=== PATIENT | female | born 1945 | race Caucasian/White ===

== ENCOUNTER 2020-06-09 15:15 | Outpatient (REF) | payer MEDICARE, OTHER, SELFPAY ==
--- NOTE | 2020-06-09 | MM_ITS ---
EXAMINATION: MM SCREENING DIGITAL BREAST TOMOSYNTHESIS, BILATERAL CLINICAL INFORMATION: Prior history left lumpectomy for breast cancer 2005 and right lumpectomy for breast cancer 1999. Due for yearly. COMPARISON: Mammography: 06/04/2019, 06/02/2018, 05/30/2017, 05/28/2016, 05/26/2015 TECHNIQUE: Digital breast tomosynthesis is performed in both the craniocaudal and mediolateral oblique views along with computer-aided detection (CAD). Synthesized 2D images are generated from the tomosynthesis. FINDINGS: There are scattered areas of fibroglandular density (ACR BI-RADS breast composition Category b). There are chronic post surgical changes in both breasts with bilateral scarring mid 12:30 o'clock left breast and posterior upper outer right breast. There is no significant mass or interval architectural abnormality or interval abnormal calcifications. There are no significant changes. IMPRESSION: No significant changes from prior studies. Bilateral surgical scarring. ASSESSMENT: BI-RADS 2: Benign RECOMMENDATION: Routine annual mammography screening. This patient's information was entered into a reminder system with a target due date for their next mammogram.
== END 2020-06-09 15:16 | disposition home or self-care (01) ==
LOC: HO.MAMMO 15:15
PROVIDERS: Visit Provider Internal Medicine Medical Oncology
DX: Z12.31 Encounter for screening mammogram for malignant neoplasm of breast (principal)
CPT/HCPCS: 77063; 77067; 78014

== ENCOUNTER 2020-06-14 12:43 | Outpatient (REF) | payer MEDICARE, OTHER, SELFPAY ==
--- NOTE | 2020-06-14 | MM_ITS ---
EXAMINATION: BONE DENSITOMETRY CLINICAL INDICATION: Osteopenia. COMPARISON: Previous BD dated 06/04/2019 and baseline BD dated 12/26/2007. TECHNIQUE: Using a [employer] DXA System (software version: 13.1) manufactured by [employer], dual-energy x-ray absorptiometry was performed of the lumbar spine and left hip. The images are of good technical quality. Summary results are attached. FINDINGS: AP SPINE L1-L4 (excluding L2): The data of L1-L4 has been changed to exclude the L2 vertebral body, because lumbar curvature and degenerative changes at this level may cause overestimation of lumbar spine density. Current: BMD 1.374 g/cm2, Z-score 2.6, T-score 1.7, normal, 4.3% decrease from previous, 9.1% increase from baseline (<5% change is not significant). Prior: BMD 1.436 g/cm2. Baseline: BMD 1.259 g/cm2. LEFT FEMUR, NECK: Current: BMD 0.782 g/cm2, Z-score -0.5, T-score -1.8, osteopenia. Prior: BMD 0.823 g/cm2. Baseline: BMD 0.986 g/cm2. LEFT FEMUR, TOTAL: Current: BMD 0.886 g/cm2, Z-score 0.1, T-score -1.0, normal, 4.6% decrease from previous, 18.9% decrease from baseline (<5% change is not significant). Prior: BMD 0.929 g/cm2. Baseline: BMD 1.092 g/cm2. IDENTIFIED RISK FACTORS: Early menopause, bilateral oophorectomy, osteoporosis, secondary osteoporosis, height loss, hysterectomy. HISTORY OF FRACTURE: None listed. MEDICATIONS: Calcium, vitamin D. IMPRESSION: 1. DIAGNOSIS: Osteopenia based on the lowest T-score value of -1.8 in the femoral neck applying World Health Organization criteria. 2. 10-YEAR FRACTURE RISK PREDICTION, FRAX: Major osteoporotic fracture (clinical spine, forearm, hip or shoulder) 11.3%. Hip fracture 2.4%. 3. Treatment Recommendations: NOF guidelines recommend consideration for treatment in postmenopausal women and men age 50 and older presenting with the following: -A hip or vertebral (clinical or morphometric) fracture. -T-score less than or equal to -2.5 at the femoral neck or spine after appropriate evaluation to exclude secondary causes. -Low bone mass at the hip or spine and a 10-year fracture probability by FRAX of greater than or equal to 3% for hip fracture or greater than or equal to 20% for major osteoporotic fracture based on the [place] adapted WHO algorithm. 4. Other Recommendations: All treatment decisions require clinical judgment and consideration of individual patient factors, including patient preferences, comorbidities, previous drug use, risk factors not captured in the FRAX model (e.g. frailty, falls, vitamin D deficiency, increased bone turnover, interval significant decline in bone density) and possible under or overestimation of fracture risk by FRAX. Additional medical evaluation for secondary cause of low bone mineral density may be appropriate. FUTURE SCAN RECOMMENDATION: People with diagnosed cases of osteoporosis or at high risk for fracture should have regular bone mineral density tests. For patients eligible for Medicare, routine testing is allowed once every 2 years. The testing frequency can be increased to one year for patients who have rapidly progressing disease, those who are receiving or discontinuing medical therapy to restore bone mass, or have additional risk factors.
== END 2020-06-14 12:44 | disposition home or self-care (01) ==
LOC: HO.MAMMO 12:43
PROVIDERS: PCP Family Medicine; Visit Provider Internal Medicine Medical Oncology
DX: Z13.820 Encounter for screening for osteoporosis (principal); M85.80 Other specified disorders of bone density and structure, unspecified site; Z78.0 Asymptomatic menopausal state; Z98.890 Other specified postprocedural states; Z79.899 Other long term (current) drug therapy
CPT/HCPCS: 77080

== ENCOUNTER 2020-06-30 11:07 | Outpatient (REF) | payer MEDICARE, OTHER, SELFPAY | END 2020-06-30 11:08 | disposition home or self-care (01) | LOC: HO.LNP 11:07 | PROVIDERS: Visit Provider Urology | DX: N39.0 Urinary tract infection, site not specified (principal) | CPT/HCPCS: 87086; 87088; 87186 ==

== ENCOUNTER 2020-07-12 15:43 | Outpatient (REF) | payer MEDICARE, OTHER, SELFPAY ==
--- NOTE | 2020-07-12 15:53 | CT_ITS ---
EXAMINATION: CT HEAD WITHOUT CONTRAST CLINICAL INFORMATION: Ataxia. Evaluate for subdural hematoma. COMPARISON: None TECHNIQUE: Contiguous axial imaging was performed from the skull base to vertex without intravenous administration of contrast. This CT examination was performed using dose optimization techniques as appropriate, variously including the following: *Automated exposure control *Adjustment of mA and/or kV according to patient size (this includes techniques or standardized protocols for targeted exams where dose is matched to indication/reason for exam; i.e. extremities or head) *Use of iterative reconstruction technique DLP: 870 mGy-cm FINDINGS: There is no evidence of an extra-axial collection. There is no evidence of intra-axial or extra-axial hemorrhage. The ventricles and extra-axial CSF spaces are appropriate. There is nonspecific periventricular white matter disease. No mass, mass effect or infarct is seen. Review of bone windows is normal. Visualized paranasal sinuses, mastoid air cells and middle ears are clear. There is a scalp hematoma over the left frontal bone. CT/CT head/brain wo con IMPRESSION: No acute intracranial findings. Scalp hematoma over the left frontal bone.
== END 2020-07-12 15:44 | disposition home or self-care (01) ==
LOC: HO.CT 15:43
PROVIDERS: Visit Provider Family Medicine
DX: R51.9 Headache, unspecified (principal); R27.0 Ataxia, unspecified
CPT/HCPCS: 70450

== ENCOUNTER → 2020-07-21 13:08 | Outpatient (BNVA) | payer MEDICARE, OTHER, SELFPAY | PROVIDERS: PCP Family Medicine; Referring Provider Family Medicine; Visit Provider Urology | DX: Z76.89 Persons encountering health services in other specified circumstances (principal) | CPT/HCPCS: Q3014 ==

== ENCOUNTER → 2020-07-26 15:22 | Outpatient (BNVA) | payer MEDICARE, OTHER, SELFPAY | PROVIDERS: PCP Family Medicine; Visit Provider Surgery | DX: Z86.000 Personal history of in-situ neoplasm of breast (principal) | CPT/HCPCS: 99212 ==

== ENCOUNTER 2020-07-30 10:40 | Outpatient (REF) | payer MEDICARE, OTHER, SELFPAY | END 2020-07-30 10:41 | disposition home or self-care (01) | LOC: HO.LNP 10:40 | PROVIDERS: Visit Provider Urology | DX: N39.0 Urinary tract infection, site not specified (principal) | CPT/HCPCS: 87086; 87088; 87186 ==

== ENCOUNTER 2020-08-23 10:19 | Outpatient (REF) | payer MEDICARE, OTHER, SELFPAY | END 2020-08-23 10:20 | disposition home or self-care (01) | LOC: HO.LNP 10:19 | PROVIDERS: Visit Provider Urology | DX: N39.0 Urinary tract infection, site not specified (principal) | CPT/HCPCS: 87086 ==

== ENCOUNTER 2020-09-06 09:42 | Outpatient (REF) | payer MEDICARE, OTHER, SELFPAY | END 2020-09-06 09:43 | disposition home or self-care (01) | LOC: HO.LNP 09:42 | PROVIDERS: Visit Provider Urology | DX: N39.0 Urinary tract infection, site not specified (principal) | CPT/HCPCS: 87086 ==

== ENCOUNTER → 2020-09-07 15:50 | Outpatient (BNV) | payer MEDICARE, OTHER, SELFPAY | PROVIDERS: PCP Family Medicine; Visit Provider Internal Medicine Medical Oncology | DX: C91.10 Chronic lymphocytic leukemia of B-cell type not having achieved remission (principal); C50.919 Malignant neoplasm of unspecified site of unspecified female breast | CPT/HCPCS: 99212; 99213; 99214 ==

== ENCOUNTER 2020-09-29 09:00 | Outpatient (REF) | payer MEDICARE, OTHER, SELFPAY | END 2020-09-29 09:01 | disposition home or self-care (01) | LOC: HO.MDS 09:00 | PROVIDERS: PCP Family Medicine; Visit Provider Internal Medicine Medical Oncology | DX: D80.1 Nonfamilial hypogammaglobulinemia (principal) | CPT/HCPCS: 96360; 96361; 96365; 96366; 96375; J1572; Q0163 ==

== ENCOUNTER 2020-10-12 08:25 | Outpatient (REF) | payer MEDICARE, OTHER, SELFPAY ==
[2020-10-12 09:48] LABS: Estimated Average Glucose 148 mg/dL; Hemoglobin A1c % 6.8 %
[2020-10-12 09:55] LABS: Alanine Aminotransferase 15 U/L (0-31); Anion Gap 15 (12-20); Blood Urea Nitrogen 18 mg/dL (9-16); Carbon Dioxide 27 mmol/L (22-29); Chloride 101 mmol/L (96-108); Cholesterol 163 mg/dL; Estimated Glomerular Filt Rate 53; Glucose Fasting 178 mg/dL (60-99); HDL Cholesterol 40 mg/dL; LDL Cholesterol Calculated 86 mg/dl; Potassium 4.6 mmol/L (3.3-5.1); Sodium 138 mmol/L (135-145); Triglycerides 188 mg/dL
[2020-10-12 13:37] LABS: Creatinine Urine 102.58 mg/dL; Microalbum/Creatinine Ratio Ur 22.4 ug/mg cr
== END 2020-10-12 08:26 | disposition home or self-care (01) ==
LOC: HO.LAB 08:25
PROVIDERS: PCP Family Medicine; Visit Provider Family Medicine
DX: I10 Essential (primary) hypertension (principal); E11.9 Type 2 diabetes mellitus without complications; E78.00 Pure hypercholesterolemia, unspecified; Z79.899 Other long term (current) drug therapy
CPT/HCPCS: 36415; 80051; 80061; 82043; 82550; 82565; 82947; 83036; 84460; 84520

== ENCOUNTER 2020-10-20 10:52 | Outpatient (REF) | payer MEDICARE, OTHER, SELFPAY ==
--- NOTE | ~2020-10-20 | XR_ITS ---
EXAMINATION: XR CHEST CLINICAL INFORMATION: SOB. COMPARISON: None TECHNIQUE: 2 views of the chest were obtained. FINDINGS: No significant abnormality is noted involving the heart, lungs, mediastinum, bony thorax or soft tissues. XR/XR chest 2V IMPRESSION: Unremarkable chest examination.
== END 2020-10-20 10:53 | disposition home or self-care (01) ==
LOC: HO.XRAY 10:52
PROVIDERS: PCP Family Medicine; Visit Provider Family Medicine
DX: R06.02 Shortness of breath (principal)
CPT/HCPCS: 71046

== ENCOUNTER → 2020-10-21 13:49 | Outpatient (BNVA) | payer MEDICARE, OTHER, SELFPAY | PROVIDERS: PCP Family Medicine; Visit Provider Urology | DX: Z13.89 Encounter for screening for other disorder (principal) | CPT/HCPCS: Q3014 ==

== ENCOUNTER 2020-10-28 09:14 | Outpatient (REF) | payer MEDICARE, OTHER, SELFPAY | END 2020-10-28 09:15 | disposition home or self-care (01) | LOC: HO.MDS 09:14 | PROVIDERS: PCP Family Medicine; Visit Provider Internal Medicine Medical Oncology | DX: D80.1 Nonfamilial hypogammaglobulinemia (principal) | CPT/HCPCS: 96361; 96365; 96366; 96375; J1572; Q0163 ==

== ENCOUNTER 2020-12-02 09:25 | Outpatient (REF) | payer MEDICARE, OTHER, SELFPAY | END 2020-12-02 09:26 | disposition home or self-care (01) | LOC: HO.MDS 09:25 | PROVIDERS: PCP Family Medicine; Visit Provider Internal Medicine Medical Oncology | DX: D80.1 Nonfamilial hypogammaglobulinemia (principal) | CPT/HCPCS: 96360; 96361; 96365; 96366; 96375; J1572; Q0163 ==

== ENCOUNTER 2020-12-19 18:09 | Outpatient (REF) | payer MEDICARE, OTHER, SELFPAY | END 2020-12-19 18:10 | disposition home or self-care (01) | LOC: HO.LNP 18:09 | PROVIDERS: Visit Provider Urology | DX: N39.0 Urinary tract infection, site not specified (principal) | CPT/HCPCS: 87086; 87088; 87186 ==

== ENCOUNTER 2020-12-30 09:24 | Outpatient (REF) | payer MEDICARE, OTHER, SELFPAY | END 2020-12-30 09:25 | disposition home or self-care (01) | LOC: HO.MDS 09:24 | PROVIDERS: PCP Family Medicine; Visit Provider Internal Medicine Medical Oncology | DX: D80.1 Nonfamilial hypogammaglobulinemia (principal) | CPT/HCPCS: 87086; 87088; 87186; 96360; 96361; 96365; 96366; 96375; J1572; Q0163 ==

== ENCOUNTER 2021-02-02 08:58 | Outpatient (REF) | payer MEDICARE, OTHER, SELFPAY | END 2021-02-02 08:59 | disposition home or self-care (01) | LOC: HO.MDS 08:58 | PROVIDERS: PCP Family Medicine; Visit Provider Internal Medicine Medical Oncology | DX: D80.1 Nonfamilial hypogammaglobulinemia (principal) | CPT/HCPCS: 96360; 96361; 96365; 96366; 96375; J1572; Q0163 ==

== ENCOUNTER 2021-02-13 08:48 | Outpatient (REF) | payer MEDICARE, OTHER, SELFPAY | END 2021-02-13 08:49 | disposition home or self-care (01) | LOC: HO.LNP 08:48 | PROVIDERS: Visit Provider Urology | DX: Z13.89 Encounter for screening for other disorder (principal) | CPT/HCPCS: 87086 ==

== ENCOUNTER 2021-02-14 10:28 | Outpatient (REF) | payer MEDICARE, OTHER, SELFPAY | END 2021-02-14 10:29 | disposition home or self-care (01) | LOC: HO.LNP 10:28 | PROVIDERS: Visit Provider Urology | DX: N39.0 Urinary tract infection, site not specified (principal) | CPT/HCPCS: 87086; 87088; 87186 ==

== ENCOUNTER 2021-03-02 08:58 | Outpatient (REF) | payer MEDICARE, OTHER, SELFPAY | END 2021-03-02 08:59 | disposition home or self-care (01) | LOC: HO.MDS 08:58 | PROVIDERS: PCP Family Medicine; Visit Provider Internal Medicine Medical Oncology | DX: D80.1 Nonfamilial hypogammaglobulinemia (principal) | CPT/HCPCS: 96360; 96365; 96366; 96374; J1572; Q0163 ==

== ENCOUNTER 2021-03-07 10:58 | Outpatient (REF) | payer MEDICARE, OTHER, SELFPAY | END 2021-03-07 10:59 | disposition home or self-care (01) | LOC: HO.LNP 10:58 | PROVIDERS: Visit Provider Urology | DX: N39.0 Urinary tract infection, site not specified (principal) | CPT/HCPCS: 87086; 87088; 87186 ==

== ENCOUNTER 2021-03-23 14:51 | Outpatient (REF) | payer MEDICARE, OTHER, SELFPAY ==
[2021-03-23 17:17] LABS: Hematocrit 35.6 % (37-47); Mean Corpuscular HGB Conc 30.9 g/dl (31.0-35.0); Mean Corpuscular Hemoglobin 26.2 pg (27.0-33.0); Mean Corpuscular Volume 84.8 fL (80-98); Mean Platelet Volume 11.6 fL (9.4-12.3); Platelet Count 170 X10*3/uL (160-400); Red Cell Distribution Width 15.8 % (11.0-16.0); White Blood Count 8.7 X10*3/uL (4.8-10.8)
== END 2021-03-23 14:52 | disposition home or self-care (01) ==
LOC: HO.LAB 14:51
PROVIDERS: PCP Family Medicine; Visit Provider Nurse Practitioner Family
DX: K21.9 Gastro-esophageal reflux disease without esophagitis (principal); D64.9 Anemia, unspecified; Z12.11 Encounter for screening for malignant neoplasm of colon
CPT/HCPCS: 36415; 85027; 99202

== ENCOUNTER 2021-03-24 09:14 | Outpatient (REF) | payer MEDICARE, OTHER, SELFPAY | END 2021-03-24 09:15 | disposition home or self-care (01) | LOC: HO.LNP 09:14 | PROVIDERS: Visit Provider Nurse Practitioner Family | DX: K21.9 Gastro-esophageal reflux disease without esophagitis (principal) | CPT/HCPCS: 87338 ==

== ENCOUNTER → 2021-04-05 09:32 | Outpatient (BNVA) | payer MEDICARE, OTHER, SELFPAY | PROVIDERS: Visit Provider Nurse Practitioner Family | DX: Z13.89 Encounter for screening for other disorder (principal) | CPT/HCPCS: Q3014 ==

== ENCOUNTER 2021-04-11 09:14 | Outpatient (REF) | payer MEDICARE, OTHER, SELFPAY | END 2021-04-11 09:15 | disposition home or self-care (01) | LOC: HO.LNP 09:14 | PROVIDERS: Visit Provider Urology | DX: N39.0 Urinary tract infection, site not specified (principal) | CPT/HCPCS: 87086 ==

== ENCOUNTER → 2021-04-19 14:05 | Outpatient (BNVA) | payer MEDICARE, OTHER, SELFPAY | PROVIDERS: Visit Provider Internal Medicine | DX: Z01.810 Encounter for preprocedural cardiovascular examination (principal); R07.2 Precordial pain; R06.02 Shortness of breath; I10 Essential (primary) hypertension; E11.8 Type 2 diabetes mellitus with unspecified complications; E78.5 Hyperlipidemia, unspecified | CPT/HCPCS: 93005; 99202 ==

== ENCOUNTER → 2021-04-20 13:32 | Outpatient (BNVA) | payer MEDICARE, OTHER, SELFPAY | PROVIDERS: Visit Provider Urology | CPT/HCPCS: Q3014 ==

== ENCOUNTER → 2021-05-01 09:14 | Outpatient (REF) | payer MEDICARE, OTHER, SELFPAY ==
--- NOTE | ~2021-05-01 | NM_ITS ---
Myocardial perfusion study Indication: Shortness of breath evaluate for myocardial ischemia Technique: The patient was brought in for a Lexiscan perfusion study on 05/01/2021. Patient performed low-level exercise and was injected 0.4 mg of Lexiscan intravenously. Within a minute of injection, 30 mCi of sestamibi was given intravenously. Images were obtained using the SPECT gamma camera interlaced with the gating device. Images were obtained in supine position. Resting perfusion study was performed on 05/02/2021. Patient was administered 30 mCi of sestamibi intravenously at rest. Images were then obtained in supine position. Images obtained with and without CT attenuation. Total DLP 117 mGy-cm. Images were processed with the software and compared side to side in short axis, horizontal long axis and vertical long axis views. Findings: The stress perfusion study showed nonattenuated images show mildly reduced uptake in the inferior wall more prominent in the inferoapical wall of the LV myocardium. Remainder of the LV myocardium is normally perfused. Attenuation corrected images show moderately reduced uptake in the apex of the LV myocardium.. The gated study shows normal LV systolic function with calculated LVEF of 61%. LV cavity is normal in size. The gated study shows normal systolic wall thickening and contraction of segments. Resting study shows nontender images show partial improvement in uptake in the inferoapical wall of the LV myocardium. Attenuation corrected images show mildly reduced uptake in the apex of the LV myocardium. Gating at rest reveals systolic wall motion with ejection fraction at 56%. The findings are consistent with equivocal for possible apical ischemia.. NM/NM cardiolite stress test Impression: 1. Myocardial perfusion imaging study shows equivocal apical ischemia 2. Gated LVEF is 61% 3. Transient ischemic dilatation not present EKG is nondiagnostic for ischemia
--- NOTE | 2021-05-01 09:36 | CA_ITS ---
Acquisition Time: 2021-05-01 09:33:36 Total Exercise Time: 00:02:00 Test Indications: CP, SOB Medications: SEE CHART Protocol: LEXISCAN Max HR: 095 BPM 65% of Pred: 146 BPM Max BP: 178/070 mmHG Max Work Load: 1.0 METS Pharmacological stress test with Lexiscan injection, while sitting and kicking her legs, without anginal symptoms, without arrythmia, with normotensive response to injection, with nondiagnostic EKG for ischemia. In recovery there were two brief pauses: 1.68 and 1.8 sec. She was given Aminophylline 75mg IVP to reverse Lexiscan. Nuclear images pending. Test reviewed with Dr Cameron. Referred By: Gerardo Agustin Overread By: ROSEMARIE LUEVANO
== END ==
LOC: HO.CARD 09:14
PROVIDERS: PCP Family Medicine; Visit Provider Internal Medicine
DX: Z01.810 Encounter for preprocedural cardiovascular examination (principal); I20.9 Angina pectoris, unspecified; R06.02 Shortness of breath
CPT/HCPCS: 78452; 93017; A9500; J0280; J2785

== ENCOUNTER 2021-05-08 11:15 | Outpatient (REF) | payer MEDICARE, OTHER, SELFPAY | END 2021-05-08 11:16 | disposition home or self-care (01) | LOC: HO.LNP 11:15 | PROVIDERS: Visit Provider Urology | DX: N39.0 Urinary tract infection, site not specified (principal) | CPT/HCPCS: 87086; 87088; 87186 ==

== ENCOUNTER 2021-05-16 16:37 | Outpatient (REF) | payer MEDICARE, OTHER, SELFPAY | END 2021-05-16 16:38 | disposition home or self-care (01) | LOC: HO.LAB 16:37 | PROVIDERS: PCP Family Medicine; Visit Provider Urology | DX: N39.0 Urinary tract infection, site not specified (principal) | CPT/HCPCS: 87086; 87088; 87186 ==

== ENCOUNTER → 2021-05-24 13:37 | Outpatient (REF) | payer MEDICARE, OTHER, SELFPAY ==
--- NOTE | 2021-05-24 13:40 | CA_ITS ---
Transthoracic Echocardiogram Patient (Last, First, Middle): Kaitlin Ortiz, Gender: Female Date of : 1945 Age: 75 Procedure Date: 05/24/2021 Procedure Type: Transthoracic Echocardiogram Location: OP Height: 165.1 cm Weight: 92.53 kg BSA: 1.99 m2 Heart Rate: bpm BP: 175 / 82 mmHg Manager Managed Backup Services: YANELY/veena Referring MD: Gerardo Agustin MD Window Shade Installer: Kirill Morales MD Symptoms: Z01.810 - Encounter for preprocedural cardiovascular exam... Study Quality: Fair ECG Rhythm: Sinus Conclusions: - 1. Normal LV systolic function mild LVH and moderate asymmetric septal hypertrophy with impaired relaxation 2. Mild aortic regurgitation 3. Normal RV systolic pressure 4. No gross pericardial effusion Findings Left Ventricle Normal left ventricular size and systolic function. There is mildly increased left ventricular wall thickness. The visually estimated ejection fraction is between 55-60%. Spectral Doppler is indicative of an impaired relaxation filling pattern. E/E prime ratio is between 8 and 15 consistent with indeterminate filling pressures. There is moderate septal asymmetric hypertrophy. Right Ventricle Normal right ventricular cavity size and systolic function. Atria The left atrium is mildly dilated. Interatrial shunt cannot be excluded. The right atrium is likely dilated. Aortic Valve There is mild calcification of the aortic valve. There is mild thickening of the aortic valve. There is no aortic valve stenosis. There is mild aortic valve regurgitation. Mitral Valve There is mild anterior and posterior mitral leaflet thickening. There is mild mitral annular calcification. There is trace mitral valve regurgitation. There is no mitral valve stenosis. Pulmonic Valve The pulmonic valve was not well visualized. Tricuspid Valve Likely normal tricuspid valve structure and function. There is trace tricuspid valve regurgitation. The right ventricular systolic pressure is normal. The right ventricular systolic pressure is 8 mmHg. Normal right atrial pressure. There is no evidence of pulmonary hypertension. Great Vessels All visible segments of the aorta are normal in size. The pulmonary artery was not well visualized. Venous The inferior vena cava is normal in size and collapses greater than 50% with inspiration. Pericardium/Pleural There is no evidence of pericardial effusion. Prior Study Comparison No significant change compared to prior study dated: 08/20/2016. Measurements 2D Linear Measurements IVSd: 1.59 0.6-0.9/0.6-1.0 cm LVIDd: 4.35 3.9-5.3/4.2-5.9 cm LVIDd Index: 2.19 2.4-3.2/2.2-3.1 cm/m2 LVPWd: 1.19 0.7-1.1 cm Ao Root: 3.00 2.1-3.5 cm LV Mass: 291.36 67-162/88-224 g LV Mass Index: 146.41 43-95/49-115 g/m2 LVOT Diam: 2.10 3.0+(-)1.3 cm 2D Systolic Function EF 4C: 59.60 >55% EF 2C: 59.10 >55% EF BiP: 58.80 >55% Mitral Valve MV Pk E: 0.85 MV PK A: 1.39 MV Decel Time: 332.00 E/A: 0.60 E'Lateral: 6.64 E'Medial: 6.96 E/E' Med: 12.20 E/E' Lat: 12.80 PHT: 97.00 MVA PHT: 2.27 Decel Stanley: 2.56 Aortic Valve AoV Pk Rolly: 2.11 AoV Mn Rolly: 1.50 AoV VTI: 0.44 AoV Pk Grad: 18.00 Aov Mn Grad: 10.00 INGRID Cont.VTI: 1.73 LVOT LVOT Pk Rolly: 1.03 LVOT Mn Rolly: 0.72 LVOT VTI: 0.22 LVOT Pk Grad: 4.00 LVOT Mn Grad: 2.00 LVOT Diam: 2.10 LVOT Area: 3.46 Diastolic Function MV Pk E: 0.85 MV Pk A: 1.39 E/A: 0.60 E'Medial: 6.96 E/E' Med: 12.20 E' Laterial: 6.64 E/E' Lat: 12.80 Tricuspid Valve TR Pk Rolly: 1.14 TR Pk Grad: 5.00 RA Press: 3.00 RVSP: 8.00 Great Vessels Aorta Ao Root-2D: 3.00 2.0-3.7 cm Ao Asc: 3.30 2.1-3.4 cm Updated in Other Vendor System with Status of Final Kirill Morales MD electronically signed on 05/25/2021 8:49:32 AM with status of Final
== END ==
LOC: HO.CARD 13:37
PROVIDERS: Visit Provider Internal Medicine
DX: Z01.810 Encounter for preprocedural cardiovascular examination (principal)
CPT/HCPCS: 93306

== ENCOUNTER → 2021-05-31 12:48 | Outpatient (BNVA) | payer MEDICARE, OTHER, SELFPAY | PROVIDERS: PCP Family Medicine; Visit Provider Internal Medicine | DX: Z01.810 Encounter for preprocedural cardiovascular examination (principal); I42.2 Other hypertrophic cardiomyopathy; I10 Essential (primary) hypertension; E11.8 Type 2 diabetes mellitus with unspecified complications; E78.5 Hyperlipidemia, unspecified; R94.39 Abnormal result of other cardiovascular function study | CPT/HCPCS: 99212 ==

== ENCOUNTER → 2021-06-16 10:35 | Outpatient (BNVA) | payer MEDICARE, OTHER, SELFPAY | PROVIDERS: PCP Family Medicine; Visit Provider Urology | DX: R33.9 Retention of urine, unspecified (principal) | CPT/HCPCS: Q3014 ==

== ENCOUNTER 2021-06-27 13:46 | Outpatient (REF) | payer MEDICARE, OTHER, SELFPAY ==
--- NOTE | ~2021-06-27 | MM_ITS ---
EXAMINATION: MM SCREENING DIGITAL BREAST TOMOSYNTHESIS, BILATERAL CLINICAL INFORMATION: Left lumpectomy for breast cancer, 2006. Right lumpectomy for breast cancer, 1999. Due for yearly. COMPARISON: Mammography: 06/09/2020, 06/04/2019, 06/02/2018, 05/30/2017 TECHNIQUE: Digital breast tomosynthesis is performed in both the craniocaudal and mediolateral oblique views along with computer-aided detection (CAD). Synthesized 2D images are generated from the tomosynthesis. FINDINGS: There are scattered areas of fibroglandular density (ACR BI-RADS breast composition Category b). There are post therapy changes in both breasts with stable scarring. Neither breast shows interval mass or interval architectural abnormality or developing density. Again, there has benign coarse calcifications in the scar left breast 12:00 position. Scattered benign coarse and vascular calcifications are present in each breast. No significant changes. MM/MM tomosynthesis screening BI IMPRESSION: No significant changes from prior exams. Bilateral post therapy changes. ASSESSMENT: BI-RADS 2: Benign RECOMMENDATION: Routine annual mammography screening. This patient's information was entered into a reminder system with a target due date for their next mammogram.
== END 2021-06-27 13:47 | disposition home or self-care (01) ==
LOC: HO.MAMMO 13:46
PROVIDERS: Visit Provider Internal Medicine Medical Oncology
DX: Z12.31 Encounter for screening mammogram for malignant neoplasm of breast (principal)
CPT/HCPCS: 77063; 77067

== ENCOUNTER → 2021-07-07 11:28 | Outpatient (BNVA) | payer MEDICARE, OTHER, SELFPAY | PROVIDERS: PCP Family Medicine; Visit Provider Nurse Practitioner Family | DX: Z12.11 Encounter for screening for malignant neoplasm of colon (principal); D64.9 Anemia, unspecified; K21.9 Gastro-esophageal reflux disease without esophagitis | CPT/HCPCS: 99212 ==

== ENCOUNTER 2021-07-10 13:02 | Outpatient (REF) | payer MEDICARE, OTHER, SELFPAY ==
[2021-07-10 14:08] LABS: MANUAL DIFF FLAG NO
[2021-07-10 14:18] LABS: Basophils Absolute Auto 0.1 X10*3/uL (0.0-0.2); Basophils Percent Auto 0.5 % (0-2); Eosinophils Absolute Auto 0.1 X10*3/uL (0.0-0.4); Eosinophils Percent Auto 1.3 % (0-4); Hematocrit 33.2 % (37.0-47.0); Hemoglobin 10.4 g/dl (12.0-16.0); Imm Gran Abs Auto 0.25 X10*3/uL (0.00-0.03); Imm Gran Pct Auto 2.6 % (0.0-0.4); Lymphocytes Absolute Auto 2.7 X10*3/uL (1.2-4.9); Lymphocytes Percent Auto 28.1 % (20-40); Mean Corpuscular HGB Conc 31.3 g/dl (31.0-35.0); Mean Corpuscular Hemoglobin 26.3 pg (27.0-33.0); Mean Corpuscular Volume 84.1 fL (80.0-98.0); Mean Platelet Volume 11.4 fL (9.4-12.3); Monocytes Absolute Auto 0.9 X10*3/uL (0.1-1.2); Monocytes Percent Auto 9.7 % (2-11); Neutrophils Absolute Auto 5.48 x10*3/uL (2.0-8.3); Neutrophils Percent Auto 57.8 % (45-73); Platelet Count 158 X10*3/uL (160-400); Red Blood Count 3.95 X10*6/uL (4.20-5.50); Red Cell Distribution Width 13.8 % (11.0-16.0); White Blood Count 9.5 X10*3/uL (4.8-10.8)
[2021-07-10 14:24] LABS: Prothrombin Time 11.5 SEC (9.9-13.0)
[2021-07-10 14:48] LABS: Anion Gap 12 (12-20); Blood Urea Nitrogen 20 mg/dL (9-16); Calcium 9.7 mg/dL (8.4-10.2); Carbon Dioxide 29 mmol/L (22-29); Chloride 103 mmol/L (96-108); Estimated Glomerular Filt Rate 43; Glucose Random 155 mg/dL (60-115); Sodium 139 mmol/L (135-145)
== END 2021-07-10 13:03 | disposition home or self-care (01) ==
LOC: HO.LAB 13:02
PROVIDERS: PCP Family Medicine; Visit Provider Internal Medicine
DX: Z01.810 Encounter for preprocedural cardiovascular examination (principal); E11.8 Type 2 diabetes mellitus with unspecified complications; I10 Essential (primary) hypertension; E78.5 Hyperlipidemia, unspecified; I42.2 Other hypertrophic cardiomyopathy; I25.10 Atherosclerotic heart disease of native coronary artery without angina pectoris; R94.39 Abnormal result of other cardiovascular function study
CPT/HCPCS: 36415; 80048; 85025; 85610; 99212

== ENCOUNTER 2021-07-24 09:54 | Outpatient (REF) | payer MEDICARE, OTHER, SELFPAY | END 2021-07-24 09:55 | disposition home or self-care (01) | LOC: HO.LNP 09:54 | PROVIDERS: Visit Provider Urology | DX: N39.0 Urinary tract infection, site not specified (principal) | CPT/HCPCS: 87086; 87088; 87186 ==

== ENCOUNTER → 2021-07-27 11:23 | Outpatient (BNVA) | payer MEDICARE, OTHER, SELFPAY | PROVIDERS: PCP Family Medicine; Visit Provider Urology | CPT/HCPCS: Q3014 ==

== ENCOUNTER → 2021-08-01 13:24 | Outpatient (BNVA) | payer MEDICARE, OTHER, SELFPAY | PROVIDERS: PCP Family Medicine; Visit Provider Internal Medicine | DX: Z01.810 Encounter for preprocedural cardiovascular examination (principal); I25.10 Atherosclerotic heart disease of native coronary artery without angina pectoris; I10 Essential (primary) hypertension; I42.2 Other hypertrophic cardiomyopathy; E11.8 Type 2 diabetes mellitus with unspecified complications; E78.5 Hyperlipidemia, unspecified | CPT/HCPCS: 99212 ==

== ENCOUNTER 2021-08-31 12:53 | Outpatient (REF) | payer MEDICARE, OTHER, SELFPAY | END 2021-08-31 12:54 | disposition home or self-care (01) | LOC: HO.LNP 12:53 | PROVIDERS: Visit Provider Urology | DX: N39.0 Urinary tract infection, site not specified (principal) | CPT/HCPCS: 87086; 87088; 87186 ==

== ENCOUNTER 2021-09-04 09:26 | Day surgery (SDC) | payer MEDICARE, OTHER, SELFPAY ==
[2021-08-29 16:00] VITALS: BMI 35.6
--- NOTE | 2021-08-31 10:50 | P.CONAN_ITS ---
Documented by User: Tabby Garcia NP 08/31/21 10:54 HPI - Anesthesia Eval Consult details Narrative: 76yo F for Upper Endoscopy and Colonoscopy Cardiac cleared at [facility]. Cath 07/2021 Cardiac catheterization reviewed 70% mid-LAD stenosis; 70% OM 1 and 60% proximal RCA stenosis.? At this time, for medical management. *Multiple Med Allergies* PMFSH Active Problems Active Problems: All Active Problems (Updated 08/18/21 @ 13:42 by Armen Worthy MD) Neurogenic urinary bladder disorder (Acute) Atherosclerotic cardiovascular disease (Acute) Complicated urinary tract infection (Acute) Urinary retention with incomplete bladder emptying (Acute) Breast cancer (Acute) CLL (chronic lymphocytic leukemia) (Acute) Anemia (Acute) Anemia (Acute) Preoperative cardiovascular examination (Acute) Precordial chest pain (Acute) Shortness of breath (Acute) Type 2 diabetes mellitus with unspecified complications (Acute) Essential hypertension (Acute) Hyperlipidemia, unspecified (Acute) Diabetes with neurologic complications (Acute) Abnormal nuclear cardiac imaging test (Acute) Asymmetric septal hypertrophy (Acute) Abnormal myocardial perfusion study (Acute) Past Medical History Medical History Arthritis CLL (chronic lymphocytic leukemia) Diabetes mellitus Fibromyalgia History of bilateral breast cancer History of blood transfusion History of CVA (cerebrovascular accident) History of numbness Hypercholesterolemia Hypertension PONV (postoperative nausea and vomiting) Seasonal allergies Self-catheterizes urinary bladder Sleep apnea Family History Family History Other Breast cancer Heart disease Lung cancer Pancreatic cancer Surgical History Surgical History History of back surgery History of biopsy of bladder History of bladder repair surgery History of total hysterectomy Hx of colonoscopy S/P breast biopsy, right Social History Social History Alcohol intake: never Patient Tobacco Use Status: Never used Tobacco Use of substances other than those prescribed or required for medical reasons: No Are you DNR?: No Advance Directives: No Advance Directives Information Provided: Yes Meds Allergies Allergy/AdvReac Type Severity Reaction Status Date / Time amoxicillin [AMOXICILLIN] Allergy Severe stroke, Verified 08/01/21 13:27 blood clots ciprofloxacin [From CIPRO] Allergy Severe ANAPHYLAXIS Verified 08/01/21 13:27 Iodinated Contrast Media Allergy Severe HIVES Verified 08/01/21 13:27 [IV DYE, IODINE CONTAINING CONTRAST ] levofloxacin Allergy Severe Anaphylaxis Verified 08/01/21 13:27 liraglutide Allergy Severe Headache Verified 08/01/21 13:27 Penicillins Allergy Severe stroke, Verified 08/01/21 13:27 blood clots phenazopyridine [Pyridium] Allergy Severe Anaphylaxis Verified 08/01/21 13:27 celecoxib [From CELEBREX] Allergy Intermediate HIVES Verified 08/01/21 13:27 fluticasone [Advair Diskus] Allergy Intermediate Anxiety Verified 08/01/21 13:27 latex Allergy Intermediate Hives Verified 08/01/21 13:27 salmeterol [Advair Diskus] Allergy Intermediate Anxiety Verified 08/01/21 13:27 Tetanus Vaccines and Toxoid Allergy Intermediate Swelling Verified 08/01/21 13:27 cephalexin [Keflex] Allergy Mild Nausea Verified 08/01/21 13:27 Home Medications Medication Instructions Recorded Confirmed Last Taken Type citalopram 20 mg tablet 20 mg PO DAILY 07/21/20 08/18/21 Unknown History cyclobenzaprine 5 mg tablet 5 mg PO BEDTIME 07/21/20 08/18/21 Unknown History duloxetine 60 mg capsule,delayed 60 mg PO DAILY 07/21/20 08/18/21 Unknown History release spironolactone 25 mg tablet 25 mg PO DAILY 07/21/20 08/18/21 Unknown History ibrutinib 420 mg tablet (Imbruvica) 420 mg PO DAILY 09/07/20 08/18/21 Unknown History amlodipine 10 mg tablet 10 mg PO DAILY 03/23/21 08/18/21 Unknown History metformin 1,000 mg tablet 1,000 mg PO BID 04/19/21 08/18/21 Unknown History carvedilol 25 mg tablet 25 mg PO BID 05/31/21 08/18/21 Unknown History Magic Mouthwash 10 ml PO BID-TID PRN 06/21/21 08/18/21 Unknown History Diphen/Lido/Antacid 1:1:1 240 mL suspension ondansetron HCl 4 mg tablet 4 mg PO Q8H PRN 06/21/21 08/18/21 Unknown History (Zofran) fluocinonide 0.05 % topical cream 1 appl TOPICAL BID PRN 07/27/21 08/18/21 Unknown History pregabalin 150 mg capsule 150 mg PO BID 07/27/21 08/18/21 Unknown History sulindac 150 mg tablet 150 mg PO BID 07/27/21 08/18/21 Unknown History nitrofurantoin 100 mg PO BID PRN 08/18/21 08/18/21 Unknown History monohydrate/macrocrystals 100 mg capsule Exam Exam Date and Time: August 31, 2021 1051 Height,Weight and Vital Signs: Height 5 ft 4 in Weight 94.347 kg Pertinent Lab Results Pertinent Lab Results: Laboratory Tests 08/18/21 08/18/21 13:14 13:14 WBC 8.1 Hgb 10.0 L Hct 32.0 L Plt Count 131 L Sodium 138 Potassium 4.5 Chloride 101 Carbon Dioxide 29 BUN 19 H Creatinine 1.28 Narrative Narrative: EKG 04/2021 sinus rhythm at 72/Min; leftward axis; nonspecific ST-T changes NM cardiolite stress test 04/2021 Impression: ? 1.? Myocardial perfusion imaging study shows equivocal apical ischemia 2.? Gated LVEF is 61% 3. Transient ischemic dilatation not present ? EKG is nondiagnostic for ischemia ? ECHO 05/2021 Conclusions: - 1. Normal LV systolic function mild LVH and moderate asymmetric septal hypertrophy with impaired relaxation? 2. Mild aortic regurgitation ? 3. Normal RV systolic pressure ? 4. No gross pericardial effusion ? Assessment and Plan Assessment Anesthesia Assessment: Chart Reviewed Documented by User: Nick Mario 09/04/21 09:53 [facility] Past Medical History Medical History Arthritis CLL (chronic lymphocytic leukemia) Diabetes mellitus Fibromyalgia History of bilateral breast cancer History of blood transfusion History of CVA (cerebrovascular accident) History of numbness Hypercholesterolemia Hypertension PONV (postoperative nausea and vomiting) Seasonal allergies Self-catheterizes urinary bladder Sleep apnea Family History Family History Other Breast cancer Heart disease Lung cancer Pancreatic cancer Family history of problems with anesthesia: No Surgical History Surgical History History of back surgery History of biopsy of bladder History of bladder repair surgery History of total hysterectomy Hx of colonoscopy S/P breast biopsy, right History of Problems with Anesthesia: Yes (Ponv ) Social History Social History Alcohol intake: never Patient Tobacco Use Status: Never used Tobacco Use of substances other than those prescribed or required for medical reasons: No Are you DNR?: No Advance Directives: No Advance Directives Information Provided: Yes Meds Allergies Allergy/AdvReac Type Severity Reaction Status Date / Time amoxicillin [AMOXICILLIN] Allergy Severe stroke, Verified 08/01/21 13:27 blood clots ciprofloxacin [From CIPRO] Allergy Severe ANAPHYLAXIS Verified 08/01/21 13:27 Iodinated Contrast Media Allergy Severe HIVES Verified 08/01/21 13:27 [IV DYE, IODINE CONTAINING CONTRAST ] levofloxacin Allergy Severe Anaphylaxis Verified 08/01/21 13:27 liraglutide Allergy Severe Headache Verified 08/01/21 13:27 Penicillins Allergy Severe stroke, Verified 08/01/21 13:27 blood clots phenazopyridine [Pyridium] Allergy Severe Anaphylaxis Verified 08/01/21 13:27 celecoxib [From CELEBREX] Allergy Intermediate HIVES Verified 08/01/21 13:27 fluticasone [Advair Diskus] Allergy Intermediate Anxiety Verified 08/01/21 13:27 latex Allergy Intermediate Hives Verified 08/01/21 13:27 salmeterol [Advair Diskus] Allergy Intermediate Anxiety Verified 08/01/21 13:27 Tetanus Vaccines and Toxoid Allergy Intermediate Swelling Verified 08/01/21 13:27 cephalexin [Keflex] Allergy Mild Nausea Verified 08/01/21 13:27 Home Medications Medication Instructions Recorded Confirmed Last Taken Type citalopram 20 mg tablet 20 mg PO DAILY 07/21/20 08/18/21 Unknown History cyclobenzaprine 5 mg tablet 5 mg PO BEDTIME 07/21/20 08/18/21 Unknown History duloxetine 60 mg capsule,delayed 60 mg PO DAILY 07/21/20 08/18/21 Unknown History release spironolactone 25 mg tablet 25 mg PO DAILY 07/21/20 08/18/21 Unknown History ibrutinib 420 mg tablet (Imbruvica) 420 mg PO DAILY 09/07/20 08/18/21 Unknown History amlodipine 10 mg tablet 10 mg PO DAILY 03/23/21 08/18/21 Unknown History metformin 1,000 mg tablet 1,000 mg PO BID 04/19/21 08/18/21 Unknown History carvedilol 25 mg tablet 25 mg PO BID 05/31/21 08/18/21 Unknown History Magic Mouthwash 10 ml PO BID-TID PRN 06/21/21 08/18/21 Unknown History Diphen/Lido/Antacid 1:1:1 240 mL suspension ondansetron HCl 4 mg tablet 4 mg PO Q8H PRN 06/21/21 08/18/21 Unknown History (Zoan) fluocinonide 0.05 % topical cream 1 appl TOPICAL BID PRN 07/27/21 08/18/21 Unknown History pregabalin 150 mg capsule 150 mg PO BID 07/27/21 08/18/21 Unknown History sulindac 150 mg tablet 150 mg PO BID 07/27/21 08/18/21 Unknown History nitrofurantoin 100 mg PO BID PRN 08/18/21 08/18/21 Unknown History monohydrate/macrocrystals 100 mg capsule Exam Airway Mallampati Class: II TM Dist: >3cm Neck ROM: Limited Denture: Upper and Lower Loose/Missing/Broken Teeth: Yes Heart: rrr Lungs: bl breath sounds Assessment and Plan Final Anesthetic Review Family History of Problems with Anesthesia: No History of Problems with Anesthesia: Yes (Ponv ) NPO: Yes ASA Class: III Final Preanesthetic Review: Vishnu Risks/Benef Reviewed Patient Risk: High Procedure Risk: Intermediate Anesthetic Plan Anesthetic Plan: MAC: Disposition: Standard PACU
--- NOTE | 2021-09-04 09:30 | MHC.SHP ---
Pre-Procedural Eval Section A Date of Service: 09/04/21 Section B Chief Complaint: Anemia ,Unspecified Details of Present Illness: mother with CRC Relevant Family History (Specify if Yes): Yes Relevant Social History: None Present Medications: see Short Stay Collaborative assessment Medical History: Significant History (Arthritis CLL (chronic lymphocytic leukemia) Diabetes mellitus Fibromyalgia History of bilateral breast cancer History of blood transfusion History of CVA (cerebrovascular accident) History of numbness Hypercholesterolemia Hypertension PONV (postoperative nausea and vomiting) Seasonal allergies Self) History of Previous Operations: Relevant previous surgery/procedure and date(s) (History of back surgery History of biopsy of bladder History of bladder repair surgery History of total hysterectomy Hx of colonoscopy S/P breast biopsy, right) Allergies: Allergies Allergy/AdvReac Type Severity Reaction Status Date / Time amoxicillin [AMOXICILLIN] Allergy Severe stroke, Verified 08/01/21 13:27 blood clots ciprofloxacin [From CIPRO] Allergy Severe ANAPHYLAXIS Verified 08/01/21 13:27 Iodinated Contrast Media Allergy Severe HIVES Verified 08/01/21 13:27 [IV DYE, IODINE CONTAINING CONTRAST ] levofloxacin Allergy Severe Anaphylaxis Verified 08/01/21 13:27 liraglutide Allergy Severe Headache Verified 08/01/21 13:27 Penicillins Allergy Severe stroke, Verified 08/01/21 13:27 blood clots phenazopyridine [Pyridium] Allergy Severe Anaphylaxis Verified 08/01/21 13:27 celecoxib [From CELEBREX] Allergy Intermediate HIVES Verified 08/01/21 13:27 fluticasone [Advair Diskus] Allergy Intermediate Anxiety Verified 08/01/21 13:27 latex Allergy Intermediate Hives Verified 08/01/21 13:27 salmeterol [Advair Diskus] Allergy Intermediate Anxiety Verified 08/01/21 13:27 Tetanus Vaccines and Toxoid Allergy Intermediate Swelling Verified 08/01/21 13:27 cephalexin [Keflex] Allergy Mild Nausea Verified 08/01/21 13:27 Plan I have reviewed the history and physical and performed a pertinent physical examination on my patient. No changes have occurred unless specified.
[2021-09-04] MEDS: Lactated Ringers 1,000 ML 100 ML IVCONT (10:06)
[2021-09-04 10:08] VITALS: BP 171/75; PULSE 66; RESP 18; TEMP 36.1; O2SAT 95
[2021-09-04 10:14] LABS: Glucose, Whole Blood 225 mg/dL (60-115)
--- NOTE | 2021-09-04 11:08 | P.BOP_ITS ---
Brief Operative Note Date of Service: 09/04/21 Pre-op diagnosis: anemia Post-op diagnosis: same Procedure: see op note Surgeon: Lamont Ceron MD Anesthesia: MAC Was an Diagnostic Radiologist used for this Procedure?: No Estimated blood loss (mL): 0 Condition: stable Disposition: PACU
--- NOTE | 2021-09-04 11:09 | W.PM.OPN ---
Operative Note Operative Note Date of Service: 09/04/21 Narrative: Operative Information Procedure Description: EGD, Colonoscopy FLEXIBLE TRANSORAL UPPER GASTROINTESTINAL ENDOSCOPY AND COLONOSCOPY PROCEDURE NOTE UPPER ENDOSCOPY Consent: Indications for the procedure and potential complications of bleeding, perforation, reaction to medications and missed diagnosis were discussed with the patient and informed consent was obtained. Instrument: Olympus GIF H 190 J mid size upper endoscope Monitoring: Vital signs and clinical assessment, continuous EKG monitoring, Pulse oximetry, Carbon Dioxide monitoring and blood pressure monitoring were done throughout the procedure. Procedure: The patient was placed in the left lateral decubitis position and pre-procedure medications were administered and a bite block was placed. The endoscope was inserted into the mouth and advanced under direct vision to the third part of duodenum. A careful inspection was made as the upper endoscope was withdrawn including a retroflexed examination of the proximal stomach; Findings and interventions are described below. Findings: Larynx:normal Esophagus: GE junction at 40 cm, diaphragm hiatus at 40 cm, mild LA grade A esophagitis noted at GRJ, bx taken as well as random esophagus bx Stomach: Many fundic gland polyps, one polyp had more gyrus type markings (Kudo pit pattern type IV) and this was removed with cold snare and retrieved with vickers net. Some areas of patchy erythema, biopsies were obtained. Grade 2 flap valve on retroflexed examination of the cardia with slightly lax LES. Duodenum: flattening of vili in the bulb with erythema, bx taken from duodenum, also large duodenal diverticulum noted Intervention: Biopsies as noted above COLONOSCOPY Instrument: Olympus variable stiffness pediatric scope 190L Colonoscopy Monitoring: Vital signs and clinical assessment, continuous EKG monitoring, Pulse oximetry, Carbon Dioxide monitoring and blood pressure monitoring were done throughout the procedure. Colon withdrawal time was 10 minutes. Procedure: The patient was placed in the left lateral decubitis position and pre-procedure medications were administered. After a digital rectal examination of the ano-rectum, the video colonoscope was inserted into the rectum and advanced through the colon to the cecum/TI. The colonoscope was slowly withdrawn in a retrograde panoramic fashion and the colon mucosa was carefully examined including a retroflexed view of the rectum. Findings and interventions are described below. Procedure Difficulty: difficult, lots of looping and redundancy Findings: severe diverticulosis ll over colon ro[place]e on the left side Terminal Ileum-not entered Cecum:normal Ascending Colon: normal Transverse Colon - x 2 sessile polyps 5-7 mm removed with forceps Descending Colon: 7-9 mm sessile polyp removed with cold snare Sigmoid Colon: one area with prominent fold, bx taken Rectum: Retroflexion with mdoerate sized internal hemorrhoids, grade I Anorectum - normal Colon preparation: [place] Bowel Preparation Scale Right colon; 2 Transverse colon: 2 Left colon; 1 (0 = Unprepared colon segment with mucosa not seen due to solid stool that cannot be cleared. 1 = Portion of mucosa of the colon segment seen, but other areas of the colon segment not well seen due to staining, residual stool and/or opaque liquid. 2 = Minor amount of residual staining, small fragments of stool and/or opaque liquid, but mucosa of colon segment seen well. 3 = Entire mucosa of colon segment seen well with no residual staining, small fragments of stool or opaque liquid) Impression and Post Procedure Diagnosis: Endoscopy Findings: duodenitis gastritis gastric polyps esophagitis Colonoscopy Findings: polyps internal hemorrhoids diverticular disease Plan: Await Pathology results Repeat Colonoscopy in 2-3 years due to left sided prep or earlier if clinically indicated High fiber diet leaflet avoid straining at stool, epsom salts and sitz bath, anusol supps or cream depending on path results may need celiac panel and h pylori testing Above findings were reviewed with the patient and relevant handouts were provided if indicated.
[2021-09-04 11:16] VITALS: BP 133/59; PULSE 65; RESP 15; TEMP 36.1; O2SAT 100
[2021-09-04 11:31] VITALS: BP 151/61; PULSE 62; RESP 16; TEMP 36.1; O2SAT 98
== END 2021-09-04 12:04 | disposition home or self-care (01) ==
PROVIDERS: PCP Family Medicine; Visit Provider Internal Medicine Gastroenterology
PROC: (CPT 45380; principal; 2021-09-04 10:10)
DX: Z12.11 Encounter for screening for malignant neoplasm of colon (principal); D64.9 Anemia, unspecified; K51.40 Inflammatory polyps of colon without complications; K57.30 Diverticulosis of large intestine without perforation or abscess without bleeding; K64.8 Other hemorrhoids; K21.9 Gastro-esophageal reflux disease without esophagitis; K20.80 Other esophagitis without bleeding; K29.50 Unspecified chronic gastritis without bleeding; K29.80 Duodenitis without bleeding; K31.7 Polyp of stomach and duodenum; K57.10 Diverticulosis of small intestine without perforation or abscess without bleeding; C91.10 Chronic lymphocytic leukemia of B-cell type not having achieved remission; I10 Essential (primary) hypertension; G47.33 Obstructive sleep apnea (adult) (pediatric); E11.9 Type 2 diabetes mellitus without complications; Z79.84 Long term (current) use of oral hypoglycemic drugs; Z79.82 Long term (current) use of aspirin; Z79.899 Other long term (current) drug therapy; Z85.3 Personal history of malignant neoplasm of breast; Z86.73 Personal history of transient ischemic attack (TIA), and cerebral infarction without residual deficits; Z88.0 Allergy status to penicillin; Z88.1 Allergy status to other antibiotic agents; Z88.8 Allergy status to other drugs, medicaments and biological substances; Z91.040 Latex allergy status; Z91.041 Radiographic dye allergy status
CPT/HCPCS: 45380; 82947; 88305; 88342; J2405

== ENCOUNTER → 2021-09-19 13:07 | Outpatient (BNVA) | payer MEDICARE, OTHER, SELFPAY | PROVIDERS: PCP Family Medicine; Visit Provider Nurse Practitioner Family | DX: K57.90 Diverticulosis of intestine, part unspecified, without perforation or abscess without bleeding (principal); K21.9 Gastro-esophageal reflux disease without esophagitis; D50.8 Other iron deficiency anemias | CPT/HCPCS: 99212 ==

== ENCOUNTER 2021-10-04 09:49 | Outpatient (REF) | payer MEDICARE, OTHER, SELFPAY | END 2021-10-04 09:50 | disposition home or self-care (01) | LOC: HO.LNP 09:49 | PROVIDERS: Visit Provider Urology | DX: N39.0 Urinary tract infection, site not specified (principal); B96.20 Unspecified Escherichia coli [E. coli] as the cause of diseases classified elsewhere; B95.8 Unspecified staphylococcus as the cause of diseases classified elsewhere | CPT/HCPCS: 87086; 87088; 87186 ==

== ENCOUNTER → 2021-10-06 08:22 | Outpatient (BNVA) | payer MEDICARE, OTHER, SELFPAY | PROVIDERS: PCP Family Medicine; Visit Provider Internal Medicine Gastroenterology ==

== ENCOUNTER 2021-10-23 05:57 | Day surgery (SDC) | payer MEDICARE, OTHER, SELFPAY ==
[2021-10-17 14:46] VITALS: BMI 35.6
--- NOTE | 2021-10-20 09:33 | HO.ANESPROP2 ---
Documented by User: Tabby Garcia NP 10/20/21 09:35 HPI - Anesthesia Eval Consult details Narrative: 76yo F for Insertion Suprapubic Tube Cardiac cleared at [facility]. Cath 07/2021 Cardiac catheterization reviewed 70% mid-LAD stenosis; 70% OM 1 and 60% proximal RCA stenosis.? At this time, for medical management. *Multiple Med Allergies* s/p EGD and [place] 08/2021 with MAC PMFSH Active Problems Active Problems: All Active Problems (Updated 10/17/21 @ 14:49 by Ivonne Hayes, [email or web address]) Complicated urinary tract infection (Acute) Urinary retention with incomplete bladder emptying (Acute) Breast cancer (Acute) CLL (chronic lymphocytic leukemia) (Acute) Anemia (Acute) Anemia (Acute) Preoperative cardiovascular examination (Acute) Precordial chest pain (Acute) Shortness of breath (Acute) Type 2 diabetes mellitus with unspecified complications (Acute) Essential hypertension (Acute) Hyperlipidemia, unspecified (Acute) Diabetes with neurologic complications (Acute) Abnormal nuclear cardiac imaging test (Acute) Asymmetric septal hypertrophy (Acute) Abnormal myocardial perfusion study (Acute) Atherosclerotic cardiovascular disease (Acute) Neurogenic urinary bladder disorder (Acute) Past Medical History Medical History Arthritis CLL (chronic lymphocytic leukemia) Diabetes mellitus Fibromyalgia History of bilateral breast cancer History of blood transfusion History of CVA (cerebrovascular accident) History of numbness Hypercholesterolemia Hypertension PONV (postoperative nausea and vomiting) Seasonal allergies Self-catheterizes urinary bladder Sleep apnea Wears dentures Family History Family History Other Breast cancer Heart disease Lung cancer Pancreatic cancer Family history of problems with anesthesia: No Surgical History Surgical History History of back surgery History of biopsy of bladder History of bladder repair surgery History of esophagogastroduodenoscopy (EGD) History of total hysterectomy Hx of colonoscopy S/P breast biopsy, right S/P left breast biopsy History of Problems with Anesthesia: Yes (Ponv ) Social History Social History Are you a primary disabilities caregiver to a significant other at home: No Do you presently have visiting nurse or other home services: No Alcohol intake: never Patient Tobacco Use Status: Never used Tobacco Use of substances other than those prescribed or required for medical reasons: No Have you been hit, kicked, punched, or otherwise hurt by someone within the past year? If so, by whom?: No Are you DNR?: No Advance Directives: No Advance Directives Information Provided: Yes Advance Directives on File: No Recently lost weight without trying: No Patient : No Meds Allergies Allergy/AdvReac Type Severity Reaction Status Date / Time amoxicillin [AMOXICILLIN] Allergy Severe stroke, Verified 10/23/21 06:10 blood clots ciprofloxacin [From CIPRO] Allergy Severe ANAPHYLAXIS Verified 10/23/21 06:10 Iodinated Contrast Media Allergy Severe HIVES Verified 10/23/21 06:10 [IV DYE, IODINE CONTAINING CONTRAST ] levofloxacin Allergy Severe Anaphylaxis Verified 10/23/21 06:10 liraglutide Allergy Severe Headache Verified 10/23/21 06:10 Penicillins Allergy Severe stroke, Verified 10/23/21 06:10 blood clots phenazopyridine [Pyridium] Allergy Severe Anaphylaxis Verified 10/23/21 06:10 FREYA Inhibitors Allergy Intermediate Cough Verified 10/23/21 06:10 ARB-Angiotensin Receptor Allergy Intermediate Cough Verified 10/23/21 06:10 Antagonist atorvastatin Allergy Intermediate Shortness Verified 10/23/21 06:10 of Breath cefpodoxime Allergy Intermediate Dizziness, Verified 10/23/21 06:10 nausea celecoxib [From CELEBREX] Allergy Intermediate HIVES Verified 10/23/21 06:10 doxazosin Allergy Intermediate Shortness Verified 10/23/21 06:10 of Breath fluticasone [Advair Diskus] Allergy Intermediate Anxiety Verified 10/23/21 06:10 gabapentin [From Neurontin] Allergy Intermediate Headache Verified 10/23/21 06:10 hydralazine Allergy Intermediate Shortness Verified 10/23/21 06:10 of Breath latex Allergy Intermediate Hives Verified 10/23/21 06:10 linezolid Allergy Intermediate Nausea and Verified 10/23/21 06:10 Vomiting meloxicam Allergy Intermediate Unknown Verified 10/23/21 06:10 salmeterol [Advair Diskus] Allergy Intermediate Anxiety Verified 10/23/21 06:10 Tetanus Vaccines and Toxoid Allergy Intermediate Swelling Verified 10/23/21 06:10 torsemide Allergy Intermediate Shortness Verified 10/23/21 06:10 of Breath cephalexin [Keflex] Allergy Mild Nausea Verified 10/23/21 06:10 Home Medications Medication Instructions Recorded Confirmed Last Taken Type citalopram 20 mg tablet 20 mg PO DAILY 07/21/20 10/17/21 10/23/21 05:30 History cyclobenzaprine 5 mg tablet 5 mg PO BEDTIME 07/21/20 10/17/21 Unknown History duloxetine 60 mg capsule,delayed 60 mg PO DAILY 07/21/20 10/17/21 10/23/21 05:30 History release spironolactone 25 mg tablet 25 mg PO DAILY 07/21/20 10/17/21 Unknown History ibrutinib 420 mg tablet (Imbruvica) 420 mg PO DAILY 09/07/20 10/17/21 Unknown History amlodipine 10 mg tablet 10 mg PO DAILY 03/23/21 10/17/21 10/23/21 05:30 History metformin 1,000 mg tablet 1,000 mg PO BID 04/19/21 10/17/21 Unknown History carvedilol 25 mg tablet 25 mg PO BID 05/31/21 10/17/21 10/23/21 05:30 History Magic Mouthwash 10 ml PO BID-TID PRN 06/21/21 10/17/21 Unknown History Diphen/Lido/Antacid 1:1:1 240 mL suspension ondansetron HCl 4 mg tablet 4 mg PO Q8H PRN 06/21/21 10/17/21 Unknown History (Zofran) fluocinonide 0.05 % topical cream 1 appl TOPICAL BID PRN 07/27/21 10/17/21 Unknown History pregabalin 150 mg capsule 150 mg PO BID 07/27/21 10/17/21 10/23/21 05:30 History sulindac 150 mg tablet 150 mg PO BID 07/27/21 10/17/21 Unknown History furosemide 20 mg tablet 2 tab PO QAM 10/17/21 10/17/21 Unknown History Exam Exam Date and Time: October 20, 2021 0933 Height,Weight and Vital Signs: Height 5 ft 4.5 in Weight 95.708 kg Pertinent Lab Results Pertinent Lab Results: Laboratory Tests ? 08/18/21 08/18/21 ? 13:14 13:14 WBC ?8.1 ? Hgb ?10.0 L ? Hct ?32.0 L ? Plt Count ?131 L ? Sodium ? ?138 Potassium ? ?4.5 Chloride ? ?101 Carbon Dioxide ? ?29 BUN ? ?19 H Creatinine ? ?1.28 Narrative Narrative: EKG 04/2021 sinus rhythm at 72/Min; leftward axis; nonspecific ST-T changes NM cardiolite stress test 04/2021 Impression: ? 1.? Myocardial perfusion imaging study shows equivocal apical ischemia 2.? Gated LVEF is 61% 3. Transient ischemic dilatation not present ? EKG is nondiagnostic for ischemia ? ECHO 05/2021 Conclusions: - 1. Normal LV systolic function mild LVH and moderate asymmetric septal hypertrophy with impaired relaxation? 2. Mild aortic regurgitation ? 3. Normal RV systolic pressure ? 4. No gross pericardial effusion ? Assessment and Plan Assessment Anesthesia Assessment: Chart Reviewed Final Anesthetic Review Family History of Problems with Anesthesia: No History of Problems with Anesthesia: Yes (Ponv ) Documented by User: Nick Mario 10/23/21 07:54 PMFSH Past Medical History Medical History Arthritis CLL (chronic lymphocytic leukemia) Diabetes mellitus Fibromyalgia History of bilateral breast cancer History of blood transfusion History of CVA (cerebrovascular accident) History of numbness Hypercholesterolemia Hypertension PONV (postoperative nausea and vomiting) Seasonal allergies Self-catheterizes urinary bladder Sleep apnea Wears dentures Family History Family History Other Breast cancer Heart disease Lung cancer Pancreatic cancer Surgical History Surgical History History of back surgery History of biopsy of bladder History of bladder repair surgery History of esophagogastroduodenoscopy (EGD) History of total hysterectomy Hx of colonoscopy S/P breast biopsy, right S/P left breast biopsy Social History Social History Are you a primary disabilities caregiver to a significant other at home: No Do you presently have visiting nurse or other home services: No Alcohol intake: never Patient Tobacco Use Status: Never used Tobacco Use of substances other than those prescribed or required for medical reasons: No Have you been hit, kicked, punched, or otherwise hurt by someone within the past year? If so, by whom?: No Are you DNR?: No Advance Directives: No Advance Directives Information Provided: Yes Advance Directives on File: No Recently lost weight without trying: No Patient : No Meds Allergies Allergy/AdvReac Type Severity Reaction Status Date / Time amoxicillin [AMOXICILLIN] Allergy Severe stroke, Verified 10/23/21 06:10 blood clots ciprofloxacin [From CIPRO] Allergy Severe ANAPHYLAXIS Verified 10/23/21 06:10 Iodinated Contrast Media Allergy Severe HIVES Verified 10/23/21 06:10 [IV DYE, IODINE CONTAINING CONTRAST ] levofloxacin Allergy Severe Anaphylaxis Verified 10/23/21 06:10 liraglutide Allergy Severe Headache Verified 10/23/21 06:10 Penicillins Allergy Severe stroke, Verified 10/23/21 06:10 blood clots phenazopyridine [Pyridium] Allergy Severe Anaphylaxis Verified 10/23/21 06:10 FREYA Inhibitors Allergy Intermediate Cough Verified 10/23/21 06:10 ARB-Angiotensin Receptor Allergy Intermediate Cough Verified 10/23/21 06:10 Antagonist atorvastatin Allergy Intermediate Shortness Verified 10/23/21 06:10 of Breath cefpodoxime Allergy Intermediate Dizziness, Verified 10/23/21 06:10 nausea celecoxib [From CELEBREX] Allergy Intermediate HIVES Verified 10/23/21 06:10 doxazosin Allergy Intermediate Shortness Verified 10/23/21 06:10 of Breath fluticasone [Advair Diskus] Allergy Intermediate Anxiety Verified 10/23/21 06:10 gabapentin [From Neurontin] Allergy Intermediate Headache Verified 10/23/21 06:10 hydralazine Allergy Intermediate Shortness Verified 10/23/21 06:10 of Breath latex Allergy Intermediate Hives Verified 10/23/21 06:10 linezolid Allergy Intermediate Nausea and Verified 10/23/21 06:10 Vomiting meloxicam Allergy Intermediate Unknown Verified 10/23/21 06:10 salmeterol [Advair Diskus] Allergy Intermediate Anxiety Verified 10/23/21 06:10 Tetanus Vaccines and Toxoid Allergy Intermediate Swelling Verified 10/23/21 06:10 torsemide Allergy Intermediate Shortness Verified 10/23/21 06:10 of Breath cephalexin [Keflex] Allergy Mild Nausea Verified 10/23/21 06:10 Home Medications Medication Instructions Recorded Confirmed Last Taken Type citalopram 20 mg tablet 20 mg PO DAILY 07/21/20 10/17/21 10/23/21 05:30 History cyclobenzaprine 5 mg tablet 5 mg PO BEDTIME 07/21/20 10/17/21 Unknown History duloxetine 60 mg capsule,delayed 60 mg PO DAILY 07/21/20 10/17/21 10/23/21 05:30 History release spironolactone 25 mg tablet 25 mg PO DAILY 07/21/20 10/17/21 Unknown History ibrutinib 420 mg tablet (Imbruvica) 420 mg PO DAILY 09/07/20 10/17/21 Unknown History amlodipine 10 mg tablet 10 mg PO DAILY 03/23/21 10/17/21 10/23/21 05:30 History metformin 1,000 mg tablet 1,000 mg PO BID 04/19/21 10/17/21 Unknown History carvedilol 25 mg tablet 25 mg PO BID 05/31/21 10/17/21 10/23/21 05:30 History Magic Mouthwash 10 ml PO BID-TID PRN 06/21/21 10/17/21 Unknown History Diphen/Lido/Antacid 1:1:1 240 mL suspension ondansetron HCl 4 mg tablet 4 mg PO Q8H PRN 06/21/21 10/17/21 Unknown History (Zofran) fluocinonide 0.05 % topical cream 1 appl TOPICAL BID PRN 07/27/21 10/17/21 Unknown History pregabalin 150 mg capsule 150 mg PO BID 07/27/21 10/17/21 10/23/21 05:30 History sulindac 150 mg tablet 150 mg PO BID 07/27/21 10/17/21 Unknown History furosemide 20 mg tablet 2 tab PO QAM 10/17/21 10/17/21 Unknown History Exam Airway Mallampati Class: III TM Dist: >3cm Neck ROM: Limited Denture: Upper and Lower Loose/Missing/Broken Teeth: Yes Heart: rrr Other: bl breath sounds Assessment and Plan Assessment Anesthesia Assessment: Anesthesia Plan Discussed Final Anesthetic Review NPO: Yes ASA Class: III Final Preanesthetic Review: Meds/Allgs Chart Reviewed and Anes Risks/Benef Reviewed Patient Risk: High Procedure Risk: Intermediate Anesthetic Plan Anesthetic Plan: MAC: Disposition: Standard PACU
[2021-10-23] VITALS (21 sets, daily range): BP systolic 134–159; BP diastolic 55–74; PULSE 59–67; RESP 16–17; TEMP 36.4–36.5; O2SAT 95–98
[2021-10-23 06:19] LABS: Glucose, Whole Blood 155 mg/dL (60-115)
[2021-10-23] MEDS: Lactated Ringers 1,000 ML 100 ML IVCONT (06:34)
--- NOTE | 2021-10-23 08:15 | W.PM.OPN ---
Operative Note Operative Note Date of Service: 10/23/21 Narrative: PreOperative Diagnosis:?neurogenic bladder Post Operative Diagnosis:?neurogenic bladder Procedure:? 1. Cystoscopy 2. Suprapubic tube placement Surgeon: Dr Ceferino Hayes Anesthesia:?Sedation plus local Indications for procedure: recurrent UTI with neurogenic bladder using CIC x3 a day Procedure: After informed consent was verified the patient was brought to the operating room and placed in a supine position.? Anesthesia was administered per protocol. The patient was placed in a modified dorsal lithotomy position and prepped and draped in a sterile fashion. A safety pause was performed confirming patient identity, procedure and antibiotics. A 22 Vincentian cystoscope was inserted per urethra. Bladder was examined in its entirety. No abnormalities seen. Air bubble was located at the dome of the bladder. A finder needle was inserted 2 fingerbreaths above the symphysis pubis on the abdomen into the bladder.? The needle was visualized in the bladder via cystoscopy. Local anesthetic was infiltrated subcutaneously around the needle introduction site. A small, 1cm horizontal incision was made.? A trocar introducer was advanced through the abdominal wall into the bladder under visualization. The obturator was removed and a 18 Fr scherer catheter placed. 7cc was used to inflate the balloon. The external portion of the trocar was removed. Dressing was placed, the bladder was emptied, and a drainage bag was attached. The patient tolerated the procedure and was transferred in stable condition to the recovery area. Suprapubic tube will be changed in 1 month with a follow-up office visit.
[2021-10-23] MEDS: oxyCODONE HCl Immed Release 5 MG TABLET PO (09:27)
--- NOTE | 2021-10-23 09:30 | MHC.SHP ---
Pre-Procedural Eval Section A Date of Service: 10/23/21 The patient is an INPATIENT: No Changes since office visit: No Cold of Flu in the past 2 weeks, No New Medical Problems, No Changes in Medication and No Patient answered all questions The History & Physical has been completed within 30 days and I have reviewed it.: No Section B Chief Complaint: urine retention Details of Present Illness: has urinary retention with recurrent UTI Relevant Social History: None Present Medications: see Short Stay Collaborative assessment Medical History: Significant History History of Previous Operations: No relevant previous surgery Allergies: Allergies Allergy/AdvReac Type Severity Reaction Status Date / Time amoxicillin [AMOXICILLIN] Allergy Severe stroke, Verified 10/23/21 06:10 blood clots ciprofloxacin [From CIPRO] Allergy Severe ANAPHYLAXIS Verified 10/23/21 06:10 Iodinated Contrast Media Allergy Severe HIVES Verified 10/23/21 06:10 [IV DYE, IODINE CONTAINING CONTRAST ] levofloxacin Allergy Severe Anaphylaxis Verified 10/23/21 06:10 liraglutide Allergy Severe Headache Verified 10/23/21 06:10 Penicillins Allergy Severe stroke, Verified 10/23/21 06:10 blood clots phenazopyridine [Pyridium] Allergy Severe Anaphylaxis Verified 10/23/21 06:10 FREYA Inhibitors Allergy Intermediate Cough Verified 10/23/21 06:10 ARB-Angiotensin Receptor Allergy Intermediate Cough Verified 10/23/21 06:10 Antagonist atorvastatin Allergy Intermediate Shortness Verified 10/23/21 06:10 of Breath cefpodoxime Allergy Intermediate Dizziness, Verified 10/23/21 06:10 nausea celecoxib [From CELEBREX] Allergy Intermediate HIVES Verified 10/23/21 06:10 doxazosin Allergy Intermediate Shortness Verified 10/23/21 06:10 of Breath fluticasone [Advair Diskus] Allergy Intermediate Anxiety Verified 10/23/21 06:10 gabapentin [From Neurontin] Allergy Intermediate Headache Verified 10/23/21 06:10 hydralazine Allergy Intermediate Shortness Verified 10/23/21 06:10 of Breath latex Allergy Intermediate Hives Verified 10/23/21 06:10 linezolid Allergy Intermediate Nausea and Verified 10/23/21 06:10 Vomiting meloxicam Allergy Intermediate Unknown Verified 10/23/21 06:10 salmeterol [Advair Diskus] Allergy Intermediate Anxiety Verified 10/23/21 06:10 Tetanus Vaccines and Toxoid Allergy Intermediate Swelling Verified 10/23/21 06:10 torsemide Allergy Intermediate Shortness Verified 10/23/21 06:10 of Breath cephalexin [Keflex] Allergy Mild Nausea Verified 10/23/21 06:10 Review of Systems Sugical H&P ROS: Negative: Constitution, Cardiovascular, Respiratory, Neurological, Psychiatric, Hem-Onc, Allergic/Immunologic, Gastrointestinal, Genitourinary, Musculoskeletal, Integumentary, Endocrine and Eyes/Ears/Nose/Throat Exam Surgical H&P Exam: Normal: HEENT, Normal: Heart, Normal: Lungs, Normal: Extremities, Normal: Abdomen, Normal: Skin and Normal: Neurological Plan Diagnosis/Plan: Unchanged ( cystoscopy with suprapubic tube placement) I have reviewed the history and physical and performed a pertinent physical examination on my patient. No changes have occurred unless specified.
[2021-10-23] MEDS: Tranexamic Acid 1,000 MG in 0.9 % Sodium Chloride 50 ML 360 MG IV (10:00)
== END 2021-10-23 15:52 | disposition home or self-care (01) ==
PROVIDERS: PCP Family Medicine; Visit Provider Urology
PROC: (CPT 51102; principal; 2021-10-23 07:30)
DX: N31.9 Neuromuscular dysfunction of bladder, unspecified (principal); R33.9 Retention of urine, unspecified; C91.10 Chronic lymphocytic leukemia of B-cell type not having achieved remission; I10 Essential (primary) hypertension; E78.00 Pure hypercholesterolemia, unspecified; E11.9 Type 2 diabetes mellitus without complications; G47.33 Obstructive sleep apnea (adult) (pediatric); M79.7 Fibromyalgia; Z85.3 Personal history of malignant neoplasm of breast; Z79.899 Other long term (current) drug therapy; Z99.89 Dependence on other enabling machines and devices; Z88.0 Allergy status to penicillin; Z88.1 Allergy status to other antibiotic agents; Z88.8 Allergy status to other drugs, medicaments and biological substances; Z91.040 Latex allergy status; Z91.041 Radiographic dye allergy status
CPT/HCPCS: 51102; 82947; J0696; J3010

== ENCOUNTER → 2021-10-24 10:05 | Outpatient (BNVA) | payer MEDICARE, OTHER, SELFPAY | PROVIDERS: PCP Family Medicine; Visit Provider Internal Medicine | DX: I25.10 Atherosclerotic heart disease of native coronary artery without angina pectoris (principal); I10 Essential (primary) hypertension; I42.2 Other hypertrophic cardiomyopathy; E78.5 Hyperlipidemia, unspecified; E11.8 Type 2 diabetes mellitus with unspecified complications | CPT/HCPCS: 99212 ==

== ENCOUNTER 2021-10-31 09:21 | Outpatient (REF) | payer MEDICARE, OTHER, SELFPAY ==
[2021-10-31 11:23] LABS: Hematocrit 31.2 % (37.0-47.0); Hemoglobin 9.5 g/dl (12.0-16.0); Mean Corpuscular HGB Conc 30.4 g/dl (31.0-35.0); Mean Corpuscular Hemoglobin 27.1 pg (27.0-33.0); Mean Corpuscular Volume 89.1 fL (80.0-98.0); Mean Platelet Volume 12.4 fL (9.4-12.3); Platelet Count 161 X10*3/uL (160-400); Red Cell Distribution Width 17.1 % (11.0-16.0); White Blood Count 9.5 X10*3/uL (4.8-10.8)
[2021-10-31 12:51] LABS: Cholesterol 148 mg/dL; HDL Cholesterol 44 mg/dL; LDL Cholesterol Calculated 57 mg/dl; Triglycerides 236 mg/dL
[2021-11-01 12:52] LABS: Transglutaminase Ab IgG <1.0 U/mL; Transglutaminase IgA <1.0 U/mL
[2021-11-04 14:25] LABS: Vitamin D 25-OH, D2 <4 ng/mL; Vitamin D 25-OH, D3 48 ng/mL; Vitamin D 25-OH, Total 48 ng/mL (30-100)
== END 2021-10-31 09:22 | disposition home or self-care (01) ==
LOC: HO.LAB 09:21
PROVIDERS: Absent Provider Internal Medicine; PCP Family Medicine; Visit Provider Nurse Practitioner Family
DX: R10.11 Right upper quadrant pain (principal); R14.0 Abdominal distension (gaseous); D50.8 Other iron deficiency anemias; E55.9 Vitamin D deficiency, unspecified; E78.5 Hyperlipidemia, unspecified; I25.10 Atherosclerotic heart disease of native coronary artery without angina pectoris
CPT/HCPCS: 36415; 80061; 82306; 85027; 86364; 99212

== ENCOUNTER 2021-11-04 09:01 | Outpatient (REF) | payer MEDICARE, OTHER, SELFPAY ==
[2021-11-04 10:10] LABS: Glucose Fasting 199 mg/dL (60-99)
[2021-11-04 10:16] LABS: Estimated Average Glucose 160 mg/dL; Hemoglobin A1c % 7.2 %
[2021-11-04 10:16] LABS: Creatinine Urine 94.81 mg/dL; Microalbum/Creatinine Ratio Ur 60.1 ug/mg cr
== END 2021-11-04 09:02 | disposition home or self-care (01) ==
LOC: HO.LAB 09:01
PROVIDERS: PCP Family Medicine; Visit Provider Family Medicine
DX: E11.9 Type 2 diabetes mellitus without complications (principal)
CPT/HCPCS: 36415; 82043; 82947; 83036; 87086; 87088; 87186

== ENCOUNTER 2021-11-07 08:53 | Outpatient (REF) | payer MEDICARE, OTHER, SELFPAY ==
[2021-11-08 16:47] LABS: H Pylori Breath Test Negative (Negative)
== END 2021-11-07 08:54 | disposition home or self-care (01) ==
LOC: HO.LAB 08:53
PROVIDERS: Nurse Practitioner Family; PCP Family Medicine; Visit Provider Internal Medicine Gastroenterology
DX: C91.10 Chronic lymphocytic leukemia of B-cell type not having achieved remission (principal); E11.49 Type 2 diabetes mellitus with other diabetic neurological complication; C50.919 Malignant neoplasm of unspecified site of unspecified female breast
CPT/HCPCS: 36415; 83013; 99211

== ENCOUNTER 2021-11-21 08:34 | Outpatient (REF) | payer MEDICARE, OTHER, SELFPAY | END 2021-11-21 08:35 | disposition home or self-care (01) | LOC: HO.LNP 08:34 | PROVIDERS: Visit Provider Urology | DX: N39.0 Urinary tract infection, site not specified (principal) | CPT/HCPCS: 87086; 87088; 87186 ==

== ENCOUNTER → 2021-11-22 12:52 | Outpatient (BNVA) | payer MEDICARE, OTHER, SELFPAY | PROVIDERS: PCP Family Medicine; Visit Provider Urology | DX: Z43.5 Encounter for attention to cystostomy (principal); N31.9 Neuromuscular dysfunction of bladder, unspecified; N20.0 Calculus of kidney; R33.9 Retention of urine, unspecified; Z87.440 Personal history of urinary (tract) infections | CPT/HCPCS: 51705; 99212 ==

== ENCOUNTER 2021-12-19 16:14 | Outpatient (REF) | payer MEDICARE, OTHER, SELFPAY ==
--- NOTE | ~2021-12-19 | US_ITS ---
EXAMINATION: US RETROPERITONEAL LIMITED (RENAL ONLY) CLINICAL INFORMATION: Stones. COMPARISON: CT abdomen and pelvis 04/17/2020. X-ray abdomen 07/10/2018. Ultrasound renal 06/25/2016. TECHNIQUE: Real-time imaging of the kidneys. FINDINGS: RIGHT KIDNEY: 15.2 x 5.4 x 6.0 cm (SAG x AP x TRV). The kidney is normal in size, contour, and echogenicity. Renal cortical thickness is normal. No renal hydronephrosis. There are anechoic cysts in upper pole measuring 0.9 x 0.8 x 0.8 cm and 0.8 x 0.6 x 0.6 cm. There are nonobstructive echogenic stones measuring 0.4 cm in midpole, 0.3 cm, 0.4 and 0.3 cm in upper pole. There is mild fullness of the right kidney pelvis. LEFT KIDNEY: 13.1 x 4.8 x 5.8 cm (SAG x AP x TRV). The kidney is normal in size, contour, and echogenicity. Renal cortical thickness is normal. No renal hydronephrosis. There is an anechoic cyst in the midpole measuring 1.4 x 1.0 x 0.9 cm. There is an echogenic stone in the lower pole measuring 1.1 x 1.0 cm. There is mild fullness. Previously seen left adrenal adenoma not visualized on the present exam. US/US renal BI IMPRESSION: Bilateral nonobstructive echogenic renal calculi. Bilateral simple renal cysts. There is mild bilateral renal fullness.
== END 2021-12-19 16:15 | disposition home or self-care (01) ==
LOC: HO.US 16:14
PROVIDERS: PCP Family Medicine; Visit Provider Urology
DX: N20.0 Calculus of kidney (principal); N39.0 Urinary tract infection, site not specified; N31.9 Neuromuscular dysfunction of bladder, unspecified
CPT/HCPCS: 76775; 87086; 87088; 87186

== ENCOUNTER → 2021-12-22 12:56 | Outpatient (BNVA) | payer MEDICARE, OTHER, SELFPAY | PROVIDERS: PCP Family Medicine; Visit Provider Urology | DX: Z43.5 Encounter for attention to cystostomy (principal); N31.9 Neuromuscular dysfunction of bladder, unspecified; N39.0 Urinary tract infection, site not specified; R33.9 Retention of urine, unspecified; N20.0 Calculus of kidney | CPT/HCPCS: 51705; 99212 ==

== ENCOUNTER 2022-01-16 11:58 | Outpatient (REF) | payer MEDICARE, OTHER, SELFPAY | END 2022-01-16 11:59 | disposition home or self-care (01) | LOC: HO.LNP 11:58 | PROVIDERS: Visit Provider Urology | DX: N39.0 Urinary tract infection, site not specified (principal) | CPT/HCPCS: 87086; 87088; 87186 ==

== ENCOUNTER → 2022-01-19 12:55 | Outpatient (BNVA) | payer MEDICARE, OTHER, SELFPAY | PROVIDERS: PCP Family Medicine; Visit Provider Urology | DX: N31.9 Neuromuscular dysfunction of bladder, unspecified (principal) | CPT/HCPCS: 51702; 51705 ==

== ENCOUNTER → 2022-02-02 13:22 | Outpatient (BNVA) | payer MEDICARE, OTHER, SELFPAY | PROVIDERS: PCP Family Medicine; Referring Provider Family Medicine; Visit Provider Nurse Practitioner Family | DX: D64.9 Anemia, unspecified (principal); R14.0 Abdominal distension (gaseous) | CPT/HCPCS: 99212 ==

== ENCOUNTER 2022-02-06 10:29 | Outpatient (REF) | payer MEDICARE, OTHER, SELFPAY | END 2022-02-06 10:30 | disposition home or self-care (01) | LOC: HO.LNP 10:29 | PROVIDERS: Visit Provider Urology | DX: N39.0 Urinary tract infection, site not specified (principal) | CPT/HCPCS: 87086; 87088; 87186 ==

== ENCOUNTER 2022-02-09 08:34 | Outpatient (REF) | payer MEDICARE, OTHER, SELFPAY ==
[2022-02-09 10:05] LABS: Estimated Average Glucose 163 mg/dL; Hemoglobin A1c % 7.3 %
[2022-02-09 10:27] LABS: Anion Gap 15 (12-20); Blood Urea Nitrogen 17 mg/dL (9-16); Carbon Dioxide 28 mmol/L (22-29); Chloride 100 mmol/L (96-108); Cholesterol 130 mg/dL; Estimated Glomerular Filt Rate 39; Glucose Fasting 161 mg/dL (60-99); HDL Cholesterol 36 mg/dL; LDL Cholesterol Calculated 66 mg/dl; Potassium 4.6 mmol/L (3.3-5.1); Sodium 138 mmol/L (135-145); Triglycerides 144 mg/dL
[2022-02-09 10:43] LABS: Amylase 105 U/L (28-100); Lipase 157 U/L (8-78)
[2022-02-15 22:22] LABS: Pancreatic Elastase-1 337 mcg/g
== END 2022-02-09 08:35 | disposition home or self-care (01) ==
LOC: HO.LAB 08:34
PROVIDERS: Absent Provider Family Medicine; PCP Family Medicine; Visit Provider Nurse Practitioner Family
DX: R10.9 Unspecified abdominal pain (principal); K21.9 Gastro-esophageal reflux disease without esophagitis; E11.9 Type 2 diabetes mellitus without complications; I10 Essential (primary) hypertension; E78.00 Pure hypercholesterolemia, unspecified
CPT/HCPCS: 36415; 80051; 80061; 82150; 82565; 82656; 82947; 83036; 83690; 84520

== ENCOUNTER 2022-02-12 11:20 | Emergency (ER) | payer MEDICARE, OTHER, SELFPAY ==
--- NOTE | ~2022-02-12 | XR_ITS ---
EXAMINATION: XR CHEST CLINICAL INFORMATION: Shortness of breath COMPARISON: 10/20/2020 TECHNIQUE: Frontal view of the chest was obtained. FINDINGS: No significant abnormality is noted involving the heart, lungs, mediastinum, bony thorax or soft tissues. Again seen is some mild eventration of the right hemidiaphragm anteriorly. Degenerative changes are present in the shoulders. XR/XR chest 1V IMPRESSION: No acute intrathoracic disease
[2022-02-12 11:29] VITALS: BP 158/56; PULSE 62; RESP 18; TEMP 37.1; O2SAT 97; BMI 36.8
[2022-02-12 11:45] LABS: COVID-19 Test Positive (Negative)
--- NOTE | 2022-02-12 11:58 | ECG_ITS ---
Test Reason : cp Blood Pressure : / mmHG Vent. Rate : 056 BPM Atrial Rate : 056 BPM P-R Int : 172 ms QRS Dur : 110 ms QT Int : 454 ms P-R-T Axes : 057 -23 014 degrees QTc Int : 438 ms Sinus bradycardia Minimal voltage criteria for LVH, may be normal variant ( [place] product ) Borderline ECG When compared with ECG of 17-APR-2020 03:09, QT has shortened Referred By: Melissa Montana Electronically Signed By:ITA DAILEY
--- NOTE | 2022-02-12 12:01 | ED.SOB ---
HPI - SOB/Dyspnea General Chief Complaint: Dyspnea Stated Complaint: COVID+, Time Seen by Provider: 02/12/22 11:44 Source: patient Mode of arrival: ambulatory Limitations: no limitations History of Present Illness HPI Narrative: Patient comes emergency room complaining of shortness of breath, generalized weakness. Patient states that she was diagnosed with COVID-19 2 weeks ago. Patient states that she went to see her primary care physician, she believes she was prescribed Molnupiravir, pt finished the entire course of medications. Patient states that initially she started feeling better. However, for the last 2-3 days, patient is feeling very weak, tired, fatigued, short of breath especially with exertion. Patient states that she does not have history of either COPD or CHF. However, patient also states that for the last couple of weeks, she has noticed that her lower extremities have been getting more swollen than usual. Also, patient has history of anemia for which she has previously required blood transfusions. Also, I spoke with Dr. Breen, patient also has history of recurrent UTIs, patient is currently on ceftriaxone Related Data Home Medications Medication Instructions Recorded Confirmed citalopram 20 mg tablet 20 mg PO DAILY 07/21/20 11/16/21 cyclobenzaprine 5 mg tablet 5 mg PO BEDTIME 07/21/20 11/16/21 duloxetine 60 mg capsule,delayed 60 mg PO DAILY 07/21/20 11/16/21 release spironolactone 25 mg tablet 25 mg PO DAILY 07/21/20 11/16/21 ibrutinib 420 mg tablet (Imbruvica) 420 mg PO DAILY 09/07/20 11/16/21 amlodipine 10 mg tablet 10 mg PO DAILY 03/23/21 11/16/21 metformin 1,000 mg tablet 1,000 mg PO BID 04/19/21 11/16/21 carvedilol 25 mg tablet 25 mg PO BID 05/31/21 11/16/21 Magic Mouthwash 10 ml PO BID-TID PRN 06/21/21 11/16/21 Diphen/Lido/Antacid 1:1:1 240 mL suspension ondansetron HCl 4 mg tablet 4 mg PO Q8H PRN 06/21/21 11/16/21 (Zofran) fluocinonide 0.05 % topical cream 1 appl TOPICAL BID PRN 07/27/21 11/16/21 pregabalin 150 mg capsule 150 mg PO BID 07/27/21 11/16/21 sulindac 150 mg tablet 150 mg PO BID 07/27/21 11/16/21 furosemide 20 mg tablet 2 tab PO QAM 10/17/21 11/16/21 Previous Rx's Medication Instructions Recorded aspirin 81 mg tablet,delayed 81 mg PO DAILY #90 tab 07/10/21 release (Enteric Coated Aspirin) atorvastatin 80 mg tablet 80 mg PO QPM #90 tab 08/01/21 ascorbic acid (vitamin C) 500 mg 500 mg PO BID #120 tab 08/18/21 tablet (Vitamin C) ferrous sulfate 325 mg (65 mg 325 mg PO DAILY #120 tab 08/18/21 iron) tablet (iron) bisacodyl 5 mg tablet,delayed 10 mg PO ONCE 1 Days #2 tab 09/19/21 release (Dulcolax (bisacodyl)) polyethylene glycol 3350 17 17 g PO DAILY #238 g 09/19/21 gram/dose oral powder (Miralax) methenamine hippurate 1 gram tablet 1 g PO DAILY 90 Days #90 tab 11/22/21 famotidine 40 mg tablet 40 mg PO BEDTIME #30 tab 12/12/21 potassium citrate 10 mEq (1,080 20 meq PO BID 30 Days #120 tab 12/27/21 mg) tablet,extended release pantoprazole 40 mg tablet,delayed 40 mg PO BID #180 tab 02/02/22 release sennosides 8.6 mg tablet (Natural 17.2 mg PO BEDTIME #180 tab 02/02/22 Senna Laxative) simethicone 125 mg capsule (Gas 125 mg PO TID-QID PRN #240 cap 02/02/22 Relief (simethicone)) ceftriaxone 1 gram solution for 1 g IM DAILY 19 Days #19 ea 02/07/22 injection syringe with needle 3 mL 22 x 1 #20 ea 02/07/222 (BD Luer-Humphrey Syringe) lidocaine (PF) 10 mg/mL (1 %) See Rx Instructions .ROUTE DAILY 02/09/22 injection syringe 20 Days #20 ml Allergies Allergy/AdvReac Type Severity Reaction Status Date / Time amoxicillin [AMOXICILLIN] Allergy Severe stroke, Verified 02/02/22 13:56 blood clots ciprofloxacin [From CIPRO] Allergy Severe ANAPHYLAXIS Verified 02/02/22 13:56 Iodinated Contrast Media Allergy Severe HIVES Verified 02/02/22 13:56 [IV DYE, IODINE CONTAINING CONTRAST ] levofloxacin Allergy Severe Anaphylaxis Verified 02/02/22 13:56 liraglutide Allergy Severe Headache Verified 02/02/22 13:56 Penicillins Allergy Severe stroke, Verified 02/02/22 13:56 blood clots phenazopyridine [Pyridium] Allergy Severe Anaphylaxis Verified 02/02/22 13:56 FREYA Inhibitors Allergy Intermediate Cough Verified 02/02/22 13:56 ARB-Angiotensin Receptor Allergy Intermediate Cough Verified 02/02/22 13:56 Antagonist atorvastatin Allergy Intermediate Shortness Verified 02/02/22 13:56 of Breath cefpodoxime Allergy Intermediate Dizziness, Verified 02/02/22 13:56 nausea celecoxib [From CELEBREX] Allergy Intermediate HIVES Verified 02/02/22 13:56 doxazosin Allergy Intermediate Shortness Verified 02/02/22 13:56 of Breath fluticasone [Advair Diskus] Allergy Intermediate Anxiety Verified 02/02/22 13:56 gabapentin [From Neurontin] Allergy Intermediate Headache Verified 02/02/22 13:56 hydralazine Allergy Intermediate Shortness Verified 02/02/22 13:56 of Breath latex Allergy Intermediate Hives Verified 02/02/22 13:56 linezolid Allergy Intermediate Nausea and Verified 02/02/22 13:56 Vomiting meloxicam Allergy Intermediate Unknown Verified 02/02/22 13:56 salmeterol [Advair Diskus] Allergy Intermediate Anxiety Verified 02/02/22 13:56 Tetanus Vaccines and Toxoid Allergy Intermediate Swelling Verified 02/02/22 13:56 torsemide Allergy Intermediate Shortness Verified 02/02/22 13:56 of Breath cephalexin [Keflex] Allergy Mild Nausea Verified 02/02/22 13:56 Review of Systems Review of Systems: Constitutional : No Weight loss, No Fever, No Chills, complaining of fatigue, generalized malaise ENT/Mouth : No Hearing loss, No Ear Pain, No Nasal Congestion, No Sinus Pain, No Hoarseness, No sore throat, No Rhinorrhea, No Swallowing Difficulty Eyes: No Eye Pain, No Swelling, No Redness, No Foreign Body, No Discharge, No Vision Changes Cardiovascular : No Chest Pain, complaining of shortness of breath, worse with exertion, complaining of Orthopnea, complaining of bilateral lower extremity edema, No Palpitations Respiratory : No Cough, No Sputum, No Wheezing, No Smoke Exposure, No Dyspnea Gastrointestinal : No Nausea, No Vomiting, No Diarrhea, No Constipation, No abdominal Pain, No Hematochezia, No Melena Genitourinary : no irregular bleeding, No Dysuria, No Urinary Frequency, No Hematuria, No Urinary Incontinence, No Urgency, No Flank Pain, No Urinary Flow Changes, No Hesitancy Musculoskeletal : No joint pain, No Myalgias, No Joint Swelling Skin : No Skin Lesions, No rash Neuro : No Weakness, No Numbness, No Paresthesias, No Loss of Consciousness, No Dizziness, No Headache Psych : No Anxiety/Panic, No Depression, No SI/HI/AH/VH, No Social Issues, Heme/Lymph: No Bruising, No Bleeding,No Lymphadenopathy Endocrine : No Polyuria, No Polydipsia, No Temperature Intolerance PMF Past Medical History Medical History Arthritis CLL (chronic lymphocytic leukemia) Diabetes mellitus Fibromyalgia History of bilateral breast cancer History of blood transfusion History of CVA (cerebrovascular accident) History of numbness Hypercholesterolemia Hypertension PONV (postoperative nausea and vomiting) Seasonal allergies Self-catheterizes urinary bladder Sleep apnea Wears dentures Surgical History History of back surgery History of biopsy of bladder History of bladder repair surgery History of esophagogastroduodenoscopy (EGD) History of suprapubic catheter History of total hysterectomy Hx of colonoscopy S/P breast biopsy, right S/P left breast biopsy Family History Family History Mother Breast cancer Father Heart disease Father Lung cancer Mother Colon cancer Brother Pancreatic cancer Social History Social History Household Members: Spouse Housing: House Are you a primary customer care manager to a significant other at home: No Do you presently have visiting nurse or other home services: No Alcohol intake: never Patient Tobacco Use Status: Never used Tobacco Advance Directives: Yes Advance Directives Information Provided: No Advance Directives on File: No service: No Current occupational status: retired Physical Exam Vital Signs: Vital Signs: Last Vital Signs Temp 98.1 F 02/12/22 13:10 Pulse 56 02/12/22 14:24 Resp 16 02/12/22 14:24 BP 152/82 H 02/12/22 14:24 Pulse Ox 96 02/12/22 14:34 BMI result Body Mass Index 36.8 Const: Other: Appearance: Alert. Oriented X3. No acute distress. Eyes: Pupils equal, round and reactive to light. ENT: Pharynx normal. Neck: Normal inspection. Neck supple. No lymph nodes noted. No crepitus CVS: Normal heart rate and rhythm. Pulses normal. Normal S1 and S2 Respiratory: No respiratory distress. Breath sounds normal. No Wheezing. No rales , oxygen saturation 96% on room air. However, after patient was walked from the waiting room to her room in the emergency room, patient was significantly tachypneic Abdomen: Soft and nontender. No rigidity. No distention. Back: Muscle spasm in the paraspinal muscles Skin: Skin warm and dry. Normal skin color. Normal skin turgor. Extremities: +2 pitting edema bilaterally. No Lacerations. No Rash Neuro: Oriented X 3. No motor deficit. No sensory deficit. Moving all extremities. No slurred speech. CN 2 through 12 grossly intact Psych: calm, cooperative, normal affect Course Course Course Narrative: Patient's vitals are stable. As mentioned above, patient does become significantly dyspneic and tachypneic with exertion. All of patient's labs are pending. We will add a D-dimer, patient has history of breast cancer and CLL. Patient recuperated well at rest D-dimer is negative, chest x-ray does not show any acute pathology, troponin BMP within normal limits Patient's oxygen saturation remained at 96% while walking around the emergency room. I discussed the labs and chest x-ray with Dr. Breen, patient will follow-up with him. I also discussed with pharmacy if there will be any benefit a 2nd round of antiviral medication for COVID-19. At this time, there is no indication for further treatment. MDM - SOB/Dyspnea Lab Data Result diagrams: 02/12/22 12:24 02/12/22 12:24 Labs: Lab Results 02/12/22 02/12/22 02/12/22 Range/Units 11:31 12:24 12:24 WBC 7.8 (4.8-10.8) X10*3/uL RBC 3.98 L (4.20-5.50) X10*6/uL Hgb 11.5 L (12.0-16.0) g/dl Hct 35.8 L (37.0-47.0) % MCV 89.9 (80.0-98.0) fL MCH 28.9 (27.0-33.0) pg MCHC 32.1 (31.0-35.0) g/dl RDW 14.0 (11.0-16.0) % Plt Count 125 L (160-400) X10*3/uL MPV 11.6 (9.4-12.3) fL Immature Gran % (Auto) 2.1 H (0.0-0.4) % Neut % (Auto) 62.9 (45-73) % Lymph % (Auto) 25.9 (20-40) % Stoddard % (Auto) 7.6 (2-11) % Eos % (Auto) 1.0 (0-4) % Baso % (Auto) 0.5 (0-2) % Lymph # (Auto) 2.0 (1.2-4.9) X10*3/uL Stoddard # (Auto) 0.6 (0.1-1.2) X10*3/uL Eos # (Auto) 0.1 (0.0-0.4) X10*3/uL Baso # (Auto) 0.0 (0.0-0.2) X10*3/uL Abs Immat Gran (auto) 0.16 H (0.00-0.03) X10*3/uL Absolute Neuts (auto) 4.9 (2.0-8.3) x10*3/uL Absolute Nucleated RBC 0.000 (0.0-0.012) X10*3/uL Nucleated RBC % (auto) 0.0 (0.0-0.2) /100WBC PT (9.9-13.0) SEC INR (0.9-1.1) APTT (24.1-38.0) SEC D-Dimer High Sensitivty NG/ML Sodium 136 (135-145) mmol/L Potassium 4.9 (3.3-5.1) mmol/L Chloride 101 (96-108) mmol/L Carbon Dioxide 25 (22-29) mmol/L Anion Gap 15 (12-20) BUN 17 H (9-16) mg/dL Creatinine 1.09 (0.5-1.4) mg/dL Estim Creat Clear Calc 50.5 Estimated GFR 49 Random Glucose 172 H (60-115) mg/dL Lactic Acid (0.5-2.0) mmol/L Calcium 9.3 (8.4-10.2) mg/dL Total Bilirubin 0.9 (0.0-1.0) mg/dL Direct Bilirubin 0.4 (0.0-0.5) mg/dL AST 16 (5-31) U/L ALT 17 (0-31) U/L Alkaline Phosphatase 59 (39-117) U/L Troponin I High Sens (<3.5-17.0) ng/L B-Natriuretic Peptide (<100) pg/mL Total Protein 6.1 L (6.5-8.0) g/dL Albumin 4.2 (3.5-5.0) g/dL COVID-19 (DONAVAN) Positive A (Negative) COVID-19 Clin Com See Note 02/12/22 02/12/22 02/12/22 Range/Units 12:24 12:24 12:24 WBC (4.8-10.8) X10*3/uL RBC (4.20-5.50) X10*6/uL Hgb (12.0-16.0) g/dl Hct (37.0-47.0) % MCV (80.0-98.0) fL MCH (27.0-33.0) pg MCHC (31.0-35.0) g/dl RDW (11.0-16.0) % Plt Count (160-400) X10*3/uL MPV (9.4-12.3) fL Immature Gran % (Auto) (0.0-0.4) % Neut % (Auto) (45-73) % Lymph % (Auto) (20-40) % Stoddard % (Auto) (2-11) % Eos % (Auto) (0-4) % Baso % (Auto) (0-2) % Lymph # (Auto) (1.2-4.9) X10*3/uL Stoddard # (Auto) (0.1-1.2) X10*3/uL Eos # (Auto) (0.0-0.4) X10*3/uL Baso # (Auto) (0.0-0.2) X10*3/uL Abs Immat Gran (auto) (0.00-0.03) X10*3/uL Absolute Neuts (auto) (2.0-8.3) x10*3/uL Absolute Nucleated RBC (0.0-0.012) X10*3/uL Nucleated RBC % (auto) (0.0-0.2) /100WBC PT 10.8 (9.9-13.0) SEC INR 1.0 (0.9-1.1) APTT 33.7 (24.1-38.0) SEC D-Dimer High Sensitivty NG/ML Sodium (135-145) mmol/L Potassium (3.3-5.1) mmol/L Chloride (96-108) mmol/L Carbon Dioxide (22-29) mmol/L Anion Gap (12-20) BUN (9-16) mg/dL Creatinine (0.5-1.4) mg/dL Estim Creat Clear Calc Estimated GFR Random Glucose (60-115) mg/dL Lactic Acid 1.6 (0.5-2.0) mmol/L Calcium (8.4-10.2) mg/dL Total Bilirubin (0.0-1.0) mg/dL Direct Bilirubin (0.0-0.5) mg/dL AST (5-31) U/L ALT (0-31) U/L Alkaline Phosphatase (39-117) U/L Troponin I High Sens < 3.5 (<3.5-17.0) ng/L B-Natriuretic Peptide (<100) pg/mL Total Protein (6.5-8.0) g/dL Albumin (3.5-5.0) g/dL COVID-19 (DONAVAN) (Negative) COVID-19 Clin Com 02/12/22 02/12/22 Range/Units 12:24 12:24 WBC (4.8-10.8) X10*3/uL RBC (4.20-5.50) X10*6/uL Hgb (12.0-16.0) g/dl Hct (37.0-47.0) % MCV (80.0-98.0) fL MCH (27.0-33.0) pg MCHC (31.0-35.0) g/dl RDW (11.0-16.0) % Plt Count (160-400) X10*3/uL MPV (9.4-12.3) fL Immature Gran % (Auto) (0.0-0.4) % Neut % (Auto) (45-73) % Lymph % (Auto) (20-40) % Stoddard % (Auto) (2-11) % Eos % (Auto) (0-4) % Baso % (Auto) (0-2) % Lymph # (Auto) (1.2-4.9) X10*3/uL Stoddard # (Auto) (0.1-1.2) X10*3/uL Eos # (Auto) (0.0-0.4) X10*3/uL Baso # (Auto) (0.0-0.2) X10*3/uL Abs Immat Gran (auto) (0.00-0.03) X10*3/uL Absolute Neuts (auto) (2.0-8.3) x10*3/uL Absolute Nucleated RBC (0.0-0.012) X10*3/uL Nucleated RBC % (auto) (0.0-0.2) /100WBC PT (9.9-13.0) SEC INR (0.9-1.1) APTT (24.1-38.0) SEC D-Dimer High Sensitivty < 150 NG/ML Sodium (135-145) mmol/L Potassium (3.3-5.1) mmol/L Chloride (96-108) mmol/L Carbon Dioxide (22-29) mmol/L Anion Gap (12-20) BUN (9-16) mg/dL Creatinine (0.5-1.4) mg/dL Estim Creat Clear Calc Estimated GFR Random Glucose (60-115) mg/dL Lactic Acid (0.5-2.0) mmol/L Calcium (8.4-10.2) mg/dL Total Bilirubin (0.0-1.0) mg/dL Direct Bilirubin (0.0-0.5) mg/dL AST (5-31) U/L ALT (0-31) U/L Alkaline Phosphatase (39-117) U/L Troponin I High Sens (<3.5-17.0) ng/L B-Natriuretic Peptide < 10 (<100) pg/mL Total Protein (6.5-8.0) g/dL Albumin (3.5-5.0) g/dL COVID-19 (DONAVAN) (Negative) COVID-19 Clin Com Imaging Data Chest x-ray: Radiologist's impression: FINDINGS: No significant abnormality is noted involving the heart, lungs, mediastinum, bony thorax or soft tissues. Again seen is some mild eventration of the right hemidiaphragm anteriorly. Degenerative changes are present in the shoulders. XR/XR chest 1V IMPRESSION: No acute intrathoracic disease Discharge Plan Discharge Clinical Impression: COVID-19, Dyspnea Patient Disposition: Home, Self-Care Instructions: COVID-19 (Coronavirus Disease 2019) (ED) Additional Instructions: Please follow-up with your primary care physician tomorrow. If you have any worsening or new symptoms, please return to the emergency room or call 911 Prescriptions: No Action famotidine 40 mg tablet 40 mg PO BEDTIME Qty: 30 3RF potassium citrate 10 mEq (1,080 mg) tablet extended release 20 meq PO BID 30 Days Qty: 120 1RF ceftriaxone 1 gram recon soln 1 g IM DAILY 19 Days Qty: 19 0RF (DME) syringe with needle [BD Luer-Humphrey Syringe] 3 mL 22 x 1 1/2 syringe See Rx Instructions .ROUTE .MEDSUPPLY Qty: 20 0RF Rx Instructions: As directed lidocaine (PF) 10 mg/mL (1 %) syringe See Rx Instructions .ROUTE DAILY 20 Days Qty: 20 0RF Rx Instructions: 1 ml daily; Imbruvica 420 mg Tablet 420 mg PO DAILY 0RF ferrous sulfate [iron] 325 mg (65 mg iron) Tablet 325 mg PO DAILY Qty: 120 6RF ascorbic acid (vitamin C) [Vitamin C] 500 mg Tablet 500 mg PO BID Qty: 120 6RF ondansetron HCl [Zofran] 4 mg tablet 4 mg PO Q8H PRN (Reason: Nausea) 0RF Magic Mouthwash Diphen/Lido/Antacid 1:1:1 240 mL suspension 10 ml PO BID-TID PRN (Reason: Dry Mouth) 0RF Rx Instructions: Lidocaine Viscous 2 % 80mL; diphenhydramine 12.5 mg/5 mL 80mL; aluminum-mag hydrox-simeth [id number]-[id number]/5mL 80mL furosemide 20 mg tablet 2 tab PO QAM 0RF spironolactone 25 mg tablet 25 mg PO DAILY 0RF duloxetine 60 mg capsule,delayed release(DR/EC) 60 mg PO DAILY 0RF cyclobenzaprine 5 mg tablet 5 mg PO BEDTIME 0RF citalopram 20 mg tablet 20 mg PO DAILY 0RF metformin 1,000 mg tablet 1,000 mg PO BID 0RF carvedilol 25 mg tablet 25 mg PO BID 0RF amlodipine 10 mg tablet 10 mg PO DAILY 0RF aspirin [Enteric Coated Aspirin] 81 mg tablet,delayed release (DR/EC) 81 mg PO DAILY Qty: 90 4RF atorvastatin 80 mg tablet 80 mg PO QPM Qty: 90 4RF polyethylene glycol 3350 [Miralax] 17 gram/dose powder 17 g PO DAILY Qty: 238 3RF bisacodyl [Dulcolax (bisacodyl)] 5 mg tablet,delayed release (DR/EC) 10 mg PO ONCE 1 Days Qty: 2 0RF Rx Instructions: take 2 tabs at noon the day before your colonoscopy methenamine hippurate 1 gram tablet 1 g PO DAILY 90 Days Qty: 90 1RF pregabalin 150 mg capsule 150 mg PO BID 0RF fluocinonide 0.05 % cream 1 appl topical BID PRN (Reason: Rash) 0RF sulindac 150 mg tablet 150 mg PO BID 0RF pantoprazole 40 mg tablet,delayed release (DR/EC) 40 mg PO BID Qty: 180 4RF simethicone [Gas Relief (simethicone)] 125 mg capsule 125 mg PO TID-QID PRN (Reason: abdominal distention) Qty: 240 2RF sennosides [Natural Senna Laxative] 8.6 mg tablet 17.2 mg PO BEDTIME Qty: 180 3RF Referrals: Ricardo Breen MD [Primary Care Provider] - 2 days
[2022-02-12 12:30] LABS: MANUAL DIFF FLAG NO
[2022-02-12 12:33] LABS: Basophils Percent Auto 0.5 % (0-2); Eosinophils Absolute Auto 0.1 X10*3/uL (0.0-0.4); Hematocrit 35.8 % (37.0-47.0); Hemoglobin 11.5 g/dl (12.0-16.0); Imm Gran Abs Auto 0.16 X10*3/uL (0.00-0.03); Imm Gran Pct Auto 2.1 % (0.0-0.4); Lymphocytes Percent Auto 25.9 % (20-40); Mean Corpuscular HGB Conc 32.1 g/dl (31.0-35.0); Mean Corpuscular Hemoglobin 28.9 pg (27.0-33.0); Mean Corpuscular Volume 89.9 fL (80.0-98.0); Mean Platelet Volume 11.6 fL (9.4-12.3); Monocytes Absolute Auto 0.6 X10*3/uL (0.1-1.2); Monocytes Percent Auto 7.6 % (2-11); Neutrophils Absolute Auto 4.9 x10*3/uL (2.0-8.3); Neutrophils Percent Auto 62.9 % (45-73); Platelet Count 125 X10*3/uL (160-400); Red Blood Count 3.98 X10*6/uL (4.20-5.50); White Blood Count 7.8 X10*3/uL (4.8-10.8)
[2022-02-12 12:43] LABS: Prothrombin Time 10.8 SEC (9.9-13.0)
[2022-02-12 12:44] LABS: Lactic Acid 1.6 mmol/L (0.5-2.0)
[2022-02-12 12:46] LABS: Partial Thromboplastin Time 33.7 SEC (24.1-38.0)
[2022-02-12 12:48] LABS: Alanine Aminotransferase 17 U/L (0-31); Albumin Level 4.2 g/dL (3.5-5.0); Alkaline Phosphatase 59 U/L (39-117); Anion Gap 15 (12-20); Aspartate Amino Transferase 16 U/L (5-31); Bilirubin Direct 0.4 mg/dL (0.0-0.5); Bilirubin Total 0.9 mg/dL (0.0-1.0); Blood Urea Nitrogen 17 mg/dL (9-16); Calcium 9.3 mg/dL (8.4-10.2); Carbon Dioxide 25 mmol/L (22-29); Chloride 101 mmol/L (96-108); Creatinine Clr Calc Pharmacy 50.5; D Dimer High Sensitivity < 150 NG/ML; Estimated Glomerular Filt Rate 49; Glucose Random 172 mg/dL (60-115); Potassium 4.9 mmol/L (3.3-5.1); Sodium 136 mmol/L (135-145); Total Protein 6.1 g/dL (6.5-8.0)
[2022-02-12 12:55] LABS: B Type Natriuretic Peptide < 10 pg/mL (<100); Troponin-I High Sensitivity < 3.5 ng/L (<3.5-17.0)
[2022-02-12 13:10] VITALS: BP 139/66; PULSE 55; RESP 18; TEMP 36.7; O2SAT 96
[2022-02-12 14:24] VITALS: BP 152/82; PULSE 56; RESP 16; O2SAT 96
[2022-02-12 14:34] VITALS: O2SAT 96
--- NOTE | 2022-02-12 14:35 | PC.NURSE ---
96% on RA during ambulation (about 100ft)
[2022-02-12 17:39] VITALS: BP 174/64; PULSE 62; RESP 16; TEMP 36.7; O2SAT 96
== END 2022-02-12 17:57 | disposition home or self-care (01) ==
PROVIDERS: Emergency Provider Emergency Medicine; PCP Family Medicine
DX: U07.1 COVID-19 (principal); R06.02 Shortness of breath; R60.0 Localized edema; Z85.3 Personal history of malignant neoplasm of breast
CPT/HCPCS: 36415; 71045; 80048; 80076; 83605; 83880; 84484; 85025; 85379; 85610; 85730; 87040; 87635; 93005; 99283; 99284

== ENCOUNTER → 2022-02-16 10:51 | Outpatient (BNVA) | payer MEDICARE, OTHER, SELFPAY | PROVIDERS: PCP Family Medicine; Visit Provider Urology | DX: N31.9 Neuromuscular dysfunction of bladder, unspecified (principal) | CPT/HCPCS: 51705 ==

== ENCOUNTER → 2022-02-20 10:27 | Outpatient (BNVA) | payer MEDICARE, OTHER, SELFPAY | PROVIDERS: PCP Family Medicine; Referring Provider Family Medicine; Visit Provider Internal Medicine | DX: I25.10 Atherosclerotic heart disease of native coronary artery without angina pectoris (principal); I42.2 Other hypertrophic cardiomyopathy; I10 Essential (primary) hypertension; E78.5 Hyperlipidemia, unspecified; E11.9 Type 2 diabetes mellitus without complications; Z79.82 Long term (current) use of aspirin; Z79.84 Long term (current) use of oral hypoglycemic drugs; Z79.899 Other long term (current) drug therapy | CPT/HCPCS: 99212 ==

== ENCOUNTER 2022-03-05 10:08 | Outpatient (REF) | payer MEDICARE, OTHER, SELFPAY | END 2022-03-05 10:09 | disposition home or self-care (01) | LOC: HO.LNP 10:08 | PROVIDERS: Visit Provider Urology | DX: Z13.89 Encounter for screening for other disorder (principal) | CPT/HCPCS: 87086 ==

== ENCOUNTER → 2022-03-16 10:53 | Outpatient (BNVA) | payer MEDICARE, OTHER, SELFPAY | PROVIDERS: PCP Family Medicine; Visit Provider Urology | DX: R33.9 Retention of urine, unspecified (principal) | CPT/HCPCS: 51705 ==

== ENCOUNTER → 2022-03-20 13:36 | Outpatient (BNVA) | payer MEDICARE, OTHER, SELFPAY | PROVIDERS: PCP Family Medicine; Visit Provider Urology | DX: N31.9 Neuromuscular dysfunction of bladder, unspecified (principal); R39.15 Urgency of urination; R33.9 Retention of urine, unspecified; E11.49 Type 2 diabetes mellitus with other diabetic neurological complication; N20.0 Calculus of kidney | CPT/HCPCS: Q3014 ==

== ENCOUNTER 2022-03-24 12:50 | Outpatient (REF) | payer MEDICARE, OTHER, SELFPAY | END 2022-03-24 12:51 | disposition home or self-care (01) | LOC: HO.LNP 12:50 | PROVIDERS: Visit Provider Urology | DX: N39.0 Urinary tract infection, site not specified (principal) | CPT/HCPCS: 87086; 87088; 87186 ==

== ENCOUNTER → 2022-04-13 11:10 | Outpatient (BNVA) | payer MEDICARE, OTHER, SELFPAY | PROVIDERS: PCP Family Medicine; Visit Provider Urology | DX: N31.9 Neuromuscular dysfunction of bladder, unspecified (principal) | CPT/HCPCS: 51705 ==

== ENCOUNTER 2022-04-16 10:05 | Day surgery (SDC) | payer MEDICARE, OTHER, SELFPAY ==
[2022-02-06 11:22] VITALS: BMI 36.2
--- NOTE | 2022-02-09 09:20 | HO.ANESPROP2 ---
HPI - Anesthesia Eval Consult details Narrative: 02/12/22 Pt cx'd self d/t COVID+ 76yo F for Cystoscopy Botox Injection Cardiac cleared Plans for urology procedure noted- bladder botox. Intermediate cardiac risk. 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 s/p suprapubic tube insertion 10/2021 with MAC *Mult med allergies* PMFSH Active Problems Active Problems: All Active Problems (Updated 12/22/21 @ 13:17 by Ceferino Hayes MD) Urinary urgency (Acute) Nephrolithiasis (Acute) Complicated urinary tract infection (Acute) Urinary retention with incomplete bladder emptying (Acute) Breast cancer (Acute) CLL (chronic lymphocytic leukemia) (Acute) Anemia (Acute) Anemia (Acute) Preoperative cardiovascular examination (Acute) Precordial chest pain (Acute) Shortness of breath (Acute) Type 2 diabetes mellitus with unspecified complications (Acute) Essential hypertension (Acute) Hyperlipidemia, unspecified (Acute) Diabetes with neurologic complications (Acute) Abnormal nuclear cardiac imaging test (Acute) Asymmetric septal hypertrophy (Acute) Abnormal myocardial perfusion study (Acute) Atherosclerotic cardiovascular disease (Acute) Neurogenic urinary bladder disorder (Acute) Past Medical History Medical History Arthritis CLL (chronic lymphocytic leukemia) Diabetes mellitus Fibromyalgia History of bilateral breast cancer History of blood transfusion History of CVA (cerebrovascular accident) History of numbness Hypercholesterolemia Hypertension PONV (postoperative nausea and vomiting) Seasonal allergies Self-catheterizes urinary bladder Sleep apnea Wears dentures Family History Family History Mother Breast cancer Father Heart disease Father Lung cancer Mother Colon cancer Brother Pancreatic cancer Family history of problems with anesthesia: No Surgical History Surgical History History of back surgery History of biopsy of bladder History of bladder repair surgery History of esophagogastroduodenoscopy (EGD) History of suprapubic catheter History of total hysterectomy Hx of colonoscopy S/P breast biopsy, right S/P left breast biopsy History of Problems with Anesthesia: Yes (Ponv ) Social History Social History Household Members: Spouse Housing: House Are you a primary lawn care professional to a significant other at home: No Do you presently have visiting nurse or other home services: No Alcohol intake: never Patient Tobacco Use Status: Never used Tobacco Advance Directives: Yes Advance Directives Information Provided: No Advance Directives on File: No service: No Current occupational status: retired Meds Allergies Allergy/AdvReac Type Severity Reaction Status Date / Time amoxicillin [AMOXICILLIN] Allergy Severe stroke, Verified 02/02/22 13:56 blood clots ciprofloxacin [From CIPRO] Allergy Severe ANAPHYLAXIS Verified 02/02/22 13:56 Iodinated Contrast Media Allergy Severe HIVES Verified 02/02/22 13:56 [IV DYE, IODINE CONTAINING CONTRAST ] levofloxacin Allergy Severe Anaphylaxis Verified 02/02/22 13:56 liraglutide Allergy Severe Headache Verified 02/02/22 13:56 Penicillins Allergy Severe stroke, Verified 02/02/22 13:56 blood clots phenazopyridine [Pyridium] Allergy Severe Anaphylaxis Verified 02/02/22 13:56 FREYA Inhibitors Allergy Intermediate Cough Verified 02/02/22 13:56 ARB-Angiotensin Receptor Allergy Intermediate Cough Verified 02/02/22 13:56 Antagonist atorvastatin Allergy Intermediate Shortness Verified 02/02/22 13:56 of Breath cefpodoxime Allergy Intermediate Dizziness, Verified 02/02/22 13:56 nausea celecoxib [From CELEBREX] Allergy Intermediate HIVES Verified 02/02/22 13:56 doxazosin Allergy Intermediate Shortness Verified 02/02/22 13:56 of Breath fluticasone [Advair Diskus] Allergy Intermediate Anxiety Verified 02/02/22 13:56 gabapentin [From Neurontin] Allergy Intermediate Headache Verified 02/02/22 13:56 hydralazine Allergy Intermediate Shortness Verified 02/02/22 13:56 of Breath latex Allergy Intermediate Hives Verified 02/02/22 13:56 linezolid Allergy Intermediate Nausea and Verified 02/02/22 13:56 Vomiting meloxicam Allergy Intermediate Unknown Verified 02/02/22 13:56 salmeterol [Advair Diskus] Allergy Intermediate Anxiety Verified 02/02/22 13:56 Tetanus Vaccines and Toxoid Allergy Intermediate Swelling Verified 02/02/22 13:56 torsemide Allergy Intermediate Shortness Verified 02/02/22 13:56 of Breath cephalexin [Keflex] Allergy Mild Nausea Verified 02/02/22 13:56 Home Medications Medication Instructions Recorded Confirmed Last Taken Type citalopram 20 mg tablet 20 mg PO DAILY 07/21/20 11/16/21 10/23/21 05:30 History cyclobenzaprine 5 mg tablet 5 mg PO BEDTIME 07/21/20 11/16/21 Unknown History duloxetine 60 mg capsule,delayed 60 mg PO DAILY 07/21/20 11/16/21 10/23/21 05:30 History release spironolactone 25 mg tablet 25 mg PO DAILY 07/21/20 11/16/21 Unknown History ibrutinib 420 mg tablet (Imbruvica) 420 mg PO DAILY 09/07/20 11/16/21 Unknown History amlodipine 10 mg tablet 10 mg PO DAILY 03/23/21 11/16/21 10/23/21 05:30 History metformin 1,000 mg tablet 1,000 mg PO BID 04/19/21 11/16/21 Unknown History carvedilol 25 mg tablet 25 mg PO BID 05/31/21 11/16/21 10/23/21 05:30 History Magic Mouthwash 10 ml PO BID-TID PRN Dry Mouth 06/21/21 11/16/21 Unknown History Diphen/Lido/Antacid 1:1:1 240 mL suspension ondansetron HCl 4 mg tablet 4 mg PO Q8H PRN Nausea 06/21/21 11/16/21 Unknown History (Zofran) fluocinonide 0.05 % topical cream 1 appl topical BID PRN Rash 07/27/21 11/16/21 Unknown History pregabalin 150 mg capsule 150 mg PO BID 07/27/21 11/16/21 10/23/21 05:30 History sulindac 150 mg tablet 150 mg PO BID 07/27/21 11/16/21 Unknown History furosemide 20 mg tablet 2 tab PO QAM 10/17/21 11/16/21 Unknown History Exam Exam Date and Time: February 09, 2022 0920 Height,Weight and Vital Signs: Height 5 ft 4 in Weight 95.708 kg Pertinent Lab Results Pertinent Lab Results: Laboratory Tests 11/16/21 11/16/21 13:04 13:04 WBC 8.4 Hgb 11.1 L Hct 36.2 L Plt Count 154 L Sodium 139 Potassium 4.7 Chloride 102 Carbon Dioxide 26 BUN 22 H Creatinine 1.18 Narrative Narrative: Cath 07/2021 Cardiac catheterization reviewed 70% mid-LAD stenosis; 70% OM 1 and 60% proximal RCA stenosis.? At this time, for medical management. EKG 04/2021 sinus rhythm at 72/Min; leftward axis; nonspecific ST-T changes NM cardiolite stress test 04/2021 Impression: ? 1.? Myocardial perfusion imaging study shows equivocal apical ischemia 2.? Gated LVEF is 61% 3. Transient ischemic dilatation not present ? EKG is nondiagnostic for ischemia ? ECHO 05/2021 Conclusions: - 1. Normal LV systolic function mild LVH and moderate asymmetric septal hypertrophy with impaired relaxation? 2. Mild aortic regurgitation ? 3. Normal RV systolic pressure ? 4. No gross pericardial effusion ? Assessment and Plan Assessment Anesthesia Assessment: Chart Reviewed Final Anesthetic Review Family History of Problems with Anesthesia: No History of Problems with Anesthesia: Yes (Ponv )
[2022-04-11 09:31] VITALS: BMI 36.3
--- NOTE | 2022-04-13 11:58 | HO.ANESPROP2 ---
Documented by User: Tabby Garcia NP 04/13/22 12:06 HPI - Anesthesia Eval Consult details Narrative: 76yo F for Cystoscopy Botox Injection Cardiac cleared 12/2021 for this procedure. Seen at routine cardiac visit 02/2022. Stable, no symptoms. s/p Suprapubic tube insertion 10/2021 with MAC. *Multiple Med Allergies* PMFSH Active Problems Active Problems: All Active Problems (Updated 02/16/22 @ 13:43 by Armen Worthy MD) COVID-19 (Acute) Urinary urgency (Acute) Nephrolithiasis (Acute) Complicated urinary tract infection (Acute) Urinary retention with incomplete bladder emptying (Acute) Breast cancer (Acute) CLL (chronic lymphocytic leukemia) (Acute) Anemia (Acute) Anemia (Acute) Preoperative cardiovascular examination (Acute) Precordial chest pain (Acute) Shortness of breath (Acute) Type 2 diabetes mellitus with unspecified complications (Acute) Essential hypertension (Acute) Hyperlipidemia, unspecified (Acute) Diabetes with neurologic complications (Acute) Abnormal nuclear cardiac imaging test (Acute) Asymmetric septal hypertrophy (Acute) Abnormal myocardial perfusion study (Acute) Atherosclerotic cardiovascular disease (Acute) Neurogenic urinary bladder disorder (Acute) Past Medical History Medical History Arthritis CLL (chronic lymphocytic leukemia) Diabetes mellitus Fibromyalgia History of bilateral breast cancer History of blood transfusion History of CVA (cerebrovascular accident) History of numbness Hypercholesterolemia Hypertension PONV (postoperative nausea and vomiting) Seasonal allergies Self-catheterizes urinary bladder Sleep apnea Wears dentures Family History Family History Mother Breast cancer Father Heart disease Father Lung cancer Mother Colon cancer Brother Pancreatic cancer Family history of problems with anesthesia: No Surgical History Surgical History History of back surgery History of biopsy of bladder History of bladder repair surgery History of esophagogastroduodenoscopy (EGD) History of suprapubic catheter History of total hysterectomy Hx of colonoscopy S/P breast biopsy, right S/P left breast biopsy History of Problems with Anesthesia: Yes Social History Social History Household Members: Spouse Housing: House Are you a primary critical care registered nurse to a significant other at home: No Do you presently have visiting nurse or other home services: No Alcohol intake: never Patient Tobacco Use Status: Never used Tobacco Advance Directives Date on File: 04/11/22 service: No Current occupational status: retired Meds Allergies Allergy/AdvReac Type Severity Reaction Status Date / Time amoxicillin [AMOXICILLIN] Allergy Severe stroke, Verified 02/20/22 10:45 blood clots ciprofloxacin [From CIPRO] Allergy Severe ANAPHYLAXIS Verified 02/20/22 10:45 Iodinated Contrast Media Allergy Severe HIVES Verified 02/20/22 10:45 [IV DYE, IODINE CONTAINING CONTRAST ] levofloxacin Allergy Severe Anaphylaxis Verified 02/20/22 10:45 liraglutide Allergy Severe Headache Verified 02/20/22 10:45 Penicillins Allergy Severe stroke, Verified 02/20/22 10:45 blood clots phenazopyridine [Pyridium] Allergy Severe Anaphylaxis Verified 02/20/22 10:45 FREYA Inhibitors Allergy Intermediate Cough Verified 02/20/22 10:45 ARB-Angiotensin Receptor Allergy Intermediate Cough Verified 02/20/22 10:45 Antagonist atorvastatin Allergy Intermediate Shortness Verified 02/20/22 10:45 of Breath cefpodoxime Allergy Intermediate Dizziness, Verified 02/20/22 10:45 nausea celecoxib [From CELEBREX] Allergy Intermediate HIVES Verified 02/20/22 10:45 doxazosin Allergy Intermediate Shortness Verified 02/20/22 10:45 of Breath fluticasone [Advair Diskus] Allergy Intermediate Anxiety Verified 02/20/22 10:45 gabapentin [From Neurontin] Allergy Intermediate Headache Verified 02/20/22 10:45 hydralazine Allergy Intermediate Shortness Verified 02/20/22 10:45 of Breath latex Allergy Intermediate Hives Verified 02/20/22 10:45 linezolid Allergy Intermediate Nausea and Verified 02/20/22 10:45 Vomiting meloxicam Allergy Intermediate Unknown Verified 02/20/22 10:45 salmeterol [Advair Diskus] Allergy Intermediate Anxiety Verified 02/20/22 10:45 Tetanus Vaccines and Toxoid Allergy Intermediate Swelling Verified 02/20/22 10:45 torsemide Allergy Intermediate Shortness Verified 02/20/22 10:45 of Breath cephalexin [Keflex] Allergy Mild Nausea Verified 02/20/22 10:45 Home Medications Medication Instructions Recorded Confirmed Last Taken Type citalopram 20 mg tablet 20 mg PO DAILY 07/21/20 04/11/2204/16/22 History cyclobenzaprine 5 mg tablet 5 mg PO BEDTIME 07/21/20 04/11/22 Unknown History duloxetine 60 mg capsule,delayed 60 mg PO DAILY 07/21/20 04/11/22 04/16/22 History release spironolactone 25 mg tablet 25 mg PO DAILY 07/21/20 04/11/22 Unknown History ibrutinib 420 mg tablet (Imbruvica) 420 mg PO DAILY 09/07/20 04/11/22 Unknown History amlodipine 10 mg tablet 10 mg PO DAILY 03/23/21 04/11/22 04/16/22 History metformin 1,000 mg tablet 1,000 mg PO BID 04/19/21 04/11/22 Unknown History carvedilol 25 mg tablet 25 mg PO BID 05/31/21 04/11/22 04/16/22 History Magic Mouthwash 10 ml PO BID-TID PRN Dry Mouth 06/21/21 04/11/22 Unknown History Diphen/Lido/Antacid 1:1:1 240 mL suspension ondansetron HCl 4 mg tablet 4 mg PO Q8H PRN Nausea 06/21/21 04/11/22 Unknown History (Zofran) fluocinonide 0.05 % topical cream 1 appl topical BID PRN Rash 07/27/21 04/11/22 Unknown History pregabalin 150 mg capsule 150 mg PO BID 07/27/21 04/11/22 04/16/22 History sulindac 150 mg tablet 150 mg PO BID 07/27/21 04/11/22 04/15/22 History furosemide 20 mg tablet 2 tab PO QAM 10/17/21 04/11/22 Unknown History cefuroxime axetil 500 mg tablet 1 tab PO BID 04/16/22 04/16/22 04/16/22 History Exam Exam Date and Time: April 13, 2022 1158 Height,Weight and Vital Signs: Height 5 ft 4 in Weight 96.162 kg Pertinent Lab Results Pertinent Lab Results: Laboratory Tests 02/16/22 02/16/22 13:28 13:28 WBC 7.9 Hgb 11.6 L Hct 35.9 L Plt Count 141 L Sodium 137 Potassium 5.1 Chloride 99 Carbon Dioxide 30 H BUN 24 H Creatinine 1.29 Narrative Narrative: Cath 07/2021 Cardiac catheterization reviewed 70% mid-LAD stenosis; 70% OM 1 and 60% proximal RCA stenosis.? At this time, for medical management. EKG 02/2022 Vent. Rate : 056 BPM ? ? Atrial Rate : 056 BPM ?? P-R Int : 172 ms? QRS Dur : 110 ms ? ? QT Int : 454 ms ? ? ? P-R-T Axes : 057 -23 014 degrees ?? QTc Int : 438 ms ? Sinus bradycardia Minimal voltage criteria for LVH, may be normal variant ( [place] product ) Borderline ECG When compared with ECG of 17-APR-2020 03:09, QT has shortened NM cardiolite stress test 04/2021 Impression: ? 1.? Myocardial perfusion imaging study shows equivocal apical ischemia 2.? Gated LVEF is 61% 3. Transient ischemic dilatation not present ? EKG is nondiagnostic for ischemia ? ECHO 05/2021 Conclusions: - 1. Normal LV systolic function mild LVH and moderate asymmetric septal hypertrophy with impaired relaxation? 2. Mild aortic regurgitation ? 3. Normal RV systolic pressure ? 4. No gross pericardial effusion ? Assessment and Plan Assessment Anesthesia Assessment: Chart Reviewed Final Anesthetic Review Family History of Problems with Anesthesia: No History of Problems with Anesthesia: Yes Documented by User: Nick Mario MD 04/16/22 17:18 HPI - Anesthesia Eval Consult details Narrative: 76yo F for Cystoscopy Botox Injection Cardiac cleared 12/2021 for this procedure. Seen at routine cardiac visit 02/2022. Stable, no symptoms. back pain s/p Suprapubic tube insertion 10/2021 with MAC. *Multiple Med Allergies* PMFSH Past Medical History Medical History Arthritis CLL (chronic lymphocytic leukemia) Diabetes mellitus Fibromyalgia History of bilateral breast cancer History of blood transfusion History of CVA (cerebrovascular accident) History of numbness Hypercholesterolemia Hypertension PONV (postoperative nausea and vomiting) Seasonal allergies Self-catheterizes urinary bladder Sleep apnea Wears dentures Functional capacity: independent ambulation Family History Family History Mother Breast cancer Father Heart disease Father Lung cancer Mother Colon cancer Brother Pancreatic cancer Surgical History Surgical History History of back surgery History of biopsy of bladder History of bladder repair surgery History of esophagogastroduodenoscopy (EGD) History of suprapubic catheter History of total hysterectomy Hx of colonoscopy S/P breast biopsy, right S/P left breast biopsy History of Problems with Anesthesia: Yes (Ponv ) Social History Social History Household Members: Spouse Housing: House Are you a primary critical care registered nurse to a significant other at home: No Do you presently have visiting nurse or other home services: No Alcohol intake: never Patient Tobacco Use Status: Never used Tobacco Advance Directives Date on File: 04/11/22 service: No Current occupational status: retired Meds Allergies Allergy/AdvReac Type Severity Reaction Status Date / Time amoxicillin [AMOXICILLIN] Allergy Severe stroke, Verified 02/20/22 10:45 blood clots ciprofloxacin [From CIPRO] Allergy Severe ANAPHYLAXIS Verified 02/20/22 10:45 Iodinated Contrast Media Allergy Severe HIVES Verified 02/20/22 10:45 [IV DYE, IODINE CONTAINING CONTRAST ] levofloxacin Allergy Severe Anaphylaxis Verified 02/20/22 10:45 liraglutide Allergy Severe Headache Verified 02/20/22 10:45 Penicillins Allergy Severe stroke, Verified 02/20/22 10:45 blood clots phenazopyridine [Pyridium] Allergy Severe Anaphylaxis Verified 02/20/22 10:45 FREYA Inhibitors Allergy Intermediate Cough Verified 02/20/22 10:45 ARB-Angiotensin Receptor Allergy Intermediate Cough Verified 02/20/22 10:45 Antagonist atorvastatin Allergy Intermediate Shortness Verified 02/20/22 10:45 of Breath cefpodoxime Allergy Intermediate Dizziness, Verified 02/20/22 10:45 nausea celecoxib [From CELEBREX] Allergy Intermediate HIVES Verified 02/20/22 10:45 doxazosin Allergy Intermediate Shortness Verified 02/20/22 10:45 of Breath fluticasone [Advair Diskus] Allergy Intermediate Anxiety Verified 02/20/22 10:45 gabapentin [From Neurontin] Allergy Intermediate Headache Verified 02/20/22 10:45 hydralazine Allergy Intermediate Shortness Verified 02/20/22 10:45 of Breath latex Allergy Intermediate Hives Verified 02/20/22 10:45 linezolid Allergy Intermediate Nausea and Verified 02/20/22 10:45 Vomiting meloxicam Allergy Intermediate Unknown Verified 02/20/22 10:45 salmeterol [Advair Diskus] Allergy Intermediate Anxiety Verified 02/20/22 10:45 Tetanus Vaccines and Toxoid Allergy Intermediate Swelling Verified 02/20/22 10:45 torsemide Allergy Intermediate Shortness Verified 02/20/22 10:45 of Breath cephalexin [Keflex] Allergy Mild Nausea Verified 02/20/22 10:45 Home Medications Medication Instructions Recorded Confirmed Last Taken Type citalopram 20 mg tablet 20 mg PO DAILY 07/21/20 04/11/22 04/16/22 History cyclobenzaprine 5 mg tablet 5 mg PO BEDTIME 07/21/20 04/11/22 Unknown History duloxetine 60 mg capsule,delayed 60 mg PO DAILY 07/21/20 04/11/22 04/16/22 History release spironolactone 25 mg tablet 25 mg PO DAILY 07/21/20 04/11/22 Unknown History ibrutinib 420 mg tablet (Imbruvica) 420 mg PO DAILY 09/07/20 04/11/22 Unknown History amlodipine 10 mg tablet 10 mg PO DAILY 03/23/21 04/11/22 04/16/22 History metformin 1,000 mg tablet 1,000 mg PO BID 04/19/21 04/11/22 Unknown History carvedilol 25 mg tablet 25 mg PO BID 05/31/21 04/11/22 04/16/22 History Magic Mouthwash 10 ml PO BID-TID PRN Dry Mouth 06/21/21 04/11/22 Unknown History Diphen/Lido/Antacid 1:1:1 240 mL suspension ondansetron HCl 4 mg tablet 4 mg PO Q8H PRN Nausea 06/21/21 04/11/22 Unknown History (Zofran) fluocinonide 0.05 % topical cream 1 appl topical BID PRN Rash 07/27/21 04/11/22 Unknown History pregabalin 150 mg capsule 150 mg PO BID 07/27/21 04/11/22 04/16/22 History sulindac 150 mg tablet 150 mg PO BID 07/27/21 04/11/22 04/15/22 History furosemide 20 mg tablet 2 tab PO QAM 10/17/21 04/11/22 Unknown History cefuroxime axetil 500 mg tablet 1 tab PO BID 04/16/22 04/16/22 04/16/22 History Exam Airway Mallampati Class: IV Neck ROM: Full Denture: Upper and Lower Loose/Missing/Broken Teeth: Yes Heart: S1,S2 Lungs: b/l breath sounds Assessment and Plan Assessment Anesthesia Assessment: Anesthesia Plan Discussed Final Anesthetic Review History of Problems with Anesthesia: Yes (Ponv ) NPO: Yes ASA Class: III Final Preanesthetic Review: Meds/Allgs Chart Reviewed, Consent Obtained/Reviewed and Anes Risks/Benef Reviewed Patient Risk: Intermediate Procedure Risk: Intermediate Anesthetic Plan Anesthetic Plan: GA Disposition: Standard PACU
[2022-04-16 10:34] VITALS: PULSE 63; RESP 18; TEMP 36.2; O2SAT 95
[2022-04-16] MEDS: Acetaminophen 325 MG TABLET 650 MG PO (10:52)
[2022-04-16] MEDS: Lactated Ringers 1,000 ML 100 ML IVCONT (10:52)
[2022-04-16 10:53] LABS: Glucose, Whole Blood 202 mg/dL (60-115)
--- NOTE | 2022-04-16 12:35 | PC.NURSE ---
assisted patient oob with one assist and became dizzy when ambulating. lasted approx 15 secs. denies cp. dizziness went away.
--- NOTE | 2022-04-16 12:37 | PC.NURSE ---
patient states she gets dizzy when she gets up too fast.
[2022-04-16 12:38] VITALS: BP 164/60; PULSE 57
--- NOTE | 2022-04-16 12:38 | MHC.SHP ---
Pre-Procedural Eval Section A Date of Service: 04/16/22 The patient is an INPATIENT: No Changes since office visit: No Cold of Flu in the past 2 weeks, No New Medical Problems, No Changes in Medication and No Patient answered all questions The History & Physical has been completed within 30 days and I have reviewed it.: Yes Section B Chief Complaint: urgency of urination Details of Present Illness: botox for bladder spasms Allergies: Allergies Allergy/AdvReac Type Severity Reaction Status Date / Time amoxicillin [AMOXICILLIN] Allergy Severe stroke, Verified 02/20/22 10:45 blood clots ciprofloxacin [From CIPRO] Allergy Severe ANAPHYLAXIS Verified 02/20/22 10:45 Iodinated Contrast Media Allergy Severe HIVES Verified 02/20/22 10:45 [IV DYE, IODINE CONTAINING CONTRAST ] levofloxacin Allergy Severe Anaphylaxis Verified 02/20/22 10:45 liraglutide Allergy Severe Headache Verified 02/20/22 10:45 Penicillins Allergy Severe stroke, Verified 02/20/22 10:45 blood clots phenazopyridine [Pyridium] Allergy Severe Anaphylaxis Verified 02/20/22 10:45 FREYA Inhibitors Allergy Intermediate Cough Verified 02/20/22 10:45 ARB-Angiotensin Receptor Allergy Intermediate Cough Verified 02/20/22 10:45 Antagonist atorvastatin Allergy Intermediate Shortness Verified 02/20/22 10:45 of Breath cefpodoxime Allergy Intermediate Dizziness, Verified 02/20/22 10:45 nausea celecoxib [From CELEBREX] Allergy Intermediate HIVES Verified 02/20/22 10:45 doxazosin Allergy Intermediate Shortness Verified 02/20/22 10:45 of Breath fluticasone [Advair Diskus] Allergy Intermediate Anxiety Verified 02/20/22 10:45 gabapentin [From Neurontin] Allergy Intermediate Headache Verified 02/20/22 10:45 hydralazine Allergy Intermediate Shortness Verified 02/20/22 10:45 of Breath latex Allergy Intermediate Hives Verified 02/20/22 10:45 linezolid Allergy Intermediate Nausea and Verified 02/20/22 10:45 Vomiting meloxicam Allergy Intermediate Unknown Verified 02/20/22 10:45 salmeterol [Advair Diskus] Allergy Intermediate Anxiety Verified 02/20/22 10:45 Tetanus Vaccines and Toxoid Allergy Intermediate Swelling Verified 02/20/22 10:45 torsemide Allergy Intermediate Shortness Verified 02/20/22 10:45 of Breath cephalexin [Keflex] Allergy Mild Nausea Verified 02/20/22 10:45 Review of Systems Sugical H&P ROS: Negative: Constitution, Cardiovascular, Respiratory, Neurological, Psychiatric, Hem-Onc, Allergic/Immunologic, Gastrointestinal, Genitourinary, Musculoskeletal, Integumentary, Endocrine and Eyes/Ears/Nose/Throat Exam Surgical H&P Exam: Normal: HEENT, Normal: Heart, Normal: Lungs, Normal: Extremities, Normal: Abdomen, Normal: Skin and Normal: Neurological Plan Diagnosis/Plan: Unchanged I have reviewed the history and physical and performed a pertinent physical examination on my patient. No changes have occurred unless specified.
--- NOTE | 2022-04-16 13:15 | W.PM.OPN ---
Operative Note Operative Note Date of Service: 04/16/22 Narrative: PreOperative Diagnosis: Neurogenic bladder with spasm Post Operative Diagnosis: neurogenic bladder with spasm Procedure: Cystoscopy with injection 100 units Botox intra detrusor muscle Surgeon: Dr Ceferino Hayes Anesthesia: Sedation Indications for procedure: Is a very pleasant 76-year-old female. Has neurogenic bladder with incomplete emptying secondary to long-term diabetes. Also associated diabetic cystopathy with spasm. Indwelling suprapubic tube. Has Botox to prevent bladder spasm. Procedure: After informed consent was verified the patient was brought to the operating room and placed in a supine position. Anesthesia was administered per protocol. Cystoscopy performed with 22 Bengali cystoscope. Bladder was emptied of urine. Bladder was refilled. Using 100 units of Botox mixed in 10 cc of normal saline injections were placed at the back wall of the bladder. 0.5cc placed at each injection site. Injections were placed in a grid 5 across and for high. Injections were placed from the inferior to superior position. Trabeculations on the bladder wall with targeted for each injection site. Procedure was tolerated well. Patient was extubated and transferred in stable condition to the recovery area. Pathology: None Drains: None
[2022-04-16 13:23] VITALS: BP 150/68; PULSE 55; RESP 20; TEMP 36.2; O2SAT 98
[2022-04-16 13:28] VITALS: BP 145/63; PULSE 56; RESP 18; O2SAT 99
[2022-04-16 13:33] VITALS: BP 153/67; PULSE 58; RESP 18; O2SAT 99
[2022-04-16 13:38] VITALS: BP 151/64; PULSE 58; RESP 18; TEMP 36.3; O2SAT 100
== END 2022-04-16 14:27 | disposition home or self-care (01) ==
PROVIDERS: PCP Family Medicine; Visit Provider Urology
PROC: 3E0K8GC Introduction of Other Therapeutic Substance into Genitourinary Tract, Via Natural or Artificial Opening Endoscopic (ICD-10-PCS; CPT 52287; principal; 2022-04-16 12:40)
DX: N31.9 Neuromuscular dysfunction of bladder, unspecified (principal); R39.15 Urgency of urination; R33.9 Retention of urine, unspecified; N32.89 Other specified disorders of bladder; I10 Essential (primary) hypertension; E11.49 Type 2 diabetes mellitus with other diabetic neurological complication; M79.7 Fibromyalgia; C91.10 Chronic lymphocytic leukemia of B-cell type not having achieved remission; G47.33 Obstructive sleep apnea (adult) (pediatric); J30.2 Other seasonal allergic rhinitis; Z79.51 Long term (current) use of inhaled steroids; Z79.899 Other long term (current) drug therapy; Z88.0 Allergy status to penicillin; Z88.1 Allergy status to other antibiotic agents; Z88.8 Allergy status to other drugs, medicaments and biological substances; Z91.041 Radiographic dye allergy status; Z86.73 Personal history of transient ischemic attack (TIA), and cerebral infarction without residual deficits; Z85.3 Personal history of malignant neoplasm of breast; Z97.2 Presence of dental prosthetic device (complete) (partial); Z98.890 Other specified postprocedural states; Z79.84 Long term (current) use of oral hypoglycemic drugs
CPT/HCPCS: 52287; 82947; J0585; J0696; J2405

== ENCOUNTER 2022-04-23 09:55 | Outpatient (REF) | payer MEDICARE, OTHER, SELFPAY | END 2022-04-23 09:56 | disposition home or self-care (01) | LOC: HO.LNP 09:55 | PROVIDERS: Visit Provider Urology | DX: R39.9 Unspecified symptoms and signs involving the genitourinary system (principal) | CPT/HCPCS: 87086 ==

== ENCOUNTER → 2022-05-01 13:24 | Outpatient (BNVA) | payer MEDICARE, OTHER, SELFPAY | PROVIDERS: PCP Family Medicine; Visit Provider Urology | DX: N31.9 Neuromuscular dysfunction of bladder, unspecified (principal); R33.9 Retention of urine, unspecified; N39.3 Stress incontinence (female) (male); N20.0 Calculus of kidney; R39.15 Urgency of urination; E11.9 Type 2 diabetes mellitus without complications; Z87.440 Personal history of urinary (tract) infections | CPT/HCPCS: 57160; 99212 ==

== ENCOUNTER 2022-05-07 10:31 | Outpatient (REF) | payer MEDICARE, OTHER, SELFPAY | END 2022-05-07 10:32 | disposition home or self-care (01) | LOC: HO.LNP 10:31 | PROVIDERS: Visit Provider Internal Medicine | DX: N39.0 Urinary tract infection, site not specified (principal) | CPT/HCPCS: 87086; 87088; 87186 ==

== ENCOUNTER → 2022-05-11 13:06 | Outpatient (BNVA) | payer MEDICARE, OTHER, SELFPAY | PROVIDERS: Visit Provider Urology | DX: N31.9 Neuromuscular dysfunction of bladder, unspecified (principal) | CPT/HCPCS: 51705 ==

== ENCOUNTER 2022-05-22 10:47 | Outpatient (REF) | payer MEDICARE, OTHER, SELFPAY | END 2022-05-22 10:48 | disposition home or self-care (01) | LOC: HO.LNP 10:47 | PROVIDERS: Visit Provider Urology | DX: R82.90 Unspecified abnormal findings in urine (principal) | CPT/HCPCS: 87086; 87088; 87186 ==

== ENCOUNTER → 2022-05-28 08:32 | Day surgery (SDC) | payer MEDICARE, OTHER, SELFPAY | PROVIDERS: Radiology Diagnostic Radiology; PCP Family Medicine; Visit Provider Urology | DX: Z16.35 Resistance to multiple antimicrobial drugs (principal); G47.33 Obstructive sleep apnea (adult) (pediatric) ==

== ENCOUNTER 2022-05-28 08:35 | Outpatient (REF) | payer MEDICARE, OTHER, SELFPAY ==
--- NOTE | 2022-05-28 11:27 | HO.PICC ---
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 Following completion of [place] Protocol the skin and soft tissues were anesthetized with 1% Lidocaine plain. Using ultrasound guidance, right basilic vein access was attempted twice by Bethel Dietrich RN, unsuccessfully. Right basilic vein access was obtained on first attempt by Kirby Lagunas RN. Over an 0.018 wire through peel-away sheath, a 4FR Single Lumen PICC line was positioned. Catheter length is 42 CM internal length, 0 CM external length, for a total trimmed length of 42 CM. The procedure was performed in S272. Tip verification was performed by Aashish Durán with Sherlock 3CG. Tip located in SVC. Ultrasound was used to document vein patency and for needle entry. A formal ultrasound picture and cardiac rhythm strip was recorded. Vascular Coding Educator has released the line for use and it is currently dressed with a StatLock, Tegaderm, and CHG disc. Verification has been performed for blood return and line patency. Arm Circumference: 29 CM Equipment: [employer] Accounting Power PICC SOLO Catheter Type: 4 FR Single Lumen PASV PICC Lot #: [id number]
[2022-05-28 12:09] LABS: Estimated Glomerular Filt Rate 51
== END 2022-05-28 08:36 | disposition home or self-care (01) ==
LOC: HO.MDS 08:35
PROVIDERS: Visit Provider Urology
DX: Z45.2 Encounter for adjustment and management of vascular access device (principal); N39.0 Urinary tract infection, site not specified
CPT/HCPCS: 36415; 36573; 82565; 96365; C1751; J1580

== ENCOUNTER 2022-05-29 11:19 | Outpatient (REF) | payer MEDICARE, OTHER, SELFPAY ==
[2022-05-30 07:09] LABS: Gentamicin Trough 5.4 mcg/mL (0.3-1.9)
== END 2022-05-29 11:20 | disposition home or self-care (01) ==
LOC: HO.MDS 11:19
PROVIDERS: Visit Provider Urology
DX: Z45.2 Encounter for adjustment and management of vascular access device (principal); N39.0 Urinary tract infection, site not specified
CPT/HCPCS: 36415; 80170; 96365; J1580

== ENCOUNTER 2022-05-30 11:20 | Outpatient (REF) | payer MEDICARE, OTHER, SELFPAY | END 2022-05-30 11:21 | disposition home or self-care (01) | LOC: HO.MDS 11:20 | PROVIDERS: PCP Family Medicine; Visit Provider Urology | DX: Z45.2 Encounter for adjustment and management of vascular access device (principal); N39.0 Urinary tract infection, site not specified | CPT/HCPCS: 96365; J1580 ==

== ENCOUNTER 2022-05-31 11:20 | Outpatient (REF) | payer MEDICARE, OTHER, SELFPAY | END 2022-05-31 11:21 | disposition home or self-care (01) | LOC: HO.MDS 11:20 | PROVIDERS: Visit Provider Urology | DX: Z45.2 Encounter for adjustment and management of vascular access device (principal); N39.0 Urinary tract infection, site not specified | CPT/HCPCS: 96365; J1580 ==

== ENCOUNTER 2022-06-01 11:15 | Outpatient (REF) | payer MEDICARE, OTHER, SELFPAY | END 2022-06-01 11:16 | disposition home or self-care (01) | LOC: HO.MDS 11:15 | PROVIDERS: Visit Provider Urology | DX: Z45.2 Encounter for adjustment and management of vascular access device (principal); N39.0 Urinary tract infection, site not specified | CPT/HCPCS: 96365; J1580 ==

== ENCOUNTER 2022-06-04 11:30 | Outpatient (REF) | payer MEDICARE, OTHER, SELFPAY | END 2022-06-04 11:31 | disposition home or self-care (01) | LOC: HO.MDS 11:30 | PROVIDERS: Visit Provider Urology | DX: Z45.2 Encounter for adjustment and management of vascular access device (principal); N39.0 Urinary tract infection, site not specified; K59.04 Chronic idiopathic constipation; K21.9 Gastro-esophageal reflux disease without esophagitis; R14.0 Abdominal distension (gaseous) | CPT/HCPCS: 96365; 99212; J1580 ==

== ENCOUNTER 2022-06-05 11:08 | Outpatient (REF) | payer MEDICARE, OTHER, SELFPAY | END 2022-06-05 11:09 | disposition home or self-care (01) | LOC: HO.MDS 11:08 | PROVIDERS: Visit Provider Urology | DX: Z45.2 Encounter for adjustment and management of vascular access device (principal); N39.0 Urinary tract infection, site not specified | CPT/HCPCS: 96365; J1580 ==

== ENCOUNTER 2022-06-06 11:15 | Outpatient (REF) | payer MEDICARE, OTHER, SELFPAY | END 2022-06-06 11:16 | disposition home or self-care (01) | LOC: HO.MDS 11:15 | PROVIDERS: Visit Provider Urology | DX: N39.0 Urinary tract infection, site not specified (principal) | CPT/HCPCS: 96365; J1580 ==

== ENCOUNTER 2022-06-07 11:10 | Outpatient (REF) | payer MEDICARE, OTHER, SELFPAY ==
[2022-06-07 16:19] LABS: Appearance Urine Clear; Color Urine Yellow; Glucose Urine UA Negative (Negative); Leukocyte Esterase Urine Moderate (2+) (Negative); Nitrite Urine Negative (Negative); Specific Gravity - Urine 1.015 (1.005-1.025); UMIC TRIGGER UA YES; Urine Blood Moderate (2+) (Negative); Urine Ketones Negative (Negative); Urine Protein 30 (1+) mg/dL (Neg-Trace)
[2022-06-07 16:24] LABS: Bacteria Urine None Seen (None Seen); Hyaline Casts Urine 0-2 /LPF (0-2); RBC Urine >20 /HPF (0-2); Squamous Epithelial Cell Urine 0-2 /HPF (0-2); WBC Urine 21-50 /HPF (0-5)
== END 2022-06-07 11:11 | disposition home or self-care (01) ==
LOC: HO.MDS 11:10
PROVIDERS: Visit Provider Urology
DX: Z45.2 Encounter for adjustment and management of vascular access device (principal); N39.0 Urinary tract infection, site not specified; B95.7 Other staphylococcus as the cause of diseases classified elsewhere; B96.89 Other specified bacterial agents as the cause of diseases classified elsewhere; Z16.11 Resistance to penicillins
CPT/HCPCS: 81001; 87086; 87088; 87186; 96365; J1580

== ENCOUNTER 2022-06-08 10:48 | Outpatient (REF) | payer MEDICARE, OTHER, SELFPAY | END 2022-06-08 10:49 | disposition home or self-care (01) | LOC: HO.MDS 10:48 | PROVIDERS: Visit Provider Urology | DX: Z45.2 Encounter for adjustment and management of vascular access device (principal); N39.0 Urinary tract infection, site not specified | CPT/HCPCS: 51705; 96365; J1580 ==

== ENCOUNTER → 2022-06-13 11:04 | Outpatient (BNVA) | payer MEDICARE, OTHER, SELFPAY | PROVIDERS: PCP Family Medicine; Visit Provider Surgery Vascular Surgery | DX: I83.12 Varicose veins of left lower extremity with inflammation (principal) | CPT/HCPCS: 99212 ==

== ENCOUNTER 2022-06-14 08:25 | Outpatient (REF) | payer MEDICARE, OTHER, SELFPAY ==
--- NOTE | 2022-06-14 09:09 | HO.PICC ---
PICC Line Insertion NPICC Removal 06/14/22 Diagnosis: Urinary tract infection Indication: [antibiotic no longer needed on PO antibiotics] Pertinent Labs: [reviewed] Technique: Following informed consent including risks, benefits and alternatives and using sterile technique . PICC line removal per order. IV antibiotic no longer needed. PICC line removed. The patient tolerated the procedure well. DSD applied. No bleeding noted. No hematoma noted. Patient taken by wheel chair with to entrance. Patient discharged home. Insertion length 42 cm Removal length 42 cm intact
== END 2022-06-14 08:26 | disposition home or self-care (01) ==
LOC: HO.RADIR 08:25
PROVIDERS: Visit Provider Urology
DX: Z13.89 Encounter for screening for other disorder (principal)

== ENCOUNTER 2022-06-28 16:20 | Outpatient (REF) | payer MEDICARE, OTHER, SELFPAY ==
--- NOTE | ~2022-06-28 | MM_ITS ---
EXAMINATION: MM SCREENING DIGITAL BREAST TOMOSYNTHESIS, BILATERAL CLINICAL INFORMATION: Remote bilateral breast cancer status post left lumpectomy 2005, and right lumpectomy 1999. Due for yearly. COMPARISON: Mammography: 06/27/2021, 06/09/2020, 06/04/2019 TECHNIQUE: Digital breast tomosynthesis is performed in both the craniocaudal and mediolateral oblique views along with computer-aided detection (CAD). Synthesized 2D images are generated from the tomosynthesis. Additional exaggerated right CC, left MLO, and bilateral MLO views are provided. FINDINGS: There are scattered areas of fibroglandular density (ACR BI-RADS breast composition Category b). There are bilateral post therapy changes with stable scarring similar to prior studies. Neither breast shows interval mass or architectural abnormality or abnormal calcifications. Incidental benign dystrophic calcification within left scarring mid 12:00 position. The bilateral axilla are unremarkable. There are no significant changes. MM/MM tomosynthesis screening BI IMPRESSION: -No mammographic evidence of malignancy. -Bilateral post therapy changes. ASSESSMENT: BI-RADS 2: Benign RECOMMENDATION: Routine annual mammography screening. This patient's information was entered into a reminder system with a target due date for their next mammogram.
== END 2022-06-28 16:21 | disposition home or self-care (01) ==
LOC: HO.MAMMO 16:20
PROVIDERS: Visit Provider Internal Medicine Medical Oncology
DX: Z12.31 Encounter for screening mammogram for malignant neoplasm of breast (principal)
CPT/HCPCS: 77063; 77067

== ENCOUNTER → 2022-07-06 13:24 | Outpatient (BNVA) | payer MEDICARE, OTHER, SELFPAY | PROVIDERS: PCP Family Medicine; Visit Provider Urology | DX: N31.9 Neuromuscular dysfunction of bladder, unspecified (principal) | CPT/HCPCS: 51705 ==

== ENCOUNTER 2022-07-10 12:55 | Outpatient (REF) | payer MEDICARE, OTHER, SELFPAY | END 2022-07-10 12:56 | disposition home or self-care (01) | LOC: HO.LNP 12:55 | PROVIDERS: Visit Provider Urology | DX: R82.71 Bacteriuria (principal); B96.20 Unspecified Escherichia coli [E. coli] as the cause of diseases classified elsewhere | CPT/HCPCS: 87086; 87088; 87186 ==

== ENCOUNTER 2022-07-23 12:03 | Outpatient (REF) | payer MEDICARE, OTHER, SELFPAY ==
[2022-07-23 13:40] LABS: Hematocrit 36.8 % (37.0-47.0); Hemoglobin 12.1 g/dl (12.0-16.0); Mean Corpuscular HGB Conc 32.9 g/dl (31.0-35.0); Mean Corpuscular Volume 91.3 fL (80.0-98.0); Mean Platelet Volume 12.4 fL (9.4-12.3); Platelet Count 184 X10*3/uL (160-400); Red Blood Count 4.03 X10*6/uL (4.20-5.50); Red Cell Distribution Width 13.2 % (11.0-16.0); White Blood Count 9.7 X10*3/uL (4.8-10.8)
[2022-07-23 14:03] LABS: Atypical Lymph Absolute Manual 0.1 x10*3/uL; Atypical Lymphs Percent Manual 1 % (0-6); Band Neutrophils Percent 1 % (3-5); Basophils Abs Manual 0.1 X10*3/uL (0.0-0.2); Basophils Percent Manual 1 % (0-2); Eosinophils Absolute Manual 0.1 X10*3/uL (0.0-0.4); Eosinophils Percent Manual 1 % (0-4); Lymphocytes Absolute Manual 2.8 X10*3/uL (1.2-4.9); Lymphocytes Percent Manual 29 % (20-40); Metamyelocytes Absolute 0.2 X10*3/uL; Metamyelocytes Percent 2 %; Monocytes Absolute Manual 0.9 X10*3/uL (0.1-1.2); Monocytes Percent Manual 9 % (2-11); Neutrophils Absolute Manual 5.5 X10*3/uL (2.0-8.3); Neutrophils Percent Manual 56 % (45-73)
[2022-07-23 14:04] LABS: Large Platelet PRESENT; Platelet Estimate NORMAL (NORMAL); Platelet Morphology Comment NOTED
[2022-07-23 14:05] LABS: Burr Cells 1+ (0-2) /OIF; RBC Morphology NOTED
[2022-07-23 14:28] LABS: Erythrocyte Sedimentation Rate 8 MM/HR (0-20)
[2022-07-23 14:49] LABS: Alanine Aminotransferase 15 U/L (0-31); Albumin Level 3.9 g/dL (3.5-5.0); Alkaline Phosphatase 77 U/L (39-117); Anion Gap 19 (12-20); Aspartate Amino Transferase 20 U/L (5-31); Bilirubin Total 0.8 mg/dL (0.0-1.0); Blood Urea Nitrogen 17 mg/dL (9-16); Calcium 9.6 mg/dL (8.4-10.2); Carbon Dioxide 23 mmol/L (22-29); Chloride 102 mmol/L (96-108); Estimated Glomerular Filt Rate 41; Glucose Random 176 mg/dL (60-115); Sodium 140 mmol/L (135-145); Total Protein 5.6 g/dL (6.5-8.0)
== END 2022-07-23 12:04 | disposition home or self-care (01) ==
LOC: HO.LAB 12:03
PROVIDERS: PCP Family Medicine; Visit Provider Family Medicine
DX: R53.83 Other fatigue (principal); C91.10 Chronic lymphocytic leukemia of B-cell type not having achieved remission
CPT/HCPCS: 36415; 80053; 85007; 85025; 85027; 85652

== ENCOUNTER 2022-07-31 13:49 | Outpatient (REF) | payer MEDICARE, OTHER, SELFPAY | END 2022-07-31 13:50 | disposition home or self-care (01) | LOC: HO.LNP 13:49 | PROVIDERS: Visit Provider Urology | DX: Z13.89 Encounter for screening for other disorder (principal) | CPT/HCPCS: 87086 ==

== ENCOUNTER → 2022-08-06 13:20 | Outpatient (BNVA) | payer MEDICARE, OTHER, SELFPAY | PROVIDERS: PCP Family Medicine; Visit Provider Urology | DX: N31.9 Neuromuscular dysfunction of bladder, unspecified (principal) | CPT/HCPCS: 51705 ==

== ENCOUNTER 2022-08-14 09:51 | Outpatient (REF) | payer MEDICARE, OTHER, SELFPAY ==
--- NOTE | ~2022-08-14 | US_ITS ---
EXAMINATION: US LOWER EXTREMITY VENOUS (REFLUX EXAM), BILATERAL CLINICAL INDICATION: Chronic venous insufficiency with lower extremity varicose veins, status post remote history of ureterocele ablation of the left great saphenous vein COMPARISON: Ultrasound from 08/29/2018 and 07/30/2018 TECHNIQUE: Color flow triplex imaging and compression Doppler was performed to evaluate both the deep and the superficial systems bilaterally. To evaluate the superficial system, the examination was performed in the upright position. Color-flow Doppler ultrasound and compression ultrasound were utilized. In addition, maneuvers were utilized to demonstrate reflux. FINDINGS: 1. DEEP VENOUS ULTRASOUND OF THE RIGHT LOWER EXTREMITY: Common Femoral Vein: Compressible, normal respiratory variation and augmented flow. Femoral Vein: Compressible, normal color flow and augmentation. Popliteal Vein: Compressible, normal augmentation. Deep Reflux: There is no evidence of reflux in the deep system in either the common femoral vein or the popliteal vein. There is no evidence of a Delaney's cyst. 2. SUPERFICIAL ULTRASOUND WITH DOPPLER OF RIGHT LOWER EXTREMITY: GREAT SAPHENOUS VEIN: Saphenofemoral Junction: 0.8 cm; Reflux: 0 ms Proximal Thigh: 0.5 cm; Reflux: Greater than 2928 ms Mid Thigh: 0.4 cm; Reflux: 0 ms Above Knee: 0.3 cm; Reflux: 0 ms At Knee: 0.3 cm; Reflux: 0 ms Below Knee: 0.2 cm; Reflux: Greater than 3160 ms Mid Calf: 0.2 cm; Reflux: Greater than 2832 ms Ankle: 0.3 cm; Reflux: Greater than 2740 ms DUPLICATED MEDIAL GREAT SAPHENOUS VEIN: Diameter: 0.3 cm Reflux: None DUPLICATED LATERAL GREAT SAPHENOUS VEIN: Diameter: None Imaged Reflux: NA SMALL SAPHENOUS VEIN: Proximal: 0.3 cm; Reflux: Greater than 2544 ms Distal: 0.3 cm; Reflux: 2512 ms VEIN OF GIACOMINI: None Imaged. PERFORATORS: Location: Proximal calf Size: 0.2 cm Reflux: 3160 ms VARICOSITIES: Location: None Imaged Size: NA Reflux: NA 3. DEEP VENOUS ULTRASOUND OF THE LEFT LOWER EXTREMITY: Common Femoral Vein: Compressible, normal respiratory variation and augmented flow. Femoral Vein: Compressible, normal color flow and augmentation. Popliteal Vein: Compressible, normal augmentation. Deep Reflux: There is no evidence of reflux in the deep system in either the common femoral vein or the popliteal vein. There is no evidence of a Delaney's cyst. 4. SUPERFICIAL ULTRASOUND WITH DOPPLER OF LEFT LOWER EXTREMITY: GREAT SAPHENOUS VEIN: Saphenofemoral Junction: 0.9 cm; Reflux: Greater than 3084 ms Proximal Thigh: 0.5 cm; Reflux: Greater than 2896 ms Mid Thigh: 0.6 cm; Reflux: Greater than 2460 ms Above Knee: 0.2 cm; Reflux: 0 ms At Knee: 0.2 cm; Reflux: 840 ms Below Knee: 0.2 cm; Reflux: 2516 ms Mid Calf: 0.2 cm; Reflux: 0 ms Ankle: 0.4 cm; Reflux: Greater than 2912 ms DUPLICATED MEDIAL GREAT SAPHENOUS VEIN: Diameter: None Imaged Reflux: NA DUPLICATED LATERAL GREAT SAPHENOUS VEIN: Diameter: 0.3 cm Reflux: None SMALL SAPHENOUS VEIN: Proximal: 0.4 cm; Reflux: 0 ms Distal: 0.2 cm; Reflux: 0 ms VEIN OF GIACOMINI: None Imaged. PERFORATORS: Location: None significant Size: NA Reflux: NA VARICOSITIES: Location: Mid to thigh and proximal calf Size: 0.3 to 0.4 cm Reflux: Ranging from 1352 ms to greater than 2880 ms US/US venous duplex LE BI IMPRESSION: Right: Severe reflux in the right great saphenous vein and small saphenous vein Left: Recanalization of the left great saphenous vein with severe reflux as described above. Reflux in the varicosities in the thigh and calf as described above
== END 2022-08-14 09:52 | disposition home or self-care (01) ==
LOC: HO.US 09:51
PROVIDERS: Visit Provider Surgery Vascular Surgery
DX: I83.12 Varicose veins of left lower extremity with inflammation (principal)
CPT/HCPCS: 93970; 99212

== ENCOUNTER 2022-08-16 10:23 | Outpatient (REF) | payer MEDICARE, OTHER, SELFPAY | END 2022-08-16 10:24 | disposition home or self-care (01) | LOC: HO.LNP 10:23 | PROVIDERS: Visit Provider Urology | DX: N39.0 Urinary tract infection, site not specified (principal) | CPT/HCPCS: 87086; 87088; 87186 ==

== ENCOUNTER 2022-08-21 12:59 | Outpatient (REF) | payer MEDICARE, OTHER, SELFPAY ==
--- NOTE | ~2022-08-21 | MM_ITS ---
EXAMINATION: BONE DENSITOMETRY CLINICAL INDICATION: Asymptomatic menopausal state. COMPARISON: Previous BD dated 06/14/2020 and baseline BD dated 12/26/2007. TECHNIQUE: Using a PowerMag DXA System (software version: 13.1) manufactured by [employer], dual-energy x-ray absorptiometry was performed of the lumbar spine and left hip. The images are of good technical quality. Summary results are attached. FINDINGS: AP SPINE L1-L4 (excluding L2): The data of L1-L4 has been changed to exclude the L2 vertebral body, because degenerative changes at this level may cause overestimation of lumbar spine density. Current: BMD 1.462 g/cm2, Z-score 3.1, T-score 2.4, normal, 6.4% increase from previous, 16.1% increase from baseline (<5% change is not significant). Prior: BMD 1.374 g/cm2. Baseline: BMD 1.259 g/cm2. LEFT FEMUR, NECK: Current: BMD 0.853 g/cm2, Z-score -0.1, T-score -1.3, osteopenia. Prior: BMD 0.782 g/cm2. Baseline: BMD 0.986 g/cm2. LEFT FEMUR, TOTAL: Current: BMD 0.831 g/cm2, Z-score -0.4, T-score -1.4, osteopenia, 6.2% decrease from previous, 23.9% decrease from baseline (<5% change is not significant). Prior: BMD 0.886 g/cm2. Baseline: BMD 1.092 g/cm2. IDENTIFIED RISK FACTORS: Osteoporosis, height loss. Early menopause, secondary osteoporosis, hysterectomy, bilateral oophorectomy. HISTORY OF FRACTURE: None listed. MEDICATIONS: Calcium supplements or multivitamin, vitamin D. MM/XR DEXA axial skeleton IMPRESSION: 1. DIAGNOSIS: Osteopenia based on the lowest T-score value of -1.4 in the total femur applying World Health Organization criteria. 2. 10-YEAR FRACTURE RISK PREDICTION, FRAX: Major osteoporotic fracture (clinical spine, forearm, hip or shoulder) 10.1%. Hip fracture 1.8%. 3. Treatment Recommendations: NOF guidelines recommend consideration for treatment in postmenopausal women and men age 50 and older presenting with the following: -A hip or vertebral (clinical or morphometric) fracture. -T-score less than or equal to -2.5 at the femoral neck or spine after appropriate evaluation to exclude secondary causes. -Low bone mass at the hip or spine and a 10-year fracture probability by FRAX of greater than or equal to 3% for hip fracture or greater than or equal to 20% for major osteoporotic fracture based on the [place] adapted WHO algorithm. 4. Other Recommendations: All treatment decisions require clinical judgment and consideration of individual patient factors, including patient preferences, comorbidities, previous drug use, risk factors not captured in the FRAX model (e.g. frailty, falls, vitamin D deficiency, increased bone turnover, interval significant decline in bone density) and possible under or overestimation of fracture risk by FRAX. Additional medical evaluation for secondary cause of low bone mineral density may be appropriate. FUTURE SCAN RECOMMENDATION: People with diagnosed cases of osteoporosis or at high risk for fracture should have regular bone mineral density tests. For patients eligible for Medicare, routine testing is allowed once every 2 years. The testing frequency can be increased to one year for patients who have rapidly progressing disease, those who are receiving or discontinuing medical therapy to restore bone mass, or have additional risk factors.
== END 2022-08-21 13:00 | disposition home or self-care (01) ==
LOC: HO.MAMMO 12:59
PROVIDERS: PCP Family Medicine; Visit Provider Obstetrics & Gynecology
DX: Z13.820 Encounter for screening for osteoporosis (principal); Z78.0 Asymptomatic menopausal state; I83.12 Varicose veins of left lower extremity with inflammation
CPT/HCPCS: 77080; 99212

== ENCOUNTER 2022-08-27 | Outpatient (REF) | payer MEDICARE, OTHER, SELFPAY ==
--- NOTE | ~2022-08-27 | XR_ITS ---
EXAMINATION: XR PELVIS CLINICAL INFORMATION: Hip pain. COMPARISON: CT abdomen and pelvis of 04/17/2020 TECHNIQUE: AP view of the pelvis. FINDINGS: There is no evidence of acute fracture or diastasis of the pelvis. There is degenerative change of the lower lumbar spine at the L4-L5 and L5-S1 levels. Sacroiliac joints appear unremarkable. There are changes of enthesopathy seen including the iliac crests and right greater trochanter. There is narrowing of the superior joint space of the left hip with some marginal sclerosis. Osteitis pubis present. Prominent vascular calcifications are seen. Device seen overlying the left iliac crest likely external to the patient. XR/XR pelvis 1-2V IMPRESSION: No evidence of acute fracture or diastasis of the pelvis. Degenerative change of the superior aspect of the left hip joint. Degenerative spurring about the right greater trochanter.
== END 2022-08-27 00:01 | disposition home or self-care (01) ==
LOC: HO.HOSX
PROVIDERS: Visit Provider Orthopaedic Surgery
DX: Z01.810 Encounter for preprocedural cardiovascular examination (principal); I25.10 Atherosclerotic heart disease of native coronary artery without angina pectoris; E11.8 Type 2 diabetes mellitus with unspecified complications; I10 Essential (primary) hypertension; E78.5 Hyperlipidemia, unspecified; I42.2 Other hypertrophic cardiomyopathy; M16.11 Unilateral primary osteoarthritis, right hip; M16.12 Unilateral primary osteoarthritis, left hip; C91.10 Chronic lymphocytic leukemia of B-cell type not having achieved remission
CPT/HCPCS: 72170; 93005; 99202; 99212

== ENCOUNTER → 2022-09-04 10:51 | Outpatient (BNVA) | payer MEDICARE, OTHER, SELFPAY | PROVIDERS: PCP Family Medicine; Visit Provider Urology | DX: Z13.89 Encounter for screening for other disorder (principal) | CPT/HCPCS: 52000 ==

== ENCOUNTER 2022-09-05 21:31 | Inpatient (IN) | payer MEDICARE, OTHER, SELFPAY ==
--- NOTE | ~2022-09-05 | CT_ITS ---
EXAMINATION: CT ABDOMEN AND PELVIS WITHOUT CONTRAST CLINICAL INFORMATION: UTIs. Rule out obstruction COMPARISON: Renal ultrasound of December 19, [address] abdomen of April 17, 2020 TECHNIQUE: Multidetector volumetric imaging was performed from the superior aspect of the liver through the pubic symphysis. Sagittal and coronal reformatted images were obtained on the technologist's workstation. This CT examination was performed using dose optimization techniques as appropriate, variously including the following: *Automated exposure control *Adjustment of mA and/or kV according to patient size (this includes techniques or standardized protocols for targeted exams where dose is matched to indication/reason for exam; i.e. extremities or head) *Use of iterative reconstruction technique DLP: 727 mGy-cm FINDINGS: LUNG BASES: The visualized lung bases are unremarkable. No pleural or pericardial effusion identified. Heart normal size. Coronary artery calcifications are seen. LIVER, GALLBLADDER, AND BILIARY TREE: The liver is enlarged measuring approximately 21 cm in vertical span. No focal hepatic lesion or biliary ductal dilatation is present. There is a peripheral calcification adjacent to the inferior capsule of segment 6. There is a nondependent hyperechoic region measuring 1.2 x 0.8 cm in size. This may be related to polyp or adherent calculus. Follow-up is recommended to ensure this does not represent mass of other etiology. PANCREAS: Unremarkable. No abnormal mass or peripancreatic inflammatory changes seen. There is tortuosity of a calcified splenic artery. SPLEEN: Unremarkable. ADRENAL GLANDS: There is again noted to be a 2.4 x 2.0 cm left adrenal gland nodule which is stable in size. Hounsfield unit measurements are 16 Hounsfield units. KIDNEYS AND URETERS: Right kidney: There is perinephric stranding present. Extrarenal pelvis is seen. There is prominence of the calyces similar to previous study of April 17, 2020.. No cortical thinning is seen. There is a subcentimeter cyst upper pole. Ureter appears unremarkable. No collecting system calculi are seen. There is vascular calcification present. Left kidney: Extrarenal pelvis is seen. No hydronephrosis or hydroureter. There is a stable 1.7 x 1.3 cm exophytic lower pole lesion with increase in some peripheral calcification and what appears to be region of fat within it likely related to angiomyolipoma. No cortical thinning. There is some perinephric stranding with question of a lateral interpolar exophytic hyperdense cyst versus scarring in region where there was previous inflammatory change on study of April 17, 2020. No collecting system calculi. Vascular calcification present. BLADDER: Decompressed with Henao catheter in place. No definite bladder calculus is seen. GASTROINTESTINAL TRACT: No dilated loops of large or small bowel are evident. No free air. There is trace amount of free fluid within the pelvis. There is diverticulosis throughout the colon most significant within the sigmoid colon. No definite pericolonic inflammatory change or abnormal fluid collection is seen. With the fluid about the distal sigmoid colon there is a possible with the of acute diverticulitis but this seems unlikely. The appendix appears unremarkable. ABDOMINAL WALL: No significant hernia is appreciated. There is fatty atrophy of the paraspinal muscles. Some iatrogenic air is seen within the anterior abdominal wall related to injections. LYMPH NODES: No lymphadenopathy appreciated. VASCULAR: There is prominent aortoiliac calcified plaque present without evidence of abdominal aortic aneurysm. There is some ostial calcified plaque origin of the visceral vessels. PELVIC VISCERA: Small amount of free fluid. No suspicious mass. OSSEOUS STRUCTURES: There appears be osteopenia visualized bones. No suspicious destructive bony lesion is appreciated. There is significant multilevel degenerative disc disease present with marginal sclerosis and spurring. There is a mild grade 1 spondylolisthesis L4-L5. No acute fractures appreciated. There is mild scoliosis of the thoracic spine convex right and of the lumbar sacral spine convex left. CT/CT abdomen pelvis wo IV con IMPRESSION: No evidence of ileus or obstruction. Diverticular disease without definite evidence of acute diverticulitis. Small amount of free fluid about the pelvis. No evidence of obstructive uropathy. 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 Stable left adrenal gland nodule. Adherent hyperechoic region wall of the gallbladder for which follow-up with ultrasound would be of help in determining stability. Prominent atherosclerotic disease. Fleischner guidelines were followed.
[2022-09-05 21:44] VITALS: BP 176/73; PULSE 93; PULSE 94; RESP 16; TEMP 36; O2SAT 94; O2SAT 95; BMI 36.6
[2022-09-05 21:51] VITALS: BP 180/64; PULSE 92; RESP 18; O2SAT 94
[2022-09-05 22:27] VITALS: BP 162/61; PULSE 91; RESP 22; O2SAT 92
[2022-09-05 23:00] LABS: Appearance Urine Clear; Color Urine Dark Yellow; Glucose Urine UA Negative (Negative); Leukocyte Esterase Urine Small (1+) (Negative); Nitrite Urine Negative (Negative); PH 7.5 (5.0-9.0); Specific Gravity - Urine 1.015 (1.005-1.025); UMIC TRIGGER UACC YES; Urine Blood Small (1+) (Negative); Urine Ketones Negative (Negative); Urine Protein Trace mg/dL (Neg-Trace)
[2022-09-05 23:02] LABS: Bacteria Urine 3+ (None Seen); Hyaline Casts Urine 0-2 /LPF (0-2); RBC Urine >20 /HPF (0-2); Squamous Epithelial Cell Urine 0-2 /HPF (0-2); UACC Culture Trigger YES
--- NOTE | 2022-09-05 23:23 | ED_ITS ---
HPI - General Adult General Chief complaint: General Medical Stated complaint: lethargy Time Seen by Provider: 09/05/22 21:54 Source: patient and EMS Mode of arrival: EMS Limitations: other (Depressed, not talking much) History of Present Illness HPI narrative: Patient comes to the emergency room via ambulance from home. Patient's is at bedside providing history. The reports that the patient has been sleeping the whole day and has been very fatigued. Yesterday, patient had a cystoscopy, prescribed nitrofurantoin. Patient has an extensive history of allergies. He states the urinary tract infection, patient has not been getting up from bed, which is likely secondary to depression. Unfortunately, patient's son 48 hours ago. The states that when the patient gets very stressed, this is what she does, stays in bed, does not eat, does not talk. The reports that when he had a stroke, the patient did the same thing. Related Data Home Medications Medication Instructions Recorded Confirmed citalopram 20 mg tablet 20 mg PO DAILY 07/21/20 08/27/22 cyclobenzaprine 5 mg tablet 5 mg PO BEDTIME 07/21/20 08/27/22 duloxetine 60 mg capsule,delayed 60 mg PO DAILY 07/21/20 08/27/22 release spironolactone 25 mg tablet 25 mg PO DAILY 07/21/20 08/27/22 ibrutinib 420 mg tablet (Imbruvica) 420 mg PO DAILY 09/07/20 08/27/22 amlodipine 10 mg tablet 10 mg PO DAILY 03/23/21 08/27/22 metformin 1,000 mg tablet 1,000 mg PO BID 04/19/21 08/27/22 carvedilol 25 mg tablet 25 mg PO BID 05/31/21 08/27/22 Magic Mouthwash 10 ml PO BID-TID PRN Dry Mouth 06/21/21 08/27/22 Diphen/Lido/Antacid 1:1:1 240 mL suspension fluocinonide 0.05 % topical cream 1 appl topical BID PRN Rash 07/27/21 08/27/22 pregabalin 150 mg capsule 150 mg PO BID 07/27/21 08/27/22 sulindac 150 mg tablet 150 mg PO BID 07/27/21 08/27/22 sitagliptin phosphate 100 mg 100 mg PO QAM 08/21/22 08/27/22 tablet (Januvia) furosemide 20 mg tablet 40 mg PO QAM 08/27/22 08/27/22 blood sugar diagnostic (Accu-Chek #10 ea 09/04/22 Guide test strips) hydralazine 25 mg tablet 25 mg PO TID 09/04/22 Previous Rx's Medication Instructions Recorded aspirin 81 mg tablet,delayed 81 mg PO DAILY #90 tabs 07/10/21 release (Enteric Coated Aspirin) atorvastatin 80 mg tablet 80 mg PO QPM #90 tabs 08/01/21 ferrous sulfate 325 mg (65 mg 325 mg PO DAILY #120 tabs 08/18/21 iron) tablet (iron) polyethylene glycol 3350 17 17 g PO DAILY #238 grams 09/19/21 gram/dose oral powder (Miralax) methenamine hippurate 1 gram tablet 1 g PO DAILY 90 days #90 tabs 11/22/21 potassium citrate 10 mEq (1,080 20 meq PO BID 30 days #120 tabs 12/27/21 mg) tablet,extended release simethicone 125 mg capsule (Gas 125 mg PO TID-QID PRN abdominal 02/02/22 Relief (simethicone)) distention #240 caps syringe with needle 3 mL 22 x 1 #20 ea 04/24/2209/10 (BD Luer-Humphrey Syringe) lidocaine (PF) 10 mg/mL (1 %) See Rx Instructions .Route DAILY 05/08/22 injection syringe complicated UTI 7 days #14 mL famotidine 40 mg tablet 40 mg PO BEDTIME #90 tabs 05/29/22 sulfamethoxazole 800 1 tab PO BID 10 days #20 tabs 06/11/22 mg-trimethoprim 160 mg tablet (Bactrim DS) fosfomycin tromethamine 3 gram 1 packet PO .COMPLEX UTI 07/13/22 oral packet suppression 12 weeks #12 ea pantoprazole 40 mg tablet,delayed 40 mg PO DAILY #90 tabs 08/14/22 release sennosides 8.6 mg tablet (Natural 17.2 mg PO BEDTIME constipation 08/14/22 Senna Laxative) #180 tabs ascorbic acid (vitamin C) 500 mg 500 mg PO BID #120 tabs 08/17/22 tablet (Vitamin C) nitrofurantoin 100 mg PO BID UTI 10 days #20 caps 08/20/22 monohydrate/macrocrystals 100 mg capsule (Macrobid) ondansetron HCl 4 mg tablet 4 mg PO Q8H PRN Nausea 08/29/22 (Zofran) Allergies Allergy/AdvReac Type Severity Reaction Status Date / Time amoxicillin [AMOXICILLIN] Allergy Severe stroke, Verified 09/05/22 21:44 blood clots ciprofloxacin [From CIPRO] Allergy Severe ANAPHYLAXIS Verified 09/05/22 21:44 Iodinated Contrast Media Allergy Severe HIVES Verified 09/05/22 21:44 [IV DYE, IODINE CONTAINING CONTRAST ] levofloxacin Allergy Severe Anaphylaxis Verified 09/05/22 21:44 liraglutide Allergy Severe Headache Verified 09/05/22 21:44 Penicillins Allergy Severe stroke, Verified 09/05/22 21:44 blood clots phenazopyridine [Pyridium] Allergy Severe Anaphylaxis Verified 09/05/22 21:44 FREYA Inhibitors Allergy Intermediate Cough Verified 09/05/22 21:44 ARB-Angiotensin Receptor Allergy Intermediate Cough Verified 09/05/22 21:44 Antagonist atorvastatin Allergy Intermediate Shortness Verified 09/05/22 21:44 of Breath cefpodoxime Allergy Intermediate Dizziness, Verified 09/05/22 21:44 nausea celecoxib [From CELEBREX] Allergy Intermediate HIVES Verified 09/05/22 21:44 doxazosin Allergy Intermediate Shortness Verified 09/05/22 21:44 of Breath fluticasone [Advair Diskus] Allergy Intermediate Anxiety Verified 09/05/22 21:44 gabapentin [From Neurontin] Allergy Intermediate Headache Verified 09/05/22 21:44 hydralazine Allergy Intermediate Shortness Verified 09/05/22 21:44 of Breath latex Allergy Intermediate Hives Verified 09/05/22 21:44 linezolid Allergy Intermediate Nausea and Verified 09/05/22 21:44 Vomiting meloxicam Allergy Intermediate Unknown Verified 09/05/22 21:44 salmeterol [Advair Diskus] Allergy Intermediate Anxiety Verified 09/05/22 21:44 Tetanus Vaccines and Toxoid Allergy Intermediate Swelling Verified 09/05/22 21:44 torsemide Allergy Intermediate Shortness Verified 09/05/22 21:44 of Breath cephalexin [Keflex] Allergy Mild Nausea Verified 09/05/22 21:44 Review of Systems Review of Systems: Yes Unobtainable due to mental condition PMFSH Past Medical History Medical History Anemia Arthritis CLL (chronic lymphocytic leukemia) Diabetes mellitus Fibromyalgia History of bilateral breast cancer History of blood transfusion History of CVA (cerebrovascular accident) History of numbness Hypercholesterolemia Hypertension PONV (postoperative nausea and vomiting) Seasonal allergies Self-catheterizes urinary bladder Sleep apnea Wears dentures Surgical History History of back surgery History of biopsy of bladder History of bladder repair surgery History of esophagogastroduodenoscopy (EGD) History of suprapubic catheter History of total hysterectomy Hx of colonoscopy S/P Botox injection S/P breast biopsy, right S/P left breast biopsy Family History Family History Mother Breast cancer Father Heart disease Father Lung cancer Mother Colon cancer Brother Pancreatic cancer Social History Social History Household Members: Spouse Housing: House Are you a primary managed care specialist to a significant other at home: No Do you presently have visiting nurse or other home services: No Alcohol intake: never Patient Tobacco Use Status: Never used Tobacco Smoked in Last 30 Days: No Use of substances other than those prescribed or required for medical reasons: No Advance Directives: Yes Advance Directives on File: Yes Advance Directives Date on File: 04/11/22 service: No Current occupational status: retired Physical Exam ED Vital Signs: Vital Signs - 24 hr 09/05/22 21:44 09/05/22 21:51 09/05/22 22:27 Temperature 96.8 F Pulse Rate 93 92 91 Respiratory Rate 16 18 22 H Blood Pressure 176/73 H 180/64 H 162/61 H Pulse Oximetry 94 94 92 Oxygen Delivery Method Room Air Room Air Room Air BMI result Body Mass Index 36.6 Const Other: Appearance: Alert. Not talking much, only answering yes no questions Eyes: Pupils equal, round and reactive to light. ENT: Pharynx normal. Neck: Normal inspection. Neck supple. No lymph nodes noted. No crepitus CVS: Normal heart rate and rhythm. Pulses normal. Normal S1 and S2 Respiratory: No respiratory distress. Breath sounds normal. No Wheezing. No rales Abdomen: Soft and nontender. No rigidity. No distention. Skin: Skin warm and dry. Normal skin color. Normal skin turgor. Extremities: No lower extremity edema. No Lacerations. No Rash Neuro: Oriented X 3. No motor deficit. No sensory deficit. Moving all extremities. No slurred speech. CN 2 through 12 grossly intact Psych: calm, seems depressed Course Course Course Narrative: Patient had an uroscopy yesterday. Patient was prescribed nitrofurantoin. Patient denies any fever chills. Today, patient is very weak, could be a UTI or depression, patient's son 2 days ago. Patient does have a UTI, likely from the procedure from yesterday. Unfor tunately, patient has an extensive list of allergies. Her last microbiology culture grew Enterococcus faecalis, sensitive to vanco. Patient was giving IV vancomycin, so far there is no indication that she is allergic to vancomycin. Also, it is likely that patient is weak secondary to depression. Unfortunately, her son 2 days ago. I discussed the patient with Dr. Minaya, patient will be admitted, patient still needs to be seen by [facility] Medical Decision Making Differential Diagnosis Differential Diagnoses: The differential diagnosis associated with the presentation includes (UTI, depression, viral syndrome) Admission/Observation Consideration of admission/observation: Escalation of care including admission/observation considered (Patient had a cystoscopy yesterday, patient will need IV antibiotics, patient's last susceptibility, sensitive to vancomycin, already nitrofurantoin, failed treatment, allergic to ampicillin) Consult Healthcare Provider Management of the patient was discussed with: Hospitalist (Patient will be admitted) Lab Data MDM Lab Attestation statement: I reviewed the patient's lab results. Result Diagrams: 09/05/22 23:21 09/05/22 23:21 Labs: Lab Results 09/05/22 09/05/22 09/05/22 Range/Units 22:53 23:21 23:21 WBC 16.4 H (4.8-10.8) X10*3/uL RBC 3.93 L (4.20-5.50) X10*6/uL Hgb 11.7 L (12.0-16.0) g/dl Hct 35.5 L (37.0-47.0) % MCV 90.3 (80.0-98.0) fL MCH 29.8 (27.0-33.0) pg MCHC 33.0 (31.0-35.0) g/dl RDW 13.2 (11.0-16.0) % Plt Count 126 L (160-400) X10*3/uL MPV 12.3 (9.4-12.3) fL Immature Gran % (Auto) 1.0 H (0.0-0.4) % Neut % (Auto) 78.0 H (45-73) % Lymph % (Auto) 8.8 L (20-40) % [place] % (Auto) 11.9 H (2-11) % Eos % (Auto) 0.1 (0-4) % Baso % (Auto) 0.2 (0-2) % Lymph # (Auto) 1.5 (1.2-4.9) X10*3/uL [place] # (Auto) 2.0 H (0.1-1.2) X10*3/uL Eos # (Auto) 0.0 (0.0-0.4) X10*3/uL Baso # (Auto) 0.0 (0.0-0.2) X10*3/uL Abs Immat Gran (auto) 0.17 H (0.00-0.03) X10*3/uL Absolute Neuts (auto) 12.8 H (2.0-8.3) x10*3/uL Absolute Nucleated RBC 0.000 (0.0-0.012) X10*3/uL Nucleated RBC % (auto) 0.0 (0.0-0.2) /100WBC Smear Tech's Comments VERIFIED Sodium 131 L (135-145) mmol/L Potassium 4.2 (3.3-5.1) mmol/L Chloride 99 (96-108) mmol/L Carbon Dioxide 22 (22-29) mmol/L Anion Gap 14 (12-20) BUN 19 H (9-16) mg/dL Creatinine 1.20 (0.5-1.4) mg/dL Estim Creat Clear Calc 45.0 Estimated GFR 44 Random Glucose 262 H (60-115) mg/dL Lactic Acid (0.5-2.0) mmol/L Calcium 8.7 D (8.4-10.2) mg/dL Urine Color Dark Yellow Urine Appearance Clear Urine pH 7.5 (5.0-9.0) Ur Specific [place] 1.015 (1.005-1.025) Urine Protein Trace (Neg-Trace) mg/dL Urine Glucose (UA) Negative (Negative) mg/dL Urine Ketones Negative (Negative) mg/dL Urine Blood Small (1+) H (Negative) Urine Nitrite Negative (Negative) Ur Leukocyte Esterase Small (1+) H (Negative) Urine RBC >20 H (0-2) /HPF Urine WBC 6-10 H (0-5) /HPF Ur Squamous Epith Cells 0-2 (0-2) /HPF Urine Bacteria 3+ (None Seen) Hyaline Casts 0-2 (0-2) /LPF 09/05/ Range/Units 23:21 WBC (4.8-10.8) X10*3/uL RBC (4.20-5.50) X10*6/uL Hgb (12.0-16.0) g/dl Hct (37.0-47.0) % MCV (80.0-98.0) fL MCH (27.0-33.0) pg MCHC (31.0-35.0) g/dl RDW (11.0-16.0) % Plt Count (160-400) X10*3/uL MPV (9.4-12.3) fL Immature Gran % (Auto) (0.0-0.4) % Neut % (Auto) (45-73) % Lymph % (Auto) (20-40) % [place] % (Auto) (2-11) % Eos % (Auto) (0-4) % Baso % (Auto) (0-2) % Lymph # (Auto) (1.2-4.9) X10*3/uL [place] # (Auto) (0.1-1.2) X10*3/uL Eos # (Auto) (0.0-0.4) X10*3/uL Baso # (Auto) (0.0-0.2) X10*3/uL Abs Immat Gran (auto) (0.00-0.03) X10*3/uL Absolute Neuts (auto) (2.0-8.3) x10*3/uL Absolute Nucleated RBC (0.0-0.012) X10*3/uL Nucleated RBC % (auto) (0.0-0.2) /100WBC Smear Tech's Comments Sodium (135-145) mmol/L Potassium (3.3-5.1) mmol/L Chloride (96-108) mmol/L Carbon Dioxide (22-29) mmol/L Anion Gap (12-20) BUN (9-16) mg/dL Creatinine (0.5-1.4) mg/dL Estim Creat Clear Calc Estimated GFR Random Glucose (60-115) mg/dL Lactic Acid 1.7 (0.5-2.0) mmol/L Calcium (8.4-10.2) mg/dL Urine Color Urine Appearance Urine pH (5.0-9.0) Ur Specific [place] (1.005-1.025) Urine Protein (Neg-Trace) mg/dL Urine Glucose (UA) (Negative) mg/dL Urine Ketones (Negative) mg/dL Urine Blood (Negative) Urine Nitrite (Negative) Ur Leukocyte Esterase (Negative) Urine RBC (0-2) /HPF Urine WBC (0-5) /HPF Ur Squamous Epith Cells (0-2) /HPF Urine Bacteria (None Seen) Hyaline Casts (0-2) /LPF Critical Care Time Critical Care Time Critical Care Time: Yes Total Critical Care Time: 45 Attestation: I have personally provided critical care time. Time includes review of lab data, radiology results, discussion with consultants, and monitoring for potential decompensation. Intervention performed as documented. Discharge Plan Discharge Clinical Impression: Acute UTI, Depression Patient Disposition: Admitted As Inpatient Prescriptions: No Action potassium citrate 10 mEq (1,080 mg) tablet extended release 20 meq PO BID 30 Days Qty: 120 1RF (DME) syringe with needle [BD Luer-Humphrey Syringe] 3 mL 22 x 1 1/2 syringe See Rx Instructions .ROUTE .MEDSUPPLY Qty: 20 0RF Rx Instructions: As directed lidocaine (PF) 10 mg/mL (1 %) syringe See Rx Instructions .ROUTE DAILY 7 Days Qty: 14 0RF Rx Instructions: 2 ml daily; famotidine 40 mg tablet 40 mg PO BEDTIME Qty: 90 1RF sulfamethoxazole-trimethoprim [Bactrim DS] 800-160 mg tablet 1 tab PO BID 10 Days Qty: 20 0RF fosfomycin tromethamine 3 gram packet 1 packet PO .COMPLEX 84 Days Qty: 12 0RF Rx Instructions: 1 packet orally per week for 12 weeks; nitrofurantoin monohyd/m-cryst [Macrobid] 100 mg capsule 100 mg PO BID 10 Days Qty: 20 0RF Rx Instructions: must administer with a meal/food ondansetron HCl [Zofran] 4 mg tablet 4 mg PO Q8H PRN (Reason: Nausea) 4RF Imbruvica 420 mg Tablet 420 mg PO DAILY ferrous sulfate [iron] 325 mg (65 mg iron) Tablet 325 mg PO DAILY Qty: 120 6RF ascorbic acid (vitamin C) [Vitamin C] 500 mg Tablet 500 mg PO BID Qty: 120 4RF Magic Mouthwash Diphen/Lido/Antacid 1:1:1 240 mL suspension 10 ml PO BID-TID PRN (Reason: Dry Mouth) Rx Instructions: Lidocaine Viscous 2 % 80mL; diphenhydramine 12.5 mg/5 mL 80mL; aluminum-mag hydrox-simeth [id number]/5mL 80mL furosemide 20 mg tablet 40 mg PO QAM spironolactone 25 mg tablet 25 mg PO DAILY duloxetine 60 mg capsule,delayed release(DR/EC) 60 mg PO DAILY cyclobenzaprine 5 mg tablet 5 mg PO BEDTIME citalopram 20 mg tablet 20 mg PO DAILY metformin 1,000 mg tablet 1,000 mg PO BID carvedilol 25 mg tablet 25 mg PO BID amlodipine 10 mg tablet 10 mg PO DAILY aspirin [Enteric Coated Aspirin] 81 mg tablet,delayed release (DR/EC) 81 mg PO DAILY Qty: 90 4RF atorvastatin 80 mg tablet 80 mg PO QPM Qty: 90 4RF polyethylene glycol 3350 [Miralax] 17 gram/dose powder 17 g PO DAILY Qty: 238 3RF methenamine hippurate 1 gram tablet 1 g PO DAILY 90 Days Qty: 90 1RF pantoprazole 40 mg tablet,delayed release (DR/EC) 40 mg PO DAILY Qty: 90 4RF sennosides [Natural Senna Laxative] 8.6 mg tablet 17.2 mg PO BEDTIME Qty: 180 3RF Januvia 100 mg tablet 100 mg PO QAM pregabalin 150 mg capsule 150 mg PO BID fluocinonide 0.05 % cream 1 appl topical BID PRN (Reason: Rash) sulindac 150 mg tablet 150 mg PO BID simethicone [Gas Relief (simethicone)] 125 mg capsule 125 mg PO TID-QID PRN (Reason: abdominal distention) Qty: 240 2RF hydralazine 25 mg tablet 25 mg PO TID (DME) Accu-Chek Guide test strips Strip See Rx Instructions .ROUTE DAILY Qty: 10 Rx Instructions: As directed
[2022-09-05 23:28] LABS: Imm Gran Abs Auto 0.17 X10*3/uL (0.00-0.03); PLT CLUMP 1; Red Cell Distribution Width 13.2 % (11.0-16.0); SCAN SMEAR FLAG 1
[2022-09-05 23:30] LABS: Basophils Percent Auto 0.2 % (0-2); Eosinophils Percent Auto 0.1 % (0-4); Hematocrit 35.5 % (37.0-47.0); Hemoglobin 11.7 g/dl (12.0-16.0); Lymphocytes Absolute Auto 1.5 X10*3/uL (1.2-4.9); Lymphocytes Percent Auto 8.8 % (20-40); Mean Corpuscular Hemoglobin 29.8 pg (27.0-33.0); Mean Corpuscular Volume 90.3 fL (80.0-98.0); Mean Platelet Volume 12.3 fL (9.4-12.3); Monocytes Percent Auto 11.9 % (2-11); Neutrophils Absolute Auto 12.8 x10*3/uL (2.0-8.3); Red Blood Count 3.93 X10*6/uL (4.20-5.50)
[2022-09-05 23:32] LABS: MANUAL DIFF FLAG SCAN
[2022-09-05 23:33] LABS: Platelet Count 126 X10*3/uL (160-400); White Blood Count 16.4 X10*3/uL (4.8-10.8)
[2022-09-05 23:43] LABS: Lactic Acid 1.7 mmol/L (0.5-2.0)
[2022-09-05 23:48] LABS: Anion Gap 14 (12-20); Blood Urea Nitrogen 19 mg/dL (9-16); Calcium 8.7 mg/dL (8.4-10.2); Carbon Dioxide 22 mmol/L (22-29); Chloride 99 mmol/L (96-108); Estimated Glomerular Filt Rate 44; Glucose Random 262 mg/dL (60-115); Potassium 4.2 mmol/L (3.3-5.1); SLIDE REVIEW VERIFIED; Sodium 131 mmol/L (135-145)
--- NOTE | 2022-09-06 01:37 | P.HPHOSP_ITS ---
History of Present Illness Date of Service: 09/06/22 Chief Complaint: UTI 77-year-old female with past medical history of recurrent UTI, depression, history of breast cancer, hyperlipidemia, diabetes, CLL, history of CVA, presents to the hospital with complaints of increased lethargy and fatigue. patient's son 2 days ago, and family are concerned about her. Patient was started on p.o. antibiotics as well by Dr. Hayes urologist after urine showed positive results. given patient's increased lethargy and her history of allergies to many antibiotics patient will be admitted for IV antibiotics for treatment of UTI patient is slightly confused, denies any chest pain, no abdominal pain nausea or vomiting, no diarrhea constipation, reports urinary frequency, no lower extremity edema. No fever or chills. On arrival to the ED patient hemodynamically stable with slightly elevated blood pressure Labs are significant for WBC count of 16.4, hemoglobin of 11.7, hematocrit 35.5, BUN of 19, creatinine of 1.2 which is her baseline, UA positive for leukocyte Estrace and WBC Review of Systems Review of Systems: Yes all other systems are reviewed and are negative [facility] Medical History Anemia Arthritis CLL (chronic lymphocytic leukemia) Diabetes mellitus Fibromyalgia History of bilateral breast cancer History of blood transfusion History of CVA (cerebrovascular accident) History of numbness Hypercholesterolemia Hypertension PONV (postoperative nausea and vomiting) Seasonal allergies Self-catheterizes urinary bladder Sleep apnea Wears dentures Family History Mother Breast cancer Father Heart disease Father Lung cancer Mother Colon cancer Brother Pancreatic cancer Surgical History History of back surgery History of biopsy of bladder History of bladder repair surgery History of esophagogastroduodenoscopy (EGD) History of suprapubic catheter History of total hysterectomy Hx of colonoscopy S/P Botox injection S/P breast biopsy, right S/P left breast biopsy Social History Household Members: Spouse Housing: House Are you a primary reservoir caretaker to a significant other at home: No Do you presently have visiting nurse or other home services: No Alcohol intake: never Patient Tobacco Use Status: Never used Tobacco Smoked in Last 30 Days: No Use of substances other than those prescribed or required for medical reasons: No Advance Directives: Yes Advance Directives on File: Yes Advance Directives Date on File: 04/11/22 service: No Current occupational status: retired Meds Allergies Allergy/AdvReac Type Severity Reaction Status Date / Time amoxicillin [AMOXICILLIN] Allergy Severe stroke, Verified 09/05/22 21:44 blood clots ciprofloxacin [From CIPRO] Allergy Severe ANAPHYLAXIS Verified 09/05/22 21:44 Iodinated Contrast Media Allergy Severe HIVES Verified 09/05/22 21:44 [IV DYE, IODINE CONTAINING CONTRAST ] levofloxacin Allergy Severe Anaphylaxis Verified 09/05/22 21:44 liraglutide Allergy Severe Headache Verified 09/05/22 21:44 Penicillins Allergy Severe stroke, Verified 09/05/22 21:44 blood clots phenazopyridine [Pyridium] Allergy Severe Anaphylaxis Verified 09/05/22 21:44 FREYA Inhibitors Allergy Intermediate Cough Verified 09/05/22 21:44 ARB-Angiotensin Receptor Allergy Intermediate Cough Verified 09/05/22 21:44 Antagonist atorvastatin Allergy Intermediate Shortness Verified 09/05/22 21:44 of Breath cefpodoxime Allergy Intermediate Dizziness, Verified 09/05/22 21:44 nausea celecoxib [From CELEBREX] Allergy Intermediate HIVES Verified 09/05/22 21:44 doxazosin Allergy Intermediate Shortness Verified 09/05/22 21:44 of Breath fluticasone [Advair Diskus] Allergy Intermediate Anxiety Verified 09/05/22 21:44 gabapentin [From Neurontin] Allergy Intermediate Headache Verified 09/05/22 21:44 hydralazine Allergy Intermediate Shortness Verified 09/05/22 21:44 of Breath latex Allergy Intermediate Hives Verified 09/05/22 21:44 linezolid Allergy Intermediate Nausea and Verified 09/05/22 21:44 Vomiting meloxicam Allergy Intermediate Unknown Verified 09/05/22 21:44 salmeterol [Advair Diskus] Allergy Intermediate Anxiety Verified 09/05/22 21:44 Tetanus Vaccines and Toxoid Allergy Intermediate Swelling Verified 09/05/22 21:44 torsemide Allergy Intermediate Shortness Verified 09/05/22 21:44 of Breath cephalexin [Keflex] Allergy Mild Nausea Verified 09/05/22 21:44 Active Medications: Current Medications Vancomycin HCl (Vancomycin/Ns) 2,000 mg in 520 mls @ 260 mls/hr IV ONCE ONE Stop: 09/06/22 02:17 Last Admin: 09/06/22 01:27 Dose: 260 mls/hr Pharmacy Consult (Consult Rx Vancomycin Dosing) 1 each MISCELLANE DAILY PRN PRN Reason: Consult order Home Medications Medication Instructions Recorded Confirmed Last Taken Type citalopram 20 mg tablet 20 mg PO DAILY 07/21/20 09/06/22 04/16/22 History cyclobenzaprine 5 mg tablet 5 mg PO BEDTIME 07/21/20 09/06/22 Unknown History duloxetine 60 mg capsule,delayed 60 mg PO DAILY 07/21/20 09/06/22 04/16/22 History release spironolactone 25 mg tablet 25 mg PO DAILY 07/21/20 09/06/22 Unknown History amlodipine 10 mg tablet 10 mg PO DAILY 03/23/21 09/06/22 04/16/22 History metformin 1,000 mg tablet 1,000 mg PO BID 04/19/21 09/06/22 Unknown History carvedilol 25 mg tablet 25 mg PO BID 05/31/21 09/06/22 04/16/22 History pregabalin 150 mg capsule 150 mg PO BID 07/27/21 09/06/22 04/16/22 History sulindac 150 mg tablet 150 mg PO BID 07/27/21 09/06/22 04/15/22 History sitagliptin phosphate 100 mg 100 mg PO QAM 08/21/22 09/06/22 Unknown History tablet (Januvia) furosemide 20 mg tablet 40 mg PO QAM 08/27/22 09/06/22 Unknown History blood sugar diagnostic (Accu-Chek #10 ea 09/04/22 Unknown History Guide test strips) hydralazine 25 mg tablet 25 mg PO TID 09/04/22 09/06/22 Unknown History fosfomycin tromethamine 3 gram 1 packet PO QWEEK UTI suppression 09/06/22 09/06/22 Unknown History oral packet Physical Exam Vital Signs and Narrative: Vital Signs: Last Vital Signs Temp 96.8 F 09/05/22 21:44 Pulse 91 09/05/22 22:27 Resp 22 H 09/05/22 22:27 BP 162/61 H 09/05/22 22:27 Pulse Ox 92 09/05/22 22:27 O2 Del Method 09/05/22 22:27 BMI result Body Mass Index 36.6 Const: Other: confused General: cooperative and no acute distress Eyes: General: appearance normal, both eyes and all related structures Resp: Effort & Inspection: normal respiratory effort Auscultation: clear to auscultation bilaterally Cardio: Rate: regular rate Rhythm: regular rhythm GI: Palpation (GI): Soft to palpation Auscultation: normal bowel sounds Skin: General skin exam: no rashes or lesions noted Neuro: Cognition (Neuro): normal cognition Extrem: General: Yes normal to inspection and Yes no pedal edema Results Labs CBC and Chem 7: 09/06/22 06:31 09/06/22 06:31 Labs: Laboratory Results - last 24 hr 09/05/22 09/05/22 09/05/22 22:53 23:21 23:21 MCV 90.3 MCH 29.8 MCHC 33.0 RDW 13.2 Plt Count 126 L MPV 12.3 Immature Gran % (Auto) 1.0 H Neut % (Auto) 78.0 H Lymph % (Auto) 8.8 L [place] % (Auto) 11.9 H Eos % (Auto) 0.1 Baso % (Auto) 0.2 Lymph # (Auto) 1.5 [place] # (Auto) 2.0 H Eos # (Auto) 0.0 Baso # (Auto) 0.0 Abs Immat Gran (auto) 0.17 H Absolute Neuts (auto) 12.8 H Absolute Nucleated RBC 0.000 Nucleated RBC % (auto) 0.0 Smear Tech's Comments VERIFIED Anion Gap 14 Estim Creat Clear Calc 45.0 Estimated GFR 44 Random Glucose 262 H Lactic Acid Calcium 8.7 D Urine Color Dark Yellow Urine Appearance Clear Urine pH 7.5 Ur Specific [place] 1.015 Urine Protein Trace Urine Glucose (UA) Negative Urine Ketones Negative Urine Blood Small (1+) H Urine Nitrite Negative Ur Leukocyte Esterase Small (1+) H Urine RBC >20 H Urine WBC 6-10 H Ur Squamous Epith Cells 0-2 Urine Bacteria 3+ Hyaline Casts 0-2 09/05/22 23:21 MCV MCH MCHC RDW Plt Count MPV Immature Gran % (Auto) Neut % (Auto) Lymph % (Auto) [place] % (Auto) Eos % (Auto) Baso % (Auto) Lymph # (Auto) [place] # (Auto) Eos # (Auto) Baso # (Auto) Abs Immat Gran (auto) Absolute Neuts (auto) Absolute Nucleated RBC Nucleated RBC % (auto) Smear Tech's Comments Anion Gap Estim Creat Clear Calc Estimated GFR Random Glucose Lactic Acid 1.7 Calcium Urine Color Urine Appearance Urine pH Ur Specific [place] Urine Protein Urine Glucose (UA) Urine Ketones Urine Blood Urine Nitrite Ur Leukocyte Esterase Urine RBC Urine WBC Ur Squamous Epith Cells Urine Bacteria Hyaline Casts Assessment and Plan (1) Acute UTI: Status: Acute (2) Allergy to multiple antibiotics: Status: Acute Plan 77-year-old female with multiple past medical history as well as multiple allergies to many antibiotics presents to the hospital with confusion, increased lethargy found to have acute UTI failed outpatient therapy # acute UTI - started on Macrobid on 09/04, has more confusion, lethargy, UA remains positive - has grown E coli as well as Enterococcus faecalis in the past with multiple resistance, - failed Macrobid - will treat with IV vancomycin for Enterococcus faecalis, as well as Aztreonem for E coli - pending cultures # diabetes - low-dose sliding scale insulin - diabetic diet - hold oral anti hypoglycemics # hypertension - stable - continue home antihypertensives DVT prophylaxis: Lovenox given failed outpatient therapy, as well as multiple allergies to many antibiotics patient required minimum 2 night inpatient hospital stay for further management and monitoring Time Spent With Patient Time: Total time managing care of this patient today ____ minutes. Quality Stroke Does the patient have a stroke diagnosis?: No VTE Prior VTE?: No VTE Risk Level:: Medical - low VTE Device Contraindication: N/A - Device Ordered VTE Drug Contraindication: Treatment Not Indicated
[2022-09-06 02:07] VITALS: BP 136/48; PULSE 84; RESP 19; TEMP 36.4; O2SAT 93
--- NOTE | 2022-09-06 02:08 | MHC.EDTECH ---
pt is resting comfortable labs were drawn vitals were taken lights back out for pt
--- NOTE | 2022-09-06 03:01 | PC.NURSE ---
@ 1:25 this rn placed iv in R AC. pt then medicated according to nov. pt changing into hospital gown. pt resting comfortably on stretcher at this time
--- NOTE | 2022-09-06 04:16 | PC.NURSE ---
0130 aztreonam delayed due to vancomycin running, iv positional. when med ready to be hung this rn attempted to pull aztreonam from [employer]. pyxis also shows none available when global search completed. this rn contacted nursing platform material handling supervisor regarding this. nursing platform material handling supervisor states that because the medication is not available throughout the hospital she cannot grab med. hospitalist contacted regarding this. no new orders at this time
[2022-09-06 05:32] LABS: COVID-19 Test Negative (Negative)
--- NOTE | 2022-09-06 05:52 | PC.NURSE ---
hospitalist dr peacock contacted this rn, stated they aztreonam can be given in the morning. this rn contacted pharmacy at this time. pharmacy states they will - aztreonam for 0700 so in house pharmacy can provide the med. this rn confirmed this with dr peacock. agreeable to this plan
--- NOTE | 2022-09-06 06:02 | PC.NURSE ---
This rn completed N referral form at this time
[2022-09-06 06:55] LABS: MANUAL DIFF FLAG NO
[2022-09-06 07:00] LABS: Basophils Percent Auto 0.2 % (0-2); Hematocrit 32.7 % (37.0-47.0); Hemoglobin 10.9 g/dl (12.0-16.0); Imm Gran Abs Auto 0.15 X10*3/uL (0.00-0.03); Imm Gran Pct Auto 1.2 % (0.0-0.4); Lymphocytes Absolute Auto 1.5 X10*3/uL (1.2-4.9); Lymphocytes Percent Auto 11.7 % (20-40); Mean Corpuscular HGB Conc 33.3 g/dl (31.0-35.0); Mean Corpuscular Hemoglobin 29.9 pg (27.0-33.0); Mean Corpuscular Volume 89.8 fL (80.0-98.0); Mean Platelet Volume 12.5 fL (9.4-12.3); Monocytes Absolute Auto 1.4 X10*3/uL (0.1-1.2); Neutrophils Absolute Auto 9.7 x10*3/uL (2.0-8.3); Neutrophils Percent Auto 75.9 % (45-73); Platelet Count 113 X10*3/uL (160-400); Red Blood Count 3.64 X10*6/uL (4.20-5.50); Red Cell Distribution Width 13.2 % (11.0-16.0); White Blood Count 12.7 X10*3/uL (4.8-10.8)
[2022-09-06 07:30] LABS: Anion Gap 11 (12-20); Blood Urea Nitrogen 16 mg/dL (9-16); Calcium 8.8 mg/dL (8.4-10.2); Carbon Dioxide 25 mmol/L (22-29); Chloride 101 mmol/L (96-108); Estimated Glomerular Filt Rate 49; Glucose Random 237 mg/dL (60-115); Sodium 133 mmol/L (135-145)
[2022-09-06 07:36] LABS: Glucose, Whole Blood 239 mg/dL (60-115)
--- NOTE | 2022-09-06 07:42 | PHA.MEDREC ---
Addendum entered by Bushra Ruiz RPh 09/06/22 08:06: Patient has documented allergy to atorvastatin and hydralazine. Patient reports she is taking these medications at home Original Note: Pharmacy Consult ? Medication Reconciliation Pharmacy has reviewed the medication reconciliation completed by Becki. Bushra Ruiz, PharmD
[2022-09-06 07:47] VITALS: BP 133/48; PULSE 83; RESP 17; TEMP 36.7; O2SAT 97
--- NOTE | 2022-09-06 07:51 | PHA.PROG ---
Admission Date/Time: September 06, 2022 01:35 Indication: Other Weight in k.8 kg Adjusted body weight in Kg: [place] body weight in Kg: Obesity Dosing Indication % IBW: Serum Creatinine - Last 168 Hours 09/05/22 09/06/22 23:21 06:31 Creatinine 1.20 1.08 Estimated CrCl and GFR - Last 168 Hours 09/05/22 09/06/22 23:21 06:31 Estim Creat Clear Calc 45.0 50.0 Estimated GFR 44 49 Vancomycin Loading Dose: 2000mg X 1 Current Vancomycin Dosing Regimen: 500mg Q12H Vancomycin Monitoring using AUC goal of 400 - 600 range with trough as surrogate marker: 499mg/L Date and Time for next Vancomycin Level to be drawn: 09/07/22 @1100 Pharmacist Comments on Vancomycin Plan: Vancomycin dosing will take advantage of [employer] as a clinical decision support tool that uses Bayesian modeling to calculate individual patient's pharmacokinetic parameters and forecast the patient's drug concentration time course with the target goal AUC 24 range of 400 - 600 mg/L/hr.
[2022-09-06] MEDS: Insulin Lispro 100 UNIT/ML 3 ML VIAL SUBCUT ×4 (07:56→21:11)
[2022-09-06] MEDS: 0.9 % Sodium Chloride Flush 3 ML SYRINGE IVFLUSH (07:57)
--- NOTE | 2022-09-06 08:06 | PC.NURSE ---
patient a/ox4 . pearrla . patient tearful . heart rate regular at 83 beats per minute . breathing even and unlabored , lungs clear throughout . skin pink warm and dry . abdomen soft . not tender . positive bowel sounds throughout . patient ate 4 bites of oatmeal and 8 ounces of orange juice this Am .BHN consult in from previous shift . Patient is aware of plan of care .
[2022-09-06] MEDS: Aztreonam 1 GM in 0.9 % Sodium Chloride 50 ML IV ×2 (08:36→21:11)
[2022-09-06] MEDS: Ferrous Sulfate 324 MG TABLET.DR PO (08:46)
[2022-09-06] MEDS: Spironolactone 25 MG TABLET PO (08:46)
[2022-09-06] MEDS: DULoxetine HCl 60 MG CAPSULE.DR PO (08:47)
[2022-09-06] MEDS: Escitalopram Oxalate 10 MG TABLET PO (08:47)
[2022-09-06] MEDS: Aspirin Enteric Coated 81 MG TABLET.DR PO (08:47)
[2022-09-06] MEDS: Atorvastatin Calcium 80 MG TABLET PO ×2 (08:47→17:24)
[2022-09-06] MEDS: hydrALAZINE HCl 25 MG TABLET PO ×3 (08:47→21:12)
[2022-09-06] MEDS: Pregabalin 150 MG CAPSULE PO ×2 (08:47→21:12)
[2022-09-06] MEDS: Ascorbic Acid 500 MG TABLET PO ×2 (08:49→21:12)
[2022-09-06] MEDS: amLODIPine Besylate 10 MG TABLET PO (08:49)
[2022-09-06] MEDS: carvediloL 25 MG TABLET PO ×2 (08:49→21:12)
[2022-09-06 08:52] VITALS: BP 140/59; PULSE 81; RESP 16; TEMP 36.6; O2SAT 96
--- NOTE | 2022-09-06 09:35 | PC.NURSE ---
Jeanette from Crisis at bedside . patient aware of plan of care .
--- NOTE | 2022-09-06 10:42 | MHC.CM.PN ---
PT REPORTS SHE LIVES WITH HER AND IS INDEPENDENT WITH CARE SHE REPORTS SHE USES A [facility] ONLY AND NO OTHER DME PT HAS NO HOME SERVICES PT HAS A HCP ON FILE PCP: ELLEN VELÁZQUEZ SHE REPORTS SHE IS COVID [facility] IMM DELIVERED, COPY SENT TO [facility] CURRENT DC PLAN IS HOME WITH NO SERVICES TO TRANSPORT
[2022-09-06 11:23] VITALS: BP 128/45; PULSE 80; RESP 19; O2SAT 96
--- NOTE | 2022-09-06 11:39 | P.EN_ITS ---
Event Note Date of Service: 09/06/22 Event Note: Chief Complaint: UTI 77-year-old female with past medical history of recurrent UTI, depression, history of breast cancer, hyperlipidemia, diabetes, CLL, history of CVA, presents to the hospital with complaints of? increased lethargy and fatigue.? patient's son 2 days ago, and family are concerned about her.? Patient was started on p.o. antibiotics as well by Dr. Hayes urologist? after urine showed positive results. ? given patient's increased lethargy and her history of allergies to many antibiotics patient will be admitted for IV antibiotics for treatment of UTI on admission?patient slightly confused, denies any chest pain, no abdominal pain nausea or vomiting, no diarrhea constipation, reports urinary? frequency, no lower extremity edema. No fever or chills.? ?On arrival to the ED patient hemodynamically stable with slightly elevated blo od pressure Labs are significant for? WBC count of 16.4, hemoglobin of 11.7, hematocrit 35.5, BUN of 19, creatinine of 1.2 which is her baseline, UA positive for leukocyte Estrace and WBC Home at present patient awake alert complaining of lack of energy, generalized tiredness, denies urinary symptoms, denies fevers On examination awake alert answering questions appropriately Abdomen soft nontender Back mild rt cva tenderness Extremities no edema 77-year-old female with multiple past medical history as well as multiple allergies to many antibiotics presents to the hospital with confusion, increased lethargy found to have acute UTI failed outpatient therapy #?acute toxic metabolic encephalopathy likely due to acute UTI -? was on Macrobid since 09/04, confusion resolved , WBC trending down -? has grown E coli as well as Enterococcus faecalis in the past with multiple resistance, -? failed Macrobid -? continue IV vancomycin for Enterococcus faecalis, as well as Aztreonem for E coli - follow final urine and blood culture report #? diabetes -? low-dose sliding scale insulin -? diabetic diet -? hold oral anti hypoglycemics #? hypertension -? stable -? continue amlodipine 10 mg, hydralazine 25 mg t.i.d., Aldactone 25 mg daily, Coreg 25 mg b.i.d., follow blood pressure closely # mood disorder continue Lexapro # mild hyponatremia sodium 131 improved 133 likely due to dehydration ?DVT prophylaxis:? Lovenox Time Spent With Patient Time: Total time managing care of this patient today ____ minutes.
[2022-09-06] MEDS: Enoxaparin Sodium 40 MG/0.4 ML SYRINGE SUBCUT (12:02)
[2022-09-06] MEDS: vancomycin HCL 500 MG in 0.9 % Sodium Chloride 100 ML 110 MG IV (12:03)
[2022-09-06] MEDS: Acetaminophen 325 MG TABLET 650 MG PO (12:06)
[2022-09-06 16:39] LABS: Glucose, Whole Blood 250 mg/dL (60-115)
[2022-09-06 17:37] LABS: Glucose, Whole Blood 197 mg/dL (60-115)
[2022-09-06 18:07] VITALS: BP 185/77; PULSE 85; RESP 16; O2SAT 92
--- NOTE | 2022-09-06 19:55 | PC.NURSE ---
Pt resting comfortably, no need expressed.
--- NOTE | 2022-09-06 20:05 | PC.NURSE ---
Called pharmacy for ABX
[2022-09-06 20:52] LABS: Glucose, Whole Blood 249 mg/dL (60-115)
[2022-09-06] MEDS: Sennosides 8.6 MG TABLET 17.2 MG PO (21:12)
[2022-09-06] MEDS: Famotidine 20 MG TABLET 40 MG PO (21:12)
--- NOTE | 2022-09-06 21:49 | PC.NURSE ---
Pt resting no needs expressed at this time.
--- NOTE | 2022-09-06 22:35 | MHC.EDTECH ---
pt came from ER, she is resting , pt is a diabetic, no issues
--- NOTE | 2022-09-06 23:31 | PC.NURSE ---
Pt sleeping respirations regular.
[2022-09-07] VITALS (7 sets, daily range): BP systolic 138–200; BP diastolic 65–70; PULSE 72–91; RESP 14–19; TEMP 36.7–39.4; O2SAT 90–95
[2022-09-07] MEDS: vancomycin HCL 500 MG in 0.9 % Sodium Chloride 100 ML 110 MG IV (01:50)
--- NOTE | 2022-09-07 02:22 | PC.NURSE ---
Pt sleeping respirations regular.
--- NOTE | 2022-09-07 04:14 | PC.NURSE ---
Pt sleeping at this time, respirations regular.
--- NOTE | 2022-09-07 05:49 | MHC.EDTECH ---
pt is sleeping comfortable, i emptied her super pubic cath 800 was in the scherer bag
--- NOTE | 2022-09-07 05:54 | PC.NURSE ---
Pt resting in bed, no needs expressed at this time.
[2022-09-07] MEDS: Omeprazole 20 MG CAPSULE.DR PO (06:07)
[2022-09-07 07:11] LABS: Glucose, Whole Blood 206 mg/dL (60-115)
[2022-09-07 07:27] LABS: Hematocrit 34.6 % (37.0-47.0); Hemoglobin 11.4 g/dl (12.0-16.0); Mean Corpuscular HGB Conc 32.9 g/dl (31.0-35.0); Mean Corpuscular Hemoglobin 29.8 pg (27.0-33.0); Mean Corpuscular Volume 90.6 fL (80.0-98.0); Mean Platelet Volume 12.7 fL (9.4-12.3); Platelet Count 103 X10*3/uL (160-400); Red Blood Count 3.82 X10*6/uL (4.20-5.50); Red Cell Distribution Width 13.3 % (11.0-16.0); White Blood Count 7.8 X10*3/uL (4.8-10.8)
[2022-09-07 07:49] LABS: Anion Gap 12 (12-20); Blood Urea Nitrogen 11 mg/dL (9-16); Calcium 8.7 mg/dL (8.4-10.2); Carbon Dioxide 26 mmol/L (22-29); Chloride 99 mmol/L (96-108); Creatinine Clr Calc Pharmacy 46.2; Estimated Glomerular Filt Rate 45; Glucose Random 211 mg/dL (60-115); Sodium 133 mmol/L (135-145)
[2022-09-07] MEDS: Insulin Lispro 100 UNIT/ML 3 ML VIAL SUBCUT ×5 (08:04→21:38)
[2022-09-07] MEDS: amLODIPine Besylate 10 MG TABLET PO (08:05)
[2022-09-07] MEDS: Aspirin Enteric Coated 81 MG TABLET.DR PO (08:05)
[2022-09-07] MEDS: carvediloL 25 MG TABLET PO ×2 (08:05→21:39)
[2022-09-07] MEDS: Pregabalin 150 MG CAPSULE PO ×2 (08:05→21:39)
[2022-09-07] MEDS: Ferrous Sulfate 324 MG TABLET.DR PO (08:05)
[2022-09-07] MEDS: Spironolactone 25 MG TABLET PO (08:05)
[2022-09-07] MEDS: hydrALAZINE HCl 25 MG TABLET PO (08:05)
[2022-09-07] MEDS: Ascorbic Acid 500 MG TABLET PO ×2 (08:05→21:39)
[2022-09-07] MEDS: DULoxetine HCl 60 MG CAPSULE.DR PO (08:05)
[2022-09-07] MEDS: Escitalopram Oxalate 10 MG TABLET PO (08:05)
[2022-09-07] MEDS: 0.9 % Sodium Chloride Flush 3 ML SYRINGE IVFLUSH ×2 (08:06→15:33)
[2022-09-07] MEDS: Aztreonam 1 GM in 0.9 % Sodium Chloride 50 ML IV (09:51)
[2022-09-07] MEDS: Acetaminophen 325 MG TABLET 650 MG PO ×2 (09:51→17:20)
[2022-09-07] MEDS: ondansetron HCL 4 MG/2 ML VIAL IVPUSH ×2 (10:29→18:33)
--- NOTE | 2022-09-07 11:04 | HE.PHANOTE ---
Patient own med [employer] received, entered order, verified product and sent it down to JESUSITA VAZQUEZ.
--- NOTE | 2022-09-07 11:35 | PC.NURSE ---
patient spiked a temp of 101 given prn tylenol. Provider aware. Home cancer medication sent to the pharmacy for verification. patient is alert, oriented x3. able to make needs known. call [employer] within reach
[2022-09-07 11:59] LABS: Vancomycin Trough 6.5 mcg/mL (10.0-20.0)
--- NOTE | 2022-09-07 12:07 | HE.PHANOTE ---
RE: vanco trough on 09/07/22 came back at 6.5; increased dose to 1000mg Q12H with predicted AUC 493mg/L. Next level to be drawn 09/08/22 @1100
[2022-09-07] MEDS: Enoxaparin Sodium 40 MG/0.4 ML SYRINGE SUBCUT (12:20)
[2022-09-07 12:49] LABS: Glucose, Whole Blood 232 mg/dL (60-115)
--- NOTE | 2022-09-07 13:05 | HO.PM.IMPN ---
Subjective Subjective Date of Service: 09/07/22 Interval History: the patient was seen and evaluated this morning Laying in bed, feels tired with no energy Denies any fever, chills or shortness of breath No reported other overnight events. Systemic review: No fever, chills but weakness No chest pain, palpitation No shortness of breath or coughing No abdominal pain, reporting some nausea No urinary symptoms No reported rash Physical Exam Vital Signs: Vital Signs: Last Vital Signs Temp 99.6 F 09/07/22 11:41 Pulse 72 09/07/22 11:41 Resp 14 09/07/22 11:41 BP 159/70 H 09/07/22 11:41 Pulse Ox 93 09/07/22 11:41 O2 Del Method 09/07/22 11:41 BMI result Body Mass Index 36.6 Const: Other: Constitutional : Awake, interactive, not in distress Neck : Normal inspection, Supple Cardiovascular : RRR, no JVP, no lower extremity edema Respiratory : good bilateral air entry, no crackles, wheezes or rhonchi Gastrointestinal: soft, lax, Normal bowel sounds, Non tender Skin : Warm, Dry Neurological : Alert & oriented x3, No focal deficit , CN 2-12 within normal Objective Data Active Medications Acetaminophen (Acetaminophen 325 Mg Tablet) 650 mg PO Q6H PRN PRN Reason: Pain, Mild (Pain Scale 1-3) Last Admin: 09/07/22 09:51 Dose: 650 mg Documented By: ESME Amlodipine Besylate (Amlodipine Besylate 10 Mg Tablet) 10 mg PO DAILY [facility]; Protocol Last Admin: 09/07/22 08:05 Dose: 10 mg Documented By: ESME Ascorbic Acid (Ascorbic Acid 500 Mg Tablet) 500 mg PO BID [facility] Last Admin: 09/07/22 08:05 Dose: 500 mg Documented By: ESME Aspirin (Aspirin Enteric Coated 81 Mg Tablet.Dr) 81 mg PO DAILY [facility] Last Admin: 09/07/22 08:05 Dose: 81 mg Documented By: ESME Atorvastatin Calcium (Atorvastatin Calcium 80 Mg Tablet) 80 mg PO DAILY@1800 [facility] Last Admin: 09/06/22 17:24 Dose: 80 mg Documented By: [place] Carvedilol (Carvedilol 25 Mg Tablet) 25 mg PO BID [facility]; Protocol Last Admin: 09/07/22 08:05 Dose: 25 mg Documented By: ESME Cyclobenzaprine HCl (Cyclobenzaprine Hcl 5 Mg Tablet) 5 mg PO BEDTIME PRN PRN Reason: Insomnia/Muscle spasms Dextrose (Dextrose 50 % 25 Gm/50 Ml Syringe) 25 gm IVPUSH Q15M PRN; Protocol PRN Reason: per Hypoglycemia Standing Ord. Docusate Sodium (Docusate Sodium 100 Mg Capsule) 100 mg PO DAILY PRN PRN Reason: Constipation Duloxetine HCl (Duloxetine Hcl 60 Mg Capsule.) 60 mg PO DAILY [facility] Last Admin: 09/07/22 08:05 Dose: 60 mg Documented By: ESME Enoxaparin Sodium (Enoxaparin Sodium 40 Mg/0.4 Ml Syringe) 40 mg SUBCUT Q24H [facility] Last Admin: 09/07/22 12:20 Dose: 40 mg Documented By: ESME Escitalopram Oxalate (Escitalopram Oxalate 10 Mg Tablet) 10 mg PO DAILY [facility] Last Admin: 09/07/22 08:05 Dose: 10 mg Documented By: ESME Famotidine (Famotidine 20 Mg Tablet) 40 mg PO BEDTIME [facility] Last Admin: 09/06/22 21:12 Dose: 40 mg Documented By: KELSEY Ferrous Sulfate (Ferrous Sulfate 324 Mg Tablet.) 324 mg PO DAILY [facility] Last Admin: 09/07/22 08:05 Dose: 324 mg Documented By: ESME Glucose (Glucose Gel 15 Gm Gel..Gram.) 15 gm PO Q15M PRN; Protocol PRN Reason: per Hypoglycemia Standing Ord. Hydralazine HCl (Hydralazine Hcl 50 Mg Tablet) 50 mg PO TID [facility]; Protocol Aztreonam 1 gm/ Sodium (Chloride) 50 mls @ 100 mls/hr IV Q12H [facility] Last Infusion: 09/07/22 10:25 Dose: 0 mls/hr Documented By: ESME Vancomycin HCl 1,000 mg/ (Sodium Chloride) 270 mls @ 270 mls/hr IV Q12H [facility] Insulin Human Lispro (Insulin Lispro 100 Unit/Ml 3 Ml Vial) 0.1 - 10 unit SUBCUT QIDACHS [facility]; Protocol Last Admin: 09/07/22 08:04 Dose: 4 unit Documented By: ESME Non-Formulary Medication (Potassium Citrate) 20 meq PO BID [facility] Non-Formulary Medication (Fosfomycin Tromethamine) 1 packet PO QWEEK [facility] Non-Formulary Medication (Sulindac) 150 mg PO BID [facility] Pt Own (Ibrutinib [ Imbruvica] 420 Mg Tablet) 420 mg PO DAILY [facility] Last Admin: 09/07/22 12:20 Dose: 420 mg Documented By: ESME Omeprazole (Omeprazole 20 Mg Capsule.Dr) 20 mg PO DAILY@0630 [facility] Last Admin: 09/07/22 06:07 Dose: 20 mg Documented By: KELSEY Ondansetron HCl (Ondansetron Hcl 4 Mg/2 Ml Vial) 4 mg IVPUSH Q8H PRN PRN Reason: Nausea and Vomiting Last Admin: 09/07/22 10:29 Dose: 4 mg Documented By: ESME Pharmacy Consult (Consult Rx Vancomycin Dosing) 1 each MISCELLANE DAILY PRN PRN Reason: Consult order Pregabalin (Pregabalin 150 Mg Capsule) 150 mg PO BID [facility] Last Admin: 09/07/22 08:05 Dose: 150 mg Documented By: ESME Senna (Sennosides 8.6 Mg Tablet) 17.2 mg PO BEDTIME [facility] Last Admin: 09/06/22 21:12 Dose: 17.2 mg Documented By: KELSEY Sodium Chloride (0.9 % Sodium Chloride Flush 3 Ml Syringe) 3 ml IVFLUSH QSHIFT [facility] Last Admin: 09/07/22 08:06 Dose: 3 ml Documented By: ESME Spironolactone (Spironolactone 25 Mg Tablet) 25 mg PO DAILY [facility]; Protocol Last Admin: 09/07/22 08:05 Dose: 25 mg Documented By: ESME Labs CBC & Chem 7: 09/07/22 06:58 09/07/22 06:58 Labs: Laboratory Results - last 24 hr 09/06/22 09/06/22 09/06/22 13:19 16:59 20:44 MCV MCH MCHC RDW Plt Count MPV Absolute Nucleated RBC Nucleated RBC % (auto) Anion Gap Estim Creat Clear Calc Estimated GFR POC Glucose 250 H 197 H 249 H Random Glucose Calcium Vancomycin Trough 12/30/22 12/30/22 12/30/22 06:58 06:58 07:07 MCV 90.6 MCH 29.8 MCHC 32.9 RDW 13.3 Plt Count 103 L MPV 12.7 H Absolute Nucleated RBC 0.000 Nucleated RBC % (auto) 0.0 Anion Gap 12 Estim Creat Clear Calc 46.2 Estimated GFR 45 POC Glucose 206 H Random Glucose 211 H Calcium 8.7 Vancomycin Trough 09/07/22 09/07/22 10:59 12:39 MCV MCH MCHC RDW Plt Count MPV Absolute Nucleated RBC Nucleated RBC % (auto) Anion Gap Estim Creat Clear Calc Estimated GFR POC Glucose 232 H Random Glucose Calcium Vancomycin Trough 6.5 L Microbiology Microbiology Results: Microbiology 09/05/22 23:08 Urine Culture - Preliminary Urine clean catch - Urine huitron top Enterococcus/Streptococcus sp 09/05/22 23:44 Blood Culture - Preliminary Blood - Venous No growth after 24 hours. 09/05/22 23:44 Blood Culture - Preliminary Blood - Venous No growth after 24 hours. Assessment and Plan (1) Acute UTI: Status: Acute Plan 77-year-old female with multiple past medical history as well as multiple allergies to many antibiotics presents to the hospital with confusion, increased lethargy found to have acute UTI failed outpatient therapy # acute UTI Urine culture growing Enterococcus, Streptococcus Continue IV vancomycin for Enterococcus faecalis, DC Aztreonem Pending final sensitivity # diabetes Continue low-dose sliding scale insulin diabetic diet hold oral anti hypoglycemics # hypertension stable continue home antihypertensives DVT prophylaxis: Lovenox given failed outpatient therapy, as well as multiple allergies to many antibiotics patient required overnight inpatient hospital stay for further management and monitoring Time Spent With Patient Time: Total time managing care of this patient today ____ minutes. Quality Stroke Does the patient have a stroke diagnosis?: No VTE Prior VTE?: No VTE Risk Level:: Medical - low VTE Device Contraindication: N/A - Device Ordered VTE Drug Contraindication: Treatment Not Indicated
--- NOTE | 2022-09-07 13:52 | P.CDIC_ITS ---
CDI Concurrent Query Documentation Clarification: PHYSICIAN'S DOCUMENTATION REQUEST Date of Query: 09/07/22 3075 Patient Name: Kaitlin Ortiz Admit Date: 09/06/22 Dear Doctor, A review of the medical record indicates additional documentation may be needed. Please review below and update the documentation accordingly. Clinical Indicators: Is there a diagnosis that correlates with the findings below: Risk Factors/Clinical Indicators/Treatments BMI: 36.6 Height: 5ft 4in Weight: 96.8kg If possible, please provide an associated diagnosis related to the abnormal BMI, such as: BMI: * Severe or Morbid Obesity * Obesity * Due to excess calories * Drug induced * Due to other cause * With alveolar hypoventilation * Without alveolar hypoventilation Or: * BMI is not significant * Other (please specify) * Unable to determine Use of terms such as suspected, likely, concern for, or probable (associated with a specific diagnosis that is being evaluated, monitored, or treated as if it exists) are acceptable and can be coded in the inpatient setting, when documented at the time of discharge. Thank you, Sandie Sheth MS, RN, CCRN Extension: [phone] Please use your independent medical judgment in providing your response. THIS QUERY IS PART OF THE PERMANENT MEDICAL RECORD Provider Response: Obesity
--- NOTE | 2022-09-07 13:52 | MHC.CDI.CONC ---
CDI Concurrent Query Documentation Clarification: PHYSICIAN'S DOCUMENTATION REQUEST Date of Query: 09/07/22 4766 Patient Name: Kaitlin Ortiz Admit Date: 09/06/22 Dear Doctor, A review of the medical record indicates additional documentation may be needed. Please review below and update the documentation accordingly. Clinical Indicators: Is there a diagnosis that correlates with the findings below: Risk Factors/Clinical Indicators/Treatments BMI: 36.6 Height: 5ft 4in Weight: 96.8kg If possible, please provide an associated diagnosis related to the abnormal BMI, such as: BMI: Severe or Morbid Obesity Obesity Due to excess calories Drug induced Due to other cause With alveolar hypoventilation Without alveolar hypoventilation Or: BMI is not significant Other (please specify) Unable to determine Use of terms such as suspected, likely, concern for, or probable (associated with a specific diagnosis that is being evaluated, monitored, or treated as if it exists) are acceptable and can be coded in the inpatient setting, when documented at the time of discharge. Thank you, Sandie Sheth MS, RN, CCRN Extension: [phone] Please use your independent medical judgment in providing your response. THIS QUERY IS PART OF THE PERMANENT MEDICAL RECORD Provider Response: Obesity
--- NOTE | 2022-09-07 14:03 | P.CDIC_ITS ---
CDI Concurrent Query Documentation Clarification: PHYSICIAN'S DOCUMENTATION REQUEST Date of Query: 09/07/22 1426 Patient Name: Kaitlin Ortiz Admit Date: 09/06/22 Dear Doctor, A review of the medical record indicates additional documentation may be needed. Please review below and update the documentation accordingly. Clinical Indicators: Is there a diagnosis that correlates with the findings below: Risk Factors/Clinical Indicators/Treatments Labs: POCs 09/06 Home medications: Sitagliptin phosphate 100 mg Metformin 1000 mg Please clarify the following regarding Diabetes Mellitus (DM): * Hyperglycemia * No complications of DM * Other complication ? please specify * Unable to determine Use of terms such as suspected, likely, concern for, or probable (associated with a specific diagnosis that is being evaluated, monitored, or treated as if it exists) are acceptable and can be coded in the inpatient setting, when documented at the time of discharge. Thank you, Sandie Sheth MS, RN, CCRN Extension: [phone] Please use your independent medical judgment in providing your response. THIS QUERY IS PART OF THE PERMANENT MEDICAL RECORD Provider Response: Other Other Diagnosis: Type 2 diabetes with Hyperglycemia
[2022-09-07] MEDS: vancomycin HCL 1,000 MG in 0.9 % Sodium Chloride 250 ML 270 MG IV (14:15)
--- NOTE | 2022-09-07 14:30 | P.CDIC_ITS ---
CDI Concurrent Query Documentation Clarification: PHYSICIAN'S DOCUMENTATION REQUEST Date of Query: 09/07/22 1430 Patient Name: Kaitlin Ortiz Admit Date: 09/06/22 Dear Doctor, A review of the medical record indicates additional documentation may be needed. Please review below and update the documentation accordingly. Clinical Indicators: Is there a diagnosis that correlates with the findings below: Risk Factors/Clinical Indicators/Treatments POA/RESOLVED/TREAT/RULE OUT Per provider progress note on 09/07: acute UTI Urine culture growing Enterococcus, Streptococcus Other indicators: - (+) leukocytosis - TEMP on 09/07: 101.8 - Patient with tachypnea (RR: 22) - Patient receiving IV vancomycin Recognized standard criteria for this condition and other infectious definitions includes: Sepsis Systemic manifestations of infection, with 2 or more SIRS criteria which include: * Fever > 100.4?F or hypothermia < 96.8?F * Leukocytosis ? WBC > 12,000 or leukopenia, WBC < 4,000, or > 10% bands * Tachycardia- > 90 beats/minute * Tachypnea- RR > 20 breaths/minute or PaCO2 < 32mmHg Source: [employer] Manual 2013 Documentation should include the known or suspected organism, and the underlying infection, such as UTI or pneumonia Severe Sepsis Sepsis with associated acute organ dysfunction, such as renal or respiratory failure Documentation should indicate the association between the sepsis and the organ dysfunction Septic Shock Severe sepsis with associated with circulatory failure, evidenced by hypotension and hypoperfusion Based on the above information and the recognized standard for sepsis, could you please clarify in the Progress Notes if this diagnoses is still accurate and reflective of the patient's condition to ensure quality of the medical record. * Sepsis is/was present and is a clinical diagnosis based on (please include this additional support in the medical record) * After study (the condition) has been ruled out * Other (please specify) * Unable to determine Use of terms such as suspected, likely, concern for, or probable (associated with a specific diagnosis that is being evaluated, monitored, or treated as if it exists) are acceptable and can be coded in the inpatient setting, when documented at the time of discharge. Thank you, Sandie Sheth, , RN, CCRN Extension: [phone] Please use your independent medical judgment in providing your response. THIS QUERY IS PART OF THE PERMANENT MEDICAL RECORD Provider Response: Other Other Diagnosis: No Leukocytosis, no Sepsis
[2022-09-07] MEDS: hydrALAZINE HCl 50 MG TABLET PO ×2 (15:31→21:39)
[2022-09-07 16:44] LABS: Glucose, Whole Blood 291 mg/dL (60-115)
[2022-09-07] MEDS: Atorvastatin Calcium 80 MG TABLET PO (17:16)
[2022-09-07 18:16] LABS: Lactic Acid 0.8 mmol/L (0.5-2.0)
--- NOTE | 2022-09-07 18:54 | PM.UROCN ---
History of Present Illness Consult details Consult date: 09/07/22 Narrative: 77-year-old female with multiple medical problems listed below and chronic suprapubic tube admitted for UTI sepsis failed outpatient treatment, 08/16/2022 urine culture (Enterococcus), recent culture preliminary results only. Patient was seen in the urology office on 09/04/2022 and had SP tube changed and cystoscopy done by Dr. Hayes. The patient states she was told that the bladder was fine. On examination SP is in good position no signs of skin infection, urine draining in to gravity bag niki in color. Review of Systems Review of Systems: 10 point ROS negative other than stated in the HPI PMFSH Past Medical History Medical History Anemia Arthritis CLL (chronic lymphocytic leukemia) Diabetes mellitus Fibromyalgia History of bilateral breast cancer History of blood transfusion History of CVA (cerebrovascular accident) History of numbness Hypercholesterolemia Hypertension PONV (postoperative nausea and vomiting) Seasonal allergies Self-catheterizes urinary bladder Sleep apnea Wears dentures Family History Family History Mother Breast cancer Father Heart disease Father Lung cancer Mother Colon cancer Brother Pancreatic cancer Surgical History Surgical History History of back surgery History of biopsy of bladder History of bladder repair surgery History of esophagogastroduodenoscopy (EGD) History of suprapubic catheter History of total hysterectomy Hx of colonoscopy S/P Botox injection S/P breast biopsy, right S/P left breast biopsy Social History Social History Household Members: Significant Other Housing: House Are you a primary care aide to a significant other at home: No Do you presently have visiting nurse or other home services: No Alcohol intake: never Patient Tobacco Use Status: Never used Tobacco Advance Directives Date on File: 04/11/22 service: No Current occupational status: retired Meds Allergies Allergy/AdvReac Type Severity Reaction Status Date / Time amoxicillin [AMOXICILLIN] Allergy Severe stroke, Verified 09/05/22 21:44 blood clots ciprofloxacin [From CIPRO] Allergy Severe ANAPHYLAXIS Verified 09/05/22 21:44 Iodinated Contrast Media Allergy Severe HIVES Verified 09/05/22 21:44 [IV DYE, IODINE CONTAINING CONTRAST ] levofloxacin Allergy Severe Anaphylaxis Verified 09/05/22 21:44 liraglutide Allergy Severe Headache Verified 09/05/22 21:44 Penicillins Allergy Severe stroke, Verified 09/05/22 21:44 blood clots phenazopyridine [Pyridium] Allergy Severe Anaphylaxis Verified 09/05/22 21:44 FREYA Inhibitors Allergy Intermediate Cough Verified 09/05/22 21:44 ARB-Angiotensin Receptor Allergy Intermediate Cough Verified 09/05/22 21:44 Antagonist atorvastatin Allergy Intermediate Shortness Verified 09/05/22 21:44 of Breath cefpodoxime Allergy Intermediate Dizziness, Verified 09/05/22 21:44 nausea celecoxib [From CELEBREX] Allergy Intermediate HIVES Verified 09/05/22 21:44 doxazosin Allergy Intermediate Shortness Verified 09/05/22 21:44 of Breath fluticasone [Advair Diskus] Allergy Intermediate Anxiety Verified 09/05/22 21:44 gabapentin [From Neurontin] Allergy Intermediate Headache Verified 09/05/22 21:44 hydralazine Allergy Intermediate Shortness Verified 09/05/22 21:44 of Breath latex Allergy Intermediate Hives Verified 09/05/22 21:44 linezolid Allergy Intermediate Nausea and Verified 09/05/22 21:44 Vomiting meloxicam Allergy Intermediate Unknown Verified 09/05/22 21:44 salmeterol [Advair Diskus] Allergy Intermediate Anxiety Verified 09/05/22 21:44 Tetanus Vaccines and Toxoid Allergy Intermediate Swelling Verified 09/05/22 21:44 torsemide Allergy Intermediate Shortness Verified 09/05/22 21:44 of Breath cephalexin [Keflex] Allergy Mild Nausea Verified 09/05/22 21:44 Active Medications: Current Medications Acetaminophen (Acetaminophen 325 Mg Tablet) 650 mg PO Q6H PRN PRN Reason: Pain, Mild (Pain Scale 1-3) Last Admin: 09/07/22 17:20 Dose: 650 mg Amlodipine Besylate (Amlodipine Besylate 10 Mg Tablet) 10 mg PO DAILY [facility]; Protocol Last Admin: 09/07/22 08:05 Dose: 10 mg Ascorbic Acid (Ascorbic Acid 500 Mg Tablet) 500 mg PO BID [facility] Last Admin: 09/07/22 08:05 Dose: 500 mg Aspirin (Aspirin Enteric Coated 81 Mg Tablet.Dr) 81 mg PO DAILY [facility] Last Admin: 09/07/22 08:05 Dose: 81 mg Atorvastatin Calcium (Atorvastatin Calcium 80 Mg Tablet) 80 mg PO DAILY@1800 [facility] Last Admin: 09/07/22 17:16 Dose: 80 mg Carvedilol (Carvedilol 25 Mg Tablet) 25 mg PO BID [facility]; Protocol Last Admin: 09/07/22 08:05 Dose: 25 mg Cyclobenzaprine HCl (Cyclobenzaprine Hcl 5 Mg Tablet) 5 mg PO BEDTIME PRN PRN Reason: Insomnia/Muscle spasms Dextrose (Dextrose 50 % 25 Gm/50 Ml Syringe) 25 gm IVPUSH Q15M PRN; Protocol PRN Reason: per Hypoglycemia Standing Ord. Docusate Sodium (Docusate Sodium 100 Mg Capsule) 100 mg PO DAILY PRN PRN Reason: Constipation Duloxetine HCl (Duloxetine Hcl 60 Mg Capsule.) 60 mg PO DAILY [facility] Last Admin: 09/07/22 08:05 Dose: 60 mg Enoxaparin Sodium (Enoxaparin Sodium 40 Mg/0.4 Ml Syringe) 40 mg SUBCUT Q24H [facility] Last Admin: 09/07/22 12:20 Dose: 40 mg Escitalopram Oxalate (Escitalopram Oxalate 10 Mg Tablet) 10 mg PO DAILY [facility] Last Admin: 09/07/22 08:05 Dose: 10 mg Famotidine (Famotidine 20 Mg Tablet) 40 mg PO BEDTIME [facility] Last Admin: 09/06/22 21:12 Dose: 40 mg Ferrous Sulfate (Ferrous Sulfate 324 Mg Tablet.) 324 mg PO DAILY [facility] Last Admin: 09/07/22 08:05 Dose: 324 mg Glucose (Glucose Gel 15 Gm Gel..Gram.) 15 gm PO Q15M PRN; Protocol PRN Reason: per Hypoglycemia Standing Ord. Hydralazine HCl (Hydralazine Hcl 50 Mg Tablet) 50 mg PO TID [facility]; Protocol Last Admin: 09/07/22 15:31 Dose: 50 mg Vancomycin HCl 1,000 mg/ (Sodium Chloride) 270 mls @ 270 mls/hr IV Q12H [facility] Last Infusion: 09/07/22 15:33 Dose: Infused Insulin Human Lispro (Insulin Lispro 100 Unit/Ml 3 Ml Vial) 0.1 - 10 unit SUBCUT QIDACHS [facility]; Protocol Last Admin: 09/07/22 17:23 Dose: 6 unit Non-Formulary Medication (Potassium Citrate) 20 meq PO BID [facility] Non-Formulary Medication (Fosfomycin Tromethamine) 1 packet PO QWEEK [facility] Non-Formulary Medication (Sulindac) 150 mg PO BID [facility] Pt Own (Ibrutinib [ Imbruvica] 420 Mg Tablet) 420 mg PO DAILY [facility] Last Admin: 09/07/22 12:20 Dose: 420 mg Omeprazole (Omeprazole 20 Mg Capsule.Dr) 20 mg PO DAILY@0630 [facility] Last Admin: 09/07/22 06:07 Dose: 20 mg Ondansetron HCl (Ondansetron Hcl 4 Mg/2 Ml Vial) 4 mg IVPUSH Q8H PRN PRN Reason: Nausea and Vomiting Last Admin: 09/07/22 18:33 Dose: 4 mg Pharmacy Consult (Consult Rx Vancomycin Dosing) 1 each MISCELLANE DAILY PRN PRN Reason: Consult order Pregabalin (Pregabalin 150 Mg Capsule) 150 mg PO BID [facility] Last Admin: 09/07/22 08:05 Dose: 150 mg Senna (Sennosides 8.6 Mg Tablet) 17.2 mg PO BEDTIME [facility] Last Admin: 09/06/22 21:12 Dose: 17.2 mg Sodium Chloride (0.9 % Sodium Chloride Flush 3 Ml Syringe) 3 ml IVFLUSH QSHIFT [facility] Last Admin: 09/07/22 15:33 Dose: 3 ml Spironolactone (Spironolactone 25 Mg Tablet) 25 mg PO DAILY [facility]; Protocol Last Admin: 09/07/22 08:05 Dose: 25 mg Home Medications Medication Instructions Recorded Confirmed Last Taken Type citalopram 20 mg tablet 20 mg PO DAILY 07/21/20 09/06/22 04/16/22 History cyclobenzaprine 5 mg tablet 5 mg PO BEDTIME PRN 07/21/20 09/06/22 Unknown History Insomnia/Muscle spasms duloxetine 60 mg capsule,delayed 60 mg PO DAILY 07/21/20 09/06/22 04/16/22 History release spironolactone 25 mg tablet 25 mg PO DAILY 07/21/20 09/06/22 Unknown History amlodipine 10 mg tablet 10 mg PO DAILY 03/23/21 09/06/22 04/16/22 History metformin 1,000 mg tablet 1,000 mg PO BID 04/19/21 09/06/22 Unknown History carvedilol 25 mg tablet 25 mg PO BID 05/31/21 09/06/22 04/16/22 History pregabalin 150 mg capsule 150 mg PO BID 07/27/21 09/06/22 04/16/22 History sulindac 150 mg tablet 150 mg PO BID 07/27/21 09/06/22 04/15/22 History sitagliptin phosphate 100 mg 100 mg PO QAM 08/21/22 09/06/22 Unknown History tablet (Januvia) furosemide 20 mg tablet 40 mg PO QAM 08/27/22 09/06/22 Unknown History blood sugar diagnostic (Accu-Chek #10 ea 09/04/22 Unknown History Guide test strips) hydralazine 25 mg tablet 25 mg PO TID 09/04/22 09/06/22 Unknown History fosfomycin tromethamine 3 gram 1 packet PO QWEEK UTI suppression 09/06/22 09/06/22 Unknown History oral packet ibrutinib 420 mg tablet (Imbruvica) 420 mg PO DAILY 09/07/22 09/07/22 Unknown History Physical Exam Vital Signs: Vital Signs: Last Vital Signs Temp 103.0 F H 09/07/22 17:37 Pulse 91 09/07/22 17:37 Resp 18 09/07/22 17:37 BP 161/68 H 09/07/22 17:37 Pulse Ox 92 09/07/22 17:37 O2 Del Method 09/07/22 17:37 BMI result Body Mass Index 36.6 Const: General: cooperative and no acute distress Orientation/consciousness: patient oriented x3 HEENT: Head: Yes normal to inspection, Yes normocephalic and Yes atraumatic Eyes: Conjunctivae: conjunctivae normal Neck: Neck: Yes normal visual inspection and Yes trachea midline Chest: Chest palpation & inspection: normal inspection of the chest Resp: Effort & Inspection: normal respiratory effort Cardio: Rate: regular rate GI: Inspection: Yes normal to inspection Palpation (GI): Soft to palpation : Other: SP tube in good position draining to gravity bag. Skin: General skin exam: no rashes or lesions noted Neuro: General: patient oriented x3 Extrem: General: No edema Psych: Appearance: grossly normal Results Labs Result diagrams: 09/07/22 06:58 09/07/22 06:58 Labs: Abnormal lab results 09/06/22 09/07/22 09/07/22 Range/Units 20:44 06:58 06:58 RBC 3.82 L (4.20-5.50) X10*6/uL Hgb 11.4 L (12.0-16.0) g/dl Hct 34.6 L (37.0-47.0) % Plt Count 103 L (160-400) X10*3/uL MPV 12.7 H (9.4-12.3) fL Sodium 133 L (135-145) mmol/L POC Glucose 249 H (60-115) mg/dL Random Glucose 211 H (60-115) mg/dL Vancomycin Trough (10.0-20.0) mcg/mL 09/07/22 09/07/22 09/07/22 Range/Units 07:07 10:59 12:39 RBC (4.20-5.50) X10*6/uL Hgb (12.0-16.0) g/dl Hct (37.0-47.0) % Plt Count (160-400) X10*3/uL MPV (9.4-12.3) fL Sodium (135-145) mmol/L POC Glucose 206 H 232 H (60-115) mg/dL Random Glucose (60-115) mg/dL Vancomycin Trough 6.5 L (10.0-20.0) mcg/mL 09/07/22 Range/Units 16:28 RBC (4.20-5.50) X10*6/uL Hgb (12.0-16.0) g/dl Hct (37.0-47.0) % Plt Count (160-400) X10*3/uL MPV (9.4-12.3) fL Sodium (135-145) mmol/L POC Glucose 291 H (60-115) mg/dL Random Glucose (60-115) mg/dL Vancomycin Trough (10.0-20.0) mcg/mL Short CBC 09/07/22 Range/Units 06:58 WBC 7.8 (4.8-10.8) X10*3/uL Hgb 11.4 L (12.0-16.0) g/dl Hct 34.6 L (37.0-47.0) % Plt Count 103 L (160-400) X10*3/uL BMP 12/30/22 06:58 Sodium 133 L Potassium 4.0 Chloride 99 Carbon Dioxide 26 BUN 11 Creatinine 1.17 Calcium 8.7 Urine 09/05/22 Range/Units 22:53 Urine Color Dark Yellow Urine Appearance Clear Urine pH 7.5 (5.0-9.0) Ur Specific [place] 1.015 (1.005-1.025) Urine Protein Trace (Neg-Trace) mg/dL Urine Glucose (UA) Negative (Negative) mg/dL All other labs normal. Assessment and Plan (1) Acute UTI: Status: Acute (2) Allergy to multiple antibiotics: Status: Acute Plan 77-year-old female with chronic SP tube, s/p suprapubic tube change and office cysto by Dr. Hayes on 09/04/22 -- UTI ---failed outpatient therapy # Co Morbidiy diabetes # acute UTI - started on Macrobid on 09/04, has more confusion, lethargy, UA remains positive - has grown E coli as well as Enterococcus faecalis in the past with multiple resistance, - failed Macrobid, started on IV vancomycin for Enterococcus faecalis, as well as Aztreonem for E coli - pending cultures No other recommendations at this time Time Spent With Patient Time: Total time managing care of this patient today ____ minutes. Procedures Date of Service Date of Service: 09/07/22
[2022-09-07 21:21] LABS: Glucose, Whole Blood 214 mg/dL (60-115)
--- NOTE | 2022-09-07 21:36 | P.CNID_ITS ---
History of Present Illness Data of Consult Service Date: 09/07/22 Requesting physician: Leonardo Merritt Primary Care Provider: Ricardo Breen MD HPI Reason for consult: fever and back pain She presents with two days fever and fatigue. Her son two days ago She reports fever and bilateral flank pain ,7/10. She has niki urine in [place] and reported some redness as well. Review of Systems Review of Systems: Yes all other systems are reviewed and are negative PMFSH Past Medical History Medical History Anemia Arthritis CLL (chronic lymphocytic leukemia) Diabetes mellitus Fibromyalgia History of bilateral breast cancer History of blood transfusion History of CVA (cerebrovascular accident) History of numbness Hypercholesterolemia Hypertension PONV (postoperative nausea and vomiting) Seasonal allergies Self-catheterizes urinary bladder Sleep apnea Wears dentures Family History Family History Mother Breast cancer Father Heart disease Father Lung cancer Mother Colon cancer Brother Pancreatic cancer Family history: reviewed and not pertinent Surgical History Surgical History History of back surgery History of biopsy of bladder History of bladder repair surgery History of esophagogastroduodenoscopy (EGD) History of suprapubic catheter History of total hysterectomy Hx of colonoscopy S/P Botox injection S/P breast biopsy, right S/P left breast biopsy Social History Social History Household Members: Significant Other Housing: House Are you a primary vision care associate to a significant other at home: No Do you presently have visiting nurse or other home services: No Alcohol intake: never Patient Tobacco Use Status: Never used Tobacco Advance Directives Date on File: 04/11/22 service: No Current occupational status: retired Meds Allergies Allergy/AdvReac Type Severity Reaction Status Date / Time amoxicillin [AMOXICILLIN] Allergy Severe stroke, Verified 09/05/22 21:44 blood clots ciprofloxacin [From CIPRO] Allergy Severe ANAPHYLAXIS Verified 09/05/22 21:44 Iodinated Contrast Media Allergy Severe HIVES Verified 09/05/22 21:44 [IV DYE, IODINE CONTAINING CONTRAST ] levofloxacin Allergy Severe Anaphylaxis Verified 09/05/22 21:44 liraglutide Allergy Severe Headache Verified 09/05/22 21:44 Penicillins Allergy Severe stroke, Verified 09/05/22 21:44 blood clots phenazopyridine [Pyridium] Allergy Severe Anaphylaxis Verified 09/05/22 21:44 FREYA Inhibitors Allergy Intermediate Cough Verified 09/05/22 21:44 ARB-Angiotensin Receptor Allergy Intermediate Cough Verified 09/05/22 21:44 Antagonist atorvastatin Allergy Intermediate Shortness Verified 09/05/22 21:44 of Breath cefpodoxime Allergy Intermediate Dizziness, Verified 09/05/22 21:44 nausea celecoxib [From CELEBREX] Allergy Intermediate HIVES Verified 09/05/22 21:44 doxazosin Allergy Intermediate Shortness Verified 09/05/22 21:44 of Breath fluticasone [Advair Diskus] Allergy Intermediate Anxiety Verified 09/05/22 21:44 gabapentin [From Neurontin] Allergy Intermediate Headache Verified 09/05/22 21:44 hydralazine Allergy Intermediate Shortness Verified 09/05/22 21:44 of Breath latex Allergy Intermediate Hives Verified 09/05/22 21:44 linezolid Allergy Intermediate Nausea and Verified 09/05/22 21:44 Vomiting meloxicam Allergy Intermediate Unknown Verified 09/05/22 21:44 salmeterol [Advair Diskus] Allergy Intermediate Anxiety Verified 09/05/22 21:44 Tetanus Vaccines and Toxoid Allergy Intermediate Swelling Verified 09/05/22 21:44 torsemide Allergy Intermediate Shortness Verified 09/05/22 21:44 of Breath cephalexin [Keflex] Allergy Mild Nausea Verified 09/05/22 21:44 Active Medications: Current Medications Acetaminophen (Acetaminophen 325 Mg Tablet) 650 mg PO Q6H PRN PRN Reason: Pain, Mild (Pain Scale 1-3) Last Admin: 09/07/22 17:20 Dose: 650 mg Amlodipine Besylate (Amlodipine Besylate 10 Mg Tablet) 10 mg PO DAILY [facility]; Protocol Last Admin: 09/07/22 08:05 Dose: 10 mg Ascorbic Acid (Ascorbic Acid 500 Mg Tablet) 500 mg PO BID [facility] Last Admin: 09/07/22 08:05 Dose: 500 mg Aspirin (Aspirin Enteric Coated 81 Mg Tablet.) 81 mg PO DAILY [facility] Last Admin: 09/07/22 08:05 Dose: 81 mg Atorvastatin Calcium (Atorvastatin Calcium 80 Mg Tablet) 80 mg PO DAILY@1800 [facility] Last Admin: 09/07/22 17:16 Dose: 80 mg Carvedilol (Carvedilol 25 Mg Tablet) 25 mg PO BID [facility]; Protocol Last Admin: 09/07/22 08:05 Dose: 25 mg Cyclobenzaprine HCl (Cyclobenzaprine Hcl 5 Mg Tablet) 5 mg PO BEDTIME PRN PRN Reason: Insomnia/Muscle spasms Dextrose (Dextrose 50 % 25 Gm/50 Ml Syringe) 25 gm IVPUSH Q15M PRN; Protocol PRN Reason: per Hypoglycemia Standing Ord. Docusate Sodium (Docusate Sodium 100 Mg Capsule) 100 mg PO DAILY PRN PRN Reason: Constipation Duloxetine HCl (Duloxetine Hcl 60 Mg Capsule.Dr) 60 mg PO DAILY [facility] Last Admin: 09/07/22 08:05 Dose: 60 mg Enoxaparin Sodium (Enoxaparin Sodium 40 Mg/0.4 Ml Syringe) 40 mg SUBCUT Q24H [facility] Last Admin: 09/07/22 12:20 Dose: 40 mg Escitalopram Oxalate (Escitalopram Oxalate 10 Mg Tablet) 10 mg PO DAILY [facility] Last Admin: 09/07/22 08:05 Dose: 10 mg Famotidine (Famotidine 20 Mg Tablet) 40 mg PO BEDTIME [facility] Last Admin: 09/06/22 21:12 Dose: 40 mg Ferrous Sulfate (Ferrous Sulfate 324 Mg Tablet.) 324 mg PO DAILY [facility] Last Admin: 09/07/22 08:05 Dose: 324 mg Glucose (Glucose Gel 15 Gm Gel..Gram.) 15 gm PO Q15M PRN; Protocol PRN Reason: per Hypoglycemia Standing Ord. Hydralazine HCl (Hydralazine Hcl 50 Mg Tablet) 50 mg PO TID [facility]; Protocol Last Admin: 09/07/22 15:31 Dose: 50 mg Vancomycin HCl 1,000 mg/ (Sodium Chloride) 270 mls @ 270 mls/hr IV Q12H [facility] Last Infusion: 09/07/22 15:33 Dose: Infused Insulin Human Lispro (Insulin Lispro 100 Unit/Ml 3 Ml Vial) 0.1 - 10 unit SUBCUT QIDACHS [facility]; Protocol Last Admin: 09/07/22 17:23 Dose: 6 unit Non-Formulary Medication (Potassium Citrate) 20 meq PO BID [facility] Non-Formulary Medication (Fosfomycin Tromethamine) 1 packet PO QWEEK [facility] Non-Formulary Medication (Sulindac) 150 mg PO BID [facility] Pt Own (Ibrutinib [ Imbruvica] 420 Mg Tablet) 420 mg PO DAILY [facility] Last Admin: 09/07/22 12:20 Dose: 420 mg Omeprazole (Omeprazole 20 Mg Capsule.Dr) 20 mg PO DAILY@0630 [facility] Last Admin: 09/07/22 06:07 Dose: 20 mg Ondansetron HCl (Ondansetron Hcl 4 Mg/2 Ml Vial) 4 mg IVPUSH Q8H PRN PRN Reason: Nausea and Vomiting Last Admin: 09/07/22 18:33 Dose: 4 mg Pharmacy Consult (Consult Rx Vancomycin Dosing) 1 each MISCELLANE DAILY PRN PRN Reason: Consult order Pregabalin (Pregabalin 150 Mg Capsule) 150 mg PO BID [facility] Last Admin: 09/07/22 08:05 Dose: 150 mg Senna (Sennosides 8.6 Mg Tablet) 17.2 mg PO BEDTIME [facility] Last Admin: 09/06/22 21:12 Dose: 17.2 mg Sodium Chloride (0.9 % Sodium Chloride Flush 3 Ml Syringe) 3 ml IVFLUSH QSHIFT [facility] Last Admin: 09/07/22 15:33 Dose: 3 ml Spironolactone (Spironolactone 25 Mg Tablet) 25 mg PO DAILY [facility]; Protocol Last Admin: 09/07/22 08:05 Dose: 25 mg Home Medications Medication Instructions Recorded Confirmed Last Taken Type citalopram 20 mg tablet 20 mg PO DAILY 07/21/20 09/06/22 04/16/22 History cyclobenzaprine 5 mg tablet 5 mg PO BEDTIME PRN 07/21/20 09/06/22 Unknown History Insomnia/Muscle spasms duloxetine 60 mg capsule,delayed 60 mg PO DAILY 07/21/20 09/06/22 04/16/22 History release spironolactone 25 mg tablet 25 mg PO DAILY 07/21/20 09/06/22 Unknown History amlodipine 10 mg tablet 10 mg PO DAILY 03/23/21 09/06/22 04/16/22 History metformin 1,000 mg tablet 1,000 mg PO BID 04/19/21 09/06/22 Unknown History carvedilol 25 mg tablet 25 mg PO BID 05/31/21 09/06/22 04/16/22 History pregabalin 150 mg capsule 150 mg PO BID 07/27/21 09/06/22 04/16/22 History sulindac 150 mg tablet 150 mg PO BID 07/27/21 09/06/22 04/15/22 History sitagliptin phosphate 100 mg 100 mg PO QAM 08/21/22 09/06/22 Unknown History tablet (Januvia) furosemide 20 mg tablet 40 mg PO QAM 08/27/22 09/06/22 Unknown History blood sugar diagnostic (Accu-Chek #10 ea 09/04/22 Unknown History Guide test strips) hydralazine 25 mg tablet 25 mg PO TID 09/04/22 09/06/22 Unknown History fosfomycin tromethamine 3 gram 1 packet PO QWEEK UTI suppression 09/06/22 09/06/22 Unknown History oral packet ibrutinib 420 mg tablet (Imbruvica) 420 mg PO DAILY 09/07/22 09/07/22 Unknown History Physical Exam Vital Signs: Vital Signs: Last Vital Signs Temp 98.4 F 09/07/22 20:00 Pulse 85 09/07/22 20:00 Resp 18 09/07/22 20:00 BP 153/68 H 09/07/22 20:00 Pulse Ox 90 L 09/07/22 20:00 O2 Del Method 09/07/22 20:00 BMI result Body Mass Index 36.6 Const: General: cooperative HEENT: Head: Yes normal to inspection Face and sinus: Yes normal facial exam Mouth: Normal oral and palatal mucosa present Teeth and gingiva: dentition normal Eyes: General: appearance normal, both eyes and all related structures Pupils: Equal, round and reactive pupils present Resp: Effort & Inspection: normal respiratory effort Cardio: Rate: regular rate Rhythm: regular rhythm GI: Palpation (GI): Soft to palpation and nontender : General: Yes no CVA tenderness Back/Spine/Pelvis: Back: no CVA tenderness Skin: General skin exam: no rashes or lesions noted Neuro: General: moves all extremities Cranial nerves: Yes Equal, round and reactive pupils present Extrem: General: Yes normal to inspection Psych: Appearance: grossly normal Results Labs CBC & Chem 7: 09/07/22 06:58 09/07/22 06:58 Labs: Short CBC 09/07/22 Range/Units 06:58 WBC 7.8 (4.8-10.8) X10*3/uL Hgb 11.4 L (12.0-16.0) g/dl Hct 34.6 L (37.0-47.0) % Plt Count 103 L (160-400) X10*3/uL BMP 09/07/22 06:58 Sodium 133 L Potassium 4.0 Chloride 99 Carbon Dioxide 26 BUN 11 Creatinine 1.17 Calcium 8.7 Microbiology Microbiology Results: Microbiology 09/05/22 23:08 Urine clean catch - Urine huitron top Urine Culture - Preliminary Enterococcus/Streptococcus sp 09/05/22 23:44 Blood - Venous Blood Culture - Preliminary No growth after 24 hours. 09/05/22 23:44 Blood - Venous Blood Culture - Preliminary No growth after 24 hours. Assessment and Plan (1) Allergy to multiple antibiotics: Status: Acute (2) Acute UTI: Status: Acute She has UTI with back pain and fever. She has enterococcus faecalis responsible. She isnt taking po well due to some nausea. (3) CLL (chronic lymphocytic leukemia): Status: Acute (4) Type 2 diabetes mellitus with unspecified complications: Status: Acute Plan Continue Vancomycin until taking po well. She can finish 14 days treatment with Amoxicillin 500 mg po tid. Time Spent With Patient Time: Total time managing care of this patient today ____ minutes.
[2022-09-07] MEDS: Sennosides 8.6 MG TABLET 17.2 MG PO (21:39)
[2022-09-07] MEDS: Famotidine 20 MG TABLET 40 MG PO (21:39)
[2022-09-08] MEDS: vancomycin HCL 1,000 MG in 0.9 % Sodium Chloride 250 ML 270 MG IV ×2 (00:51→13:19)
[2022-09-08] MEDS: 0.9 % Sodium Chloride Flush 3 ML SYRINGE IVFLUSH ×4 (00:51→21:01)
[2022-09-08 03:19] VITALS: BP 142/63; PULSE 79; RESP 16; TEMP 37.3; O2SAT 92
[2022-09-08] MEDS: Omeprazole 20 MG CAPSULE.DR PO (05:16)
[2022-09-08 05:48] LABS: Hematocrit 35.5 % (37.0-47.0); Hemoglobin 11.8 g/dl (12.0-16.0); Mean Corpuscular HGB Conc 33.2 g/dl (31.0-35.0); Mean Corpuscular Volume 90.3 fL (80.0-98.0); Mean Platelet Volume 12.3 fL (9.4-12.3); Platelet Count 104 X10*3/uL (160-400); Red Blood Count 3.93 X10*6/uL (4.20-5.50); Red Cell Distribution Width 13.3 % (11.0-16.0); White Blood Count 6.3 X10*3/uL (4.8-10.8)
[2022-09-08 06:18] LABS: Anion Gap 14 (12-20); Blood Urea Nitrogen 12 mg/dL (9-16); Calcium 8.7 mg/dL (8.4-10.2); Carbon Dioxide 23 mmol/L (22-29); Chloride 102 mmol/L (96-108); Creatinine Clr Calc Pharmacy 52.4; Estimated Glomerular Filt Rate 52; Glucose Random 221 mg/dL (60-115); Potassium 3.5 mmol/L (3.3-5.1); Sodium 135 mmol/L (135-145)
[2022-09-08 06:19] LABS: Creatinine Clr Calc Pharmacy 52.4; Estimated Glomerular Filt Rate 52
[2022-09-08 07:11] VITALS: BP 137/63; PULSE 79; RESP 18; TEMP 37.6; O2SAT 95
[2022-09-08] MEDS: Insulin Lispro 100 UNIT/ML 3 ML VIAL SUBCUT ×4 (07:53→21:01)
[2022-09-08] MEDS: amLODIPine Besylate 10 MG TABLET PO (07:54)
[2022-09-08] MEDS: Pregabalin 150 MG CAPSULE PO ×2 (07:54→21:00)
[2022-09-08] MEDS: Spironolactone 25 MG TABLET PO (07:54)
[2022-09-08] MEDS: Ascorbic Acid 500 MG TABLET PO ×2 (07:54→21:00)
[2022-09-08] MEDS: DULoxetine HCl 60 MG CAPSULE.DR PO (07:54)
[2022-09-08] MEDS: carvediloL 25 MG TABLET PO ×2 (07:54→21:01)
[2022-09-08] MEDS: Escitalopram Oxalate 10 MG TABLET PO (07:55)
[2022-09-08] MEDS: hydrALAZINE HCl 50 MG TABLET PO ×3 (07:55→21:01)
[2022-09-08] MEDS: Ferrous Sulfate 324 MG TABLET.DR PO (07:55)
[2022-09-08] MEDS: Aspirin Enteric Coated 81 MG TABLET.DR PO (07:55)
[2022-09-08 07:57] LABS: Glucose, Whole Blood 197 mg/dL (60-115)
[2022-09-08] MEDS: ondansetron HCL 4 MG/2 ML VIAL IVPUSH ×2 (10:08→18:03)
--- NOTE | 2022-09-08 11:17 | HO.PM.IMPN ---
Subjective Subjective Date of Service: 09/08/22 Interval History: the patient was seen and evaluated this morning Laying in bed, feels better this morning but still having chills on occasions Had fever last night, no recurrence overnight No reported other overnight events. Systemic review: Reporting chills and weakness No chest pain, palpitation No shortness of breath or coughing No abdominal pain, reporting some nausea Increased frequency No reported rash Physical Exam Vital Signs: Vital Signs: Last Vital Signs Temp 99.6 F 09/08/22 07:11 Pulse 79 09/08/22 07:11 Resp 18 09/08/22 07:11 BP 137/63 09/08/22 07:11 Pulse Ox 95 09/08/22 07:11 O2 Del Method 09/08/22 07:11 BMI result Body Mass Index 36.6 Const: Other: Constitutional : Awake, interactive, not in distress Neck : Normal inspection, Supple Cardiovascular : RRR, no JVP, no lower extremity edema Respiratory : good bilateral air entry, no crackles, wheezes or rhonchi Gastrointestinal: soft, lax, Normal bowel sounds, Non tender Skin : Warm, Dry Neurological : Alert & oriented x3, No focal deficit , CN 2-12 within normal Objective Data Active Medications Acetaminophen (Acetaminophen 325 Mg Tablet) 650 mg PO Q6H PRN PRN Reason: Pain, Mild (Pain Scale 1-3) Last Admin: 09/07/22 17:20 Dose: 650 mg Documented By: PIERRE Amlodipine Besylate (Amlodipine Besylate 10 Mg Tablet) 10 mg PO DAILY [facility]; Protocol Last Admin: 09/08/22 07:54 Dose: 10 mg Documented By: JESSICA Ascorbic Acid (Ascorbic Acid 500 Mg Tablet) 500 mg PO BID [facility] Last Admin: 09/08/22 07:54 Dose: 500 mg Documented By: JESSICA Aspirin (Aspirin Enteric Coated 81 Mg Tablet.Dr) 81 mg PO DAILY [facility] Last Admin: 09/08/22 07:55 Dose: 81 mg Documented By: JESSICA Atorvastatin Calcium (Atorvastatin Calcium 80 Mg Tablet) 80 mg PO DAILY@1800 [facility] Last Admin: 09/07/22 17:16 Dose: 80 mg Documented By: PIERRE Carvedilol (Carvedilol 25 Mg Tablet) 25 mg PO BID [facility]; Protocol Last Admin: 09/08/22 07:54 Dose: 25 mg Documented By: JESSICA Cyclobenzaprine HCl (Cyclobenzaprine Hcl 5 Mg Tablet) 5 mg PO BEDTIME PRN PRN Reason: Insomnia/Muscle spasms Dextrose (Dextrose 50 % 25 Gm/50 Ml Syringe) 25 gm IVPUSH Q15M PRN; Protocol PRN Reason: per Hypoglycemia Standing Ord. Docusate Sodium (Docusate Sodium 100 Mg Capsule) 100 mg PO DAILY PRN PRN Reason: Constipation Duloxetine HCl (Duloxetine Hcl 60 Mg Capsule.) 60 mg PO DAILY [facility] Last Admin: 09/08/22 07:54 Dose: 60 mg Documented By: JESSICA Enoxaparin Sodium (Enoxaparin Sodium 40 Mg/0.4 Ml Syringe) 40 mg SUBCUT Q24H [facility] Last Admin: 09/07/22 12:20 Dose: 40 mg Documented By: ESME Escitalopram Oxalate (Escitalopram Oxalate 10 Mg Tablet) 10 mg PO DAILY [facility] Last Admin: 09/08/22 07:55 Dose: 10 mg Documented By: JESSICA Famotidine (Famotidine 20 Mg Tablet) 40 mg PO BEDTIME [facility] Last Admin: 09/07/22 21:39 Dose: 40 mg Documented By: NATHANIEL Ferrous Sulfate (Ferrous Sulfate 324 Mg Tablet.) 324 mg PO DAILY [facility] Last Admin: 09/08/22 07:55 Dose: 324 mg Documented By: JESSICA Glucose (Glucose Gel 15 Gm Gel..Gram.) 15 gm PO Q15M PRN; Protocol PRN Reason: per Hypoglycemia Standing Ord. Hydralazine HCl (Hydralazine Hcl 50 Mg Tablet) 50 mg PO TID [facility]; Protocol Last Admin: 09/08/22 07:55 Dose: 50 mg Documented By: JESSICA Vancomycin HCl 1,000 mg/ (Sodium Chloride) 270 mls @ 270 mls/hr IV Q12H [facility] Last Infusion: 09/08/22 01:57 Dose: 0 mls/hr Documented By: NATHANIEL Insulin Human Lispro (Insulin Lispro 100 Unit/Ml 3 Ml Vial) 0.1 - 10 unit SUBCUT QIDACHS [facility]; Protocol Last Admin: 09/08/22 07:53 Dose: 2 unit Documented By: JESSICA Non-Formulary Medication (Potassium Citrate) 20 meq PO BID [facility] Non-Formulary Medication (Fosfomycin Tromethamine) 1 packet PO QWEEK [facility] Non-Formulary Medication (Sulindac) 150 mg PO BID [facility] Pt Own (Ibrutinib [ Imbruvica] 420 Mg Tablet) 420 mg PO DAILY [facility] Last Admin: 09/08/22 07:55 Dose: 420 mg Documented By: JESSICA Omeprazole (Omeprazole 20 Mg Capsule.Dr) 20 mg PO DAILY@0630 [facility] Last Admin: 09/08/22 05:16 Dose: 20 mg Documented By: NATHANIEL Ondansetron HCl (Ondansetron Hcl 4 Mg/2 Ml Vial) 4 mg IVPUSH Q8H PRN PRN Reason: Nausea and Vomiting Last Admin: 09/08/22 10:08 Dose: 4 mg Documented By: JESSICA Pharmacy Consult (Consult Rx Vancomycin Dosing) 1 each MISCELLANE DAILY PRN PRN Reason: Consult order Pregabalin (Pregabalin 150 Mg Capsule) 150 mg PO BID [facility] Last Admin: 09/08/22 07:54 Dose: 150 mg Documented By: JESSICA Senna (Sennosides 8.6 Mg Tablet) 17.2 mg PO BEDTIME [facility] Last Admin: 09/07/22 21:39 Dose: 17.2 mg Documented By: NATHANIEL Sodium Chloride (0.9 % Sodium Chloride Flush 3 Ml Syringe) 3 ml IVFLUSH QSHIFT [facility] Last Admin: 09/08/22 07:54 Dose: 3 ml Documented By: JESSICA Spironolactone (Spironolactone 25 Mg Tablet) 25 mg PO DAILY [facility]; Protocol Last Admin: 09/08/22 07:54 Dose: 25 mg Documented By: JESSICA Labs CBC & Chem 7: 09/08/22 05:24 09/08/22 05:24 Labs: Laboratory Results - last 24 hr 09/07/22 09/07/22 09/07/22 10:59 12:39 16:28 MCV MCH MCHC RDW Plt Count MPV Absolute Nucleated RBC Nucleated RBC % (auto) Anion Gap Estim Creat Clear Calc Estimated GFR POC Glucose 232 H 291 H Random Glucose Lactic Acid Calcium Vancomycin Trough 6.5 L 09/07/22 09/07/22 09/08/22 17:55 21:08 05:24 MCV MCH MCHC RDW Plt Count MPV Absolute Nucleated RBC Nucleated RBC % (auto) Anion Gap Estim Creat Clear Calc 52.4 Estimated GFR 52 POC Glucose 214 H Random Glucose Lactic Acid 0.8 Calcium Vancomycin Trough 09/08/22 09/08/22 09/08/22 05:24 05:24 07:14 MCV 90.3 MCH 30.0 MCHC 33.2 RDW 13.3 Plt Count 104 L MPV 12.3 Absolute Nucleated RBC 0.000 Nucleated RBC % (auto) 0.0 Anion Gap 14 Estim Creat Clear Calc 52.4 Estimated GFR 52 POC Glucose 197 H Random Glucose 221 H Lactic Acid Calcium 8.7 Vancomycin Trough Microbiology Microbiology Results: Microbiology 09/05/22 23:08 Urine Culture - Preliminary Urine clean catch - Urine huitron top Enterococcus faecalis 09/05/22 23:44 Blood Culture - Preliminary Blood - Venous No growth after 48 hours. 09/05/22 23:44 Blood Culture - Preliminary Blood - Venous No growth after 48 hours. Assessment and Plan (1) Acute UTI: Status: Acute (2) Allergy to multiple antibiotics: Status: Acute Plan 77-year-old female with multiple past medical history as well as multiple allergies to many antibiotics presents to the hospital with confusion, increased lethargy found to have acute UTI failed outpatient therapy # acute UTI s/p suprapubic tube change and office cysto by Dr. Hayes on 09/04/22 Urine culture growing Enterococcus faecalis CT scan negative for any obstruction, pyelonephritis Continue IV vancomycin for Enterococcus faecalis, DC Aztreonem Urology input appreciated, no other recommendations at this time Plan to discharge home # diabetes Continue low-dose sliding scale insulin diabetic diet hold oral anti hypoglycemics # hypertension stable continue home antihypertensives DVT prophylaxis: Lovenox given failed outpatient therapy, as well as multiple allergies to many antibiotics patient required overnight inpatient hospital stay for further management and monitoring Time Spent With Patient Time: Total time managing care of this patient today ____ minutes. Quality Stroke Does the patient have a stroke diagnosis?: No VTE Prior VTE?: No VTE Risk Level:: Medical - low VTE Device Contraindication: N/A - Device Ordered VTE Drug Contraindication: Treatment Not Indicated
[2022-09-08 11:30] LABS: Glucose, Whole Blood 219 mg/dL (60-115)
[2022-09-08 11:32] LABS: Vancomycin Trough 10.4 mcg/mL (10.0-20.0)
[2022-09-08] MEDS: Enoxaparin Sodium 40 MG/0.4 ML SYRINGE SUBCUT (11:37)
--- NOTE | 2022-09-08 12:05 | HE.PHANOTE ---
felice perez continue current dose, next level due 09/09 @1100. Per insight this dose is too high, and it is predicting dose dump. Will continue x 2 more doses Triston
[2022-09-08 12:10] VITALS: TEMP 37.3
[2022-09-08 15:30] VITALS: BP 126/59; PULSE 78; RESP 18; TEMP 36.9; O2SAT 94
[2022-09-08] MEDS: cefTRIAXone sodium 1 GM in 0.9 % Sodium Chloride 50 ML IV (15:38)
[2022-09-08 15:59] LABS: Glucose, Whole Blood 287 mg/dL (60-115)
[2022-09-08] MEDS: Atorvastatin Calcium 80 MG TABLET PO (17:18)
[2022-09-08 19:56] VITALS: BP 142/74; PULSE 75; RESP 18; TEMP 36.9; O2SAT 97
[2022-09-08 20:52] LABS: Glucose, Whole Blood 293 mg/dL (60-115)
[2022-09-08] MEDS: Sennosides 8.6 MG TABLET 17.2 MG PO (21:00)
[2022-09-08] MEDS: Famotidine 20 MG TABLET 40 MG PO (21:00)
[2022-09-09] MEDS: vancomycin HCL 1,000 MG in 0.9 % Sodium Chloride 250 ML 270 MG IV ×2 (00:30→11:44)
[2022-09-09 04:00] VITALS: BP 145/67; PULSE 66; RESP 18; TEMP 36.8; O2SAT 93
[2022-09-09] MEDS: Omeprazole 20 MG CAPSULE.DR PO (05:37)
[2022-09-09 06:57] LABS: Creatinine Clr Calc Pharmacy 52.4; Estimated Glomerular Filt Rate 52
[2022-09-09 07:11] VITALS: BP 172/72; PULSE 69; RESP 18; TEMP 36.1; O2SAT 93
[2022-09-09 08:09] LABS: Glucose, Whole Blood 193 mg/dL (60-115)
[2022-09-09 08:33] LABS: Estimated Average Glucose 146 mg/dL; Hemoglobin A1c % 6.7 %
[2022-09-09] MEDS: Aspirin Enteric Coated 81 MG TABLET.DR PO (08:46)
[2022-09-09] MEDS: Insulin Lispro 100 UNIT/ML 3 ML VIAL SUBCUT ×2 (08:46→11:43)
[2022-09-09] MEDS: Ferrous Sulfate 324 MG TABLET.DR PO (08:47)
[2022-09-09] MEDS: Ascorbic Acid 500 MG TABLET PO (08:47)
[2022-09-09] MEDS: Escitalopram Oxalate 10 MG TABLET PO (08:47)
[2022-09-09] MEDS: Spironolactone 25 MG TABLET PO (08:47)
[2022-09-09] MEDS: amLODIPine Besylate 10 MG TABLET PO (08:47)
[2022-09-09] MEDS: carvediloL 25 MG TABLET PO (08:47)
[2022-09-09] MEDS: DULoxetine HCl 60 MG CAPSULE.DR PO (08:47)
[2022-09-09] MEDS: hydrALAZINE HCl 50 MG TABLET PO (08:47)
[2022-09-09] MEDS: Pregabalin 150 MG CAPSULE PO (08:47)
[2022-09-09] MEDS: Simethicone 80 MG TAB.CHEW PO (11:09)
[2022-09-09 11:16] LABS: Glucose, Whole Blood 260 mg/dL (60-115)
[2022-09-09 11:23] LABS: Vancomycin Random 12.9 mcg/mL (15-20)
[2022-09-09] MEDS: ondansetron HCL 4 MG/2 ML VIAL IVPUSH (11:23)
[2022-09-09] MEDS: Enoxaparin Sodium 40 MG/0.4 ML SYRINGE SUBCUT (11:43)
--- NOTE | 2022-09-09 11:51 | HE.PHANOTE ---
VANCO DOSING BASED ON SCR AND TROUGH OF 12.9 DOSE CONTINUED AT 1000 Q 12. NEXT TROUGH 09/10 @ 1100
--- NOTE | 2022-09-09 12:05 | PM.DS ---
DS: Providers Provider Date of Service: 09/09/22 Date of admission: 09/06/22 01:35 Primary care physician: Ricardo Breen MD Consults: 09/05/22 22:52 BHN [Consult to Crisis] Stat Reason for consultation: mdd 09/06/22 01:34 Consult to Infectious Diseases Routine Consulting Provider: Paola Martinez Reason for consultation: allergic to many abx Has provider been notified: No 09/07/22 17:23 Consult to Urology Routine Consulting Provider: Ceferino Hayes Reason for consultation: recurrent UTIs w sepsis DS: Diagnosis Discharge Diagnosis (1) Acute UTI: Status: Acute (2) Allergy to multiple antibiotics: Status: Acute DS: Summary Hospital Course Hospital Course: Admission note HPI ?77-year-old female with past medical history of recurrent UTI, depression, history of breast cancer, hyperlipidemia, diabetes, CLL, history of CVA, presents to the hospital with complaints of? increased lethargy and fatigue.? patient's son 2 days ago, and family are concerned about her.? Patient was started on p.o. antibiotics as well by Dr. Hayes urologist? after urine showed positive results. ? given patient's increased lethargy and her history of allergies to many antibiotics patient will be admitted for IV antibiotics for treatment of UTI ?patient is slightly confused, denies any chest pain, no abdominal pain nausea or vomiting, no diarrhea constipation, reports urinary? frequency, no lower extremity edema. No fever or chills.? ?On arrival to the ED patient hemodynamically stable with slightly elevated blood pressure Labs are significant for? WBC count of 16.4, hemoglobin of 11.7, hematocrit 35.5, BUN of 19, creatinine of 1.2 which is her baseline, UA positive for leukocyte Estrace and WBC Hospital course The patient was admitted to the hospital for evaluation Of lethargy. Found to have acute urinary tract infection post suprapubic tube change and office cystoscopy on 09/04/2022. Urine culture growing Enterococcus faecalis and another GNR which still pending while blood cultures were negative. A CT scan of the abdomen and pelvis was negative for any acute findings. Evaluated by Infectious Disease specialist who suggested amoxicillin for total of 14 days of antibiotics. Patient has significant allergy to amoxicillin and does not feel comfortable taking it so with agreed on going back home on nitrofurantoin with a plan to follow-up with Urology as outpatient. To consider different prophylactic antibiotic upon discussing with urology. Start Macrobid 100 mg 4 times a day for 10 more days Discuss Macrobid 100 mg daily for UTI prophylaxis with your PCP as you are already on fosfomycin for prophylaxis Time Spent with Patient Time attestation: Total time managing care of this patient today ____ minutes. Discharge coordination time: Greater than 30 minutes Quality: Safe Use of Opioids Does Pt have an Active Cancer Diagnosis on the Problem List?: No Quality: Stroke Does the patient have a stroke diagnosis?: No Physical Exam Vital Signs: Vital Signs: Last Vital Signs Temp 97 F 09/09/22 07:11 Pulse 69 09/09/22 07:11 Resp 18 09/09/22 07:11 BP 172/72 H 09/09/22 07:11 Pulse Ox 93 09/09/22 07:11 O2 Del Method 09/09/22 07:11 BMI result Body Mass Index 36.6 Const: Other: Constitutional : Awake, interactive, not in distress Neck : Normal inspection, Supple Cardiovascular : RRR, no JVP, no lower extremity edema Respiratory : good bilateral air entry, no crackles, wheezes or rhonchi Gastrointestinal: soft, lax, Normal bowel sounds, Non tender Skin : Warm, Dry Neurological : Alert & oriented x3, No focal deficit , CN 2-12 within normal DS: Data Data Completed and Pending Labs on day of discharge: Laboratory Results - last 24 hr 09/08/22 09/08/22 09/08/22 05:24 15:34 20:00 Creatinine Estim Creat Clear Calc Estimated GFR POC Glucose 287 H 293 H Estimat Average Glucose 146 Hemoglobin A1c % 6.7 Random Vancomycin 09/09/22 09/09/22 09/09/22 05:40 07:09 10:50 Creatinine 1.03 Estim Creat Clear Calc 52.4 Estimated GFR 52 POC Glucose 193 H Estimat Average Glucose Hemoglobin A1c % Random Vancomycin 12.9 L 09/09/22 10:57 Creatinine Estim Creat Clear Calc Estimated GFR POC Glucose 260 H Estimat Average Glucose Hemoglobin A1c % Random Vancomycin Preliminary micro results at discharge 09/05/22 23:08 Urine Culture - Preliminary Urine clean catch - Urine huitron top Enterococcus faecalis Gram negative elvira 09/07/22 17:55 Blood Culture - Preliminary Blood - Venous No growth after 24 hours. 09/07/22 17:56 Blood Culture - Preliminary Blood - Venous No growth after 24 hours. 09/05/22 23:44 Blood Culture - Preliminary Blood - Venous No growth after 48 hours. 09/05/22 23:44 Blood Culture - Preliminary Blood - Venous No growth after [address] scan - abdomen: Radiologist's impression: ITS Impressions Abdomen/Pelvis CT 09/08/22 08:27 IMPRESSION: No evidence of ileus or obstruction. Diverticular disease without definite evidence of acute diverticulitis. Small amount of free fluid about the pelvis. No evidence of obstructive uropathy. 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 Stable left adrenal gland nodule. Adherent hyperechoic region wall of the gallbladder for which follow-up with ultrasound would be of help in determining stability. Prominent atherosclerotic disease. Fleischner guidelines were followed. Discharge Plan Discharge Anticipated Discharge Date/Time: 09/09/22 12:02 Patient Disposition: Home, Self-Care Discharge Diagnosis: Urinary tract infection Referrals: Ricardo Breen MD [Primary Care Provider] - 1 Week Discharge Medications: New nitrofurantoin macrocrystal 100 mg capsule 100 mg PO QID 10 Days Qty: 40 0RF Rx Instructions: must administer with a meal/food Continued potassium citrate 10 mEq (1,080 mg) tablet extended release 20 meq PO BID 30 Days Qty: 120 1RF (DME) syringe with needle [BD Luer-Humphrey Syringe] 3 mL 22 x 1 1/2 syringe See Rx Instructions .ROUTE .MEDSUPPLY Qty: 20 0RF Rx Instructions: As directed famotidine 40 mg tablet 40 mg PO BEDTIME Qty: 90 1RF ondansetron HCl [Zofran] 4 mg tablet 4 mg PO Q8H PRN (Reason: Nausea) 4RF ferrous sulfate [iron] 325 mg (65 mg iron) Tablet 325 mg PO DAILY Qty: 120 6RF ascorbic acid (vitamin C) [Vitamin C] 500 mg Tablet 500 mg PO BID Qty: 120 4RF furosemide 20 mg tablet 40 mg PO QAM fosfomycin tromethamine 3 gram packet 1 packet PO QWEEK Rx Instructions: 1 packet orally per week for 12 weeks; Imbruvica 420 mg Tablet 420 mg PO DAILY spironolactone 25 mg tablet 25 mg PO DAILY duloxetine 60 mg capsule,delayed release(DR/EC) 60 mg PO DAILY cyclobenzaprine 5 mg tablet 5 mg PO BEDTIME PRN (Reason: Insomnia/Muscle spasms) citalopram 20 mg tablet 20 mg PO DAILY metformin 1,000 mg tablet 1,000 mg PO BID carvedilol 25 mg tablet 25 mg PO BID amlodipine 10 mg tablet 10 mg PO DAILY aspirin [Enteric Coated Aspirin] 81 mg tablet,delayed release (DR/EC) 81 mg PO DAILY Qty: 90 4RF atorvastatin 80 mg tablet 80 mg PO QPM Qty: 90 4RF pantoprazole 40 mg tablet,delayed release (DR/EC) 40 mg PO DAILY Qty: 90 4RF sennosides [Natural Senna Laxative] 8.6 mg tablet 17.2 mg PO BEDTIME Qty: 180 3RF Januvia 100 mg tablet 100 mg PO QAM pregabalin 150 mg capsule 150 mg PO BID sulindac 150 mg tablet 150 mg PO BID hydralazine 25 mg tablet 25 mg PO TID (DME) Accu-Chek Guide test strips Strip See Rx Instructions .ROUTE DAILY Qty: 10 Rx Instructions: As directed Discharge Orders: Discharge Order (Routine); Ordered 09/09/22 Ordered By: Leonardo Merritt Diet: Advance to usual diet Activity on Discharge: As tolerated Stand Alone Forms: Patient Portal Discharge page Care Plan Goals: Read below Health Concerns: Read below Plan of Treatment: Read below Assessment: You were admitted to the hospital for evaluation of lethargy and confusion found to have acute urine infection with urine culture growing 2 different bacteria is treated with IV antibiotics of vancomycin and ceftriaxone as you were evaluated by urology team who did not feel the need for any intervention. Start Macrobid 100 mg 4 times a day for 10 more days Discuss Macrobid 100 mg daily for UTI prophylaxis with your PCP as you are already on fosfomycin for prophylaxis
--- NOTE | 2022-09-09 12:45 | MHC.CM.PN ---
PT TO DC HOME TODAY WITH NO SERVICES FAMILY TO TRANSPORT
== END 2022-09-09 13:48 | disposition home or self-care (01) | DRG 862 ==
LOC: HO.ED 09-06 00:31 → HO.EDOVER 09-06 01:47 → HO.S3 09-07 11:23
PROVIDERS: Hospitalist; Admitting Provider Internal Medicine; Emergency Provider Emergency Medicine; PCP Family Medicine; Visit Provider Student in an Organized Health Care Education/Training Program
DX: T81.40XA Infection following a procedure, unspecified, initial encounter (principal); G92.8 Other toxic encephalopathy; N39.0 Urinary tract infection, site not specified; C91.10 Chronic lymphocytic leukemia of B-cell type not having achieved remission; E87.1 Hypo-osmolality and hyponatremia; Y84.9 Medical procedure, unspecified as the cause of abnormal reaction of the patient, or of later complication, without mention of misadventure at the time of the procedure; E78.00 Pure hypercholesterolemia, unspecified; I10 Essential (primary) hypertension; E11.65 Type 2 diabetes mellitus with hyperglycemia; E86.0 Dehydration; F32.A Depression, unspecified; E66.9 Obesity, unspecified; B95.2 Enterococcus as the cause of diseases classified elsewhere; Z68.36 Body mass index [BMI] 36.0-36.9, adult; Z20.822 Contact with and (suspected) exposure to COVID-19; Z85.3 Personal history of malignant neoplasm of breast; Z86.73 Personal history of transient ischemic attack (TIA), and cerebral infarction without residual deficits; Z96.0 Presence of urogenital implants; Z88.0 Allergy status to penicillin; Z88.1 Allergy status to other antibiotic agents; Z88.8 Allergy status to other drugs, medicaments and biological substances; Z91.040 Latex allergy status; Z79.82 Long term (current) use of aspirin; Z79.84 Long term (current) use of oral hypoglycemic drugs; Z79.899 Other long term (current) drug therapy
CPT/HCPCS: 36415; 52000; 74176; 80048; 80202; 81001; 81003; 82565; 82947; 83036; 83605; 85025; 85027; 87040; 87086; 87088; 87186; 87635; 99212; 99285; J0696; J1650; J2405; J3370

== ENCOUNTER → 2022-09-14 07:26 | Outpatient (BNVA) | payer MEDICARE, OTHER, SELFPAY | PROVIDERS: PCP Family Medicine; Visit Provider Surgery Vascular Surgery | DX: I83.12 Varicose veins of left lower extremity with inflammation (principal) | CPT/HCPCS: 36482 ==

== ENCOUNTER 2022-09-14 13:18 | Outpatient (REF) | payer MEDICARE, OTHER, SELFPAY | END 2022-09-14 13:19 | disposition home or self-care (01) | LOC: HO.LNP 13:18 | PROVIDERS: Visit Provider Urology | DX: R33.9 Retention of urine, unspecified (principal) | CPT/HCPCS: 87086 ==

== ENCOUNTER 2022-09-17 16:22 | Outpatient (REF) | payer MEDICARE, OTHER, SELFPAY ==
--- NOTE | ~2022-09-17 | US_ITS ---
EXAMINATION: TRIPLEX SCANNING OF LEFT LOWER EXTREMITY; SUPERFICIAL ULTRASOUND WITH DOPPLER OF LEFT LOWER EXTREMITY CLINICAL INFORMATION: Status post Venaseal of the left great saphenous vein Ambulatory phlebectomy performed: No COMPARISON: preprocedure studies. TECHNIQUE: Color flow triplex imaging and compression Doppler were performed as well as superficial ultrasound with Doppler. FINDINGS: LEFT LOWER EXTREMITY DEEP VENOUS SYSTEM: Respiratory variation, normal compression and augmented flow are noted throughout the lower extremity. The visualized common femoral vein, femoral vein, profunda femoral vein, popliteal vein and the calf veins show no evidence of deep venous thrombosis. There is no evidence of Delaney's cyst. SUPERFICIAL VENOUS SYSTEM: The great saphenous vein is occluded from the access site to just before the saphenofemoral junction. There is no extension of thrombus into the deep system. US/US venous duplex LE LT IMPRESSION: No evidence of DVT.
== END 2022-09-17 16:23 | disposition home or self-care (01) ==
LOC: HO.US 16:22
PROVIDERS: PCP Family Medicine; Visit Provider Surgery Vascular Surgery
DX: M79.605 Pain in left leg (principal)
CPT/HCPCS: 93971

== ENCOUNTER → 2022-09-19 11:56 | Outpatient (BNVA) | payer MEDICARE, OTHER, SELFPAY | PROVIDERS: PCP Family Medicine; Visit Provider Obstetrics & Gynecology | DX: M85.80 Other specified disorders of bone density and structure, unspecified site (principal) | CPT/HCPCS: 99212 ==

== ENCOUNTER → 2022-10-04 11:09 | Outpatient (BNVA) | payer MEDICARE, OTHER, SELFPAY | PROVIDERS: PCP Family Medicine; Visit Provider Surgery Vascular Surgery | DX: I83.12 Varicose veins of left lower extremity with inflammation (principal) | CPT/HCPCS: 99212 ==

== ENCOUNTER 2022-10-11 09:00 | Outpatient (REF) | payer MEDICARE, OTHER, SELFPAY ==
[2022-10-11 10:23] LABS: Glucose Fasting 217 mg/dL (60-99)
[2022-10-11 10:40] LABS: Estimated Average Glucose 171 mg/dL; Hemoglobin A1c % 7.6 %
== END 2022-10-11 09:01 | disposition home or self-care (01) ==
LOC: HO.LAB 09:00
PROVIDERS: PCP Family Medicine; Visit Provider Family Medicine
DX: E11.9 Type 2 diabetes mellitus without complications (principal)
CPT/HCPCS: 36415; 82947; 83036

== ENCOUNTER 2022-10-19 12:52 | Outpatient (REF) | payer MEDICARE, OTHER, SELFPAY | END 2022-10-19 12:53 | disposition home or self-care (01) | LOC: HO.LNP 12:52 | PROVIDERS: Visit Provider Urology | DX: R39.9 Unspecified symptoms and signs involving the genitourinary system (principal) | CPT/HCPCS: 87086 ==

== ENCOUNTER 2022-10-29 16:55 | Inpatient (IN) | payer MEDICARE, OTHER, SELFPAY ==
--- NOTE | ~2022-10-29 | XR_ITS ---
EXAMINATION: XR CHEST CLINICAL INFORMATION: Hypoxia with altered mental status COMPARISON: 02/12/2022 TECHNIQUE: Frontal view of the chest was obtained. FINDINGS: An seen is an elevated right hemidiaphragm. Heart size within normal limits. No effusions, infiltrates or lung masses are seen. Degenerative changes are seen in both shoulders and the left AC joint. There has been surgical resection of the distal right clavicle. XR/XR chest 1V IMPRESSION: No acute intrathoracic disease. Elevated right hemidiaphragm.
--- NOTE | ~2022-10-29 | CT_ITS ---
EXAMINATION: CT ABDOMEN AND PELVIS WITHOUT CONTRAST CLINICAL INFORMATION: Hematuria COMPARISON: Multiple prior exams. Most recent CT abdomen pelvis 09/08/2022 TECHNIQUE: Multidetector volumetric imaging was performed from the superior aspect of the liver through the pubic symphysis. Sagittal and coronal reformatted images were obtained on the technologist's workstation. This CT examination was performed using dose optimization techniques as appropriate, variously including the following: *Automated exposure control *Adjustment of mA and/or kV according to patient size (this includes techniques or standardized protocols for targeted exams where dose is matched to indication/reason for exam; i.e. extremities or head) *Use of iterative reconstruction technique DLP: 726 mGy-cm FINDINGS: LUNG BASES: Heavy coronary artery calcification. Heart size normal. No pericardial effusion. Normal aeration of lung bases. LIVER, GALLBLADDER, AND BILIARY TREE: The liver is normal in size, shape, and attenuation. No focal hepatic lesion or biliary ductal dilatation is present. The gallbladder is unremarkable with no evidence of radiopaque gallstones, gallbladder wall thickening, or obvious pericholecystic inflammatory changes. PANCREAS: Unremarkable. SPLEEN: Unremarkable. ADRENAL GLANDS: Stable left adrenal gland nodule measuring 2.4 cm. This is not changed since CAT scan 05/18/2014 is consistent with benign nodule. No further follow-up imaging recommended. Right adrenal gland is normal. KIDNEYS AND URETERS: There is fullness of the extrarenal pelvis of both kidneys but no calyceal dilatation or hydroureter. There is no renal or ureteral calculus. There is a partially calcified exophytic lesion at the lower pole left kidney measuring 1.2 cm. This is unchanged since CAT scan 09/08/2022. 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 On the CAT scan of 05/18/2014 there was a large left kidney perinephric hematoma. BLADDER: Suprapubic Henao catheter in place. Bladder is empty. GASTROINTESTINAL TRACT: There are numerous diverticula throughout the colon. There is no diverticulitis. There is no bowel wall thickening /edema. There is no bowel obstruction. There is a moderate volume of stool in the colon. The appendix is nonvisualized . The small bowel loops are unremarkable. The stomach is normal. There is no hiatal hernia. ABDOMINAL WALL: No significant hernia is appreciated. LYMPH NODES: Normal. VASCULAR: Vascular calcifications throughout the abdomen and the pelvis. No aneurysm is present. PELVIC VISCERA: Uterus is absent. No adnexal abnormality. OSSEOUS STRUCTURES: Advanced multilevel degenerative spondylosis spine. S-shaped scoliosis of spine. 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 No acute abnormality CT scan abdomen pelvis. 2. Suprapubic Henao catheter in place. 3. Diverticulosis of colon. No acute abnormality of the bowel. 4. There is a partially calcified exophytic lesion at the lower pole left kidney measuring 1.2 cm. This is stable since prior studies. 5. Stable left adrenal nodule. No further follow-up imaging recommended. Fleischner guidelines were followed.
[2022-10-29 17:09] VITALS: BP 170/90; PULSE 70; O2SAT 96
--- NOTE | 2022-10-29 17:15 | MHC.EDTECH ---
pt arrived via [facility] ,pt was change into hospital attire ,vitals sign taken , lab drawn ,including blood culture ,lactic acid and covid swab ,all sent to lab ,pt at bedside .
[2022-10-29 17:19] VITALS: BP 178/80; PULSE 77; RESP 20; TEMP 37; O2SAT 94; BMI 34.1
[2022-10-29 17:56] VITALS: BP 158/63; PULSE 73; RESP 16; TEMP 37.9; O2SAT 95
[2022-10-29 18:05] LABS: MANUAL DIFF FLAG NO
[2022-10-29 18:06] LABS: Basophils Absolute Auto 0.1 X10*3/uL (0.0-0.2); Basophils Percent Auto 0.4 % (0-2); Hematocrit 39.3 % (37.0-47.0); Imm Gran Abs Auto 0.25 X10*3/uL (0.00-0.03); Lymphocytes Absolute Auto 0.7 X10*3/uL (1.2-4.9); Lymphocytes Percent Auto 5.9 % (20-40); Mean Corpuscular HGB Conc 33.1 g/dl (31.0-35.0); Mean Corpuscular Hemoglobin 29.3 pg (27.0-33.0); Mean Corpuscular Volume 88.7 fL (80.0-98.0); Mean Platelet Volume 12.2 fL (9.4-12.3); Monocytes Absolute Auto 1.2 X10*3/uL (0.1-1.2); Monocytes Percent Auto 9.8 % (2-11); Neutrophils Absolute Auto 10.2 x10*3/uL (2.0-8.3); Neutrophils Percent Auto 81.9 % (45-73); Platelet Count 121 X10*3/uL (160-400); Red Blood Count 4.43 X10*6/uL (4.20-5.50); Red Cell Distribution Width 13.2 % (11.0-16.0); White Blood Count 12.5 X10*3/uL (4.8-10.8)
--- NOTE | 2022-10-29 18:09 | ED.FEMALEGU ---
HPI - Female Genitourinary General Chief complaint: Urogenital-Female Stated complaint: uti Time Seen by Provider: 10/29/22 17:13 Source: patient Mode of arrival: ambulatory Limitations: other (Poor historian) History of Present Illness HPI Narrative: 77-year-old female with history of nephrolithiasis, hypertension, chronic UTIs, breast cancer, hyperlipidemia, CAD, presents via EMS for UTI symptoms of abdominal pain, blood in the urine, fatigue, malaise, weakness. Patient has a suprapubic catheter in place of 1 year. Patient states that she is currently at a 5/10 pain. Patient also states that she is constipated and has not passed a stool in 3 days due to not eating because she is in pain. Patient states she is having blood in urine for 5 days. According to has been patient is extremely weak, fatigued, not acting like herself. Patient is not on any blood thinners and takes daily nitrofurantoin. Patient denies fever, chest pain, shortness of breath, back pain, flank pain, chills, night sweats. Related Data Home Medications Medication Instructions Recorded Confirmed citalopram 20 mg tablet 20 mg PO DAILY 07/21/20 09/06/22 cyclobenzaprine 5 mg tablet 5 mg PO BEDTIME PRN 07/21/20 09/06/22 Insomnia/Muscle spasms duloxetine 60 mg capsule,delayed 60 mg PO DAILY 07/21/20 09/06/22 release spironolactone 25 mg tablet 25 mg PO DAILY 07/21/20 09/06/22 amlodipine 10 mg tablet 10 mg PO DAILY 03/23/21 09/06/22 metformin 1,000 mg tablet 1,000 mg PO BID 04/19/21 09/06/22 carvedilol 25 mg tablet 25 mg PO BID 05/31/21 09/06/22 pregabalin 150 mg capsule 150 mg PO BID 07/27/21 09/06/22 sulindac 150 mg tablet 150 mg PO BID 07/27/21 09/06/22 sitagliptin phosphate 100 mg 100 mg PO QAM 08/21/22 09/06/22 tablet (Januvia) furosemide 20 mg tablet 40 mg PO QAM 08/27/22 09/06/22 blood sugar diagnostic (Accu-Chek #10 ea 09/04/22 Guide test strips) hydralazine 25 mg tablet 25 mg PO TID 09/04/22 09/06/22 fosfomycin tromethamine 3 gram 1 packet PO QWEEK UTI suppression 09/06/22 09/06/22 oral packet ibrutinib 420 mg tablet (Imbruvica) 420 mg PO DAILY 09/07/22 09/07/22 Previous Rx's Medication Instructions Recorded aspirin 81 mg tablet,delayed 81 mg PO DAILY #90 tabs 07/10/21 release (Enteric Coated Aspirin) ferrous sulfate 325 mg (65 mg 325 mg PO DAILY #120 tabs 08/18/21 iron) tablet (iron) potassium citrate 10 mEq (1,080 20 meq PO BID 30 days #120 tabs 12/27/21 mg) tablet,extended release syringe with needle 3 mL 22 x 1 #20 ea 04/24/2209/10 (BD Luer-Humphrey Syringe) famotidine 40 mg tablet 40 mg PO BEDTIME #90 tabs 05/29/22 pantoprazole 40 mg tablet,delayed 40 mg PO DAILY #90 tabs 08/14/22 release sennosides 8.6 mg tablet (Natural 17.2 mg PO BEDTIME constipation 08/14/22 Senna Laxative) #180 tabs ascorbic acid (vitamin C) 500 mg 500 mg PO BID #120 tabs 08/17/22 tablet (Vitamin C) ondansetron HCl 4 mg tablet 4 mg PO Q8H PRN Nausea 08/29/22 (Zofran) nitrofurantoin macrocrystal 100 mg 100 mg PO QID 10 days #40 caps 09/09/22 capsule ibrutinib 420 mg tablet (Imbruvica) 420 mg PO DAILY #90 tabs 09/13/22 atorvastatin 80 mg tablet 80 mg PO QPM #90 tabs 09/28/22 nitrofurantoin 100 mg PO BID UTI 10 days #20 caps 10/22/22 monohydrate/macrocrystals 100 mg capsule (Macrobid) solifenacin 5 mg tablet (Vesicare) 5 mg PO DAILY 5 days #5 tabs 10/25/22 Allergies Allergy/AdvReac Type Severity Reaction Status Date / Time amoxicillin [AMOXICILLIN] Allergy Severe stroke, Verified 09/19/22 12:02 blood clots ciprofloxacin [From CIPRO] Allergy Severe ANAPHYLAXIS Verified 09/19/22 12:02 Iodinated Contrast Media Allergy Severe HIVES Verified 09/19/22 12:02 [IV DYE, IODINE CONTAINING CONTRAST ] levofloxacin Allergy Severe Anaphylaxis Verified 09/19/22 12:02 liraglutide Allergy Severe Headache Verified 09/19/22 12:02 Penicillins Allergy Severe stroke, Verified 09/19/22 12:02 blood clots phenazopyridine [Pyridium] Allergy Severe Anaphylaxis Verified 09/19/22 12:02 FREYA Inhibitors Allergy Intermediate Cough Verified 09/19/22 12:02 ARB-Angiotensin Receptor Allergy Intermediate Cough Verified 09/19/22 12:02 Antagonist atorvastatin Allergy Intermediate Shortness Verified 09/19/22 12:02 of Breath cefpodoxime Allergy Intermediate Dizziness, Verified 09/19/22 12:02 nausea celecoxib [From CELEBREX] Allergy Intermediate HIVES Verified 09/19/22 12:02 doxazosin Allergy Intermediate Shortness Verified 09/19/22 12:02 of Breath fluticasone [Advair Diskus] Allergy Intermediate Anxiety Verified 09/19/22 12:02 gabapentin [From Neurontin] Allergy Intermediate Headache Verified 09/19/22 12:02 hydralazine Allergy Intermediate Shortness Verified 09/19/22 12:02 of Breath latex Allergy Intermediate Hives Verified 09/19/22 12:02 linezolid Allergy Intermediate Nausea and Verified 09/19/22 12:02 Vomiting meloxicam Allergy Intermediate Unknown Verified 09/19/22 12:02 salmeterol [Advair Diskus] Allergy Intermediate Anxiety Verified 09/19/22 12:02 Tetanus Vaccines and Toxoid Allergy Intermediate Swelling Verified 09/19/22 12:02 torsemide Allergy Intermediate Shortness Verified 09/19/22 12:02 of Breath cephalexin [Keflex] Allergy Mild Nausea Verified 09/19/22 12:02 Review of Systems Review of Systems: Constitutional : No Weight loss, No Fever, No Chills, + Fatigue, + Malaise ENT/Mouth : No sore throat, No Rhinorrhea Eyes: No Eye Pain, No Swelling, No Redness Cardiovascular : No Chest Pain, No SOB, No Dyspnea on Exertion, No Orthopnea, No Edema, No Palpitations Respiratory : No Cough, No Sputum, No Wheezing Gastrointestinal : + Nausea, No Vomiting, No Diarrhea, + Constipation, + abdominal Pain, No Hematochezia, No Melena Genitourinary : No Dysuria, No Urinary Frequency, + Hematuria, Musculoskeletal : No joint pain, No Myalgias, No Joint Swelling Skin : No Skin Lesions, No rash Neuro : No Weakness, No Numbness, No Dizziness, No Headache Psych : No Anxiety/Panic, No Depression All other systems reviewed and are negative Yes all other systems are reviewed and are negative [facility] Past Medical History Attestation statement: The following information was validated with the patient. Source: old records reviewed and nursing notes reviewed Medical History Allergy to multiple antibiotics Anemia Arthritis CLL (chronic lymphocytic leukemia) CLL (chronic lymphocytic leukemia) Depression Diabetes mellitus Fibromyalgia History of bilateral breast cancer History of blood transfusion History of CVA (cerebrovascular accident) History of numbness Hypercholesterolemia Hypertension PONV (postoperative nausea and vomiting) Seasonal allergies Self-catheterizes urinary bladder Sleep apnea Type 2 diabetes mellitus with unspecified complications Wears dentures Surgical History History of back surgery History of biopsy of bladder History of bladder repair surgery History of esophagogastroduodenoscopy (EGD) History of suprapubic catheter History of total hysterectomy Hx of colonoscopy S/P Botox injection S/P breast biopsy, right S/P left breast biopsy Family History Family History Mother Breast cancer Father Heart disease Father Lung cancer Mother Colon cancer Brother Pancreatic cancer Social History Social History Household Members: Significant Other Housing: House Are you a primary resident care technician to a significant other at home: No Do you presently have visiting nurse or other home services: No Alcohol intake: never Patient Tobacco Use Status: Never used Tobacco Smoked in Last 30 Days: No Use of substances other than those prescribed or required for medical reasons: No Advance Directives: Yes Advance Directives on File: Yes Advance Directives Date on File: 04/11/22 service: No Current occupational status: retired Physical Exam Vital Signs: Vital Signs: Last Vital Signs Temp 99.8 F 10/29/22 19:51 Pulse 77 10/29/22 19:51 Resp 16 10/29/22 19:51 BP 162/62 H 10/29/22 19:51 Pulse Ox 95 10/29/22 19:51 O2 Del Method 10/29/22 19:51 BMI result Body Mass Index 34.1 vss low-grade fever however Appearance: Alert.? Oriented X3.? No acute distress.? Head: Normocephalic, atraumatic, no step-offs or deformities Eyes: Pupils equal, round and reactive to light.? ENT: Pharynx normal.? Neck: Normal inspection.? Neck supple.? Negative Kernig and Brudzinski CVS: Normal heart rate and rhythm.? Pulses normal.? Respiratory: No respiratory distress.? Breath sounds normal.? Abdomen: Soft and diffuse abdominal tenderness with normoactive bowel sounds throughout..? Skin: Skin warm and dry.? Normal skin color.? Normal skin turgor.? Extremities: No lower extremity edema.? No calf ttp. Global weakness Back: No CVA tenderness bilaterally Neuro: Oriented X 3.? No motor deficit.? No sensory deficit. CN 2-12 intact Course Reevaluation(s) Reevaluation #1: Patient noted to have slight leukocytosis 12.5. Chemistry with no acute electrolyte abnormalities requiring intervention. Lactic acid normal. Patient's urine does have leukocytes and red blood cells, no bacteria noted however patient has grown abnormal urines in the past despite normal UA is. Concerns for UTI patient has suprapubic tenderness, dysuria. COVID negative. Chest x-ray unremarkable. CT of the abdomen and pelvis with no acute abnormality and CT scan of the abdomen or pelvis. There is a suprapubic Henao catheter in place. Diverticulosis however no signs of acute diverticulitis. Exophytic lesion at the lower pole of left kidney. Stable from previous study. I did discuss this case with hospitalist to admit for weakness, suspected urinary tract infection. Time: 20:52 Medications Administered Discontinued Medications Generic Name Dose Route Start Last Admin Trade Name Freq PRN Reason Stop Dose Admin Sodium Chloride 1,000 mls @ 999 mls/hr 10/29/22 18:15 10/29/22 20:27 Ns IV 10/29/22 19:15 Infused .Q1H1M JORGE Infusion Piperacillin Sod/Tazobactam 50 mls @ 100 mls/hr 10/29/22 18:21 10/29/22 20:27 Sod 3.375 gm/ Sodium Chloride IV 10/29/22 18:50 Infused ONCE ONE Infusion Ibuprofen 600 mg 10/29/22 18:37 10/29/22 18:55 Ibuprofen 600 Mg Tablet PO 10/29/22 18:38 600 mg ONCE ONE Administration Ondansetron HCl 4 mg 10/29/22 18:36 10/29/22 18:55 Ondansetron Hcl 4 Mg/2 Ml Vial IVPUSH 10/29/22 18:37 4 mg ONCE ONE Administration Medical Decision Making Medical Decision Making MDM Narrative: 77-year-old female with abdominal pain and suspected UTI also reporting weakness fatigue malaise times a few days worsening. History of complicated UTIs and has a suprapubic catheter in place. Physical exam significant for diffuse abdominal tenderness, no CVA tenderness Most likely UTI. Less likely nephrolithiasis, pyelonephritis. Differential Diagnosis Differential Diagnoses: The differential diagnosis associated with the presentation includes Most likely UTI. Less likely nephrolithiasis, pyelonephritis. Consult Healthcare Provider Management of the patient was discussed with: Hospitalist (Spoke to hospitalist for admission) Lab Data [facility] Lab Attestation statement: I reviewed the patient's lab results. 10/29/22 17:44 10/29/22 17:44 Labs: Lab Results 10/29/22 10/29/22 10/29/22 Range/Units 17:44 17:44 17:44 WBC 12.5 H (4.8-10.8) X10*3/uL RBC 4.43 (4.20-5.50) X10*6/uL Hgb 13.0 (12.0-16.0) g/dl Hct 39.3 (37.0-47.0) % MCV 88.7 (80.0-98.0) fL MCH 29.3 (27.0-33.0) pg MCHC 33.1 (31.0-35.0) g/dl RDW 13.2 (11.0-16.0) % Plt Count 121 L (160-400) X10*3/uL MPV 12.2 (9.4-12.3) fL Immature Gran % (Auto) 2.0 H (0.0-0.4) % Neut % (Auto) 81.9 H (45-73) % Lymph % (Auto) 5.9 L (20-40) % [place] % (Auto) 9.8 (2-11) % Eos % (Auto) 0.0 (0-4) % Baso % (Auto) 0.4 (0-2) % Lymph # (Auto) 0.7 L (1.2-4.9) X10*3/uL [place] # (Auto) 1.2 (0.1-1.2) X10*3/uL Eos # (Auto) 0.0 (0.0-0.4) X10*3/uL Baso # (Auto) 0.1 (0.0-0.2) X10*3/uL Abs Immat Gran (auto) 0.25 H (0.00-0.03) X10*3/uL Absolute Neuts (auto) 10.2 H (2.0-8.3) x10*3/uL Absolute Nucleated RBC 0.000 (0.0-0.012) X10*3/uL Nucleated RBC % (auto) 0.0 (0.0-0.2) /100WBC Sodium 133 L (135-145) mmol/L Potassium 4.1 (3.3-5.1) mmol/L Chloride 95 L (96-108) mmol/L Carbon Dioxide 25 (22-29) mmol/L Anion Gap 17 (12-20) BUN 19 H (9-16) mg/dL Creatinine 1.23 (0.5-1.4) mg/dL Estim Creat Clear Calc 43.9 Estimated GFR 42 Random Glucose 293 H (60-115) mg/dL Lactic Acid 1.4 (0.5-2.0) mmol/L Calcium 9.4 D (8.4-10.2) mg/dL Magnesium 1.9 (1.6-2.6) mg/dL Total Bilirubin 1.4 H (0.0-1.0) mg/dL AST 18 (5-31) U/L ALT 16 (0-31) U/L Alkaline Phosphatase 66 (39-117) U/L Total Protein 6.1 L (6.5-8.0) g/dL Albumin 4.1 (3.5-5.0) g/dL Urine Color Urine Appearance Urine pH (5.0-9.0) Ur Specific [place] (1.005-1.025) Urine Protein (Neg-Trace) mg/dL Urine Glucose (UA) (Negative) mg/dL Urine Ketones (Negative) mg/dL Urine Blood (Negative) Urine Nitrite (Negative) Ur Leukocyte Esterase (Negative) Urine RBC (0-2) /HPF Urine WBC (0-5) /HPF Ur Squamous Epith Cells (0-2) /HPF Urine Bacteria (None Seen) Hyaline Casts (0-2) /LPF COVID-19 (DONAVAN) (Negative) COVID-19 Clin Com 10/29/22 10/29/22 Range/Units 17:54 18:09 WBC (4.8-10.8) X10*3/uL RBC (4.20-5.50) X10*6/uL Hgb (12.0-16.0) g/dl Hct (37.0-47.0) % MCV (80.0-98.0) fL MCH (27.0-33.0) pg MCHC (31.0-35.0) g/dl RDW (11.0-16.0) % Plt Count (160-400) X10*3/uL MPV (9.4-12.3) fL Immature Gran % (Auto) (0.0-0.4) % Neut % (Auto) (45-73) % Lymph % (Auto) (20-40) % [place] % (Auto) (2-11) % Eos % (Auto) (0-4) % Baso % (Auto) (0-2) % Lymph # (Auto) (1.2-4.9) X10*3/uL [place] # (Auto) (0.1-1.2) X10*3/uL Eos # (Auto) (0.0-0.4) X10*3/uL Baso # (Auto) (0.0-0.2) X10*3/uL Abs Immat Gran (auto) (0.00-0.03) X10*3/uL Absolute Neuts (auto) (2.0-8.3) x10*3/uL Absolute Nucleated RBC (0.0-0.012) X10*3/uL Nucleated RBC % (auto) (0.0-0.2) /100WBC Sodium (135-145) mmol/L Potassium (3.3-5.1) mmol/L Chloride (96-108) mmol/L Carbon Dioxide (22-29) mmol/L Anion Gap (12-20) BUN (9-16) mg/dL Creatinine (0.5-1.4) mg/dL Estim Creat Clear Calc Estimated GFR Random Glucose (60-115) mg/dL Lactic Acid (0.5-2.0) mmol/L Calcium (8.4-10.2) mg/dL Magnesium (1.6-2.6) mg/dL Total Bilirubin (0.0-1.0) mg/dL AST (5-31) U/L ALT (0-31) U/L Alkaline Phosphatase (39-117) U/L Total Protein (6.5-8.0) g/dL Albumin (3.5-5.0) g/dL Urine Color Mono A Urine Appearance Turbid Urine pH 7.0 (5.0-9.0) Ur Specific [place] 1.015 (1.005-1.025) Urine Protein 100 (2+) H (Neg-Trace) mg/dL Urine Glucose (UA) 500 H (Negative) mg/dL Urine Ketones Trace (Negative) mg/dL Urine Blood Large (3+) H (Negative) Urine Nitrite Negative (Negative) Ur Leukocyte Esterase Large (3+) H (Negative) Urine RBC >20 H (0-2) /HPF Urine WBC >50 H (0-5) /HPF Ur Squamous Epith Cells 0-2 (0-2) /HPF Urine Bacteria None Seen (None Seen) Hyaline Casts 0-2 (0-2) /LPF COVID-19 (DONAVAN) Negative (Negative) COVID-19 Clin Com See Note Independent Interpretation I performed an independent interpretation of an: Plain X-Ray (Unremarkable) and CT Scan (No acute finding) Radiology Impression Discussion of test interpretation with radiology: I have reviewed the radiologist's reading. External Record Review External record reviewed: Inpatient record, Office record, Outpatient record, Prior outpatient labs, Prior outpatient radiology, Primary care record and Outside ED record Core Measures AMI core measures followed: Yes Measure exclusions: not indicated Critical Care Time Critical Care Time Critical Care Time: No Discharge Plan Discharge Clinical Impression: UTI symptoms, Suprapubic tenderness Patient Disposition: Admitted As Inpatient Prescriptions: No Action potassium citrate 10 mEq (1,080 mg) tablet extended release 20 meq PO BID 30 Days Qty: 120 1RF (DME) syringe with needle [BD Luer-Humphrey Syringe] 3 mL 22 x 1 1/2 syringe See Rx Instructions .ROUTE .MEDSUPPLY Qty: 20 0RF Rx Instructions: As directed famotidine 40 mg tablet 40 mg PO BEDTIME Qty: 90 1RF ondansetron HCl [Zofran] 4 mg tablet 4 mg PO Q8H PRN (Reason: Nausea) 4RF atorvastatin 80 mg tablet 80 mg PO QPM Qty: 90 3RF nitrofurantoin monohyd/m-cryst [Macrobid] 100 mg capsule 100 mg PO BID 10 Days Qty: 20 0RF Rx Instructions: must administer with a meal/food solifenacin [Vesicare] 5 mg tablet 5 mg PO DAILY 5 Days Qty: 5 0RF ferrous sulfate [iron] 325 mg (65 mg iron) Tablet 325 mg PO DAILY Qty: 120 6RF ascorbic acid (vitamin C) [Vitamin C] 500 mg Tablet 500 mg PO BID Qty: 120 4RF Imbruvica 420 mg Tablet 420 mg PO DAILY Qty: 90 4RF furosemide 20 mg tablet 40 mg PO QAM fosfomycin tromethamine 3 gram packet 1 packet PO QWEEK Rx Instructions: 1 packet orally per week for 12 weeks; Imbruvica 420 mg Tablet 420 mg PO DAILY nitrofurantoin macrocrystal 100 mg capsule 100 mg PO QID 10 Days Qty: 40 0RF Rx Instructions: must administer with a meal/food spironolactone 25 mg tablet 25 mg PO DAILY duloxetine 60 mg capsule,delayed release(DR/EC) 60 mg PO DAILY cyclobenzaprine 5 mg tablet 5 mg PO BEDTIME PRN (Reason: Insomnia/Muscle spasms) citalopram 20 mg tablet 20 mg PO DAILY metformin 1,000 mg tablet 1,000 mg PO BID carvedilol 25 mg tablet 25 mg PO BID amlodipine 10 mg tablet 10 mg PO DAILY aspirin [Enteric Coated Aspirin] 81 mg tablet,delayed release (DR/EC) 81 mg PO DAILY Qty: 90 4RF pantoprazole 40 mg tablet,delayed release (DR/EC) 40 mg PO DAILY Qty: 90 4RF sennosides [Natural Senna Laxative] 8.6 mg tablet 17.2 mg PO BEDTIME Qty: 180 3RF Januvia 100 mg tablet 100 mg PO QAM pregabalin 150 mg capsule 150 mg PO BID sulindac 150 mg tablet 150 mg PO BID hydralazine 25 mg tablet 25 mg PO TID (DME) Accu-Chek Guide test strips Strip See Rx Instructions .ROUTE DAILY Qty: 10 Rx Instructions: As directed
[2022-10-29 18:23] LABS: Lactic Acid 1.4 mmol/L (0.5-2.0)
[2022-10-29 18:25] LABS: Appearance Urine Turbid; Color Urine Orange; Glucose Urine UA 500 mg/dL (Negative); Leukocyte Esterase Urine Large (3+) (Negative); Nitrite Urine Negative (Negative); Specific Gravity - Urine 1.015 (1.005-1.025); UMIC TRIGGER UACC YES; Urine Blood Large (3+) (Negative); Urine Ketones Trace mg/dL (Negative); Urine Protein 100 (2+) mg/dL (Neg-Trace)
[2022-10-29 18:25] LABS: COVID-19 Test Negative (Negative); IDNOW Serial# 16C4AD1C
[2022-10-29 18:28] LABS: Alanine Aminotransferase 16 U/L (0-31); Albumin Level 4.1 g/dL (3.5-5.0); Alkaline Phosphatase 66 U/L (39-117); Anion Gap 17 (12-20); Aspartate Amino Transferase 18 U/L (5-31); Bilirubin Total 1.4 mg/dL (0.0-1.0); Blood Urea Nitrogen 19 mg/dL (9-16); Calcium 9.4 mg/dL (8.4-10.2); Carbon Dioxide 25 mmol/L (22-29); Chloride 95 mmol/L (96-108); Creatinine Clr Calc Pharmacy 43.9; Estimated Glomerular Filt Rate 42; Glucose Random 293 mg/dL (60-115); Magnesium 1.9 mg/dL (1.6-2.6); Potassium 4.1 mmol/L (3.3-5.1); Sodium 133 mmol/L (135-145); Total Protein 6.1 g/dL (6.5-8.0)
[2022-10-29 18:39] LABS: Bacteria Urine None Seen (None Seen); Hyaline Casts Urine 0-2 /LPF (0-2); RBC Urine >20 /HPF (0-2); Squamous Epithelial Cell Urine 0-2 /HPF (0-2); UACC Culture Trigger YES; WBC Urine >50 /HPF (0-5)
[2022-10-29] MEDS: 0.9 % Sodium Chloride 1,000 ML 999 ML IV (18:55)
[2022-10-29] MEDS: ondansetron HCL 4 MG/2 ML VIAL IVPUSH ×2 (18:55→22:18)
[2022-10-29] MEDS: Ibuprofen 600 MG TABLET PO (18:55)
[2022-10-29] MEDS: Piperacillin Sodium/Tazobactam 3.375 GM in 0.9 % Sodium Chloride 50 ML IV (18:55)
--- NOTE | 2022-10-29 19:02 | PC.NURSE ---
Pt is alert/oriented x 2. Appears weak, intermittent nausea. Suprapubic cath in place, drainage bag applied and urine obtained/sent. Stoma site cleaned, crusty and serosang exudate noted. Skin hot, pink and dry. admin dir as charted. at bedside.
[2022-10-29 19:51] VITALS: BP 162/62; PULSE 77; RESP 16; TEMP 37.7; O2SAT 95
[2022-10-29 21:04] LABS: B Type Natriuretic Peptide 15 pg/mL (<100)
[2022-10-29 21:15] VITALS: BP 147/62; PULSE 72; RESP 16; TEMP 36.9; O2SAT 95
--- NOTE | 2022-10-29 21:40 | P.HPHOSP_ITS ---
History of Present Illness Date of Service: 10/29/22 Chief Complaint: lethargy, weakness 77-year-old female with past medical history of recurrent UTI, history of breast cancer, chronic suprapubic catheter, HLD, diabetes, CLL, CVA, depression, sleep apnea on CPAP, HTN, presents to the hospital with complaints of lethargy, and urinary symptoms. Patient is alert oriented x3, reports that she has been very weak, having symptoms of UTI with urinary frequency, as well as burning on urination. Patient reports pain in the suprapubic region, reports that she has been having the symptoms for the past 1 week. feels feverish but no chills. Denies any chest pain, no shortness of breath, lower extremity edema. No numbness, no tingling. On arrival to the ED patient hemodynamically stable with no significant abnormal vitals Labs are significant for WBC count of 12.9, hemoglobin of 11.9, hematocrit 36.1, urine positive for leukocyte Estrace, WBC, patient has been admitted in the past for similar symptoms, with positive UA. Patient was recommended to be discharged on amoxicillin in the past, but patient reports history of stroke and blood clots to march cillin, therefore she was discharged on Bactrim. Abdomen pelvic CT shows no acute abnormality in the CT scan of the abdomen and pelvis, suprapubic Henao catheter in place Review of Systems Review of Systems: Yes all other systems are reviewed and are negative [facility] Medical History Allergy to multiple antibiotics Anemia Arthritis CLL (chronic lymphocytic leukemia) CLL (chronic lymphocytic leukemia) Depression Diabetes mellitus Fibromyalgia History of bilateral breast cancer History of blood transfusion History of CVA (cerebrovascular accident) History of numbness Hypercholesterolemia Hypertension PONV (postoperative nausea and vomiting) Seasonal allergies Self-catheterizes urinary bladder Sleep apnea Type 2 diabetes mellitus with unspecified complications Wears dentures Family History Mother Breast cancer Father Heart disease Father Lung cancer Mother Colon cancer Brother Pancreatic cancer Surgical History History of back surgery History of biopsy of bladder History of bladder repair surgery History of esophagogastroduodenoscopy (EGD) History of suprapubic catheter History of total hysterectomy Hx of colonoscopy S/P Botox injection S/P breast biopsy, right S/P left breast biopsy Social History Household Members: Significant Other Housing: House Are you a primary clinical manager home care to a significant other at home: No Do you presently have visiting nurse or other home services: No Alcohol intake: never Patient Tobacco Use Status: Never used Tobacco Smoked in Last 30 Days: No Use of substances other than those prescribed or required for medical reasons: No Advance Directives: Yes Advance Directives on File: Yes Advance Directives Date on File: 04/11/22 service: No Current occupational status: retired Meds Allergies Allergy/AdvReac Type Severity Reaction Status Date / Time amoxicillin [AMOXICILLIN] Allergy Severe stroke, Verified 09/19/22 12:02 blood clots ciprofloxacin [From CIPRO] Allergy Severe ANAPHYLAXIS Verified 09/19/22 12:02 Iodinated Contrast Media Allergy Severe HIVES Verified 09/19/22 12:02 [IV DYE, IODINE CONTAINING CONTRAST ] levofloxacin Allergy Severe Anaphylaxis Verified 09/19/22 12:02 liraglutide Allergy Severe Headache Verified 09/19/22 12:02 Penicillins Allergy Severe stroke, Verified 09/19/22 12:02 blood clots phenazopyridine [Pyridium] Allergy Severe Anaphylaxis Verified 09/19/22 12:02 FREYA Inhibitors Allergy Intermediate Cough Verified 09/19/22 12:02 ARB-Angiotensin Receptor Allergy Intermediate Cough Verified 09/19/22 12:02 Antagonist atorvastatin Allergy Intermediate Shortness Verified 09/19/22 12:02 of Breath cefpodoxime Allergy Intermediate Dizziness, Verified 09/19/22 12:02 nausea celecoxib [From CELEBREX] Allergy Intermediate HIVES Verified 09/19/22 12:02 doxazosin Allergy Intermediate Shortness Verified 09/19/22 12:02 of Breath fluticasone [Advair Diskus] Allergy Intermediate Anxiety Verified 09/19/22 12:02 gabapentin [From Neurontin] Allergy Intermediate Headache Verified 09/19/22 12:02 hydralazine Allergy Intermediate Shortness Verified 09/19/22 12:02 of Breath latex Allergy Intermediate Hives Verified 09/19/22 12:02 linezolid Allergy Intermediate Nausea and Verified 09/19/22 12:02 Vomiting meloxicam Allergy Intermediate Unknown Verified 09/19/22 12:02 salmeterol [Advair Diskus] Allergy Intermediate Anxiety Verified 09/19/22 12:02 Tetanus Vaccines and Toxoid Allergy Intermediate Swelling Verified 09/19/22 12:02 torsemide Allergy Intermediate Shortness Verified 09/19/22 12:02 of Breath cephalexin [Keflex] Allergy Mild Nausea Verified 09/19/22 12:02 Active Medications: Current Medications Acetaminophen (Acetaminophen 325 Mg Tablet) 650 mg PO Q6H PRN PRN Reason: Pain, Mild (Pain Scale 1-3) Docusate Sodium (Docusate Sodium 100 Mg Capsule) 100 mg PO DAILY PRN PRN Reason: Constipation Enoxaparin Sodium (Enoxaparin Sodium 40 Mg/0.4 Ml Syringe) 40 mg SUBCUT Q24H [facility] Vancomycin HCl (Vancomycin/Ns) 2,000 mg in 520 mls @ 260 mls/hr IV ONCE ONE Stop: 10/29/22 23:59 Ondansetron HCl (Ondansetron Hcl 4 Mg/2 Ml Vial) 4 mg IVPUSH Q8H PRN PRN Reason: Nausea and Vomiting Pharmacy Consult (Consult Rx Vancomycin Dosing) 1 each MISCELLANE DAILY PRN PRN Reason: Consult order Sodium Chloride (0.9 % Sodium Chloride Flush 3 Ml Syringe) 3 ml IVFLUSH [facility] Home Medications Medication Instructions Recorded Confirmed Last Taken Type citalopram 20 mg tablet 20 mg PO DAILY 07/21/20 10/29/22 04/16/22 History cyclobenzaprine 5 mg tablet 5 mg PO BEDTIME PRN 07/21/20 10/29/22 Unknown History Insomnia/Muscle spasms duloxetine 60 mg capsule,delayed 60 mg PO DAILY 07/21/20 10/29/22 04/16/22 History release spironolactone 25 mg tablet 25 mg PO DAILY 07/21/20 10/29/22 Unknown History amlodipine 10 mg tablet 10 mg PO DAILY 03/23/21 10/29/22 04/16/22 History metformin 1,000 mg tablet 1,000 mg PO BID 04/19/21 10/29/22 Unknown History carvedilol 25 mg tablet 25 mg PO BID 05/31/21 10/29/22 04/16/22 History pregabalin 150 mg capsule 150 mg PO BID 07/27/21 10/29/22 04/16/22 History sulindac 150 mg tablet 150 mg PO BID 07/27/21 10/29/22 04/15/22 History sitagliptin phosphate 100 mg 100 mg PO QAM 08/21/22 10/29/22 Unknown History tablet (Januvia) furosemide 20 mg tablet 40 mg PO QAM 08/27/22 10/29/22 Unknown History blood sugar diagnostic (Accu-Chek #10 ea 09/04/22 Unknown History Guide test strips) hydralazine 25 mg tablet 25 mg PO TID 09/04/22 10/29/22 Unknown History fosfomycin tromethamine 3 gram 1 packet PO QWEEK UTI suppression 09/06/22 09/06/22 Unknown History oral packet ibrutinib 420 mg tablet (Imbruvica) 420 mg PO DAILY 09/07/22 09/07/22 Unknown History lorazepam 0.5 mg tablet 1 tab PO Q8H PRN anxiety 10/30/22 10/30/22 Unknown History oxycodone 5 mg tablet 1 tab PO BID PRN pain 10/30/22 10/30/22 Unknown History Physical Exam Vital Signs and Narrative: Vital Signs: Last Vital Signs Temp 99.8 F 10/29/22 19:51 Pulse 77 10/29/22 19:51 Resp 16 10/29/22 19:51 BP 162/62 H 10/29/22 19:51 Pulse Ox 95 10/29/22 19:51 O2 Del Method 10/29/22 19:51 BMI result Body Mass Index 34.1 Const: General: cooperative and no acute distress Orientation/consciousness: patient oriented x3 Eyes: General: appearance normal, both eyes and all related structures Resp: Effort & Inspection: normal respiratory effort Auscultation: clear to auscultation bilaterally Cardio: Rate: regular rate Rhythm: regular rhythm GI: Palpation (GI): Soft to palpation Auscultation: normal bowel sounds : Other: suprapubic tenderness Skin: General skin exam: no rashes or lesions noted Neuro: General: patient oriented x3 Cognition (Neuro): normal cognition Extrem: General: Yes normal to inspection and Yes no pedal edema Results Labs 10/29/22 17:44 10/29/22 17:44 Labs: Laboratory Results - last 24 hr 10/29/22 10/29/22 10/29/22 17:44 17:44 17:44 MCV 88.7 MCH 29.3 MCHC 33.1 RDW 13.2 Plt Count 121 L MPV 12.2 Immature Gran % (Auto) 2.0 H Neut % (Auto) 81.9 H Lymph % (Auto) 5.9 L Price % (Auto) 9.8 Eos % (Auto) 0.0 Baso % (Auto) 0.4 Lymph # (Auto) 0.7 L Price # (Auto) 1.2 Eos # (Auto) 0.0 Baso # (Auto) 0.1 Abs Immat Gran (auto) 0.25 H Absolute Neuts (auto) 10.2 H Absolute Nucleated RBC 0.000 Nucleated RBC % (auto) 0.0 Anion Gap 17 Estim Creat Clear Calc 43.9 Estimated GFR 42 Random Glucose 293 H Lactic Acid 1.4 Calcium 9.4 D Magnesium 1.9 Total Bilirubin 1.4 H AST 18 ALT 16 Alkaline Phosphatase 66 B-Natriuretic Peptide Total Protein 6.1 L Albumin 4.1 Urine Color Urine Appearance Urine pH Ur Specific Sparks Urine Protein Urine Glucose (UA) Urine Ketones Urine Blood Urine Nitrite Ur Leukocyte Esterase Urine RBC Urine WBC Ur Squamous Epith Cells Urine Bacteria Hyaline Casts COVID-19 ([facility]) COVID-19 Clin Com 10/29/22 10/29/22 10/29/22 17:54 18:09 20:38 MCV MCH MCHC RDW Plt Count MPV Immature Gran % (Auto) Neut % (Auto) Lymph % (Auto) Price % (Auto) Eos % (Auto) Baso % (Auto) Lymph # (Auto) Price # (Auto) Eos # (Auto) Baso # (Auto) Abs Immat Gran (auto) Absolute Neuts (auto) Absolute Nucleated RBC Nucleated RBC % (auto) Anion Gap Estim Creat Clear Calc Estimated GFR Random Glucose Lactic Acid Calcium Magnesium Total Bilirubin AST ALT Alkaline Phosphatase B-Natriuretic Peptide 15 Total Protein Albumin Urine Color Pima A Urine Appearance Turbid Urine pH 7.0 Ur Specific Sparks 1.015 Urine Protein 100 (2+) H Urine Glucose (UA) 500 H Urine Ketones Trace Urine Blood Large (3+) H Urine Nitrite Negative Ur Leukocyte Esterase Large (3+) H Urine RBC >20 H Urine WBC >50 H Ur Squamous Epith Cells 0-2 Urine Bacteria None Seen Hyaline Casts 0-2 COVID-19 ([facility]) Negative COVID-19 Clin Com See Note Imaging Radiologist's Impressions: Impressions Abdomen/Pelvis CT 10/29/22 18:28 IMPRESSION: 1. No acute abnormality CT scan abdomen pelvis. 2. Suprapubic Henao catheter in place. 3. Diverticulosis of colon. No acute abnormality of the bowel. 4. There is a partially calcified exophytic lesion at the lower pole left kidney measuring 1.2 cm. This is stable since prior studies. 5. Stable left adrenal nodule. No further follow-up imaging recommended. Fleischner guidelines were followed. Chest X-Ray 10/29/22 19:12 IMPRESSION: No acute intrathoracic disease. Elevated right hemidiaphragm. Assessment and Plan (1) Suprapubic tenderness: Status: Acute (2) Complicated UTI (urinary tract infection): Status: Acute (3) Leukocytosis: Status: Acute Plan ?77-year-old female with multiple past medical history as well as multiple allergies to many antibiotics presents to the hospital with increased lethargy and urinary symptoms found to have acute UTI #? acute UTI - hx of Enterococcus faecalis -? UA positive, lethargy, leukocytosis -? has grown E coli as well as Enterococcus faecalis in the past with multiple resistance, - given complicated past medical history of UTIs as well as multiple medi cation allergies at this time will treat with vancomycin similar to previous admission - pending cultures # leukocytosis - likely secondary to above - follow CBC #? diabetes -? low-dose sliding scale insulin -? diabetic diet -? hold oral anti hypoglycemics #? hypertension -? stable -? continue home? antihypertensives ?DVT prophylaxis:? Lovenox ?given failed outpatient therapy, as well as multiple allergies to many antibiotics patient required minimum 2 night inpatient hospital stay for further management and monitoring Time Spent With Patient Time: Total time managing care of this patient today ____ minutes. Quality Stroke Does the patient have a stroke diagnosis?: No VTE Prior VTE?: No VTE Risk Level:: Medical - moderate - high VTE Device Contraindication: Treatment Not Indicated VTE Drug Contraindication: N/A - Med Ordered
--- NOTE | 2022-10-29 21:47 | PHA.PROG ---
Admission Date/Time: October 29, 2022 21:14 Indication: sepsis Weight in k.1 kg Adjusted body weight in Kg: [place] body weight in Kg: Obesity Dosing Indication % IBW: Serum Creatinine - Last 168 Hours 10/29/22 17:44 Creatinine 1.23 Estimated CrCl and GFR - Last 168 Hours 10/29/22 17:44 Estim Creat Clear Calc 43.9 Estimated GFR 42 Vancomycin Loading Dose: 2000mg x 1 Current Vancomycin Dosing Regimen: 750mg Q24H Vancomycin Monitoring using AUC goal of 400 - 600 range with trough as surrogate marker: 433 mg/L Date and Time for next Vancomycin Level to be drawn: 10/31/22 @1999 Pharmacist Comments on Vancomycin Plan: Obesity model being used; predicted trough of 13 mg/L Vancomycin dosing will take advantage of [employer] as a clinical decision support tool that uses Bayesian modeling to calculate individual patient's pharmacokinetic parameters and forecast the patient's drug concentration time course with the target goal AUC 24 range of 400 - 600 mg/L/hr.
[2022-10-29] MEDS: Enoxaparin Sodium 40 MG/0.4 ML SYRINGE SUBCUT (22:18)
[2022-10-29] MEDS: Acetaminophen 325 MG TABLET 650 MG PO (22:18)
--- NOTE | 2022-10-29 22:25 | PC.NURSE ---
patient medicated pet mar, given Tylenol po for headache. repositioned in bed and new sheets provided. supra pubic catheter drained 500ml urine, emptied. patient reporting hip pain in bed d/t patient needing L hip replacement. call [facility] within reach. will CTM.
[2022-10-29] MEDS: Morphine Sulfate 4 MG/ML CARTRIDGE IVPUSH (23:45)
[2022-10-29 23:47] VITALS: BP 135/61; PULSE 69; RESP 16; TEMP 37.1; O2SAT 98
--- NOTE | 2022-10-29 23:48 | MHC.EDTECH ---
0000 rounding done vitals sign taken ,pt was boosted up in bed ,warm blanket given .
[2022-10-30 00:50] VITALS: PULSE 86; RESP 16; O2SAT 94
--- NOTE | 2022-10-30 02:00 | MHC.EDTECH ---
0200 rounding done .pt awake ,but is resting quietly .
[2022-10-30 04:34] LABS: MANUAL DIFF FLAG NO
[2022-10-30 04:37] LABS: Basophils Absolute Auto 0.1 X10*3/uL (0.0-0.2); Basophils Percent Auto 0.5 % (0-2); Eosinophils Absolute Auto 0.2 X10*3/uL (0.0-0.4); Eosinophils Percent Auto 1.2 % (0-4); Hematocrit 36.1 % (37.0-47.0); Hemoglobin 11.9 g/dl (12.0-16.0); Imm Gran Abs Auto 0.23 X10*3/uL (0.00-0.03); Imm Gran Pct Auto 1.8 % (0.0-0.4); Lymphocytes Absolute Auto 0.9 X10*3/uL (1.2-4.9); Lymphocytes Percent Auto 7.1 % (20-40); Mean Corpuscular Hemoglobin 30.1 pg (27.0-33.0); Mean Corpuscular Volume 91.2 fL (80.0-98.0); Mean Platelet Volume 12.1 fL (9.4-12.3); Monocytes Absolute Auto 1.5 X10*3/uL (0.1-1.2); Monocytes Percent Auto 11.2 % (2-11); Neutrophils Absolute Auto 10.1 x10*3/uL (2.0-8.3); Neutrophils Percent Auto 78.2 % (45-73); Platelet Count 107 X10*3/uL (160-400); Red Blood Count 3.96 X10*6/uL (4.20-5.50); Red Cell Distribution Width 13.2 % (11.0-16.0); White Blood Count 12.9 X10*3/uL (4.8-10.8)
[2022-10-30 04:51] LABS: Anion Gap 14 (12-20); Blood Urea Nitrogen 17 mg/dL (9-16); Calcium 8.9 mg/dL (8.4-10.2); Carbon Dioxide 26 mmol/L (22-29); Chloride 100 mmol/L (96-108); Creatinine Clr Calc Pharmacy 50.9; Estimated Glomerular Filt Rate 50; Glucose Random 267 mg/dL (60-115); Potassium 4.2 mmol/L (3.3-5.1); Sodium 136 mmol/L (135-145)
[2022-10-30 05:12] VITALS: BP 180/72; PULSE 84; RESP 17; TEMP 37.6; O2SAT 93
[2022-10-30 07:34] LABS: Glucose, Whole Blood 229 mg/dL (60-115)
[2022-10-30] MEDS: 0.9 % Sodium Chloride Flush 3 ML SYRINGE IVFLUSH (07:38)
[2022-10-30] MEDS: Insulin Lispro 100 UNIT/ML 3 ML VIAL SUBCUT ×4 (07:42→20:49)
--- NOTE | 2022-10-30 08:51 | PHA.MEDREC ---
Pharmacy Consult ? Medication Reconciliation Pharmacy has completed the medication reconciliation. Pharmacy has reviewed med rec done by
[2022-10-30] MEDS: oxyCODONE HCl Immed Release 5 MG TABLET PO ×3 (10:05→20:59)
[2022-10-30] MEDS: Omeprazole 20 MG CAPSULE.DR PO (10:06)
[2022-10-30] MEDS: Aspirin Enteric Coated 81 MG TABLET.DR PO (10:06)
[2022-10-30] MEDS: hydrALAZINE HCl 25 MG TABLET PO ×3 (10:06→20:48)
[2022-10-30] MEDS: Escitalopram Oxalate 10 MG TABLET PO (10:06)
[2022-10-30] MEDS: amLODIPine Besylate 10 MG TABLET PO (10:06)
[2022-10-30] MEDS: LORazepam 0.5 MG TABLET PO (10:06)
[2022-10-30] MEDS: DULoxetine HCl 60 MG CAPSULE.DR PO (10:06)
[2022-10-30] MEDS: Pregabalin 150 MG CAPSULE PO ×2 (10:06→20:49)
[2022-10-30] MEDS: Acetaminophen 325 MG TABLET 650 MG PO ×2 (10:06→20:59)
[2022-10-30] MEDS: carvediloL 25 MG TABLET PO ×2 (10:06→20:48)
[2022-10-30] MEDS: Ascorbic Acid 500 MG TABLET PO ×2 (10:06→20:48)
[2022-10-30] MEDS: Spironolactone 25 MG TABLET PO (10:07)
[2022-10-30 10:36] VITALS: BP 165/65; PULSE 80; RESP 18; TEMP 36.4; O2SAT 95
--- NOTE | 2022-10-30 10:46 | MHC.CM.PN ---
PT REPORTS SHE LIVES WITH HER AND IS INDEPENDENT WITH CARE SHE USES A CANE AND HAS NO SERVICES PT IS COVID VAX COPY OF HCP REQUESTED PCP: ELLEN VELÁZQUEZ OBS NOTICE DELIVERED DC PLAN, HOME NO SERVICES TO TRANSPORT
--- NOTE | 2022-10-30 10:58 | HE.PHANOTE ---
RE: vanco Creatinine improved, changed dose to 1000mg Q24H with predicted AUC 513mg/L, trough 14.7. 750mg Q24H was predicting a subtherapeutic level. level still to be drawn 10/31
[2022-10-30] MEDS: Tolterodine Tartrate LA 4 MG CAP.ER.24H PO (11:11)
[2022-10-30 12:17] LABS: Glucose, Whole Blood 276 mg/dL (60-115)
[2022-10-30 15:21] VITALS: BP 147/65; PULSE 67; RESP 18; TEMP 36.5; O2SAT 93
--- NOTE | 2022-10-30 16:18 | P.PNIM_ITS ---
Subjective Subjective Date of Service: 10/30/22 Interval History: uti ,hip OA pain Review of Systems still has hip pain Denies any abdominal pain or nausea vomiting or fever. Physical Exam 2 Vital Signs: Vital Signs: Last Vital Signs Temp 97.7 F 10/30/22 15:21 Pulse 67 10/30/22 15:21 Resp 18 10/30/22 15:21 BP 147/65 H 10/30/22 15:21 Pulse Ox 93 10/30/22 15:21 O2 Del Method 10/30/22 15:21 BMI result Body Mass Index 34.1 Appearance: Alert.? Oriented X3.? not in distress.?. cvs: [id number], [id number] , no murmur res: clear to auscultation ,no rhonchii or wheezing abd: no rebound or guarding ,has suprapubid mild disconfort, bs present. ext pulses present , no cyanosis . neuro: axo3 , nonfocal. Objective Data Active Medications Acetaminophen (Acetaminophen 325 Mg Tablet) 650 mg PO Q6H PRN PRN Reason: Pain, Mild (Pain Scale 1-3) Last Admin: 10/30/22 10:06 Dose: 650 mg Documented By: EMMANUEL-DANIELLE Amlodipine Besylate (Amlodipine Besylate 10 Mg Tablet) 10 mg PO DAILY [facility] TO [facility]; Protocol Last Admin: 10/30/22 10:06 Dose: 10 mg Documented By: EMMANUEL-DANIELLE Ascorbic Acid (Ascorbic Acid 500 Mg Tablet) 500 mg PO BID [facility]ENDING S[facility] TO [facility] Last Admin: 10/30/22 10:06 Dose: 500 mg Documented By: EMMANUEL-DANIELLE Aspirin (Aspirin Enteric Coated 81 Mg Tablet.) 81 mg PO DAILY [facility] TO [facility] Last Admin: 10/30/22 10:06 Dose: 81 mg Documented By: EMMANUEL-DANIELLE Atorvastatin Calcium (Atorvastatin Calcium 80 Mg Tablet) 80 mg PO BEDTIME [facility]ENDING [facility] TO [facility] Carvedilol (Carvedilol 25 Mg Tablet) 25 mg PO BID [facility] TO [facility]; Protocol Last Admin: 10/30/22 10:06 Dose: 25 mg Documented By: EMMANUEL-DANIELLE Cyclobenzaprine HCl (Cyclobenzaprine Hcl 5 Mg Tablet) 5 mg PO BEDTIME PRN PRN Reason: Insomnia/Muscle spasms Dextrose (Dextrose 50 % 25 Gm/50 Ml Syringe) 25 gm IVPUSH Q15M PRN; Protocol PRN Reason: per Hypoglycemia Standing Ord. Docusate Sodium (Docusate Sodium 100 Mg Capsule) 100 mg PO DAILY PRN PRN Reason: Constipation Duloxetine HCl (Duloxetine Hcl 60 Mg Capsule.) 60 mg PO DAILY [facility] Last Admin: 10/30/22 10:06 Dose: 60 mg Documented By: EMMANUEL-DANIELLE Enoxaparin Sodium (Enoxaparin Sodium 40 Mg/0.4 Ml Syringe) 40 mg SUBCUT Q24H [facility] TO [facility] Last Admin: 10/29/22 22:18 Dose: 40 mg Documented By: CHAUNCEY Escitalopram Oxalate (Escitalopram Oxalate 10 Mg Tablet) 10 mg PO DAILY [facility] Last Admin: 10/30/22 10:06 Dose: 10 mg Documented By: EMMANUEL-DANIELLE Famotidine (Famotidine 20 Mg Tablet) 40 mg PO BEDTIME PENDING S[facility] TO [facility] Ferrous Sulfate (Ferrous Sulfate 324 Mg Tablet.) 324 mg PO DAILY [facility] TO [facility] Glucose (Glucose Gel 15 Gm Gel..Gram.) 15 gm PO Q15M PRN; Protocol PRN Reason: per Hypoglycemia Standing Ord. Hydralazine HCl (Hydralazine Hcl 25 Mg Tablet) 25 mg PO TID [facility]; Protocol Last Admin: 10/30/22 14:44 Dose: 25 mg Documented By: EMMANUEL-DANIELLE Vancomycin HCl 1,000 mg/ (Sodium Chloride) 270 mls @ 270 mls/hr IV Q24H [facility] Insulin Human Lispro (Insulin Lispro 100 Unit/Ml 3 Ml Vial) 0 unit SUBCUT QIDACHS PENDING SALE TO [facility]; Protocol Last Admin: 10/30/22 12:57 Dose: 6 unit Documented By: EMMANUEL-DANIELLE Lorazepam (Lorazepam 0.5 Mg Tablet) 0.5 mg PO Q8H PRN PRN Reason: anxiety Last Admin: 10/30/22 10:06 Dose: 0.5 mg Documented By: EMMANUEL-DANIELLE Non-Formulary Medication (Sulindac) 150 mg PO BID PENDING SALE TO [facility] Pt Own (Ibrutinib [ Imbruvica] 420 Mg Tablet) 420 mg PO DAILY PENDING [facility] TO [facility] Omeprazole (Omeprazole 20 Mg Capsule.) 20 mg PO DAILY [facility] Last Admin: 10/30/22 10:06 Dose: 20 mg Documented By: EMMANUEL-DANIELLE Ondansetron HCl (Ondansetron Hcl 4 Mg/2 Ml Vial) 4 mg IVPUSH Q8H PRN PRN Reason: Nausea and Vomiting Last Admin: 10/29/22 22:18 Dose: 4 mg Documented By: CHAUNCEY Oxycodone HCl (Oxycodone Hcl Immed Release 5 Mg Tablet) 5 mg PO BID PRN PRN Reason: Pain, Severe (Pain Scale 7-10) Last Admin: 10/30/22 10:05 Dose: 5 mg Documented By: PRISCILLA Pharmacy Consult (Consult Rx Vancomycin Dosing) 1 each MISCELLANE DAILY PRN PRN Reason: Consult order Pregabalin (Pregabalin 150 Mg Capsule) 150 mg PO BID PEND[facility] TO [facility] Last Admin: 10/30/22 10:06 Dose: 150 mg Documented By: PRISCILLA Senna (Sennosides 8.6 Mg Tablet) 17.2 mg PO BEDTIME PRN PRN Reason: CONSTIPATION Sitagliptin Phosphate (Sitagliptin Phosphate 100 Mg Tablet) 100 mg PO DAILY PEND[facility] TO [facility] Last Admin: 10/30/22 10:07 Dose: Not Given Documented By: PRISCILLA Non-Admin Reason: Patient Refused Sodium Chloride (0.9 % Sodium Chloride Flush 3 Ml Syringe) 3 ml IVFLUSH QSHIFT PENDING SALE TO [facility] Last Admin: 10/30/22 14:55 Dose: Not Given Documented By: PRISCILLA Non-Admin Reason: See Note Spironolactone (Spironolactone 25 Mg Tablet) 25 mg PO DAILY PENDING [facility] TO [facility]; Protocol Last Admin: 10/30/22 10:07 Dose: 25 mg Documented By: PRISCILLA Tolterodine Tartrate (Tolterodine Tartrate La 4 Mg Cap.Er.24h) 4 mg PO DAILY PEND[facility] Last Admin: 10/30/22 11:11 Dose: 4 mg Documented By: PRISCILLA Labs 10/30/22 04:17 10/30/22 04:17 Labs: Laboratory Results - last 24 hr 10/29/22 10/29/22 10/29/22 17:44 17:44 17:44 MCV 88.7 MCH 29.3 MCHC 33.1 RDW 13.2 Plt Count 121 L MPV 12.2 Immature Gran % (Auto) 2.0 H Neut % (Auto) 81.9 H Lymph % (Auto) 5.9 L Crawford % (Auto) 9.8 Eos % (Auto) 0.0 Baso % (Auto) 0.4 Lymph # (Auto) 0.7 L Crawford # (Auto) 1.2 Eos # (Auto) 0.0 Baso # (Auto) 0.1 Abs Immat Gran (auto) 0.25 H Absolute Neuts (auto) 10.2 H Absolute Nucleated RBC 0.000 Nucleated RBC % (auto) 0.0 Anion Gap 17 Estim Creat Clear Calc 43.9 Estimated GFR 42 POC Glucose Random Glucose 293 H Lactic Acid 1.4 Calcium 9.4 D Magnesium 1.9 Total Bilirubin 1.4 H AST 18 ALT 16 Alkaline Phosphatase 66 B-Natriuretic Peptide Total Protein 6.1 L Albumin 4.1 Urine Color Urine Appearance Urine pH Ur Specific [place] Urine Protein Urine Glucose (UA) Urine Ketones Urine Blood Urine Nitrite Ur Leukocyte Esterase Urine RBC Urine WBC Ur Squamous Epith Cells Urine Bacteria Hyaline Casts COVID-19 ([facility]) COVID-19 Clin Com 10/29/22 10/29/22 10/29/22 17:54 18:09 20:38 MCV MCH MCHC RDW Plt Count MPV Immature Gran % (Auto) Neut % (Auto) Lymph % (Auto) Crawford % (Auto) Eos % (Auto) Baso % (Auto) Lymph # (Auto) Crawford # (Auto) Eos # (Auto) Baso # (Auto) Abs Immat Gran (auto) Absolute Neuts (auto) Absolute Nucleated RBC Nucleated RBC % (auto) Anion Gap Estim Creat Clear Calc Estimated GFR POC Glucose Random Glucose Lactic Acid Calcium Magnesium Total Bilirubin AST ALT Alkaline Phosphatase B-Natriuretic Peptide 15 Total Protein Albumin Urine Color [place] A Urine Appearance Turbid Urine pH 7.0 Ur Specific [place] 1.015 Urine Protein 100 (2+) H Urine Glucose (UA) 500 H Urine Ketones Trace Urine Blood Large (3+) H Urine Nitrite Negative Ur Leukocyte Esterase Large (3+) H Urine RBC >20 H Urine WBC >50 H Ur Squamous Epith Cells 0-2 Urine Bacteria None Seen Hyaline Casts 0-2 COVID-19 ([facility]) Negative COVID-19 Clin Com See Note 10/30/22 10/30/22 10/30/22 04:17 04:17 07:27 MCV 91.2 MCH 30.1 MCHC 33.0 RDW 13.2 Plt Count 107 L MPV 12.1 Immature Gran % (Auto) 1.8 H Neut % (Auto) 78.2 H Lymph % (Auto) 7.1 L Crawford % (Auto) 11.2 H Eos % (Auto) 1.2 Baso % (Auto) 0.5 Lymph # (Auto) 0.9 L Crawford # (Auto) 1.5 H Eos # (Auto) 0.2 Baso # (Auto) 0.1 Abs Immat Gran (auto) 0.23 H Absolute Neuts (auto) 10.1 H Absolute Nucleated RBC 0.000 Nucleated RBC % (auto) 0.0 Anion Gap 14 Estim Creat Clear Calc 50.9 Estimated GFR 50 POC Glucose 229 H Random Glucose 267 H Lactic Acid Calcium 8.9 Magnesium Total Bilirubin AST ALT Alkaline Phosphatase B-Natriuretic Peptide Total Protein Albumin Urine Color Urine Appearance Urine pH Ur Specific [place] Urine Protein Urine Glucose (UA) Urine Ketones Urine Blood Urine Nitrite Ur Leukocyte Esterase Urine RBC Urine WBC Ur Squamous Epith Cells Urine Bacteria Hyaline Casts COVID-19 ([facility]) [employer] 10/30/22 12:13 MCV MCH MCHC RDW Plt Count MPV Immature Gran % (Auto) Neut % (Auto) Lymph % (Auto) [place] % (Auto) Eos % (Auto) Baso % (Auto) Lymph # (Auto) Crawford # (Auto) Eos # (Auto) Baso # (Auto) Abs Immat Gran (auto) Absolute Neuts (auto) Absolute Nucleated RBC Nucleated RBC % (auto) Anion Gap Estim Creat Clear Calc Estimated GFR POC Glucose 276 H Random Glucose Lactic Acid Calcium Magnesium Total Bilirubin AST ALT Alkaline Phosphatase B-Natriuretic Peptide Total Protein Albumin Urine Color Urine Appearance Urine pH Ur Specific [place] Urine Protein Urine Glucose (UA) Urine Ketones Urine Blood Urine Nitrite Ur Leukocyte Esterase Urine RBC Urine WBC Ur Squamous Epith Cells Urine Bacteria Hyaline Casts COVID-19 ([facility]) COVID-19 [employer] Com Microbiology Microbiology Results: Microbiology 10/29/22 17:54 Blood Culture - Preliminary Blood - Venous Prelim: GPC Gram Stain only 10/29/22 17:44 Blood Culture - Preliminary Blood - Venous Prelim: GPC Gram Stain only 10/29/22 18:40 Urine Culture - Preliminary Urine Catheterized - Henao Catheter No growth to date. Assessment and Plan (1) Acute UTI: Status: Resolved (2) Allergy to multiple antibiotics: Status: Inactive (3) Leukocytosis: Status: Acute (4) Complicated UTI (urinary tract infection): Status: Acute (5) Suprapubic tenderness: Status: Acute (6) Morbid obesity: Status: Acute Plan 77-year-old female with multiple past medical history as well as multiple allergies to many antibiotics presents to the hospital with confusion, increased lethargy found to have acute UTI failed outpatient therapy acute UTI s/p suprapubic tube change and office cysto by Dr. Hayes on 09/04/22 Urine culture growing Enterococcus faecalis CT scan negative for any obstruction, pyelonephritis Continue IV vancomycin for Enterococcus faecalis, DC Aztreonem Urology input appreciated, no other recommendations at this time Plan to discharge home diabetes Continue low-dose sliding scale insulin diabetic diet hold oral anti hypoglycemics hypertension stable continue home antihypertensives morbid obesity: Encouraged to lose weight. DVT prophylaxis: Lovenox inpatient need: failed outpatient uti therapy, as well as multiple allergies to many antibiotics patient required overnight inpatient hospital stay for further management and monitoring Time Spent With Patient Time: Total time managing care of this patient today ____ minutes. Quality Stroke Does the patient have a stroke diagnosis?: No VTE Prior VTE?: No VTE Risk Level:: Medical - moderate - high VTE Device Contraindication: Treatment Not Indicated VTE Drug Contraindication: N/A - Med Ordered
[2022-10-30 16:28] LABS: Glucose, Whole Blood 216 mg/dL (60-115)
[2022-10-30 19:53] VITALS: BP 136/72; PULSE 72; RESP 18; TEMP 36.9; O2SAT 97
[2022-10-30 19:58] LABS: Glucose, Whole Blood 342 mg/dL (60-115)
[2022-10-30] MEDS: Famotidine 20 MG TABLET 40 MG PO (20:48)
[2022-10-30] MEDS: Enoxaparin Sodium 40 MG/0.4 ML SYRINGE SUBCUT (20:48)
[2022-10-30] MEDS: vancomycin HCL 1,000 MG in 0.9 % Sodium Chloride 250 ML 270 MG IV (20:49)
[2022-10-30] MEDS: Atorvastatin Calcium 80 MG TABLET PO (20:49)
[2022-10-31] VITALS (7 sets, daily range): BP systolic 128–166; BP diastolic 60–74; PULSE 56–68; RESP 16–18; TEMP 36.2–37.2; O2SAT 92–94
[2022-10-31] MEDS: 0.9 % Sodium Chloride Flush 3 ML SYRINGE IVFLUSH ×3 (02:40→17:00)
--- NOTE | 2022-10-31 07:00 | CA_ITS ---
Transthoracic Echocardiogram Patient (Last, First, Middle): Kaitlin Ortiz, Gender: Female Date of : 1945 Age: 77 Procedure Date: 10/31/2022 Procedure Type: Transthoracic Echocardiogram Location: [facility] [place] Height: 165.1 cm Weight: 92.99 kg BSA: 2.00 m2 Heart Rate: 62 bpm BP: 151 / 67 mmHg Tube Coverer: Referring MD: Reese Bautista MD Symptoms: gram positive bacteremia Study Quality: Adequate ECG Rhythm: Sinus Conclusions: - The left ventricular systolic function is normal. The visually estimated ejection fraction is between 55-60%. - There is moderately increased left ventricular wall thickness. - There is mild mitral annular calcification. - No obvious valvular pathology seen on this study. Findings Left Ventricle Normal left ventricular cavity size. There is moderately increased left ventricular wall thickness. The left ventricular systolic function is normal. The visually estimated ejection fraction is between 55-60%. There is no evidence of regional wall motion abnormalities. E/E prime ratio is between 8 and 15 consistent with indeterminate filling pressures. Evidence suggests grade I (mild) diastolic dysfunction. Right Ventricle Normal right ventricular cavity size and systolic function. Atria The left atrium is mildly dilated. The right atrium is normal in size. Aortic Valve There is a normal trileaflet aortic valve. There is no aortic valve stenosis. There is no aortic valve regurgitation. Mitral Valve The mitral valve appears normal. There is mild anterior mitral leaflet thickening. There is mild mitral annular calcification. There is no mitral valve regurgitation. There is no mitral valve stenosis. Pulmonic Valve The pulmonic valve is likely normal. Tricuspid Valve Normal tricuspid valve structure. There is trace tricuspid valve regurgitation. There is no evidence of pulmonary hypertension. Great Vessels The asc aorta is normal in size. Small plaque is seen in the sino tubular ridge. Venous The inferior vena cava is normal in size and collapses greater than 50% with inspiration. Pericardium/Pleural There is no evidence of pericardial effusion. Prior Study Comparison No significant change compared to prior study dated: 05/24/2021. Recommendations, Care & Conclusions No obvious valvular pathology seen on this study. Measurements 2D Linear Measurements IVSd: 1.47 0.6-0.9/0.6-1.0 cm LVIDd: 4.86 3.9-5.3/4.2-5.9 cm LVIDd Index: 2.43 2.4-3.2/2.2-3.1 cm/m2 LVIDs: 2.93 2.0-3.6 cm LVPWd: 1.31 0.7-1.1 cm LA Diam: 4.20 2.7-3.8/3.0-4.0 cm LAIDs Index: 2.10 1.5-2.3 cm/m2 LV Mass: 344.40 67-162/88-224 g LV Mass Index: 172.20 43-95/49-115 g/m2 LVOT Diam: 2.40 3.0+(-)1.3 cm 2D Systolic Function EF 4C: 53.90 >55% EF 2C: 51.60 >55% Mitral Valve MV Pk E: 0.83 MV PK A: 1.16 MV Decel Time: 260.00 E/A: 0.70 E'Lateral: 6.64 E'Medial: 5.44 E/E' Med: 15.30 E/E' Lat: 12.50 PHT: 76.00 MVA PHT: 2.89 Decel [place]: 3.21 Aortic Valve AoV Pk Rolly: 1.91 AoV Mn Rolly: 1.47 AoV VTI: 0.45 AoV Pk Grad: 15.00 Aov Mn Grad: 10.00 INGRID Cont.VTI: 2.44 LVOT LVOT Pk Rolly: 0.92 LVOT Mn Rolly: 0.61 LVOT VTI: 0.24 LVOT Pk Grad: 3.00 LVOT Mn Grad: 2.00 LVOT Diam: 2.40 LVOT Area: 4.52 Diastolic Function MV Pk E: 0.83 MV Pk A: 1.16 E/A: 0.70 E'Medial: 5.44 E/E' Med: 15.30 E' Laterial: 6.64 E/E' Lat: 12.50 Right Ventricle TAPSE (mm): 24.30 TVS' Rolly: 11.70 Tricuspid Valve TR Pk Rolly: 2.27 TR Pk Grad: 21.00 RA Press: 3.00 RVSP: 24.00 Great Vessels Aorta Sinus of Valsalva: 2.90 2.0-3.5 cm Ao Asc: 3.20 2.1-3.4 cm Pulmonary Valve PV Pk Rolly: 1.09 Peak PV Grad: 5.00 Updated in Other Vendor System with Status of Final Gerardo Agustin MD electronically signed on 10/31/2022 4:23:22 PM with status of Final
[2022-10-31 07:15] LABS: Creatinine Clr Calc Pharmacy 51.3; Estimated Glomerular Filt Rate 51
[2022-10-31] MEDS: Tolterodine Tartrate LA 4 MG CAP.ER.24H PO (07:47)
[2022-10-31] MEDS: Omeprazole 20 MG CAPSULE.DR PO (07:47)
[2022-10-31] MEDS: hydrALAZINE HCl 25 MG TABLET PO ×3 (07:47→20:42)
[2022-10-31] MEDS: Aspirin Enteric Coated 81 MG TABLET.DR PO (07:47)
[2022-10-31] MEDS: amLODIPine Besylate 10 MG TABLET PO (07:47)
[2022-10-31] MEDS: oxyCODONE HCl Immed Release 5 MG TABLET PO ×2 (07:48→20:50)
[2022-10-31] MEDS: Pregabalin 150 MG CAPSULE PO ×2 (07:48→20:42)
[2022-10-31] MEDS: SITagliptin Phosphate 100 MG TABLET PO (07:48)
[2022-10-31] MEDS: DULoxetine HCl 60 MG CAPSULE.DR PO (07:48)
[2022-10-31] MEDS: Spironolactone 25 MG TABLET PO (07:48)
[2022-10-31] MEDS: Ferrous Sulfate 324 MG TABLET.DR PO (07:49)
[2022-10-31] MEDS: carvediloL 25 MG TABLET PO ×2 (07:49→20:42)
[2022-10-31] MEDS: Escitalopram Oxalate 10 MG TABLET PO (07:49)
[2022-10-31] MEDS: Ascorbic Acid 500 MG TABLET PO ×2 (07:49→20:42)
[2022-10-31 08:30] LABS: Glucose, Whole Blood 217 mg/dL (60-115)
--- NOTE | 2022-10-31 08:44 | MHC.CM.PN ---
PT is now recommending home with home PT; referrals have been made to [facility]NAs and CM will continue to follow.
[2022-10-31] MEDS: Furosemide 40 MG TABLET PO (08:50)
[2022-10-31] MEDS: Insulin Lispro 100 UNIT/ML 3 ML VIAL SUBCUT ×4 (08:50→20:42)
[2022-10-31 11:29] LABS: Glucose, Whole Blood 249 mg/dL (60-115)
--- NOTE | 2022-10-31 12:19 | P.CDIC_ITS ---
CDI Concurrent Query Documentation Clarification: PHYSICIAN'S DOCUMENTATION REQUEST Date of Query: 10/31/22 1220 Patient Name: Kaitlin Ortiz Admit Date: 10/30/22 Dear Doctor, A review of the medical record indicates additional documentation may be needed. Please review below and update the documentation accordingly. Clinical Indicators: Is there a diagnosis that correlates with these lab findings below: Risk Factors/Clinical Indicators/Treatments Labs: POC Glucose 10/30: 342 10/31: 249 Based on the above, could you clarify in the Progress Notes the appropriate diagnosis, if significant, that supports the above abnormalities and additional evaluation, monitoring, and/or treatment rendered: * Hyperglycemia * Other (please specify) * Unable to determine Use of terms such as suspected, likely, concern for, or probable (associated with a specific diagnosis that is being evaluated, monitored, or treated as if it exists) are acceptable and can be coded in the inpatient setting, when documented at the time of discharge. Thank you, Sandie Yanez MS, RN, CCRN Extension: [phone] Please use your independent medical judgment in providing your response. THIS QUERY IS PART OF THE PERMANENT MEDICAL RECORD Provider Response: Other Other Diagnosis: dm with hyperglycemia
--- NOTE | 2022-10-31 14:49 | P.PNIM_ITS ---
Subjective Subjective Date of Service: 10/31/22 Interval History: uti ,hip OA pain Review of Systems still has hip pain Denies any abdominal pain or nausea vomiting or fever. Physical Exam 2 Vital Signs: Vital Signs: Last Vital Signs Temp 97.1 F 10/31/22 07:30 Pulse 68 10/31/22 08:27 Resp 16 10/31/22 07:30 BP 128/60 10/31/22 08:27 Pulse Ox 93 10/31/22 08:27 O2 Del Method 10/31/22 07:30 BMI result Body Mass Index 34.1 Appearance: Alert.? Oriented X3.? not in distress.?. cvs: [id number], [id number] , no murmur res: clear to auscultation ,no rhonchii or wheezing abd: no rebound or guarding ,has suprapubid mild disconfort, bs present. ext pulses present , no cyanosis . neuro: axo3 , nonfocal. Objective Data Active Medications Acetaminophen (Acetaminophen 325 Mg Tablet) 650 mg PO Q6H PRN PRN Reason: Pain, Mild (Pain Scale 1-3) Last Admin: 10/30/22 20:59 Dose: 650 mg Documented By: BRITTNEE Amlodipine Besylate (Amlodipine Besylate 10 Mg Tablet) 10 mg PO DAILY [facility]; Protocol Last Admin: 10/31/22 07:47 Dose: 10 mg Documented By: NATACHA Ascorbic Acid (Ascorbic Acid 500 Mg Tablet) 500 mg PO BID [facility] Last Admin: 10/31/22 07:49 Dose: 500 mg Documented By: NATACHA Aspirin (Aspirin Enteric Coated 81 Mg Tablet.) 81 mg PO DAILY [facility] Last Admin: 10/31/22 07:47 Dose: 81 mg Documented By: NATACHA Atorvastatin Calcium (Atorvastatin Calcium 80 Mg Tablet) 80 mg PO BEDTIME [facility] Last Admin: 10/30/22 20:49 Dose: 80 mg Documented By: BRITTNEE Carvedilol (Carvedilol 25 Mg Tablet) 25 mg PO BID [facility]; Protocol Last Admin: 10/31/22 07:49 Dose: 25 mg Documented By: NATACHA Cyclobenzaprine HCl (Cyclobenzaprine Hcl 5 Mg Tablet) 5 mg PO BEDTIME PRN PRN Reason: Insomnia/Muscle spasms Dextrose (Dextrose 50 % 25 Gm/50 Ml Syringe) 25 gm IVPUSH Q15M PRN; Protocol PRN Reason: per Hypoglycemia Standing Ord. Docusate Sodium (Docusate Sodium 100 Mg Capsule) 100 mg PO DAILY PRN PRN Reason: Constipation Duloxetine HCl (Duloxetine Hcl 60 Mg Capsule.) 60 mg PO DAILY [facility] Last Admin: 10/31/22 07:48 Dose: 60 mg Documented By: NATACHA Enoxaparin Sodium (Enoxaparin Sodium 40 Mg/0.4 Ml Syringe) 40 mg SUBCUT Q24H [facility] Last Admin: 10/30/22 20:48 Dose: 40 mg Documented By: BRITTNEE Escitalopram Oxalate (Escitalopram Oxalate 10 Mg Tablet) 10 mg PO DAILY [facility] Last Admin: 10/31/22 07:49 Dose: 10 mg Documented By: NATACHA Famotidine (Famotidine 20 Mg Tablet) 40 mg PO BEDTIME [facility] Last Admin: 10/30/22 20:48 Dose: 40 mg Documented By: BRITTNEE Ferrous Sulfate (Ferrous Sulfate 324 Mg Tablet.) 324 mg PO DAILY [facility] Last Admin: 10/31/22 07:49 Dose: 324 mg Documented By: NATACHA Furosemide (Furosemide 40 Mg Tablet) 40 mg PO DAILY [facility]; Protocol Last Admin: 10/31/22 09:48 Dose: Not Given Documented By: NATACHA Non-Admin Reason: already given Glucose (Glucose Gel 15 Gm Gel..Gram.) 15 gm PO Q15M PRN; Protocol PRN Reason: per Hypoglycemia Standing Ord. Hydralazine HCl (Hydralazine Hcl 25 Mg Tablet) 25 mg PO TID [facility]; Protocol Last Admin: 10/31/22 07:47 Dose: 25 mg Documented By: NATACHA Vancomycin HCl 1,000 mg/ (Sodium Chloride) 270 mls @ 270 mls/hr IV Q24H [facility] Last Infusion: 10/30/22 22:17 Dose: 0 mls/hr Documented By: BRITTNEE Insulin Human Lispro (Insulin Lispro 100 Unit/Ml 3 Ml Vial) 0 unit SUBCUT QIDACHS [facility]; Protocol Last Admin: 10/31/22 12:11 Dose: 4 unit Documented By: GILES Lorazepam (Lorazepam 0.5 Mg Tablet) 0.5 mg PO Q8H PRN PRN Reason: anxiety Last Admin: 10/30/22 10:06 Dose: 0.5 mg Documented By: PRISCILLA Non-Formulary Medication (Sulindac) 150 mg PO BID [facility] Pt Own (Ibrutinib [ Imbruvica] 420 Mg Tablet) 420 mg PO DAILY [facility] Last Admin: 10/31/22 07:50 Dose: 420 mg Documented By: NATACHA Omeprazole (Omeprazole 20 Mg Capsule.Dr) 20 mg PO DAILY [facility] Last Admin: 10/31/22 07:47 Dose: 20 mg Documented By: NATACHA Ondansetron HCl (Ondansetron Hcl 4 Mg/2 Ml Vial) 4 mg IVPUSH Q8H PRN PRN Reason: Nausea and Vomiting Last Admin: 10/29/22 22:18 Dose: 4 mg Documented By: ANGEMILLICENT Oxycodone HCl (Oxycodone Hcl Immed Release 5 Mg Tablet) 5 mg PO BID PRN PRN Reason: Pain, Severe (Pain Scale 7-10) Last Admin: 10/31/22 07:48 Dose: 5 mg Documented By: NATACHA Pharmacy Consult (Consult Rx Vancomycin Dosing) 1 each MISCELLANE DAILY PRN PRN Reason: Consult order Pregabalin (Pregabalin 150 Mg Capsule) 150 mg PO BID [facility] Last Admin: 10/31/22 07:48 Dose: 150 mg Documented By: NATACHA Senna (Sennosides 8.6 Mg Tablet) 17.2 mg PO BEDTIME PRN PRN Reason: CONSTIPATION Sitagliptin Phosphate (Sitagliptin Phosphate 100 Mg Tablet) 100 mg PO DAILY [facility] Last Admin: 10/31/22 07:48 Dose: 100 mg Documented By: NATACHA Sodium Chloride (0.9 % Sodium Chloride Flush 3 Ml Syringe) 3 ml IVFLUSH QSHIFT [facility] Last Admin: 10/31/22 07:49 Dose: 3 ml Documented By: NATACHA Spironolactone (Spironolactone 25 Mg Tablet) 25 mg PO DAILY [facility]; Protocol Last Admin: 10/31/22 07:48 Dose: 25 mg Documented By: NATACHA Tolterodine Tartrate (Tolterodine Tartrate La 4 Mg Cap.Er.24h) 4 mg PO DAILY [facility] Last Admin: 10/31/22 07:47 Dose: 4 mg Documented By: NATACHA Labs 10/30/22 04:17 10/31/22 06:17 Labs: Laboratory Results - last 24 hr 10/30/22 10/30/22 10/31/22 16:19 19:41 06:17 Estim Creat Clear Calc 51.3 Estimated GFR 51 POC Glucose 216 H 342 H 10/31/22 10/31/22 08:26 11:09 Estim Creat Clear Calc Estimated GFR POC Glucose 217 H 249 H Microbiology Microbiology Results: Microbiology 10/29/22 17:54 Blood Culture - Preliminary Blood - Venous Enterococcus/Streptococcus sp 10/29/22 17:44 Blood Culture - Preliminary Blood - Venous Enterococcus/Streptococcus sp 10/29/22 18:40 Urine Culture - Preliminary Urine Catheterized - Henao Catheter No growth to date. Assessment and Plan (1) Hyperglycemia: Status: Acute (2) Gram-positive bacteremia: Status: Acute Plan 77-year-old female with multiple past medical history as well as multiple allergies to many antibiotics presents to the hospital with confusion, increased lethargy found to have acute UTI failed outpatient therapy acute UTI/ gram positive bacteremia s/p suprapubic tube change and office cysto by Dr. Hayes on 09/04/22 Urine culture growing Enterococcus faecalis CT scan negative for any obstruction, pyelonephritis ?Continue IV vancomycin for Enterococcus faecalis Urology eval added. ? diabetes with hyperglycemia Continue adjusted sliding scale insulin diabetic diet hold oral anti hypoglycemics ? hypertension stable continue home? antihypertensives morbid obesity:? Encouraged to lose weight. ?DVT prophylaxis:? Lovenox ?inpatient need: ?failed outpatient uti therapy, as well as multiple allergies to many antibiotics patient required overnight inpatient hospital stay for further management and monitoring Time Spent With Patient Time: Total time managing care of this patient today ____ minutes. Quality Stroke Does the patient have a stroke diagnosis?: No VTE Prior VTE?: No VTE Risk Level:: Medical - moderate - high VTE Device Contraindication: Treatment Not Indicated VTE Drug Contraindication: N/A - Med Ordered
[2022-10-31] MEDS: Acetaminophen 325 MG TABLET 650 MG PO (15:23)
[2022-10-31 17:00] LABS: Glucose, Whole Blood 210 mg/dL (60-115)
[2022-10-31 20:00] LABS: Glucose, Whole Blood 218 mg/dL (60-115)
[2022-10-31 20:31] LABS: Vancomycin Trough 5.4 mcg/mL (10.0-20.0)
[2022-10-31] MEDS: Atorvastatin Calcium 80 MG TABLET PO (20:42)
[2022-10-31] MEDS: Famotidine 20 MG TABLET 40 MG PO (20:42)
[2022-10-31] MEDS: Enoxaparin Sodium 40 MG/0.4 ML SYRINGE SUBCUT (21:01)
[2022-10-31] MEDS: vancomycin HCL 750 MG in 0.9 % Sodium Chloride 250 ML 265 MG IV (21:02)
[2022-10-31] MEDS: LORazepam 0.5 MG TABLET PO (22:56)
[2022-11-01] MEDS: 0.9 % Sodium Chloride Flush 3 ML SYRINGE IVFLUSH ×4 (00:05→21:25)
[2022-11-01 04:00] VITALS: BP 131/75; PULSE 70; RESP 17; TEMP 36.7; O2SAT 95
[2022-11-01 07:24] VITALS: BP 161/72; PULSE 70; RESP 18; TEMP 36.4; O2SAT 93
[2022-11-01 07:35] LABS: Estimated Glomerular Filt Rate 54
[2022-11-01 08:01] LABS: Glucose, Whole Blood 226 mg/dL (60-115)
[2022-11-01] MEDS: Insulin Lispro 100 UNIT/ML 3 ML VIAL SUBCUT ×4 (08:42→21:28)
[2022-11-01] MEDS: Tolterodine Tartrate LA 4 MG CAP.ER.24H PO (08:44)
[2022-11-01] MEDS: Omeprazole 20 MG CAPSULE.DR PO (08:44)
[2022-11-01] MEDS: Ascorbic Acid 500 MG TABLET PO ×2 (08:44→21:27)
[2022-11-01] MEDS: Pregabalin 150 MG CAPSULE PO ×2 (08:45→21:27)
[2022-11-01] MEDS: Aspirin Enteric Coated 81 MG TABLET.DR PO (08:45)
[2022-11-01] MEDS: Ferrous Sulfate 324 MG TABLET.DR PO (08:45)
[2022-11-01] MEDS: DULoxetine HCl 60 MG CAPSULE.DR PO (08:45)
[2022-11-01] MEDS: Escitalopram Oxalate 10 MG TABLET PO (08:46)
[2022-11-01] MEDS: SITagliptin Phosphate 100 MG TABLET PO (08:46)
[2022-11-01] MEDS: carvediloL 25 MG TABLET PO ×2 (08:46→21:27)
[2022-11-01 08:47] VITALS: BP 161/72; PULSE 70; O2SAT 93
[2022-11-01] MEDS: Furosemide 40 MG TABLET PO (08:47)
[2022-11-01] MEDS: Spironolactone 25 MG TABLET PO (08:47)
[2022-11-01] MEDS: amLODIPine Besylate 10 MG TABLET PO (08:47)
[2022-11-01] MEDS: hydrALAZINE HCl 25 MG TABLET PO ×3 (08:47→21:27)
[2022-11-01] MEDS: oxyCODONE HCl Immed Release 5 MG TABLET PO (08:50)
[2022-11-01] MEDS: vancomycin HCL 750 MG in 0.9 % Sodium Chloride 250 ML 265 MG IV (10:06)
[2022-11-01 11:22] LABS: Glucose, Whole Blood 235 mg/dL (60-115)
--- NOTE | 2022-11-01 12:44 | PM.UROCN ---
History of Present Illness Consult details Consult date: 10/31/22 Narrative: Consulting complaint : Suprapubic tube change Kaitlin is a pleasant female. Well known to Urology. Prolonged history of complicated UTI, neurogenic bladder with incomplete emptying, multi resistant disease. Has been managed with suprapubic tube for bladder emptying Significant past medical history with diabetes, CLL, immunosuppression months Jostin diagnoses Admitted through emergency department with elevated white count, urine positive, prior presentation with similar bacteria Enterococcus. Due to allergy profile treatment has been guided through Infectious Disease. Suprapubic tube changed at bedside Clean technique used 7 cc in balloon Clear drainage Review of Systems Constitutional: Constitutional: Reports as per HPI and Reports no additional constitutional complaints Cardiovascular: Cardiovascular: Reports as per HPI and Reports no additional cardiovascular complaints Respiratory: Respiratory: Reports as per HPI and Reports no additional respiratory complaints Gastrointestinal: Gastrointestinal: Reports as per HPI and Reports no additional gastrointestinal complaints Genitourinary: Genitourinary: Reports as per HPI Musculoskeletal: Musculoskeletal: Reports no additional musculoskeletal complaints and Reports as per HPI Neurologic: Reports system reviewed and no additional complaints, except as documented and Reports as per HPI PMFSH Past Medical History Medical History Allergy to multiple antibiotics Anemia Arthritis CLL (chronic lymphocytic leukemia) CLL (chronic lymphocytic leukemia) Depression Diabetes mellitus Fibromyalgia History of bilateral breast cancer History of blood transfusion History of CVA (cerebrovascular accident) History of numbness Hypercholesterolemia Hypertension PONV (postoperative nausea and vomiting) Seasonal allergies Self-catheterizes urinary bladder Sleep apnea Type 2 diabetes mellitus with unspecified complications Wears dentures Family History Family History Mother Breast cancer Father Heart disease Father Lung cancer Mother Colon cancer Brother Pancreatic cancer Surgical History Surgical History History of back surgery History of biopsy of bladder History of bladder repair surgery History of esophagogastroduodenoscopy (EGD) History of suprapubic catheter History of total hysterectomy Hx of colonoscopy S/P Botox injection S/P breast biopsy, right S/P left breast biopsy Social History Social History Household Members: Significant Other Housing: House Are you a primary animal caregiver to a significant other at home: No Do you presently have visiting nurse or other home services: No Alcohol intake: never Patient Tobacco Use Status: Never used Tobacco Smoked in Last 30 Days: No Use of substances other than those prescribed or required for medical reasons: No Currently Displaying Signs/Symptoms of Drug Intoxication Withdrawal: No Have you been hit, kicked, punched, or otherwise hurt by someone within the past year? If so, by whom?: No Do you feel safe in your current relationship?: Yes Is there a partner from a previous relationship who is making you feel unsafe now?: No Are you made to feel afraid or neglected: No Advance Directives: Yes Advance Directives on File: Yes Advance Directives Date on File: 04/11/22 Do you have thoughts of harming others: None Do you have a plan to hurt others: No Plan Patient : No service: No Current occupational status: retired Meds Allergies Allergy/AdvReac Type Severity Reaction Status Date / Time amoxicillin [AMOXICILLIN] Allergy Severe stroke, Verified 09/19/22 12:02 blood clots ciprofloxacin [From CIPRO] Allergy Severe ANAPHYLAXIS Verified 09/19/22 12:02 Iodinated Contrast Media Allergy Severe HIVES Verified 09/19/22 12:02 [IV DYE, IODINE CONTAINING CONTRAST ] levofloxacin Allergy Severe Anaphylaxis Verified 09/19/22 12:02 liraglutide Allergy Severe Headache Verified 09/19/22 12:02 Penicillins Allergy Severe stroke, Verified 09/19/22 12:02 blood clots phenazopyridine [Pyridium] Allergy Severe Anaphylaxis Verified 09/19/22 12:02 FREYA Inhibitors Allergy Intermediate Cough Verified 09/19/22 12:02 ARB-Angiotensin Receptor Allergy Intermediate Cough Verified 09/19/22 12:02 Antagonist atorvastatin Allergy Intermediate Shortness Verified 09/19/22 12:02 of Breath cefpodoxime Allergy Intermediate Dizziness, Verified 09/19/22 12:02 nausea celecoxib [From CELEBREX] Allergy Intermediate HIVES Verified 09/19/22 12:02 doxazosin Allergy Intermediate Shortness Verified 09/19/22 12:02 of Breath fluticasone [Advair Diskus] Allergy Intermediate Anxiety Verified 09/19/22 12:02 gabapentin [From Neurontin] Allergy Intermediate Headache Verified 09/19/22 12:02 hydralazine Allergy Intermediate Shortness Verified 09/19/22 12:02 of Breath latex Allergy Intermediate Hives Verified 09/19/22 12:02 linezolid Allergy Intermediate Nausea and Verified 09/19/22 12:02 Vomiting meloxicam Allergy Intermediate Unknown Verified 09/19/22 12:02 salmeterol [Advair Diskus] Allergy Intermediate Anxiety Verified 09/19/22 12:02 Tetanus Vaccines and Toxoid Allergy Intermediate Swelling Verified 09/19/22 12:02 torsemide Allergy Intermediate Shortness Verified 09/19/22 12:02 of Breath cephalexin [Keflex] Allergy Mild Nausea Verified 09/19/22 12:02 Active Medications: Current Medications Acetaminophen (Acetaminophen 325 Mg Tablet) 650 mg PO Q6H PRN PRN Reason: Pain, Mild (Pain Scale 1-3) Last Admin: 10/31/22 15:23 Dose: 650 mg Amlodipine Besylate (Amlodipine Besylate 10 Mg Tablet) 10 mg PO DAILY [facility]; Protocol Last Admin: 11/01/22 08:47 Dose: 10 mg Ascorbic Acid (Ascorbic Acid 500 Mg Tablet) 500 mg PO BID [facility] Last Admin: 11/01/22 08:44 Dose: 500 mg Aspirin (Aspirin Enteric Coated 81 Mg Tablet.) 81 mg PO DAILY [facility] Last Admin: 11/01/22 08:45 Dose: 81 mg Atorvastatin Calcium (Atorvastatin Calcium 80 Mg Tablet) 80 mg PO BEDTIME [facility] Last Admin: 10/31/22 20:42 Dose: 80 mg Carvedilol (Carvedilol 25 Mg Tablet) 25 mg PO BID [facility]; Protocol Last Admin: 11/01/22 08:46 Dose: 25 mg Cyclobenzaprine HCl (Cyclobenzaprine Hcl 5 Mg Tablet) 5 mg PO BEDTIME PRN PRN Reason: Insomnia/Muscle spasms Dextrose (Dextrose 50 % 25 Gm/50 Ml Syringe) 25 gm IVPUSH Q15M PRN; Protocol PRN Reason: per Hypoglycemia Standing Ord. Docusate Sodium (Docusate Sodium 100 Mg Capsule) 100 mg PO DAILY PRN PRN Reason: Constipation Duloxetine HCl (Duloxetine Hcl 60 Mg Capsule.) 60 mg PO DAILY [facility] Last Admin: 11/01/22 08:45 Dose: 60 mg Enoxaparin Sodium (Enoxaparin Sodium 40 Mg/0.4 Ml Syringe) 40 mg SUBCUT Q24H [facility] Last Admin: 10/31/22 21:01 Dose: 40 mg Escitalopram Oxalate (Escitalopram Oxalate 10 Mg Tablet) 10 mg PO DAILY [facility] Last Admin: 11/01/22 08:46 Dose: 10 mg Famotidine (Famotidine 20 Mg Tablet) 40 mg PO BEDTIME [facility] Last Admin: 10/31/22 20:42 Dose: 40 mg Ferrous Sulfate (Ferrous Sulfate 324 Mg Tablet.) 324 mg PO DAILY [facility] Last Admin: 11/01/22 08:45 Dose: 324 mg Furosemide (Furosemide 40 Mg Tablet) 40 mg PO DAILY [facility]; Protocol Last Admin: 11/01/22 08:47 Dose: 40 mg Glucose (Glucose Gel 15 Gm Gel..Gram.) 15 gm PO Q15M PRN; Protocol PRN Reason: per Hypoglycemia Standing Ord. Hydralazine HCl (Hydralazine Hcl 25 Mg Tablet) 25 mg PO TID [facility]; Protocol Last Admin: 11/01/22 08:47 Dose: 25 mg Daptomycin 575 mg/ Sodium (Chloride) 61.5 mls @ 123 mls/hr IV Q24H [facility] Insulin Human Lispro (Insulin Lispro 100 Unit/Ml 3 Ml Vial) 0 unit SUBCUT QIDACHS [facility]; Protocol Last Admin: 11/01/22 11:40 Dose: 4 unit Lorazepam (Lorazepam 0.5 Mg Tablet) 0.5 mg PO Q8H PRN PRN Reason: anxiety Last Admin: 10/31/22 22:56 Dose: 0.5 mg Non-Formulary Medication (Sulindac) 150 mg PO BID [facility] Pt Own (Ibrutinib [ Imbruvica] 420 Mg Tablet) 420 mg PO DAILY [facility] Last Admin: 11/01/22 10:28 Dose: 420 mg Omeprazole (Omeprazole 20 Mg Capsule.) 20 mg PO DAILY [facility] Last Admin: 11/01/22 08:44 Dose: 20 mg Ondansetron HCl (Ondansetron Hcl 4 Mg/2 Ml Vial) 4 mg IVPUSH Q8H PRN PRN Reason: Nausea and Vomiting Last Admin: 10/29/22 22:18 Dose: 4 mg Oxycodone HCl (Oxycodone Hcl Immed Release 5 Mg Tablet) 5 mg PO BID PRN PRN Reason: Pain, Severe (Pain Scale 7-10) Last Admin: 11/01/22 08:50 Dose: 5 mg Pregabalin (Pregabalin 150 Mg Capsule) 150 mg PO BID [facility] Last Admin: 11/01/22 08:45 Dose: 150 mg Senna (Sennosides 8.6 Mg Tablet) 17.2 mg PO BEDTIME PRN PRN Reason: CONSTIPATION Sitagliptin Phosphate (Sitagliptin Phosphate 100 Mg Tablet) 100 mg PO DAILY [facility] Last Admin: 11/01/22 08:46 Dose: 100 mg Sodium Chloride (0.9 % Sodium Chloride Flush 3 Ml Syringe) 3 ml IVFLUSH QSHIFT [facility] Last Admin: 11/01/22 08:51 Dose: 3 ml Spironolactone (Spironolactone 25 Mg Tablet) 25 mg PO DAILY [facility]; Protocol Last Admin: 11/01/22 08:47 Dose: 25 mg Tolterodine Tartrate (Tolterodine Tartrate La 4 Mg Cap.Er.24h) 4 mg PO DAILY [facility] Last Admin: 11/01/22 08:44 Dose: 4 mg Home Medications Medication Instructions Recorded Confirmed Last Taken Type citalopram 20 mg tablet 20 mg PO DAILY 07/21/20 10/29/22 04/16/22 History cyclobenzaprine 5 mg tablet 5 mg PO BEDTIME PRN 07/21/20 10/29/22 Unknown History Insomnia/Muscle spasms duloxetine 60 mg capsule,delayed 60 mg PO DAILY 07/21/20 10/29/22 04/16/22 History release spironolactone 25 mg tablet 25 mg PO DAILY 07/21/20 10/29/22 Unknown History amlodipine 10 mg tablet 10 mg PO DAILY 03/23/21 10/29/22 04/16/22 History metformin 1,000 mg tablet 1,000 mg PO BID 04/19/21 10/29/22 Unknown History carvedilol 25 mg tablet 25 mg PO BID 05/31/21 10/29/22 04/16/22 History pregabalin 150 mg capsule 150 mg PO BID 07/27/21 10/29/22 04/16/22 History sulindac 150 mg tablet 150 mg PO BID 07/27/21 10/29/22 04/15/22 History sitagliptin phosphate 100 mg 100 mg PO QAM 08/21/22 10/29/22 Unknown History tablet (Januvia) furosemide 20 mg tablet 40 mg PO QAM 08/27/22 10/29/22 Unknown History blood sugar diagnostic (Accu-Chek #10 ea 09/04/22 Unknown History Guide test strips) hydralazine 25 mg tablet 25 mg PO TID 09/04/22 10/29/22 Unknown History ibrutinib 420 mg tablet (Imbruvica) 420 mg PO DAILY 10/30/22 10/30/22 Unknown History lorazepam 0.5 mg tablet 1 tab PO Q8H PRN anxiety 10/30/22 10/30/22 Unknown History nitrofurantoin macrocrystal 100 mg 100 mg PO BID 10/30/22 10/30/22 Unknown History capsule sennosides 8.6 mg tablet (senna) 17.2 mg PO BEDTIME PRN Constipation 10/30/22 10/30/22 Unknown History Physical Exam Vital Signs: Vital Signs: Last Vital Signs Temp 97.5 F 11/01/22 07:24 Pulse 70 11/01/22 08:47 Resp 18 11/01/22 07:24 BP 161/72 H 11/01/22 08:47 Pulse Ox 93 11/01/22 08:47 O2 Del Method 11/01/22 07:24 BMI result Body Mass Index 34.1 Const: General: cooperative, healthy appearing, comfortable and no acute distress Orientation/consciousness: patient oriented x3 HEENT: Face and sinus: Yes normal facial exam Mouth: moist mucous membranes Neck: Neck: Yes normal visual inspection, Yes full ROM and Yes trachea midline Chest: Chest palpation & inspection: normal inspection of the chest Resp: Effort & Inspection: normal respiratory effort, able to speak in complete sentences and no respiratory distress GI: Inspection: Yes normal to inspection Back/Spine/Pelvis: Cervical Spine: normal cervical lordosis Thoracic/Lumbar Spine: thoracic and lumbar spine normal to inspection Skin: General skin exam: no rashes or lesions noted Neuro: General: patient oriented x3, tone normal and moves all extremities Extrem: General: Yes normal to inspection and Yes capillary refill normal Results Labs 10/30/22 04:17 11/01/22 05:58 Labs: Abnormal lab results 10/31/22 10/31/22 10/31/22 Range/Units 16:54 19:51 19:54 POC Glucose 210 H 218 H (60-115) mg/dL Vancomycin Trough 5.4 L (10.0-20.0) mcg/mL 11/01/22 11/01/22 Range/Units 07:22 11:09 POC Glucose 226 H 235 H (60-115) mg/dL Vancomycin Trough (10.0-20.0) mcg/mL BMP 11/01/22 05:58 Creatinine 1.00 Urine 10/29/22 Range/Units 18:09 Urine Color [place] A Urine Appearance Turbid Urine pH 7.0 (5.0-9.0) Ur Specific [place] 1.015 (1.005-1.025) Urine Protein 100 (2+) H (Neg-Trace) mg/dL Urine Glucose (UA) 500 H (Negative) mg/dL All other labs normal. Assessment and Plan (1) Complicated UTI (urinary tract infection): Status: Acute (2) Urinary retention with incomplete bladder emptying: Status: Acute Plan Continue suprapubic tube exchange every 3-4 weeks Antibiotics per ID Time Spent With Patient Time: Total time managing care of this patient today ____ minutes. Procedures Date of Service Date of Service: 10/31/22 Catheter Insertion (Urinary) Replacement of catheter present on admission: Yes Reason for placing: Acute urinary retention Catheter type/location: Urethral Catheter balloon amount: 7 Results: consulted Complications: exchanged SPT 18F
[2022-11-01] MEDS: DAPTOmycin 575 MG in 0.9 % Sodium Chloride 50 ML 123 MG IV (13:02)
[2022-11-01 15:49] VITALS: BP 116/58; PULSE 70; RESP 20; TEMP 36.8; O2SAT 94
[2022-11-01 16:44] LABS: Glucose, Whole Blood 204 mg/dL (60-115)
--- NOTE | 2022-11-01 17:24 | P.PNIM_ITS ---
Subjective Subjective Date of Service: 11/01/22 Interval History: uti ,hip OA pain, persistent Gram-positive bacteremia. Review of Systems still has hip pain Denies any abdominal pain or nausea vomiting or fever. Physical Exam Vital Signs: Vital Signs: Last Vital Signs Temp 98.2 F 11/01/22 15:49 Pulse 70 11/01/22 15:49 Resp 20 11/01/22 15:49 BP 116/58 L 11/01/22 15:49 Pulse Ox 94 11/01/22 15:49 O2 Del Method 11/01/22 15:49 BMI result Body Mass Index 34.1 Appearance: Alert.? Oriented X3.? not in distress.?. cvs: rrr, [id number] , no murmur res: clear to auscultation ,no rhonchii or wheezing abd: no rebound or guarding ,has suprapubid mild disconfort, bs present. ext pulses present , no cyanosis . neuro: axo3 , nonfocal. Objective Data Active Medications Acetaminophen (Acetaminophen 325 Mg Tablet) 650 mg PO Q6H PRN PRN Reason: Pain, Mild (Pain Scale 1-3) Last Admin: 10/31/22 15:23 Dose: 650 mg Documented By: NATACHA Amlodipine Besylate (Amlodipine Besylate 10 Mg Tablet) 10 mg PO DAILY [facility]; Protocol Last Admin: 11/01/22 08:47 Dose: 10 mg Documented By: JUSTIN Ascorbic Acid (Ascorbic Acid 500 Mg Tablet) 500 mg PO BID [facility] Last Admin: 11/01/22 08:44 Dose: 500 mg Documented By: JUSTIN Aspirin (Aspirin Enteric Coated 81 Mg Tablet.) 81 mg PO DAILY [facility] Last Admin: 11/01/22 08:45 Dose: 81 mg Documented By: JUSTIN Atorvastatin Calcium (Atorvastatin Calcium 80 Mg Tablet) 80 mg PO BEDTIME [facility] Last Admin: 10/31/22 20:42 Dose: 80 mg Documented By: JAKE Carvedilol (Carvedilol 25 Mg Tablet) 25 mg PO BID [facility]; Protocol Last Admin: 11/01/22 08:46 Dose: 25 mg Documented By: JUSTIN Cyclobenzaprine HCl (Cyclobenzaprine Hcl 5 Mg Tablet) 5 mg PO BEDTIME PRN PRN Reason: Insomnia/Muscle spasms Dextrose (Dextrose 50 % 25 Gm/50 Ml Syringe) 25 gm IVPUSH Q15M PRN; Protocol PRN Reason: per Hypoglycemia Standing Ord. Docusate Sodium (Docusate Sodium 100 Mg Capsule) 100 mg PO DAILY PRN PRN Reason: Constipation Duloxetine HCl (Duloxetine Hcl 60 Mg Capsule.) 60 mg PO DAILY [facility] Last Admin: 11/01/22 08:45 Dose: 60 mg Documented By: JUSTIN Enoxaparin Sodium (Enoxaparin Sodium 40 Mg/0.4 Ml Syringe) 40 mg SUBCUT Q24H [facility] Last Admin: 10/31/22 21:01 Dose: 40 mg Documented By: JAKE Escitalopram Oxalate (Escitalopram Oxalate 10 Mg Tablet) 10 mg PO DAILY [facility] Last Admin: 11/01/22 08:46 Dose: 10 mg Documented By: JUSTIN Famotidine (Famotidine 20 Mg Tablet) 40 mg PO BEDTIME [facility] Last Admin: 10/31/22 20:42 Dose: 40 mg Documented By: JAKE Ferrous Sulfate (Ferrous Sulfate 324 Mg Tablet.) 324 mg PO DAILY [facility] Last Admin: 11/01/22 08:45 Dose: 324 mg Documented By: JUSTIN Furosemide (Furosemide 40 Mg Tablet) 40 mg PO DAILY [facility]; Protocol Last Admin: 11/01/22 08:47 Dose: 40 mg Documented By: JUSTIN Glucose (Glucose Gel 15 Gm Gel..Gram.) 15 gm PO Q15M PRN; Protocol PRN Reason: per Hypoglycemia Standing Ord. Hydralazine HCl (Hydralazine Hcl 25 Mg Tablet) 25 mg PO TID [facility]; Protocol Last Admin: 11/01/22 16:09 Dose: 25 mg Documented By: JUSTIN Daptomycin 575 mg/ Sodium (Chloride) 61.5 mls @ 123 mls/hr IV Q24H [facility] Last Infusion: 11/01/22 13:35 Dose: 0 mls/hr Documented By: JUSTIN Insulin Human Lispro (Insulin Lispro 100 Unit/Ml 3 Ml Vial) 0 unit SUBCUT QIDACHS [facility]; Protocol Last Admin: 11/01/22 16:46 Dose: 4 unit Documented By: JUSTIN Lorazepam (Lorazepam 0.5 Mg Tablet) 0.5 mg PO Q8H PRN PRN Reason: anxiety Last Admin: 10/31/22 22:56 Dose: 0.5 mg Documented By: JAKE Non-Formulary Medication (Sulindac) 150 mg PO BID [facility] Pt Own (Ibrutinib [ Imbruvica] 420 Mg Tablet) 420 mg PO DAILY [facility] Last Admin: 11/01/22 10:28 Dose: 420 mg Documented By: JUSTIN Omeprazole (Omeprazole 20 Mg Capsule.Dr) 20 mg PO DAILY [facility] Last Admin: 11/01/22 08:44 Dose: 20 mg Documented By: JUSTIN Ondansetron HCl (Ondansetron Hcl 4 Mg/2 Ml Vial) 4 mg IVPUSH Q8H PRN PRN Reason: Nausea and Vomiting Last Admin: 10/29/22 22:18 Dose: 4 mg Documented By: CHAUNCEY Oxycodone HCl (Oxycodone Hcl Immed Release 5 Mg Tablet) 5 mg PO BID PRN PRN Reason: Pain, Severe (Pain Scale 7-10) Last Admin: 11/01/22 08:50 Dose: 5 mg Documented By: JUSTIN Pregabalin (Pregabalin 150 Mg Capsule) 150 mg PO BID [facility] Last Admin: 11/01/22 08:45 Dose: 150 mg Documented By: JUSTIN Senna (Sennosides 8.6 Mg Tablet) 17.2 mg PO BEDTIME PRN PRN Reason: CONSTIPATION Sitagliptin Phosphate (Sitagliptin Phosphate 100 Mg Tablet) 100 mg PO DAILY [facility] Last Admin: 11/01/22 08:46 Dose: 100 mg Documented By: JUSTIN Sodium Chloride (0.9 % Sodium Chloride Flush 3 Ml Syringe) 3 ml IVFLUSH QSHIFT [facility] Last Admin: 11/01/22 16:09 Dose: 3 ml Documented By: JUSTIN Spironolactone (Spironolactone 25 Mg Tablet) 25 mg PO DAILY [facility]; Protocol Last Admin: 11/01/22 08:47 Dose: 25 mg Documented By: JUSTIN Tolterodine Tartrate (Tolterodine Tartrate La 4 Mg Cap.Er.24h) 4 mg PO DAILY [facility] Last Admin: 11/01/22 08:44 Dose: 4 mg Documented By: JUSTIN Labs 10/30/22 04:17 11/01/22 05:58 Labs: Laboratory Results - last 24 hr 10/31/22 10/31/22 11/01/22 19:51 19:54 05:58 Estim Creat Clear Calc 54.0 Estimated GFR 54 POC Glucose 218 H Vancomycin Trough 5.4 L 11/01/22 11/01/22 11/01/22 07:22 11:09 16:37 Estim Creat Clear Calc Estimated GFR POC Glucose 226 H 235 H 204 H Vancomycin Trough Microbiology Microbiology Results: Microbiology 10/29/22 18:40 Urine Culture - Preliminary Urine Catheterized - Henao Catheter Yeast Gram negative elvira 10/31/22 08:31 Blood Culture - Preliminary Blood - Venous Prelim: GPC Gram Stain only 10/29/22 17:54 Blood Culture - Final Blood - Venous Enterococcus faecalis 10/29/22 17:44 Blood Culture - Final Blood - Venous Enterococcus faecalis 10/31/22 08:27 Blood Culture - Preliminary Blood - Venous Prelim: GPC Gram Stain only Assessment and Plan (1) Hyperglycemia: Status: Acute (2) Gram-positive bacteremia: Status: Acute Plan 77-year-old female with multiple past medical history as well as multiple allergies to many antibiotics presents to the hospital with confusion, increased lethargy found to have acute UTI failed outpatient therapy acute UTI/ gram positive bacteremia s/p suprapubic tube change and office cysto by Dr. Hayes on 09/04/22 Urine culture growing Enterococcus faecalis CT scan negative for any obstruction, pyelonephritis ?Continue IV vancomycin for Enterococcus faecalis Urology eval added. ? diabetes with hyperglycemia Continue adjusted sliding scale insulin diabetic diet hold oral anti hypoglycemics ? hypertension stable continue home? antihypertensives morbid obesity:? Encouraged to lose weight. ?DVT prophylaxis:? Lovenox ?inpatient need: ?failed outpatient uti therapy, as well as multiple allergies to many antibiotics patient required overnight inpatient hospital stay for further management and monitoring Time Spent With Patient Time: Total time managing care of this patient today ____ minutes. Quality Stroke Does the patient have a stroke diagnosis?: No VTE Prior VTE?: No VTE Risk Level:: Medical - moderate - high VTE Device Contraindication: Treatment Not Indicated VTE Drug Contraindication: N/A - Med Ordered
[2022-11-01] MEDS: Acetaminophen 325 MG TABLET 650 MG PO (18:29)
[2022-11-01 19:40] VITALS: BP 142/63; PULSE 78; RESP 18; TEMP 36.3; O2SAT 93
[2022-11-01 20:31] LABS: Glucose, Whole Blood 207 mg/dL (60-115)
[2022-11-01] MEDS: Enoxaparin Sodium 40 MG/0.4 ML SYRINGE SUBCUT (21:26)
[2022-11-01] MEDS: Famotidine 20 MG TABLET 40 MG PO (21:27)
[2022-11-01] MEDS: Atorvastatin Calcium 80 MG TABLET PO (21:27)
[2022-11-01 23:15] VITALS: RESP 18
[2022-11-02 03:30] VITALS: BP 140/68; PULSE 85; RESP 17; TEMP 36.7; O2SAT 96
[2022-11-02 07:13] LABS: Creatinine Clr Calc Pharmacy 55.6; Estimated Glomerular Filt Rate 56
[2022-11-02 07:22] VITALS: BP 142/77; PULSE 72; RESP 19; TEMP 36.6; O2SAT 96
[2022-11-02 07:41] LABS: Glucose, Whole Blood 189 mg/dL (60-115)
[2022-11-02] MEDS: carvediloL 25 MG TABLET PO ×2 (08:08→19:50)
[2022-11-02] MEDS: Tolterodine Tartrate LA 4 MG CAP.ER.24H PO (08:08)
[2022-11-02] MEDS: amLODIPine Besylate 10 MG TABLET PO (08:09)
[2022-11-02] MEDS: hydrALAZINE HCl 25 MG TABLET PO ×3 (08:09→19:50)
[2022-11-02] MEDS: Ferrous Sulfate 324 MG TABLET.DR PO (08:09)
[2022-11-02] MEDS: Aspirin Enteric Coated 81 MG TABLET.DR PO (08:09)
[2022-11-02] MEDS: DULoxetine HCl 60 MG CAPSULE.DR PO (08:09)
[2022-11-02] MEDS: Pregabalin 150 MG CAPSULE PO ×2 (08:09→19:50)
[2022-11-02] MEDS: SITagliptin Phosphate 100 MG TABLET PO (08:09)
[2022-11-02] MEDS: Furosemide 40 MG TABLET PO (08:09)
[2022-11-02] MEDS: Escitalopram Oxalate 10 MG TABLET PO (08:09)
[2022-11-02] MEDS: Omeprazole 20 MG CAPSULE.DR PO (08:09)
[2022-11-02] MEDS: Spironolactone 25 MG TABLET PO (08:09)
[2022-11-02] MEDS: Ascorbic Acid 500 MG TABLET PO ×2 (08:10→19:50)
[2022-11-02] MEDS: Insulin Lispro 100 UNIT/ML 3 ML VIAL SUBCUT ×4 (08:11→20:51)
[2022-11-02] MEDS: 0.9 % Sodium Chloride Flush 3 ML SYRINGE IVFLUSH ×2 (08:12→15:40)
--- NOTE | 2022-11-02 11:09 | P.CDIC_ITS ---
CDI Concurrent Query Documentation Clarification: PHYSICIAN'S DOCUMENTATION REQUEST Date of Query: 11/02/22 1109 Patient Name: Kaitlin Ortiz Admit Date: 10/30/22 Dear Doctor, A review of the medical record indicates additional documentation may be needed. Please review below and update the documentation accordingly. Clinical Indicators: Is there a diagnosis that correlates with the findings below: Risk Factors/Clinical Indicators/Treatments POA/TREAT/RESOLVED/RULE OUT Per ED note on 10/29: According to has been patient is extremely weak, fatigued, not acting like herself. Per provider progress notes: 77-year-old female presents to the hospital with confusion, increased lethargy. Other indicators/risk factors: Patient being treated for acute UTI Patient with persistent gram-positive bacteremia Based on the above, could you clarify in the Progress Notes which, if any of the following, is the most likely etiology of the confusion/altered mental status? * Encephalopathy - indicate type such as metabolic, toxic, etc. * Other etiology (please specify) * Unable to determine Use of terms such as suspected, likely, concern for, or probable (associated with a specific diagnosis that is being evaluated, monitored, or treated as if it exists) are acceptable and can be coded in the inpatient setting, when documented at the time of discharge. Thank you, Sandie Yanez MS, RN, CCRN Extension: [phone] Please use your independent medical judgment in providing your response. THIS QUERY IS PART OF THE PERMANENT MEDICAL RECORD Provider Response: Other Other Diagnosis: no encephalopathy
--- NOTE | 2022-11-02 11:15 | P.CDIC_ITS ---
CDI Concurrent Query Documentation Clarification: PHYSICIAN'S DOCUMENTATION REQUEST Date of Query: 11/02/22 1116 Patient Name: Kaitlin Ortiz Admit Date: 10/30/22 Dear Doctor, A review of the medical record indicates additional documentation may be needed. Please review below and update the documentation accordingly. Clinical Indicators: Is there a diagnosis that correlates with the findings below: Risk Factors/Clinical Indicators/Treatments POA/TREAT/RESOLVED/RULE OUT Labs: WBCs on 10/30 - 12.9 Blood cultures on 10/31 & 11/01 - (+) for gram- positive cocci / sets Other indicators/risk factors: Patient with acute UTI Patient with persistent bacteremia Patient receiving Daptomycin Based on the above information and the recognized standard for sepsis, could you please clarify in the Progress Notes if this diagnoses is still accurate and reflective of the patient's condition to ensure quality of the medical record. * Sepsis is/was present and is a clinical diagnosis based on (please include this additional support in the medical record) * After study (the condition) has been ruled out * Other (please specify) * Unable to determine Use of terms such as suspected, likely, concern for, or probable (associated with a specific diagnosis that is being evaluated, monitored, or treated as if it exists) are acceptable and can be coded in the inpatient setting, when documented at the time of discharge. Thank you, Sandie Yanez MS, RN, CCRN Extension: [phone] Please use your independent medical judgment in providing your response. THIS QUERY IS PART OF THE PERMANENT MEDICAL RECORD Provider Response: Other Other Diagnosis: sepsis
[2022-11-02 11:27] LABS: Glucose, Whole Blood 337 mg/dL (60-115)
[2022-11-02] MEDS: oxyCODONE HCl Immed Release 5 MG TABLET PO (11:28)
[2022-11-02 11:46] VITALS: BP 142/77; PULSE 72; O2SAT 96
[2022-11-02] MEDS: DAPTOmycin 575 MG in 0.9 % Sodium Chloride 50 ML 123 MG IV (11:49)
--- NOTE | 2022-11-02 13:12 | HO.PM.IMPN ---
Subjective Subjective Date of Service: 11/02/22 Interval History: enterococcus bacteremia Review of Systems Denies any chest pain or shortness of breath or abdominal pain or fever chills or cough or phlegm. Physical Exam Vital Signs: Vital Signs: Last Vital Signs Temp 97.9 F 11/02/22 07:22 Pulse 72 11/02/22 11:46 Resp 19 11/02/22 07:22 BP 142/77 H 11/02/22 11:46 Pulse Ox 96 11/02/22 11:46 O2 Del Method 11/02/22 07:22 BMI result Body Mass Index 34.1 Appearance: Alert.? Oriented X3.? not in distress.?. cvs: rrr, [id number] , no murmur res: clear to auscultation ,no rhonchii or wheezing abd: no rebound or guarding ,has suprapubid mild disconfort, bs present. ext pulses present , no cyanosis . neuro: axo3 , nonfocal. Objective Data Active Medications Acetaminophen (Acetaminophen 325 Mg Tablet) 650 mg PO Q6H PRN PRN Reason: Pain, Mild (Pain Scale 1-3) Last Admin: 11/01/22 18:29 Dose: 650 mg Documented By: JUSTIN Amlodipine Besylate (Amlodipine Besylate 10 Mg Tablet) 10 mg PO DAILY [facility]; Protocol Last Admin: 11/02/22 08:09 Dose: 10 mg Documented By: NATACHA Ascorbic Acid (Ascorbic Acid 500 Mg Tablet) 500 mg PO BID [facility] Last Admin: 11/02/22 08:10 Dose: 500 mg Documented By: NATACHA Aspirin (Aspirin Enteric Coated 81 Mg Tablet.) 81 mg PO DAILY [facility] Last Admin: 11/02/22 08:09 Dose: 81 mg Documented By: NATACHA Atorvastatin Calcium (Atorvastatin Calcium 80 Mg Tablet) 80 mg PO BEDTIME [facility] Last Admin: 11/01/22 21:27 Dose: 80 mg Documented By: PRAMOD Carvedilol (Carvedilol 25 Mg Tablet) 25 mg PO BID [facility]; Protocol Last Admin: 11/02/22 08:08 Dose: 25 mg Documented By: NATACHA Cyclobenzaprine HCl (Cyclobenzaprine Hcl 5 Mg Tablet) 5 mg PO BEDTIME PRN PRN Reason: Insomnia/Muscle spasms Dextrose (Dextrose 50 % 25 Gm/50 Ml Syringe) 25 gm IVPUSH Q15M PRN; Protocol PRN Reason: per Hypoglycemia Standing Ord. Docusate Sodium (Docusate Sodium 100 Mg Capsule) 100 mg PO DAILY PRN PRN Reason: Constipation Duloxetine HCl (Duloxetine Hcl 60 Mg Capsule.) 60 mg PO DAILY [facility] Last Admin: 11/02/22 08:09 Dose: 60 mg Documented By: NATACHA Escitalopram Oxalate (Escitalopram Oxalate 10 Mg Tablet) 10 mg PO DAILY [facility] Last Admin: 11/02/22 08:09 Dose: 10 mg Documented By: NATACHA Famotidine (Famotidine 20 Mg Tablet) 40 mg PO BEDTIME [facility] Last Admin: 11/01/22 21:27 Dose: 40 mg Documented By: PRAMOD Ferrous Sulfate (Ferrous Sulfate 324 Mg Tablet.) 324 mg PO DAILY [facility] Last Admin: 11/02/22 08:09 Dose: 324 mg Documented By: NATACHA Furosemide (Furosemide 40 Mg Tablet) 40 mg PO DAILY [facility]; Protocol Last Admin: 11/02/22 08:09 Dose: 40 mg Documented By: NATACHA Glucose (Glucose Gel 15 Gm Gel..Gram.) 15 gm PO Q15M PRN; Protocol PRN Reason: per Hypoglycemia Standing Ord. Hydralazine HCl (Hydralazine Hcl 25 Mg Tablet) 25 mg PO TID [facility]; Protocol Last Admin: 11/02/22 08:09 Dose: 25 mg Documented By: NATACHA Daptomycin 575 mg/ Sodium (Chloride) 61.5 mls @ 123 mls/hr IV Q24H [facility] Last Infusion: 11/02/22 12:45 Dose: 0 mls/hr Documented By: NATACHA Insulin Human Lispro (Insulin Lispro 100 Unit/Ml 3 Ml Vial) 0 unit SUBCUT QIDACHS [facility]; Protocol Last Admin: 11/02/22 11:49 Dose: 10 unit Documented By: NATACHA Lorazepam (Lorazepam 0.5 Mg Tablet) 0.5 mg PO Q8H PRN PRN Reason: anxiety Last Admin: 10/31/22 22:56 Dose: 0.5 mg Documented By: EMMANUEL-ALMAS Non-Formulary Medication (Sulindac) 150 mg PO BID [facility] Pt Own (Ibrutinib [ Imbruvica] 420 Mg Tablet) 420 mg PO DAILY [facility] Last Admin: 11/02/22 08:10 Dose: 420 mg Documented By: NATACHA Omeprazole (Omeprazole 20 Mg Capsule.) 20 mg PO DAILY [facility] Last Admin: 11/02/22 08:09 Dose: 20 mg Documented By: NATACHA Ondansetron HCl (Ondansetron Hcl 4 Mg/2 Ml Vial) 4 mg IVPUSH Q8H PRN PRN Reason: Nausea and Vomiting Last Admin: 10/29/22 22:18 Dose: 4 mg Documented By: EMMANUEL-MILLICENT Oxycodone HCl (Oxycodone Hcl Immed Release 5 Mg Tablet) 5 mg PO BID PRN PRN Reason: Pain, Severe (Pain Scale 7-10) Last Admin: 11/02/22 11:28 Dose: 5 mg Documented By: NATACHA Pregabalin (Pregabalin 150 Mg Capsule) 150 mg PO BID [facility] Last Admin: 11/02/22 08:09 Dose: 150 mg Documented By: NATACHA Senna (Sennosides 8.6 Mg Tablet) 17.2 mg PO BEDTIME PRN PRN Reason: CONSTIPATION Sitagliptin Phosphate (Sitagliptin Phosphate 100 Mg Tablet) 100 mg PO DAILY [facility] Last Admin: 11/02/22 08:09 Dose: 100 mg Documented By: NATACHA Sodium Chloride (0.9 % Sodium Chloride Flush 3 Ml Syringe) 3 ml IVFLUSH QSHIFT [facility] Last Admin: 11/02/22 08:12 Dose: 3 ml Documented By: NATACHA Spironolactone (Spironolactone 25 Mg Tablet) 25 mg PO DAILY [facility]; Protocol Last Admin: 11/02/22 08:09 Dose: 25 mg Documented By: NATACHA Tolterodine Tartrate (Tolterodine Tartrate La 4 Mg Cap.Er.24h) 4 mg PO DAILY [facility] Last Admin: 11/02/22 08:08 Dose: 4 mg Documented By: NATACHA Labs 10/30/22 04:17 11/02/22 06:00 Labs: Laboratory Results - last 24 hr 11/01/22 11/01/22 11/02/22 16:37 20:14 06:00 Estim Creat Clear Calc 55.6 Estimated GFR 56 POC Glucose 204 H 207 H 11/02/22 11/02/22 07:20 11:17 Estim Creat Clear Calc Estimated GFR POC Glucose 189 H 337 H Microbiology Microbiology Results: Microbiology 11/01/22 00:39 Blood Culture - Preliminary Blood - Venous Enterococcus/Streptococcus sp 10/31/22 08:31 Blood Culture - Preliminary Blood - Venous Enterococcus/Streptococcus sp 10/31/22 08:27 Blood Culture - Preliminary Blood - Venous Enterococcus/Streptococcus sp 10/29/22 18:40 Urine Culture - Preliminary Urine Catheterized - Henao Catheter Soniya parapsilosis Gram negative elvira 11/01/22 00:39 Blood Culture - Preliminary Blood - Venous Prelim: GPC Gram Stain only 10/29/22 17:54 Blood Culture - Final Blood - Venous Enterococcus faecalis 10/29/22 17:44 Blood Culture - Final Blood - Venous Enterococcus faecalis Assessment and Plan (1) Hyperglycemia: Status: Acute (2) Gram-positive bacteremia: Status: Acute Plan 77-year-old female with multiple past medical history as well as multiple allergies to many antibiotics presents to the hospital with confusion, increased lethargy found to have acute UTI failed outpatient therapy possible sepsis -due to acute UTI/ gram positive enterococcus /streptococcus blood cultures-enterococcus /streptococcus urine cultures: soniya parapsilosis/gram neg elvira s/p suprapubic tube change and office cysto by Dr. Hayes on 09/04/22 Urine culture growing Enterococcus faecalis CT scan negative for any obstruction, pyelonephritis ?iv vanco chnaged to daptomycin for Enterococcus faecalis Urology eval added. ? diabetes with hyperglycemia Continue adjusted sliding scale insulin diabetic diet hold oral anti hypoglycemics ? hypertension stable continue home? antihypertensives morbid obesity:? Encouraged to lose weight. Thrombocytopenia: Seems chronic. not due to sepsis. ?DVT prophylaxis:? scd due to Thrombocytopenia. Pt evalwill need home pt on discharge. ?inpatient need: sepsis/ uti /bacteremia-needs iv antibiotics therapy, blood culture persistently positive Enterococcus,need to have clear blood cultures before further dispo plananin Time Spent With Patient Time: Total time managing care of this patient today ____ minutes. Quality Stroke Does the patient have a stroke diagnosis?: No VTE Prior VTE?: No VTE Risk Level:: Medical - moderate - high VTE Device Contraindication: Treatment Not Indicated VTE Drug Contraindication: N/A - Med Ordered
--- NOTE | 2022-11-02 14:48 | MHC.CM.PN ---
PLAN IS HERE OVER THE WEEKEND. CURRENTLY AWAITING SECOND SET OF CULTURES AND PLAN FOR TREATMENT EVENTUAL PLAN: HOME WITH LISBETH GAITAN
[2022-11-02 15:51] VITALS: BP 157/76; PULSE 70; RESP 18; TEMP 36.6; O2SAT 94
[2022-11-02 15:59] LABS: Glucose, Whole Blood 250 mg/dL (60-115)
[2022-11-02 19:16] VITALS: BP 150/74; PULSE 89; RESP 18; TEMP 37.1; O2SAT 98
[2022-11-02] MEDS: Famotidine 20 MG TABLET 40 MG PO (19:50)
[2022-11-02] MEDS: Atorvastatin Calcium 80 MG TABLET PO (19:50)
[2022-11-02] MEDS: Docusate Sodium 100 MG CAPSULE PO (19:53)
[2022-11-02 20:32] LABS: Glucose, Whole Blood 271 mg/dL (60-115)
[2022-11-02 21:03] VITALS: PULSE 76; RESP 20; O2SAT 94
--- NOTE | 2022-11-02 22:37 | P.CNID_ITS ---
History of Present Illness Data of Consult Service Date: 11/02/22 Requesting physician: Reese Bautista Primary Care Provider: Ricardo Breen MD HPI Reason for consult: persistent bacteremia She presents with one week abdominal discomfort and malaise. She has suprapubic catheter in place for a year. She has had enterococcus faecalis in past urine and now has enterococcal bacteremia. She has not changed catheter since six weeks. Review of Systems Review of Systems: Yes all other systems are reviewed and are negative PMFSH Past Medical History Medical History Allergy to multiple antibiotics Anemia Arthritis CLL (chronic lymphocytic leukemia) CLL (chronic lymphocytic leukemia) Depression Diabetes mellitus Fibromyalgia History of bilateral breast cancer History of blood transfusion History of CVA (cerebrovascular accident) History of numbness Hypercholesterolemia Hypertension PONV (postoperative nausea and vomiting) Seasonal allergies Self-catheterizes urinary bladder Sleep apnea Type 2 diabetes mellitus with unspecified complications Wears dentures Family History Family History Mother Breast cancer Father Heart disease Father Lung cancer Mother Colon cancer Brother Pancreatic cancer Family history: reviewed and not pertinent Surgical History Surgical History History of back surgery History of biopsy of bladder History of bladder repair surgery History of esophagogastroduodenoscopy (EGD) History of suprapubic catheter History of total hysterectomy Hx of colonoscopy S/P Botox injection S/P breast biopsy, right S/P left breast biopsy Social History Social History Household Members: Significant Other Housing: House Are you a primary memory care program director to a significant other at home: No Do you presently have visiting nurse or other home services: No Alcohol intake: never Patient Tobacco Use Status: Never used Tobacco Smoked in Last 30 Days: No Use of substances other than those prescribed or required for medical reasons: No Currently Displaying Signs/Symptoms of Drug Intoxication Withdrawal: No Have you been hit, kicked, punched, or otherwise hurt by someone within the past year? If so, by whom?: No Do you feel safe in your current relationship?: Yes Is there a partner from a previous relationship who is making you feel unsafe now?: No Are you made to feel afraid or neglected: No Advance Directives: Yes Advance Directives on File: Yes Advance Directives Date on File: 04/11/22 Do you have thoughts of harming others: None Do you have a plan to hurt others: No Plan Patient : No service: No Current occupational status: retired Meds Allergies Allergy/AdvReac Type Severity Reaction Status Date / Time amoxicillin [AMOXICILLIN] Allergy Severe stroke, Verified 09/19/22 12:02 blood clots ciprofloxacin [From CIPRO] Allergy Severe ANAPHYLAXIS Verified 09/19/22 12:02 Iodinated Contrast Media Allergy Severe HIVES Verified 09/19/22 12:02 [IV DYE, IODINE CONTAINING CONTRAST ] levofloxacin Allergy Severe Anaphylaxis Verified 09/19/22 12:02 liraglutide Allergy Severe Headache Verified 09/19/22 12:02 Penicillins Allergy Severe stroke, Verified 09/19/22 12:02 blood clots phenazopyridine [Pyridium] Allergy Severe Anaphylaxis Verified 09/19/22 12:02 FREYA Inhibitors Allergy Intermediate Cough Verified 09/19/22 12:02 ARB-Angiotensin Receptor Allergy Intermediate Cough Verified 09/19/22 12:02 Antagonist atorvastatin Allergy Intermediate Shortness Verified 09/19/22 12:02 of Breath cefpodoxime Allergy Intermediate Dizziness, Verified 09/19/22 12:02 nausea celecoxib [From CELEBREX] Allergy Intermediate HIVES Verified 09/19/22 12:02 doxazosin Allergy Intermediate Shortness Verified 09/19/22 12:02 of Breath fluticasone [Advair Diskus] Allergy Intermediate Anxiety Verified 09/19/22 12:02 gabapentin [From Neurontin] Allergy Intermediate Headache Verified 09/19/22 12:02 hydralazine Allergy Intermediate Shortness Verified 09/19/22 12:02 of Breath latex Allergy Intermediate Hives Verified 09/19/22 12:02 linezolid Allergy Intermediate Nausea and Verified 09/19/22 12:02 Vomiting meloxicam Allergy Intermediate Unknown Verified 09/19/22 12:02 salmeterol [Advair Diskus] Allergy Intermediate Anxiety Verified 09/19/22 12:02 Tetanus Vaccines and Toxoid Allergy Intermediate Swelling Verified 09/19/22 12:02 torsemide Allergy Intermediate Shortness Verified 09/19/22 12:02 of Breath cephalexin [Keflex] Allergy Mild Nausea Verified 09/19/22 12:02 Active Medications: Current Medications Acetaminophen (Acetaminophen 325 Mg Tablet) 650 mg PO Q6H PRN PRN Reason: Pain, Mild (Pain Scale 1-3) Last Admin: 11/01/22 18:29 Dose: 650 mg Amlodipine Besylate (Amlodipine Besylate 10 Mg Tablet) 10 mg PO DAILY [facility]; Protocol Last Admin: 11/02/22 08:09 Dose: 10 mg Ascorbic Acid (Ascorbic Acid 500 Mg Tablet) 500 mg PO BID [facility] Last Admin: 11/02/22 19:50 Dose: 500 mg Aspirin (Aspirin Enteric Coated 81 Mg Tablet.) 81 mg PO DAILY [facility] Last Admin: 11/02/22 08:09 Dose: 81 mg Atorvastatin Calcium (Atorvastatin Calcium 80 Mg Tablet) 80 mg PO BEDTIME [facility] Last Admin: 11/02/22 19:50 Dose: 80 mg Carvedilol (Carvedilol 25 Mg Tablet) 25 mg PO BID [facility]; Protocol Last Admin: 11/02/22 19:50 Dose: 25 mg Cyclobenzaprine HCl (Cyclobenzaprine Hcl 5 Mg Tablet) 5 mg PO BEDTIME PRN PRN Reason: Insomnia/Muscle spasms Dextrose (Dextrose 50 % 25 Gm/50 Ml Syringe) 25 gm IVPUSH Q15M PRN; Protocol PRN Reason: per Hypoglycemia Standing Ord. Docusate Sodium (Docusate Sodium 100 Mg Capsule) 100 mg PO DAILY PRN PRN Reason: Constipation Last Admin: 11/02/22 19:53 Dose: 100 mg Duloxetine HCl (Duloxetine Hcl 60 Mg Capsule.) 60 mg PO DAILY [facility] Last Admin: 11/02/22 08:09 Dose: 60 mg Escitalopram Oxalate (Escitalopram Oxalate 10 Mg Tablet) 10 mg PO DAILY [facility] Last Admin: 11/02/22 08:09 Dose: 10 mg Famotidine (Famotidine 20 Mg Tablet) 40 mg PO BEDTIME [facility] Last Admin: 11/02/22 19:50 Dose: 40 mg Ferrous Sulfate (Ferrous Sulfate 324 Mg Tablet.) 324 mg PO DAILY [facility] Last Admin: 11/02/22 08:09 Dose: 324 mg Furosemide (Furosemide 40 Mg Tablet) 40 mg PO DAILY [facility]; Protocol Last Admin: 11/02/22 08:09 Dose: 40 mg Glucose (Glucose Gel 15 Gm Gel..Gram.) 15 gm PO Q15M PRN; Protocol PRN Reason: per Hypoglycemia Standing Ord. Hydralazine HCl (Hydralazine Hcl 25 Mg Tablet) 25 mg PO TID [facility]; Protocol Last Admin: 11/02/22 19:50 Dose: 25 mg Daptomycin 575 mg/ Sodium (Chloride) 61.5 mls @ 123 mls/hr IV Q24H [facility] Last Infusion: 11/02/22 12:45 Dose: Infused Insulin Human Lispro (Insulin Lispro 100 Unit/Ml 3 Ml Vial) 0 unit SUBCUT QIDACHS [facility]; Protocol Last Admin: 11/02/22 20:51 Dose: 6 unit Lorazepam (Lorazepam 0.5 Mg Tablet) 0.5 mg PO Q8H PRN PRN Reason: anxiety Last Admin: 10/31/22 22:56 Dose: 0.5 mg Non-Formulary Medication (Sulindac) 150 mg PO BID [facility] Pt Own (Ibrutinib [ Imbruvica] 420 Mg Tablet) 420 mg PO DAILY [facility] Last Admin: 11/02/22 08:10 Dose: 420 mg Omeprazole (Omeprazole 20 Mg Capsule.Dr) 20 mg PO DAILY [facility] Last Admin: 11/02/22 08:09 Dose: 20 mg Ondansetron HCl (Ondansetron Hcl 4 Mg/2 Ml Vial) 4 mg IVPUSH Q8H PRN PRN Reason: Nausea and Vomiting Last Admin: 10/29/22 22:18 Dose: 4 mg Oxycodone HCl (Oxycodone Hcl Immed Release 5 Mg Tablet) 5 mg PO BID PRN PRN Reason: Pain, Severe (Pain Scale 7-10) Last Admin: 11/02/22 11:28 Dose: 5 mg Pregabalin (Pregabalin 150 Mg Capsule) 150 mg PO BID [facility] Last Admin: 11/02/22 19:50 Dose: 150 mg Senna (Sennosides 8.6 Mg Tablet) 17.2 mg PO BEDTIME PRN PRN Reason: CONSTIPATION Sitagliptin Phosphate (Sitagliptin Phosphate 100 Mg Tablet) 100 mg PO DAILY [facility] Last Admin: 11/02/22 08:09 Dose: 100 mg Sodium Chloride (0.9 % Sodium Chloride Flush 3 Ml Syringe) 3 ml IVFLUSH QSHIFT [facility] Last Admin: 11/02/22 15:40 Dose: 3 ml Spironolactone (Spironolactone 25 Mg Tablet) 25 mg PO DAILY [facility]; Protocol Last Admin: 11/02/22 08:09 Dose: 25 mg Tolterodine Tartrate (Tolterodine Tartrate La 4 Mg Cap.Er.24h) 4 mg PO DAILY [facility] Last Admin: 11/02/22 08:08 Dose: 4 mg Home Medications Medication Instructions Recorded Confirmed Last Taken Type citalopram 20 mg tablet 20 mg PO DAILY 07/21/20 10/29/22 04/16/22 History cyclobenzaprine 5 mg tablet 5 mg PO BEDTIME PRN 07/21/20 10/29/22 Unknown History Insomnia/Muscle spasms duloxetine 60 mg capsule,delayed 60 mg PO DAILY 07/21/20 10/29/22 04/16/22 History release spironolactone 25 mg tablet 25 mg PO DAILY 07/21/20 10/29/22 Unknown History amlodipine 10 mg tablet 10 mg PO DAILY 03/23/21 10/29/22 04/16/22 History metformin 1,000 mg tablet 1,000 mg PO BID 04/19/21 10/29/22 Unknown History carvedilol 25 mg tablet 25 mg PO BID 05/31/21 10/29/22 04/16/22 History pregabalin 150 mg capsule 150 mg PO BID 07/27/21 10/29/22 04/16/22 History sulindac 150 mg tablet 150 mg PO BID 07/27/21 10/29/22 04/15/22 History sitagliptin phosphate 100 mg 100 mg PO QAM 08/21/22 10/29/22 Unknown History tablet (Januvia) furosemide 20 mg tablet 40 mg PO QAM 08/27/22 10/29/22 Unknown History blood sugar diagnostic (Accu-Chek #10 ea 09/04/22 Unknown History Guide test strips) hydralazine 25 mg tablet 25 mg PO TID 09/04/22 10/29/22 Unknown History ibrutinib 420 mg tablet (Imbruvica) 420 mg PO DAILY 10/30/22 10/30/22 Unknown History lorazepam 0.5 mg tablet 1 tab PO Q8H PRN anxiety 10/30/22 10/30/22 Unknown History nitrofurantoin macrocrystal 100 mg 100 mg PO BID 10/30/22 10/30/22 Unknown History capsule sennosides 8.6 mg tablet (senna) 17.2 mg PO BEDTIME PRN Constipation 10/30/22 10/30/22 Unknown History Physical Exam Vital Signs: Vital Signs: Last Vital Signs Temp 98.7 F 11/02/22 19:16 Pulse 89 11/02/22 19:16 Resp 20 11/02/22 21:03 BP 150/74 H 11/02/22 19:16 Pulse Ox 98 11/02/22 19:16 O2 Del Method 11/02/22 19:16 BMI result Body Mass Index 34.1 Const: General: cooperative HEENT: Head: Yes normal to inspection Face and sinus: Yes normal facial exam Mouth: Normal oral and palatal mucosa present Teeth and gingiva: dentition normal Eyes: General: appearance normal, both eyes and all related structures Pupils: Equal, round and reactive pupils present Resp: Effort & Inspection: normal respiratory effort Cardio: Rate: regular rate Rhythm: regular rhythm GI: Palpation (GI): Soft to palpation and nontender : General: Yes no CVA tenderness Back/Spine/Pelvis: Back: no CVA tenderness Skin: Other: suprapubic catheter General skin exam: no rashes or lesions noted Neuro: General: moves all extremities Cranial nerves: Yes Equal, round and reactive pupils present Extrem: General: Yes normal to inspection Psych: Appearance: grossly normal Results Labs 10/30/22 04:17 11/02/22 06:00 Labs: BMP 11/02/22 06:00 Creatinine 0.97 Cardiac Enzymes 11/02/22 Range/Units 17:18 Total Creatine Kinase 30 (26-140) U/L Microbiology Microbiology Results: Microbiology 11/01/22 00:39 Blood - Venous Blood Culture - Preliminary Enterococcus/Streptococcus sp 10/31/22 08:31 Blood - Venous Blood Culture - Preliminary Enterococcus/Streptococcus sp 10/31/22 08:27 Blood - Venous Blood Culture - Preliminary Enterococcus/Streptococcus sp 10/29/22 18:40 Urine Catheterized - Henao Catheter Urine Culture - Preliminary Yessica parapsilosis Gram negative elvira 11/01/22 00:39 Blood - Venous Blood Culture - Preliminary Prelim: GPC Gram Stain only 10/29/22 17:54 Blood - Venous Blood Culture - Final Enterococcus faecalis 10/29/22 17:44 Blood - Venous Blood Culture - Final Enterococcus faecalis Assessment and Plan (1) Gram-positive bacteremia: Status: Acute She has enterococcus bacteremia that is persistent. This is likely due to urinary infection from suprapubic catheter. Catheter changed yesterday, All- Amoxicillin,Cipro,PCN,cephalosporins,linezolid (2) Leukocytosis: Status: Acute (3) Complicated UTI (urinary tract infection): Status: Acute Plan Continue Daptomycin. Recheck CPK. Check blood cultures Saturday,11/05. [place] if persistent bacteremia. Time Spent With Patient Time: Total time managing care of this patient today ____ minutes.
[2022-11-03 04:00] VITALS: BP 142/59; PULSE 73; RESP 18; TEMP 36.8; O2SAT 98
[2022-11-03 06:38] LABS: Creatinine Clr Calc Pharmacy 54.5; Estimated Glomerular Filt Rate 55
[2022-11-03 07:20] VITALS: BP 158/72; PULSE 70; RESP 19; TEMP 36.4; O2SAT 96
[2022-11-03 07:25] LABS: Glucose, Whole Blood 228 mg/dL (60-115)
[2022-11-03] MEDS: Tolterodine Tartrate LA 4 MG CAP.ER.24H PO (08:08)
[2022-11-03] MEDS: DULoxetine HCl 60 MG CAPSULE.DR PO (08:09)
[2022-11-03] MEDS: Escitalopram Oxalate 10 MG TABLET PO (08:09)
[2022-11-03] MEDS: Omeprazole 20 MG CAPSULE.DR PO (08:09)
[2022-11-03] MEDS: Aspirin Enteric Coated 81 MG TABLET.DR PO (08:09)
[2022-11-03] MEDS: Pregabalin 150 MG CAPSULE PO (08:09)
[2022-11-03] MEDS: Furosemide 40 MG TABLET PO (08:09)
[2022-11-03] MEDS: Spironolactone 25 MG TABLET PO (08:09)
[2022-11-03] MEDS: Ferrous Sulfate 324 MG TABLET.DR PO (08:09)
[2022-11-03] MEDS: hydrALAZINE HCl 25 MG TABLET PO ×3 (08:09→21:02)
[2022-11-03] MEDS: amLODIPine Besylate 10 MG TABLET PO (08:10)
[2022-11-03] MEDS: Ascorbic Acid 500 MG TABLET PO ×2 (08:10→21:02)
[2022-11-03] MEDS: Insulin Lispro 100 UNIT/ML 3 ML VIAL SUBCUT ×4 (08:10→21:03)
[2022-11-03] MEDS: carvediloL 25 MG TABLET PO ×2 (08:10→21:02)
[2022-11-03] MEDS: SITagliptin Phosphate 100 MG TABLET PO (08:10)
[2022-11-03] MEDS: 0.9 % Sodium Chloride Flush 3 ML SYRINGE IVFLUSH ×2 (08:11→17:24)
[2022-11-03] MEDS: oxyCODONE HCl Immed Release 5 MG TABLET PO ×2 (08:26→21:02)
--- NOTE | 2022-11-03 10:58 | P.PNIM_ITS ---
Subjective Subjective Date of Service: 11/03/22 Interval History: enterococcus bacteremia Review of Systems Denies any chest pain or shortness of breath or abdominal pain or fever chills or cough or phlegm. Physical Exam Vital Signs: Vital Signs: Last Vital Signs Temp 97.6 F 11/03/22 07:20 Pulse 70 11/03/22 07:20 Resp 19 11/03/22 07:20 BP 158/72 H 11/03/22 07:20 Pulse Ox 96 11/03/22 07:20 O2 Del Method 11/03/22 07:20 BMI result Body Mass Index 34.1 Appearance: Alert.? Oriented X3.? not in distress.?. cvs: rrr, [id number] , no murmur res: clear to auscultation ,no rhonchii or wheezing abd: no rebound or guarding ,has suprapubid mild disconfort, bs present. ext pulses present , no cyanosis . neuro: axo3 , nonfocal. Objective Data Active Medications Acetaminophen (Acetaminophen 325 Mg Tablet) 650 mg PO Q6H PRN PRN Reason: Pain, Mild (Pain Scale 1-3) Last Admin: 11/01/22 18:29 Dose: 650 mg Documented By: JUSTIN Amlodipine Besylate (Amlodipine Besylate 10 Mg Tablet) 10 mg PO DAILY [facility]; Protocol Last Admin: 11/03/22 08:10 Dose: 10 mg Documented By: TOAN Ascorbic Acid (Ascorbic Acid 500 Mg Tablet) 500 mg PO BID [facility] Last Admin: 11/03/22 08:10 Dose: 500 mg Documented By: TOAN Aspirin (Aspirin Enteric Coated 81 Mg Tablet.) 81 mg PO DAILY [facility] Last Admin: 11/03/22 08:09 Dose: 81 mg Documented By: TOAN Atorvastatin Calcium (Atorvastatin Calcium 80 Mg Tablet) 80 mg PO BEDTIME [facility] Last Admin: 11/02/22 19:50 Dose: 80 mg Documented By: AC Carvedilol (Carvedilol 25 Mg Tablet) 25 mg PO BID [facility]; Protocol Last Admin: 11/03/22 08:10 Dose: 25 mg Documented By: TOAN Cyclobenzaprine HCl (Cyclobenzaprine Hcl 5 Mg Tablet) 5 mg PO BEDTIME PRN PRN Reason: Insomnia/Muscle spasms Dextrose (Dextrose 50 % 25 Gm/50 Ml Syringe) 25 gm IVPUSH Q15M PRN; Protocol PRN Reason: per Hypoglycemia Standing Ord. Docusate Sodium (Docusate Sodium 100 Mg Capsule) 100 mg PO DAILY PRN PRN Reason: Constipation Last Admin: 11/02/22 19:53 Dose: 100 mg Documented By: AC Duloxetine HCl (Duloxetine Hcl 60 Mg Capsule.) 60 mg PO DAILY [facility] Last Admin: 11/03/22 08:09 Dose: 60 mg Documented By: TOAN Escitalopram Oxalate (Escitalopram Oxalate 10 Mg Tablet) 10 mg PO DAILY [facility] Last Admin: 11/03/22 08:09 Dose: 10 mg Documented By: TOAN Famotidine (Famotidine 20 Mg Tablet) 40 mg PO BEDTIME [facility] Last Admin: 11/02/22 19:50 Dose: 40 mg Documented By: AC Ferrous Sulfate (Ferrous Sulfate 324 Mg Tablet.) 324 mg PO DAILY [facility] Last Admin: 11/03/22 08:09 Dose: 324 mg Documented By: TOAN Furosemide (Furosemide 40 Mg Tablet) 40 mg PO DAILY [facility]; Protocol Last Admin: 11/03/22 08:09 Dose: 40 mg Documented By: TOAN Glucose (Glucose Gel 15 Gm Gel..Gram.) 15 gm PO Q15M PRN; Protocol PRN Reason: per Hypoglycemia Standing Ord. Hydralazine HCl (Hydralazine Hcl 25 Mg Tablet) 25 mg PO TID [facility]; Protocol Last Admin: 11/03/22 08:09 Dose: 25 mg Documented By: TOAN Daptomycin 575 mg/ Sodium (Chloride) 61.5 mls @ 123 mls/hr IV Q24H [facility] Last Infusion: 11/02/22 12:45 Dose: 0 mls/hr Documented By: NATACHA Insulin Human Lispro (Insulin Lispro 100 Unit/Ml 3 Ml Vial) 0 unit SUBCUT QIDACHS [facility]; Protocol Last Admin: 11/03/22 08:10 Dose: 4 unit Documented By: TOAN Lorazepam (Lorazepam 0.5 Mg Tablet) 0.5 mg PO Q8H PRN PRN Reason: anxiety Last Admin: 10/31/22 22:56 Dose: 0.5 mg Documented By: JAKE Non-Formulary Medication (Sulindac) 150 mg PO BID [facility] Pt Own (Ibrutinib [ Imbruvica] 420 Mg Tablet) 420 mg PO DAILY [facility] Last Admin: 11/03/22 08:12 Dose: 420 mg Documented By: TOAN Omeprazole (Omeprazole 20 Mg Capsule.Dr) 20 mg PO DAILY [facility] Last Admin: 11/03/22 08:09 Dose: 20 mg Documented By: TOAN Ondansetron HCl (Ondansetron Hcl 4 Mg/2 Ml Vial) 4 mg IVPUSH Q8H PRN PRN Reason: Nausea and Vomiting Last Admin: 10/29/22 22:18 Dose: 4 mg Documented By: CHAUNCEY Oxycodone HCl (Oxycodone Hcl Immed Release 5 Mg Tablet) 5 mg PO BID PRN PRN Reason: Pain, Severe (Pain Scale 7-10) Last Admin: 11/03/22 08:26 Dose: 5 mg Documented By: TOAN Pregabalin (Pregabalin 150 Mg Capsule) 150 mg PO BID [facility] Last Admin: 11/03/22 08:09 Dose: 150 mg Documented By: TOAN Senna (Sennosides 8.6 Mg Tablet) 17.2 mg PO BEDTIME PRN PRN Reason: CONSTIPATION Sitagliptin Phosphate (Sitagliptin Phosphate 100 Mg Tablet) 100 mg PO DAILY [facility] Last Admin: 11/03/22 08:10 Dose: 100 mg Documented By: TOAN Sodium Chloride (0.9 % Sodium Chloride Flush 3 Ml Syringe) [facility] Last Admin: 11/03/22 08:11 Dose: 3 ml Documented By: TOAN Spironolactone (Spironolactone 25 Mg Tablet) 25 mg PO DAILY [facility]; Protocol Last Admin: 11/03/22 08:09 Dose: 25 mg Documented By: TOAN Tolterodine Tartrate (Tolterodine Tartrate La 4 Mg Cap.Er.24h) 4 mg PO DAILY [facility] Last Admin: 11/03/22 08:08 Dose: 4 mg Documented By: HO.N-NYANM Labs 10/30/22 04:17 11/03/22 05:25 Labs: Laboratory Results - last 24 hr 11/02/22 11/02/22 11/02/22 11:17 15:53 17:18 Estim Creat Clear Calc Estimated GFR POC Glucose 337 H 250 H Total Creatine Kinase 30 11/02/22 11/03/22 11/03/22 20:22 05:25 07:20 Estim Creat Clear Calc 54.5 Estimated GFR 55 POC Glucose 271 H 228 H Total Creatine Kinase Microbiology Microbiology Results: Microbiology 11/01/22 00:39 Blood Culture - Final Blood - Venous Enterococcus faecalis 11/01/22 00:39 Blood Culture - Final Blood - Venous Coag negative Staphylococcus 10/31/22 08:31 Blood Culture - Final Blood - Venous Enterococcus faecalis 10/31/22 08:27 Blood Culture - Final Blood - Venous Enterococcus faecalis 11/02/22 02:47 Blood Culture - Preliminary Blood - Venous No growth after 24 hours. 11/02/22 02:47 Blood Culture - Preliminary Blood - Venous No growth after 24 hours. 10/29/22 18:40 Urine Culture - Preliminary Urine Catheterized - Henao Catheter Soniya parapsilosis Gram negative elvira Assessment and Plan (1) Hyperglycemia: Status: Acute (2) Gram-positive bacteremia: Status: Acute Plan 77-year-old female with multiple past medical history as well as multiple allergies to many antibiotics presents to the hospital with confusion, increased lethargy found to have acute UTI failed outpatient therapy possible sepsis -due to acute UTI/ gram positive enterococcus /streptococcus blood cultures-enterococcus /streptococcus- repeat blood culture neg@ 24 hrs urine cultures: soniya parapsilosis/gram neg elvira s/p suprapubic tube change and office cysto by Dr. Hayes on 09/04/22 Urine culture growing Enterococcus faecalis CT scan negative for any obstruction, pyelonephritis ?iv vanco chnaged to daptomycin for Enterococcus faecalis-continue daptomycin she was feelin generalsed weak this mornin -in afternoon seems to be improving Id eval ? diabetes with hyperglycemia Continue adjusted sliding scale insulin diabetic diet hold oral anti hypoglycemics ? hypertension stable continue home? antihypertensives morbid obesity:? Encouraged to lose weight. Thrombocytopenia: Seems chronic. not due to sepsis. ?DVT prophylaxis:? scd due to Thrombocytopenia. Pt evalwill need home pt on discharge. ?inpatient need: sepsis/ uti /bacteremia-needs iv antibiotics therapy, blood culture persistently positive Enterococcus,need to have clear blood cultures before further dispo plananin Time Spent With Patient Time: Total time managing care of this patient today ____ minutes. Quality Stroke Does the patient have a stroke diagnosis?: No VTE Prior VTE?: No VTE Risk Level:: Medical - moderate - high VTE Device Contraindication: Treatment Not Indicated VTE Drug Contraindication: N/A - Med Ordered
[2022-11-03 11:19] LABS: Glucose, Whole Blood 229 mg/dL (60-115)
--- NOTE | 2022-11-03 11:59 | HE.PHANOTE ---
Patient own medication Sulindac brought in by was recieved by pharmacy. Med was verified with only 3 tablet left, sent back to floor. If patient stays longer than 2 days, another bottle will need to be brought in. Bushra Ruiz, PharmD
[2022-11-03] MEDS: DAPTOmycin 575 MG in 0.9 % Sodium Chloride 50 ML 123 MG IV (12:02)
[2022-11-03] MEDS: Acetaminophen 325 MG TABLET 650 MG PO (14:44)
[2022-11-03 16:00] VITALS: BP 159/71; PULSE 68; RESP 18; TEMP 36.1; O2SAT 94
[2022-11-03 17:28] LABS: Glucose, Whole Blood 315 mg/dL (60-115)
[2022-11-03 20:00] VITALS: BP 145/59; PULSE 78; RESP 20; TEMP 37.1; O2SAT 95
[2022-11-03] MEDS: Famotidine 20 MG TABLET 40 MG PO (21:01)
[2022-11-03] MEDS: Atorvastatin Calcium 80 MG TABLET PO (21:03)
[2022-11-03 22:06] LABS: Glucose, Whole Blood 337 mg/dL (60-115)
[2022-11-03 22:45] VITALS: PULSE 72; O2SAT 94
[2022-11-04] MEDS: Pregabalin 150 MG CAPSULE PO ×3 (00:06→20:10)
[2022-11-04 04:00] VITALS: BP 140/65; PULSE 61; RESP 18; TEMP 36.2; O2SAT 95
[2022-11-04 04:30] VITALS: PULSE 82; O2SAT 96
[2022-11-04] MEDS: 0.9 % Sodium Chloride Flush 3 ML SYRINGE IVFLUSH ×4 (06:06→23:58)
[2022-11-04 07:25] VITALS: BP 150/72; PULSE 72; RESP 16; TEMP 36.6; O2SAT 94
[2022-11-04 07:32] LABS: Glucose, Whole Blood 284 mg/dL (60-115)
[2022-11-04 07:38] LABS: Creatinine Clr Calc Pharmacy 48.6; Estimated Glomerular Filt Rate 48
[2022-11-04] MEDS: Insulin Lispro 100 UNIT/ML 3 ML VIAL SUBCUT ×4 (08:02→20:50)
[2022-11-04] MEDS: carvediloL 25 MG TABLET PO ×2 (08:04→20:11)
[2022-11-04] MEDS: DULoxetine HCl 60 MG CAPSULE.DR PO (08:04)
[2022-11-04] MEDS: Ascorbic Acid 500 MG TABLET PO ×2 (08:04→20:10)
[2022-11-04] MEDS: Omeprazole 20 MG CAPSULE.DR PO (08:04)
[2022-11-04] MEDS: Aspirin Enteric Coated 81 MG TABLET.DR PO (08:04)
[2022-11-04] MEDS: hydrALAZINE HCl 25 MG TABLET PO ×3 (08:05→20:10)
[2022-11-04] MEDS: amLODIPine Besylate 10 MG TABLET PO (08:05)
[2022-11-04] MEDS: Tolterodine Tartrate LA 4 MG CAP.ER.24H PO (08:05)
[2022-11-04] MEDS: Ferrous Sulfate 324 MG TABLET.DR PO (08:05)
[2022-11-04] MEDS: Escitalopram Oxalate 10 MG TABLET PO (08:06)
[2022-11-04 11:05] LABS: Glucose, Whole Blood 246 mg/dL (60-115)
[2022-11-04] MEDS: oxyCODONE HCl Immed Release 5 MG TABLET PO (13:08)
[2022-11-04] MEDS: DAPTOmycin 575 MG in 0.9 % Sodium Chloride 50 ML 123 MG IV (13:09)
--- NOTE | 2022-11-04 13:42 | HO.PM.IMPN ---
Subjective Subjective Date of Service: 11/04/22 Interval History: enterococcus bacteremia Review of Systems Denies any chest pain or shortness of breath or abdominal pain or fever chills or cough or phlegm. Physical Exam Vital Signs: Vital Signs: Last Vital Signs Temp 98 F 11/04/22 07:25 Pulse 72 11/04/22 07:25 Resp 16 11/04/22 07:25 BP 150/72 H 11/04/22 07:25 Pulse Ox 94 11/04/22 07:25 O2 Del Method 11/04/22 07:25 BMI result Body Mass Index 34.1 Appearance: Alert.? Oriented X3.? not in distress.?. cvs: rrr, [id number] , no murmur res: clear to auscultation ,no rhonchii or wheezing abd: no rebound or guarding ,has suprapubid mild disconfort, bs present. ext pulses present , no cyanosis . neuro: axo3 , nonfocal. Objective Data Active Medications Acetaminophen (Acetaminophen 325 Mg Tablet) 650 mg PO Q6H PRN PRN Reason: Pain, Mild (Pain Scale 1-3) Last Admin: 11/03/22 14:44 Dose: 650 mg Documented By: TOAN Amlodipine Besylate (Amlodipine Besylate 10 Mg Tablet) 10 mg PO DAILY [facility]; Protocol Last Admin: 11/04/22 08:05 Dose: 10 mg Documented By: DARLINE Ascorbic Acid (Ascorbic Acid 500 Mg Tablet) 500 mg PO BID [facility] Last Admin: 11/04/22 08:04 Dose: 500 mg Documented By: DARLINE Aspirin (Aspirin Enteric Coated 81 Mg Tablet.) 81 mg PO DAILY [facility] Last Admin: 11/04/22 08:04 Dose: 81 mg Documented By: DARLINE Atorvastatin Calcium (Atorvastatin Calcium 80 Mg Tablet) 80 mg PO BEDTIME [facility] Last Admin: 11/03/22 21:03 Dose: 80 mg Documented By: TOAN Carvedilol (Carvedilol 25 Mg Tablet) 25 mg PO BID [facility]; Protocol Last Admin: 11/04/22 08:04 Dose: 25 mg Documented By: DARLINE Cyclobenzaprine HCl (Cyclobenzaprine Hcl 5 Mg Tablet) 5 mg PO BEDTIME PRN PRN Reason: Insomnia/Muscle spasms Dextrose (Dextrose 50 % 25 Gm/50 Ml Syringe) 25 gm IVPUSH Q15M PRN; Protocol PRN Reason: per Hypoglycemia Standing Ord. Docusate Sodium (Docusate Sodium 100 Mg Capsule) 100 mg PO DAILY PRN PRN Reason: Constipation Last Admin: 11/02/22 19:53 Dose: 100 mg Documented By: AC Duloxetine HCl (Duloxetine Hcl 60 Mg Capsule.) 60 mg PO DAILY [facility] Last Admin: 11/04/22 08:04 Dose: 60 mg Documented By: DARLINE Escitalopram Oxalate (Escitalopram Oxalate 10 Mg Tablet) 10 mg PO DAILY [facility] Last Admin: 11/04/22 08:06 Dose: 10 mg Documented By: DARLINE Famotidine (Famotidine 20 Mg Tablet) 40 mg PO BEDTIME [facility] Last Admin: 11/03/22 21:01 Dose: 40 mg Documented By: TOAN Ferrous Sulfate (Ferrous Sulfate 324 Mg Tablet.) 324 mg PO DAILY [facility] Last Admin: 11/04/22 08:05 Dose: 324 mg Documented By: DARLINE Furosemide (Furosemide 40 Mg Tablet) 40 mg PO DAILY [facility]; Protocol Last Admin: 11/03/22 08:09 Dose: 40 mg Documented By: TOAN Glucose (Glucose Gel 15 Gm Gel..Gram.) 15 gm PO Q15M PRN; Protocol PRN Reason: per Hypoglycemia Standing Ord. Hydralazine HCl (Hydralazine Hcl 25 Mg Tablet) 25 mg PO TID [facility]; Protocol Last Admin: 11/04/22 08:05 Dose: 25 mg Documented By: DARLINE Daptomycin 575 mg/ Sodium (Chloride) 61.5 mls @ 123 mls/hr IV Q24H [facility] Last Admin: 11/04/22 13:09 Dose: 123 mls/hr Documented By: DARLINE Insulin Human Lispro (Insulin Lispro 100 Unit/Ml 3 Ml Vial) 0 unit SUBCUT QIDACHS [facility]; Protocol Last Admin: 11/04/22 11:49 Dose: 4 unit Documented By: DARLINE Lorazepam (Lorazepam 0.5 Mg Tablet) 0.5 mg PO Q8H PRN PRN Reason: anxiety Last Admin: 10/31/22 22:56 Dose: 0.5 mg Documented By: JAKE Pt Own (Sulindac 150 (Mg Tablet)) 150 mg PO BID [facility] Last Admin: 11/03/22 22:22 Dose: Not Given Documented By: OTAN Non-Admin Reason: Med Not Available Pt Own (Ibrutinib [ Imbruvica] 420 Mg Tablet) 420 mg PO DAILY [facility] Last Admin: 11/04/22 08:06 Dose: 420 mg Documented By: DARLINE Omeprazole (Omeprazole 20 Mg Capsule.) 20 mg PO DAILY [facility] Last Admin: 11/04/22 08:04 Dose: 20 mg Documented By: DARLINE Ondansetron HCl (Ondansetron Hcl 4 Mg/2 Ml Vial) 4 mg IVPUSH Q8H PRN PRN Reason: Nausea and Vomiting Last Admin: 10/29/22 22:18 Dose: 4 mg Documented By: CHAUNCEY Oxycodone HCl (Oxycodone Hcl Immed Release 5 Mg Tablet) 5 mg PO BID PRN PRN Reason: Pain, Severe (Pain Scale 7-10) Last Admin: 11/04/22 13:08 Dose: 5 mg Documented By: DARLINE Pregabalin (Pregabalin 150 Mg Capsule) 150 mg PO BID [facility] Last Admin: 11/04/22 08:05 Dose: 150 mg Documented By: DARLINE Senna (Sennosides 8.6 Mg Tablet) 17.2 mg PO BEDTIME PRN PRN Reason: CONSTIPATION Sitagliptin Phosphate (Sitagliptin Phosphate 100 Mg Tablet) 100 mg PO DAILY [facility] Last Admin: 11/04/22 08:08 Dose: Not Given Documented By: DARLINE Non-Admin Reason: Patient Refused Sodium Chloride (0.9 % Sodium Chloride Flush 3 Ml Syringe) 3 ml IVFLUSH QSHIFT [facility] Last Admin: 11/04/22 08:04 Dose: 3 ml Documented By: DARLINE Spironolactone (Spironolactone 25 Mg Tablet) 25 mg PO DAILY [facility]; Protocol Last Admin: 11/03/22 08:09 Dose: 25 mg Documented By: TOAN Tolterodine Tartrate (Tolterodine Tartrate La 4 Mg Cap.Er.24h) 4 mg PO DAILY [facility] Last Admin: 11/04/22 08:05 Dose: 4 mg Documented By: HO.YOUB Labs 10/30/22 04:17 11/04/22 05:58 Labs: Laboratory Results - last 24 hr 11/03/22 11/03/22 11/04/22 17:15 22:03 05:58 Estim Creat Clear Calc 48.6 Estimated GFR 48 POC Glucose 315 H 337 H 11/04/22 11/04/22 07:27 10:56 Estim Creat Clear Calc Estimated GFR POC Glucose 284 H 246 H Microbiology Microbiology Results: Microbiology 11/02/22 02:47 Blood Culture - Preliminary Blood - Venous Enterococcus/Streptococcus sp 11/02/22 02:47 Blood Culture - Preliminary Blood - Venous No growth after 48 hours. 10/29/22 18:40 Urine Culture - Final Urine Catheterized - Henao Catheter Soniya parapsilosis Achromobacter xylosoxidans Assessment and Plan (1) Hyperglycemia: Status: Acute (2) Morbid obesity: Status: Acute (3) Enterococcal bacteremia: Status: Acute Plan 77-year-old female with multiple past medical history as well as multiple allergies to many antibiotics presents to the hospital with confusion, increased lethargy found to have acute UTI failed outpatient therapy possible sepsis -due to? acute UTI/ gram positive enterococcus /streptococcus blood cultures-enterococcus /streptococcus- repeat blood culture -1/2 blood culture from11/02/22 -grew enterococcus again will add another blood cultures urine cultures: soniya parapsilosis/gram neg elvira. TTE: Conclusions: - The left ventricular systolic function is normal.? The visually estimated ejection fraction is between 55-60%. ? - There is moderately increased left ventricular wall thickness. - There is mild mitral annular calcification.? - No obvious valvular pathology seen on this study.? s/p suprapubic tube change and office cysto by Dr. Hayes on 09/04/22 Urine culture growing Enterococcus faecalis CT scan negative for any obstruction, pyelonephritis Id eval noted -initailly was on vancomycin-which is chnaged to Daptomycin . will recheck cpk,resend blood culture in am,if blood culture positive again -may need cardio eval ? diabetes with hyperglycemia Continue adjusted sliding scale insulin diabetic diet hold oral anti hypoglycemics ? hypertension stable continue home? antihypertensives morbid obesity:? Encouraged to lose weight. Thrombocytopenia: Seems chronic. not due to sepsis. ?DVT prophylaxis:? scd due to Thrombocytopenia. Pt evalwill need home pt on discharge. ?inpatient need: sepsis/ uti /bacteremia-needs iv antibiotics therapy, blood culture persistently positive Enterococcus,need to have clear blood cultures before further dispo planning Time Spent With Patient Time: Total time managing care of this patient today ____ minutes. Quality Stroke Does the patient have a stroke diagnosis?: No VTE Prior VTE?: No VTE Risk Level:: Medical - moderate - high VTE Device Contraindication: Treatment Not Indicated VTE Drug Contraindication: N/A - Med Ordered
[2022-11-04 16:00] VITALS: BP 142/63; PULSE 69; RESP 17; TEMP 36.2; O2SAT 93
[2022-11-04 17:00] LABS: Glucose, Whole Blood 273 mg/dL (60-115)
[2022-11-04 20:00] VITALS: BP 150/72; PULSE 67; TEMP 36.1; O2SAT 95
[2022-11-04] MEDS: Atorvastatin Calcium 80 MG TABLET PO (20:09)
[2022-11-04] MEDS: Famotidine 20 MG TABLET 40 MG PO (20:10)
[2022-11-04 20:45] LABS: Glucose, Whole Blood 314 mg/dL (60-115)
[2022-11-04 23:11] VITALS: PULSE 85; O2SAT 95
[2022-11-05] VITALS (7 sets, daily range): BP systolic 131–165; BP diastolic 64–70; PULSE 63–80; RESP 16–18; TEMP 36.2–36.6; O2SAT 93–95
[2022-11-05 06:58] LABS: Creatinine Clr Calc Pharmacy 54.5; Estimated Glomerular Filt Rate 55
[2022-11-05 07:35] LABS: Glucose, Whole Blood 278 mg/dL (60-115)
[2022-11-05] MEDS: Insulin Lispro 100 UNIT/ML 3 ML VIAL SUBCUT ×4 (09:13→21:23)
[2022-11-05] MEDS: Tolterodine Tartrate LA 4 MG CAP.ER.24H PO (09:16)
[2022-11-05] MEDS: Pregabalin 150 MG CAPSULE PO ×2 (09:16→21:23)
[2022-11-05] MEDS: Docusate Sodium 100 MG CAPSULE PO (09:16)
[2022-11-05] MEDS: DULoxetine HCl 60 MG CAPSULE.DR PO (09:16)
[2022-11-05] MEDS: Ascorbic Acid 500 MG TABLET PO ×2 (09:16→21:23)
[2022-11-05] MEDS: Ferrous Sulfate 324 MG TABLET.DR PO (09:17)
[2022-11-05] MEDS: Aspirin Enteric Coated 81 MG TABLET.DR PO (09:17)
[2022-11-05] MEDS: Omeprazole 20 MG CAPSULE.DR PO (09:17)
[2022-11-05] MEDS: hydrALAZINE HCl 25 MG TABLET PO ×3 (09:17→21:23)
[2022-11-05] MEDS: Escitalopram Oxalate 10 MG TABLET PO (09:18)
[2022-11-05] MEDS: carvediloL 25 MG TABLET PO ×2 (09:21→21:23)
[2022-11-05] MEDS: 0.9 % Sodium Chloride Flush 3 ML SYRINGE IVFLUSH ×3 (09:22→21:25)
[2022-11-05] MEDS: amLODIPine Besylate 10 MG TABLET PO (09:22)
--- NOTE | 2022-11-05 11:09 | P.PNIM_ITS ---
Subjective Subjective Date of Service: 11/05/22 Interval History: enterococcus bacteremia Review of Systems Denies any chest pain or shortness of breath or abdominal pain or fever chills or cough or phlegm. Physical Exam Vital Signs: Vital Signs: Last Vital Signs Temp 97.4 F 11/05/22 07:47 Pulse 65 11/05/22 07:47 Resp 18 11/05/22 07:47 BP 131/64 11/05/22 07:47 Pulse Ox 95 11/05/22 07:47 O2 Del Method 11/05/22 07:47 BMI result Body Mass Index 34.1 ?Appearance: Alert.? Oriented X3.? not in distress.?. cvs: rrr, [id number] . res: clear to auscultation ,no rhonchii or wheezing abd: no rebound or guarding ,has suprapubid mild disconfort, bs present. ext pulses present , no cyanosis . neuro: axo3 , nonfocal. Objective Data Active Medications Acetaminophen (Acetaminophen 325 Mg Tablet) 650 mg PO Q6H PRN PRN Reason: Pain, Mild (Pain Scale 1-3) Last Admin: 11/03/22 14:44 Dose: 650 mg Documented By: TOAN Amlodipine Besylate (Amlodipine Besylate 10 Mg Tablet) 10 mg PO DAILY [facility]; Protocol Last Admin: 11/05/22 09:22 Dose: 10 mg Documented By: ERLIN Ascorbic Acid (Ascorbic Acid 500 Mg Tablet) 500 mg PO BID [facility] Last Admin: 11/05/22 09:16 Dose: 500 mg Documented By: ERLIN Aspirin (Aspirin Enteric Coated 81 Mg Tablet.) 81 mg PO DAILY [facility] Last Admin: 11/05/22 09:17 Dose: 81 mg Documented By: ERLIN Atorvastatin Calcium (Atorvastatin Calcium 80 Mg Tablet) 80 mg PO BEDTIME [facility] Last Admin: 11/04/22 20:09 Dose: 80 mg Documented By: YONNY Carvedilol (Carvedilol 25 Mg Tablet) 25 mg PO BID [facility]; Protocol Last Admin: 11/05/22 09:21 Dose: 25 mg Documented By: ERLIN Cyclobenzaprine HCl (Cyclobenzaprine Hcl 5 Mg Tablet) 5 mg PO BEDTIME PRN PRN Reason: Insomnia/Muscle spasms Dextrose (Dextrose 50 % 25 Gm/50 Ml Syringe) 25 gm IVPUSH Q15M PRN; Protocol PRN Reason: per Hypoglycemia Standing Ord. Docusate Sodium (Docusate Sodium 100 Mg Capsule) 100 mg PO DAILY PRN PRN Reason: Constipation Last Admin: 11/05/22 09:16 Dose: 100 mg Documented By: ERLIN Duloxetine HCl (Duloxetine Hcl 60 Mg Capsule.) 60 mg PO DAILY [facility] Last Admin: 11/05/22 09:16 Dose: 60 mg Documented By: ERLIN Escitalopram Oxalate (Escitalopram Oxalate 10 Mg Tablet) 10 mg PO DAILY [facility] Last Admin: 11/05/22 09:18 Dose: 10 mg Documented By: ERLIN Famotidine (Famotidine 20 Mg Tablet) 40 mg PO BEDTIME [facility] Last Admin: 11/04/22 20:10 Dose: 40 mg Documented By: YONNY Ferrous Sulfate (Ferrous Sulfate 324 Mg Tablet.) 324 mg PO DAILY [facility] Last Admin: 11/05/22 09:17 Dose: 324 mg Documented By: ERLIN Furosemide (Furosemide 40 Mg Tablet) 40 mg PO DAILY [facility]; Protocol Last Admin: 11/03/22 08:09 Dose: 40 mg Documented By: TOAN Glucose (Glucose Gel 15 Gm Gel..Gram.) 15 gm PO Q15M PRN; Protocol PRN Reason: per Hypoglycemia Standing Ord. Hydralazine HCl (Hydralazine Hcl 25 Mg Tablet) 25 mg PO TID [facility]; Protocol Last Admin: 11/05/22 09:17 Dose: 25 mg Documented By: ERLIN Daptomycin 575 mg/ Sodium (Chloride) 61.5 mls @ 123 mls/hr IV Q24H [facility] Last Infusion: 11/04/22 13:49 Dose: 123 mls/hr Documented By: DARLINE Insulin Human Lispro (Insulin Lispro 100 Unit/Ml 3 Ml Vial) 0 unit SUBCUT QIDACHS [facility]; Protocol Last Admin: 11/05/22 09:13 Dose: 6 unit Documented By: ERLIN Lorazepam (Lorazepam 0.5 Mg Tablet) 0.5 mg PO Q8H PRN PRN Reason: anxiety Last Admin: 10/31/22 22:56 Dose: 0.5 mg Documented By: JAKE Pt Own (Sulindac 150 (Mg Tablet)) 150 mg PO BID [facility] Last Admin: 11/03/22 22:22 Dose: Not Given Documented By: TOAN Non-Admin Reason: Med Not Available Pt Own (Ibrutinib [ Imbruvica] 420 Mg Tablet) 420 mg PO DAILY [facility] Last Admin: 11/05/22 09:18 Dose: 420 mg Documented By: ERLIN Omeprazole (Omeprazole 20 Mg Capsule.Dr) 20 mg PO DAILY [facility] Last Admin: 11/05/22 09:17 Dose: 20 mg Documented By: ERLIN Ondansetron HCl (Ondansetron Hcl 4 Mg/2 Ml Vial) 4 mg IVPUSH Q8H PRN PRN Reason: Nausea and Vomiting Last Admin: 10/29/22 22:18 Dose: 4 mg Documented By: CHAUNCEY Oxycodone HCl (Oxycodone Hcl Immed Release 5 Mg Tablet) 5 mg PO BID PRN PRN Reason: Pain, Severe (Pain Scale 7-10) Last Admin: 11/04/22 13:08 Dose: 5 mg Documented By: DARLINE Pregabalin (Pregabalin 150 Mg Capsule) 150 mg PO BID [facility] Last Admin: 11/05/22 09:16 Dose: 150 mg Documented By: ERLIN Senna (Sennosides 8.6 Mg Tablet) 17.2 mg PO BEDTIME PRN PRN Reason: CONSTIPATION Sitagliptin Phosphate (Sitagliptin Phosphate 100 Mg Tablet) 100 mg PO DAILY [facility] Last Admin: 11/05/22 09:17 Dose: Not Given Documented By: ERLIN Non-Admin Reason: Patient Refused Sodium Chloride (0.9 % Sodium Chloride Flush 3 Ml Syringe) 3 ml IVFLUSH QSHIFT [facility] Last Admin: 11/05/22 09:22 Dose: 3 ml Documented By: ERLIN Spironolactone (Spironolactone 25 Mg Tablet) 25 mg PO DAILY [facility]; Protocol Last Admin: 11/03/22 08:09 Dose: 25 mg Documented By: TOAN Tolterodine Tartrate (Tolterodine Tartrate La 4 Mg Cap.Er.24h) 4 mg PO DAILY [facility] Last Admin: 11/05/22 09:16 Dose: 4 mg Documented By: ERLIN Labs 10/30/22 04:17 11/05/22 06:10 Labs: Laboratory Results - last 24 hr 11/04/22 11/04/22 11/04/22 14:32 16:56 20:28 Estim Creat Clear Calc Estimated GFR POC Glucose 273 H 314 H Total Creatine Kinase 34 11/05/22 11/05/22 06:10 07:22 Estim Creat Clear Calc 54.5 Estimated GFR 55 POC Glucose 278 H Total Creatine Kinase Microbiology Microbiology Results: Microbiology 11/02/22 02:47 Blood Culture - Final Blood - Venous Enterococcus faecalis Assessment and Plan (1) Hyperglycemia: Status: Acute (2) Morbid obesity: Status: Acute (3) Enterococcal bacteremia: Status: Acute Plan 77-year-old female with multiple past medical history as well as multiple allergies to many antibiotics presents to the hospital with confusion, increased lethargy found to have acute UTI failed outpatient therapy possible sepsis -due to? acute UTI/ gram positive enterococcus /streptococcus blood cultures-enterococcus /streptococcus- repeat blood culture -1/2 blood culture from11/02/22 -grew enterococcus again will add another blood cultures Urine culture growing Enterococcus faecalis(09/05/22),urine cultures during this admission: soniya parapsilosis,Achromobacter xylosoxidans-10,000 to 50,000 cfu/mL TTE: Conclusions: - The left ventricular systolic function is normal.? The visually estimated ejection fraction is between 55-60%. ? - There is moderately increased left ventricular wall thickness. - There is mild mitral annular calcification.? - No obvious valvular pathology seen on this study.? s/p suprapubic tube change and office cysto by Dr. Hayes on 09/04/22 CT scan negative for any obstruction, pyelonephritis Id eval noted -initailly was on vancomycin-which is chnaged to Daptomycin . will recheck cpk,resend blood culture in am,if blood culture positive again -may need cardio eval ? diabetes with hyperglycemia Continue adjusted sliding scale insulin diabetic diet hold oral anti hypoglycemics ? hypertension stable continue home? antihypertensives morbid obesity:? Encouraged to lose weight. Thrombocytopenia: Seems chronic. not due to sepsis. ?DVT prophylaxis:? scd due to Thrombocytopenia. Pt evalwill need home pt on discharge. ?inpatient need: sepsis/ uti /bacteremia-needs iv antibiotics therapy, blood culture persistently positive Enterococcus,need to have clear blood cultures before further dispo planning Time Spent With Patient Time: Total time managing care of this patient today ____ minutes. Quality Stroke Does the patient have a stroke diagnosis?: No VTE Prior VTE?: No VTE Risk Level:: Medical - moderate - high VTE Device Contraindication: Treatment Not Indicated VTE Drug Contraindication: N/A - Med Ordered
[2022-11-05 11:23] LABS: Glucose, Whole Blood 307 mg/dL (60-115)
[2022-11-05] MEDS: DAPTOmycin 575 MG in 0.9 % Sodium Chloride 50 ML 123 MG IV (11:23)
--- NOTE | 2022-11-05 12:05 | MHC.CM.PN ---
CULTURES STILL (+) EVENTUAL PLAN IS HOME WITH [facility]
[2022-11-05] MEDS: oxyCODONE HCl Immed Release 5 MG TABLET PO (14:06)
[2022-11-05 16:30] LABS: Glucose, Whole Blood 276 mg/dL (60-115)
[2022-11-05 21:12] LABS: Glucose, Whole Blood 269 mg/dL (60-115)
[2022-11-05] MEDS: Atorvastatin Calcium 80 MG TABLET PO (21:23)
[2022-11-05] MEDS: Famotidine 20 MG TABLET 40 MG PO (21:23)
[2022-11-05] MEDS: LORazepam 0.5 MG TABLET PO (22:39)
[2022-11-05] MEDS: Acetaminophen 325 MG TABLET 650 MG PO (22:44)
[2022-11-06] VITALS (7 sets, daily range): BP systolic 129–168; BP diastolic 70–84; PULSE 59–82; RESP 17–18; TEMP 35.9–36.4; O2SAT 94–96
[2022-11-06 06:43] LABS: Estimated Glomerular Filt Rate 48
[2022-11-06 07:42] LABS: Glucose, Whole Blood 254 mg/dL (60-115)
[2022-11-06] MEDS: Insulin Lispro 100 UNIT/ML 3 ML VIAL SUBCUT ×4 (08:06→21:18)
[2022-11-06] MEDS: Aspirin Enteric Coated 81 MG TABLET.DR PO (08:07)
[2022-11-06] MEDS: Pregabalin 150 MG CAPSULE PO ×2 (08:07→21:18)
[2022-11-06] MEDS: 0.9 % Sodium Chloride Flush 3 ML SYRINGE IVFLUSH ×2 (08:07→16:49)
[2022-11-06] MEDS: amLODIPine Besylate 10 MG TABLET PO (08:07)
[2022-11-06] MEDS: carvediloL 25 MG TABLET PO ×2 (08:07→21:18)
[2022-11-06] MEDS: Omeprazole 20 MG CAPSULE.DR PO (08:07)
[2022-11-06] MEDS: Ferrous Sulfate 324 MG TABLET.DR PO (08:07)
[2022-11-06] MEDS: Escitalopram Oxalate 10 MG TABLET PO (08:08)
[2022-11-06] MEDS: DULoxetine HCl 60 MG CAPSULE.DR PO (08:08)
[2022-11-06] MEDS: Ascorbic Acid 500 MG TABLET PO ×2 (08:08→21:18)
[2022-11-06] MEDS: hydrALAZINE HCl 25 MG TABLET PO ×3 (08:08→21:18)
[2022-11-06] MEDS: Tolterodine Tartrate LA 4 MG CAP.ER.24H PO (08:08)
--- NOTE | 2022-11-06 10:33 | PM.CNCAR ---
History of Present Illness History of Present Illness Date of Service: 11/06/22 Requesting physician: Reese Bautista Chief complaint: UTI Narrative: I was consulted to see Kaitlin in cardiology consultation today for Enterococcus bacteremia. She is diagnosed with urinary tract infection with Enterococcus and had blood cultures positive Enterococcus. Initially it seem like there was persistent bacteremia for Enterococcus. Patient has been getting IV antibiotics. She had an echocardiogram that was limited to evaluate for vegetation. However repeat blood culture from 11/02 shows no growth. Cardiology consult was sought for performing WESTON. Patient has no ongoing fever or chills. No repeat white cell count perform since 10/30. Infectious disease service has seen the patient. Review of Systems Constitutional: Constitutional: Reports no additional constitutional complaints Cardiovascular: Cardiovascular: Reports no additional cardiovascular complaints Respiratory: Respiratory: Reports no additional respiratory complaints Gastrointestinal: Gastrointestinal: Reports no additional gastrointestinal complaints Genitourinary: Genitourinary: Reports no additional female genitourinary complaints Musculoskeletal: Musculoskeletal: Reports no additional musculoskeletal complaints Integumentary/Breasts: Skin/Breast: Reports system reviewed and no additional complaints, except as docu Neurologic: Reports system reviewed and no additional complaints, except as documented Psychiatric: Psychiatric: Reports no additional psychiatric complaints Endocrine: Endocrine: Reports no additional endocrine complaints PMFSH Past Medical History Medical History Allergy to multiple antibiotics Anemia Arthritis CLL (chronic lymphocytic leukemia) CLL (chronic lymphocytic leukemia) Depression Diabetes mellitus Fibromyalgia History of bilateral breast cancer History of blood transfusion History of CVA (cerebrovascular accident) History of numbness Hypercholesterolemia Hypertension PONV (postoperative nausea and vomiting) Seasonal allergies Self-catheterizes urinary bladder Sleep apnea Type 2 diabetes mellitus with unspecified complications Wears dentures Family History Family History Mother Breast cancer Father Heart disease Father Lung cancer Mother Colon cancer Brother Pancreatic cancer Family history: reviewed and not pertinent Surgical History Surgical History History of back surgery History of biopsy of bladder History of bladder repair surgery History of esophagogastroduodenoscopy (EGD) History of suprapubic catheter History of total hysterectomy Hx of colonoscopy S/P Botox injection S/P breast biopsy, right S/P left breast biopsy Social History Social History Household Members: Significant Other Housing: House Are you a primary managed care liaison to a significant other at home: No Do you presently have visiting nurse or other home services: No Alcohol intake: never Patient Tobacco Use Status: Never used Tobacco Smoked in Last 30 Days: No Use of substances other than those prescribed or required for medical reasons: No Currently Displaying Signs/Symptoms of Drug Intoxication Withdrawal: No Have you been hit, kicked, punched, or otherwise hurt by someone within the past year? If so, by whom?: No Do you feel safe in your current relationship?: Yes Is there a partner from a previous relationship who is making you feel unsafe now?: No Are you made to feel afraid or neglected: No Advance Directives: Yes Advance Directives on File: Yes Advance Directives Date on File: 04/11/22 Do you have thoughts of harming others: None Do you have a plan to hurt others: No Plan Patient : No service: No Current occupational status: retired Meds Allergies Allergy/AdvReac Type Severity Reaction Status Date / Time amoxicillin [AMOXICILLIN] Allergy Severe stroke, Verified 09/19/22 12:02 blood clots ciprofloxacin [From CIPRO] Allergy Severe ANAPHYLAXIS Verified 09/19/22 12:02 Iodinated Contrast Media Allergy Severe HIVES Verified 09/19/22 12:02 [IV DYE, IODINE CONTAINING CONTRAST ] levofloxacin Allergy Severe Anaphylaxis Verified 09/19/22 12:02 liraglutide Allergy Severe Headache Verified 09/19/22 12:02 Penicillins Allergy Severe stroke, Verified 09/19/22 12:02 blood clots phenazopyridine [Pyridium] Allergy Severe Anaphylaxis Verified 09/19/22 12:02 FREYA Inhibitors Allergy Intermediate Cough Verified 09/19/22 12:02 ARB-Angiotensin Receptor Allergy Intermediate Cough Verified 09/19/22 12:02 Antagonist atorvastatin Allergy Intermediate Shortness Verified 09/19/22 12:02 of Breath cefpodoxime Allergy Intermediate Dizziness, Verified 09/19/22 12:02 nausea celecoxib [From CELEBREX] Allergy Intermediate HIVES Verified 09/19/22 12:02 doxazosin Allergy Intermediate Shortness Verified 09/19/22 12:02 of Breath fluticasone [Advair Diskus] Allergy Intermediate Anxiety Verified 09/19/22 12:02 gabapentin [From Neurontin] Allergy Intermediate Headache Verified 09/19/22 12:02 hydralazine Allergy Intermediate Shortness Verified 09/19/22 12:02 of Breath latex Allergy Intermediate Hives Verified 09/19/22 12:02 linezolid Allergy Intermediate Nausea and Verified 09/19/22 12:02 Vomiting meloxicam Allergy Intermediate Unknown Verified 09/19/22 12:02 salmeterol [Advair Diskus] Allergy Intermediate Anxiety Verified 09/19/22 12:02 Tetanus Vaccines and Toxoid Allergy Intermediate Swelling Verified 09/19/22 12:02 torsemide Allergy Intermediate Shortness Verified 09/19/22 12:02 of Breath cephalexin [Keflex] Allergy Mild Nausea Verified 09/19/22 12:02 Active Medications: Current Medications Acetaminophen (Acetaminophen 325 Mg Tablet) 650 mg PO Q6H PRN PRN Reason: Pain, Mild (Pain Scale 1-3) Last Admin: 11/05/22 22:44 Dose: 650 mg Amlodipine Besylate (Amlodipine Besylate 10 Mg Tablet) 10 mg PO DAILY [facility]; Protocol Last Admin: 11/06/22 08:07 Dose: 10 mg Ascorbic Acid (Ascorbic Acid 500 Mg Tablet) 500 mg PO BID [facility] Last Admin: 11/06/22 08:08 Dose: 500 mg Aspirin (Aspirin Enteric Coated 81 Mg Tablet.) 81 mg PO DAILY [facility] Last Admin: 11/06/22 08:07 Dose: 81 mg Atorvastatin Calcium (Atorvastatin Calcium 80 Mg Tablet) 80 mg PO BEDTIME [facility] Last Admin: 11/05/22 21:23 Dose: 80 mg Carvedilol (Carvedilol 25 Mg Tablet) 25 mg PO BID [facility]; Protocol Last Admin: 11/06/22 08:07 Dose: 25 mg Cyclobenzaprine HCl (Cyclobenzaprine Hcl 5 Mg Tablet) 5 mg PO BEDTIME PRN PRN Reason: Insomnia/Muscle spasms Dextrose (Dextrose 50 % 25 Gm/50 Ml Syringe) 25 gm IVPUSH Q15M PRN; Protocol PRN Reason: per Hypoglycemia Standing Ord. Docusate Sodium (Docusate Sodium 100 Mg Capsule) 100 mg PO DAILY PRN PRN Reason: Constipation Last Admin: 11/05/22 09:16 Dose: 100 mg Duloxetine HCl (Duloxetine Hcl 60 Mg Capsule.) 60 mg PO DAILY [facility] Last Admin: 11/06/22 08:08 Dose: 60 mg Escitalopram Oxalate (Escitalopram Oxalate 10 Mg Tablet) 10 mg PO DAILY [facility] Last Admin: 11/06/22 08:08 Dose: 10 mg Famotidine (Famotidine 20 Mg Tablet) 40 mg PO BEDTIME [facility] Last Admin: 11/05/22 21:23 Dose: 40 mg Ferrous Sulfate (Ferrous Sulfate 324 Mg Tablet.) 324 mg PO DAILY [facility] Last Admin: 11/06/22 08:07 Dose: 324 mg Furosemide (Furosemide 40 Mg Tablet) 40 mg PO DAILY [facility]; Protocol Last Admin: 11/03/22 08:09 Dose: 40 mg Glucose (Glucose Gel 15 Gm Gel..Gram.) 15 gm PO Q15M PRN; Protocol PRN Reason: per Hypoglycemia Standing Ord. Hydralazine HCl (Hydralazine Hcl 25 Mg Tablet) 25 mg PO TID [facility]; Protocol Last Admin: 11/06/22 08:08 Dose: 25 mg Daptomycin 575 mg/ Sodium (Chloride) 61.5 mls @ 123 mls/hr IV Q24H [facility] Last Infusion: 11/05/22 12:36 Dose: Infused Insulin Human Lispro (Insulin Lispro 100 Unit/Ml 3 Ml Vial) 0 unit SUBCUT QIDACHS [facility]; Protocol Last Admin: 11/06/22 08:06 Dose: 6 unit Lorazepam (Lorazepam 0.5 Mg Tablet) 0.5 mg PO Q8H PRN PRN Reason: anxiety Last Admin: 11/05/22 22:39 Dose: 0.5 mg Pt Own (Sulindac 150 (Mg Tablet)) 150 mg PO BID [facility] Last Admin: 11/03/22 22:22 Dose: Not Given Pt Own (Ibrutinib [ Imbruvica] 420 Mg Tablet) 420 mg PO DAILY [facility] Last Admin: 11/06/22 08:09 Dose: 420 mg Omeprazole (Omeprazole 20 Mg Capsule.) 20 mg PO DAILY [facility] Last Admin: 11/06/22 08:07 Dose: 20 mg Ondansetron HCl (Ondansetron Hcl 4 Mg/2 Ml Vial) 4 mg IVPUSH Q8H PRN PRN Reason: Nausea and Vomiting Last Admin: 10/29/22 22:18 Dose: 4 mg Oxycodone HCl (Oxycodone Hcl Immed Release 5 Mg Tablet) 5 mg PO BID PRN PRN Reason: Pain, Severe (Pain Scale 7-10) Last Admin: 11/05/22 14:06 Dose: 5 mg Pregabalin (Pregabalin 150 Mg Capsule) 150 mg PO BID [facility] Last Admin: 11/06/22 08:07 Dose: 150 mg Senna (Sennosides 8.6 Mg Tablet) 17.2 mg PO BEDTIME PRN PRN Reason: CONSTIPATION Sitagliptin Phosphate (Sitagliptin Phosphate 100 Mg Tablet) 100 mg PO DAILY [facility] Last Admin: 11/06/22 08:09 Dose: Not Given Sodium Chloride (0.9 % Sodium Chloride Flush 3 Ml Syringe) 3 ml IVFLUSH QSHIFT [facility] Last Admin: 11/06/22 08:07 Dose: 3 ml Spironolactone (Spironolactone 25 Mg Tablet) 25 mg PO DAILY [facility]; Protocol Last Admin: 11/03/22 08:09 Dose: 25 mg Tolterodine Tartrate (Tolterodine Tartrate La 4 Mg Cap.Er.24h) 4 mg PO DAILY [facility] Last Admin: 11/06/22 08:08 Dose: 4 mg Home Medications Medication Instructions Recorded Confirmed Last Taken Type citalopram 20 mg tablet 20 mg PO DAILY 07/21/20 10/29/22 04/16/22 History cyclobenzaprine 5 mg tablet 5 mg PO BEDTIME PRN 07/21/20 10/29/22 Unknown History Insomnia/Muscle spasms duloxetine 60 mg capsule,delayed 60 mg PO DAILY 07/21/20 10/29/22 04/16/22 History release spironolactone 25 mg tablet 25 mg PO DAILY 07/21/20 10/29/22 Unknown History amlodipine 10 mg tablet 10 mg PO DAILY 03/23/21 10/29/22 04/16/22 History metformin 1,000 mg tablet 1,000 mg PO BID 04/19/21 10/29/22 Unknown History carvedilol 25 mg tablet 25 mg PO BID 05/31/21 10/29/22 04/16/22 History pregabalin 150 mg capsule 150 mg PO BID 07/27/21 10/29/22 04/16/22 History sulindac 150 mg tablet 150 mg PO BID 07/27/21 10/29/22 04/15/22 History sitagliptin phosphate 100 mg 100 mg PO QAM 08/21/22 10/29/22 Unknown History tablet (Januvia) furosemide 20 mg tablet 40 mg PO QAM 08/27/22 10/29/22 Unknown History blood sugar diagnostic (Accu-Chek #10 ea 09/04/22 Unknown History Guide test strips) hydralazine 25 mg tablet 25 mg PO TID 09/04/22 10/29/22 Unknown History ibrutinib 420 mg tablet (Imbruvica) 420 mg PO DAILY 10/30/22 10/30/22 Unknown History lorazepam 0.5 mg tablet 1 tab PO Q8H PRN anxiety 10/30/22 10/30/22 Unknown History nitrofurantoin macrocrystal 100 mg 100 mg PO BID 10/30/22 10/30/22 Unknown History capsule sennosides 8.6 mg tablet (senna) 17.2 mg PO BEDTIME PRN Constipation 10/30/22 10/30/22 Unknown History Physical Exam Vital Signs: Vital Signs: Last Vital Signs Temp 97.4 F 11/06/22 07:57 Pulse 67 11/06/22 09:43 Resp 18 11/06/22 08:24 BP 129/75 11/06/22 09:43 Pulse Ox 96 11/06/22 09:43 O2 Del Method 11/06/22 07:57 BMI result Body Mass Index 34.1 Const: General: cooperative, comfortable, no acute distress, alert and awake Nutritional Appearance: obese Orientation/consciousness: patient oriented x3 Limitations: no limitations HEENT: Head: Yes normocephalic and Yes atraumatic Neck: Neck: Yes trachea midline, Yes supple and Yes no JVD Resp: Effort & Inspection: normal respiratory effort Auscultation: clear to auscultation bilaterally Cardio: Jugular venous distension: no JVD Palpation: normal PMI Rate: regular rate Rhythm: regular rhythm Heart sounds: S1 normal heart sound present, S2 normal heart sound present, no click, no gallops and Murmur heart sound present systolic early and at the right sternal border GI: Auscultation: normal bowel sounds Skin: General skin exam: no rashes or lesions noted Neuro: General: patient oriented x3 and no focal motor deficits Extrem: General: Yes no clubbing, cyanosis or edema Objective Labs and Meds 10/30/22 04:17 11/06/22 05:25 Lab results: Laboratory Results - last 24 hr 11/05/22 11/05/22 11/05/22 11:15 16:26 21:08 Creatinine Estim Creat Clear Calc Estimated GFR POC Glucose 307 H 276 H 269 H 11/06/22 11/06/22 05:25 07:31 Creatinine 1.10 Estim Creat Clear Calc 49.0 Estimated GFR 48 POC Glucose 254 H Assessment and Plan (1) Enterococcal bacteremia: Status: Acute Bacteremia due to Enterococcus related to urinary tract infection. Transthoracic echo was unrevealing but sensitivity with transthoracic echo was 50%. However most recent blood cultures from 11/02/2022 are showing no growth. Repeat cultures are pending. I do not thing at this point time given patient has no signs or symptoms of sepsis ongoing infection or continued febrile episodes that there is indication for transesophageal echocardiogram. Would confer with Infectious Disease Service if WESTON still indicated. If there is need for WESTON, please keep the patient NPO. Did discuss with patient the risks, benefits, alternatives to WESTON and the need for the procedure. She understood and agreed. Will sign of the case Time Spent With Patient Time: Total time managing care of this patient today ____ minutes. Procedures Date of Service Date of Service: 11/06/22
--- NOTE | 2022-11-06 10:38 | P.PNIM_ITS ---
Subjective Subjective Date of Service: 11/06/22 Interval History: f/u on MDR enteroccocus has no new complaint Physical Exam Vital Signs: Vital Signs: Last Vital Signs Temp 97.4 F 11/06/22 07:57 Pulse 67 11/06/22 09:43 Resp 18 11/06/22 08:24 BP 129/75 11/06/22 09:43 Pulse Ox 96 11/06/22 09:43 O2 Del Method 11/06/22 07:57 BMI result Body Mass Index 34.1 Const: Other: General: AO X 3, no acute distress Resp: CTA bilateral CVS: S1,S2,RRR GI: +BS, NT, no distention Skin: No rash Neuro: motor grossly intact Psych: appropriate affect Objective Data Active Medications Acetaminophen (Acetaminophen 325 Mg Tablet) 650 mg PO Q6H PRN PRN Reason: Pain, Mild (Pain Scale 1-3) Last Admin: 11/05/22 22:44 Dose: 650 mg Documented By: JUSTIN Amlodipine Besylate (Amlodipine Besylate 10 Mg Tablet) 10 mg PO DAILY [facility]; Protocol Last Admin: 11/06/22 08:07 Dose: 10 mg Documented By: ERLIN Ascorbic Acid (Ascorbic Acid 500 Mg Tablet) 500 mg PO BID [facility] Last Admin: 11/06/22 08:08 Dose: 500 mg Documented By: ERLNI Aspirin (Aspirin Enteric Coated 81 Mg Tablet.) 81 mg PO DAILY [facility] Last Admin: 11/06/22 08:07 Dose: 81 mg Documented By: ERLIN Atorvastatin Calcium (Atorvastatin Calcium 80 Mg Tablet) 80 mg PO BEDTIME [facility] Last Admin: 11/05/22 21:23 Dose: 80 mg Documented By: JUSTIN Carvedilol (Carvedilol 25 Mg Tablet) 25 mg PO BID [facility]; Protocol Last Admin: 11/06/22 08:07 Dose: 25 mg Documented By: ERLIN Cyclobenzaprine HCl (Cyclobenzaprine Hcl 5 Mg Tablet) 5 mg PO BEDTIME PRN PRN Reason: Insomnia/Muscle spasms Dextrose (Dextrose 50 % 25 Gm/50 Ml Syringe) 25 gm IVPUSH Q15M PRN; Protocol PRN Reason: per Hypoglycemia Standing Ord. Docusate Sodium (Docusate Sodium 100 Mg Capsule) 100 mg PO DAILY PRN PRN Reason: Constipation Last Admin: 11/05/22 09:16 Dose: 100 mg Documented By: ERLIN Duloxetine HCl (Duloxetine Hcl 60 Mg Capsule.) 60 mg PO DAILY [facility] Last Admin: 11/06/22 08:08 Dose: 60 mg Documented By: ERLIN Escitalopram Oxalate (Escitalopram Oxalate 10 Mg Tablet) 10 mg PO DAILY [facility] Last Admin: 11/06/22 08:08 Dose: 10 mg Documented By: ERLIN Famotidine (Famotidine 20 Mg Tablet) 40 mg PO BEDTIME [facility] Last Admin: 11/05/22 21:23 Dose: 40 mg Documented By: JUSTIN Ferrous Sulfate (Ferrous Sulfate 324 Mg Tablet.) 324 mg PO DAILY [facility] Last Admin: 11/06/22 08:07 Dose: 324 mg Documented By: ERLIN Furosemide (Furosemide 40 Mg Tablet) 40 mg PO DAILY [facility]; Protocol Last Admin: 11/03/22 08:09 Dose: 40 mg Documented By: TOAN Glucose (Glucose Gel 15 Gm Gel..Gram.) 15 gm PO Q15M PRN; Protocol PRN Reason: per Hypoglycemia Standing Ord. Hydralazine HCl (Hydralazine Hcl 25 Mg Tablet) 25 mg PO TID [facility]; Protocol Last Admin: 11/06/22 08:08 Dose: 25 mg Documented By: ERLIN Daptomycin 575 mg/ Sodium (Chloride) 61.5 mls @ 123 mls/hr IV Q24H [facility] Last Infusion: 11/05/22 12:36 Dose: 0 mls/hr Documented By: ERLIN Insulin Human Lispro (Insulin Lispro 100 Unit/Ml 3 Ml Vial) 0 unit SUBCUT QIDACHS [facility]; Protocol Last Admin: 11/06/22 08:06 Dose: 6 unit Documented By: ERLIN Lorazepam (Lorazepam 0.5 Mg Tablet) 0.5 mg PO Q8H PRN PRN Reason: anxiety Last Admin: 11/05/22 22:39 Dose: 0.5 mg Documented By: JUSTIN Pt Own (Sulindac 150 (Mg Tablet)) 150 mg PO BID [facility] Last Admin: 11/03/22 22:22 Dose: Not Given Documented By: TOAN Non-Admin Reason: Med Not Available Pt Own (Ibrutinib [ Imbruvica] 420 Mg Tablet) 420 mg PO DAILY [facility] Last Admin: 11/06/22 08:09 Dose: 420 mg Documented By: ERLIN Omeprazole (Omeprazole 20 Mg Capsule.Dr) 20 mg PO DAILY [facility] Last Admin: 11/06/22 08:07 Dose: 20 mg Documented By: ERLIN Ondansetron HCl (Ondansetron Hcl 4 Mg/2 Ml Vial) 4 mg IVPUSH Q8H PRN PRN Reason: Nausea and Vomiting Last Admin: 10/29/22 22:18 Dose: 4 mg Documented By: CHAUNCEY Oxycodone HCl (Oxycodone Hcl Immed Release 5 Mg Tablet) 5 mg PO BID PRN PRN Reason: Pain, Severe (Pain Scale 7-10) Last Admin: 11/05/22 14:06 Dose: 5 mg Documented By: ERLIN Pregabalin (Pregabalin 150 Mg Capsule) 150 mg PO BID [facility] Last Admin: 11/06/22 08:07 Dose: 150 mg Documented By: ERLIN Senna (Sennosides 8.6 Mg Tablet) 17.2 mg PO BEDTIME PRN PRN Reason: CONSTIPATION Sitagliptin Phosphate (Sitagliptin Phosphate 100 Mg Tablet) 100 mg PO DAILY [facility] Last Admin: 11/06/22 08:09 Dose: Not Given Documented By: ERLIN Non-Admin Reason: Patient Refused Sodium Chloride (0.9 % Sodium Chloride Flush 3 Ml Syringe) [facility] Last Admin: 11/06/22 08:07 Dose: 3 ml Documented By: ERLIN Spironolactone (Spironolactone 25 Mg Tablet) 25 mg PO DAILY [facility]; Protocol Last Admin: 11/03/22 08:09 Dose: 25 mg Documented By: TOAN Tolterodine Tartrate (Tolterodine Tartrate La 4 Mg Cap.Er.24h) 4 mg PO DAILY [facility] Last Admin: 11/06/22 08:08 Dose: 4 mg Documented By: ERLIN Labs 10/30/22 04:17 11/06/22 05:25 Labs: Laboratory Results - last 24 hr 11/05/22 11/05/22 11/05/22 11:15 16:26 21:08 Estim Creat Clear Calc Estimated GFR POC Glucose 307 H 276 H 269 H 11/06/22 11/06/22 05:25 07:31 Estim Creat Clear Calc 49.0 Estimated GFR 48 POC Glucose 254 H Microbiology Microbiology Results: Microbiology 11/02/22 02:47 Blood Culture - Final Blood - Venous Enterococcus faecalis Assessment and Plan (1) Enterococcal bacteremia: Status: Acute (2) Hyperglycemia: Status: Acute (3) Morbid obesity: Status: Acute Plan 77-year-old female with multiple past medical history as well as multiple allergies to many antibiotics presents to the hospital with confusion, increased lethargy found to have acute UTI failed outpatient therapy Sepsis UTI/ gram positive enterococcus /streptococcus blood cultures-enterococcus /streptococcus- repeat blood culture -09/10 blood culture from11/02/22 -grew enterococcus again, BCX 11/05 pending soniya parapsilosis,Achromobacter xylosoxidans-10,000 to 50,000 cfu/mL TTE: Conclusions: - The left ventricular systolic function is normal.? The visually estimated ejection fraction is between 55-60%. ? - There is moderately increased left ventricular wall thickness. - There is mild mitral annular calcification.? - No obvious valvular pathology seen on this study.? ? -No WESTON if blood cultures negative. ?? s/p suprapubic tube change in office by Dr. Hayes on 09/04/22 CT scan negative for any obstruction, pyelonephritis Id eval noted -initailly was on vancomycin-which was chnaged to Daptomycin . ? diabetes with hyperglycemia Continue adjusted sliding scale insulin diabetic diet hold oral anti hypoglycemics ? hypertension stable continue home? antihypertensives morbid obesity:? Encouraged to lose weight. Thrombocytopenia: Seems chronic. not due to sepsis. ?DVT prophylaxis:? scd due to Thrombocytopenia. Pt evalwill need home pt on discharge. ?inpatient need: sepsis/ uti /bacteremia-needs iv antibiotics therapy, blood culture persistently positive Enterococcus,need to have clear blood cultures before further dispo planning Time Spent With Patient Time: Total time managing care of this patient today ____ minutes. Quality Stroke Does the patient have a stroke diagnosis?: No VTE Prior VTE?: No VTE Risk Level:: Medical - moderate - high VTE Device Contraindication: Treatment Not Indicated VTE Drug Contraindication: N/A - Med Ordered
[2022-11-06 11:12] LABS: Glucose, Whole Blood 420 mg/dL (60-115)
[2022-11-06] MEDS: DAPTOmycin 575 MG in 0.9 % Sodium Chloride 50 ML 123 MG IV (11:33)
--- NOTE | 2022-11-06 12:57 | MHC.CM.PN ---
STILL WITH (+) BLOOD CULTURES NO PLAN FOR DC
[2022-11-06 16:31] LABS: Glucose, Whole Blood 293 mg/dL (60-115)
[2022-11-06] MEDS: Docusate Sodium 100 MG CAPSULE PO (17:52)
[2022-11-06 20:10] LABS: Glucose, Whole Blood 309 mg/dL (60-115)
[2022-11-06] MEDS: Atorvastatin Calcium 80 MG TABLET PO (21:18)
[2022-11-06] MEDS: Sennosides 8.6 MG TABLET 17.2 MG PO (21:18)
[2022-11-06] MEDS: Famotidine 20 MG TABLET 40 MG PO (21:18)
[2022-11-07 03:03] VITALS: BP 146/63; PULSE 64; RESP 16; TEMP 35.9; O2SAT 96
[2022-11-07 07:10] LABS: Creatinine Clr Calc Pharmacy 53.4; Estimated Glomerular Filt Rate 53
[2022-11-07 07:21] LABS: Glucose, Whole Blood 256 mg/dL (60-115)
[2022-11-07 07:47] VITALS: BP 151/71; PULSE 71; RESP 18; TEMP 37.1; O2SAT 94
[2022-11-07 07:49] VITALS: PULSE 78; RESP 17; O2SAT 96
[2022-11-07] MEDS: Insulin Lispro 100 UNIT/ML 3 ML VIAL SUBCUT ×5 (08:45→20:33)
[2022-11-07] MEDS: DULoxetine HCl 60 MG CAPSULE.DR PO (08:49)
[2022-11-07] MEDS: Tolterodine Tartrate LA 4 MG CAP.ER.24H PO (08:49)
[2022-11-07] MEDS: 0.9 % Sodium Chloride Flush 3 ML SYRINGE IVFLUSH ×3 (08:49→20:33)
[2022-11-07] MEDS: Aspirin Enteric Coated 81 MG TABLET.DR PO (08:49)
[2022-11-07] MEDS: Ascorbic Acid 500 MG TABLET PO ×2 (08:50→20:34)
[2022-11-07] MEDS: Pregabalin 150 MG CAPSULE PO ×2 (08:50→20:33)
[2022-11-07] MEDS: Ferrous Sulfate 324 MG TABLET.DR PO (08:51)
[2022-11-07] MEDS: carvediloL 25 MG TABLET PO ×2 (08:51→20:32)
[2022-11-07] MEDS: hydrALAZINE HCl 25 MG TABLET PO ×3 (08:51→20:32)
[2022-11-07] MEDS: amLODIPine Besylate 10 MG TABLET PO (08:51)
[2022-11-07] MEDS: Omeprazole 20 MG CAPSULE.DR PO (08:52)
[2022-11-07] MEDS: Escitalopram Oxalate 10 MG TABLET PO (08:52)
[2022-11-07] MEDS: SITagliptin Phosphate 100 MG TABLET PO (08:52)
--- NOTE | 2022-11-07 10:30 | P.PNIM_ITS ---
Subjective Subjective Date of Service: 11/07/22 Interval History: f/u on MDR enteroccocus baceremia has no new complaint, last culture negative at 24 hrs Review of Systems Denies any chest pain or shortness of breath or abdominal pain or fever chills or cough or phlegm. Physical Exam Vital Signs: Vital Signs: Last Vital Signs Temp 98.7 F 11/07/22 07:47 Pulse 71 11/07/22 07:47 Resp 17 11/07/22 07:49 BP 151/71 H 11/07/22 07:47 Pulse Ox 94 11/07/22 07:47 O2 Del Method 11/07/22 07:47 BMI result Body Mass Index 34.1 Const: Other: General: AO X 3, no acute distress Resp: CTA bilateral CVS: S1,S2,RRR GI: +BS, NT, no distention Skin: No rash Neuro: motor grossly intact Psych: appropriate affect Objective Data Active Medications Acetaminophen (Acetaminophen 325 Mg Tablet) 650 mg PO Q6H PRN PRN Reason: Pain, Mild (Pain Scale 1-3) Last Admin: 11/05/22 22:44 Dose: 650 mg Documented By: JUSTIN Amlodipine Besylate (Amlodipine Besylate 10 Mg Tablet) 10 mg PO DAILY [facility]; Protocol Last Admin: 11/07/22 08:51 Dose: 10 mg Documented By: RAMÍREZ Ascorbic Acid (Ascorbic Acid 500 Mg Tablet) 500 mg PO BID [facility] Last Admin: 11/07/22 08:50 Dose: 500 mg Documented By: RAMÍREZ Aspirin (Aspirin Enteric Coated 81 Mg Tablet.) 81 mg PO DAILY [facility] Last Admin: 11/07/22 08:49 Dose: 81 mg Documented By: RAMÍREZ Atorvastatin Calcium (Atorvastatin Calcium 80 Mg Tablet) 80 mg PO BEDTIME [facility] Last Admin: 11/06/22 21:18 Dose: 80 mg Documented By: LOW Carvedilol (Carvedilol 25 Mg Tablet) 25 mg PO BID [facility]; Protocol Last Admin: 11/07/22 08:51 Dose: 25 mg Documented By: RAMÍREZ Cyclobenzaprine HCl (Cyclobenzaprine Hcl 5 Mg Tablet) 5 mg PO BEDTIME PRN PRN Reason: Insomnia/Muscle spasms Dextrose (Dextrose 50 % 25 Gm/50 Ml Syringe) 25 gm IVPUSH Q15M PRN; Protocol PRN Reason: per Hypoglycemia Standing Ord. Docusate Sodium (Docusate Sodium 100 Mg Capsule) 100 mg PO DAILY PRN PRN Reason: Constipation Last Admin: 11/06/22 17:52 Dose: 100 mg Documented By: ERLIN Duloxetine HCl (Duloxetine Hcl 60 Mg Capsule.) 60 mg PO DAILY [facility] Last Admin: 11/07/22 08:49 Dose: 60 mg Documented By: RAMÍREZ Escitalopram Oxalate (Escitalopram Oxalate 10 Mg Tablet) 10 mg PO DAILY [facility] Last Admin: 11/07/22 08:52 Dose: 10 mg Documented By: RAMÍREZ Famotidine (Famotidine 20 Mg Tablet) 40 mg PO BEDTIME [facility] Last Admin: 11/06/22 21:18 Dose: 40 mg Documented By: LOW Ferrous Sulfate (Ferrous Sulfate 324 Mg Tablet.) 324 mg PO DAILY [facility] Last Admin: 11/07/22 08:51 Dose: 324 mg Documented By: RAMÍREZ Furosemide (Furosemide 40 Mg Tablet) 40 mg PO DAILY [facility]; Protocol Last Admin: 11/03/22 08:09 Dose: 40 mg Documented By: TOAN Glucose (Glucose Gel 15 Gm Gel..Gram.) 15 gm PO Q15M PRN; Protocol PRN Reason: per Hypoglycemia Standing Ord. Hydralazine HCl (Hydralazine Hcl 25 Mg Tablet) 25 mg PO TID [facility]; Protocol Last Admin: 11/07/22 08:51 Dose: 25 mg Documented By: RAMÍREZ Daptomycin 575 mg/ Sodium (Chloride) 61.5 mls @ 123 mls/hr IV Q24H [facility] Last Infusion: 11/06/22 12:02 Dose: 0 mls/hr Documented By: ERLIN Insulin Human Lispro (Insulin Lispro 100 Unit/Ml 3 Ml Vial) 0 unit SUBCUT QIDACHS [facility]; Protocol Last Admin: 11/07/22 08:45 Dose: 6 unit Documented By: RAMÍREZ Lorazepam (Lorazepam 0.5 Mg Tablet) 0.5 mg PO Q8H PRN PRN Reason: anxiety Last Admin: 11/05/22 22:39 Dose: 0.5 mg Documented By: JUSTIN Pt Own (Sulindac 150 (Mg Tablet)) 150 mg PO BID [facility] Last Admin: 11/03/22 22:22 Dose: Not Given Documented By: TOAN Non-Admin Reason: Med Not Available Pt Own (Ibrutinib [ Imbruvica] 420 Mg Tablet) 420 mg PO DAILY [facility] Last Admin: 11/07/22 08:52 Dose: 420 mg Documented By: RAMÍREZ Omeprazole (Omeprazole 20 Mg Capsule.Dr) 20 mg PO DAILY [facility] Last Admin: 11/07/22 08:52 Dose: 20 mg Documented By: RAMÍREZ Ondansetron HCl (Ondansetron Hcl 4 Mg/2 Ml Vial) 4 mg IVPUSH Q8H PRN PRN Reason: Nausea and Vomiting Last Admin: 10/29/22 22:18 Dose: 4 mg Documented By: CHAUNCEY Oxycodone HCl (Oxycodone Hcl Immed Release 5 Mg Tablet) 5 mg PO BID PRN PRN Reason: Pain, Severe (Pain Scale 7-10) Last Admin: 11/05/22 14:06 Dose: 5 mg Documented By: ERLIN Pregabalin (Pregabalin 150 Mg Capsule) 150 mg PO BID [facility] Last Admin: 11/07/22 08:50 Dose: 150 mg Documented By: RAMÍREZ Senna (Sennosides 8.6 Mg Tablet) 17.2 mg PO BEDTIME PRN PRN Reason: CONSTIPATION Last Admin: 11/06/22 21:18 Dose: 17.2 mg Documented By: OLW Sitagliptin Phosphate (Sitagliptin Phosphate 100 Mg Tablet) 100 mg PO DAILY [facility] Last Admin: 11/07/22 08:52 Dose: 100 mg Documented By: RAMÍREZ Sodium Chloride (0.9 % Sodium Chloride Flush 3 Ml Syringe) 3 ml IVFLUSH QSHIFT [facility] Last Admin: 11/07/22 08:49 Dose: 3 ml Documented By: RAMÍREZ Spironolactone (Spironolactone 25 Mg Tablet) 25 mg PO DAILY [facility]; Protocol Last Admin: 11/03/22 08:09 Dose: 25 mg Documented By: TOAN Tolterodine Tartrate (Tolterodine Tartrate La 4 Mg Cap.Er.24h) 4 mg PO DAILY [facility] Last Admin: 11/07/22 08:49 Dose: 4 mg Documented By: RAMÍREZ Labs 10/30/22 04:17 11/07/22 05:30 Labs: Laboratory Results - last 24 hr 11/06/22 11/06/22 11/06/22 11:08 16:26 19:46 Estim Creat Clear Calc Estimated GFR POC Glucose 420 H* 293 H 309 H 11/07/22 11/07/22 05:30 07:17 Estim Creat Clear Calc 53.4 Estimated GFR 53 POC Glucose 256 H Microbiology Microbiology Results: Microbiology 11/02/22 02:47 Blood Culture - Final Blood - Venous No growth after 5 days. 11/05/22 09:36 Blood Culture - Preliminary Blood - Venous No growth after 24 hours. 11/05/22 09:36 Blood Culture - Preliminary Blood - Venous No growth after 24 hours. Assessment and Plan (1) Enterococcal bacteremia: Status: Acute (2) Hyperglycemia: Status: Acute (3) Morbid obesity: Status: Acute Plan 77-year-old female with multiple past medical history as well as multiple allergies to many antibiotics presents to the hospital with confusion, increased lethargy found to have acute UTI failed outpatient therapy Sepsis UTI/ gram positive enterococcus likely related to UTI from chronic suprapubic catheter, last changed in August blood cultures-enterococcus - repeat blood culture -09/10 blood culture f rom11/02/22 -grew enterococcus again, BCX 11/05 negative at 24 soniya parapsilosis,Achromobacter xylosoxidans-10,000 to 50,000 cfu/mL--probably contamination TTE:no vegetations, hold WESTON unless recent cultures still positive Continue Dapto, ID to make final Abx recommendations ?diabetes with hyperglycemia continue insulin, restart Metformin ?hypertension continue home? antihypertensives morbid obesity:? Encouraged to lose weight. Thrombocytopenia: Seems chronic. not due to sepsis. ?DVT prophylaxis:? scd due to Thrombocytopenia. Pt evalwill need home pt on discharge. ?inpatient need: sepsis/ uti /bacteremia-needs iv antibiotics therapy, blood culture persistently positive Enterococcus,need to have clear blood cultures before further dispo planning Time Spent With Patient Time: Total time managing care of this patient today ____ minutes. Quality Stroke Does the patient have a stroke diagnosis?: No VTE Prior VTE?: No VTE Risk Level:: Medical - moderate - high VTE Device Contraindication: Treatment Not Indicated VTE Drug Contraindication: N/A - Med Ordered
[2022-11-07 11:11] LABS: Glucose, Whole Blood 423 mg/dL (60-115)
[2022-11-07] MEDS: DAPTOmycin 575 MG in 0.9 % Sodium Chloride 50 ML 123 MG IV (11:29)
[2022-11-07] MEDS: Acetaminophen 325 MG TABLET 650 MG PO (15:12)
[2022-11-07 15:17] VITALS: BP 131/60; PULSE 68; RESP 18; TEMP 36.8; O2SAT 95
[2022-11-07 16:47] LABS: Glucose, Whole Blood 283 mg/dL (60-115)
--- NOTE | 2022-11-07 16:49 | PM.IDPN ---
Subjective Subjective Date of Service: 11/07/22 Critical Care Time (minutes): 15 Comment: she feels better she has Henao Objective Data Labs 10/30/22 04:17 11/07/22 05:30 Labs: Laboratory Results - last 24 hr 11/06/22 11/07/22 11/07/22 19:46 05:30 07:17 Creatinine 1.01 Estim Creat Clear Calc 53.4 Estimated GFR 53 POC Glucose 309 H 256 H 11/07/22 11/07/22 11:07 16:38 Creatinine Estim Creat Clear Calc Estimated GFR POC Glucose 423 H* 283 H Microbiology Microbiology Results: Microbiology 11/05/22 09:36 Blood - Venous Blood Culture - Preliminary No growth after 48 hours. 11/05/22 09:36 Blood - Venous Blood Culture - Preliminary No growth after 48 hours. 11/02/22 02:47 Blood - Venous Blood Culture - Final No growth after 5 days. 11/02/22 02:47 Blood - Venous Blood Culture - Final Enterococcus faecalis 10/29/22 18:40 Urine Catheterized - Henao Catheter Urine Culture - Final Yessica parapsilosis Achromobacter xylosoxidans 11/01/22 00:39 Blood - Venous Blood Culture - Final Enterococcus faecalis 11/01/22 00:39 Blood - Venous Blood Culture - Final Coag negative Staphylococcus 10/31/22 08:31 Blood - Venous Blood Culture - Final Enterococcus faecalis 10/31/22 08:27 Blood - Venous Blood Culture - Final Enterococcus faecalis 10/29/22 17:54 Blood - Venous Blood Culture - Final Enterococcus faecalis 10/29/22 17:44 Blood - Venous Blood Culture - Final Enterococcus faecalis Physical Exam Vital Signs: Vital Signs: Last Vital Signs Temp 98.3 F 11/07/22 15:17 Pulse 68 11/07/22 15:17 Resp 18 11/07/22 15:17 BP 131/60 11/07/22 15:17 Pulse Ox 95 11/07/22 15:17 O2 Del Method 11/07/22 15:17 BMI result Body Mass Index 34.1 Const: General: cooperative HEENT: Head: Yes normal to inspection Eyes: General: appearance normal, both eyes and all related structures Resp: Effort & Inspection: normal respiratory effort Cardio: Rate: regular rate Rhythm: regular rhythm GI: Palpation (GI): nontender Extrem: General: Yes normal to inspection Assessment and Plan Assessment and plan (1) Enterococcal bacteremia: Problem details: this is clearing Status: Acute Assessment and Plan: would give IV Daptomycin three weeks from first negative culture blood. Time Spent With Patient Time: Total time managing care of this patient today ____ minutes.
[2022-11-07 19:27] VITALS: BP 141/63; PULSE 64; RESP 18; TEMP 37; O2SAT 94
[2022-11-07 20:01] LABS: Glucose, Whole Blood 242 mg/dL (60-115)
[2022-11-07] MEDS: Famotidine 20 MG TABLET 40 MG PO (20:32)
[2022-11-07] MEDS: metFORMIN HCl 1,000 MG TABLET 1000 MG PO (20:33)
[2022-11-07] MEDS: Atorvastatin Calcium 80 MG TABLET PO (20:33)
[2022-11-08 03:05] VITALS: BP 118/58; PULSE 68; RESP 16; TEMP 36; O2SAT 94
[2022-11-08 06:31] LABS: Creatinine Clr Calc Pharmacy 51.9; Estimated Glomerular Filt Rate 52
[2022-11-08 06:49] VITALS: BP 160/70; PULSE 73; RESP 20; TEMP 36.6; O2SAT 94
[2022-11-08 07:05] LABS: Glucose, Whole Blood 186 mg/dL (60-115)
[2022-11-08] MEDS: 0.9 % Sodium Chloride Flush 3 ML SYRINGE IVFLUSH ×3 (08:07→23:39)
[2022-11-08] MEDS: Insulin Lispro 100 UNIT/ML 3 ML VIAL SUBCUT ×3 (08:07→20:35)
[2022-11-08 08:57] VITALS: BP 160/70; PULSE 73; O2SAT 94
--- NOTE | 2022-11-08 09:52 | P.PNIM_ITS ---
Subjective Subjective Date of Service: 11/08/22 Interval History: f/u on MDR enteroccocus baceremia has no new complaint, last cultures negative at 48 hrs Physical Exam Vital Signs: Vital Signs: Last Vital Signs Temp 97.8 F 11/08/22 06:49 Pulse 73 11/08/22 08:57 Resp 20 11/08/22 06:49 BP 160/70 H 11/08/22 08:57 Pulse Ox 94 11/08/22 08:57 O2 Del Method 11/08/22 06:49 BMI result Body Mass Index 34.1 Const: Other: General: AO X 3, no acute distress Resp: CTA bilateral CVS: S1,S2,RRR GI: +BS, NT, no distention Skin: No rash Neuro: motor grossly intact Psych: appropriate affect Objective Data Active Medications Acetaminophen (Acetaminophen 325 Mg Tablet) 650 mg PO Q6H PRN PRN Reason: Pain, Mild (Pain Scale 1-3) Last Admin: 11/07/22 15:12 Dose: 650 mg Documented By: RAMÍREZ Amlodipine Besylate (Amlodipine Besylate 10 Mg Tablet) 10 mg PO DAILY [facility]; Protocol Last Admin: 11/07/22 08:51 Dose: 10 mg Documented By: RAMÍREZ Ascorbic Acid (Ascorbic Acid 500 Mg Tablet) 500 mg PO BID [facility] Last Admin: 11/07/22 20:34 Dose: 500 mg Documented By: BRITTNEE Aspirin (Aspirin Enteric Coated 81 Mg Tablet.) 81 mg PO DAILY [facility] Last Admin: 11/07/22 08:49 Dose: 81 mg Documented By: RAMÍREZ Atorvastatin Calcium (Atorvastatin Calcium 80 Mg Tablet) 80 mg PO BEDTIME [facility] Last Admin: 11/07/22 20:33 Dose: 80 mg Documented By: BRITTNEE Carvedilol (Carvedilol 25 Mg Tablet) 25 mg PO BID [facility]; Protocol Last Admin: 11/07/22 20:32 Dose: 25 mg Documented By: BRITTNEE Cyclobenzaprine HCl (Cyclobenzaprine Hcl 5 Mg Tablet) 5 mg PO BEDTIME PRN PRN Reason: Insomnia/Muscle spasms Dextrose (Dextrose 50 % 25 Gm/50 Ml Syringe) 25 gm IVPUSH Q15M PRN; Protocol PRN Reason: per Hypoglycemia Standing Ord. Docusate Sodium (Docusate Sodium 100 Mg Capsule) 100 mg PO DAILY PRN PRN Reason: Constipation Last Admin: 11/06/22 17:52 Dose: 100 mg Documented By: ERLIN Duloxetine HCl (Duloxetine Hcl 60 Mg Capsule.) 60 mg PO DAILY [facility] Last Admin: 11/07/22 08:49 Dose: 60 mg Documented By: RAMÍREZ Escitalopram Oxalate (Escitalopram Oxalate 10 Mg Tablet) 10 mg PO DAILY [facility] Last Admin: 11/07/22 08:52 Dose: 10 mg Documented By: RAMÍREZ Famotidine (Famotidine 20 Mg Tablet) 40 mg PO BEDTIME [facility] Last Admin: 11/07/22 20:32 Dose: 40 mg Documented By: BRITTNEE Ferrous Sulfate (Ferrous Sulfate 324 Mg Tablet.) 324 mg PO DAILY [facility] Last Admin: 11/07/22 08:51 Dose: 324 mg Documented By: RAMÍREZ Furosemide (Furosemide 40 Mg Tablet) 40 mg PO DAILY [facility]; Protocol Last Admin: 11/03/22 08:09 Dose: 40 mg Documented By: EMMANUEL-JARRET Glucose (Glucose Gel 15 Gm Gel..Gram.) 15 gm PO Q15M PRN; Protocol PRN Reason: per Hypoglycemia Standing Ord. Hydralazine HCl (Hydralazine Hcl 25 Mg Tablet) 25 mg PO TID [facility]; Protocol Last Admin: 11/07/22 20:32 Dose: 25 mg Documented By: BRITTNEE Daptomycin 575 mg/ Sodium (Chloride) 61.5 mls @ 123 mls/hr IV Q24H [facility] Last Infusion: 11/07/22 12:09 Dose: 0 mls/hr Documented By: RAMÍREZ Insulin Human Lispro (Insulin Lispro 100 Unit/Ml 3 Ml Vial) 0 unit SUBCUT QIDACHS [facility]; Protocol Last Admin: 11/08/22 08:07 Dose: 2 unit Documented By: LIANNA Lactulose (Lactulose 20 Gm/30 Ml Solution) 20 gm PO ONCE ONE Stop: 11/08/22 09:52 Lorazepam (Lorazepam 0.5 Mg Tablet) 0.5 mg PO Q8H PRN PRN Reason: anxiety Last Admin: 11/05/22 22:39 Dose: 0.5 mg Documented By: JUSTIN Metformin HCl (Metformin Hcl 1,000 Mg Tablet) 1,000 mg PO BID [facility] Last Admin: 11/07/22 20:33 Dose: 1,000 mg Documented By: BRITTNEE Pt Own (Sulindac 150 (Mg Tablet)) 150 mg PO BID [facility] Last Admin: 11/03/22 22:22 Dose: Not Given Documented By: TOAN Non-Admin Reason: Med Not Available Pt Own (Ibrutinib [ Imbruvica] 420 Mg Tablet) 420 mg PO DAILY [facility] Last Admin: 11/07/22 08:52 Dose: 420 mg Documented By: RAMÍREZ Omeprazole (Omeprazole 20 Mg Capsule.Dr) 20 mg PO DAILY [facility] Last Admin: 11/07/22 08:52 Dose: 20 mg Documented By: RAMÍREZ Ondansetron HCl (Ondansetron Hcl 4 Mg/2 Ml Vial) 4 mg IVPUSH Q8H PRN PRN Reason: Nausea and Vomiting Last Admin: 10/29/22 22:18 Dose: 4 mg Documented By: CHAUNCEY Oxycodone HCl (Oxycodone Hcl Immed Release 5 Mg Tablet) 5 mg PO BID PRN PRN Reason: Pain, Severe (Pain Scale 7-10) Last Admin: 11/05/22 14:06 Dose: 5 mg Documented By: ERLIN Pregabalin (Pregabalin 150 Mg Capsule) 150 mg PO BID [facility] Last Admin: 11/07/22 20:33 Dose: 150 mg Documented By: BRITTNEE Senna (Sennosides 8.6 Mg Tablet) 17.2 mg PO BEDTIME PRN PRN Reason: CONSTIPATION Last Admin: 11/06/22 21:18 Dose: 17.2 mg Documented By: LOW Sitagliptin Phosphate (Sitagliptin Phosphate 100 Mg Tablet) 100 mg PO DAILY [facility] Last Admin: 11/07/22 08:52 Dose: 100 mg Documented By: RAMÍREZ Sodium Chloride (0.9 % Sodium Chloride Flush 3 Ml Syringe) 3 ml IVFLUSH [facility] Last Admin: 11/08/22 08:07 Dose: 3 ml Documented By: LIANNA Spironolactone (Spironolactone 25 Mg Tablet) 25 mg PO DAILY [facility]; Protocol Last Admin: 11/03/22 08:09 Dose: 25 mg Documented By: TOAN Tolterodine Tartrate (Tolterodine Tartrate La 4 Mg Cap.Er.24h) 4 mg PO DAILY [facility] Last Admin: 11/07/22 08:49 Dose: 4 mg Documented By: RAMÍREZ Labs 10/30/22 04:17 11/08/22 05:26 Labs: Laboratory Results - last 24 hr 11/07/22 11/07/22 11/07/22 11:07 16:38 19:29 Estim Creat Clear Calc Estimated GFR POC Glucose 423 H* 283 H 242 H 11/08/22 11/08/22 05:26 06:49 Estim Creat Clear Calc 51.9 Estimated GFR 52 POC Glucose 186 H Microbiology Microbiology Results: Microbiology 11/05/22 09:36 Blood Culture - Preliminary Blood - Venous No growth after 48 hours. 11/05/22 09:36 Blood Culture - Preliminary Blood - Venous No growth after 48 hours. 11/02/22 02:47 Blood Culture - Final Blood - Venous No growth after 5 days. Assessment and Plan (1) Enterococcal bacteremia: Status: Acute (2) Hyperglycemia: Status: Acute (3) Morbid obesity: Status: Acute Plan 77-year-old female with multiple past medical history as well as multiple allergies to many antibiotics presents to the hospital with confusion, increased lethargy found to have acute UTI failed outpatient therapy Sepsis UTI/ gram positive enterococcus likely related to UTI from chronic suprapubic catheter, last changed in August blood cultures-enterococcus - repeat blood culture -1/2 blood culture from11/02/22 -grew enterococcus again, BCX 11/05 negative at 48 soniya parapsilosis,Achromobacter xylosoxidans-10,000 to 50,000 cfu/mL--probably contamination TTE:no vegetations, hold [place] unless recent cultures still positive Continue Dapto, ID recommends 3 weeks Daptom starting november 07 and ending november 27, requesting a midline today ?diabetes with hyperglycemia, better continue insulin, restarted Metformin 11/07 ?hypertension continue home? antihypertensives morbid obesity:? Encouraged to lose weight. Thrombocytopenia: Seems chronic. not due to sepsis. ?DVT prophylaxis:? scd due to Thrombocytopenia. Pt evalwill need home pt on discharge. ?inpatient need: sepsis/ uti /bacteremia-needs iv antibiotics therapy, blood culture persistently positive Enterococcus,need to have clear blood cultures before further dispo planning Time Spent With Patient Time: Total time managing care of this patient today ____ minutes. Quality Stroke Does the patient have a stroke diagnosis?: No VTE Prior VTE?: No VTE Risk Level:: Medical - moderate - high VTE Device Contraindication: Treatment Not Indicated VTE Drug Contraindication: N/A - Med Ordered
[2022-11-08] MEDS: Omeprazole 20 MG CAPSULE.DR PO (09:57)
[2022-11-08] MEDS: hydrALAZINE HCl 25 MG TABLET PO ×3 (09:58→20:35)
[2022-11-08] MEDS: Pregabalin 150 MG CAPSULE PO ×2 (10:05→20:35)
[2022-11-08] MEDS: metFORMIN HCl 1,000 MG TABLET 1000 MG PO ×2 (10:05→20:35)
[2022-11-08] MEDS: Ferrous Sulfate 324 MG TABLET.DR PO (10:06)
[2022-11-08] MEDS: Tolterodine Tartrate LA 4 MG CAP.ER.24H PO (10:07)
[2022-11-08] MEDS: DULoxetine HCl 60 MG CAPSULE.DR PO (10:08)
[2022-11-08] MEDS: Escitalopram Oxalate 10 MG TABLET PO (10:09)
[2022-11-08] MEDS: carvediloL 25 MG TABLET PO ×2 (10:10→20:35)
[2022-11-08] MEDS: amLODIPine Besylate 10 MG TABLET PO (10:10)
[2022-11-08] MEDS: Aspirin Enteric Coated 81 MG TABLET.DR PO (10:11)
[2022-11-08] MEDS: SITagliptin Phosphate 100 MG TABLET PO (10:13)
[2022-11-08] MEDS: Ascorbic Acid 500 MG TABLET PO ×2 (10:13→20:35)
[2022-11-08] MEDS: Lactulose 20 GM/30 ML SOLUTION PO (10:15)
--- NOTE | 2022-11-08 10:45 | MHC.CM.PN ---
REFERRAL TO [facility] HOME [facility] (DAPTO QD UNTIL NOVEMBER 27) LISBETH GAITAN MADE AWARE CM AWAITING COST AND ACCEPTANCE TO INFORM PATIENT OF HER OPTIONS
[2022-11-08 10:57] LABS: Glucose, Whole Blood 260 mg/dL (60-115)
[2022-11-08] MEDS: Docusate Sodium 100 MG CAPSULE PO (11:49)
[2022-11-08] MEDS: DAPTOmycin 575 MG in 0.9 % Sodium Chloride 50 ML 123 MG IV (12:18)
--- NOTE | 2022-11-08 13:36 | MHC.CM.PN ---
Addendum entered by Ella Jones RN 11/08/22 14:10: CORRECTION - COST IS $1185/WEEK. Original Note: DAPTO COST IS $1850+ WEEKLY. PATIENT CANNOT AFFORD THIS. REFERRALS TO THREE [facility] ([facility]) TO INQUIRE IF THEY COULD ACCEPT ON DAPTO FOR 3 WEEKS. (END DATE NOVEMBER 27) PATIENT DOES NOT PREFER TO GO TO REHAB. SHE IS AWARE OF THE LACK OF CHOICES AT THIS TIME. ONE OPTION MAY BE A LESSER COST ABX. TO BE DISCUSSED WITH AND VASILIY RAMIREZ MADE AWARE OF HOLD UP
--- NOTE | 2022-11-08 15:57 | MHC.CM.PN ---
[facility] IS OFFERING A BED SATURDAY (DOSE OF DAPTO NEEDS TO RUN THROUGH MIDLINE) PLAN IS STILL TO TRY TO SECURE A CHEAPER ABX FOR PATIENT TO DC HOME, BUT NO ANSWER OF THIS NOTE
[2022-11-08 16:00] VITALS: BP 150/65; PULSE 61; RESP 16; TEMP 36.3; O2SAT 95
--- NOTE | 2022-11-08 16:11 | P.PICC_ITS ---
PICC Line Insertion MIDLINE INSERTION Diagnosis: [] Indication: [] Pertinent Labs: [] Technique: Following informed consent including risks, benefits and alternatives and using sterile technique including cap and mask, sterile gown, glove and drape, the [] arm was prepped and draped in the usual sterile fashion of full barrier technique with G. Following completion of [place] Protocol the skin and soft tissues were anesthetized with 1% Lidocaine plain. Using ultrasound guidance, [] vein access was obtained. Over an 0.018 wire through peel-away sheath, a [] PICC line was positioned. Catheter length is [] internal length, [] external length, for a total trimmed length of []. The procedure was performed in []. Tip verification was performed by Aashish Durán with Claire 3CG. Tip located in SVC. Ultrasound was used to document vein patency and for needle entry. A formal ultrasound picture and cardiac rhythm strip was recorded. Vascular Electric Meter Installer Helper has released the line for use and it is currently dressed with a StatLock, Tegaderm, and CHG disc. Verification has been performed for blood return and line patency. Arm Circumference: [] Equipment: [] Catheter Type: [] Lot #: []
--- NOTE | 2022-11-08 16:15 | HO.MIDLINE ---
Midline Insertion MIDLINE INSERTION Diagnosis: [UTI] Indication: [3 WEEKS OF ANTIBX] Pertinent Labs: REVIEWED] Technique: Using sterile technique including cap and mask, glove and drape, the [RIGHT] arm was prepped and draped in the usual sterile fashion of full barrier technique with CHG. Using ultrasound guidance, RIGHT BASILIC vein access was obtained ON FIRST ATTEMPT-[id number] NON-PASV MIDLINE was positioned. The procedure was performed in RM. 272. Ultrasound was used to document vein patency and for needle entry. A formal ultrasound picture was recorded. Vascular Glue Machine Operator has released the line for use and it is currently dressed with a StatLock, Tegaderm, and CHG disc. Verification has been performed for blood return and line patency. Arm Circumference: [27CM] Equipment: [BARD POWER GLIDE MIDLINE] Catheter Type: [[id number] NON-PASV MIDLINE] Lot #: [[id number]]
[2022-11-08] MEDS: Sodium Phosphate,Mono-Dibasic 133 ML ENEMA PR (16:54)
[2022-11-08 17:04] LABS: Glucose, Whole Blood 219 mg/dL (60-115)
[2022-11-08 20:00] VITALS: BP 143/65; PULSE 73; RESP 18; TEMP 36.6; O2SAT 95
[2022-11-08 20:28] LABS: Glucose, Whole Blood 218 mg/dL (60-115)
[2022-11-08] MEDS: Famotidine 20 MG TABLET 40 MG PO (20:35)
[2022-11-08] MEDS: Atorvastatin Calcium 80 MG TABLET PO (20:35)
[2022-11-09 03:39] VITALS: BP 135/63; PULSE 72; RESP 18; TEMP 36.7; O2SAT 93
[2022-11-09] MEDS: Acetaminophen 325 MG TABLET 650 MG PO ×2 (04:10→23:48)
[2022-11-09 07:47] VITALS: BP 134/58; PULSE 64; RESP 17; TEMP 36.6; O2SAT 96
[2022-11-09 07:53] LABS: Glucose, Whole Blood 192 mg/dL (60-115)
[2022-11-09 08:03] LABS: Creatinine Clr Calc Pharmacy 56.2; Estimated Glomerular Filt Rate 57
[2022-11-09] MEDS: Insulin Lispro 100 UNIT/ML 3 ML VIAL SUBCUT ×4 (08:12→21:37)
[2022-11-09] MEDS: amLODIPine Besylate 10 MG TABLET PO (08:13)
[2022-11-09] MEDS: DULoxetine HCl 60 MG CAPSULE.DR PO (08:13)
[2022-11-09] MEDS: 0.9 % Sodium Chloride Flush 3 ML SYRINGE IVFLUSH ×3 (08:13→20:04)
[2022-11-09] MEDS: Omeprazole 20 MG CAPSULE.DR PO (08:14)
[2022-11-09] MEDS: hydrALAZINE HCl 25 MG TABLET PO ×3 (08:14→20:04)
[2022-11-09] MEDS: Tolterodine Tartrate LA 4 MG CAP.ER.24H PO (08:14)
[2022-11-09] MEDS: Ferrous Sulfate 324 MG TABLET.DR PO (08:14)
[2022-11-09] MEDS: metFORMIN HCl 1,000 MG TABLET 1000 MG PO ×2 (08:14→21:38)
[2022-11-09] MEDS: Pregabalin 150 MG CAPSULE PO ×2 (08:14→20:04)
[2022-11-09] MEDS: Aspirin Enteric Coated 81 MG TABLET.DR PO (08:14)
[2022-11-09] MEDS: Escitalopram Oxalate 10 MG TABLET PO (08:14)
[2022-11-09] MEDS: carvediloL 25 MG TABLET PO ×2 (08:14→20:04)
[2022-11-09] MEDS: Ascorbic Acid 500 MG TABLET PO ×2 (08:14→20:04)
--- NOTE | 2022-11-09 09:49 | HO.PM.IMPN ---
Subjective Subjective Date of Service: 11/09/22 Interval History: f/u on MDR enteroccocus baceremia has no new complaint, awaiting dispo arrangements Physical Exam Vital Signs: Vital Signs: Last Vital Signs Temp 97.8 F 11/09/22 07:47 Pulse 64 11/09/22 07:47 Resp 17 11/09/22 07:47 BP 134/58 L 11/09/22 07:47 Pulse Ox 96 11/09/22 07:47 O2 Del Method 11/09/22 07:47 BMI result Body Mass Index 34.1 Const: Other: General: AO X 3, no acute distress Resp: CTA bilateral CVS: S1,S2,RRR GI: +BS, NT, no distention Skin: No rash Neuro: motor grossly intact Psych: appropriate affect Objective Data Active Medications Acetaminophen (Acetaminophen 325 Mg Tablet) 650 mg PO Q6H PRN PRN Reason: Pain, Mild (Pain Scale 1-3) Last Admin: 11/09/22 04:10 Dose: 650 mg Documented By: THOR Amlodipine Besylate (Amlodipine Besylate 10 Mg Tablet) 10 mg PO DAILY [facility]; Protocol Last Admin: 11/09/22 08:13 Dose: 10 mg Documented By: ERLIN Ascorbic Acid (Ascorbic Acid 500 Mg Tablet) 500 mg PO BID [facility] Last Admin: 11/09/22 08:14 Dose: 500 mg Documented By: ERLIN Aspirin (Aspirin Enteric Coated 81 Mg Tablet.) 81 mg PO DAILY [facility] Last Admin: 11/09/22 08:14 Dose: 81 mg Documented By: ERLIN Atorvastatin Calcium (Atorvastatin Calcium 80 Mg Tablet) 80 mg PO BEDTIME [facility] Last Admin: 11/08/22 20:35 Dose: 80 mg Documented By: MARIS Carvedilol (Carvedilol 25 Mg Tablet) 25 mg PO BID [facility]; Protocol Last Admin: 11/09/22 08:14 Dose: 25 mg Documented By: ERLIN Cyclobenzaprine HCl (Cyclobenzaprine Hcl 5 Mg Tablet) 5 mg PO BEDTIME PRN PRN Reason: Insomnia/Muscle spasms Dextrose (Dextrose 50 % 25 Gm/50 Ml Syringe) 25 gm IVPUSH Q15M PRN; Protocol PRN Reason: per Hypoglycemia Standing Ord. Docusate Sodium (Docusate Sodium 100 Mg Capsule) 100 mg PO DAILY PRN PRN Reason: Constipation Last Admin: 11/08/22 11:49 Dose: 100 mg Documented By: LIANNA Duloxetine HCl (Duloxetine Hcl 60 Mg Capsule.) 60 mg PO DAILY [facility] Last Admin: 11/09/22 08:13 Dose: 60 mg Documented By: ERLIN Escitalopram Oxalate (Escitalopram Oxalate 10 Mg Tablet) 10 mg PO DAILY [facility] Last Admin: 11/09/22 08:14 Dose: 10 mg Documented By: ERLIN Famotidine (Famotidine 20 Mg Tablet) 40 mg PO BEDTIME [facility] Last Admin: 11/08/22 20:35 Dose: 40 mg Documented By: MARIS Ferrous Sulfate (Ferrous Sulfate 324 Mg Tablet.) 324 mg PO DAILY [facility] Last Admin: 11/09/22 08:14 Dose: 324 mg Documented By: ERLIN Furosemide (Furosemide 40 Mg Tablet) 40 mg PO DAILY [facility]; Protocol Last Admin: 11/03/22 08:09 Dose: 40 mg Documented By: TOAN Glucose (Glucose Gel 15 Gm Gel..Gram.) 15 gm PO Q15M PRN; Protocol PRN Reason: per Hypoglycemia Standing Ord. Hydralazine HCl (Hydralazine Hcl 25 Mg Tablet) 25 mg PO TID [facility]; Protocol Last Admin: 11/09/22 08:14 Dose: 25 mg Documented By: ERLIN Daptomycin 575 mg/ Sodium (Chloride) 61.5 mls @ 123 mls/hr IV Q24H [facility] Last Infusion: 11/08/22 13:00 Dose: 0 mls/hr Documented By: LIANNA Insulin Human Lispro (Insulin Lispro 100 Unit/Ml 3 Ml Vial) 0 unit SUBCUT QIDACHS [facility]; Protocol Last Admin: 11/09/22 08:12 Dose: 2 unit Documented By: ERLIN Metformin HCl (Metformin Hcl 1,000 Mg Tablet) 1,000 mg PO BID [facility] Last Admin: 11/09/22 08:14 Dose: 1,000 mg Documented By: ERLIN Pt Own (Sulindac 150 (Mg Tablet)) 150 mg PO BID [facility] Last Admin: 11/03/22 22:22 Dose: Not Given Documented By: OTAN Non-Admin Reason: Med Not Available Pt Own (Ibrutinib [ Imbruvica] 420 Mg Tablet) 420 mg PO DAILY [facility] Last Admin: 11/09/22 08:15 Dose: 420 mg Documented By: ERLIN Omeprazole (Omeprazole 20 Mg Capsule.Dr) 20 mg PO DAILY [facility] Last Admin: 11/09/22 08:14 Dose: 20 mg Documented By: ERLIN Ondansetron HCl (Ondansetron Hcl 4 Mg/2 Ml Vial) 4 mg IVPUSH Q8H PRN PRN Reason: Nausea and Vomiting Last Admin: 10/29/22 22:18 Dose: 4 mg Documented By: CHAUNCEY Pregabalin (Pregabalin 150 Mg Capsule) 150 mg PO BID [facility] Last Admin: 11/09/22 08:14 Dose: 150 mg Documented By: ERLIN Senna (Sennosides 8.6 Mg Tablet) 17.2 mg PO BEDTIME PRN PRN Reason: CONSTIPATION Last Admin: 11/06/22 21:18 Dose: 17.2 mg Documented By: LOW Sitagliptin Phosphate (Sitagliptin Phosphate 100 Mg Tablet) 100 mg PO DAILY [facility] Last Admin: 11/09/22 08:14 Dose: Not Given Documented By: ERLIN Non-Admin Reason: Patient Refused Sodium Biphosphate/Sodium Phosphate (Sodium Phosphate,Allegheny-Dibasic 133 Ml Enema) 133 ml CA ONCE PRN PRN Reason: Constipation Last Admin: 11/08/22 16:54 Dose: 133 ml Documented By: LISA Sodium Chloride (0.9 % Sodium Chloride Flush 3 Ml Syringe) 3 [facility] Last Admin: 11/09/22 08:13 Dose: 3 ml Documented By: ERLIN Spironolactone (Spironolactone 25 Mg Tablet) 25 mg PO DAILY [facility]; Protocol Last Admin: 11/03/22 08:09 Dose: 25 mg Documented By: TOAN Tolterodine Tartrate (Tolterodine Tartrate La 4 Mg Cap.Er.24h) 4 mg PO DAILY [facility] Last Admin: 11/09/22 08:14 Dose: 4 mg Documented By: ERLIN Labs 10/30/22 04:17 11/09/22 05:51 Labs: Laboratory Results - last 24 hr 03/02/23 03/02/23 03/02/23 10:53 16:42 20:11 Estim Creat Clear Calc Estimated GFR POC Glucose 260 H 219 H 218 H 11/09/22 11/09/22 05:51 07:49 Estim Creat Clear Calc 56.2 Estimated GFR 57 POC Glucose 192 H Assessment and Plan (1) Enterococcal bacteremia: Status: Acute (2) Hyperglycemia: Status: Acute (3) Morbid obesity: Status: Acute Plan 77-year-old female with multiple past medical history as well as multiple allergies to many antibiotics presents to the hospital with confusion, increased lethargy found to have acute UTI failed outpatient therapy Sepsis UTI/ gram positive enterococcus likely related to UTI from chronic suprapubic catheter, last changed in August blood cultures-enterococcus - repeat blood culture -09/10 blood culture from11/02/22 -grew enterococcus again, BCX 11/05 negative at 48 soniya parapsilosis,Achromobacter xylosoxidans-10,000 to 50,000 cfu/mL--probably contamination TTE:no vegetations, hold [place] unless recent cultures still positive Continue Dapto, ID recommends 3 weeks Daptom starting november 07 and ending november 27, requesting a midline today Dapto is very costly $1185 and may not be able to afford it, discussing alternative with ID ?diabetes with hyperglycemia, better continue insulin, restarted Metformin 11/07 ?hypertension continue home? antihypertensives morbid obesity:? Encouraged to lose weight. Thrombocytopenia: Seems chronic. not due to sepsis. ?DVT prophylaxis:? scd due to Thrombocytopenia. Pt evalwill need home pt on discharge. ?inpatient need: sepsis/ uti /bacteremia-needs iv antibiotics therapy, blood culture persistently positive Enterococcus,need to have clear blood cultures before further dispo planning Time Spent With Patient Time: Total time managing care of this patient today ____ minutes. Quality Stroke Does the patient have a stroke diagnosis?: No VTE Prior VTE?: No VTE Risk Level:: Medical - moderate - high VTE Device Contraindication: Treatment Not Indicated VTE Drug Contraindication: N/A - Med Ordered
[2022-11-09 11:32] LABS: Glucose, Whole Blood 236 mg/dL (60-115)
[2022-11-09] MEDS: DAPTOmycin 575 MG in 0.9 % Sodium Chloride 50 ML 123 MG IV (11:39)
[2022-11-09 12:47] LABS: IDNOW Serial# 55D5AD1C
[2022-11-09 12:48] LABS: COVID-19 Test Negative (Negative)
--- NOTE | 2022-11-09 14:41 | MHC.CM.PN ---
Addendum entered by Ella Jones RN 11/09/22 15:24: IMM 11/09 IN CHART Original Note: PATIENT TO REMAIN AN EXTRA DAY AND START DAILY VISITS TO [facility] HERE AT [facility] MADE AWARE. SPOUSE AND PATIENT AWARE.
[2022-11-09 15:25] VITALS: BP 138/63; PULSE 68; RESP 16; TEMP 36.4; O2SAT 94
[2022-11-09 16:14] LABS: Glucose, Whole Blood 176 mg/dL (60-115)
[2022-11-09 19:43] VITALS: BP 158/67; PULSE 68; RESP 18; TEMP 36.2; O2SAT 94
[2022-11-09] MEDS: Famotidine 20 MG TABLET 40 MG PO (20:04)
[2022-11-09] MEDS: Atorvastatin Calcium 80 MG TABLET PO (20:04)
[2022-11-09 21:29] LABS: Glucose, Whole Blood 218 mg/dL (60-115)
--- NOTE | 2022-11-09 23:13 | PC.RT ---
Pt refusing CPAP at this time
[2022-11-10] MEDS: oxyCODONE HCl Immed Release 5 MG TABLET PO (00:27)
[2022-11-10 04:00] VITALS: BP 145/71; PULSE 62; RESP 17; TEMP 36.5; O2SAT 95
[2022-11-10 05:51] LABS: Creatinine Clr Calc Pharmacy 60.6; Estimated Glomerular Filt Rate > 60
[2022-11-10 07:45] VITALS: BP 129/58; PULSE 68; RESP 18; TEMP 36.2; O2SAT 95
[2022-11-10 07:58] LABS: Glucose, Whole Blood 188 mg/dL (60-115)
[2022-11-10] MEDS: Pregabalin 150 MG CAPSULE PO (08:05)
[2022-11-10] MEDS: Insulin Lispro 100 UNIT/ML 3 ML VIAL SUBCUT ×2 (08:05→12:02)
[2022-11-10] MEDS: DULoxetine HCl 60 MG CAPSULE.DR PO (08:05)
[2022-11-10] MEDS: Omeprazole 20 MG CAPSULE.DR PO (08:05)
[2022-11-10] MEDS: Aspirin Enteric Coated 81 MG TABLET.DR PO (08:05)
[2022-11-10] MEDS: carvediloL 25 MG TABLET PO (08:06)
[2022-11-10] MEDS: Ferrous Sulfate 324 MG TABLET.DR PO (08:06)
[2022-11-10] MEDS: Ascorbic Acid 500 MG TABLET PO (08:06)
[2022-11-10] MEDS: Tolterodine Tartrate LA 4 MG CAP.ER.24H PO (08:06)
[2022-11-10] MEDS: hydrALAZINE HCl 25 MG TABLET PO (08:06)
[2022-11-10] MEDS: metFORMIN HCl 1,000 MG TABLET 1000 MG PO (08:06)
[2022-11-10] MEDS: amLODIPine Besylate 10 MG TABLET PO (08:06)
[2022-11-10] MEDS: SITagliptin Phosphate 100 MG TABLET PO (08:06)
[2022-11-10] MEDS: Escitalopram Oxalate 10 MG TABLET PO (08:06)
[2022-11-10] MEDS: 0.9 % Sodium Chloride Flush 3 ML SYRINGE IVFLUSH (08:07)
--- NOTE | 2022-11-10 10:19 | PM.DS ---
DS: Providers Provider Date of Service: 11/10/22 Date of admission: 10/30/22 13:21 Primary care physician: Ricardo Breen MD Consults: 10/30/22 12:31 Consult to Urology Routine Consulting Provider: Ceferino Hayes Reason for consultation: uti/subrapubic catheter 11/01/22 09:32 Consult to Infectious Diseases Routine Consulting Provider: Paola Martinez Reason for consultation: bacteremia persitent Has provider been notified: No 11/05/22 12:37 Consult to Cardiology Routine Consulting Provider: [facility] Reason for consultation: persistent bacteremia(enterococous) Has provider been notified: No DS: Diagnosis Discharge Diagnosis (1) Enterococcal bacteremia: Status: Acute (2) Hyperglycemia: Status: Acute (3) Morbid obesity: Status: Acute DS: Summary Hospital Course Hospital Course: 77-year-old female with past medical history of recurrent UTI, history of breast cancer, chronic suprapubic catheter, HLD, diabetes, CLL, CVA, depression, sleep apnea on CPAP, HTN, presents to the hospital with complaints of lethargy, and urinary symptoms.? Patient is alert oriented x3, reports that she has been very weak, having symptoms of UTI with urinary frequency, as well as burning on urination.? Patient reports pain in the suprapubic region, reports that she has been having the symptoms for the past 1 week.? feels feverish but no chills. ? Denies any chest pain, no shortness of breath,? lower extremity edema.? No numbness, no tingling. ? On arrival to the ED patient hemodynamically stable with no significant abnormal vitals Labs are? significant for WBC count of 12.9, hemoglobin of 11.9, hematocrit 36.1, urine positive for leukocyte Estrace, WBC, ?patient has been admitted in the past for similar symptoms, with positive UA.? Patient was recommended to be discharged on amoxicillin in the past, but patient reports history of stroke and blood clots to march cillin, therefore she was discharged on Bactrim. Abdomen pelvic CT shows no acute abnormality in the CT scan of the abdomen and pelvis, suprapubic Henao catheter in place Hospital course: Sepsis from UTI and Enterococcus faecalis bacteremia, urine source. Initially was on IV vancomycin but repeat cultures continued to be positive and SO infectious disease recommended changging to Daptomycin and following that repeat cultures finally became negaive. Last culture from 11/05 has been negative over 72 hours now, she is afebrile. ID is recommending treating for additional 21 days which will end on 11/27/22. A midline has been inserted on 11/08/22. She had an echo that showed no vegetation and WESTON was not done since cultures have been negative now. Urine CultureCandida parapsilosis, Achromobacter xylosoxidans--deemed to be probably colonization and warrant no specific treatment ?diabetes, continue Metformin and SSI ?hypertension--resume home medications morbid obesity:? Encouraged to lose weight. Thrombocytopenia: Seems chronic. not due to sepsis. ? Time Spent with Patient Time attestation: Total time managing care of this patient today ____ minutes. Discharge coordination time: Greater than 30 minutes Quality: Safe Use of Opioids Does Pt have an Active Cancer Diagnosis on the Problem List?: No Quality: Stroke Does the patient have a stroke diagnosis?: No Physical Exam Vital Signs: Vital Signs: Selected Entries 11/10/22 07:45 Temperature 97.1 F Pulse Rate 68 Respiratory Rate 18 Blood Pressure 129/58 L Pulse Oximetry 95 Oxygen Delivery Me thod Room Air Const: Other: General: AO X 3, no acute distress Resp: CTA bilateral CVS: S1,S2,RRR GI: +BS, NT, no distention Skin: No rash Neuro: motor grossly intact Psych: appropriate affect DS: Data Data Completed and Pending Labs on day of discharge: Laboratory Results - last 24 hr 11/08/22 11/08/22 11/09/22 16:42 20:11 05:51 Creatinine 0.96 Estim Creat Clear Calc 56.2 Estimated GFR 57 POC Glucose 219 H 218 H 11/09/22 07:49 Creatinine Estim Creat Clear Calc Estimated GFR POC Glucose 192 H Preliminary micro results at discharge 11/05/22 09:36 Blood Culture - Preliminary Blood - Venous No growth after 48 hours. 11/05/22 09:36 Blood Culture - Preliminary Blood - Venous No growth after 48 hours. Discharge Plan Discharge Anticipated Discharge Date/Time: 11/10/22 10:17 Patient Disposition: Home, Self-Care Discharge Diagnosis: Sepsis, UTI, bacteremia Referrals: Ricardo Breen MD [Primary Care Provider] - 1 Week Discharge Medications: New daptomycin [Cubicin RF] 500 mg recon soln 575 mg IV Q24H Qty: 21 0RF Rx Instructions: administer over 30 mins, Last dose November 27 Continued (DME) syringe with needle [BD Luer-Humphrey Syringe] 3 mL 22 x 1 1/2 syringe See Rx Instructions .ROUTE .MEDSUPPLY Qty: 20 0RF Rx Instructions: As directed famotidine 40 mg tablet 40 mg PO BEDTIME Qty: 90 1RF ondansetron HCl [Zofran] 4 mg tablet 4 mg PO Q8H PRN (Reason: Nausea) 4RF atorvastatin 80 mg tablet 80 mg PO QPM Qty: 90 3RF solifenacin [Vesicare] 5 mg tablet 5 mg PO DAILY 5 Days Qty: 5 0RF Rx Instructions: take for 5 day treatment ferrous sulfate [iron] 325 mg (65 mg iron) Tablet 325 mg PO DAILY Qty: 120 6RF ascorbic acid (vitamin C) [Vitamin C] 500 mg Tablet 500 mg PO BID Qty: 120 4RF furosemide 20 mg tablet 40 mg PO QAM lorazepam 0.5 mg tablet 1 tab PO Q8H PRN (Reason: anxiety) sennosides [senna] 8.6 mg tablet 17.2 mg PO BEDTIME PRN (Reason: Constipation) nitrofurantoin macrocrystal 100 mg capsule 100 mg PO BID Rx Instructions: must administer with a meal/food. take until directed to stop by Imbruvica 420 mg Tablet 420 mg PO DAILY spironolactone 25 mg tablet 25 mg PO DAILY duloxetine 60 mg capsule,delayed release(DR/EC) 60 mg PO DAILY cyclobenzaprine 5 mg tablet 5 mg PO BEDTIME PRN (Reason: Insomnia/Muscle spasms) citalopram 20 mg tablet 20 mg PO DAILY metformin 1,000 mg tablet 1,000 mg PO BID carvedilol 25 mg tablet 25 mg PO BID amlodipine 10 mg tablet 10 mg PO DAILY aspirin [Enteric Coated Aspirin] 81 mg tablet,delayed release (DR/EC) 81 mg PO DAILY Qty: 90 4RF pantoprazole 40 mg tablet,delayed release (DR/EC) 40 mg PO DAILY Qty: 90 4RF Januvia 100 mg tablet 100 mg PO QAM pregabalin 150 mg capsule 150 mg PO BID sulindac 150 mg tablet 150 mg PO BID hydralazine 25 mg tablet 25 mg PO TID (DME) Accu-Chek Guide test strips Strip See Rx Instructions .ROUTE DAILY Qty: 10 Rx Instructions: As directed Discharge Orders: Discharge Order (Routine); Ordered 11/09/22 Ordered By: Sha Reno Diet: Advance to usual diet Activity on Discharge: As tolerated Stand Alone Forms: Patient Portal Discharge page Care Plan Goals: Recovery from sepsis, UTI, and bacteremia Health Concerns: recurrent UTI, bacteremia and sepsis Plan of Treatment: To complete treatment course with Daptomycin 575 mg daily until november 27- to come to short stay surgery daily resume prior home medications and follow up with PCP and Dr. Martinez Assessment: as above
[2022-11-10] MEDS: DAPTOmycin 575 MG in 0.9 % Sodium Chloride 50 ML 123 MG IV (11:01)
[2022-11-10 11:30] LABS: Glucose, Whole Blood 186 mg/dL (60-115)
--- NOTE | 2022-11-10 12:08 | MHC.CM.PN ---
PT WILL DC HOME TODAY AND PRESENT TO [facility] [place] M[place] AT 1000 HOURS FOR ADMINISTRATION OF HER ABX. SHE IS SCHEDULED WITH [facility] THROUGH SATURDAY AT WHICH TIME THE NURSE THERE WILL SCHEDULE HER ONGOING VISITS PTS WILL TRANSPORT
== END 2022-11-10 13:24 | disposition home or self-care (01) | DRG 698 ==
LOC: HO.ED 20:54 → HO.EDOVER 21:26 → HO.S3 10-30 06:15
PROVIDERS: Internal Medicine; Physician Assistant; Admitting Provider Internal Medicine; Emergency Provider Emergency Medicine; PCP Family Medicine; Visit Provider Internal Medicine
PROC: 05HB33Z Insertion of Infusion Device into Right Basilic Vein, Percutaneous Approach (ICD-10-PCS; principal; 2022-11-08 14:40)
DX: T83.518A Infection and inflammatory reaction due to other urinary catheter, initial encounter (principal); A41.81 Sepsis due to Enterococcus; Z16.24 Resistance to multiple antibiotics; M79.7 Fibromyalgia; I25.10 Atherosclerotic heart disease of native coronary artery without angina pectoris; R33.9 Retention of urine, unspecified; E78.00 Pure hypercholesterolemia, unspecified; D72.829 Elevated white blood cell count, unspecified; B95.2 Enterococcus as the cause of diseases classified elsewhere; E11.65 Type 2 diabetes mellitus with hyperglycemia; E66.01 Morbid (severe) obesity due to excess calories; N31.9 Neuromuscular dysfunction of bladder, unspecified; I10 Essential (primary) hypertension; D69.6 Thrombocytopenia, unspecified; Z68.34 Body mass index [BMI] 34.0-34.9, adult; Z20.822 Contact with and (suspected) exposure to COVID-19; Z87.440 Personal history of urinary (tract) infections; Z85.6 Personal history of leukemia; Z86.73 Personal history of transient ischemic attack (TIA), and cerebral infarction without residual deficits; Z85.3 Personal history of malignant neoplasm of breast; Z91.041 Radiographic dye allergy status; Z88.0 Allergy status to penicillin; Z88.1 Allergy status to other antibiotic agents; Z88.5 Allergy status to narcotic agent; Z88.6 Allergy status to analgesic agent; Z88.7 Allergy status to serum and vaccine; Z88.8 Allergy status to other drugs, medicaments and biological substances; Z79.82 Long term (current) use of aspirin; Z79.84 Long term (current) use of oral hypoglycemic drugs; Z79.899 Other long term (current) drug therapy
CPT/HCPCS: 36410; 36415; 71045; 74176; 80048; 80053; 80202; 81001; 82550; 82565; 82947; 83605; 83735; 83880; 85025; 87040; 87077; 87086; 87088; 87147; 87186; 87205; 87635; 93306; 94660; 97110; 97116; 97162; 99221; 99285; J0878; J1650; J2270; J2405; J2543; J3370

== ENCOUNTER 2022-11-11 09:30 | Outpatient (REF) | payer MEDICARE, OTHER, SELFPAY | END 2022-11-11 09:31 | disposition home or self-care (01) | LOC: HO.MDS 09:30 | PROVIDERS: PCP Family Medicine; Visit Provider Internal Medicine | DX: Z45.2 Encounter for adjustment and management of vascular access device (principal); K52.9 Noninfective gastroenteritis and colitis, unspecified; R78.81 Bacteremia | CPT/HCPCS: 96365; J0878 ==

== ENCOUNTER 2022-11-12 09:51 | Outpatient (REF) | payer MEDICARE, OTHER, SELFPAY | END 2022-11-12 09:52 | disposition home or self-care (01) | LOC: HO.MDS 09:51 | PROVIDERS: PCP Family Medicine; Visit Provider Internal Medicine | DX: Z45.2 Encounter for adjustment and management of vascular access device (principal); K52.9 Noninfective gastroenteritis and colitis, unspecified; R78.81 Bacteremia | CPT/HCPCS: 96365; J0878 ==

== ENCOUNTER 2022-11-13 10:36 | Outpatient (REF) | payer MEDICARE, OTHER, SELFPAY | END 2022-11-13 10:37 | disposition home or self-care (01) | LOC: HO.MDS 10:36 | PROVIDERS: Visit Provider Internal Medicine | DX: Z45.2 Encounter for adjustment and management of vascular access device (principal); K52.9 Noninfective gastroenteritis and colitis, unspecified; R78.81 Bacteremia | CPT/HCPCS: 96365; J0878 ==

== ENCOUNTER 2022-11-14 10:22 | Outpatient (REF) | payer MEDICARE, OTHER, SELFPAY | END 2022-11-14 10:23 | disposition home or self-care (01) | LOC: HO.MDS 10:22 | PROVIDERS: Visit Provider Internal Medicine | DX: Z45.2 Encounter for adjustment and management of vascular access device (principal); K52.9 Noninfective gastroenteritis and colitis, unspecified; R78.81 Bacteremia | CPT/HCPCS: 96365; J0878 ==

== ENCOUNTER 2022-11-15 13:36 | Outpatient (REF) | payer MEDICARE, OTHER, SELFPAY | END 2022-11-15 13:37 | disposition home or self-care (01) | LOC: HO.MDS 13:36 | PROVIDERS: Visit Provider Internal Medicine | DX: Z45.2 Encounter for adjustment and management of vascular access device (principal); K52.9 Noninfective gastroenteritis and colitis, unspecified; R78.81 Bacteremia | CPT/HCPCS: 96365; J0878 ==

== ENCOUNTER 2022-11-16 11:21 | Outpatient (REF) | payer MEDICARE, OTHER, SELFPAY | END 2022-11-16 11:22 | disposition home or self-care (01) | LOC: HO.MDS 11:21 | PROVIDERS: Visit Provider Internal Medicine | DX: Z45.2 Encounter for adjustment and management of vascular access device (principal); K52.9 Noninfective gastroenteritis and colitis, unspecified; R78.81 Bacteremia | CPT/HCPCS: 96365; J0878 ==

== ENCOUNTER 2022-11-17 09:53 | Outpatient (REF) | payer MEDICARE, OTHER, SELFPAY | END 2022-11-17 09:54 | disposition home or self-care (01) | LOC: HO.MDS 09:53 | PROVIDERS: Visit Provider Internal Medicine | DX: R78.81 Bacteremia (principal); B95.2 Enterococcus as the cause of diseases classified elsewhere | CPT/HCPCS: 96365; J0878 ==

== ENCOUNTER 2022-11-18 09:29 | Outpatient (REF) | payer MEDICARE, OTHER, SELFPAY | END 2022-11-18 09:30 | disposition home or self-care (01) | LOC: HO.MDS 09:29 | PROVIDERS: Visit Provider Internal Medicine | DX: Z45.2 Encounter for adjustment and management of vascular access device (principal); N39.0 Urinary tract infection, site not specified; B95.2 Enterococcus as the cause of diseases classified elsewhere; R78.81 Bacteremia | CPT/HCPCS: 96374; J0878 ==

== ENCOUNTER 2022-11-19 13:29 | Outpatient (REF) | payer MEDICARE, OTHER, SELFPAY | END 2022-11-19 13:30 | disposition home or self-care (01) | LOC: HO.MDS 13:29 | PROVIDERS: Visit Provider Internal Medicine | DX: R78.81 Bacteremia (principal); B95.2 Enterococcus as the cause of diseases classified elsewhere | CPT/HCPCS: 96365; J0878 ==

== ENCOUNTER 2022-11-20 13:04 | Outpatient (REF) | payer MEDICARE, OTHER, SELFPAY | END 2022-11-20 13:05 | disposition home or self-care (01) | LOC: HO.MDS 13:04 | PROVIDERS: Visit Provider Internal Medicine | DX: R78.81 Bacteremia (principal); B95.2 Enterococcus as the cause of diseases classified elsewhere | CPT/HCPCS: 96365; J0878 ==

== ENCOUNTER 2022-11-21 11:41 | Outpatient (REF) | payer MEDICARE, OTHER, SELFPAY | END 2022-11-21 11:42 | disposition home or self-care (01) | LOC: HO.MDS 11:41 | PROVIDERS: Visit Provider Internal Medicine | DX: R78.81 Bacteremia (principal); B95.2 Enterococcus as the cause of diseases classified elsewhere | CPT/HCPCS: 96365; J0878 ==

== ENCOUNTER 2022-11-22 13:17 | Outpatient (REF) | payer MEDICARE, OTHER, SELFPAY ==
[2022-11-22 14:06] LABS: Alanine Aminotransferase 12 U/L (0-31); Albumin Level 3.2 g/dL (3.5-5.0); Alkaline Phosphatase 70 U/L (39-117); Aspartate Amino Transferase 14 U/L (5-31); Bilirubin Direct 0.4 mg/dL (0.0-0.5); Bilirubin Total 1.2 mg/dL (0.0-1.0)
== END 2022-11-22 13:18 | disposition home or self-care (01) ==
LOC: HO.MDS 13:17
PROVIDERS: Visit Provider Internal Medicine
DX: R78.81 Bacteremia (principal); B95.2 Enterococcus as the cause of diseases classified elsewhere
CPT/HCPCS: 36415; 80076; 82550; 96365; J0690; J0878

== ENCOUNTER 2022-11-23 12:32 | Outpatient (REF) | payer MEDICARE, OTHER, SELFPAY ==
[2022-11-23 13:27] LABS: MANUAL DIFF FLAG NO
[2022-11-23 14:01] LABS: Basophils Absolute Auto 0.1 X10*3/uL (0.0-0.2); Basophils Percent Auto 0.7 % (0-2); Eosinophils Absolute Auto 0.4 X10*3/uL (0.0-0.4); Eosinophils Percent Auto 3.5 % (0-4); Hematocrit 32.9 % (37.0-47.0); Hemoglobin 10.3 g/dl (12.0-16.0); Imm Gran Abs Auto 0.27 X10*3/uL (0.00-0.03); Imm Gran Pct Auto 2.1 % (0.0-0.4); Lymphocytes Absolute Auto 3.1 X10*3/uL (1.2-4.9); Lymphocytes Percent Auto 24.7 % (20-40); Mean Corpuscular HGB Conc 31.3 g/dl (31.0-35.0); Mean Corpuscular Hemoglobin 28.1 pg (27.0-33.0); Mean Corpuscular Volume 89.9 fL (80.0-98.0); Mean Platelet Volume 11.4 fL (9.4-12.3); Monocytes Percent Auto 7.6 % (2-11); Neutrophils Absolute Auto 7.7 x10*3/uL (2.0-8.3); Neutrophils Percent Auto 61.4 % (45-73); Platelet Count 176 X10*3/uL (160-400); Red Blood Count 3.66 X10*6/uL (4.20-5.50); Red Cell Distribution Width 14.1 % (11.0-16.0); White Blood Count 12.6 X10*3/uL (4.8-10.8)
[2022-11-23 14:15] LABS: Alanine Aminotransferase 13 U/L (0-31); Albumin Level 3.3 g/dL (3.5-5.0); Alkaline Phosphatase 75 U/L (39-117); Anion Gap 13 (12-20); Aspartate Amino Transferase 14 U/L (5-31); Bilirubin Total 1.3 mg/dL (0.0-1.0); Blood Urea Nitrogen 16 mg/dL (9-16); C Reactive Protein 3.57 mg/dL (< or = 0.50); Calcium 9.1 mg/dL (8.4-10.2); Carbon Dioxide 29 mmol/L (22-29); Chloride 97 mmol/L (96-108); Estimated Glomerular Filt Rate 49; Glucose Random 197 mg/dL (60-115); Phosphorus 3.9 mg/dL (2.7-4.5); Potassium 4.7 mmol/L (3.3-5.1); Sodium 134 mmol/L (135-145); Total Protein 5.2 g/dL (6.5-8.0)
[2022-11-23 14:42] LABS: Erythrocyte Sedimentation Rate 66 MM/HR (0-20)
== END 2022-11-23 12:33 | disposition home or self-care (01) ==
LOC: HO.10HDL 12:32
PROVIDERS: Family Medicine; Visit Provider Internal Medicine
DX: Z13.89 Encounter for screening for other disorder (principal)
CPT/HCPCS: 36415; 80053; 84100; 85025; 85652; 86140

== ENCOUNTER 2022-11-23 14:11 | Outpatient (REF) | payer MEDICARE, OTHER, SELFPAY | END 2022-11-23 14:12 | disposition home or self-care (01) | LOC: HO.MDS 14:11 | PROVIDERS: Visit Provider Internal Medicine | DX: R78.81 Bacteremia (principal); B95.2 Enterococcus as the cause of diseases classified elsewhere; G89.29 Other chronic pain; M25.552 Pain in left hip; M16.12 Unilateral primary osteoarthritis, left hip; M48.061 Spinal stenosis, lumbar region without neurogenic claudication; M51.36 Other intervertebral disc degeneration, lumbar region; M41.9 Scoliosis, unspecified; M79.7 Fibromyalgia; M96.1 Postlaminectomy syndrome, not elsewhere classified; E11.9 Type 2 diabetes mellitus without complications; Z85.6 Personal history of leukemia; Z79.891 Long term (current) use of opiate analgesic; Z99.3 Dependence on wheelchair | CPT/HCPCS: 36415; 80053; 84100; 85025; 85652; 86140; 96365; 99202; J0878 ==

== ENCOUNTER 2022-11-24 08:38 | Outpatient (REF) | payer MEDICARE, OTHER, SELFPAY | END 2022-11-24 08:39 | disposition home or self-care (01) | LOC: HO.MDS 08:38 | PROVIDERS: PCP Physician Assistant; Visit Provider Internal Medicine | DX: R78.81 Bacteremia (principal); B95.2 Enterococcus as the cause of diseases classified elsewhere | CPT/HCPCS: 87086; 87088; 87186; 96365; J0878 ==

== ENCOUNTER 2022-11-24 08:51 | Outpatient (REF) | payer MEDICARE, OTHER, SELFPAY | END 2022-11-24 08:52 | disposition home or self-care (01) | LOC: HO.LNP 08:51 | PROVIDERS: Visit Provider Urology | DX: Z13.89 Encounter for screening for other disorder (principal) | CPT/HCPCS: 87086 ==

== ENCOUNTER 2022-11-25 08:39 | Outpatient (REF) | payer MEDICARE, OTHER, SELFPAY | END 2022-11-25 08:40 | disposition home or self-care (01) | LOC: HO.MDS 08:39 | PROVIDERS: PCP Family Medicine; Visit Provider Internal Medicine | DX: R78.81 Bacteremia (principal); B95.2 Enterococcus as the cause of diseases classified elsewhere | CPT/HCPCS: 96360; 96365; J0878 ==

== ENCOUNTER 2022-11-26 10:41 | Outpatient (REF) | payer MEDICARE, OTHER, SELFPAY | END 2022-11-26 10:42 | disposition home or self-care (01) | LOC: HO.MDS 10:41 | PROVIDERS: Visit Provider Internal Medicine | DX: R78.81 Bacteremia (principal); B95.2 Enterococcus as the cause of diseases classified elsewhere | CPT/HCPCS: 96365; J0878 ==

== ENCOUNTER 2022-11-27 10:41 | Outpatient (REF) | payer MEDICARE, OTHER, SELFPAY | END 2022-11-27 10:42 | disposition home or self-care (01) | LOC: HO.MDS 10:41 | PROVIDERS: Visit Provider Internal Medicine | DX: R78.81 Bacteremia (principal); B95.2 Enterococcus as the cause of diseases classified elsewhere | CPT/HCPCS: 96365; J0878 ==

== ENCOUNTER 2022-11-28 11:02 | Outpatient (REF) | payer MEDICARE, OTHER, SELFPAY | END 2022-11-28 11:03 | disposition home or self-care (01) | LOC: HO.MDS 11:02 | PROVIDERS: Visit Provider Internal Medicine | DX: Z53.9 Procedure and treatment not carried out, unspecified reason (principal) ==

== ENCOUNTER 2022-11-30 13:10 | Outpatient (REF) | payer MEDICARE, OTHER, SELFPAY | END 2022-11-30 13:11 | disposition home or self-care (01) | LOC: HO.LAB 13:10 | PROVIDERS: PCP Family Medicine; Visit Provider Internal Medicine | DX: R78.81 Bacteremia (principal); B95.2 Enterococcus as the cause of diseases classified elsewhere; N39.0 Urinary tract infection, site not specified | CPT/HCPCS: 87040; 99212 ==

== ENCOUNTER 2022-12-06 08:45 | Outpatient (AMB) | payer MEDICARE, OTHER, SELFPAY ==
--- NOTE | 2022-12-06 08:47 | MHC.OFFVIS ---
Intake Intake Visit Reasons: follow up s/p multiple [facility] admissions Intake Note: Patient is present for Follow up SPT Urology Med: None Antibiotic Allergy: Cephalexin, Penicillins, Levofloxacin, Cipro, Amoxicillin Blood Thinner: Aspirin Allergies amoxicillin [AMOXICILLIN] Allergy (Severe, Verified 05/08/23 14:22) stroke, blood clots ciprofloxacin [From CIPRO] Allergy (Severe, Verified 05/08/23 14:22) ANAPHYLAXIS Iodinated Contrast Media [IV DYE, IODINE CONTAINING CONTRAST ] Allergy (Severe, Verified 05/08/23 14:22) HIVES levofloxacin Allergy (Severe, Verified 05/08/23 14:22) Anaphylaxis liraglutide Allergy (Severe, Verified 05/08/23 14:22) Headache Penicillins Allergy (Severe, Verified 05/08/23 14:22) stroke, blood clots phenazopyridine [Pyridium] Allergy (Severe, Verified 05/08/23 14:22) Anaphylaxis FREYA Inhibitors Allergy (Intermediate, Verified 05/08/23 14:22) Cough ARB-Angiotensin Receptor Antagonist Allergy (Intermediate, Verified 05/08/23 14:22) Cough atorvastatin Allergy (Intermediate, Verified 05/08/23 14:22) Shortness of Breath cefpodoxime Allergy (Intermediate, Verified 05/08/23 14:22) Dizziness, nausea celecoxib [From CELEBREX] Allergy (Intermediate, Verified 05/08/23 14:22) HIVES doxazosin Allergy (Intermediate, Verified 05/08/23 14:22) Shortness of Breath fluticasone [Advair Diskus] Allergy (Intermediate, Verified 05/08/23 14:22) Anxiety gabapentin [From Neurontin] Allergy (Intermediate, Verified 05/08/23 14:22) Headache hydralazine Allergy (Intermediate, Verified 05/08/23 14:22) Shortness of Breath latex Allergy (Intermediate, Verified 05/08/23 14:22) Hives linezolid Allergy (Intermediate, Verified 05/08/23 14:22) Nausea and Vomiting meloxicam Allergy (Intermediate, Verified 05/08/23 14:22) Unknown salmeterol [Advair Diskus] Allergy (Intermediate, Verified 05/08/23 14:22) Anxiety Tetanus Vaccines and Toxoid Allergy (Intermediate, Verified 05/08/23 14:22) Swelling torsemide Allergy (Intermediate, Verified 05/08/23 14:22) Shortness of Breath cephalexin [Keflex] Allergy (Mild, Verified 05/08/23 14:22) Nausea HPI HPI Comments History of Present Illness Details Kaitlin is a very pleasant female. She is a patient of Dr. Tijerina. She is here for the following urologic conditions - neurogenic bladder - recurrent UTI - nephrolithiasis - stress incontinence Reason outpatient treatment for UTI Has had discussion with orthopedic surgery regarding hip replacement Will need to attempt to suppress infection for his least 3-6 months Trial of methenamine with vitamin-C Urinary retention with incomplete bladder emptying Incomplete emptying Suprapubic tube placed October 2021 Background of diabetes Has CLL and is on chronic immunosuppression which increases risk of infection substantially Nephrolithiasis 11/28 - ultrasound bilateral stones 8 mm left, 5 mm right Urinary Tract Infection: Last UTI - ceftriaxone 1gm daily 5 days They present for recurrent UTI's. Associated constipation - allergies to cipro - did have penicillin desensitization. The frequency of recurrences has been persistent recurrence. Therapy has included - Gentamicin instillation - macrobid - not well tolerated 06/27 Augmentin and 3rd generation all capsules poor in 07/28 Macrobid and 3rd generation careful support. Prior cultures have shown 05/25 - klebsiella sp.- Gentamicin resistant 06/25 - MicroDNA - enteroccus/E.coli 10^4 Bactrim/macrobid/levaquin 12/25 Microgen - 3 species - levaquin/ cefpodoxime 12/26 E.Coli levaquin/macrobid 05/28 E.Coli levaquin/gentamycin 06/27 E.Coli and Enterococcus 09/28 Strep Agalact - tx with 5 days kelfex. Recent testing included 09/28 Bladder biopsy with chronic inflammation - rectocele with incomplete emptying. Relevant medical history diabetes Yes constipation Yes incomplete bladder emptying Yes renal stones No genitourinary surgery Yes association of infections with intercourse No history of vesicoureteral reflux No Therapeutic plan will include suprapubic tube placement [facility] Medical History Allergy to multiple antibiotics Anemia Arthritis Arthritis of left hip CLL (chronic lymphocytic leukemia) CLL (chronic lymphocytic leukemia) Depression Diabetes mellitus Diabetes with neurologic complications Fibromyalgia History of bilateral breast cancer History of blood transfusion History of CVA (cerebrovascular accident) History of numbness Hypercholesterolemia Hypertension Morbid obesity Neurogenic urinary bladder disorder Osteoarthritis PONV (postoperative nausea and vomiting) Seasonal allergies Self-catheterizes urinary bladder Sleep apnea Type 2 diabetes mellitus with unspecified complications Urinary retention with incomplete bladder emptying Wears dentures Surgical History (Updated 05/08/23 @ 14:27 by Alise Weaver) History of back surgery History of biopsy of bladder History of bladder repair surgery History of esophagogastroduodenoscopy (EGD) History of suprapubic catheter History of total hysterectomy History of total left hip replacement Hx of colonoscopy S/P Botox injection S/P breast biopsy, right S/P left breast biopsy Family History Mother Breast cancer Father Heart disease Father Lung cancer Mother Colon cancer Brother Pancreatic cancer Social History Household Members: Spouse Housing: House Are you a primary dialysis patient care technician to a significant other at home: No Do you presently have visiting nurse or other home services: Yes Alcohol intake: never Patient Tobacco Use Status: Never used Tobacco Advance Directives Date on File: 04/11/22 service: No Current occupational status: retired Female Reproductive History Menstrual Age of Menarche: 15 Review of Systems Const Denies chills and Denies fever(s) Card Reports no additional complaints and Denies syncope Resp Denies cough GI Denies abdominal pain and Denies heartburn Reports as per HPI and Denies change in libido Neuro Denies syncope Psych Denies change in libido Endo Denies change in libido Physical Exam Const General: cooperative, healthy appearing, comfortable and no acute distress Orientation/consciousness: patient oriented x3 HEENT Face and sinus: Yes normal facial exam Mouth: moist mucous membranes Neck Neck: Yes normal visual inspection, Yes full ROM and Yes trachea midline Chest Chest palpation & inspection: normal inspection of the chest Resp Effort & Inspection: normal respiratory effort, able to speak in complete sentences and no respiratory distress GI Inspection: Yes normal to inspection Back/Spine/Pelvis Cervical Spine: normal cervical lordosis Thoracic/Lumbar Spine: thoracic and lumbar spine normal to inspection Skin General skin exam: no rashes or lesions noted Neuro General: patient oriented x3, gait normal, tone normal and moves all extremities Extrem General: Yes normal to inspection and Yes capillary refill normal Assessment & Plan Assessment & Plan (1) Neurogenic urinary bladder disorder: Code(s): N31.9 - Neuromuscular dysfunction of bladder, unspecified Plan Trial suppression Medications: New ascorbic acid (vitamin C) 1,000 mg PO DAILY 90 tabs 1RF 90 days methenamine hippurate 1 g PO BID 180 tabs 1RF 90 days Patient Instructions: Imaging studies, laboratory and physical exam results were discussed and reviewed in detail. No major barriers to patient understanding were identified. An opportunity to ask questions regarding the treatment plan was provided. All questions were answered. The patient expressed understanding and agreement with the above treatment plan. The patient is aware they should contact our office by phone for worsening of their current condition or the appearance of new urologic symptoms. Compliance is encouraged with any medications and followup testing that is ordered. It is a privilege to participate in the urologic care of your patient. If you have any questions or concerns regarding treatment for the above conditions, or other urologic issues, please do not hesitate to contact me. The office telephone contact is [phone]. This note is constructed using voice recognition software. While every effort has been made to ensure accuracy shirt maker errors may have been included. Yours sincerely, Dr Ceferino Hayes MD, [facility] - Urology Providers of Expert, Compassionate Care for the Genitourinary System Coding Level of Care Code Est Pt Level 4 (04384) Diagnoses Neurogenic urinary bladder disorder N31.9
== END 2022-12-06 09:27 | disposition home or self-care (01) ==
LOC: HO.HUSH 08:45
PROVIDERS: PCP Family Medicine; Visit Provider Urology
DX: N31.9 Neuromuscular dysfunction of bladder, unspecified (principal); N39.0 Urinary tract infection, site not specified; N39.498 Other specified urinary incontinence
CPT/HCPCS: 99214

== ENCOUNTER → 2022-12-06 08:45 | Outpatient (BNVA) | payer MEDICARE, OTHER, SELFPAY | PROVIDERS: PCP Family Medicine; Visit Provider Urology | DX: N31.9 Neuromuscular dysfunction of bladder, unspecified (principal); N39.0 Urinary tract infection, site not specified; N20.0 Calculus of kidney; N39.3 Stress incontinence (female) (male) | CPT/HCPCS: 99212 ==

== ENCOUNTER 2022-12-17 10:04 | Emergency (ER) | payer MEDICARE, OTHER, SELFPAY ==
--- NOTE | ~2022-12-17 | CT_ITS ---
EXAMINATION: CT ABDOMEN AND PELVIS WITH CONTRAST CLINICAL INFORMATION: Flank hematoma after fall. Rule out retroperitoneal hemorrhage. COMPARISON: Previous CT of the abdomen and pelvis most recent October 2022 TECHNIQUE: Multidetector volumetric images were obtained from the superior aspect of the liver through the pubic symphysis following administration 85 mL of Omnipaque 350 intravenous contrast. Sagittal and coronal reformatted images were obtained on the technologist's workstation. Oral contrast: Yes This CT examination was performed using dose optimization techniques as appropriate, variously including the following: *Automated exposure control *Adjustment of mA and/or kV according to patient size (this includes techniques or standardized protocols for targeted exams where dose is matched to indication/reason for exam; i.e. extremities or head) *Use of iterative reconstruction technique DLP: 766 mGy-cm FINDINGS: LUNG BASES: The visualized lung bases are unremarkable. LIVER, GALLBLADDER, AND BILIARY TREE: The liver is normal in size, shape, and attenuation. No focal hepatic lesion or biliary ductal dilatation is present. The gallbladder is unremarkable with no evidence of radiopaque gallstones, gallbladder wall thickening, or obvious pericholecystic inflammatory changes. PANCREAS: Unremarkable. SPLEEN: There are several low-attenuation lesions in the spleen, largest measuring 1.5 cm axial image 29 series 3. These are not seen on prior CT scans without IV contrast. ADRENAL GLANDS: 2 cm stable left adrenal lesion from multiple old exams and therefore probably benign. Normal right adrenal gland. KIDNEYS AND URETERS: No retroperitoneal or perinephric hematoma is seen. There is dilatation of both renal pelvises suggestive of bilateral extrarenal pelvises. No hydronephrosis to suggest a UPJ obstruction is seen. There are bilateral renal cysts largest measuring 1 cm in the left kidney. No imaging follow-up recommended. There is a stable 1 cm partially calcified lesion exophytic to the lower pole of the left kidney. BLADDER: Suprapubic tube in the bladder. The bladder is empty. GASTROINTESTINAL TRACT: Diverticulosis. No evidence of diverticulitis. Normal small bowel. Appendix not seen. Question wall thickening of the stomach versus a distention. No ascites. No free air. ABDOMINAL WALL: No significant hernia is appreciated. LYMPH NODES: Normal. VASCULAR: Severe atherosclerotic disease. PELVIC VISCERA: Uterus is not seen and has presumably been removed. No pelvic mass. OSSEOUS STRUCTURES: Scoliosis and severe degenerative changes of the spine. Severe degenerative changes at the hip joints, left greater than right. No fracture. CT/CT abdomen pelvis w IV con IMPRESSION: No retroperitoneal or perinephric hematoma. Probable bilateral extrarenal pelvises. Bilateral renal cysts and partially calcified lesion exophytic to the lower pole of the left kidney. No imaging follow-up. Suprapubic tube in the bladder. Stable left adrenal lesion from multiple exams. No imaging follow-up recommended.. Probable low-attenuation splenic lesions. These are not seen on previous noncontrast enhanced CT scans. Statistically these may represent multiple hemangiomas. Severe diverticulosis. Severe atherosclerotic disease. Question wall thickening of the proximal stomach versus changes due to underdistention. Fleischner guidelines were followed.
[2022-12-17 10:08] VITALS: BP 130/36; BP 192/98; PULSE 63; PULSE 73; RESP 18; TEMP 36.9; O2SAT 97; O2SAT 98; BMI 47.0
--- NOTE | 2022-12-17 10:13 | ED_ITS ---
HPI - Fall General Chief Complaint: Fall Stated Complaint: r hip pain Time Seen by Provider: 12/17/22 10:10 Source: patient Mode of arrival: ambulatory Limitations: no limitations History of Present Illness HPI Narrative: Patient fell on Saturday because she walks with a walker and the wheel got caught. Fell on her right side. Patient feels that she has a UTI and a headache. She is leaking a lot of urine. Patient is not on blood thinners. MD complaint: fall Onset (ago): day(s) Prolonged down time: no Context: tripped/slipped Severity: moderate Related Data Home Medications Medication Instructions Recorded Confirmed citalopram 20 mg tablet 20 mg PO DAILY 07/21/20 12/04/22 duloxetine 60 mg capsule,delayed 60 mg PO DAILY 07/21/20 12/04/22 release spironolactone 25 mg tablet 25 mg PO DAILY 07/21/20 12/04/22 amlodipine 10 mg tablet 10 mg PO DAILY 03/23/21 12/04/22 metformin 1,000 mg tablet 1,000 mg PO BID 04/19/21 12/04/22 carvedilol 25 mg tablet 25 mg PO BID 05/31/21 12/04/22 pregabalin 150 mg capsule 150 mg PO BID 07/27/21 12/04/22 sulindac 150 mg tablet 150 mg PO BID 07/27/21 12/04/22 furosemide 20 mg tablet 40 mg PO QAM PRN Edema 08/27/22 12/04/22 blood sugar diagnostic (Accu-Chek #10 ea 09/04/22 12/04/22 Guide test strips) ibrutinib 420 mg tablet (Imbruvica) 420 mg PO DAILY 10/30/22 12/04/22 lorazepam 0.5 mg tablet 1 tab PO Q8H PRN anxiety 10/30/22 12/04/22 nitrofurantoin macrocrystal 100 mg 100 mg PO BID 10/30/22 12/04/22 capsule sennosides 8.6 mg tablet (senna) 17.2 mg PO BEDTIME PRN Constipation 10/30/22 12/04/22 oxycodone 10 mg tablet 10 mg PO TID PRN Severe Pain 12/04/22 12/04/22 (Scale Score 7-10) Previous Rx's Medication Instructions Recorded aspirin 81 mg tablet,delayed 81 mg PO DAILY #90 tabs 07/10/21 release (Enteric Coated Aspirin) syringe with needle 3 mL 22 x 1 #20 ea 04/24/2209/10 (BD Luer-Humphrey Syringe) famotidine 40 mg tablet 40 mg PO BEDTIME #90 tabs 05/29/22 pantoprazole 40 mg tablet,delayed 40 mg PO DAILY #90 tabs 08/14/22 release ascorbic acid (vitamin C) 500 mg 500 mg PO BID #120 tabs 08/17/22 tablet (Vitamin C) ondansetron HCl 4 mg tablet 4 mg PO Q8H PRN Nausea 08/29/22 (Zofran) atorvastatin 80 mg tablet 80 mg PO QPM #90 tabs 09/28/22 ferrous sulfate 325 mg (65 mg 325 mg PO DAILY #120 tabs 11/13/22 iron) tablet (iron) tramadol 50 mg tablet 50 mg PO BID PRN pain 5 days #10 11/23/22 tabs ascorbic acid (vitamin C) 1,000 mg 1,000 mg PO DAILY 90 days #90 tabs 12/06/22 tablet methenamine hippurate 1 gram tablet 1 g PO BID 30 days #60 tabs 12/11/22 nitrofurantoin 100 mg PO Q12H 7 days #14 caps 12/17/22 monohydrate/macrocrystals 100 mg capsule (Macrobid) Allergies Allergy/AdvReac Type Severity Reaction Status Date / Time amoxicillin [AMOXICILLIN] Allergy Severe stroke, Verified 12/17/22 10:12 blood clots ciprofloxacin [From CIPRO] Allergy Severe ANAPHYLAXIS Verified 12/17/22 10:12 Iodinated Contrast Media Allergy Severe HIVES Verified 12/17/22 10:12 [IV DYE, IODINE CONTAINING CONTRAST ] levofloxacin Allergy Severe Anaphylaxis Verified 12/17/22 10:12 liraglutide Allergy Severe Headache Verified 12/17/22 10:12 Penicillins Allergy Severe stroke, Verified 12/17/22 10:12 blood clots phenazopyridine [Pyridium] Allergy Severe Anaphylaxis Verified 12/17/22 10:12 FREYA Inhibitors Allergy Intermediate Cough Verified 12/17/22 10:12 ARB-Angiotensin Receptor Allergy Intermediate Cough Verified 12/17/22 10:12 Antagonist atorvastatin Allergy Intermediate Shortness Verified 12/17/22 10:12 of Breath cefpodoxime Allergy Intermediate Dizziness, Verified 12/17/22 10:12 nausea celecoxib [From CELEBREX] Allergy Intermediate HIVES Verified 12/17/22 10:12 doxazosin Allergy Intermediate Shortness Verified 12/17/22 10:12 of Breath fluticasone [Advair Diskus] Allergy Intermediate Anxiety Verified 12/17/22 10:12 gabapentin [From Neurontin] Allergy Intermediate Headache Verified 12/17/22 10:12 hydralazine Allergy Intermediate Shortness Verified 12/17/22 10:12 of Breath latex Allergy Intermediate Hives Verified 12/17/22 10:12 linezolid Allergy Intermediate Nausea and Verified 12/17/22 10:12 Vomiting meloxicam Allergy Intermediate Unknown Verified 12/17/22 10:12 salmeterol [Advair Diskus] Allergy Intermediate Anxiety Verified 12/17/22 10:12 Tetanus Vaccines and Toxoid Allergy Intermediate Swelling Verified 12/17/22 10:12 torsemide Allergy Intermediate Shortness Verified 12/17/22 10:12 of Breath cephalexin [Keflex] Allergy Mild Nausea Verified 12/17/22 10:12 Review of Systems Review of Systems: Yes all other systems are reviewed and are negative Genitourinary: Comments: dysuria and urinary incontinence Musculoskeletal: Comments: right flank hematoma Neurologic: Denies Sensory deficit (Neuro) [facility] Past Medical History Medical History Allergy to multiple antibiotics Anemia Arthritis CLL (chronic lymphocytic leukemia) CLL (chronic lymphocytic leukemia) Depression Diabetes mellitus Fibromyalgia History of bilateral breast cancer History of blood transfusion History of CVA (cerebrovascular accident) History of numbness Hypercholesterolemia Hypertension Morbid obesity PONV (postoperative nausea and vomiting) Seasonal allergies Self-catheterizes urinary bladder Sleep apnea Type 2 diabetes mellitus with unspecified complications Urinary retention with incomplete bladder emptying Wears dentures Surgical History History of back surgery History of biopsy of bladder History of bladder repair surgery History of esophagogastroduodenoscopy (EGD) History of suprapubic catheter History of total hysterectomy Hx of colonoscopy S/P Botox injection S/P breast biopsy, right S/P left breast biopsy Family History Family History Mother Breast cancer Father Heart disease Father Lung cancer Mother Colon cancer Brother Pancreatic cancer Social History Social History Household Members: Significant Other Housing: House Are you a primary adult care provider to a significant other at home: No Do you presently have visiting nurse or other home services: No Alcohol intake: never Patient Tobacco Use Status: Never used Tobacco Smoked in Last 30 Days: No Use of substances other than those prescribed or required for medical reasons: No Advance Directives: Yes Advance Directives on File: Yes Advance Directives Date on File: 04/11/22 service: No Current occupational status: retired Physical Exam Vital Signs: Vital Signs: Last Vital Signs Temp 98.4 F 12/17/22 12:15 Pulse 63 12/17/22 12:15 Resp 15 12/17/22 12:15 BP 134/48 L 12/17/22 12:15 Pulse Ox 94 12/17/22 12:15 O2 Del Method Room Air 12/17/22 12:15 BMI result Body Mass Index 47.0 Const: Other: elderly obese Orientation/consciousness: oriented to person and patient oriented x3 Limitations: no limitations HEENT: Head: Yes normal to inspection Ears: external ears normal General nose exam: Normal external nose present Mouth: Normal oral and palatal mucosa present and oropharynx normal Throat: Yes posterior oropharynx normal Eyes: General: appearance normal, both eyes and all related structures Neck: Other: supple Neck: Yes normal visual inspection Chest: Chest palpation & inspection: normal inspection of the chest Resp: Auscultation: clear to auscultation bilaterally Cardio: Jugular venous distension: no JVD Rate: regular rate Rhythm: regular rhythm Heart sounds: S1 normal heart sound present and S2 normal heart sound present GI: Inspection: Yes normal to inspection Palpation (GI): Soft to palpation, nontender and No hepatosplenomegaly present Auscultation: normal bowel sounds Back/Spine/Pelvis: Other: right flank hematoma Skin: Other: right flank hematoma Neuro: General: oriented to person and patient oriented x3 Cranial nerves: Yes CN's II-XII intact bilaterally Motor exam (neuro): 5/5 motor strength present throughout Sensory Exam: No Sensory deficit (Neuro) Extrem: General: Yes normal to inspection Psych: Appearance: grossly normal Course Reevaluation(s) Reevaluation #1: Patient the last time had UTI Klebsiella and Ecoli both sensitive to Macrobid Time: 13:03 Reevaluation #2: no retroperitoneal hematoma on CT will dc home on Macrobid Time: 13:50 Medications Administered Discontinued Medications Generic Name Dose Route Start Last Admin Trade Name Christian PRN Reason Stop Dose Admin Diphenhydramine HCl 25 mg 12/17/22 11:20 12/17/22 11:34 Diphenhydramine Hcl 50 Mg/Ml Vial IVPUSH 12/17/22 11:21 25 mg ONCE ONE Administration Iohexol 85 ml 12/17/22 12:02 12/17/22 12:05 Iohexol 350 Mg/Ml 100 Ml Infus..Btl IV 12/17/22 12:03 85 ml ONCE ONE Administration Methylprednisolone Sodium Succinate 125 mg 12/17/22 11:20 12/17/22 11:33 Methylprednisolone Sod Succ 125 Mg/2 Ml Vial IVPUSH 12/17/22 11:21 125 mg ONCE ONE Administration Nitrofurantoin Macrocrystals 100 mg 12/17/22 12:58 12/17/22 13:44 Nitrofurantoin Monohyd/M-Cryst 100 Mg Capsule PO 12/17/22 12:59 100 mg ONCE ONE Administration Medical Decision Making Differential Diagnosis Differential Diagnoses: The differential diagnosis associated with the presentation includes (retroperitoneal bleed, flank hematoma, UTI) Admission/Observation Consideration of admission/observation: Escalation of care including admission/observation considered (In a patient with large flank hematoma and weakness secondary to possible UTI, admission was considered) Lab Data MDM Lab Attestation statement: I reviewed the patient's lab results. 12/17/22 10:35 12/17/22 10:35 Labs: Lab Results 12/17/22 12/17/22 12/17/22 Range/Units 10:35 10:35 10:43 WBC 10.4 (4.8-10.8) X10*3/uL RBC 3.51 L (4.20-5.50) X10*6/uL Hgb 9.8 L (12.0-16.0) g/dl Hct 30.7 L (37.0-47.0) % MCV 87.5 (80.0-98.0) fL MCH 27.9 (27.0-33.0) pg MCHC 31.9 (31.0-35.0) g/dl RDW 14.7 (11.0-16.0) % Plt Count 197 (160-400) X10*3/uL MPV 11.2 (9.4-12.3) fL Immature Gran % (Auto) 1.5 H (0.0-0.4) % Neut % (Auto) 69.1 (45-73) % Lymph % (Auto) 20.8 (20-40) % [place] % (Auto) 7.7 (2-11) % Eos % (Auto) 0.5 (0-4) % Baso % (Auto) 0.4 (0-2) % Lymph # (Auto) 2.2 (1.2-4.9) X10*3/uL [place] # (Auto) 0.8 (0.1-1.2) X10*3/uL Eos # (Auto) 0.1 (0.0-0.4) X10*3/uL Baso # (Auto) 0.0 (0.0-0.2) X10*3/uL Abs Immat Gran (auto) 0.16 H (0.00-0.03) X10*3/uL Absolute Neuts (auto) 7.2 (2.0-8.3) x10*3/uL Absolute Nucleated RBC 0.000 (0.0-0.012) X10*3/uL Nucleated RBC % (auto) 0.0 (0.0-0.2) /100WBC Sodium 136 (135-145) mmol/L Potassium 4.3 (3.3-5.1) mmol/L Chloride 98 (96-108) mmol/L Carbon Dioxide 27 (22-29) mmol/L Anion Gap 15 (12-20) BUN 18 H (9-16) mg/dL Creatinine 1.09 (0.5-1.4) mg/dL Estim Creat Clear Calc 37.7 Estimated GFR 49 Random Glucose 248 H (60-115) mg/dL Calcium 9.0 (8.4-10.2) mg/dL Urine Color Yellow Urine Appearance Cloudy Urine pH 7.5 (5.0-9.0) Ur Specific [place] 1.010 (1.005-1.025) Urine Protein Trace (Neg-Trace) mg/dL Urine Glucose (UA) 100 H (Negative) mg/dL Urine Ketones Negative (Negative) mg/dL Urine Blood Trace H (Negative) Urine Nitrite Negative (Negative) Ur Leukocyte Esterase Large (3+) H (Negative) Urine RBC 0-2 (0-2) /HPF Urine WBC >50 H (0-5) /HPF Ur Squamous Epith Cells 0-2 (0-2) /HPF Urine Bacteria 4+ (None Seen) Hyaline Casts 0-2 (0-2) /LPF Independent Interpretation I performed an independent interpretation of an: CT Scan (no blood seen in retroperitoneum) Radiology Impression Discussion of test interpretation with radiology: I have reviewed the radiologist's reading. (making sure I did not miss any bleeding) Independent Historian Clinical information obtained from an independent historian. History obtained from or confirmed by: Spouse External Record Review External record reviewed: Outpatient record (urine cultures) Discharge Plan Discharge Clinical Impression: Complicated urinary tract infection, Hematoma of right flank Patient Disposition: Home, Self-Care Instructions: Urinary Tract Infection in Women (ED), Contusion in Adults (ED) Prescriptions: New nitrofurantoin monohyd/m-cryst [Macrobid] 100 mg capsule 100 mg PO Q12H 7 Days Qty: 14 0RF Rx Instructions: must administer with a meal/food No Action (DME) syringe with needle [BD Luer-Humphrey Syringe] 3 mL 22 x 1 1/2 syringe See Rx Instructions .ROUTE .MEDSUPPLY Qty: 20 0RF Rx Instructions: As directed famotidine 40 mg tablet 40 mg PO BEDTIME Qty: 90 1RF ondansetron HCl [Zofran] 4 mg tablet 4 mg PO Q8H PRN (Reason: Nausea) 4RF atorvastatin 80 mg tablet 80 mg PO QPM Qty: 90 3RF methenamine hippurate 1 gram tablet 1 g PO BID 30 Days Qty: 60 1RF ascorbic acid (vitamin C) [Vitamin C] 500 mg Tablet 500 mg PO BID Qty: 120 4RF ferrous sulfate [iron] 325 mg (65 mg iron) Tablet 325 mg PO DAILY Qty: 120 9RF oxycodone 10 mg Tablet 10 mg PO TID PRN (Reason: Severe Pain (Scale Score 7-10)) furosemide 20 mg tablet 40 mg PO QAM PRN (Reason: Edema) lorazepam 0.5 mg tablet 1 tab PO Q8H PRN (Reason: anxiety) sennosides [senna] 8.6 mg tablet 17.2 mg PO BEDTIME PRN (Reason: Constipation) nitrofurantoin macrocrystal 100 mg capsule 100 mg PO BID Rx Instructions: must administer with a meal/food. take until directed to stop by Imfletcheruvica 420 mg Tablet 420 mg PO DAILY spironolactone 25 mg tablet 25 mg PO DAILY duloxetine 60 mg capsule,delayed release(DR/EC) 60 mg PO DAILY citalopram 20 mg tablet 20 mg PO DAILY metformin 1,000 mg tablet 1,000 mg PO BID carvedilol 25 mg tablet 25 mg PO BID amlodipine 10 mg tablet 10 mg PO DAILY aspirin [Enteric Coated Aspirin] 81 mg tablet,delayed release (DR/EC) 81 mg PO DAILY Qty: 90 4RF pantoprazole 40 mg tablet,delayed release (DR/EC) 40 mg PO DAILY Qty: 90 4RF tramadol 50 mg tablet 50 mg PO BID PRN (Reason: pain) 5 Days Qty: 10 0RF pregabalin 150 mg capsule 150 mg PO BID sulindac 150 mg tablet 150 mg PO BID (DME) Accu-Chek Guide test strips Strip See Rx Instructions .ROUTE DAILY Qty: 10 Rx Instructions: As directed ascorbic acid (vitamin C) 1,000 mg tablet 1,000 mg PO DAILY 90 Days Qty: 90 1RF
[2022-12-17 10:40] LABS: MANUAL DIFF FLAG NO
[2022-12-17 10:42] LABS: Basophils Percent Auto 0.4 % (0-2); Eosinophils Absolute Auto 0.1 X10*3/uL (0.0-0.4); Eosinophils Percent Auto 0.5 % (0-4); Hematocrit 30.7 % (37.0-47.0); Hemoglobin 9.8 g/dl (12.0-16.0); Imm Gran Abs Auto 0.16 X10*3/uL (0.00-0.03); Imm Gran Pct Auto 1.5 % (0.0-0.4); Lymphocytes Absolute Auto 2.2 X10*3/uL (1.2-4.9); Lymphocytes Percent Auto 20.8 % (20-40); Mean Corpuscular HGB Conc 31.9 g/dl (31.0-35.0); Mean Corpuscular Hemoglobin 27.9 pg (27.0-33.0); Mean Corpuscular Volume 87.5 fL (80.0-98.0); Mean Platelet Volume 11.2 fL (9.4-12.3); Monocytes Absolute Auto 0.8 X10*3/uL (0.1-1.2); Monocytes Percent Auto 7.7 % (2-11); Neutrophils Absolute Auto 7.2 x10*3/uL (2.0-8.3); Neutrophils Percent Auto 69.1 % (45-73); Platelet Count 197 X10*3/uL (160-400); Red Blood Count 3.51 X10*6/uL (4.20-5.50); Red Cell Distribution Width 14.7 % (11.0-16.0); White Blood Count 10.4 X10*3/uL (4.8-10.8)
[2022-12-17 10:51] LABS: Appearance Urine Cloudy; Color Urine Yellow; Glucose Urine UA 100 mg/dL (Negative); Leukocyte Esterase Urine Large (3+) (Negative); Nitrite Urine Negative (Negative); PH 7.5 (5.0-9.0); UMIC TRIGGER UACC YES; Urine Blood Trace (Negative); Urine Ketones Negative (Negative); Urine Protein Trace mg/dL (Neg-Trace)
[2022-12-17 10:56] LABS: Bacteria Urine 4+ (None Seen); Hyaline Casts Urine 0-2 /LPF (0-2); RBC Urine 0-2 /HPF (0-2); Squamous Epithelial Cell Urine 0-2 /HPF (0-2); UACC Culture Trigger YES; WBC Urine >50 /HPF (0-5)
[2022-12-17 10:58] LABS: Anion Gap 15 (12-20); Blood Urea Nitrogen 18 mg/dL (9-16); Carbon Dioxide 27 mmol/L (22-29); Chloride 98 mmol/L (96-108); Creatinine Clr Calc Pharmacy 37.7; Estimated Glomerular Filt Rate 49; Glucose Random 248 mg/dL (60-115); Potassium 4.3 mmol/L (3.3-5.1); Sodium 136 mmol/L (135-145)
[2022-12-17] MEDS: methylPREDNISolone Sod Succ 125 MG/2 ML VIAL IVPUSH (11:33)
[2022-12-17] MEDS: diphenhydrAMINE HCL 50 MG/ML VIAL 25 MG IVPUSH (11:34)
[2022-12-17] MEDS: iohexoL 350 MG/ML 100 ML INFUS..BTL 85 ML IV (12:05)
[2022-12-17 12:15] VITALS: BP 134/48; PULSE 63; RESP 15; TEMP 36.9; O2SAT 94
[2022-12-17] MEDS: Nitrofurantoin Monohyd/M-Cryst 100 MG CAPSULE PO (13:44)
== END 2022-12-17 14:03 | disposition home or self-care (01) ==
PROVIDERS: Emergency Provider Emergency Medicine; PCP Family Medicine
DX: M25.551 Pain in right hip (principal); R35.0 Frequency of micturition; R10.2 Pelvic and perineal pain; R51.9 Headache, unspecified; Z79.899 Other long term (current) drug therapy
CPT/HCPCS: 36415; 74177; 80048; 81001; 85025; 87086; 87088; 87186; 99284; J1200; J2930; Q9967

== ENCOUNTER 2022-12-20 02:42 | Emergency (ER) | payer MEDICARE, OTHER, SELFPAY ==
[2022-12-20 02:52] VITALS: BP 159/70; PULSE 70; O2SAT 96; BMI 38.0
[2022-12-20 02:57] VITALS: BP 157/61; PULSE 66; RESP 12; TEMP 37; O2SAT 95
--- NOTE | 2022-12-20 03:00 | ED_ITS ---
HPI - Female Genitourinary General Chief complaint: Urogenital-Female Stated complaint: uti Time Seen by Provider: 12/20/22 02:59 Source: patient Mode of arrival: ambulatory Limitations: no limitations History of Present Illness HPI Narrative: Patient history of neurogenic bladder with recurrent UTI almost every month gram-negative rods care if year any coli sensitive to Macrobid which patient been taking for last 10 days without much response patient feel that she has to go to bathroom very often no fever no chills feels weak and tired also complaining of low back pain for last 2 weeks does have a history of chronic back pain. No fever but patient does have chills. Does have a urinary retention with incomplete bladder emptying has a history of suprapubic Henao catheter placed in 10/31 with history of diabetes and CLL on chronic immunosuppressive treatment patient also taking vitamin-C and methenamine heme hippurate 1 g twice daily and been followed by urologist Related Data Home Medications Medication Instructions Recorded Confirmed citalopram 20 mg tablet 20 mg PO DAILY 07/21/20 12/04/22 duloxetine 60 mg capsule,delayed 60 mg PO DAILY 07/21/20 12/04/22 release spironolactone 25 mg tablet 25 mg PO DAILY 07/21/20 12/04/22 amlodipine 10 mg tablet 10 mg PO DAILY 03/23/21 12/04/22 metformin 1,000 mg tablet 1,000 mg PO BID 04/19/21 12/04/22 carvedilol 25 mg tablet 25 mg PO BID 05/31/21 12/04/22 pregabalin 150 mg capsule 150 mg PO BID 07/27/21 12/04/22 sulindac 150 mg tablet 150 mg PO BID 07/27/21 12/04/22 furosemide 20 mg tablet 40 mg PO QAM PRN Edema 08/27/22 12/04/22 blood sugar diagnostic (Accu-Chek #10 ea 09/04/22 12/04/22 Guide test strips) ibrutinib 420 mg tablet (Imbruvica) 420 mg PO DAILY 10/30/22 12/04/22 lorazepam 0.5 mg tablet 1 tab PO Q8H PRN anxiety 10/30/22 12/04/22 nitrofurantoin macrocrystal 100 mg 100 mg PO BID 10/30/22 12/04/22 capsule sennosides 8.6 mg tablet (senna) 17.2 mg PO BEDTIME PRN Constipation 10/30/22 12/04/22 oxycodone 10 mg tablet 10 mg PO TID PRN Severe Pain 12/04/22 12/04/22 (Scale Score 7-10) Previous Rx's Medication Instructions Recorded aspirin 81 mg tablet,delayed 81 mg PO DAILY #90 tabs 07/10/21 release (Enteric Coated Aspirin) syringe with needle 3 mL 22 x 1 #20 ea 04/24/22 12 (BD Luer-Humphrey Syringe) famotidine 40 mg tablet 40 mg PO BEDTIME #90 tabs 05/29/22 pantoprazole 40 mg tablet,delayed 40 mg PO DAILY #90 tabs 08/14/22 release ascorbic acid (vitamin C) 500 mg 500 mg PO BID #120 tabs 08/17/22 tablet (Vitamin C) ondansetron HCl 4 mg tablet 4 mg PO Q8H PRN Nausea 08/29/22 (Zofran) atorvastatin 80 mg tablet 80 mg PO QPM #90 tabs 09/28/22 ferrous sulfate 325 mg (65 mg 325 mg PO DAILY #120 tabs 11/13/22 iron) tablet (iron) tramadol 50 mg tablet 50 mg PO BID PRN pain 5 days #10 11/23/22 tabs ascorbic acid (vitamin C) 1,000 mg 1,000 mg PO DAILY 90 days #90 tabs 12/06/22 tablet methenamine hippurate 1 gram tablet 1 g PO BID 30 days #60 tabs 12/11/22 nitrofurantoin 100 mg PO Q12H 7 days #14 caps 12/17/22 monohydrate/macrocrystals 100 mg capsule (Macrobid) estradiol 10 mcg vaginal tablet 10 mcg vaginal 2XW 90 days #26 tabs 12/18/22 (Vagifem) cefdinir 300 mg capsule 300 mg PO BID #14 caps 12/20/22 Allergies Allergy/AdvReac Type Severity Reaction Status Date / Time amoxicillin [AMOXICILLIN] Allergy Severe stroke, Verified 12/17/22 10:12 blood clots ciprofloxacin [From CIPRO] Allergy Severe ANAPHYLAXIS Verified 12/17/22 10:12 Iodinated Contrast Media Allergy Severe HIVES Verified 12/17/22 10:12 [IV DYE, IODINE CONTAINING CONTRAST ] levofloxacin Allergy Severe Anaphylaxis Verified 12/17/22 10:12 liraglutide Allergy Severe Headache Verified 12/17/22 10:12 Penicillins Allergy Severe stroke, Verified 12/17/22 10:12 blood clots phenazopyridine [Pyridium] Allergy Severe Anaphylaxis Verified 12/17/22 10:12 FREYA Inhibitors Allergy Intermediate Cough Verified 12/17/22 10:12 ARB-Angiotensin Receptor Allergy Intermediate Cough Verified 12/17/22 10:12 Antagonist atorvastatin Allergy Intermediate Shortness Verified 12/17/22 10:12 of Breath cefpodoxime Allergy Intermediate Dizziness, Verified 12/17/22 10:12 nausea celecoxib [From CELEBREX] Allergy Intermediate HIVES Verified 12/17/22 10:12 doxazosin Allergy Intermediate Shortness Verified 12/17/22 10:12 of Breath fluticasone [Advair Diskus] Allergy Intermediate Anxiety Verified 12/17/22 10:12 gabapentin [From Neurontin] Allergy Intermediate Headache Verified 12/17/22 10:12 hydralazine Allergy Intermediate Shortness Verified 12/17/22 10:12 of Breath latex Allergy Intermediate Hives Verified 12/17/22 10:12 linezolid Allergy Intermediate Nausea and Verified 12/17/22 10:12 Vomiting meloxicam Allergy Intermediate Unknown Verified 12/17/22 10:12 salmeterol [Advair Diskus] Allergy Intermediate Anxiety Verified 12/17/22 10:12 Tetanus Vaccines and Toxoid Allergy Intermediate Swelling Verified 12/17/22 10:12 torsemide Allergy Intermediate Shortness Verified 12/17/22 10:12 of Breath cephalexin [Keflex] Allergy Mild Nausea Verified 12/17/22 10:12 Review of Systems Review of Systems: Yes all other systems are reviewed and are negative PMFSH Past Medical History Medical History Allergy to multiple antibiotics Anemia Arthritis CLL (chronic lymphocytic leukemia) CLL (chronic lymphocytic leukemia) Depression Diabetes mellitus Fibromyalgia History of bilateral breast cancer History of blood transfusion History of CVA (cerebrovascular accident) History of numbness Hypercholesterolemia Hypertension Morbid obesity PONV (postoperative nausea and vomiting) Seasonal allergies Self-catheterizes urinary bladder Sleep apnea Type 2 diabetes mellitus with unspecified complications Urinary retention with incomplete bladder emptying Wears dentures Surgical History History of back surgery History of biopsy of bladder History of bladder repair surgery History of esophagogastroduodenoscopy (EGD) History of suprapubic catheter History of total hysterectomy Hx of colonoscopy S/P Botox injection S/P breast biopsy, right S/P left breast biopsy Family History Family History Mother Breast cancer Father Heart disease Father Lung cancer Mother Colon cancer Brother Pancreatic cancer Social History Social History Household Members: Significant Other Housing: House Are you a primary school childcare attendant to a significant other at home: No Do you presently have visiting nurse or other home services: No Alcohol intake: never Patient Tobacco Use Status: Never used Tobacco Smoked in Last 30 Days: No Use of substances other than those prescribed or required for medical reasons: No Advance Directives: Yes Advance Directives on File: Yes Advance Directives Date on File: 04/11/22 Patient : No service: No Current occupational status: retired Physical Exam Vital Signs: Vital Signs: Last Vital Signs Temp 98.6 F 12/20/22 02:57 Pulse 66 12/20/22 02:57 Resp 12 12/20/22 02:57 BP 157/61 H 12/20/22 02:57 Pulse Ox 95 12/20/22 02:57 O2 Del Method Room Air 12/20/22 02:57 BMI result Body Mass Index 38.0 Appearance: Alert. Oriented X3. No acute distress. Eyes: PERRLA, No Nystagmus ENT: Pharynx normal. Oral Mucosa moist Neck: Normal inspection. Neck supple. CVS: Normal heart rate and rhythm. Pulses normal. Respiratory: No respiratory distress. Equal air entry bilateral, no wheezing/rales/rhonchi Abdomen: Soft and nontender. Bowel sounds are present, no mass palpable, no CVA tenderness Skin: Skin warm and dry. Normal skin color. Normal skin turgor. Extremities: No lower extremity edema. No calf tenderness back: Diffuse low back tenderness no flank tenderness Neuro: Oriented X 3. No motor deficit. No sensory deficit. Medications Administered Discontinued Medications Generic Name Dose Route Start Last Admin Trade Name Freq PRN Reason Stop Dose Admin Ceftriaxone Sodium 1 gm/ 50 mls @ 100 mls/hr 12/20/22 03:23 12/20/22 04:16 Sodium Chloride IV 12/20/22 03:52 Infused ONCE ONE Infusion Morphine Sulfate 2 mg 12/20/22 03:40 12/20/22 03:45 Morphine Sulfate 2 Mg/Ml Cartridge IVPUSH 12/20/22 03:41 2 mg ONCE ONE Administration Protocol Medical Decision Making Medical Decision Making [facility] Narrative: Patient with recurrent UTI on multiple antibiotic comes with similar discomfort suprapubic area with suprapubic catheter placed . No signs of sepsis will add Ceftin to the regimen advised to report to the ER/PCP high fever vomiting flank pain Lab Data [facility] Lab Attestation statement: I reviewed the patient's lab results. 12/20/22 03:01 12/20/22 03:01 Labs: Lab Results 12/20/22 12/20/22 12/20/22 Range/Units 03:01 03:01 03:07 WBC 10.4 (4.8-10.8) X10*3/uL RBC 3.56 L (4.20-5.50) X10*6/uL Hgb 9.9 L (12.0-16.0) g/dl Hct 30.4 L (37.0-47.0) % MCV 85.4 (80.0-98.0) fL MCH 27.8 (27.0-33.0) pg MCHC 32.6 (31.0-35.0) g/dl RDW 14.5 (11.0-16.0) % Plt Count 168 (160-400) X10*3/uL MPV 10.9 (9.4-12.3) fL Immature Gran % (Auto) 1.8 H (0.0-0.4) % Neut % (Auto) 65.3 (45-73) % Lymph % (Auto) 22.2 (20-40) % [place] % (Auto) 10.0 (2-11) % Eos % (Auto) 0.3 (0-4) % Baso % (Auto) 0.4 (0-2) % Lymph # (Auto) 2.3 (1.2-4.9) X10*3/uL [place] # (Auto) 1.0 (0.1-1.2) X10*3/uL Eos # (Auto) 0.0 (0.0-0.4) X10*3/uL Baso # (Auto) 0.0 (0.0-0.2) X10*3/uL Abs Immat Gran (auto) 0.19 H (0.00-0.03) X10*3/uL Absolute Neuts (auto) 6.8 (2.0-8.3) x10*3/uL Absolute Nucleated RBC 0.000 (0.0-0.012) X10*3/uL Nucleated RBC % (auto) 0.0 (0.0-0.2) /100WBC Sodium 135 (135-145) mmol/L Potassium 4.6 (3.3-5.1) mmol/L Chloride 98 (96-108) mmol/L Carbon Dioxide 27 (22-29) mmol/L Anion Gap 15 (12-20) BUN 20 H (9-16) mg/dL Creatinine 0.95 (0.5-1.4) mg/dL Estim Creat Clear Calc 66.6 Estimated GFR 57 Random Glucose 235 H (60-115) mg/dL Calcium 8.8 (8.4-10.2) mg/dL Urine Color Yellow Urine Appearance Clear Urine pH 8.5 (5.0-9.0) Ur Specific [place] <= 1.005 (1.005-1.025) Urine Protein Negative (Neg-Trace) mg/dL Urine Glucose (UA) Negative (Negative) mg/dL Urine Ketones Negative (Negative) mg/dL Urine Blood Trace H (Negative) Urine Nitrite Negative (Negative) Ur Leukocyte Esterase Moderate (2+) H (Negative) Urine RBC 3-5 H (0-2) /HPF Urine WBC 21-50 H (0-5) /HPF Ur Squamous Epith Cells 0-2 (0-2) /HPF Urine Bacteria Trace (None Seen) Hyaline Casts 0-2 (0-2) /LPF Discharge Plan Discharge Clinical Impression: Complicated urinary tract infection Patient Disposition: Home, Self-Care Instructions: Urinary Tract Infection in Women (ED) Additional Instructions: Drink plenty of fluids Take antibiotics as prescribed continue medication prescribed by your urologist Follow-up with PCP/urologist Prescriptions: New cefdinir 300 mg capsule 300 mg PO BID Qty: 14 0RF No Action (DME) syringe with needle [BD Luer-Humphrey Syringe] 3 mL 22 x 1 1/2 syringe See Rx Instructions .ROUTE .MEDSUPPLY Qty: 20 0RF Rx Instructions: As directed famotidine 40 mg tablet 40 mg PO BEDTIME Qty: 90 1RF ondansetron HCl [Zofran] 4 mg tablet 4 mg PO Q8H PRN (Reason: Nausea) 4RF atorvastatin 80 mg tablet 80 mg PO QPM Qty: 90 3RF methenamine hippurate 1 gram tablet 1 g PO BID 30 Days Qty: 60 1RF estradiol [Vagifem] 10 mcg tablet 10 mcg vaginal 2XW 90 Days Qty: 26 1RF ascorbic acid (vitamin C) [Vitamin C] 500 mg Tablet 500 mg PO BID Qty: 120 4RF ferrous sulfate [iron] 325 mg (65 mg iron) Tablet 325 mg PO DAILY Qty: 120 9RF oxycodone 10 mg Tablet 10 mg PO TID PRN (Reason: Severe Pain (Scale Score 7-10)) furosemide 20 mg tablet 40 mg PO QAM PRN (Reason: Edema) lorazepam 0.5 mg tablet 1 tab PO Q8H PRN (Reason: anxiety) sennosides [senna] 8.6 mg tablet 17.2 mg PO BEDTIME PRN (Reason: Constipation) nitrofurantoin macrocrystal 100 mg capsule 100 mg PO BID Rx Instructions: must administer with a meal/food. take until directed to stop by Imfletcheruvraul 420 mg Tablet 420 mg PO DAILY nitrofurantoin monohyd/m-cryst [Macrobid] 100 mg capsule 100 mg PO Q12H 7 Days Qty: 14 0RF Rx Instructions: must administer with a meal/food spironolactone 25 mg tablet 25 mg PO DAILY duloxetine 60 mg capsule,delayed release(DR/EC) 60 mg PO DAILY citalopram 20 mg tablet 20 mg PO DAILY metformin 1,000 mg tablet 1,000 mg PO BID carvedilol 25 mg tablet 25 mg PO BID amlodipine 10 mg tablet 10 mg PO DAILY aspirin [Enteric Coated Aspirin] 81 mg tablet,delayed release (DR/EC) 81 mg PO DAILY Qty: 90 4RF pantoprazole 40 mg tablet,delayed release (DR/EC) 40 mg PO DAILY Qty: 90 4RF tramadol 50 mg tablet 50 mg PO BID PRN (Reason: pain) 5 Days Qty: 10 0RF pregabalin 150 mg capsule 150 mg PO BID sulindac 150 mg tablet 150 mg PO BID (DME) Accu-Chek Guide test strips Strip See Rx Instructions .ROUTE DAILY Qty: 10 Rx Instructions: As directed ascorbic acid (vitamin C) 1,000 mg tablet 1,000 mg PO DAILY 90 Days Qty: 90 1RF Interventions: ED Discharge Assessment Last Done: 12/20/22 04:56 Discharge Date/Time: 12/20/22 04:56
[2022-12-20 03:05] LABS: Basophils Percent Auto 0.4 % (0-2); Eosinophils Percent Auto 0.3 % (0-4); Hematocrit 30.4 % (37.0-47.0); Hemoglobin 9.9 g/dl (12.0-16.0); Imm Gran Abs Auto 0.19 X10*3/uL (0.00-0.03); Imm Gran Pct Auto 1.8 % (0.0-0.4); Lymphocytes Absolute Auto 2.3 X10*3/uL (1.2-4.9); Lymphocytes Percent Auto 22.2 % (20-40); MANUAL DIFF FLAG NO; Mean Corpuscular HGB Conc 32.6 g/dl (31.0-35.0); Mean Corpuscular Hemoglobin 27.8 pg (27.0-33.0); Mean Corpuscular Volume 85.4 fL (80.0-98.0); Mean Platelet Volume 10.9 fL (9.4-12.3); Neutrophils Absolute Auto 6.8 x10*3/uL (2.0-8.3); Neutrophils Percent Auto 65.3 % (45-73); Platelet Count 168 X10*3/uL (160-400); Red Blood Count 3.56 X10*6/uL (4.20-5.50); Red Cell Distribution Width 14.5 % (11.0-16.0); White Blood Count 10.4 X10*3/uL (4.8-10.8)
[2022-12-20 03:13] LABS: Appearance Urine Clear; Color Urine Yellow; Glucose Urine UA Negative (Negative); Leukocyte Esterase Urine Moderate (2+) (Negative); Nitrite Urine Negative (Negative); PH 8.5 (5.0-9.0); Specific Gravity - Urine <= 1.005 (1.005-1.025); UMIC TRIGGER UACC YES; Urine Blood Trace (Negative); Urine Ketones Negative (Negative); Urine Protein Negative (Neg-Trace)
[2022-12-20 03:15] LABS: Bacteria Urine Trace (None Seen); Hyaline Casts Urine 0-2 /LPF (0-2); Squamous Epithelial Cell Urine 0-2 /HPF (0-2); UACC Culture Trigger YES; WBC Urine 21-50 /HPF (0-5)
[2022-12-20 03:31] LABS: Anion Gap 15 (12-20); Blood Urea Nitrogen 20 mg/dL (9-16); Calcium 8.8 mg/dL (8.4-10.2); Carbon Dioxide 27 mmol/L (22-29); Chloride 98 mmol/L (96-108); Creatinine Clr Calc Pharmacy 66.6; Estimated Glomerular Filt Rate 57; Glucose Random 235 mg/dL (60-115); Potassium 4.6 mmol/L (3.3-5.1); Sodium 135 mmol/L (135-145)
[2022-12-20] MEDS: cefTRIAXone sodium 1 GM in 0.9 % Sodium Chloride 50 ML IV (03:39)
[2022-12-20] MEDS: Morphine Sulfate 2 MG/ML CARTRIDGE IVPUSH (03:45)
== END 2022-12-20 04:56 | disposition home or self-care (01) ==
PROVIDERS: Emergency Provider Internal Medicine; PCP Family Medicine
DX: N39.0 Urinary tract infection, site not specified (principal); Z79.899 Other long term (current) drug therapy
CPT/HCPCS: 36415; 80048; 81001; 85025; 87086; 87088; 87186; 99284; J0696; J2270

== ENCOUNTER 2022-12-20 20:36 | Inpatient (IN) | payer MEDICARE, OTHER, SELFPAY ==
--- NOTE | ~2022-12-20 | XR_ITS ---
EXAMINATION: XR ABDOMEN KUB CLINICAL INDICATION: Abdominal discomfort COMPARISON: CT dated 12/17/2022 TECHNIQUE: AP view of the abdomen. FINDINGS: The bowel gas pattern is normal with no evidence of ileus or obstruction. Moderate stool throughout colon. Colon No unusual soft tissue calcifications are noted. The bones are unremarkable. XR/XR KUB IMPRESSION: * Moderate constipation. * No evidence of obstruction.
[2022-12-20 20:44] VITALS: BP 160/90; BP 168/66; PULSE 69; PULSE 76; RESP 20; TEMP 37.2; O2SAT 92; BMI 35.9
[2022-12-20 21:11] LABS: MANUAL DIFF FLAG NO
[2022-12-20 21:13] LABS: Basophils Percent Auto 0.3 % (0-2); Eosinophils Percent Auto 0.2 % (0-4); Hematocrit 31.2 % (37.0-47.0); Hemoglobin 10.1 g/dl (12.0-16.0); Imm Gran Abs Auto 0.16 X10*3/uL (0.00-0.03); Imm Gran Pct Auto 1.6 % (0.0-0.4); Lymphocytes Percent Auto 20.8 % (20-40); Mean Corpuscular HGB Conc 32.4 g/dl (31.0-35.0); Mean Corpuscular Hemoglobin 27.1 pg (27.0-33.0); Mean Corpuscular Volume 83.6 fL (80.0-98.0); Mean Platelet Volume 10.9 fL (9.4-12.3); Monocytes Absolute Auto 0.9 X10*3/uL (0.1-1.2); Monocytes Percent Auto 9.1 % (2-11); Neutrophils Absolute Auto 6.6 x10*3/uL (2.0-8.3); Platelet Count 175 X10*3/uL (160-400); Red Blood Count 3.73 X10*6/uL (4.20-5.50); Red Cell Distribution Width 14.4 % (11.0-16.0); White Blood Count 9.7 X10*3/uL (4.8-10.8)
--- NOTE | 2022-12-20 21:23 | ED_ITS ---
HPI - General Adult General Chief complaint: Altered Mental Status Stated complaint: General Malaise Time Seen by Provider: 12/20/22 21:18 Source: patient Mode of arrival: ambulatory Limitations: no limitations History of Present Illness HPI narrative: Patient's history of neurogenic bladder with suprapubic catheter with recurrent UTI almost every month with history of bacteremia and urine culture showing Gram-negative rods ESBL negative patient was seen here on 12/17 and started on Macrobid patient was seen here yesterday for being feeling weak, delirious, with poor appetite nausea or abdominal cramps was given 1 g Rocephin and discharged on cefdinir patient unable to get the antibiotic comes back as she is feeling delirious confused similar to that when she had bacteremia in the past. Patient's blood culture on 12/17 was negative urine culture showed Klebsiella which is ESBL negative but resistant to Macrobid patient denies any fever but has chills patient does have a urinary retention with incomplete bladder emptying has a history of suprapubic Henao catheter placed in 10/31 with history of diabetes and CLL on chronic immunosuppressive treatment patient also taking vitamin-C and methenamine heme hippurate 1 g twice daily and been followed by urologist Related Data Home Medications Medication Instructions Recorded Confirmed citalopram 20 mg tablet 20 mg PO DAILY 07/21/20 12/20/22 duloxetine 60 mg capsule,delayed 60 mg PO DAILY 07/21/20 12/20/22 release spironolactone 25 mg tablet 25 mg PO DAILY 07/21/20 12/20/22 amlodipine 10 mg tablet 10 mg PO DAILY 03/23/21 12/20/22 metformin 1,000 mg tablet 1,000 mg PO BID 04/19/21 12/20/22 carvedilol 25 mg tablet 25 mg PO BID 05/31/21 12/20/22 pregabalin 150 mg capsule 150 mg PO BID 07/27/21 12/20/22 sulindac 150 mg tablet 150 mg PO BID 07/27/21 12/20/22 furosemide 20 mg tablet 40 mg PO QAM PRN Edema 08/27/22 12/20/22 blood sugar diagnostic (Accu-Chek #10 ea 09/04/22 12/04/22 Guide test strips) ibrutinib 420 mg tablet (Imbruvica) 420 mg PO DAILY 10/30/22 12/20/22 lorazepam 0.5 mg tablet 1 tab PO Q8H PRN anxiety 10/30/22 12/20/22 sennosides 8.6 mg tablet (senna) 17.2 mg PO BEDTIME PRN Constipation 10/30/22 12/20/22 oxycodone 5 mg tablet 5 mg PO BID PRN pain 12/20/22 12/20/22 Previous Rx's Medication Instructions Recorded aspirin 81 mg tablet,delayed 81 mg PO DAILY #90 tabs 07/10/21 release (Enteric Coated Aspirin) syringe with needle 3 mL 22 x 1 #20 ea 04/24/2209/10 (BD Luer-Humphrey Syringe) famotidine 40 mg tablet 40 mg PO BEDTIME #90 tabs 05/29/22 pantoprazole 40 mg tablet,delayed 40 mg PO DAILY #90 tabs 08/14/22 release atorvastatin 80 mg tablet 80 mg PO QPM #90 tabs 09/28/22 ferrous sulfate 325 mg (65 mg 325 mg PO DAILY #120 tabs 11/13/22 iron) tablet (iron) ascorbic acid (vitamin C) 1,000 mg 1,000 mg PO DAILY 90 days #90 tabs 12/06/22 tablet nitrofurantoin 100 mg PO Q12H 7 days #14 caps 12/17/22 monohydrate/macrocrystals 100 mg capsule (Macrobid) estradiol 10 mcg vaginal tablet 10 mcg vaginal 2XW 90 days #26 tabs 12/18/22 (Vagifem) cefdinir 300 mg capsule 300 mg PO BID #14 caps 12/20/22 Allergies Allergy/AdvReac Type Severity Reaction Status Date / Time amoxicillin [AMOXICILLIN] Allergy Severe stroke, Verified 12/17/22 10:12 blood clots ciprofloxacin [From CIPRO] Allergy Severe ANAPHYLAXIS Verified 12/17/22 10:12 Iodinated Contrast Media Allergy Severe HIVES Verified 12/17/22 10:12 [IV DYE, IODINE CONTAINING CONTRAST ] levofloxacin Allergy Severe Anaphylaxis Verified 12/17/22 10:12 liraglutide Allergy Severe Headache Verified 12/17/22 10:12 Penicillins Allergy Severe stroke, Verified 12/17/22 10:12 blood clots phenazopyridine [Pyridium] Allergy Severe Anaphylaxis Verified 12/17/22 10:12 FREYA Inhibitors Allergy Intermediate Cough Verified 12/17/22 10:12 ARB-Angiotensin Receptor Allergy Intermediate Cough Verified 12/17/22 10:12 Antagonist atorvastatin Allergy Intermediate Shortness Verified 12/17/22 10:12 of Breath cefpodoxime Allergy Intermediate Dizziness, Verified 12/17/22 10:12 nausea celecoxib [From CELEBREX] Allergy Intermediate HIVES Verified 12/17/22 10:12 doxazosin Allergy Intermediate Shortness Verified 12/17/22 10:12 of Breath fluticasone [Advair Diskus] Allergy Intermediate Anxiety Verified 12/17/22 10:12 gabapentin [From Neurontin] Allergy Intermediate Headache Verified 12/17/22 10:12 hydralazine Allergy Intermediate Shortness Verified 12/17/22 10:12 of Breath latex Allergy Intermediate Hives Verified 12/17/22 10:12 linezolid Allergy Intermediate Nausea and Verified 12/17/22 10:12 Vomiting meloxicam Allergy Intermediate Unknown Verified 12/17/22 10:12 salmeterol [Advair Diskus] Allergy Intermediate Anxiety Verified 12/17/22 10:12 Tetanus Vaccines and Toxoid Allergy Intermediate Swelling Verified 12/17/22 10:12 torsemide Allergy Intermediate Shortness Verified 12/17/22 10:12 of Breath cephalexin [Keflex] Allergy Mild Nausea Verified 12/17/22 10:12 Review of Systems Review of Systems: Yes all other systems are reviewed and are negative PMFSH Past Medical History Medical History Allergy to multiple antibiotics Anemia Arthritis CLL (chronic lymphocytic leukemia) CLL (chronic lymphocytic leukemia) Depression Diabetes mellitus Fibromyalgia History of bilateral breast cancer History of blood transfusion History of CVA (cerebrovascular accident) History of numbness Hypercholesterolemia Hypertension Morbid obesity PONV (postoperative nausea and vomiting) Seasonal allergies Self-catheterizes urinary bladder Sleep apnea Type 2 diabetes mellitus with unspecified complications Urinary retention with incomplete bladder emptying Wears dentures Surgical History History of back surgery History of biopsy of bladder History of bladder repair surgery History of esophagogastroduodenoscopy (EGD) History of suprapubic catheter History of total hysterectomy Hx of colonoscopy S/P Botox injection S/P breast biopsy, right S/P left breast biopsy Family History Family History Mother Breast cancer Father Heart disease Father Lung cancer Mother Colon cancer Brother Pancreatic cancer Social History Social History Household Members: Significant Other Housing: House Are you a primary prompt care rn to a significant other at home: No Do you presently have visiting nurse or other home services: No Alcohol intake: never Patient Tobacco Use Status: Never used Tobacco Smoked in Last 30 Days: No Use of substances other than those prescribed or required for medical reasons: No Advance Directives: Yes Advance Directives Information Provided: No Advance Directives on File: No Advance Directives Date on File: 04/11/22 Nutrition Risks: No Nutritional Risk service: No Current occupational status: retired Physical Exam ED Vital Signs: Vital Signs - 24 hr 12/20/22 20:44 Temperature 99.0 F Pulse Rate 69 Respiratory Rate 20 Blood Pressure 168/66 H Pulse Oximetry 92 Oxygen Delivery Method Room Air BMI result Body Mass Index 35.9 Appearance: Alert. Oriented X3. No acute distress. Lethargic, delirium Eyes: PERRLA, No Nystagmus ENT: Pharynx normal. Oral Mucosa moist Neck: Normal inspection. Neck supple. CVS: Normal heart rate and rhythm. Pulses normal. Respiratory: No respiratory distress. Equal air entry bilateral, no wheezing/rales/rhonchi Abdomen: Soft diffuse suprapubic tenderness suprapubic catheter in place Bowel sounds are present, no mass palpable, no CVA tenderness Skin: Skin warm and dry. Normal skin color. Normal skin turgor. Extremities: No lower extremity edema. No calf tenderness back: Diffuse tender no focal tenderness Neuro: Oriented X 3. No motor deficit. No sensory deficit.No cerebellar signs , cranial nerves II-XII intact Medications Administered Generic Name Dose Route Start Last Admin Trade Name Freq PRN Reason Stop Dose Admin Acetaminophen 650 mg 12/20/22 22:27 12/21/22 00:41 Acetaminophen 325 Mg Tablet PO 650 mg Q6H PRN Administration Pain, Mild (Pain Scale 1-3) Enoxaparin Sodium 40 mg 12/20/22 22:30 12/20/22 22:39 Enoxaparin Sodium 40 Mg/0.4 Ml Syringe SUBCUT 40 mg Q24H JORGE Administration Ondansetron HCl 4 mg 12/20/22 22:27 12/21/22 05:02 Ondansetron Hcl 4 Mg/2 Ml Vial IVPUSH 4 mg Q8H PRN Administration Nausea and Vomiting Sodium Chloride 3 ml 12/21/22 00:00 12/21/22 01:21 0.9 % Sodium Chloride Flush 3 Ml Syringe IVFLUSH Not Given QSHIFT JORGE Discontinued Medications Generic Name Dose Route Start Last Admin Trade Name Freq PRN Reason Stop Dose Admin Sodium Chloride 1,000 mls @ 999 mls/hr 12/20/22 21:25 12/20/22 22:30 Ns IV 12/20/22 22:25 999 mls/hr .Q1H1M ONE Administration Ceftriaxone Sodium 1 gm/ 50 mls @ 100 mls/hr 12/20/22 21:25 12/20/22 22:50 Sodium Chloride IV 12/20/22 21:54 Infused ONCE ONE Infusion Morphine Sulfate 4 mg 12/20/22 22:19 12/20/22 22:28 Morphine Sulfate 4 Mg/Ml Cartridge IVPUSH 12/20/22 22:20 4 mg ONCE ONE Administration Protocol Morphine Sulfate 2 mg 12/21/22 02:13 12/21/22 02:22 Morphine Sulfate 2 Mg/Ml Cartridge IVPUSH 12/21/22 02:14 2 mg ONCE ONE Administration Protocol Ondansetron HCl 4 mg 12/20/22 22:19 12/20/22 22:29 Ondansetron Hcl 4 Mg/2 Ml Vial IVPUSH 12/20/22 22:20 4 mg ONCE ONE Administration Medical Decision Making Medical Decision Making [facility] Narrative: Patient with recurrent UTI with delirium previous UA showed Klebsiella which is resistant to Macrobid which she was taking since 12/17 patient received Rocephin yesterday will admit patient for metabolic encephalopathy with UD pending blood culture Consult Healthcare Provider Management of the patient was discussed with: Hospitalist Lab Data [facility] Lab Attestation statement: I reviewed the patient's lab results. 12/20/22 21:06 12/20/22 21:06 Labs: Lab Results 12/20/22 12/20/22 12/20/22 Range/Units 21:05 21:06 21:06 WBC 9.7 (4.8-10.8) X10*3/uL RBC 3.73 L (4.20-5.50) X10*6/uL Hgb 10.1 L (12.0-16.0) g/dl Hct 31.2 L (37.0-47.0) % MCV 83.6 (80.0-98.0) fL MCH 27.1 (27.0-33.0) pg MCHC 32.4 (31.0-35.0) g/dl RDW 14.4 (11.0-16.0) % Plt Count 175 (160-400) X10*3/uL MPV 10.9 (9.4-12.3) fL Immature Gran % (Auto) 1.6 H (0.0-0.4) % Neut % (Auto) 68.0 (45-73) % Lymph % (Auto) 20.8 (20-40) % [place] % (Auto) 9.1 (2-11) % Eos % (Auto) 0.2 (0-4) % Baso % (Auto) 0.3 (0-2) % Lymph # (Auto) 2.0 (1.2-4.9) X10*3/uL [place] # (Auto) 0.9 (0.1-1.2) X10*3/uL Eos # (Auto) 0.0 (0.0-0.4) X10*3/uL Baso # (Auto) 0.0 (0.0-0.2) X10*3/uL Abs Immat Gran (auto) 0.16 H (0.00-0.03) X10*3/uL Absolute Neuts (auto) 6.6 (2.0-8.3) x10*3/uL Absolute Nucleated RBC 0.000 (0.0-0.012) X10*3/uL Nucleated RBC % (auto) 0.0 (0.0-0.2) /100WBC Sodium 134 L (135-145) mmol/L Potassium 4.2 (3.3-5.1) mmol/L Chloride 98 (96-108) mmol/L Carbon Dioxide 25 (22-29) mmol/L Anion Gap 15 (12-20) BUN 14 (9-16) mg/dL Creatinine 0.82 (0.5-1.4) mg/dL Estim Creat Clear Calc 65.2 Estimated GFR > 60 Random Glucose 297 H (60-115) mg/dL Lactic Acid 1.1 (0.5-2.0) mmol/L Calcium 9.0 (8.4-10.2) mg/dL Total Bilirubin 1.1 H (0.0-1.0) mg/dL AST 19 (5-31) U/L ALT 11 (0-31) U/L Alkaline Phosphatase 75 (39-117) U/L Total Protein 5.6 L (6.5-8.0) g/dL Albumin 3.4 L (3.5-5.0) g/dL Discharge Plan Discharge Clinical Impression: Complicated urinary tract infection, Encephalopathy, metabolic Patient Disposition: Admitted As Inpatient
[2022-12-20 21:24] LABS: Lactic Acid 1.1 mmol/L (0.5-2.0)
[2022-12-20 21:31] LABS: Alanine Aminotransferase 11 U/L (0-31); Albumin Level 3.4 g/dL (3.5-5.0); Alkaline Phosphatase 75 U/L (39-117); Anion Gap 15 (12-20); Aspartate Amino Transferase 19 U/L (5-31); Bilirubin Total 1.1 mg/dL (0.0-1.0); Blood Urea Nitrogen 14 mg/dL (9-16); Carbon Dioxide 25 mmol/L (22-29); Chloride 98 mmol/L (96-108); Creatinine Clr Calc Pharmacy 65.2; Estimated Glomerular Filt Rate > 60; Glucose Random 297 mg/dL (60-115); Potassium 4.2 mmol/L (3.3-5.1); Sodium 134 mmol/L (135-145); Total Protein 5.6 g/dL (6.5-8.0)
--- NOTE | 2022-12-20 22:01 | PHA.MEDREC ---
Pharmacy Consult ? Medication Reconciliation Pharmacy has completed the medication reconciliation. Patient's annoyed and state nothing has changed since yesterday. Left all medications the same. Confirmed oral chemo agents. Patient reports she takes oxycodone 5 mg BID and not oxycodone 10 mg. Patient confirmed she is not on hydralazine. Removed methenamine, ondansetron and tramadol, all medications that have no recent fill and patient confirmed she no longer takes. Bushra Ruiz, PharmD
[2022-12-20 22:28] VITALS: RESP 20
[2022-12-20] MEDS: Morphine Sulfate 4 MG/ML CARTRIDGE IVPUSH (22:28)
[2022-12-20] MEDS: ondansetron HCL 4 MG/2 ML VIAL IVPUSH (22:29)
[2022-12-20] MEDS: cefTRIAXone sodium 1 GM in 0.9 % Sodium Chloride 50 ML IV (22:29)
--- NOTE | 2022-12-20 22:29 | P.HPHOSP_ITS ---
History of Present Illness Date of Service: 12/20/22 Chief Complaint: Altered mentation This is a 77-year-old female with pertinent history of recurrent UTI, chronic suprapubic catheter, [id number] diabetes mellitus, history of CVA, mood disorder, sleep apnea on CPAP, essential hypertension, chronic opioid use presents to the emergency department with complaints of lethargy and altered mentation. Patient initially presented on 12/17 and was sent home on Macrobid. Cultures from 12/17 with Klebsiella resistant to Macrobid. Patient presented again yesterday and was discharged on cefdinir. Patient states that she did not get her cefdinir and came back to the ER again as found her confused. Also complains of lethargy and generalized weakness. Admits nausea and chills. Patient denies fever, vomiting, abdominal pain, changes in bowel habits. Review of Systems Constitutional: Constitutional: Reports fatigue, Reports lethargy and Reports malaise Cardiovascular: Cardiovascular: Reports no additional cardiovascular complaints Respiratory: Respiratory: Reports no additional respiratory complaints Gastrointestinal: Gastrointestinal: Reports no additional gastrointestinal complaints Neurologic: Reports confusion Psychiatric: Psychiatric: Reports confusion Endocrine: Endocrine: Reports fatigue [facility] Medical History Allergy to multiple antibiotics Anemia Arthritis CLL (chronic lymphocytic leukemia) CLL (chronic lymphocytic leukemia) Depression Diabetes mellitus Fibromyalgia History of bilateral breast cancer History of blood transfusion History of CVA (cerebrovascular accident) History of numbness Hypercholesterolemia Hypertension Morbid obesity PONV (postoperative nausea and vomiting) Seasonal allergies Self-catheterizes urinary bladder Sleep apnea Type 2 diabetes mellitus with unspecified complications Urinary retention with incomplete bladder emptying Wears dentures Family History Mother Breast cancer Father Heart disease Father Lung cancer Mother Colon cancer Brother Pancreatic cancer Surgical History History of back surgery History of biopsy of bladder History of bladder repair surgery History of esophagogastroduodenoscopy (EGD) History of suprapubic catheter History of total hysterectomy Hx of colonoscopy S/P Botox injection S/P breast biopsy, right S/P left breast biopsy Social History Household Members: Significant Other Housing: House Are you a primary post acute care nurse practitioner to a significant other at home: No Do you presently have visiting nurse or other home services: No Alcohol intake: never Patient Tobacco Use Status: Never used Tobacco Smoked in Last 30 Days: No Use of substances other than those prescribed or required for medical reasons: No Advance Directives: Yes Advance Directives Information Provided: No Advance Directives on File: No Advance Directives Date on File: 04/11/22 service: No Current occupational status: retired Meds Allergies Allergy/AdvReac Type Severity Reaction Status Date / Time amoxicillin [AMOXICILLIN] Allergy Severe stroke, Verified 12/17/22 10:12 blood clots ciprofloxacin [From CIPRO] Allergy Severe ANAPHYLAXIS Verified 12/17/22 10:12 Iodinated Contrast Media Allergy Severe HIVES Verified 12/17/22 10:12 [IV DYE, IODINE CONTAINING CONTRAST ] levofloxacin Allergy Severe Anaphylaxis Verified 12/17/22 10:12 liraglutide Allergy Severe Headache Verified 12/17/22 10:12 Penicillins Allergy Severe stroke, Verified 12/17/22 10:12 blood clots phenazopyridine [Pyridium] Allergy Severe Anaphylaxis Verified 12/17/22 10:12 FREYA Inhibitors Allergy Intermediate Cough Verified 12/17/22 10:12 ARB-Angiotensin Receptor Allergy Intermediate Cough Verified 12/17/22 10:12 Antagonist atorvastatin Allergy Intermediate Shortness Verified 12/17/22 10:12 of Breath cefpodoxime Allergy Intermediate Dizziness, Verified 12/17/22 10:12 nausea celecoxib [From CELEBREX] Allergy Intermediate HIVES Verified 12/17/22 10:12 doxazosin Allergy Intermediate Shortness Verified 12/17/22 10:12 of Breath fluticasone [Advair Diskus] Allergy Intermediate Anxiety Verified 12/17/22 10:12 gabapentin [From Neurontin] Allergy Intermediate Headache Verified 12/17/22 10:12 hydralazine Allergy Intermediate Shortness Verified 12/17/22 10:12 of Breath latex Allergy Intermediate Hives Verified 12/17/22 10:12 linezolid Allergy Intermediate Nausea and Verified 12/17/22 10:12 Vomiting meloxicam Allergy Intermediate Unknown Verified 12/17/22 10:12 salmeterol [Advair Diskus] Allergy Intermediate Anxiety Verified 12/17/22 10:12 Tetanus Vaccines and Toxoid Allergy Intermediate Swelling Verified 12/17/22 10:12 torsemide Allergy Intermediate Shortness Verified 12/17/22 10:12 of Breath cephalexin [Keflex] Allergy Mild Nausea Verified 12/17/22 10:12 Active Medications: Current Medications Pharmacy Consult (Consult Rx Perform Med Rec) 1 each MISCELLANE ONCE PRN PRN Reason: Consult order Home Medications Medication Instructions Recorded Confirmed Last Taken Type citalopram 20 mg tablet 20 mg PO DAILY 07/21/20 12/20/22 04/16/22 History duloxetine 60 mg capsule,delayed 60 mg PO DAILY 07/21/20 12/20/22 04/16/22 History release spironolactone 25 mg tablet 25 mg PO DAILY 07/21/20 12/20/22 Unknown History amlodipine 10 mg tablet 10 mg PO DAILY 03/23/21 12/20/22 04/16/22 History metformin 1,000 mg tablet 1,000 mg PO BID 04/19/21 12/20/22 Unknown History carvedilol 25 mg tablet 25 mg PO BID 05/31/21 12/20/22 04/16/22 History pregabalin 150 mg capsule 150 mg PO BID 07/27/21 12/20/22 04/16/22 History sulindac 150 mg tablet 150 mg PO BID 07/27/21 12/20/22 04/15/22 History furosemide 20 mg tablet 40 mg PO QAM PRN Edema 08/27/22 12/20/22 Unknown History blood sugar diagnostic (Accu-Chek #10 ea 09/04/22 12/04/22 Unknown History Guide test strips) ibrutinib 420 mg tablet (Imbruvica) 420 mg PO DAILY 10/30/22 12/20/22 Unknown History lorazepam 0.5 mg tablet 1 tab PO Q8H PRN anxiety 10/30/22 12/20/22 Unknown History sennosides 8.6 mg tablet (senna) 17.2 mg PO BEDTIME PRN Constipation 10/30/22 12/20/22 Unknown History oxycodone 5 mg tablet 5 mg PO BID PRN pain 12/20/22 12/20/22 Unknown History Physical Exam Vital Signs and Narrative: Vital Signs: Last Vital Signs Temp 99.0 F 12/20/22 20:44 Pulse 69 12/20/22 20:44 Resp 20 12/20/22 20:44 BP 168/66 H 12/20/22 20:44 Pulse Ox 92 12/20/22 20:44 O2 Del Method Room Air 12/20/22 20:44 BMI result Body Mass Index 35.9 Middle-aged female lying in bed in no distress Neck supple, no JVD Regular rate and rhythm, S1-S2 heard Regular breath sounds bilaterally, no wheezing or crackles appreciated Abdomen soft nontender, no guarding, no rigidity, suprapubic catheter in place Patient is awake, alert and oriented to place and person, disoriented to time Psych: Normal mood No pedal edema Const: General: confusion Orientation/consciousness: confusion Neuro: General: confusion Results Labs 12/20/22 21:06 12/20/22 21:06 Labs: Laboratory Results - last 24 hr 12/20/22 12/20/22 12/20/22 21:05 21:06 21:06 MCV 83.6 MCH 27.1 MCHC 32.4 RDW 14.4 Plt Count 175 MPV 10.9 Immature Gran % (Auto) 1.6 H Neut % (Auto) 68.0 Lymph % (Auto) 20.8 [place] % (Auto) 9.1 Eos % (Auto) 0.2 Baso % (Auto) 0.3 Lymph # (Auto) 2.0 [place] # (Auto) 0.9 Eos # (Auto) 0.0 Baso # (Auto) 0.0 Abs Immat Gran (auto) 0.16 H Absolute Neuts (auto) 6.6 Absolute Nucleated RBC 0.000 Nucleated RBC % (auto) 0.0 Anion Gap 15 Estim Creat Clear Calc 65.2 Estimated GFR > 60 Random Glucose 297 H Lactic Acid 1.1 Calcium 9.0 Total Bilirubin 1.1 H AST 19 ALT 11 Alkaline Phosphatase 75 Total Protein 5.6 L Albumin 3.4 L Assessment and Plan (1) UTI (urinary tract infection): Status: Acute Plan This is a 77-year-old female with pertinent history of recurrent UTI, chronic suprapubic catheter, aaw-jiulbbr-psqeqnoeg diabetes mellitus, history of CVA, mood disorder, sleep apnea on CPAP, essential hypertension, chronic opioid use presents to the emergency department with complaints of lethargy and altered mentation. #. Acute metabolic encephalopathy due to acute UTI: Noted previous urine cult ure, initiating Rocephin 1 g daily. Blood cultures and repeat urine culture pending. Monitor mentation with IV antibiotics, maintain sleep-wake cycle. #. Epn-iryozgt-hhrizbdzj diabetes mellitus with hyperglycemia: Initiating Accu-Cheks with sliding scale insulin #. Essential hypertension: Continue home antihypertensives #. Mood disorder: Continue home mood stabilizers #. Morbid obesity: Encouraged to lose weight #. Chronic normocytic anemia Med rec pending DVT prophylaxis: Lovenox 40 mg daily Full code Cardiac diet Admit as inpatient and will require two night minimum hospital stay for IV antibiotics Time Spent With Patient Time: Total time managing care of this patient today ____ minutes. Quality Stroke Does the patient have a stroke diagnosis?: No VTE Prior VTE?: No VTE Risk Level:: Medical - moderate - high VTE Device Contraindication: Treatment Not Indicated VTE Drug Contraindication: N/A - Med Ordered
[2022-12-20] MEDS: 0.9 % Sodium Chloride 1,000 ML 999 ML IV (22:30)
[2022-12-20] MEDS: Enoxaparin Sodium 40 MG/0.4 ML SYRINGE SUBCUT (22:39)
[2022-12-20 23:24] VITALS: BP 162/56; PULSE 69; RESP 17; TEMP 36.9; O2SAT 97
[2022-12-21] VITALS (8 sets, daily range): BP systolic 124–162; BP diastolic 56–74; PULSE 67–76; RESP 16–22; TEMP 36.4–37.3; O2SAT 96–99
[2022-12-21] MEDS: Acetaminophen 325 MG TABLET 650 MG PO (00:41)
[2022-12-21] MEDS: Morphine Sulfate 2 MG/ML CARTRIDGE IVPUSH (02:22)
--- NOTE | 2022-12-21 02:37 | PC.NURSE ---
Patient is alert and orientedx2-to self and person. Patient continues to complain of lower back pain 9/10 at present. Patient medicated with Tylenol PO and Morphine IV push PRN-effect pending. Right lower abdomen suprapubic catheter insertion site is benign, catheter draining yellow, cloudy urine. Call capps placed within patient's reach, patient instructed in use. patient verbalized understanding.
--- NOTE | 2022-12-21 02:57 | PC.NURSE ---
Patient expressed concern about abdominal distention. Patient unable to recall when was her last BM. + BSx4, +flatus. Suprapubic catheter is patent, draining yellow, cloudy urine-urine output 1200 mL. Nathaniel notified. to order KUB.
[2022-12-21] MEDS: ondansetron HCL 4 MG/2 ML VIAL IVPUSH (05:02)
--- NOTE | 2022-12-21 05:04 | PC.NURSE ---
Patient reports nausea. Administered Zofran as per NOV.
[2022-12-21 06:08] LABS: MANUAL DIFF FLAG NO
[2022-12-21 06:18] LABS: Basophils Percent Auto 0.5 % (0-2); Eosinophils Percent Auto 0.3 % (0-4); Hematocrit 30.3 % (37.0-47.0); Hemoglobin 9.8 g/dl (12.0-16.0); Imm Gran Abs Auto 0.17 X10*3/uL (0.00-0.03); Imm Gran Pct Auto 1.9 % (0.0-0.4); Lymphocytes Absolute Auto 1.7 X10*3/uL (1.2-4.9); Lymphocytes Percent Auto 19.5 % (20-40); Mean Corpuscular HGB Conc 32.3 g/dl (31.0-35.0); Mean Corpuscular Hemoglobin 27.6 pg (27.0-33.0); Mean Corpuscular Volume 85.4 fL (80.0-98.0); Mean Platelet Volume 11.5 fL (9.4-12.3); Monocytes Absolute Auto 0.9 X10*3/uL (0.1-1.2); Monocytes Percent Auto 10.6 % (2-11); Neutrophils Absolute Auto 5.9 x10*3/uL (2.0-8.3); Neutrophils Percent Auto 67.2 % (45-73); Platelet Count 158 X10*3/uL (160-400); Red Blood Count 3.55 X10*6/uL (4.20-5.50); Red Cell Distribution Width 14.4 % (11.0-16.0); White Blood Count 8.7 X10*3/uL (4.8-10.8)
[2022-12-21 06:28] LABS: Anion Gap 12 (12-20); Blood Urea Nitrogen 12 mg/dL (9-16); Calcium 8.7 mg/dL (8.4-10.2); Carbon Dioxide 27 mmol/L (22-29); Chloride 103 mmol/L (96-108); Creatinine Clr Calc Pharmacy 60.8; Estimated Glomerular Filt Rate > 60; Glucose Random 253 mg/dL (60-115); Potassium 3.5 mmol/L (3.3-5.1); Sodium 138 mmol/L (135-145)
[2022-12-21 07:18] LABS: Glucose, Whole Blood 237 mg/dL (60-115)
[2022-12-21] MEDS: Insulin Lispro 100 UNIT/ML 3 ML VIAL SUBCUT ×4 (07:19→20:53)
[2022-12-21] MEDS: 0.9 % Sodium Chloride Flush 3 ML SYRINGE IVFLUSH ×3 (07:20→20:54)
[2022-12-21] MEDS: ondansetron HCL 4 MG/2 ML VIAL 8 MG IVPUSH (09:33)
[2022-12-21] MEDS: amLODIPine Besylate 10 MG TABLET PO (09:34)
[2022-12-21] MEDS: Ferrous Sulfate 324 MG TABLET.DR PO (09:34)
[2022-12-21] MEDS: carvediloL 25 MG TABLET PO ×2 (09:34→20:54)
[2022-12-21] MEDS: DULoxetine HCl 60 MG CAPSULE.DR PO (09:34)
[2022-12-21] MEDS: Pregabalin 150 MG CAPSULE PO ×2 (09:34→20:54)
[2022-12-21] MEDS: Spironolactone 25 MG TABLET PO (09:34)
[2022-12-21] MEDS: Morphine Sulfate 4 MG/ML CARTRIDGE IVPUSH ×2 (10:16→13:15)
--- NOTE | 2022-12-21 11:28 | PC.NURSE ---
report given to media services specialist
[2022-12-21 12:39] LABS: Glucose, Whole Blood 257 mg/dL (60-115)
--- NOTE | 2022-12-21 14:01 | PC.NURSE ---
Assumed care of pt at approximately 1230. At this time Pt A&Ox4 and cooperative with care pt able to answer all questions appropriately. Pt was slid from bed to stretcher without difficulty. VSS, Blood sugar 257, coved per sliding scale and given a snack. Pt endorses abdominal pain, abd round and obese, +BS, tender to palpation, MD pearce aware ordered 1x dose IV morphine hourly caregiver per ordered with positive effect. All safety measures in place.
--- NOTE | 2022-12-21 15:20 | HO.PM.IMPN ---
Subjective Subjective Date of Service: 12/21/22 Interval History: Clear this a.m.. Back pain persistent Review of Systems Denies chest pain Denies shortness of breath Denies nausea vomiting diarrhea Denies fever chills Physical Exam Vital Signs: Vital Signs: Last Vital Signs Temp 99.1 F 12/21/22 12:38 Pulse 69 12/21/22 12:38 Resp 18 12/21/22 12:38 BP 127/59 L 12/21/22 12:38 Pulse Ox 96 12/21/22 12:38 O2 Del Method Nasal Cannula 12/21/22 12:38 O2 Flow Rate 2 12/21/22 12:38 BMI result Body Mass Index 35.9 Const: Other: Awake alert oriented x3 no acute distress Resp: Other: Clear to auscultation bilaterally no rales rhonchi wheezes Cardio: Other: No S4; positive S1-S2; no S3 murmurs rubs or gallops GI: Other: Soft nontender nondistended normoactive bowel sounds Neuro: Other: Cranial nerves 2-12 grossly intact as tested. Motor 5/5 all extremities. Sensation intact. Cognition appropriate Extrem: Other: No edema bilaterally Objective Data Active Medications Acetaminophen (Acetaminophen 325 Mg Tablet) 650 mg PO Q6H PRN PRN Reason: Pain, Mild (Pain Scale 1-3) Last Admin: 12/21/22 00:41 Dose: 650 mg Documented By: АНДРЕЙ Amlodipine Besylate (Amlodipine Besylate 10 Mg Tablet) 10 mg PO DAILY [facility]; Protocol Last Admin: 12/21/22 09:34 Dose: 10 mg Documented By: CANDIDA Aspirin (Aspirin Enteric Coated 81 Mg Tablet.) 81 mg PO DAILY [facility] Carvedilol (Carvedilol 25 Mg Tablet) 25 mg PO BID [facility]; Protocol Last Admin: 12/21/22 09:34 Dose: 25 mg Documented By: CANDIDA Duloxetine HCl (Duloxetine Hcl 60 Mg Capsule.) 60 mg PO DAILY [facility] Last Admin: 12/21/22 09:34 Dose: 60 mg Documented By: CANDIDA Enoxaparin Sodium (Enoxaparin Sodium 40 Mg/0.4 Ml Syringe) 40 mg SUBCUT Q24H [facility] Last Admin: 12/20/22 22:39 Dose: 40 mg Documented By: АНДРЕЙ Escitalopram Oxalate (Escitalopram Oxalate 10 Mg Tablet) 10 mg PO DAILY [facility] Famotidine (Famotidine 20 Mg Tablet) 40 mg PO BEDTIME [facility] Ferrous Sulfate (Ferrous Sulfate 324 Mg Tablet.) 324 mg PO DAILY [facility] Last Admin: 12/21/22 09:34 Dose: 324 mg Documented By: CANDIDA Furosemide (Furosemide 40 Mg Tablet) 40 mg PO DAILY PRN; Protocol PRN Reason: Edema Glucose (Glucose Gel 15 Gm Gel..Gram.) 15 gm PO Q15M PRN; Protocol PRN Reason: per Hypoglycemia Standing Ord. Dextrose (D10) 250 mls @ 750 mls/hr IV Q15M PRN; Protocol PRN Reason: per Hypoglycemia Standing Ord. Ceftriaxone Sodium 1 gm/ (Sodium Chloride) 50 mls @ 100 mls/hr IV Q24H [facility] Insulin Human Lispro (Insulin Lispro 100 Unit/Ml 3 Ml Vial) 0 unit SUBCUT QIDACHS [facility]; Protocol Last Admin: 12/21/22 12:52 Dose: 6 unit Documented By: LIANNA Comments: new admit to [facility] from ED, pt having snack Lorazepam (Lorazepam 0.5 Mg Tablet) 0.5 mg PO Q8H PRN PRN Reason: anxiety Melatonin (Melatonin 3 Mg Tablet) 6 mg PO BEDTIME PRN PRN Reason: Insomnia Non-Formulary Medication (Ibrutinib [Imbruvica]) 420 mg PO DAILY [facility] Omeprazole (Omeprazole 20 Mg Capsule.) 20 mg PO DAILY@0630 [facility] Ondansetron HCl (Ondansetron Hcl 4 Mg/2 Ml Vial) 4 mg IVPUSH Q8H PRN PRN Reason: Nausea and Vomiting Last Admin: 12/21/22 05:02 Dose: 4 mg Documented By: WARREN Ondansetron HCl (Ondansetron Hcl 4 Mg/2 Ml Vial) 8 mg IVPUSH Q8H PRN PRN Reason: Nausea and Vomiting Last Admin: 12/21/22 09:33 Dose: 8 mg Documented By: CANDIDA Oxycodone HCl (Oxycodone Hcl Immed Release 5 Mg Tablet) 5 mg PO Q4H PRN PRN Reason: Pain, Moderate (Pain Scale 4-6 Pharmacy Consult (Consult Rx Perform Med Rec) 1 each MISCELLANE ONCE PRN PRN Reason: Consult order Pregabalin (Pregabalin 150 Mg Capsule) 150 mg PO BID [facility] Last Admin: 12/21/22 09:34 Dose: 150 mg Documented By: CANDIDA Sodium Chloride (0.9 % Sodium Chloride Flush 3 Ml Syringe) 3 ml IVFLUSH QSHIFT [facility] Last Admin: 12/21/22 07:20 Dose: 3 ml Documented By: CANDIDA Spironolactone (Spironolactone 25 Mg Tablet) 25 mg PO DAILY [facility]; Protocol Last Admin: 12/21/22 09:34 Dose: 25 mg Documented By: CANDIDA Labs 12/21/22 05:47 12/21/22 05:47 Labs: Laboratory Results - last 24 hr 12/20/22 12/20/22 12/20/22 21:05 21:06 21:06 MCV 83.6 MCH 27.1 MCHC 32.4 RDW 14.4 Plt Count 175 MPV 10.9 Immature Gran % (Auto) 1.6 H Neut % (Auto) 68.0 Lymph % (Auto) 20.8 [place] % (Auto) 9.1 Eos % (Auto) 0.2 Baso % (Auto) 0.3 Lymph # (Auto) 2.0 [place] # (Auto) 0.9 Eos # (Auto) 0.0 Baso # (Auto) 0.0 Abs Immat Gran (auto) 0.16 H Absolute Neuts (auto) 6.6 Absolute Nucleated RBC 0.000 Nucleated RBC % (auto) 0.0 Anion Gap 15 Estim Creat Clear Calc 65.2 Estimated GFR > 60 POC Glucose Random Glucose 297 H Lactic Acid 1.1 Calcium 9.0 Total Bilirubin 1.1 H AST 19 ALT 11 Alkaline Phosphatase 75 Total Protein 5.6 L Albumin 3.4 L 12/21/22 12/21/22 12/21/22 05:47 05:47 07:14 MCV 85.4 MCH 27.6 MCHC 32.3 RDW 14.4 Plt Count 158 L MPV 11.5 Immature Gran % (Auto) 1.9 H Neut % (Auto) 67.2 Lymph % (Auto) 19.5 L [place] % (Auto) 10.6 Eos % (Auto) 0.3 Baso % (Auto) 0.5 Lymph # (Auto) 1.7 [place] # (Auto) 0.9 Eos # (Auto) 0.0 Baso # (Auto) 0.0 Abs Immat Gran (auto) 0.17 H Absolute Neuts (auto) 5.9 Absolute Nucleated RBC 0.000 Nucleated RBC % (auto) 0.0 Anion Gap 12 Estim Creat Clear Calc 60.8 Estimated GFR > 60 POC Glucose 237 H Random Glucose 253 H Lactic Acid Calcium 8.7 Total Bilirubin AST ALT Alkaline Phosphatase Total Protein Albumin 12/21/22 12:32 MCV MCH MCHC RDW Plt Count MPV Immature Gran % (Auto) Neut % (Auto) Lymph % (Auto) [place] % (Auto) Eos % (Auto) Baso % (Auto) Lymph # (Auto) [place] # (Auto) Eos # (Auto) Baso # (Auto) Abs Immat Gran (auto) Absolute Neuts (auto) Absolute Nucleated RBC Nucleated RBC % (auto) Anion Gap Estim Creat Clear Calc Estimated GFR POC Glucose 257 H Random Glucose Lactic Acid Calcium Total Bilirubin AST ALT Alkaline Phosphatase Total Protein Albumin Assessment and Plan (1) UTI (urinary tract infection): Status: Acute (2) Encephalopathy, metabolic: Status: Acute (3) Diabetes with neurologic complications: Status: Acute Plan This is a 77-year-old female with pertinent history of recurrent UTI, chronic suprapubic catheter, tmf-xjfvebd-ytmhgcgpl diabetes mellitus, history of CVA, mood disorder, sleep apnea on CPAP, essential hypertension, chronic opioid use presents to the emergency department with complaints of lethargy and altered mentation. 1,Acute metabolic encephalopathy secondary to UTI: -ceftriaxone 1 g daily -adjust as per cultures 2.Hpk-kaofeab-eljijmyiw diabetes mellitus -acceptable control on current therapies -continue lispro correctional scale -adjust as indicated 3.Essential hypertension -acceptable control on current therapies -follow renals/divalents Lovenox 40 mg daily Full code Will require ongoing hospitalization for IV antibiotics to treat urinary tract infection pending cultures Time Spent With Patient Time: Total time managing care of this patient today ____ minutes. Quality Stroke Does the patient have a stroke diagnosis?: No VTE Prior VTE?: No VTE Risk Level:: Medical - moderate - high VTE Device Contraindication: Treatment Not Indicated VTE Drug Contraindication: N/A - Med Ordered
--- NOTE | 2022-12-21 16:04 | MHC.CLN ---
NUTRITION CHANGED DIET TO DIABETIC 1800 KCALS, 2 GRAM SODIUM.
[2022-12-21 16:35] LABS: Glucose, Whole Blood 214 mg/dL (60-115)
[2022-12-21] MEDS: oxyCODONE HCl Immed Release 5 MG TABLET PO ×2 (17:07→21:34)
[2022-12-21 20:12] LABS: Glucose, Whole Blood 165 mg/dL (60-115)
[2022-12-21] MEDS: Famotidine 20 MG TABLET 40 MG PO (20:54)
[2022-12-21] MEDS: Enoxaparin Sodium 40 MG/0.4 ML SYRINGE SUBCUT (21:35)
[2022-12-21] MEDS: cefTRIAXone sodium 1 GM in 0.9 % Sodium Chloride 50 ML IV (21:36)
[2022-12-22] MEDS: oxyCODONE HCl Immed Release 5 MG TABLET PO ×5 (02:41→21:28)
[2022-12-22 03:29] VITALS: BP 130/61; PULSE 68; RESP 18; TEMP 36.6; O2SAT 95
[2022-12-22] MEDS: Omeprazole 20 MG CAPSULE.DR PO (06:18)
[2022-12-22 07:10] VITALS: BP 145/68; PULSE 69; RESP 18; TEMP 36.6; O2SAT 96
[2022-12-22 07:31] LABS: Glucose, Whole Blood 181 mg/dL (60-115)
[2022-12-22] MEDS: Pregabalin 150 MG CAPSULE PO ×2 (07:44→20:53)
[2022-12-22] MEDS: Ferrous Sulfate 324 MG TABLET.DR PO (07:44)
[2022-12-22] MEDS: amLODIPine Besylate 10 MG TABLET PO (07:44)
[2022-12-22] MEDS: Spironolactone 25 MG TABLET PO (07:44)
[2022-12-22] MEDS: Escitalopram Oxalate 10 MG TABLET PO (07:44)
[2022-12-22] MEDS: DULoxetine HCl 60 MG CAPSULE.DR PO (07:44)
[2022-12-22] MEDS: Aspirin Enteric Coated 81 MG TABLET.DR PO (07:45)
[2022-12-22] MEDS: carvediloL 25 MG TABLET PO ×2 (07:45→20:53)
[2022-12-22] MEDS: 0.9 % Sodium Chloride Flush 3 ML SYRINGE IVFLUSH ×3 (07:45→20:54)
[2022-12-22] MEDS: Insulin Lispro 100 UNIT/ML 3 ML VIAL SUBCUT ×4 (07:45→21:05)
[2022-12-22 11:27] LABS: Glucose, Whole Blood 259 mg/dL (60-115)
--- NOTE | 2022-12-22 11:30 | HO.PM.IMPN ---
Subjective Subjective Date of Service: 12/22/22 Interval History: Much clear thought process today. States feeling back to baseline Review of Systems Denies chest pain Denies shortness of breath Denies nausea vomiting diarrhea Denies fever chills Physical Exam Vital Signs: Vital Signs: Last Vital Signs Temp 97.8 F 12/22/22 07:10 Pulse 69 12/22/22 07:10 Resp 18 12/22/22 07:10 BP 145/68 H 12/22/22 07:10 Pulse Ox 96 12/22/22 07:10 O2 Del Method Room Air 12/22/22 07:10 O2 Flow Rate 2 12/22/22 03:29 BMI result Body Mass Index 35.9 Const: Other: Awake alert oriented x3 no acute distress Resp: Other: Clear to auscultation bilaterally no rales rhonchi wheezes Cardio: Other: No S4; positive S1-S2; no S3 murmurs rubs or gallops GI: Other: Soft nontender nondistended normoactive bowel sounds; suprapubic cath site clean dry and intact Neuro: Other: Cranial nerves 2-12 grossly intact as tested. Motor 5/5 all extremities. Sensation intact. Cognition appropriate Extrem: Other: No edema bilaterally Objective Data Active Medications Acetaminophen (Acetaminophen 325 Mg Tablet) 650 mg PO Q6H PRN PRN Reason: Pain, Mild (Pain Scale 1-3) Last Admin: 12/21/22 00:41 Dose: 650 mg Documented By: АНДРЕЙ Amlodipine Besylate (Amlodipine Besylate 10 Mg Tablet) 10 mg PO DAILY [facility]; Protocol Last Admin: 12/22/22 07:44 Dose: 10 mg Documented By: NATACHA Aspirin (Aspirin Enteric Coated 81 Mg Tablet.) 81 mg PO DAILY [facility] Last Admin: 12/22/22 07:45 Dose: 81 mg Documented By: NATACHA Carvedilol (Carvedilol 25 Mg Tablet) 25 mg PO BID [facility]; Protocol Last Admin: 12/22/22 07:45 Dose: 25 mg Documented By: NATACHA Duloxetine HCl (Duloxetine Hcl 60 Mg Capsule.) 60 mg PO DAILY [facility] Last Admin: 12/22/22 07:44 Dose: 60 mg Documented By: NATACHA Enoxaparin Sodium (Enoxaparin Sodium 40 Mg/0.4 Ml Syringe) 40 mg SUBCUT Q24H [facility] Last Admin: 12/21/22 21:35 Dose: 40 mg Documented By: PRAMOD Escitalopram Oxalate (Escitalopram Oxalate 10 Mg Tablet) 10 mg PO DAILY [facility] Last Admin: 12/22/22 07:44 Dose: 10 mg Documented By: NATACHA Famotidine (Famotidine 20 Mg Tablet) 40 mg PO BEDTIME [facility] Last Admin: 12/21/22 20:54 Dose: 40 mg Documented By: PRAMOD Ferrous Sulfate (Ferrous Sulfate 324 Mg Tablet.) 324 mg PO DAILY [facility] Last Admin: 12/22/22 07:44 Dose: 324 mg Documented By: NATACHA Furosemide (Furosemide 40 Mg Tablet) 40 mg PO DAILY PRN; Protocol PRN Reason: Edema Glucose (Glucose Gel 15 Gm Gel..Gram.) 15 gm PO Q15M PRN; Protocol PRN Reason: per Hypoglycemia Standing Ord. Dextrose (D10) 250 mls @ 750 mls/hr IV Q15M PRN; Protocol PRN Reason: per Hypoglycemia Standing Ord. Ceftriaxone Sodium 1 gm/ (Sodium Chloride) 50 mls @ 100 mls/hr IV Q24H [facility] Last Infusion: 12/21/22 22:16 Dose: 0 mls/hr Documented By: PRAMOD Insulin Human Lispro (Insulin Lispro 100 Unit/Ml 3 Ml Vial) 0 unit SUBCUT QIDACHS [facility]; Protocol Last Admin: 12/22/22 07:45 Dose: 2 unit Documented By: NATACHA Lorazepam (Lorazepam 0.5 Mg Tablet) 0.5 mg PO Q8H PRN PRN Reason: anxiety Melatonin (Melatonin 3 Mg Tablet) 6 mg PO BEDTIME PRN PRN Reason: Insomnia Non-Formulary Medication (Ibrutinib [Imbruvica]) 420 mg PO DAILY [facility] Omeprazole (Omeprazole 20 Mg Capsule.) 20 mg PO DAILY@0630 [facility] Last Admin: 12/22/22 06:18 Dose: 20 mg Documented By: PRAMOD Ondansetron HCl (Ondansetron Hcl 4 Mg/2 Ml Vial) 4 mg IVPUSH Q8H PRN PRN Reason: Nausea and Vomiting Last Admin: 12/21/22 05:02 Dose: 4 mg Documented By: WARREN Ondansetron HCl (Ondansetron Hcl 4 Mg/2 Ml Vial) 8 mg IVPUSH Q8H PRN PRN Reason: Nausea and Vomiting Last Admin: 12/21/22 09:33 Dose: 8 mg Documented By: MARCINSTKj Oxycodone HCl (Oxycodone Hcl Immed Release 5 Mg Tablet) 5 mg PO Q4H PRN PRN Reason: Pain, Moderate (Pain Scale 4-6 Last Admin: 12/22/22 08:25 Dose: 5 mg Documented By: NATACHA Pharmacy Consult (Consult Rx Perform Med Rec) 1 each MISCELLANE ONCE PRN PRN Reason: Consult order Pregabalin (Pregabalin 150 Mg Capsule) 150 mg PO BID [facility] Last Admin: 12/22/22 07:44 Dose: 150 mg Documented By: NATACHA Sodium Chloride (0.9 % Sodium Chloride Flush 3 Ml Syringe) [facility] Last Admin: 12/22/22 07:45 Dose: 3 ml Documented By: NATACHA Spironolactone (Spironolactone 25 Mg Tablet) 25 mg PO DAILY [facility]; Protocol Last Admin: 12/22/22 07:44 Dose: 25 mg Documented By: NATACHA Labs 12/21/22 05:47 12/21/22 05:47 Labs: Laboratory Results - last 24 hr 12/21/22 12/21/22 12/21/22 12:32 16:28 19:56 POC Glucose 257 H 214 H 165 H 12/22/22 12/22/22 07:13 11:21 POC Glucose 181 H 259 H Microbiology Microbiology Results: Microbiology 12/21/22 06:46 Urine Culture - Final Urine Catheterized - Henao Catheter No growth. 12/20/22 22:18 Blood Culture - Preliminary Blood - Venous No growth after 24 hours. 12/20/22 22:18 Blood Culture - Preliminary Blood - Venous No growth after 24 hours. Assessment and Plan (1) Encephalopathy, metabolic: Status: Acute (2) UTI (urinary tract infection): Status: Acute (3) Hypertension: Status: Acute Plan This is a 77-year-old female with pertinent history of recurrent UTI, chronic suprapubic catheter, nhv-lfjzgtv-sewgrnpio diabetes mellitus, history of CVA, mood disorder, sleep apnea on CPAP, essential hypertension, chronic opioid use presents to the emergency department with complaints of lethargy and altered mentation. 1,Acute metabolic encephalopathy secondary to UTI: -ceftriaxone 1 g daily -Klebsiella sensitive to ceftriaxone -if blood cultures negative times 48 hours consider DC to home on oral 2.Gud-jixwgmm-osepgfcmy diabetes mellitus -acceptable control on current therapies -continue lispro correctional scale -adjust as indicated 3.Essential hypertension -acceptable control on current therapies -follow renals/divalents Lovenox 40 mg daily Full code Will require ongoing hospitalization for IV antibiotics to treat urinary tract infection pending cultures Time Spent With Patient Time: Total time managing care of this patient today ____ minutes. Quality Stroke Does the patient have a stroke diagnosis?: No VTE Prior VTE?: No VTE Risk Level:: Medical - moderate - high VTE Device Contraindication: Treatment Not Indicated VTE Drug Contraindication: N/A - Med Ordered
[2022-12-22 15:34] VITALS: BP 147/69; PULSE 65; RESP 17; TEMP 36.4; O2SAT 95
[2022-12-22 16:35] LABS: Glucose, Whole Blood 298 mg/dL (60-115)
[2022-12-22 19:07] VITALS: BP 152/67; PULSE 70; RESP 15; TEMP 36.1; O2SAT 94
[2022-12-22 20:28] LABS: Glucose, Whole Blood 239 mg/dL (60-115)
[2022-12-22] MEDS: Famotidine 20 MG TABLET 40 MG PO (20:53)
[2022-12-22] MEDS: Acetaminophen 325 MG TABLET 650 MG PO (20:54)
[2022-12-22] MEDS: cefTRIAXone sodium 1 GM in 0.9 % Sodium Chloride 50 ML IV (21:28)
[2022-12-22] MEDS: Enoxaparin Sodium 40 MG/0.4 ML SYRINGE SUBCUT (21:28)
[2022-12-23] MEDS: oxyCODONE HCl Immed Release 5 MG TABLET PO ×3 (04:05→12:38)
[2022-12-23] MEDS: Omeprazole 20 MG CAPSULE.DR PO (06:06)
[2022-12-23 07:34] VITALS: BP 152/70; PULSE 18; RESP 18; TEMP 36.8; O2SAT 95
[2022-12-23 07:47] LABS: Glucose, Whole Blood 200 mg/dL (60-115)
[2022-12-23] MEDS: Aspirin Enteric Coated 81 MG TABLET.DR PO (08:34)
[2022-12-23] MEDS: Escitalopram Oxalate 10 MG TABLET PO (08:34)
[2022-12-23] MEDS: Spironolactone 25 MG TABLET PO (08:34)
[2022-12-23] MEDS: Pregabalin 150 MG CAPSULE PO (08:34)
[2022-12-23] MEDS: DULoxetine HCl 60 MG CAPSULE.DR PO (08:35)
[2022-12-23] MEDS: carvediloL 25 MG TABLET PO (08:35)
[2022-12-23] MEDS: amLODIPine Besylate 10 MG TABLET PO (08:36)
[2022-12-23] MEDS: Ferrous Sulfate 324 MG TABLET.DR PO (08:36)
[2022-12-23] MEDS: Insulin Lispro 100 UNIT/ML 3 ML VIAL SUBCUT ×2 (08:40→11:44)
[2022-12-23] MEDS: 0.9 % Sodium Chloride Flush 3 ML SYRINGE IVFLUSH (08:41)
--- NOTE | 2022-12-23 10:05 | MHC.CM.PN ---
met w/ pt and her they explin that pt is active w/[facility] .has own ride home and is covid vax x 5 dc plan home with [facility]
[2022-12-23 11:18] LABS: Glucose, Whole Blood 242 mg/dL (60-115)
--- NOTE | 2022-12-23 11:28 | PM.DS ---
DS: Providers Provider Date of Service: 12/23/22 Date of admission: 12/20/22 22:27 Primary care physician: Ricardo Breen MD DS: Diagnosis Discharge Diagnosis (1) Encephalopathy, metabolic: Status: Acute (2) UTI (urinary tract infection): Status: Acute (3) Hypertension: Status: Acute DS: Summary Hospital Course Hospital Course: Admission note HPI This is a 77-year-old female with pertinent history of recurrent UTI, chronic suprapubic catheter, zuj-xviibpf-kzgjckkmc diabetes mellitus, history of CVA, mood disorder, sleep apnea on CPAP, essential hypertension, chronic opioid use presents to the emergency department with complaints of lethargy and altered mentation.? Patient initially presented on 12/17 and was sent home on Macrobid.? Cultures from 12/17 with Klebsiella resistant to Macrobid.? Patient presented again yesterday and was discharged on cefdinir.? Patient states that she did not get her cefdinir and came back to the ER again as found her confused.? Also complains of lethargy and generalized weakness.? Admits nausea and chills.? Patient denies fever, vomiting, abdominal pain, changes in bowel habits. Hospital course the patient was admitted for evaluation of encephalopathy believed to be a result of urine infection as the patient has chronic scherer. treated with IV Ceftriaxone as urine culture grew Klebsiella partialy resistant. mentation improved back to baseline as the patient was able to ambulate safely. to be discharged on Cefpodoxime for 3 more days with a plan to follow up with urology as outpatient to discuss the need of chronic antibiotics or different approach to treat her bladder disorder. Take Cefpodoxime with meals for the next [address] Hayes as outpatient for further eval and possible need of chronic suppressant antibiotics Time Spent with Patient Time attestation: Total time managing care of this patient today ____ minutes. Discharge coordination time: Greater than 30 minutes Quality: Safe Use of Opioids Does Pt have an Active Cancer Diagnosis on the Problem List?: No Quality: Stroke Does the patient have a stroke diagnosis?: No Physical Exam Vital Signs: Vital Signs: Last Vital Signs Temp 98.3 F 12/23/22 07:34 Pulse 18 L 12/23/22 07:34 Resp 18 12/23/22 07:34 BP 152/70 H 12/23/22 07:34 Pulse Ox 95 12/23/22 07:34 O2 Del Method Room Air 12/23/22 07:34 O2 Flow Rate 2 12/22/22 03:29 BMI result Body Mass Index 35.9 Const: Other: Constitutional : Awake, interactive, not in distress Neck : Normal inspection, Supple Cardiovascular : RRR, no JVP, no lower extremity edema Respiratory : good bilateral air entry, no crackles, wheezes or rhonchi Gastrointestinal: soft, lax, Normal bowel sounds, Non tender Skin : Warm, Dry, chronic scherer Neurological : Alert & oriented x3, No focal deficit , CN 2-12 within normal DS: Data Data Completed and Pending Completed studies during hospitalization [Text1]: Procedures Change Drainage Device in Bladder, External Approach (10/30/22) Insertion of Infusion Device into Right Basilic Vein, Percutaneous Approach (10/30/22) Labs on day of discharge: Laboratory Results - last 24 hr 12/22/22 12/22/22 12/23/22 16:23 20:21 07:36 POC Glucose 298 H 239 H 200 H 12/23/22 11:12 POC Glucose 242 H Preliminary micro results at discharge 12/20/22 22:18 Blood Culture - Preliminary Blood - Venous No growth after 48 hours. 12/20/22 22:18 Blood Culture - Preliminary Blood - Venous No growth after 48 hours. Imaging Chest x-ray: Radiologist's impression: ITS Impressions KUB X-Ray 12/21/22 03:10 IMPRESSION: * Moderate constipation. * No evidence of obstruction. Discharge Plan Discharge Anticipated Discharge Date/Time: 12/23/22 11:09 Patient Disposition: Home, Self-Care Discharge Diagnosis: Urine infection Referrals: Ricardo Breen MD [Primary Care Provider] - 1 Week Discharge Medications: New cefpodoxime 100 mg tablet 100 mg PO BID Qty: 6 0RF Rx Instructions: must administer with a meal/food Continued (DME) syringe with needle [BD Luer-Humphrey Syringe] 3 mL 22 x 1 1/2 syringe See Rx Instructions .ROUTE .MEDSUPPLY Qty: 20 0RF Rx Instructions: As directed famotidine 40 mg tablet 40 mg PO BEDTIME Qty: 90 1RF atorvastatin 80 mg tablet 80 mg PO QPM Qty: 90 3RF estradiol [Vagifem] 10 mcg tablet 10 mcg vaginal 2XW 90 Days Qty: 26 1RF ferrous sulfate [iron] 325 mg (65 mg iron) Tablet 325 mg PO DAILY Qty: 120 9RF furosemide 20 mg tablet 40 mg PO QAM PRN (Reason: Edema) lorazepam 0.5 mg tablet 1 tab PO Q8H PRN (Reason: anxiety) sennosides [senna] 8.6 mg tablet 17.2 mg PO BEDTIME PRN (Reason: Constipation) Imbruvica 420 mg Tablet 420 mg PO DAILY oxycodone 5 mg tablet 5 mg PO BID PRN (Reason: pain) spironolactone 25 mg tablet 25 mg PO DAILY duloxetine 60 mg capsule,delayed release(DR/EC) 60 mg PO DAILY citalopram 20 mg tablet 20 mg PO DAILY metformin 1,000 mg tablet 1,000 mg PO BID carvedilol 25 mg tablet 25 mg PO BID amlodipine 10 mg tablet 10 mg PO DAILY aspirin [Enteric Coated Aspirin] 81 mg tablet,delayed release (DR/EC) 81 mg PO DAILY Qty: 90 4RF pantoprazole 40 mg tablet,delayed release (DR/EC) 40 mg PO DAILY Qty: 90 4RF pregabalin 150 mg capsule 150 mg PO BID sulindac 150 mg tablet 150 mg PO BID (DME) Accu-Chek Guide test strips Strip See Rx Instructions .ROUTE DAILY Qty: 10 Rx Instructions: As directed ascorbic acid (vitamin C) 1,000 mg tablet 1,000 mg PO DAILY 90 Days Qty: 90 1RF Discontinued cefdinir 300 mg capsule 300 mg PO BID Qty: 14 0RF nitrofurantoin monohyd/m-cryst [Macrobid] 100 mg capsule 100 mg PO Q12H 7 Days Qty: 14 0RF Rx Instructions: must administer with a meal/food Discharge Orders: Discharge Order (Routine); Ordered 12/23/22 Ordered By: Leonardo Merritt Diet: Advance to usual diet Activity on Discharge: As tolerated Stand Alone Forms: Patient Portal Discharge page Care Plan Goals: Read below Health Concerns: Read below Plan of Treatment: Read below Assessment: You were admitted to the hospital for evaluation of altered mentation as a result of urine infection treated with IV antibiotics with good response. Take Cefpodoxime with meals for the next [address] Hayes as outpatient for further eval and possible need of chronic suppressant antibiotics
--- NOTE | 2022-12-27 08:46 | P.CDIM_ITS ---
PROVIDER RESPONSE TEXT: To clarify, the appropriate diagnosis supported by the clinical indicators: Yes, UTI is related to / associated with / due to suprapubic catheter QUERY TEXT: PHYSICIAN'S DOCUMENTATION REQUEST Date of Query: 12/26/2022 11:55 AM EDT Patient Name: Kaitlin Ortiz Admit Date: 12/21/2022 Dear Leonardo Merritt, A review of the medical record indicates additional documentation may be needed. Please review below and update the documentation accordingly. Documentation includes the conditions of UTI and chronic suprapubic catheter. Clinical Indicators: Per the Discharge Summary 12/23/22: the patient was admitted for evaluation of encephalopathy believed to be a result of urine infection as the patient has chronic scherer treated with IV Ceftriaxone urine culture grew Klebsiella resistant to Macrobid patient did not get her prescription filled for Cefdinir and returned to the ED with confusion Please clarify the relationship between these conditions: Yes, UTI is related to / associated with / due to suprapubic catheter No, UTI is not related to / associated with / due to suprapubic catheter Other (explain) Clinically unable to determine (explain) Thank you, Anitha Foster RN Use of terms such as suspected, likely, concern for, or probable (associated with a specific diagnosi s that is being evaluated, monitored, or treated as if it exists) are acceptable and can be coded in the inpatient se tting, when documented at the time of discharge. Please use your independent medical judgment in providing your response. THIS QUERY IS PART OF THE PERMANENT MEDICAL RECORD
== END 2022-12-23 13:42 | disposition home health service (06) | DRG 698 ==
LOC: HO.ED 21:21 → HO.EDOVER 22:34 → HO.S3 12-21 11:06
PROVIDERS: Hospitalist; Admitting Provider Student in an Organized Health Care Education/Training Program; Emergency Provider Internal Medicine; PCP Family Medicine; Visit Provider Student in an Organized Health Care Education/Training Program
DX: T83.518A Infection and inflammatory reaction due to other urinary catheter, initial encounter (principal); G93.41 Metabolic encephalopathy; N39.0 Urinary tract infection, site not specified; C91.10 Chronic lymphocytic leukemia of B-cell type not having achieved remission; D84.821 Immunodeficiency due to drugs; F05 Delirium due to known physiological condition; I10 Essential (primary) hypertension; E11.65 Type 2 diabetes mellitus with hyperglycemia; E78.00 Pure hypercholesterolemia, unspecified; F39 Unspecified mood [affective] disorder; D64.9 Anemia, unspecified; Y73.8 Miscellaneous gastroenterology and urology devices associated with adverse incidents, not elsewhere classified; E66.01 Morbid (severe) obesity due to excess calories; Z68.35 Body mass index [BMI] 35.0-35.9, adult; Z86.73 Personal history of transient ischemic attack (TIA), and cerebral infarction without residual deficits; Z87.440 Personal history of urinary (tract) infections; Z91.040 Latex allergy status; Z88.0 Allergy status to penicillin; Z88.1 Allergy status to other antibiotic agents; Z88.5 Allergy status to narcotic agent; Z88.6 Allergy status to analgesic agent; Z88.8 Allergy status to other drugs, medicaments and biological substances; Z79.82 Long term (current) use of aspirin; Z79.84 Long term (current) use of oral hypoglycemic drugs; Z79.899 Other long term (current) drug therapy
CPT/HCPCS: 36415; 74018; 74177; 80048; 80053; 81001; 82947; 83605; 85025; 87040; 87086; 87088; 87186; 96365; 96366; 96375; 99284; 99285; J0696; J1200; J1650; J2270; J2405; J2930; Q9967

== ENCOUNTER 2023-01-03 10:46 | Inpatient (IN) | payer MEDICARE, OTHER, SELFPAY ==
[2023-01-03] VITALS (9 sets, daily range): BP systolic 118–174; BP diastolic 53–76; PULSE 63–72; RESP 14–16; TEMP 36.8–37.2; O2SAT 92–98; BMI 32.5
--- NOTE | ~2023-01-03 | CT_ITS ---
EXAMINATION: CT HIP WITHOUT CONTRAST, LEFT CLINICAL INFORMATION: Left hip pain. COMPARISON: CT abdomen/pelvis dated 12/17/2022. TECHNIQUE: Contiguous axial CT images of the left hip were obtained without contrast. Sagittal and coronal reformats were provided and reviewed. This CT examination was performed using dose optimization techniques as appropriate, variously including the following: *Automated exposure control *Adjustment of mA and/or kV according to patient size (this includes techniques or standardized protocols for targeted exams where dose is matched to indication/reason for exam; i.e. extremities or head) *Use of iterative reconstruction technique DLP: 218 mGy-cm FINDINGS: Severe posterosuperior joint space narrowing with prominent bony remodeling and marginal osteophytes. There is subchondral cystic change and subchondral sclerosis within the acetabulum and femoral head. Cortical flattening/depression along the superior aspect of the femoral head measuring up to 3.3 cm in ML dimension, consistent with a minimally depressed subchondral fracture. Findings are likely related to the osteoarthritis. Underlying chronic avascular necrosis is thought less likely, however, cannot be entirely excluded. Moderate osteoarthritis at the symphysis pubis. No concerning lytic or blastic osseous lesion. Dystrophic calcification within the proximal left hamstring tendon, consistent with chronic tendinopathy. The remaining visualized muscles and tendons are grossly intact. Large left hip joint effusion. No abnormal soft tissue mass or fluid collection. Sigmoid diverticulosis without evidence of acute articular disease. Partially visualized suprapubic urinary bladder catheter. The visualized intrapelvic structures are otherwise unremarkable. CT/CT hip LT wo IV con IMPRESSION: 1. Severe left hip osteoarthritis with a minimally depressed subchondral fracture along the superior aspect of the femoral head. Findings are likely related to the osteoarthritis. Chronic avascular necrosis is thought less likely, however, cannot be entirely excluded. 2. Large left hip joint effusion. 3. Moderate osteoarthritis at the symphysis pubis. 4. Sigmoid diverticulosis without evidence of acute diverticulitis.
--- NOTE | ~2023-01-03 | XR_ITS ---
EXAMINATION: XR PELVIS CLINICAL INFORMATION: Left hip replacement COMPARISON: Previous CT of the left hip 01/03/2023 TECHNIQUE: AP view of the pelvis. FINDINGS: There is a new left hip replacement in satisfactory position. No fracture or dislocation. Atherosclerotic disease. Lateral skin prakash. Mild arthritis at the right hip joint. XR/XR pelvis 1-2V IMPRESSION: Satisfactory appearance of left hip replacement.
--- NOTE | ~2023-01-03 | CT_ITS ---
EXAMINATION: CT ABDOMEN AND PELVIS WITHOUT CONTRAST CLINICAL INFORMATION: Recurrent Urinary tract infection. Rule out fistula. COMPARISON: Previous CT of the abdomen and pelvis most recent December 2022 TECHNIQUE: Multidetector volumetric imaging was performed from the superior aspect of the liver through the pubic symphysis. Sagittal and coronal reformatted images were obtained on the technologist's workstation. This CT examination was performed using dose optimization techniques as appropriate, variously including the following: *Automated exposure control *Adjustment of mA and/or kV according to patient size (this includes techniques or standardized protocols for targeted exams where dose is matched to indication/reason for exam; i.e. extremities or head) *Use of iterative reconstruction technique DLP: 1142 mGy-cm FINDINGS: LUNG BASES: The visualized lung bases are unremarkable. LIVER, GALLBLADDER, AND BILIARY TREE: The liver is normal in size, shape, and attenuation. No focal hepatic lesion or biliary ductal dilatation is present. The gallbladder is unremarkable with no evidence of radiopaque gallstones, gallbladder wall thickening, or obvious pericholecystic inflammatory changes. PANCREAS: Unremarkable. SPLEEN: Low-attenuation splenic lesions seen with contrast not appreciated without contrast. ADRENAL GLANDS: Stable 2 cm left adrenal lesion. Normal right adrenal gland. KIDNEYS AND URETERS: There is dilatation of both renal pelvises. There is some mild calyceal dilatation seen bilaterally questionable for UPJ obstructions versus extrarenal pelvises. This is similar to previous exam. Stable probable calcified cyst exophytic to the lower pole the left kidney. No imaging follow-up recommended. BLADDER: Suprapubic tube in the bladder. Bladder is empty. No bladder wall thickening. This is a small amount of air in the bladder. This may be related to a suprapubic tube. GASTROINTESTINAL TRACT: Severe diverticulosis of the colon. Stool throughout the colon suggestive of constipation. Small and large bowel are otherwise normal. The appendix is normal. There is some stranding of the fat in the presacral space. No ascites. ABDOMINAL WALL: No significant hernia is appreciated. LYMPH NODES: Normal. VASCULAR: Severe atherosclerotic disease. No aneurysm. PELVIC VISCERA: Uterus not seen and has presumably been removed. No pelvic mass. OSSEOUS STRUCTURES: Postsurgical changes from left hip replacement. Severe arthritis of the right hip joint. Scoliosis and degenerative changes of the spine. CT/CT abdomen pelvis wo IV con IMPRESSION: Severe constipation and diverticulosis of the colon. No evidence of diverticulitis. Suprapubic tube in the bladder. No evidence of fistula seen. Other stable abdominal findings. Fleischner guidelines were followed.
--- NOTE | 2023-01-03 11:17 | ED_ITS ---
HPI - Extremity Injury (Lower) General Chief Complaint: Extremity Problem Stated Complaint: LLE PAIN,WEAKNESS PER EBR[place]GE RPT Time Seen by Provider: 01/03/23 10:51 Source: patient and RN notes reviewed Mode of arrival: EMS Limitations: no limitations History of Present Illness HPI Narrative: This is a 77-year-old female with a pertinent history of recurring UTI, chronic suprapubic catheter, noninsulin dependent diabetes mellitus, history of CVA, mood disorder, sleep apnea on CPAP, hypertension, and chronic opioid use, presents to the emergency department today, via EMS, with complaints of severe left-sided hip pain. Patient has known severe osteoarthritis in her left hip however reports over the last week the pain has increased significantly and she has been having difficulty with ambulation and weight bearing secondary to the pain. She reports that 3 weeks ago she tripped over her walker and fell onto her left hip. She came to the emergency department where she believe she had an x-ray. Upon chart review, patient was seen on December 17 after this fall and was diagnosed with a urinary tract infection, she had an abdomen CT scan at that time which showed severe degenerative changes of the left hip. She states that since this fall, she has been using a walker, but over this last week her husb and has been using a wheelchair to get her around the house as her pain is too significant. She has tried taking tramadol and oxycodone for her pain which has provided her with no relief. Denies any new falls since December 17, denies any other trauma or injury. She rates her current pain as a 15/10, worsening with movement and palpitation, states the pain is constant and radiates into left inner groin and down into her left foot. She believes that she had a bladder spasm last night, but does not believe that she has a UTI at this time. She denies any fevers, chills, nasal congestion, sore throat, chest pain, shortness of breath, palpitations, cough, abdominal pain, nausea, vomiting or di arrhea. complaint: hip injury Onset (ago): week(s) Injury: Left: hip Place: home Severity: severe Severity scale (1-10): >10 Relieving factors: nothing Exacerbating factors: weight bearing, movement and palpation Context: fall Associated symptoms: able to partially bear weight Other symptoms: none Related Data Home Medications Medication Instructions Recorded Confirmed citalopram 20 mg tablet 20 mg PO DAILY 07/21/20 01/03/23 duloxetine 60 mg capsule,delayed 60 mg PO DAILY 07/21/20 01/03/23 release spironolactone 25 mg tablet 25 mg PO DAILY 07/21/20 01/03/23 amlodipine 10 mg tablet 10 mg PO DAILY 03/23/21 01/03/23 metformin 1,000 mg tablet 1,000 mg PO BID 04/19/21 01/03/23 carvedilol 25 mg tablet 25 mg PO BID 05/31/21 01/03/23 blood sugar diagnostic (Accu-Chek #10 ea 09/04/22 12/04/22 Guide test strips) ibrutinib 420 mg tablet (Imbruvica) 420 mg PO DAILY 10/30/22 01/03/23 sennosides 8.6 mg tablet (senna) 17.2 mg PO BEDTIME PRN Constipation 10/30/22 01/03/23 coenzyme Q10 100 mg capsule 100 mg PO BEDTIME 01/03/23 01/03/23 (CoQ-10) magnesium 250 mg tablet 250 mg PO BEDTIME 01/03/23 01/03/23 methenamine hippurate 1 gram tablet 1 g PO BID 01/03/23 01/03/23 multivitamin 1 tab PO DAILY 01/03/23 01/03/23 phenazopyridine 100 mg tablet 100 mg PO BID 01/03/23 01/03/23 (Pyridium) pregabalin 150 mg capsule 150 mg PO BID 01/03/23 01/03/23 tramadol 50 mg tablet 50 mg PO BID PRN pain 01/03/23 01/03/23 Previous Rx's Medication Instructions Recorded aspirin 81 mg tablet,delayed 81 mg PO DAILY #90 tabs 07/10/21 release (Enteric Coated Aspirin) syringe with needle 3 mL 22 x 1 #20 ea 04/24/2209/10 (BD Luer-Humphrey Syringe) famotidine 40 mg tablet 40 mg PO BEDTIME #90 tabs 05/29/22 pantoprazole 40 mg tablet,delayed 40 mg PO DAILY #90 tabs 08/14/22 release atorvastatin 80 mg tablet 80 mg PO QPM #90 tabs 09/28/22 ferrous sulfate 325 mg (65 mg 325 mg PO DAILY #120 tabs 11/13/22 iron) tablet (iron) ascorbic acid (vitamin C) 1,000 mg 1,000 mg PO DAILY 90 days #90 tabs 12/06/22 tablet estradiol 10 mcg vaginal tablet 10 mcg vaginal 2XW 90 days #26 tabs 12/18/22 (Vagifem) Allergies Allergy/AdvReac Type Severity Reaction Status Date / Time amoxicillin [AMOXICILLIN] Allergy Severe stroke, Verified 12/17/22 10:12 blood clots ciprofloxacin [From CIPRO] Allergy Severe ANAPHYLAXIS Verified 12/17/22 10:12 Iodinated Contrast Media Allergy Severe HIVES Verified 12/17/22 10:12 [IV DYE, IODINE CONTAINING CONTRAST ] levofloxacin Allergy Severe Anaphylaxis Verified 12/17/22 10:12 liraglutide Allergy Severe Headache Verified 12/17/22 10:12 Penicillins Allergy Severe stroke, Verified 12/17/22 10:12 blood clots phenazopyridine [Pyridium] Allergy Severe Anaphylaxis Verified 12/17/22 10:12 FREYA Inhibitors Allergy Intermediate Cough Verified 12/17/22 10:12 ARB-Angiotensin Receptor Allergy Intermediate Cough Verified 12/17/22 10:12 Antagonist atorvastatin Allergy Intermediate Shortness Verified 12/17/22 10:12 of Breath cefpodoxime Allergy Intermediate Dizziness, Verified 12/17/22 10:12 nausea celecoxib [From CELEBREX] Allergy Intermediate HIVES Verified 12/17/22 10:12 doxazosin Allergy Intermediate Shortness Verified 12/17/22 10:12 of Breath fluticasone [Advair Diskus] Allergy Intermediate Anxiety Verified 12/17/22 10:12 gabapentin [From Neurontin] Allergy Intermediate Headache Verified 12/17/22 10:12 hydralazine Allergy Intermediate Shortness Verified 12/17/22 10:12 of Breath latex Allergy Intermediate Hives Verified 12/17/22 10:12 linezolid Allergy Intermediate Nausea and Verified 12/17/22 10:12 Vomiting meloxicam Allergy Intermediate Unknown Verified 12/17/22 10:12 salmeterol [Advair Diskus] Allergy Intermediate Anxiety Verified 12/17/22 10:12 Tetanus Vaccines and Toxoid Allergy Intermediate Swelling Verified 12/17/22 10:12 torsemide Allergy Intermediate Shortness Verified 12/17/22 10:12 of Breath cephalexin [Keflex] Allergy Mild Nausea Verified 12/17/22 10:12 Review of Systems Review of Systems: Constitutional: No Weight loss, No Fever, No Chills, No Night Sweats, No Fatigue, No Malaise ENT/Mouth: No Hearing loss, No Ear Pain, No Nasal Congestion, No Sinus Pain, No Hoarseness, No sore throat, No Rhinorrhea, No Swallowing Difficulty Eyes: No Eye Pain, No Swelling, No Redness, No Foreign Body, No Discharge, No Vision Changes Cardiovascular: No Chest Pain, No SOB, No Dyspnea on Exertion, No Orthopnea, No Edema, No Palpitations Respiratory: No Cough, No Sputum, No Wheezing, No Smoke Exposure, No Dyspnea Gastrointestinal: No Nausea, No Vomiting, No Diarrhea, No Constipation, No Abdominal pain, No Hematochezia, No Melena Genitourinary: No irregular bleeding, No Dysuria, No Urinary Frequency, No Hematuria, No Urinary Incontinence/retention, No Urgency, No Flank Pain, No Urin mariana Flow Changes, No Hesitancy Musculoskeletal: +left hip pain, No Myalgias, No Joint Swelling Skin: No Skin Lesions, No rash Neuro: No Weakness, No Numbness, No Paresthesias, No Loss of Consciousness, No Dizziness, No Headache Psych: No Anxiety/Panic, No Depression, No SI/HI/AH/VH, No Social Issues, Heme/Lymph: No Bruising, No Bleeding,No Lymphadenopathy Endocrine: No Polyuria, No Polydipsia, No Temperature Intolerance Yes all other systems are reviewed and are negative Constitutional: Constitutional: Reports as per HPI [facility] Past Medical History Medical History Allergy to multiple antibiotics Anemia Arthritis CLL (chronic lymphocytic leukemia) CLL (chronic lymphocytic leukemia) Depression Diabetes mellitus Diabetes with neurologic complications Fibromyalgia History of bilateral breast cancer History of blood transfusion History of CVA (cerebrovascular accident) History of numbness Hypercholesterolemia Hypertension Morbid obesity PONV (postoperative nausea and vomiting) Seasonal allergies Self-catheterizes urinary bladder Sleep apnea Type 2 diabetes mellitus with unspecified complications Urinary retention with incomplete bladder emptying Wears dentures Surgical History History of back surgery History of biopsy of bladder History of bladder repair surgery History of esophagogastroduodenoscopy (EGD) History of suprapubic catheter History of total hysterectomy Hx of colonoscopy S/P Botox injection S/P breast biopsy, right S/P left breast biopsy Family History Family History Mother Breast cancer Father Heart disease Father Lung cancer Mother Colon cancer Brother Pancreatic cancer Social History Social History Household Members: Spouse Housing: House Are you a primary child care group leader to a significant other at home: No Do you presently have visiting nurse or other home services: Yes Alcohol intake: never Patient Tobacco Use Status: Never used Tobacco Advance Directives Date on File: 04/11/22 service: No Current occupational status: retired Physical Exam Vital Signs: Vital Signs: Last Vital Signs Temp 99.2 F 01/05/23 07:36 Pulse 70 01/05/23 07:36 Resp 18 01/05/23 07:36 BP 157/70 H 01/05/23 07:36 Pulse Ox 91 L 01/05/23 07:36 O2 Del Method Room Air 01/05/23 07:36 BMI result Body Mass Index 32.5 Const: Other: Appears uncomfortable secondary to left hip pain, tearful, grimacing. General: cooperative Orientation/consciousness: patient oriented x3 Limitations: no limitations HEENT: Head: Yes normal to inspection, Yes normocephalic and Yes atraumatic Ears: hearing grossly normal bilaterally General nose exam: Normal external nose present Face and sinus: Yes normal facial exam Mouth: Normal oral and palatal mucosa present, oropharynx normal and moist mucous membranes Throat: Yes posterior oropharynx normal Eyes: General: appearance normal, both eyes and all related structures Eyelids: Yes eyelids normal Conjunctivae: conjunctivae normal Sclerae: sclerae normal Pupils: Equal, round and reactive pupils present EOM: EOMs intact bilaterally Neck: Neck: Yes normal visual inspection, Yes full ROM and Yes no lymphadenopa thy Lymphatic: no lymphadenopathy noted Chest: Chest palpation & inspection: normal inspection of the chest Resp: Effort & Inspection: normal respiratory effort and able to speak in complete sentences Auscultation: clear to auscultation bilaterally, no crackles, no rales, no rhonchi and no wheezes Cardio: Rate: regular rate Rhythm: regular rhythm Heart sounds: S1 normal heart sound present and S2 normal heart sound present GI: Other: Abdomen is soft, with diffuse tenderness throughout the entire abdomen without point tenderness. Normoactive bowel sounds. 6 cm healing ecchymosis noted to left upper abdomen, nontender. Inspection: Yes normal to inspection Palpation (GI): Soft to palpation and not rigid Auscultation: normal bowel sounds Back/Spine/Pelvis: Other: Patient is unable to fully extend left leg secondary to the pain. Patient has tenderness overlying her left posterior iliac crest and left lateral hip. No overlying erythema, edema, ecchymosis or increased warmth. No obvious bony deformity. Unable to test ROM of the hip secondary to pain. distal sensation and circulation in tact. Skin: General skin exam: no rashes or lesions noted Trauma: no lacerations or abrasions Wounds: no wounds Neuro: General: patient oriented x3 and moves all extremities Cranial nerves: Yes Equal, round and reactive pupils present Extrem: General: Yes normal to inspection Right upper extremity: normal to inspection Left upper extremity: normal to inspection Right lower extr emity: normal to inspection Left lower extremity: normal to inspection Course Reevaluation(s) Reevaluation #1: Patient re-evaluated for pain, still grimacing in pain, unable to fully assess left hip secondary to left hip pain. Dilaudid 1 mg IV ordered. Left hip CT sca n revealing Severe left hip osteoarthritis with a minimally depressed subchond ral fracture along the superior aspect of the femoral head. Findings are likely related to the osteoarthritis. Chronic avascular necrosis is thought less likely, however, cannot be entirely excluded. Large left hip joint effusion. Moderate osteoarthritis at the symphysis pubis. Sigmoid diverticulosis without evidence of acute diverticulitis. Case discussed with orthopedic PA, Poonam mendenhall, reported that this is an insufficiency type fracture weakening from the osteoarthritis and nothing acutely needs to be done at this point, just acute pain management, WBAT with walker, f/u outpatient. Time: 12:50 Reevaluation #2: Patient's pain reassessed, instill is in significant amount of pain, grimacing, unable to straighten left leg secondary to pain. Dilaudid 0.5 mg IV and Tylenol 1 g p.o. ordered. Urinalysis shows positive nitrite, large leuk esterase, >20 urine rbc's, >50 urine wbc's. Long discussion with patient, patient's urinary tract infection symptoms typically present with bladder spasms and confusion. Patient reports that she may have had a bladder spasm last night, but has not had any bladder spasms today and does not feel as though she has a urinary tract infection at this time. Because patient's complicated history with neurogenic bladder, suprapubic catheter, urosepsis, I reached out to Dr. Martinez. Dr. Frederick recommended not to treat if she has no urinary symptoms and likely is c olonized, recommended obtaining blood cultures to make sure. Blood cultures ordered. Time: 14:20 Reevaluation #3: Patient's pain still not manage despite multiple IV narcotic medications and Tylenol. I will leave that patient's current medical status the pain would be better managed inpatient. Patient's primary care physician Dr. Breen called. Spoke to patient's primary care physician, Dr. Breen, who strongly feels patient needs a hospital admission as she is a complicated patient with diabetes, urosepsis, and her left hip pain has been so significant she has been bed ridden for the last couple a days. I agree as patient would benefit from hospital admission, discussed with him recommendations from the orthopedist. Case discussed with Dr. Osorio and Dr. Rivera, who accept transfer of care to medicine. Time: 15:51 Consultations Consultation #1: Spoke to patient's primary care physician, Dr. Breen, who strongly feels patient needs a hospital admission as she is a complicated patient with diabetes, urosepsis, and her left hip pain has been so significant she has been bed ridden for the last couple a days. I agree as patient would benefit from hospital admission, discussed with him recommendations from the orthopedist. Time: 15:41 Consultation #2: Dr. Martinez - spoke to Infectious Disease regarding urinalysis Consultation #3: sukumar Harkins [place] Medications Administered Generic Name Dose Route Start Last Admin Trade Name Freq PRN Reason Stop Dose Admin Acetaminophen 650 mg 01/03/23 16:56 01/04/23 22:15 Acetaminophen 325 Mg Tablet PO 650 mg Q6H PRN Administration Pain, Mild (Pain Scale 1-3) Amlodipine Besylate 10 mg 01/04/23 09:00 01/05/23 07:57 Amlodipine Besylate 10 Mg Tablet PO 10 mg DAILY JORGE Administration Protocol Ascorbic Acid 1,000 mg 01/04/23 09:00 01/05/23 07:59 Ascorbic Acid 500 Mg Tablet PO 1,000 mg DAILY JORGE Administration Aspirin 81 mg 01/04/23 09:00 01/05/23 07:57 Aspirin Enteric Coated 81 Mg Tablet. PO 81 mg DAILY JORGE Administration Atorvastatin Calcium 80 mg 01/03/23 21:00 01/04/23 19:30 Atorvastatin Calcium 80 Mg Tablet PO 80 mg BEDTIME JORGE Administration Carvedilol 25 mg 01/03/23 21:00 01/05/23 07:58 Carvedilol 25 Mg Tablet PO 25 mg BID JORGE Administration Protocol Duloxetine HCl 60 mg 01/04/23 09:00 01/05/23 07:59 Duloxetine Hcl 60 Mg Capsule. PO 60 mg DAILY JORGE Administration Enoxaparin Sodium 40 mg 01/03/23 18:00 01/04/23 17:07 Enoxaparin Sodium 40 Mg/0.4 Ml Syringe SUBCUT 40 mg Q24H JORGE Administration Escitalopram Oxalate 10 mg 01/04/23 09:00 01/05/23 07:59 Escitalopram Oxalate 10 Mg Tablet PO 10 mg DAILY JORGE Administration Famotidine 40 mg 01/03/23 21:00 01/04/23 19:30 Famotidine 20 Mg Tablet PO 40 mg BEDTIME JORGE Administration Ferrous Sulfate 324 mg 01/04/23 09:00 01/05/23 07:59 Ferrous Sulfate 324 Mg Tablet. PO 324 mg DAILY JORGE Administration Insulin Human Lispro 0 unit 01/03/23 21:00 01/05/23 08:00 Insulin Lispro 100 Unit/Ml 3 Ml Vial SUBCUT 2 unit QIDACHS JORGE Administration Protocol Morphine Sulfate 4 mg 01/03/23 16:56 01/05/23 08:09 Morphine Sulfate 4 Mg/Ml Cartridge IVPUSH 4 mg Q4H PRN Administration Pain, Severe (Pain Scale 7-10) Protocol Multivitamins/Vitamin C 1 tab 01/04/23 09:00 01/05/23 07:59 Multivitamin Tablet PO 1 tab DAILY JORGE Administration Pt Own (Ibrutinib [ 420 mg 01/04/23 09:00 01/05/23 08:00 Imbruvica] 420 Mg PO 420 mg Tablet) DAILY JORGE Administration Omeprazole 20 mg 01/04/23 06:30 01/05/23 05:26 Omeprazole 20 Mg Capsule. PO 20 mg DAILY@0630 JORGE Administration Oxycodone HCl 5 mg 01/03/23 16:56 01/05/23 04:31 Oxycodone Hcl Immed Release 5 Mg Tablet PO 5 mg Q6H PRN Administration Pain, Moderate (Pain Scale 4-6 Phenazopyridine HCl 100 mg 01/03/23 21:00 01/05/23 07:58 Phenazopyridine Hcl 100 Mg Tablet PO 100 mg BID JORGE Administration Pregabalin 150 mg 01/03/23 21:00 01/05/23 07:57 Pregabalin 150 Mg Capsule PO 150 mg BID JORGE Administration Sodium Chloride 3 ml 01/04/23 00:00 01/05/23 08:00 0.9 % Sodium Chloride Flush 3 Ml Syringe IVFLUSH 3 ml QSHIFT JORGE Administration Spironolactone 25 mg 01/04/23 09:00 01/05/23 07:58 Spironolactone 25 Mg Tablet PO 25 mg DAILY JORGE Administration Protocol Discontinued Medications Generic Name Dose Route Start Last Admin Trade Name Freq PRN Reason Stop Dose Admin Acetaminophen 975 mg 01/03/23 14:11 01/03/23 14:22 Acetaminophen 325 Mg Tablet PO 01/03/23 14:12 975 mg ONCE ONE Administration Hydromorphone HCl 1 mg 01/03/23 12:46 01/03/23 13:37 Hydromorphone Hcl 1 Mg/Ml Syringe IVPUSH 01/03/23 12:47 1 mg ONCE ONE Administration Protocol Hydromorphone HCl 0.5 mg 01/03/23 14:11 01/03/23 14:22 Hydromorphone Hcl 0.5 Mg/0.5 Ml Syringe IVPUSH 01/03/23 14:12 0.5 mg ONCE ONE Administration Protocol Sodium Chloride 1,000 mls @ 999 mls/hr 01/03/23 11:13 01/03/23 13:41 Ns IVCONT 01/03/23 12:13 Infused .Q1H1M ONE Infusion Morphine Sulfate 4 mg 01/03/23 11:12 01/03/23 12:02 Morphine Sulfate 4 Mg/Ml Cartridge IVPUSH 01/03/23 11:13 4 mg ONCE ONE Administration Protocol Olanzapine 10 mg 01/05/23 05:14 01/05/23 05:25 Olanzapine 10 Mg Vial IM 01/05/23 05:15 10 mg STAT STA Administration Medical Decision Making Medical Decision Making MDM Narrative: This is a 77-year-old female with a pertinent history of recurring UTI, chronic suprapubic catheter, non insulin dependent diabetes mellitus, history of CVA, mood disorder, sleep apnea on CPAP, hypertension, and chronic opioid use, presenting today via EMS, with complaints of severe left sided hip pain. On examination, patient is tearful, grimacing in pain. Unable to extend legs secondary to left sided hip pain. Unable to assess TTP secondary to pain on arrival, will medicate patient to get better examination and ROM. Patient is afebrile, all VSS. Abdomen is soft, but patient has tenderness throughout her abdomen; hx of frequent UTIs, will obtain UA for further evaluation. Plan: Left hip CT, labs, morphine 4mg IV, 1L IV fluids ordered. Differential Diagnosis Differential Diagnoses: The differential diagnosis associated with the presentation includes Left hip fracture, left hip osteoarthritis, urinary tract infection Admission/Observation Consideration of admission/observation: Escalation of care including admission/observation considered Consult Healthcare Provider Management of the patient was discussed with: Hospitalist, Manager Party (Dr Martinez, Poonam Negro, [facility] PA; Dr Breen (PCP)) and Primary Care Provider Lab Data [facility] Lab Attestation statement: I reviewed the patient's lab results. 01/03/23 11:39 01/03/23 11:39 Labs: Lab Results 01/03/23 01/03/23 01/03/23 Range/Units 11:39 11:39 11:39 WBC 10.3 (4.8-10.8) X10*3/uL RBC 3.75 L (4.20-5.50) X10*6/uL Hgb 10.1 L (12.0-16.0) g/dl Hct 31.7 L (37.0-47.0) % MCV 84.5 (80.0-98.0) fL MCH 26.9 L (27.0-33.0) pg MCHC 31.9 (31.0-35.0) g/dl RDW 14.6 (11.0-16.0) % Plt Count 222 D (160-400) X10*3/uL MPV 10.4 (9.4-12.3) fL Immature Gran % (Auto) 0.8 H (0.0-0.4) % Neut % (Auto) 72.3 (45-73) % Lymph % (Auto) 18.2 L (20-40) % Lares % (Auto) 7.6 (2-11) % Eos % (Auto) 0.6 (0-4) % Baso % (Auto) 0.5 (0-2) % Lymph # (Auto) 1.9 (1.2-4.9) X10*3/uL Lares # (Auto) 0.8 (0.1-1.2) X10*3/uL Eos # (Auto) 0.1 (0.0-0.4) X10*3/uL Baso # (Auto) 0.1 (0.0-0.2) X10*3/uL Abs Immat Gran (auto) 0.08 H (0.00-0.03) X10*3/uL Absolute Neuts (auto) 7.5 (2.0-8.3) x10*3/uL Absolute Nucleated RBC 0.000 (0.0-0.012) X10*3/uL Nucleated RBC % (auto) 0.0 (0.0-0.2) /100WBC PT 13.5 H (10.0-13.1) SEC INR 1.2 H (0.9-1.1) APTT 30.9 (26.0-36.4) SEC Sodium 133 L (135-145) mmol/L Potassium 3.9 (3.3-5.1) mmol/L Chloride 94 L (96-108) mmol/L Carbon Dioxide 31 H (22-29) mmol/L Anion Gap 12 (12-20) BUN 14 (9-16) mg/dL Creatinine 0.97 (0.5-1.4) mg/dL Estim Creat Clear Calc 52.4 Estimated GFR 56 Random Glucose 175 H (60-115) mg/dL Lactic Acid (0.5-2.0) mmol/L Calcium 9.2 (8.4-10.2) mg/dL Magnesium 1.9 (1.6-2.6) mg/dL Total Bilirubin 1.1 H (0.0-1.0) mg/dL Direct Bilirubin 0.4 (0.0-0.5) mg/dL AST 11 (5-31) U/L ALT 8 (0-31) U/L Alkaline Phosphatase 72 (39-117) U/L Total Protein 5.4 L (6.5-8.0) g/dL Albumin 3.4 L (3.5-5.0) g/dL Lipase 57 (8-78) U/L Urine Color Urine Appearance Urine pH (5.0-9.0) Ur Specific [place] (1.005-1.025) Urine Protein (Neg-Trace) mg/dL Urine Glucose (UA) (Negative) mg/dL Urine Ketones (Negative) mg/dL Urine Blood (Negative) Urine Nitrite (Negative) Ur Leukocyte Esterase (Negative) Urine RBC (0-2) /HPF Urine WBC (0-5) /HPF Ur Squamous Epith Cells (0-2) /HPF Urine Bacteria (None Seen) Hyaline Casts (0-2) /LPF 01/03/23 01/03/23 Range/Units 11:55 14:34 WBC (4.8-10.8) X10*3/uL RBC (4.20-5.50) X10*6/uL Hgb (12.0-16.0) g/dl Hct (37.0-47.0) % MCV (80.0-98.0) fL MCH (27.0-33.0) pg MCHC (31.0-35.0) g/dl RDW (11.0-16.0) % Plt Count (160-400) X10*3/uL MPV (9.4-12.3) fL Immature Gran % (Auto) (0.0-0.4) % Neut % (Auto) (45-73) % Lymph % (Auto) (20-40) % Lares % (Auto) (2-11) % Eos % (Auto) (0-4) % Baso % (Auto) (0-2) % Lymph # (Auto) (1.2-4.9) X10*3/uL Lares # (Auto) (0.1-1.2) X10*3/uL Eos # (Auto) (0.0-0.4) X10*3/uL Baso # (Auto) (0.0-0.2) X10*3/uL Abs Immat Gran (auto) (0.00-0.03) X10*3/uL Absolute Neuts (auto) (2.0-8.3) x10*3/uL Absolute Nucleated RBC (0.0-0.012) X10*3/uL Nucleated RBC % (auto) (0.0-0.2) /100WBC PT (10.0-13.1) SEC INR (0.9-1.1) APTT (26.0-36.4) SEC Sodium (135-145) mmol/L Potassium (3.3-5.1) mmol/L Chloride (96-108) mmol/L Carbon Dioxide (22-29) mmol/L Anion Gap (12-20) BUN (9-16) mg/dL Creatinine (0.5-1.4) mg/dL Estim Creat Clear Calc Estimated GFR Random Glucose (60-115) mg/dL Lactic Acid 0.6 (0.5-2.0) mmol/L Calcium (8.4-10.2) mg/dL Magnesium (1.6-2.6) mg/dL Total Bilirubin (0.0-1.0) mg/dL Direct Bilirubin (0.0-0.5) mg/dL AST (5-31) U/L ALT (0-31) U/L Alkaline Phosphatase (39-117) U/L Total Protein (6.5-8.0) g/dL Albumin (3.5-5.0) g/dL Lipase (8-78) U/L Urine Color Yellow Urine Appearance Hazy Urine pH 7.0 (5.0-9.0) Ur Specific [place] 1.010 (1.005-1.025) Urine Protein Trace (Neg-Trace) mg/dL Urine Glucose (UA) Negative (Negative) mg/dL Urine Ketones Negative (Negative) mg/dL Urine Blood Trace (Negative) Urine Nitrite Positive H (Negative) Ur Leukocyte Esterase Large (3+) H (Negative) Urine RBC >20 H (0-2) /HPF Urine WBC >50 H (0-5) /HPF Ur Squamous Epith Cells 0-2 (0-2) /HPF Urine Bacteria 1+ (None Seen) Hyaline Casts 0-2 (0-2) /LPF Radiology Impression Discussion of test interpretation with radiology: I have reviewed the radiologist's reading. Radiologist Impression: CLINICAL INFORMATION: Left hip pain.? COMPARISON: CT abdomen/pelvis dated 12/17/2022.? TECHNIQUE: Contiguous axial CT images of the left hip were obtained without contrast. Sagittal and coronal reformats were provided and reviewed. This CT examination was performed using dose optimization techniques as appropriate, variously including the following: *Automated exposure control *Adjustment of mA and/or kV according to patient size (this includes techniques or standardized protocols for targeted exams where dose is matched to indication/reason for exam; i.e. extremities or head) *Use of iterative reconstruction technique DLP: 218 mGy-cm FINDINGS: Severe posterosuperior joint space narrowing with prominent bony remodeling and marginal osteophytes. There is subchondral cystic change and subchondral sclerosis within the acetabulum and femoral head. Cortical flattening/depression along the superior aspect of the femoral head measuring up to 3.3 cm in ML dimension, consistent with a minimally depressed subchondral fracture. Findings are likely related to the osteoarthritis. Underlying chronic avascular necrosis is thought less likely, however, cannot be entirely excluded. Moderate osteoarthritis at the symphysis pubis. No concerning lytic or blastic osseous lesion. Dystrophic calcification within the proximal left hamstring tendon, consistent with chronic tendinopathy. The remaining visualized muscles and tendons are grossly intact. Large left hip joint effusion. No abnormal soft tissue mass or fluid collection. Sigmoid diverticulosis without evidence of acute articular disease. Partially visualized suprapubic urinary bladder catheter. The visualized intrapelvic structures are otherwise unremarkable.? CT/CT hip LT wo IV con IMPRESSION: 1. Severe left hip osteoarthritis with a minimally depressed subchondral fracture along the superior aspect of the femoral head. Findings are likely related to the osteoarthritis. Chronic avascular necrosis is thought less likely, however, cannot be entirely excluded. ? 2. Large left hip joint effusion. ? 3. Moderate osteoarthritis at the symphysis pubis. ? 4. Sigmoid diverticulosis without evidence of acute diverticulitis. ? Dictated By: Lc Damian MD Independent Historian Clinical information obtained from an independent historian. History obtained from or confirmed by: Spouse External Record Review External record reviewed: Inpatient record, Office record, Outpatient record, Prior outpatient labs, Prior outpatient radiology, Primary care record and Outside ED record Prescription Management I considered prescription management with: Pain Medication Chronic Conditions Patient?s care impacted by: Diabetes Critical Care Time Critical Care Time Critical Care Time: Yes Total Critical Care Time: 60 Attestation: I have personally provided critical care time exclusive of time spent on separately billable procedures. Time includes review of lab data, radiology results, discussion with consultants, and monitoring for potential decompensation. Intervention performed as documented. Multiple IV narcotics, thorough chart review, spoke with PCP, spoke with ID, and orthopedics. Discharge Plan Discharge Clinical Impression: Intractable pain, Osteoarthritis, Subchondral insufficiency fracture of condyle of right femur with delayed healing Patient Disposition: Admitted As Inpatient Interventions: Admission Worksheet (ED) Last Done: 01/04/23 11:53 Discharge Date/Time: 01/04/23 12:01
[2023-01-03 11:46] LABS: MANUAL DIFF FLAG NO
[2023-01-03 11:54] LABS: Basophils Absolute Auto 0.1 X10*3/uL (0.0-0.2); Basophils Percent Auto 0.5 % (0-2); Eosinophils Absolute Auto 0.1 X10*3/uL (0.0-0.4); Eosinophils Percent Auto 0.6 % (0-4); Hematocrit 31.7 % (37.0-47.0); Hemoglobin 10.1 g/dl (12.0-16.0); INTERNATIONAL NORM RATIO 1.2 (0.9-1.1); Imm Gran Abs Auto 0.08 X10*3/uL (0.00-0.03); Imm Gran Pct Auto 0.8 % (0.0-0.4); Lymphocytes Absolute Auto 1.9 X10*3/uL (1.2-4.9); Lymphocytes Percent Auto 18.2 % (20-40); Mean Corpuscular HGB Conc 31.9 g/dl (31.0-35.0); Mean Corpuscular Hemoglobin 26.9 pg (27.0-33.0); Mean Corpuscular Volume 84.5 fL (80.0-98.0); Mean Platelet Volume 10.4 fL (9.4-12.3); Monocytes Absolute Auto 0.8 X10*3/uL (0.1-1.2); Monocytes Percent Auto 7.6 % (2-11); Neutrophils Absolute Auto 7.5 x10*3/uL (2.0-8.3); Neutrophils Percent Auto 72.3 % (45-73); Platelet Count 222 X10*3/uL (160-400); Prothrombin Time 13.5 SEC (10.0-13.1); Red Blood Count 3.75 X10*6/uL (4.20-5.50); Red Cell Distribution Width 14.6 % (11.0-16.0); White Blood Count 10.3 X10*3/uL (4.8-10.8)
[2023-01-03 11:57] LABS: Partial Thromboplastin Time 30.9 SEC (26.0-36.4)
[2023-01-03] MEDS: Morphine Sulfate 4 MG/ML CARTRIDGE IVPUSH ×2 (12:02→22:09)
[2023-01-03 12:05] LABS: Appearance Urine Hazy; Color Urine Yellow; Glucose Urine UA Negative (Negative); Leukocyte Esterase Urine Large (3+) (Negative); Nitrite Urine Positive (Negative); UMIC TRIGGER UACC YES; Urine Blood Trace (Negative); Urine Ketones Negative (Negative); Urine Protein Trace mg/dL (Neg-Trace)
[2023-01-03 12:07] LABS: Alanine Aminotransferase 8 U/L (0-31); Albumin Level 3.4 g/dL (3.5-5.0); Alkaline Phosphatase 72 U/L (39-117); Anion Gap 12 (12-20); Aspartate Amino Transferase 11 U/L (5-31); Bilirubin Direct 0.4 mg/dL (0.0-0.5); Bilirubin Total 1.1 mg/dL (0.0-1.0); Blood Urea Nitrogen 14 mg/dL (9-16); Calcium 9.2 mg/dL (8.4-10.2); Carbon Dioxide 31 mmol/L (22-29); Chloride 94 mmol/L (96-108); Creatinine Clr Calc Pharmacy 52.4; Estimated Glomerular Filt Rate 56; Glucose Random 175 mg/dL (60-115); Lipase 57 U/L (8-78); Magnesium 1.9 mg/dL (1.6-2.6); Potassium 3.9 mmol/L (3.3-5.1); Sodium 133 mmol/L (135-145); Total Protein 5.4 g/dL (6.5-8.0)
[2023-01-03] MEDS: 0.9 % Sodium Chloride 1,000 ML 999 ML IVCONT (12:07)
[2023-01-03 12:13] LABS: Bacteria Urine 1+ (None Seen); Hyaline Casts Urine 0-2 /LPF (0-2); RBC Urine >20 /HPF (0-2); Squamous Epithelial Cell Urine 0-2 /HPF (0-2); UACC Culture Trigger YES; WBC Urine >50 /HPF (0-5)
--- NOTE | 2023-01-03 12:35 | PHA.MEDREC ---
Pharmacy Consult ? Medication Reconciliation Pharmacy has completed the medication reconciliation. USED LIST FROM PATIENT
[2023-01-03] MEDS: HYDROmorphone HCl 1 MG/ML SYRINGE IVPUSH (13:37)
[2023-01-03] MEDS: Acetaminophen 325 MG TABLET 975 MG PO (14:22)
[2023-01-03] MEDS: HYDROmorphone HCl 0.5 MG/0.5 ML SYRINGE IVPUSH (14:22)
[2023-01-03 14:50] LABS: Lactic Acid 0.6 mmol/L (0.5-2.0)
--- NOTE | 2023-01-03 16:18 | P.HPHOSP_ITS ---
History of Present Illness Date of Service: 01/03/23 [facility] Medical History Allergy to multiple antibiotics Anemia Arthritis CLL (chronic lymphocytic leukemia) CLL (chronic lymphocytic leukemia) Depression Diabetes mellitus Diabetes with neurologic complications Fibromyalgia History of bilateral breast cancer History of blood transfusion History of CVA (cerebrovascular accident) History of numbness Hypercholesterolemia Hypertension Morbid obesity PONV (postoperative nausea and vomiting) Seasonal allergies Self-catheterizes urinary bladder Sleep apnea Type 2 diabetes mellitus with unspecified complications Urinary retention with incomplete bladder emptying Wears dentures Family History Mother Breast cancer Father Heart disease Father Lung cancer Mother Colon cancer Brother Pancreatic cancer Surgical History History of back surgery History of biopsy of bladder History of bladder repair surgery History of esophagogastroduodenoscopy (EGD) History of suprapubic catheter History of total hysterectomy Hx of colonoscopy S/P Botox injection S/P breast biopsy, right S/P left breast biopsy Social History Household Members: Spouse Housing: House Are you a primary healthcare consulting manager to a significant other at home: No Do you presently have visiting nurse or other home services: Yes Alcohol intake: never Patient Tobacco Use Status: Never used Tobacco Smoked in Last 30 Days: No Use of substances other than those prescribed or required for medical reasons: No Advance Directives: Yes Advance Directives on File: Yes Advance Directives Date on File: 04/11/22 service: No Current occupational status: retired Meds Allergies Allergy/AdvReac Type Severity Reaction Status Date / Time amoxicillin [AMOXICILLIN] Allergy Severe stroke, Verified 12/17/22 10:12 blood clots ciprofloxacin [From CIPRO] Allergy Severe ANAPHYLAXIS Verified 12/17/22 10:12 Iodinated Contrast Media Allergy Severe HIVES Verified 12/17/22 10:12 [IV DYE, IODINE CONTAINING CONTRAST ] levofloxacin Allergy Severe Anaphylaxis Verified 12/17/22 10:12 liraglutide Allergy Severe Headache Verified 12/17/22 10:12 Penicillins Allergy Severe stroke, Verified 12/17/22 10:12 blood clots phenazopyridine [Pyridium] Allergy Severe Anaphylaxis Verified 12/17/22 10:12 FREYA Inhibitors Allergy Intermediate Cough Verified 12/17/22 10:12 ARB-Angiotensin Receptor Allergy Intermediate Cough Verified 12/17/22 10:12 Antagonist atorvastatin Allergy Intermediate Shortness Verified 12/17/22 10:12 of Breath cefpodoxime Allergy Intermediate Dizziness, Verified 12/17/22 10:12 nausea celecoxib [From CELEBREX] Allergy Intermediate HIVES Verified 12/17/22 10:12 doxazosin Allergy Intermediate Shortness Verified 12/17/22 10:12 of Breath fluticasone [Advair Diskus] Allergy Intermediate Anxiety Verified 12/17/22 10:12 gabapentin [From Neurontin] Allergy Intermediate Headache Verified 12/17/22 10:12 hydralazine Allergy Intermediate Shortness Verified 12/17/22 10:12 of Breath latex Allergy Intermediate Hives Verified 12/17/22 10:12 linezolid Allergy Intermediate Nausea and Verified 12/17/22 10:12 Vomiting meloxicam Allergy Intermediate Unknown Verified 12/17/22 10:12 salmeterol [Advair Diskus] Allergy Intermediate Anxiety Verified 12/17/22 10:12 Tetanus Vaccines and Toxoid Allergy Intermediate Swelling Verified 12/17/22 10:12 torsemide Allergy Intermediate Shortness Verified 12/17/22 10:12 of Breath cephalexin [Keflex] Allergy Mild Nausea Verified 12/17/22 10:12 Active Medications: Current Medications Pharmacy Consult (Consult Rx Perform Med Rec) 1 each MISCELLANE ONCE PRN PRN Reason: Consult order Home Medications Medication Instructions Recorded Confirmed Last Taken Type citalopram 20 mg tablet 20 mg PO DAILY 07/21/20 01/03/23 04/16/22 History duloxetine 60 mg capsule,delayed 60 mg PO DAILY 07/21/20 01/03/23 04/16/22 History release spironolactone 25 mg tablet 25 mg PO DAILY 07/21/20 01/03/23 Unknown History amlodipine 10 mg tablet 10 mg PO DAILY 03/23/21 01/03/23 04/16/22 History metformin 1,000 mg tablet 1,000 mg PO BID 04/19/21 01/03/23 Unknown History carvedilol 25 mg tablet 25 mg PO BID 05/31/21 01/03/23 04/16/22 History blood sugar diagnostic (Accu-Chek #10 ea 09/04/22 12/04/22 Unknown History Guide test strips) ibrutinib 420 mg tablet (Imbruvica) 420 mg PO DAILY 10/30/22 01/03/23 Unknown History sennosides 8.6 mg tablet (senna) 17.2 mg PO BEDTIME PRN Constipation 10/30/22 01/03/23 Unknown History coenzyme Q10 100 mg capsule 100 mg PO BEDTIME 01/03/23 01/03/23 Unknown History (CoQ-10) magnesium 250 mg tablet 250 mg PO BEDTIME 01/03/23 01/03/23 Unknown History methenamine hippurate 1 gram tablet 1 g PO BID 01/03/23 01/03/23 Unknown History multivitamin 1 tab PO DAILY 01/03/23 01/03/23 Unknown History phenazopyridine 100 mg tablet 100 mg PO BID 01/03/23 01/03/23 Unknown History (Pyridium) pregabalin 150 mg capsule 150 mg PO BID 01/03/23 01/03/23 Unknown History tramadol 50 mg tablet 50 mg PO BID PRN pain 01/03/23 01/03/23 Unknown History Physical Exam Vital Signs and Narrative: Vital Signs: Last Vital Signs Temp 99.0 F 01/03/23 13:45 Pulse 67 01/03/23 14:57 Resp 16 01/03/23 14:22 BP 131/56 L 01/03/23 14:57 Pulse Ox 92 01/03/23 14:57 O2 Del Method Room Air 01/03/23 13:45 BMI result Body Mass Index 32.5 Results Labs 01/03/23 11:39 01/03/23 11:39 Labs: Laboratory Results - last 24 hr 01/03/23 01/03/23 01/03/23 11:39 11:39 11:39 MCV 84.5 MCH 26.9 L MCHC 31.9 RDW 14.6 Plt Count 222 D MPV 10.4 Immature Gran % (Auto) 0.8 H Neut % (Auto) 72.3 Lymph % (Auto) 18.2 L [place] % (Auto) 7.6 Eos % (Auto) 0.6 Baso % (Auto) 0.5 Lymph # (Auto) 1.9 [place] # (Auto) 0.8 Eos # (Auto) 0.1 Baso # (Auto) 0.1 Abs Immat Gran (auto) 0.08 H Absolute Neuts (auto) 7.5 Absolute Nucleated RBC 0.000 Nucleated RBC % (auto) 0.0 PT 13.5 H INR 1.2 H APTT 30.9 Anion Gap 12 Estim Creat Clear Calc 52.4 Estimated GFR 56 Random Glucose 175 H Lactic Acid Calcium 9.2 Magnesium 1.9 Total Bilirubin 1.1 H Direct Bilirubin 0.4 AST 11 ALT 8 Alkaline Phosphatase 72 Total Protein 5.4 L Albumin 3.4 L Lipase 57 Urine Color Urine Appearance Urine pH Ur Specific [place] Urine Protein Urine Glucose (UA) Urine Ketones Urine Blood Urine Nitrite Ur Leukocyte Esterase Urine RBC Urine WBC Ur Squamous Epith Cells Urine Bacteria Hyaline Casts 01/03/23 01/03/23 11:55 14:34 MCV MCH MCHC RDW Plt Count MPV Immature Gran % (Auto) Neut % (Auto) Lymph % (Auto) [place] % (Auto) Eos % (Auto) Baso % (Auto) Lymph # (Auto) [place] # (Auto) Eos # (Auto) Baso # (Auto) Abs Immat Gran (auto) Absolute Neuts (auto) Absolute Nucleated RBC Nucleated RBC % (auto) PT INR APTT Anion Gap Estim Creat Clear Calc Estimated GFR Random Glucose Lactic Acid 0.6 Calcium Magnesium Total Bilirubin Direct Bilirubin AST ALT Alkaline Phosphatase Total Protein Albumin Lipase Urine Color Yellow Urine Appearance Hazy Urine pH 7.0 Ur Specific [place] 1.010 Urine Protein Trace Urine Glucose (UA) Negative Urine Ketones Negative Urine Blood Trace Urine Nitrite Positive H Ur Leukocyte Esterase Large (3+) H Urine RBC >20 H Urine WBC >50 H Ur Squamous Epith Cells 0-2 Urine Bacteria 1+ Hyaline Casts 0-2 Imaging Radiologist's Impressions: Impressions Hip CT 01/03/23 11:54 IMPRESSION: 1. Severe left hip osteoarthritis with a minimally depressed subchondral fracture along the superior aspect of the femoral head. Findings are likely related to the osteoarthritis. Chronic avascular necrosis is thought less likely, however, cannot be entirely excluded. 2. Large left hip joint effusion. 3. Moderate osteoarthritis at the symphysis pubis. 4. Sigmoid diverticulosis without evidence of acute diverticulitis. Assessment and Plan Plan 77-year-old female with multiple past medical history as well as multiple allergies to many antibiotics presents to the hospital with confusion, increased lethargy found to have acute UTI failed outpatient therapy Sepsis UTI/ gram positive enterococcus? likely related to UTI from chronic suprapubic catheter, last changed in August blood cultures-enterococcus - repeat blood culture -/ blood culture from11/02/22 -grew enterococcus again, BCX 11/05 negative at 49 ?soniya parapsilosis,Achromobacter xylosoxidans-10,000 to 50,000 cfu/mL--probably contamination TTE:no vegetations, hold [place] unless recent cultures still positive Continue Dapto, ID recommends 3 weeks? Daptom starting november 07 and ending november 27, requesting a midline today Dapto is very costly $1185 and may not be able to afford it, discussing alternative with ID ?diabetes with hyperglycemia, better continue insulin, restarted Metformin 11/07 ?hypertension continue home? antihypertensives morbid obesity:? Encouraged to lose weight. Thrombocytopenia: Seems chronic. not due to sepsis. ?DVT prophylaxis:? scd due to Thrombocytopenia. Pt evalwill need home pt on discharge. ?inpatient need: sepsis/ uti /bacteremia-needs iv antibiotics therapy, blood culture persistently positive Enterococcus,need to have clear blood cultures before further dispo planning Time Spent With Patient Time: Total time managing care of this patient today ____ minutes. Quality Stroke Does the patient have a stroke diagnosis?: No VTE Prior VTE?: No VTE Risk Level:: Medical - moderate - high VTE Device Contraindication: Treatment Not Indicated VTE Drug Contraindication: N/A - Med Ordered
--- NOTE | 2023-01-03 17:52 | P.HPHOSP_ITS ---
History of Present Illness Date of Service: 01/03/23 Attending physician on admission: Gildardo Rivera Chief Complaint: hip pain 77-year-old female with pertinent history of recurrent UTI, chronic suprapubic catheter, [id number] diabetes mellitus, history of CVA, mood disorder, sleep apnea on CPAP, essential hypertension, chronic opioid use?presented to the ED for evaluation of severe left hip pain ongoing for 3 weeks. Patient has known severe osteoarthritis in her left hip however reports over the last week the pain has increased significantly and she has been having difficulty with ambulation and weight bearing secondary to the pain. ? She reports that 3 weeks ago she tripped over her walker and fell onto her left hip.? She came to the emergency department where she believe she had an x-ray.? Upon chart review, patient was seen on December 17 after this fall and was d iagnosed with a urinary tract infection, she had an abdomen CT scan at that time which showed severe degenerative changes of the left hip. She states that since this fall, she has been using a walker, but over this last week her has been using a wheelchair to get her around the house as her pain is too significant. She has tried taking tramadol and oxycodone for her pain which has provided her with no relief. Denies any new falls since December 17, denies any other trauma or injury. She rates her current pain as a 15/10, worsening with movement and palpitation, states the pain is constant and radiates into left inner groin and down into her left foot. She believes that she had a bladder spasm last night, but does not believe that she has a UTI at this time. On arrival VSS. Hematology studies baseline. Renal function baseline. Sodium 133, potassium 3.9, chloride 94, CO2 to 31. Urinalysis with 3+ leukocytes, positive nitrites, positive urinary sediment, 1+ bacteria. Left hip CT showing severe left hip osteoarthritis with a minimally depressed subchondral fracture along the superior aspect of the femoral head likely related to the osteoarthritis. Chronic avascular necrosis is less likely though cannot be entirely excluded. There is also a large left hip joint effusion. ED provider spoke with PCP who feels strongly patient should be admitted given complicated picture and recurrent urosepsis, and severe hip pain. ED provider did discuss UA with Dr. Martinez who feels patient is likely colonized and given abscence of symptoms is not recommending treatment at this time though is recommending blood cultures which were collected. ED also discussed case with ortho who does not feel this is a surgical case. Review of Systems Review of Systems: General: No fevers, malaise, unintentional weight loss HEENT: No blurred vision, diplopia. No sore throat, nasal congestion, rhinorrhea, sinus pain, ear pain Cardiovascular: No chest pain, palpitations, or leg edema Respiratory: No shortness of breath, wheezing, cough GI: No abdominal pain, nausea, vomiting, diarrhea, constipation, melena, hematochezia : No dysuria, hematuria, increased urinary frequency, decreased urinary output MSK: No myalgia, back pain. +left hip pain Neuro: No headaches, weakness, paresthesias Skin: No rashes or lesions PMFSH Medical History Allergy to multiple antibiotics Anemia Arthritis CLL (chronic lymphocytic leukemia) CLL (chronic lymphocytic leukemia) Depression Diabetes mellitus Diabetes with neurologic complications Fibromyalgia History of bilateral breast cancer History of blood transfusion History of CVA (cerebrovascular accident) History of numbness Hypercholesterolemia Hypertension Morbid obesity PONV (postoperative nausea and vomiting) Seasonal allergies Self-catheterizes urinary bladder Sleep apnea Type 2 diabetes mellitus with unspecified complications Urinary retention with incomplete bladder emptying Wears dentures Family History Mother Breast cancer Father Heart disease Father Lung cancer Mother Colon cancer Brother Pancreatic cancer Surgical History History of back surgery History of biopsy of bladder History of bladder repair surgery History of esophagogastroduodenoscopy (EGD) History of suprapubic catheter History of total hysterectomy Hx of colonoscopy S/P Botox injection S/P breast biopsy, right S/P left breast biopsy Social History Household Members: Spouse Housing: House Are you a primary healthcare account manager to a significant other at home: No Do you presently have visiting nurse or other home services: Yes Alcohol intake: never Patient Tobacco Use Status: Never used Tobacco Smoked in Last 30 Days: No Use of substances other than those prescribed or required for medical reasons: No Advance Directives: Yes Advance Directives on File: Yes Advance Directives Date on File: 04/11/22 service: No Current occupational status: retired Meds Allergies Allergy/AdvReac Type Severity Reaction Status Date / Time amoxicillin [AMOXICILLIN] Allergy Severe stroke, Verified 12/17/22 10:12 blood clots ciprofloxacin [From CIPRO] Allergy Severe ANAPHYLAXIS Verified 12/17/22 10:12 Iodinated Contrast Media Allergy Severe HIVES Verified 12/17/22 10:12 [IV DYE, IODINE CONTAINING CONTRAST ] levofloxacin Allergy Severe Anaphylaxis Verified 12/17/22 10:12 liraglutide Allergy Severe Headache Verified 12/17/22 10:12 Penicillins Allergy Severe stroke, Verified 12/17/22 10:12 blood clots phenazopyridine [Pyridium] Allergy Severe Anaphylaxis Verified 12/17/22 10:12 FREYA Inhibitors Allergy Intermediate Cough Verified 12/17/22 10:12 ARB-Angiotensin Receptor Allergy Intermediate Cough Verified 12/17/22 10:12 Antagonist atorvastatin Allergy Intermediate Shortness Verified 12/17/22 10:12 of Breath cefpodoxime Allergy Intermediate Dizziness, Verified 12/17/22 10:12 nausea celecoxib [From CELEBREX] Allergy Intermediate HIVES Verified 12/17/22 10:12 doxazosin Allergy Intermediate Shortness Verified 12/17/22 10:12 of Breath fluticasone [Advair Diskus] Allergy Intermediate Anxiety Verified 12/17/22 10:12 gabapentin [From Neurontin] Allergy Intermediate Headache Verified 12/17/22 10:12 hydralazine Allergy Intermediate Shortness Verified 12/17/22 10:12 of Breath latex Allergy Intermediate Hives Verified 12/17/22 10:12 linezolid Allergy Intermediate Nausea and Verified 12/17/22 10:12 Vomiting meloxicam Allergy Intermediate Unknown Verified 12/17/22 10:12 salmeterol [Advair Diskus] Allergy Intermediate Anxiety Verified 12/17/22 10:12 Tetanus Vaccines and Toxoid Allergy Intermediate Swelling Verified 12/17/22 10:12 torsemide Allergy Intermediate Shortness Verified 12/17/22 10:12 of Breath cephalexin [Keflex] Allergy Mild Nausea Verified 12/17/22 10:12 Active Medications: Current Medications Acetaminophen (Acetaminophen 325 Mg Tablet) 650 mg PO Q6H PRN PRN Reason: Pain, Mild (Pain Scale 1-3) Docusate Sodium (Docusate Sodium 100 Mg Capsule) 100 mg PO DAILY PRN PRN Reason: Constipation Enoxaparin Sodium (Enoxaparin Sodium 40 Mg/0.4 Ml Syringe) 40 mg SUBCUT Q24H [facility] Morphine Sulfate (Morphine Sulfate 4 Mg/Ml Cartridge) 4 mg IVPUSH Q4H PRN; Protocol PRN Reason: Pain, Severe (Pain Scale 7-10) Ondansetron HCl (Ondansetron Hcl 4 Mg/2 Ml Vial) 4 mg IVPUSH Q8H PRN PRN Reason: Nausea and Vomiting Oxycodone HCl (Oxycodone Hcl Immed Release 5 Mg Tablet) 5 mg PO Q6H PRN PRN Reason: Pain, Moderate (Pain Scale 4-6 Pharmacy Consult (Consult Rx Perform Med Rec) 1 each MISCELLANE ONCE PRN PRN Reason: Consult order Sodium Chloride (0.9 % Sodium Chloride Flush 3 Ml Syringe) 3 ml IVFLUSH QSHIFT [facility] Home Medications Medication Instructions Recorded Confirmed Last Taken Type citalopram 20 mg tablet 20 mg PO DAILY 07/21/20 01/03/23 04/16/22 History duloxetine 60 mg capsule,delayed 60 mg PO DAILY 07/21/20 01/03/23 04/16/22 History release spironolactone 25 mg tablet 25 mg PO DAILY 07/21/20 01/03/23 Unknown History amlodipine 10 mg tablet 10 mg PO DAILY 03/23/21 01/03/23 04/16/22 History metformin 1,000 mg tablet 1,000 mg PO BID 04/19/21 01/03/23 Unknown History carvedilol 25 mg tablet 25 mg PO BID 05/31/21 01/03/23 04/16/22 History blood sugar diagnostic (Accu-Chek #10 ea 09/04/22 12/04/22 Unknown History Guide test strips) ibrutinib 420 mg tablet (Imbruvica) 420 mg PO DAILY 10/30/22 01/03/23 Unknown History sennosides 8.6 mg tablet (senna) 17.2 mg PO BEDTIME PRN Constipation 10/30/22 01/03/23 Unknown History coenzyme Q10 100 mg capsule 100 mg PO BEDTIME 01/03/23 01/03/23 Unknown History (CoQ-10) magnesium 250 mg tablet 250 mg PO BEDTIME 01/03/23 01/03/23 Unknown History methenamine hippurate 1 gram tablet 1 g PO BID 01/03/23 01/03/23 Unknown History multivitamin 1 tab PO DAILY 01/03/23 01/03/23 Unknown History phenazopyridine 100 mg tablet 100 mg PO BID 01/03/23 01/03/23 Unknown History (Pyridium) pregabalin 150 mg capsule 150 mg PO BID 01/03/23 01/03/23 Unknown History tramadol 50 mg tablet 50 mg PO BID PRN pain 01/03/23 01/03/23 Unknown History Physical Exam Vital Signs and Narrative: Vital Signs: Last Vital Signs Temp 99.0 F 01/03/23 13:45 Pulse 67 01/03/23 14:57 Resp 16 01/03/23 14:22 BP 131/56 L 01/03/23 14:57 Pulse Ox 92 01/03/23 14:57 O2 Del Method Room Air 01/03/23 13:45 BMI result Body Mass Index 32.5 Constitutional - Awake and Alert, No apparent distress Eyes - PERRLA, EOMI Cardiovascular - S1S2, RRR, No edema Respiratory - Normal lung expansion, Normal respiratory effort, No respiratory distress, CTA bilaterally Gastrointestinal - NT / ND; +BS; No rebound or guarding : suprapubic catheter in place Extremities - no calf tenderness bilaterally, no swelling Musculoskeletal - external rotation and guarding of the left hip with flexion at the knee Skin - Warm/Dry Neurological - Alert & oriented x3 Psychological - Appropriate affect Results Labs 01/03/23 11:39 01/03/23 11:39 Labs: Laboratory Results - last 24 hr 01/03/23 01/03/23 01/03/23 11:39 11:39 11:39 MCV 84.5 MCH 26.9 L MCHC 31.9 RDW 14.6 Plt Count 222 D MPV 10.4 Immature Gran % (Auto) 0.8 H Neut % (Auto) 72.3 Lymph % (Auto) 18.2 L [place] % (Auto) 7.6 Eos % (Auto) 0.6 Baso % (Auto) 0.5 Lymph # (Auto) 1.9 [place] # (Auto) 0.8 Eos # (Auto) 0.1 Baso # (Auto) 0.1 Abs Immat Gran (auto) 0.08 H Absolute Neuts (auto) 7.5 Absolute Nucleated RBC 0.000 Nucleated RBC % (auto) 0.0 PT 13.5 H INR 1.2 H APTT 30.9 Anion Gap 12 Estim Creat Clear Calc 52.4 Estimated GFR 56 Random Glucose 175 H Lactic Acid Calcium 9.2 Magnesium 1.9 Total Bilirubin 1.1 H Direct Bilirubin 0.4 AST 11 ALT 8 Alkaline Phosphatase 72 Total Protein 5.4 L Albumin 3.4 L Lipase 57 Urine Color Urine Appearance Urine pH Ur Specific [place] Urine Protein Urine Glucose (UA) Urine Ketones Urine Blood Urine Nitrite Ur Leukocyte Esterase Urine RBC Urine WBC Ur Squamous Epith Cells Urine Bacteria Hyaline Casts 01/03/23 01/03/23 11:55 14:34 MCV MCH MCHC RDW Plt Count MPV Immature Gran % (Auto) Neut % (Auto) Lymph % (Auto) [place] % (Auto) Eos % (Auto) Baso % (Auto) Lymph # (Auto) [place] # (Auto) Eos # (Auto) Baso # (Auto) Abs Immat Gran (auto) Absolute Neuts (auto) Absolute Nucleated RBC Nucleated RBC % (auto) PT INR APTT Anion Gap Estim Creat Clear Calc Estimated GFR Random Glucose Lactic Acid 0.6 Calcium Magnesium Total Bilirubin Direct Bilirubin AST ALT Alkaline Phosphatase Total Protein Albumin Lipase Urine Color Yellow Urine Appearance Hazy Urine pH 7.0 Ur Specific [place] 1.010 Urine Protein Trace Urine Glucose (UA) Negative Urine Ketones Negative Urine Blood Trace Urine Nitrite Positive H Ur Leukocyte Esterase Large (3+) H Urine RBC >20 H Urine WBC >50 H Ur Squamous Epith Cells 0-2 Urine Bacteria 1+ Hyaline Casts 0-2 Imaging Radiologist's Impressions: Impressions Hip CT 01/03/23 11:54 IMPRESSION: 1. Severe left hip osteoarthritis with a minimally depressed subchondral fracture along the superior aspect of the femoral head. Findings are likely related to the osteoarthritis. Chronic avascular necrosis is thought less likely, however, cannot be entirely excluded. 2. Large left hip joint effusion. 3. Moderate osteoarthritis at the symphysis pubis. 4. Sigmoid diverticulosis without evidence of acute diverticulitis. Assessment and Plan (1) Intractable pain: Status: Acute (2) Subchondral insufficiency fracture of condyle of right femur with delayed healing: Status: Acute Plan 77-year-old female with pertinent history of recurrent UTI, chronic suprapubic catheter, [id number] diabetes mellitus, history of CVA, mood disorder , sleep apnea on CPAP, essential hypertension, chronic opioid use. #Subchondral Insufficiency fracture left hip -Likely related to osteoarthritis -Pain management with pain scale -Appreciate ortho input -PT eval #Left hip effusion -appreciate ortho input #Recurrent UTI/neurogenic bladder -Positive UA. Seen by ID who feels patient likely with consolidation. Not recommending treatment at this time. Cultures pending -Per PCP, recommending urology eval. Consult placed -Suprapubic catheter in place -continue home meds # [id number] type 2 diabetes -POC glucose -diabetic diet -Humalog on sliding scale -hold metformin # hypertension- BP reasonably controlled -continue home meds # mood disorder -continue home meds # GERD -continue home meds DVT prophylaxis-Lovenox Full code Time Spent With Patient Time: Total time managing care of this patient today ____ minutes. Quality Stroke Does the patient have a stroke diagnosis?: No VTE Prior VTE?: No VTE Risk Level:: Medical - moderate - high VTE Device Contraindication: Treatment Not Indicated VTE Drug Contraindication: N/A - Med Ordered
--- NOTE | 2023-01-03 18:03 | PC.NURSE ---
assumed care of patient at this time. moved into hospital bed and repositioned. suprapubic cath draining bright orange urine-currently on pyridium. able to make needs known. call [facility] within reach
--- NOTE | 2023-01-03 18:29 | HE.PHANOTE ---
Patient has a document allergy Pyridum that is anaphlaxis and atrovastatin that is SOB. Dve Morrison clarify if patient takes at home and if she has allergy. Patient reports that she is current taking Pyridium at home. Patient also has orange pee which is caused by Pyridium. Patient also reported that she does not have an allergy to atorvastatin.
[2023-01-03] MEDS: Enoxaparin Sodium 40 MG/0.4 ML SYRINGE SUBCUT (18:30)
[2023-01-03] MEDS: oxyCODONE HCl Immed Release 5 MG TABLET PO (18:30)
--- NOTE | 2023-01-03 20:00 | MHC.EDTECH ---
THIS PCT ASSUMED CARE OF PT AT 1915 ,PT WAS GIVEN DINNER ,ATE 100 % ,AFTER DINNER PT WAS CHANGE INTO HOSPITAL ATTIRE ,THEN PT TRIED CALLING HER ,BUT DID NOT GET TRUE ,1999 ,ROUNDING AND VITALS SIGN DONE ,BLOOD SUGAR TAKEN 237 ,RN YOANA AWARE ,FRESH PITCHER WATER GIVEN ,TISSUE BOX AND SMALL GARBAGE BAG .
[2023-01-03 20:33] LABS: Glucose, Whole Blood 237 mg/dL (60-115)
[2023-01-03] MEDS: Atorvastatin Calcium 80 MG TABLET PO (20:33)
[2023-01-03] MEDS: carvediloL 25 MG TABLET PO (20:33)
[2023-01-03] MEDS: Famotidine 20 MG TABLET 40 MG PO (20:34)
[2023-01-03] MEDS: Insulin Lispro 100 UNIT/ML 3 ML VIAL SUBCUT (20:34)
[2023-01-03] MEDS: Phenazopyridine HCL 100 MG TABLET PO (21:32)
[2023-01-03] MEDS: Pregabalin 150 MG CAPSULE PO (21:32)
--- NOTE | 2023-01-03 21:48 | PC.NURSE ---
this RN entered pts room to give nighttime medications, found patient tearful. This RN spoke with patient who stated she is worried about her since he has not come to visit. she would like this RN to give pts a call. This RN administered nighttime medications, pt stated that her pain is unbearable at this time. otherwise, pt is resting on bed, respirations equal and unlabored, skin pwd. Continue plan of care for admission and bed assignement
--- NOTE | 2023-01-04 00:30 | PC.NURSE ---
pt sleeping at this time, respirations equal and unlabored, skin pwd, no apparent distress. Continue plan of care to admit to med-surg
--- NOTE | 2023-01-04 03:13 | PC.NURSE ---
pt sleeping at this time, respirations even and unlabored, skin pwd, no apparent distress. continue plan of care for admission
[2023-01-04] MEDS: Morphine Sulfate 4 MG/ML CARTRIDGE IVPUSH ×3 (04:14→23:55)
--- NOTE | 2023-01-04 04:17 | PC.NURSE ---
pt woke up and started yelling for this RN, this RN came to bedside and pt stated she was in an excruciating amount of pain. This RN administered morphine PRN per the MAR
[2023-01-04 04:57] VITALS: BP 132/60; PULSE 68; RESP 20; TEMP 37.3; O2SAT 94
[2023-01-04] MEDS: oxyCODONE HCl Immed Release 5 MG TABLET PO ×3 (05:04→19:31)
[2023-01-04] MEDS: Omeprazole 20 MG CAPSULE.DR PO (05:04)
[2023-01-04 05:41] LABS: MANUAL DIFF FLAG NO
[2023-01-04 05:42] LABS: Basophils Absolute Auto 0.1 X10*3/uL (0.0-0.2); Basophils Percent Auto 0.5 % (0-2); Eosinophils Percent Auto 0.4 % (0-4); Hematocrit 29.4 % (37.0-47.0); Hemoglobin 9.5 g/dl (12.0-16.0); Imm Gran Abs Auto 0.06 X10*3/uL (0.00-0.03); Imm Gran Pct Auto 0.6 % (0.0-0.4); Lymphocytes Absolute Auto 2.1 X10*3/uL (1.2-4.9); Lymphocytes Percent Auto 21.2 % (20-40); Mean Corpuscular HGB Conc 32.3 g/dl (31.0-35.0); Mean Corpuscular Hemoglobin 27.1 pg (27.0-33.0); Mean Platelet Volume 10.9 fL (9.4-12.3); Monocytes Percent Auto 9.5 % (2-11); Neutrophils Absolute Auto 6.8 x10*3/uL (2.0-8.3); Neutrophils Percent Auto 67.8 % (45-73); Platelet Count 214 X10*3/uL (160-400); Red Cell Distribution Width 14.8 % (11.0-16.0)
[2023-01-04 05:56] LABS: Anion Gap 14 (12-20); Blood Urea Nitrogen 11 mg/dL (9-16); Calcium 8.9 mg/dL (8.4-10.2); Carbon Dioxide 27 mmol/L (22-29); Chloride 96 mmol/L (96-108); Creatinine Clr Calc Pharmacy 55.8; Estimated Glomerular Filt Rate > 60; Glucose Random 180 mg/dL (60-115); Potassium 3.8 mmol/L (3.3-5.1); Sodium 133 mmol/L (135-145)
--- NOTE | 2023-01-04 06:42 | PC.NURSE ---
patient has fallen asleep at this time, respirations even and unlabored, skin pwd, no apparent distress. continue plan of care to admit to [place] [facility]
[2023-01-04 07:44] LABS: Glucose, Whole Blood 188 mg/dL (60-115)
[2023-01-04] MEDS: Insulin Lispro 100 UNIT/ML 3 ML VIAL SUBCUT ×4 (07:56→20:34)
[2023-01-04] MEDS: Spironolactone 25 MG TABLET PO (07:57)
[2023-01-04] MEDS: carvediloL 25 MG TABLET PO ×2 (07:57→19:35)
[2023-01-04] MEDS: Pregabalin 150 MG CAPSULE PO ×2 (07:57→19:29)
[2023-01-04] MEDS: Aspirin Enteric Coated 81 MG TABLET.DR PO (07:58)
[2023-01-04] MEDS: Ascorbic Acid 500 MG TABLET 1000 MG PO (07:58)
[2023-01-04] MEDS: Ferrous Sulfate 324 MG TABLET.DR PO (07:59)
[2023-01-04] MEDS: Escitalopram Oxalate 10 MG TABLET PO (08:00)
[2023-01-04] MEDS: Multivitamin TABLET 1 TAB PO (08:00)
[2023-01-04] MEDS: amLODIPine Besylate 10 MG TABLET PO (08:01)
--- NOTE | 2023-01-04 08:20 | PM.CNOR ---
History of Present Illness HPI Consult date: 01/04/23 Chief complaint: hip pain Narrative: This is a 77-year-old female with a pertinent history of recurring UTI, chronic suprapubic catheter, noninsulin dependent diabetes mellitus, history of CVA, mood disorder, sleep apnea on CPAP, hypertension, and chronic opioid use, presents to the emergency department today, via EMS, with complaints of severe left-sided hip pain.? Patient has known severe osteoarthritis in her left hip and was recommended ANGELICA in [facility] when she last saw Dr. Rueda. Last week the pain has increased significantly and she has been having difficulty with ambulation and weight bearing secondary to the pain.? She reports that 3 weeks ago she tripped over her walker and fell onto her left hip. CT of her hip was obtained in the ED and revealed, ?severe left hip osteoarthritis with a minimally depressed subchondral fracture along the superior aspect of the femoral head. Findings are likely related to the osteoarthritis.?Orthopedics was consulted for further evaluation and treatment. Review of Systems Review of Systems: Yes all other systems are reviewed and are negative PMFSH Past Medical History Medical History Allergy to multiple antibiotics Anemia Arthritis CLL (chronic lymphocytic leukemia) CLL (chronic lymphocytic leukemia) Depression Diabetes mellitus Diabetes with neurologic complications Fibromyalgia History of bilateral breast cancer History of blood transfusion History of CVA (cerebrovascular accident) History of numbness Hypercholesterolemia Hypertension Morbid obesity PONV (postoperative nausea and vomiting) Seasonal allergies Self-catheterizes urinary bladder Sleep apnea Type 2 diabetes mellitus with unspecified complications Urinary retention with incomplete bladder emptying Wears dentures Family History Family History Mother Breast cancer Father Heart disease Father Lung cancer Mother Colon cancer Brother Pancreatic cancer Surgical History Surgical History History of back surgery History of biopsy of bladder History of bladder repair surgery History of esophagogastroduodenoscopy (EGD) History of suprapubic catheter History of total hysterectomy Hx of colonoscopy S/P Botox injection S/P breast biopsy, right S/P left breast biopsy Social History Social History Household Members: Spouse Housing: House Are you a primary home care administrator to a significant other at home: No Do you presently have visiting nurse or other home services: Yes Alcohol intake: never Patient Tobacco Use Status: Never used Tobacco Smoked in Last 30 Days: No Use of substances other than those prescribed or required for medical reasons: No Advance Directives: Yes Advance Directives on File: Yes Advance Directives Date on File: 04/11/22 Nutrition Risks: No Nutritional Risk service: No Current occupational status: retired Meds Allergies Allergy/AdvReac Type Severity Reaction Status Date / Time amoxicillin [AMOXICILLIN] Allergy Severe stroke, Verified 12/17/22 10:12 blood clots ciprofloxacin [From CIPRO] Allergy Severe ANAPHYLAXIS Verified 12/17/22 10:12 Iodinated Contrast Media Allergy Severe HIVES Verified 12/17/22 10:12 [IV DYE, IODINE CONTAINING CONTRAST ] levofloxacin Allergy Severe Anaphylaxis Verified 12/17/22 10:12 liraglutide Allergy Severe Headache Verified 12/17/22 10:12 Penicillins Allergy Severe stroke, Verified 12/17/22 10:12 blood clots phenazopyridine [Pyridium] Allergy Severe Anaphylaxis Verified 12/17/22 10:12 FREYA Inhibitors Allergy Intermediate Cough Verified 12/17/22 10:12 ARB-Angiotensin Receptor Allergy Intermediate Cough Verified 12/17/22 10:12 Antagonist atorvastatin Allergy Intermediate Shortness Verified 12/17/22 10:12 of Breath cefpodoxime Allergy Intermediate Dizziness, Verified 12/17/22 10:12 nausea celecoxib [From CELEBREX] Allergy Intermediate HIVES Verified 12/17/22 10:12 doxazosin Allergy Intermediate Shortness Verified 12/17/22 10:12 of Breath fluticasone [Advair Diskus] Allergy Intermediate Anxiety Verified 12/17/22 10:12 gabapentin [From Neurontin] Allergy Intermediate Headache Verified 12/17/22 10:12 hydralazine Allergy Intermediate Shortness Verified 12/17/22 10:12 of Breath latex Allergy Intermediate Hives Verified 12/17/22 10:12 linezolid Allergy Intermediate Nausea and Verified 12/17/22 10:12 Vomiting meloxicam Allergy Intermediate Unknown Verified 12/17/22 10:12 salmeterol [Advair Diskus] Allergy Intermediate Anxiety Verified 12/17/22 10:12 Tetanus Vaccines and Toxoid Allergy Intermediate Swelling Verified 12/17/22 10:12 torsemide Allergy Intermediate Shortness Verified 12/17/22 10:12 of Breath cephalexin [Keflex] Allergy Mild Nausea Verified 12/17/22 10:12 Active Medications: Current Medications Acetaminophen (Acetaminophen 325 Mg Tablet) 650 mg PO Q6H PRN PRN Reason: Pain, Mild (Pain Scale 1-3) Amlodipine Besylate (Amlodipine Besylate 10 Mg Tablet) 10 mg PO DAILY [facility]; Protocol Last Admin: 01/04/23 08:01 Dose: 10 mg Ascorbic Acid (Ascorbic Acid 500 Mg Tablet) 1,000 mg PO DAILY [facility] Last Admin: 01/04/23 07:58 Dose: 1,000 mg Aspirin (Aspirin Enteric Coated 81 Mg Tablet.) 81 mg PO DAILY [facility] Last Admin: 01/04/23 07:58 Dose: 81 mg Atorvastatin Calcium (Atorvastatin Calcium 80 Mg Tablet) 80 mg PO BEDTIME [facility] Last Admin: 01/03/23 20:33 Dose: 80 mg Carvedilol (Carvedilol 25 Mg Tablet) 25 mg PO BID [facility]; Protocol Last Admin: 01/04/23 07:57 Dose: 25 mg Docusate Sodium (Docusate Sodium 100 Mg Capsule) 100 mg PO DAILY PRN PRN Reason: Constipation Duloxetine HCl (Duloxetine Hcl 60 Mg Capsule.) 60 mg PO DAILY [facility] Enoxaparin Sodium (Enoxaparin Sodium 40 Mg/0.4 Ml Syringe) 40 mg SUBCUT Q24H [facility] Last Admin: 01/03/23 18:30 Dose: 40 mg Escitalopram Oxalate (Escitalopram Oxalate 10 Mg Tablet) 10 mg PO DAILY [facility] Last Admin: 01/04/23 08:00 Dose: 10 mg Famotidine (Famotidine 20 Mg Tablet) 40 mg PO BEDTIME [facility] Last Admin: 01/03/23 20:34 Dose: 40 mg Ferrous Sulfate (Ferrous Sulfate 324 Mg Tablet.) 324 mg PO DAILY [facility] Last Admin: 01/04/23 07:59 Dose: 324 mg Glucose (Glucose Gel 15 Gm Gel..Gram.) 15 gm PO Q15M PRN; Protocol PRN Reason: per Hypoglycemia Standing Ord. Dextrose (D10) 250 mls @ 750 mls/hr IV Q15M PRN; Protocol PRN Reason: per Hypoglycemia Standing Ord. Insulin Human Lispro (Insulin Lispro 100 Unit/Ml 3 Ml Vial) 0 unit SUBCUT QIDACHS [facility]; Protocol Last Admin: 01/04/23 07:56 Dose: 2 unit Morphine Sulfate (Morphine Sulfate 4 Mg/Ml Cartridge) 4 mg IVPUSH Q4H PRN; Protocol PRN Reason: Pain, Severe (Pain Scale 7-10) Last Admin: 01/04/23 04:14 Dose: 4 mg Multivitamins/Vitamin C (Multivitamin Tablet) 1 tab PO DAILY [facility] Last Admin: 01/04/23 08:00 Dose: 1 tab Non-Formulary Medication (Ibrutinib [Imbruvica]) 420 mg PO DAILY [facility] Non-Formulary Medication (Methenamine Hippurate) 1 gm PO BID [facility] Omeprazole (Omeprazole 20 Mg Capsule.Dr) 20 mg PO DAILY@0630 [facility] Last Admin: 01/04/23 05:04 Dose: 20 mg Ondansetron HCl (Ondansetron Hcl 4 Mg/2 Ml Vial) 4 mg IVPUSH Q8H PRN PRN Reason: Nausea and Vomiting Oxycodone HCl (Oxycodone Hcl Immed Release 5 Mg Tablet) 5 mg PO Q6H PRN PRN Reason: Pain, Moderate (Pain Scale 4-6 Last Admin: 01/04/23 05:04 Dose: 5 mg Pharmacy Consult (Consult Rx Perform Med Rec) 1 each MISCELLANE ONCE PRN PRN Reason: Consult order Phenazopyridine HCl (Phenazopyridine Hcl 100 Mg Tablet) 100 mg PO BID [facility] Last Admin: 01/03/23 21:32 Dose: 100 mg Pregabalin (Pregabalin 150 Mg Capsule) 150 mg PO BID [facility] Last Admin: 01/04/23 07:57 Dose: 150 mg Senna (Sennosides 8.6 Mg Tablet) 17.2 mg PO BEDTIME PRN PRN Reason: Constipation Sodium Chloride (0.9 % Sodium Chloride Flush 3 Ml Syringe) 3 ml IVFLUSH QSHIFT [facility] Last Admin: 01/04/23 02:45 Dose: Not Given Spironolactone (Spironolactone 25 Mg Tablet) 25 mg PO DAILY [facility]; Protocol Last Admin: 01/04/23 07:57 Dose: 25 mg Home Medications Medication Instructions Recorded Confirmed Last Taken Type citalopram 20 mg tablet 20 mg PO DAILY 07/21/20 01/03/23 04/16/22 History duloxetine 60 mg capsule,delayed 60 mg PO DAILY 07/21/20 01/03/23 04/16/22 History release spironolactone 25 mg tablet 25 mg PO DAILY 07/21/20 01/03/23 Unknown History amlodipine 10 mg tablet 10 mg PO DAILY 03/23/21 01/03/23 04/16/22 History metformin 1,000 mg tablet 1,000 mg PO BID 04/19/21 01/03/23 Unknown History carvedilol 25 mg tablet 25 mg PO BID 05/31/21 01/03/23 04/16/22 History blood sugar diagnostic (Accu-Chek #10 ea 09/04/22 12/04/22 Unknown History Guide test strips) ibrutinib 420 mg tablet (Imbruvica) 420 mg PO DAILY 10/30/22 01/03/23 Unknown History sennosides 8.6 mg tablet (senna) 17.2 mg PO BEDTIME PRN Constipation 10/30/22 01/03/23 Unknown History coenzyme Q10 100 mg capsule 100 mg PO BEDTIME 01/03/23 01/03/23 Unknown History (CoQ-10) magnesium 250 mg tablet 250 mg PO BEDTIME 01/03/23 01/03/23 Unknown History methenamine hippurate 1 gram tablet 1 g PO BID 01/03/23 01/03/23 Unknown History multivitamin 1 tab PO DAILY 01/03/23 01/03/23 Unknown History phenazopyridine 100 mg tablet 100 mg PO BID 01/03/23 01/03/23 Unknown History (Pyridium) pregabalin 150 mg capsule 150 mg PO BID 01/03/23 01/03/23 Unknown History tramadol 50 mg tablet 50 mg PO BID PRN pain 01/03/23 01/03/23 Unknown History Physical Exam Vital Signs: Vital Signs: Last Vital Signs Temp 99.2 F 01/04/23 04:57 Pulse 68 01/04/23 04:57 Resp 20 01/04/23 04:57 BP 132/60 01/04/23 04:57 Pulse Ox 94 01/04/23 04:57 O2 Del Method Room Air 01/04/23 04:57 BMI result Body Mass Index 32.5 Const: General: cooperative, healthy appearing and no acute distress Resp: Effort & Inspection: normal respiratory effort and able to speak in complete sentences Cardio: Rate: regular rate Peripheral pulses: Peripheral pulses 2+ throughout GI: Palpation (GI): Soft to palpation Skin: Lesions: no lesions Rashes: no rashes Extrem: Other: Left hip groin pain with ROM. NVI. Results Labs 01/04/23 05:28 01/04/23 05:28 Labs: Abnormal lab results 01/03/23 01/03/23 01/03/23 Range/Units 11:39 11:39 11:39 RBC 3.75 L (4.20-5.50) X10*6/uL Hgb 10.1 L (12.0-16.0) g/dl Hct 31.7 L (37.0-47.0) % MCH 26.9 L (27.0-33.0) pg Immature Gran % (Auto) 0.8 H (0.0-0.4) % Lymph % (Auto) 18.2 L (20-40) % Abs Immat Gran (auto) 0.08 H (0.00-0.03) X10*3/uL PT 13.5 H (10.0-13.1) SEC INR 1.2 H (0.9-1.1) Sodium 133 L (135-145) mmol/L Chloride 94 L (96-108) mmol/L Carbon Dioxide 31 H (22-29) mmol/L POC Glucose (60-115) mg/dL Random Glucose 175 H (60-115) mg/dL Total Bilirubin 1.1 H (0.0-1.0) mg/dL Total Protein 5.4 L (6.5-8.0) g/dL Albumin 3.4 L (3.5-5.0) g/dL Urine Nitrite (Negative) Ur Leukocyte Esterase (Negative) Urine RBC (0-2) /HPF Urine WBC (0-5) /HPF 01/03/23 01/03/23 01/04/23 Range/Units 11:55 20:20 05:28 RBC 3.50 L (4.20-5.50) X10*6/uL Hgb 9.5 L (12.0-16.0) g/dl Hct 29.4 L (37.0-47.0) % MCH (27.0-33.0) pg Immature Gran % (Auto) 0.6 H (0.0-0.4) % Lymph % (Auto) (20-40) % Abs Immat Gran (auto) 0.06 H (0.00-0.03) X10*3/uL PT (10.0-13.1) SEC INR (0.9-1.1) Sodium (135-145) mmol/L Chloride (96-108) mmol/L Carbon Dioxide (22-29) mmol/L POC Glucose 237 H (60-115) mg/dL Random Glucose (60-115) mg/dL Total Bilirubin (0.0-1.0) mg/dL Total Protein (6.5-8.0) g/dL Albumin (3.5-5.0) g/dL Urine Nitrite Positive H (Negative) Ur Leukocyte Esterase Large (3+) H (Negative) Urine RBC >20 H (0-2) /HPF Urine WBC >50 H (0-5) /HPF 01/04/23 01/04/23 Range/Units 05:28 07:36 RBC (4.20-5.50) X10*6/uL Hgb (12.0-16.0) g/dl Hct (37.0-47.0) % MCH (27.0-33.0) pg Immature Gran % (Auto) (0.0-0.4) % Lymph % (Auto) (20-40) % Abs Immat Gran (auto) (0.00-0.03) X10*3/uL PT (10.0-13.1) SEC INR (0.9-1.1) Sodium 133 L (135-145) mmol/L Chloride (96-108) mmol/L Carbon Dioxide (22-29) mmol/L POC Glucose 188 H (60-115) mg/dL Random Glucose 180 H (60-115) mg/dL Total Bilirubin (0.0-1.0) mg/dL Total Protein (6.5-8.0) g/dL Albumin (3.5-5.0) g/dL Urine Nitrite (Negative) Ur Leukocyte Esterase (Negative) Urine RBC (0-2) /HPF Urine WBC (0-5) /HPF H & H 01/03/23 01/04/23 Range/Units 11:39 05:28 Hgb 10.1 L 9.5 L (12.0-16.0) g/dl Hct 31.7 L 29.4 L (37.0-47.0) % Coagulation 01/03/23 Range/Units 11:39 INR 1.2 H (0.9-1.1) All other labs normal. Assessment and Plan (1) Osteoarthritis: Status: Acute Pain management as needed WBAT with walker No acute orthopedic intervention needed at this time F/u out patient to discuss ANGELICA (2) Intractable pain: Status: Acute Time Spent With Patient Time: Total time managing care of this patient today ____ minutes. Procedures Date of Service Date of Service: 01/04/23
[2023-01-04] MEDS: Phenazopyridine HCL 100 MG TABLET PO ×2 (08:34→19:30)
[2023-01-04] MEDS: 0.9 % Sodium Chloride Flush 3 ML SYRINGE IVFLUSH ×2 (08:34→23:55)
[2023-01-04] MEDS: DULoxetine HCl 60 MG CAPSULE.DR PO (08:34)
--- NOTE | 2023-01-04 09:54 | HO.PM.IMPN ---
Subjective Subjective Date of Service: 01/04/23 Interval History: hip pain Physical Exam Vital Signs: Vital Signs: Last Vital Signs Temp 99.2 F 01/04/23 04:57 Pulse 68 01/04/23 04:57 Resp 20 01/04/23 04:57 BP 132/60 01/04/23 04:57 Pulse Ox 94 01/04/23 04:57 O2 Del Method Room Air 01/04/23 04:57 BMI result Body Mass Index 32.5 General: AO X 3, no acute distress Resp: CTA bilateral, no accessory muscles used CVS: S1,S2,RRR GI: soft, non tender, non distended Neuro: motor grossly intact, alert Psych: appropriate affect, appropriate insight Objective Data Active Medications Acetaminophen (Acetaminophen 325 Mg Tablet) 650 mg PO Q6H PRN PRN Reason: Pain, Mild (Pain Scale 1-3) Amlodipine Besylate (Amlodipine Besylate 10 Mg Tablet) 10 mg PO DAILY [facility]; Protocol Last Admin: 01/04/23 08:01 Dose: 10 mg Documented By: CLAU Ascorbic Acid (Ascorbic Acid 500 Mg Tablet) 1,000 mg PO DAILY [facility] Last Admin: 01/04/23 07:58 Dose: 1,000 mg Documented By: CLAU Aspirin (Aspirin Enteric Coated 81 Mg Tablet.) 81 mg PO DAILY [facility] Last Admin: 01/04/23 07:58 Dose: 81 mg Documented By: CLAU Atorvastatin Calcium (Atorvastatin Calcium 80 Mg Tablet) 80 mg PO BEDTIME [facility] Last Admin: 01/03/23 20:33 Dose: 80 mg Documented By: JULIET Carvedilol (Carvedilol 25 Mg Tablet) 25 mg PO BID [facility]; Protocol Last Admin: 01/04/23 07:57 Dose: 25 mg Documented By: CLAU Docusate Sodium (Docusate Sodium 100 Mg Capsule) 100 mg PO DAILY PRN PRN Reason: Constipation Duloxetine HCl (Duloxetine Hcl 60 Mg Capsule.) 60 mg PO DAILY [facility] Last Admin: 01/04/23 08:34 Dose: 60 mg Documented By: CLAU Enoxaparin Sodium (Enoxaparin Sodium 40 Mg/0.4 Ml Syringe) 40 mg SUBCUT Q24H [facility] Last Admin: 01/03/23 18:30 Dose: 40 mg Documented By: ESME Escitalopram Oxalate (Escitalopram Oxalate 10 Mg Tablet) 10 mg PO DAILY [facility] Last Admin: 01/04/23 08:00 Dose: 10 mg Documented By: CLAU Famotidine (Famotidine 20 Mg Tablet) 40 mg PO BEDTIME [facility] Last Admin: 01/03/23 20:34 Dose: 40 mg Documented By: JULIET Ferrous Sulfate (Ferrous Sulfate 324 Mg Tablet.) 324 mg PO DAILY [facility] Last Admin: 01/04/23 07:59 Dose: 324 mg Documented By: CLAU Glucose (Glucose Gel 15 Gm Gel..Gram.) 15 gm PO Q15M PRN; Protocol PRN Reason: per Hypoglycemia Standing Ord. Dextrose (D10) 250 mls @ 750 mls/hr IV Q15M PRN; Protocol PRN Reason: per Hypoglycemia Standing Ord. Insulin Human Lispro (Insulin Lispro 100 Unit/Ml 3 Ml Vial) 0 unit SUBCUT QIDACHS [facility]; Protocol Last Admin: 01/04/23 07:56 Dose: 2 unit Documented By: CLAU Morphine Sulfate (Morphine Sulfate 4 Mg/Ml Cartridge) 4 mg IVPUSH Q4H PRN; Protocol PRN Reason: Pain, Severe (Pain Scale 7-10) Last Admin: 01/04/23 09:46 Dose: 4 mg Documented By: CLAU Multivitamins/Vitamin C (Multivitamin Tablet) 1 tab PO DAILY [facility] Last Admin: 01/04/23 08:00 Dose: 1 tab Documented By: CLAU Non-Formulary Medication (Ibrutinib [Imbruvica]) 420 mg PO DAILY [facility] Non-Formulary Medication (Methenamine Hippurate) 1 gm PO BID [facility] Omeprazole (Omeprazole 20 Mg Capsule.) 20 mg PO DAILY@0630 [facility] Last Admin: 01/04/23 05:04 Dose: 20 mg Documented By: JULIET Ondansetron HCl (Ondansetron Hcl 4 Mg/2 Ml Vial) 4 mg IVPUSH Q8H PRN PRN Reason: Nausea and Vomiting Oxycodone HCl (Oxycodone Hcl Immed Release 5 Mg Tablet) 5 mg PO Q6H PRN PRN Reason: Pain, Moderate (Pain Scale 4-6 Last Admin: 01/04/23 05:04 Dose: 5 mg Documented By: JULIET Pharmacy Consult (Consult Rx Perform Med Rec) 1 each MISCELLANE ONCE PRN PRN Reason: Consult order Phenazopyridine HCl (Phenazopyridine Hcl 100 Mg Tablet) 100 mg PO BID [facility] Last Admin: 01/04/23 08:34 Dose: 100 mg Documented By: CLAU Pregabalin (Pregabalin 150 Mg Capsule) 150 mg PO BID [facility] Last Admin: 01/04/23 07:57 Dose: 150 mg Documented By: CLUA Senna (Sennosides 8.6 Mg Tablet) 17.2 mg PO BEDTIME PRN PRN Reason: Constipation Sodium Chloride (0.9 % Sodium Chloride Flush 3 Ml Syringe) 3 ml IVFLUSH QSHIFT [facility] Last Admin: 01/04/23 08:34 Dose: 3 ml Documented By: CLAU Spironolactone (Spironolactone 25 Mg Tablet) 25 mg PO DAILY [facility]; Protocol Last Admin: 01/04/23 07:57 Dose: 25 mg Documented By: CLAU Labs 01/04/23 05:28 01/04/23 05:28 Labs: Laboratory Results - last 24 hr 01/03/23 01/03/23 01/03/23 11:39 11:39 11:39 MCV 84.5 MCH 26.9 L MCHC 31.9 RDW 14.6 Plt Count 222 D MPV 10.4 Immature Gran % (Auto) 0.8 H Neut % (Auto) 72.3 Lymph % (Auto) 18.2 L Dickinson % (Auto) 7.6 Eos % (Auto) 0.6 Baso % (Auto) 0.5 Lymph # (Auto) 1.9 Dickinson # (Auto) 0.8 Eos # (Auto) 0.1 Baso # (Auto) 0.1 Abs Immat Gran (auto) 0.08 H Absolute Neuts (auto) 7.5 Absolute Nucleated RBC 0.000 Nucleated RBC % (auto) 0.0 PT 13.5 H INR 1.2 H APTT 30.9 Anion Gap 12 Estim Creat Clear Calc 52.4 Estimated GFR 56 POC Glucose Random Glucose 175 H Lactic Acid Calcium 9.2 Magnesium 1.9 Total Bilirubin 1.1 H Direct Bilirubin 0.4 AST 11 ALT 8 Alkaline Phosphatase 72 Total Protein 5.4 L Albumin 3.4 L Lipase 57 Urine Color Urine Appearance Urine pH Ur Specific Shelby Urine Protein Urine Glucose (UA) Urine Ketones Urine Blood Urine Nitrite Ur Leukocyte Esterase Urine RBC Urine WBC Ur Squamous Epith Cells Urine Bacteria Hyaline Casts 01/03/23 01/03/23 01/03/23 11:55 14:34 20:20 MCV MCH MCHC RDW Plt Count MPV Immature Gran % (Auto) Neut % (Auto) Lymph % (Auto) Dickinson % (Auto) Eos % (Auto) Baso % (Auto) Lymph # (Auto) Dickinson # (Auto) Eos # (Auto) Baso # (Auto) Abs Immat Gran (auto) Absolute Neuts (auto) Absolute Nucleated RBC Nucleated RBC % (auto) PT INR APTT Anion Gap Estim Creat Clear Calc Estimated GFR POC Glucose 237 H Random Glucose Lactic Acid 0.6 Calcium Magnesium Total Bilirubin Direct Bilirubin AST ALT Alkaline Phosphatase Total Protein Albumin Lipase Urine Color Yellow Urine Appearance Hazy Urine pH 7.0 Ur Specific Shelby 1.010 Urine Protein Trace Urine Glucose (UA) Negative Urine Ketones Negative Urine Blood Trace Urine Nitrite Positive H Ur Leukocyte Esterase Large (3+) H Urine RBC >20 H Urine WBC >50 H Ur Squamous Epith Cells 0-2 Urine Bacteria 1+ Hyaline Casts 0-2 01/04/23 01/04/23 01/04/23 05:28 05:28 07:36 MCV 84.0 MCH 27.1 MCHC 32.3 RDW 14.8 Plt Count 214 MPV 10.9 Immature Gran % (Auto) 0.6 H Neut % (Auto) 67.8 Lymph % (Auto) 21.2 Dickinson % (Auto) 9.5 Eos % (Auto) 0.4 Baso % (Auto) 0.5 Lymph # (Auto) 2.1 Dickinson # (Auto) 1.0 Eos # (Auto) 0.0 Baso # (Auto) 0.1 Abs Immat Gran (auto) 0.06 H Absolute Neuts (auto) 6.8 Absolute Nucleated RBC 0.000 Nucleated RBC % (auto) 0.0 PT INR APTT Anion Gap 14 Estim Creat Clear Calc 55.8 Estimated GFR > 60 POC Glucose 188 H Random Glucose 180 H Lactic Acid Calcium 8.9 Magnesium Total Bilirubin Direct Bilirubin AST ALT Alkaline Phosphatase Total Protein Albumin Lipase Urine Color Urine Appearance Urine pH Ur Specific Shelby Urine Protein Urine Glucose (UA) Urine Ketones Urine Blood Urine Nitrite Ur Leukocyte Esterase Urine RBC Urine WBC Ur Squamous Epith Cells Urine Bacteria Hyaline Casts Microbiology Microbiology Results: Microbiology 01/03/23 Unknown Urine Culture - Preliminary Urine Catheterized - Straight Catheter Culture in progress. Assessment and Plan (1) Osteoarthritis: Status: Acute Plan 77-year-old female with pertinent history of recurrent UTI, chronic suprapubic catheter, [id number] diabetes mellitus, history of CVA, mood disorder, sleep apnea on CPAP, essential hypertension, chronic opioid use. presented with hip pain left hip pain, mostly due to severe OA complicated by Subchondral Insufficiency fracture left hip ortho appreciated, WBAT, PT (recommending STR) , pain control, outpatient follow up for ANGELICA Recurrent UTI/neurogenic bladder Positive UA. Seen by ID who feels patient likely with colonization. Not recommending treatment at this time Suprapubic catheter in place [id number] type 2 diabetes insulin HTN amlodipine aldactone mood disorder cymbalta GERD ppi DVT prophylaxis-Lovenox Full code reason for continued hospitalization: pain control Time Spent With Patient Time: Total time managing care of this patient today ____ minutes. Quality Stroke Does the patient have a stroke diagnosis?: No VTE Prior VTE?: No VTE Risk Level:: Medical - moderate - high VTE Device Contraindication: Treatment Not Indicated VTE Drug Contraindication: N/A - Med Ordered
--- NOTE | 2023-01-04 10:34 | PC.NURSE ---
Patient A&O x2, VSS, medicated for left hip pain. PT working with patient at present.
[2023-01-04 10:46] VITALS: BP 132/60; PULSE 68; O2SAT 94
[2023-01-04 12:15] LABS: Glucose, Whole Blood 192 mg/dL (60-115)
[2023-01-04 12:18] VITALS: BP 137/63; PULSE 70; RESP 18; TEMP 37.1; O2SAT 98
[2023-01-04] MEDS: Acetaminophen 325 MG TABLET 650 MG PO ×2 (12:22→22:15)
--- NOTE | 2023-01-04 13:23 | MHC.CM.PN ---
CM MET WITH PT AND AT BEDSIDE PT LIVES AT HOME WITH HER AND IS ACTIVE WITH ELARA CARING SHE USES A CANE, WALKER AND WHEEL CHAIR NEEDED PT IS COVID VAX X 5 SHE HAS A HCP ON FILE PCP: ELLEN VELÁZQUEZ OBSERVATION NOTICE DELIVERED CURRENT DC PLAN IS HOME WITH RESUMPTION OF ELARA CARING VS STR PT IS RECOMMENDING STR, HOWEVER PT HAS PREVIOUSLY DECLINED DCP TBD BY DISPO
[2023-01-04 15:12] VITALS: BP 143/65; PULSE 63; RESP 16; TEMP 36; O2SAT 92
[2023-01-04 16:10] LABS: Glucose, Whole Blood 187 mg/dL (60-115)
[2023-01-04] MEDS: Enoxaparin Sodium 40 MG/0.4 ML SYRINGE SUBCUT (17:07)
[2023-01-04] MEDS: Atorvastatin Calcium 80 MG TABLET PO (19:30)
[2023-01-04] MEDS: Famotidine 20 MG TABLET 40 MG PO (19:30)
[2023-01-04 19:33] VITALS: BP 164/73; PULSE 63; RESP 15; TEMP 36.1; O2SAT 95
[2023-01-04 20:13] LABS: Glucose, Whole Blood 196 mg/dL (60-115)
[2023-01-05 04:25] VITALS: BP 175/73; PULSE 71; RESP 16; TEMP 36.6; O2SAT 98
[2023-01-05] MEDS: oxyCODONE HCl Immed Release 5 MG TABLET PO ×2 (04:31→16:06)
[2023-01-05] MEDS: OLANZapine 10 MG VIAL IM (05:25)
[2023-01-05] MEDS: Omeprazole 20 MG CAPSULE.DR PO (05:26)
[2023-01-05 07:36] VITALS: BP 157/70; PULSE 70; RESP 18; TEMP 37.3; O2SAT 91
[2023-01-05 07:49] LABS: Glucose, Whole Blood 188 mg/dL (60-115)
[2023-01-05] MEDS: Aspirin Enteric Coated 81 MG TABLET.DR PO (07:57)
[2023-01-05] MEDS: amLODIPine Besylate 10 MG TABLET PO (07:57)
[2023-01-05] MEDS: Pregabalin 150 MG CAPSULE PO ×2 (07:57→21:07)
[2023-01-05] MEDS: Spironolactone 25 MG TABLET PO (07:58)
[2023-01-05] MEDS: Phenazopyridine HCL 100 MG TABLET PO ×2 (07:58→21:07)
[2023-01-05] MEDS: carvediloL 25 MG TABLET PO ×2 (07:58→21:08)
[2023-01-05] MEDS: Ferrous Sulfate 324 MG TABLET.DR PO (07:59)
[2023-01-05] MEDS: DULoxetine HCl 60 MG CAPSULE.DR PO (07:59)
[2023-01-05] MEDS: Ascorbic Acid 500 MG TABLET 1000 MG PO (07:59)
[2023-01-05] MEDS: Multivitamin TABLET 1 TAB PO (07:59)
[2023-01-05] MEDS: Escitalopram Oxalate 10 MG TABLET PO (07:59)
[2023-01-05] MEDS: Insulin Lispro 100 UNIT/ML 3 ML VIAL SUBCUT ×4 (08:00→21:20)
[2023-01-05] MEDS: 0.9 % Sodium Chloride Flush 3 ML SYRINGE IVFLUSH ×3 (08:00→21:08)
[2023-01-05] MEDS: Morphine Sulfate 4 MG/ML CARTRIDGE IVPUSH ×2 (08:09→21:19)
--- NOTE | 2023-01-05 08:53 | P.PNIM_ITS ---
Subjective Subjective Date of Service: 01/05/23 Interval History: hip pain, inability to ambulate Physical Exam Vital Signs: Vital Signs: Last Vital Signs Temp 99.2 F 01/05/23 07:36 Pulse 70 01/05/23 07:36 Resp 18 01/05/23 07:36 BP 157/70 H 01/05/23 07:36 Pulse Ox 91 L 01/05/23 07:36 O2 Del Method Room Air 01/05/23 07:36 BMI result Body Mass Index 32.5 General: AO X 3, no acute distress Resp: CTA bilateral, no accessory muscles used CVS: S1,S2,RRR GI: soft, non tender, non distended Neuro: motor grossly intact, alert Psych: appropriate affect, appropriate insight Objective Data Active Medications Acetaminophen (Acetaminophen 325 Mg Tablet) 650 mg PO Q6H PRN PRN Reason: Pain, Mild (Pain Scale 1-3) Last Admin: 01/04/23 22:15 Dose: 650 mg Documented By: YONNY Amlodipine Besylate (Amlodipine Besylate 10 Mg Tablet) 10 mg PO DAILY [facility]; Protocol Last Admin: 01/05/23 07:57 Dose: 10 mg Documented By: ERLIN Ascorbic Acid (Ascorbic Acid 500 Mg Tablet) 1,000 mg PO DAILY [facility] Last Admin: 01/05/23 07:59 Dose: 1,000 mg Documented By: ERLIN Aspirin (Aspirin Enteric Coated 81 Mg Tablet.) 81 mg PO DAILY [facility] Last Admin: 01/05/23 07:57 Dose: 81 mg Documented By: ERLIN Atorvastatin Calcium (Atorvastatin Calcium 80 Mg Tablet) 80 mg PO BEDTIME [facility] Last Admin: 01/04/23 19:30 Dose: 80 mg Documented By: YONNY Carvedilol (Carvedilol 25 Mg Tablet) 25 mg PO BID [facility]; Protocol Last Admin: 01/05/23 07:58 Dose: 25 mg Documented By: ERLIN Docusate Sodium (Docusate Sodium 100 Mg Capsule) 100 mg PO DAILY PRN PRN Reason: Constipation Duloxetine HCl (Duloxetine Hcl 60 Mg Capsule.) 60 mg PO DAILY [facility] Last Admin: 01/05/23 07:59 Dose: 60 mg Documented By: ERLIN Enoxaparin Sodium (Enoxaparin Sodium 40 Mg/0.4 Ml Syringe) 40 mg SUBCUT Q24H [facility] Last Admin: 01/04/23 17:07 Dose: 40 mg Documented By: PRISCILLA Escitalopram Oxalate (Escitalopram Oxalate 10 Mg Tablet) 10 mg PO DAILY [facility] Last Admin: 01/05/23 07:59 Dose: 10 mg Documented By: ERLIN Famotidine (Famotidine 20 Mg Tablet) 40 mg PO BEDTIME [facility] Last Admin: 01/04/23 19:30 Dose: 40 mg Documented By: YONNY Ferrous Sulfate (Ferrous Sulfate 324 Mg Tablet.) 324 mg PO DAILY [facility] Last Admin: 01/05/23 07:59 Dose: 324 mg Documented By: ERLIN Glucose (Glucose Gel 15 Gm Gel..Gram.) 15 gm PO Q15M PRN; Protocol PRN Reason: per Hypoglycemia Standing Ord. Dextrose (D10) 250 mls @ 750 mls/hr IV Q15M PRN; Protocol PRN Reason: per Hypoglycemia Standing Ord. Insulin Human Lispro (Insulin Lispro 100 Unit/Ml 3 Ml Vial) 0 unit SUBCUT QIDACHS [facility]; Protocol Last Admin: 01/05/23 08:00 Dose: 2 unit Documented By: ERLIN Morphine Sulfate (Morphine Sulfate 4 Mg/Ml Cartridge) 4 mg IVPUSH Q4H PRN; Pr otocol PRN Reason: Pain, Severe (Pain Scale 7-10) Last Admin: 01/05/23 08:09 Dose: 4 mg Documented By: ERLIN Multivitamins/Vitamin C (Multivitamin Tablet) 1 tab PO DAILY [facility] Last Admin: 01/05/23 07:59 Dose: 1 tab Documented By: ERLIN Pt Own (Ibrutinib [ Imbruvica] 420 Mg Tablet) 420 mg PO DAILY [facility] Last Admin: 01/05/23 08:00 Dose: 420 mg Documented By: ERLIN Non-Formulary Medication (Methenamine Hippurate) 1 gm PO BID [facility] Omeprazole (Omeprazole 20 Mg Capsule.) 20 mg PO DAILY@0630 [facility] Last Admin: 01/05/23 05:26 Dose: 20 mg Documented By: ALLENORALAmna Ondansetron HCl (Ondansetron Hcl 4 Mg/2 Ml Vial) 4 mg IVPUSH Q8H PRN PRN Reason: Nausea and Vomiting Oxycodone HCl (Oxycodone Hcl Immed Release 5 Mg Tablet) 5 mg PO Q6H PRN PRN Reason: Pain, Moderate (Pain Scale 4-6 Last Admin: 01/05/23 04:31 Dose: 5 mg Documented By: PINA Pharmacy Consult (Consult Rx Perform Med Rec) 1 each MISCELLANE ONCE PRN PRN Reason: Consult order Phenazopyridine HCl (Phenazopyridine Hcl 100 Mg Tablet) 100 mg PO BID [facility] Last Admin: 01/05/23 07:58 Dose: 100 mg Documented By: ERLIN Pregabalin (Pregabalin 150 Mg Capsule) 150 mg PO BID [facility] Last Admin: 01/05/23 07:57 Dose: 150 mg Documented By: ERLIN Senna (Sennosides 8.6 Mg Tablet) 17.2 mg PO BEDTIME PRN PRN Reason: Constipation Sodium Chloride (0.9 % Sodium Chloride Flush 3 Ml Syringe) 3 ml IVFLUSH QSHIFT [facility] Last Admin: 01/05/23 08:00 Dose: 3 ml Documented By: ERLIN Spironolactone (Spironolactone 25 Mg Tablet) 25 mg PO DAILY [facility]; Protocol Last Admin: 01/05/23 07:58 Dose: 25 mg Documented By: ERLIN Labs 01/04/23 05:28 01/04/23 05:28 Labs: Laboratory Results - last 24 hr 01/04/23 01/04/23 01/04/23 12:10 16:06 20:05 POC Glucose 192 H 187 H 196 H 01/05/23 07:35 POC Glucose 188 H Microbiology Microbiology Results: Microbiology 01/03/23 14:32 Blood Culture - Preliminary Blood - Venous No growth after 24 hours. 01/03/23 14:34 Blood Culture - Preliminary Blood - Venous No growth after 24 hours. 01/03/23 Unknown Urine Culture - Preliminary Urine Catheterized - Straight Catheter Culture in progress. Assessment and Plan (1) Osteoarthritis: Status: Acute Plan 77-year-old female with pertinent history of recurrent UTI, chronic suprapubic catheter, [id number] diabetes mellitus, history of CVA, mood disorder, sleep apnea on CPAP, essential hypertension, chronic opioid use. presented with hip pain left hip pain, mostly due to severe OA complicated by Subchondral Insufficiency fracture left hip ortho appreciated, WBAT, PT (recommending STR) , pain control, outpatient follow up for ANGELICA unless unable to ambulate at all with conservative care. if unable to ambulate benefits of more urgent ANGELICA inpatient may outweigh risks. Recurrent UTI/neurogenic bladder Positive UA. Seen by ID who feels patient likely with colonization. Not recommending treatment at this time Suprapubic catheter in place [id number] type 2 diabetes insulin HTN amlodipine aldactone mood disorder cymbalta GERD ppi DVT prophylaxis-Lovenox Full code reason for continued hospitalization: pain control Time Spent With Patient Time: Total time managing care of this patient today ____ minutes. Quality Stroke Does the patient have a stroke diagnosis?: No VTE Prior VTE?: No VTE Risk Level:: Medical - moderate - high VTE Device Contraindication: Treatment Not Indicated VTE Drug Contraindication: N/A - Med Ordered
[2023-01-05 11:39] LABS: Glucose, Whole Blood 263 mg/dL (60-115)
[2023-01-05 15:58] VITALS: BP 133/63; PULSE 65; RESP 17; TEMP 36.4; O2SAT 96
[2023-01-05 16:40] LABS: Glucose, Whole Blood 243 mg/dL (60-115)
[2023-01-05] MEDS: Enoxaparin Sodium 40 MG/0.4 ML SYRINGE SUBCUT (18:23)
[2023-01-05 20:00] VITALS: BP 169/73; PULSE 77; RESP 18; TEMP 37.6; O2SAT 94
[2023-01-05] MEDS: Famotidine 20 MG TABLET 40 MG PO (21:07)
[2023-01-05] MEDS: Atorvastatin Calcium 80 MG TABLET PO (21:08)
[2023-01-05 21:12] LABS: Glucose, Whole Blood 227 mg/dL (60-115)
[2023-01-05] MEDS: Acetaminophen 325 MG TABLET 650 MG PO (21:25)
[2023-01-06 03:43] VITALS: BP 146/71; PULSE 66; RESP 17; TEMP 36.1; O2SAT 94
[2023-01-06 07:31] VITALS: BP 187/81; PULSE 67; RESP 18; TEMP 35.9; O2SAT 92
[2023-01-06 07:51] LABS: Glucose, Whole Blood 208 mg/dL (60-115)
[2023-01-06] MEDS: 0.9 % Sodium Chloride Flush 3 ML SYRINGE IVFLUSH ×3 (08:05→21:21)
[2023-01-06] MEDS: Insulin Lispro 100 UNIT/ML 3 ML VIAL SUBCUT ×4 (08:05→21:21)
[2023-01-06] MEDS: amLODIPine Besylate 10 MG TABLET PO (08:06)
[2023-01-06] MEDS: Ascorbic Acid 500 MG TABLET 1000 MG PO (08:06)
[2023-01-06] MEDS: DULoxetine HCl 60 MG CAPSULE.DR PO (08:07)
[2023-01-06] MEDS: carvediloL 25 MG TABLET PO ×2 (08:07→21:21)
[2023-01-06] MEDS: Phenazopyridine HCL 100 MG TABLET PO ×2 (08:07→21:19)
[2023-01-06] MEDS: Ferrous Sulfate 324 MG TABLET.DR PO (08:07)
[2023-01-06] MEDS: Spironolactone 25 MG TABLET PO (08:07)
[2023-01-06] MEDS: Pregabalin 150 MG CAPSULE PO ×2 (08:07→21:19)
[2023-01-06] MEDS: Multivitamin TABLET 1 TAB PO (08:07)
[2023-01-06] MEDS: Aspirin Enteric Coated 81 MG TABLET.DR PO (08:07)
[2023-01-06] MEDS: Escitalopram Oxalate 10 MG TABLET PO (08:07)
--- NOTE | 2023-01-06 08:44 | P.PNIM_ITS ---
Subjective Subjective Date of Service: 01/06/23 Interval History: hip pain Physical Exam Vital Signs: Vital Signs: Last Vital Signs Temp 96.7 F L 01/06/23 07:31 Pulse 67 01/06/23 07:31 Resp 18 01/06/23 07:31 BP 187/81 H 01/06/23 07:31 Pulse Ox 92 01/06/23 07:31 O2 Del Method Room Air 01/06/23 07:31 BMI result Body Mass Index 32.5 General: AO X 3, no acute distress Resp: CTA bilateral, no accessory muscles used CVS: S1,S2,RRR GI: soft, non tender, non distended Neuro: motor grossly intact, alert Psych: appropriate affect, appropriate insight Objective Data Active Medications Acetaminophen (Acetaminophen 325 Mg Tablet) 650 mg PO Q6H PRN PRN Reason: Pain, Mild (Pain Scale 1-3) Last Admin: 01/05/23 21:25 Dose: 650 mg Documented By: MARTHA Amlodipine Besylate (Amlodipine Besylate 10 Mg Tablet) 10 mg PO DAILY [facility]; Protocol Last Admin: 01/06/23 08:06 Dose: 10 mg Documented By: ERLIN Ascorbic Acid (Ascorbic Acid 500 Mg Tablet) 1,000 mg PO DAILY [facility] Last Admin: 01/06/23 08:06 Dose: 1,000 mg Documented By: ERLIN Aspirin (Aspirin Enteric Coated 81 Mg Tablet.) 81 mg PO DAILY [facility] Last Admin: 01/06/23 08:07 Dose: 81 mg Documented By: ERLIN Atorvastatin Calcium (Atorvastatin Calcium 80 Mg Tablet) 80 mg PO BEDTIME [facility] Last Admin: 01/05/23 21:08 Dose: 80 mg Documented By: MARTHA Carvedilol (Carvedilol 25 Mg Tablet) 25 mg PO BID [facility]; Protocol Last Admin: 01/06/23 08:07 Dose: 25 mg Documented By: ERLIN Docusate Sodium (Docusate Sodium 100 Mg Capsule) 100 mg PO DAILY PRN PRN Reason: Constipation Duloxetine HCl (Duloxetine Hcl 60 Mg Capsule.) 60 mg PO DAILY [facility] Last Admin: 01/06/23 08:07 Dose: 60 mg Documented By: ERLIN Enoxaparin Sodium (Enoxaparin Sodium 40 Mg/0.4 Ml Syringe) 40 mg SUBCUT Q24H [facility] Last Admin: 01/05/23 18:23 Dose: 40 mg Documented By: ERLIN Escitalopram Oxalate (Escitalopram Oxalate 10 Mg Tablet) 10 mg PO DAILY [facility] Last Admin: 01/06/23 08:07 Dose: 10 mg Documented By: ERLIN Famotidine (Famotidine 20 Mg Tablet) 40 mg PO BEDTIME [facility] Last Admin: 01/05/23 21:07 Dose: 40 mg Documented By: MARTHA Ferrous Sulfate (Ferrous Sulfate 324 Mg Tablet.) 324 mg PO DAILY [facility] Last Admin: 01/06/23 08:07 Dose: 324 mg Documented By: ERLIN Glucose (Glucose Gel 15 Gm Gel..Gram.) 15 gm PO Q15M PRN; Protocol PRN Reason: per Hypoglycemia Standing Ord. Dextrose (D10) 250 mls @ 750 mls/hr IV Q15M PRN; Protocol PRN Reason: per Hypoglycemia Standing Ord. Insulin Human Lispro (Insulin Lispro 100 Unit/Ml 3 Ml Vial) 0 unit SUBCUT QIDACHS [facility]; Protocol Last Admin: 01/06/23 08:05 Dose: 4 unit Documented By: ERLIN Morphine Sulfate (Morphine Sulfate 4 Mg/Ml Cartridge) 4 mg IVPUSH Q4H PRN; Protocol PRN Reason: Pain, Severe (Pain Scale 7-10) Last Admin: 01/05/23 21:19 Dose: 4 mg Documented By: MARTHA Multivitamins/Vitamin C (Multivitamin Tablet) 1 tab PO DAILY [facility] Last Admin: 01/06/23 08:07 Dose: 1 tab Documented By: ERLIN Pt Own (Ibrutinib [ Imbruvica] 420 Mg Tablet) 420 mg PO DAILY [facility] Last Admin: 01/06/23 08:06 Dose: 420 mg Documented By: ERLIN Non-Formulary Medication (Methenamine Hippurate) 1 gm PO BID [facility] Omeprazole (Omeprazole 20 Mg Capsule.) 20 mg PO DAILY@0630 [facility] Last Admin: 01/06/23 06:32 Dose: Not Given Documented By: MARTHA Non-Admin Reason: Patient Asleep Ondansetron HCl (Ondansetron Hcl 4 Mg/2 Ml Vial) 4 mg IVPUSH Q8H PRN PRN Reason: Nausea and Vomiting Oxycodone HCl (Oxycodone Hcl Immed Release 5 Mg Tablet) 5 mg PO Q6H PRN PRN Reason: Pain, Moderate (Pain Scale 4-6 Last Admin: 01/05/23 16:06 Dose: 5 mg Documented By: ERLIN Pharmacy Consult (Consult Rx Perform Med Rec) 1 each MISCELLANE ONCE PRN PRN Reason: Consult order Phenazopyridine HCl (Phenazopyridine Hcl 100 Mg Tablet) 100 mg PO BID [facility] Last Admin: 01/06/23 08:07 Dose: 100 mg Documented By: ERLIN Pregabalin (Pregabalin 150 Mg Capsule) 150 mg PO BID [facility] Last Admin: 01/06/23 08:07 Dose: 150 mg Documented By: ERLIN Senna (Sennosides 8.6 Mg Tablet) 17.2 mg PO BEDTIME PRN PRN Reason: Constipation Sodium Chloride (0.9 % Sodium Chloride Flush 3 Ml Syringe) 3 ml IVFLUSH QSHIFT [facility] Last Admin: 01/06/23 08:05 Dose: 3 ml Documented By: ERLIN Spironolactone (Spironolactone 25 Mg Tablet) 25 mg PO DAILY [facility]; Protocol Last Admin: 01/06/23 08:07 Dose: 25 mg Documented By: ERLIN Labs 01/04/23 05:28 01/04/23 05:28 Labs: Laboratory Results - last 24 hr 01/05/23 01/05/23 01/05/23 11:32 16:32 21:00 POC Glucose 263 H 243 H 227 H 01/06/23 07:26 POC Glucose 208 H Microbiology Microbiology Results: Microbiology 01/03/23 14:32 Blood Culture - Preliminary Blood - Venous No growth after 48 hours. 01/03/23 14:34 Blood Culture - Preliminary Blood - Venous No growth after 48 hours. 01/03/23 Unknown Urine Culture - Preliminary Urine Catheterized - Straight Catheter Culture in progress. Assessment and Plan (1) Osteoarthritis: Status: Acute Plan 77-year-old female with pertinent history of recurrent UTI, chronic suprapubic catheter, [id number] diabetes mellitus, history of CVA, mood disorder, sleep apnea on CPAP, essential hypertension, chronic opioid use. presented with hip pain left hip pain, mostly due to severe OA complicated by Subchondral Insufficiency fracture left hip ortho appreciated, WBAT, PT (recommending STR) , pain control, outpatient follow up for ANGELICA unless unable to ambulate at all with conservative care. if unable to ambulate benefits of more urgent ANGELICA inpatient may outweigh risks. Recurrent UTI/neurogenic bladder Positive UA. Seen by ID who feels patient likely with colonization. Not recommending treatment at this time Suprapubic catheter in place [id number] type 2 diabetes insulin HTN amlodipine aldactone mood disorder cymbalta GERD ppi DVT prophylaxis-Lovenox Full code reason for continued hospitalization: pain control Time Spent With Patient Time: Total time managing care of this patient today ____ minutes. Quality Stroke Does the patient have a stroke diagnosis?: No VTE Prior VTE?: No VTE Risk Level:: Medical - moderate - high VTE Device Contraindication: Treatment Not Indicated VTE Drug Contraindication: N/A - Med Ordered
[2023-01-06 09:37] VITALS: BP 128/62
[2023-01-06] MEDS: oxyCODONE HCl Immed Release 5 MG TABLET PO (09:38)
--- NOTE | 2023-01-06 10:12 | MHC.CM.PN ---
PATIENT NOW INPATIENT STATUS IMM 01/06 IN CHART
[2023-01-06] MEDS: Morphine Sulfate 4 MG/ML CARTRIDGE IVPUSH ×3 (10:59→21:27)
[2023-01-06 11:35] LABS: Glucose, Whole Blood 310 mg/dL (60-115)
[2023-01-06 15:10] VITALS: BP 129/77; PULSE 66; RESP 15; TEMP 36.5; O2SAT 93
[2023-01-06 16:16] LABS: Glucose, Whole Blood 254 mg/dL (60-115)
[2023-01-06] MEDS: Enoxaparin Sodium 40 MG/0.4 ML SYRINGE SUBCUT (16:58)
[2023-01-06 19:15] VITALS: BP 102/51; PULSE 68; RESP 14; TEMP 36; O2SAT 93
[2023-01-06 21:11] LABS: Glucose, Whole Blood 225 mg/dL (60-115)
[2023-01-06] MEDS: Famotidine 20 MG TABLET 40 MG PO (21:19)
[2023-01-06] MEDS: Acetaminophen 325 MG TABLET 650 MG PO (21:19)
[2023-01-06] MEDS: Atorvastatin Calcium 80 MG TABLET PO (21:21)
[2023-01-07 04:00] VITALS: BP 133/63; PULSE 64; RESP 16; TEMP 36.5; O2SAT 90
[2023-01-07] MEDS: Omeprazole 20 MG CAPSULE.DR PO (06:03)
[2023-01-07 07:00] VITALS: BP 123/58; PULSE 64; RESP 18; TEMP 36.6; O2SAT 92
[2023-01-07 07:07] LABS: Hematocrit 29.2 % (37.0-47.0); Hemoglobin 9.4 g/dl (12.0-16.0); Mean Corpuscular HGB Conc 32.2 g/dl (31.0-35.0); Mean Corpuscular Hemoglobin 27.3 pg (27.0-33.0); Mean Corpuscular Volume 84.9 fL (80.0-98.0); Platelet Count 191 X10*3/uL (160-400); Red Blood Count 3.44 X10*6/uL (4.20-5.50); Red Cell Distribution Width 14.8 % (11.0-16.0); White Blood Count 7.8 X10*3/uL (4.8-10.8)
[2023-01-07 07:14] LABS: Glucose, Whole Blood 208 mg/dL (60-115)
[2023-01-07] MEDS: Insulin Lispro 100 UNIT/ML 3 ML VIAL SUBCUT ×4 (08:10→20:46)
[2023-01-07] MEDS: Morphine Sulfate 4 MG/ML CARTRIDGE IVPUSH ×4 (08:11→20:45)
[2023-01-07] MEDS: Aspirin Enteric Coated 81 MG TABLET.DR PO (08:12)
[2023-01-07] MEDS: Ferrous Sulfate 324 MG TABLET.DR PO (08:12)
[2023-01-07] MEDS: Phenazopyridine HCL 100 MG TABLET PO ×2 (08:12→20:45)
[2023-01-07] MEDS: Multivitamin TABLET 1 TAB PO (08:12)
[2023-01-07] MEDS: Escitalopram Oxalate 10 MG TABLET PO (08:12)
[2023-01-07] MEDS: carvediloL 25 MG TABLET PO ×2 (08:13→20:45)
[2023-01-07] MEDS: DULoxetine HCl 60 MG CAPSULE.DR PO (08:13)
[2023-01-07] MEDS: Ascorbic Acid 500 MG TABLET 1000 MG PO (08:13)
[2023-01-07] MEDS: Spironolactone 25 MG TABLET PO (08:13)
[2023-01-07] MEDS: amLODIPine Besylate 10 MG TABLET PO (08:13)
[2023-01-07] MEDS: Pregabalin 150 MG CAPSULE PO ×2 (08:13→20:45)
[2023-01-07] MEDS: 0.9 % Sodium Chloride Flush 3 ML SYRINGE IVFLUSH ×3 (08:14→20:46)
--- NOTE | 2023-01-07 08:33 | HO.PM.IMPN ---
Subjective Subjective Date of Service: 01/07/23 Interval History: severe left hip pain, unable to ambulate Physical Exam Vital Signs: Vital Signs: Last Vital Signs Temp 98 F 01/07/23 07:00 Pulse 64 01/07/23 07:00 Resp 18 01/07/23 07:00 BP 123/58 L 01/07/23 07:00 Pulse Ox 92 01/07/23 07:00 O2 Del Method Room Air 01/07/23 07:00 BMI result Body Mass Index 32.5 General: AO X 3, no acute distress Resp: CTA bilateral, no accessory muscles used CVS: S1,S2,RRR GI: soft, non tender, non distended Neuro: motor grossly intact, alert Psych: appropriate affect, appropriate insight Objective Data Active Medications Acetaminophen (Acetaminophen 325 Mg Tablet) 650 mg PO Q6H PRN PRN Reason: Pain, Mild (Pain Scale 1-3) Last Admin: 01/06/23 21:19 Dose: 650 mg Documented By: PINA Amlodipine Besylate (Amlodipine Besylate 10 Mg Tablet) 10 mg PO DAILY [facility]; Protocol Last Admin: 01/07/23 08:13 Dose: 10 mg Documented By: DARLINE Ascorbic Acid (Ascorbic Acid 500 Mg Tablet) 1,000 mg PO DAILY [facility] Last Admin: 01/07/23 08:13 Dose: 1,000 mg Documented By: DARLINE Aspirin (Aspirin Enteric Coated 81 Mg Tablet.) 81 mg PO DAILY [facility] Last Admin: 01/07/23 08:12 Dose: 81 mg Documented By: DARLINE Atorvastatin Calcium (Atorvastatin Calcium 80 Mg Tablet) 80 mg PO BEDTIME [facility] Last Admin: 01/06/23 21:21 Dose: 80 mg Documented By: PINA Carvedilol (Carvedilol 25 Mg Tablet) 25 mg PO BID [facility]; Protocol Last Admin: 01/07/23 08:13 Dose: 25 mg Documented By: DARLINE Docusate Sodium (Docusate Sodium 100 Mg Capsule) 100 mg PO DAILY PRN PRN Reason: Constipation Duloxetine HCl (Duloxetine Hcl 60 Mg Capsule.) 60 mg PO DAILY [facility] Last Admin: 01/07/23 08:13 Dose: 60 mg Documented By: DARLINE Enoxaparin Sodium (Enoxaparin Sodium 40 Mg/0.4 Ml Syringe) 40 mg SUBCUT Q24H [facility] Last Admin: 01/06/23 16:58 Dose: 40 mg Documented By: ERLIN Escitalopram Oxalate (Escitalopram Oxalate 10 Mg Tablet) 10 mg PO DAILY [facility] Last Admin: 01/06/23 08:07 Dose: 10 mg Documented By: ERLIN Famotidine (Famotidine 20 Mg Tablet) 40 mg PO BEDTIME [facility] Last Admin: 01/06/23 21:19 Dose: 40 mg Documented By: PINA Ferrous Sulfate (Ferrous Sulfate 324 Mg Tablet.) 324 mg PO DAILY [facility] Last Admin: 01/07/23 08:12 Dose: 324 mg Documented By: DARLINE Glucose (Glucose Gel 15 Gm Gel..Gram.) 15 gm PO Q15M PRN; Protocol PRN Reason: per Hypoglycemia Standing Ord. Dextrose (D10) 250 mls @ 750 mls/hr IV Q15M PRN; Protocol PRN Reason: per Hypoglycemia Standing Ord. Insulin Human Lispro (Insulin Lispro 100 Unit/Ml 3 Ml Vial) 0 unit SUBCUT QIDACHS [facility]; Protocol Last Admin: 01/07/23 08:10 Dose: 4 unit Documented By: DARLINE Morphine Sulfate (Morphine Sulfate 4 Mg/Ml Cartridge) 4 mg IVPUSH Q4H PRN; Protocol PRN Reason: Pain, Severe (Pain Scale 7-10) Last Admin: 01/07/23 08:11 Dose: 4 mg Documented By: DARLINE Multivitamins/Vitamin C (Multivitamin Tablet) 1 tab PO DAILY [facility] Last Admin: 01/07/23 08:12 Dose: 1 tab Documented By: DARLINE Pt Own (Ibrutinib [ Imbruvica] 420 Mg Tablet) 420 mg PO DAILY [facility] Last Admin: 01/07/23 08:14 Dose: 420 mg Documented By: DARLINE Non-Formulary Medication (Methenamine Hippurate) 1 gm PO BID [facility] Omeprazole (Omeprazole 20 Mg Capsule.) 20 mg PO DAILY@0630 [facility] Last Admin: 01/07/23 06:03 Dose: 20 mg Documented By: GRACIE Ondansetron HCl (Ondansetron Hcl 4 Mg/2 Ml Vial) 4 mg IVPUSH Q8H PRN PRN Reason: Nausea and Vomiting Oxycodone HCl (Oxycodone Hcl Immed Release 5 Mg Tablet) 5 mg PO Q6H PRN PRN Reason: Pain, Moderate (Pain Scale 4-6 Last Admin: 01/06/23 09:38 Dose: 5 mg Documented By: ERLIN Pharmacy Consult (Consult Rx Perform Med Rec) 1 each MISCELLANE ONCE PRN PRN Reason: Consult order Phenazopyridine HCl (Phenazopyridine Hcl 100 Mg Tablet) 100 mg PO BID [facility] Last Admin: 01/07/23 08:12 Dose: 100 mg Documented By: DARLINE Pregabalin (Pregabalin 150 Mg Capsule) 150 mg PO BID [facility] Last Admin: 01/07/23 08:13 Dose: 150 mg Documented By: DARLINE Senna (Sennosides 8.6 Mg Tablet) 17.2 mg PO BEDTIME PRN PRN Reason: Constipation Sodium Chloride (0.9 % Sodium Chloride Flush 3 Ml Syringe) 3 ml IVFLUSH QSHIFT [facility] Last Admin: 01/07/23 08:14 Dose: 3 ml Documented By: DARLINE Spironolactone (Spironolactone 25 Mg Tablet) 25 mg PO DAILY [facility]; Protocol Last Admin: 01/07/23 08:13 Dose: 25 mg Documented By: DARLINE Labs 01/07/23 05:45 01/04/23 05:28 Labs: Laboratory Results - last 24 hr 01/06/23 01/06/23 01/06/23 11:20 15:58 20:59 MCV MCH MCHC RDW Plt Count MPV Absolute Nucleated RBC Nucleated RBC % (auto) POC Glucose 310 H 254 H 225 H 01/07/23 01/07/23 05:45 06:59 MCV 84.9 MCH 27.3 MCHC 32.2 RDW 14.8 Plt Count 191 MPV 11.0 Absolute Nucleated RBC 0.000 Nucleated RBC % (auto) 0.0 POC Glucose 208 H Microbiology Microbiology Results: Microbiology 01/03/23 Unknown Urine Culture - Preliminary Urine Catheterized - Straight Catheter Gram negative elvira Yeast Assessment and Plan (1) Osteoarthritis: Status: Acute Plan 77-year-old female with pertinent history of recurrent UTI, chronic suprapubic catheter, [id number]-hhhmuwilt diabetes mellitus, history of CVA, mood disorder, sleep apnea on CPAP, essential hypertension, chronic opioid use. presented with hip pain left hip pain, mostly due to severe OA complicated by Subchondral Insufficiency fracture left hip ortho appreciated, WBAT, PT (recommending STR) , pain control, outpatient follow up for ANGELICA unless unable to ambulate at all with conservative care. if unable to ambulate benefits of more urgent ANGELICA inpatient may outweigh risks. pain still uncontrolled Recurrent UTI/neurogenic bladder Positive UA. Seen by ID who feels patient likely with colonization. Not recommending treatment at this time Suprapubic catheter in place [id number]-wzxvowwom type 2 diabetes insulin HTN amlodipine aldactone mood disorder cymbalta GERD ppi DVT prophylaxis-Lovenox Full code reason for continued hospitalization: pain control Time Spent With Patient Time: Total time managing care of this patient today ____ minutes. Quality Stroke Does the patient have a stroke diagnosis?: No VTE Prior VTE?: No VTE Risk Level:: Medical - moderate - high VTE Device Contraindication: Treatment Not Indicated VTE Drug Contraindication: N/A - Med Ordered
[2023-01-07 09:07] LABS: Anion Gap 12 (12-20); Blood Urea Nitrogen 18 mg/dL (9-16); Calcium 9.5 mg/dL (8.4-10.2); Carbon Dioxide 28 mmol/L (22-29); Chloride 98 mmol/L (96-108); Creatinine Clr Calc Pharmacy 55.3; Estimated Glomerular Filt Rate 59; Potassium 3.8 mmol/L (3.3-5.1); Sodium 134 mmol/L (135-145)
[2023-01-07] MEDS: Acetaminophen 325 MG TABLET 650 MG PO ×2 (09:29→15:53)
[2023-01-07 11:07] LABS: Glucose, Whole Blood 276 mg/dL (60-115)
[2023-01-07] MEDS: oxyCODONE HCl Immed Release 5 MG TABLET PO ×2 (11:50→18:44)
[2023-01-07] MEDS: Docusate Sodium 100 MG CAPSULE PO (11:51)
[2023-01-07 12:00] LABS: Glucose Fasting 208 mg/dL (60-99)
--- NOTE | 2023-01-07 15:00 | PC.NURSE ---
Assumed care of patient at this time.
--- NOTE | 2023-01-07 15:26 | PM.CNOR ---
History of Present Illness HPI Consult date: 01/04/23 Chief complaint: hip pain Narrative: Kaitlin is a 77 yo F with end-stage OA of the left hip. She was seen in my office several months ago but presented to the ER with worsening left hip pain. CT demonstrated progressive articular collapse c/w acute on chronic hip OA. She has been unable to ambulate and was admitted to the hospital. SHe has pain with weight bearing that localizes top her groin. Review of Systems Constitutional: Constitutional: Reports as per [facility] Past Medical History Medical History Allergy to multiple antibiotics Anemia Arthritis CLL (chronic lymphocytic leukemia) CLL (chronic lymphocytic leukemia) Depression Diabetes mellitus Diabetes with neurologic complications Fibromyalgia History of bilateral breast cancer History of blood transfusion History of CVA (cerebrovascular accident) History of numbness Hypercholesterolemia Hypertension Morbid obesity PONV (postoperative nausea and vomiting) Seasonal allergies Self-catheterizes urinary bladder Sleep apnea Type 2 diabetes mellitus with unspecified complications Urinary retention with incomplete bladder emptying Wears dentures Family History Family History Mother Breast cancer Father Heart disease Father Lung cancer Mother Colon cancer Brother Pancreatic cancer Surgical History Surgical History History of back surgery History of biopsy of bladder History of bladder repair surgery History of esophagogastroduodenoscopy (EGD) History of suprapubic catheter History of total hysterectomy Hx of colonoscopy S/P Botox injection S/P breast biopsy, right S/P left breast biopsy Social History Social History Household Members: Spouse Housing: House Are you a primary healthcare risk control consultant to a significant other at home: No Do you presently have visiting nurse or other home services: Yes Alcohol intake: never Patient Tobacco Use Status: Never used Tobacco Smoked in Last 30 Days: No Use of substances other than those prescribed or required for medical reasons: No Currently Displaying Signs/Symptoms of Drug Intoxication Withdrawal: No Have you been hit, kicked, punched, or otherwise hurt by someone within the past year? If so, by whom?: No Advance Directives: Yes Advance Directives on File: Yes Advance Directives Date on File: 04/11/22 Recently lost weight without trying: Unsure Nutrition Risks: No Nutritional Risk Patient : No service: No Current occupational status: retired Meds Allergies Allergy/AdvReac Type Severity Reaction Status Date / Time amoxicillin [AMOXICILLIN] Allergy Severe stroke, Verified 12/17/22 10:12 blood clots ciprofloxacin [From CIPRO] Allergy Severe ANAPHYLAXIS Verified 12/17/22 10:12 Iodinated Contrast Media Allergy Severe HIVES Verified 12/17/22 10:12 [IV DYE, IODINE CONTAINING CONTRAST ] levofloxacin Allergy Severe Anaphylaxis Verified 12/17/22 10:12 liraglutide Allergy Severe Headache Verified 12/17/22 10:12 Penicillins Allergy Severe stroke, Verified 12/17/22 10:12 blood clots phenazopyridine [Pyridium] Allergy Severe Anaphylaxis Verified 12/17/22 10:12 FREYA Inhibitors Allergy Intermediate Cough Verified 12/17/22 10:12 ARB-Angiotensin Receptor Allergy Intermediate Cough Verified 12/17/22 10:12 Antagonist atorvastatin Allergy Intermediate Shortness Verified 12/17/22 10:12 of Breath cefpodoxime Allergy Intermediate Dizziness, Verified 12/17/22 10:12 nausea celecoxib [From CELEBREX] Allergy Intermediate HIVES Verified 12/17/22 10:12 doxazosin Allergy Intermediate Shortness Verified 12/17/22 10:12 of Breath fluticasone [Advair Diskus] Allergy Intermediate Anxiety Verified 12/17/22 10:12 gabapentin [From Neurontin] Allergy Intermediate Headache Verified 12/17/22 10:12 hydralazine Allergy Intermediate Shortness Verified 12/17/22 10:12 of Breath latex Allergy Intermediate Hives Verified 12/17/22 10:12 linezolid Allergy Intermediate Nausea and Verified 12/17/22 10:12 Vomiting meloxicam Allergy Intermediate Unknown Verified 12/17/22 10:12 salmeterol [Advair Diskus] Allergy Intermediate Anxiety Verified 12/17/22 10:12 Tetanus Vaccines and Toxoid Allergy Intermediate Swelling Verified 12/17/22 10:12 torsemide Allergy Intermediate Shortness Verified 12/17/22 10:12 of Breath cephalexin [Keflex] Allergy Mild Nausea Verified 12/17/22 10:12 Active Medications: Current Medications Acetaminophen (Acetaminophen 325 Mg Tablet) 650 mg PO Q6H PRN PRN Reason: Pain, Mild (Pain Scale 1-3) Last Admin: 01/07/23 09:29 Dose: 650 mg Amlodipine Besylate (Amlodipine Besylate 10 Mg Tablet) 10 mg PO DAILY [facility]; Protocol Last Admin: 01/07/23 08:13 Dose: 10 mg Ascorbic Acid (Ascorbic Acid 500 Mg Tablet) 1,000 mg PO DAILY [facility] Last Admin: 01/07/23 08:13 Dose: 1,000 mg Aspirin (Aspirin Enteric Coated 81 Mg Tablet.) 81 mg PO DAILY [facility] Last Admin: 01/07/23 08:12 Dose: 81 mg Atorvastatin Calcium (Atorvastatin Calcium 80 Mg Tablet) 80 mg PO BEDTIME [facility] Last Admin: 01/06/23 21:21 Dose: 80 mg Carvedilol (Carvedilol 25 Mg Tablet) 25 mg PO BID [facility]; Protocol Last Admin: 01/07/23 08:13 Dose: 25 mg Docusate Sodium (Docusate Sodium 100 Mg Capsule) 100 mg PO DAILY PRN PRN Reason: Constipation Last Admin: 01/07/23 11:51 Dose: 100 mg Duloxetine HCl (Duloxetine Hcl 60 Mg Capsule.) 60 mg PO DAILY [facility] Last Admin: 01/07/23 08:13 Dose: 60 mg Enoxaparin Sodium (Enoxaparin Sodium 40 Mg/0.4 Ml Syringe) 40 mg SUBCUT Q24H [facility] Last Admin: 01/06/23 16:58 Dose: 40 mg Escitalopram Oxalate (Escitalopram Oxalate 10 Mg Tablet) 10 mg PO DAILY [facility] Last Admin: 01/07/23 08:12 Dose: 10 mg Famotidine (Famotidine 20 Mg Tablet) 40 mg PO BEDTIME [facility] Last Admin: 01/06/23 21:19 Dose: 40 mg Ferrous Sulfate (Ferrous Sulfate 324 Mg Tablet.) 324 mg PO DAILY [facility] Last Admin: 01/07/23 08:12 Dose: 324 mg Glucose (Glucose Gel 15 Gm Gel..Gram.) 15 gm PO Q15M PRN; Protocol PRN Reason: per Hypoglycemia Standing Ord. Dextrose (D10) 250 mls @ 750 mls/hr IV Q15M PRN; Protocol PRN Reason: per Hypoglycemia Standing Ord. Insulin Glargine (Insulin Glargine,Hum.Rec.Anlog 100 Unit/Ml 10 Ml Vial) 15 unit SUBCUT BEDTIME [facility] Insulin Human Lispro (Insulin Lispro 100 Unit/Ml 3 Ml Vial) 0 unit SUBCUT QIDACHS [facility]; Protocol Last Admin: 01/07/23 11:50 Dose: 6 unit Morphine Sulfate (Morphine Sulfate 4 Mg/Ml Cartridge) 4 mg IVPUSH Q4H PRN; Protocol PRN Reason: Pain, Severe (Pain Scale 8-10) Last Admin: 01/07/23 14:36 Dose: 4 mg Multivitamins/Vitamin C (Multivitamin Tablet) 1 tab PO DAILY [facility] Last Admin: 01/07/23 08:12 Dose: 1 tab Pt Own (Ibrutinib [ Imbruvica] 420 Mg Tablet) 420 mg PO DAILY [facility] Last Admin: 01/07/23 08:14 Dose: 420 mg Non-Formulary Medication (Methenamine Hippurate) 1 gm PO BID [facility] Omeprazole (Omeprazole 20 Mg Capsule.Dr) 20 mg PO DAILY@0630 [facility] Last Admin: 01/07/23 06:03 Dose: 20 mg Ondansetron HCl (Ondansetron Hcl 4 Mg/2 Ml Vial) 4 mg IVPUSH Q8H PRN PRN Reason: Nausea and Vomiting Oxycodone HCl (Oxycodone Hcl Immed Release 5 Mg Tablet) 5 mg PO Q6H PRN PRN Reason: Pain, Moderate(Pain Scale 4-7) Last Admin: 01/07/23 11:50 Dose: 5 mg Pharmacy Consult (Consult Rx Perform Med Rec) 1 each MISCELLANE ONCE PRN PRN Reason: Consult order Phenazopyridine HCl (Phenazopyridine Hcl 100 Mg Tablet) 100 mg PO BID [facility] Last Admin: 01/07/23 08:12 Dose: 100 mg Pregabalin (Pregabalin 150 Mg Capsule) 150 mg PO BID [facility] Last Admin: 01/07/23 08:13 Dose: 150 mg Senna (Sennosides 8.6 Mg Tablet) 17.2 mg PO BEDTIME PRN PRN Reason: Constipation Sodium Chloride (0.9 % Sodium Chloride Flush 3 Ml Syringe) 3 ml IVFLUSH QSHIFT [facility] Last Admin: 01/07/23 08:14 Dose: 3 ml Spironolactone (Spironolactone 25 Mg Tablet) 25 mg PO DAILY [facility]; Protocol Last Admin: 01/07/23 08:13 Dose: 25 mg Home Medications Medication Instructions Recorded Confirmed Last Taken Type citalopram 20 mg tablet 20 mg PO DAILY 07/21/20 01/03/23 04/16/22 History duloxetine 60 mg capsule,delayed 60 mg PO DAILY 07/21/20 01/03/23 04/16/22 History release spironolactone 25 mg tablet 25 mg PO DAILY 07/21/20 01/03/23 Unknown History amlodipine 10 mg tablet 10 mg PO DAILY 03/23/21 01/03/23 04/16/22 History metformin 1,000 mg tablet 1,000 mg PO BID 04/19/21 01/03/23 Unknown History carvedilol 25 mg tablet 25 mg PO BID 05/31/21 01/03/23 04/16/22 History blood sugar diagnostic (Accu-Chek #10 ea 09/04/22 12/04/22 Unknown History Guide test strips) ibrutinib 420 mg tablet (Imbruvica) 420 mg PO DAILY 10/30/22 01/03/23 Unknown History sennosides 8.6 mg tablet (senna) 17.2 mg PO BEDTIME PRN Constipation 10/30/22 01/03/23 Unknown History coenzyme Q10 100 mg capsule 100 mg PO BEDTIME 01/03/23 01/03/23 Unknown History (CoQ-10) magnesium 250 mg tablet 250 mg PO BEDTIME 01/03/23 01/03/23 Unknown History methenamine hippurate 1 gram tablet 1 g PO BID 01/03/23 01/03/23 Unknown History multivitamin 1 tab PO DAILY 01/03/23 01/03/23 Unknown History phenazopyridine 100 mg tablet 100 mg PO BID 01/03/23 01/03/23 Unknown History (Pyridium) pregabalin 150 mg capsule 150 mg PO BID 01/03/23 01/03/23 Unknown History tramadol 50 mg tablet 50 mg PO BID PRN pain 01/03/23 01/03/23 Unknown History Physical Exam Vital Signs: Vital Signs: Last Vital Signs Temp 98 F 01/07/23 07:00 Pulse 64 01/07/23 07:00 Resp 18 01/07/23 07:00 BP 123/58 L 01/07/23 07:00 Pulse Ox 92 01/07/23 07:00 O2 Del Method Room Air 01/07/23 07:00 BMI result Body Mass Index 32.5 Const: General: cooperative, healthy appearing, no acute distress, well developed and alert HEENT: Head: Yes normal to inspection, Yes normocephalic and Yes atraumatic Mouth: moist mucous membranes Eyes: General: appearance normal, both eyes and all related structures EOM: EOMs intact bilaterally Chest: Other: no audible wheezing. Resp: Other: No audible wheezing Effort & Inspection: normal respiratory effort Cardio: Other: Radial pulse palpable with no rythmic abnormalities Back/Spine/Pelvis: Cervical Spine: normal cervical lordosis Skin: General skin exam: no rashes or lesions noted Neuro: General: no focal motor deficits Extrem: Other: + impingement left hip Pain with log roll + [place] Psych: Appearance: grossly normal and well kempt Mental Status: mental status grossly normal Speech and movement: Normal speech and movement present Affect: normal affect Attitude: cooperative Results Labs 01/07/23 05:45 01/07/23 05:45 Labs: Abnormal lab results 01/06/23 01/06/23 01/07/23 Range/Units 15:58 20:59 05:45 RBC 3.44 L (4.20-5.50) X10*6/uL Hgb 9.4 L (12.0-16.0) g/dl Hct 29.2 L (37.0-47.0) % Sodium (135-145) mmol/L BUN (9-16) mg/dL POC Glucose 254 H 225 H (60-115) mg/dL Fasting Glucose (60-99) mg/dL 01/07/23 01/07/23 01/07/23 Range/Units 05:45 06:59 11:03 RBC (4.20-5.50) X10*6/uL Hgb (12.0-16.0) g/dl Hct (37.0-47.0) % Sodium 134 L (135-145) mmol/L BUN 18 H (9-16) mg/dL POC Glucose 208 H 276 H (60-115) mg/dL Fasting Glucose 208 H (60-99) mg/dL H & H 01/03/23 01/04/23 01/07/23 Range/Units 11:39 05:28 05:45 Hgb 10.1 L 9.5 L 9.4 L (12.0-16.0) g/dl Hct 31.7 L 29.4 L 29.2 L (37.0-47.0) % Coagulation 01/03/23 Range/Units 11:39 INR 1.2 H (0.9-1.1) All other labs normal. Diagnostic results Hip CT: report reviewed and image reviewed Assessment and Plan (1) Arthritis of left hip: Status: Acute Plan This is a 77 yo F iwth severe left hip OA with acute collapse and rewsulting intractable pain. I discussed with her and her care team the risks, benefits and alternatives to surgery including but not limited to the risk of pain, infection, stiffness, need for further surgery as well as potential medical complications such as blood clots, pulmonary embolism and cardiac complications. She has several risk factors but is stable and further optimization is not possible according to her care team. I explained this to her and she is willing to proceed forward with left hip arthroplasty. Time Spent With Patient Time: Total time managing care of this patient today ____ minutes. Procedures Date of Service Date of Service: 01/04/23
[2023-01-07 15:29] VITALS: BP 129/60; PULSE 63; RESP 19; TEMP 36.2; O2SAT 93
--- NOTE | 2023-01-07 15:39 | MHC.CM.PN ---
No discharge today per MD rounds. Patient may need ANGELICA if not able to ambulate. DP STR via BLS.
[2023-01-07 16:30] LABS: Glucose, Whole Blood 202 mg/dL (60-115)
[2023-01-07 19:33] VITALS: BP 149/70; PULSE 61; RESP 17; TEMP 36.4; O2SAT 93
[2023-01-07 20:39] LABS: Glucose, Whole Blood 236 mg/dL (60-115)
[2023-01-07] MEDS: Atorvastatin Calcium 80 MG TABLET PO (20:45)
[2023-01-07] MEDS: Famotidine 20 MG TABLET 40 MG PO (20:45)
[2023-01-07] MEDS: Insulin Glargine,Hum.rec.anlog 100 UNIT/ML 10 ML VIAL 15 UNIT SUBCUT (20:46)
[2023-01-08] VITALS (12 sets, daily range): BP systolic 127–170; BP diastolic 60–80; PULSE 56–73; RESP 16–20; TEMP 35.9–37.6; O2SAT 92–96
[2023-01-08] MEDS: Morphine Sulfate 4 MG/ML CARTRIDGE IVPUSH ×2 (03:00→07:48)
[2023-01-08 07:21] LABS: Glucose, Whole Blood 219 mg/dL (60-115)
[2023-01-08] MEDS: 0.9 % Sodium Chloride Flush 3 ML SYRINGE IVFLUSH ×2 (07:55→16:18)
--- NOTE | 2023-01-08 09:07 | HO.PM.IMPN ---
Subjective Subjective Date of Service: 01/08/23 Interval History: hip pain Physical Exam Vital Signs: Vital Signs: Last Vital Signs Temp 97 F 01/08/23 07:02 Pulse 65 01/08/23 07:02 Resp 18 01/08/23 07:02 BP 170/77 H 01/08/23 07:02 Pulse Ox 93 01/08/23 07:02 O2 Del Method Room Air 01/08/23 07:02 BMI result Body Mass Index 32.5 Const: General: cooperative, healthy appearing, no acute distress, well developed and alert HEENT: Head: Yes normocephalic and Yes atraumatic Mouth: moist mucous membranes Eyes: General: appearance normal, both eyes and all related structures EOM: EOMs intact bilaterally Chest: Other: no audible wheezing. Resp: Other: No audible wheezing Effort & Inspection: normal respiratory effort Cardio: Other: Radial pulse palpable with no rythmic abnormalities Back/Spine/Pelvis: Cervical Spine: normal cervical lordosis Skin: General skin exam: no rashes or lesions noted Neuro: General: no focal motor deficits Extrem: Other: + impingement left hip Pain with log roll + [place] Psych: Appearance: grossly normal and well kempt Mental Status: mental status grossly normal Speech and movement: Normal speech and movement present Affect: normal affect Attitude: cooperative Objective Data Active Medications Acetaminophen (Acetaminophen 325 Mg Tablet) 650 mg PO Q6H PRN PRN Reason: Pain, Mild (Pain Scale 1-3) Last Admin: 01/07/23 15:53 Dose: 650 mg Documented By: EDUARDA Amlodipine Besylate (Amlodipine Besylate 10 Mg Tablet) 10 mg PO DAILY [facility]; Protocol Last Admin: 01/07/23 08:13 Dose: 10 mg Documented By: DARLINE Ascorbic Acid (Ascorbic Acid 500 Mg Tablet) 1,000 mg PO DAILY [facility] Last Admin: 01/07/23 08:13 Dose: 1,000 mg Documented By: DARLINE Aspirin (Aspirin Enteric Coated 81 Mg Tablet.) 81 mg PO DAILY [facility] Last Admin: 01/07/23 08:12 Dose: 81 mg Documented By: DARLINE Atorvastatin Calcium (Atorvastatin Calcium 80 Mg Tablet) 80 mg PO BEDTIME [facility] Last Admin: 01/07/23 20:45 Dose: 80 mg Documented By: EDUARDA Carvedilol (Carvedilol 25 Mg Tablet) 25 mg PO BID [facility]; Protocol Last Admin: 01/07/23 20:45 Dose: 25 mg Documented By: EDUARDA Docusate Sodium (Docusate Sodium 100 Mg Capsule) 100 mg PO DAILY PRN PRN Reason: Constipation Last Admin: 01/07/23 11:51 Dose: 100 mg Documented By: DARLINE Duloxetine HCl (Duloxetine Hcl 60 Mg Capsule.) 60 mg PO DAILY [facility] Last Admin: 01/07/23 08:13 Dose: 60 mg Documented By: DARLINE Enoxaparin Sodium (Enoxaparin Sodium 40 Mg/0.4 Ml Syringe) 40 mg SUBCUT Q24H [facility] Last Admin: 01/07/23 15:51 Dose: Not Given Documented By: EDUARDA Non-Admin Reason: going for surgery tomorrow Escitalopram Oxalate (Escitalopram Oxalate 10 Mg Tablet) 10 mg PO DAILY [facility] Last Admin: 01/07/23 08:12 Dose: 10 mg Documented By: DARLINE Famotidine (Famotidine 20 Mg Tablet) 40 mg PO BEDTIME [facility] Last Admin: 01/07/23 20:45 Dose: 40 mg Documented By: EDUARDA Ferrous Sulfate (Ferrous Sulfate 324 Mg Tablet.) 324 mg PO DAILY [facility] Last Admin: 01/07/23 08:12 Dose: 324 mg Documented By: DARLINE Glucose (Glucose Gel 15 Gm Gel..Gram.) 15 gm PO Q15M PRN; Protocol PRN Reason: per Hypoglycemia Standing Ord. Dextrose (D10) 250 mls @ 750 mls/hr IV Q15M PRN; Protocol PRN Reason: per Hypoglycemia Standing Ord. Insulin Glargine (Insulin Glargine,Hum.Rec.Anlog 100 Unit/Ml 10 Ml Vial) 15 unit SUBCUT BEDTIME [facility] Last Admin: 01/07/23 20:46 Dose: 15 unit Documented By: EDUARDA Insulin Human Lispro (Insulin Lispro 100 Unit/Ml 3 Ml Vial) 0 unit SUBCUT QIDACHS [facility]; Protocol Last Admin: 01/08/23 07:40 Dose: Not Given Documented By: BE Non-Admin Reason: NPO Morphine Sulfate (Morphine Sulfate 4 Mg/Ml Cartridge) 4 mg IVPUSH Q4H PRN; Protocol PRN Reason: Pain, Severe (Pain Scale 8-10) Last Admin: 01/08/23 07:48 Dose: 4 mg Documented By: BE Multivitamins/Vitamin C (Multivitamin Tablet) 1 tab PO DAILY [facility] Last Admin: 01/07/23 08:12 Dose: 1 tab Documented By: DARLINE Pt Own (Ibrutinib [ Imbruvica] 420 Mg Tablet) 420 mg PO DAILY [facility] Last Admin: 01/07/23 08:14 Dose: 420 mg Documented By: DARLINE Omeprazole (Omeprazole 20 Mg Capsule.Dr) 20 mg PO DAILY@0630 [facility] Last Admin: 01/08/23 05:39 Dose: Not Given Documented By: GRACIE Non-Admin Reason: NPO Ondansetron HCl (Ondansetron Hcl 4 Mg/2 Ml Vial) 4 mg IVPUSH Q8H PRN PRN Reason: Nausea and Vomiting Oxycodone HCl (Oxycodone Hcl Immed Release 5 Mg Tablet) 5 mg PO Q6H PRN PRN Reason: Pain, Moderate(Pain Scale 4-7) Last Admin: 01/07/23 18:44 Dose: 5 mg Documented By: EDUARDA Pharmacy Consult (Consult Rx Perform Med Rec) 1 each MISCELLANE ONCE PRN PRN Reason: Consult order Phenazopyridine HCl (Phenazopyridine Hcl 100 Mg Tablet) 100 mg PO BID [facility] Last Admin: 01/07/23 20:45 Dose: 100 mg Documented By: EDUARDA Pregabalin (Pregabalin 150 Mg Capsule) 150 mg PO BID [facility] Last Admin: 01/07/23 20:45 Dose: 150 mg Documented By: EDUARDA Senna (Sennosides 8.6 Mg Tablet) 17.2 mg PO BEDTIME PRN PRN Reason: Constipation Sodium Chloride (0.9 % Sodium Chloride Flush 3 Ml Syringe) 3 ml IVFLUSH QSHIFT [facility] Last Admin: 01/08/23 07:55 Dose: 3 ml Documented By: BE Spironolactone (Spironolactone 25 Mg Tablet) 25 mg PO DAILY [facility]; Protocol Last Admin: 01/07/23 08:13 Dose: 25 mg Documented By: DARLINE Labs 01/07/23 05:45 01/07/23 05:45 Labs: Laboratory Results - last 24 hr 01/07/23 01/07/23 01/07/23 05:45 11:03 14:24 Anion Gap 12 Estim Creat Clear Calc 55.3 Estimated GFR 59 POC Glucose 276 H Fasting Glucose 208 H Calcium 9.5 D Blood Type O Positive Antibody Screen NEGATIVE 01/07/23 01/07/23 01/08/23 16:20 19:36 07:04 Anion Gap Estim Creat Clear Calc Estimated GFR POC Glucose 202 H 236 H 219 H Fasting Glucose Calcium Blood Type Antibody Screen Microbiology Microbiology Results: Microbiology 01/03/23 Unknown Urine Culture - Final Urine Catheterized - Straight Catheter Achromobacter xylosoxidans Yessica parapsilosis Assessment and Plan (1) Osteoarthritis: Status: Acute Plan 77-year-old female with pertinent history of recurrent UTI, chronic suprapubic catheter, [id number] diabetes mellitus, history of CVA, mood disorder, sleep apnea on CPAP, essential hypertension, chronic opioid use. presented with hip pain left hip pain, mostly due to severe OA complicated by Subchondral Insufficiency fracture left hip ortho appreciated, WBAT, PT (recommending STR) , pain control, unable to ambulate at all with conservative care. benefits of more urgent ANGELICA inpatient apear to outweigh risks. pain still uncontrolled plan for ANGELICA today Recurrent UTI/neurogenic bladder Positive UA. Seen by ID who feels patient likely with colonization. Not recommending treatment at this time Suprapubic catheter in place [id number] type 2 diabetes insulin HTN amlodipine aldactone mood disorder cymbalta GERD ppi DVT prophylaxis-Lovenox Full code reason for continued hospitalization: pain control Time Spent With Patient Time: Total time managing care of this patient today ____ minutes. Quality Stroke Does the patient have a stroke diagnosis?: No VTE Prior VTE?: No VTE Risk Level:: Medical - moderate - high VTE Device Contraindication: Treatment Not Indicated VTE Drug Contraindication: N/A - Med Ordered
[2023-01-08] MEDS: DULoxetine HCl 60 MG CAPSULE.DR PO (10:35)
[2023-01-08] MEDS: Escitalopram Oxalate 10 MG TABLET PO (10:35)
[2023-01-08] MEDS: Pregabalin 150 MG CAPSULE PO ×2 (10:35→20:45)
[2023-01-08] MEDS: amLODIPine Besylate 10 MG TABLET PO (10:35)
[2023-01-08] MEDS: carvediloL 25 MG TABLET PO ×2 (10:35→20:46)
[2023-01-08] MEDS: vancomycin HCL 1,500 MG in 0.9 % Sodium Chloride 500 ML 333.33 MG IV ×2 (11:09→22:30)
[2023-01-08] MEDS: oxyCODONE HCl ER 10 MG TAB.ER.12H PO ×2 (11:24→20:46)
[2023-01-08] MEDS: Gabapentin 600 MG TABLET PO (11:25)
[2023-01-08] MEDS: Acetaminophen 325 MG TABLET 975 MG PO (11:25)
--- NOTE | 2023-01-08 11:30 | MHC.SHP ---
Pre-Procedural Eval Section A Date of Service: 01/08/23 The patient is an INPATIENT: Yes Changes since office visit: No Cold of Flu in the past 2 weeks, No New Medical Problems, No Changes in Medication and No Patient answered all questions The History & Physical has been completed within 30 days and I have reviewed it.: Yes Section B Chief Complaint: hip pain Allergies: Allergies Allergy/AdvReac Type Severity Reaction Status Date / Time amoxicillin [AMOXICILLIN] Allergy Severe stroke, Verified 12/17/22 10:12 blood clots ciprofloxacin [From CIPRO] Allergy Severe ANAPHYLAXIS Verified 12/17/22 10:12 Iodinated Contrast Media Allergy Severe HIVES Verified 12/17/22 10:12 [IV DYE, IODINE CONTAINING CONTRAST ] levofloxacin Allergy Severe Anaphylaxis Verified 12/17/22 10:12 liraglutide Allergy Severe Headache Verified 12/17/22 10:12 Penicillins Allergy Severe stroke, Verified 12/17/22 10:12 blood clots phenazopyridine [Pyridium] Allergy Severe Anaphylaxis Verified 12/17/22 10:12 FREYA Inhibitors Allergy Intermediate Cough Verified 12/17/22 10:12 ARB-Angiotensin Receptor Allergy Intermediate Cough Verified 12/17/22 10:12 Antagonist atorvastatin Allergy Intermediate Shortness Verified 12/17/22 10:12 of Breath cefpodoxime Allergy Intermediate Dizziness, Verified 12/17/22 10:12 nausea celecoxib [From CELEBREX] Allergy Intermediate HIVES Verified 12/17/22 10:12 doxazosin Allergy Intermediate Shortness Verified 12/17/22 10:12 of Breath fluticasone [Advair Diskus] Allergy Intermediate Anxiety Verified 12/17/22 10:12 gabapentin [From Neurontin] Allergy Intermediate Headache Verified 12/17/22 10:12 hydralazine Allergy Intermediate Shortness Verified 12/17/22 10:12 of Breath latex Allergy Intermediate Hives Verified 12/17/22 10:12 linezolid Allergy Intermediate Nausea and Verified 12/17/22 10:12 Vomiting meloxicam Allergy Intermediate Unknown Verified 12/17/22 10:12 salmeterol [Advair Diskus] Allergy Intermediate Anxiety Verified 12/17/22 10:12 Tetanus Vaccines and Toxoid Allergy Intermediate Swelling Verified 12/17/22 10:12 torsemide Allergy Intermediate Shortness Verified 12/17/22 10:12 of Breath cephalexin [Keflex] Allergy Mild Nausea Verified 12/17/22 10:12 Plan I have reviewed the history and physical and performed a pertinent physical examination on my patient. No changes have occurred unless specified. Time Spent With Patient Time: Total time managing care of this patient today ____ minutes.
--- NOTE | 2023-01-08 14:11 | P.BOP_ITS ---
Brief Operative Note Date of Service: 01/08/23 Pre-op diagnosis: Left hip OA with subchondral fracture Post-op diagnosis: same Procedure: Left ANGELICA Implants: Sprague Trident2 #50/10 deg lip Ernestina Accolade2 #6 137 deg with +4/32 ceramic femoral head Surgeon: Julián Rueda MD Anesthesia: GETA and local Was an Residential Service Technician used for this Procedure?: Yes Residential Service Technician: Mary Kate Alvarado Estimated blood loss (mL): 250 IV fluids (mL): 1,000 Pathology: other Condition: stable Disposition: PACU
[2023-01-08] MEDS: oxyCODONE HCl Immed Release 5 MG TABLET PO ×2 (14:58→18:19)
[2023-01-08 17:33] LABS: Glucose, Whole Blood 322 mg/dL (60-115)
[2023-01-08] MEDS: Insulin Lispro 100 UNIT/ML 3 ML VIAL SUBCUT ×2 (17:49→20:43)
[2023-01-08] MEDS: Acetaminophen 325 MG TABLET 650 MG PO (18:19)
[2023-01-08] MEDS: Lactated Ringers 1,000 ML 100 ML IVCONT (18:21)
[2023-01-08 20:14] LABS: Glucose, Whole Blood 306 mg/dL (60-115)
[2023-01-08] MEDS: Insulin Glargine,Hum.rec.anlog 100 UNIT/ML 10 ML VIAL 15 UNIT SUBCUT (20:44)
[2023-01-08] MEDS: Phenazopyridine HCL 100 MG TABLET PO (20:45)
[2023-01-08] MEDS: Docusate Sodium 100 MG CAPSULE PO (20:45)
[2023-01-08] MEDS: Atorvastatin Calcium 80 MG TABLET PO (20:46)
[2023-01-08] MEDS: Celecoxib 200 MG CAPSULE PO (20:46)
[2023-01-08] MEDS: Famotidine 20 MG TABLET 40 MG PO (20:47)
[2023-01-09] VITALS (9 sets, daily range): BP systolic 109–174; BP diastolic 54–72; PULSE 60–71; RESP 16–20; TEMP 36–37.1; O2SAT 93–96
[2023-01-09] MEDS: HYDROmorphone HCl 0.5 MG/0.5 ML SYRINGE 0.25 MG IVPUSH ×3 (04:15→21:46)
[2023-01-09] MEDS: Lactated Ringers 1,000 ML 100 ML IVCONT ×2 (04:17→14:31)
[2023-01-09] MEDS: Omeprazole 20 MG CAPSULE.DR PO (06:29)
[2023-01-09 06:40] LABS: MANUAL DIFF FLAG NO
[2023-01-09 06:46] LABS: Hematocrit 24.9 % (37.0-47.0); Mean Corpuscular HGB Conc 32.1 g/dl (31.0-35.0); Mean Corpuscular Hemoglobin 26.8 pg (27.0-33.0); Mean Corpuscular Volume 83.6 fL (80.0-98.0); Platelet Count 184 X10*3/uL (160-400); Red Blood Count 2.98 X10*6/uL (4.20-5.50); Red Cell Distribution Width 14.7 % (11.0-16.0); White Blood Count 10.3 X10*3/uL (4.8-10.8)
[2023-01-09 06:47] LABS: Basophils Percent Auto 0.1 % (0-2); Hematocrit 25.6 % (37.0-47.0); Hemoglobin 8.1 g/dl (12.0-16.0); Imm Gran Abs Auto 0.06 X10*3/uL (0.00-0.03); Imm Gran Pct Auto 0.6 % (0.0-0.4); Lymphocytes Absolute Auto 1.1 X10*3/uL (1.2-4.9); Mean Corpuscular HGB Conc 31.6 g/dl (31.0-35.0); Mean Corpuscular Hemoglobin 26.6 pg (27.0-33.0); Mean Corpuscular Volume 83.9 fL (80.0-98.0); Monocytes Absolute Auto 0.6 X10*3/uL (0.1-1.2); Monocytes Percent Auto 6.1 % (2-11); Neutrophils Absolute Auto 8.1 x10*3/uL (2.0-8.3); Neutrophils Percent Auto 82.2 % (45-73); Platelet Count 188 X10*3/uL (160-400); Red Blood Count 3.05 X10*6/uL (4.20-5.50); Red Cell Distribution Width 14.6 % (11.0-16.0); White Blood Count 9.8 X10*3/uL (4.8-10.8)
--- NOTE | 2023-01-09 07:01 | HO.POSTANES ---
Post Anesthesia Evaluation Post Anesthesia Evaluation Vital Signs: Vital Signs Temp Pulse Resp BP Pulse Ox O2 Del Method 01/09/23 03:00 96.8 F 61 16 122/60 95 Room Air 01/08/23 23:00 98.3 F 56 18 127/60 94 Room Air 01/08/23 19:31 96.6 F L 67 16 141/64 H 95 Room Air Anesthesia: General Mental Status: Awake Pain Control: Satisfactory (difficulty controlling pain) Nausea/Vomiting: None Hydration: Adequate Anesthesia-Related Issues: No Anes. Related Issues
--- NOTE | 2023-01-09 07:28 | PM.PNORT ---
Subjective Subjective Date of Service: 01/09/23 Interval history: POD1 s/p RTHA. Agusto is resting comfortably in bed. No overnight events. Pain is managed. No additional complaints. Physical Exam Vital Signs: Vital Signs: Last Vital Signs Temp 98.0 F 01/09/23 07:00 Pulse 69 01/09/23 07:00 Resp 16 01/09/23 07:00 BP 135/63 01/09/23 07:00 Pulse Ox 93 01/09/23 07:00 O2 Del Method Room Air 01/09/23 07:00 O2 Flow Rate 2 01/08/23 15:05 BMI result Body Mass Index 32.5 Const: General: cooperative, healthy appearing and no acute distress Resp: Effort & Inspection: normal respiratory effort and able to speak in complete sentences Cardio: Rate: regular rate Peripheral pulses: Peripheral pulses 2+ throughout GI: Palpation (GI): Soft to palpation Skin: Lesions: no lesions Rashes: no rashes Extrem: Other: Right hip Aquacel is c/d/i. Able to dorsi/plantar flex. NVI. Procedures Date of Service Date of Service: 01/09/23 Progress Note: A&P Assessment and plan (1) Subchondral insufficiency fracture of condyle of right femur with delayed healing: Status: Acute (2) Status post total hip replacement, right: Status: Acute Plan Continue pain mgmnt Begin Lovenox for dvt ppx begin PT for RTHA - WBAT Dispo planning-Pending PT eval, pain mgmnt Time Spent With Patient Time: Total time managing care of this patient today ____ minutes. Quality Stroke Does the patient have a stroke diagnosis?: No VTE Prior VTE?: No VTE Risk Level:: Medical - moderate - high VTE Device Contraindication: Treatment Not Indicated VTE Drug Contraindication: N/A - Med Ordered
[2023-01-09 07:34] LABS: Glucose, Whole Blood 247 mg/dL (60-115)
[2023-01-09 07:52] LABS: Anion Gap 13 (12-20); Blood Urea Nitrogen 26 mg/dL (9-16); Calcium 8.8 mg/dL (8.4-10.2); Carbon Dioxide 23 mmol/L (22-29); Chloride 101 mmol/L (96-108); Creatinine Clr Calc Pharmacy 47.9; Estimated Glomerular Filt Rate 50; Glucose Fasting 240 mg/dL (60-99); Potassium 4.3 mmol/L (3.3-5.1); Sodium 133 mmol/L (135-145)
[2023-01-09] MEDS: Celecoxib 200 MG CAPSULE PO ×2 (08:08→20:45)
[2023-01-09] MEDS: carvediloL 25 MG TABLET PO ×2 (08:08→20:47)
[2023-01-09] MEDS: Aspirin Enteric Coated 81 MG TABLET.DR PO (08:08)
[2023-01-09] MEDS: Pregabalin 150 MG CAPSULE PO ×2 (08:08→20:48)
[2023-01-09] MEDS: Multivitamin TABLET 1 TAB PO (08:09)
[2023-01-09] MEDS: Ferrous Sulfate 324 MG TABLET.DR PO (08:09)
[2023-01-09] MEDS: amLODIPine Besylate 10 MG TABLET PO (08:09)
[2023-01-09] MEDS: oxyCODONE HCl ER 10 MG TAB.ER.12H PO ×2 (08:09→20:47)
[2023-01-09] MEDS: oxyCODONE HCl Immed Release 5 MG TABLET PO ×3 (08:09→19:28)
[2023-01-09] MEDS: Phenazopyridine HCL 100 MG TABLET PO ×2 (08:09→20:48)
[2023-01-09] MEDS: DULoxetine HCl 60 MG CAPSULE.DR PO (08:09)
[2023-01-09] MEDS: Escitalopram Oxalate 10 MG TABLET PO (08:10)
[2023-01-09] MEDS: Docusate Sodium 100 MG CAPSULE PO ×2 (08:10→20:48)
[2023-01-09] MEDS: Insulin Lispro 100 UNIT/ML 3 ML VIAL SUBCUT ×4 (08:10→20:58)
[2023-01-09] MEDS: Spironolactone 25 MG TABLET PO (08:10)
[2023-01-09] MEDS: Ascorbic Acid 500 MG TABLET 1000 MG PO (08:18)
--- NOTE | 2023-01-09 10:10 | P.CNUR_ITS ---
History of Present Illness Consult details Consult date: 01/09/23 Narrative: Consulting complaint :? Suprapubic tube change Kaitlin is a pleasant female.? Well known to Urology. Prolonged history of complicated UTI, neurogenic bladder with incomplete emptying, multi resistant disease. Has been managed with suprapubic tube for bladder emptying Significant past medical history with diabetes, and other immunosuppression issues Admitted through emergency department with right hip pain - joint effusion Suprapubic tube changed at bedside Clean technique used 7 cc in balloon Clear drainage Review of Systems Constitutional: Constitutional: Reports as per HPI and Reports no additional constitutional complaints Cardiovascular: Cardiovascular: Reports as per HPI and Reports no additional cardiovascular complaints Respiratory: Respiratory: Reports as per HPI and Reports no additional respiratory complaints Gastrointestinal: Gastrointestinal: Reports as per HPI and Reports no additional gastrointestinal complaints Genitourinary: Genitourinary: Reports as per HPI Musculoskeletal: Musculoskeletal: Reports no additional musculoskeletal complaints and Reports as per HPI Neurologic: Reports system reviewed and no additional complaints, except as documented and Reports as per HPI PMFSH Past Medical History Medical History Allergy to multiple antibiotics Anemia Arthritis CLL (chronic lymphocytic leukemia) CLL (chronic lymphocytic leukemia) Depression Diabetes mellitus Diabetes with neurologic complications Fibromyalgia History of bilateral breast cancer History of blood transfusion History of CVA (cerebrovascular accident) History of numbness Hypercholesterolemia Hypertension Morbid obesity PONV (postoperative nausea and vomiting) Seasonal allergies Self-catheterizes urinary bladder Sleep apnea Type 2 diabetes mellitus with unspecified complications Urinary retention with incomplete bladder emptying Wears dentures Family History Family History Mother Breast cancer Father Heart disease Father Lung cancer Mother Colon cancer Brother Pancreatic cancer Surgical History Surgical History History of back surgery History of biopsy of bladder History of bladder repair surgery History of esophagogastroduodenoscopy (EGD) History of suprapubic catheter History of total hysterectomy Hx of colonoscopy S/P Botox injection S/P breast biopsy, right S/P left breast biopsy Social History Social History Household Members: Spouse Housing: House Are you a primary director day care center to a significant other at home: No Do you presently have visiting nurse or other home services: Yes Alcohol intake: never Patient Tobacco Use Status: Never used Tobacco Advance Directives Date on File: 04/11/22 service: No Current occupational status: retired Meds Allergies Allergy/AdvReac Type Severity Reaction Status Date / Time amoxicillin [AMOXICILLIN] Allergy Severe stroke, Verified 12/17/22 10:12 blood clots ciprofloxacin [From CIPRO] Allergy Severe ANAPHYLAXIS Verified 12/17/22 10:12 Iodinated Contrast Media Allergy Severe HIVES Verified 12/17/22 10:12 [IV DYE, IODINE CONTAINING CONTRAST ] levofloxacin Allergy Severe Anaphylaxis Verified 12/17/22 10:12 liraglutide Allergy Severe Headache Verified 12/17/22 10:12 Penicillins Allergy Severe stroke, Verified 12/17/22 10:12 blood clots phenazopyridine [Pyridium] Allergy Severe Anaphylaxis Verified 12/17/22 10:12 FREYA Inhibitors Allergy Intermediate Cough Verified 12/17/22 10:12 ARB-Angiotensin Receptor Allergy Intermediate Cough Verified 12/17/22 10:12 Antagonist atorvastatin Allergy Intermediate Shortness Verified 12/17/22 10:12 of Breath cefpodoxime Allergy Intermediate Dizziness, Verified 12/17/22 10:12 nausea celecoxib [From CELEBREX] Allergy Intermediate HIVES Verified 12/17/22 10:12 doxazosin Allergy Intermediate Shortness Verified 12/17/22 10:12 of Breath fluticasone [Advair Diskus] Allergy Intermediate Anxiety Verified 12/17/22 10:12 gabapentin [From Neurontin] Allergy Intermediate Headache Verified 12/17/22 10:12 hydralazine Allergy Intermediate Shortness Verified 12/17/22 10:12 of Breath latex Allergy Intermediate Hives Verified 12/17/22 10:12 linezolid Allergy Intermediate Nausea and Verified 12/17/22 10:12 Vomiting meloxicam Allergy Intermediate Unknown Verified 12/17/22 10:12 salmeterol [Advair Diskus] Allergy Intermediate Anxiety Verified 12/17/22 10:12 Tetanus Vaccines and Toxoid Allergy Intermediate Swelling Verified 12/17/22 10:12 torsemide Allergy Intermediate Shortness Verified 12/17/22 10:12 of Breath cephalexin [Keflex] Allergy Mild Nausea Verified 12/17/22 10:12 Active Medications: Current Medications Acetaminophen (Acetaminophen 325 Mg Tablet) 650 mg PO Q6H PRN PRN Reason: Pain, Mild (Pain Scale 1-3) Last Admin: 01/08/23 18:19 Dose: 650 mg Amlodipine Besylate (Amlodipine Besylate 10 Mg Tablet) 10 mg PO DAILY [facility]; Protocol Last Admin: 01/09/23 08:09 Dose: 10 mg Ascorbic Acid (Ascorbic Acid 500 Mg Tablet) 1,000 mg PO DAILY [facility] Last Admin: 01/09/23 08:18 Dose: 1,000 mg Aspirin (Aspirin Enteric Coated 81 Mg Tablet.) 81 mg PO DAILY [facility] Last Admin: 01/09/23 08:08 Dose: 81 mg Atorvastatin Calcium (Atorvastatin Calcium 80 Mg Tablet) 80 mg PO BEDTIME [facility] Last Admin: 01/08/23 20:46 Dose: 80 mg Carvedilol (Carvedilol 25 Mg Tablet) 25 mg PO BID [facility]; Protocol Last Admin: 01/09/23 08:08 Dose: 25 mg Celecoxib (Celecoxib 200 Mg Capsule) 200 mg PO BID [facility] Last Admin: 01/09/23 08:08 Dose: 200 mg Docusate Sodium (Docusate Sodium 100 Mg Capsule) 100 mg PO BID [facility] Last Admin: 01/09/23 08:10 Dose: 100 mg Duloxetine HCl (Duloxetine Hcl 60 Mg Capsule.) 60 mg PO DAILY [facility] Last Admin: 01/09/23 08:09 Dose: 60 mg Enoxaparin Sodium (Enoxaparin Sodium 40 Mg/0.4 Ml Syringe) 40 mg SUBCUT Q24H [facility] Last Admin: 01/08/23 17:48 Dose: Not Given Escitalopram Oxalate (Escitalopram Oxalate 10 Mg Tablet) 10 mg PO DAILY [facility] Last Admin: 01/09/23 08:10 Dose: 10 mg Famotidine (Famotidine 20 Mg Tablet) 40 mg PO BEDTIME [facility] Last Admin: 01/08/23 20:47 Dose: 40 mg Ferrous Sulfate (Ferrous Sulfate 324 Mg Tablet.) 324 mg PO DAILY [facility] Last Admin: 01/09/23 08:09 Dose: 324 mg Glucose (Glucose Gel 15 Gm Gel..Gram.) 15 gm PO Q15M PRN; Protocol PRN Reason: per Hypoglycemia Standing Ord. Hydromorphone HCl (Hydromorphone Hcl 0.5 Mg/0.5 Ml Syringe) 0.25 mg IVPUSH Q4H PRN; Protocol PRN Reason: Pain, Severe (Pain Scale 7-10) Last Admin: 01/09/23 04:15 Dose: 0.25 mg Dextrose (D10) 250 mls @ 750 mls/hr IV Q15M PRN; Protocol PRN Reason: per Hypoglycemia Standing Ord. Lactated Ringer's (Lr) 1,000 mls @ 100 mls/hr IVCONT .Q10H [facility] Last Admin: 01/09/23 04:17 Dose: 100 mls/hr Vancomycin HCl 1,250 mg/ (Sodium Chloride) 250 mls @ 166.667 mls/hr IV Q12H [facility] Insulin Glargine (Insulin Glargine,Hum.Rec.Anlog 100 Unit/Ml 10 Ml Vial) 15 unit SUBCUT BEDTIME [facility] Last Admin: 01/08/23 20:44 Dose: 15 unit Insulin Human Lispro (Insulin Lispro 100 Unit/Ml 3 Ml Vial) 0 unit SUBCUT QIDACHS [facility]; Protocol Last Admin: 01/09/23 08:10 Dose: 4 unit Multivitamins/Vitamin C (Multivitamin Tablet) 1 tab PO DAILY [facility] Last Admin: 01/09/23 08:09 Dose: 1 tab Pt Own (Ibrutinib [ Imbruvica] 420 Mg Tablet) 420 mg PO DAILY [facility] Last Admin: 01/09/23 08:11 Dose: 420 mg Omeprazole (Omeprazole 20 Mg Capsule.Dr) 20 mg PO DAILY@0630 [facility] Last Admin: 01/09/23 06:29 Dose: 20 mg Ondansetron HCl (Ondansetron Hcl 4 Mg/2 Ml Vial) 4 mg IVPUSH Q8H PRN PRN Reason: Nausea and Vomiting Oxycodone HCl (Oxycodone Hcl Immed Release 5 Mg Tablet) 5 mg PO Q4H PRN PRN Reason: Pain, Moderate(Pain Scale 4-6) Last Admin: 01/09/23 08:09 Dose: 5 mg Oxycodone HCl (Oxycodone Hcl Er 10 Mg Tab.Er.12h) 10 mg PO BID [facility] Last Admin: 01/09/23 08:09 Dose: 10 mg Pharmacy Consult (Consult Rx Perform Med Rec) 1 each MISCELLANE ONCE PRN PRN Reason: Consult order Pharmacy Consult (Consult Rx Vancomycin Dosing) 1 each MISCELLANE DAILY PRN PRN Reason: Consult order Phenazopyridine HCl (Phenazopyridine Hcl 100 Mg Tablet) 100 mg PO BID [facility] Last Admin: 01/09/23 08:09 Dose: 100 mg Pregabalin (Pregabalin 150 Mg Capsule) 150 mg PO BID [facility] Last Admin: 01/09/23 08:08 Dose: 150 mg Sodium Chloride (0.9 % Sodium Chloride Flush 3 Ml Syringe) 3 ml IVFLUSH [facility] Last Admin: 01/09/23 08:11 Dose: Not Given Sodium Chloride (0.9 % Sodium Chloride Flush 3 Ml Syringe) 3 ml IVFLUSH [facility] Last Admin: 01/09/23 08:11 Dose: Not Given Spironolactone (Spironolactone 25 Mg Tablet) 25 mg PO DAILY [facility]; Protocol Last Admin: 01/09/23 08:10 Dose: 25 mg Home Medications Medication Instructions Recorded Confirmed Last Taken Type citalopram 20 mg tablet 20 mg PO DAILY 07/21/20 01/03/23 04/16/22 History duloxetine 60 mg capsule,delayed 60 mg PO DAILY 07/21/20 01/03/23 04/16/22 History release spironolactone 25 mg tablet 25 mg PO DAILY 07/21/20 01/03/23 Unknown History amlodipine 10 mg tablet 10 mg PO DAILY 03/23/21 01/03/23 04/16/22 History metformin 1,000 mg tablet 1,000 mg PO BID 04/19/21 01/03/23 Unknown History carvedilol 25 mg tablet 25 mg PO BID 05/31/21 01/03/23 04/16/22 History blood sugar diagnostic (Accu-Chek #10 ea 09/04/22 12/04/22 Unknown History Guide test strips) ibrutinib 420 mg tablet (Imbruvica) 420 mg PO DAILY 10/30/22 01/03/23 Unknown History sennosides 8.6 mg tablet (senna) 17.2 mg PO BEDTIME PRN Constipation 10/30/22 01/03/23 Unknown History coenzyme Q10 100 mg capsule 100 mg PO BEDTIME 01/03/23 01/03/23 Unknown History (CoQ-10) magnesium 250 mg tablet 250 mg PO BEDTIME 01/03/23 01/03/23 Unknown History methenamine hippurate 1 gram tablet 1 g PO BID 01/03/23 01/03/23 Unknown History multivitamin 1 tab PO DAILY 01/03/23 01/03/23 Unknown History phenazopyridine 100 mg tablet 100 mg PO BID 01/03/23 01/03/23 Unknown History (Pyridium) pregabalin 150 mg capsule 150 mg PO BID 01/03/23 01/03/23 Unknown History tramadol 50 mg tablet 50 mg PO BID PRN pain 01/03/23 01/03/23 Unknown History Physical Exam Vital Signs: Vital Signs: Last Vital Signs Temp 98.0 F 01/09/23 07:00 Pulse 69 01/09/23 08:58 Resp 16 01/09/23 07:00 BP 135/63 01/09/23 08:58 Pulse Ox 93 01/09/23 08:58 O2 Del Method Room Air 01/09/23 07:00 O2 Flow Rate 2 01/08/23 15:05 BMI result Body Mass Index 32.5 Const: General: cooperative, healthy appearing, comfortable and no acute distress Orientation/consciousness: patient oriented x3 HEENT: Face and sinus: Yes normal facial exam Mouth: moist mucous membranes Neck: Neck: Yes normal visual inspection, Yes full ROM and Yes trachea midline Chest: Chest palpation & inspection: normal inspection of the chest Resp: Effort & Inspection: normal respiratory effort, able to speak in complete sentences and no respiratory distress GI: Inspection: Yes normal to inspection Back/Spine/Pelvis: Cervical Spine: normal cervical lordosis Thoracic/Lumbar Spine: thoracic and lumbar spine normal to inspection Skin: General skin exam: no rashes or lesions noted Neuro: General: patient oriented x3, tone normal and moves all extremities Extrem: General: Yes normal to inspection and Yes capillary refill normal Results Labs 01/09/23 05:59 01/09/23 05:59 Labs: Abnormal lab results 01/08/23 01/08/23 01/09/23 Range/Units 17:21 20:08 05:59 RBC 3.05 L (4.20-5.50) X10*6/uL Hgb 8.1 L (12.0-16.0) g/dl Hct 25.6 L (37.0-47.0) % MCH 26.6 L (27.0-33.0) pg Immature Gran % (Auto) 0.6 H (0.0-0.4) % Neut % (Auto) 82.2 H (45-73) % Lymph % (Auto) 11.0 L (20-40) % Lymph # (Auto) 1.1 L (1.2-4.9) X10*3/uL Abs Immat Gran (auto) 0.06 H (0.00-0.03) X10*3/uL Sodium (135-145) mmol/L BUN (9-16) mg/dL POC Glucose 322 H 306 H (60-115) mg/dL Fasting Glucose (60-99) mg/dL 01/09/23 01/09/23 01/09/23 Range/Units 05:59 05:59 07:17 RBC 2.98 L (4.20-5.50) X10*6/uL Hgb 8.0 L (12.0-16.0) g/dl Hct 24.9 L (37.0-47.0) % MCH 26.8 L (27.0-33.0) pg Immature Gran % (Auto) (0.0-0.4) % Neut % (Auto) (45-73) % Lymph % (Auto) (20-40) % Lymph # (Auto) (1.2-4.9) X10*3/uL Abs Immat Gran (auto) (0.00-0.03) X10*3/uL Sodium 133 L (135-145) mmol/L BUN 26 H (9-16) mg/dL POC Glucose 247 H (60-115) mg/dL Fasting Glucose 240 H (60-99) mg/dL Short CBC 01/09/23 01/09/23 Range/Units 05:59 05:59 WBC 9.8 10.3 (4.8-10.8) X10*3/uL Hgb 8.1 L 8.0 L (12.0-16.0) g/dl Hct 25.6 L 24.9 L (37.0-47.0) % Plt Count 188 184 (160-400) X10*3/uL BMP 01/09/23 05:59 Sodium 133 L Potassium 4.3 Chloride 101 Carbon Dioxide 23 BUN 26 H Creatinine 1.06 Calcium 8.8 D Urine 01/03/23 Range/Units 11:55 Urine Color Yellow Urine Appearance Hazy Urine pH 7.0 (5.0-9.0) Ur Specific [place] 1.010 (1.005-1.025) Urine Protein Trace (Neg-Trace) mg/dL Urine Glucose (UA) Negative (Negative) mg/dL All other labs normal. Assessment and Plan (1) Neurogenic urinary bladder disorder: Status: Acute Plan Imaging for possible colovesical fistula Time Spent With Patient Time: Total time managing care of this patient today ____ minutes. Procedures Date of Service Date of Service: 01/08/23
[2023-01-09 10:18] LABS: Vancomycin Random 20.2 mcg/mL (15-20)
--- NOTE | 2023-01-09 10:34 | PHA.PROG ---
Admission Date/Time: January 06, 2023 08:45 Indication: OTHER Weight in k.183 kg Adjusted body weight in Kg: [place] body weight in Kg: Obesity Dosing Indication % IBW: Serum Creatinine - Last 168 Hours 01/03/23 01/04/23 01/07/23 11:39 05:28 05:45 Creatinine 0.97 0.91 0.92 01/09/23 05:59 Creatinine 1.06 Estimated CrCl and GFR - Last 168 Hours 01/03/23 01/04/23 01/07/23 11:39 05:28 05:45 Estim Creat Clear Calc 52.4 55.8 55.3 Estimated GFR 56 > 60 59 01/09/23 05:59 Estim Creat Clear Calc 47.9 Estimated GFR 50 Vancomycin Loading Dose: N/A Current Vancomycin Dosing Regimen: 1250 Q24H Vancomycin Monitoring using AUC goal of 400 - 600 range with trough as surrogate marker: uc 508, trough 15.2 Date and Time for next Vancomycin Level to be drawn: 01/11 Pharmacist Comments on Vancomycin Plan: Vancomycin dosing will take advantage of [employer] as a clinical decision support tool that uses Bayesian modeling to calculate individual patient's pharmacokinetic parameters and forecast the patient's drug concentration time course with the target goal AUC 24 range of 400 - 600 mg/L/hr.
--- NOTE | 2023-01-09 11:25 | P.PNIM_ITS ---
Subjective Subjective Date of Service: 01/09/23 Interval History: Feels better overall pain under fair control report mild tingling in her foot no other overnight events Review of Systems Review of Systems: Yes all other systems are reviewed and are negative Physical Exam Vital Signs: Vital Signs: Last Vital Signs Temp 98.3 F 01/09/23 11:00 Pulse 60 01/09/23 11:00 Resp 16 01/09/23 11:00 BP 109/54 L 01/09/23 11:00 Pulse Ox 94 01/09/23 11:00 O2 Del Method Room Air 01/09/23 11:00 O2 Flow Rate 2 01/08/23 15:05 BMI result Body Mass Index 32.5 Const: Other: Constitutional : Awake, interactive, not in distress Neck : Normal inspection, Supple Cardiovascular : RRR, no JVP, no lower extremity edema Respiratory : good bilateral air entry, no crackles, wheezes or rhonchi Gastrointestinal: soft, lax, Normal bowel sounds, Non tender Skin : Warm, , surgical site looks clean with no erythema or drainage. Dry Neurological : Alert & oriented x3, No focal deficit Objective Data Active Medications Acetaminophen (Acetaminophen 325 Mg Tablet) 650 mg PO Q6H PRN PRN Reason: Pain, Mild (Pain Scale 1-3) Last Admin: 01/08/23 18:19 Dose: 650 mg Documented By: YONNY Amlodipine Besylate (Amlodipine Besylate 10 Mg Tablet) 10 mg PO DAILY [facility]; P rotocol Last Admin: 01/09/23 08:09 Dose: 10 mg Documented By: BE Ascorbic Acid (Ascorbic Acid 500 Mg Tablet) 1,000 mg PO DAILY [facility] Last Admin: 01/09/23 08:18 Dose: 1,000 mg Documented By: BE Comments: WRAPPER WON'T SCAN Aspirin (Aspirin Enteric Coated 81 Mg Tablet.) 81 mg PO DAILY [facility] Last Admin: 01/09/23 08:08 Dose: 81 mg Documented By: BE Atorvastatin Calcium (Atorvastatin Calcium 80 Mg Tablet) 80 mg PO BEDTIME [facility] Last Admin: 01/08/23 20:46 Dose: 80 mg Documented By: YONNY Carvedilol (Carvedilol 25 Mg Tablet) 25 mg PO BID [facility]; Protocol Last Admin: 01/09/23 08:08 Dose: 25 mg Documented By: BE Celecoxib (Celecoxib 200 Mg Capsule) 200 mg PO BID [facility] Last Admin: 01/09/23 08:08 Dose: 200 mg Documented By: BE Docusate Sodium (Docusate Sodium 100 Mg Capsule) 100 mg PO BID [facility] Last Admin: 01/09/23 08:10 Dose: 100 mg Documented By: BE Duloxetine HCl (Duloxetine Hcl 60 Mg Capsule.) 60 mg PO DAILY [facility] Last Admin: 01/09/23 08:09 Dose: 60 mg Documented By: BE Enoxaparin Sodium (Enoxaparin Sodium 40 Mg/0.4 Ml Syringe) 40 mg SUBCUT Q24H [facility] Last Admin: 01/08/23 17:48 Dose: Not Given Documented By: YONNY Non-Admin Reason: will hold per MALISSA Levin Escitalopram Oxalate (Escitalopram Oxalate 10 Mg Tablet) 10 mg PO DAILY [facility] Last Admin: 01/09/23 08:10 Dose: 10 mg Documented By: BE Famotidine (Famotidine 20 Mg Tablet) 40 mg PO BEDTIME [facility] Last Admin: 01/08/23 20:47 Dose: 40 mg Documented By: YONNY Ferrous Sulfate (Ferrous Sulfate 324 Mg Tablet.) 324 mg PO DAILY [facility] Last Admin: 01/09/23 08:09 Dose: 324 mg Documented By: BE Glucose (Glucose Gel 15 Gm Gel..Gram.) 15 gm PO Q15M PRN; Protocol PRN Reason: per Hypoglycemia Standing Ord. Hydromorphone HCl (Hydromorphone Hcl 0.5 Mg/0.5 Ml Syringe) 0.25 mg IVPUSH Q4H PRN; Protocol PRN Reason: Pain, Severe (Pain Scale 7-10) Last Admin: 01/09/23 04:15 Dose: 0.25 mg Documented By: GRACIE Dextrose (D10) 250 mls @ 750 mls/hr IV Q15M PRN; Protocol PRN Reason: per Hypoglycemia Standing Ord. Lactated Ringer's (Lr) 1,000 mls @ 100 mls/hr IVCONT .Q10H [facility] Last Admin: 01/09/23 04:17 Dose: 100 mls/hr Documented By: GRACIE Vancomycin HCl 1,250 mg/ (Sodium Chloride) 250 mls @ 166.667 mls/hr IV Q24H [facility] Insulin Glargine (Insulin Glargine,Hum.Rec.Anlog 100 Unit/Ml 10 Ml Vial) 15 unit SUBCUT BEDTIME [facility] Last Admin: 01/08/23 20:44 Dose: 15 unit Documented By: YONNY Insulin Human Lispro (Insulin Lispro 100 Unit/Ml 3 Ml Vial) 0 unit SUBCUT QIDACHS [facility]; Protocol Last Admin: 01/09/23 08:10 Dose: 4 unit Documented By: BE Multivitamins/Vitamin C (Multivitamin Tablet) 1 tab PO DAILY [facility] Last Admin: 01/09/23 08:09 Dose: 1 tab Documented By: BE Pt Own (Ibrutinib [ Imbruvica] 420 Mg Tablet) 420 mg PO DAILY [facility] Last Admin: 01/09/23 08:11 Dose: 420 mg Documented By: BE Omeprazole (Omeprazole 20 Mg Capsule.Dr) 20 mg PO DAILY@0630 [facility] Last Admin: 01/09/23 06:29 Dose: 20 mg Documented By: GRACIE Ondansetron HCl (Ondansetron Hcl 4 Mg/2 Ml Vial) 4 mg IVPUSH Q8H PRN PRN Reason: Nausea and Vomiting Oxycodone HCl (Oxycodone Hcl Immed Release 5 Mg Tablet) 5 mg PO Q4H PRN PRN Reason: Pain, Moderate(Pain Scale 4-6) Last Admin: 01/09/23 08:09 Dose: 5 mg Documented By: BE Oxycodone HCl (Oxycodone Hcl Er 10 Mg Tab.Er.12h) 10 mg PO BID [facility] Last Admin: 01/09/23 08:09 Dose: 10 mg Documented By: BE Pharmacy Consult (Consult Rx Perform Med Rec) 1 each MISCELLANE ONCE PRN PRN Reason: Consult order Pharmacy Consult (Consult Rx Vancomycin Dosing) 1 each MISCELLANE DAILY PRN PRN Reason: Consult order Phenazopyridine HCl (Phenazopyridine Hcl 100 Mg Tablet) 100 mg PO BID [facility] Last Admin: 01/09/23 08:09 Dose: 100 mg Documented By: BE Polyethylene Glycol (Polyethylene Glycol 3350 17 Gm Powd.Pack) 17 gm PO BID [facility] Pregabalin (Pregabalin 150 Mg Capsule) 150 mg PO BID [facility] Last Admin: 01/09/23 08:08 Dose: 150 mg Documented By: BE Sodium Chloride (0.9 % Sodium Chloride Flush 3 Ml Syringe) 3 ml IVFLUSH QSWVFT [facility] Last Admin: 01/09/23 08:11 Dose: Not Given Documented By: BE Non-Admin Reason: IV Running Sodium Chloride (0.9 % Sodium Chloride Flush 3 Ml Syringe) 3 ml IVFLUSH [facility] Last Admin: 01/09/23 08:11 Dose: Not Given Documented By: BE Non-Admin Reason: IV Running Spironolactone (Spironolactone 25 Mg Tablet) 25 mg PO DAILY [facility]; Protocol Last Admin: 01/09/23 08:10 Dose: 25 mg Documented By: BE Labs 01/09/23 05:59 01/09/23 05:59 Labs: Laboratory Results - last 24 hr 01/08/23 01/08/23 01/09/23 17:21 20:08 05:59 MCV 83.9 MCH 26.6 L MCHC 31.6 RDW 14.6 Plt Count 188 MPV 11.0 Immature Gran % (Auto) 0.6 H Neut % (Auto) 82.2 H Lymph % (Auto) 11.0 L [place] % (Auto) 6.1 Eos % (Auto) 0.0 Baso % (Auto) 0.1 Lymph # (Auto) 1.1 L [place] # (Auto) 0.6 Eos # (Auto) 0.0 Baso # (Auto) 0.0 Abs Immat Gran (auto) 0.06 H Absolute Neuts (auto) 8.1 Absolute Nucleated RBC 0.000 Nucleated RBC % (auto) 0.0 Anion Gap Estim Creat Clear Calc Estimated GFR POC Glucose 322 H 306 H Fasting Glucose Calcium Random Vancomycin 01/09/23 01/09/23 01/09/23 05:59 05:59 07:17 MCV 83.6 MCH 26.8 L MCHC 32.1 RDW 14.7 Plt Count 184 MPV 11.0 Immature Gran % (Auto) Neut % (Auto) Lymph % (Auto) [place] % (Auto) Eos % (Auto) Baso % (Auto) Lymph # (Auto) [place] # (Auto) Eos # (Auto) Baso # (Auto) Abs Immat Gran (auto) Absolute Neuts (auto) Absolute Nucleated RBC 0.000 Nucleated RBC % (auto) 0.0 Anion Gap 13 Estim Creat Clear Calc 47.9 Estimated GFR 50 POC Glucose 247 H Fasting Glucose 240 H Calcium 8.8 D Random Vancomycin 01/09/23 09:50 MCV MCH MCHC RDW Plt Count MPV Immature Gran % (Auto) Neut % (Auto) Lymph % (Auto) [place] % (Auto) Eos % (Auto) Baso % (Auto) Lymph # (Auto) [place] # (Auto) Eos # (Auto) Baso # (Auto) Abs Immat Gran (auto) Absolute Neuts (auto) Absolute Nucleated RBC Nucleated RBC % (auto) Anion Gap Estim Creat Clear Calc Estimated GFR POC Glucose Fasting Glucose Calcium Random Vancomycin 20.2 H Microbiology Microbiology Results: Microbiology 01/03/23 14:32 Blood Culture - Final Blood - Venous No growth after 5 days. 01/03/23 14:34 Blood Culture - Final Blood - Venous No growth after 5 days. 01/03/23 Unknown Urine Culture - Final Urine Catheterized - Straight Catheter Achromobacter xylosoxidans Yessica parapsilosis Assessment and Plan (1) Status post total hip replacement, right: Status: Acute Plan 77-year-old female with pertinent history of recurrent UTI, chronic suprapubic catheter, [id number] diabetes mellitus, history of CVA, mood disorder, sleep apnea on CPAP, essential hypertension, chronic opioid use. presented with hip pain left hip pain, mostly due to severe OA complicated by Subchondral Insufficiency fracture left hip POD 1 feels much better to start physical therapy oxycodone for pain orthopedics following Recurrent UTI/neurogenic bladder Positive UA. ID feels patient likely with colonization. Not recommending treatment at this time Suprapubic catheter in place Urology input appreciated, imaging for possible colovesical fistula once she is able to stand premed with prednisone and Benadryl slo-[id number] type 2 diabetes insulin HTN amlodipine aldactone mood disorder cymbalta GERD ppi DVT prophylaxis Lovenox Full code reason for continued hospitalization:Pending CT imaging , safe discharge plan post surgery Time Spent With Patient Time: Total time managing care of this patient today ____ minutes. Quality Stroke Does the patient have a stroke diagnosis?: No VTE Prior VTE?: No VTE Risk Level:: Medical - moderate - high VTE Device Contraindication: Treatment Not Indicated VTE Drug Contraindication: N/A - Med Ordered
[2023-01-09 11:26] LABS: Glucose, Whole Blood 285 mg/dL (60-115)
[2023-01-09] MEDS: polyethylene glycoL 3350 17 GM POWD.PACK PO ×2 (11:57→20:45)
--- NOTE | 2023-01-09 12:48 | MHC.CM.PN ---
PT mar recommends Acute rehab. Referrals were sent to the Acute rehabs. Bed offers received, were presented to the patient. The Pts choice is [facility]. They have been notified that the pt accepts the bed offer. consult today. CT AB/Pelvis is ordered for tomorrow. Per MD discharge is anticipated tomorrow afternoon after the CT. Patient will transport via BLS.
--- NOTE | 2023-01-09 15:22 | PC.NURSE ---
Patient reports no BM for 7 days. Miralax given per order. Results pending.
[2023-01-09 16:37] LABS: Glucose, Whole Blood 250 mg/dL (60-115)
[2023-01-09] MEDS: 0.9 % Sodium Chloride Flush 3 ML SYRINGE IVFLUSH ×2 (19:30→20:52)
[2023-01-09] MEDS: Famotidine 20 MG TABLET 40 MG PO (20:46)
[2023-01-09] MEDS: Atorvastatin Calcium 80 MG TABLET PO (20:48)
[2023-01-09 20:53] LABS: Glucose, Whole Blood 261 mg/dL (60-115)
[2023-01-09] MEDS: Insulin Glargine,Hum.rec.anlog 100 UNIT/ML 10 ML VIAL 15 UNIT SUBCUT (20:57)
[2023-01-09] MEDS: vancomycin HCL 1,250 MG in 0.9 % Sodium Chloride 250 ML 166.67 MG IV (21:58)
[2023-01-10] VITALS (13 sets, daily range): BP systolic 114–167; BP diastolic 54–71; PULSE 58–73; RESP 16–20; TEMP 36.1–37.1; O2SAT 93–97
[2023-01-10] MEDS: Lactated Ringers 1,000 ML 100 ML IVCONT (00:36)
[2023-01-10] MEDS: 0.9 % Sodium Chloride Flush 3 ML SYRINGE IVFLUSH ×3 (00:37→22:04)
[2023-01-10] MEDS: oxyCODONE HCl Immed Release 5 MG TABLET PO (03:07)
[2023-01-10] MEDS: Omeprazole 20 MG CAPSULE.DR PO (05:33)
[2023-01-10 06:19] LABS: Glucose, Whole Blood 187 mg/dL (60-115)
--- NOTE | 2023-01-10 06:20 | PC.NURSE ---
Pt woke up this morning little confused when the phlebotomy came. She was also very diaphoretic. Vitals signs with in normals.POC is 187. After few minute, pt became more awake. MD [place] notified.
[2023-01-10 06:30] LABS: Hematocrit 23.5 % (37.0-47.0); Hemoglobin 7.2 g/dl (12.0-16.0); Mean Corpuscular HGB Conc 30.6 g/dl (31.0-35.0); Mean Corpuscular Hemoglobin 25.8 pg (27.0-33.0); Mean Corpuscular Volume 84.2 fL (80.0-98.0); Mean Platelet Volume 10.6 fL (9.4-12.3); Platelet Count 168 X10*3/uL (160-400); Red Blood Count 2.79 X10*6/uL (4.20-5.50); Red Cell Distribution Width 14.9 % (11.0-16.0)
[2023-01-10 06:44] LABS: Creatinine Clr Calc Pharmacy 47.5; Estimated Glomerular Filt Rate 50
[2023-01-10 07:26] LABS: Glucose, Whole Blood 164 mg/dL (60-115)
[2023-01-10] MEDS: Insulin Lispro 100 UNIT/ML 3 ML VIAL SUBCUT ×4 (08:04→20:58)
[2023-01-10] MEDS: DULoxetine HCl 60 MG CAPSULE.DR PO (08:24)
[2023-01-10] MEDS: carvediloL 25 MG TABLET PO ×2 (08:24→20:02)
[2023-01-10] MEDS: Aspirin Enteric Coated 81 MG TABLET.DR PO (08:24)
[2023-01-10] MEDS: Ferrous Sulfate 324 MG TABLET.DR PO (08:24)
[2023-01-10] MEDS: Docusate Sodium 100 MG CAPSULE PO ×2 (08:24→20:02)
[2023-01-10] MEDS: Escitalopram Oxalate 10 MG TABLET PO (08:24)
[2023-01-10] MEDS: Multivitamin TABLET 1 TAB PO (08:24)
[2023-01-10] MEDS: Ascorbic Acid 500 MG TABLET 1000 MG PO (08:24)
[2023-01-10] MEDS: amLODIPine Besylate 10 MG TABLET PO (08:24)
[2023-01-10] MEDS: Celecoxib 200 MG CAPSULE PO ×2 (08:25→20:02)
[2023-01-10] MEDS: oxyCODONE HCl ER 10 MG TAB.ER.12H PO ×2 (08:33→20:02)
[2023-01-10] MEDS: Spironolactone 25 MG TABLET PO (08:33)
[2023-01-10] MEDS: Pregabalin 150 MG CAPSULE PO ×2 (08:33→20:02)
[2023-01-10] MEDS: Phenazopyridine HCL 100 MG TABLET PO ×2 (08:33→20:06)
[2023-01-10] MEDS: polyethylene glycoL 3350 17 GM POWD.PACK PO (08:33)
[2023-01-10] MEDS: HYDROmorphone HCl 0.5 MG/0.5 ML SYRINGE 0.25 MG IVPUSH (09:16)
[2023-01-10] MEDS: predniSONE 20 MG TABLET PO (10:22)
[2023-01-10] MEDS: diphenhydrAMINE HCL 50 MG/ML VIAL 25 MG IVPUSH (10:22)
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
[2023-01-10 11:19] LABS: Glucose, Whole Blood 212 mg/dL (60-115)
--- NOTE | 2023-01-10 11:49 | MHC.CM.PN ---
PLAN IS NOW DC TO [facility] Saturday01/11/23 TODAY IS PLAN FOR TRANSFUSION. IMM 01/10 IN CHART
--- NOTE | 2023-01-10 12:09 | HO.PM.IMPN ---
Subjective Subjective Date of Service: 01/10/23 Interval History: Feels better overall Hb dropped to 7.2 with no evidence of bleeding pain under fair control no other overnight events Review of Systems Review of Systems: Yes all other systems are reviewed and are negative Physical Exam Vital Signs: Vital Signs: Last Vital Signs Temp 97.3 F 01/10/23 10:01 Pulse 64 01/10/23 10:01 Resp 16 01/10/23 10:01 BP 138/64 01/10/23 10:01 Pulse Ox 96 01/10/23 06:12 O2 Del Method Room Air 01/10/23 07:42 O2 Flow Rate 2 01/08/23 15:05 BMI result Body Mass Index 32.5 Const: Other: Constitutional : Awake, interactive, not in distress Neck : Normal inspection, Supple Cardiovascular : RRR, no JVP, no lower extremity edema Respiratory : good bilateral air entry, no crackles, wheezes or rhonchi Gastrointestinal: soft, lax, Normal bowel sounds, Non tender Skin : Warm, , surgical site looks clean with no erythema or drainage. Dry Neurological : Alert & oriented x3, No focal deficit Objective Data Active Medications Acetaminophen (Acetaminophen 325 Mg Tablet) 650 mg PO Q6H PRN PRN Reason: Pain, Mild (Pain Scale 1-3) Last Admin: 01/08/23 18:19 Dose: 650 mg Documented By: YONNY Amlodipine Besylate (Amlodipine Besylate 10 Mg Tablet) 10 mg PO DAILY [facility]; Protocol Last Admin: 01/10/23 08:24 Dose: 10 mg Documented By: BULL Ascorbic Acid (Ascorbic Acid 500 Mg Tablet) 1,000 mg PO DAILY [facility] Last Admin: 01/10/23 08:24 Dose: 1,000 mg Documented By: BULL Aspirin (Aspirin Enteric Coated 81 Mg Tablet.) 81 mg PO DAILY [facility] Last Admin: 01/10/23 08:24 Dose: 81 mg Documented By: BULL Atorvastatin Calcium (Atorvastatin Calcium 80 Mg Tablet) 80 mg PO BEDTIME [facility] Last Admin: 01/09/23 20:48 Dose: 80 mg Documented By: AURELIA Carvedilol (Carvedilol 25 Mg Tablet) 25 mg PO BID [facility]; Protocol Last Admin: 01/10/23 08:24 Dose: 25 mg Documented By: BULL Celecoxib (Celecoxib 200 Mg Capsule) 200 mg PO BID [facility] Last Admin: 01/10/23 08:25 Dose: 200 mg Documented By: BULL Diphenhydramine HCl (Diphenhydramine Hcl 50 Mg/Ml Vial) 25 mg IVPUSH ONCE PRN PRN Reason: Prior to contrast uptake Last Admin: 01/10/23 10:22 Dose: 25 mg Documented By: BULL Docusate Sodium (Docusate Sodium 100 Mg Capsule) 100 mg PO BID [facility] Last Admin: 01/10/23 08:24 Dose: 100 mg Documented By: BULL Duloxetine HCl (Duloxetine Hcl 60 Mg Capsule.) 60 mg PO DAILY [facility] Last Admin: 01/10/23 08:24 Dose: 60 mg Documented By: BULL Enoxaparin Sodium (Enoxaparin Sodium 40 Mg/0.4 Ml Syringe) 40 mg SUBCUT Q24H [facility] Last Admin: 01/08/23 17:48 Dose: Not Given Documented By: YONNY Non-Admin Reason: will hold per MALISSA Levin Escitalopram Oxalate (Escitalopram Oxalate 10 Mg Tablet) 10 mg PO DAILY [facility] Last Admin: 01/10/23 08:24 Dose: 10 mg Documented By: BULL Famotidine (Famotidine 20 Mg Tablet) 40 mg PO BEDTIME [facility] Last Admin: 01/09/23 20:46 Dose: 40 mg Documented By: AURELIA Ferrous Sulfate (Ferrous Sulfate 324 Mg Tablet.) 324 mg PO DAILY [facility] Last Admin: 01/10/23 08:24 Dose: 324 mg Documented By: BULL Glucose (Glucose Gel 15 Gm Gel..Gram.) 15 gm PO Q15M PRN; Protocol PRN Reason: per Hypoglycemia Standing Ord. Hydromorphone HCl (Hydromorphone Hcl 0.5 Mg/0.5 Ml Syringe) 0.25 mg IVPUSH Q4H PRN; Protocol PRN Reason: Pain, Severe (Pain Scale 7-10) Last Admin: 01/10/23 09:16 Dose: 0.25 mg Documented By: BULL Dextrose (D10) 250 mls @ 750 mls/hr IV Q15M PRN; Protocol PRN Reason: per Hypoglycemia Standing Ord. Vancomycin HCl 1,250 mg/ (Sodium Chloride) 250 mls @ 166.667 mls/hr IV Q24H [facility] Last Infusion: 01/09/23 23:41 Dose: 0 mls/hr Documented By: AURELIA Insulin Glargine (Insulin Glargine,Hum.Rec.Anlog 100 Unit/Ml 10 Ml Vial) 15 unit SUBCUT BEDTIME [facility] Last Admin: 01/09/23 20:57 Dose: 15 unit Documented By: AURELIA Insulin Human Lispro (Insulin Lispro 100 Unit/Ml 3 Ml Vial) 0 unit SUBCUT QIDACHS [facility]; Protocol Last Admin: 01/10/23 11:46 Dose: 4 unit Documented By: BULL Lactulose (Lactulose 20 Gm/30 Ml Solution) 20 gm PO BID [facility] Multivitamins/Vitamin C (Multivitamin Tablet) 1 tab PO DAILY [facility] Last Admin: 01/10/23 08:24 Dose: 1 tab Documented By: BULL Pt Own (Ibrutinib [ Imbruvica] 420 Mg Tablet) 420 mg PO DAILY [facility] Last Admin: 01/10/23 08:25 Dose: 420 mg Documented By: BULL Omeprazole (Omeprazole 20 Mg Capsule.Dr) 20 mg PO DAILY@0630 [facility] Last Admin: 01/10/23 05:33 Dose: 20 mg Documented By: AURELIA Ondansetron HCl (Ondansetron Hcl 4 Mg/2 Ml Vial) 4 mg IVPUSH Q8H PRN PRN Reason: Nausea and Vomiting Oxycodone HCl (Oxycodone Hcl Immed Release 5 Mg Tablet) 5 mg PO Q4H PRN PRN Reason: Pain, Moderate(Pain Scale 4-6) Last Admin: 01/10/23 03:07 Dose: 5 mg Documented By: AURELIA Oxycodone HCl (Oxycodone Hcl Er 10 Mg Tab.Er.12h) 10 mg PO BID [facility] Last Admin: 01/10/23 08:33 Dose: 10 mg Documented By: BULL Pharmacy Consult (Consult Rx Perform Med Rec) 1 each MISCELLANE ONCE PRN PRN Reason: Consult order Pharmacy Consult (Consult Rx Vancomycin Dosing) 1 each MISCELLANE DAILY PRN PRN Reason: Consult order Phenazopyridine HCl (Phenazopyridine Hcl 100 Mg Tablet) 100 mg PO BID [facility] Last Admin: 01/10/23 08:33 Dose: 100 mg Documented By: BULL Polyethylene Glycol (Polyethylene Glycol 3350 17 Gm Powd.Pack) 17 gm PO BID [facility] Last Admin: 01/10/23 08:33 Dose: 17 gm Documented By: BULL Pregabalin (Pregabalin 150 Mg Capsule) 150 mg PO BID [facility] Last Admin: 01/10/23 08:33 Dose: 150 mg Documented By: BULL Sodium Chloride (0.9 % Sodium Chloride Flush 3 Ml Syringe) 3 ml IVFLUSH [facility] Last Admin: 01/10/23 00:37 Dose: 3 ml Documented By: AURELIA Sodium Chloride (0.9 % Sodium Chloride Flush 3 Ml Syringe) 3 ml IVFLUSH [facility] Last Admin: 01/10/23 08:06 Dose: Not Given Documented By: BULL Non-Admin Reason: IV Running Spironolactone (Spironolactone 25 Mg Tablet) 25 mg PO DAILY [facility]; Protocol Last Admin: 01/10/23 08:33 Dose: 25 mg Documented By: BULL Labs 01/10/23 05:44 01/10/23 06:03 Labs: Laboratory Results - last 24 hr 01/07/23 01/09/23 01/09/23 14:24 16:32 20:49 MCV MCH MCHC RDW Plt Count MPV Absolute Nucleated RBC Nucleated RBC % (auto) Estim Creat Clear Calc Estimated GFR POC Glucose 250 H 261 H Blood Type O Positive Antibody Screen NEGATIVE Crossmatch See Detail 01/10/23 01/10/23 01/10/23 05:44 06:03 06:13 MCV 84.2 MCH 25.8 L MCHC 30.6 L RDW 14.9 Plt Count 168 MPV 10.6 Absolute Nucleated RBC 0.000 Nucleated RBC % (auto) 0.0 Estim Creat Clear Calc 47.5 Estimated GFR 50 POC Glucose 187 H Blood Type Antibody Screen Crossmatch 01/10/23 01/10/23 07:15 11:15 MCV MCH MCHC RDW Plt Count MPV Absolute Nucleated RBC Nucleated RBC % (auto) Estim Creat Clear Calc Estimated GFR POC Glucose 164 H 212 H Blood Type Antibody Screen Crossmatch Assessment and Plan (1) Acute on chronic blood loss anemia: Status: Acute Plan 77-year-old female with pertinent history of recurrent UTI, chronic suprapubic catheter, gke-ysvyonm-uamjzyzbe diabetes mellitus, history of CVA, mood disorder, sleep apnea on CPAP, essential hypertension, chronic opioid use. presented with hip pain left hip pain, mostly due to severe OA complicated by Subchondral Insufficiency fracture left hip POD 2 feels much better to start physical therapy oxycodone for pain orthopedics following Recurrent UTI/neurogenic bladder Positive UA. ID feels patient likely with colonization. Not recommending treatment at this time Suprapubic catheter in place Urology input appreciated, imaging for possible colovesical fistula once she is able to stand premed with prednisone and Benadryl Pending CT abd\pel today acute on chronic blood loss anemia Hb to 7.2, surgical loss and dilutional transfuse 1 unit follow H&H laa-tfthnpd-bdgwqcjhi type 2 diabetes insulin HTN amlodipine aldactone mood disorder cymbalta GERD ppi DVT prophylaxis Lovenox Full code reason for continued hospitalization:Pending CT imaging , blood transfusion, safe discharge plan post surgery Time Spent With Patient Time: Total time managing care of this patient today ____ minutes. Quality Stroke Does the patient have a stroke diagnosis?: No VTE Prior VTE?: No VTE Risk Level:: Medical - moderate - high VTE Device Contraindication: Treatment Not Indicated VTE Drug Contraindication: N/A - Med Ordered
[2023-01-10] MEDS: Lactulose 20 GM/30 ML SOLUTION PO ×2 (13:27→20:01)
--- NOTE | 2023-01-10 14:21 | P.OP_ITS ---
Operative Note Operative Note Date of Service: 01/08/23 Narrative: Date of Service: 01/08/23 Pre-op diagnosis: Left hip OA with subchondral fracture Post-op diagnosis: same Procedure: Left ANGELICA Implants: Crowheart Trident2 #50/10 deg lip ?Crowheart Accolade2 #6 137 deg with +4/32 ceramic femoral head Surgeon: Julián Rueda MD Anesthesia: GETA and local Was an Bunch Breaker Machine Operator used for this Procedure?: Yes Bunch Breaker Machine Operator: Mary Kate Alvarado Estimated blood loss (mL): 250 IV fluids (mL): 1,000 Pathology: other Condition: stable Disposition: PACU Procedure in detail: Patient was brought into the operating room and placed in the right lateral decubitus position. All bony prominences were well padded and the limb was prepped and draped in standard sterile fashion. A time-out was called to identify proper site procedure proper surgeon IV antibiotics and 1 g of transaxemic acid were administered. I began by making a curvilinear incision over the posterolateral aspect of the greater trochanter. Dissection was taken down to the tensor fascia which was incised in line with the incision and a Ch arnley retractor was placed. Cautery was used to maintain hemostasis. The hip was internally rotated and the external rotators were identified. The vessels were cauterized and a full-thickness capsular/external rotator layer was developed starting just proximal to the piriformis. There was normal appearing joint fluid. This layer was tagged and a dull Hohmann retractor was placed underneath the neck in the hip was dislocated. A neck cut was made 1 cm proximal to the lesser trochanter and the head and neck were removed and measured 44mm on the back table. The head was collapsed and deformed. I then removed the labrum and cauterized the fovea. I started with a 46 reamer and medialized to the inner table. I sequentially reamed up to a size 49 and impacted a 50mm cup at 45 degrees of inclination and 25 degrees of version. I then placed a 10 deg posterior lipped liner and turned my attention to the femur. I identified the piriformis insertion and used this as a starting point for my mac cutter. The medius tendon was protected with a Hibs retractor. A Charnley awl was inserted in the canal and a curved curette used to remove the lateral bone. I irrigated copiously. I then sequentially broached in the patient's natural version to a size 6 and placed my trial implants. I used a #6/127/+4 based on my pre-operative template. Using a trail head I took the hip through range of motion. I was satisfied with the stability. I removed all instrumentation and copiously irrigated. I placed my final femoral implant and again took the hip through range of motion and was satisfied with the stability and length. The final +4/32 implant was impacted in place and the hip reduced. A Werewolf cautery wand was used to maintain hemostasis over the capsule and meniscal beds, the gutters and peripatellar soft tissues. I then irrigated for 3 minutes with iodine and placed 1 g of local transaxemic acid. I performed a capsular closure with 2.0 fiberwire, Rachel's fascia with 0 Vicryl, subcuticular with 2-0 Vicryl and the skin with prakash. Patient was placed into a sterile dressing. Patient was extubated brought to the recovery room in stable condition. There were no known complications.
[2023-01-10 15:59] LABS: Glucose, Whole Blood 240 mg/dL (60-115)
[2023-01-10] MEDS: Enoxaparin Sodium 40 MG/0.4 ML SYRINGE SUBCUT (16:46)
[2023-01-10] MEDS: Acetaminophen 325 MG TABLET 650 MG PO (19:21)
[2023-01-10] MEDS: Glycerin Adult SUPP.RECT 1 SUPP PR (19:26)
[2023-01-10] MEDS: Atorvastatin Calcium 80 MG TABLET PO (20:02)
[2023-01-10] MEDS: Famotidine 20 MG TABLET 40 MG PO (20:02)
[2023-01-10 20:47] LABS: Glucose, Whole Blood 351 mg/dL (60-115)
[2023-01-10] MEDS: Insulin Glargine,Hum.rec.anlog 100 UNIT/ML 10 ML VIAL 15 UNIT SUBCUT (20:58)
[2023-01-10] MEDS: vancomycin HCL 1,250 MG in 0.9 % Sodium Chloride 250 ML 166.67 MG IV (22:02)
[2023-01-10 23:41] LABS: Glucose, Whole Blood 279 mg/dL (60-115)
[2023-01-11 03:02] VITALS: BP 129/62; PULSE 62; RESP 17; TEMP 36.6; O2SAT 96
[2023-01-11] MEDS: Omeprazole 20 MG CAPSULE.DR PO (05:24)
[2023-01-11 06:42] LABS: Anion Gap 11 (12-20); Blood Urea Nitrogen 23 mg/dL (9-16); Calcium 8.8 mg/dL (8.4-10.2); Carbon Dioxide 27 mmol/L (22-29); Chloride 102 mmol/L (96-108); Creatinine Clr Calc Pharmacy 54.7; Estimated Glomerular Filt Rate 59; Glucose Random 197 mg/dL (60-115); Potassium 4.4 mmol/L (3.3-5.1); Sodium 136 mmol/L (135-145)
[2023-01-11 06:49] LABS: Creatinine Clr Calc Pharmacy 51.9; Estimated Glomerular Filt Rate 55
[2023-01-11 07:13] VITALS: BP 138/66; PULSE 60; RESP 20; TEMP 36.4; O2SAT 95
[2023-01-11 07:25] LABS: Glucose, Whole Blood 171 mg/dL (60-115)
[2023-01-11] MEDS: Insulin Lispro 100 UNIT/ML 3 ML VIAL SUBCUT ×2 (07:51→11:53)
[2023-01-11] MEDS: Docusate Sodium 100 MG CAPSULE PO (07:52)
[2023-01-11] MEDS: polyethylene glycoL 3350 17 GM POWD.PACK PO (07:52)
[2023-01-11] MEDS: Lactulose 20 GM/30 ML SOLUTION PO (07:52)
[2023-01-11] MEDS: Celecoxib 200 MG CAPSULE PO (07:53)
[2023-01-11] MEDS: amLODIPine Besylate 10 MG TABLET PO (07:53)
[2023-01-11] MEDS: Multivitamin TABLET 1 TAB PO (07:53)
[2023-01-11] MEDS: DULoxetine HCl 60 MG CAPSULE.DR PO (07:53)
[2023-01-11] MEDS: Phenazopyridine HCL 100 MG TABLET PO (07:53)
[2023-01-11] MEDS: Pregabalin 150 MG CAPSULE PO (07:53)
[2023-01-11] MEDS: carvediloL 25 MG TABLET PO (07:53)
[2023-01-11] MEDS: Ascorbic Acid 500 MG TABLET 1000 MG PO (07:54)
[2023-01-11] MEDS: Spironolactone 25 MG TABLET PO (07:54)
[2023-01-11] MEDS: Escitalopram Oxalate 10 MG TABLET PO (07:54)
[2023-01-11] MEDS: Ferrous Sulfate 324 MG TABLET.DR PO (07:54)
[2023-01-11] MEDS: Aspirin Enteric Coated 81 MG TABLET.DR PO (07:54)
[2023-01-11] MEDS: 0.9 % Sodium Chloride Flush 3 ML SYRINGE IVFLUSH ×2 (07:55→08:09)
[2023-01-11] MEDS: oxyCODONE HCl ER 10 MG TAB.ER.12H PO (07:55)
[2023-01-11 08:03] LABS: Hematocrit 28.7 % (37.0-47.0); Hemoglobin 9.2 g/dl (12.0-16.0)
--- NOTE | 2023-01-11 08:09 | PM.PNORT ---
Subjective Subjective Date of Service: 01/11/23 Interval history: POD1 s/p Right total hip arthroplasty. No overnight events. Pain is managed. No additional complaints. Physical Exam Vital Signs: Vital Signs: Last Vital Signs Temp 97.6 F 01/11/23 07:13 Pulse 60 01/11/23 07:13 Resp 20 01/11/23 07:13 BP 138/66 01/11/23 07:13 Pulse Ox 95 01/11/23 07:13 O2 Del Method Room Air 01/11/23 07:13 O2 Flow Rate 2 01/08/23 15:05 BMI result Body Mass Index 32.5 Const: General: cooperative, healthy appearing and no acute distress Resp: Effort & Inspection: normal respiratory effort and able to speak in complete sentences Cardio: Rate: regular rate Peripheral pulses: Peripheral pulses 2+ throughout GI: Palpation (GI): Soft to palpation Skin: Lesions: no lesions Rashes: no rashes Extrem: Other: incision clean dry and intact. Marixa intact. No erythema or effusion. Calf supple nontender. Neurovascularly intact. Procedures Date of Service Date of Service: 01/11/23 Progress Note: A&P Assessment and plan (1) Status post total hip replacement, right: Status: Acute Assessment and Plan: Patient is cleared to be dc from an ortho stand point. She will f/u in 2 weeks with ortho Time Spent With Patient Time: Total time managing care of this patient today ____ minutes. Quality Stroke Does the patient have a stroke diagnosis?: No VTE Prior VTE?: No VTE Risk Level:: Medical - moderate - high VTE Device Contraindication: Treatment Not Indicated VTE Drug Contraindication: N/A - Med Ordered
[2023-01-11 08:24] VITALS: BP 138/66; PULSE 60; O2SAT 95
--- NOTE | 2023-01-11 10:29 | MHC.CLN ---
NUTRITION INCREASED DIET KCALS TO BETTER MEET ESTIMATED ENERGY NEEDS. DIET=DIABETIC 1800 KCALS
--- NOTE | 2023-01-11 10:49 | PM.DS ---
DS: Providers Provider Date of Service: 01/11/23 Date of admission: 01/06/23 08:45 Primary care physician: Ricardo Breen MD Consults: 01/03/23 17:52 Consult to Urology Routine Consulting Provider: Ceferino Hayes Reason for consultation: recurrent UTI 01/03/23 17:59 Consult to Orthopedics Routine Consulting Provider: [facility] [place] Orth[facility] Surgeons Reason for consultation: hip fx 01/08/23 18:00 Consult to Hospitalist Routine Comment: Consulting Provider: Hospitalist Reason For Exam: routine medical management DS: Diagnosis Discharge Diagnosis (1) Status post total hip replacement, right: Status: Acute (2) Acute on chronic blood loss anemia: Status: Acute DS: Summary Hospital Course Hospital Course: Admission note HPI 77-year-old female with pertinent history of recurrent UTI, chronic suprapubic catheter, oht-[id number]-[id number] diabetes mellitus, history of CVA, mood disorder, sleep apnea on CPAP, essential hypertension, chronic opioid use?presented to the ED for evaluation of severe left hip pain ongoing for 3 weeks. Patient has known severe osteoarthritis in her left hip however reports over the last week the pain has increased significantly and she has been having difficulty with ambulation and weight bearing secondary to the pain. ? She reports that 3 weeks ago she tripped over her walker and fell onto her left hip.? She came to the emergency department where she believe she had an x-ray.? Upon chart review, patient was seen on December 17 after this fall and was diagnosed with a urinary tract infection, she had an abdomen CT scan at that time which showed severe degenerative changes of the left hip. She states that since this fall, she has been using a walker, but over this last week her has been using a wheelchair to get her around the house as her pain is too significant. She has tried taking tramadol and oxycodone for her pain which has provided her with no relief. Denies any new falls since December 17, denies any other trauma or injury. She rates her current pain as a 15/10, worsening with movement and palpitation, states the pain is constant and radiates into left inner groin and down into her left foot. She believes that she had a bladder spasm last night, but does not believe that she has a UTI at this time. On arrival VSS.? Hematology studies baseline.? Renal function baseline.? Sodium 133, potassium 3.9, chloride 94, CO2 to 31.? Urinalysis with 3+ leukocytes, positive nitrites, positive urinary sediment, 1+ bacteria.? Left hip CT showing severe left hip osteoarthritis with a minimally depressed subchondral fracture along the superior aspect of the femoral head likely related to the osteoarthritis.? Chronic avascular necrosis is less likely though cannot be entirely excluded.? There is also a large left hip joint effusion. ED provider spoke with PCP who feels strongly patient should be admitted given complicated picture and recurrent urosepsis, and severe hip pain. ED provider did discuss UA with Dr. Martinez who feels patient is likely colonized and given abscence of symptoms is not recommending treatment at this time though is recommending blood cultures which were collected. ED also discussed case with ortho who does not feel this is a surgical case. Hospital course The patient was admitted for evaluation of left hip pain due to severe OA complicated by Subchondral Insufficiency fracture left hip that was primary evaulated by orthopedic team who recommended non-surgical approach at [facility] but patient could not tolerate PT and was unable to ambulate because of severe pain. Orthopedic decided for surgery which was done 01/08/23 with good tolerance of PT after that and improvement of pain. Has history of Recurrent UTI/neurogenic bladder. Positive UA. ID feels patient likely with colonization. Not recommending treatment at this time. Suprapubic catheter in place. evaluated by Urology who recommended CT imaging for possible colovesical fistula. CT scan did not show any evidence of fistula. she will follow with dr Hayes as outpatient. Noted to have acute on chronic blood loss anemia with drop of Hb to 7.2 POD 2 after surgery. responded well to 1 unit transfusion as Hb improved to almost 10. No bleeding reported. Start PT Lovenox for DVT ppx Oxycodone for pain control To follow with Orthopedic as outpatient To follow with Urology as outpatient Time Spent with Patient Time attestation: Total time managing care of this patient today ____ minutes. Discharge coordination time: Greater than 30 minutes Quality: Safe Use of Opioids Does Pt have an Active Cancer Diagnosis on the Problem List?: No Quality: Stroke Does the patient have a stroke diagnosis?: No Physical Exam Vital Signs: Vital Signs: Last Vital Signs Temp 97.6 F 01/11/23 07:13 Pulse 60 01/11/23 08:24 Resp 20 01/11/23 07:13 BP 138/66 01/11/23 08:24 Pulse Ox 95 01/11/23 08:24 O2 Del Method Room Air 01/11/23 07:13 O2 Flow Rate 2 01/08/23 15:05 BMI result Body Mass Index 32.5 Const: Other: Constitutional : Awake, interactive, not in distress Neck : Normal inspection, Supple Cardiovascular : RRR, no JVP, no lower extremity edema Respiratory : good bilateral air entry, no crackles, wheezes or rhonchi Gastrointestinal: soft, lax, Normal bowel sounds, Non tender Skin : Warm, , surgical site looks clean with no erythema or drainage. Dry Neurological : Alert & oriented x3, No focal deficit DS: Data Data Completed and Pending Completed studies during hospitalization [Text1]: Procedures Change Drainage Device in Bladder, External Approach (10/30/22) Insertion of Infusion Device into Right Basilic Vein, Percutaneous Approach (10/30/22) Pending studies at discharge: Pending at discharge 01/08/23 13:58 Surgical [PTH] Routine Labs on day of discharge: Laboratory Results - last 24 hr 01/07/23 01/10/23 01/10/23 14:24 11:15 15:56 Hgb Hct Sodium Potassium Chloride Carbon Dioxide Anion Gap BUN Creatinine Estim Creat Clear Calc Estimated GFR POC Glucose 212 H 240 H Random Glucose Calcium Blood Type O Positive Antibody Screen NEGATIVE Crossmatch See Detail 01/10/23 01/10/23 01/11/23 20:14 23:38 05:55 Hgb Hct Sodium Potassium Chloride Carbon Dioxide Anion Gap BUN Creatinine 0.98 Estim Creat Clear Calc 51.9 Estimated GFR 55 POC Glucose 351 H* 279 H Random Glucose Calcium Blood Type Antibody Screen Crossmatch 01/11/23 01/11/23 01/11/23 05:55 07:11 07:40 Hgb 9.2 L D Hct 28.7 L D Sodium 136 Potassium 4.4 Chloride 102 Carbon Dioxide 27 Anion Gap 11 L BUN 23 H Creatinine 0.93 Estim Creat Clear Calc 54.7 Estimated GFR 59 POC Glucose 171 H Random Glucose 197 H Calcium 8.8 Blood Type Antibody Screen Crossmatch Imaging XR : Radiologist's impression: ITS Impressions Hip CT 01/03/23 11:54 IMPRESSION: 1. Severe left hip osteoarthritis with a minimally depressed subchondral fracture along the superior aspect of the femoral head. Findings are likely related to the osteoarthritis. Chronic avascular necrosis is thought less likely, however, cannot be entirely excluded. 2. Large left hip joint effusion. 3. Moderate osteoarthritis at the symphysis pubis. 4. Sigmoid diverticulosis without evidence of acute diverticulitis. Pelvis X-Ray 01/08/23 15:40 IMPRESSION: Satisfactory appearance of left hip replacement. Discharge Plan Discharge Anticipated Discharge Date/Time: 01/11/23 10:42 Patient Disposition: er [facility] Discharge Diagnosis: Hip fracture blood loss anemia Referrals: Ricardo Breen MD [Primary Care Provider] - 1 Week Mary Kate Alvarado PA-C [Physician Welder Explosion] - 2 Weeks (01/24/23 12:30 [facility] [place] Orth[facility] Surgeons Mary Kate Alvarado PA-C) Discharge Medications: New enoxaparin 40 mg/0.4 mL Syringe 40 mg subcut Q24H 42 Days Qty: 16.8 0RF celecoxib 200 mg Capsule 200 mg PO BID 30 Days Qty: 60 0RF acetaminophen 325 mg Tablet 650 mg PO Q6H PRN (Reason: Pain, Mild (Pain Scale 1-3)) 30 Days Qty: 240 0RF oxycodone 5 mg Tablet 5 mg PO Q4H PRN (Reason: Pain, Moderate(Pain Scale 4-6)) 7 Days Qty: 42 0RF Rx Instructions: Partial Fill upon patient request. Continued (DME) syringe with needle [BD Luer-Humphrey Syringe] 3 mL 22 x 1 1/2 syringe See Rx Instructions .ROUTE .MEDSUPPLY Qty: 20 0RF Rx Instructions: As directed famotidine 40 mg tablet 40 mg PO BEDTIME Qty: 90 1RF atorvastatin 80 mg tablet 80 mg PO QPM Qty: 90 3RF estradiol [Vagifem] 10 mcg tablet 10 mcg vaginal 2XW 90 Days Qty: 26 1RF ferrous sulfate [iron] 325 mg (65 mg iron) Tablet 325 mg PO DAILY Qty: 120 9RF sennosides [senna] 8.6 mg tablet 17.2 mg PO BEDTIME PRN (Reason: Constipation) Imbruvica 420 mg Tablet 420 mg PO DAILY methenamine hippurate 1 gram tablet 1 g PO BID pregabalin 150 mg capsule 150 mg PO BID multivitamin Tablet 1 tab PO DAILY tramadol 50 mg tablet 50 mg PO BID PRN (Reason: pain) phenazopyridine [Pyridium] 100 mg Tablet 100 mg PO BID magnesium 250 mg Tablet 250 mg PO BEDTIME coenzyme Q10 [CoQ-10] 100 mg Capsule 100 mg PO BEDTIME spironolactone 25 mg tablet 25 mg PO DAILY duloxetine 60 mg capsule,delayed release(DR/EC) 60 mg PO DAILY citalopram 20 mg tablet 20 mg PO DAILY metformin 1,000 mg tablet 1,000 mg PO BID carvedilol 25 mg tablet 25 mg PO BID amlodipine 10 mg tablet 10 mg PO DAILY aspirin [Enteric Coated Aspirin] 81 mg tablet,delayed release (DR/EC) 81 mg PO DAILY Qty: 90 4RF pantoprazole 40 mg tablet,delayed release (DR/EC) 40 mg PO DAILY Qty: 90 4RF (DME) Accu-Chek Guide test strips Strip See Rx Instructions .ROUTE DAILY Qty: 10 Rx Instructions: As directed ascorbic acid (vitamin C) 1,000 mg tablet 1,000 mg PO DAILY 90 Days Qty: 90 1RF Discharge Orders: Discharge Order (Routine); Ordered 01/11/23 Ordered By: Leonardo Merritt Diet: Regular diet Activity on Discharge: Use cane or walker Stand Alone Forms: Patient Portal Discharge page Activity Restrictions/Additional Instructions: Physical Therapy for Total hip arthroplasty: wbat, posterior precautions, gait training, ROM, strength Limit stair climbing No showering, no tub bath-keep dressing clean, dry and intact No driving x6 weeks Continue Lovenox a day x 6 weeks Follow up with [facility] Orthopedics in 2 weeks: 01/25/2312:30 [facility] [place] Orthopedic SurgeonsMary Kate Alvarado PA-C Care Plan Goals: Restore function of joint Health Concerns: Read below Plan of Treatment: The patient underwent Left total hip arthroplasty on 01/08/23 Physical therapy should include gait training, ROM to tolerance and strength. sHe is WBAT. Posterior precautions in place. Prior to discharge, dressing was changed, incision clean dry and intact, new Aquacel dressing applied. The Aquacel dressing shoulder remain intact and dry at all times. Any concerns with the dressing, please contact orthopedic office. No showering. Assessment: Received blood transfusion with good response.
[2023-01-11 11:20] LABS: COVID-19 Test Negative (Negative); IDNOW Serial# 6674DD1D
[2023-01-11 11:26] LABS: Glucose, Whole Blood 246 mg/dL (60-115)
[2023-01-11 11:40] VITALS: BP 123/58; PULSE 56; RESP 20; TEMP 36.3; O2SAT 95
--- NOTE | 2023-01-11 11:59 | MHC.CM.PN ---
PT WILL DC TO [facility] TODAY AT 1330 VIA [facility]
--- NOTE | 2023-01-12 10:12 | P.CDIM_ITS ---
PROVIDER RESPONSE TEXT: To clarify, the appropriate diagnosis supported by the clinical indicators: Diabetes Mellitus Type 2 with hyperglycemia, poa, resolved etc. QUERY TEXT: PHYSICIAN'S DOCUMENTATION REQUEST Date of Query: 01/10/2023 10:32 AM EDT Patient Name: Kaitlin Ortiz Admit Date: 01/06/2023 Dear Leonardo Merritt, A review of the medical record indicates additional documentation may be needed. Please review below and update the documentation accordingly. Clinical Indicators: Labs: POC Glucose 310 H 276 H Insulin, Diabetic diet. Please clarify the following regarding the Complications of Diabetes Mellitus (DM): Diabetes Mellitus Type 2 with hyperglycemia, poa, resolved etc. No complications of DM Other Other (explain)Clinically unable to determine (explain)Thank you, Mery Kovacs, CCS, CDIS Use of terms such as suspected, likely, concern for, or probable (associated with a specific diagnosi s that is being evaluated, monitored, or treated as if it exists) are acceptable and can be coded in the inpatient se tting, when documented at the time of discharge. Please use your independent medical judgment in providing your response. THIS QUERY IS PART OF THE PERMANENT MEDICAL RECORD
== END 2023-01-11 14:34 | disposition skilled nursing facility (03) | DRG 522 ==
LOC: HO.ED 16:04 → HO.EDOVER 17:33 → HO.S3 01-04 09:44
PROVIDERS: Internal Medicine; Orthopaedic Surgery; Physician Assistant; Physician Assistant Medical; Admitting Provider Physician Assistant; Emergency Provider Emergency Medicine; PCP Family Medicine; Visit Provider Student in an Organized Health Care Education/Training Program
PROC: 0SRB03A Replacement of Left Hip Joint with Ceramic Synthetic Substitute, Uncemented, Open Approach (ICD-10-PCS; CPT 27130; principal; 2023-01-08 11:50)
DX: M84.452A Pathological fracture, left femur, initial encounter for fracture (principal); D62 Acute posthemorrhagic anemia; E78.00 Pure hypercholesterolemia, unspecified; M16.12 Unilateral primary osteoarthritis, left hip; I10 Essential (primary) hypertension; K21.9 Gastro-esophageal reflux disease without esophagitis; F39 Unspecified mood [affective] disorder; M79.7 Fibromyalgia; E11.65 Type 2 diabetes mellitus with hyperglycemia; N31.9 Neuromuscular dysfunction of bladder, unspecified; Z20.822 Contact with and (suspected) exposure to COVID-19; Z91.040 Latex allergy status; Z87.440 Personal history of urinary (tract) infections; Z91.041 Radiographic dye allergy status; Z88.0 Allergy status to penicillin; Z88.1 Allergy status to other antibiotic agents; Z88.7 Allergy status to serum and vaccine; Z88.8 Allergy status to other drugs, medicaments and biological substances; Z79.84 Long term (current) use of oral hypoglycemic drugs; Z79.891 Long term (current) use of opiate analgesic; Z79.899 Other long term (current) drug therapy
CPT/HCPCS: 36415; 72170; 73700; 74176; 80048; 80076; 80202; 81001; 81003; 82565; 82947; 83605; 83690; 83735; 85014; 85018; 85025; 85027; 85610; 85730; 86850; 86900; 86901; 86923; 87040; 87086; 87088; 87186; 87635; 88304; 88311; 97110; 97116; 97162; 97166; 97530; 97535; 99221; 99285; C1713; C1776; J1100; J1170; J1200; J1650; J2270; J2405; J2795; J3010; J3371; P9016

== ENCOUNTER → 2023-01-24 12:16 | Outpatient (BNVA) | payer MEDICARE, OTHER, SELFPAY | PROVIDERS: PCP Family Medicine; Visit Provider Physician Assistant | DX: Z47.1 Aftercare following joint replacement surgery (principal); Z96.642 Presence of left artificial hip joint | CPT/HCPCS: 99212 ==

== ENCOUNTER 2023-01-25 10:57 | Outpatient (REF) | payer MEDICARE, OTHER, SELFPAY | END 2023-01-25 10:58 | disposition home or self-care (01) | LOC: HO.LNP 10:57 | PROVIDERS: Visit Provider Urology | DX: R68.89 Other general symptoms and signs (principal) | CPT/HCPCS: 87086; 87088 ==

== ENCOUNTER 2023-01-29 11:05 | Emergency (ER) | payer MEDICARE, OTHER, SELFPAY ==
--- NOTE | ~2023-01-29 | XR_ITS ---
EXAMINATION: XR HIP, LEFT CLINICAL INFORMATION: Status post fall one week ago. Left hip surgery. COMPARISON: AP pelvis and left hip 01/08/2023. TECHNIQUE: 2 views of the left hip. FINDINGS: Total left hip arthroplasty with prosthetic components in satisfactory alignment. No periprosthetic fracture or loosening. The soft tissues are normal. XR/XR hip LT w PEL1V IMPRESSION: Total left hip arthroplasty with prosthetic components in satisfactory alignment.
[2023-01-29 11:13] VITALS: BP 131/77; BP 161/51; PULSE 64; PULSE 90; RESP 20; TEMP 36.9; O2SAT 98; O2SAT 99; BMI 33.5
--- NOTE | 2023-01-29 12:04 | ECG_ITS ---
Test Reason : chest pain Blood Pressure : / mmHG Vent. Rate : 065 BPM Atrial Rate : 065 BPM P-R Int : 160 ms QRS Dur : 100 ms QT Int : 430 ms P-R-T Axes : 049 -15 024 degrees QTc Int : 447 ms Normal sinus rhythm Minimal voltage criteria for LVH, may be normal variant ( [place] product ) Nonspecific ST abnormality Abnormal ECG When compared with ECG of 12-FEB-2022 12:11, No significant change was found Referred By: Robert Mireles Electronically Signed By:ITA DAILEY
--- OUTSIDE RECORDS SUMMARY | 2023-01-29 12:25 | XMS_ITS | Patient Health Record ---
Author Name Unknown [facility] Nolan BURNS Care Team Providers Care [employer] Consultant Name Role Phone Prosper Henson Unavailable [phone] PROBLEMS Type Condition ICD9-CM Code AFF92-GA Code Onset Dates Condition Status W/U Status Risk SNOMED Code Notes Problem Primary osteoarthriti s, left ankle and foot M19.072 confirmed [id number] Problem Non-pressure chronic ulcer of other part of right foot limited to breakdown of skin L97.511 confirmed Problem Non-pressure chronic ulcer of other part of left foot limited to breakdown of skin L97.521 confirmed Problem Hallux rigidus, left foot M20.22 confirmed [id number] Problem Hallux valgus (acquired), left foot M20.12 confirmed [id number] Problem Type 1 diabetes mellitus with diabetic polyneuropath y E10.42 confirmed [id number] Problem 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 confirmed [id number] ALLERGIES Allergen (clinical drug ingredient) Drug/Non Drug Allergy documented on EMR Reaction Allergy Type Onset Date Status Penicillin SOB Drug Allergy Active amoxicillin Amoxicillin(ND Code:[address]- 01) SOB Drug Allergy Active Latex Latex hives Drug Allergy Active morphine Morphine vomiting Drug Allergy Active Adhesive Tape rash Drug Allergy Act ricarda Iodinated contrast media (substance) Iodinated Diagnostic Agents hives Drug Allergy Active ciprofloxacin Cipro(ND Code:[address]- 01) anaphylactic shock Drug Allergy Active Levaquin anaphylactic shock Drug Allergy Active ENCOUNTERS from 1945 to 2023-01-29 Encounter Location Date Provider Diagnosis [facility] [address] [place] [address] Oct, Prosper Henson Type 2 diabetes mellitus with diabetic polyneuropathy E11.[address] Oct, Prosper Henson Type 2 diabetes mellitus with diabetic polyneuropathy E11.42 ; Tinea unguium B35.1 ; Pain in left foot M79.672 ; Primary osteoarthritis, left ankle and foot M19.072 ; Pain in left toe(s) M79.675 ; Pain in right toe(s) M79.674 ; Hallux rigidus, left foot M20.22 ; Hallux valgus (acquired), left foot M20.12 and Localized edema R60.[address] [address] Apr, Prosper Henson Type 2 diabetes mellitus with diabetic polyneuropathy E11.42 ; Tinea unguium B35.1 ; Pain in left foot M79.672 ; Primary osteoarthritis, left ankle and foot M19.072 ; Pain in left toe(s) M79.675 ; Pain in right toe(s) M79.674 ; Hallux rigidus, left foot M20.22 ; Hallux valgus (acquired), left foot M20.12 and Localized edema R60.[address] [address] Oct, Prosper Henson Type 2 diabetes mellitus with diabetic polyneuropathy E11.42 ; Tinea unguium B35.1 ; Pain in left foot M79.672 ; Primary osteoarthritis, left ankle and foot M19.072 ; Pain in left toe(s) M79.675 ; Pain in right toe(s) M79.674 ; Hallux rigidus, left foot M20.22 ; Hallux valgus (acquired), left foot M20.12 and Localized edema R60.[address] [address] Aug, [address] [address] Aug, [address] [address] Apr, Prosper Henson Type 2 diabetes mellitus with diabetic polyneuropathy E11.42 ; Tinea unguium B35.1 ; Pain in left foot M79.672 ; Primary osteoarthritis, left ankle and foot M19.072 ; Pain in left toe(s) M79.675 ; Pain in right toe(s) M79.674 ; Hallux rigidus, left foot M20.22 ; Hallux valgus (acquired), left foot M20.12 and Non-pressure chronic ulcer of other part of left foot limited to breakdown of skin L97.[address] [address] Nov, Prosper Henson Type 2 diabetes mellitus with diabetic polyneuropathy E11.42 ; Tinea unguium B35.1 ; Pain in left foot M79.672 ; Primary osteoarthritis, left ankle and foot M19.072 ; Pain in left toe(s) M79.675 ; Pain in right toe(s) M79.674 ; Hallux rigidus, left foot M20.22 and Hallux valgus (acquired), left foot M20.[address] [address] Jul, Prosper Henson Type 2 diabetes mellitus with diabetic polyneuropathy E11.42 ; Tinea unguium B35.1 ; Pain in left foot M79.672 ; Primary osteoarthritis, left ankle and foot M19.072 ; Pain in left toe(s) M79.675 ; Pain in right toe(s) M79.674 ; Hallux rigidus, left foot M20.22 and Hallux valgus (acquired), left foot M20.[address] [address] Mar, Prosper Henson Type 2 diabetes mellitus with diabetic polyneuropathy E11.[address] [address] Mar, Prosper Henson Type 2 diabetes mellitus with diabetic polyneuropathy E11.42 ; Tinea unguium B35.1 ; Pain in left foot M79.672 ; Primary osteoarthritis, left ankle and foot M19.072 ; Pain in left toe(s) M79.675 ; Pain in right toe(s) M79.674 ; Hallux rigidus, left foot M20.22 ; Hallux valgus (acquired), left foot M20.12 and Contusion of left foot, initial encounter S90.32XA [facility] [address] [place] [address] January, [address] [address] Oct, Prosper Henson Type 2 diabetes mellitus with diabetic polyneuropathy E11.42 ; Tinea unguium B35.1 ; Pain in left foot M79.672 ; Primary osteoarthritis, left ankle and foot M19.072 ; Pain in left toe(s) M79.675 ; Pain in right toe(s) M79.674 ; Hallux rigidus, left foot M20.22 and Hallux valgus (acquired), left foot M20.[address] [address] Jul, Prosper Henson Type 2 diabetes mellitus with diabetic polyneuropathy E11.42 ; Tinea unguium B35.1 ; Pain in left foot M79.672 ; Primary osteoarthritis, left ankle and foot M19.072 ; Pain in left toe(s) M79.675 ; Pain in right toe(s) M79.674 ; Hallux rigidus, left foot M20.22 and Hallux valgus (acquired), left foot M20.[address] [address] Apr, Prosper Henson Type 2 diabetes mellitus with diabetic polyneuropathy E11.42 ; Tinea unguium B35.1 ; Pain in left foot M79.672 ; Primary osteoarthritis, left ankle and foot M19.072 ; Pain in left toe(s) M79.675 ; Pain in right toe(s) M79.674 ; Hallux rigidus, left foot M20.22 and Hallux valgus (acquired), left foot M20.[address] [address] January, Prosper Henson Type 2 diabetes mellitus with diabetic polyneuropathy E11.42 ; Tinea unguium B35.1 ; Pain in left foot M79.672 ; Primary osteoarthritis, left ankle and foot M19.072 ; Pain in left toe(s) M79.675 ; Pain in right toe(s) M79.674 ; Hallux rigidus, left foot M20.22 and Hallux valgus (acquired), left foot M20.[address] [address] Oct, Prosper Henson Type 2 diabetes mellitus with diabetic polyneuropathy E11.42 ; Tinea unguium B35.1 ; Pain in left foot M79.672 ; Primary osteoarthritis, left ankle and foot M19.072 ; Pain in left toe(s) M79.675 ; Pain in right toe(s) M79.674 ; Hallux rigidus, left foot M20.22 and Hallux valgus (acquired), left foot M20.[address] [address] Jul, [facility] Henson [address] [address] Jul, Prosper Henson Type 2 diabetes mellitus with diabetic polyneuropathy E11.42 ; Tinea unguium B35.1 ; Pain in left foot M79.672 ; Primary osteoarthritis, left ankle and foot M19.072 ; Pain in left toe(s) M79.675 and Pain in right toe(s) M79.[address] [address] Apr, Prosper Henson Type 2 diabetes mellitus with diabetic polyneuropathy E11.42 ; Tinea unguium B35.1 ; Pain in left foot M79.672 and Primary osteoarthritis, left ankle and foot M19.[address] [address] Mar, [address] [address] Feb, [address] [place] [address] Feb, Prosper Henson Type 2 diabetes mellitus with diabetic polyneuropathy E11.42 ; Tinea unguium B35.1 ; Pain in left foot M79.672 and Primary osteoarthritis, left ankle and foot M19.072 IMMUNIZATIONS Vaccine Route Administration Date Status COVID-19 Moderna Vaccine Unknown May 19, 2021 Ad ministered Influenza Unknown May 10, 2021 Administered Influenza Unknown May 12, 2018 Administered SOCIAL HISTORY Tobacco Use: Social History Observation Description Date Details (start date - stop date) Never Smoker Sex Assigned At : Social History Observation Description Sex Assigned At Unknown Alcohol Screen Question Answer Notes Did you have a drink containing alcohol in the p ast year? No Points 0 Interpretation Negative Tobacco Use/Smoking Question Answer Notes Are you a: never smoker Tobacco use other than smoking: Question Answer Notes Are you an other tobacco user? No REASON FOR REFERRAL No Information VITAL SIGNS from 1945 to 2023-01-29 Height 5 ft 4 in in Oct, Weight 199 lbs Oct, BMI 34.15 kg/m2 Oct, Heart Rate 70 /min Oct, Temperature 97.2 degrees Fahrenheit Nov, Blood pressure systolic 135 mm Hg Jul, Blood pressure diastolic 70 mm Hg Jul, MEDICATIONS Medication SIG (Take, Route, Frequency, Duration) Notes Start Date End Date Status Vitamin D 1000 UNIT 1 tablet Orally Once a day Active DULoxetine HCl 30 MG 1 capsule Orally On ce a day Active Sulindac 150 MG 1 tablet with food Orally Twice a day Active Omeprazole 20 MG 1 capsule Orally Onc e a day Active CeleXA 10 MG 1 tablet Orally Once a day Active Voltaren 1 % as directed Externally Oct, Active metFORMIN HCl Active Carvedilol 25 MG Orally Act ricarda Spironolactone 25 MG 1 tablet with food Orally Once a day Active Extra Depth Diabetic Shoes with 3 Pair Custom heat-molded multi-density innersoles for 1 year Dx: Nov, A ctive Furosemide Active Nifedical XL Active Calcium Active Flexeril Active Extra Depth Diabetic Shoes with 3 Pair Custom heat-molded multi-density innersoles for 1 year Dx: Apr, A ctive Avinza Active Extra Depth Orthopedic Shoes (1 Pair) with Customized Heat Molded Multidensity Innersoles (3 Pair) as directed Dx: NIDDM/Polyneuropathy (E11.42), Hammertoe Foot Deformity (M20.41,M20.42), Preulcerative Skin Lesion(s) (L85.1 January, Not-Taking Lorazepam prn Active Imbruvica Active Extra Depth Diabetic Shoes with 3 Pair Custom heat-molded multi-density innersoles for 1 year Dx: Feb, N ot-Taking Simvastatin 40 MG 1 tablet in the evening Orally Once a day Active Victoza Not-Taking RESULTS from 1945 to 2023-01-29 Component Value Reference Range Notes HEMOGLOBIN A1C (GLYCOHEMOGLO BIN) Reviewed date:10/24/2022 12:07:03 Interpretation: Performing Lab: Notes/Report: TOTAL HEMOGLOBIN (HGBA1C) HEMOGLOBIN A1C (HH) HEMOGLOBIN A1C % (HH) 7.2 ESTIMATED AVG GLUCOSE HEMOGLOBIN A1C (GLYCOHEMOGLO BIN) Reviewed date:10/12/2019 14:26:56 Interpretation: Performing Lab: Notes/Report: TOTAL HEMOGLOBIN (HGBA1C) HEMOGLOBIN A1C (HH) HEMOGLOBIN A1C % (HH) 6.8 ESTIMATED AVG GLUCOSE HEMOGLOBIN A1C (GLYCOHEMOGLO BIN) Reviewed date:04/13/2019 13:52:01 Interpretation: Performing Lab: Notes/Report: TOTAL HEMOGLOBIN (HGBA1C) HEMOGLOBIN A1C (HH) HEMOGLOBIN A1C % (HH) 6.7 ESTIMATED AVG GLUCOSE HEMOGLOBIN A1C (GLYCOHEMOGLO BIN) Reviewed date:01/12/2019 13:46:14 Interpretation: Performing Lab: Notes/Report: TOTAL HEMOGLOBIN (HGBA1C) HEMOGLOBIN A1C (HH) HEMOGLOBIN A1C % (HH) 7.6 ESTIMATED AVG GLUCOSE Hemoglobin A1c Reviewed date:10/13/2018 15:27:55 Interpretation: Performing Lab: Notes/Report: Hemoglobin A1c 6.9 Hemoglobin A1c Reviewed date:07/21/2018 14:08:01 Interpretation: Performing Lab: Notes/Report: Hemoglobin A1c 7 REASON FOR VISIT No Information MEDICAL (GENERAL) HISTORY Type Description Date Medical History Arthritis Medical History asthma Medical History Back,Hip,and Knee pain Medical History Diverticulosis Medical History Fibromyalgia Medical History Hepatitis Medical History Hiatal hernia Medical History High blood pressure Medical History Numbness Medical History Neuropathy Medical History Reflux ( GERD) Medical History Sciatica Medical History Stroke Medical History Measles Medical History Mumps Medical History Chicken pox Medical History Transfusions Medical History Chronic Lymphocytic Leukemia Medical History type II diabetes Surgical History left side veins removed 11/2018 Surgical History IVIG- Inteavnous Immunogloblin Treatments Monthly MENTAL STATUS No Information ASSESSMENTS Encounter Date Diagnosis Assessment Notes Treatment Notes Treatment Clinical Notes Oct, Tinea unguium (ICD-1 0 - B35.1) Oct, Type 2 diabetes mellitus with diabetic polyneuropathy (ICD-10 - E11.42) Oct, Type 2 diabetes mellitus with diabetic polyneuropathy (ICD-10 - E11.42) Oct, Pain in left foot (ICD-10 - M79.672) Oct, Primary osteoarthritis, left ankle and foot (ICD-10 - M19.072) Oct, Pain in left toe(s) (ICD-10 - M79.675) Oct, Pain in right toe(s) (ICD-10 - M79.674) Oct, Hallux rigidus, left foot (ICD-10 - M20.22) Oct, Hallux valgus (acquired), left foot (ICD-10 - M20.12) Oct, Localized edema (ICD-10 - R60.0) Apr, Type 2 diabetes mellitus with diabetic polyneuropathy (ICD-10 - E11.42) Apr, Tinea unguium (ICD-1 0 - B35.1) Apr, Pain in left foot (ICD-10 - M79.672) Apr, Primary osteoarthritis, left ankle and foot (ICD-10 - M19.072) Apr, Pain in left toe(s) (ICD-10 - M79.675) Apr, Pain in right toe(s) (ICD-10 - M79.674) Apr, Hallux rigidus, left foot (ICD-10 - M20.22) Apr, Hallux valgus (acquired), left foot (ICD-10 - M20.12) Apr, Localized edema (ICD-10 - R60.0) 09 Oct, 2021 Tinea unguium (ICD-1 0 - B35.1) Oct, Type 2 diabetes mellitus with diabetic polyneuropathy (ICD-10 - E11.42) Oct, Pain in left foot (ICD-10 - M79.672) Oct, Primary osteoarthritis, left ankle and foot (ICD-10 - M19.072) Oct, Pain in left toe(s) (ICD-10 - M79.675) Oct, Pain in right toe(s) (ICD-10 - M79.674) Oct, Hallux rigidus, left foot (ICD-10 - M20.22) Oct, Hallux valgus (acquired), left foot (ICD-10 - M20.12) Oct, Localized edema (ICD-10 - R60.0) Apr, Type 2 diabetes mellitus with diabetic polyneuropathy (ICD-10 - E11.42) Apr, Tinea unguium (ICD-1 0 - B35.1) Apr, Pain in left foot (ICD-10 - M79.672) Apr, Primary osteoarthritis, left ankle and foot (ICD-10 - M19.072) Apr, Pain in left toe(s) (ICD-10 - M79.675) Apr, Pain in right toe(s) (ICD-10 - M79.674) Apr, Hallux rigidus, left foot (ICD-10 - M20.22) Apr, Hallux valgus (acquired), left foot (ICD-10 - M20.12) Apr, Non-pressure chronic ulcer of other part of left foot limited to breakdown of skin (ICD-10 - L97.521) Nov, Tinea unguium (ICD-1 0 - B35.1) Nov, Type 2 diabetes mellitus with diabetic polyneuropathy (ICD-10 - E11.42) Nov, Pain in left foot (ICD-10 - M79.672) Nov, Primary osteoarthritis, left ankle and foot (ICD-10 - M19.072) Nov, Pain in left toe(s) (ICD-10 - M79.675) Nov, Pain in right toe(s) (ICD-10 - M79.674) Nov, Hallux rigidus, left foot (ICD-10 - M20.22) Nov, Hallux valgus (acquired), left foot (ICD-10 - M20.12) Jul, Tinea unguium (ICD-1 0 - B35.1) Jul, Type 2 diabetes mellitus with diabetic polyneuropathy (ICD-10 - E11.42) Jul, Pain in left foot (ICD-10 - M79.672) Jul, Primary osteoarthritis, left ankle and foot (ICD-10 - M19.072) Jul, Pain in left toe(s) (ICD-10 - M79.675) Jul, Pain in right toe(s) (ICD-10 - M79.674) Jul, Hallux rigidus, left foot (ICD-10 - M20.22) Jul, Hallux valgus (acquired), left foot (ICD-10 - M20.12) Mar, Type 2 diabetes mellitus with diabetic polyneuropathy (ICD-10 - E11.42) Mar, Type 2 diabetes mellitus with diabetic polyneuropathy (ICD-10 - E11.42) Mar, Tinea unguium (ICD-1 0 - B35.1) Mar, Pain in left foot (ICD-10 - M79.672) Mar, Primary osteoarthritis, left ankle and foot (ICD-10 - M19.072) Mar, Pain in left toe(s) (ICD-10 - M79.675) Mar, Pain in right toe(s) (ICD-10 - M79.674) Mar, Hallux rigidus, left foot (ICD-10 - M20.22) Mar, Hallux valgus (acquired), left foot (ICD-10 - M20.12) Mar, Contusion of left foot, initial encounter (ICD-10 - S90.32XA) Oct, Type 2 diabetes mellitus with diabetic polyneuropathy (ICD-10 - E11.42) Oct, Tinea unguium (ICD-1 0 - B35.1) Oct, Pain in left foot (ICD-10 - M79.672) Oct, Primary osteoarthritis, left ankle and foot (ICD-10 - M19.072) Oct, Pain in left toe(s) (ICD-10 - M79.675) Oct, Pain in right toe(s) (ICD-10 - M79.674) Oct, Hallux rigidus, left foot (ICD-10 - M20.22) Oct, Hallux valgus (acquired), left foot (ICD-10 - M20.12) Jul, Type 2 diabetes mellitus with diabetic polyneuropathy (ICD-10 - E11.42) Jul, Tinea unguium (ICD-1 0 - B35.1) Jul, Pain in left foot (ICD-10 - M79.672) Jul, Primary osteoarthritis, left ankle and foot (ICD-10 - M19.072) Jul, Pain in left toe(s) (ICD-10 - M79.675) Jul, Pain in right toe(s) (ICD-10 - M79.674) Jul, Hallux rigidus, left foot (ICD-10 - M20.22) Jul, Hallux valgus (acquired), left foot (ICD-10 - M20.12) Apr, Type 2 diabetes mellitus with diabetic polyneuropathy (ICD-10 - E11.42) Apr, Tinea unguium (ICD-1 0 - B35.1) Apr, Pain in left foot (ICD-10 - M79.672) Apr, Primary osteoarthritis, left ankle and foot (ICD-10 - M19.072) Apr, Pain in left toe(s) (ICD-10 - M79.675) Apr, Pain in right toe(s) (ICD-10 - M79.674) Apr, Hallux rigidus, left foot (ICD-10 - M20.22) Apr, Hallux valgus (acquired), left foot (ICD-10 - M20.12) January, Type 2 diabetes mellitus with diabetic polyneuropathy (ICD-10 - E11.42) January, Tinea unguium (ICD-1 0 - B35.1) January, Pain in left foot (ICD-10 - M79.672) January, Primary osteoarthritis, left ankle and foot (ICD-10 - M19.072) January, Pain in left toe(s) (ICD-10 - M79.675) January, Pain in right toe(s) (ICD-10 - M79.674) January, Hallux rigidus, left foot (ICD-10 - M20.22) January, Hallux valgus (acquired), left foot (ICD-10 - M20.12) Oct, Type 2 diabetes mellitus with diabetic polyneuropathy (ICD-10 - E11.42) Oct, Tinea unguium (ICD-1 0 - B35.1) Oct, Pain in left foot (ICD-10 - M79.672) Oct, Primary osteoarthritis, left ankle and foot (ICD-10 - M19.072) Oct, Pain in left toe(s) (ICD-10 - M79.675) Oct, Pain in right toe(s) (ICD-10 - M79.674) Oct, Hallux rigidus, left foot (ICD-10 - M20.22) Oct, Hallux valgus (acquired), left foot (ICD-10 - M20.12) Jul, Type 2 diabetes mellitus with diabetic polyneuropathy (ICD-10 - E11.42) Jul, Tinea unguium (ICD-1 0 - B35.1) Jul, Pain in left foot (ICD-10 - M79.672) Jul, Primary osteoarthritis, left ankle and foot (ICD-10 - M19.072) Jul, Pain in left toe(s) (ICD-10 - M79.675) Jul, Pain in right toe(s) (ICD-10 - M79.674) Apr, Type 2 diabetes mellitus with diabetic polyneuropathy (ICD-10 - E11.42) Apr, Tinea unguium (ICD-1 0 - B35.1) Apr, Pain in left foot (ICD-10 - M79.672) Apr, Primary osteoarthritis, left ankle and foot (ICD-10 - M19.072) Feb, Type 2 diabetes mellitus with diabetic polyneuropathy (ICD-10 - E11.42) Feb, Tinea unguium (ICD-1 0 - B35.1) Feb, Pain in left foot (ICD-10 - M79.672) Feb, Primary osteoarthritis, left ankle and foot (ICD-10 - M19.072) PLAN OF TREATMENT Medication Medication Name Sig Start Date Stop Date Voltaren 1 % as directed Externally Oct, Extra Depth Diabetic Shoes w ith 3 Pair Custom heat-molded multi-density innersoles for 1 year Dx: Nov, Pending Tests Test Name Order Date 99318-XMUP SKIN LESIONS, OVER 4 18379-XYGZ SKIN LESIONS, OVER 4 49243-HPSJ SKIN LESIONS, OVER 4 C3349-UEURMFAK DYSTROPHIC NAILS ANY # 20 27-11-28 35986-LPZO SKIN LESIONS, OVER 4 T1276-AGBMBVLG DYSTROPHIC NAILS ANY # 20 29-07-23 X ray : Foot, left 3V 2020-03-30 04242-QEXE SKIN LESIONS, OVER 4 K4755-KMREGVVH DYSTROPHIC NAILS ANY # 20 28-03-22 78816-TWCX SKIN LESIONS, OVER 4 B6581-INVJSKRL DYSTROPHIC NAILS ANY # 20 29-10-02 04657-NNAK SKIN LESIONS, OVER 4 D8348-SJWNDEZE DYSTROPHIC NAILS ANY # 20 28-07-04 67487-MXBL SKIN LESIONS, OVER 4 C4236-TXNMJGCV DYSTROPHIC NAILS ANY # 20 27-04-05 96195-BRKK SKIN LESIONS, OVER 4 N6676-NRWHZYSE DYSTROPHIC NAILS ANY # 20 25-01-06 62219-NPJDLNN NAIL, 1-5 2018-10-13 11171-GGCG SKIN LESIONS, OVER 4 47060, D5706-KDUYQ/INJECT, JOINT/BURSA 2 O1899-HWMSCYZE DYSTROPHIC NAILS ANY # 20 28-10-03 66459-TKUZUOP NAIL, 1-5 2018-07-21 50303-HAKD SKIN LESIONS, OVER 4 X6827-EYVFFWYE DYSTROPHIC NAILS ANY # 20 27-07-12 25609-SGFDTZH NAIL, 1-5 2018-05-05 00446, J0702- INJECT or DRAIN, JOINT/BUR SA 2018-05-05 55817-PVYO SKIN LESIONS, OVER 4 X ray : Foot, left 3V 2018-02-19 68361-DZKM SKIN LESIONS, 2 TO 4 82465- Nail Unit Biopsy 2018-02-19 Next Appt Details Provider Name:Prosper David Henson, 2023-06-24 12:00:00 AM, [address] [place], [address], Insurance Providers Payer Name Payer Address Payer Phone Insured Name Patient Relationship to Insured Coverage Start Date Coverage End Date Subscriber Number Group Number Medicare [employer] [address] [facility] [place] [address] Kaitlin Ortiz Self - patient is the insured 3 [id number] [employer] [place] Medicare Advantage [facility] [address] [facility] [address] Kaitlin Ortiz Self - patient is the insured [id number]
[2023-01-29 12:56] LABS: MANUAL DIFF FLAG NO
[2023-01-29 12:58] LABS: Basophils Percent Auto 0.1 % (0-2); Eosinophils Percent Auto 0.2 % (0-4); Hemoglobin 8.7 g/dl (12.0-16.0); Imm Gran Abs Auto 0.11 X10*3/uL (0.00-0.03); Imm Gran Pct Auto 1.3 % (0.0-0.4); Lymphocytes Absolute Auto 1.8 X10*3/uL (1.2-4.9); Lymphocytes Percent Auto 20.9 % (20-40); Mean Corpuscular HGB Conc 31.1 g/dl (31.0-35.0); Mean Corpuscular Hemoglobin 27.3 pg (27.0-33.0); Mean Corpuscular Volume 87.8 fL (80.0-98.0); Monocytes Absolute Auto 0.7 X10*3/uL (0.1-1.2); Monocytes Percent Auto 8.3 % (2-11); Neutrophils Absolute Auto 5.9 x10*3/uL (2.0-8.3); Neutrophils Percent Auto 69.2 % (45-73); Platelet Count 159 X10*3/uL (160-400); Red Blood Count 3.19 X10*6/uL (4.20-5.50); Red Cell Distribution Width 17.7 % (11.0-16.0); White Blood Count 8.5 X10*3/uL (4.8-10.8)
[2023-01-29 13:18] LABS: Troponin-I High Sensitivity 14.5 ng/L (<3.5-17.0)
[2023-01-29 13:25] LABS: Anion Gap 14 (12-20); Blood Urea Nitrogen 10 mg/dL (9-16); Carbon Dioxide 27 mmol/L (22-29); Chloride 99 mmol/L (96-108); Creatinine Clr Calc Pharmacy 62.8; Estimated Glomerular Filt Rate > 60; Glucose Random 146 mg/dL (60-115); Magnesium 1.7 mg/dL (1.6-2.6); Potassium 4.6 mmol/L (3.3-5.1); Sodium 135 mmol/L (135-145)
--- NOTE | 2023-01-29 14:10 | ED.GENADULT ---
HPI - General Adult General Chief complaint: Weakness Stated complaint: LT HIP PAIN Time Seen by Provider: 01/29/23 11:51 Source: patient and family () Mode of arrival: EMS Limitations: no limitations History of Present Illness HPI narrative: 77-year-old female who presents emergency department for evaluation of right hip pain. The patient had a left total hip replacement on 01/08/2023. The patient's surgery was complicated by acute on chronic anemia requiring transfusions. The patient had a follow-up orthopedic visit on 01/24/2023 she reported having a lot of pain with a level of 10/10. She was given a prescription for oxycodone 5 mg q.4 hours p.r.n. dispense 42 tablets. The patient states that she was taking a shower 1 week prior and slipped and fell to the shower floor. She states that she had increased pain in her left hip at that time. Patient states that she is able to walk with a walker. Patient was scheduled to see her PCP today Dr. Shaun Breen however she had increased pain. Dr. Breen did contact me in told me that he was concerned that the patient may have injured her left hip from a fall. Patient's hematocrit as an outpatient was also 25.7. Patient's urine did grow candidiasis. Patient presented to the emergency department by ambulance. She denied fever, chills, rhinorrhea, sore throat, chest pain. She states she does feel short of breath, she has dyspnea on exertion she does feel fatigued. She denied nausea, vomiting, diarrhea. She states she is taking iron supplements in her stools are green. She has not noticed any dark black stools or bloody stools. Related Data Home Medications Medication Instructions Recorded Confirmed citalopram 20 mg tablet 20 mg PO DAILY 07/21/20 01/24/23 duloxetine 60 mg capsule,delayed 60 mg PO DAILY 07/21/20 01/24/23 release spironolactone 25 mg tablet 25 mg PO DAILY 07/21/20 01/24/23 amlodipine 10 mg tablet 10 mg PO DAILY 03/23/21 01/24/23 metformin 1,000 mg tablet 1,000 mg PO BID 04/19/21 01/24/23 carvedilol 25 mg tablet 25 mg PO BID 05/31/21 01/24/23 blood sugar diagnostic (Accu-Chek #10 ea 09/04/22 01/24/23 Guide test strips) ibrutinib 420 mg tablet (Imbruvica) 420 mg PO DAILY 10/30/22 01/24/23 sennosides 8.6 mg tablet (senna) 17.2 mg PO BEDTIME PRN Constipation 10/30/22 01/24/23 coenzyme Q10 100 mg capsule 100 mg PO BEDTIME 01/03/23 01/24/23 (CoQ-10) magnesium 250 mg tablet 250 mg PO BEDTIME 01/03/23 01/24/23 methenamine hippurate 1 gram tablet 1 g PO BID 01/03/23 01/24/23 multivitamin 1 tab PO DAILY 01/03/23 01/24/23 phenazopyridine 100 mg tablet 100 mg PO BID 01/03/23 01/24/23 (Pyridium) pregabalin 150 mg capsule 150 mg PO BID 01/03/23 01/24/23 tramadol 50 mg tablet 50 mg PO BID PRN pain 01/03/23 01/24/23 Previous Rx's Medication Instructions Recorded aspirin 81 mg tablet,delayed 81 mg PO DAILY #90 tabs 07/10/21 release (Enteric Coated Aspirin) syringe with needle 3 mL 22 x 1 #20 ea 04/24/2209/10 (BD Luer-Humphrey Syringe) famotidine 40 mg tablet 40 mg PO BEDTIME #90 tabs 05/29/22 pantoprazole 40 mg tablet,delayed 40 mg PO DAILY #90 tabs 08/14/22 release atorvastatin 80 mg tablet 80 mg PO QPM #90 tabs 09/28/22 ferrous sulfate 325 mg (65 mg 325 mg PO DAILY #120 tabs 11/13/22 iron) tablet (iron) ascorbic acid (vitamin C) 1,000 mg 1,000 mg PO DAILY 90 days #90 tabs 12/06/22 tablet estradiol 10 mcg vaginal tablet 10 mcg vaginal 2XW 90 days #26 tabs 12/18/22 (Vagifem) acetaminophen 325 mg tablet 650 mg PO Q6H PRN Pain, Mild (Pain 01/11/23 Scale 1-3) 30 days #240 tabs celecoxib 200 mg capsule 200 mg PO BID 30 days #60 caps 01/11/23 enoxaparin 40 mg/0.4 mL 40 mg (0.4 mL) subcut Q24H 6 weeks 01/11/23 subcutaneous syringe #16.8 mL oxycodone 5 mg tablet 5 mg PO Q4H PRN Pain, 01/24/23 Moderate(Pain Scale 4-6) 7 days #42 tabs nitrofurantoin 100 mg PO BID UTI 10 days #20 caps 01/25/23 monohydrate/macrocrystals 100 mg capsule (Macrobid) fluconazole 150 mg tablet 150 mg PO Q3D 6 days #2 tabs 01/28/23 Allergies Allergy/AdvReac Type Severity Reaction Status Date / Time amoxicillin [AMOXICILLIN] Allergy Severe stroke, Verified 01/24/23 12:28 blood clots ciprofloxacin [From CIPRO] Allergy Severe ANAPHYLAXIS Verified 01/24/23 12:28 Iodinated Contrast Media Allergy Severe HIVES Verified 01/24/23 12:28 [IV DYE, IODINE CONTAINING CONTRAST ] levofloxacin Allergy Severe Anaphylaxis Verified 01/24/23 12:28 liraglutide Allergy Severe Headache Verified 01/24/23 12:28 Penicillins Allergy Severe stroke, Verified 01/24/23 12:28 blood clots phenazopyridine [Pyridium] Allergy Severe Anaphylaxis Verified 01/24/23 12:28 FREYA Inhibitors Allergy Intermediate Cough Verified 01/24/23 12:28 ARB-Angiotensin Receptor Allergy Intermediate Cough Verified 01/24/23 12:28 Antagonist atorvastatin Allergy Intermediate Shortness Verified 01/24/23 12:28 of Breath cefpodoxime Allergy Intermediate Dizziness, Verified 01/24/23 12:28 nausea celecoxib [From CELEBREX] Allergy Intermediate HIVES Verified 01/24/23 12:28 doxazosin Allergy Intermediate Shortness Verified 01/24/23 12:28 of Breath fluticasone [Advair Diskus] Allergy Intermediate Anxiety Verified 01/24/23 12:28 gabapentin [From Neurontin] Allergy Intermediate Headache Verified 01/24/23 12:28 hydralazine Allergy Intermediate Shortness Verified 01/24/23 12:28 of Breath latex Allergy Intermediate Hives Verified 01/24/23 12:28 linezolid Allergy Intermediate Nausea and Verified 01/24/23 12:28 Vomiting meloxicam Allergy Intermediate Unknown Verified 01/24/23 12:28 salmeterol [Advair Diskus] Allergy Intermediate Anxiety Verified 01/24/23 12:28 Tetanus Vaccines and Toxoid Allergy Intermediate Swelling Verified 01/24/23 12:28 torsemide Allergy Intermediate Shortness Verified 01/24/23 12:28 of Breath cephalexin [Keflex] Allergy Mild Nausea Verified 01/24/23 12:28 Review of Systems Review of Systems: Yes all other systems are reviewed and are negative [facility] Past Medical History [facility] Narrative: Social history: She lives at home with her . She denies tobacco, alcohol and drug use. Medical History Allergy to multiple antibiotics Anemia Arthritis Arthritis of left hip CLL (chronic lymphocytic leukemia) CLL (chronic lymphocytic leukemia) Depression Diabetes mellitus Diabetes with neurologic complications Fibromyalgia History of bilateral breast cancer History of blood transfusion History of CVA (cerebrovascular accident) History of numbness Hypercholesterolemia Hypertension Morbid obesity Neurogenic urinary bladder disorder Osteoarthritis PONV (postoperative nausea and vomiting) Seasonal allergies Self-catheterizes urinary bladder Sleep apnea Type 2 diabetes mellitus with unspecified complications Urinary retention with incomplete bladder emptying Wears dentures Surgical History History of back surgery History of biopsy of bladder History of bladder repair surgery History of esophagogastroduodenoscopy (EGD) History of suprapubic catheter History of total hysterectomy Hx of colonoscopy S/P Botox injection S/P breast biopsy, right S/P left breast biopsy Family History Family History Mother Breast cancer Father Heart disease Father Lung cancer Mother Colon cancer Brother Pancreatic cancer Social History Social History Household Members: Spouse Housing: House Are you a primary manager critical care unit to a significant other at home: No Do you presently have visiting nurse or other home services: Yes Alcohol intake: never Patient Tobacco Use Status: Never used Tobacco Smoked in Last 30 Days: No Use of substances other than those prescribed or required for medical reasons: No Advance Directives: Yes Advance Directives Information Provided: Yes Advance Directives on File: No Advance Directives Date on File: 04/11/22 service: No Current occupational status: retired Physical Exam ED Vital Signs: Vital Signs - 24 hr 01/29/23 11:13 01/29/23 15:35 01/29/23 16:35 Temperature 98.4 F 98.9 F 98.7 F Pulse Rate 64 70 69 Respiratory Rate 20 12 12 Blood Pressure 161/51 H 127/47 L 116/45 L Pulse Oximetry 98 92 94 Oxygen Delivery Method Room Air Room Air Room Air BMI result Body Mass Index 33.5 Const General: cooperative and no acute distress Orientation/consciousness: oriented to person and oriented to place Limitations: no limitations HENMT Head: Yes normal to inspection, Yes normocephalic and Yes atraumatic Ears: external ears normal General nose exam: Normal external nose present Face and sinus: Yes normal facial exam Mouth: Normal oral and palatal mucosa present Throat: Yes posterior oropharynx normal Eyes General: appearance normal, both eyes and all related structures Neck Neck: Yes normal visual inspection, Yes no lymphadenopathy, Yes trachea midline and Yes supple Chest Chest palpation & inspection: normal inspection of the chest and normal palpation of entire chest wall Resp Effort & Inspection: normal respiratory effort and able to speak in complete sentences Auscultation: clear to auscultation bilaterally Cardio Rate: regular rate Rhythm: regular rhythm Heart sounds: S1 normal heart sound present, S2 normal heart sound present and no murmurs GI Other: Patient's suprapubic catheter Inspection: Yes normal to inspection Palpation (GI): Soft to palpation, nontender and no guarding Auscultation: normal bowel sounds General: Yes no CVA tenderness Back/Spine/Pelvis Back: no CVA tenderness Skin General skin exam: no rashes or lesions noted Neuro General: oriented to person and oriented to place Cognition (Neuro): normal cognition Motor exam (neuro): 5/5 motor strength present throughout Extrem Other: Patient has bruising to her lower extremities but no evidence of cellulitis or infection. She does have tenderness palpation of her left lateral hip as well as pain with minimal movement of her left hip joint, her extremities neurovascular intact Psych Appearance: grossly normal Speech and movement: Normal speech and movement present Affect: normal affect Attitude: cooperative Medications Administered Discontinued Medications Generic Name Dose Route Start Last Admin Trade Name Freq PRN Reason Stop Dose Admin Oxycodone HCl 5 mg 01/29/23 14:20 01/29/23 14:39 Oxycodone Hcl Immed Release 5 Mg Tablet PO 01/29/23 14:21 5 mg ONCE STA Administration Medical Decision Making Medical Decision Making [facility] Narrative: 77-year-old female who was brought to emergency department by ambulance for evaluation of left hip pain, the patient had a left total hip replacement on 01/08/2023, she reported a fall 1 week prior, she did have a follow-up visit with her orthopedic providers on 01/24/2023 and had a refill of her oxycodone. She states that oxycodone has been helping her pain. Patient does have a history of chronic lymphocytic leukemia and has chronic anemia. Patient's physical examination did reveal pain with palpation of her left lateral hip, she has increased pain with minimal movement of her left hip. She has bruising to her lower extremities but no evidence of cellulitis. The following tests were ordered: CBC, BMP, magnesium, troponin, 12 EKG, left hip with pelvis. I did order oxycodone 5 mg orally for the patient's pain. 1532: My interpretation patient's laboratory evaluation is as follows: Anemia with an H&H of 8.7 and 28-this is chronic. Low platelet count 159-chronic. BMP was normal except for an elevated glucose of 146. High sensitive troponin I was detectable but not elevated 14.5. Urinalysis is positive for blood, nitrites, leukocyte esterase, greater than 20 RBCs greater than 50 WBCs, 0-2 epithelial cells, trace bacteria-UA microscopic similar to previous ones, patient has colonization with candidiasis which I do not Think he was to be treated at this time. The x-ray of the patient's left hip was interpreted by me as no dislocation no acute fracture, this concurs with the radiologist interpret I did talk to the patient's primary care doctor, Dr. Shaun Breen. At this time I do not think the patient needs transfusion or treatment for candidiasis and bladder. The patient will be discharged home. The patient does have oxycodone that was recently prescribed by her orthopedic provider. Differential Diagnosis Differential diagnosis includes but is not limited to anemia, electrolyte abnormality, urinary tract infection, left hip fracture, left hip dislocation, pelvic fracture Consult Healthcare Provider Management of the patient was discussed with: Primary Care Provider Lab Data [facility] Lab Attestation statement: I reviewed the patient's lab results. See MDM 01/29/23 12:53 01/29/23 12:53 Labs: Lab Results 01/29/23 01/29/23 01/29/23 Range/Units 12:53 12:53 12:53 WBC 8.5 (4.8-10.8) X10*3/uL RBC 3.19 L (4.20-5.50) X10*6/uL Hgb 8.7 L (12.0-16.0) g/dl Hct 28.0 L (37.0-47.0) % MCV 87.8 (80.0-98.0) fL MCH 27.3 (27.0-33.0) pg MCHC 31.1 (31.0-35.0) g/dl RDW 17.7 H (11.0-16.0) % Plt Count 159 L (160-400) X10*3/uL MPV 10.0 (9.4-12.3) fL Immature Gran % (Auto) 1.3 H (0.0-0.4) % Neut % (Auto) 69.2 (45-73) % Lymph % (Auto) 20.9 (20-40) % Humphreys % (Auto) 8.3 (2-11) % Eos % (Auto) 0.2 (0-4) % Baso % (Auto) 0.1 (0-2) % Lymph # (Auto) 1.8 (1.2-4.9) X10*3/uL Humphreys # (Auto) 0.7 (0.1-1.2) X10*3/uL Eos # (Auto) 0.0 (0.0-0.4) X10*3/uL Baso # (Auto) 0.0 (0.0-0.2) X10*3/uL Abs Immat Gran (auto) 0.11 H (0.00-0.03) X10*3/uL Absolute Neuts (auto) 5.9 (2.0-8.3) x10*3/uL Absolute Nucleated RBC 0.000 (0.0-0.012) X10*3/uL Nucleated RBC % (auto) 0.0 (0.0-0.2) /100WBC Sodium 135 (135-145) mmol/L Potassium 4.6 (3.3-5.1) mmol/L Chloride 99 (96-108) mmol/L Carbon Dioxide 27 (22-29) mmol/L Anion Gap 14 (12-20) BUN 10 (9-16) mg/dL Creatinine 0.82 (0.5-1.4) mg/dL Estim Creat Clear Calc 62.8 Estimated GFR > 60 Random Glucose 146 H (60-115) mg/dL Calcium 9.0 (8.4-10.2) mg/dL Magnesium 1.7 (1.6-2.6) mg/dL Troponin I High Sens 14.5 (<3.5-17.0) ng/L Urine Color Urine Appearance Urine pH (5.0-9.0) Ur Specific [place] (1.005-1.025) Urine Protein (Neg-Trace) mg/dL Urine Glucose (UA) (Negative) mg/dL Urine Ketones (Negative) mg/dL Urine Blood (Negative) Urine Nitrite (Negative) Ur Leukocyte Esterase (Negative) Urine RBC (0-2) /HPF Urine WBC (0-5) /HPF Ur Squamous Epith Cells (0-2) /HPF Urine Bacteria (None Seen) Hyaline Casts (0-2) /LPF Urine Yeast 01/29/23 Range/Units 15:41 WBC (4.8-10.8) X10*3/uL RBC (4.20-5.50) X10*6/uL Hgb (12.0-16.0) g/dl Hct (37.0-47.0) % MCV (80.0-98.0) fL MCH (27.0-33.0) pg MCHC (31.0-35.0) g/dl RDW (11.0-16.0) % Plt Count (160-400) X10*3/uL MPV (9.4-12.3) fL Immature Gran % (Auto) (0.0-0.4) % Neut % (Auto) (45-73) % Lymph % (Auto) (20-40) % Humphreys % (Auto) (2-11) % Eos % (Auto) (0-4) % Baso % (Auto) (0-2) % Lymph # (Auto) (1.2-4.9) X10*3/uL [place]ys # (Auto) (0.1-1.2) X10*3/uL Eos # (Auto) (0.0-0.4) X10*3/uL Baso # (Auto) (0.0-0.2) X10*3/uL Abs Immat Gran (auto) (0.00-0.03) X10*3/uL Absolute Neuts (auto) (2.0-8.3) x10*3/uL Absolute Nucleated RBC (0.0-0.012) X10*3/uL Nucleated RBC % (auto) (0.0-0.2) /100WBC Sodium (135-145) mmol/L Potassium (3.3-5.1) mmol/L Chloride (96-108) mmol/L Carbon Dioxide (22-29) mmol/L Anion Gap (12-20) BUN (9-16) mg/dL Creatinine (0.5-1.4) mg/dL Estim Creat Clear Calc Estimated GFR Random Glucose (60-115) mg/dL Calcium (8.4-10.2) mg/dL Magnesium (1.6-2.6) mg/dL Troponin I High Sens (<3.5-17.0) ng/L Urine Color Dark Yellow Urine Appearance Cloudy Urine pH 7.5 (5.0-9.0) Ur Specific [place] 1.010 (1.005-1.025) Urine Protein 30 (1+) H (Neg-Trace) mg/dL Urine Glucose (UA) Negative (Negative) mg/dL Urine Ketones Negative (Negative) mg/dL Urine Blood Small (1+) H (Negative) Urine Nitrite Positive H (Negative) Ur Leukocyte Esterase Moderate (2+) H (Negative) Urine RBC >20 H (0-2) /HPF Urine WBC >50 H (0-5) /HPF Ur Squamous Epith Cells 0-2 (0-2) /HPF Urine Bacteria Trace (None Seen) Hyaline Casts 6-10 (0-2) /LPF Urine Yeast Present Independent Interpretation I performed an independent interpretation of an: EKG Interpretation: My independent interpretation patient's 12 EKG done at 12:36 is as follows: Normal sinus rhythm with a rate of 65, normal DC interval, normal QRS duration, normal QTC interval, no ST segment elevation, no ST segment depression, no T-wave abnormalities, no PACs, no PVCs compared to EKG dated 02/12/2022 there is no significant change. My independent interpretation patient's left hip and pelvic x-ray is as follows: No acute fracture, no dislocation, no pelvic fracture Radiology Impression Discussion of test interpretation with radiology: I have reviewed the radiologist's reading. Radiologist Impression: XR hip LT w PEL1V IMPRESSION: Total left hip arthroplasty with prosthetic components in satisfactory alignment. Dictated By:Cb Mcfadden MD Independent Historian Clinical information obtained from an independent historian. History obtained from or confirmed by: Spouse and Other (PCP) External Record Review External record reviewed: Inpatient record Discharge Plan Discharge Clinical Impression: Acute pain of left hip, Chronic anemia Patient Disposition: Home, Self-Care Additional Instructions: Your blood work did reveal anemia however your anemia is chronic and was not low enough to require transfusion, normally we do not give transfusions unless your hematocrit is below 21 or your actively bleeding. The x-ray of your left hip revealed no fracture or dislocation of the prosthetic hip. Also there was no fracture of the pelvic bones. Your urine culture did reveal candidiasis which was present on your previous urine culture, this is due to colonization and not infection that needs to be treated with antifungal medications Continue taking your pain medications as prescribed by your orthopedic provider. Follow-up with your doctor in 2 days. Please return to the emergency department if your symptoms get worse or if you develop any symptoms that are concerning to you. Prescriptions: No Action (DME) syringe with needle [BD Luer-Humphrey Syringe] 3 mL 22 x 1 1/2 syringe See Rx Instructions .ROUTE .MEDSUPPLY Qty: 20 0RF Rx Instructions: As directed famotidine 40 mg tablet 40 mg PO BEDTIME Qty: 90 1RF atorvastatin 80 mg tablet 80 mg PO QPM Qty: 90 3RF estradiol [Vagifem] 10 mcg tablet 10 mcg vaginal 2XW 90 Days Qty: 26 1RF nitrofurantoin monohyd/m-cryst [Macrobid] 100 mg capsule 100 mg PO BID 10 Days Qty: 20 0RF Rx Instructions: must administer with a meal/food fluconazole 150 mg tablet 150 mg PO Q3D 6 Days Qty: 2 0RF ferrous sulfate [iron] 325 mg (65 mg iron) Tablet 325 mg PO DAILY Qty: 120 9RF sennosides [senna] 8.6 mg tablet 17.2 mg PO BEDTIME PRN (Reason: Constipation) Imbruvica 420 mg Tablet 420 mg PO DAILY methenamine hippurate 1 gram tablet 1 g PO BID pregabalin 150 mg capsule 150 mg PO BID multivitamin Tablet 1 tab PO DAILY tramadol 50 mg tablet 50 mg PO BID PRN (Reason: pain) phenazopyridine [Pyridium] 100 mg Tablet 100 mg PO BID magnesium 250 mg Tablet 250 mg PO BEDTIME coenzyme Q10 [CoQ-10] 100 mg Capsule 100 mg PO BEDTIME enoxaparin 40 mg/0.4 mL Syringe 40 mg subcut Q24H 42 Days Qty: 16.8 0RF celecoxib 200 mg Capsule 200 mg PO BID 30 Days Qty: 60 0RF acetaminophen 325 mg Tablet 650 mg PO Q6H PRN (Reason: Pain, Mild (Pain Scale 1-3)) 30 Days Qty: 240 0RF spironolactone 25 mg tablet 25 mg PO DAILY duloxetine 60 mg capsule,delayed release(DR/EC) 60 mg PO DAILY citalopram 20 mg tablet 20 mg PO DAILY metformin 1,000 mg tablet 1,000 mg PO BID carvedilol 25 mg tablet 25 mg PO BID amlodipine 10 mg tablet 10 mg PO DAILY aspirin [Enteric Coated Aspirin] 81 mg tablet,delayed release (DR/EC) 81 mg PO DAILY Qty: 90 4RF pantoprazole 40 mg tablet,delayed release (DR/EC) 40 mg PO DAILY Qty: 90 4RF (DME) Accu-Chek Guide test strips Strip See Rx Instructions .ROUTE DAILY Qty: 10 Rx Instructions: As directed ascorbic acid (vitamin C) 1,000 mg tablet 1,000 mg PO DAILY 90 Days Qty: 90 1RF oxycodone 5 mg tablet 5 mg PO Q4H PRN (Reason: Pain, Moderate(Pain Scale 4-6)) 7 Days Qty: 42 0RF Rx Instructions: Partial Fill upon patient request.
[2023-01-29] MEDS: oxyCODONE HCl Immed Release 5 MG TABLET PO (14:39)
[2023-01-29 15:35] VITALS: BP 127/47; PULSE 70; RESP 12; TEMP 37.2; O2SAT 92
[2023-01-29 15:47] LABS: Appearance Urine Cloudy; Color Urine Dark Yellow; Glucose Urine UA Negative (Negative); Leukocyte Esterase Urine Moderate (2+) (Negative); Nitrite Urine Positive (Negative); PH 7.5 (5.0-9.0); UMIC TRIGGER UACC YES; Urine Blood Small (1+) (Negative); Urine Ketones Negative (Negative); Urine Protein 30 (1+) mg/dL (Neg-Trace)
[2023-01-29 16:19] LABS: Bacteria Urine Trace (None Seen); RBC Urine >20 /HPF (0-2); Squamous Epithelial Cell Urine 0-2 /HPF (0-2); UACC Culture Trigger YES; WBC Urine >50 /HPF (0-5)
[2023-01-29 16:35] VITALS: BP 116/45; PULSE 69; RESP 12; TEMP 37.1; O2SAT 94
--- NOTE | 2023-01-29 18:10 | PC.NURSE ---
pt given dc paperwork and pt getting dressed with assist from . pt calling this rn into room sitting up on edge of bed. pt sts i live at the top of 13 stairs and im feeling extremely light headed i dont know if i can make it up could i get an ambulance home? . provider made aware of pt situation.
== END 2023-01-29 19:45 | disposition home or self-care (01) ==
PROVIDERS: Emergency Provider Emergency Medicine Emergency Medical Services; PCP Family Medicine
DX: M25.552 Pain in left hip (principal); D64.89 Other specified anemias; R82.998 Other abnormal findings in urine; B37.9 Candidiasis, unspecified; I10 Essential (primary) hypertension; E11.49 Type 2 diabetes mellitus with other diabetic neurological complication; Z85.6 Personal history of leukemia; Z91.81 History of falling
CPT/HCPCS: 36415; 73502; 80048; 81001; 83735; 84484; 85025; 87086; 87088; 87186; 93005; 99284; 99285

== ENCOUNTER 2023-02-11 11:16 | Outpatient (REF) | payer MEDICARE, OTHER, SELFPAY | END 2023-02-11 11:17 | disposition home or self-care (01) | LOC: HO.LNP 11:16 | PROVIDERS: Visit Provider Urology | DX: R68.89 Other general symptoms and signs (principal) | CPT/HCPCS: 87086; 87088; 87186 ==

== ENCOUNTER 2023-02-21 06:15 | Outpatient (REF) | payer MEDICARE, OTHER, SELFPAY ==
--- NOTE | ~2023-02-21 | XR_ITS ---
EXAMINATION: XR HIP, LEFT CLINICAL INFORMATION: Hip pain. COMPARISON: None available. TECHNIQUE: AP and crosstable lateral views of the left hip. XR/XR hip LT w PEL1V FINDINGS/IMPRESSION: There is no acute radiographic finding. The patient is status post left total hip arthroplasty. There is no evidence of hardware fracture or loosening. No bony fracture is seen. There are mild to moderate degenerative changes of the right hip. Vascular calcification is incidentally visualized. The tip of a catheter projects over the mid lower pelvis, possibly a suprapubic tube, incompletely evaluated.
== END 2023-02-21 06:16 | disposition home or self-care (01) ==
LOC: HO.HOSX 06:15
PROVIDERS: Visit Provider Physician Assistant
DX: M25.552 Pain in left hip (principal); R53.83 Other fatigue; Z96.642 Presence of left artificial hip joint
CPT/HCPCS: 73502; 99212

== ENCOUNTER → 2023-03-07 12:56 | Outpatient (BNVA) | payer MEDICARE, OTHER, SELFPAY | PROVIDERS: PCP Family Medicine; Visit Provider Nurse Practitioner Family | DX: K21.9 Gastro-esophageal reflux disease without esophagitis (principal); K58.1 Irritable bowel syndrome with constipation | CPT/HCPCS: 99212 ==

== ENCOUNTER 2023-04-04 12:58 | Outpatient (AMB) | payer MEDICARE, OTHER, SELFPAY ==
--- NOTE | 2023-04-04 13:17 | MHC.OFFVIS ---
Intake Vital Signs 04/04/23 13:18 Height 5 ft 4 in Intake Visit Reasons: Postop-LT ANGELICA 01/08/23 NE Intake Note: Kaitlin is a 77 year old female who presents today for a post operative appointment s/p Left ANGELICA 01/08/23. Patient reports that she is doing well, has no pain and no concerns Allergies amoxicillin [AMOXICILLIN] Allergy (Severe, Verified 03/07/23 13:12) stroke, blood clots ciprofloxacin [From CIPRO] Allergy (Severe, Verified 03/07/23 13:12) ANAPHYLAXIS Iodinated Contrast Media [IV DYE, IODINE CONTAINING CONTRAST ] Allergy (Severe, Verified 03/07/23 13:12) HIVES levofloxacin Allergy (Severe, Verified 03/07/23 13:12) Anaphylaxis liraglutide Allergy (Severe, Verified 03/07/23 13:12) Headache Penicillins Allergy (Severe, Verified 03/07/23 13:12) stroke, blood clots phenazopyridine [Pyridium] Allergy (Severe, Verified 03/07/23 13:12) Anaphylaxis FREYA Inhibitors Allergy (Intermediate, Verified 03/07/23 13:12) Cough ARB-Angiotensin Receptor Antagonist Allergy (Intermediate, Verified 03/07/23 13:12) Cough atorvastatin Allergy (Intermediate, Verified 03/07/23 13:12) Shortness of Breath cefpodoxime Allergy (Intermediate, Verified 03/07/23 13:12) Dizziness, nausea celecoxib [From CELEBREX] Allergy (Intermediate, Verified 03/07/23 13:12) HIVES doxazosin Allergy (Intermediate, Verified 03/07/23 13:12) Shortness of Breath fluticasone [Advair Diskus] Allergy (Intermediate, Verified 03/07/23 13:12) Anxiety gabapentin [From Neurontin] Allergy (Intermediate, Verified 03/07/23 13:12) Headache hydralazine Allergy (Intermediate, Verified 03/07/23 13:12) Shortness of Breath latex Allergy (Intermediate, Verified 03/07/23 13:12) Hives linezolid Allergy (Intermediate, Verified 03/07/23 13:12) Nausea and Vomiting meloxicam Allergy (Intermediate, Verified 03/07/23 13:12) Unknown salmeterol [Advair Diskus] Allergy (Intermediate, Verified 03/07/23 13:12) Anxiety Tetanus Vaccines and Toxoid Allergy (Intermediate, Verified 03/07/23 13:12) Swelling torsemide Allergy (Intermediate, Verified 03/07/23 13:12) Shortness of Breath cephalexin [Keflex] Allergy (Mild, Verified 03/07/23 13:12) Nausea HPI Postop-LT ANGELICA 01/08/23 NE HPI Details Kaitlin is a 77 year old woman presenting ~3 months S/P left ANGLEICA. She says she is doing well without any complaints. [facility] Medical History Allergy to multiple antibiotics Anemia Arthritis Arthritis of left hip CLL (chronic lymphocytic leukemia) CLL (chronic lymphocytic leukemia) Depression Diabetes mellitus Diabetes with neurologic complications Fibromyalgia History of bilateral breast cancer History of blood transfusion History of CVA (cerebrovascular accident) History of numbness Hypercholesterolemia Hypertension Morbid obesity Neurogenic urinary bladder disorder Osteoarthritis PONV (postoperative nausea and vomiting) Seasonal allergies Self-catheterizes urinary bladder Sleep apnea Type 2 diabetes mellitus with unspecified complications Urinary retention with incomplete bladder emptying Wears dentures Surgical History History of back surgery History of biopsy of bladder History of bladder repair surgery History of esophagogastroduodenoscopy (EGD) History of suprapubic catheter History of total hysterectomy Hx of colonoscopy S/P Botox injection S/P breast biopsy, right S/P left breast biopsy Family History Mother Breast cancer Father Heart disease Father Lung cancer Mother Colon cancer Brother Pancreatic cancer Social History Household Members: Spouse Housing: House Are you a primary acute care assistant to a significant other at home: No Do you presently have visiting nurse or other home services: Yes Alcohol intake: never Patient Tobacco Use Status: Never used Tobacco Advance Directives Date on File: 04/11/22 service: No Current occupational status: retired Female Reproductive History Menstrual Age of Menarche: 15 Review of Systems Const All systems reviewed & are unremarkable except as noted in HPI and below Physical Exam Const General: no acute distress and alert Orientation/consciousness: patient oriented x3 Neuro General: patient oriented x3 Extrem Other: Left hip: Well-healed incision No groin pain with hip ROM Psych Appearance: grossly normal Affect: normal affect Attitude: cooperative Results Reviewed Results Reviewed: I personally reviewed relevant radiographs. Left total hip arthroplasty in expected post operative position with no hardware complications or evidence of loosening Assessment & Plan Assessment & Plan (1) Status post total hip replacement, left: Code(s): Z96.642 - Presence of left artificial hip joint Plan: This is a 77 year old woman S/P left ANGELICA, DOS: 01/08/23. She is doing well today, improved from prior, and denies any pain. I recommend she remain active and daily ambulation, and she should use an assistive cane prn. She can follow up prn. Discussed dental prophylaxis and posterior hip precautions. Plan Scribed for Julián Rueda MD by Reji Motta, medical assistant dermatology, on 04/04/23 at 1:40 PM, EST. Coding Level of Care Code Global (30118) Diagnoses Status post total hip replacement, left Z96.642
== END 2023-04-04 13:42 | disposition home or self-care (01) ==
PROVIDERS: PCP Family Medicine; Visit Provider Orthopaedic Surgery
DX: Z96.642 Presence of left artificial hip joint (principal)
CPT/HCPCS: 99024

== ENCOUNTER → 2023-04-04 12:58 | Outpatient (BNVA) | payer MEDICARE, OTHER, SELFPAY | PROVIDERS: PCP Family Medicine; Visit Provider Orthopaedic Surgery ==

== ENCOUNTER 2023-04-13 09:57 | Outpatient (REF) | payer MEDICARE, OTHER, SELFPAY ==
[2023-04-13 10:13] LABS: MANUAL DIFF FLAG NO
[2023-04-13 10:52] LABS: Basophils Percent Auto 0.3 % (0-2); Eosinophils Absolute Auto 0.2 X10*3/uL (0.0-0.4); Eosinophils Percent Auto 1.8 % (0-4); Hematocrit 32.2 % (37.0-47.0); Hemoglobin 9.7 g/dl (12.0-16.0); Imm Gran Abs Auto 0.26 X10*3/uL (0.00-0.03); Lymphocytes Absolute Auto 1.8 X10*3/uL (1.2-4.9); Mean Corpuscular HGB Conc 30.1 g/dl (31.0-35.0); Mean Corpuscular Hemoglobin 27.5 pg (27.0-33.0); Mean Corpuscular Volume 91.2 fL (80.0-98.0); Mean Platelet Volume 11.6 fL (9.4-12.3); Monocytes Absolute Auto 0.7 X10*3/uL (0.1-1.2); Monocytes Percent Auto 7.6 % (2-11); Neutrophils Absolute Auto 5.8 x10*3/uL (2.0-8.3); Neutrophils Percent Auto 66.3 % (45-73); Platelet Count 143 X10*3/uL (160-400); Red Blood Count 3.53 X10*6/uL (4.20-5.50); Red Cell Distribution Width 17.2 % (11.0-16.0); White Blood Count 8.7 X10*3/uL (4.8-10.8)
[2023-04-13 11:37] LABS: Estimated Average Glucose 105 mg/dL; Hemoglobin A1c % 5.3 %
[2023-04-13 11:47] LABS: Anion Gap 16 (12-20); Blood Urea Nitrogen 20 mg/dL (9-16); Carbon Dioxide 22 mmol/L (22-29); Chloride 105 mmol/L (96-108); Estimated Glomerular Filt Rate 49; Iron 43 mcg/dL (30-160); Percent Iron Saturation 19 % (15-50); Potassium 4.7 mmol/L (3.3-5.1); Sodium 138 mmol/L (135-145); Total Iron Binding Capacity 227 mcg/dL (228-428); Unsaturated Iron Binding 184 ug/dL
[2023-04-15 09:50] LABS: Glucose Fasting 111 mg/dL (60-99)
== END 2023-04-13 09:58 | disposition home or self-care (01) ==
LOC: HO.LAB 09:57
PROVIDERS: PCP Family Medicine; Visit Provider Family Medicine
DX: D64.9 Anemia, unspecified (principal); E11.9 Type 2 diabetes mellitus without complications; I10 Essential (primary) hypertension
CPT/HCPCS: 36415; 80051; 82565; 82947; 83036; 83540; 84520; 85025

== ENCOUNTER 2023-05-08 14:18 | Outpatient (AMB) | payer MEDICARE, OTHER, SELFPAY ==
--- NOTE | 2023-05-08 14:21 | MHC.OFFVIS ---
Intake Vital Signs 05/08/23 14:22 Height 5 ft 4 in Weight 197 lb 1.492 oz BMI 33.8 BP 146/62 H Blood Pressure Location Lt brachial Position Sitting Pulse 67 Intake Visit Reasons: 6 mth f/up Intake Note: 6 month follow up Cloth Bale Header Required: No Accompanied by: Spouse Allergies amoxicillin [AMOXICILLIN] Allergy (Severe, Verified 05/08/23 14:22) stroke, blood clots ciprofloxacin [From CIPRO] Allergy (Severe, Verified 05/08/23 14:22) ANAPHYLAXIS Iodinated Contrast Media [IV DYE, IODINE CONTAINING CONTRAST ] Allergy (Severe, Verified 05/08/23 14:22) HIVES levofloxacin Allergy (Severe, Verified 05/08/23 14:22) Anaphylaxis liraglutide Allergy (Severe, Verified 05/08/23 14:22) Headache Penicillins Allergy (Severe, Verified 05/08/23 14:22) stroke, blood clots phenazopyridine [Pyridium] Allergy (Severe, Verified 05/08/23 14:22) Anaphylaxis FREYA Inhibitors Allergy (Intermediate, Verified 05/08/23 14:22) Cough ARB-Angiotensin Receptor Antagonist Allergy (Intermediate, Verified 05/08/23 14:22) Cough atorvastatin Allergy (Intermediate, Verified 05/08/23 14:22) Shortness of Breath cefpodoxime Allergy (Intermediate, Verified 05/08/23 14:22) Dizziness, nausea celecoxib [From CELEBREX] Allergy (Intermediate, Verified 05/08/23 14:22) HIVES doxazosin Allergy (Intermediate, Verified 05/08/23 14:22) Shortness of Breath fluticasone [Advair Diskus] Allergy (Intermediate, Verified 05/08/23 14:22) Anxiety gabapentin [From Neurontin] Allergy (Intermediate, Verified 05/08/23 14:22) Headache hydralazine Allergy (Intermediate, Verified 05/08/23 14:22) Shortness of Breath latex Allergy (Intermediate, Verified 05/08/23 14:22) Hives linezolid Allergy (Intermediate, Verified 05/08/23 14:22) Nausea and Vomiting meloxicam Allergy (Intermediate, Verified 05/08/23 14:22) Unknown salmeterol [Advair Diskus] Allergy (Intermediate, Verified 05/08/23 14:22) Anxiety Tetanus Vaccines and Toxoid Allergy (Intermediate, Verified 05/08/23 14:22) Swelling torsemide Allergy (Intermediate, Verified 05/08/23 14:22) Shortness of Breath cephalexin [Keflex] Allergy (Mild, Verified 05/08/23 14:22) Nausea Medication List - Last Reconciled 05/08/23 by Gerardo Agustin MD acetaminophen 650 mg (2 x 325 mg) PO Q6H PRN 30 days amlodipine 10 mg PO DAILY ascorbic acid (vitamin C) 1,000 mg PO DAILY 90 days aspirin (Enteric Coated Aspirin) 81 mg PO DAILY atorvastatin 80 mg PO QPM blood sugar diagnostic (Accu-Chek Guide test strips) As directed carvedilol 25 mg PO BID celecoxib 200 mg PO BID 30 days citalopram 20 mg PO DAILY coenzyme Q10 (CoQ-10) 100 mg PO BEDTIME duloxetine 60 mg PO DAILY famotidine 40 mg PO BEDTIME ferrous sulfate (iron) 325 mg PO DAILY ibrutinib (Imbruvica) 420 mg PO DAILY magnesium 250 mg PO BEDTIME metformin 1,000 mg PO BID methenamine hippurate 1 g PO BID multivitamin 1 tab PO DAILY ondansetron 4 mg PO Q6H PRN pantoprazole 40 mg PO BID phenazopyridine (Pyridium) 100 mg PO BID pregabalin 150 mg PO BID sennosides (senna) 17.2 mg PO BEDTIME PRN spironolactone 25 mg PO DAILY syringe with needle (BD Luer-Humphrey Syringe) As directed HPI HPI Comments History of Present Illness Details Kaitlin returns for follow-up regarding coronary disease. No interventions and medically treated. She does have multiple cardiovascular risk factors including obesity, diabetes, hypertension, dyslipidemia. She has chronic lymphocytic leukemia on ibrutinib. Overall, she feels fine. No angina or in fact any cardiac symptoms at all. [facility] Medical History Allergy to multiple antibiotics Anemia Arthritis Arthritis of left hip CLL (chronic lymphocytic leukemia) CLL (chronic lymphocytic leukemia) Depression Diabetes mellitus Diabetes with neurologic complications Fibromyalgia History of bilateral breast cancer History of blood transfusion History of CVA (cerebrovascular accident) History of numbness Hypercholesterolemia Hypertension Morbid obesity Neurogenic urinary bladder disorder Osteoarthritis PONV (postoperative nausea and vomiting) Seasonal allergies Self-catheterizes urinary bladder Sleep apnea Type 2 diabetes mellitus with unspecified complications Urinary retention with incomplete bladder emptying Wears dentures Surgical History (Updated 05/08/23 @ 14:27 by Alise Weaver) History of back surgery History of biopsy of bladder History of bladder repair surgery History of esophagogastroduodenoscopy (EGD) History of suprapubic catheter History of total hysterectomy History of total left hip replacement Hx of colonoscopy S/P Botox injection S/P breast biopsy, right S/P left breast biopsy Family History Mother Breast cancer Father Heart disease Father Lung cancer Mother Colon cancer Brother Pancreatic cancer Social History Household Members: Spouse Housing: House Are you a primary assurance services manager health care to a significant other at home: No Do you presently have visiting nurse or other home services: Yes Alcohol intake: never Patient Tobacco Use Status: Never used Tobacco Advance Directives Date on File: 04/11/22 service: No Current occupational status: retired Female Reproductive History Menstrual Age of Menarche: 15 Review of Systems Const Denies weakness ENT Denies dizziness Card Denies chest pain, Denies chest pain with activity, Denies syncope, Denies rapid heart rate, Denies pedal edema, Denies edema, Denies leg edema, Denies lightheadedness, Denies palpitations, Denies dyspnea, Denies dyspnea on exertion and Denies orthopnea Resp Denies cough, Denies dyspnea and Denies dyspnea on exertion GI Denies hematochezia and Denies change in stool character Musc Denies abnormal gait, Denies muscle cramps, Denies muscle weakness, Denies numbness, Denies radiating pain into limb and Denies tingling Neuro Denies abnormal gait, Denies dizziness, Denies syncope, Denies numbness, Denies tingling and Denies weakness Endo Denies palpitations Physical Exam Vital Signs: Last Vital Signs Pulse 67 05/08/23 14:22 BP 146/62 H 05/08/23 14:22 BMI result Body Mass Index 33.8 Const General: comfortable and no acute distress Orientation/consciousness: patient oriented x3 HEENT Other: Unremarkable Head: Yes normal to inspection Neck Neck: Yes normal visual inspection Chest Chest palpation & inspection: normal inspection of the chest Resp Auscultation: clear to auscultation bilaterally Cardio Palpation: normal PMI Heart sounds: S1 normal heart sound present, S2 normal heart sound present, no gallops, no murmurs and no rubs GI Palpation (GI): Soft to palpation Back/Spine/Pelvis Other: unremarkable Skin General skin exam: no rashes or lesions noted Neuro General: patient oriented x3 Extrem General: Yes normal to inspection Psych Mental Status: mental status grossly normal Assessment & Plan Assessment & Plan (1) Atherosclerotic cardiovascular disease: Code(s): I25.10 - Atherosclerotic heart disease of [place] coronary artery without angina pectoris Plan: Cardiac catheterization data- 70% mid-LAD stenosis; 70% OM 1 and 60% proximal RCA stenosis. In the perfusion imaging, findings of equivocal apical ischemia. Clinically she has got absolutely no symptoms. Continue aspirin. Continue statins. Lipids are controlled. Last LDL is 66 mg/dL. (2) Type 2 diabetes mellitus with unspecified complications: Code(s): E11.8 - Type 2 diabetes mellitus with unspecified complications Plan: On metformin. Last hemoglobin A1c 5.3%. (3) Essential hypertension: Code(s): I10 - Essential (primary) hypertension Plan: May continue current regimen including carvedilol, amlodipine, spironolactone. Borderline high blood pressure today. Previous blood pressures have been okay. Of note, she also has numerous medication allergies including FREYA inhibitors, ARB, doxazosin, hydralazine. Her potassium also runs high. Overall, not too much of options. (4) Hyperlipidemia, unspecified: Code(s): E78.5 - Hyperlipidemia, unspecified Plan: Stable. No changes. (5) Asymmetric septal hypertrophy: Code(s): I42.2 - Other hypertrophic cardiomyopathy Plan: No specific management. In the most recent echocardiogram, reported to be rather concentric. Could be hypertension related. Coding Level of Care Code Est Pt Level 4 (72967) Diagnoses Atherosclerotic cardiovascular disease I25.10 Type 2 diabetes mellitus with unspecified complications E11.8 Essential hypertension I10 Hyperlipidemia, unspecified E78.5 Asymmetric septal hypertrophy I42.2
[2023-05-08 14:22] VITALS: BP 146/62; PULSE 67; BMI 33.8
== END 2023-05-08 14:40 | disposition home or self-care (01) ==
PROVIDERS: PCP Family Medicine; Referring Provider Family Medicine; Visit Provider Internal Medicine
DX: I25.10 Atherosclerotic heart disease of native coronary artery without angina pectoris (principal); E11.8 Type 2 diabetes mellitus with unspecified complications; I10 Essential (primary) hypertension; E78.5 Hyperlipidemia, unspecified; I42.2 Other hypertrophic cardiomyopathy
CPT/HCPCS: 99214

== ENCOUNTER → 2023-05-08 14:18 | Outpatient (BNVA) | payer MEDICARE, OTHER, SELFPAY | PROVIDERS: PCP Family Medicine; Referring Provider Family Medicine; Visit Provider Internal Medicine | DX: I25.10 Atherosclerotic heart disease of native coronary artery without angina pectoris (principal); I10 Essential (primary) hypertension; I42.2 Other hypertrophic cardiomyopathy; E11.9 Type 2 diabetes mellitus without complications; E78.5 Hyperlipidemia, unspecified; Z85.6 Personal history of leukemia | CPT/HCPCS: 99212 ==

== ENCOUNTER 2023-05-18 12:51 | Outpatient (REF) | payer MEDICARE, OTHER, SELFPAY | END 2023-05-18 12:52 | disposition home or self-care (01) | LOC: HO.LNP 12:51 | PROVIDERS: Visit Provider Urology | DX: R68.89 Other general symptoms and signs (principal) | CPT/HCPCS: 87086 ==

== ENCOUNTER 2023-06-03 13:47 | Outpatient (REF) | payer MEDICARE, OTHER, SELFPAY | END 2023-06-03 13:48 | disposition home or self-care (01) | LOC: HO.LNP 13:47 | PROVIDERS: Visit Provider Urology | DX: R39.9 Unspecified symptoms and signs involving the genitourinary system (principal) | CPT/HCPCS: 87086; 87088; 87186 ==

== ENCOUNTER 2023-06-05 14:55 | Outpatient (AMB) | payer MEDICARE, OTHER, SELFPAY ==
--- NOTE | 2023-06-05 15:00 | A.OFFVIS_ITS ---
Intake Intake Visit Reasons: 6m/SPT change Intake Note: Patient is Present for Follow Up SPT Change/Follow up Urology Medication: Methenamine, Oxybutynin, Antibiotic Allergies: Amoxicillin, Cipro, Levofloxacin,Penicillins, Keflex Blood Thinners:Aspirin Pharmacy: [facility] Patient states her last Change was in April by [facility]. Since then she has stopped care with [facility]. Allergies amoxicillin [AMOXICILLIN] Allergy (Severe, Verified 06/06/23 13:45) stroke, blood clots ciprofloxacin [From CIPRO] Allergy (Severe, Verified 06/06/23 13:45) ANAPHYLAXIS Iodinated Contrast Media [IV DYE, IODINE CONTAINING CONTRAST ] Allergy (Severe, Verified 06/06/23 13:45) HIVES levofloxacin Allergy (Severe, Verified 06/06/23 13:45) Anaphylaxis liraglutide Allergy (Severe, Verified 06/06/23 13:45) Headache Penicillins Allergy (Severe, Verified 06/06/23 13:45) stroke, blood clots phenazopyridine [Pyridium] Allergy (Severe, Verified 06/06/23 13:45) Anaphylaxis FREYA Inhibitors Allergy (Intermediate, Verified 06/06/23 13:45) Cough ARB-Angiotensin Receptor Antagonist Allergy (Intermediate, Verified 06/06/23 13:45) Cough atorvastatin Allergy (Intermediate, Verified 06/06/23 13:45) Shortness of Breath cefpodoxime Allergy (Intermediate, Verified 06/06/23 13:45) Dizziness, nausea celecoxib [From CELEBREX] Allergy (Intermediate, Verified 06/06/23 13:45) HIVES doxazosin Allergy (Intermediate, Verified 06/06/23 13:45) Shortness of Breath fluticasone [Advair Diskus] Allergy (Intermediate, Verified 06/06/23 13:45) Anxiety gabapentin [From Neurontin] Allergy (Intermediate, Verified 06/06/23 13:45) Headache hydralazine Allergy (Intermediate, Verified 06/06/23 13:45) Shortness of Breath latex Allergy (Intermediate, Verified 06/06/23 13:45) Hives linezolid Allergy (Intermediate, Verified 06/06/23 13:45) Nausea and Vomiting meloxicam Allergy (Intermediate, Verified 06/06/23 13:45) Unknown salmeterol [Advair Diskus] Allergy (Intermediate, Verified 06/06/23 13:45) Anxiety Tetanus Vaccines and Toxoid Allergy (Intermediate, Verified 06/06/23 13:45) Swelling torsemide Allergy (Intermediate, Verified 06/06/23 13:45) Shortness of Breath cephalexin [Keflex] Allergy (Mild, Verified 06/06/23 13:45) Nausea HPI HPI Comments History of Present Illness Details Kiatlin is a very pleasant female. She is a patient of Dr. Tijerina. She is here for the following urologic conditions - neurogenic bladder - recurrent UTI - nephrolithiasis - stress incontinence Recovering from orthopedic surgery Doing surprisingly well Does better when bladder to continuous drainage Suprapubic tube change today Looks infected so will be started on 14 days of Macrobid Urinary retention with incomplete bladder emptying Incomplete emptying Suprapubic tube placed October 2021 Background of diabetes Has CLL and is on chronic immunosuppression which increases risk of infection substantially Nephrolithiasis 11/28 - ultrasound bilateral stones 8 mm left, 5 mm right Urinary Tract Infection: Last UTI - ceftriaxone 1gm daily 5 days They present for recurrent UTI's. Associated constipation - allergies to cipro - did have penicillin desensitization. The frequency of recurrences has been persistent recurrence. Therapy has included - Gentamicin instillation - macrobid - not well tolerated 06/27 Augmentin and 3rd generation all capsules poor in 07/28 Macrobid and 3rd generation careful support. Prior cultures have shown 05/25 - klebsiella sp.- Gentamicin resistant 06/25 - MicroDNA - enteroccus/E.coli 10^4 Bactrim/macrobid/levaquin 12/25 Microgen - 3 species - levaquin/ cefpodoxime 12/26 E.Coli levaquin/macrobid 05/28 E.Coli levaquin/gentamycin 06/27 E.Coli and Enterococcus 09/28 Strep Agalact - tx with 5 days kelfex. Recent testing included 09/28 Bladder biopsy with chronic inflammation - rectocele with incomplete emptying. Relevant medical history diabetes Yes constipation Yes incomplete bladder emptying Yes renal stones No genitourinary surgery Yes association of infections with intercourse No history of vesicoureteral reflux No Therapeutic plan will include suprapubic tube placement PENDING SALE TO [facility] Medical History Osteoarthritis Morbid obesity Allergy to multiple antibiotics Depression Arthritis of left hip Wears dentures Neurogenic urinary bladder disorder History of blood transfusion History of CVA (cerebrovascular accident) Seasonal allergies History of numbness PONV (postoperative nausea and vomiting) Self-catheterizes urinary bladder Diabetes with neurologic complications Type 2 diabetes mellitus with unspecified complications Anemia CLL (chronic lymphocytic leukemia) Sleep apnea Diabetes mellitus CLL (chronic lymphocytic leukemia) Arthritis Fibromyalgia Hypercholesterolemia Hypertension History of bilateral breast cancer Urinary retention with incomplete bladder emptying Surgical History (Updated 06/06/23 @ 14:02 by Armen Worthy MD) History of total left hip replacement S/P Botox injection History of suprapubic catheter S/P left breast biopsy History of esophagogastroduodenoscopy (EGD) Hx of colonoscopy History of bladder repair surgery History of total hysterectomy S/P breast biopsy, right History of back surgery History of biopsy of bladder Family History Mother Breast cancer Father Heart disease Father Lung cancer Mother Colon cancer Brother Pancreatic cancer Social History Household Members: Spouse Housing: House Are you a primary laboratory animal caretaker to a significant other at home: No Do you presently have visiting nurse or other home services: Yes Alcohol intake: never Patient Tobacco Use Status: Never used Tobacco Use of substances other than those prescribed or required for medical reasons: No Have you been hit, kicked, punched, or otherwise hurt by someone within the past year? If so, by whom?: No Do you feel safe in your current relationship?: Yes Advance Directives Date on File: 04/11/22 Do you have thoughts of harming others: None Do you have a plan to hurt others: No Plan Do you have the means to hurt others: No Recently lost weight without trying: No Eating poorly because of decreased appetite: No Patient : No service: No Current occupational status: retired Female Reproductive History Menstrual Age of Menarche: 15 Review of Systems Const Denies chills and Denies fever(s) Card Reports no additional complaints and Denies syncope Resp Denies cough GI Denies abdominal pain and Denies heartburn Reports as per HPI and Denies change in libido Neuro Denies syncope Psych Denies change in libido Endo Denies change in libido Physical Exam Const General: cooperative, healthy appearing, comfortable and no acute distress Orientation/consciousness: patient oriented x3 HEENT Face and sinus: Yes normal facial exam Mouth: moist mucous membranes Neck Neck: Yes normal visual inspection, Yes full ROM and Yes trachea midline Chest Chest palpation & inspection: normal inspection of the chest Resp Effort & Inspection: normal respiratory effort, able to speak in complete sentences and no respiratory distress GI Inspection: Yes normal to inspection Back/Spine/Pelvis Cervical Spine: normal cervical lordosis Thoracic/Lumbar Spine: thoracic and lumbar spine normal to inspection Skin General skin exam: no rashes or lesions noted Neuro General: patient oriented x3, gait normal, tone normal and moves all extremities Extrem General: Yes normal to inspection and Yes capillary refill normal Office Procedures Bladder/Catheter Procedure Details: 18 fr brina sp tube 7.5 ml balloon placed, pt tolerated exchange well. 4 weeks for next change, pt mentions has culture pending- reviewed with DR Woo, gram negative prelim, script for macrobid 100 mg BID x 14 days sent. [id number] of bladder tube Procedure code (CPT) selection complete Assessment & Plan Assessment & Plan (1) Neurogenic urinary bladder disorder: Code(s): N31.9 - Neuromuscular dysfunction of bladder, unspecified (2) Complicated urinary tract infection: Code(s): N39.0 - Urinary tract infection, site not specified Plan Six month follow-up Orders: Orders AMB Bladder/Catheter Procedure 06/05/23 N31.9 - Neuromuscular dysfunction of bladder, unspecified Medications: New nitrofurantoin monohyd/m-cryst 100 mg (Macrobid) must administer with a meal/food 100 mg PO BID 14 days 28 caps 0RF N31.9 - Neuromuscular dysfunction of bladder, unspecified Patient Instructions: Imaging studies, laboratory and physical exam results were discussed and reviewed in detail. No major barriers to patient understanding were identified. An opportunity to ask questions regarding the treatment plan was provided. All questions were answered. The patient expressed understanding and agreement with the above treatment plan. The patient is aware they should contact our office by phone for worsening of their current condition or the appearance of new urologic symptoms. Compliance is encouraged with any medications and followup testing that is ordered. It is a privilege to participate in the urologic care of your patient. If you have any questions or concerns regarding treatment for the above conditions, or other urologic issues, please do not hesitate to contact me. The office telephone contact is [phone]. This note is constructed using voice recognition software. While every effort has been made to ensure accuracy manager research and development errors may have been included. Yours sincerely, Dr Ceferino Hayes MD, [facility] - Urology Providers of Expert, Compassionate Care for the Genitourinary System Coding Level of Care Code Est Pt Level 4 (60258) Diagnoses Neurogenic urinary bladder disorder N31.9 Complicated urinary tract infection N39.0 CPT Codes Bladder/Catheter Procedure - CPT: [id number] of bladder tube ([id number])
== END 2023-06-05 15:28 | disposition home or self-care (01) ==
PROVIDERS: PCP Family Medicine; Visit Provider Urology
DX: N31.9 Neuromuscular dysfunction of bladder, unspecified (principal); N39.0 Urinary tract infection, site not specified
CPT/HCPCS: 51705; 99214

== ENCOUNTER → 2023-06-05 14:55 | Outpatient (BNVA) | payer MEDICARE, OTHER, SELFPAY | PROVIDERS: Visit Provider Urology | DX: N31.9 Neuromuscular dysfunction of bladder, unspecified (principal); N39.0 Urinary tract infection, site not specified | CPT/HCPCS: 51705; 99212 ==

== ENCOUNTER 2023-06-20 11:00 | Outpatient (RCR) | payer MEDICARE, OTHER, SELFPAY | END 2023-07-30 13:51 | disposition home or self-care (01) | LOC: HO.PT 11:00 | PROVIDERS: PCP Family Medicine; Visit Provider Physician Assistant | DX: Z96.642 Presence of left artificial hip joint (principal) | CPT/HCPCS: 97110; 97112; 97116; 97161; 97530 ==

== ENCOUNTER 2023-07-01 12:11 | Outpatient (REF) | payer MEDICARE, OTHER, SELFPAY | END 2023-07-01 12:12 | disposition home or self-care (01) | LOC: HO.LNP 12:11 | PROVIDERS: Visit Provider Urology | DX: R68.89 Other general symptoms and signs (principal) | CPT/HCPCS: 87086 ==

== ENCOUNTER 2023-07-09 13:28 | Outpatient (REF) | payer MEDICARE, OTHER, SELFPAY ==
--- NOTE | ~2023-07-09 | MM_ITS ---
EXAMINATION: MM SCREENING DIGITAL BREAST TOMOSYNTHESIS, BILATERAL CLINICAL INFORMATION: Screening. Asymptomatic. The patient is status post breast conservation for history of bilateral breast cancer. COMPARISON: Mammography: This study is compared with prior exams dating back to 2018. TECHNIQUE: Digital breast tomosynthesis is performed in both the craniocaudal and mediolateral oblique views along with computer-aided detection (CAD). Synthesized 2D images are generated from the tomosynthesis. FINDINGS: There are scattered areas of fibroglandular density (ACR BI-RADS breast composition Category b). There are no significant masses, abnormal calcifications, or other abnormalities. There are postsurgical changes in the superior aspects of each breast from prior surgery for cancer. There are bilateral, benign calcifications. MM/MM tomosynthesis screening BI IMPRESSION: No mammographic evidence of malignancy. ASSESSMENT: BI-RADS BI-RADS 2 - Benign Findings RECOMMENDATION: Routine annual mammography screening. 1 year F/U This examination should not preclude the clinical evaluation of a suspicious palpable abnormality. This patient's information was entered into a reminder system with a target due date for their next mammogram.
== END 2023-07-09 13:29 | disposition home or self-care (01) ==
LOC: HO.MAMMO 13:28
PROVIDERS: PCP Family Medicine; Visit Provider Internal Medicine Medical Oncology
DX: Z12.31 Encounter for screening mammogram for malignant neoplasm of breast (principal)
CPT/HCPCS: 77063; 77067

== ENCOUNTER → 2023-07-09 13:45 | Outpatient (BNV) | payer MEDICARE, OTHER, SELFPAY | PROVIDERS: PCP Family Medicine; Visit Provider Radiology Diagnostic Radiology | DX: Z12.31 Encounter for screening mammogram for malignant neoplasm of breast (principal) | CPT/HCPCS: 77063; 77067 ==

== ENCOUNTER → 2023-07-10 13:21 | Outpatient (BNVA) | payer MEDICARE, OTHER, SELFPAY | PROVIDERS: PCP Family Medicine; Visit Provider Urology | DX: Z43.5 Encounter for attention to cystostomy (principal); N31.9 Neuromuscular dysfunction of bladder, unspecified | CPT/HCPCS: 51705 ==

== ENCOUNTER 2023-07-20 14:51 | Outpatient (REF) | payer MEDICARE, OTHER, SELFPAY | END 2023-07-20 14:52 | disposition home or self-care (01) | LOC: HO.LNP 14:51 | PROVIDERS: Visit Provider Urology | DX: R68.89 Other general symptoms and signs (principal) | CPT/HCPCS: 87086 ==

== ENCOUNTER → 2023-07-30 10:23 | Day surgery (SDC) | payer MEDICARE, OTHER, SELFPAY ==
--- NOTE | 2023-07-30 12:01 | HO.MIDLINE ---
Midline Insertion MIDLINE INSERTION Diagnosis: UTI Indication: Outpatient Midline Pertinent Labs: Reviewed Technique: Using sterile technique including cap and mask, glove and drape, the right arm was prepped and draped in the usual sterile fashion of full barrier technique with CHG. Using ultrasound guidance, the right basilic vein access was obtained in a single attempt by this RN. A 20 guage 8 cm Midline was positioned. The procedure was performed in S272. Ultrasound was used to document vein patency and for needle entry. A formal ultrasound picture was recorded. Vascular An/Syq 13 Nav/C2 Operator has released the line for use and it is currently dressed with a StatLock, Tegaderm, and CHG disc. Verification has been performed for blood return and line patency. Arm Circumference: 29 cm Equipment: Bard PowerGlide ST Midline Catheter Catheter Type: 20 guage 8cm NON-PASV midline Lot #: [id number]
== END ==
PROVIDERS: PCP Family Medicine
DX: N39.0 Urinary tract infection, site not specified (principal)
CPT/HCPCS: 36410; 96365; C1751; J1335

== ENCOUNTER 2023-07-30 11:45 | Outpatient (REF) | payer MEDICARE, OTHER, SELFPAY | END 2023-07-30 11:46 | disposition home or self-care (01) | LOC: HO.MDS 11:45 | PROVIDERS: PCP Family Medicine; Visit Provider Nurse Practitioner Family | DX: N39.0 Urinary tract infection, site not specified (principal) | CPT/HCPCS: 36410; 96365; C1751; J1335 ==

== ENCOUNTER 2023-07-31 11:34 | Outpatient (REF) | payer MEDICARE, OTHER, SELFPAY | END 2023-07-31 11:35 | disposition home or self-care (01) | LOC: HO.MDS 11:34 | PROVIDERS: Visit Provider Nurse Practitioner Family | DX: N39.0 Urinary tract infection, site not specified (principal) | CPT/HCPCS: 96365; J1335 ==

== ENCOUNTER 2023-08-02 10:39 | Outpatient (REF) | payer MEDICARE, OTHER, SELFPAY | END 2023-08-02 10:40 | disposition home or self-care (01) | LOC: HO.MDS 10:39 | PROVIDERS: PCP Family Medicine; Visit Provider Nurse Practitioner Family | DX: N39.0 Urinary tract infection, site not specified (principal) | CPT/HCPCS: 96365; J1335 ==

== ENCOUNTER 2023-08-03 09:53 | Outpatient (REF) | payer MEDICARE, OTHER, SELFPAY | END 2023-08-03 09:54 | disposition home or self-care (01) | LOC: HO.MDS 09:53 | PROVIDERS: PCP Family Medicine; Visit Provider Nurse Practitioner Family | DX: N39.0 Urinary tract infection, site not specified (principal) | CPT/HCPCS: 96365; J1335 ==

== ENCOUNTER 2023-08-04 09:37 | Outpatient (REF) | payer MEDICARE, OTHER, SELFPAY | END 2023-08-04 09:38 | disposition home or self-care (01) | LOC: HO.MDS 09:37 | PROVIDERS: PCP Family Medicine; Visit Provider Nurse Practitioner Family | DX: N39.0 Urinary tract infection, site not specified (principal) | CPT/HCPCS: 96365; J1335 ==

== ENCOUNTER 2023-08-05 12:08 | Outpatient (REF) | payer MEDICARE, OTHER, SELFPAY | END 2023-08-05 12:09 | disposition home or self-care (01) | LOC: HO.MDS 12:08 | PROVIDERS: Visit Provider Nurse Practitioner Family | DX: N39.0 Urinary tract infection, site not specified (principal) | CPT/HCPCS: 96365; J1335 ==

== ENCOUNTER 2023-08-06 10:35 | Outpatient (REF) | payer MEDICARE, OTHER, SELFPAY | END 2023-08-06 10:36 | disposition home or self-care (01) | LOC: HO.MDS 10:35 | PROVIDERS: Visit Provider Nurse Practitioner Family | DX: N39.0 Urinary tract infection, site not specified (principal) | CPT/HCPCS: 96365; J1335 ==

== ENCOUNTER 2023-08-07 10:15 | Outpatient (REF) | payer MEDICARE, OTHER, SELFPAY | END 2023-08-07 10:16 | disposition home or self-care (01) | LOC: HO.MDS 10:15 | PROVIDERS: PCP Family Medicine; Visit Provider Nurse Practitioner Family | DX: N39.0 Urinary tract infection, site not specified (principal) | CPT/HCPCS: 96365; J1335 ==

== ENCOUNTER 2023-08-08 13:13 | Outpatient (REF) | payer MEDICARE, OTHER, SELFPAY | END 2023-08-08 13:14 | disposition home or self-care (01) | LOC: HO.MDS 13:13 | PROVIDERS: Visit Provider Nurse Practitioner Family | DX: N39.0 Urinary tract infection, site not specified (principal) | CPT/HCPCS: 96365; J1335 ==

== ENCOUNTER 2023-08-09 12:55 | Outpatient (REF) | payer MEDICARE, OTHER, SELFPAY | END 2023-08-09 12:56 | disposition home or self-care (01) | LOC: HO.MDS 12:55 | PROVIDERS: Visit Provider Nurse Practitioner Family | DX: N39.0 Urinary tract infection, site not specified (principal) | CPT/HCPCS: 96365; J1335 ==

== ENCOUNTER 2023-08-10 09:51 | Outpatient (REF) | payer MEDICARE, OTHER, SELFPAY | END 2023-08-10 09:52 | disposition home or self-care (01) | LOC: HO.MDS 09:51 | PROVIDERS: PCP Nurse Practitioner Family; Visit Provider Nurse Practitioner Family | DX: N39.0 Urinary tract infection, site not specified (principal) | CPT/HCPCS: 96365; J1335 ==

== ENCOUNTER 2023-08-11 09:48 | Outpatient (REF) | payer MEDICARE, OTHER, SELFPAY | END 2023-08-11 09:49 | disposition home or self-care (01) | LOC: HO.MDS 09:48 | PROVIDERS: Visit Provider Nurse Practitioner Family | DX: N39.0 Urinary tract infection, site not specified (principal) | CPT/HCPCS: 96365; J1335 ==

== ENCOUNTER 2023-08-12 13:05 | Outpatient (REF) | payer MEDICARE, OTHER, SELFPAY | END 2023-08-12 13:06 | disposition home or self-care (01) | LOC: HO.MDS 13:05 | PROVIDERS: PCP Family Medicine; Visit Provider Nurse Practitioner Family | DX: N39.0 Urinary tract infection, site not specified (principal) | CPT/HCPCS: 96365; J1335 ==

== ENCOUNTER 2023-08-13 12:35 | Outpatient (REF) | payer MEDICARE, OTHER, SELFPAY | END 2023-08-13 12:36 | disposition home or self-care (01) | LOC: HO.MDS 12:35 | PROVIDERS: Visit Provider Nurse Practitioner Family | DX: N39.0 Urinary tract infection, site not specified (principal) | CPT/HCPCS: 96365; J1335 ==

== ENCOUNTER → 2023-08-15 11:23 | Outpatient (BNVA) | payer MEDICARE, OTHER, SELFPAY | PROVIDERS: PCP Nurse Practitioner Family; Visit Provider Urology | DX: N31.9 Neuromuscular dysfunction of bladder, unspecified (principal) | CPT/HCPCS: 51705 ==

== ENCOUNTER 2023-08-26 15:31 | Outpatient (REF) | payer MEDICARE, OTHER, SELFPAY | END 2023-08-26 15:32 | disposition home or self-care (01) | LOC: HO.LNP 15:31 | PROVIDERS: Visit Provider Urology | DX: R39.9 Unspecified symptoms and signs involving the genitourinary system (principal) | CPT/HCPCS: 87086 ==

== ENCOUNTER 2023-09-04 14:49 | Outpatient (REF) | payer MEDICARE, OTHER, SELFPAY ==
--- NOTE | ~2023-09-04 | IR_ITS ---
PROCEDURE: IR INSERTION OF PICC CLINICAL INFORMATION: Need for long-term intravenous access COMPARISON: None available. TECHNIQUE/FINDINGS: All elements of maximal sterile barrier technique followed including use of cap, mask, sterile gown, sterile gloves, a sterile full body drape and hand hygiene. Also followed skin preparation with 2% chlorhexidine for cutaneous antisepsis, and sterile ultrasound preparation with sterile gel and probe cover when applicable. Patient was placed supine on the fluoroscopy table with the right arm outstretched. Preliminary ultrasound demonstrates widely patent basilic and paired brachial veins. The right arm was sterilely prepped and draped. The right basilic vein was then accessed with a 21-gauge micropuncture needle under direct ultrasound guidance with continuous recordings and direct visualization of the needle entering the vessel lumen. The needle was then exchanged for a peel-away sheath over a 0.018 guidewire. A single lumen PICC was trimmed to 39 cm and inserted. Peel-away sheath was removed. The catheter tip was confirmed to be at the cavoatrial junction and a fluoroscopic image was saved. The catheter aspirated and flushed easily. A dressing was applied. IR/IR cvc insert peripheral IMPRESSION: Image guided placement of right arm single lumen 39 cm PICC. Catheter tip at the cavoatrial junction. Catheter is ready for immediate use
== END 2023-09-04 14:50 | disposition home or self-care (01) ==
LOC: HO.RADIR 14:49
PROVIDERS: Visit Provider Urology
DX: N39.0 Urinary tract infection, site not specified (principal)
CPT/HCPCS: 36573

== ENCOUNTER → 2023-09-04 14:51 | Outpatient (BNV) | payer MEDICARE, OTHER, SELFPAY | PROVIDERS: Visit Provider Student in an Organized Health Care Education/Training Program | DX: N39.0 Urinary tract infection, site not specified (principal) | CPT/HCPCS: 36573 ==

== ENCOUNTER 2023-09-04 16:00 | Outpatient (REF) | payer MEDICARE, OTHER, SELFPAY | END 2023-09-04 16:01 | disposition home or self-care (01) | LOC: HO.MDS 16:00 | PROVIDERS: Visit Provider Urology | DX: N39.0 Urinary tract infection, site not specified (principal) | CPT/HCPCS: 36573; 96365; J1335 ==

== ENCOUNTER 2023-09-05 10:05 | Outpatient (REF) | payer MEDICARE, OTHER, SELFPAY | END 2023-09-05 10:06 | disposition home or self-care (01) | LOC: HO.MDS 10:05 | PROVIDERS: Visit Provider Urology | DX: N39.0 Urinary tract infection, site not specified (principal) | CPT/HCPCS: 96365; J1335 ==

== ENCOUNTER 2023-09-06 09:47 | Outpatient (REF) | payer MEDICARE, OTHER, SELFPAY | END 2023-09-06 09:48 | disposition home or self-care (01) | LOC: HO.MDS 09:47 | PROVIDERS: Visit Provider Urology | DX: N39.0 Urinary tract infection, site not specified (principal) | CPT/HCPCS: 96365; J1335 ==

== ENCOUNTER 2023-09-07 09:58 | Outpatient (REF) | payer MEDICARE, OTHER, SELFPAY | END 2023-09-07 09:59 | disposition home or self-care (01) | LOC: HO.MDS 09:58 | PROVIDERS: Visit Provider Urology | DX: N39.0 Urinary tract infection, site not specified (principal) | CPT/HCPCS: 96365; J1335 ==

== ENCOUNTER 2023-09-08 09:52 | Outpatient (REF) | payer MEDICARE, OTHER, SELFPAY | END 2023-09-08 09:53 | disposition home or self-care (01) | LOC: HO.MDS 09:52 | PROVIDERS: Visit Provider Urology | DX: N39.0 Urinary tract infection, site not specified (principal) | CPT/HCPCS: 96365; J1335 ==

== ENCOUNTER 2023-09-09 09:56 | Outpatient (REF) | payer MEDICARE, OTHER, SELFPAY | END 2023-09-09 09:57 | disposition home or self-care (01) | LOC: HO.MDS 09:56 | PROVIDERS: Visit Provider Urology | DX: N39.0 Urinary tract infection, site not specified (principal) | CPT/HCPCS: 96365; J1335 ==

== ENCOUNTER 2023-09-10 10:28 | Outpatient (REF) | payer MEDICARE, OTHER, SELFPAY | END 2023-09-10 10:29 | disposition home or self-care (01) | LOC: HO.MDS 10:28 | PROVIDERS: Visit Provider Urology | DX: N39.0 Urinary tract infection, site not specified (principal) | CPT/HCPCS: 96365; J1335 ==

== ENCOUNTER 2023-09-11 11:25 | Outpatient (REF) | payer MEDICARE, OTHER, SELFPAY | END 2023-09-11 11:26 | disposition home or self-care (01) | LOC: HO.MDS 11:25 | PROVIDERS: Visit Provider Urology | DX: N39.0 Urinary tract infection, site not specified (principal) | CPT/HCPCS: 96365; J1335 ==

== ENCOUNTER 2023-09-12 12:46 | Outpatient (REF) | payer MEDICARE, OTHER, SELFPAY | END 2023-09-12 12:47 | disposition home or self-care (01) | LOC: HO.MDS 12:46 | PROVIDERS: Visit Provider Urology | DX: N39.0 Urinary tract infection, site not specified (principal); N31.9 Neuromuscular dysfunction of bladder, unspecified | CPT/HCPCS: 51705; 96365; J1335 ==

== ENCOUNTER 2023-09-13 09:53 | Outpatient (REF) | payer MEDICARE, OTHER, SELFPAY | END 2023-09-13 09:54 | disposition home or self-care (01) | LOC: HO.MDS 09:53 | PROVIDERS: Visit Provider Urology | DX: N39.0 Urinary tract infection, site not specified (principal) | CPT/HCPCS: 96365; J1335 ==

== ENCOUNTER 2023-09-14 09:53 | Outpatient (REF) | payer MEDICARE, OTHER, SELFPAY | END 2023-09-14 09:54 | disposition home or self-care (01) | LOC: HO.MDS 09:53 | PROVIDERS: PCP Family Medicine; Visit Provider Urology | DX: N39.0 Urinary tract infection, site not specified (principal) | CPT/HCPCS: 96365; J1335 ==

== ENCOUNTER 2023-09-16 09:53 | Outpatient (REF) | payer MEDICARE, OTHER, SELFPAY | END 2023-09-16 09:54 | disposition home or self-care (01) | LOC: HO.MDS 09:53 | PROVIDERS: Visit Provider Urology | DX: N39.0 Urinary tract infection, site not specified (principal) | CPT/HCPCS: 96365; J1335 ==

== ENCOUNTER 2023-09-17 09:53 | Outpatient (REF) | payer MEDICARE, OTHER, SELFPAY | END 2023-09-17 09:54 | disposition home or self-care (01) | LOC: HO.MDS 09:53 | PROVIDERS: Visit Provider Urology | DX: N39.0 Urinary tract infection, site not specified (principal) | CPT/HCPCS: 96365; J1335 ==

== ENCOUNTER 2023-09-18 09:38 | Outpatient (REF) | payer MEDICARE, OTHER, SELFPAY | END 2023-09-18 09:39 | disposition home or self-care (01) | LOC: HO.MDS 09:38 | PROVIDERS: Visit Provider Urology | DX: N39.0 Urinary tract infection, site not specified (principal) | CPT/HCPCS: 96365; J1335 ==

== ENCOUNTER 2023-09-19 09:35 | Outpatient (REF) | payer MEDICARE, OTHER, SELFPAY | END 2023-09-19 09:36 | disposition home or self-care (01) | LOC: HO.MDS 09:35 | PROVIDERS: Visit Provider Urology | DX: N39.0 Urinary tract infection, site not specified (principal) | CPT/HCPCS: 96365; J1335 ==

== ENCOUNTER 2023-09-20 11:23 | Day surgery (SDC) | payer MEDICARE, OTHER, SELFPAY ==
--- NOTE | ~2023-09-20 | IR_ITS ---
CLINICAL HISTORY: Needs long-term intermittent IV access. PROCEDURES: 1. Real-time ultrasound-guided access into the right internal jugular vein after documentation of selected vessel patency, and permanent image storing in the patient records. 2. Placement of a 6.6 [place] single-lumen power port. 3. Removal of right arm PICC CLINICIAN: Murali Gong PA-C MEDICATIONS: - Versed 1 mg, Fentanyl 50 mcg, Lidocaine 1% 10 mL SQ -Antibiotics: Ancef 2g -For additional details, please see nursing flowsheet. Complications: None. Estimated blood loss: <5 ml Specimens: None. Contrast: None. Fluoroscopy time: 2.4 min MODERATE SEDATION TIME: 50 min PROCEDURE NOTE: The procedure, risks, benefits, and alternatives were carefully explained to the patient and written informed consent was obtained. The patient was placed supine on the fluoroscopy table. A timeout was performed. The right neck and chest was prepped and draped in usual sterile fashion. Maximum barrier technique was utilized. Local anesthesia was administered to the access site with 1% lidocaine. Under ultrasound guidance, the right internal jugular vein was accessed with a 5 fr micropuncture set. A 0.035 in wire was advanced into the IVC. A peel-away sheath was advanced over the wire and into the SVC, and the wire was removed. Next, subcutaneous lidocaine was administered to the chest. The port pocket was created after the skin incision, utilizing blunt dissection. Using blunt dissection, a subcutaneous tunnel was created that connects from the port pocket to the venotomy site. Through the peel-away sheath, the 6.6 Nigerian port catheter was placed. The catheter position was verified with fluoroscopy to be at the superior vena cava/right atrial junction. The port was connected to the catheter and was placed in the pocket. The venotomy site was closed with a 3-0 Vicryl subcutaneous suture. The port incision site was closed with interrupted 3-0 Vicryl subcutaneous sutures and surgical glue. Prior to closing the skin, 1 g of Ancef solution was placed in the pocket. The port was tested, flushed, and packed with heparin per routine protocol. The patient tolerated the procedure well. The right arm PICC was removed entirely. A dressing was applied to the arm and secured with Tegaderm. The patient was stable after the procedure and was transferred to the PACU. The procedure was performed under moderate sedation and with a dedicated nurse with continuous monitoring of vital signs. A permanent image of the ultrasound the neck and fluoroscopic image of the chest was saved and sent to PACS. FINDINGS: 1. Patent right internal jugular vein 2. Placement of a 6.6 [place] single lumen power port. 3. Port flushes and aspirates very well with a 10 mL syringe. No pneumothorax. IR/IR cvc insert tunnel w prt/cloth printing utility worker IMPRESSION: Placement of a 6.6 [place] single-lumen power port removal of right arm PICC. PLAN: - The patient will be discharged home when stable by sedation protocol. - Port may be used immediately. This procedure was performed by Murali Gong PA-C, and directly supervised by Dr. Fuchs
--- NOTE | ~2023-09-20 | IR_ITS ---
CLINICAL HISTORY: Needs long-term intermittent IV access. PROCEDURES: 1. Real-time ultrasound-guided access into the right internal jugular vein after documentation of selected vessel patency, and permanent image storing in the patient records. 2. Placement of a 6.6 [place] single-lumen power port. 3. Removal of right arm PICC CLINICIAN: Murali Gong PA-C MEDICATIONS: - Versed 1 mg, Fentanyl 50 mcg, Lidocaine 1% 10 mL SQ -Antibiotics: Ancef 2g -For additional details, please see nursing flowsheet. Complications: None. Estimated blood loss: <5 ml Specimens: None. Contrast: None. Fluoroscopy time: 2.4 min MODERATE SEDATION TIME: 50 min PROCEDURE NOTE: The procedure, risks, benefits, and alternatives were carefully explained to the patient and written informed consent was obtained. The patient was placed supine on the fluoroscopy table. A timeout was performed. The right neck and chest was prepped and draped in usual sterile fashion. Maximum barrier technique was utilized. Local anesthesia was administered to the access site with 1% lidocaine. Under ultrasound guidance, the right internal jugular vein was accessed with a 5 fr micropuncture set. A 0.035 in wire was advanced into the IVC. A peel-away sheath was advanced over the wire and into the SVC, and the wire was removed. Next, subcutaneous lidocaine was administered to the chest. The port pocket was created after the skin incision, utilizing blunt dissection. Using blunt dissection, a subcutaneous tunnel was created that connects from the port pocket to the venotomy site. Through the peel-away sheath, the 6.6 [place] port catheter was placed. The catheter position was verified with fluoroscopy to be at the superior vena cava/right atrial junction. The port was connected to the catheter and was placed in the pocket. The venotomy site was closed with a 3-0 Vicryl subcutaneous suture. The port incision site was closed with interrupted 3-0 Vicryl subcutaneous sutures and surgical glue. Prior to closing the skin, 1 g of Ancef solution was placed in the pocket. The port was tested, flushed, and packed with heparin per routine protocol. The patient tolerated the procedure well. The right arm PICC was removed entirely. A dressing was applied to the arm and secured with Tegaderm. The patient was stable after the procedure and was transferred to the PACU. The procedure was performed under moderate sedation and with a dedicated nurse with continuous monitoring of vital signs. A permanent image of the ultrasound the neck and fluoroscopic image of the chest was saved and sent to PACS. FINDINGS: 1. Patent right internal jugular vein 2. Placement of a 6.6 [place] single lumen power port. 3. Port flushes and aspirates very well with a 10 mL syringe. No pneumothorax. IR/IR cvc remove any age IMPRESSION: Placement of a 6.6 [place] single-lumen power port removal of right arm PICC. PLAN: - The patient will be discharged home when stable by sedation protocol. - Port may be used immediately. This procedure was performed by Murali Gong PA-C, and directly supervised by Dr. Fuchs
[2023-09-20 11:54] VITALS: BMI 34.9
[2023-09-20 12:03] LABS: Prothrombin Time 12.4 SEC (11.1-13.3)
[2023-09-20 12:05] LABS: Glucose, Whole Blood 118 mg/dL (60-115)
[2023-09-20 12:06] LABS: Partial Thromboplastin Time 32.8 SEC (26.0-36.4)
--- NOTE | 2023-09-20 14:25 | P.RADPN_ITS ---
RADIOLOGY Narrative Narrative: Procedure Note Right IJ Single Lumen Port Indications: needs intermediate intermittent iv access 6.6 fr SL Right IJ port placed. Tip at cavoatrial junction. Ok for use. PICC removed. Murali LEONARDO Interventional Radiology
[2023-09-20 14:35] VITALS: BP 146/55; PULSE 62; RESP 18; TEMP 37.3; O2SAT 95
[2023-09-20 14:50] VITALS: BP 156/59; PULSE 63; RESP 18; TEMP 37.2; O2SAT 96
--- NOTE | 2023-10-24 15:22 | PC.NURSE ---
10/24/23 QA chart review
== END 2023-09-20 15:10 | disposition home or self-care (01) ==
LOC: HO.SSS 11:24
PROVIDERS: Physician Assistant Surgical; Student in an Organized Health Care Education/Training Program; PCP Family Medicine; Visit Provider Urology
DX: N39.0 Urinary tract infection, site not specified (principal); N31.9 Neuromuscular dysfunction of bladder, unspecified; E11.9 Type 2 diabetes mellitus without complications; C91.10 Chronic lymphocytic leukemia of B-cell type not having achieved remission; I10 Essential (primary) hypertension; E78.00 Pure hypercholesterolemia, unspecified; G47.33 Obstructive sleep apnea (adult) (pediatric); Z85.3 Personal history of malignant neoplasm of breast; Z88.0 Allergy status to penicillin; Z88.1 Allergy status to other antibiotic agents; Z88.8 Allergy status to other drugs, medicaments and biological substances; Z91.040 Latex allergy status; Z91.041 Radiographic dye allergy status
CPT/HCPCS: 36415; 36561; 76937; 82947; 85610; 85730; 99152; 99153; C1769; C1788; J0690; J1642; J1644; J2250; J2310; J3010

== ENCOUNTER → 2023-09-20 12:41 | Outpatient (BNV) | payer MEDICARE, OTHER, SELFPAY | PROVIDERS: PCP Family Medicine; Visit Provider Student in an Organized Health Care Education/Training Program | DX: N39.0 Urinary tract infection, site not specified (principal) | CPT/HCPCS: 36561; 76937 ==

== ENCOUNTER 2023-10-04 10:32 | Outpatient (REF) | payer MEDICARE, OTHER, SELFPAY | END 2023-10-04 10:33 | disposition home or self-care (01) | LOC: HO.LNP 10:32 | PROVIDERS: Visit Provider Urology | DX: R82.90 Unspecified abnormal findings in urine (principal) | CPT/HCPCS: 87086; 87088; 87186 ==

== ENCOUNTER → 2023-10-10 13:24 | Outpatient (BNVA) | payer MEDICARE, OTHER, SELFPAY | PROVIDERS: Visit Provider Urology | DX: Z43.5 Encounter for attention to cystostomy (principal); N31.9 Neuromuscular dysfunction of bladder, unspecified | CPT/HCPCS: 51705 ==

== ENCOUNTER 2023-10-11 13:32 | Outpatient (REF) | payer MEDICARE, OTHER, SELFPAY | END 2023-10-11 13:33 | disposition home or self-care (01) | LOC: HO.MDS 13:32 | PROVIDERS: Visit Provider Urology | DX: N39.0 Urinary tract infection, site not specified (principal) | CPT/HCPCS: 96365; J1335; J1642 ==

== ENCOUNTER 2023-10-12 09:57 | Outpatient (REF) | payer MEDICARE, OTHER, SELFPAY | END 2023-10-12 09:58 | disposition home or self-care (01) | LOC: HO.MDS 09:57 | PROVIDERS: PCP Family Medicine; Visit Provider Urology | DX: N39.0 Urinary tract infection, site not specified (principal) | CPT/HCPCS: 96365; J1335; J1642 ==

== ENCOUNTER 2023-10-13 10:00 | Outpatient (REF) | payer MEDICARE, OTHER, SELFPAY | END 2023-10-13 10:01 | disposition home or self-care (01) | LOC: HO.MDS 10:00 | PROVIDERS: PCP Family Medicine; Visit Provider Urology | DX: N39.0 Urinary tract infection, site not specified (principal) | CPT/HCPCS: 96365; J1335; J1642 ==

== ENCOUNTER 2023-10-14 09:57 | Outpatient (REF) | payer MEDICARE, OTHER, SELFPAY | END 2023-10-14 09:58 | disposition home or self-care (01) | LOC: HO.MDS 09:57 | PROVIDERS: PCP Family Medicine; Visit Provider Urology | DX: N39.0 Urinary tract infection, site not specified (principal) | CPT/HCPCS: 96365; J1335; J1642 ==

== ENCOUNTER 2023-10-15 11:30 | Outpatient (REF) | payer MEDICARE, OTHER, SELFPAY | END 2023-10-15 11:31 | disposition home or self-care (01) | LOC: HO.MDS 11:30 | PROVIDERS: Visit Provider Urology | DX: N39.0 Urinary tract infection, site not specified (principal) | CPT/HCPCS: 96365; J1335; J1642 ==

== ENCOUNTER 2023-10-16 09:58 | Outpatient (REF) | payer MEDICARE, OTHER, SELFPAY | END 2023-10-16 09:59 | disposition home or self-care (01) | LOC: HO.MDS 09:58 | PROVIDERS: Visit Provider Urology | DX: N39.0 Urinary tract infection, site not specified (principal) | CPT/HCPCS: 96365; J1335; J1642 ==

== ENCOUNTER 2023-10-17 10:23 | Outpatient (REF) | payer MEDICARE, OTHER, SELFPAY | END 2023-10-17 10:24 | disposition home or self-care (01) | LOC: HO.MDS 10:23 | PROVIDERS: Visit Provider Urology | DX: N39.0 Urinary tract infection, site not specified (principal) | CPT/HCPCS: 96365; J1335; J1642 ==

== ENCOUNTER 2023-10-18 11:23 | Outpatient (REF) | payer MEDICARE, OTHER, SELFPAY | END 2023-10-18 11:24 | disposition home or self-care (01) | LOC: HO.MDS 11:23 | PROVIDERS: Visit Provider Urology | DX: N39.0 Urinary tract infection, site not specified (principal) | CPT/HCPCS: 96365; J1335; J1642 ==

== ENCOUNTER 2023-10-19 09:53 | Outpatient (REF) | payer MEDICARE, OTHER, SELFPAY | END 2023-10-19 09:54 | disposition home or self-care (01) | LOC: HO.MDS 09:53 | PROVIDERS: Visit Provider Urology | DX: N39.0 Urinary tract infection, site not specified (principal) | CPT/HCPCS: 96365; J1335; J1642 ==

== ENCOUNTER 2023-10-20 09:53 | Outpatient (REF) | payer MEDICARE, OTHER, SELFPAY | END 2023-10-20 09:54 | disposition home or self-care (01) | LOC: HO.MDS 09:53 | PROVIDERS: Visit Provider Urology | DX: N39.0 Urinary tract infection, site not specified (principal) | CPT/HCPCS: 96365; J1335; J1642 ==

== ENCOUNTER 2023-10-21 11:35 | Outpatient (REF) | payer MEDICARE, OTHER, SELFPAY | END 2023-10-21 11:36 | disposition home or self-care (01) | LOC: HO.MDS 11:35 | PROVIDERS: Visit Provider Urology | DX: N39.0 Urinary tract infection, site not specified (principal) | CPT/HCPCS: 96365; J1335; J1642 ==

== ENCOUNTER 2023-10-23 10:05 | Outpatient (REF) | payer MEDICARE, OTHER, SELFPAY | END 2023-10-23 10:06 | disposition home or self-care (01) | LOC: HO.MDS 10:05 | PROVIDERS: Visit Provider Urology | DX: N39.0 Urinary tract infection, site not specified (principal) | CPT/HCPCS: 96365; J1335 ==

== ENCOUNTER 2023-10-24 10:30 | Outpatient (REF) | payer MEDICARE, OTHER, SELFPAY | END 2023-10-24 10:31 | disposition home or self-care (01) | LOC: HO.MDS 10:30 | PROVIDERS: Visit Provider Urology | DX: N39.0 Urinary tract infection, site not specified (principal) | CPT/HCPCS: 96365; J1335; J1642 ==

== ENCOUNTER 2023-10-25 11:03 | Outpatient (REF) | payer MEDICARE, OTHER, SELFPAY | END 2023-10-25 11:04 | disposition home or self-care (01) | LOC: HO.MDS 11:03 | PROVIDERS: Visit Provider Urology | DX: N39.0 Urinary tract infection, site not specified (principal) | CPT/HCPCS: 96365; J1335; J1642 ==

== ENCOUNTER → 2023-10-29 13:29 | Outpatient (BNVA) | payer MEDICARE, OTHER, SELFPAY | PROVIDERS: Visit Provider Urology | DX: N31.9 Neuromuscular dysfunction of bladder, unspecified (principal) | CPT/HCPCS: 51705 ==

== ENCOUNTER 2023-10-31 08:36 | Outpatient (REF) | payer MEDICARE, OTHER, SELFPAY ==
--- NOTE | ~2023-10-31 | XR_ITS ---
EXAMINATION: XR PELVIS CLINICAL INFORMATION: Pain in unspecified hip. COMPARISON: 02/21/2023 and 02/05/2023 pelvis. 01/03/2023 CT left hip. TECHNIQUE: 2 AP view of the pelvis. FINDINGS: The bones are diffusely demineralized, limiting sensitivity for detection of fracture. Extensive vascular calcifications. Degenerative changes on limited images of the inferior aspects of the bilateral sacroiliac joints. Degenerative changes in the right hip. Redemonstration of left hip total arthroplasty with 2 acetabular screws. The more medial of the screws appears broken at the base, close to the acetabular component of the prosthesis. XR/XR pelvis 1-2V IMPRESSION: Redemonstration of left hip total arthroplasty with 2 acetabular screws. The more medial of the screws appears broken at the base, close to the acetabular component of the prosthesis. This study was presented today 11/06/2023 for interpretation. Prompt priority results supplied at this time to the referring provider as requested by the provider.
== END 2023-10-31 08:37 | disposition home or self-care (01) ==
LOC: HO.HOSX 08:36
PROVIDERS: Visit Provider Orthopaedic Surgery
DX: M25.552 Pain in left hip (principal); Z96.642 Presence of left artificial hip joint
CPT/HCPCS: 36415; 72170; 80048; 85652; 86140; 99212

== ENCOUNTER 2023-10-31 10:39 | Outpatient (AMB) | payer MEDICARE, OTHER, SELFPAY ==
--- NOTE | 2023-10-31 10:44 | MHC.OFFVIS ---
Intake Vital Signs 10/31/23 10:58 Height 5 ft 4.5 in Intake Visit Reasons: ov-LT ANGELICA 01/08/23 NE Intake Note: Kaitlin is a 77 year old female who presents today for a post operative appointment s/p Left ANGELICA 01/08/23. At her last visit she was instructed to follow up PRN. Patient reports that she has had a sudden onset of left hip pain that was onset the same time of a UTI, the UTi was treated and has resolved but her pain is stilll present. She has not been taking anything for this pain. She has pain with ambulation that resolves with rest. Her pain is felt in the groind ans lateral hip that radiates down the left leg. she also mentions that she has numbness that radtes along the leg. Allergies amoxicillin [AMOXICILLIN] Allergy (Severe, Verified 10/31/23 10:50) stroke, blood clots ciprofloxacin [From CIPRO] Allergy (Severe, Verified 10/31/23 10:50) ANAPHYLAXIS Iodinated Contrast Media [IV DYE, IODINE CONTAINING CONTRAST ] Allergy (Severe, Verified 10/31/23 10:50) HIVES levofloxacin Allergy (Severe, Verified 10/31/23 10:50) Anaphylaxis liraglutide Allergy (Severe, Verified 10/31/23 10:50) Headache Penicillins Allergy (Severe, Verified 10/31/23 10:50) stroke, blood clots phenazopyridine [Pyridium] Allergy (Severe, Verified 10/31/23 10:50) Anaphylaxis FREYA Inhibitors Allergy (Intermediate, Verified 10/31/23 10:50) Cough ARB-Angiotensin Receptor Antagonist Allergy (Intermediate, Verified 10/31/23 10:50) Cough atorvastatin Allergy (Intermediate, Verified 10/31/23 10:50) Shortness of Breath cefpodoxime Allergy (Intermediate, Verified 10/31/23 10:50) Dizziness, nausea celecoxib [From CELEBREX] Allergy (Intermediate, Verified 10/31/23 10:50) HIVES doxazosin Allergy (Intermediate, Verified 10/31/23 10:50) Shortness of Breath fluticasone [Advair Diskus] Allergy (Intermediate, Verified 10/31/23 10:50) Anxiety gabapentin [From Neurontin] Allergy (Intermediate, Verified 10/31/23 10:50) Headache hydralazine Allergy (Intermediate, Verified 10/31/23 10:50) Shortness of Breath latex Allergy (Intermediate, Verified 10/31/23 10:50) Hives linezolid Allergy (Intermediate, Verified 10/31/23 10:50) Nausea and Vomiting meloxicam Allergy (Intermediate, Verified 10/31/23 10:50) Unknown salmeterol [Advair Diskus] Allergy (Intermediate, Verified 10/31/23 10:50) Anxiety Tetanus Vaccines and Toxoid Allergy (Intermediate, Verified 10/31/23 10:50) Swelling torsemide Allergy (Intermediate, Verified 10/31/23 10:50) Shortness of Breath cephalexin [Keflex] Allergy (Mild, Verified 10/31/23 10:50) Nausea HPI ov-LT ANGELICA 01/08/23 NE HPI Details Kaitlni is a 78 year old woman presenting ~9 1/2 months S/P left ANGELICA. She complains of increased left hip pain for ~3 weeks when she first developed a UTI. She says the UTI has resolved but she continues to have hip pain. She says her pain is localized to her groin and lateral aspect of her hip, which radiates down her leg. It is not painful to sit but walking is painful. She was doing well with resolution of her pre operative pain. She did gall ~3 months ago but did not develop pain after this. She was walking with a walker still becasue of balance issues. She recently had a IVC port placed for abx for cronic UTI's. This does not correlate with her symptoms. She stopped taking abx for her UTI about one week ago. Her symptoms of hip pain have been present for 3 weeks. She is not taking any medication for her pain. ON LICENSE OF [facility] Medical History Osteoarthritis Morbid obesity Allergy to multiple antibiotics Depression Arthritis of left hip Wears dentures Neurogenic urinary bladder disorder History of blood transfusion History of CVA (cerebrovascular accident) Seasonal allergies History of numbness PONV (postoperative nausea and vomiting) Self-catheterizes urinary bladder Diabetes with neurologic complications Type 2 diabetes mellitus with unspecified complications Anemia CLL (chronic lymphocytic leukemia) Sleep apnea Diabetes mellitus CLL (chronic lymphocytic leukemia) Arthritis Fibromyalgia Hypercholesterolemia Hypertension History of bilateral breast cancer Urinary retention with incomplete bladder emptying Surgical History History of total left hip replacement S/P Botox injection History of suprapubic catheter S/P left breast biopsy History of esophagogastroduodenoscopy (EGD) Hx of colonoscopy History of bladder repair surgery History of total hysterectomy S/P breast biopsy, right History of back surgery History of biopsy of bladder Family History Mother Breast cancer Father Heart disease Father Lung cancer Mother Colon cancer Brother Pancreatic cancer Social History Household Members: Spouse Housing: House Are you a primary medication care manager to a significant other at home: No Do you presently have visiting nurse or other home services: Yes Alcohol intake: never Comment: patient refused telesiter,removed per pt request Patient Tobacco Use Status: Never used Tobacco Advance Directives Date on File: 07/30/23 service: No Current occupational status: retired Female Reproductive History Menstrual Age of Menarche: 15 Review of Systems Const All systems reviewed & are unremarkable except as noted in HPI and below Physical Exam Const General: no acute distress, alert and awake Orientation/consciousness: patient oriented x3 HEENT Head: Yes normocephalic and Yes atraumatic Mouth: moist mucous membranes Eyes General: appearance normal, both eyes and all related structures EOM: EOMs intact bilaterally Chest Other: no audible wheezing. Resp Other: No audible wheezing Effort & Inspection: normal respiratory effort and able to speak in complete sentences Cardio Other: Radial pulse palpable with no rythmic abnormalities Jugular venous distension: no JVD Back/Spine/Pelvis Cervical Spine: normal cervical lordosis Skin General skin exam: turgor normal Rashes: no rashes Neuro General: patient oriented x3 Extrem Other: no pain with passive hip ROM active flexion painful + gait antalgia with walker Psych Appearance: grossly normal Mental Status: mental status grossly normal Speech and movement: Normal speech and movement present Affect: normal affect Attitude: cooperative Results Reviewed Results Reviewed: I personally reviewed relevant radiographs. There is an acetabular screw broken and ? lucency around the cup. This is different when compared to 03/01 radiographs Assessment & Plan Assessment & Plan (1) Status post total hip replacement, left: Code(s): Z96.642 - Presence of left artificial hip joint Plan: 3 weeks of groin pain with a broken screw on radiographs. This may be a result of a fall she had about 3 months ago but her pain has only been present for3 weeks. She is on and off antibiotics for chronic UTI and had a IVC port placed about 4 weeks ago. I recommend CBC,ESR,CRP to rule out infection. We will follow up via telehealth when results are in. Aspiration would be the next step if labs are not negative. Plan Prepared for Julián Rueda MD by eRji Motta, medical insurance collector, on 10/31/23 at 10:51 AM, EST. Orders: Orders XR pelvis 1-2V Today M25.559 - Pain in unspecified hip Basic Metabolic Panel Today Z96.642 - Presence of left artificial hip joint Erythrocyte Sedimentation Rate Today Z96.642 - Presence of left artificial hip joint C Reactive Protein Today Z96.642 - Presence of left artificial hip joint Coding Level of Care Code Est Pt Level 4 (81981) Diagnoses Status post total hip replacement, left Z96.642
== END 2023-10-31 11:24 | disposition home or self-care (01) ==
PROVIDERS: PCP Family Medicine; Visit Provider Orthopaedic Surgery
DX: T84.011A Broken internal left hip prosthesis, initial encounter (principal); T84.84XA Pain due to internal orthopedic prosthetic devices, implants and grafts, initial encounter; Z96.642 Presence of left artificial hip joint
CPT/HCPCS: 99214

== ENCOUNTER 2023-10-31 11:33 | Outpatient (REF) | payer MEDICARE, OTHER, SELFPAY ==
[2023-10-31 12:42] LABS: Anion Gap 13 (12-20); Blood Urea Nitrogen 21 mg/dL (9-16); C Reactive Protein 0.23 mg/dL (< or = 0.50); Carbon Dioxide 28 mmol/L (22-29); Chloride 104 mmol/L (96-108); Estimated Glomerular Filt Rate 52; Glucose Random 150 mg/dL (60-115); Potassium 4.9 mmol/L (3.3-5.1); Sodium 140 mmol/L (135-145)
[2023-10-31 13:14] LABS: Erythrocyte Sedimentation Rate 13 MM/HR (0-20)
== END 2023-10-31 11:34 | disposition home or self-care (01) ==
LOC: HO.LAB 11:33
PROVIDERS: PCP Family Medicine; Visit Provider Orthopaedic Surgery
DX: Z13.89 Encounter for screening for other disorder (principal)
CPT/HCPCS: 36415; 80048; 85652; 86140

== ENCOUNTER 2023-11-07 13:22 | Outpatient (AMB) | payer MEDICARE, OTHER, SELFPAY ==
--- NOTE | 2023-11-07 13:27 | A.OFFVIS_ITS ---
Intake Vital Signs 11/07/23 13:28 Height 5 ft 4.5 in Weight 206 lb 5.643 oz BMI 34.9 BP 120/60 Blood Pressure Location Lt brachial Position Sitting Pulse 59 Pulse Source Pulse Oximeter Intake Visit Reasons: 6 mth f/up Intake Note: pt here for 6 month f/up Education Managers Required: No Accompanied by: Significant Other Allergies amoxicillin [AMOXICILLIN] Allergy (Severe, Verified 10/31/23 10:50) stroke, blood clots ciprofloxacin [From CIPRO] Allergy (Severe, Verified 10/31/23 10:50) ANAPHYLAXIS Iodinated Contrast Media [IV DYE, IODINE CONTAINING CONTRAST ] Allergy (Severe, Verified 10/31/23 10:50) HIVES levofloxacin Allergy (Severe, Verified 10/31/23 10:50) Anaphylaxis liraglutide Allergy (Severe, Verified 10/31/23 10:50) Headache Penicillins Allergy (Severe, Verified 10/31/23 10:50) stroke, blood clots phenazopyridine [Pyridium] Allergy (Severe, Verified 10/31/23 10:50) Anaphylaxis FREYA Inhibitors Allergy (Intermediate, Verified 10/31/23 10:50) Cough ARB-Angiotensin Receptor Antagonist Allergy (Intermediate, Verified 10/31/23 10:50) Cough atorvastatin Allergy (Intermediate, Verified 10/31/23 10:50) Shortness of Breath cefpodoxime Allergy (Intermediate, Verified 10/31/23 10:50) Dizziness, nausea celecoxib [From CELEBREX] Allergy (Intermediate, Verified 10/31/23 10:50) HIVES doxazosin Allergy (Intermediate, Verified 10/31/23 10:50) Shortness of Breath fluticasone [Advair Diskus] Allergy (Intermediate, Verified 10/31/23 10:50) Anxiety gabapentin [From Neurontin] Allergy (Intermediate, Verified 10/31/23 10:50) Headache hydralazine Allergy (Intermediate, Verified 10/31/23 10:50) Shortness of Breath latex Allergy (Intermediate, Verified 10/31/23 10:50) Hives linezolid Allergy (Intermediate, Verified 10/31/23 10:50) Nausea and Vomiting meloxicam Allergy (Intermediate, Verified 10/31/23 10:50) Unknown salmeterol [Advair Diskus] Allergy (Intermediate, Verified 10/31/23 10:50) Anxiety Tetanus Vaccines and Toxoid Allergy (Intermediate, Verified 10/31/23 10:50) Swelling torsemide Allergy (Intermediate, Verified 10/31/23 10:50) Shortness of Breath cephalexin [Keflex] Allergy (Mild, Verified 10/31/23 10:50) Nausea Medication List - Last Reconciled 11/07/23 by Gerardo Agustin MD acetaminophen 650 mg (2 x 325 mg) PO Q6H PRN 30 days amlodipine 10 mg PO DAILY ascorbic acid (vitamin C) 1,000 mg PO DAILY 90 days aspirin (Enteric Coated Aspirin) 81 mg PO DAILY atorvastatin 80 mg PO QPM blood sugar diagnostic (Accu-Chek Guide test strips) As directed carvedilol 25 mg PO BID celecoxib 200 mg PO BID 30 days citalopram 20 mg PO DAILY coenzyme Q10 (CoQ-10) 100 mg PO BEDTIME duloxetine 60 mg PO DAILY famotidine 40 mg PO BEDTIME ferrous sulfate (iron) 325 mg PO DAILY furosemide 20 mg PO DAILY ibrutinib (Imbruvica) 420 mg PO DAILY magnesium 250 mg PO BEDTIME mastectomy bra (bra, mastectomy) As Directed metformin 1,000 mg PO BID multivitamin 1 tab PO DAILY ondansetron 4 mg PO Q6H PRN oxybutynin chloride 5 mg PO BID PRN 5 days pantoprazole 40 mg PO BID pregabalin 150 mg PO BID spironolactone 25 mg PO DAILY sulindac 150 mg PO BID tramadol 50 mg PO BID PRN HPI HPI Comments History of Present Illness Details Kaitlin returns for follow-up regarding coronary disease. 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 No previous interventions. She also has numerous cardiovascular risk factors including obesity, sedentary lifestyle, diabetes, hypertension, dyslipidemia. She has chronic lymphocytic leukemia on ibrutinib. She is walking with a walker. Within limits of her activity, no clear-cut cardiac symptoms. She states she needs to go for hip surgery soon. [facility] Medical History Osteoarthritis Morbid obesity Allergy to multiple antibiotics Depression Arthritis of left hip Wears dentures Neurogenic urinary bladder disorder History of blood transfusion History of CVA (cerebrovascular accident) Seasonal allergies History of numbness PONV (postoperative nausea and vomiting) Self-catheterizes urinary bladder Diabetes with neurologic complications Type 2 diabetes mellitus with unspecified complications Anemia CLL (chronic lymphocytic leukemia) Sleep apnea Diabetes mellitus CLL (chronic lymphocytic leukemia) Arthritis Fibromyalgia Hypercholesterolemia Hypertension History of bilateral breast cancer Urinary retention with incomplete bladder emptying Surgical History History of total left hip replacement S/P Botox injection History of suprapubic catheter S/P left breast biopsy History of esophagogastroduodenoscopy (EGD) Hx of colonoscopy History of bladder repair surgery History of total hysterectomy S/P breast biopsy, right History of back surgery History of biopsy of bladder Family History Mother Breast cancer Father Heart disease Father Lung cancer Mother Colon cancer Brother Pancreatic cancer Social History Household Members: Spouse Housing: House Are you a primary cattle care worker to a significant other at home: No Do you presently have visiting nurse or other home services: Yes Alcohol intake: never Comment: patient refused telesiter,removed per pt request Patient Tobacco Use Status: Never used Tobacco Advance Directives Date on File: 07/30/23 service: No Current occupational status: retired Female Reproductive History Menstrual Age of Menarche: 15 Review of Systems Const Denies chills, Denies fatigue, Denies fever(s), Denies frequent falls, Denies weakness, Denies weight gain and Denies weight loss ENT Denies dizziness Card Denies chest pain, Denies leg edema, Denies lightheadedness, Denies palpitations, Denies dyspnea and Denies dyspnea on exertion Resp Denies cough, Denies dyspnea and Denies dyspnea on exertion GI Denies hematochezia Musc Denies abnormal gait, Denies muscle weakness, Denies numbness, Denies radiating pain into limb and Denies tingling Neuro Denies abnormal gait, Denies dizziness, Denies frequent falls, Denies numbness, Denies tingling and Denies weakness Endo Denies fatigue and Denies palpitations Physical Exam Vital Signs: Last Vital Signs Pulse 59 11/07/23 13:28 BP 120/60 11/07/23 13:28 BMI result Body Mass Index 34.9 Const General: comfortable and no acute distress Orientation/consciousness: patient oriented x3 HEENT Other: Unremarkable Head: Yes normal to inspection Neck Neck: Yes normal visual inspection Chest Chest palpation & inspection: normal inspection of the chest Resp Auscultation: clear to auscultation bilaterally Cardio Palpation: normal PMI Heart sounds: S1 normal heart sound present, S2 normal heart sound present, no gallops, Murmur heart sound present systolic II/ and at the right sternal border and no rubs GI Palpation (GI): Soft to palpation Back/Spine/Pelvis Other: unremarkable Skin General skin exam: no rashes or lesions noted Neuro General: patient oriented x3 Extrem General: Yes normal to inspection Psych Mental Status: mental status grossly normal Assessment & Plan Assessment & Plan (1) Atherosclerotic cardiovascular disease: Code(s): I25.10 - Atherosclerotic heart disease of [place] coronary artery without angina pectoris Plan: Cardiac catheterization from 2020- 70% mid-LAD stenosis; 70% OM 1 and 60% proximal RCA stenosis. She remains on aspirin and statins. Last LDL 66 mg/dL. Due to upcoming surgery with general anesthesia, plan perfusion imaging. (2) Preoperative cardiovascular examination: Code(s): Z01.810 - Encounter for preprocedural cardiovascular examination Plan: Plan echocardiogram/stress test as above. Known multivessel disease. (3) Type 2 diabetes mellitus with unspecified complications: Code(s): E11.8 - Type 2 diabetes mellitus with unspecified complications Plan: On metformin. Last hemoglobin A1c 5.3%. (4) Essential hypertension: Code(s): I10 - Essential (primary) hypertension Plan: Stable. No changes. Current meds include carvedilol, amlodipine, spironolactone. Of note, she also has numerous medication allergies including FREYA inhibitors, ARB, doxazosin, hydralazine. Her potassium also runs high. Overall, not too much of options. (5) Hyperlipidemia, unspecified: Code(s): E78.5 - Hyperlipidemia, unspecified Plan: Stable. No changes. Orders: Orders CA echo transthoracic complete Today I25.10 - Atherosclerotic heart disease of [place] coronary artery without angina pectoris CA lexiscan stress w baltazar Today I20.9 - Angina pectoris, unspecified, I25.10 - Atherosclerotic heart disease of [place] coronary artery without angina pectoris NM cardiolite stress test Today I25.10 - Atherosclerotic heart disease of [place] coronary artery without angina pectoris, R07.2 - Precordial pain Coding Level of Care Code Est Pt Level 4 (47559) Diagnoses Atherosclerotic cardiovascular disease I25.10 Preoperative cardiovascular examination Z01.810 Type 2 diabetes mellitus with unspecified complications E11.8 Essential hypertension I10 Hyperlipidemia, unspecified E78.5
[2023-11-07 13:28] VITALS: BP 120/60; PULSE 59; BMI 34.9
== END 2023-11-07 13:51 | disposition home or self-care (01) ==
PROVIDERS: PCP Family Medicine; Visit Provider Internal Medicine
DX: I25.10 Atherosclerotic heart disease of native coronary artery without angina pectoris (principal); Z01.810 Encounter for preprocedural cardiovascular examination; E11.8 Type 2 diabetes mellitus with unspecified complications; I10 Essential (primary) hypertension; E78.5 Hyperlipidemia, unspecified
CPT/HCPCS: 99214

== ENCOUNTER → 2023-11-07 13:22 | Outpatient (BNVA) | payer MEDICARE, OTHER, SELFPAY | PROVIDERS: PCP Family Medicine; Visit Provider Internal Medicine | DX: Z01.810 Encounter for preprocedural cardiovascular examination (principal); I25.10 Atherosclerotic heart disease of native coronary artery without angina pectoris; I10 Essential (primary) hypertension; E78.5 Hyperlipidemia, unspecified; E11.8 Type 2 diabetes mellitus with unspecified complications | CPT/HCPCS: 99212 ==

== ENCOUNTER 2023-11-11 11:10 | Outpatient (REF) | payer MEDICARE, OTHER, SELFPAY | END 2023-11-11 11:11 | disposition home or self-care (01) | LOC: HO.LNP 11:10 | PROVIDERS: Visit Provider Urology | DX: R82.90 Unspecified abnormal findings in urine (principal) | CPT/HCPCS: 87086; 87088; 87186 ==

== ENCOUNTER 2023-11-18 12:00 | Outpatient (AMB) | payer MEDICARE, OTHER, SELFPAY ==
[2023-11-18 12:07] VITALS: BMI 34.2
--- NOTE | 2023-11-18 12:07 | A.OFFVIS_ITS ---
Intake Vital Signs 11/18/23 12:07 Height 5 ft 4.5 in Weight 202 lb 6.15 oz BMI 34.2 Blood Pressure Location Lt brachial Position Sitting Intake Visit Reasons: cic-pt n/s 09/11 Intake Note: Kaitlin returns in follow up of IBS and CIC. CC: Patient reports abdominal pain but states she thinks that's from UTIs twice a month. She reports nausea when she has a UTI. States she takes Miralax when constipated and this helps. Correctional Classification Counselor Required: No Accompanied by: Spouse Allergies amoxicillin [AMOXICILLIN] Allergy (Severe, Verified 11/18/23 12:12) stroke, blood clots ciprofloxacin [From CIPRO] Allergy (Severe, Verified 11/18/23 12:12) ANAPHYLAXIS Iodinated Contrast Media [IV DYE, IODINE CONTAINING CONTRAST ] Allergy (Severe, Verified 11/18/23 12:12) HIVES levofloxacin Allergy (Severe, Verified 11/18/23 12:12) Anaphylaxis liraglutide Allergy (Severe, Verified 11/18/23 12:12) Headache Penicillins Allergy (Severe, Verified 11/18/23 12:12) stroke, blood clots phenazopyridine [Pyridium] Allergy (Severe, Verified 11/18/23 12:12) Anaphylaxis FREYA Inhibitors Allergy (Intermediate, Verified 11/18/23 12:12) Cough ARB-Angiotensin Receptor Antagonist Allergy (Intermediate, Verified 11/18/23 12:12) Cough cefpodoxime Allergy (Intermediate, Verified 11/18/23 12:12) Dizziness, nausea doxazosin Allergy (Intermediate, Verified 11/18/23 12:12) Shortness of Breath fluticasone [Advair Diskus] Allergy (Intermediate, Verified 11/18/23 12:12) Anxiety gabapentin [From Neurontin] Allergy (Intermediate, Verified 11/18/23 12:12) Headache hydralazine Allergy (Intermediate, Verified 11/18/23 12:12) Shortness of Breath latex Allergy (Intermediate, Verified 11/18/23 12:12) Hives linezolid Allergy (Intermediate, Verified 11/18/23 12:12) Nausea and Vomiting meloxicam Allergy (Intermediate, Verified 11/18/23 12:12) Unknown salmeterol [Advair Diskus] Allergy (Intermediate, Verified 11/18/23 12:12) Anxiety Tetanus Vaccines and Toxoid Allergy (Intermediate, Verified 11/18/23 12:12) Swelling torsemide Allergy (Intermediate, Verified 11/18/23 12:12) Shortness of Breath cephalexin [Keflex] Allergy (Mild, Verified 11/18/23 12:12) Nausea HPI cic-pt n/s 1 HPI Details LAST VISIT GERD (gastroesophageal reflux disease) Continue PPI twice a day and famotidine at bedtime. Next visit will consider decreasing the dose of PPI to 20 mg twice a day with Pepcid at bedtime on as needed basis. Discussed with patient avoiding dietary triggers and late night snacking. Staying upright for minimum 3 hours after meals discussed with patient. IBS (irritable bowel syndrome) Continue low FODMAP diet. Eat smaller meals and more often. Continue taking Senokot to help with bowel movements. I will see patient in 6 months, sooner on as needed basis. Patient is agreeable to this plan and verbalizes understanding of instructions. She was given the opportunity to ask questions and all questions answered. ? Thank you for allowing me to participate in her care Plan Medications Changed From pantoprazole 40 mg PO DAILY 90 tabs 4RF K21.9 - Gastro-esophageal reflux disease without esophagitis To pantoprazole 40 mg PO BID 180 tabs 2RF K21.9 - Gastro-esophageal reflux disease without esophagitis TODAY'S VISIT: Patient is here today for follow-up. Patient reports that she has been feeling better. Takes pantoprazole twice a day in her symptoms of acid reflux are suppressed. Patient continues to get UTI and about once a month she needs IV antibiotics. Port-A-Cath was placed in her right upper chest. Patient reports that when she has UTI she will have nausea. Script for Zofran was given by her oncologist. Patient reports that for the most part she is moving her bowels and occasionally needs to use MiraLax. Patient denies dyspepsia, dysphagia or odynophagia. Denies melena, hematochezia, unintentional weight loss or ribbon like stools. Patient did noted that depending on what she eats she will feel bloated. Patient states that if she eats larger meals she also will have abdominal bloating. Patient states that she tries to eat smaller meals and more often. [facility] Medical History Osteoarthritis Morbid obesity Allergy to multiple antibiotics Depression Arthritis of left hip Wears dentures Neurogenic urinary bladder disorder History of blood transfusion History of CVA (cerebrovascular accident) Seasonal allergies History of numbness PONV (postoperative nausea and vomiting) Self-catheterizes urinary bladder Diabetes with neurologic complications Type 2 diabetes mellitus with unspecified complications Anemia CLL (chronic lymphocytic leukemia) Sleep apnea Diabetes mellitus CLL (chronic lymphocytic leukemia) Arthritis Fibromyalgia Hypercholesterolemia Hypertension History of bilateral breast cancer Urinary retention with incomplete bladder emptying Surgical History History of total left hip replacement S/P Botox injection History of suprapubic catheter S/P left breast biopsy History of esophagogastroduodenoscopy (EGD) Hx of colonoscopy History of bladder repair surgery History of total hysterectomy S/P breast biopsy, right History of back surgery History of biopsy of bladder Family History Mother Breast cancer Father Heart disease Father Lung cancer Mother Colon cancer Brother Pancreatic cancer Social History Household Members: Spouse Housing: House Are you a primary post anesthesia care unit nurse to a significant other at home: No Do you presently have visiting nurse or other home services: Yes Alcohol intake: never Comment: patient refused telesiter,removed per pt request Patient Tobacco Use Status: Never used Tobacco Advance Directives Date on File: 07/30/23 service: No Current occupational status: retired Female Reproductive History Menstrual Age of Menarche: 15 Review of Systems Const Denies weight gain and Denies weight loss ENT Reports no additional complaints, Denies dysphagia and Denies odynophagia Card Reports no additional complaints Resp Reports no additional complaints GI Denies abdominal pain, Denies belching, Denies melena, Denies bloating, Denies change in bowel habits, Reports constipation (Occasional), Denies dysphagia, Denies excessive flatus, Denies dyspepsia, Denies heartburn, Denies diarrhea, Denies loose stools, Reports nausea (Occasional), Denies odynophagia and Denies vomiting Reports no additional complaints Musc Reports no additional complaints Neuro Reports no additional complaints Psych Reports no additional complaints Endo Reports no additional complaints Physical Exam Vital Signs: BMI result Body Mass Index 34.2 Const General: healthy appearing, no acute distress and well developed Nutritional Appearance: well nourished Orientation/consciousness: patient oriented x3 Resp Effort & Inspection: normal respiratory effort, able to speak in complete sentences, no tracheal deviation and symmetric chest movement Auscultation: clear to auscultation bilaterally Cardio Rate: regular rate GI Inspection: Yes normal to inspection and No distended Palpation (GI): Soft to palpation, not firm, nontender and No hepatosplenomegaly present Auscultation: normal bowel sounds General: Yes no CVA tenderness Back/Spine/Pelvis Back: no CVA tenderness Skin General skin exam: elasticity normal, turgor normal and dry skin Neuro General: patient oriented x3 Psych Appearance: grossly normal Mental Status: mental status grossly normal Assessment & Plan Assessment & Plan (1) GERD (gastroesophageal reflux disease): Code(s): K21.9 - Gastro-esophageal reflux disease without esophagitis Qualifiers: Esophagitis presence: esophagitis presence not specified Qualified Code(s): K21.9 - Gastro-esophageal reflux disease without esophagitis (2) IBS (irritable bowel syndrome): Code(s): K58.9 - Irritable bowel syndrome without diarrhea Qualifiers: Irritable bowel syndrome type: without diarrhea Qualified Code(s): K58.9 - Irritable bowel syndrome without diarrhea (3) Nausea: Code(s): R11.0 - Nausea (4) Screen for colon cancer: Code(s): Z12.11 - Encounter for screening for malignant neoplasm of colon Plan Continue pantoprazole twice a day. Continue avoiding dietary triggers and late night snacking. Staying upright for minimum 3 hours after meals discussed with patient. Patient can take probiotic as well. Patient has frequent UTIs and is on antibiotics. Patient can continue taking MiraLax on as needed basis. Advised the patient can take it daily. She will return in 4-5 months we can discuss going for colonoscopy. Patient has appointment with her cathode washer in the beginning of May, we will ask for risk stratification. Patient is agreeable to this plan and verbalizes understanding of instructions. She was given the opportunity to ask questions and all questions answered Thank you for allowing me to participate in her care Coding Level of Care Code Est Pt Level 3 (30363) Diagnoses Gastroesophageal reflux disease, unspecified whether esophagitis present K21.9 Esophagitis presence: esophagitis presence not specified Irritable bowel syndrome without diarrhea K58.9 Irritable bowel syndrome type: without diarrhea Nausea R11.0 Screen for colon cancer Z12.11 Time Spent (min) 25 Comment 15 minutes spent with patient and additional 10 minutes spent reviewing her records
== END 2023-11-18 12:38 | disposition home or self-care (01) ==
PROVIDERS: PCP Family Medicine; Visit Provider Nurse Practitioner Family
DX: K21.9 Gastro-esophageal reflux disease without esophagitis (principal); K58.9 Irritable bowel syndrome, unspecified; R11.0 Nausea; Z12.11 Encounter for screening for malignant neoplasm of colon
CPT/HCPCS: 99213

== ENCOUNTER 2023-11-18 13:27 | Outpatient (REF) | payer MEDICARE, OTHER, SELFPAY ==
[2023-11-18 13:29] VITALS: BP 158/55; PULSE 58; RESP 16; TEMP 37.1; O2SAT 97
[2023-11-18] MEDS: Ertapenem Sodium 1 GM in 0.9 % Sodium Chloride 50 ML IV (14:05)
[2023-11-18] MEDS: Heparin Sodium,Porcine Flush 50 UNITS, 0.9 % Sodium Chloride Flush 5 ML IVFLUSH (14:44)
--- NOTE | 2023-11-18 14:59 | PC.NURSE ---
pt will keep port accessed for future appointments. heparin flushed. r chest port dressed with halo guard.
== END 2023-11-18 13:28 | disposition home or self-care (01) ==
LOC: HO.MDS 13:27
PROVIDERS: Visit Provider Urology
DX: N39.0 Urinary tract infection, site not specified (principal)
CPT/HCPCS: 96365; 99212; J1335; J1642

== ENCOUNTER 2023-11-19 11:58 | Outpatient (REF) | payer MEDICARE, OTHER, SELFPAY ==
[2023-11-19 11:58] VITALS: BP 138/48; PULSE 57; RESP 16; TEMP 37.1; O2SAT 96
[2023-11-19] MEDS: Ertapenem Sodium 1 GM in 0.9 % Sodium Chloride 50 ML IV (12:11)
[2023-11-19] MEDS: Heparin Sodium,Porcine Flush 50 UNITS, 0.9 % Sodium Chloride Flush 5 ML IVFLUSH (12:44)
== END 2023-11-19 11:59 | disposition home or self-care (01) ==
LOC: HO.MDS 11:58
PROVIDERS: PCP Family Medicine; Visit Provider Urology
DX: N39.0 Urinary tract infection, site not specified (principal); N31.9 Neuromuscular dysfunction of bladder, unspecified
CPT/HCPCS: 51705; 96365; J1335; J1642

== ENCOUNTER 2023-11-20 08:39 | Outpatient (REF) | payer MEDICARE, OTHER, SELFPAY ==
[2023-11-20 08:43] VITALS: BP 164/49; PULSE 65; RESP 100; TEMP 36.8; O2SAT 100
[2023-11-20] MEDS: Ertapenem Sodium 1 GM in 0.9 % Sodium Chloride 50 ML IV (08:56)
[2023-11-20] MEDS: Heparin Sodium,Porcine Flush 50 UNITS, 0.9 % Sodium Chloride Flush 5 ML IVFLUSH (09:25)
== END 2023-11-20 08:40 | disposition home or self-care (01) ==
LOC: HO.MDS 08:39
PROVIDERS: Visit Provider Urology
DX: N39.0 Urinary tract infection, site not specified (principal)
CPT/HCPCS: 96365; J1335; J1642

== ENCOUNTER 2023-11-21 11:26 | Outpatient (REF) | payer MEDICARE, OTHER, SELFPAY ==
[2023-11-21 11:27] VITALS: BP 156/51; PULSE 56; RESP 16; TEMP 36.4; O2SAT 97
[2023-11-21] MEDS: Ertapenem Sodium 1 GM in 0.9 % Sodium Chloride 50 ML IV (11:49)
[2023-11-21] MEDS: Heparin Sodium,Porcine Flush 50 UNITS, 0.9 % Sodium Chloride Flush 5 ML IVFLUSH (12:26)
== END 2023-11-21 11:27 | disposition home or self-care (01) ==
LOC: HO.MDS 11:26
PROVIDERS: Visit Provider Urology
DX: N39.0 Urinary tract infection, site not specified (principal)
CPT/HCPCS: 96365; J1335; J1642

== ENCOUNTER 2023-11-22 11:39 | Outpatient (REF) | payer MEDICARE, OTHER, SELFPAY ==
[2023-11-22 11:41] VITALS: BP 149/46; PULSE 57; RESP 16; TEMP 36.6; O2SAT 96
[2023-11-22] MEDS: Ertapenem Sodium 1 GM in 0.9 % Sodium Chloride 50 ML IV (11:52)
[2023-11-22] MEDS: Heparin Sodium,Porcine Flush 50 UNITS, 0.9 % Sodium Chloride Flush 5 ML IVFLUSH (12:25)
== END 2023-11-22 11:40 | disposition home or self-care (01) ==
LOC: HO.MDS 11:39
PROVIDERS: Visit Provider Urology
DX: N39.0 Urinary tract infection, site not specified (principal)
CPT/HCPCS: 96365; J1335; J1642

== ENCOUNTER 2023-11-23 07:48 | Outpatient (REF) | payer MEDICARE, OTHER, SELFPAY ==
[2023-11-23 08:05] LABS: MANUAL DIFF FLAG NO
[2023-11-23 08:35] LABS: Basophils Absolute Auto 0.1 X10*3/uL (0.0-0.2); Basophils Percent Auto 0.8 % (0-2); Eosinophils Absolute Auto 0.2 X10*3/uL (0.0-0.4); Eosinophils Percent Auto 1.8 % (0-4); Hemoglobin 12.4 g/dl (12.0-16.0); Imm Gran Abs Auto 0.29 X10*3/uL (0.00-0.03); Imm Gran Pct Auto 2.5 % (0.0-0.4); Lymphocytes Absolute Auto 2.8 X10*3/uL (1.2-4.9); Lymphocytes Percent Auto 23.8 % (20-40); Mean Corpuscular HGB Conc 32.6 g/dl (31.0-35.0); Mean Corpuscular Hemoglobin 29.2 pg (27.0-33.0); Mean Corpuscular Volume 89.6 fL (80.0-98.0); Mean Platelet Volume 11.5 fL (9.4-12.3); Monocytes Absolute Auto 0.8 X10*3/uL (0.1-1.2); Monocytes Percent Auto 6.6 % (2-11); Neutrophils Absolute Auto 7.5 x10*3/uL (2.0-8.3); Neutrophils Percent Auto 64.5 % (45-73); Platelet Count 171 X10*3/uL (160-400); Red Blood Count 4.24 X10*6/uL (4.20-5.50); Red Cell Distribution Width 15.5 % (11.0-16.0); White Blood Count 11.6 X10*3/uL (4.8-10.8)
[2023-11-23 08:48] LABS: Estimated Average Glucose 126 mg/dL
[2023-11-23 08:54] LABS: Alanine Aminotransferase 13 U/L (0-31); Aspartate Amino Transferase 19 U/L (5-31); Glucose Fasting 138 mg/dL (60-99)
== END 2023-11-23 07:49 | disposition home or self-care (01) ==
LOC: HO.LAB 07:48
PROVIDERS: PCP Family Medicine; Visit Provider Family Medicine
DX: Z13.89 Encounter for screening for other disorder (principal)
CPT/HCPCS: 36415; 82550; 82947; 83036; 84450; 84460; 85025

== ENCOUNTER 2023-11-23 08:10 | Outpatient (REF) | payer MEDICARE, OTHER, SELFPAY ==
[2023-11-23] MEDS: Ertapenem Sodium 1 GM in 0.9 % Sodium Chloride 50 ML IV (08:35)
[2023-11-23 08:36] VITALS: BP 144/51; PULSE 58; RESP 18; TEMP 36.1; O2SAT 93; BMI 34.3
[2023-11-23] MEDS: Heparin Sodium,Porcine Flush 50 UNITS/5 ML SYRINGE IVFLUSH (09:08)
== END 2023-11-23 08:11 | disposition home or self-care (01) ==
LOC: HO.MDS 08:10
PROVIDERS: PCP Family Medicine; Visit Provider Urology
DX: N39.0 Urinary tract infection, site not specified (principal); E11.9 Type 2 diabetes mellitus without complications; E78.00 Pure hypercholesterolemia, unspecified; C91.10 Chronic lymphocytic leukemia of B-cell type not having achieved remission; Z79.899 Other long term (current) drug therapy
CPT/HCPCS: 36415; 82550; 82947; 83036; 84450; 84460; 85025; 96365; J1335; J1642

== ENCOUNTER 2023-11-24 07:52 | Outpatient (REF) | payer MEDICARE, OTHER, SELFPAY ==
[2023-11-24 07:53] VITALS: BMI 34.3
[2023-11-24 08:00] VITALS: BP 155/47; PULSE 61; RESP 16; TEMP 36.8; O2SAT 95
[2023-11-24] MEDS: Ertapenem Sodium 1 GM in 0.9 % Sodium Chloride 50 ML IV (08:03)
[2023-11-24 08:38] VITALS: BP 148/55; PULSE 65; RESP 16; TEMP 36.5; O2SAT 92
== END 2023-11-24 07:53 | disposition home or self-care (01) ==
LOC: HO.MDS 07:52
PROVIDERS: Visit Provider Urology
DX: N39.0 Urinary tract infection, site not specified (principal)
CPT/HCPCS: 96374; J1335

== ENCOUNTER 2023-11-25 10:17 | Outpatient (REF) | payer MEDICARE, OTHER, SELFPAY ==
[2023-11-25 10:19] VITALS: BP 146/48; PULSE 60; RESP 16; TEMP 36.4; O2SAT 98
[2023-11-25] MEDS: Ertapenem Sodium 1 GM in 0.9 % Sodium Chloride 50 ML IV (10:28)
[2023-11-25] MEDS: Heparin Sodium,Porcine Flush 50 UNITS, 0.9 % Sodium Chloride Flush 5 ML IVFLUSH (11:03)
== END 2023-11-25 10:18 | disposition home or self-care (01) ==
LOC: HO.MDS 10:17
PROVIDERS: Visit Provider Urology
DX: N39.0 Urinary tract infection, site not specified (principal)
CPT/HCPCS: 96365; J1335; J1642

== ENCOUNTER 2023-11-26 10:50 | Outpatient (REF) | payer MEDICARE, OTHER, SELFPAY ==
[2023-11-26 10:53] VITALS: BP 144/51; PULSE 52; RESP 16; TEMP 36.5; O2SAT 96
[2023-11-26] MEDS: Ertapenem Sodium 1 GM in 0.9 % Sodium Chloride 50 ML IV (11:03)
[2023-11-26] MEDS: Heparin Sodium,Porcine Flush 50 UNITS, 0.9 % Sodium Chloride Flush 5 ML IVFLUSH (11:36)
== END 2023-11-26 10:51 | disposition home or self-care (01) ==
LOC: HO.MDS 10:50
PROVIDERS: Visit Provider Urology
DX: N39.0 Urinary tract infection, site not specified (principal)
CPT/HCPCS: 96365; J1335; J1642

== ENCOUNTER 2023-11-27 12:48 | Outpatient (REF) | payer MEDICARE, OTHER, SELFPAY ==
[2023-11-27 12:49] VITALS: BP 124/48; PULSE 54; RESP 18; TEMP 36.4; O2SAT 95
[2023-11-27] MEDS: Ertapenem Sodium 1 GM in 0.9 % Sodium Chloride 50 ML IV (13:13)
== END 2023-11-27 12:49 | disposition home or self-care (01) ==
LOC: HO.MDS 12:48
PROVIDERS: Visit Provider Urology
DX: N39.0 Urinary tract infection, site not specified (principal)
CPT/HCPCS: 96365; J1335; J1642

== ENCOUNTER 2023-11-28 10:04 | Outpatient (REF) | payer MEDICARE, OTHER, SELFPAY ==
[2023-11-28 10:05] VITALS: BP 153/41; PULSE 54; RESP 20; TEMP 36.4; O2SAT 96
[2023-11-28] MEDS: Ertapenem Sodium 1 GM in 0.9 % Sodium Chloride 50 ML IV (10:30)
[2023-11-28] MEDS: Heparin Sodium,Porcine Flush 50 UNITS, 0.9 % Sodium Chloride Flush 5 ML IVFLUSH (10:59)
== END 2023-11-28 10:05 | disposition home or self-care (01) ==
LOC: HO.MDS 10:04
PROVIDERS: Visit Provider Urology
DX: N39.0 Urinary tract infection, site not specified (principal)
CPT/HCPCS: 96365; J1335; J1642

== ENCOUNTER 2023-11-29 09:50 | Outpatient (REF) | payer MEDICARE, OTHER, SELFPAY ==
[2023-11-29 09:56] VITALS: BP 138/43; PULSE 54; RESP 16; TEMP 36.3; O2SAT 98
[2023-11-29] MEDS: Ertapenem Sodium 1 GM in 0.9 % Sodium Chloride 50 ML IV (10:10)
[2023-11-29] MEDS: Heparin Sodium,Porcine Flush 50 UNITS, 0.9 % Sodium Chloride Flush 5 ML IVFLUSH (10:51)
== END 2023-11-29 09:51 | disposition home or self-care (01) ==
LOC: HO.MDS 09:50
PROVIDERS: Visit Provider Urology
DX: N39.0 Urinary tract infection, site not specified (principal)
CPT/HCPCS: 96365; J1335; J1642

== ENCOUNTER 2023-11-30 09:51 | Outpatient (REF) | payer MEDICARE, OTHER, SELFPAY ==
[2023-11-30 10:15] VITALS: BP 139/37; PULSE 52; RESP 18; TEMP 36.2; O2SAT 100; BMI 34.3
[2023-11-30] MEDS: Ertapenem Sodium 1 GM in 0.9 % Sodium Chloride 50 ML IV (10:16)
[2023-11-30] MEDS: Heparin Sodium,Porcine Flush 50 UNITS, 0.9 % Sodium Chloride Flush 5 ML IVFLUSH (10:50)
== END 2023-11-30 09:52 | disposition home or self-care (01) ==
LOC: HO.MDS 09:51
PROVIDERS: PCP Urology; Visit Provider Urology
DX: N39.0 Urinary tract infection, site not specified (principal)
CPT/HCPCS: 96365; J1335; J1642

== ENCOUNTER 2023-12-01 09:44 | Outpatient (REF) | payer MEDICARE, OTHER, SELFPAY ==
[2023-12-01 10:22] VITALS: BP 138/52; PULSE 50; RESP 16; TEMP 36.6; O2SAT 96
[2023-12-01] MEDS: Ertapenem Sodium 1 GM in 0.9 % Sodium Chloride 50 ML IV (10:43)
== END 2023-12-01 09:45 | disposition home or self-care (01) ==
LOC: HO.MDS 09:44
PROVIDERS: Visit Provider Urology
DX: N39.0 Urinary tract infection, site not specified (principal)
CPT/HCPCS: 96374; J1335; J1642

== ENCOUNTER → 2023-12-03 12:34 | Outpatient (REF) | payer MEDICARE, OTHER, SELFPAY ==
--- NOTE | 2023-12-03 12:38 | CA_ITS ---
Transthoracic Echocardiogram Patient (Last, First, Middle): Kaitlin Ortiz, Gender: Female Date of : 1945 Age: 78 Procedure Date: 12/03/2023 Procedure Type: Transthoracic Echocardiogram Location: OP Height: 162.56 cm Weight: 92.53 kg BSA: 1.97 m2 Heart Rate: bpm BP: 134 / 80 mmHg Freight Receiver: Referring MD: Gerardo Agustin MD Symptoms: I25.10 - Atherosclerotic heart disease of [place] coronary artery without... Study Quality: Good ECG Rhythm: Sinus Conclusions: - The left ventricular systolic function is normal. The calculated ejection fraction is 58% by biplane method.(some views, appear low normal 50-55%). - There is moderate septal asymmetric hypertrophy. - Possible basal inferior hypokinesis but difficult to assess as there is adjacent hypertrophy. - There is moderate mitral valve regurgitation. Findings Procedure Information Contrast agent, definity, is being given per protocol without apparent complications. Left Ventricle Normal left ventricular cavity size. The left ventricular systolic function is normal. The calculated ejection fraction is 58% by biplane method. Evidence suggests grade I (mild) diastolic dysfunction. There is moderate septal asymmetric hypertrophy. Possible basal inferior hypokinesis but difficult to assess as there is adjacent hypertrophy. Right Ventricle Mildly increased right ventricular cavity size. Atria The left atrium is moderately dilated. The right atrium is normal in size. Aortic Valve There is a normal trileaflet aortic valve. There is mild calcification of the aortic valve. There is no aortic valve stenosis. There is mild aortic valve regurgitation. Mitral Valve There is mild mitral annular calcification. There is moderate mitral valve regurgitation. There is no mitral valve stenosis. Pulmonic Valve The pulmonic valve is likely normal. Tricuspid Valve Normal tricuspid valve structure. There is trace tricuspid valve regurgitation. Great Vessels The asc aorta is normal in size. Venous The inferior vena cava is normal in size and collapses greater than 50% with inspiration. Pericardium/Pleural There is no evidence of pericardial effusion. Prior Study Comparison Changes noted compared to prior study dated: 10/31/2022. Mitral regurgitation is more prominent. Measurements 2D Linear Measurements IVSd: 1.36 0.6-0.9/0.6-1.0 cm LVIDd: 4.98 3.9-5.3/4.2-5.9 cm LVIDd Index: 2.53 2.4-3.2/2.2-3.1 cm/m2 LVIDs: 3.22 2.0-3.6 cm LVPWd: 1.38 0.7-1.1 cm Ao Root: 3.00 2.1-3.5 cm LA Diam: 4.50 2.7-3.8/3.0-4.0 cm LAIDs Index: 2.28 1.5-2.3 cm/m2 LV Mass: 350.06 67-162/88-224 g LV Mass Index: 177.69 43-95/49-115 g/m2 LVOT Diam: 2.00 3.0+(-)1.3 cm 2D Systolic Function EF 4C: 60.10 >55% EF 2C: 57.30 >55% EF BiP: 57.80 >55% Mitral Valve MV Pk E: 0.84 MV PK A: 1.29 MV Decel Time: 296.00 E/A: 0.60 E'Lateral: 5.33 E'Medial: 5.33 E/E' Med: 15.70 E/E' Lat: 15.70 PHT: 87.00 MVA PHT: 2.53 Decel Breathitt: 2.82 Aortic Valve AoV Pk Rolly: 2.22 AoV Mn Rolly: 1.31 AoV VTI: 0.58 AoV Pk Grad: 20.00 Aov Mn Grad: 9.00 INGRID Cont.VTI: 1.13 LVOT LVOT Pk Rolly: 0.76 LVOT Mn Rolly: 0.46 LVOT VTI: 0.21 LVOT Pk Grad: 2.00 LVOT Mn Grad: 1.00 LVOT Diam: 2.00 LVOT Area: 3.14 Diastolic Function MV Pk E: 0.84 MV Pk A: 1.29 E/A: 0.60 E'Medial: 5.33 E/E' Med: 15.70 E' Laterial: 5.33 E/E' Lat: 15.70 Right Ventricle TAPSE (mm): 34.00 Tricuspid Valve TR Pk Rolly: 2.97 TR Pk Grad: 35.00 RA Press: 3.00 RVSP: 38.00 Great Vessels Aorta Ao Root-2D: 3.00 2.0-3.7 cm Ao Asc: 3.40 2.1-3.4 cm Pulmonary Valve PV Pk Rolly: 0.94 Peak PV Grad: 4.00 Updated in Other Vendor System with Status of Final Gerardo Agustin MD electronically signed on 12/04/2023 12:05:32 PM with status of Final
== END ==
LOC: HO.CARD 12:34
PROVIDERS: PCP Family Medicine; Visit Provider Internal Medicine
DX: I25.10 Atherosclerotic heart disease of native coronary artery without angina pectoris (principal)
CPT/HCPCS: 93306; Q9957

== ENCOUNTER → 2023-12-03 12:38 | Outpatient (BNV) | payer MEDICARE, OTHER, SELFPAY | PROVIDERS: PCP Family Medicine; Visit Provider Internal Medicine | DX: I34.0 Nonrheumatic mitral (valve) insufficiency (principal) | CPT/HCPCS: 93306 ==

== ENCOUNTER → 2023-12-10 10:02 | Outpatient (BNVA) | payer MEDICARE, OTHER, SELFPAY | PROVIDERS: PCP Family Medicine; Visit Provider Urology | DX: N31.9 Neuromuscular dysfunction of bladder, unspecified (principal) | CPT/HCPCS: 51705 ==

== ENCOUNTER → 2023-12-11 09:34 | Outpatient (REF) | payer MEDICARE, OTHER, SELFPAY ==
--- NOTE | ~2023-12-11 | NM_ITS ---
Lexiscan Myocardial perfusion study Indication: Chest pain, assess for coronary ,ischemia Technique: The patient was brought in for a Lexiscan perfusion study on 12/11/2023 and was injected 0.4 mg of Lexiscan intravenously. Within a minute of this injection 30 mCi of sestamibi was given intravenously. Images were obtained using the SPECT gamma camera interlaced with the gating device. Images were obtained in supine position. Resting perfusion study was performed on 12/12/2023. Patient was administered 30 mCi of sestamibi intravenously at rest. Images were then obtained in supine position. Images were processed with the software and compared side to side in short axis, horizontal long axis and vertical long axis views. Total DLP 143mGy-cm. Findings: Raw acquisition reviewed. Arms by the patient's side. The stress perfusion study showed diminished tracer uptake along the inferior wall. Also involves inferolateral wall. No major change with CT attenuation correction. The gated study shows diminished LV systolic function with calculated LVEF of 51%. LV cavity is normal in size. The gated study shows diminished wall thickening and contractility in the inferior/inferolateral segments. Resting study shows diminished tracer uptake along the inferior wall but with some improvement compared to stress acquisition. Gating at rest reveals LVEF of 54% with inferior/inferolateral hypokinesis. The findings are consistent with inferior/inferolateral perfusion defect with reversible and fixed components. NM/NM cardiolite stress test Impression: 1. Myocardial perfusion imaging study shows ischemia/infarct pattern in large area involving inferior/inferolateral wall. 2. Gated LVEF is 51% during stress and 54% during rest. 3. Transient ischemic dilatation not present. EKG component of the test reported separately.
--- NOTE | 2023-12-11 09:36 | CA_ITS ---
Acquisition Time: 2023-12-11 09:57:53 Total Exercise Time: 00:02:00 Test Indications: PRECORDIAL PAIN,. ASHD Medications: Protocol: LEXISCAN Max HR: 057 BPM 39% of Pred: 143 BPM Max BP: 134/050 mmHG Max Work Load: 1.0 METS Pharmacological stress test with Lexiscan injection while sitting and kicking her legs, without anginal symptoms, with isolated PVC, with normotenisve response to injection, with nondiagnoistic EKGs. Aminophylline 75mg IVP given to reverse Lexiscan. Nuclear images pending. Test reviewed [facility] Dr. Morales abnormalities in ST disappeared in regular 12 lead placement Referred By: Gerardo Agustin Overread By: Ree Mccoy
== END ==
LOC: HO.CARD 09:34
PROVIDERS: PCP Family Medicine; Visit Provider Internal Medicine
DX: R07.2 Precordial pain (principal); I25.119 Atherosclerotic heart disease of native coronary artery with unspecified angina pectoris
CPT/HCPCS: 78452; 93017; A9500; J0280; J2785

== ENCOUNTER → 2023-12-11 09:36 | Outpatient (BNV) | payer MEDICARE, OTHER, SELFPAY | PROVIDERS: PCP Family Medicine; Visit Provider Nurse Practitioner | DX: R07.2 Precordial pain (principal); I49.3 Ventricular premature depolarization | CPT/HCPCS: 78452; 93016; 93018 ==

== ENCOUNTER 2023-12-19 10:18 | Outpatient (REF) | payer MEDICARE, OTHER, SELFPAY ==
--- NOTE | ~2023-12-19 | XR_ITS ---
EXAMINATION: XR PELVIS CLINICAL INFORMATION: Pain in unspecified hip. COMPARISON: 02/29/2024, 02/21/2023 and prior. TECHNIQUE: AP view of the pelvis. FINDINGS: The bones are diffusely demineralized. Degenerative changes in the imaged lower lumbar spine and in the bilateral sacroiliac joints. Pubic symphysis is maintained. Redemonstration of left hip total arthroplasty with 2 acetabular screws. Again, the more medial of the screws appears broken at the base, close to the acetabular component of the prosthesis. Redemonstration of advanced degenerative changes in the right hip with joint space narrowing. Extensive vascular calcifications. XR/XR pelvis 1-2V IMPRESSION: 1. Redemonstration of left hip total arthroplasty with 2 acetabular screws. Again, the more medial of the screws appears broken at the base, close to the acetabular component of the prosthesis. 2. Redemonstration of advanced degenerative changes in the right hip with joint space narrowing.
== END 2023-12-19 10:19 | disposition home or self-care (01) ==
LOC: HO.HOSX 10:18
PROVIDERS: Visit Provider Orthopaedic Surgery
DX: M25.552 Pain in left hip (principal); M47.816 Spondylosis without myelopathy or radiculopathy, lumbar region; T84.031A Mechanical loosening of internal left hip prosthetic joint, initial encounter; Y79.3 Surgical instruments, materials and orthopedic devices (including sutures) associated with adverse incidents; Z47.89 Encounter for other orthopedic aftercare; Z96.642 Presence of left artificial hip joint
CPT/HCPCS: 72170; 99212

== ENCOUNTER 2023-12-19 11:20 | Outpatient (AMB) | payer MEDICARE, OTHER, SELFPAY ==
--- NOTE | 2023-12-19 11:33 | A.OFFVIS_ITS ---
Intake Vital Signs 12/19/23 11:34 Height 5 ft 4 in Weight 200 lb BMI 34.3 Intake Visit Reasons: OV - Left ANGELICA 01/08/23- Discuss Revision Intake Note: Kaitlin is a 77 year old female who presents today for a follow up appointment of her left hip s/p Left ANGELICA 01/08/23.Has radiographic evidence of loosening, recommendation is revision. She presents today to discuss revision process. She reports that she is having significant pain in the hip, increased with sitting and walking. Finds relfif in an reclined position and laying. Allergies amoxicillin [AMOXICILLIN] Allergy (Severe, Verified 11/18/23 12:12) stroke, blood clots ciprofloxacin [From CIPRO] Allergy (Severe, Verified 11/18/23 12:12) ANAPHYLAXIS Iodinated Contrast Media [IV DYE, IODINE CONTAINING CONTRAST ] Allergy (Severe, Verified 11/18/23 12:12) HIVES levofloxacin Allergy (Severe, Verified 11/18/23 12:12) Anaphylaxis liraglutide Allergy (Severe, Verified 11/18/23 12:12) Headache Penicillins Allergy (Severe, Verified 11/18/23 12:12) stroke, blood clots phenazopyridine [Pyridium] Allergy (Severe, Verified 11/18/23 12:12) Anaphylaxis FREYA Inhibitors Allergy (Intermediate, Verified 11/18/23 12:12) Cough ARB-Angiotensin Receptor Antagonist Allergy (Intermediate, Verified 11/18/23 12:12) Cough cefpodoxime Allergy (Intermediate, Verified 11/18/23 12:12) Dizziness, nausea doxazosin Allergy (Intermediate, Verified 11/18/23 12:12) Shortness of Breath fluticasone [Advair Diskus] Allergy (Intermediate, Verified 11/18/23 12:12) Anxiety gabapentin [From Neurontin] Allergy (Intermediate, Verified 11/18/23 12:12) Headache hydralazine Allergy (Intermediate, Verified 11/18/23 12:12) Shortness of Breath latex Allergy (Intermediate, Verified 11/18/23 12:12) Hives linezolid Allergy (Intermediate, Verified 11/18/23 12:12) Nausea and Vomiting meloxicam Allergy (Intermediate, Verified 11/18/23 12:12) Unknown salmeterol [Advair Diskus] Allergy (Intermediate, Verified 11/18/23 12:12) Anxiety Tetanus Vaccines and Toxoid Allergy (Intermediate, Verified 11/18/23 12:12) Swelling torsemide Allergy (Intermediate, Verified 11/18/23 12:12) Shortness of Breath cephalexin [Keflex] Allergy (Mild, Verified 11/18/23 12:12) Nausea HPI OV - Left ANGELICA 01/08/23- Discuss Revision HPI Details Kaitlin is a 77 year old female who presents today for a follow up appointment of her left hip s/p Left ANGELICA 01/08/23.Has radiographic evidence of possible loosening. She reports that she is having significant pain in the hip, increased with sitting and walking. Finds relief in an reclined position and when lying down. When she stands her legs become increasingly numb. She denies urinary incontinence. Most of her pain is over the lateral aspect of the left greater trochanter and ilium. [facility] Medical History Osteoarthritis Morbid obesity Allergy to multiple antibiotics Depression Arthritis of left hip Wears dentures Neurogenic urinary bladder disorder History of blood transfusion History of CVA (cerebrovascular accident) Seasonal allergies History of numbness PONV (postoperative nausea and vomiting) Self-catheterizes urinary bladder Diabetes with neurologic complications Type 2 diabetes mellitus with unspecified complications Anemia CLL (chronic lymphocytic leukemia) Sleep apnea Diabetes mellitus CLL (chronic lymphocytic leukemia) Arthritis Fibromyalgia Hypercholesterolemia Hypertension History of bilateral breast cancer Urinary retention with incomplete bladder emptying Surgical History History of total left hip replacement S/P Botox injection History of suprapubic catheter S/P left breast biopsy History of esophagogastroduodenoscopy (EGD) Hx of colonoscopy History of bladder repair surgery History of total hysterectomy S/P breast biopsy, right History of back surgery History of biopsy of bladder Family History Mother Breast cancer Father Heart disease Father Lung cancer Mother Colon cancer Brother Pancreatic cancer Social History Household Members: Spouse Housing: House Are you a primary acute care physician to a significant other at home: No Do you presently have visiting nurse or other home services: Yes Alcohol intake: never Comment: patient refused telesiter,removed per pt request Patient Tobacco Use Status: Never used Tobacco Advance Directives Date on File: 07/30/23 service: No Current occupational status: retired Female Reproductive History Menstrual Age of Menarche: 15 Physical Exam Vital Signs: BMI result Body Mass Index 34.3 Extrem Other: There is no groin pain with hip range of motion. She has an antalgic gait but her pain is in the posterior iliac crest and descends into the gluteal musculature. Results Reviewed Results Reviewed: I personally reviewed relevant radiographs. Radiographs are unchanged from prior. There is a broken acetabular screw. Assessment & Plan Assessment & Plan (1) Status post total hip replacement, left: Code(s): Z96.642 - Presence of left artificial hip joint Plan: This is a 78-year-old with known lumbar disc disease and spondyloarthropathy who underwent a left hip replacement approximately 1 year ago. She was doing okay until a fall when she had worsening pain. Radiographs did reveal a broken acetabular screw and I was concerned for loosening. Labs ruled out infection at that time and, given her significant medical comorbidities, we elected to watch and wait. She returns today continuing to have difficulty walking although her symptoms seem more attributable to her pre-existing spine condition. She describes numbness and burning in the legs and denies groin pain. Her radiographs are unchanged from prior and I would recommend a lumbar spine MRI to assess. In addition she is having ongoing cardiac issues and may require cardiac stenting in the next month. This is further reason why surgery is contraindicated this time. I discussed this with her. I will see her back approximately 3 months after her cardiac procedure. (2) Lumbar spondylosis: Code(s): M47.816 - Spondylosis without myelopathy or radiculopathy, lumbar region Plan: MRI Orders: Orders XR pelvis 1-2V Today M25.559 - Pain in unspecified hip MR lumbar spine wo con Today M48.061 - Spinal stenosis, lumbar region without neurogenic claudication, M54.16 - Radiculopathy, lumbar region Coding Level of Care Code Est Pt Level 4 (34818) Diagnoses Status post total hip replacement, left Z96.642 Lumbar spondylosis M47.816
[2023-12-19 11:34] VITALS: BMI 34.3
== END 2023-12-19 13:15 | disposition home or self-care (01) ==
PROVIDERS: PCP Family Medicine; Visit Provider Orthopaedic Surgery
DX: Z47.89 Encounter for other orthopedic aftercare (principal); Z96.642 Presence of left artificial hip joint; M47.816 Spondylosis without myelopathy or radiculopathy, lumbar region
CPT/HCPCS: 99213; 99214

== ENCOUNTER 2023-12-27 10:13 | Outpatient (REF) | payer MEDICARE, OTHER, SELFPAY | END 2023-12-27 10:14 | disposition home or self-care (01) | LOC: HO.LNP 10:13 | PROVIDERS: Visit Provider Urology | DX: R82.90 Unspecified abnormal findings in urine (principal) | CPT/HCPCS: 87086; 87088; 87186 ==

== ENCOUNTER → 2023-12-31 13:57 | Outpatient (BNVA) | payer MEDICARE, OTHER, SELFPAY | PROVIDERS: PCP Family Medicine; Visit Provider Urology | DX: N31.9 Neuromuscular dysfunction of bladder, unspecified (principal) | CPT/HCPCS: 51705 ==

== ENCOUNTER 2024-01-05 09:59 | Outpatient (REF) | payer MEDICARE, OTHER, SELFPAY ==
--- NOTE | ~2024-01-05 | MR_ITS ---
EXAMINATION: MR LUMBAR SPINE WITHOUT CONTRAST CLINICAL INFORMATION: Radiculopathy. Lumbar region. Self-reported left lower extremity weakness, numbness and pain. COMPARISON: CT abdomen pelvis 01/10/2023, CT abdomen pelvis 10/09/2019. TECHNIQUE: MRI of the lumbar spine was obtained using routine sequences without contrast. FINDINGS: 5 lumbar type vertebral bodies are identified. Convex leftward scoliosis of the lumbar spine is centered at the level of L1-L2 similar degree to findings present 01/10/2023. No vertebral body compression deformities are visualized. 10 mm T2 hyperintensity is present along the dorsal margin of the L2 vertebral body and corresponds in size and location to a lucency in this region present on the 01/10/2023 examination, and 10/09/2019 examination, suggesting this finding is overwhelmingly likely to be benign. L3-L4-L5 bilateral posterior element bridging arthrodesis is noted. L3-L4-L5 interbody osseous bridging is noted. The conus medullaris terminates at the level of L1-L2. The conus medullaris and cauda equina are normal in appearance. T11-T12: Moderate central stenosis and moderate right foraminal stenosis without definitive direct nerve root or spinal cord impingement. T12-L1: Moderate central stenosis and moderate right foraminal stenosis without associated definitive spinal cord or nerve root impingement. L1-L2: Moderate central stenosis secondary to a moderate posterior broad-based disc bulge partially effacing the ventral thecal sac CSF space. Findings are present in combination with moderate bilateral facet and ligamentum flavum hypertrophy. L2-L3: Marked central stenosis. Mild bilateral foraminal stenoses. Central stenosis arises secondary to a marked posterior broad-based disc bulge in combination with marked bilateral ligamentum flavum hypertrophy and results in complete effacement of the adjacent thecal sac CSF space. Intervertebral disc demonstrates approximately 50% overall loss of craniocaudal height. L3-L4: Mild central stenosis secondary to a mild posterior broad-based disc-osteophyte complex. The intervertebral disc exhibits 75% overall loss of craniocaudal height. Mild bilateral foraminal stenoses are noted without associated direct nerve root impingements. L4-L5: Moderate left foraminal stenosis and mild central stenosis secondary to asymmetric leftward 5 mm anterolisthesis in association with a mild posterior broad-based disc bulge. No direct nerve root impingement identified. The intervertebral disc exhibits 75% loss of craniocaudal height. L5-S1: Mild central and mild bilateral foraminal stenoses secondary to a mild posterior broad-based disc bulge and 2 mm degenerative anterolisthesis. The intervertebral disc exhibits 75% loss of craniocaudal height. MR/MR lumbar spine wo con IMPRESSION: 1. Status post L3-L4-L5 bilateral posterior element fusion with bridging arthrodesis. 2. L2-L3 marked central stenosis secondary to a marked posterior broad-based disc bulge and marked bilateral ligamentum flavum hypertrophy. Elsewhere in the lumbar spine, multilevel chronic spondylosis is present without associated marked central or foraminal stenoses or direct nerve root impingements.
== END 2024-01-05 10:00 | disposition home or self-care (01) ==
LOC: HO.MRI 09:59
PROVIDERS: PCP Family Medicine; Visit Provider Orthopaedic Surgery
DX: M54.16 Radiculopathy, lumbar region (principal); M48.061 Spinal stenosis, lumbar region without neurogenic claudication
CPT/HCPCS: 72148

== ENCOUNTER 2024-01-16 10:00 | Outpatient (RCR) | payer MEDICARE, OTHER, SELFPAY ==
[2024-01-03 07:44] VITALS: BP 130/50; PULSE 53; RESP 20; TEMP 36.4; O2SAT 98
[2024-01-03] MEDS: 0.9 % Sodium Chloride Flush 10 ML SYRINGE 5 ML IVFLUSH ×2 (08:05→08:46)
[2024-01-03] MEDS: Ertapenem Sodium 1 GM in 0.9 % Sodium Chloride 50 ML IV (08:05)
[2024-01-03] MEDS: Heparin Sodium,Porcine Flush 50 UNITS/5 ML SYRINGE IVFLUSH (08:47)
--- NOTE | 2024-01-04 10:25 | PC.NURSE ---
Pharmacy contacted about order stating 14 bags. Spoke to Layne in pharmacy who clarified the order is one bag per day for 14 days. Cleared to give antibiotic to patient at this time.
[2024-01-04 10:30] VITALS: BP 150/40; PULSE 52; RESP 16; TEMP 36.1; O2SAT 96
[2024-01-04] MEDS: 0.9 % Sodium Chloride Flush 10 ML SYRINGE 5 ML IVFLUSH ×2 (10:30→11:04)
[2024-01-04] MEDS: Ertapenem Sodium 1 GM in 0.9 % Sodium Chloride 50 ML IV (10:37)
[2024-01-04] MEDS: Heparin Sodium,Porcine Flush 50 UNITS/5 ML SYRINGE IVFLUSH (11:05)
[2024-01-05 10:00] VITALS: BP 136/43; PULSE 50; RESP 18; TEMP 36.6; O2SAT 98
[2024-01-05] MEDS: 0.9 % Sodium Chloride Flush 10 ML SYRINGE 5 ML IVFLUSH (10:37)
[2024-01-05] MEDS: Heparin Sodium,Porcine Flush 50 UNITS/5 ML SYRINGE IVFLUSH (10:37)
[2024-01-06 10:47] VITALS: BP 152/56; PULSE 56; RESP 20; TEMP 36.8; O2SAT 97
[2024-01-06] MEDS: Ertapenem Sodium 1 GM in 0.9 % Sodium Chloride 50 ML IV (11:21)
[2024-01-06] MEDS: Heparin Sodium,Porcine Flush 50 UNITS/5 ML SYRINGE IVFLUSH (11:53)
[2024-01-07 09:54] VITALS: BP 158/56; PULSE 57; RESP 16; TEMP 37; O2SAT 97
[2024-01-07] MEDS: Ertapenem Sodium 1 GM in 0.9 % Sodium Chloride 50 ML IV (10:12)
[2024-01-07] MEDS: 0.9 % Sodium Chloride Flush 10 ML SYRINGE 5 ML IVFLUSH (10:51)
[2024-01-07] MEDS: Heparin Sodium,Porcine Flush 50 UNITS/5 ML SYRINGE IVFLUSH (10:53)
[2024-01-08 10:30] VITALS: BP 159/40; PULSE 57; RESP 20; TEMP 36.9; O2SAT 97
[2024-01-08] MEDS: Ertapenem Sodium 1 GM in 0.9 % Sodium Chloride 50 ML IV (10:44)
[2024-01-08] MEDS: Heparin Sodium,Porcine Flush 50 UNITS/5 ML SYRINGE IVFLUSH (11:18)
[2024-01-09 10:02] VITALS: BP 144/53; PULSE 55; RESP 16; TEMP 36.9; O2SAT 97
[2024-01-09] MEDS: 0.9 % Sodium Chloride Flush 10 ML SYRINGE 5 ML IVFLUSH (10:20)
[2024-01-09] MEDS: Ertapenem Sodium 1 GM in 0.9 % Sodium Chloride 50 ML IV (10:25)
[2024-01-09] MEDS: Heparin Sodium,Porcine Flush 50 UNITS/5 ML SYRINGE IVFLUSH (11:00)
[2024-01-10 10:55] VITALS: BP 141/56; PULSE 55; RESP 18; TEMP 37.1; O2SAT 98
[2024-01-10] MEDS: Ertapenem Sodium 1 GM in 0.9 % Sodium Chloride 50 ML IV (11:12)
[2024-01-10] MEDS: Heparin Sodium,Porcine Flush 50 UNITS/5 ML SYRINGE IVFLUSH (11:52)
[2024-01-11] MEDS: 0.9 % Sodium Chloride Flush 10 ML SYRINGE 5 ML IVFLUSH (10:16)
[2024-01-11] MEDS: Ertapenem Sodium 1 GM in 0.9 % Sodium Chloride 50 ML IV (10:20)
[2024-01-11 10:29] VITALS: BP 141/73; PULSE 56; RESP 18; TEMP 36.2; O2SAT 96; BMI 34.3
[2024-01-11] MEDS: Heparin Sodium,Porcine Flush 500 UNIT/5 ML SYRINGE IVFLUSH (10:53)
[2024-01-12 10:00] VITALS: BP 118/46; PULSE 51; RESP 18; TEMP 36.3; O2SAT 98
[2024-01-12] MEDS: 0.9 % Sodium Chloride Flush 10 ML SYRINGE 5 ML IVFLUSH (10:12)
[2024-01-12] MEDS: Ertapenem Sodium 1 GM in 0.9 % Sodium Chloride 50 ML IV (10:14)
[2024-01-12] MEDS: Heparin Sodium,Porcine Flush 50 UNITS/5 ML SYRINGE IVFLUSH (10:44)
[2024-01-13 09:56] VITALS: BP 125/77; PULSE 51; RESP 16; TEMP 36.1; O2SAT 97
[2024-01-13] MEDS: Ertapenem Sodium 1 GM in 0.9 % Sodium Chloride 50 ML IV (10:12)
[2024-01-13] MEDS: Heparin Sodium,Porcine Flush 50 UNITS/5 ML SYRINGE IVFLUSH (10:51)
[2024-01-13] MEDS: 0.9 % Sodium Chloride Flush 10 ML SYRINGE 5 ML IVFLUSH (10:52)
[2024-01-14 11:15] VITALS: BP 134/52; PULSE 57; RESP 18; TEMP 36.8; O2SAT 98
[2024-01-14] MEDS: 0.9 % Sodium Chloride Flush 10 ML SYRINGE 5 ML IVFLUSH (11:15)
[2024-01-14] MEDS: Ertapenem Sodium 1 GM in 0.9 % Sodium Chloride 50 ML IV (11:15)
[2024-01-14] MEDS: Heparin Sodium,Porcine Flush 50 UNITS/5 ML SYRINGE IVFLUSH (11:50)
[2024-01-15 09:55] VITALS: BP 145/46; PULSE 58; RESP 20; TEMP 36.6; O2SAT 96
[2024-01-15] MEDS: Ertapenem Sodium 1 GM in 0.9 % Sodium Chloride 50 ML IV (10:13)
[2024-01-15] MEDS: 0.9 % Sodium Chloride Flush 10 ML SYRINGE 5 ML IVFLUSH (10:14)
[2024-01-15] MEDS: Heparin Sodium,Porcine Flush 50 UNITS/5 ML SYRINGE IVFLUSH (10:45)
[2024-01-16 10:02] VITALS: BP 137/44; PULSE 54; RESP 20; TEMP 36.9; O2SAT 98
[2024-01-16] MEDS: Ertapenem Sodium 1 GM in 0.9 % Sodium Chloride 50 ML IV (10:15)
[2024-01-16] MEDS: Heparin Sodium,Porcine Flush 500 UNIT/5 ML SYRINGE IVFLUSH (10:46)
== END 2024-01-16 10:52 | disposition home or self-care (01) ==
LOC: HO.INF 10:00
PROVIDERS: Visit Provider Urology
DX: N39.0 Urinary tract infection, site not specified (principal)
CPT/HCPCS: 96365; 96374; J1335; J1642

== ENCOUNTER 2024-01-17 15:23 | Outpatient (REF) | payer MEDICARE, OTHER, SELFPAY ==
[2024-01-17 15:32] LABS: MANUAL DIFF FLAG NO
[2024-01-17 18:31] LABS: Basophils Absolute Auto 0.1 X10*3/uL (0.0-0.2); Basophils Percent Auto 0.8 % (0-2); Eosinophils Absolute Auto 0.1 X10*3/uL (0.0-0.4); Eosinophils Percent Auto 1.7 % (0-4); Hematocrit 36.9 % (37.0-47.0); Hemoglobin 11.7 g/dl (12.0-16.0); Imm Gran Abs Auto 0.17 X10*3/uL (0.00-0.03); Imm Gran Pct Auto 2.2 % (0.0-0.4); Lymphocytes Absolute Auto 2.9 X10*3/uL (1.2-4.9); Lymphocytes Percent Auto 36.3 % (20-40); Mean Corpuscular HGB Conc 31.7 g/dl (31.0-35.0); Mean Corpuscular Hemoglobin 29.6 pg (27.0-33.0); Mean Corpuscular Volume 93.4 fL (80.0-98.0); Mean Platelet Volume 12.4 fL (9.4-12.3); Monocytes Absolute Auto 0.7 X10*3/uL (0.1-1.2); Monocytes Percent Auto 8.4 % (2-11); Neutrophils Percent Auto 50.6 % (45-73); Platelet Count 142 X10*3/uL (160-400); Red Blood Count 3.95 X10*6/uL (4.20-5.50); White Blood Count 7.9 X10*3/uL (4.8-10.8)
[2024-01-17 19:08] LABS: Alanine Aminotransferase 12 U/L (0-31); Albumin Level 3.9 g/dL (3.5-5.0); Alkaline Phosphatase 68 U/L (39-117); Anion Gap 18 (12-20); Aspartate Amino Transferase 17 U/L (5-31); Bilirubin Total 0.6 mg/dL (0.0-1.0); Blood Urea Nitrogen 23 mg/dL (9-16); Calcium 9.8 mg/dL (8.4-10.2); Carbon Dioxide 24 mmol/L (22-29); Chloride 104 mmol/L (96-108); Estimated Glomerular Filt Rate 47; Glucose Random 102 mg/dL (60-115); Lactate Dehydrogenase 178 U/L (122-220); Potassium 4.4 mmol/L (3.3-5.1); Sodium 142 mmol/L (135-145); Total Protein 6.4 g/dL (6.5-8.0)
[2024-01-21 09:38] LABS: CA 27.29 26 U/mL (<38)
== END 2024-01-17 15:24 | disposition home or self-care (01) ==
LOC: HO.LAB 15:23
PROVIDERS: Internal Medicine Medical Oncology; PCP Family Medicine; Visit Provider Internal Medicine
DX: C50.919 Malignant neoplasm of unspecified site of unspecified female breast (principal)
CPT/HCPCS: 36415; 80053; 83615; 85025; 86300

== ENCOUNTER → 2024-01-21 23:59 | Outpatient (BNV) | payer MEDICARE, OTHER, SELFPAY | PROVIDERS: PCP Family Medicine; Visit Provider Internal Medicine Cardiovascular Disease | DX: R93.1 Abnormal findings on diagnostic imaging of heart and coronary circulation (principal); Z01.810 Encounter for preprocedural cardiovascular examination | CPT/HCPCS: 93458; 99152 ==

== ENCOUNTER 2024-02-17 13:50 | Outpatient (REF) | payer MEDICARE, OTHER, SELFPAY ==
[2024-02-17 14:27] LABS: Appearance Urine Turbid; Color Urine Yellow; Glucose Urine UA Negative (Negative); Leukocyte Esterase Urine Large (3+) (Negative); Nitrite Urine Negative (Negative); UMIC TRIGGER UA YES; Urine Blood Small (1+) (Negative); Urine Ketones Negative (Negative); Urine Protein 30 (1+) mg/dL (Neg-Trace)
[2024-02-17 14:55] LABS: Bacteria Urine 4+ (None Seen); Hyaline Casts Urine 0-2 /LPF (0-2); RBC Urine 0-2 /HPF (0-2); Squamous Epithelial Cell Urine 0-2 /HPF (0-2); WBC Urine >50 /HPF (0-5)
== END 2024-02-17 13:51 | disposition home or self-care (01) ==
LOC: HO.LNP 13:50
PROVIDERS: Visit Provider Urology
DX: N31.9 Neuromuscular dysfunction of bladder, unspecified (principal); R39.15 Urgency of urination
CPT/HCPCS: 81001; 87086; 87088; 87186

== ENCOUNTER 2024-02-18 12:58 | Outpatient (AMB) | payer MEDICARE, OTHER, SELFPAY ==
--- NOTE | 2024-02-18 13:29 | MHC.OFFVIS ---
Intake Visit Reasons: 6m/3w SPT change Allergies amoxicillin [AMOXICILLIN] Allergy (Severe, Verified 11/18/23 12:12) stroke, blood clots ciprofloxacin [From CIPRO] Allergy (Severe, Verified 11/18/23 12:12) ANAPHYLAXIS Iodinated Contrast Media [IV DYE, IODINE CONTAINING CONTRAST ] Allergy (Severe, Verified 11/18/23 12:12) HIVES levofloxacin Allergy (Severe, Verified 11/18/23 12:12) Anaphylaxis liraglutide Allergy (Severe, Verified 11/18/23 12:12) Headache Penicillins Allergy (Severe, Verified 11/18/23 12:12) stroke, blood clots phenazopyridine [Pyridium] Allergy (Severe, Verified 11/18/23 12:12) Anaphylaxis FREYA Inhibitors Allergy (Intermediate, Verified 11/18/23 12:12) Cough ARB-Angiotensin Receptor Antagonist Allergy (Intermediate, Verified 11/18/23 12:12) Cough cefpodoxime Allergy (Intermediate, Verified 11/18/23 12:12) Dizziness, nausea doxazosin Allergy (Intermediate, Verified 11/18/23 12:12) Shortness of Breath fluticasone [Advair Diskus] Allergy (Intermediate, Verified 11/18/23 12:12) Anxiety gabapentin [From Neurontin] Allergy (Intermediate, Verified 11/18/23 12:12) Headache hydralazine Allergy (Intermediate, Verified 11/18/23 12:12) Shortness of Breath latex Allergy (Intermediate, Verified 11/18/23 12:12) Hives linezolid Allergy (Intermediate, Verified 11/18/23 12:12) Nausea and Vomiting meloxicam Allergy (Intermediate, Verified 11/18/23 12:12) Unknown salmeterol [Advair Diskus] Allergy (Intermediate, Verified 11/18/23 12:12) Anxiety Tetanus Vaccines and Toxoid Allergy (Intermediate, Verified 11/18/23 12:12) Swelling torsemide Allergy (Intermediate, Verified 11/18/23 12:12) Shortness of Breath cephalexin [Keflex] Allergy (Mild, Verified 11/18/23 12:12) Nausea HPI Comments Details: Kaitlin is a very pleasant female. She is a patient of Dr. Tijerina. She is here for the following urologic conditions - neurogenic bladder - recurrent UTI - nephrolithiasis - stress incontinence Continuous drainage Suprapubic tube is rotated every 3 weeks Thinks she has recurrent UTI Prior culture reviewed Bactrim 14 days Urinary retention with incomplete bladder emptying Incomplete emptying Suprapubic tube placed October 2021 Background of diabetes Has CLL and is on chronic immunosuppression which increases risk of infection substantially Nephrolithiasis 11/28 - ultrasound bilateral stones 8 mm left, 5 mm right Urinary Tract Infection: Last UTI - ceftriaxone 1gm daily 5 days They present for recurrent UTI's. Associated constipation - allergies to cipro - did have penicillin desensitization. The frequency of recurrences has been persistent recurrence. Therapy has included - Gentamicin instillation - macrobid - not well tolerated 06/27 Augmentin and 3rd generation all capsules poor in 07/28 Macrobid and 3rd generation careful support. Prior cultures have shown 05/25 - klebsiella sp.- Gentamicin resistant 06/25 - MicroDNA - enteroccus/E.coli 10^4 Bactrim/macrobid/levaquin 12/25 Microgen - 3 species - levaquin/ cefpodoxime 12/26 E.Coli levaquin/macrobid 05/28 E.Coli levaquin/gentamycin 06/27 E.Coli and Enterococcus 09/28 Strep Agalact - tx with 5 days kelfex. Recent testing included 09/28 Bladder biopsy with chronic inflammation - rectocele with incomplete emptying. Relevant medical history diabetes Yes constipation Yes incomplete bladder emptying Yes renal stones No genitourinary surgery Yes association of infections with intercourse No history of vesicoureteral reflux No Therapeutic plan will include suprapubic tube placement [facility] Medical History Osteoarthritis Morbid obesity Allergy to multiple antibiotics Depression Arthritis of left hip Wears dentures Neurogenic urinary bladder disorder History of blood transfusion History of CVA (cerebrovascular accident) Seasonal allergies History of numbness PONV (postoperative nausea and vomiting) Self-catheterizes urinary bladder Diabetes with neurologic complications Type 2 diabetes mellitus with unspecified complications Anemia CLL (chronic lymphocytic leukemia) Sleep apnea Diabetes mellitus CLL (chronic lymphocytic leukemia) Arthritis Fibromyalgia Hypercholesterolemia Hypertension History of bilateral breast cancer Urinary retention with incomplete bladder emptying Surgical History History of total left hip replacement S/P Botox injection History of suprapubic catheter S/P left breast biopsy History of esophagogastroduodenoscopy (EGD) Hx of colonoscopy History of bladder repair surgery History of total hysterectomy S/P breast biopsy, right History of back surgery History of biopsy of bladder Family History Mother Breast cancer Father Heart disease Father Lung cancer Mother Colon cancer Brother Pancreatic cancer Social History Household Members: Spouse Housing: House Are you a primary respiratory care faculty to a significant other at home: No Do you presently have visiting nurse or other home services: Yes Alcohol intake: never Comment: patient refused telesiter,removed per pt request Patient Tobacco Use Status: Never used Tobacco Advance Directives Date on File: 07/30/23 service: No Current occupational status: retired Female Reproductive History Menstrual Age of Menarche: 15 Review of Systems Const Denies chills and Denies fever(s) Card Reports no additional complaints and Denies syncope Resp Denies cough GI Denies abdominal pain and Denies heartburn Reports as per HPI and Denies change in libido Neuro Denies syncope Psych Denies change in libido Endo Denies change in libido Physical Exam Const General: cooperative, healthy appearing, comfortable and no acute distress Orientation/consciousness: patient oriented x3 HEENT Face and sinus: Yes normal facial exam Mouth: moist mucous membranes Neck Neck: Yes normal visual inspection, Yes full ROM and Yes trachea midline Chest Chest palpation & inspection: normal inspection of the chest Resp Effort & Inspection: normal respiratory effort, able to speak in complete sentences and no respiratory distress GI Inspection: Yes normal to inspection Back/Spine/Pelvis Cervical Spine: normal cervical lordosis Thoracic/Lumbar Spine: thoracic and lumbar spine normal to inspection Skin General skin exam: no rashes or lesions noted Neuro General: patient oriented x3, gait normal, tone normal and moves all extremities Extrem General: Yes normal to inspection and Yes capillary refill normal Office Procedures Bladder/Catheter Procedure Details: pt presents to office for SP tube change- 18 fr cath replaced with new 18 fr brina cath 7.5 ml balloon, flip valve. pt tolerated exchange well. next change in 3 weeks. 50073-Emwibm of bladder tube Procedure code (CPT) selection complete Assessment & Plan Assessment & Plan (1) Neurogenic urinary bladder disorder: Code(s): N31.9 - Neuromuscular dysfunction of bladder, unspecified Category: Medical (2) Urinary urgency: Code(s): R39.15 - Urgency of urination Category: Medical Plan Six-month follow-up myself Three-week follow-up nurse exchange Orders: Orders AMB Bladder/Catheter Procedure Today N31.9 - Neuromuscular dysfunction of bladder, unspecified Patient Instructions: Imaging studies, laboratory and physical exam results were discussed and reviewed in detail. No major barriers to patient understanding were identified. An opportunity to ask questions regarding the treatment plan was provided. All questions were answered. The patient expressed understanding and agreement with the above treatment plan. The patient is aware they should contact our office by phone for worsening of their current condition or the appearance of new urologic symptoms. Compliance is encouraged with any medications and followup testing that is ordered. It is a privilege to participate in the urologic care of your patient. If you have any questions or concerns regarding treatment for the above conditions, or other urologic issues, please do not hesitate to contact me. The office telephone contact is [phone]. This note is constructed using voice recognition software. While every effort has been made to ensure accuracy director behavioral health errors may have been included. Yours sincerely, Dr Ceferino Hayes MD, [facility] - Urology Providers of Expert, Compassionate Care for the Genitourinary System Coding Level of Care Code Est Pt Level 4 (82804) Diagnoses Neurogenic urinary bladder disorder N31.9 Urinary urgency R39.15 CPT Codes Bladder/Catheter Procedure - CPT: 36920-Weqqnu of bladder tube ([id number])
== END 2024-02-18 13:59 | disposition home or self-care (01) ==
PROVIDERS: PCP Family Medicine; Visit Provider Urology
DX: N39.0 Urinary tract infection, site not specified (principal); N31.9 Neuromuscular dysfunction of bladder, unspecified; R39.15 Urgency of urination
CPT/HCPCS: 51705; 99214

== ENCOUNTER → 2024-02-18 12:58 | Outpatient (BNVA) | payer MEDICARE, OTHER, SELFPAY | PROVIDERS: PCP Family Medicine; Visit Provider Urology | DX: N31.9 Neuromuscular dysfunction of bladder, unspecified (principal); R39.15 Urgency of urination | CPT/HCPCS: 51705; 99212 ==

== ENCOUNTER → 2024-02-26 13:13 | Outpatient (REF) | payer MEDICARE, OTHER, SELFPAY ==
--- NOTE | 2024-02-26 13:16 | HM_ITS ---
Conclusion: 1. Patient was monitored for total period of 6 days and 19 hours 2. Baseline was normal sinus rhythm with average heart of 71 beats per minute 3. No significant pauses or arrhythmias noted 4. No patient reported events MTDD
== END ==
LOC: HO.CARD 13:13
PROVIDERS: PCP Family Medicine; Visit Provider Internal Medicine
DX: R00.2 Palpitations (principal)
CPT/HCPCS: 93242

== ENCOUNTER → 2024-02-26 13:16 | Outpatient (BNV) | payer MEDICARE, OTHER, SELFPAY | PROVIDERS: PCP Family Medicine; Visit Provider Internal Medicine Cardiovascular Disease | DX: R00.2 Palpitations (principal) | CPT/HCPCS: 93244 ==

== ENCOUNTER 2024-03-10 11:06 | Outpatient (REF) | payer MEDICARE, OTHER, SELFPAY ==
[2024-03-10 11:36] LABS: MANUAL DIFF FLAG NO
[2024-03-10 12:11] LABS: Basophils Absolute Auto 0.1 X10*3/uL (0.0-0.2); Basophils Percent Auto 0.6 % (0-2); Eosinophils Absolute Auto 0.1 X10*3/uL (0.0-0.4); Eosinophils Percent Auto 1.5 % (0-4); Hematocrit 34.1 % (37.0-47.0); Hemoglobin 10.5 g/dl (12.0-16.0); Imm Gran Abs Auto 0.13 X10*3/uL (0.00-0.03); Imm Gran Pct Auto 1.5 % (0.0-0.4); Lymphocytes Absolute Auto 2.2 X10*3/uL (1.2-4.9); Lymphocytes Percent Auto 24.6 % (20-40); Mean Corpuscular HGB Conc 30.8 g/dl (31.0-35.0); Mean Corpuscular Hemoglobin 28.3 pg (27.0-33.0); Mean Corpuscular Volume 91.9 fL (80.0-98.0); Mean Platelet Volume 11.7 fL (9.4-12.3); Monocytes Absolute Auto 0.7 X10*3/uL (0.1-1.2); Monocytes Percent Auto 7.7 % (2-11); Neutrophils Absolute Auto 5.7 x10*3/uL (2.0-8.3); Neutrophils Percent Auto 64.1 % (45-73); Platelet Count 241 X10*3/uL (160-400); Red Blood Count 3.71 X10*6/uL (4.20-5.50); Red Cell Distribution Width 15.9 % (11.0-16.0); White Blood Count 8.9 X10*3/uL (4.8-10.8)
[2024-03-10 12:45] LABS: Iron 47 mcg/dL (30-160); Percent Iron Saturation 19 % (15-50); Total Iron Binding Capacity 243 mcg/dL (228-428); Unsaturated Iron Binding 196 ug/dL
== END 2024-03-10 11:07 | disposition home or self-care (01) ==
LOC: HO.LAB 11:06
PROVIDERS: PCP Family Medicine; Visit Provider Family Medicine
DX: D50.9 Iron deficiency anemia, unspecified (principal)
CPT/HCPCS: 36415; 51705; 83540; 85025

== ENCOUNTER 2024-03-11 11:15 | Outpatient (RCR) | payer MEDICARE, OTHER, SELFPAY ==
[2024-03-02 13:16] VITALS: BP 154/49; PULSE 66; RESP 16; TEMP 36.3; O2SAT 97
[2024-03-02] MEDS: Ertapenem Sodium 1 GM in 0.9 % Sodium Chloride 50 ML IV (13:41)
[2024-03-02] MEDS: Heparin Sodium,Porcine Flush 50 UNITS/5 ML SYRINGE IVFLUSH (14:13)
[2024-03-03 12:56] VITALS: BP 144/58; PULSE 68; RESP 16; TEMP 36.7; O2SAT 97
[2024-03-03] MEDS: Ertapenem Sodium 1 GM in 0.9 % Sodium Chloride 50 ML IV (13:05)
[2024-03-03] MEDS: 0.9 % Sodium Chloride Flush 10 ML SYRINGE 5 ML IVFLUSH ×2 (13:10→13:44)
[2024-03-03] MEDS: Heparin Sodium,Porcine Flush 50 UNITS/5 ML SYRINGE IVFLUSH (13:45)
[2024-03-04 08:12] VITALS: BP 128/58; PULSE 75; RESP 16; TEMP 36.6; O2SAT 96
[2024-03-04] MEDS: Heparin Sodium,Porcine Flush 500 UNIT/5 ML SYRINGE IVFLUSH (08:58)
[2024-03-05 09:23] VITALS: BP 136/54; PULSE 74; RESP 18; TEMP 37.2; O2SAT 94
[2024-03-05] MEDS: Ertapenem Sodium 1 GM in 0.9 % Sodium Chloride 50 ML IV (09:43)
[2024-03-05] MEDS: Heparin Sodium,Porcine Flush 50 UNITS/5 ML SYRINGE IVFLUSH (10:15)
[2024-03-06 13:07] VITALS: BP 155/59; PULSE 79; RESP 20; TEMP 36.7; O2SAT 96
[2024-03-06] MEDS: Ertapenem Sodium 1 GM in 0.9 % Sodium Chloride 50 ML IV (13:19)
[2024-03-06] MEDS: Heparin Sodium,Porcine Flush 50 UNITS/5 ML SYRINGE IVFLUSH (13:50)
[2024-03-07 10:33] VITALS: BP 145/56; PULSE 79; RESP 16; TEMP 35.7; O2SAT 95
[2024-03-07] MEDS: Ertapenem Sodium 1 GM in 0.9 % Sodium Chloride 50 ML IV (10:35)
[2024-03-07] MEDS: Heparin Sodium,Porcine Flush 50 UNITS/5 ML SYRINGE IVFLUSH (11:10)
[2024-03-08 10:04] VITALS: BP 162/51; PULSE 68; RESP 16; TEMP 36.2; O2SAT 98
[2024-03-08] MEDS: Ertapenem Sodium 1 GM in 0.9 % Sodium Chloride 50 ML IV (10:12)
[2024-03-08] MEDS: Heparin Sodium,Porcine Flush 50 UNITS/5 ML SYRINGE IVFLUSH (10:42)
[2024-03-08 10:47] VITALS: BP 157/63; PULSE 64; RESP 16; O2SAT 96
[2024-03-09 10:58] VITALS: BP 153/54; PULSE 66; RESP 18; TEMP 36.9; O2SAT 95
[2024-03-09] MEDS: Ertapenem Sodium 1 GM in 0.9 % Sodium Chloride 50 ML IV (11:26)
[2024-03-09] MEDS: Heparin Sodium,Porcine Flush 50 UNITS/5 ML SYRINGE IVFLUSH (11:58)
[2024-03-10 12:09] VITALS: BP 146/58; PULSE 68; RESP 16; TEMP 36.6; O2SAT 96
[2024-03-10] MEDS: Ertapenem Sodium 1 GM in 0.9 % Sodium Chloride 50 ML IV (12:32)
[2024-03-10] MEDS: Heparin Sodium,Porcine Flush 50 UNITS/5 ML SYRINGE IVFLUSH (13:01)
[2024-03-11 11:05] VITALS: BP 147/53; PULSE 72; RESP 20; TEMP 36.9; O2SAT 97
[2024-03-11] MEDS: Ertapenem Sodium 1 GM in 0.9 % Sodium Chloride 50 ML IV (11:19)
[2024-03-11] MEDS: Heparin Sodium,Porcine Flush 500 UNIT/5 ML SYRINGE IVFLUSH (11:52)
== END 2024-03-11 14:26 | disposition home or self-care (01) ==
LOC: HO.INF 11:15
PROVIDERS: Visit Provider Urology
DX: N39.0 Urinary tract infection, site not specified (principal)
CPT/HCPCS: 96365; 96374; J1335; J1642

== ENCOUNTER 2024-03-11 14:59 | Outpatient (AMB) | payer MEDICARE, OTHER, SELFPAY ==
[2024-03-11 15:02] VITALS: BP 140/70; PULSE 71; BMI 32.8
--- NOTE | 2024-03-11 15:02 | A.OFFVIS_ITS ---
Vital Signs 03/11/24 15:02 Height 5 ft 4 in Weight 190 lb 14.725 oz BMI 32.8 BP 140/70 H Blood Pressure Location Lt brachial Position Sitting Pulse 71 Pulse Source Monitor Intake Visit Reasons: Follow up- Open Heart Surgery Cotton Grader Required: No Accompanied by: Self / Same As Patient Allergies amoxicillin [AMOXICILLIN] Allergy (Severe, Verified 11/18/23 12:12) stroke, blood clots ciprofloxacin [From CIPRO] Allergy (Severe, Verified 11/18/23 12:12) ANAPHYLAXIS Iodinated Contrast Media [IV DYE, IODINE CONTAINING CONTRAST ] Allergy (Severe, Verified 11/18/23 12:12) HIVES levofloxacin Allergy (Severe, Verified 11/18/23 12:12) Anaphylaxis liraglutide Allergy (Severe, Verified 11/18/23 12:12) Headache Penicillins Allergy (Severe, Verified 11/18/23 12:12) stroke, blood clots phenazopyridine [Pyridium] Allergy (Severe, Verified 11/18/23 12:12) Anaphylaxis FREYA Inhibitors Allergy (Intermediate, Verified 11/18/23 12:12) Cough ARB-Angiotensin Receptor Antagonist Allergy (Intermediate, Verified 11/18/23 12:12) Cough cefpodoxime Allergy (Intermediate, Verified 11/18/23 12:12) Dizziness, nausea doxazosin Allergy (Intermediate, Verified 11/18/23 12:12) Shortness of Breath fluticasone [Advair Diskus] Allergy (Intermediate, Verified 11/18/23 12:12) Anxiety gabapentin [From Neurontin] Allergy (Intermediate, Verified 11/18/23 12:12) Headache hydralazine Allergy (Intermediate, Verified 11/18/23 12:12) Shortness of Breath latex Allergy (Intermediate, Verified 11/18/23 12:12) Hives linezolid Allergy (Intermediate, Verified 11/18/23 12:12) Nausea and Vomiting meloxicam Allergy (Intermediate, Verified 11/18/23 12:12) Unknown salmeterol [Advair Diskus] Allergy (Intermediate, Verified 11/18/23 12:12) Anxiety Tetanus Vaccines and Toxoid Allergy (Intermediate, Verified 11/18/23 12:12) Swelling torsemide Allergy (Intermediate, Verified 11/18/23 12:12) Shortness of Breath cephalexin [Keflex] Allergy (Mild, Verified 11/18/23 12:12) Nausea Medication List - Last Reconciled 03/11/24 by Gerardo Agustin MD acetaminophen 650 mg (2 x 325 mg) PO Q6H PRN 30 days amlodipine 10 mg PO DAILY ascorbic acid (vitamin C) 1,000 mg PO DAILY 90 days aspirin (Enteric Coated Aspirin) 81 mg PO DAILY atorvastatin 80 mg PO QPM blood sugar diagnostic (Accu-Chek Guide test strips) As directed carvedilol 25 mg PO BID celecoxib 200 mg PO BID 30 days citalopram 20 mg PO DAILY coenzyme Q10 (CoQ-10) 100 mg PO BEDTIME duloxetine 60 mg PO DAILY famotidine 40 mg PO BEDTIME ferrous sulfate (iron) 325 mg PO DAILY fluconazole 150 mg PO Q3D 6 days furosemide 20 mg PO DAILY ibrutinib (Imbruvica) 420 mg PO DAILY magnesium 250 mg PO BEDTIME mastectomy bra (bra, mastectomy) As Directed metformin 1,000 mg PO BID metoprolol tartrate 12.5 mg PO BID multivitamin 1 tab PO DAILY nitrofurantoin monohyd/m-cryst 100 mg (Macrobid) 100 mg PO BID 14 days ondansetron 4 mg PO Q6H PRN oxybutynin chloride 5 mg PO BID PRN 5 days pantoprazole 40 mg PO BID pregabalin 150 mg PO BID spironolactone 25 mg PO DAILY sulindac 150 mg PO BID HPI Comments Details: Kaitlin returns for follow-up regarding coronary disease. She is got extensive risk factor profile including obesity, sedentary lifestyle, diabetes, hypertension, dyslipidemia among others. She also has chronic lymphocytic leukemia on ibrutinib. She was supposed to go for hip surgery. In that context, she underwent further workup leading to a diagnostic catheterization showing multivessel CAD. That led to coronary artery bypass surgery. Hence hip surgery has not been done as yet. Otherwise, she states she is generally doing okay. Recovering from bypass surgery. [facility] Medical History (Updated 03/11/24 @ 16:15 by Gerardo Agustin MD) Osteoarthritis Morbid obesity Allergy to multiple antibiotics Depression Arthritis of left hip Wears dentures Neurogenic urinary bladder disorder History of blood transfusion History of CVA (cerebrovascular accident) Seasonal allergies History of numbness PONV (postoperative nausea and vomiting) Self-catheterizes urinary bladder Diabetes with neurologic complications Type 2 diabetes mellitus with unspecified complications Anemia CLL (chronic lymphocytic leukemia) Sleep apnea Diabetes mellitus CLL (chronic lymphocytic leukemia) Arthritis Fibromyalgia Hypercholesterolemia Hypertension History of bilateral breast cancer Urinary retention with incomplete bladder emptying Surgical History History of open heart surgery History of total left hip replacement S/P Botox injection History of suprapubic catheter S/P left breast biopsy History of esophagogastroduodenoscopy (EGD) Hx of colonoscopy History of bladder repair surgery History of total hysterectomy S/P breast biopsy, right History of back surgery History of biopsy of bladder Family History Mother Breast cancer Father Heart disease Father Lung cancer Mother Colon cancer Brother Pancreatic cancer Social History Household Members: Spouse Housing: House Are you a primary multi care technician to a significant other at home: No Do you presently have visiting nurse or other home services: Yes Alcohol intake: never Comment: patient refused telesiter,removed per pt request Patient Tobacco Use Status: Never used Tobacco Advance Directives Date on File: 07/30/23 service: No Current occupational status: retired Female Reproductive History Menstrual Age of Menarche: 15 Review of Systems Const Denies chills, Denies fatigue, Denies fever(s), Denies frequent falls, Denies weakness, Denies weight gain and Denies weight loss ENT Denies dizziness Card Denies chest pain, Denies leg edema, Denies lightheadedness, Denies palpitations, Denies dyspnea and Denies dyspnea on exertion Resp Denies cough, Denies dyspnea and Denies dyspnea on exertion GI Denies hematochezia Musc Denies abnormal gait, Denies muscle weakness, Denies numbness, Denies radiating pain into limb and Denies tingling Neuro Denies abnormal gait, Denies dizziness, Denies frequent falls, Denies numbness, Denies tingling and Denies weakness Endo Denies fatigue and Denies palpitations Physical Exam Vital Signs: Last Vital Signs Pulse 71 03/11/24 15:02 BP 140/70 H 03/11/24 15:02 BMI result Body Mass Index 32.8 Const General: comfortable and no acute distress Orientation/consciousness: patient oriented x3 HEENT Other: Unremarkable Head: Yes normal to inspection Neck Neck: Yes normal visual inspection Chest Chest palpation & inspection: normal inspection of the chest Resp Auscultation: clear to auscultation bilaterally Cardio Palpation: normal PMI Heart sounds: S1 normal heart sound present, S2 normal heart sound present, no gallops, no murmurs and no rubs GI Palpation (GI): Soft to palpation Back/Spine/Pelvis Other: unremarkable Skin General skin exam: no rashes or lesions noted Neuro General: patient oriented x3 Extrem General: Yes normal to inspection Psych Mental Status: mental status grossly normal Office Procedures EKG Details: EKG with sinus rhythm at 71/Min; leftward axis; left ventricular hypertrophy and nonspecific ST-T changes. [id number], Complete Assessment & Plan Assessment & Plan (1) Atherosclerotic cardiovascular disease: Code(s): I25.10 - Atherosclerotic heart disease of [place] coronary artery without angina pectoris Category: Medical Plan: Cardiac catheterization with multivessel CAD including MEDICAL SCIENTIFIC LIAISON of the dominant right coronary artery. Now status post bypass surgery. Recovering well. Continue aspirin and statins. (2) Status post aorto-coronary artery bypass graft: Code(s): Z95.1 - Presence of aortocoronary bypass graft Category: Surgical Plan: Recovering well. No specific concerns. To start cardiac rehabilitation. (3) PAF (paroxysmal atrial fibrillation): Code(s): I48.0 - Paroxysmal atrial fibrillation Category: Medical Plan: Per discharge summary, had postoperative atrial fibrillation after bypass surgery. She was given amiodarone but not on it anymore. In the recent Holter, no evidence of recurrent atrial fibrillation. (4) Type 2 diabetes mellitus with unspecified complications: Code(s): E11.8 - Type 2 diabetes mellitus with unspecified complications Category: Medical Plan: On metformin. Last hemoglobin A1c 5.3%. (5) Essential hypertension: Code(s): I10 - Essential (primary) hypertension Category: Medical Plan: Borderline high blood pressure. She may continue the carvedilol. Not clear why she is also on Metoprolol and we can stop that. She states she may not be on Amlodipine, but advised her that she can resume that as well. Also listed to be on spironolactone. Of note, she also has numerous medication allergies including FREYA inhibitors, ARB, doxazosin, hydralazine. Her potassium also runs high. Overall, not too much of options. (6) Hyperlipidemia, unspecified: Code(s): E78.5 - Hyperlipidemia, unspecified Category: Medical Plan: Stable. No changes. Last LDL 66 mg/dL. Orders: Orders CA echo transthoracic complete Today Z95.1 - Presence of aortocoronary bypass graft Coding Level of Care Code Est Pt Level 4 (38494) Diagnoses Atherosclerotic cardiovascular disease I25.10 Status post aorto-coronary artery bypass graft Z95.1 PAF (paroxysmal atrial fibrillation) I48.0 Type 2 diabetes mellitus with unspecified complications E11.8 Essential hypertension I10 Hyperlipidemia, unspecified E78.5 CPT Codes EKG - CPT: 26735-[id number], Complete ([id number])
== END 2024-03-11 15:35 | disposition home or self-care (01) ==
PROVIDERS: PCP Family Medicine; Visit Provider Internal Medicine
DX: I25.10 Atherosclerotic heart disease of native coronary artery without angina pectoris (principal); Z95.1 Presence of aortocoronary bypass graft; I48.0 Paroxysmal atrial fibrillation; E11.8 Type 2 diabetes mellitus with unspecified complications; I10 Essential (primary) hypertension; E78.5 Hyperlipidemia, unspecified
CPT/HCPCS: 93010; 99214

== ENCOUNTER → 2024-03-11 14:59 | Outpatient (BNVA) | payer MEDICARE, OTHER, SELFPAY | PROVIDERS: PCP Family Medicine; Visit Provider Internal Medicine | DX: I25.10 Atherosclerotic heart disease of native coronary artery without angina pectoris (principal); I48.0 Paroxysmal atrial fibrillation; I10 Essential (primary) hypertension; E11.8 Type 2 diabetes mellitus with unspecified complications; E78.5 Hyperlipidemia, unspecified; Z95.1 Presence of aortocoronary bypass graft | CPT/HCPCS: 93005; 99212 ==

== ENCOUNTER → 2024-03-25 14:54 | Outpatient (REF) | payer MEDICARE, OTHER, SELFPAY ==
--- NOTE | 2024-03-25 14:56 | CA_ITS ---
Transthoracic Echocardiogram Patient (Last, First, Middle): Kaitlin Ortiz, Gender: Female Date of : 1945 Age: 78 Procedure Date: 03/25/2024 Procedure Type: Transthoracic Echocardiogram Location: OP Height: 162.56 cm Weight: 89.81 kg BSA: 1.95 m2 Heart Rate: bpm BP: 150 / 62 mmHg Cable Ferryboat Operator: TO Referring MD: Gerardo Agustin MD Case Management Associate: Kirill Morales MD Symptoms: Z95.1 - Presence of aortocoronary bypass graft Study Quality: Technically Difficult, contrast ECG Rhythm: Sinus Conclusions: - 1. Normal LV ejection fraction of 60-65% with impaired relaxation filling pattern with underlying regional wall motion abnormality consistent with coronary artery disease 2. Calcific aortic valve changes noted with mild aortic regurgitation and mild aortic stenosis 3. Upper limits of normal ascending aortic size at 3.5 cm 4. Normal RV systolic pressure 5. Trivial pericardial effusion Findings Procedure Information Contrast agent, definity, is being given per protocol without apparent complications. Left Ventricle Normal left ventricular size and systolic function. There is mildly increased left ventricular wall thickness. The visually estimated ejection fraction is between 60-65%. Spectral Doppler is indicative of an impaired relaxation filling pattern. E/E prime ratio is between 8 and 15 consistent with indeterminate filling pressures. Wall Motion Rest Echo Findings The basal inferolateral segment is hypokinetic. The basal inferior and basal inferoseptal segments are akinetic. All other scored wall segments showed normal motion. Right Ventricle The right ventricle was not well visualized. Atria The left atrium is mildly dilated. Interatrial shunt cannot be excluded. The right atrium was not well visualized. Aortic Valve The aortic valve was not well visualized. There is mild calcification of the aortic valve. There is mild aortic valve stenosis. The mean gradient is 8 mmHg. The aortic valve area is 1.80 cm2. There is mild aortic valve regurgitation. Mitral Valve The mitral valve was not well visualized. There is no mitral valve regurgitation. There is no mitral valve stenosis. Pulmonic Valve The pulmonic valve was not well visualized. Tricuspid Valve The tricuspid valve was not well visualized. There is mild tricuspid valve regurgitation. The right ventricular systolic pressure is normal. The right ventricular systolic pressure is 24 mmHg. Normal right atrial pressure. There is no evidence of pulmonary hypertension. Great Vessels The aorta was not well visualized. The pulmonary artery was not well visualized. Small plaque is seen in the sino tubular ridge. Venous The inferior vena cava is normal in size and collapses greater than 50% with inspiration. Pericardium/Pleural There is a trivial loculated pericardial effusion overlying the left ventricle. Measurements 2D Linear Measurements IVSd: 1.30 0.6-0.9/0.6-1.0 cm LVIDd: 4.47 3.9-5.3/4.2-5.9 cm LVIDd Index: 2.29 2.4-3.2/2.2-3.1 cm/m2 LVIDs: 3.00 2.0-3.6 cm LVPWd: 1.26 0.7-1.1 cm LA Diam: 5.20 2.7-3.8/3.0-4.0 cm LAIDs Index: 2.67 1.5-2.3 cm/m2 LV Mass: 265.36 67-162/88-224 g LV Mass Index: 136.08 43-95/49-115 g/m2 LVOT Diam: 2.10 3.0+(-)1.3 cm 2D Systolic Function EF 4C: 64.90 >55% Mitral Valve MV Pk E: 0.73 MV PK A: 1.05 MV Decel Time: 287.00 E/A: 0.70 E'Lateral: 7.07 E'Medial: 4.24 E/E' Med: 17.20 E/E' Lat: 10.30 PHT: 84.00 MVA PHT: 2.62 Decel Juncos: 2.54 Aortic Valve AoV Pk Rolly: 2.01 AoV Mn Rolly: 1.35 AoV VTI: 0.43 AoV Pk Grad: 16.00 Aov Mn Grad: 8.00 INGRID Cont.VTI: 1.80 LVOT LVOT Pk Rolly: 0.96 LVOT Mn Rolly: 0.62 LVOT VTI: 0.22 LVOT Pk Grad: 4.00 LVOT Mn Grad: 2.00 LVOT Diam: 2.10 LVOT Area: 3.46 Diastolic Function MV Pk E: 0.73 MV Pk A: 1.05 E/A: 0.70 E'Medial: 4.24 E/E' Med: 17.20 E' Laterial: 7.07 E/E' Lat: 10.30 Right Ventricle TAPSE (mm): 15.50 TVS' Rolly: 8.27 Tricuspid Valve TR Pk Rolly: 2.29 TR Pk Grad: 21.00 RA Press: 3.00 RVSP: 24.00 Great Vessels Aorta Sinus of Valsalva: 3.11 2.0-3.5 cm Ao Asc: 3.50 2.1-3.4 cm Updated in Other Vendor System with Status of Final Kirill Morales MD electronically signed on 03/26/2024 5:24:31 PM with status of Final
== END ==
LOC: HO.CARD 14:54
PROVIDERS: PCP Family Medicine; Visit Provider Internal Medicine
DX: Z95.1 Presence of aortocoronary bypass graft (principal)
CPT/HCPCS: 93306; Q9957

== ENCOUNTER → 2024-03-25 14:56 | Outpatient (BNV) | payer MEDICARE, OTHER, SELFPAY | PROVIDERS: PCP Family Medicine; Visit Provider Internal Medicine Cardiovascular Disease | DX: I36.1 Nonrheumatic tricuspid (valve) insufficiency (principal); I35.2 Nonrheumatic aortic (valve) stenosis with insufficiency; Z95.1 Presence of aortocoronary bypass graft | CPT/HCPCS: 93306 ==

== ENCOUNTER → 2024-03-31 12:52 | Outpatient (BNVA) | payer MEDICARE, OTHER, SELFPAY | PROVIDERS: PCP Family Medicine; Visit Provider Urology | DX: Z43.5 Encounter for attention to cystostomy (principal); N31.9 Neuromuscular dysfunction of bladder, unspecified | CPT/HCPCS: 51705 ==

== ENCOUNTER 2024-04-11 10:41 | Outpatient (REF) | payer MEDICARE, OTHER, SELFPAY | END 2024-04-11 10:42 | disposition home or self-care (01) | LOC: HO.LNP 10:41 | PROVIDERS: Visit Provider Urology | DX: R68.89 Other general symptoms and signs (principal) | CPT/HCPCS: 87086; 87088; 87186 ==

== ENCOUNTER 2024-04-14 12:49 | Outpatient (AMB) | payer MEDICARE, OTHER, SELFPAY ==
--- NOTE | 2024-04-14 12:54 | MHC.OFFVIS ---
Vital Signs 04/14/24 12:59 Height 5 ft 4 in Weight 198 lb 6.656 oz BMI 34.1 BP 141/55 H Blood Pressure Location Lt brachial Position Sitting Pulse 59 Intake Visit Reasons: 5 month follow up Intake Note: Kaitlin presents in the office as a 5 month follow up. CC: No concerns today! Regulatory Product Manager Required: No Allergies amoxicillin [AMOXICILLIN] Allergy (Severe, Verified 04/14/24 12:59) stroke, blood clots ciprofloxacin [From CIPRO] Allergy (Severe, Verified 04/14/24 12:59) ANAPHYLAXIS Iodinated Contrast Media [IV DYE, IODINE CONTAINING CONTRAST ] Allergy (Severe, Verified 04/14/24 12:59) HIVES levofloxacin Allergy (Severe, Verified 04/14/24 12:59) Anaphylaxis liraglutide Allergy (Severe, Verified 04/14/24 12:59) Headache Penicillins Allergy (Severe, Verified 04/14/24 12:59) stroke, blood clots phenazopyridine [Pyridium] Allergy (Severe, Verified 04/14/24 12:59) Anaphylaxis FREYA Inhibitors Allergy (Intermediate, Verified 04/14/24 12:59) Cough ARB-Angiotensin Receptor Antagonist Allergy (Intermediate, Verified 04/14/24 12:59) Cough cefpodoxime Allergy (Intermediate, Verified 04/14/24 12:59) Dizziness, nausea doxazosin Allergy (Intermediate, Verified 04/14/24 12:59) Shortness of Breath fluticasone [Advair Diskus] Allergy (Intermediate, Verified 04/14/24 12:59) Anxiety gabapentin [From Neurontin] Allergy (Intermediate, Verified 04/14/24 12:59) Headache hydralazine Allergy (Intermediate, Verified 04/14/24 12:59) Shortness of Breath latex Allergy (Intermediate, Verified 04/14/24 12:59) Hives linezolid Allergy (Intermediate, Verified 04/14/24 12:59) Nausea and Vomiting meloxicam Allergy (Intermediate, Verified 04/14/24 12:59) Unknown salmeterol [Advair Diskus] Allergy (Intermediate, Verified 04/14/24 12:59) Anxiety Tetanus Vaccines and Toxoid Allergy (Intermediate, Verified 04/14/24 12:59) Swelling torsemide Allergy (Intermediate, Verified 04/14/24 12:59) Shortness of Breath cephalexin [Keflex] Allergy (Mild, Verified 04/14/24 12:59) Nausea HPI HPI 5 month follow up: Details: LAST VISIT: GERD (gastroesophageal reflux disease) IBS (irritable bowel syndrome) Nausea Screen for colon cancer Plan Continue pantoprazole twice a day. Continue avoiding dietary triggers and late night snacking. Staying upright for minimum 3 hours after meals discussed with patient. Patient can take probiotic as well. Patient has frequent UTIs and is on antibiotics. Patient can continue taking MiraLax on as needed basis. Advised the patient can take it daily. She will return in 4-5 months we can discuss going for colonoscopy. Patient has appointment with her drip molder in the beginning of May, we will ask for risk stratification. Patient is agreeable to this plan and verbalizes understanding of instructions. She was given the opportunity to ask questions and all questions answered ? Thank you for allowing me to participate in her care TODAY'S VISIT Patient is here today for follow-up and to discuss going for colonoscopy. Patient continues on pantoprazole. Continues to take MiraLax on as needed basis. Patient reports that she is moving her bowels better when she takes it. Frequent UTIs on IV antibiotics. Expected to go for another treatment in the next week or so. Patient is hip surgery was postponed as patient had emergency coronary bypass on January 27. Patient went for stress test for preop and was found to have RCA occlusion 100% and needed emergency bypass graft surgery. Patient reports that she has been doing well since then. Follows up with cardiac rehab. Her colonoscopy will need to be postponed. Patient had colonoscopy in August of 2021, tubular adenoma found and patient had suboptimal prep, unable to intubate to left side of her colon. Patient denies any melena, hematochezia, unintentional weight loss or ribbon like stools. Patient has appointment with her drip molder in beginning of May. Her colonoscopy that was booked already for May will need to be canceled. Will ask for risk stratification and clearance before proceeding with appointment. [facility] Medical History Osteoarthritis Morbid obesity Allergy to multiple antibiotics Depression Arthritis of left hip Wears dentures Neurogenic urinary bladder disorder History of blood transfusion History of CVA (cerebrovascular accident) Seasonal allergies History of numbness PONV (postoperative nausea and vomiting) Self-catheterizes urinary bladder Diabetes with neurologic complications Type 2 diabetes mellitus with unspecified complications Anemia CLL (chronic lymphocytic leukemia) Sleep apnea Diabetes mellitus CLL (chronic lymphocytic leukemia) Arthritis Fibromyalgia Hypercholesterolemia Hypertension History of bilateral breast cancer Urinary retention with incomplete bladder emptying Surgical History History of open heart surgery History of total left hip replacement S/P Botox injection History of suprapubic catheter S/P left breast biopsy History of esophagogastroduodenoscopy (EGD) Hx of colonoscopy History of bladder repair surgery History of total hysterectomy S/P breast biopsy, right History of back surgery History of biopsy of bladder Family History Mother Breast cancer Father Heart disease Father Lung cancer Mother Colon cancer Brother Pancreatic cancer Social History Household Members: Spouse Housing: House Are you a primary long term care pharmacist to a significant other at home: No Do you presently have visiting nurse or other home services: Yes Alcohol intake: never Comment: patient refused telesiter,removed per pt request Patient Tobacco Use Status: Never used Tobacco Advance Directives Date on File: 07/30/23 service: No Current occupational status: retired Female Reproductive History Menstrual Age of Menarche: 15 Review of Systems Const Denies weight gain and Denies weight loss ENT Reports no additional complaints, Denies dysphagia and Denies odynophagia Card Reports no additional complaints Resp Reports no additional complaints GI Denies abdominal pain, Denies belching, Denies melena, Denies bloating, Denies change in bowel habits, Reports constipation (Occasional), Denies dysphagia, Denies excessive flatus, Denies dyspepsia, Denies heartburn, Denies diarrhea, Denies loose stools, Reports nausea (Occasional), Denies odynophagia and Denies vomiting Reports no additional complaints Musc Reports no additional complaints Neuro Reports no additional complaints Psych Reports no additional complaints Endo Reports no additional complaints Physical Exam Vital Signs: Last Vital Signs Pulse 59 04/14/24 12:59 BP 141/55 H 04/14/24 12:59 BMI result Body Mass Index 34.1 Const Other: Patient ambulating with a wheeled walker General: healthy appearing and no acute distress Nutritional Appearance: obese Orientation/consciousness: patient oriented x3 Resp Effort & Inspection: normal respiratory effort, able to speak in complete sentences, no tracheal deviation and symmetric chest movement Auscultation: clear to auscultation bilaterally Cardio Rate: regular rate GI Inspection: Yes normal to inspection, No distended and Yes obesity Palpation (GI): Soft to palpation, not firm, nontender and No hepatosplenomegaly present Auscultation: normal bowel sounds General: Yes no CVA tenderness Back/Spine/Pelvis Back: no CVA tenderness Skin General skin exam: elasticity normal, turgor normal and dry skin Neuro General: patient oriented x3 Psych Appearance: grossly normal Mental Status: mental status grossly normal Assessment & Plan Assessment & Plan (1) GERD (gastroesophageal reflux disease): Code(s): K21.9 - Gastro-esophageal reflux disease without esophagitis Qualifiers: Esophagitis presence: esophagitis presence not specified Qualified Code(s): K21.9 - Gastro-esophageal reflux disease without esophagitis (2) IBS (irritable bowel syndrome): Code(s): K58.9 - Irritable bowel syndrome without diarrhea Qualifiers: Irritable bowel syndrome type: without diarrhea Qualified Code(s): K58.9 - Irritable bowel syndrome without diarrhea (3) Nausea: Code(s): R11.0 - Nausea (4) Screen for colon cancer: Code(s): Z12.11 - Encounter for screening for malignant neoplasm of colon Plan Patient will return to the office end of July. Continue current management with pantoprazole twice a day. Patient will continue taking MiraLax daily. Avoid dietary triggers and late night snacking. Staying upright for minimum 3 hours after meals discussed with patient. Message sent to hospital security officer to inquire cardiac clearance before sending patient for procedure. Both patient and her are agreeable to plan of care and verbalizes understanding of instructions. They were given the opportunity to ask questions and all questions answered. Thank you for allowing me to participate in her care Coding Level of Care Code Est Pt Level 3 (10473) Diagnoses Gastroesophageal reflux disease, unspecified whether esophagitis present K21.9 Esophagitis presence: esophagitis presence not specified Irritable bowel syndrome without diarrhea K58.9 Irritable bowel syndrome type: without diarrhea Nausea R11.0 Screen for colon cancer Z12.11 Time Spent (min) 25 Comment 15 minutes spent with patient and additional 10 minutes spent reviewing her records
[2024-04-14 12:59] VITALS: BP 141/55; PULSE 59; BMI 34.1
== END 2024-04-14 13:30 | disposition home or self-care (01) ==
PROVIDERS: PCP Family Medicine; Visit Provider Nurse Practitioner Family
DX: K21.9 Gastro-esophageal reflux disease without esophagitis (principal); K58.9 Irritable bowel syndrome, unspecified; R11.0 Nausea; Z12.11 Encounter for screening for malignant neoplasm of colon
CPT/HCPCS: 99213

== ENCOUNTER → 2024-04-14 12:49 | Outpatient (BNVA) | payer MEDICARE, OTHER, SELFPAY | PROVIDERS: PCP Family Medicine; Visit Provider Nurse Practitioner Family | DX: K21.9 Gastro-esophageal reflux disease without esophagitis (principal); K58.9 Irritable bowel syndrome, unspecified; R11.0 Nausea; Z12.11 Encounter for screening for malignant neoplasm of colon | CPT/HCPCS: 99212 ==

== ENCOUNTER 2024-04-15 09:30 | Outpatient (RCR) | payer MEDICARE, OTHER, SELFPAY ==
[2024-01-01] MEDS: Heparin Sodium,Porcine Flush 500 UNIT/5 ML SYRINGE IVFLUSH (11:39)
[2024-04-15 09:32] VITALS: BP 155/47; PULSE 62; RESP 20; TEMP 37.1; O2SAT 98
[2024-04-15] MEDS: 0.9 % Sodium Chloride Flush 10 ML SYRINGE 5 ML IVFLUSH (09:44)
[2024-04-15] MEDS: Heparin Sodium,Porcine Flush 500 UNIT/5 ML SYRINGE IVFLUSH (09:45)
== END 2024-04-15 10:30 | disposition home or self-care (01) ==
LOC: HO.INF 09:30
PROVIDERS: Visit Provider Urology
DX: Z45.2 Encounter for adjustment and management of vascular access device (principal)
CPT/HCPCS: 96523; J1335; J1642

== ENCOUNTER → 2024-04-21 12:49 | Outpatient (BNVA) | payer MEDICARE, OTHER, SELFPAY | PROVIDERS: PCP Family Medicine; Visit Provider Urology | DX: N31.9 Neuromuscular dysfunction of bladder, unspecified (principal); Z46.6 Encounter for fitting and adjustment of urinary device | CPT/HCPCS: 51705 ==

== ENCOUNTER 2024-05-02 10:00 | Outpatient (RCR) | payer MEDICARE, OTHER, SELFPAY ==
[2024-04-23 09:38] VITALS: BMI 27.5
[2024-04-23 10:23] LABS: Blood Urea Nitrogen 22 mg/dL (9-16); Creatinine Clr Calc Pharmacy 38.8; Estimated Glomerular Filt Rate 42
[2024-04-23 11:02] VITALS: BP 148/53; PULSE 59; RESP 16; TEMP 36.4; O2SAT 97
[2024-04-23] MEDS: Heparin Sodium,Porcine Flush 50 UNITS, 0.9 % Sodium Chloride Flush 5 ML IVFLUSH (12:41)
[2024-04-25 10:09] VITALS: BP 162/55; PULSE 60; RESP 16; TEMP 36.5; O2SAT 97
[2024-04-27 08:09] VITALS: BP 141/50; PULSE 53; RESP 14; TEMP 36.6; O2SAT 97
[2024-04-27] MEDS: Heparin Sodium,Porcine Flush 50 UNITS, 0.9 % Sodium Chloride Flush 5 ML IVFLUSH (09:59)
[2024-04-29 08:24] LABS: Gentamicin Trough 8.4 ug/mL (0.5-2.0)
[2024-04-29 13:29] VITALS: BMI 33.1
[2024-04-29 13:33] VITALS: BP 145/53; PULSE 57; RESP 14; TEMP 36.6; O2SAT 96
[2024-04-29 14:27] LABS: Blood Urea Nitrogen 22 mg/dL (9-16); Creatinine Clr Calc Pharmacy 53.9; Estimated Glomerular Filt Rate 56
[2024-04-30 10:26] VITALS: BP 162/50; PULSE 58; RESP 18; TEMP 36.6
[2024-04-30] MEDS: Heparin Sodium,Porcine Flush 50 UNITS, 0.9 % Sodium Chloride Flush 5 ML IVFLUSH (11:59)
[2024-05-01 10:23] VITALS: BP 168/40; PULSE 61; RESP 18; TEMP 36.5
[2024-05-01] MEDS: Heparin Sodium,Porcine Flush 50 UNITS, 0.9 % Sodium Chloride Flush 5 ML IVFLUSH (12:06)
[2024-05-02 10:27] VITALS: BP 154/54; PULSE 57; RESP 16; TEMP 36.8; O2SAT 96
== END 2024-05-02 11:00 | disposition home or self-care (01) ==
LOC: HO.INF 10:00
PROVIDERS: Visit Provider Urology
DX: N39.0 Urinary tract infection, site not specified (principal)
CPT/HCPCS: 36415; 80170; 82565; 84520; 96365; 96374; J1580; J1642

== ENCOUNTER 2024-05-05 09:56 | Outpatient (REF) | payer MEDICARE, OTHER, SELFPAY | END 2024-05-05 09:57 | disposition home or self-care (01) | LOC: HO.LNP 09:56 | PROVIDERS: Visit Provider Urology | DX: Z13.89 Encounter for screening for other disorder (principal) | CPT/HCPCS: 87086; 87088; 87186 ==

== ENCOUNTER → 2024-05-12 12:54 | Outpatient (BNVA) | payer MEDICARE, OTHER, SELFPAY | PROVIDERS: PCP Family Medicine; Visit Provider Urology | DX: N31.9 Neuromuscular dysfunction of bladder, unspecified (principal) | CPT/HCPCS: 51705 ==

== ENCOUNTER 2024-05-14 12:51 | Outpatient (AMB) | payer MEDICARE, OTHER, SELFPAY ==
[2024-05-14 13:05] VITALS: BP 136/52; PULSE 56; BMI 32.5
--- NOTE | 2024-05-14 13:05 | MHC.OFFVIS ---
Vital Signs 05/14/24 13:05 Height 5 ft 5 in Weight 195 lb 5.273 oz BMI 32.5 BP 136/52 L Blood Pressure Location Lt brachial Position Sitting Pulse 56 Pulse Source Pulse Oximeter Intake Visit Reasons: 6 m follow up/ preop colonoscopy Anthropometrist Required: No Accompanied by: Spouse Allergies amoxicillin [AMOXICILLIN] Allergy (Severe, Verified 04/14/24 12:59) stroke, blood clots ciprofloxacin [From CIPRO] Allergy (Severe, Verified 04/14/24 12:59) ANAPHYLAXIS Iodinated Contrast Media [IV DYE, IODINE CONTAINING CONTRAST ] Allergy (Severe, Verified 04/14/24 12:59) HIVES levofloxacin Allergy (Severe, Verified 04/14/24 12:59) Anaphylaxis liraglutide Allergy (Severe, Verified 04/14/24 12:59) Headache Penicillins Allergy (Severe, Verified 04/14/24 12:59) stroke, blood clots phenazopyridine [Pyridium] Allergy (Severe, Verified 04/14/24 12:59) Anaphylaxis FREYA Inhibitors Allergy (Intermediate, Verified 04/14/24 12:59) Cough ARB-Angiotensin Receptor Antagonist Allergy (Intermediate, Verified 04/14/24 12:59) Cough cefpodoxime Allergy (Intermediate, Verified 04/14/24 12:59) Dizziness, nausea doxazosin Allergy (Intermediate, Verified 04/14/24 12:59) Shortness of Breath fluticasone [Advair Diskus] Allergy (Intermediate, Verified 04/14/24 12:59) Anxiety gabapentin [From Neurontin] Allergy (Intermediate, Verified 04/14/24 12:59) Headache hydralazine Allergy (Intermediate, Verified 04/14/24 12:59) Shortness of Breath latex Allergy (Intermediate, Verified 04/14/24 12:59) Hives linezolid Allergy (Intermediate, Verified 04/14/24 12:59) Nausea and Vomiting meloxicam Allergy (Intermediate, Verified 04/14/24 12:59) Unknown salmeterol [Advair Diskus] Allergy (Intermediate, Verified 04/14/24 12:59) Anxiety Tetanus Vaccines and Toxoid Allergy (Intermediate, Verified 04/14/24 12:59) Swelling torsemide Allergy (Intermediate, Verified 04/14/24 12:59) Shortness of Breath cephalexin [Keflex] Allergy (Mild, Verified 08/06/24 12:59) Nausea Medication List - Last Reconciled 05/14/24 by Gerardo Agustin MD acetaminophen 650 mg (2 x 325 mg) PO Q6H PRN 30 days amlodipine 10 mg PO DAILY ascorbic acid (vitamin C) 1,000 mg PO DAILY 90 days aspirin (Enteric Coated Aspirin) 81 mg PO DAILY atorvastatin 80 mg PO QPM blood sugar diagnostic (Accu-Chek Guide test strips) As directed carvedilol 25 mg PO BID celecoxib 200 mg PO BID 30 days citalopram 20 mg PO DAILY coenzyme Q10 (CoQ-10) 100 mg PO BEDTIME duloxetine 60 mg PO DAILY famotidine 40 mg PO BEDTIME ferrous sulfate (iron) 325 mg PO DAILY furosemide 20 mg PO DAILY ibrutinib (Imbruvica) 420 mg PO DAILY magnesium 250 mg PO BEDTIME mastectomy bra (bra, mastectomy) As Directed mastectomy bra (bra, mastectomy) As Directed metformin 1,000 mg PO BID multivitamin 1 tab PO DAILY ondansetron 4 mg PO Q6H PRN oxybutynin chloride 5 mg PO BID PRN pantoprazole 40 mg PO BID pregabalin 150 mg PO BID spironolactone 25 mg PO DAILY sulfamethoxazole-trimethoprim 400-80 mg/5 mL 18.6875 mL IV BID 14 days HPI Comments Details: Kaitlin returns for follow-up regarding coronary disease. She has got extensive risk factor profile including obesity, sedentary lifestyle, diabetes, hypertension, dyslipidemia among others. She also has chronic lymphocytic leukemia on ibrutinib. She was supposed to go for hip surgery. In that context, she underwent further workup leading to a diagnostic catheterization showing multivessel CAD. That led to coronary artery bypass surgery. Overall, she is slowly recovering. She is also going for cardiac rehab. No new cardiac symptoms. She is still awaiting hip surgery. Colonoscopy is also supposed to be completed but again not scheduled because of the recent bypass. Hence hip surgery has not been done as yet. Otherwise, she states she is generally doing okay. Recovering from bypass surgery. [facility] Medical History Osteoarthritis Morbid obesity Allergy to multiple antibiotics Depression Arthritis of left hip Wears dentures Neurogenic urinary bladder disorder History of blood transfusion History of CVA (cerebrovascular accident) Seasonal allergies History of numbness PONV (postoperative nausea and vomiting) Self-catheterizes urinary bladder Diabetes with neurologic complications Type 2 diabetes mellitus with unspecified complications Anemia CLL (chronic lymphocytic leukemia) Sleep apnea Diabetes mellitus CLL (chronic lymphocytic leukemia) Arthritis Fibromyalgia Hypercholesterolemia Hypertension History of bilateral breast cancer Urinary retention with incomplete bladder emptying Surgical History History of open heart surgery History of total left hip replacement S/P Botox injection History of suprapubic catheter S/P left breast biopsy History of esophagogastroduodenoscopy (EGD) Hx of colonoscopy History of bladder repair surgery History of total hysterectomy S/P breast biopsy, right History of back surgery History of biopsy of bladder Family History Mother Breast cancer Father Heart disease Father Lung cancer Mother Colon cancer Brother Pancreatic cancer Social History Household Members: Spouse Housing: House Are you a primary youth care professional to a significant other at home: No Do you presently have visiting nurse or other home services: Yes Alcohol intake: never Comment: patient refused telesiter,removed per pt request Patient Tobacco Use Status: Never used Tobacco Advance Directives Date on File: 07/30/23 service: No Current occupational status: retired Female Reproductive History Menstrual Age of Menarche: 15 Review of Systems Const Denies chills, Denies fatigue, Denies fever(s), Denies weight gain and Denies weight loss ENT Denies dizziness Card Denies chest pain, Denies leg edema, Denies lightheadedness, Denies palpitations, Denies dyspnea on exertion, Denies orthopnea and Denies other Resp Denies cough and Denies dyspnea on exertion GI Denies hematochezia and Denies change in stool character Musc Denies abnormal gait, Denies muscle weakness, Denies numbness, Denies radiating pain into limb and Denies tingling Neuro Denies abnormal gait, Denies dizziness, Denies numbness and Denies tingling Endo Denies fatigue and Denies palpitations Physical Exam Vital Signs: Last Vital Signs Pulse 56 05/14/24 13:05 BP 136/52 L 05/14/24 13:05 BMI result Body Mass Index 32.5 Const General: comfortable and no acute distress Orientation/consciousness: patient oriented x3 HEENT Other: Unremarkable Head: Yes normal to inspection Neck Neck: Yes normal visual inspection Chest Chest palpation & inspection: normal inspection of the chest Resp Auscultation: clear to auscultation bilaterally Cardio Palpation: normal PMI Heart sounds: S1 normal heart sound present, S2 normal heart sound present, no gallops, no murmurs and no rubs GI Palpation (GI): Soft to palpation Back/Spine/Pelvis Other: unremarkable Skin General skin exam: no rashes or lesions noted Neuro General: patient oriented x3 Extrem General: Yes normal to inspection Psych Mental Status: mental status grossly normal Assessment & Plan Assessment & Plan (1) Atherosclerotic cardiovascular disease: Code(s): I25.10 - Atherosclerotic heart disease of [place] coronary artery without angina pectoris Category: Medical Plan: Cardiac catheterization with multivessel CAD including LEATHER CUTTER of the dominant right coronary artery. Now status post bypass surgery. Continue aspirin and statins. She is also going for cardiac rehabilitation. May continue. (2) Status post aorto-coronary artery bypass graft: Code(s): Z95.1 - Presence of aortocoronary bypass graft Category: Surgical Plan: Recovering well. No specific concerns. (3) PAF (paroxysmal atrial fibrillation): Code(s): I48.0 - Paroxysmal atrial fibrillation Category: Medical Plan: Per discharge summary, had postoperative atrial fibrillation after bypass surgery. She was given amiodarone but not on it anymore. In the recent Holter, no evidence of recurrent atrial fibrillation. (4) Type 2 diabetes mellitus with unspecified complications: Code(s): E11.8 - Type 2 diabetes mellitus with unspecified complications Category: Medical Plan: On metformin. Last hemoglobin A1c 6%. (5) Essential hypertension: Code(s): I10 - Essential (primary) hypertension Category: Medical Plan: Borderline high blood pressure. She may continue the carvedilol and amlodipine. Also on spironolactone. Of note, she also has numerous medication allergies including FREYA inhibitors, ARB, doxazosin, hydralazine. Her potassium also runs high. Overall, not too much of options. (6) Hyperlipidemia, unspecified: Code(s): E78.5 - Hyperlipidemia, unspecified Category: Medical Plan: Stable. No changes. Last LDL 66 mg/dL. (7) Preoperative cardiovascular examination: Code(s): Z01.810 - Encounter for preprocedural cardiovascular examination Category: Medical Plan: Per patient, still awaiting hip surgery as well as colonoscopy. I suggested to her that she can probably wait for at least about 6 months or so from time of coronary bypass and then proceed. Intermediate cardiac risk. She will contact the respective departments. Medications: Changed From oxybutynin chloride 5 mg PO BID 30 tabs 3RF To oxybutynin chloride 5 mg PO BID PRN Coding Level of Care Code Est Pt Level 4 (34256) Diagnoses Atherosclerotic cardiovascular disease I25.10 Status post aorto-coronary artery bypass graft Z95.1 PAF (paroxysmal atrial fibrillation) I48.0 Type 2 diabetes mellitus with unspecified complications E11.8 Essential hypertension I10 Hyperlipidemia, unspecified E78.5 Preoperative cardiovascular examination Z01.810
== END 2024-05-14 13:27 | disposition home or self-care (01) ==
PROVIDERS: PCP Family Medicine; Visit Provider Internal Medicine
DX: I25.10 Atherosclerotic heart disease of native coronary artery without angina pectoris (principal); Z95.1 Presence of aortocoronary bypass graft; I48.0 Paroxysmal atrial fibrillation; E11.8 Type 2 diabetes mellitus with unspecified complications; I10 Essential (primary) hypertension; E78.5 Hyperlipidemia, unspecified; Z01.810 Encounter for preprocedural cardiovascular examination
CPT/HCPCS: 99214

== ENCOUNTER → 2024-05-14 12:51 | Outpatient (BNVA) | payer MEDICARE, OTHER, SELFPAY | PROVIDERS: PCP Family Medicine; Visit Provider Internal Medicine | DX: Z01.810 Encounter for preprocedural cardiovascular examination (principal); I25.10 Atherosclerotic heart disease of native coronary artery without angina pectoris; E66.9 Obesity, unspecified; I10 Essential (primary) hypertension; E78.5 Hyperlipidemia, unspecified; I48.0 Paroxysmal atrial fibrillation; Z95.1 Presence of aortocoronary bypass graft; Z68.32 Body mass index [BMI] 32.0-32.9, adult | CPT/HCPCS: 99212 ==

== ENCOUNTER 2024-05-27 10:46 | Outpatient (REF) | payer MEDICARE, OTHER, SELFPAY ==
[2024-05-27 12:27] LABS: Estimated Glomerular Filt Rate 47
[2024-06-01 14:06] LABS: Gentamicin Trough < 0.3 ug/mL (0.5-2.0)
== END 2024-05-27 10:47 | disposition home or self-care (01) ==
LOC: HO.LAB 10:46
PROVIDERS: Absent Provider Urology; PCP Family Medicine; Visit Provider Nurse Practitioner Family
DX: R39.15 Urgency of urination (principal); N39.0 Urinary tract infection, site not specified
CPT/HCPCS: 36415; 80170; 82565

== ENCOUNTER 2024-05-28 15:57 | Outpatient (REF) | payer MEDICARE, OTHER, SELFPAY ==
[2024-05-29 08:23] LABS: Gentamicin Trough 8.5 ug/mL (0.5-2.0)
== END 2024-05-28 15:58 | disposition home or self-care (01) ==
LOC: HO.LAB 15:57
PROVIDERS: PCP Family Medicine; Visit Provider Urology
DX: N39.0 Urinary tract infection, site not specified (principal)
CPT/HCPCS: 36415; 80170

== ENCOUNTER → 2024-06-02 13:12 | Outpatient (BNVA) | payer MEDICARE, OTHER, SELFPAY | PROVIDERS: PCP Family Medicine; Visit Provider Urology | DX: N31.9 Neuromuscular dysfunction of bladder, unspecified (principal) | CPT/HCPCS: 51705 ==

== ENCOUNTER 2024-06-04 10:00 | Outpatient (RCR) | payer MEDICARE, OTHER, SELFPAY ==
[2024-05-27 10:09] VITALS: BP 171/74; PULSE 58; RESP 20; TEMP 37.1; O2SAT 97
--- NOTE | 2024-05-27 10:39 | HO.INF ---
per pharmacy, labs are needed prior to gentamycin and needs to be rescheduled. labs are ordered by providers office. pt aware to have labs drawn prior to tomorrows appt. pt aware and agreeable.
[2024-05-28 10:15] VITALS: BP 160/44; PULSE 63; RESP 18; TEMP 36.6; O2SAT 96
[2024-05-28] MEDS: Heparin Sodium,Porcine Flush 50 UNITS, 0.9 % Sodium Chloride Flush 5 ML IVFLUSH (11:22)
[2024-05-29 09:52] VITALS: BP 143/42; PULSE 61; RESP 16; TEMP 36.6; O2SAT 95
--- NOTE | 2024-05-29 10:07 | HO.INF ---
call received from vy in pharmacy. trough level drawn yesterday is resulted and per vy, dose adjustment is needed. pharmacy calling providers office and will call back soon about medication. pt made aware and agreeable.
--- NOTE | 2024-05-29 11:21 | HO.INF ---
per vy in pharmacy, new ordered dose freq is q48h
[2024-05-31 10:05] VITALS: BP 162/46; PULSE 60; RESP 16; TEMP 36.3; O2SAT 97
[2024-05-31 11:43] VITALS: BP 154/38; PULSE 59; RESP 16; TEMP 36.8; O2SAT 97
[2024-05-31] MEDS: Heparin Sodium,Porcine Flush 50 UNITS, 0.9 % Sodium Chloride Flush 5 ML IVFLUSH (11:59)
[2024-06-02 10:17] VITALS: BP 144/50; PULSE 57; RESP 14; TEMP 36.6; O2SAT 98
[2024-06-02] MEDS: Heparin Sodium,Porcine Flush 50 UNITS, 0.9 % Sodium Chloride Flush 5 ML IVFLUSH (11:37)
[2024-06-04 09:59] VITALS: BP 177/49; PULSE 75; RESP 18; TEMP 36.6; O2SAT 96
== END 2024-06-04 11:21 | disposition home or self-care (01) ==
LOC: HO.INF 10:00
PROVIDERS: PCP Family Medicine; Visit Provider Urology
DX: N39.0 Urinary tract infection, site not specified (principal)
CPT/HCPCS: 96365; 96374; J1580; J1642

== ENCOUNTER 2024-06-18 12:03 | Outpatient (REF) | payer MEDICARE, OTHER, SELFPAY ==
--- NOTE | ~2024-06-18 | XR_ITS ---
EXAMINATION: XR PELVIS CLINICAL INFORMATION: Left hip pain. COMPARISON: Multiple priors, most recent pelvic radiograph dated 12/19/2023. TECHNIQUE: AP view of the pelvis. FINDINGS: Redemonstration of a left hip arthroplasty in unchanged anatomic alignment. A minimally displaced fracture is redemonstrated through the medial acetabular screw, unchanged when compared to the prior examination. Lucency redemonstrated adjacent to the acetabular cup, also unchanged and possibly representing chronic hardware loosening. No lucency adjacent to the femoral component. No evidence of asymmetric wear. Femoral head well seated within the acetabulum. No acute osseous fracture. Moderate right hip osteoarthritis, unchanged. Osteoarthritis redemonstrated at the symphysis pubis and bilateral sacroiliac joints. Degenerative disc disease again noted within the lower lumbar spine. Phleboliths within the pelvis. XR/XR pelvis 1-2V IMPRESSION: 1. Left hip arthroplasty in unchanged anatomic alignment. 2. Minimally displaced fracture through the medial acetabular screw, unchanged when compared to the prior examination. Lucency adjacent to the acetabular cup, also unchanged and possibly representing chronic hardware loosening. 3. Moderate right hip osteoarthritis, unchanged. Electronically signed by: Lc Damian MD 07/07/2024 06:46 AM EDT
== END 2024-06-18 12:04 | disposition home or self-care (01) ==
LOC: HO.HOSX 12:03
PROVIDERS: Visit Provider Orthopaedic Surgery
DX: M25.559 Pain in unspecified hip (principal); Z96.642 Presence of left artificial hip joint; M16.11 Unilateral primary osteoarthritis, right hip
CPT/HCPCS: 72170; 99212

== ENCOUNTER 2024-06-18 12:33 | Outpatient (AMB) | payer MEDICARE, OTHER, SELFPAY ==
--- NOTE | 2024-06-18 12:36 | A.OFFVIS_ITS ---
Intake Visit Reasons: OV-Left hip pain/difficulty walking Intake Note: Kaitlin is a 78 year old female who presents today for a follow up of her left hip s/p Left THA01/08/23. At her last visit it was noted that she has a broken acetabluar screw which causes concern for loosening. Labs done ruled out infection. She continues to have difficulty walking, but it was decided to hold off surgical intervention & to follow up about 3 months after cardiac procedure. aortocoronary bypass surgery 01/21/24 at [facility] MR/MR lumbar spine wo con IMPRESSION: 1. Status post L3-L4-L5 bilateral posterior element fusion with bridging arthrodesis. 2. L2-L3 marked central stenosis secondary to a marked posterior broad-based disc bulge and marked bilateral ligamentum flavum hypertrophy. Elsewhere in the lumbar spine, multilevel chronic spondylosis is present without associated marked central or foraminal stenoses or direct nerve root impingements. Allergies amoxicillin [AMOXICILLIN] Allergy (Severe, Verified 04/14/24 12:59) stroke, blood clots ciprofloxacin [From CIPRO] Allergy (Severe, Verified 04/14/24 12:59) ANAPHYLAXIS Iodinated Contrast Media [IV DYE, IODINE CONTAINING CONTRAST ] Allergy (Severe, Verified 04/14/24 12:59) HIVES levofloxacin Allergy (Severe, Verified 04/14/24 12:59) Anaphylaxis liraglutide Allergy (Severe, Verified 04/14/24 12:59) Headache Penicillins Allergy (Severe, Verified 04/14/24 12:59) stroke, blood clots phenazopyridine [Pyridium] Allergy (Severe, Verified 04/14/24 12:59) Anaphylaxis FREYA Inhibitors Allergy (Intermediate, Verified 04/14/24 12:59) Cough ARB-Angiotensin Receptor Antagonist Allergy (Intermediate, Verified 04/14/24 12:59) Cough cefpodoxime Allergy (Intermediate, Verified 04/14/24 12:59) Dizziness, nausea doxazosin Allergy (Intermediate, Verified 04/14/24 12:59) Shortness of Breath fluticasone [Advair Diskus] Allergy (Intermediate, Verified 04/14/24 12:59) Anxiety gabapentin [From Neurontin] Allergy (Intermediate, Verified 04/14/24 12:59) Headache hydralazine Allergy (Intermediate, Verified 04/14/24 12:59) Shortness of Breath latex Allergy (Intermediate, Verified 04/14/24 12:59) Hives linezolid Allergy (Intermediate, Verified 04/14/24 12:59) Nausea and Vomiting meloxicam Allergy (Intermediate, Verified 04/14/24 12:59) Unknown salmeterol [Advair Diskus] Allergy (Intermediate, Verified 04/14/24 12:59) Anxiety Tetanus Vaccines and Toxoid Allergy (Intermediate, Verified 04/14/24 12:59) Swelling torsemide Allergy (Intermediate, Verified 04/14/24 12:59) Shortness of Breath cephalexin [Keflex] Allergy (Mild, Verified 04/14/24 12:59) Nausea HPI HPI OV-Left hip pain/difficulty walking: Details: Kaitlin comes in today with left hip pain. She had hip pain in the past we were concerned about acetabular loosening but she would defer for diagnosis given open heart surgery. She had that and has been, at least according to her, cleared for possible surgery in July. She states she has left groin and hip pain that prevents her from walking comfortably. She has severe difficulty with ambulation. [facility] Medical History Osteoarthritis Morbid obesity Allergy to multiple antibiotics Depression Arthritis of left hip Wears dentures Neurogenic urinary bladder disorder History of blood transfusion History of CVA (cerebrovascular accident) Seasonal allergies History of numbness PONV (postoperative nausea and vomiting) Self-catheterizes urinary bladder Diabetes with neurologic complications Type 2 diabetes mellitus with unspecified complications Anemia CLL (chronic lymphocytic leukemia) Sleep apnea Diabetes mellitus CLL (chronic lymphocytic leukemia) Arthritis Fibromyalgia Hypercholesterolemia Hypertension History of bilateral breast cancer Urinary retention with incomplete bladder emptying Surgical History History of open heart surgery History of total left hip replacement S/P Botox injection History of suprapubic catheter S/P left breast biopsy History of esophagogastroduodenoscopy (EGD) Hx of colonoscopy History of bladder repair surgery History of total hysterectomy S/P breast biopsy, right History of back surgery History of biopsy of bladder Family History Mother Breast cancer Father Heart disease Father Lung cancer Mother Colon cancer Brother Pancreatic cancer Social History (Reviewed 05/14/24 @ 13:10 by ZENIA Ojeda Household Members: Spouse Housing: House Are you a primary critical care physician assistant to a significant other at home: No Do you presently have visiting nurse or other home services: Yes Alcohol intake: never Comment: patient refused telesiter,removed per pt request Patient Tobacco Use Status: Never used Tobacco Advance Directives Date on File: 07/30/23 service: No Current occupational status: retired Female Reproductive History Menstrual Age of Menarche: 15 Physical Exam Extrem Other: There is groin pain with hip range of motion. She has an antalgic gait Results Reviewed Results Reviewed: Plain radiographs show broken acetabular screw with lucency around both screws Assessment & Plan Assessment & Plan (1) Status post total hip replacement, left: Code(s): Z96.642 - Presence of left artificial hip joint Category: Surgical Plan: Broken acetabular screw with pain and lucency around the screws. Labs and CT ordered. Orders: Orders Complete Blood Count Auto Diff Today Z96.642 - Presence of left artificial hip joint Erythrocyte Sedimentation Rate Today Z96.642 - Presence of left artificial hip joint C Reactive Protein Today Z96.642 - Presence of left artificial hip joint XR pelvis 1-2V Today M25.559 - Pain in unspecified hip CT hip LT wo IV con Today Z96.642 - Presence of left artificial hip joint Coding Level of Care Code Est Pt Level 4 (73726) Diagnoses Status post total hip replacement, left Z96.642
== END 2024-06-18 13:09 | disposition home or self-care (01) ==
PROVIDERS: PCP Family Medicine; Visit Provider Orthopaedic Surgery
DX: Z47.89 Encounter for other orthopedic aftercare (principal); Z96.642 Presence of left artificial hip joint
CPT/HCPCS: 99214

== ENCOUNTER → 2024-06-23 13:07 | Outpatient (BNVA) | payer MEDICARE, OTHER, SELFPAY | PROVIDERS: PCP Family Medicine; Visit Provider Urology | DX: N31.9 Neuromuscular dysfunction of bladder, unspecified (principal); Z46.6 Encounter for fitting and adjustment of urinary device; Z93.50 Unspecified cystostomy status | CPT/HCPCS: 51705 ==

== ENCOUNTER 2024-06-24 13:30 | Outpatient (RCR) | payer MEDICARE, OTHER, SELFPAY ==
[2024-04-06 14:44] LABS: Glucose, Whole Blood 161 mg/dL (60-115)
== END 2024-06-24 14:32 | disposition home or self-care (01) ==
LOC: HO.CR 13:30
PROVIDERS: PCP Family Medicine; Visit Provider Physician Assistant Surgical
DX: I25.810 Atherosclerosis of coronary artery bypass graft(s) without angina pectoris (principal)
CPT/HCPCS: 82947; 93798

== ENCOUNTER 2024-06-26 13:32 | Outpatient (REF) | payer MEDICARE, OTHER, SELFPAY ==
--- NOTE | ~2024-06-26 | CT_ITS ---
EXAMINATION: CT HIP WITHOUT CONTRAST, LEFT CLINICAL INFORMATION: Left hip arthroplasty. Pain. COMPARISON: Multiple priors, most recent pelvic radiographs dated 06/18/2024 and 12/19/2023. TECHNIQUE: Multidetector volumetric imaging was obtained through the left hip without contrast material. Multiplanar reformatted images were submitted in coronal and sagittal planes. This CT examination was performed using dose optimization techniques as appropriate, variously including the following: *Automated exposure control *Adjustment of mA and/or kV according to patient size (this includes techniques or standardized protocols for targeted exams where dose is matched to indication/reason for exam; i.e. extremities or head) *Use of iterative reconstruction technique DLP: 412 mGy-cm FINDINGS: Redemonstration of a total left hip arthroplasty in unchanged anatomic alignment. A mildly displaced fracture through the medial most acetabular screw is redemonstrated with medial displacement measuring up to 0.1 cm, similar when compared to prior examinations. No new hardware fracture. No dislocation. The femoral head is well seated within the acetabular component. No evidence of asymmetric wear. Lucency is redemonstrated adjacent to the acetabular component measuring up to 0.6 cm anteriorly. This appears similar when compared to prior radiographs and could represent chronic hardware loosening. No perihardware lucency adjacent to the femoral component. No acute osseous fracture. No concerning lytic or blastic osseous lesion. Moderate osteoarthritis redemonstrated at the symphysis pubis. No large left hip joint effusion, however, evaluation limited due to streak artifact. No soft tissue mass or organized fluid collection. Atherosclerotic calcifications. Sigmoid diverticulosis without evidence of acute diverticulitis. The visualized muscles and tendons are grossly intact, however, evaluation is limited on CT examination. CT/CT hip LT wo IV con IMPRESSION: 1. Redemonstration of a total left hip arthroplasty in unchanged anatomic alignment. A mildly displaced fracture through the medial most acetabular screw is redemonstrated, similar when compared to prior examinations. No new hardware fracture. No dislocation. 2. Lucency adjacent to the acetabular component, similar when compared to prior radiographs and could represent chronic hardware loosening. 3. No acute osseous fracture. Electronically signed by: Lc Damian MD 07/07/2024 06:46 AM EDT
[2024-06-26 13:51] LABS: MANUAL DIFF FLAG NO
[2024-06-26 14:25] LABS: Basophils Absolute Auto 0.1 X10*3/uL (0.0-0.2); Basophils Percent Auto 0.6 % (0-2); Eosinophils Absolute Auto 0.2 X10*3/uL (0.0-0.4); Hematocrit 34.3 % (37.0-47.0); Imm Gran Abs Auto 0.21 X10*3/uL (0.00-0.03); Imm Gran Pct Auto 2.1 % (0.0-0.4); Lymphocytes Absolute Auto 2.7 X10*3/uL (1.2-4.9); Lymphocytes Percent Auto 26.9 % (20-40); Mean Corpuscular HGB Conc 32.1 g/dl (31.0-35.0); Mean Corpuscular Hemoglobin 29.3 pg (27.0-33.0); Mean Corpuscular Volume 91.5 fL (80.0-98.0); Mean Platelet Volume 12.1 fL (9.4-12.3); Monocytes Absolute Auto 0.9 X10*3/uL (0.1-1.2); Monocytes Percent Auto 9.3 % (2-11); Neutrophils Absolute Auto 5.8 x10*3/uL (2.0-8.3); Neutrophils Percent Auto 59.1 % (45-73); Platelet Count 146 X10*3/uL (160-400); Red Blood Count 3.75 X10*6/uL (4.20-5.50); Red Cell Distribution Width 15.8 % (11.0-16.0); White Blood Count 9.9 X10*3/uL (4.8-10.8)
[2024-06-26 15:21] LABS: C Reactive Protein 0.75 mg/dL (< or = 0.50)
[2024-06-26 17:10] LABS: Erythrocyte Sedimentation Rate 23 MM/HR (0-20)
== END 2024-06-26 13:33 | disposition home or self-care (01) ==
LOC: HO.CT 13:32
PROVIDERS: PCP Family Medicine; Visit Provider Orthopaedic Surgery
DX: Z96.642 Presence of left artificial hip joint (principal)
CPT/HCPCS: 36415; 73700; 85025; 85652; 86140

== ENCOUNTER 2024-07-06 10:20 | Outpatient (REF) | payer MEDICARE, OTHER, SELFPAY ==
[2024-07-06 12:57] VITALS: BP 186/79; PULSE 57; RESP 16; TEMP 36.1; O2SAT 95; BMI 32.6
== END 2024-07-06 10:21 | disposition home or self-care (01) ==
LOC: HO.MS 10:20
PROVIDERS: PCP Family Medicine; Visit Provider Ophthalmology
PROC: (CPT 66821; principal; 2024-07-06 13:40)
DX: H26.492 Other secondary cataract, left eye (principal); I10 Essential (primary) hypertension; E11.9 Type 2 diabetes mellitus without complications; Z79.899 Other long term (current) drug therapy
CPT/HCPCS: 66821; 87086; 87088; 87186

== ENCOUNTER 2024-07-13 13:35 | Outpatient (REF) | payer MEDICARE, OTHER, SELFPAY | END 2024-07-13 13:36 | disposition home or self-care (01) | LOC: HO.MAMMO 13:35 | PROVIDERS: PCP Family Medicine; Referring Provider Internal Medicine Medical Oncology; Visit Provider Family Medicine | DX: Z13.89 Encounter for screening for other disorder (principal) ==

== ENCOUNTER → 2024-07-14 13:00 | Outpatient (BNVA) | payer MEDICARE, OTHER, SELFPAY | PROVIDERS: PCP Family Medicine; Visit Provider Urology | DX: N31.9 Neuromuscular dysfunction of bladder, unspecified (principal); Z46.6 Encounter for fitting and adjustment of urinary device | CPT/HCPCS: 51705 ==

== ENCOUNTER 2024-07-18 10:00 | Outpatient (RCR) | payer MEDICARE, OTHER, SELFPAY ==
--- NOTE | 2024-07-08 15:15 | HO.INF ---
dosing to be determined by pharmacist
[2024-07-09 10:04] VITALS: BMI 33.3
[2024-07-09 10:06] VITALS: BP 143/51; PULSE 60; TEMP 36.6; O2SAT 96
--- NOTE | 2024-07-09 10:40 | HO.INF ---
labs drawn off r chest port by this rn and handed to phlebotomy
[2024-07-09 11:12] LABS: Blood Urea Nitrogen 22 mg/dL (9-16); Creatinine Clr Calc Pharmacy 34.9; Estimated Glomerular Filt Rate 35
[2024-07-09] MEDS: vancomycin HCL 1,000 MG in 0.9 % Sodium Chloride 250 ML 270 MG IV (11:37)
[2024-07-09] MEDS: Heparin Sodium,Porcine Flush 50 UNITS, 0.9 % Sodium Chloride Flush 5 ML IVFLUSH (12:40)
[2024-07-10 10:03] VITALS: BP 146/56; PULSE 66; TEMP 36.6; O2SAT 95
[2024-07-10] MEDS: vancomycin HCL 1,000 MG in 0.9 % Sodium Chloride 250 ML 270 MG IV (10:11)
[2024-07-10] MEDS: Heparin Sodium,Porcine Flush 50 UNITS, 0.9 % Sodium Chloride Flush 5 ML IVFLUSH (11:32)
[2024-07-11 10:04] VITALS: BP 161/41; PULSE 65; RESP 16; TEMP 36; O2SAT 97
[2024-07-11] MEDS: vancomycin HCL 1,000 MG in 0.9 % Sodium Chloride 250 ML 270 MG IV (10:31)
[2024-07-11] MEDS: Heparin Sodium,Porcine Flush 50 UNITS, 0.9 % Sodium Chloride Flush 5 ML IVFLUSH (11:29)
[2024-07-11] MEDS: 0.9 % Sodium Chloride Flush 10 ML SYRINGE 5 ML IVFLUSH (11:35)
[2024-07-12 09:35] VITALS: BP 182/67; PULSE 68; RESP 16; TEMP 36.2; O2SAT 96
[2024-07-12 10:22] LABS: Creatinine Clr Calc Pharmacy 35.4; Estimated Glomerular Filt Rate 36
[2024-07-12] MEDS: vancomycin HCL 1,250 MG in 0.9 % Sodium Chloride 250 ML 166.67 MG IV (10:51)
[2024-07-12 11:54] VITALS: BP 159/52
[2024-07-12] MEDS: 0.9 % Sodium Chloride Flush 10 ML SYRINGE 5 ML IVFLUSH (12:24)
[2024-07-13 10:35] VITALS: BP 159/49; PULSE 63; RESP 14; TEMP 36.8; O2SAT 98
[2024-07-13] MEDS: vancomycin HCL 1,250 MG in 0.9 % Sodium Chloride 250 ML 166.67 MG IV (11:28)
[2024-07-13] MEDS: Heparin Sodium,Porcine Flush 50 UNITS, 0.9 % Sodium Chloride Flush 5 ML IVFLUSH (13:14)
[2024-07-14 09:37] VITALS: BP 158/56; PULSE 66; RESP 16; TEMP 36.9; O2SAT 95
--- NOTE | 2024-07-14 09:47 | HO.INF ---
vanco trough drawn off r chest port and handed to phlebotomy. awaiting result.
[2024-07-14 10:22] LABS: Vancomycin Random 14.2 mcg/mL (15-20)
[2024-07-14] MEDS: vancomycin HCL 1,250 MG in 0.9 % Sodium Chloride 250 ML 166.67 MG IV (10:35)
[2024-07-14] MEDS: Heparin Sodium,Porcine Flush 50 UNITS, 0.9 % Sodium Chloride Flush 5 ML IVFLUSH (12:10)
[2024-07-15 07:14] VITALS: BP 176/66; PULSE 72; RESP 16; TEMP 36.6; O2SAT 97
[2024-07-15] MEDS: vancomycin HCL 1,250 MG in 0.9 % Sodium Chloride 250 ML 166.7 MG IV (07:21)
[2024-07-15] MEDS: Heparin Sodium,Porcine Flush 50 UNITS, 0.9 % Sodium Chloride Flush 5 ML IVFLUSH (08:58)
[2024-07-16 10:00] VITALS: BP 141/52; PULSE 63; RESP 18; TEMP 36.6
[2024-07-16] MEDS: vancomycin HCL 1,250 MG in 0.9 % Sodium Chloride 250 ML 166.6 MG IV (10:21)
[2024-07-16] MEDS: Heparin Sodium,Porcine Flush 50 UNITS, 0.9 % Sodium Chloride Flush 5 ML IVFLUSH (11:53)
[2024-07-17 09:50] VITALS: BP 154/53; PULSE 64; RESP 16; TEMP 36.3; O2SAT 96
--- NOTE | 2024-07-17 10:13 | HO.INF ---
candelarioo level drawn off r chest port and handed to phlebotomy
[2024-07-17 10:47] LABS: Vancomycin Random 15.3 mcg/mL (15-20)
[2024-07-17 10:48] LABS: Estimated Glomerular Filt Rate 33
[2024-07-17] MEDS: vancomycin HCL 1,250 MG in 0.9 % Sodium Chloride 250 ML 166.7 MG IV (11:06)
[2024-07-17] MEDS: Heparin Sodium,Porcine Flush 50 UNITS, 0.9 % Sodium Chloride Flush 5 ML IVFLUSH (12:39)
[2024-07-18 10:02] VITALS: BP 158/56; PULSE 66; RESP 18; TEMP 36.1; O2SAT 96
[2024-07-18] MEDS: vancomycin HCL 1,250 MG in 0.9 % Sodium Chloride 250 ML 166.7 MG IV (10:08)
[2024-07-18] MEDS: Heparin Sodium,Porcine Flush 50 UNITS, 0.9 % Sodium Chloride Flush 5 ML IVFLUSH (11:43)
== END 2024-07-20 07:58 | disposition home or self-care (01) ==
LOC: HO.INF 10:00
PROVIDERS: PCP Family Medicine; Visit Provider Urology
DX: N39.0 Urinary tract infection, site not specified (principal)
CPT/HCPCS: 36415; 80202; 82565; 84520; 96365; 96366; 96374; J1642; J3370; J3371

== ENCOUNTER 2024-07-20 | Outpatient (REF) | payer MEDICARE, OTHER, SELFPAY ==
--- OUTSIDE RECORDS SUMMARY | 2024-08-31 10:28 | XMS_ITS | Continuity of Care Document ---
Author Organization [facility] [address] [place] [address] Phone [phone] Social History Type Date Description Comments Sex [...]
--- OUTSIDE RECORDS SUMMARY | 2024-08-31 10:29 | XMS_ITS | Clinical Summary ---
Author Organization Unknown Care Team Providers [facility] Worker Name Role Phone MELANIA RAUSCH, ELLEN Unavailable Unavailable TOMY MC, JOSE Unavailable Unavailable Payers Payer Name Policy Type Policy Number Effective Date Expira tion Date MEDICARE - NGS [place] - PDGM [id number] Problems Condition Name Condition Details Condition Category Status Onset Date Resolution Date Last Treatment Date Treating Clinician Comments ENCNTR FOR SURGICAL AFTCR FOLLOWING SURGERY ON THE CIRC SYS Active 02-04 00:00: 00 TYPE 2 DIABETES MELLITUS WITHOUT COMPLICATION S Active 02-04 00:00: 00 PAROXYSMAL ATRIAL FIBRILLATION Active 02-04 00:00: 00 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 Active 02-04 00:00: 00 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 Active 02-04 00:00: 00 MALIGNANT NEOPLASM OF UNSP SITE OF UNSPECIFIED FEMALE BREAST Active 02-04 00:00: 00 ANEMIA IN NEOPLASTIC DISEASE Active 02-04 00:00: 00 ATHSCL HEART DISEASE OF [place] CORONARY ARTERY W/O ANG PCTRS Active 02-04 [...] 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 Active 02-04 00:00: 00 FPC (CURRENT) USE OF ASPIRIN Active 02-04 00:00: 00 PHARMACY MANAGER (CURRENT) USE OF ORAL HYPOGLYCEMIC DRUGS [...] 2-17 00:00: 00 01-20 23:59 :00 No [id number] 1 tablet BEDTIME 1 tablet BEDTIME (route: oral) Med Classific ation: Cardiovas cular Therapy Agents pantoprazol e 40 mg tablet,sonia yed release 2- 00:00: 00 01-23 00:00 :00 No [id number] 1 tablet DAILY 1 tablet DAILY (route: oral) Med Classific ation: Gastroint estinal Therapy Agents nitrofurant oin monohydrate /macrocryst als 100 mg capsule 2-13 00:00: 00 11-01 23:59 :00 No [id number] 1 capsule TWICE A DAY FOR UTI FOR 10 DAYS 1 capsule TWICE A DAY FOR UTI FOR 10 DAYS (route: oral) Med Classific ation: Genitouri nary Therapy metformin 1,000 mg tablet - 00:00: 00 01-20 23:59 :00 No [id number] 1 tablet TWICE A DAY DIRECTED 1 tablet TWICE A DAY DIRECTED (route: oral) Med Classific ation: Endocrine amlodipine 10 mg tablet 11-15 00:00: 00 01-20 23:59 :00 No [id number] 1 tablet DAILY 1 tablet DAILY (route: oral) Med Classific ation: Cardiovas cular Therapy Agents ascorbic acid (vitamin C) 1,000 mg capsule 11-15 00:00: 00 01-20 23:59 :00 No [id number] 1 capsule DAILY 1 capsule DAILY (route: oral) Med Classific ation: Electroly te Balance-N utritiona l Products Aspirin Childrens 81 mg chewable tablet 11-15 00:00: 00 01-20 23:59 :00 No [id number] 1 tablet DAILY 1 tablet DAILY (route: oral) Med Classific ation: Hematolog ical Agents carvedilol 25 mg tablet - 00:00: 00 01-20 23:59 :00 No [id number] 1 tablet 2 TIMES DAILY 1 tablet 2 TIMES DAILY (route: oral) Med Classific ation: Cardiovas cular Therapy Agents citalopram 20 mg tablet - 00:00: 00 01-20 23:59 :00 No [id number] 1 tablet DAILY 1 tablet DAILY (route: oral) Med Classific ation: Central Nervous System Agents cyclobenzap rine 5 mg tablet 11-15 00:00: 00 01-20 23:59 :00 No [id number] 1 tablet BEDTIME 1 tablet BEDTIME (route: oral) Med Classific ation: Locomotor System duloxetine 60 mg capsule,del ayed release 11-15 00:00: 00 01-20 23:59 :00 No [id number] 1 capsule DAILY 1 capsule DAILY (route: oral) Med Classific ation: Central Nervous System Agents famotidine 40 mg tablet 11-15 00:00: 00 01-20 23:59 :00 No [id number] 1 tablet BEDTIME 1 tablet BEDTIME (route: oral) Med Classific ation: Gastroint estinal Therapy Agents ferrous sulfate 325 mg (65 mg iron) tablet 11-15 00:00: 00 01-20 23:59 :00 No [id number] 1 tablet DAILY 1 tablet DAILY (route: oral) Med Classific ation: Electroly te Balance-N utritiona l Products furosemide 40 mg tablet 11-15 00:00: 00 12-24 23:59 :00 No [id number] 1 tablet DAILY 1 tablet DAILY (route: oral) Med Classific ation: Cardiovas cular Therapy Agents hydralazine 25 mg tablet 11-15 00:00: 00 12-24 23:59 :00 No [id number] 1 tablet 3 TIMES DAILY 1 tablet 3 TIMES DAILY (route: oral) Med Classific ation: Cardiovas cular Therapy Agents Imbruvica 420 mg tablet 11-15 00:00: 00 01-20 23:59 :00 No [id number] 1 tablet DAILY 1 tablet DAILY (route: oral) Med Classific ation: Antineopl astics Imbruvica 420 mg tablet 11-15 00:00: 00 12-24 00:00 :00 No [id number] 1 tablet DAILY 1 tablet DAILY (route: oral) Med Classific ation: Antineopl astics Januvia 100 mg tablet 11-15 00:00: 00 12-24 23:59 :00 No [id number] 1 tablet DAILY 1 tablet DAILY (route: oral) Med Classific ation: Endocrine pregabalin 150 mg capsule 09 00:00: 00 01-20 23:59 :00 No [id number] 1 capsule 2 TIMES DAILY 1 capsule 2 TIMES DAILY (route: oral) Med Classific ation: Central Nervous System Agents Senna Lax 8.6 mg tablet 11-15 00:00: 00 01-20 23:59 :00 No [id number] 2 tablet BEDTIME 2 tablet BEDTIME (route: oral) Med Classific ation: Gastroint estinal Therapy Agents solifenacin 5 mg tablet 11-15 00:00: 00 01-23 00:00 :00 No [id number] 1 tablet DAILY 1 tablet DAILY (route: oral) Med Classific ation: Genitouri nary Therapy spironolact one 25 mg tablet 11-15 00:00: 00 01-20 23:59 :00 No [id number] 1 tablet DAILY 1 tablet DAILY (route: oral) Med Classific ation: Cardiovas cular Therapy Agents sulindac 150 mg tablet 11-15 00:00: 00 01-23 00:00 :00 No [id number] 1 tablet 2 TIMES DAILY 1 tablet 2 TIMES DAILY (route: oral) Med Classific ation: Analgesic , Anti-infl ammatory or Antipyret ic nitrofurant oin macrocrysta l 100 mg capsule 3-24 00:00: 00 12-24 23:59 :00 No [id number] 1 capsule 2 TIMES DAILY 1 capsule 2 TIMES DAILY (route: oral) Med Classific ation: Genitouri nary Therapy Macrobid 100 mg capsule 4-10 00:00: 00 12-24 23:59 :00 No [id number] 100 mg 2 TIMES DAILY 100 mg 2 TIMES DAILY (route: oral) Med Classific ation: Genitouri nary Therapy cefpodoxime 100 mg tablet 4-16 00:00: 00 12-25 23:59 :00 No [id number] 1 tablet 2 TIMES DAILY 1 tablet 2 TIMES DAILY (route: oral) Med Classific ation: Anti-Infe ctive Agents Citracal-D3 Maximum Plus 325 mg-12.5 mcg-2.75 mg tablet 12-24 00:00: 00 01-20 23:59 :00 No [id number] 1 tablet EVERY AM 1 tablet EVERY AM (route: oral) Med Classific ation: Electroly te Balance-N utritiona l Products magnesium oxide 500 mg capsule 12-24 00:00: 00 01-23 00:00 :00 No [id number] 1 capsule EVERY PM 1 capsule EVERY PM (route: oral) Med Classific ation: Electroly te Balance-N utritiona l Products Multiple Vitamins tablet 12-24 00:00: 00 01-20 23:59 :00 No [id number] 1 tablet EVERY AM 1 tablet EVERY AM (route: oral) Med Classific ation: Electroly te Balance-N utritiona l Products acetaminoph en 325 mg tablet 01-23 00:00: 00 01-20 23:59 :00 No [id number] 2 tablet EVERY 6 HOURS 2 tablet EVERY 6 HOURS (route: oral) Med Classific ation: Analgesic , Anti-infl ammatory or Antipyret ic coenzyme Q10 100 mg capsule 01-23 00:00: 00 01-20 23:59 :00 No [id number] 1 capsule BEDTIME 1 capsule BEDTIME (route: oral) Med Classific ation: Alternati ve Therapy docusate sodium 100 mg capsule 01-22 00:00: 00 01-20 23:59 :00 No [id number] 1 capsule 2 TIMES DAILY 1 capsule 2 TIMES DAILY (route: oral) Med Classific ation: Gastroint estinal Therapy Agents enoxaparin 40 mg/0.4 mL subcutaneou s syringe 01-23 00:00: 00 02-07 23:59 :00 No [id number] 0.4 mL DAILY 0.4 mL DAILY (route: subcutaneo us) Med Classific ation: Hematolog ical Agents furosemide 20 mg tablet 01-22 00:00: 00 01-20 23:59 :00 No [id number] 1 tablet DAILY 1 tablet DAILY (route: oral) Med Classific ation: Cardiovas cular Therapy Agents magnesium oxide 400 mg (241.3 mg magnesium) tablet 01-23 00:00: 00 01-20 23:59 :00 No [id number] 1 tablet BEDTIME 1 tablet BEDTIME (route: oral) Med Classific ation: Electroly te Balance-N utritiona l Products omeprazole 20 mg tablet,sonia yed release 01-22 00:00: 00 01-20 23:59 :00 No [id number] 1 tablet DAILY 1 tablet DAILY (route: oral) Med Classific ation: Gastroint estinal Therapy Agents oxycodone 5 mg tablet 01-22 00:00: 00 01-20 23:59 :00 No [id number] 1 tablet EVERY 4 HOURS 1 tablet EVERY 4 HOURS (route: oral) Med Classific ation: Analgesic , Anti-infl ammatory or Antipyret ic oxycodone ER 10 mg tablet,vanda h resistant,e xtended release 12 hr 01-23 00:00: 00 01-20 23:59 :00 No [id number] 1 tablet EVERY 12 HOURS 1 tablet EVERY 12 HOURS (route: oral) Med Classific ation: Analgesic , Anti-infl ammatory or Antipyret ic polyethylen e glycol 3350 17 gram/dose oral powder 01-22 00:00: 00 01-20 23:59 :00 No [id number] 17 gram DAILY 17 gram DAILY (route: oral) Med Classific ation: Gastroint estinal Therapy Agents fluconazole 150 mg tablet 01-28 00:00: 00 01-20 23:59 :00 No [id number] 1 tablet DIRECTED 1 tablet DIRECTED (route: oral) Med Classific ation: Anti-Infe ctive Agents fluconazole 150 mg tablet 01-16 00:00: 00 02-04 23:59 :00 No [id number] Per instruc tions EVERY 3 DAYS FOR YEAST INFECTION FOR 6 DAYS Per instructio ns EVERY 3 DAYS FOR YEAST INFECTION FOR 6 DAYS (route: oral) Med Classific ation: Anti-Infe ctive Agents duloxetine 60 mg capsule,del ayed release 01-08 00:00: 00 Yes [id number] Per instruc tions EVERY DAY Per instructio ns EVERY DAY (route: oral) Med Classific ation: Central Nervous System Agents pantoprazol e 40 mg tablet,sonia yed release 01-07 00:00: 00 Yes [id number] Per instruc tions TWICE A DAY Per instructio ns TWICE A DAY (route: oral) Med Classific ation: Gastroint estinal Therapy Agents amlodipine 10 mg tablet 01-05 00:00: 00 02-04 23:59 :00 No [id number] Per instruc tions EVERY DAY Per instructio ns EVERY DAY (route: oral) Med Classific ation: Cardiovas cular Therapy Agents metformin 1,000 mg tablet 01-04 00:00: 00 02-04 23:59 :00 No [id number] Per instruc tions TWICE A DAY DIRECTED Per instructio ns TWICE A DAY DIRECTED (route: oral) Med Classific ation: Endocrine pregabalin 150 mg capsule 12-23 00:00: 00 Yes [id number] Per instruc tions 2 (TWO) TIMES A DAY Per instructio ns 2 (TWO) TIMES A DAY (route: oral) Med Classific ation: Central Nervous System Agents acetaminoph en 325 mg tablet 02-04 00:00: 00 Yes [id number] 1 tablet EVERY 6 HOURS 1 tablet EVERY 6 HOURS (route: oral) Med Classific ation: Analgesic , Anti-infl ammatory or Antipyret ic amiodarone 200 mg tablet 02-04 00:00: 00 02-12 23:59 :00 No [id number] 1 tablet 2 TIMES DAILY 1 tablet 2 TIMES DAILY (route: oral) Med Classific ation: Cardiovas cular Therapy Agents amlodipine 5 mg tablet 02-04 00:00: 00 Yes [id number] 1 tablet DAILY 1 tablet DAILY (route: oral) Med Classific ation: Cardiovas cular Therapy Agents ascorbic acid (vitamin C) 500 mg tablet 02-04 00:00: 00 Yes [id number] 1 tablet 2 TIMES DAILY 1 tablet 2 TIMES DAILY (route: oral) Med Classific ation: Electroly te Balance-N utritiona l Products aspirin 81 mg tablet,sonia yed release 02-04 00:00: 00 Yes [id number] 1 tablet DAILY 1 tablet DAILY (route: oral) Med Classific ation: Hematolog ical Agents atorvastati n 80 mg tablet 02-04 00:00: 00 Yes [id number] 1 tablet DIRECTED 1 tablet DIRECTED (route: oral) Med Classific ation: Cardiovas cular Therapy Agents cholecalcif tiera (vitamin D3) 10 mcg (400 unit) capsule 02-04 00:00: 00 Yes [id number] 1 capsule DAILY 1 capsule DAILY (route: oral) Med Classific ation: Electroly te Balance-N utritiona l Products citalopram 20 mg tablet 02-04 00:00: 00 Yes [id number] 1 tablet DAILY 1 tablet DAILY (route: oral) Med Classific ation: Central Nervous System Agents furosemide 40 mg tablet 02-04 00:00: 00 02-12 23:59 :00 No [id number] 1 tablet 2 TIMES DAILY 1 tablet 2 TIMES DAILY (route: oral) Med Classific ation: Cardiovas cular Therapy Agents Humalog KwikPen (U-100) Insulin 100 unit/mL subcutaneou s 02-04 00:00: 00 Yes [id number] Per instruc tions DIRECTED Per instructio ns DIRECTED (route: subcutaneo us) Med Classific ation: Endocrine Imbruvica 140 mg tablet 02-04 00:00: 00 Yes [id number] 1 tablet DAILY 1 tablet DAILY (route: oral) Med Classific ation: Antineopl astics insulin glargine (U-100) 100 unit/mL (3 mL) subcutaneou s pen 02-04 00:00: 00 Yes [id number] 19 unit DIRECTED 19 unit DIRECTED (route: subcutaneo us) Med Classific ation: Endocrine insulin lispro (U-100) 100 unit/mL subcutaneou s pen 02-04 00:00: 00 Yes [id number] 8 unit DIRECTED 8 unit DIRECTED (route: subcutaneo us) Med Classific ation: Endocrine metformin 500 mg tablet 02-04 00:00: 00 Yes [id number] 1 tablet 2 TIMES DAILY 1 tablet 2 TIMES DAILY (route: oral) Med Classific ation: Endocrine metoprolol succinate ER 25 mg tablet,exte nded release 24 hr 02-04 00:00: 00 Yes [id number] Per instruc tions DAILY Per instructio ns DAILY (route: oral) Med Classific ation: Cardiovas cular Therapy Agents Aldactone 25 mg tablet 02-16 00:00: 00 Yes [id number] 25 mg DAILY 25 mg DAILY (route: [...] DRY CLEAN GAUZE, LEAVE OPEN TO AIR. PATIENT/COAT FINISHER WILL PERFORM THIS TWICE DAILY BETWEEN NURSING [...] DRY CLEAN GAUZE, LEAVE OPEN TO AIR. PATIENT/COAT FINISHER WILL PERFORM THIS TWICE DAILY BETWEEN NURSING [...] BLOCKAGE/LEAKAGE, HEAVY SEDIMENT. 1 - 3 PRN LONGTERM VISITS FOR CATHETER CHANGE(S) AND/OR TROUBLESHOOTING. [code = SKILLED NURSE TO INSTRUCT PATIENT/CAREGIVER ON CARE AND MANAGEMENT OF SUPRAPUBIC CATHETER. SKILLED NURSE FOR SUPRAPUBIC CATHETER INSERTION/MAINTENANCE UTILIZING 18 FR 10 ML BALLOON, CHANGE Q 4 WEEKS AND PRN FOR LEAKING OR MALFUNCTIONING. IRRIGATE SUPRAPUBIC CATHETER WITH 30-60CC NORMAL SALINE PRN BLOCKAGE/LEAKAGE, HEAVY SEDIMENT. 1 - 3 PRN LONGTERM VISITS FOR CATHETER CHANGE(S) AND/OR TROUBLESHOOTING.] Goal 2024-03-04 Patient Goal - TO FEEL BOBBY R Goal Provider Goal - A PLAN OF CARE WILL BE ESTABLISHED THAT MEETS PATIENT'S LONGTERM NEEDS AND INCLUDES PATIENT GOAL FOR HOME [...] End Date/Time Encounter Type Admission Type Attending [facility] Care Department Encounter ID Discharge Date Discharge Status Discharge Condition Discharge Reason Percent Goals Met 2024-02-05 00:00:00 2024-03-04 00:00:00 Outpatient JOSE ROSA [facility] [id number] 2024-03-04 00:00:00 DISCHARGE TO HOME OR SELF CARE INDEPENDEN T IN THE COMMUNITY NO LONGER HOMEBOUND ( ONLY) 47.62
--- OUTSIDE RECORDS SUMMARY | 2024-08-31 10:29 | XMS_ITS | Clinical Summary ---
Author Organization Unknown Care Team Providers Care Spoon Maker Name Role Phone MELANIA RAUSCH, ELLEN Unavailable Unavailable TOMY MC, JOSE Unavailable Unavailable Payers Payer Name Policy Type Policy Number Effective Date Expira tion Date MEDICARE - NGS [place] - PDGM [id number] Problems Condition Name Condition Details Condition Category Status Onset Date Resolution Date Last Treatment Date Treating Clinician Comments ENCNTR FOR SURGICAL AFTCR FOLLOWING SURGERY ON THE CIRC SYS Active 02-04 00:00: 00 TYPE 2 DIABETES MELLITUS WITHOUT COMPLICATION S Active 02-04 00:00: 00 PAROXYSMAL ATRIAL FIBRILLATION Active 02-04 00:00: 00 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 Active 02-04 00:00: 00 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 Active 02-04 00:00: 00 MALIGNANT NEOPLASM OF UNSP SITE OF UNSPECIFIED FEMALE BREAST Active 02-04 00:00: 00 ANEMIA IN NEOPLASTIC DISEASE Active 02-04 00:00: 00 ATHSCL HEART DISEASE OF [place] CORONARY ARTERY W/O ANG PCTRS Active 02-04 [...] USE OF ASPIRIN Active 02-04 00:00: 00 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 (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) USE OF ORAL HYPOGLYCEMIC DRUGS [...] 2-17 00:00: 00 01-20 23:59 :00 No [id number] 1 tablet BEDTIME 1 tablet BEDTIME (route: oral) Med Classific ation: Cardiovas cular Therapy Agents pantoprazol e 40 mg tablet,sonia yed release 2- 00:00: 00 01-23 00:00 :00 No [id number] 1 tablet DAILY 1 tablet DAILY (route: oral) Med Classific ation: Gastroint estinal Therapy Agents nitrofurant oin monohydrate /macrocryst als 100 mg capsule 2-13 00:00: 00 11-01 23:59 :00 No [id number] 1 capsule TWICE A DAY FOR UTI FOR 10 DAYS 1 capsule TWICE A DAY FOR UTI FOR 10 DAYS (route: oral) Med Classific ation: Genitouri nary Therapy metformin 1,000 mg tablet - 00:00: 00 01-20 23:59 :00 No [id number] 1 tablet TWICE A DAY DIRECTED 1 tablet TWICE A DAY DIRECTED (route: oral) Med Classific ation: Endocrine amlodipine 10 mg tablet 11-15 00:00: 00 01-20 23:59 :00 No [id number] 1 tablet DAILY 1 tablet DAILY (route: oral) Med Classific ation: Cardiovas cular Therapy Agents ascorbic acid (vitamin C) 1,000 mg capsule 11-15 00:00: 00 01-20 23:59 :00 No [id number] 1 capsule DAILY 1 capsule DAILY (route: oral) Med Classific ation: Electroly te Balance-N utritiona l Products Aspirin Childrens 81 mg chewable tablet 11-15 00:00: 00 01-20 23:59 :00 No [id number] 1 tablet DAILY 1 tablet DAILY (route: oral) Med Classific ation: Hematolog ical Agents carvedilol 25 mg tablet - 00:00: 00 01-20 23:59 :00 No [id number] 1 tablet 2 TIMES DAILY 1 tablet 2 TIMES DAILY (route: oral) Med Classific ation: Cardiovas cular Therapy Agents citalopram 20 mg tablet - 00:00: 00 01-20 23:59 :00 No [id number] 1 tablet DAILY 1 tablet DAILY (route: oral) Med Classific ation: Central Nervous System Agents cyclobenzap rine 5 mg tablet 11-15 00:00: 00 01-20 23:59 :00 No [id number] 1 tablet BEDTIME 1 tablet BEDTIME (route: oral) Med Classific ation: Locomotor System duloxetine 60 mg capsule,del ayed release 11-15 00:00: 00 01-20 23:59 :00 No [id number] 1 capsule DAILY 1 capsule DAILY (route: oral) Med Classific ation: Central Nervous System Agents famotidine 40 mg tablet 11-15 00:00: 00 01-20 23:59 :00 No [id number] 1 tablet BEDTIME 1 tablet BEDTIME (route: oral) Med Classific ation: Gastroint estinal Therapy Agents ferrous sulfate 325 mg (65 mg iron) tablet 11-15 00:00: 00 01-20 23:59 :00 No [id number] 1 tablet DAILY 1 tablet DAILY (route: oral) Med Classific ation: Electroly te Balance-N utritiona l Products furosemide 40 mg tablet 11-15 00:00: 00 12-24 23:59 :00 No [id number] 1 tablet DAILY 1 tablet DAILY (route: oral) Med Classific ation: Cardiovas cular Therapy Agents hydralazine 25 mg tablet 11-15 00:00: 00 12-24 23:59 :00 No [id number] 1 tablet 3 TIMES DAILY 1 tablet 3 TIMES DAILY (route: oral) Med Classific ation: Cardiovas cular Therapy Agents Imbruvica 420 mg tablet 11-15 00:00: 00 01-20 23:59 :00 No [id number] 1 tablet DAILY 1 tablet DAILY (route: oral) Med Classific ation: Antineopl astics Imbruvica 420 mg tablet 11-15 00:00: 00 12-24 00:00 :00 No [id number] 1 tablet DAILY 1 tablet DAILY (route: oral) Med Classific ation: Antineopl astics Januvia 100 mg tablet 11-15 00:00: 00 12-24 23:59 :00 No [id number] 1 tablet DAILY 1 tablet DAILY (route: oral) Med Classific ation: Endocrine pregabalin 150 mg capsule 09 00:00: 00 01-20 23:59 :00 No [id number] 1 capsule 2 TIMES DAILY 1 capsule 2 TIMES DAILY (route: oral) Med Classific ation: Central Nervous System Agents Senna Lax 8.6 mg tablet 11-15 00:00: 00 01-20 23:59 :00 No [id number] 2 tablet BEDTIME 2 tablet BEDTIME (route: oral) Med Classific ation: Gastroint estinal Therapy Agents solifenacin 5 mg tablet 11-15 00:00: 00 01-23 00:00 :00 No [id number] 1 tablet DAILY 1 tablet DAILY (route: oral) Med Classific ation: Genitouri nary Therapy spironolact one 25 mg tablet 11-15 00:00: 00 01-20 23:59 :00 No [id number] 1 tablet DAILY 1 tablet DAILY (route: oral) Med Classific ation: Cardiovas cular Therapy Agents sulindac 150 mg tablet 11-15 00:00: 00 01-23 00:00 :00 No [id number] 1 tablet 2 TIMES DAILY 1 tablet 2 TIMES DAILY (route: oral) Med Classific ation: Analgesic , Anti-infl ammatory or Antipyret ic nitrofurant oin macrocrysta l 100 mg capsule 3-24 00:00: 00 12-24 23:59 :00 No [id number] 1 capsule 2 TIMES DAILY 1 capsule 2 TIMES DAILY (route: oral) Med Classific ation: Genitouri nary Therapy Macrobid 100 mg capsule 4-10 00:00: 00 12-24 23:59 :00 No [id number] 100 mg 2 TIMES DAILY 100 mg 2 TIMES DAILY (route: oral) Med Classific ation: Genitouri nary Therapy cefpodoxime 100 mg tablet 4-16 00:00: 00 12-25 23:59 :00 No [id number] 1 tablet 2 TIMES DAILY 1 tablet 2 TIMES DAILY (route: oral) Med Classific ation: Anti-Infe ctive Agents Citracal-D3 Maximum Plus 325 mg-12.5 mcg-2.75 mg tablet 12-24 00:00: 00 01-20 23:59 :00 No [id number] 1 tablet EVERY AM 1 tablet EVERY AM (route: oral) Med Classific ation: Electroly te Balance-N utritiona l Products magnesium oxide 500 mg capsule 12-24 00:00: 00 01-23 00:00 :00 No [id number] 1 capsule EVERY PM 1 capsule EVERY PM (route: oral) Med Classific ation: Electroly te Balance-N utritiona l Products Multiple Vitamins tablet 12-24 00:00: 00 01-20 23:59 :00 No [id number] 1 tablet EVERY AM 1 tablet EVERY AM (route: oral) Med Classific ation: Electroly te Balance-N utritiona l Products acetaminoph en 325 mg tablet 01-23 00:00: 00 01-20 23:59 :00 No [id number] 2 tablet EVERY 6 HOURS 2 tablet EVERY 6 HOURS (route: oral) Med Classific ation: Analgesic , Anti-infl ammatory or Antipyret ic coenzyme Q10 100 mg capsule 01-23 00:00: 00 01-20 23:59 :00 No [id number] 1 capsule BEDTIME 1 capsule BEDTIME (route: oral) Med Classific ation: Alternati ve Therapy docusate sodium 100 mg capsule 01-22 00:00: 00 01-20 23:59 :00 No [id number] 1 capsule 2 TIMES DAILY 1 capsule 2 TIMES DAILY (route: oral) Med Classific ation: Gastroint estinal Therapy Agents enoxaparin 40 mg/0.4 mL subcutaneou s syringe 01-23 00:00: 00 02-07 23:59 :00 No [id number] 0.4 mL DAILY 0.4 mL DAILY (route: subcutaneo us) Med Classific ation: Hematolog ical Agents furosemide 20 mg tablet 01-22 00:00: 00 01-20 23:59 :00 No [id number] 1 tablet DAILY 1 tablet DAILY (route: oral) Med Classific ation: Cardiovas cular Therapy Agents magnesium oxide 400 mg (241.3 mg magnesium) tablet 01-23 00:00: 00 01-20 23:59 :00 No [id number] 1 tablet BEDTIME 1 tablet BEDTIME (route: oral) Med Classific ation: Electroly te Balance-N utritiona l Products omeprazole 20 mg tablet,sonia yed release 01-22 00:00: 00 01-20 23:59 :00 No [id number] 1 tablet DAILY 1 tablet DAILY (route: oral) Med Classific ation: Gastroint estinal Therapy Agents oxycodone 5 mg tablet 01-22 00:00: 00 01-20 23:59 :00 No [id number] 1 tablet EVERY 4 HOURS 1 tablet EVERY 4 HOURS (route: oral) Med Classific ation: Analgesic , Anti-infl ammatory or Antipyret ic oxycodone ER 10 mg tablet,vanda h resistant,e xtended release 12 hr 01-23 00:00: 00 01-20 23:59 :00 No [id number] 1 tablet EVERY 12 HOURS 1 tablet EVERY 12 HOURS (route: oral) Med Classific ation: Analgesic , Anti-infl ammatory or Antipyret ic polyethylen e glycol 3350 17 gram/dose oral powder 01-22 00:00: 00 01-20 23:59 :00 No [id number] 17 gram DAILY 17 gram DAILY (route: oral) Med Classific ation: Gastroint estinal Therapy Agents fluconazole 150 mg tablet 01-28 00:00: 00 01-20 23:59 :00 No [id number] 1 tablet DIRECTED 1 tablet DIRECTED (route: oral) Med Classific ation: Anti-Infe ctive Agents fluconazole 150 mg tablet 01-16 00:00: 00 02-04 23:59 :00 No [id number] Per instruc tions EVERY 3 DAYS FOR YEAST INFECTION FOR 6 DAYS Per instructio ns EVERY 3 DAYS FOR YEAST INFECTION FOR 6 DAYS (route: oral) Med Classific ation: Anti-Infe ctive Agents duloxetine 60 mg capsule,del ayed release 01-08 00:00: 00 Yes [id number] Per instruc tions EVERY DAY Per instructio ns EVERY DAY (route: oral) Med Classific ation: Central Nervous System Agents pantoprazol e 40 mg tablet,sonia yed release 01-07 00:00: 00 Yes [id number] Per instruc tions TWICE A DAY Per instructio ns TWICE A DAY (route: oral) Med Classific ation: Gastroint estinal Therapy Agents amlodipine 10 mg tablet 01-05 00:00: 00 02-04 23:59 :00 No [id number] Per instruc tions EVERY DAY Per instructio ns EVERY DAY (route: oral) Med Classific ation: Cardiovas cular Therapy Agents metformin 1,000 mg tablet 01-04 00:00: 00 02-04 23:59 :00 No [id number] Per instruc tions TWICE A DAY DIRECTED Per instructio ns TWICE A DAY DIRECTED (route: oral) Med Classific ation: Endocrine pregabalin 150 mg capsule 12-23 00:00: 00 Yes [id number] Per instruc tions 2 (TWO) TIMES A DAY Per instructio ns 2 (TWO) TIMES A DAY (route: oral) Med Classific ation: Central Nervous System Agents acetaminoph en 325 mg tablet 02-04 00:00: 00 Yes [id number] 1 tablet EVERY 6 HOURS 1 tablet EVERY 6 HOURS (route: oral) Med Classific ation: Analgesic , Anti-infl ammatory or Antipyret ic amiodarone 200 mg tablet 02-04 00:00: 00 02-12 23:59 :00 No [id number] 1 tablet 2 TIMES DAILY 1 tablet 2 TIMES DAILY (route: oral) Med Classific ation: Cardiovas cular Therapy Agents amlodipine 5 mg tablet 02-04 00:00: 00 Yes [id number] 1 tablet DAILY 1 tablet DAILY (route: oral) Med Classific ation: Cardiovas cular Therapy Agents ascorbic acid (vitamin C) 500 mg tablet 02-04 00:00: 00 Yes [id number] 1 tablet 2 TIMES DAILY 1 tablet 2 TIMES DAILY (route: oral) Med Classific ation: Electroly te Balance-N utritiona l Products aspirin 81 mg tablet,sonia yed release 02-04 00:00: 00 Yes [id number] 1 tablet DAILY 1 tablet DAILY (route: oral) Med Classific ation: Hematolog ical Agents atorvastati n 80 mg tablet 02-04 00:00: 00 Yes [id number] 1 tablet DIRECTED 1 tablet DIRECTED (route: oral) Med Classific ation: Cardiovas cular Therapy Agents cholecalcif tiera (vitamin D3) 10 mcg (400 unit) capsule 02-04 00:00: 00 Yes [id number] 1 capsule DAILY 1 capsule DAILY (route: oral) Med Classific ation: Electroly te Balance-N utritiona l Products citalopram 20 mg tablet 02-04 00:00: 00 Yes [id number] 1 tablet DAILY 1 tablet DAILY (route: oral) Med Classific ation: Central Nervous System Agents furosemide 40 mg tablet 02-04 00:00: 00 02-12 23:59 :00 No [id number] 1 tablet 2 TIMES DAILY 1 tablet 2 TIMES DAILY (route: oral) Med Classific ation: Cardiovas cular Therapy Agents Humalog KwikPen (U-100) Insulin 100 unit/mL subcutaneou s 02-04 00:00: 00 Yes [id number] Per instruc tions DIRECTED Per instructio ns DIRECTED (route: subcutaneo us) Med Classific ation: Endocrine Imbruvica 140 mg tablet 02-04 00:00: 00 Yes [id number] 1 tablet DAILY 1 tablet DAILY (route: oral) Med Classific ation: Antineopl astics insulin glargine (U-100) 100 unit/mL (3 mL) subcutaneou s pen 02-04 00:00: 00 Yes [id number] 19 unit DIRECTED 19 unit DIRECTED (route: subcutaneo us) Med Classific ation: Endocrine insulin lispro (U-100) 100 unit/mL subcutaneou s pen 02-04 00:00: 00 Yes [id number] 8 unit DIRECTED 8 unit DIRECTED (route: subcutaneo us) Med Classific ation: Endocrine metformin 500 mg tablet 02-04 00:00: 00 Yes [id number] 1 tablet 2 TIMES DAILY 1 tablet 2 TIMES DAILY (route: oral) Med Classific ation: Endocrine metoprolol succinate ER 25 mg tablet,exte nded release 24 hr 02-04 00:00: 00 Yes [id number] Per instruc tions DAILY Per instructio ns DAILY (route: oral) Med Classific ation: Cardiovas cular Therapy Agents Aldactone 25 mg tablet 02-16 00:00: 00 Yes [id number] 25 mg DAILY 25 mg DAILY (route: [...] DRY CLEAN GAUZE, LEAVE OPEN TO AIR. PATIENT/BOTTOM WHEELER WILL PERFORM THIS TWICE DAILY BETWEEN NURSING [...] DRY CLEAN GAUZE, LEAVE OPEN TO AIR. PATIENT/BOTTOM WHEELER WILL PERFORM THIS TWICE DAILY BETWEEN NURSING [...] BLOCKAGE/LEAKAGE, HEAVY SEDIMENT. 1 - 3 PRN NURSING HOME VISITS FOR CATHETER CHANGE(S) AND/OR TROUBLESHOOTING. [code = SKILLED NURSE TO INSTRUCT PATIENT/CAREGIVER ON CARE AND MANAGEMENT OF SUPRAPUBIC CATHETER. SKILLED NURSE FOR SUPRAPUBIC CATHETER INSERTION/MAINTENANCE UTILIZING 18 FR 10 ML BALLOON, CHANGE Q 4 WEEKS AND PRN FOR LEAKING OR MALFUNCTIONING. IRRIGATE SUPRAPUBIC CATHETER WITH 30-60CC NORMAL SALINE PRN BLOCKAGE/LEAKAGE, HEAVY SEDIMENT. 1 - 3 PRN NURSING HOME VISITS FOR CATHETER CHANGE(S) AND/OR TROUBLESHOOTING.] Goal 2024-03-04 Patient Goal - TO FEEL BOBBY R Goal Provider Goal - A PLAN OF CARE WILL BE ESTABLISHED THAT MEETS PATIENT'S NURSING HOME NEEDS AND INCLUDES PATIENT GOAL FOR HOME [...] End Date/Time Encounter Type Admission Type Attending [facility] Care Department Encounter ID Discharge Date Discharge Status Discharge Condition Discharge Reason Percent Goals Met 2024-02-05 00:00:00 2024-03-04 00:00:00 Outpatient [facility] [id number] 2024-03-04 00:00:00 DISCHARGE TO HOME OR SELF CARE INDEPENDEN T IN THE COMMUNITY NO LONGER HOMEBOUND ( ONLY) 47.62
== END 2024-07-20 00:01 | disposition home or self-care (01) ==
LOC: CF
PROVIDERS: PCP Family Medicine; Visit Provider Orthopaedic Surgery
DX: T84.031D Mechanical loosening of internal left hip prosthetic joint, subsequent encounter (principal)
CPT/HCPCS: 99212

== ENCOUNTER 2024-07-20 10:56 | Outpatient (AMB) | payer MEDICARE, OTHER, SELFPAY ==
--- NOTE | 2024-07-20 10:59 | MHC.OFFVIS ---
Intake Visit Reasons: OV - Left ANGELICA 01/08/23 - S/p Imaging Intake Note: Kaitlin is a 78 year old female who presents today for a follow up of her left hip s/p Left THA01/08/23. Patient has a broken acetabluar screw which causes concern for loosening. Labs done ruled out infection. Patient presents today to review CT Scan. Allergies amoxicillin [AMOXICILLIN] Allergy (Severe, Verified 06/30/24 13:49) stroke, blood clots ciprofloxacin [From CIPRO] Allergy (Severe, Verified 06/30/24 13:49) ANAPHYLAXIS Iodinated Contrast Media [IV DYE, IODINE CONTAINING CONTRAST ] Allergy (Severe, Verified 06/30/24 13:49) HIVES levofloxacin Allergy (Severe, Verified 06/30/24 13:49) Anaphylaxis liraglutide Allergy (Severe, Verified 06/30/24 13:49) Headache Penicillins Allergy (Severe, Verified 06/30/24 13:49) stroke, blood clots phenazopyridine [Pyridium] Allergy (Severe, Verified 06/30/24 13:49) Anaphylaxis FREYA Inhibitors Allergy (Intermediate, Verified 06/30/24 13:49) Cough ARB-Angiotensin Receptor Antagonist Allergy (Intermediate, Verified 06/30/24 13:49) Cough cefpodoxime Allergy (Intermediate, Verified 06/30/24 13:49) Dizziness, nausea doxazosin Allergy (Intermediate, Verified 06/30/24 13:49) Shortness of Breath fluticasone [Advair Diskus] Allergy (Intermediate, Verified 06/30/24 13:49) Anxiety gabapentin [From Neurontin] Allergy (Intermediate, Verified 06/30/24 13:49) Headache hydralazine Allergy (Intermediate, Verified 06/30/24 13:49) Shortness of Breath latex Allergy (Intermediate, Verified 06/30/24 13:49) Hives linezolid Allergy (Intermediate, Verified 06/30/24 13:49) Nausea and Vomiting meloxicam Allergy (Intermediate, Verified 06/30/24 13:49) Unknown salmeterol [Advair Diskus] Allergy (Intermediate, Verified 06/30/24 13:49) Anxiety Tetanus Vaccines and Toxoid Allergy (Intermediate, Verified 06/30/24 13:49) Swelling torsemide Allergy (Intermediate, Verified 06/30/24 13:49) Shortness of Breath cephalexin [Keflex] Allergy (Mild, Verified 06/30/24 13:49) Nausea HPI HPI OV - Left ANGELICA 01/08/23 - S/p Imaging: Details: Kaitlin is a 78 year old female who presents today for a follow up of her left hip s/p Left THA01/08/23. Patient has a broken acetabluar screw. Labs done ruled out infection. Patient presents today to review CT Scan. She continues to have pain with ambulation. She was doing well after the surgery until she fell and caught herself with her leg and since then she has been really unable to ambulate comfortably. Her care was delayed because of a need for cardiac surgery. She reports that she has been cleared by Cardiac surgery. She reports pain in her groin and difficulty ambulating. She uses a walker. [facility] Medical History Osteoarthritis Morbid obesity Allergy to multiple antibiotics Depression Arthritis of left hip Wears dentures Neurogenic urinary bladder disorder History of blood transfusion History of CVA (cerebrovascular accident) Seasonal allergies History of numbness PONV (postoperative nausea and vomiting) Self-catheterizes urinary bladder Diabetes with neurologic complications Type 2 diabetes mellitus with unspecified complications Anemia CLL (chronic lymphocytic leukemia) Sleep apnea Diabetes mellitus CLL (chronic lymphocytic leukemia) Arthritis Fibromyalgia Hypercholesterolemia Hypertension History of bilateral breast cancer Urinary retention with incomplete bladder emptying Surgical History History of open heart surgery History of total left hip replacement S/P Botox injection History of suprapubic catheter S/P left breast biopsy History of esophagogastroduodenoscopy (EGD) Hx of colonoscopy History of bladder repair surgery History of total hysterectomy S/P breast biopsy, right History of back surgery History of biopsy of bladder Family History Mother Breast cancer Father Heart disease Father Lung cancer Mother Colon cancer Brother Pancreatic cancer Social History Household Members: Spouse Housing: House Are you a primary career resource specialist to a significant other at home: No Do you presently have visiting nurse or other home services: Yes Alcohol intake: never Comment: patient refused telesiter,removed per pt request Patient Tobacco Use Status: Never used Tobacco Advance Directives Date on File: 07/30/23 service: No Current occupational status: retired Female Reproductive History Menstrual Age of Menarche: 15 Physical Exam Extrem Other: There is groin pain with hip range of motion. She has an antalgic gait Results Reviewed Results Reviewed: I personally reviewed relevant radiographs. CT/CT hip LT wo IV con IMPRESSION: 1. Redemonstration of a total left hip arthroplasty in unchanged anatomic alignment. A mildly displaced fracture through the medial most acetabular screw is redemonstrated, similar when compared to prior examinations. No new hardware fracture. No dislocation. 2. Lucency adjacent to the acetabular component, similar when compared to prior radiographs and could represent chronic hardware loosening. 3. No acute osseous fracture. 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 There is no evidence of infection. Her CRP and ESR from about 6 months ago when she was having severe pain were normal. She recently had an ESR and a CRP that were elevated in the presence of a urinary tract infection. That has since resolved. She states she has been cleared by Cardiology. Obviously we will need to have that formalize but at this point she does appear stable to undergo revision surgery for her left acetabulum. I reviewed the rationale for this and the radiographic and clinical evidence of loosening. I described to her the procedure and the risks, benefits and alternatives including, but not limited to, the risk of fracture, infection, re-injury, need for further surgery, cardiovascular complications associated with surgery. She expressed understanding and we will proceed forward accordingly. 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
== END 2024-07-20 11:43 | disposition home or self-care (01) ==
PROVIDERS: PCP Family Medicine; Visit Provider Orthopaedic Surgery
DX: T84.031A Mechanical loosening of internal left hip prosthetic joint, initial encounter (principal)
CPT/HCPCS: 99214

== ENCOUNTER 2024-07-29 12:22 | Outpatient (REF) | payer MEDICARE, OTHER, SELFPAY | END 2024-07-29 12:23 | disposition home or self-care (01) | LOC: HO.LNP 12:22 | PROVIDERS: Visit Provider Urology | DX: R39.9 Unspecified symptoms and signs involving the genitourinary system (principal) | CPT/HCPCS: 87086 ==

== ENCOUNTER 2024-07-31 14:18 | Outpatient (AMB) | payer MEDICARE, OTHER, SELFPAY ==
--- NOTE | 2024-07-31 14:20 | A.OFFVIS_ITS ---
Vital Signs 07/31/24 14:21 Height 5 ft 4 in Weight 199 lb 11.821 oz BMI 34.3 BP 142/64 H Blood Pressure Location Rt brachial Position Sitting Pulse 58 Pulse Source Pulse Oximeter Pulse Oximetry (%) 96 Oxygen Delivery Method Room Air Intake Visit Reasons: 3 month follow up Intake Note: Relevant Flags or Indicators ? Requires Power Generation Equipment Repairer? N Katilin presents in office today for a scheduled pre op appt post cardiac eval. CC; No recent labs, diagnostics, or med orders placed. ? Relevant GI Sx as reported per pt? Nausea + dry heaving ? Reflux ? Dysphagia o?? Constipation - Very mild, pt using miralax which they find to provide therapeutic relief. ? Abdominal Pain - epigastric. ? Bloating ? Hx of any recent surgeries? None. Power Generation Equipment Repairer Required: No Allergies amoxicillin [AMOXICILLIN] Allergy (Severe, Verified 07/31/24 14:21) stroke, blood clots ciprofloxacin [From CIPRO] Allergy (Severe, Verified 07/31/24 14:21) ANAPHYLAXIS Iodinated Contrast Media [IV DYE, IODINE CONTAINING CONTRAST ] Allergy (Severe, Verified 07/31/24 14:21) HIVES levofloxacin Allergy (Severe, Verified 07/31/24 14:21) Anaphylaxis liraglutide Allergy (Severe, Verified 07/31/24 14:21) Headache Penicillins Allergy (Severe, Verified 07/31/24 14:21) stroke, blood clots phenazopyridine [Pyridium] Allergy (Severe, Verified 07/31/24 14:21) Anaphylaxis FREYA Inhibitors Allergy (Intermediate, Verified 07/31/24 14:21) Cough ARB-Angiotensin Receptor Antagonist Allergy (Intermediate, Verified 07/31/24 14:21) Cough cefpodoxime Allergy (Intermediate, Verified 07/31/24 14:21) Dizziness, nausea doxazosin Allergy (Intermediate, Verified 07/31/24 14:21) Shortness of Breath fluticasone [Advair Diskus] Allergy (Intermediate, Verified 07/31/24 14:21) Anxiety gabapentin [From Neurontin] Allergy (Intermediate, Verified 07/31/24 14:21) Headache hydralazine Allergy (Intermediate, Verified 07/31/24 14:21) Shortness of Breath latex Allergy (Intermediate, Verified 07/31/24 14:21) Hives linezolid Allergy (Intermediate, Verified 07/31/24 14:21) Nausea and Vomiting meloxicam Allergy (Intermediate, Verified 07/31/24 14:21) Unknown salmeterol [Advair Diskus] Allergy (Intermediate, Verified 07/31/24 14:21) Anxiety Tetanus Vaccines and Toxoid Allergy (Intermediate, Verified 07/31/24 14:21) Swelling torsemide Allergy (Intermediate, Verified 07/31/24 14:21) Shortness of Breath cephalexin [Keflex] Allergy (Mild, Verified 07/31/24 14:21) Nausea HPI HPI 3 month follow up: Details: LAST VISIT: GERD (gastroesophageal reflux disease) IBS (irritable bowel syndrome) Nausea Screen for colon cancer Plan Patient will return to the office end of July. Continue current management with pantoprazole twice a day. Patient will continue taking MiraLax daily. Avoid dietary triggers and late night snacking. Staying upright for minimum 3 hours after meals discussed with patient. Message sent to infantry officer to inquire cardiac clearance before sending patient for procedure. Both patient and her are agreeable to plan of care and verbalizes understanding of instructions. They were given the opportunity to ask questions and all questions answered. TODAY'S VISIT: Patient is here today for follow-up. Patient reports that she continues to have postprandial abdominal bloating, occasional nausea and acid reflux. Currently patient is taking pantoprazole in the morning and famotidine at bedtime. Patient reports that she is feeling like it is not working that well. Patient reports that she is moving her bowels, however occasionally she will still feel constipated. Taking MiraLax on as needed basis. Patient denies any melena, hematochezia, unintentional weight loss or ribbon like stools. Patient denies dysphagia or odynophagia. She continues to go for IV antibiotics for frequent UTIs. Patient follows up with Urology on regular basis. Patient was seen by marketing planning manager on 05/15/2024 see note below: Per patient, still awaiting hip surgery as well as colonoscopy. I suggested to her that she can probably wait for at least about 6 months or so from time of coronary bypass and then proceed. Intermediate cardiac risk. She will contact the respective departments ? [facility] Medical History Osteoarthritis Morbid obesity Allergy to multiple antibiotics Depression Arthritis of left hip Wears dentures Neurogenic urinary bladder disorder History of blood transfusion History of CVA (cerebrovascular accident) Seasonal allergies History of numbness PONV (postoperative nausea and vomiting) Self-catheterizes urinary bladder Diabetes with neurologic complications Type 2 diabetes mellitus with unspecified complications Anemia CLL (chronic lymphocytic leukemia) Sleep apnea Diabetes mellitus CLL (chronic lymphocytic leukemia) Arthritis Fibromyalgia Hypercholesterolemia Hypertension History of bilateral breast cancer Urinary retention with incomplete bladder emptying Surgical History (Updated 07/31/24 @ 14:27 by MARCELINO Olivera) History of open heart surgery (~01/31/24) History of total left hip replacement S/P Botox injection History of suprapubic catheter S/P left breast biopsy History of esophagogastroduodenoscopy (EGD) Hx of colonoscopy History of bladder repair surgery History of total hysterectomy S/P breast biopsy, right History of back surgery History of biopsy of bladder Family History Mother Breast cancer Father Heart disease Father Lung cancer Mother Colon cancer Brother Pancreatic cancer Social History Household Members: Spouse Housing: House Are you a primary customer care professional to a significant other at home: No Do you presently have visiting nurse or other home services: Yes Alcohol intake: never Comment: patient refused telesiter,removed per pt request Patient Tobacco Use Status: Never used Tobacco Advance Directives Date on File: 07/30/23 service: No Current occupational status: retired Female Reproductive History Menstrual Age of Menarche: 15 Review of Systems Const Denies weight gain and Denies weight loss ENT Reports no additional complaints, Denies dysphagia and Denies odynophagia Card Reports no additional complaints Resp Reports no additional complaints GI Denies abdominal pain, Denies belching, Denies melena, Reports bloating, Denies change in bowel habits, Reports constipation (Occasional), Denies dysphagia, Denies excessive flatus, Denies dyspepsia, Reports heartburn, Denies diarrhea, Denies loose stools, Reports nausea (Occasional), Denies odynophagia and Denies vomiting Reports no additional complaints Musc Reports no additional complaints Neuro Reports no additional complaints Psych Reports no additional complaints Endo Reports no additional complaints Physical Exam Vital Signs: Last Vital Signs Pulse 58 07/31/24 14:21 BP 142/64 H 07/31/24 14:21 Pulse Ox 96 07/31/24 14:21 Oxygen Delivery Method Room Air 07/31/24 14:21 BMI result Body Mass Index 34.3 Const Other: Patient ambulating with a wheeled walker General: healthy appearing and no acute distress Nutritional Appearance: obese Orientation/consciousness: patient oriented x3 Resp Effort & Inspection: normal respiratory effort, able to speak in complete sentences, no tracheal deviation and symmetric chest movement Auscultation: clear to auscultation bilaterally Cardio Rate: regular rate GI Inspection: Yes normal to inspection, No distended and Yes obesity Palpation (GI): Soft to palpation, not firm, nontender and No hepatosplenomegaly present Auscultation: normal bowel sounds General: Yes no CVA tenderness Back/Spine/Pelvis Back: no CVA tenderness Skin General skin exam: elasticity normal, turgor normal and dry skin Neuro General: patient oriented x3 Psych Appearance: grossly normal Mental Status: mental status grossly normal Assessment & Plan Assessment & Plan (1) GERD (gastroesophageal reflux disease): Code(s): K21.9 - Gastro-esophageal reflux disease without esophagitis Qualifiers: Esophagitis presence: esophagitis presence not specified Qualified Code(s): K21.9 - Gastro-esophageal reflux disease without esophagitis (2) IBS (irritable bowel syndrome): Code(s): K58.9 - Irritable bowel syndrome, unspecified Qualifiers: Irritable bowel syndrome type: with both diarrhea and constipation Qualified Code(s): K58.2 - Mixed irritable bowel syndrome (3) Nausea: Code(s): R11.0 - Nausea (4) Screen for colon cancer: Code(s): Z12.11 - Encounter for screening for malignant neoplasm of colon Plan Message sent to surgical schedulers to book procedure for patient. Patient is intermediate risk for procedures. Awaiting to go also for her hip surgery. Currently nausea and epigastric pain postprandially, feels like pantoprazole is not working. Will switch to Nexium daily. Will hold off on taking famotidine at bedtime. Avoid dietary triggers and late night snacking. Staying upright for minimum 3 hours after meals discussed with patient. Patient will take MiraLax daily. Patient can also take fiber with probiotics daily follow-up in the office in 3 months, sooner on as needed basis. She is agreeable to this plan and verbalizes understanding of instructions. She was given the opportunity to ask questions and all questions answered. Thank you for allowing me to participate in her care Medications: New esomeprazole magnesium (Nexium) 40 mg PO BID 60 caps 5RF K21.9 - Gastro- esophageal reflux disease without esophagitis Discontinued pantoprazole Discontinued Reason: Doctor's Order 40 mg PO BID 180 tabs 2RF K21.9 - Gastro-esophageal reflux disease without esophagitis On Hold famotidine Hold Comment: Doctor's Order 40 mg PO BEDTIME 90 tabs 1RF K21.9 - Gastro- esophageal reflux disease without esophagitis Coding Level of Care Code Est Pt Level 4 (80824) Complex EM visit Add On G2211 Diagnoses Gastroesophageal reflux disease, unspecified whether esophagitis present K21.9 Esophagitis presence: esophagitis presence not specified Irritable bowel syndrome with both constipation and diarrhea K58.2 Irritable bowel syndrome type: with both diarrhea and constipation Nausea R11.0 Screen for colon cancer Z12.11 Time Spent (min) 40 Comment 25 minutes spent with patient and additional 15 minutes spent reviewing her records
[2024-07-31 14:21] VITALS: BP 142/64; PULSE 58; O2SAT 96; BMI 34.3
== END 2024-07-31 15:01 | disposition home or self-care (01) ==
PROVIDERS: PCP Family Medicine; Visit Provider Nurse Practitioner Family
DX: K21.9 Gastro-esophageal reflux disease without esophagitis (principal); K58.2 Mixed irritable bowel syndrome; R11.0 Nausea; Z12.11 Encounter for screening for malignant neoplasm of colon
CPT/HCPCS: 99214; G2211

== ENCOUNTER → 2024-07-31 14:18 | Outpatient (BNVA) | payer MEDICARE, OTHER, SELFPAY | PROVIDERS: PCP Family Medicine; Visit Provider Nurse Practitioner Family | DX: K21.9 Gastro-esophageal reflux disease without esophagitis (principal); K58.2 Mixed irritable bowel syndrome; R11.0 Nausea; Z12.11 Encounter for screening for malignant neoplasm of colon | CPT/HCPCS: 99212 ==

== ENCOUNTER → 2024-08-05 13:32 | Outpatient (BNVA) | payer MEDICARE, OTHER, SELFPAY | PROVIDERS: PCP Family Medicine; Visit Provider Urology ==

== ENCOUNTER 2024-08-14 10:00 | Outpatient (RCR) | payer MEDICARE, OTHER, SELFPAY ==
[2024-08-05 09:04] VITALS: BP 169/49; PULSE 58; RESP 18; TEMP 36.3; O2SAT 97
[2024-08-05] MEDS: vancomycin HCL 1,250 MG in 0.9 % Sodium Chloride 250 ML 166.67 MG IV (09:55)
[2024-08-05 10:05] LABS: Blood Urea Nitrogen 28 mg/dL (9-16); Creatinine Clr Calc Pharmacy 34.7; Estimated Glomerular Filt Rate 34
[2024-08-05] MEDS: Heparin Sodium,Porcine Flush 50 UNITS/5 ML SYRINGE IVFLUSH (11:48)
[2024-08-06 10:02] VITALS: BP 167/51; PULSE 60; RESP 18; TEMP 36.3; O2SAT 99
[2024-08-06] MEDS: vancomycin HCL 1,250 MG in 0.9 % Sodium Chloride 250 ML 166.67 MG IV (10:07)
[2024-08-06] MEDS: Heparin Sodium,Porcine Flush 50 UNITS/5 ML SYRINGE IVFLUSH (11:32)
[2024-08-06] MEDS: 0.9 % Sodium Chloride Flush 10 ML SYRINGE 5 ML IVFLUSH (11:32)
[2024-08-07 10:00] VITALS: BP 144/42; PULSE 59; RESP 16; TEMP 36.7; O2SAT 97
[2024-08-07] MEDS: vancomycin HCL 1,250 MG in 0.9 % Sodium Chloride 250 ML 166.67 MG IV (10:05)
[2024-08-07] MEDS: 0.9 % Sodium Chloride Flush 10 ML SYRINGE 5 ML IVFLUSH (11:35)
[2024-08-07] MEDS: Heparin Sodium,Porcine Flush 50 UNITS/5 ML SYRINGE IVFLUSH (11:35)
[2024-08-08 09:45] VITALS: BP 130/45; PULSE 52; RESP 20; TEMP 36.1; O2SAT 97
[2024-08-08 10:01] LABS: Estimated Glomerular Filt Rate 33; Vancomycin Trough 14.7 mcg/mL (10.0-20.0)
[2024-08-08] MEDS: vancomycin HCL 1,250 MG in 0.9 % Sodium Chloride 250 ML 166.67 MG IV (10:09)
[2024-08-08] MEDS: 0.9 % Sodium Chloride Flush 10 ML SYRINGE 5 ML IVFLUSH (11:59)
[2024-08-08] MEDS: Heparin Sodium,Porcine Flush 50 UNITS/5 ML SYRINGE IVFLUSH (12:00)
[2024-08-09 10:17] VITALS: BP 135/36; PULSE 58; RESP 20; TEMP 36.6; O2SAT 97
[2024-08-09] MEDS: vancomycin HCL 1,250 MG in 0.9 % Sodium Chloride 250 ML 166.67 MG IV (10:21)
[2024-08-09] MEDS: 0.9 % Sodium Chloride Flush 10 ML SYRINGE 5 ML IVFLUSH ×2 (10:22→11:53)
[2024-08-09] MEDS: Heparin Sodium,Porcine Flush 50 UNITS/5 ML SYRINGE IVFLUSH (11:53)
[2024-08-09 11:54] VITALS: BP 157/51; PULSE 59; RESP 16; TEMP 36.2; O2SAT 98
[2024-08-10 09:32] VITALS: BP 152/46; PULSE 56; RESP 16; TEMP 37.1; O2SAT 98
[2024-08-10] MEDS: vancomycin HCL 1,250 MG in 0.9 % Sodium Chloride 250 ML 166.67 MG IV (09:55)
[2024-08-10] MEDS: Heparin Sodium,Porcine Flush 50 UNITS/5 ML SYRINGE IVFLUSH (11:38)
[2024-08-11 08:47] VITALS: BP 186/43; PULSE 60; RESP 14; TEMP 36.6; O2SAT 97
[2024-08-11] MEDS: 0.9 % Sodium Chloride Flush 10 ML SYRINGE 5 ML IVFLUSH ×2 (08:48→11:41)
[2024-08-11 09:51] LABS: Estimated Glomerular Filt Rate 35
--- NOTE | 2024-08-11 10:02 | HE.PHANOTE ---
Re: Lingo Poor renal function, but stable. Trough returned at 16.0. Pt is therapeutic, continue current dose of 1250mg q24h with predicted AUC 534, predicted trough 16.5. Next Trough & SCr 08/14 @ 0900.
[2024-08-11] MEDS: vancomycin HCL 1,250 MG in 0.9 % Sodium Chloride 250 ML 166.67 MG IV (10:10)
[2024-08-11] MEDS: Heparin Sodium,Porcine Flush 50 UNITS/5 ML SYRINGE IVFLUSH (11:41)
[2024-08-12 09:54] VITALS: BP 150/45; PULSE 57; RESP 16; TEMP 36.5; O2SAT 100
[2024-08-12] MEDS: vancomycin HCL 1,250 MG in 0.9 % Sodium Chloride 250 ML 166.67 MG IV (10:01)
[2024-08-12] MEDS: Heparin Sodium,Porcine Flush 50 UNITS/5 ML SYRINGE IVFLUSH (11:42)
[2024-08-13 09:59] VITALS: BP 167/52; PULSE 62; RESP 16; TEMP 37.1; O2SAT 98
[2024-08-13] MEDS: vancomycin HCL 1,250 MG in 0.9 % Sodium Chloride 250 ML 166.67 MG IV (10:22)
[2024-08-13] MEDS: 0.9 % Sodium Chloride Flush 10 ML SYRINGE 5 ML IVFLUSH (11:54)
[2024-08-13] MEDS: Heparin Sodium,Porcine Flush 50 UNITS/5 ML SYRINGE IVFLUSH (11:55)
[2024-08-14 09:04] VITALS: BP 159/43; PULSE 57; RESP 16; TEMP 36.7; O2SAT 97
--- NOTE | 2024-08-14 09:17 | HO.INF ---
phlebotomy at bedside for labs. labs drawn off r chest port by this rn and handed to medical officer. urine culture spec obtained as well and handed to lab.
[2024-08-14 09:39] LABS: Creatinine Clr Calc Pharmacy 38.9; Estimated Glomerular Filt Rate 39
[2024-08-14 09:40] LABS: Vancomycin Trough 15.5 mcg/mL (10.0-20.0)
[2024-08-14] MEDS: vancomycin HCL 1,250 MG in 0.9 % Sodium Chloride 250 ML 166.67 MG IV (10:11)
[2024-08-14] MEDS: 0.9 % Sodium Chloride Flush 10 ML SYRINGE 5 ML IVFLUSH (11:44)
== END 2024-08-14 12:33 | disposition home or self-care (01) ==
LOC: HO.INF 10:00
PROVIDERS: Visit Provider Urology
DX: N39.0 Urinary tract infection, site not specified (principal)
CPT/HCPCS: 36415; 80202; 82565; 84520; 87086; 87088; 87186; 96365; 96366; J1642; J3370; J3371

== ENCOUNTER 2024-08-19 11:10 | Outpatient (REF) | payer MEDICARE, OTHER, SELFPAY ==
[2024-08-19 12:00] LABS: Anion Gap 14 (12-20); Blood Urea Nitrogen 26 mg/dL (9-16); Carbon Dioxide 25 mmol/L (22-29); Chloride 106 mmol/L (96-108); Estimated Glomerular Filt Rate 38; Magnesium 1.9 mg/dL (1.6-2.6); Potassium 4.7 mmol/L (3.3-5.1); Sodium 140 mmol/L (135-145)
--- OUTSIDE RECORDS SUMMARY | 2024-08-20 01:33 | XMS_ITS ---
Author Organization [facility] Address [address] [place] [address] Care Team Providers Care Business Ethics Professor Name Role Phone Ricardo Breen MD Primary Care Provider UnavailSylvia Iglesias Unavailable [phone] Allergies Allergen (clinical drug ingredient) Drug/Non Drug Allergy documented on EMR Reaction Allergy Type Onset Date Status amoxicillin Amoxicillin SOB Drug Allergy Act ricarda ciprofloxacin Cipro anaphylactic shock Drug Allergy Active Levaquin anaphylactic shock Drug Allergy Active Adhesive Tape rash Drug Allergy Act ricarda Iodinated contrast media (substance) Iodinated Diagnostic Agents hives Drug Allergy Active Latex Latex hives Allergy Active morphine Morphine vomiting Drug Allergy Active Penicillin SOB Drug Allergy Active REASON FOR VISIT Pcp-07/02, At Risk Footcare Medications Medication SIG (Take, Route, Frequency, Duration) Notes Start Date End Date Status Extra Depth Orthopedic Shoes (1 Pair) with Customized Heat Molded Multidensity Innersoles (3 Pair) as directed Dx: NIDDM/Polyneuropathy (E11.42), Hammertoe Foot Deformity (M20.41,M20.42), Preulcerative Skin Lesion(s) (L85.1 01/12/2019 Not-Taking Extra Depth Diabetic Shoes with 3 Pair Custom heat-molded multi-density innersoles for 1 year Dx: 02/19/2018 Not-Taking Voltaren 1 % as directed Externally Active Victoza Not-Taking Extra Depth Diabetic Shoes with 3 Pair Custom heat-molded multi-density innersoles for 1 year Dx: 12/05/2020 Active Simvastatin 40 MG 1 tablet in the even ing Orally Once a day Active Extra Depth Diabetic Shoes with 3 Pair Custom heat-molded multi-density innersoles for 1 year Dx: 04/23/2022 Active Vitamin D 1000 UNIT 1 tablet Orally Once a day Active Spironolactone 25 MG 1 tablet with food Orally Once a day Active Sulindac 150 MG 1 tablet with food Orally Twice a day Active Omeprazole 20 MG 1 capsule Orally Onc e a day Active metFORMIN HCl Active Nifedical XL Active Imbruvica Active Lorazepam prn Active Flexeril Active Furosemide Active DULoxetine HCl 30 MG 1 capsule Orally On ce a day Active Carvedilol 25 MG Orally Act ricarda CeleXA 10 MG 1 tablet Orally Once a day Active Avinza Active Calcium Active Pregabalin 150 MG 1 capsule Orally Onc e a day Active Social History Tobacco Use: Social History Observation Description Date Details (start date - stop date) Never Smoker NA - NA Tobacco Use/Smoking Question Answer Notes Are you a: nonsmoker Tobacco use other than smoking: Question Answer Notes Are you an other tobacco user? No Problems Problem Type SNOMED Code ICD Code Onset Dates Problem Status W/U Status Risk Notes Problem Polyneuropathy due to type 2 diabetes mellitus (902820728) Type 2 diabetes mellitus with diabetic polyneuropathy (E11.42) Active confirmed Problem Polyneuropathy due to diabetes mellitus type I ([id number]) Type 1 diabetes mellitus with diabetic polyneuropathy (E10.42) Active confirmed Vital Signs Height 5 ft 4 in in 07/16/2024 Weight 195 lbs 07/16/2024 BMI 33.47 kg/m2 07/16/2024 Blood pressure systolic 141 mm Hg 07/16/20 24 Blood pressure diastolic 52 mm Hg 024 Procedures Procedure Date Ordered Date Performed Result Body Sit e 88928-LQQNGNO NAIL, 6 OR MORE 07/16/2024 N/A 92596-FUBR SKIN LESIONS, 2 TO 4 07/16/2024 N/A Encounters Encounter Location Date Provider Diagnosis [facility] [address] [address] 07/16/2024 Sylvia Hernandezaker Type 2 diabetes mellitus with diabetic polyneuropathy E11.42 and Tinea unguium B35.1 Assessments Encounter Date Diagnosis (ICD Code) Assessment Notes Treatment Notes Treatment Clinical Notes Section Notes 07/16/2024 Type 2 diabetes mellitus with diabetic polyneuropathy (ICD-10 - E11.42) 07/16/2024 Tinea unguium (ICD-10 - B35.1) Plan Of Treatment Pending Test Test Name Order Date 95603-MNSWMDL NAIL, 6 OR MORE 07/16/2024 67164-YVST SKIN LESIONS, 2 TO 4 07/16/20 24 Next Appt Details Follow Up: prn, Reason: Provider Name:Sylvia Zarate aimee, 10/15/2024 02:45:00 PM, [address] [place], [address], Procedure Notes * Category Sub-Category Detail Notes Debride Nail 6-10 Nail debridement Performance o f this nail treatment by a nonprofessional would put this patients foot and overall health at risk. Therefore, debridement to affected nail(s) as described in exam was performed extensively to reduce/remove overall nail length, girth, thickness, subungual debris, and necrotic tissue, by manual and/or electrical means through the use of a nail nipper and/or dremel-type track grinder, to a more viable healthy nail plate or bed tissue 6-10. Silver nitrate used for any petechial bleeding as necessary. Definitive antifungal treatment options have been reviewed and discussed with the patient. The patient chooses, no pharmaceutical tx - 10204 Keratoma Treatment Parring or Cutting o f Benign Hyperkeratotic Lesion(s) (-56) 2-4 Lesions - The Benign hyperkeratotic lesions, as described in exam, were pared, and/or cut utilizing a sterile 15 blade, tissue nippers, and/or dremel - 99890 Progress Notes * Kaitlin BROWN MDOB:[birth year] (79 yo F)Acc No.[id number]:07/16/2024 Progress Note Patient:?Kaitlin Brown Provider:?Sylvia Nguyễn DPM :1945???Age:79 Y???Sex:Female D ate:07/16/2024 Address:[facility] [address] [id number] Pcp:Ricardo Breen MD Subjective: * Chief Complaints: * ???Pcp-07/02At Risk Footcare * HPI: ???At Risk footcare:?Pt States Last PCP Visit:?Date?06/29/2024 * ROS:?General/Constitutional:?Nausea?denies.?Vomiting?denies.?Hunger Thirst?denies.?Loss appetite?denies.?Chills?denies.?Fatigue?denies.?Fever?denies.?Night Sweats?denies.?Unexplained weight loss?denies.?Unexplained weight gain?denies.?HEENTM:?Dentures?denies.?Dizziness?denies.?Glasses/contacts?admits.?Retinopathy?den ies.?Blurred/double vision?denies.?TMJ?denies.?Discharge/drainage?denies.?Implants?denies.?Sore throat?denies.?Dental implants?denies.?Hard of hearing ?denies.?Difficulty chewing/swallowing/speaking?denies.?Nose bleeds?denies.?Sore mouth?denies.?Respiratory:?On O xygen?denies.?Pneumonia/pleurisy?denies.?Bronchitis?denies.?Emphysema?denies.?Co ughing?denies.?Cough blood?denies.?Shortness of breath?denies.?Wheezing?denies.?Cardiovascular:?Pacemaker?denies.?MVP?denies.?WPW?denies.?CHF?denies.?Heart attack?denies.?Septal defect?denies.?Rapid beat?denies.?Chest pain ?denies.?Atrial Fib.?denies.?Murmur/Palpitations?denies.?Gastrointestinal:?Hemorrhoids?denies.?Stomach/Abdominal pain?denies.?Dark blood stool?denies.?Irritable bowel ?denies.?Constipation?denies.?Diarrhea?denies.?Hematology:?Swelling?admits.?Clots?denies.?Varicose Veins?denies.?Bruising?denies.?Bleeding problem?denies.?Genitourinary:?Blood urine?denies.?Frequent/Painfu/urination/bladder control?denies.?Kidney stones?denies.?Infection (UTI)?denies.?Nephropathy?denies.?sex trans dis (STD)?denies.?Prostate?denies.?Musculoskeletal:?Hammertoes?denies.?Bunions?denies.?Back Pain?denies.?Muscle Cramps/ Resting?denies.?Muscle cramps / walking?denies.?Generalized aches and pains?admits.?Weakness?denies.?Integ.:?Goldstein?denies.?Scars?denies.?Corns/calluses?denies.?Ingrown nails?denies.?Painful nails?denies.?Open Sores?denies.?Rashes?denies.?Neurologic:?Difficulty sleeping?denies.?Brain disorder?denies.?Numbness?denies.?Balance t rouble?denies.?Confusion?denies.?Fainting/blackouts?denies.?Tingling?denies.?Heath mors?denies.? * Medical History:? * Surgical History:?left side veins removed 11/2018IVIG- Inteavnous Immunogloblin Treatments MonthlyOpen heart surgery 02/02/24 * Hospitalization/Major Diagno stic Procedure:?Denies Past Hospitalization * Family History:?Mother: dece ased.?Father: .? * Social History:?Tobacco Use:?Tobacco Use/Smoking?Are you a:?nonsmoker ?Tobacco use other than smoking?Are you an other tobacco user??No ???Miscellaneous:?Caffeine: yes, frequency: 1/day. ?Children: yes. ?Exercise: yes, walking. ?Marital status: . 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 * Medications:?TakingPregabali n 150 MG Capsule 1 capsule Orally Once a dayAvinza Calcium Carvedilol 25 MG Tablet Orally CeleXA 10 MG Tablet 1 tablet Orally Once a dayDULoxetine HCl 30 MG Capsule Delayed Release Particles 1 capsule Orally Once a dayFlexeril Furosemide Imbruvica Lorazepam prnmetFORMIN HCl Nifedical XL Omeprazole 20 MG Capsule Delayed Release 1 capsule Orally Once a daySimvastatin 40 MG Tablet 1 tablet in the evening Orally Once a daySpironolactone 25 MG Tablet 1 tablet with food Orally Once a daySulindac 150 MG Tablet 1 tablet with food Orally Twice a dayVitamin D 1000 UNIT Tablet 1 tablet Orally Once a dayExtra Depth Diabetic Shoes with 3 Pair Custom heat-molded multi-density innersoles for 1 year Dx:Extra Depth Diabetic Shoes with 3 Pair Custom heat-molded multi-density innersoles for 1 year Dx:Voltaren 1 % Gel as directed Externally Taking Pregabalin 150 MG Capsule 1 capsule Orally Once a dayTaking Avinza Taking Calcium Taking Carvedilol 25 MG Tablet Orally Taking CeleXA 10 MG Tablet 1 tablet Orally Once a dayTaking DULoxetine HCl 30 MG Capsule Delayed Release Particles 1 capsule Orally Once a dayTaking Flexeril Taking Furosemide Taking Imbruvica Taking Lorazepam prnTaking metFORMIN HCl Taking Nifedical XL Taking Omeprazole 20 MG Capsule Delayed Release 1 capsule Orally Once a dayTaking Simvastatin 40 MG Tablet 1 tablet in the evening Orally Once a dayTaking Spironolactone 25 MG Tablet 1 tablet with food Orally Once a dayTaking Sulindac 150 MG Tablet 1 tablet with food Orally Twice a dayTaking Vitamin D 1000 UNIT Tablet 1 tablet Orally Once a dayTaking Extra Depth Diabetic Shoes with 3 Pair Custom heat-molded multi-density innersoles for 1 year Dx:Taking Extra Depth Diabetic Shoes with 3 Pair Custom heat-molded multi-density innersoles for 1 year Dx:Taking Voltaren 1 % Gel as directed Externally Not-Taking/PRNVictoza Extra Depth Orthopedic Shoes (1 Pair) with Customized Heat Molded Multidensity Innersoles (3 Pair) as directed Dx: NIDDM/Polyneuropathy (E11.42), Hammertoe Foot Deformity (M20.41,M20.42), Preulcerative Skin Lesion(s) (L85.1Extra Depth Diabetic Shoes with 3 Pair Custom heat-molded multi-density innersoles for 1 year Dx:Medication List reviewed and reconciled with the patientNot-Taking/PRN Victoza Not-Taking/PRN Extra Depth Orthopedic Shoes (1 Pair) with Customized Heat Molded Multidensity Innersoles (3 Pair) as directed Dx: NIDDM/Polyneuropathy (E11.42), Hammertoe Foot Deformity (M20.41,M20.42), Preulcerative Skin Lesion(s) (L85.1Not-Taking/PRN Extra Depth Diabetic Shoes with 3 Pair Custom heat-molded multi-density innersoles for 1 year Dx:Medication List reviewed and reconciled with the patient * Allergies:?Cipro: anaphylact ic shockLevaquin: anaphylactic shockAdhesive Tape: rashAmoxicillin: SOBMorphine: vomitingIodinated Diagnostic Agents: hivesPenicillin: SOBLatex: hivesyes[Allergies Verified] Objective: * Vitals:?Ht: 5 ft 4 in, Wt: 1 95, BMI: 33.47, Shoe size: 9.5W, BP: 141/52 mm Hg, BS: 114, Wt-k.45 kg. * ???Past Orders: ???Lab:HEMOGLOBIN A1C (GLYCO HEMOGLOBIN) (Order Date - 11/06/2023) (Collection Date - 07/17/2023) ? Value Reference Range ?HEMOGLOBIN A1C % (HH) 5.7 * Examination: ???General Examination: ?GENERAL APPEARANCE:?Reveals a pleasant, alert, well nourished, well- developed, well hydrated individual, who demonstrates proper attention to hygiene/body habitus, and is in no acute distress, Pt serves as own historian for office visit today.?ORIENTED:?person, place, and time.?Neurological: ?SENSORY:?Neurological exam demonstrates reduced sharp/dull pin prick discrimination reduced light touch sensation reduced vibration sensation reduced proprioception sensation in a stocking fashion 5.07 monofilament test performed at plantar aspects of 5 varied sites per foot shows sensation plantar aspects absent at Forefoot B/L.?Nails: ?NAILS are:?Elongated, overgrown, dystrophic, lytic, greater than 3mm thick, discolored and friable with crumbly malodorous subungual debris, 1-5 B/L.?Dermatologic: ?SKIN FINDINGS:?Skin exam reveals Keratotic lesion(s) located at medial 1st metatarsal head B/L.?Vascular: ?DP PULSES(B):?1/4, B/L.?PT PULSES(B):? 1/4, B/L.?CAPILLARY FILL TIME:?3 secs. per digit, B/L.?EDEMA(C):? 3/4, B/L, Ankle(s).?TELANGECTASIA:?absent.?VARICOSITIES:?absent.?Orthopedic: ?MUSCLE STRENGTH:?5/5 all groups in a symmetrical fashion, B/L.?Ophthalmology Referral: ?DIABETES EYE EXAM? Assessment: * Assessment: 1.?Type 2 diabetes mellitus with diabetic polyneuropathy - E11.42 (Primary)?2.?Tinea unguium - B35.1? Plan: * Treatment: * Procedures:?Debride Nail 6-10:?Nail debridement?Performance of this nail treatment by a nonprofessional would put this patients foot and overall health at risk. Therefore, debridement to affected nail(s) as described in exam was performed extensively to reduce/remove overall nail length, girth, thickness, subungual debris, and necrotic tissue, by manual and/or electrical means through the use of a nail nipper and/or dremel-type track grinder, to a more viable healthy nail plate or bed tissue 6-10. Silver nitrate used for any petechial bleeding as necessary. Definitive antifungal treatment options have been reviewed and discussed with the patient. The patient chooses, no pharmaceutical tx - 87873.?Keratoma Treatment:?Parring or Cutting of Benign Hyperkeratotic Lesion(s)?(-56) 2-4 Lesions - The Benign hyperkeratotic lesions, as described in exam, were pared, and/or cut utilizing a sterile 15 blade, tissue nippers, and/or dremel - 42283.? * Procedure Codes:?03454 DEBRI DE NAIL, 6 OR MORE, Modifiers: XS 65824 TRIM SKIN LESIONS, 2 TO 4, Modifiers: XS * Follow Up:?prn * Images: * Sign off status: Completed true * Provider:?Sylvia Nguyễn DPM Date:?1 09/15/2023 Generated for Jeny ball/Chance/eTransmitting on:?08/20/2024 01:33 AM EST History and Physical Notes * HPI (History of Present Illness) Category Sub-Category Detail Notes Category Not es At Risk footcare Pt States Last PCP Visit: Date: Examination Category Sub-Category Detail Notes Category Not es Neurological SENSORY: Neurological exa m demonstrates reduced sharp/dull pin prick discrimination reduced light touch sensation reduced vibration sensation reduced proprioception sensation in a stocking fashion 5.07 monofilament test performed at plantar aspects of 5 varied sites per foot shows sensation plantar aspects absent at Forefoot B/L Dermatologic SKIN FINDINGS: Skin exam reveal s Keratotic lesion(s) located at medial 1st metatarsal head B/L Orthopedic MUSCLE STRENGTH: 5/5 all groups in a symmetrical fashion, B/L General Examination GENERAL APPEARANCE: Reveals a pleasant, alert, well nourished, well-developed, well hydrated individual, who demonstrates proper attention to hygiene/body habitus, and is in no acute distress, Pt serves as own historian for office visit today ORIENTED: person, place, and t vita Ophthalmology Referral DIABETES EYE EXAM Procedure Perform ed:: Yes ?Date of Exam Performed: 07/14/2024 Findings of Diabetic Eye Exam:: no retin opathy Vascular DP PULSES(B): 09/12, B/L PT PULSES(B): 1/4, B/L CAPILLARY FILL TIME: 3 secs. per digit, B/L EDEMA(C): /4, B/L, Ankle(s) TELANGECTASIA: absent VARICOSITIES: absent Nails NAILS are: Elongated, overg rown, dystrophic, lytic, greater than 3mm thick, discolored and friable with crumbly malodorous subungual debris, 1-5 B/L
--- OUTSIDE RECORDS SUMMARY | 2024-08-20 01:33 | XMS_ITS ---
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 Medications Medication SIG (Take, Route, Frequency, Duration) Notes Start Date End Date Status Voltaren 1 % as directed Externally Active Encounters Encounter Location Date Provider Diagnosis [facility] [address] [place] [address] 02/05/2024 Prosper Henson Type 2 diabetes mellitus with [...] Details Follow Up: 3 Months, Reason: Provider Name:Sylvia Hernandezclayton yu, 10/15/2024 02:45:00 PM, [address] [place] [address], [id number], Procedure Notes * Category Sub-Category Detail Notes [...] as necessary. Patient chooses, no pharmaceutical tx (33462) Keratoma Treatment Parring or Cutting o f Benign Hyperkeratotic Lesion(s) 11250 ( >4 Lesions) - The Benign hyperkeratotic lesions, as described above were pared, and/or cut utilizing a sterile #15 blade, tissue nippers, and/or dremel Progress Notes * Kaitlin BROWN MDOB:[birth year] (79 yo F)Acc No.[id number]:02/05/2024 Progress Note Patient:?Kaitlin BROWN Provider:?Prosper Henson DPM :1945???Age:78 Y???Sex:Female D ate:02/05/2024 Address:[address] [place] [address] [facility] Pcp:Ricardo Breen, MD Subjective: * Chief Complaints: * ???1. Painful nail(s) aggrev ated by shoes and causing difficulty standing/walking.. * HPI: ???Painful Nails:?Pt States Last PCP Visit:?Date:?04/09/2023 ???Foot Pain:?Nature:?brusing , numbness.?Location?Top, Great toe joint, Right .?Onset/Cause:?unknown, denies trauma.?Aggrevated:?any pressure, shoes.?Treatments:? USE OF WALKER AND? dm shoes.? * ROS:?General/Constitutional:?Nausea?denies.?Vomiting?denies.?Hunger Thirst?denies.?Loss appetite?denies.?Chills?denies.?Fatigue?denies.?Fever?denies.?Night Sweats?denies.?Unexplained weight loss?denies.?Unexplained weight gain?denies.?HEENTM:?Dentures?denies.?Dizziness?denies.?Glasses/contacts?admits.?Retinopathy?de nies.?Blurred/double vision?denies.?TMJ?denies.?Discharge/drainage?denies.?Implants?denies.?Sore throat?denies.?Dental implants?denies.?Hard of hearing ?denies.?Difficulty chewing/swallowing/speaking?denies.?Nose bleeds?denies.?Sore mouth?denies.?Respiratory:?On Oxygen?denies.?Pneumonia/pleurisy?denies.?Bronchitis?denies.?Emphysema?denies.?C oughing?denies.?Cough blood?denies.?Shortness of breath?denies.?Wheezing?denies.?Cardiovascular:?Pacemaker?denies.?MVP?denies.?WPW?denies.?CHF?denies.?Heart attack?denies.?Septal defect?denies.?Rapid beat?denies.?Chest pain ?denies.?Atrial Fib.?denies.?Murmur/Palpitations?denies.?Gastrointestinal:?Hemorrhoids?denies.?Stomach/Abdominal pain?denies.?Dark blood stool?denies.?Irritable bowel ?denies.?Constipation?denies.?Diarrhea?denies.?Hematology:?Swelling?admits.?Clots?denies.?Varicose Veins?denies.?Bruising?denies.?Bleeding problem?denies.?Genitourinary:?Blood urine?denies.?Frequent/Painfu/urination/bladder control?denies.?Kidney stones?denies.?Infection (UTI)?denies.?Nephropathy?denies.?sex trans dis (STD)?denies.?Prostate?denies.?Musculoskeletal:?Hammertoes?denies.?Bunions?denies.?Back Pain?denies.?Muscle Cramps/ Resting?denies.?Muscle cramps / walking?denies.?Generalized aches and pains?admits.?Weakness?denies.?Integ.:?Goldstein?denies.?Scars?denies.?Corns/calluses?denies.?Ingrown nails?denies.?Painful nails?denies.?Open Sores?denies.?Rashes?denies.?Neurologic:?Difficulty sleeping?denies.?Brain disorder?denies.?Numbness?denies.?Balance trouble?denies.?Confusion?denies.?Fainting/blackouts?denies.?Tingling?denies.?Tr emors?denies.? * Medical History:? Objective: * Vitals:? * Examination: ???General Examination: ?GENERAL APPEARANCE:?pleasant, alert, well nourished, well developed, well hydrated, with good attention to hygene/body habitus, and in no acute distress.?ORIENTED:?person,place, and time.?FOOT EXAM:?Neurological: ?SENSORY:?Neurological exam demonstrates, 5.07 monofilament test performed at plantar aspects of 5 varied sites per foot shows sensation, reduced , B/L, Neurological exam demonstrates pop dorsum right first mtpj.?TINEL'S COMPRESSION:?Negative tarsal tunnel, estephanie pedis, and medial calcaneal nerves B/L.?BABINSKI REFLEX:?absent.?Neuroma Pain: ?PALPATION:?No interspace pain noted on palpation.?Nails: ?NAILS are:?Elongated, overgrown, dystrophic, lytic, greater than 3mm thick, discolored and friable with crumbly malodorous subungual debris, with dull to no pain on palpation due to neuropathy, 1-5 Left foot, T5, T9.?Vascular: ?DP PULSES(B):? 1/4, B/L.?PT PULSES(B):? 1/4, B/L.?CAPILLARY FILL TIME:?3 secs. per digit, B/L.?EDEMA(C):? 3/4, B/L, Ankle(s).?TELANGECTASIA:?absent.?VARICOSITIES:?absent.?Dermatologic: ?SKIN FINDINGS:? Skin exam reveals Keratotic lesion(s) located at, Plantar, Heel(s), B/L , Skin exam reveals Keratotic lesion(s) located at, Medial plantar, IPJ, TA, T5, SUB MTH (s), 1, B/L .?Orthopedic: ?MUSCLE STRENGTH:?5/5 all groups in a symmetrical fashion , B/L.?GAIT ABNORMALITY:?pronated, abducted, B/L.?BUNION:? Medially prominent 1st MPJ, Dorsally prominent 1st MPJ, (+) Pain on palpation, LEFT, Lateral tracking 1st MPJ incompletely reducable.?Ophthalmology Referral: ?DIABETES EYE EXAM? Assessment: * Assessment: 1.?Type 2 diabetes mellitus with diabetic polyneuropathy - E11.42 (Primary)???2.?Tinea unguium - B35.1???3.?Pain in left foot - M79.672???4.?Primary osteoarthritis, left ankle and foot - M19.072???5.?Pain in left toe(s) - M79.675???6.?Pain in right toe(s) - M79.674???7.?Hallux rigidus, left foot - M20.22???8.?Hallux valgus (acquired), left foot - M20.12???9.?Localized edema - R60.0??? Plan: * Treatment: * Procedures:?Debride Nail 6-10:?Nail debridement?Nail debridement performed extensively to reduce/remove overall nail length and girth, subungual debris, and necrotic tissue, by manual and electrical means with use of a nail nipper and/or dremel, to more viable healthy nail plate or bed tissue 6-10. Silver nitrate used for any petechial bleeding as necessary. Patient chooses, no pharmaceutical tx (51832).?Keratoma Treatment:?Parring or Cutting of Benign Hyperkeratotic Lesion(s)?04332 ( >4 Lesions) - The Benign hyperkeratotic lesions, as described above were pared, and/or cut utilizing a sterile #15 blade, tissue nippers, and/or dremel.? * Procedure Codes:?56264 DEBRI DE NAIL, 6 OR MORE, Modifiers: XS , 25837 TRIM SKIN LESIONS, OVER 4, Modifiers: XS * Follow Up:?3 Months * Images: * The named appointment provid er may or may not be the originator of this progress note, and it is not deemed complete until electronically signed by the appointment provider. Sign off status: Pending * Provider:?Prosper Henson DPM Date:? 024 Generated for Jeny ball/Chance/Pallavi on:?08/20/2024 01:33 AM EST History and Physical [...] Diabetic Retinopa thy Screening:: Yes Vascular DP PULSES(B): 1/4, B/L PT PULSES(B): 09/12, B/L CAPILLARY FILL TIME: 3 secs. per digit, B/L EDEMA(C): /, B/L, Ankle(s) TELANGECTASIA: absent VARICOSITIES: absent Nails NAILS are: Elongated, overg rown, dystrophic, lytic, greater than 3mm thick, discolored and friable with crumbly malodorous subungual debris, with dull to no pain on palpation due to neuropathy, 1-5 Left foot, T5, T9
--- OUTSIDE RECORDS SUMMARY | 2024-08-20 01:33 | XMS_ITS | Patient Health Record ---
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 Role Phone Jamshid RAUSCH, Ricardo Primary Care Provider Unavailab Sylvia Kirkpatrick Unavailable [phone] Prosper Henson Unavailable [phone] Allergies Allergen (clinical drug ingredient) Drug/Non Drug [...] Allergy Active Penicillin SOB Drug Allergy Active Results Component Value Reference Range Notes HEMOGLOBIN A1C (GLYCOHEMOGLO BIN) Reviewed date:11/06/2023 03:10:21 PM Interpretation: Performing Lab: Notes/Report: HEMOGLOBIN A1C % (HH) 5.7 Reason For Referral No Information Medications Medication SIG (Take, Route, Frequency, Duration) Notes Start Date End Date Status Avinza Active Omeprazole 20 MG 1 capsule Orally Onc e a day Active Calcium Active Simvastatin 40 MG 1 tablet in the even ing Orally Once a day Active metFORMIN HCl Active Extra Depth Orthopedic Shoes (1 Pair) with Customized Heat Molded Multidensity Innersoles (3 Pair) as directed Dx: NIDDM/Polyneuropathy (E11.42), Hammertoe Foot Deformity (M20.41,M20.42), Preulcerative Skin Lesion(s) (L85.1 01/12/2019 Not-Taking Pregabalin 150 MG 1 capsule Orally Onc e a day Active Nifedical XL Active Extra Depth Diabetic Shoes with 3 Pair Custom heat-molded multi-density innersoles for 1 year Dx: 02/19/2018 Not-Taking Imbruvica Active Voltaren 1 % as directed Externally Active Lorazepam prn Active Victoza Not-Taking Flexeril Active Extra Depth Diabetic Shoes with 3 Pair Custom heat-molded multi-density innersoles for 1 year Dx: 04/23/2022 Active Furosemide Active Extra Depth Diabetic Shoes with 3 Pair Custom heat-molded multi-density innersoles for 1 year Dx: 12/05/2020 Active Vitamin D 1000 UNIT 1 tablet Orally Once a day Active DULoxetine HCl 30 MG 1 capsule Orally On ce a day Active Carvedilol 25 MG Orally Act ricarda Spironolactone 25 MG 1 tablet with food Orally Once a day Active CeleXA 10 MG 1 tablet Orally Once a day Active Sulindac 150 MG 1 tablet with food Orally Twice a day Active Immunizations Vaccine Route Administration Date Status Comme nts COVID-19 Moderna Vaccine Unknown 05/19/2021 Administered 1st 10/19/2020 2nd 11/24/2020 Influenza Unknown 05/12/2018 Administered Influenza Unknown 05/10/2021 Administered Influenza Unknown 06/09/2023 Administered Social History Tobacco Use: Social History Observation Description Date Details (start date - stop date) Never Smoker NA - NA Tobacco Use/Smoking Question Answer Notes Are you a: nonsmoker Alcohol Screen Question Answer Notes Did you have a drink containing alcohol in the p ast year? No Points 0 Interpretation Negative Tobacco use other than smoking: Question Answer Notes Are you an other tobacco user? No Problems Problem Type SNOMED Code ICD Code Onset Dates Problem Status W/U Status Risk Notes Problem Acquired hallux valgus (11584688) Hallux valgus (acquired), left foot (M20.12) Active confirmed Problem Polyneuropathy due to diabetes mellitus type I (610715156) Type 1 diabetes mellitus with diabetic polyneuropathy (E10.42) Active confirmed Problem Polyneuropathy due to type 2 diabetes mellitus (487715054) Type 2 diabetes mellitus with diabetic polyneuropathy (E11.42) Active confirmed Problem Localized, primary osteoarthritis of the ankle and/or foot (318119116) Primary osteoarthritis, left ankle and foot (M19.072) Active confirmed Problem Acquired hallux rigidus (3693065) Hallux rigidus, left foot (M20.22) Active confirmed Problem Non-pressure chronic ulcer of other part of left foot limited to breakdown of skin (L97.521) Active confirmed Problem Non-pressure chronic ulcer of other part of right foot limited to breakdown of skin (L97.511) Active confirmed Problem Polyneuropathy due to type 2 diabetes mellitus (492964738) Type 2 diabetes mellitus with diabetic polyneuropathy (E11.42) Active confirmed Problem Polyneuropathy due to diabetes mellitus type I (564281503) Type 1 diabetes mellitus with diabetic polyneuropathy (E10.42) Active confirmed Vital Signs Blood pressure diastolic 52 mm Hg 07/16/2024 Height 5 ft 4 in in 07/16/2024 Blood pressure systolic 141 mm Hg 07/16/2024 Weight 195 lbs 07/16/2024 BMI 33.47 kg/m2 07/16/2024 Procedures Procedure Date Ordered Date Performed Result Body Sit e 36611-MBVVCDT NAIL, 6 OR MORE 07/16/2024 N/A 67474-PNIB SKIN LESIONS, 2 TO 4 07/16/2024 N/A Encounters Encounter Location Date Provider Diagnosis [facility] [address] 11/06/2023 ProsperMason Type 2 diabetes mellitus with diabetic polyneuropathy E11.42 ; Tinea unguium B35.1 ; Pain in left foot M79.672 ; Primary osteoarthritis, left ankle and foot M19.072 ; Pain in left toe(s) M79.675 ; Pain in right toe(s) M79.674 ; Hallux rigidus, left foot M20.22 ; Hallux valgus (acquired), left foot M20.12 and Localized edema R60.0 [facility] [address] [address] 04/16/2024 Prosper Henson Type 2 diabetes mellitus with diabetic polyneuropathy E11.42 ; Tinea unguium B35.1 ; Pain in left foot M79.672 ; Primary osteoarthritis, left ankle and foot M19.072 ; Pain in left toe(s) M79.675 ; Pain in right toe(s) M79.674 ; Hallux rigidus, left foot M20.22 ; Hallux valgus (acquired), left foot M20.12 and Localized edema R60.[address] [address] 07/16/2024 Sylvia Nguyễn Type 2 diabetes mellitus with diabetic polyneuropathy E11.42 and Tinea unguium B35.[address] [address] 09/24/[address] [address] 10/08/[address] [address] 01/31/2024 [facility] Assessments Encounter Date Diagnosis (ICD Code) Assessment Notes Treatment Notes Treatment Clinical Notes Section Notes 11/06/2023 Type 2 diabetes mellitus with diabetic polyneuropathy (ICD-10 - E11.42) 04/16/2024 Type 2 diabetes mellitus with diabetic polyneuropathy (ICD-10 - E11.42) 07/16/2024 Type 2 diabetes mellitus with diabetic polyneuropathy (ICD-10 - E11.42) 07/16/2024 Tinea unguium (ICD-10 - B35.1) 04/16/2024 Tinea unguium (ICD-10 - B35.1) 11/06/2023 Tinea unguium (ICD-10 - B35.1) 11/06/2023 Pain in left foot (ICD-10 - M79.672) 04/16/2024 Pain in left foot (ICD-10 - M79.672) 04/16/2024 Primary osteoarthritis, left ankle and foot (ICD-10 - M19.072) 11/06/2023 Primary osteoarthritis, left ankle and foot (ICD-10 - M19.072) 11/06/2023 Pain in left toe(s) (ICD-10 - M79.675) 04/16/2024 Pain in left toe(s) (ICD-10 - M79.675) 04/16/2024 Pain in right toe(s) (ICD-10 - M79.674) 11/06/2023 Pain in right toe(s) (ICD-10 - M79.674) 11/06/2023 Hallux rigidus, left foot (ICD-10 - M20.22) 04/16/2024 Hallux rigidus, left foot (ICD-10 - M20.22) 04/16/2024 Hallux valgus (acquired), left foot (ICD-10 - M20.12) 11/06/2023 Hallux valgus (acquired), left foot (ICD-10 - M20.12) 11/06/2023 Localized edema (ICD-10 - R60.0) 04/16/2024 Localized edema (ICD-10 - R60.0) Plan Of Treatment Pending Test Test Name Order Date X ray : Foot, left 3V 02/19/2018 X ray : Foot, left 3V 03/30/2020 45007-QVFASEG NAIL, 6 OR MORE 07/16/2024 46606-CGVRNIO NAIL, 1-5 05/05/2018 38954-KIAFBNL NAIL, 1-5 07/21/2018 25812-YHHEXMX NAIL, 1-5 10/13/2018 63273, J0702- INJECT or DRAIN, JOINT/BUR SA 05/05/2018 95173-KSFM SKIN LESIONS, OVER 4 05/05/20 18 13408-FRDP SKIN LESIONS, OVER 4 07/21/20 18 22449-SIIN SKIN LESIONS, OVER 4 01/13/20 19 31743-VBRW SKIN LESIONS, OVER 4 04/13/20 19 70840-QDZV SKIN LESIONS, OVER 4 10/13/19 19 55635-KKYT SKIN LESIONS, OVER 4 12/06/19 21 62527-IKTO SKIN LESIONS, OVER 4 05/08/20 21 56727-MQUQ SKIN LESIONS, OVER 4 10/18/19 22 15106-OTJH SKIN LESIONS, OVER 4 08/01/20 20 76301-WDVZ SKIN LESIONS, OVER 4 03/30/20 20 91253-FWMR SKIN LESIONS, OVER 4 07/13/20 19 65959-RPRB SKIN LESIONS, OVER 4 10/12/19 20 74417-AZLT SKIN LESIONS, 2 TO 4 07/16/20 24 79591-XXAG SKIN LESIONS, 2 TO 4 02/20/20 18 13959, Y7528-QMLTU/INJECT, JOINT/BURSA 0 10/13/2018 Y0837-ANNJBXSJ DYSTROPHIC NAILS ANY # P7697-KYKSOJDM DYSTROPHIC NAILS ANY # T6497-FEADRGJP DYSTROPHIC NAILS ANY # K0493-GMKYMGUC DYSTROPHIC NAILS ANY # I4695-FEIPZGND DYSTROPHIC NAILS ANY # Y6038-XFEAZODE DYSTROPHIC NAILS ANY # W1523-LBAYUXQS DYSTROPHIC NAILS ANY # J0248-XJRDDCFI DYSTROPHIC NAILS ANY # W8613-DQYUPSKQ DYSTROPHIC NAILS ANY # 91829- Nail Unit Biopsy 02/19/2018 Next Appt Details Provider Name:Sylvia Zarate aimee, 10/15/2024 02:45:00 PM, [address] [facility], [place], [address], Insurance Providers Payer Name Payer Address Payer Phone Subscriber Number Group Number Insured Name Patient Relationship to Insured Coverage Start Date Coverage End Date Medicare [employer] [address] [place] [address] [id number] Kaitlin Ortiz Self - patient is the insured [address] [place] [address] [address] [place], [place] [id number] Kaitlin Ortiz Self - patient is the insured Medical (General) History Medical History History ICD Code Arthritis asthma Back,Hip,and Knee pain Diverticulosis Fibromyalgia Hepatitis Hiatal hernia High blood pressure Numbness Neuropathy Reflux ( GERD) Sciatica Stroke Measles Mumps Chicken pox Transfusions Chronic Lymphocytic Leukemia type II diabetes Surgical History Surgery Date(Month/Year) left side veins removed 11/2018 IVIG- Inteavnous Immunogloblin Treatment s Monthly Open heart surgery 02/02/24
--- OUTSIDE RECORDS SUMMARY | 2024-08-20 01:33 | XMS_ITS | Continuity of Care Document ---
Author Organization [facility] [address] [facility] [address] [place] [address] Phone [phone] Social History Type Date Description Comments Sex Unknown Procedures Date Code Description Status 02/01/2023 NSHOWOFF No Show Office Visit Complet ed Medical Devices Description No Information Available Encounters Description No Information Available Assessments Description No Information Available Plan of Treatment No Information Available Functional Status Description No Information Available Mental Status Description No Information Available Referrals Description No Information Available
--- OUTSIDE RECORDS SUMMARY | 2024-08-20 01:33 | XMS_ITS ---
Author Organization [facility] Address [address] [facility] [place] [address] Care Team Providers Care [facility]isted Living Executive Director Name Role Phone Ricardo Breen MD Primary Care Provider Unavailab Sylvia Kirkpatrick Unavailable [phone] Prosper Henson Unavailable [phone] Allergies Allergen (clinical drug ingredient) Drug/Non Drug [...] SOB Drug Allergy Active REASON FOR VISIT Pcp-03/10/24, Painful nail(s) aggrevated by shoes and causing difficulty standing/walking. Medications Medication SIG (Take, Route, Frequency, Duration) Notes Start Date End Date Status metFORMIN HCl Active Omeprazole 20 MG 1 capsule Orally Onc e a day Active Nifedical XL Active Spironolactone 25 MG 1 tablet with food Orally Once a day Active Simvastatin 40 MG 1 tablet in the even ing Orally Once a day Active Imbruvica Active Furosemide Active Lorazepam prn Active DULoxetine HCl 30 MG 1 capsule Orally On ce a day Active Flexeril Active Avinza Active Carvedilol 25 MG Orally Act ricarda Calcium Active CeleXA 10 MG 1 tablet Orally Once a day Active Voltaren 1 % as directed Externally Active Extra Depth Diabetic Shoes with 3 Pair Custom heat-molded multi-density innersoles for 1 year Dx: 12/05/2020 Active Extra Depth Orthopedic Shoes (1 Pair) with Customized Heat Molded Multidensity Innersoles (3 Pair) as directed Dx: NIDDM/Polyneuropathy (E11.42), Hammertoe Foot Deformity (M20.41,M20.42), Preulcerative Skin Lesion(s) (L85.1 01/12/2019 Not-Taking Victoza Not-Taking Extra Depth Diabetic Shoes with 3 Pair Custom heat-molded multi-density innersoles for 1 year Dx: 02/19/2018 Not-Taking Extra Depth Diabetic Shoes with 3 Pair Custom heat-molded multi-density innersoles for 1 year Dx: 04/23/2022 Active Vitamin D 1000 UNIT 1 tablet Orally Once a day Active Sulindac 150 MG 1 tablet with food Orally Twice a day Active Social History Tobacco Use: [...] Are you an other tobacco user? No Vital Signs Height 5 ft 4 in in 04/16/2024 Weight 195 lbs 04/16/2024 BMI 33.47 kg/m2 04/16/2024 Blood pressure systolic 148 mm Hg 04/16/20 24 Blood pressure diastolic 70 mm Hg 024 Encounters Encounter Location Date Provider Diagnosis [facility] [place] [address] [place] [address] 04/16/2024 Prosper Henson Type 2 diabetes mellitus [...] Treatment Notes Treatment Clinical Notes Section Notes 04/16/2024 Type 2 diabetes mellitus with diabetic polyneuropathy (ICD-10 - E11.42) 04/16/2024 Tinea unguium (ICD-10 - B35.1) 04/16/2024 Pain in left foot (ICD-10 - M79.672) 04/16/2024 Primary osteoarthritis, left ankle and foot (ICD-10 - M19.072) 04/16/2024 Pain in left toe(s) (ICD-10 - M79.675) 04/16/2024 Pain in right toe(s) (ICD-10 - M79.674) 04/16/2024 Hallux rigidus, left foot (ICD-10 - M20.22) 04/16/2024 Hallux valgus (acquired), left foot (ICD-10 - M20.12) 04/16/2024 Localized edema (ICD-10 - R60.0) Plan Of Treatment Medication Medication Name Sig Start Date Stop Date Notes Voltaren 1 % as directed Externally Next Appt Details Follow Up: 3 Months, Reason: Provider Name:Sylvia yu, 10/15/2024 02:45:00 PM, [address] [place] [address], [id number], Procedure Notes * Category Sub-Category Detail Notes [...] as necessary. Patient chooses, no pharmaceutical tx (17013) Keratoma Treatment Parring or Cutting o f Benign Hyperkeratotic Lesion(s) 96622 ( >4 Lesions) - The Benign hyperkeratotic lesions, as described above were pared, and/or cut utilizing a sterile #15 blade, tissue nippers, and/or dremel Progress Notes * Kaitlin BROWN MDOB:[birth year] (78 yo F)Acc No.[id number]:04/16/2024 Progress Note Patient:?Kaitlin Brown Noel Provider:?Prosper Henson DPM :1945???Age:78 Y???Sex:Female D ate:04/16/2024 Address:[address] [place], [id number] Pcp:Ricardo Breen MD Subjective: * Chief Complaints: * ???Pcp-03/10/24Painful nail( s) aggrevated by shoes and causing difficulty standing/walking. * HPI: ???Painful Nails:?Pt States Last PCP Visit:?Date:?03/10/2024 ???Foot Pain:?Nature:?brusing , numbness.?Location?Top, Great toe joint, Right .?Onset/Cause:?unknown, denies trauma.?Aggrevated:?any pressure, shoes.?Treatments:?USE OF WALKER AND? dm shoes.? * ROS:?General/Constitutional:?Nausea?denies, denies.?Vomiting?denies, denies.?Hunger Thirst?denies, denies.?Loss appetite?denies, denies.?Chills?denies, denies.?Fatigue?denies, denies.?Fever?denies, denies.?Night Sweats denies, denies.?Unexplained weight loss?denies, denies.?Unexplained weight gain?denies, denies.?HEENTM:?Dentures?denies, denies.?Dizziness?denies, denies.?Glasses/contacts?admits, admits.?Retinopathy?denies, denies.?Blurred/double vision?denies, denies.?TMJ?denies, denies.?Discharge/drainage?denies, denies.?Implants?denies, denies.?Sore throat?denies, denies.?Dental implants?denies, denies.?Hard of hearing ?denies, denies.?Difficulty chewing/swallowing/speaking?denies, denies.?Nose bleeds?denies, denies.?Sore mouth?denies, denies.?Respiratory:?On Oxygen?denies, denies.?Pneumonia/pleurisy?denies, denies.?Bronchitis?denies, denies.?Emphysema?denies, denies.?Coughing?denies, denies.?Cough blood?denies, denies.?Shortness of breath?denies, denies.?Wheezing?denies, denies.?Cardiovascular:?Pacemaker?denies, denies.?MVP?denies, denies.?WPW?denies, denies.?CHF?denies, denies.?Heart attack?denies, denies.?Septal defect?denies, denies.?Rapid beat?denies, denies.?Chest pain ?denies, denies.?Atrial Fib.?denies, denies.?Murmur/Palpitations?denies, denies.?Gastrointestinal:?Hemorrhoids?denies, denies.?Stomach/Abdominal pain?denies, denies.?Dark blood stool?denies, denies.?Irritable bowel ?denies, denies.?Constipation?denies, denies.?Diarrhea?denies, denies.?Hematology:?Swelling?admits, admits.?Clots?denies, denies.?Varicose Veins?denies, denies.?Bruising?denies, denies.?Bleeding problem?denies, denies.?Genitourinary:?Blood urine?denies, denies.?Frequent/Painfu/urination/bladder control?denies, denies.?Kidney stones?denies, denies.?Infection (UTI)?denies, denies.?Nephropathy?denies, denies.?sex trans dis (STD)?denies, denies.?Prostate?denies, denies.?Musculoskeletal:?Hammertoes?denies, denies.?Bunions?denies, denies.?Back Pain?denies, denies.?Muscle Cramps/ Resting?denies, denies.?Muscle cramps / walking?denies, denies.?Generalized aches and pains?admits, admits.?Weakness?denies, denies.?Integ.:?Goldstein?denies, denies.?Scars?denies, denies.?Corns/calluses?denies, denies.?Ingrown nails?denies, denies.?Painful nails?denies, denies.?Open Sores?denies, denies.?Rashes?denies, denies.?Neurologic:?Difficulty sleeping?denies, denies.?Brain disorder?denies, denies.?Numbness?denies, denies.?Balance trouble?denies, denies.?Confusion?denies, denies.?Fainting/blackouts?denies, denies.?Tingling?denies, denies.?Tremors?denies, denies.? * Medical History:? * Surgical History:?left side veins removed 11/2018IVIG- Inteavnous Immunogloblin Treatments MonthlyOpen heart surgery 02/02/24 * Hospitalization/Major Diagno stic Procedure:?Denies Past Hospitalization * Family History:?Mother: dece ased.?Father: .? * Social History:?Tobacco Use:?Tobacco Use/Smoking?Are you a:?nonsmoker ?Tobacco use other than smoking?Are you an other tobacco user??No ???Drugs/Alcohol:?Drugs?Have you used drugs other than those for medical reasons in the past 12 months??No ?Alcohol Screen?Did you have a drink containing alcohol in the past year??No ?Points?0 ?Interpretation?Negative ???Miscellaneous:?Caffeine: yes, frequency: 1/day. ?Children: yes. ?Exercise: yes, walking. ?Marital status: . 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 * Medications:?TakingAvinza Ca lcium Carvedilol 25 MG Tablet Orally CeleXA 10 [...] 1 % Gel as directed Externally Taking Avinza Taking Calcium Taking Carvedilol 25 MG [...] Diabetic Shoes with 3 Pair Custom heat-molded multi- density innersoles for 1 year Dx:Taking Voltaren 1 [...] 95, BMI: 33.47, Shoe size: 9.5W, BP: 148/70 mm Hg, BS: 100, Wt-k.45 kg. * ???Past Orders: ???Lab:HEMOGLOBIN A1C (GLYCO HEMOGLOBIN) (Order Date - 11/06/2023) (Collection Date - 07/17/2023) ? Value Reference Range ?HEMOGLOBIN A1C % (HH) 5.7 * Examination: ???Ophthalmology Referral: ?DIABETES EYE EXAM?General Examination: ?GENERAL APPEARANCE:?pleasant, alert, well nourished, well developed, well hydrated, with good attention to hygene/body habitus, and in no acute distress.?ORIENTED:?person,place, and time.?FOOT EXAM:?Neurological: ?SENSORY:?Neurological exam demonstrates, 5.07 monofilament test performed at plantar aspects of 5 varied sites per foot shows sensation, reduced , B/L, Neurological exam demonstrates pop dorsum right first mtpj.?TINEL'S COMPRESSION:?Negative tarsal tunnel, estephanie pedis, and medial calcaneal nerves B/L .?BABINSKI REFLEX:?absent .?Neuroma Pain: ?PALPATION:?No interspace pain noted on palpation.?Nails: ?NAILS are:?Elongated, overgrown, dystrophic, lytic, greater than 3mm thick, discolored and friable with crumbly malodorous subungual debris, with dull to no pain on palpation due to neuropathy, 1-5 Left foot, T5, T9.?Vascular: ?DP PULSES:? 1/4, B/L.?PT PULSES:? /, B/L.?CAPILLARY FILL TIME:?3 secs. per digit, B/L.?EDEMA:? 3/4, B/L, Ankle(s).?TELANGECTASIA:?absent.?VARICOSITIES:?absent.?Dermatologic: ?SKIN FINDINGS:? Skin exam [...] palpation, LEFT, Lateral tracking 1st MPJ incompletely reducable.? Assessment: * Assessment: 1.?Type 2 diabetes mellitus with diabetic polyneuropathy - E11.42 (Primary)?2.?Tinea unguium - B35.1?3.?Pain in left foot - M79.672?4.?Primary osteoarthritis, left ankle and foot - M19.072?5.?Pain in left toe(s) - M79.675?6.?Pain in right toe(s) - M79.674?7.?Hallux rigidus, left foot - M20.22?8.?Hallux valgus (acquired), left foot - M20.12?9.?Localized edema - R60.0? Plan: * Treatment: * Procedures:?Debride Nail 6-10:?Nail debridement?Nail debridement performed extensively to reduce/remove overall nail length and girth, subungual debris, and necrotic tissue, by manual and electrical means with use of a nail nipper and/or dremel, to more viable healthy nail plate or bed tissue 6-10. Silver nitrate used for any petechial bleeding as necessary. Patient chooses, no pharmaceutical tx (88203).?Keratoma Treatment:?Parring or Cutting of Benign Hyperkeratotic Lesion(s)?33975 ( >4 Lesions) - The Benign hyperkeratotic lesions, as described above were pared, and/or cut utilizing a sterile #15 blade, tissue nippers, and/or dremel.? * Procedure Codes:?03045 DEBRI DE NAIL, 6 OR MORE, Modifiers: XS 27601 TRIM SKIN LESIONS, OVER 4, Modifiers: XS * Follow Up:?3 Months * Images: * Sign off status: Completed true * Provider:?Prosper Henson DPM Date:? 024 Generated for Jeny ball/Chance/Pallavi on:?08/20/2024 01:33 AM EST History and Physical Notes * HPI (History of Present Illness) Category Sub-Category Detail Notes Category Not es Painful Nails Pt States Last PCP Visit: Date:: 03/10/2024 Foot Pain Aggrevated: any pressure, shoes Onset/Cause: [...] EYE EXAM Diabetic Retinopa thy Screening:: Yes Findings of Diabetic Eye Exam:: no retin opathy Vascular DP PULSES(B): 1/4, B/L PT PULSES(B): 1/4, B/L CAPILLARY FILL TIME: 3 secs. per digit, B/L EDEMA(C): 3/4, B/L, Ankle(s) TELANGECTASIA: absent VARICOSITIES: absent Nails NAILS are: Elongated, overg rown, dystrophic, lytic, greater than 3mm thick, discolored and friable with crumbly malodorous subungual debris, with dull to no pain on palpation due to neuropathy, 1-5 Left foot, T5, T9
--- OUTSIDE RECORDS SUMMARY | 2024-08-20 01:34 | XMS_ITS | Clinical Summary ---
Author Organization Unknown Care Team Providers Care Simulation Educator Name Role Phone MELANIA RAUSCH, ELLEN Unavailable Unavailable TOMY MC, JOSE Unavailable Unavailable Payers Payer Name Policy Type Policy Number Effective Date Expira tion Date MEDICARE - NGS [place] - PDGM [id number] Problems Condition Name Condition Details Condition Category Status Onset Date Resolution Date Last Treatment Date Treating Clinician Comments ENCNTR FOR SURGICAL AFTCR FOLLOWING SURGERY ON THE CIRC SYS Active 02-04 00:00: 00 TYPE 2 DIABETES MELLITUS WITHOUT COMPLICATION S Active 02-04 00:00: 00 PAROXYSMAL ATRIAL FIBRILLATION Active 02-04 00:00: 00 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 02-04 00:00: 00 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 Active 02-04 00:00: 00 MALIGNANT NEOPLASM OF UNSP SITE OF UNSPECIFIED FEMALE BREAST Active 02-04 00:00: 00 ANEMIA IN NEOPLASTIC DISEASE Active 02-04 00:00: 00 ATHSCL HEART DISEASE OF [place] CORONARY ARTERY W/O ANG PCTRS Active 02-04 00:00: 00 ESSENTIAL (PRIMARY) HYPERTENSION Active 02-04 00:00: 00 UNSPECIFIED ASTHMA, UNCOMPLICATE D Active 02-04 00:00: 00 URINARY TRACT INFECTION, SITE NOT SPECIFIED Active 02-04 00:00: 00 UNSPECIFIED OSTEOARTHRIT IS, UNSPECIFIED SITE Active 02-04 00:00: 00 FIBROMYALGIA Active 02-04 00:00: 00 SOLITARY PULMONARY NODULE Active 02-04 00:00: 00 DEPRESSION, UNSPECIFIED Active 02-04 00:00: 00 OBSTRUCTIVE SLEEP APNEA (ADULT) (PEDIATRIC) Active 02-04 00:00: 00 UNQUALIFIED VISUAL LOSS, RIGHT EYE, NORMAL VISION LEFT EYE Active 02-04 00:00: 00 HYPERLIPIDEM IA, UNSPECIFIED Active 02-04 00:00: 00 GASTRO-ESOPH AGEAL REFLUX 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 Active 02-04 00:00: 00 SHELTER (CURRENT) USE OF ASPIRIN Active 02-04 00:00: 00 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 Active 02-04 00:00: 00 PRESENCE OF AORTOCORONAR Y BYPASS GRAFT Active 02-04 00:00: 00 Allergies, Adverse Reactions, Alerts Allergy Name Allergy Type Status Severity Reaction(s) Onset Date Inactive Date Treating Clinician Comments LATEX Propensity to adverse reactions Active 02-04 14:49: 24 VICTOZA Propensity to adverse reactions Active 02-04 14:50: 13 ADVAIR HFA Propensity to adverse reactions Active 02-04 14:50: 28 MOBIC Propensity to adverse reactions Active 02-04 14:50: 35 LIPITOR Propensity to adverse reactions Active 02-04 14:50: 43 MACROBID Propensity to adverse reactions Active 02-04 14:50: 50 PYRIDIUM Propensity to adverse reactions Active 02-04 14:51: 01 Keflex Propensity to adverse reactions Active 02-04 14:51: 12 TORSEMIDE Propensity to adverse reactions Active 02-04 14:51: 20 CIPRO Propensity to adverse reactions Active 02-04 14:51: 29 AMOXICILLIN Propensity to adverse reactions Active 02-04 14:51: 49 CONTRAST DYE Propensity to adverse reactions Active 02-04 14:52: 03 PENICILLIN Propensity to adverse reactions Active 02-04 14:52: 16 CEPHRADINE Propensity to adverse reactions Active 02-04 14:52: 36 Medications Ordered Medication Name Filled Medication Name Start Date Stop Date Current Medication? Ordering Clinician Indication Dosage Frequency Signature (SIG) Comments Components atorvastati n 80 mg tablet 2-17 00:00: 00 01-20 23:59 :00 No [id number] 1 tablet BEDTIME 1 tablet BEDTIME (route: oral) Med Classific ation: Cardiovas cular Therapy Agents pantoprazol e 40 mg tablet,sonia yed release 2- 00:00: 00 01-23 00:00 :00 No [id number] 1 tablet DAILY 1 tablet DAILY (route: oral) Med Classific ation: Gastroint estinal Therapy Agents nitrofurant oin monohydrate /macrocryst als 100 mg capsule 2-13 00:00: 00 11-01 23:59 :00 No [id number] 1 capsule TWICE A DAY FOR UTI FOR 10 DAYS 1 capsule TWICE A DAY FOR UTI FOR 10 DAYS (route: oral) Med Classific ation: Genitouri nary Therapy metformin 1,000 mg tablet - 00:00: 00 01-20 23:59 :00 No [id number] 1 tablet TWICE A DAY DIRECTED 1 tablet TWICE A DAY DIRECTED (route: oral) Med Classific ation: Endocrine amlodipine 10 mg tablet 11-15 00:00: 00 01-20 23:59 :00 No [id number] 1 tablet DAILY 1 tablet DAILY (route: oral) Med Classific ation: Cardiovas cular Therapy Agents ascorbic acid (vitamin C) 1,000 mg capsule 11-15 00:00: 00 01-20 23:59 :00 No [id number] 1 capsule DAILY 1 capsule DAILY (route: oral) Med Classific ation: Electroly te Balance-N utritiona l Products Aspirin Childrens 81 mg chewable tablet 11-15 00:00: 00 01-20 23:59 :00 No [id number] 1 tablet DAILY 1 tablet DAILY (route: oral) Med Classific ation: Hematolog ical Agents carvedilol 25 mg tablet - 00:00: 00 01-20 23:59 :00 No [id number] 1 tablet 2 TIMES DAILY 1 tablet 2 TIMES DAILY (route: oral) Med Classific ation: Cardiovas cular Therapy Agents citalopram 20 mg tablet - 00:00: 00 01-20 23:59 :00 No [id number] 1 tablet DAILY 1 tablet DAILY (route: oral) Med Classific ation: Central Nervous System Agents cyclobenzap rine 5 mg tablet 11-15 00:00: 00 01-20 23:59 :00 No [id number] 1 tablet BEDTIME 1 tablet BEDTIME (route: oral) Med Classific ation: Locomotor System duloxetine 60 mg capsule,del ayed release 11-15 00:00: 00 01-20 23:59 :00 No [id number] 1 capsule DAILY 1 capsule DAILY (route: oral) Med Classific ation: Central Nervous System Agents famotidine 40 mg tablet 11-15 00:00: 00 01-20 23:59 :00 No [id number] 1 tablet BEDTIME 1 tablet BEDTIME (route: oral) Med Classific ation: Gastroint estinal Therapy Agents ferrous sulfate 325 mg (65 mg iron) tablet 11-15 00:00: 00 01-20 23:59 :00 No [id number] 1 tablet DAILY 1 tablet DAILY (route: oral) Med Classific ation: Electroly te Balance-N utritiona l Products furosemide 40 mg tablet 11-15 00:00: 00 12-24 23:59 :00 No [id number] 1 tablet DAILY 1 tablet DAILY (route: oral) Med Classific ation: Cardiovas cular Therapy Agents hydralazine 25 mg tablet 11-15 00:00: 00 12-24 23:59 :00 No [id number] 1 tablet 3 TIMES DAILY 1 tablet 3 TIMES DAILY (route: oral) Med Classific ation: Cardiovas cular Therapy Agents Imbruvica 420 mg tablet 11-15 00:00: 00 01-20 23:59 :00 No [id number] 1 tablet DAILY 1 tablet DAILY (route: oral) Med Classific ation: Antineopl astics Imbruvica 420 mg tablet 11-15 00:00: 00 12-24 00:00 :00 No [id number] 1 tablet DAILY 1 tablet DAILY (route: oral) Med Classific ation: Antineopl astics Januvia 100 mg tablet 11-15 00:00: 00 12-24 23:59 :00 No [id number] 1 tablet DAILY 1 tablet DAILY (route: oral) Med Classific ation: Endocrine pregabalin 150 mg capsule 09 00:00: 00 01-20 23:59 :00 No [id number] 1 capsule 2 TIMES DAILY 1 capsule 2 TIMES DAILY (route: oral) Med Classific ation: Central Nervous System Agents Senna Lax 8.6 mg tablet 11-15 00:00: 00 01-20 23:59 :00 No [id number] 2 tablet BEDTIME 2 tablet BEDTIME (route: oral) Med Classific ation: Gastroint estinal Therapy Agents solifenacin 5 mg tablet 11-15 00:00: 00 01-23 00:00 :00 No [id number] 1 tablet DAILY 1 tablet DAILY (route: oral) Med Classific ation: Genitouri nary Therapy spironolact one 25 mg tablet 11-15 00:00: 00 01-20 23:59 :00 No [id number] 1 tablet DAILY 1 tablet DAILY (route: oral) Med Classific ation: Cardiovas cular Therapy Agents sulindac 150 mg tablet 11-15 00:00: 00 01-23 00:00 :00 No [id number] 1 tablet 2 TIMES DAILY 1 tablet 2 TIMES DAILY (route: oral) Med Classific ation: Analgesic , Anti-infl ammatory or Antipyret ic nitrofurant oin macrocrysta l 100 mg capsule 3-24 00:00: 00 12-24 23:59 :00 No [id number] 1 capsule 2 TIMES DAILY 1 capsule 2 TIMES DAILY (route: oral) Med Classific ation: Genitouri nary Therapy Macrobid 100 mg capsule 4-10 00:00: 00 12-24 23:59 :00 No [id number] 100 mg 2 TIMES DAILY 100 mg 2 TIMES DAILY (route: oral) Med Classific ation: Genitouri nary Therapy cefpodoxime 100 mg tablet 4-16 00:00: 00 12-25 23:59 :00 No [id number] 1 tablet 2 TIMES DAILY 1 tablet 2 TIMES DAILY (route: oral) Med Classific ation: Anti-Infe ctive Agents Citracal-D3 Maximum Plus 325 mg-12.5 mcg-2.75 mg tablet 12-24 00:00: 00 01-20 23:59 :00 No [id number] 1 tablet EVERY AM 1 tablet EVERY AM (route: oral) Med Classific ation: Electroly te Balance-N utritiona l Products magnesium oxide 500 mg capsule 12-24 00:00: 00 01-23 00:00 :00 No [id number] 1 capsule EVERY PM 1 capsule EVERY PM (route: oral) Med Classific ation: Electroly te Balance-N utritiona l Products Multiple Vitamins tablet 12-24 00:00: 00 01-20 23:59 :00 No [id number] 1 tablet EVERY AM 1 tablet EVERY AM (route: oral) Med Classific ation: Electroly te Balance-N utritiona l Products acetaminoph en 325 mg tablet 01-23 00:00: 00 01-20 23:59 :00 No [id number] 2 tablet EVERY 6 HOURS 2 tablet EVERY 6 HOURS (route: oral) Med Classific ation: Analgesic , Anti-infl ammatory or Antipyret ic coenzyme Q10 100 mg capsule 01-23 00:00: 00 01-20 23:59 :00 No [id number] 1 capsule BEDTIME 1 capsule BEDTIME (route: oral) Med Classific ation: Alternati ve Therapy docusate sodium 100 mg capsule 01-22 00:00: 00 01-20 23:59 :00 No [id number] 1 capsule 2 TIMES DAILY 1 capsule 2 TIMES DAILY (route: oral) Med Classific ation: Gastroint estinal Therapy Agents enoxaparin 40 mg/0.4 mL subcutaneou s syringe 01-23 00:00: 00 02-07 23:59 :00 No [id number] 0.4 mL DAILY 0.4 mL DAILY (route: subcutaneo us) Med Classific ation: Hematolog ical Agents furosemide 20 mg tablet 01-22 00:00: 00 01-20 23:59 :00 No [id number] 1 tablet DAILY 1 tablet DAILY (route: oral) Med Classific ation: Cardiovas cular Therapy Agents magnesium oxide 400 mg (241.3 mg magnesium) tablet 01-23 00:00: 00 01-20 23:59 :00 No [id number] 1 tablet BEDTIME 1 tablet BEDTIME (route: oral) Med Classific ation: Electroly te Balance-N utritiona l Products omeprazole 20 mg tablet,sonia yed release 01-22 00:00: 00 01-20 23:59 :00 No [id number] 1 tablet DAILY 1 tablet DAILY (route: oral) Med Classific ation: Gastroint estinal Therapy Agents oxycodone 5 mg tablet 01-22 00:00: 00 01-20 23:59 :00 No [id number] 1 tablet EVERY 4 HOURS 1 tablet EVERY 4 HOURS (route: oral) Med Classific ation: Analgesic , Anti-infl ammatory or Antipyret ic oxycodone ER 10 mg tablet,vanda h resistant,e xtended release 12 hr 01-23 00:00: 00 01-20 23:59 :00 No [id number] 1 tablet EVERY 12 HOURS 1 tablet EVERY 12 HOURS (route: oral) Med Classific ation: Analgesic , Anti-infl ammatory or Antipyret ic polyethylen e glycol 3350 17 gram/dose oral powder 01-22 00:00: 00 01-20 23:59 :00 No [id number] 17 gram DAILY 17 gram DAILY (route: oral) Med Classific ation: Gastroint estinal Therapy Agents fluconazole 150 mg tablet 01-28 00:00: 00 01-20 23:59 :00 No [id number] 1 tablet DIRECTED 1 tablet DIRECTED (route: oral) Med Classific ation: Anti-Infe ctive Agents fluconazole 150 mg tablet 01-16 00:00: 00 02-04 23:59 :00 No [id number] Per instruc tions EVERY 3 DAYS FOR YEAST INFECTION FOR 6 DAYS Per instructio ns EVERY 3 DAYS FOR YEAST INFECTION FOR 6 DAYS (route: oral) Med Classific ation: Anti-Infe ctive Agents duloxetine 60 mg capsule,del ayed release 01-08 00:00: 00 Yes [id number] Per instruc tions EVERY DAY Per instructio ns EVERY DAY (route: oral) Med Classific ation: Central Nervous System Agents pantoprazol e 40 mg tablet,sonia yed release 01-07 00:00: 00 Yes [id number] Per instruc tions TWICE A DAY Per instructio ns TWICE A DAY (route: oral) Med Classific ation: Gastroint estinal Therapy Agents amlodipine 10 mg tablet 01-05 00:00: 00 02-04 23:59 :00 No [id number] Per instruc tions EVERY DAY Per instructio ns EVERY DAY (route: oral) Med Classific ation: Cardiovas cular Therapy Agents metformin 1,000 mg tablet 01-04 00:00: 00 02-04 23:59 :00 No [id number] Per instruc tions TWICE A DAY DIRECTED Per instructio ns TWICE A DAY DIRECTED (route: oral) Med Classific ation: Endocrine pregabalin 150 mg capsule 12-23 00:00: 00 Yes [id number] Per instruc tions 2 (TWO) TIMES A DAY Per instructio ns 2 (TWO) TIMES A DAY (route: oral) Med Classific ation: Central Nervous System Agents acetaminoph en 325 mg tablet 02-04 00:00: 00 Yes [id number] 1 tablet EVERY 6 HOURS 1 tablet EVERY 6 HOURS (route: oral) Med Classific ation: Analgesic , Anti-infl ammatory or Antipyret ic amiodarone 200 mg tablet 02-04 00:00: 00 02-12 23:59 :00 No [id number] 1 tablet 2 TIMES DAILY 1 tablet 2 TIMES DAILY (route: oral) Med Classific ation: Cardiovas cular Therapy Agents amlodipine 5 mg tablet 02-04 00:00: 00 Yes [id number] 1 tablet DAILY 1 tablet DAILY (route: oral) Med Classific ation: Cardiovas cular Therapy Agents ascorbic acid (vitamin C) 500 mg tablet 02-04 00:00: 00 Yes [id number] 1 tablet 2 TIMES DAILY 1 tablet 2 TIMES DAILY (route: oral) Med Classific ation: Electroly te Balance-N utritiona l Products aspirin 81 mg tablet,sonia yed release 02-04 00:00: 00 Yes [id number] 1 tablet DAILY 1 tablet DAILY (route: oral) Med Classific ation: Hematolog ical Agents atorvastati n 80 mg tablet 02-04 00:00: 00 Yes [id number] 1 tablet DIRECTED 1 tablet DIRECTED (route: oral) Med Classific ation: Cardiovas cular Therapy Agents cholecalcif tiera (vitamin D3) 10 mcg (400 unit) capsule 02-04 00:00: 00 Yes [id number] 1 capsule DAILY 1 capsule DAILY (route: oral) Med Classific ation: Electroly te Balance-N utritiona l Products citalopram 20 mg tablet 02-04 00:00: 00 Yes [id number] 1 tablet DAILY 1 tablet DAILY (route: oral) Med Classific ation: Central Nervous System Agents furosemide 40 mg tablet 02-04 00:00: 00 02-12 23:59 :00 No [id number] 1 tablet 2 TIMES DAILY 1 tablet 2 TIMES DAILY (route: oral) Med Classific ation: Cardiovas cular Therapy Agents Humalog KwikPen (U-100) Insulin 100 unit/mL subcutaneou s 02-04 00:00: 00 Yes [id number] Per instruc tions DIRECTED Per instructio ns DIRECTED (route: subcutaneo us) Med Classific ation: Endocrine Imbruvica 140 mg tablet 02-04 00:00: 00 Yes [id number] 1 tablet DAILY 1 tablet DAILY (route: oral) Med Classific ation: Antineopl astics insulin glargine (U-100) 100 unit/mL (3 mL) subcutaneou s pen 02-04 00:00: 00 Yes [id number] 19 unit DIRECTED 19 unit DIRECTED (route: subcutaneo us) Med Classific ation: Endocrine insulin lispro (U-100) 100 unit/mL subcutaneou s pen 02-04 00:00: 00 Yes [id number] 8 unit DIRECTED 8 unit DIRECTED (route: subcutaneo us) Med Classific ation: Endocrine metformin 500 mg tablet 02-04 00:00: 00 Yes [id number] 1 tablet 2 TIMES DAILY 1 tablet 2 TIMES DAILY (route: oral) Med Classific ation: Endocrine metoprolol succinate ER 25 mg tablet,exte nded release 24 hr 02-04 00:00: 00 Yes [id number] Per instruc tions DAILY Per instructio ns DAILY (route: oral) Med Classific ation: Cardiovas cular Therapy Agents Aldactone 25 mg tablet 02-16 00:00: 00 Yes [id number] 25 mg DAILY 25 mg DAILY (route: oral) Med Classific ation: Cardiovas cular Therapy Agents Immunizations Ordered Immunization Name Filled Immunization Name Date Status Comments Refusal Reason INFLUENZA, TIV (INACTIVATED) 2023-08-26 00:00:00 COVID-19, COVID-19 2021-02-21 00:00:00 PNEUMOCOCCAL (PPV), PPV 2020-10-18 00:00:00 Vital Signs Vital Name Observation Time Observation Value Commen ts Temperature 2024-03-04 12:46:00.000 98.2 [degF] Temperature 2024-03-03 10:26:00.000 97.8 [degF] Temperature 2024-02-24 10:21:00.000 97.9 [degF] Temperature 2024-02-17 17:34:00.000 98.3 [degF] Temperature 2024-02-10 10:04:00.000 97.6 [degF] Temperature 2024-02-05 14:46:00.000 98.2 [degF] BMI (%) 2024-02-05 14:46:00.000 32 kg/m2 Height 2024-02-05 14:46:00.000 64 [in_us] Pulse 2024-03-04 12:46:00.000 78 /min Pulse 2024-03-03 10:26:00.000 72 /min Pulse 2024-02-24 10:21:00.000 66 /min Pulse 2024-02-17 17:34:00.000 76 /min Pulse 2024-02-10 10:04:00.000 72 /min Pulse 2024-02-05 14:46:00.000 67 /min O2 Saturation (%) 2024-03-03 10:26:00.000 97 % O2 Saturation (%) 2024-02-24 10:21:00.000 97 % O2 Saturation (%) 2024-02-17 17:34:00.000 98 % O2 Saturation (%) 2024-02-10 10:04:00.000 96 % O2 Saturation (%) 2024-02-05 14:46:00.000 97 % Respirations 2024-03-04 12:46:00.000 18 /min Respirations 2024-03-03 10:26:00.000 20 /min Respirations 2024-02-24 10:21:00.000 18 /min Respirations 2024-02-17 17:34:00.000 20 /min Respirations 2024-02-10 10:04:00.000 16 /min Respirations 2024-02-05 14:46:00.000 16 /min Weight (lbs) 2024-03-03 10:26:00.000 183 [lb_av] Weight (lbs) 2024-02-05 14:46:00.000 192 [lb_av] Systolic Blood Pressure 2024-03-03 10:26:00.000 142 mm [Hg] Systolic Blood Pressure 2024-02-24 10:21:00.000 146 mm [Hg] Systolic Blood Pressure 2024-02-17 17:34:00.000 122 mm [Hg] Systolic Blood Pressure 2024-02-10 10:04:00.000 136 mm [Hg] Systolic Blood Pressure 2024-02-05 14:46:00.000 142 mm [Hg] Diastolic Blood Pressure 2024-03-03 10:26:00.000 70 mm [Hg] Diastolic Blood Pressure 2024-02-24 10:21:00.000 62 mm [Hg] Diastolic Blood Pressure 2024-02-17 17:34:00.000 62 mm [Hg] Diastolic Blood Pressure 2024-02-10 10:04:00.000 62 mm [Hg] Diastolic Blood Pressure 2024-02-05 14:46:00.000 70 mm [Hg] Plan of Treatment Planned Activity Planned Date Details Comments Future Scheduled Test SKILLED NU RSE TO EVALUATE PATIENT, IDENTIFY PRIMARY AND CO-MORBID CONDITIONS CODED PER CODING GUIDELINES, AND DEVELOP PATIENT SPECIFIC PLAN OF CARE THAT INCLUDES PATIENT GOAL FOR HOME HEALTH. [code = SKILLED NURSE TO EVALUATE PATIENT, IDENTIFY PRIMARY AND CO-MORBID CONDITIONS CODED PER CODING GUIDELINES, AND DEVELOP PATIENT SPECIFIC PLAN OF CARE THAT INCLUDES PATIENT GOAL FOR HOME HEALTH.] Future Scheduled Test SKILLED NU RSE TO PROVIDE TEACHING/REINFORCEMENT RELATED TO URINARY INCONTINENCE. [code = SKILLED NURSE TO PROVIDE TEACHING/REINFORCEMENT RELATED TO URINARY INCONTINENCE.] Future Scheduled Test SKILLED NU RSE TO REVIEW PATIENT MEDICATIONS. INSTRUCT PATIENT/CAREGIVER ON MONITORING OF EFFECTIVENESS, ADVERSE DRUG REACTIONS, SIDE EFFECTS OF ALL MEDICATIONS (PRESCRIPTION/-OTC), AND HOW AND WHEN TO REPORT PROBLEMS. [code = SKILLED NURSE TO REVIEW PATIENT MEDICATIONS. INSTRUCT PATIENT/CAREGIVER ON MONITORING OF EFFECTIVENESS, ADVERSE DRUG REACTIONS, SIDE EFFECTS OF ALL MEDICATIONS (PRESCRIPTION/-OTC), AND HOW AND WHEN TO REPORT PROBLEMS.] Future Scheduled Test SKILLED NU RSE FOR O/A AND TEACHING RELATED TO BREAST INCLUDING SIGNS AND SYMPTOMS OF DISEASE PROGRESSION, TREATMENT, AND MANAGEMENT OF POTENTIAL SIDE EFFECTS. [code = SKILLED NURSE FOR O/A AND TEACHING RELATED TO BREAST INCLUDING SIGNS AND SYMPTOMS OF DISEASE PROGRESSION, TREATMENT, AND MANAGEMENT OF POTENTIAL SIDE EFFECTS.] Future Scheduled Test SKILLED NU RSE FOR O/A, TEACHING, AND MANAGEMENT OF CAD, HLD. [code = SKILLED NURSE FOR O/A, TEACHING, AND MANAGEMENT OF CAD, HLD.] Future Scheduled Test SKILLED NU RSE FOR O/A, TEACHING RELATED GERD FOR EARLY IDENTIFICATION OF EXACERBATION OF DISEASE PROCESS. [code = SKILLED NURSE FOR O/A, TEACHING RELATED GERD FOR EARLY IDENTIFICATION OF EXACERBATION OF DISEASE PROCESS.] Future Scheduled Test SKILLED NU RSE FOR O/A, TEACHING AND MANAGEMENT OF RECURRENT UTI FOR EARLY IDENTIFICATION OF EXACERBATION OF DISEASE PROCESS [code = SKILLED NURSE FOR O/A, TEACHING AND MANAGEMENT OF RECURRENT UTI FOR EARLY IDENTIFICATION OF EXACERBATION OF DISEASE PROCESS] Future Scheduled Test SKILLED NU RSE FOR O/A OF RESPIRATORY SYSTEM TO IDENTIFY CHANGES ASSOCIATED WITH EXACERBATION AND TO PROVIDE SKILLED TEACHING ON MANAGEMENT OF ASTHMA PROCESS. [code = SKILLED NURSE FOR O/A OF RESPIRATORY SYSTEM TO IDENTIFY CHANGES ASSOCIATED WITH EXACERBATION AND TO PROVIDE SKILLED TEACHING ON MANAGEMENT OF ASTHMA PROCESS.] Future Scheduled Test SKILLED NU RSE FOR TEACHING ON ADMINSTRATION OF INHALATION THERAPY AND CARE OF INCENTIVE SPIROMETER. [code = SKILLED NURSE FOR TEACHING ON ADMINSTRATION OF INHALATION THERAPY AND CARE OF INCENTIVE SPIROMETER.] Future Scheduled Test NEED FOR S KILLED TEACHING AND INTERVENTION RELATED TO SURGICAL WOUND IN .SKILLED NURSE OR TRAINED PATIENT/CAREGIVER TO PERFORM WOUND CARE USING ASEPTIC TECHNIQUE, CLEANSE/IRRIGATE WITH VASHE TO STERNAL, UPPER ABDOMINAL AND RIGHT INNER CALF INCISION.PAT DRY WITH DRY CLEAN GAUZE, LEAVE OPEN TO AIR. PATIENT/HEEL LAYER WILL PERFORM THIS TWICE DAILY BETWEEN NURSING VISITS. 1-2 PRN SKILLED NURSE VISITS FOR WOUND CARE DUE TO COMPLICATIONS. SKILLED NURSE TO OBTAIN WOUND CULTURE PRN S/S OF INFECTION. WOUND CARE WILL BE PERFORMED BY TRAINED CAREGIVER ON DAYS WHEN SKILLED NURSE IS NOT SCHEDULED FOR A VISIT. DISCONTINUE WOUND CARE/SUPPLIES ONCE WOUND IS HEALED. [code = NEED FOR SKILLED TEACHING AND INTERVENTION RELATED TO SURGICAL WOUND IN .SKILLED NURSE OR TRAINED PATIENT/CAREGIVER TO PERFORM WOUND CARE USING ASEPTIC TECHNIQUE, CLEANSE/IRRIGATE WITH VASHE TO STERNAL, UPPER ABDOMINAL AND RIGHT INNER CALF INCISION.PAT DRY WITH DRY CLEAN GAUZE, LEAVE OPEN TO AIR. PATIENT/HEEL LAYER WILL PERFORM THIS TWICE DAILY BETWEEN NURSING VISITS. 1-2 PRN SKILLED NURSE VISITS FOR WOUND CARE DUE TO COMPLICATIONS. SKILLED NURSE TO OBTAIN WOUND CULTURE PRN S/S OF INFECTION. WOUND CARE WILL BE PERFORMED BY TRAINED CAREGIVER ON DAYS WHEN SKILLED NURSE IS NOT SCHEDULED FOR A VISIT. DISCONTINUE WOUND CARE/SUPPLIES ONCE WOUND IS HEALED.] Future Scheduled Test SKILLED NU RSE TO ASSESS HOME SAFETY FOR PATIENT WITH IMPAIRED VISION AND INSTRUCT PATIENT/CAREGIVER ON SAFETY TECHNIQUES FOR ADLS AND IADLS, MEDICATION MANAGEMENT, AND HOME ADAPTATION. [code = SKILLED NURSE TO ASSESS HOME SAFETY FOR PATIENT WITH IMPAIRED VISION AND INSTRUCT PATIENT/CAREGIVER ON SAFETY TECHNIQUES FOR ADLS AND IADLS, MEDICATION MANAGEMENT, AND HOME ADAPTATION.] Future Scheduled Test SKILLED NU RSE TO INSTRUCT PATIENT/CAREGIVER ON SIGNS AND SYMPTOMS, RISK FACTORS, COMPLICATIONS, AND MANAGEMENT OF ATRIAL FIBRILLATION. [code = SKILLED NURSE TO INSTRUCT PATIENT/CAREGIVER ON SIGNS AND SYMPTOMS, RISK FACTORS, COMPLICATIONS, AND MANAGEMENT OF ATRIAL FIBRILLATION.] Future Scheduled Test SKILLED NU RSE TO PROVIDE TEACHING ON SIGNS AND SYMPTOMS AND MANAGEMENT OF HYPERTENSION. [code = SKILLED NURSE TO PROVIDE TEACHING ON SIGNS AND SYMPTOMS AND MANAGEMENT OF HYPERTENSION.] Future Scheduled Test SKILLED NU RSE FOR O/A AND SKILLED TEACHING RELATED TO SIGNS AND SYMPTOMS AND MANAGEMENT OF ANEMIA. [code = SKILLED NURSE FOR O/A AND SKILLED TEACHING RELATED TO SIGNS AND SYMPTOMS AND MANAGEMENT OF ANEMIA.] Future Scheduled Test SKILLED NU RSE FOR O/A AND TEACHING OF DIABETIC MANAGEMENT INCLUDING BLOOD SUGAR MONITORING/USE OF GLUCOMETER, DIABETIC DIET, LOWER EXTREMITY SKIN INSPECTION, PROPER SKIN/FOOT CARE, AND SIGNS AND SYMPTOMS HYPO/HYPERGLYCEMIA TO REPORT. [code = SKILLED NURSE FOR O/A AND TEACHING OF DIABETIC MANAGEMENT INCLUDING BLOOD SUGAR MONITORING/USE OF GLUCOMETER, DIABETIC DIET, LOWER EXTREMITY SKIN INSPECTION, PROPER SKIN/FOOT CARE, AND SIGNS AND SYMPTOMS HYPO/HYPERGLYCEMIA TO REPORT.] Future Scheduled Test SKILLED NU RSE FOR O/A AND SKILLED TEACHING RELATED TO SIGNS AND SYMPTOMS AND MANAGEMENT OF OA, FIBROMIALGIA. [code = SKILLED NURSE FOR O/A AND SKILLED TEACHING RELATED TO SIGNS AND SYMPTOMS AND MANAGEMENT OF OA, FIBROMIALGIA.] Future Scheduled Test START WEEK OF 02/09/24 VIRTUAL VISIT FREQUENCY: 1-6 PER WEEK X 3 WEEKS AND 6 PRN VIRTUAL VISITS MAY BE PERFORMED UTILIZING TELECOMMUNICATIONS SYSTEM TO OPTIMIZE SKILLED SERVICES FURNISHED ON THE PLAN OF CARE. SKILLED NURSE TO ESTABLISH SUPPORT MEASURES TO MINIMIZE RISK OF REHOSPITALIZATION, AND INSTRUCT PATIENT/CAREGIVER ON METHODS TO REDUCE AVOIDABLE HOSPITALIZATION. [code = START WEEK OF 02/09/24 VIRTUAL VISIT FREQUENCY: 1-6 PER WEEK X 3 WEEKS AND 6 PRN VIRTUAL VISITS MAY BE PERFORMED UTILIZING TELECOMMUNICATIONS SYSTEM TO OPTIMIZE SKILLED SERVICES FURNISHED ON THE PLAN OF CARE. SKILLED NURSE TO ESTABLISH SUPPORT MEASURES TO MINIMIZE RISK OF REHOSPITALIZATION, AND INSTRUCT PATIENT/CAREGIVER ON METHODS TO REDUCE AVOIDABLE HOSPITALIZATION.] Future Scheduled Test PATIENT [place] S A RISK OF HOSPITALIZATION AND ED USE. SKILLED NURSE TO ESTABLISH SUPPORT MEASURES TO MINIMIZE RISK OF HOSPITALIZATION AND ED USE, AND INSTRUCT PATIENT/CAREGIVER ON METHODS TO REDUCE AVOIDABLE HOSPITALIZATION AND ED USE. [code = PATIENT HAS A RISK OF HOSPITALIZATION AND ED USE. SKILLED NURSE TO ESTABLISH SUPPORT MEASURES TO MINIMIZE RISK OF HOSPITALIZATION AND ED USE, AND INSTRUCT PATIENT/CAREGIVER ON METHODS TO REDUCE AVOIDABLE HOSPITALIZATION AND ED USE.] Future Scheduled Test SKILLED NU RSE TO PROVIDE INSTRUCTION TO PATIENT/CAREGIVER RELATED TO DISCHARGE PLANNING. [code = SKILLED NURSE TO PROVIDE INSTRUCTION TO PATIENT/CAREGIVER RELATED TO DISCHARGE PLANNING.] Future Scheduled Test SKILLED NU RSE TO PERFORM HOME SAFETY AND FALL ASSESSMENT AND PROVIDE INSTRUCTION TO IMPLEMENT HOME SAFETY AND FALL PREVENTION STRATEGIES. [code = SKILLED NURSE TO PERFORM HOME SAFETY AND FALL ASSESSMENT AND PROVIDE INSTRUCTION TO IMPLEMENT HOME SAFETY AND FALL PREVENTION STRATEGIES.] Future Scheduled Test SKILLED NU RSE FOR OBSERVATION AND ASSESSMENT OF PATIENTS PAIN LEVEL AND EFFECTIVENESS OF PAIN MANAGEMENT REGIMEN. SKILLED NURSE TO INSTRUCT PATIENT/CAREGIVER REGARDING PHARMACOLOGIC AND NON-PHARMACOLOGIC PAIN CONTROL MEASURES. SKILLED NURSE TO REPORT TO PHYSICIAN IF PAIN IS UNCONTROLLED WITH CURRENT PAIN MANAGEMENT REGIMEN. [code = SKILLED NURSE FOR OBSERVATION AND ASSESSMENT OF PATIENTS PAIN LEVEL AND EFFECTIVENESS OF PAIN MANAGEMENT REGIMEN. SKILLED NURSE TO INSTRUCT PATIENT/CAREGIVER REGARDING PHARMACOLOGIC AND NON-PHARMACOLOGIC PAIN CONTROL MEASURES. SKILLED NURSE TO REPORT TO PHYSICIAN IF PAIN IS UNCONTROLLED WITH CURRENT PAIN MANAGEMENT REGIMEN.] Future Scheduled Test SKILLED NU RSE TO ASSESS PATIENT'S SKIN INTEGRITY AND INSTRUCT PATIENT/CAREGIVER ON MEASURES TO PREVENT PRESSURE ULCERS. [code = SKILLED NURSE TO ASSESS PATIENT'S SKIN INTEGRITY AND INSTRUCT PATIENT/CAREGIVER ON MEASURES TO PREVENT PRESSURE ULCERS.] Future Scheduled Test SKILLED NU RSE TO PROVIDE ASSESSMENT AND TEACHING/REINFORCEMENT OF MANAGEMENT OF DEPRESSION INCLUDING DISEASE PROCESS, MEDICATION MANAGEMENT, COPING SKILLS AND IDENTIFY CHANGES ASSOCIATED WITH DEPRESSIVE DISORDERS FOR EARLY INTERVENTION. [code = SKILLED NURSE TO PROVIDE ASSESSMENT AND TEACHING/REINFORCEMENT OF MANAGEMENT OF DEPRESSION INCLUDING DISEASE PROCESS, MEDICATION MANAGEMENT, COPING SKILLS AND IDENTIFY CHANGES ASSOCIATED WITH DEPRESSIVE DISORDERS FOR EARLY INTERVENTION.] Future Scheduled Test SKILLED NU RSE TO INSTRUCT PATIENT/CAREGIVER ON CARE AND MANAGEMENT OF SUPRAPUBIC CATHETER. SKILLED NURSE FOR SUPRAPUBIC CATHETER INSERTION/MAINTENANCE UTILIZING 18 FR 10 ML BALLOON, CHANGE Q 4 WEEKS AND PRN FOR LEAKING OR MALFUNCTIONING. IRRIGATE SUPRAPUBIC CATHETER WITH 30-60CC NORMAL SALINE PRN BLOCKAGE/LEAKAGE, HEAVY SEDIMENT. 1 - 3 PRN ASSISTED VISITS FOR CATHETER CHANGE(S) AND/OR TROUBLESHOOTING. [code = SKILLED NURSE TO INSTRUCT PATIENT/CAREGIVER ON CARE AND MANAGEMENT OF SUPRAPUBIC CATHETER. SKILLED NURSE FOR SUPRAPUBIC CATHETER INSERTION/MAINTENANCE UTILIZING 18 FR 10 ML BALLOON, CHANGE Q 4 WEEKS AND PRN FOR LEAKING OR MALFUNCTIONING. IRRIGATE SUPRAPUBIC CATHETER WITH 30-60CC NORMAL SALINE PRN BLOCKAGE/LEAKAGE, HEAVY SEDIMENT. 1 - 3 PRN ASSISTED VISITS FOR CATHETER CHANGE(S) AND/OR TROUBLESHOOTING.] Goal 2024-03-04 Patient Goal - TO FEEL BOBBY R Goal Provider Goal - A PLAN OF CARE WILL BE ESTABLISHED THAT MEETS PATIENT'S ASSISTED NEEDS AND INCLUDES PATIENT GOAL FOR HOME HEALTH. Goal Provider Goal - PATIENT / CAREGIVER WILL VERBALIZE UNDERSTANDING OF EFFECTS OF URINARY INCONTINENCE BY THE END OF THE CERTIFICATION PERIOD. Goal Provider Goal - PATIENT/CAREGIVER WILL VERBALIZE UNDERSTANDING OF EDUCATION PROVIDED ON MEDICATIONS BY THE END OF THE CERTIFICATION PERIOD. Goal Provider Goal - PATIENT/CAREGIVER WILL VERBALIZE/DEMONSTRATE THR MANAGEMENT OF BREAST CANCER AND THE SIDE EFFECTS OF TREATMENTS DURING THIS EPISODE. Goal Provider Goal - PATIENT/CAREGIVER WILL VERBALIZE/DEMONSTRATE MANAGEMENT OF CORONARY ARTERY DISEASE, HLD PROCESS AND EXACERBATIONS WILL BE IDENTIFIED AND PROMPTLY REPORTED THROUGHOUT THE CERTIFICATION PERIOD. Goal Provider Goal - EXACERBATIONS OF GERDVWILL BE PROMPTLY IDENTIFIED AND INTERVENTIONS IMPLEMENTED TO MINIMIZE RISKS TO PATIENT BY END OF EPISODE. Goal Provider Goal - PATIENT/CAREGIVER WILL VERBALIZE UNDERSTANDING OF GENITOURINARY DISEASE PROCESS, AND EXACERBATIONS OF GENITOURINARY DISEASE WILL BE PROMPTLY IDENTIFIED FOR EARLY INTERVENTION THROUGHOUT THE CERTIFICATION PERIOD. Goal Provider Goal - PATIENT/CAREGIVER WILL VERBALIZE/DEMONSTRATE MANAGEMENT OF RESPIRATORY DISEASE PROCESS. CHANGES IN RESPIRATORY STATUS WILL BE IDENTIFIED AND REPORTED TO PHYSICIAN FOR PROMPT INTERVENTION THROUGHOUT THE CERTIFICATION PERIOD. Goal Provider Goal - PATIENT/CAREGIVER WILL VERBALIZE/DEMONSTRATE INDEPENDENCE WITH ADMINISTRATION OF ORDERED INHALATION THERAPY AND CARE OF EQUIPMENT A RESULT OF SKILLED TEACHING THROUGHOUT THE EPISODE. Goal Provider Goal - WOUND CARE WILL BE COMPLETED AND PATIENT WILL HAVE IMPROVED WOUND STATUS EVIDENCED BY NO SIGNS AND SYMPTOMS OF INFECTION, DECREASED WOUND SIZE, AND/OR NO COMPLICATIONS BY THE END OF THE CERTIFICATION PERIOD. Goal Provider Goal - PATIENT/CAREGIVER WILL BE ABLE TO APPLY PRINCIPLES OF ENVIRONMENTAL MODIFICATION TO MAINTAIN THE LEVEL OF SAFETY FOR THE LOW VISION PATIENT WITHIN THE HOME SETTING AND PREVENT FALL/INJURY THIS EPISODE Goal Provider Goal - PATIENT/CAREGIVER WILL VERBALIZE UNDERSTANDING OF SIGNS AND SYMPTOMS, COMPLICATIONS, AND MANAGEMENT OF ATRIAL FIBRILLATION THROUGHOUT THE CERTIFICATION PERIOD. Goal Provider Goal - PATIENT/CAREGIVER WILL VERBALIZE SIGNS AND SYMPTOMS OF HYPERTENSION AND WILL BE ABLE TO DEMONSTRATE ABILITY TO MANAGE EXACERBATION BY END OF THE EPISODE. Goal Provider Goal - PATIENT/CARGIVER WILL VERBALIZE UNDERSTANDING OF ANEMIA INCLUDING SIGNS AND SYMPTOMS, MANAGEMENT OF COMPLICATIONS, AND PRESCRIBED TREATMENT REGIMEN BY END OF EPISODE. Goal Provider Goal - PATIENT/CAREGIVER WILL VERBALIZE/DEMONSTRATE KNOWLEDGE OF DIABETIC MANAGEMENT. CHANGES IN DIABETIC STATUS WILL BE IDENTIFIED AND REPORTED TO PHYSICIAN FOR PROMPT INTERVENTION THROUGHOUT THE CERTIFICATION PERIOD. Goal Provider Goal - PATIENT/CAREGIVER WILL VERBALIZE UNDERSTANDING OF MUSCULOSKELETAL DISEASE INCLUDING SIGNS AND SYMPTOMS, MANAGEMENT, AND PRESCRIBED TREATMENT REGIMEN BY END OF EPISODE. Goal Provider Goal - PATIENT/CAREGIVER WILL UTILIZE VIRTUAL VISITS TO ACHIEVE GOALS OUTLINED ON THE PLAN OF CARE. PATIENT WILL HAVE SUPPORT MEASURES ESTABLISHED TO PREVENT HOSPITALIZATION AND PATIENT/CAREGIVER WILL VERBALIZE/DEMONSTRATE METHODS TO REDUCE AVOIDABLE HOSPITALIZATION THROUGHOUT THE CERTIFICATION PERIOD. Goal Provider Goal - PATIENT WILL HAVE SUPPORT MEASURES ESTABLISHED TO PREVENT HOSPITALIZATION AND ED USE AND PATIENT/CAREGIVER WILL VERBALIZE/DEMONSTRATE METHODS TO REDUCE AVOIDABLE HOSPITALIZATION AND ED USE BY END OF EPISODE. Goal Provider Goal - PATIENT/CAREGIVER WILL VERBALIZE UNDERSTANDING OF DISCHARGE PLANNING INSTRUCTIONS BY DATE OF DISCHARGE. Goal Provider Goal - PATIENT/CAREGIVER WILL VERBALIZE/DEMONSTRATE EFFECTIVE HOME SAFETY AND FALL PREVENTION STRATEGIES THROUGHOUT CERTIFICATION PERIOD. Goal Provider Goal - PATIENT/CAREGIVER WILL DEMONSTRATE UNDERSTANDING OF PHARMACOLOGIC AND NONPHARMACOLOGIC PAIN CONTROL MEASURES AND PATIENT WILL HAVE IMPROVEMENT IN PAIN INTERFERING WITH ACTIVITY EVIDENCED BY PAIN CONTROLLED AT LEVEL OF 7 OR LESS BY END OF CERTIFICATION PERIOD. Goal Provider Goal - PATIENT/CAREGIVER WILL VERBALIZE UNDERSTANDING OF PRESSURE ULCER PREVENTION BY END OF THE EPISODE. Goal Provider Goal - PATIENT/CAREGIVER WILL VERBALIZE/DEMONSTRATE UNDERSTANDING OF THE MANAGEMENT OF DEPRESSION THROUGHOUT THE CERTIFICATION PERIOD AND SYMPTOMS ARE IDENTIFIED AND MANAGED TO MAINTAIN PATIENT SAFETY IN THE HOME. Goal Provider Goal - PATIENT WILL VERBALIZE TOLERANCE OF CATHETER CHANGE AND KNOWLEDGE OF REQUIRED CARE TO MANAGE SUPRAPUBIC CATHETER WITHOUT COMPLICATIONS BY THE END OF THE CERTIFICATION PERIOD Reason for Visit INDEPENDENT IN THE COMMUNITY Encounters Start Date/Time End Date/Time Encounter Type Admission Type Attending [facility] Care Department Encounter ID Discharge Date Discharge Status Discharge Condition Discharge Reason Percent Goals Met 2024-02-05 00:00:00 2024-03-04 00:00:00 Outpatient JOSE RO[facility] [id number] 2024-03-04 00:00:00 DISCHARGE TO HOME OR SELF CARE INDEPENDEN T IN THE COMMUNITY NO LONGER HOMEBOUND ( ONLY) 47.62
== END 2024-08-19 11:11 | disposition home or self-care (01) ==
LOC: HO.LAB 11:10
PROVIDERS: PCP Family Medicine; Visit Provider Family Medicine
DX: I12.9 Hypertensive chronic kidney disease with stage 1 through stage 4 chronic kidney disease, or unspecified chronic kidney disease (principal); N18.30 Chronic kidney disease, stage 3 unspecified; N39.0 Urinary tract infection, site not specified; N31.9 Neuromuscular dysfunction of bladder, unspecified
CPT/HCPCS: 36415; 80051; 82565; 83735; 84520; 99212

== ENCOUNTER 2024-08-19 13:20 | Outpatient (AMB) | payer MEDICARE, OTHER, SELFPAY ==
--- NOTE | 2024-08-19 13:39 | MHC.OFFVIS ---
Intake Visit Reasons: 6m/ follow up/SPT Intake Note: Patient is present for 6M/SPT Urology Medication:FLUACONZOLE,SULFAMETHOXAZOLE OXYBUTNIN Antibiotic Allergy:AMOXICILLIN,CIPROFLOXACIN,PENICILLIN,LEVOFLOXACIN,DOXAZSIN,CEPHALEXIN Blood Thinner:ASPIRIN Windows Systems Administrator Required: No Allergies amoxicillin [AMOXICILLIN] Allergy (Severe, Verified 08/19/24 13:41) stroke, blood clots ciprofloxacin [From CIPRO] Allergy (Severe, Verified 08/19/24 13:41) ANAPHYLAXIS Iodinated Contrast Media [IV DYE, IODINE CONTAINING CONTRAST ] Allergy (Severe, Verified 08/19/24 13:41) HIVES levofloxacin Allergy (Severe, Verified 08/19/24 13:41) Anaphylaxis liraglutide Allergy (Severe, Verified 08/19/24 13:41) Headache Penicillins Allergy (Severe, Verified 08/19/24 13:41) stroke, blood clots phenazopyridine [Pyridium] Allergy (Severe, Verified 08/19/24 13:41) Anaphylaxis FREYA Inhibitors Allergy (Intermediate, Verified 08/19/24 13:41) Cough ARB-Angiotensin Receptor Antagonist Allergy (Intermediate, Verified 08/19/24 13:41) Cough cefpodoxime Allergy (Intermediate, Verified 08/19/24 13:41) Dizziness, nausea doxazosin Allergy (Intermediate, Verified 08/19/24 13:41) Shortness of Breath fluticasone [Advair Diskus] Allergy (Intermediate, Verified 08/19/24 13:41) Anxiety gabapentin [From Neurontin] Allergy (Intermediate, Verified 08/19/24 13:41) Headache hydralazine Allergy (Intermediate, Verified 08/19/24 13:41) Shortness of Breath latex Allergy (Intermediate, Verified 08/19/24 13:41) Hives linezolid Allergy (Intermediate, Verified 08/19/24 13:41) Nausea and Vomiting meloxicam Allergy (Intermediate, Verified 08/19/24 13:41) Unknown salmeterol [Advair Diskus] Allergy (Intermediate, Verified 08/19/24 13:41) Anxiety Tetanus Vaccines and Toxoid Allergy (Intermediate, Verified 08/19/24 13:41) Swelling torsemide Allergy (Intermediate, Verified 08/19/24 13:41) Shortness of Breath cephalexin [Keflex] Allergy (Mild, Verified 08/19/24 13:41) Nausea HPI Comments Details: Kaitlin is a very pleasant female. She is a patient of Dr. Tijerina. She is here for the following urologic conditions - neurogenic bladder - recurrent UTI - nephrolithiasis - stress incontinence Continuous drainage Suprapubic tube is rotated every 3 weeks Receiving IV antibiotics for recurrent infection Discussed recent microbiology finding Appears to be sensitive gentamicin Infusion place Urinary retention with incomplete bladder emptying Incomplete emptying Suprapubic tube placed October 2021 Background of diabetes Has CLL and is on chronic immunosuppression which increases risk of infection substantially Nephrolithiasis 11/28 - ultrasound bilateral stones 8 mm left, 5 mm right Urinary Tract Infection: Last UTI - ceftriaxone 1gm daily 5 days They present for recurrent UTI's. Associated constipation - allergies to cipro - did have penicillin desensitization. The frequency of recurrences has been persistent recurrence. Therapy has included - Gentamicin instillation - macrobid - not well tolerated 06/27 Augmentin and 3rd generation all capsules poor in 07/28 Macrobid and 3rd generation careful support. Prior cultures have shown 05/25 - klebsiella sp.- Gentamicin resistant 06/25 - MicroDNA - enteroccus/E.coli 10^4 Bactrim/macrobid/levaquin 12/25 Microgen - 3 species - levaquin/ cefpodoxime 12/26 E.Coli levaquin/macrobid 05/28 E.Coli levaquin/gentamycin 06/27 E.Coli and Enterococcus 09/28 Strep Agalact - tx with 5 days kelfex. Recent testing included 09/28 Bladder biopsy with chronic inflammation - rectocele with incomplete emptying. Relevant medical history diabetes Yes constipation Yes incomplete bladder emptying Yes renal stones No genitourinary surgery Yes association of infections with intercourse No history of vesicoureteral reflux No Therapeutic plan will include suprapubic tube placement [facility] Medical History Osteoarthritis Morbid obesity Allergy to multiple antibiotics Depression Arthritis of left hip Wears dentures Neurogenic urinary bladder disorder History of blood transfusion History of CVA (cerebrovascular accident) Seasonal allergies History of numbness PONV (postoperative nausea and vomiting) Self-catheterizes urinary bladder Diabetes with neurologic complications Type 2 diabetes mellitus with unspecified complications Anemia CLL (chronic lymphocytic leukemia) Sleep apnea Diabetes mellitus CLL (chronic lymphocytic leukemia) Arthritis Fibromyalgia Hypercholesterolemia Hypertension History of bilateral breast cancer Urinary retention with incomplete bladder emptying Surgical History (Updated 07/31/24 @ 14:27 by MARCELINO Olivera) History of open heart surgery (~01/31/24) History of total left hip replacement S/P Botox injection History of suprapubic catheter S/P left breast biopsy History of esophagogastroduodenoscopy (EGD) Hx of colonoscopy History of bladder repair surgery History of total hysterectomy S/P breast biopsy, right History of back surgery History of biopsy of bladder Family History Mother Breast cancer Father Heart disease Father Lung cancer Mother Colon cancer Brother Pancreatic cancer Social History Household Members: Spouse Housing: House Are you a primary wound care specialist to a significant other at home: No Do you presently have visiting nurse or other home services: Yes Alcohol intake: never Comment: patient refused telesiter,removed per pt request Patient Tobacco Use Status: Never used Tobacco Advance Directives Date on File: 07/30/23 service: No Current occupational status: retired Female Reproductive History Menstrual Age of Menarche: 15 Review of Systems Const Denies chills and Denies fever(s) Card Reports no additional complaints and Denies syncope Resp Denies cough GI Denies abdominal pain and Denies heartburn Reports as per HPI and Denies change in libido Neuro Denies syncope Psych Denies change in libido Endo Denies change in libido Physical Exam Const General: cooperative, healthy appearing, comfortable and no acute distress Orientation/consciousness: patient oriented x3 HEENT Face and sinus: Yes normal facial exam Mouth: moist mucous membranes Neck Neck: Yes normal visual inspection, Yes full ROM and Yes trachea midline Chest Chest palpation & inspection: normal inspection of the chest Resp Effort & Inspection: normal respiratory effort, able to speak in complete sentences and no respiratory distress GI Inspection: Yes normal to inspection Back/Spine/Pelvis Cervical Spine: normal cervical lordosis Thoracic/Lumbar Spine: thoracic and lumbar spine normal to inspection Skin General skin exam: no rashes or lesions noted Neuro General: patient oriented x3, gait normal, tone normal and moves all extremities Extrem General: Yes normal to inspection and Yes capillary refill normal Assessment & Plan Assessment & Plan (1) Complicated urinary tract infection: Code(s): N39.0 - Urinary tract infection, site not specified Category: Medical (2) Neurogenic urinary bladder disorder: Code(s): N31.9 - Neuromuscular dysfunction of bladder, unspecified Category: Medical Plan Continue treatment as needed Orders: Referrals Infusion Center Notification N31.9 - Neuromuscular dysfunction of bladder, unspecified, N39.0 - Urinary tract infection, site not specified Patient Instructions: Imaging studies, laboratory and physical exam results were discussed and reviewed in detail. No major barriers to patient understanding were identified. An opportunity to ask questions regarding the treatment plan was provided. All questions were answered. The patient expressed understanding and agreement with the above treatment plan. The patient is aware they should contact our office by phone for worsening of their current condition or the appearance of new urologic symptoms. Compliance is encouraged with any medications and followup testing that is ordered. It is a privilege to participate in the urologic care of your patient. If you have any questions or concerns regarding treatment for the above conditions, or other urologic issues, please do not hesitate to contact me. The office telephone contact is [phone]. This note is constructed using voice recognition software. While every effort has been made to ensure accuracy floating labor gang supervisor errors may have been included. Yours sincerely, Dr Ceferino Hayes MD, [facility] - Urology Providers of Expert, Compassionate Care for the Genitourinary System Coding Level of Care Code Est Pt Level 3 (93717) Diagnoses Complicated urinary tract infection N39.0 Neurogenic urinary bladder disorder N31.9
--- OUTSIDE RECORDS SUMMARY | 2024-08-20 02:25 | XMS_ITS | Clinical Summary ---
Author Organization Unknown Care Team Providers Care Stopping Builder Name Role Phone MELANIA RAUSCH, ELLEN Unavailable Unavailable TOMY MC, JOSE Unavailable Unavailable Payers Payer Name Policy Type Policy Number Effective Date Expira tion Date MEDICARE - NGS [place] - PDGM [id number] Problems Condition Name Condition Details Condition Category Status Onset Date Resolution Date Last Treatment Date Treating Clinician Comments ENCNTR FOR SURGICAL AFTCR FOLLOWING SURGERY ON THE CIRC SYS Active 02-04 00:00: 00 TYPE 2 DIABETES MELLITUS WITHOUT COMPLICATION S Active 02-04 00:00: 00 PAROXYSMAL ATRIAL FIBRILLATION Active 02-04 00:00: 00 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 02-04 00:00: 00 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 Active 02-04 00:00: 00 MALIGNANT NEOPLASM OF UNSP SITE OF UNSPECIFIED FEMALE BREAST Active 02-04 00:00: 00 ANEMIA IN NEOPLASTIC DISEASE Active 02-04 00:00: 00 ATHSCL HEART DISEASE OF [place] CORONARY ARTERY W/O ANG PCTRS Active 02-04 [...] 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 Active 02-04 00:00: 00 CUSTODIAL (CURRENT) USE OF ASPIRIN Active 02-04 00:00: 00 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) USE OF ORAL HYPOGLYCEMIC DRUGS Active [...] 2-17 00:00: 00 01-20 23:59 :00 No [id number] 1 tablet BEDTIME 1 tablet BEDTIME (route: oral) Med Classific ation: Cardiovas cular Therapy Agents pantoprazol e 40 mg tablet,sonia yed release 2- 00:00: 00 01-23 00:00 :00 No [id number] 1 tablet DAILY 1 tablet DAILY (route: oral) Med Classific ation: Gastroint estinal Therapy Agents nitrofurant oin monohydrate /macrocryst als 100 mg capsule 2-13 00:00: 00 11-01 23:59 :00 No [id number] 1 capsule TWICE A DAY FOR UTI FOR 10 DAYS 1 capsule TWICE A DAY FOR UTI FOR 10 DAYS (route: oral) Med Classific ation: Genitouri nary Therapy metformin 1,000 mg tablet - 00:00: 00 01-20 23:59 :00 No [id number] 1 tablet TWICE A DAY DIRECTED 1 tablet TWICE A DAY DIRECTED (route: oral) Med Classific ation: Endocrine amlodipine 10 mg tablet 11-15 00:00: 00 01-20 23:59 :00 No [id number] 1 tablet DAILY 1 tablet DAILY (route: oral) Med Classific ation: Cardiovas cular Therapy Agents ascorbic acid (vitamin C) 1,000 mg capsule 11-15 00:00: 00 01-20 23:59 :00 No [id number] 1 capsule DAILY 1 capsule DAILY (route: oral) Med Classific ation: Electroly te Balance-N utritiona l Products Aspirin Childrens 81 mg chewable tablet 11-15 00:00: 00 01-20 23:59 :00 No [id number] 1 tablet DAILY 1 tablet DAILY (route: oral) Med Classific ation: Hematolog ical Agents carvedilol 25 mg tablet - 00:00: 00 01-20 23:59 :00 No [id number] 1 tablet 2 TIMES DAILY 1 tablet 2 TIMES DAILY (route: oral) Med Classific ation: Cardiovas cular Therapy Agents citalopram 20 mg tablet - 00:00: 00 01-20 23:59 :00 No [id number] 1 tablet DAILY 1 tablet DAILY (route: oral) Med Classific ation: Central Nervous System Agents cyclobenzap rine 5 mg tablet 11-15 00:00: 00 01-20 23:59 :00 No [id number] 1 tablet BEDTIME 1 tablet BEDTIME (route: oral) Med Classific ation: Locomotor System duloxetine 60 mg capsule,del ayed release 11-15 00:00: 00 01-20 23:59 :00 No [id number] 1 capsule DAILY 1 capsule DAILY (route: oral) Med Classific ation: Central Nervous System Agents famotidine 40 mg tablet 11-15 00:00: 00 01-20 23:59 :00 No [id number] 1 tablet BEDTIME 1 tablet BEDTIME (route: oral) Med Classific ation: Gastroint estinal Therapy Agents ferrous sulfate 325 mg (65 mg iron) tablet 11-15 00:00: 00 01-20 23:59 :00 No [id number] 1 tablet DAILY 1 tablet DAILY (route: oral) Med Classific ation: Electroly te Balance-N utritiona l Products furosemide 40 mg tablet 11-15 00:00: 00 12-24 23:59 :00 No [id number] 1 tablet DAILY 1 tablet DAILY (route: oral) Med Classific ation: Cardiovas cular Therapy Agents hydralazine 25 mg tablet 11-15 00:00: 00 12-24 23:59 :00 No [id number] 1 tablet 3 TIMES DAILY 1 tablet 3 TIMES DAILY (route: oral) Med Classific ation: Cardiovas cular Therapy Agents Imbruvica 420 mg tablet 11-15 00:00: 00 01-20 23:59 :00 No [id number] 1 tablet DAILY 1 tablet DAILY (route: oral) Med Classific ation: Antineopl astics Imbruvica 420 mg tablet 11-15 00:00: 00 12-24 00:00 :00 No [id number] 1 tablet DAILY 1 tablet DAILY (route: oral) Med Classific ation: Antineopl astics Januvia 100 mg tablet 11-15 00:00: 00 12-24 23:59 :00 No [id number] 1 tablet DAILY 1 tablet DAILY (route: oral) Med Classific ation: Endocrine pregabalin 150 mg capsule 09 00:00: 00 01-20 23:59 :00 No [id number] 1 capsule 2 TIMES DAILY 1 capsule 2 TIMES DAILY (route: oral) Med Classific ation: Central Nervous System Agents Senna Lax 8.6 mg tablet 11-15 00:00: 00 01-20 23:59 :00 No [id number] 2 tablet BEDTIME 2 tablet BEDTIME (route: oral) Med Classific ation: Gastroint estinal Therapy Agents solifenacin 5 mg tablet 11-15 00:00: 00 01-23 00:00 :00 No [id number] 1 tablet DAILY 1 tablet DAILY (route: oral) Med Classific ation: Genitouri nary Therapy spironolact one 25 mg tablet 11-15 00:00: 00 01-20 23:59 :00 No [id number] 1 tablet DAILY 1 tablet DAILY (route: oral) Med Classific ation: Cardiovas cular Therapy Agents sulindac 150 mg tablet 11-15 00:00: 00 01-23 00:00 :00 No [id number] 1 tablet 2 TIMES DAILY 1 tablet 2 TIMES DAILY (route: oral) Med Classific ation: Analgesic , Anti-infl ammatory or Antipyret ic nitrofurant oin macrocrysta l 100 mg capsule 3-24 00:00: 00 12-24 23:59 :00 No [id number] 1 capsule 2 TIMES DAILY 1 capsule 2 TIMES DAILY (route: oral) Med Classific ation: Genitouri nary Therapy Macrobid 100 mg capsule 4-10 00:00: 00 12-24 23:59 :00 No [id number] 100 mg 2 TIMES DAILY 100 mg 2 TIMES DAILY (route: oral) Med Classific ation: Genitouri nary Therapy cefpodoxime 100 mg tablet 4-16 00:00: 00 12-25 23:59 :00 No [id number] 1 tablet 2 TIMES DAILY 1 tablet 2 TIMES DAILY (route: oral) Med Classific ation: Anti-Infe ctive Agents Citracal-D3 Maximum Plus 325 mg-12.5 mcg-2.75 mg tablet 12-24 00:00: 00 01-20 23:59 :00 No [id number] 1 tablet EVERY AM 1 tablet EVERY AM (route: oral) Med Classific ation: Electroly te Balance-N utritiona l Products magnesium oxide 500 mg capsule 12-24 00:00: 00 01-23 00:00 :00 No [id number] 1 capsule EVERY PM 1 capsule EVERY PM (route: oral) Med Classific ation: Electroly te Balance-N utritiona l Products Multiple Vitamins tablet 12-24 00:00: 00 01-20 23:59 :00 No [id number] 1 tablet EVERY AM 1 tablet EVERY AM (route: oral) Med Classific ation: Electroly te Balance-N utritiona l Products acetaminoph en 325 mg tablet 01-23 00:00: 00 01-20 23:59 :00 No [id number] 2 tablet EVERY 6 HOURS 2 tablet EVERY 6 HOURS (route: oral) Med Classific ation: Analgesic , Anti-infl ammatory or Antipyret ic coenzyme Q10 100 mg capsule 01-23 00:00: 00 01-20 23:59 :00 No [id number] 1 capsule BEDTIME 1 capsule BEDTIME (route: oral) Med Classific ation: Alternati ve Therapy docusate sodium 100 mg capsule 01-22 00:00: 00 01-20 23:59 :00 No [id number] 1 capsule 2 TIMES DAILY 1 capsule 2 TIMES DAILY (route: oral) Med Classific ation: Gastroint estinal Therapy Agents enoxaparin 40 mg/0.4 mL subcutaneou s syringe 01-23 00:00: 00 02-07 23:59 :00 No [id number] 0.4 mL DAILY 0.4 mL DAILY (route: subcutaneo us) Med Classific ation: Hematolog ical Agents furosemide 20 mg tablet 01-22 00:00: 00 01-20 23:59 :00 No [id number] 1 tablet DAILY 1 tablet DAILY (route: oral) Med Classific ation: Cardiovas cular Therapy Agents magnesium oxide 400 mg (241.3 mg magnesium) tablet 01-23 00:00: 00 01-20 23:59 :00 No [id number] 1 tablet BEDTIME 1 tablet BEDTIME (route: oral) Med Classific ation: Electroly te Balance-N utritiona l Products omeprazole 20 mg tablet,sonia yed release 01-22 00:00: 00 01-20 23:59 :00 No [id number] 1 tablet DAILY 1 tablet DAILY (route: oral) Med Classific ation: Gastroint estinal Therapy Agents oxycodone 5 mg tablet 01-22 00:00: 00 01-20 23:59 :00 No [id number] 1 tablet EVERY 4 HOURS 1 tablet EVERY 4 HOURS (route: oral) Med Classific ation: Analgesic , Anti-infl ammatory or Antipyret ic oxycodone ER 10 mg tablet,vanda h resistant,e xtended release 12 hr 01-23 00:00: 00 01-20 23:59 :00 No [id number] 1 tablet EVERY 12 HOURS 1 tablet EVERY 12 HOURS (route: oral) Med Classific ation: Analgesic , Anti-infl ammatory or Antipyret ic polyethylen e glycol 3350 17 gram/dose oral powder 01-22 00:00: 00 01-20 23:59 :00 No [id number] 17 gram DAILY 17 gram DAILY (route: oral) Med Classific ation: Gastroint estinal Therapy Agents fluconazole 150 mg tablet 01-28 00:00: 00 01-20 23:59 :00 No [id number] 1 tablet DIRECTED 1 tablet DIRECTED (route: oral) Med Classific ation: Anti-Infe ctive Agents fluconazole 150 mg tablet 01-16 00:00: 00 02-04 23:59 :00 No [id number] Per instruc tions EVERY 3 DAYS FOR YEAST INFECTION FOR 6 DAYS Per instructio ns EVERY 3 DAYS FOR YEAST INFECTION FOR 6 DAYS (route: oral) Med Classific ation: Anti-Infe ctive Agents duloxetine 60 mg capsule,del ayed release 01-08 00:00: 00 Yes [id number] Per instruc tions EVERY DAY Per instructio ns EVERY DAY (route: oral) Med Classific ation: Central Nervous System Agents pantoprazol e 40 mg tablet,sonia yed release 01-07 00:00: 00 Yes [id number] Per instruc tions TWICE A DAY Per instructio ns TWICE A DAY (route: oral) Med Classific ation: Gastroint estinal Therapy Agents amlodipine 10 mg tablet 01-05 00:00: 00 02-04 23:59 :00 No [id number] Per instruc tions EVERY DAY Per instructio ns EVERY DAY (route: oral) Med Classific ation: Cardiovas cular Therapy Agents metformin 1,000 mg tablet 01-04 00:00: 00 02-04 23:59 :00 No [id number] Per instruc tions TWICE A DAY DIRECTED Per instructio ns TWICE A DAY DIRECTED (route: oral) Med Classific ation: Endocrine pregabalin 150 mg capsule 12-23 00:00: 00 Yes [id number] Per instruc tions 2 (TWO) TIMES A DAY Per instructio ns 2 (TWO) TIMES A DAY (route: oral) Med Classific ation: Central Nervous System Agents acetaminoph en 325 mg tablet 02-04 00:00: 00 Yes [id number] 1 tablet EVERY 6 HOURS 1 tablet EVERY 6 HOURS (route: oral) Med Classific ation: Analgesic , Anti-infl ammatory or Antipyret ic amiodarone 200 mg tablet 02-04 00:00: 00 02-12 23:59 :00 No [id number] 1 tablet 2 TIMES DAILY 1 tablet 2 TIMES DAILY (route: oral) Med Classific ation: Cardiovas cular Therapy Agents amlodipine 5 mg tablet 02-04 00:00: 00 Yes [id number] 1 tablet DAILY 1 tablet DAILY (route: oral) Med Classific ation: Cardiovas cular Therapy Agents ascorbic acid (vitamin C) 500 mg tablet 02-04 00:00: 00 Yes [id number] 1 tablet 2 TIMES DAILY 1 tablet 2 TIMES DAILY (route: oral) Med Classific ation: Electroly te Balance-N utritiona l Products aspirin 81 mg tablet,sonia yed release 02-04 00:00: 00 Yes [id number] 1 tablet DAILY 1 tablet DAILY (route: oral) Med Classific ation: Hematolog ical Agents atorvastati n 80 mg tablet 02-04 00:00: 00 Yes [id number] 1 tablet DIRECTED 1 tablet DIRECTED (route: oral) Med Classific ation: Cardiovas cular Therapy Agents cholecalcif tiera (vitamin D3) 10 mcg (400 unit) capsule 02-04 00:00: 00 Yes [id number] 1 capsule DAILY 1 capsule DAILY (route: oral) Med Classific ation: Electroly te Balance-N utritiona l Products citalopram 20 mg tablet 02-04 00:00: 00 Yes [id number] 1 tablet DAILY 1 tablet DAILY (route: oral) Med Classific ation: Central Nervous System Agents furosemide 40 mg tablet 02-04 00:00: 00 02-12 23:59 :00 No [id number] 1 tablet 2 TIMES DAILY 1 tablet 2 TIMES DAILY (route: oral) Med Classific ation: Cardiovas cular Therapy Agents Humalog KwikPen (U-100) Insulin 100 unit/mL subcutaneou s 02-04 00:00: 00 Yes [id number] Per instruc tions DIRECTED Per instructio ns DIRECTED (route: subcutaneo us) Med Classific ation: Endocrine Imbruvica 140 mg tablet 02-04 00:00: 00 Yes [id number] 1 tablet DAILY 1 tablet DAILY (route: oral) Med Classific ation: Antineopl astics insulin glargine (U-100) 100 unit/mL (3 mL) subcutaneou s pen 02-04 00:00: 00 Yes [id number] 19 unit DIRECTED 19 unit DIRECTED (route: subcutaneo us) Med Classific ation: Endocrine insulin lispro (U-100) 100 unit/mL subcutaneou s pen 02-04 00:00: 00 Yes [id number] 8 unit DIRECTED 8 unit DIRECTED (route: subcutaneo us) Med Classific ation: Endocrine metformin 500 mg tablet 02-04 00:00: 00 Yes [id number] 1 tablet 2 TIMES DAILY 1 tablet 2 TIMES DAILY (route: oral) Med Classific ation: Endocrine metoprolol succinate ER 25 mg tablet,exte nded release 24 hr 02-04 00:00: 00 Yes [id number] Per instruc tions DAILY Per instructio ns DAILY (route: oral) Med Classific ation: Cardiovas cular Therapy Agents Aldactone 25 mg tablet 02-16 00:00: 00 Yes [id number] 25 mg DAILY 25 mg DAILY (route: [...] DRY CLEAN GAUZE, LEAVE OPEN TO AIR. PATIENT/EDITOR INDEX WILL PERFORM THIS TWICE DAILY BETWEEN NURSING [...] DRY CLEAN GAUZE, LEAVE OPEN TO AIR. PATIENT/EDITOR INDEX WILL PERFORM THIS TWICE DAILY BETWEEN NURSING [...] BLOCKAGE/LEAKAGE, HEAVY SEDIMENT. 1 - 3 PRN DETENTION VISITS FOR CATHETER CHANGE(S) AND/OR TROUBLESHOOTING. [code = SKILLED NURSE TO INSTRUCT PATIENT/CAREGIVER ON CARE AND MANAGEMENT OF SUPRAPUBIC CATHETER. SKILLED NURSE FOR SUPRAPUBIC CATHETER INSERTION/MAINTENANCE UTILIZING 18 FR 10 ML BALLOON, CHANGE Q 4 WEEKS AND PRN FOR LEAKING OR MALFUNCTIONING. IRRIGATE SUPRAPUBIC CATHETER WITH 30-60CC NORMAL SALINE PRN BLOCKAGE/LEAKAGE, HEAVY SEDIMENT. 1 - 3 PRN DETENTION VISITS FOR CATHETER CHANGE(S) AND/OR TROUBLESHOOTING.] Goal 2024-03-04 Patient Goal - TO FEEL BOBBY R Goal Provider Goal - A PLAN OF CARE WILL BE ESTABLISHED THAT MEETS PATIENT'S DETENTION NEEDS AND INCLUDES PATIENT GOAL FOR HOME [...] End Date/Time Encounter Type Admission Type Attending [facility] Care Department Encounter ID Discharge Date Discharge Status Discharge Condition Discharge Reason Percent Goals Met 2024-02-05 00:00:00 2024-03-04 00:00:00 Outpatient JOSE ROSA [facility] [id number] 2024-03-04 00:00:00 DISCHARGE TO HOME OR SELF CARE INDEPENDEN T IN THE COMMUNITY NO LONGER HOMEBOUND ( ONLY) 47.62
--- OUTSIDE RECORDS SUMMARY | 2024-08-20 02:25 | XMS_ITS | Clinical Summary ---
Author Organization Unknown Care Team Providers Care Maxillofacial Prosthodontist Name Role Phone MELANIA RAUSCH, ELLEN Unavailable Unavailable TOMY MC, JOSE Unavailable Unavailable Payers Payer Name Policy Type Policy Number Effective Date Expira tion Date MEDICARE - NGS [place] - PDGM [id number] Problems Condition Name Condition Details Condition Category Status Onset Date Resolution Date Last Treatment Date Treating Clinician Comments ENCNTR FOR SURGICAL AFTCR FOLLOWING SURGERY ON THE CIRC SYS Active 02-04 00:00: 00 TYPE 2 DIABETES MELLITUS WITHOUT COMPLICATION S Active 02-04 00:00: 00 PAROXYSMAL ATRIAL FIBRILLATION Active 02-04 00:00: 00 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 Active 02-04 00:00: 00 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 Active 02-04 00:00: 00 MALIGNANT NEOPLASM OF UNSP SITE OF UNSPECIFIED FEMALE BREAST Active 02-04 00:00: 00 ANEMIA IN NEOPLASTIC DISEASE Active 02-04 00:00: 00 ATHSCL HEART DISEASE OF [place] CORONARY ARTERY W/O ANG PCTRS Active 02-04 [...] 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 Active 02-04 00:00: 00 [facility] (CURRENT) USE OF ASPIRIN Active 02-04 00:00: 00 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 OPERATOR (CURRENT) USE OF ORAL HYPOGLYCEMIC DRUGS [...] 2-17 00:00: 00 01-20 23:59 :00 No [id number] 1 tablet BEDTIME 1 tablet BEDTIME (route: oral) Med Classific ation: Cardiovas cular Therapy Agents pantoprazol e 40 mg tablet,sonia yed release 2- 00:00: 00 01-23 00:00 :00 No [id number] 1 tablet DAILY 1 tablet DAILY (route: oral) Med Classific ation: Gastroint estinal Therapy Agents nitrofurant oin monohydrate /macrocryst als 100 mg capsule 2-13 00:00: 00 11-01 23:59 :00 No [id number] 1 capsule TWICE A DAY FOR UTI FOR 10 DAYS 1 capsule TWICE A DAY FOR UTI FOR 10 DAYS (route: oral) Med Classific ation: Genitouri nary Therapy metformin 1,000 mg tablet - 00:00: 00 01-20 23:59 :00 No [id number] 1 tablet TWICE A DAY DIRECTED 1 tablet TWICE A DAY DIRECTED (route: oral) Med Classific ation: Endocrine amlodipine 10 mg tablet 11-15 00:00: 00 01-20 23:59 :00 No [id number] 1 tablet DAILY 1 tablet DAILY (route: oral) Med Classific ation: Cardiovas cular Therapy Agents ascorbic acid (vitamin C) 1,000 mg capsule 11-15 00:00: 00 01-20 23:59 :00 No [id number] 1 capsule DAILY 1 capsule DAILY (route: oral) Med Classific ation: Electroly te Balance-N utritiona l Products Aspirin Childrens 81 mg chewable tablet 11-15 00:00: 00 01-20 23:59 :00 No [id number] 1 tablet DAILY 1 tablet DAILY (route: oral) Med Classific ation: Hematolog ical Agents carvedilol 25 mg tablet - 00:00: 00 01-20 23:59 :00 No [id number] 1 tablet 2 TIMES DAILY 1 tablet 2 TIMES DAILY (route: oral) Med Classific ation: Cardiovas cular Therapy Agents citalopram 20 mg tablet - 00:00: 00 01-20 23:59 :00 No [id number] 1 tablet DAILY 1 tablet DAILY (route: oral) Med Classific ation: Central Nervous System Agents cyclobenzap rine 5 mg tablet 11-15 00:00: 00 01-20 23:59 :00 No [id number] 1 tablet BEDTIME 1 tablet BEDTIME (route: oral) Med Classific ation: Locomotor System duloxetine 60 mg capsule,del ayed release 11-15 00:00: 00 01-20 23:59 :00 No [id number] 1 capsule DAILY 1 capsule DAILY (route: oral) Med Classific ation: Central Nervous System Agents famotidine 40 mg tablet 11-15 00:00: 00 01-20 23:59 :00 No [id number] 1 tablet BEDTIME 1 tablet BEDTIME (route: oral) Med Classific ation: Gastroint estinal Therapy Agents ferrous sulfate 325 mg (65 mg iron) tablet 11-15 00:00: 00 01-20 23:59 :00 No [id number] 1 tablet DAILY 1 tablet DAILY (route: oral) Med Classific ation: Electroly te Balance-N utritiona l Products furosemide 40 mg tablet 11-15 00:00: 00 12-24 23:59 :00 No [id number] 1 tablet DAILY 1 tablet DAILY (route: oral) Med Classific ation: Cardiovas cular Therapy Agents hydralazine 25 mg tablet 11-15 00:00: 00 12-24 23:59 :00 No [id number] 1 tablet 3 TIMES DAILY 1 tablet 3 TIMES DAILY (route: oral) Med Classific ation: Cardiovas cular Therapy Agents Imbruvica 420 mg tablet 11-15 00:00: 00 01-20 23:59 :00 No [id number] 1 tablet DAILY 1 tablet DAILY (route: oral) Med Classific ation: Antineopl astics Imbruvica 420 mg tablet 11-15 00:00: 00 12-24 00:00 :00 No [id number] 1 tablet DAILY 1 tablet DAILY (route: oral) Med Classific ation: Antineopl astics Januvia 100 mg tablet 11-15 00:00: 00 12-24 23:59 :00 No [id number] 1 tablet DAILY 1 tablet DAILY (route: oral) Med Classific ation: Endocrine pregabalin 150 mg capsule 09 00:00: 00 01-20 23:59 :00 No [id number] 1 capsule 2 TIMES DAILY 1 capsule 2 TIMES DAILY (route: oral) Med Classific ation: Central Nervous System Agents Senna Lax 8.6 mg tablet 11-15 00:00: 00 01-20 23:59 :00 No [id number] 2 tablet BEDTIME 2 tablet BEDTIME (route: oral) Med Classific ation: Gastroint estinal Therapy Agents solifenacin 5 mg tablet 11-15 00:00: 00 01-23 00:00 :00 No [id number] 1 tablet DAILY 1 tablet DAILY (route: oral) Med Classific ation: Genitouri nary Therapy spironolact one 25 mg tablet 11-15 00:00: 00 01-20 23:59 :00 No [id number] 1 tablet DAILY 1 tablet DAILY (route: oral) Med Classific ation: Cardiovas cular Therapy Agents sulindac 150 mg tablet 11-15 00:00: 00 01-23 00:00 :00 No [id number] 1 tablet 2 TIMES DAILY 1 tablet 2 TIMES DAILY (route: oral) Med Classific ation: Analgesic , Anti-infl ammatory or Antipyret ic nitrofurant oin macrocrysta l 100 mg capsule 3-24 00:00: 00 12-24 23:59 :00 No [id number] 1 capsule 2 TIMES DAILY 1 capsule 2 TIMES DAILY (route: oral) Med Classific ation: Genitouri nary Therapy Macrobid 100 mg capsule 4-10 00:00: 00 12-24 23:59 :00 No [id number] 100 mg 2 TIMES DAILY 100 mg 2 TIMES DAILY (route: oral) Med Classific ation: Genitouri nary Therapy cefpodoxime 100 mg tablet 4-16 00:00: 00 12-25 23:59 :00 No [id number] 1 tablet 2 TIMES DAILY 1 tablet 2 TIMES DAILY (route: oral) Med Classific ation: Anti-Infe ctive Agents Citracal-D3 Maximum Plus 325 mg-12.5 mcg-2.75 mg tablet 12-24 00:00: 00 01-20 23:59 :00 No [id number] 1 tablet EVERY AM 1 tablet EVERY AM (route: oral) Med Classific ation: Electroly te Balance-N utritiona l Products magnesium oxide 500 mg capsule 12-24 00:00: 00 01-23 00:00 :00 No [id number] 1 capsule EVERY PM 1 capsule EVERY PM (route: oral) Med Classific ation: Electroly te Balance-N utritiona l Products Multiple Vitamins tablet 12-24 00:00: 00 01-20 23:59 :00 No [id number] 1 tablet EVERY AM 1 tablet EVERY AM (route: oral) Med Classific ation: Electroly te Balance-N utritiona l Products acetaminoph en 325 mg tablet 01-23 00:00: 00 01-20 23:59 :00 No [id number] 2 tablet EVERY 6 HOURS 2 tablet EVERY 6 HOURS (route: oral) Med Classific ation: Analgesic , Anti-infl ammatory or Antipyret ic coenzyme Q10 100 mg capsule 01-23 00:00: 00 01-20 23:59 :00 No [id number] 1 capsule BEDTIME 1 capsule BEDTIME (route: oral) Med Classific ation: Alternati ve Therapy docusate sodium 100 mg capsule 01-22 00:00: 00 01-20 23:59 :00 No [id number] 1 capsule 2 TIMES DAILY 1 capsule 2 TIMES DAILY (route: oral) Med Classific ation: Gastroint estinal Therapy Agents enoxaparin 40 mg/0.4 mL subcutaneou s syringe 01-23 00:00: 00 02-07 23:59 :00 No [id number] 0.4 mL DAILY 0.4 mL DAILY (route: subcutaneo us) Med Classific ation: Hematolog ical Agents furosemide 20 mg tablet 01-22 00:00: 00 01-20 23:59 :00 No [id number] 1 tablet DAILY 1 tablet DAILY (route: oral) Med Classific ation: Cardiovas cular Therapy Agents magnesium oxide 400 mg (241.3 mg magnesium) tablet 01-23 00:00: 00 01-20 23:59 :00 No [id number] 1 tablet BEDTIME 1 tablet BEDTIME (route: oral) Med Classific ation: Electroly te Balance-N utritiona l Products omeprazole 20 mg tablet,sonia yed release 01-22 00:00: 00 01-20 23:59 :00 No [id number] 1 tablet DAILY 1 tablet DAILY (route: oral) Med Classific ation: Gastroint estinal Therapy Agents oxycodone 5 mg tablet 01-22 00:00: 00 01-20 23:59 :00 No [id number] 1 tablet EVERY 4 HOURS 1 tablet EVERY 4 HOURS (route: oral) Med Classific ation: Analgesic , Anti-infl ammatory or Antipyret ic oxycodone ER 10 mg tablet,vanda h resistant,e xtended release 12 hr 01-23 00:00: 00 01-20 23:59 :00 No [id number] 1 tablet EVERY 12 HOURS 1 tablet EVERY 12 HOURS (route: oral) Med Classific ation: Analgesic , Anti-infl ammatory or Antipyret ic polyethylen e glycol 3350 17 gram/dose oral powder 01-22 00:00: 00 01-20 23:59 :00 No [id number] 17 gram DAILY 17 gram DAILY (route: oral) Med Classific ation: Gastroint estinal Therapy Agents fluconazole 150 mg tablet 01-28 00:00: 00 01-20 23:59 :00 No [id number] 1 tablet DIRECTED 1 tablet DIRECTED (route: oral) Med Classific ation: Anti-Infe ctive Agents fluconazole 150 mg tablet 01-16 00:00: 00 02-04 23:59 :00 No [id number] Per instruc tions EVERY 3 DAYS FOR YEAST INFECTION FOR 6 DAYS Per instructio ns EVERY 3 DAYS FOR YEAST INFECTION FOR 6 DAYS (route: oral) Med Classific ation: Anti-Infe ctive Agents duloxetine 60 mg capsule,del ayed release 01-08 00:00: 00 Yes [id number] Per instruc tions EVERY DAY Per instructio ns EVERY DAY (route: oral) Med Classific ation: Central Nervous System Agents pantoprazol e 40 mg tablet,sonia yed release 01-07 00:00: 00 Yes [id number] Per instruc tions TWICE A DAY Per instructio ns TWICE A DAY (route: oral) Med Classific ation: Gastroint estinal Therapy Agents amlodipine 10 mg tablet 01-05 00:00: 00 02-04 23:59 :00 No [id number] Per instruc tions EVERY DAY Per instructio ns EVERY DAY (route: oral) Med Classific ation: Cardiovas cular Therapy Agents metformin 1,000 mg tablet 01-04 00:00: 00 02-04 23:59 :00 No [id number] Per instruc tions TWICE A DAY DIRECTED Per instructio ns TWICE A DAY DIRECTED (route: oral) Med Classific ation: Endocrine pregabalin 150 mg capsule 12-23 00:00: 00 Yes [id number] Per instruc tions 2 (TWO) TIMES A DAY Per instructio ns 2 (TWO) TIMES A DAY (route: oral) Med Classific ation: Central Nervous System Agents acetaminoph en 325 mg tablet 02-04 00:00: 00 Yes [id number] 1 tablet EVERY 6 HOURS 1 tablet EVERY 6 HOURS (route: oral) Med Classific ation: Analgesic , Anti-infl ammatory or Antipyret ic amiodarone 200 mg tablet 02-04 00:00: 00 02-12 23:59 :00 No [id number] 1 tablet 2 TIMES DAILY 1 tablet 2 TIMES DAILY (route: oral) Med Classific ation: Cardiovas cular Therapy Agents amlodipine 5 mg tablet 02-04 00:00: 00 Yes [id number] 1 tablet DAILY 1 tablet DAILY (route: oral) Med Classific ation: Cardiovas cular Therapy Agents ascorbic acid (vitamin C) 500 mg tablet 02-04 00:00: 00 Yes [id number] 1 tablet 2 TIMES DAILY 1 tablet 2 TIMES DAILY (route: oral) Med Classific ation: Electroly te Balance-N utritiona l Products aspirin 81 mg tablet,sonia yed release 02-04 00:00: 00 Yes [id number] 1 tablet DAILY 1 tablet DAILY (route: oral) Med Classific ation: Hematolog ical Agents atorvastati n 80 mg tablet 02-04 00:00: 00 Yes [id number] 1 tablet DIRECTED 1 tablet DIRECTED (route: oral) Med Classific ation: Cardiovas cular Therapy Agents cholecalcif tiera (vitamin D3) 10 mcg (400 unit) capsule 02-04 00:00: 00 Yes [id number] 1 capsule DAILY 1 capsule DAILY (route: oral) Med Classific ation: Electroly te Balance-N utritiona l Products citalopram 20 mg tablet 02-04 00:00: 00 Yes [id number] 1 tablet DAILY 1 tablet DAILY (route: oral) Med Classific ation: Central Nervous System Agents furosemide 40 mg tablet 02-04 00:00: 00 02-12 23:59 :00 No [id number] 1 tablet 2 TIMES DAILY 1 tablet 2 TIMES DAILY (route: oral) Med Classific ation: Cardiovas cular Therapy Agents Humalog KwikPen (U-100) Insulin 100 unit/mL subcutaneou s 02-04 00:00: 00 Yes [id number] Per instruc tions DIRECTED Per instructio ns DIRECTED (route: subcutaneo us) Med Classific ation: Endocrine Imbruvica 140 mg tablet 02-04 00:00: 00 Yes [id number] 1 tablet DAILY 1 tablet DAILY (route: oral) Med Classific ation: Antineopl astics insulin glargine (U-100) 100 unit/mL (3 mL) subcutaneou s pen 02-04 00:00: 00 Yes [id number] 19 unit DIRECTED 19 unit DIRECTED (route: subcutaneo us) Med Classific ation: Endocrine insulin lispro (U-100) 100 unit/mL subcutaneou s pen 02-04 00:00: 00 Yes [id number] 8 unit DIRECTED 8 unit DIRECTED (route: subcutaneo us) Med Classific ation: Endocrine metformin 500 mg tablet 02-04 00:00: 00 Yes [id number] 1 tablet 2 TIMES DAILY 1 tablet 2 TIMES DAILY (route: oral) Med Classific ation: Endocrine metoprolol succinate ER 25 mg tablet,exte nded release 24 hr 02-04 00:00: 00 Yes [id number] Per instruc tions DAILY Per instructio ns DAILY (route: oral) Med Classific ation: Cardiovas cular Therapy Agents Aldactone 25 mg tablet 02-16 00:00: 00 Yes [id number] 25 mg DAILY 25 mg DAILY (route: [...] DRY CLEAN GAUZE, LEAVE OPEN TO AIR. PATIENT/DOOR AND ARRIVAL ATTENDANT WILL PERFORM THIS TWICE DAILY BETWEEN NURSING [...] DRY CLEAN GAUZE, LEAVE OPEN TO AIR. PATIENT/DOOR AND ARRIVAL ATTENDANT WILL PERFORM THIS TWICE DAILY BETWEEN NURSING [...] BLOCKAGE/LEAKAGE, HEAVY SEDIMENT. 1 - 3 PRN HALFWAY VISITS FOR CATHETER CHANGE(S) AND/OR TROUBLESHOOTING. [code = SKILLED NURSE TO INSTRUCT PATIENT/CAREGIVER ON CARE AND MANAGEMENT OF SUPRAPUBIC CATHETER. SKILLED NURSE FOR SUPRAPUBIC CATHETER INSERTION/MAINTENANCE UTILIZING 18 FR 10 ML BALLOON, CHANGE Q 4 WEEKS AND PRN FOR LEAKING OR MALFUNCTIONING. IRRIGATE SUPRAPUBIC CATHETER WITH 30-60CC NORMAL SALINE PRN BLOCKAGE/LEAKAGE, HEAVY SEDIMENT. 1 - 3 PRN HALFWAY VISITS FOR CATHETER CHANGE(S) AND/OR TROUBLESHOOTING.] Goal 2024-03-04 Patient Goal - TO FEEL BOBBY R Goal Provider Goal - A PLAN OF CARE WILL BE ESTABLISHED THAT MEETS PATIENT'S HALFWAY NEEDS AND INCLUDES PATIENT GOAL FOR HOME [...] End Date/Time Encounter Type Admission Type Attending [facility] Care Department Encounter ID Discharge Date Discharge Status Discharge Condition Discharge Reason Percent Goals Met 2024-02-05 00:00:00 2024-03-04 00:00:00 Outpatient JOSE ROSA [facility] [id number] 2024-03-04 00:00:00 DISCHARGE TO HOME OR SELF CARE INDEPENDEN T IN THE COMMUNITY NO LONGER HOMEBOUND ( ONLY) 47.62
== END 2024-08-19 14:39 | disposition home or self-care (01) ==
PROVIDERS: PCP Family Medicine; Visit Provider Urology
DX: N39.0 Urinary tract infection, site not specified (principal); N31.9 Neuromuscular dysfunction of bladder, unspecified
CPT/HCPCS: 99213

== ENCOUNTER 2024-08-21 19:50 | Emergency (ER) | payer MEDICARE, OTHER, SELFPAY ==
--- OUTSIDE RECORDS SUMMARY | 2024-08-21 19:52 | XMS_ITS ---
Author Organization [facility] Address [address] [place] [address] Care Team Providers Care Cold Storage Superintendent Name Role Phone Ricardo Breen MD Primary Care Provider Unavailab Sylvia Kirkpatrick Unavailable [phone] Prosper Henson Unavailable [phone] Allergies Allergen (clinical drug ingredient) Drug/Non Drug [...] 024 Encounters Encounter Location Date Provider Diagnosis [facility] [place] [address] [place] [address] 04/16/2024 Prosper Henson Type 2 diabetes mellitus [...] Reason: Provider Name:Sylvia yu, 10/15/2024 02:45:00 PM, [address] [place] [address], [phone], Procedure Notes * Category Sub-Category Detail Notes [...] as necessary. Patient chooses, no pharmaceutical tx (64375) Keratoma Treatment Parring or Cutting o f Benign Hyperkeratotic Lesion(s) 15454 ( >4 Lesions) - The Benign hyperkeratotic lesions, as described above were pared, and/or cut utilizing a sterile #15 blade, tissue nippers, and/or dremel Progress Notes * Kaitlin BROWN MDOB:[birth year] (78 yo F)Acc No.[id number]:04/16/2024 Progress Note Patient:?Kaitlin Brown Noel Provider:?Prosper Henson DPM :1945???Age:78 Y???Sex:Female D ate:04/16/2024 Address:[address] [place], [place] Pcp:Ricardo Breen MD Subjective: * Chief Complaints: [...] as necessary. Patient chooses, no pharmaceutical tx (70124).?Keratoma Treatment:?Parring or Cutting of Benign Hyperkeratotic Lesion(s)?02235 ( >4 Lesions) - The Benign hyperkeratotic lesions, as described above were pared, and/or cut utilizing a sterile #15 blade, tissue nippers, and/or dremel.? * Procedure Codes:?25943 DEBRI DE NAIL, 6 OR MORE, Modifiers: XS 06843 TRIM SKIN LESIONS, OVER 4, Modifiers: XS * Follow Up:?3 Months * Images: * Sign off status: Completed true * Provider:?Prosper Henson DPM Date:? 024 Generated for Jeny ball/Chance/Pallavi on:?08/21/2024 07:52 PM EST History and Physical Notes * [...]
--- OUTSIDE RECORDS SUMMARY | 2024-08-21 19:52 | XMS_ITS ---
Author [facility] Address [address] [place] [address] Care Team Providers Care Casting Machine Control Board Operator Name Role Phone Ricardo Breen MD Primary Care Provider UnavailSylvia Iglesias Unavailable [phone] Allergies Allergen (clinical drug ingredient) Drug/Non Drug [...] Polyneuropathy due to type 2 diabetes mellitus (737143972) Type 2 diabetes mellitus with diabetic polyneuropathy (E11.42) Active confirmed Problem Polyneuropathy due to diabetes mellitus type I (317893877) Type 1 diabetes mellitus with diabetic polyneuropathy (E10.42) Active confirmed Vital Signs Height 5 ft 4 in in 07/16/2024 Weight 195 lbs 07/16/2024 BMI 33.47 kg/m2 07/16/2024 Blood pressure systolic 141 mm Hg 07/16/20 24 Blood pressure diastolic 52 mm Hg 024 Procedures Procedure Date Ordered Date Performed Result Body Sit e 65840-ZGSMPBN NAIL, 6 OR MORE 07/16/2024 N/A 19085-USYF SKIN LESIONS, 2 TO 4 07/16/2024 N/A Encounters Encounter Location Date Provider Diagnosis [facility] [address] [address] 07/16/2024 Sylvia Hernandezaker Type 2 diabetes mellitus with diabetic polyneuropathy E11.42 and Tinea unguium B35.1 Assessments Encounter Date Diagnosis (ICD Code) Assessment Notes Treatment Notes Treatment Clinical Notes Section Notes 07/16/2024 Type 2 diabetes mellitus with diabetic polyneuropathy (ICD-10 - E11.42) 07/16/2024 Tinea unguium (ICD-10 - B35.1) Plan Of Treatment Pending Test Test Name Order Date 57601-VQWQFWV NAIL, 6 OR MORE 07/16/2024 32299-XJUB SKIN LESIONS, 2 TO 4 07/16/20 24 Next Appt Details Follow Up: prn, Reason: Provider Name:Sylvia Zarate aimee, 10/15/2024 02:45:00 PM, [address] [place], [address], Procedure Notes * Category Sub-Category Detail Notes [...] use of a nail nipper and/or dremel-type head bone grinder, to a more viable healthy nail plate or bed tissue 6-10. Silver nitrate used for any petechial bleeding as necessary. Definitive antifungal treatment options have been reviewed and discussed with the patient. The patient chooses, no pharmaceutical tx - 96874 Keratoma Treatment Parring or Cutting o f Benign Hyperkeratotic Lesion(s) (-56) 2-4 Lesions - The Benign hyperkeratotic lesions, as described in exam, were pared, and/or cut utilizing a sterile 15 blade, tissue nippers, and/or dremel - 38214 Progress Notes * Kaitlin BROWN MDOB:[birth year] (79 yo F)Acc No.[id number]:07/16/2024 Progress Note Patient:?Kaitlin Brown Provider:?Sylvia Nguyễn DPM :1945???Age:79 Y???Sex:Female D ate:07/16/2024 Address:[facility] [address] [place] Pcp:Ricardo Breen MD Subjective: * Chief Complaints: [...] use of a nail nipper and/or dremel-type head bone grinder, to a more viable healthy nail plate or bed tissue 6-10. Silver nitrate used for any petechial bleeding as necessary. Definitive antifungal treatment options have been reviewed and discussed with the patient. The patient chooses, no pharmaceutical tx - 67089.?Keratoma Treatment:?Parring or Cutting of Benign Hyperkeratotic Lesion(s)?(-56) 2-4 Lesions - The Benign hyperkeratotic lesions, as described in exam, were pared, and/or cut utilizing a sterile 15 blade, tissue nippers, and/or dremel - 68465.? * Procedure Codes:?65780 DEBRI DE NAIL, 6 OR MORE, Modifiers: XS 41483 TRIM SKIN LESIONS, 2 TO 4, Modifiers: XS * Follow Up:?prn * Images: * Sign off status: Completed true * Provider:?Sylvia Nguyễn DPM Date:?1 09/15/2023 Generated for Jeny ball/Chance/eTransmitting on:?08/21/2024 07:52 PM EST History and Physical [...]
--- OUTSIDE RECORDS SUMMARY | 2024-08-21 19:52 | XMS_ITS ---
Author Organization [facility] Address [address] [place] [address] Care Team Providers Care Sql Application Developer Name Role Phone Ricardo Breen MD Primary Care Provider Unavailab Sylvia Kirkpatrick Unavailable [phone] Prosper Henson Unavailable [phone] REASON FOR VISIT Painful nail(s) aggrevated by shoes and causing difficulty standing/walking. Medications Medication SIG (Take, Route, Frequency, Duration) Notes Start Date End Date Status Voltaren 1 % as directed Externally Active Encounters Encounter Location Date Provider Diagnosis [facility] [address] [place] [address] 02/05/2024 Prosper Henson Type 2 diabetes mellitus [...] Provider Name:Sylvia Hernandezclayton yu, 10/15/2024 02:45:00 PM, [address] [place] [address], [phone], Procedure Notes * Category Sub-Category Detail Notes [...] as necessary. Patient chooses, no pharmaceutical tx (69124) Keratoma Treatment Parring or Cutting o f Benign Hyperkeratotic Lesion(s) 76657 ( >4 Lesions) - The Benign hyperkeratotic lesions, as described above were pared, and/or cut utilizing a sterile #15 blade, tissue nippers, and/or dremel Progress Notes * Kaitlin BROWN MDOB:[birth year] (79 yo F)Acc No.[id number]:02/05/2024 Progress Note Patient:?Kaitlin BROWN Provider:?Prosper Henson DPM :1945???Age:78 Y???Sex:Female D ate:02/05/2024 Address:[address] [place] [address] [facility] Pcp:Ricardo Breen, MD Subjective: * Chief Complaints: [...] as necessary. Patient chooses, no pharmaceutical tx (05235).?Keratoma Treatment:?Parring or Cutting of Benign Hyperkeratotic Lesion(s)?02626 ( >4 Lesions) - The Benign hyperkeratotic lesions, as described above were pared, and/or cut utilizing a sterile #15 blade, tissue nippers, and/or dremel.? * Procedure Codes:?42027 DEBRI DE NAIL, 6 OR MORE, Modifiers: XS , 87127 TRIM SKIN LESIONS, OVER 4, Modifiers: XS [...]
--- OUTSIDE RECORDS SUMMARY | 2024-08-21 19:53 | XMS_ITS | Patient Health Record ---
Author Organization [facility] Address [address] [facility] [place] [address] Care Team Providers Care Green Building Engineer Name Role Phone Jamshid RAUSCH, Ricardo Primary Care Provider Unavailab Sylvia Kirkpatrick Unavailable [phone] Prosper Henson Unavailable [phone] Allergies Allergen (clinical drug ingredient) Drug/Non Drug [...] Status Risk Notes Problem Acquired hallux valgus (13659582) Hallux valgus (acquired), left foot (M20.12) Active confirmed Problem Polyneuropathy due to diabetes mellitus type I (905699009) Type 1 diabetes mellitus with diabetic polyneuropathy (E10.42) Active confirmed Problem Polyneuropathy due to type 2 diabetes mellitus (076103375) Type 2 diabetes mellitus with diabetic polyneuropathy (E11.42) Active confirmed Problem Localized, primary osteoarthritis of the ankle and/or foot (269730266) Primary osteoarthritis, left ankle and foot (M19.072) Active confirmed Problem Acquired hallux rigidus (2258264) Hallux rigidus, left foot (M20.22) Active confirmed Problem Non-pressure chronic ulcer of other part of left foot limited to breakdown of skin (L97.521) Active confirmed Problem Non-pressure chronic ulcer of other part of right foot limited to breakdown of skin (L97.511) Active confirmed Problem Polyneuropathy due to type 2 diabetes mellitus (803657578) Type 2 diabetes mellitus with diabetic polyneuropathy (E11.42) Active confirmed Problem Polyneuropathy due to diabetes mellitus type I (547928592) Type 1 diabetes mellitus with diabetic polyneuropathy (E10.42) Active confirmed Vital Signs Blood pressure diastolic 52 mm Hg 07/16/2024 Height 5 ft 4 in in 07/16/2024 Blood pressure systolic 141 mm Hg 07/16/2024 Weight 195 lbs 07/16/2024 BMI 33.47 kg/m2 07/16/2024 Procedures Procedure Date Ordered Date Performed Result Body Sit e 87917-MNBHGIZ NAIL, 6 OR MORE 07/16/2024 N/A 39506-XFFE SKIN LESIONS, 2 TO 4 07/16/2024 N/A Encounters Encounter Location Date Provider Diagnosis [facility] [address] 11/06/2023 ProsperMason Type 2 diabetes mellitus with diabetic polyneuropathy E11.42 ; Tinea unguium B35.1 ; Pain in left foot M79.672 ; Primary osteoarthritis, left ankle and foot M19.072 ; Pain in left toe(s) M79.675 ; Pain in right toe(s) M79.674 ; Hallux rigidus, left foot M20.22 ; Hallux valgus (acquired), left foot M20.12 and Localized edema R60.0 [facility] [address] [address] 04/16/2024 Prosper Henson Type 2 diabetes mellitus with diabetic polyneuropathy E11.42 ; Tinea unguium B35.1 ; Pain in left foot M79.672 ; Primary osteoarthritis, left ankle and foot M19.072 ; Pain in left toe(s) M79.675 ; Pain in right toe(s) M79.674 ; Hallux rigidus, left foot M20.22 ; Hallux valgus (acquired), left foot M20.12 and Localized edema R60.[address] [address] 07/16/2024 Sylvia Nguyễn Type 2 diabetes mellitus with diabetic polyneuropathy E11.42 and Tinea unguium B35.[address] [address] 09/24/[address] [address] 10/08/[address] [address] 01/31/2024 [facility] Assessments Encounter Date Diagnosis (ICD Code) [...] X ray : Foot, left 3V 03/30/2020 32330-CRQXMCD NAIL, 6 OR MORE 07/16/2024 27586-CFLHHZG NAIL, 1-5 05/05/2018 66361-FEPLXXY NAIL, 1-5 07/21/2018 31080-MPVWAQS NAIL, 1-5 10/13/2018 48900, J0702- INJECT or DRAIN, JOINT/BUR SA 05/05/2018 15609-IKXU SKIN LESIONS, OVER 4 05/05/20 18 75356-FRHB SKIN LESIONS, OVER 4 07/21/20 18 14593-QYBY SKIN LESIONS, OVER 4 01/13/20 19 83722-CSJN SKIN LESIONS, OVER 4 04/13/20 19 43103-XLUK SKIN LESIONS, OVER 4 10/13/19 19 02339-CSEC SKIN LESIONS, OVER 4 12/06/19 21 93330-RYRS SKIN LESIONS, OVER 4 05/08/20 21 98805-VUFF SKIN LESIONS, OVER 4 10/18/19 22 86362-HSMM SKIN LESIONS, OVER 4 08/01/20 20 13310-DCJB SKIN LESIONS, OVER 4 03/30/20 20 01793-KODJ SKIN LESIONS, OVER 4 07/13/20 19 59872-AZJU SKIN LESIONS, OVER 4 10/12/19 20 40034-HYHV SKIN LESIONS, 2 TO 4 07/16/20 24 47410-YSBD SKIN LESIONS, 2 TO 4 02/20/20 18 52069, W7522-QRFRA/INJECT, JOINT/BURSA 0 10/13/2018 I3970-SOSREKTG DYSTROPHIC NAILS ANY # Z6255-LOKGDJST DYSTROPHIC NAILS ANY # A0682-OVAFXICF DYSTROPHIC NAILS ANY # Y8875-STMCWBUG DYSTROPHIC NAILS ANY # C0143-SCUYFUHV DYSTROPHIC NAILS ANY # L0786-YXLQTTMG DYSTROPHIC NAILS ANY # K7532-FLVQNQWR DYSTROPHIC NAILS ANY # I3474-HCFCOSJF DYSTROPHIC NAILS ANY # T8824-NGSQOCXA DYSTROPHIC NAILS ANY # 70826- Nail Unit Biopsy 02/19/2018 Next Appt Details Provider Name:Sylvia Zarate aimee, 10/15/2024 02:45:00 PM, [address] [facility], [place], [address], Insurance Providers Payer Name Payer Address Payer Phone Subscriber Number Group Number Insured Name Patient Relationship to Insured Coverage Start Date Coverage End Date Medicare National [employer] [address] [facility] [address] [id number] Kaitlin Ortiz Self - patient is the insured [address] [place] [address] [address] [place], [place] [id number] Kaitlin Ortiz Self - patient is the [...]
--- OUTSIDE RECORDS SUMMARY | 2024-08-21 19:53 | XMS_ITS | Clinical Summary ---
Author Organization Unknown Care Team Providers Care Magnetic Tester Name Role Phone MELANIA RAUSCH, ELLEN Unavailable Unavailable TOMY MC, JOSE Unavailable Unavailable Payers Payer Name Policy Type Policy Number Effective Date Expira tion Date MEDICARE - [place] - PDGM [id number] Problems Condition Name Condition Details Condition Category Status Onset Date Resolution Date Last Treatment Date Treating Clinician Comments ENCNTR FOR SURGICAL AFTCR FOLLOWING SURGERY ON THE CIRC SYS Active 02-04 00:00: 00 TYPE 2 DIABETES MELLITUS WITHOUT COMPLICATION S Active 02-04 00:00: 00 PAROXYSMAL ATRIAL FIBRILLATION Active 02-04 00:00: 00 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 PLANNING ANALYST (CURRENT) USE OF INSULIN Active 02-04 00:00: 00 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 Active 02-04 00:00: 00 MALIGNANT NEOPLASM OF UNSP SITE OF UNSPECIFIED FEMALE BREAST Active 02-04 00:00: 00 ANEMIA IN NEOPLASTIC DISEASE Active 02-04 00:00: 00 ATHSCL HEART DISEASE OF [place] CORONARY ARTERY W/O ANG PCTRS Active 02-04 [...] 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 Active 02-04 00:00: 00 SENIOR CARE (CURRENT) USE OF ASPIRIN Active 02-04 00:00: 00 MATERIAL PLANNING ANALYST (CURRENT) USE OF ORAL HYPOGLYCEMIC DRUGS Active [...] 2-17 00:00: 00 01-20 23:59 :00 No [id number] 1 tablet BEDTIME 1 tablet BEDTIME (route: oral) Med Classific ation: Cardiovas cular Therapy Agents pantoprazol e 40 mg tablet,sonia yed release 2- 00:00: 00 01-23 00:00 :00 No [id number] 1 tablet DAILY 1 tablet DAILY (route: oral) Med Classific ation: Gastroint estinal Therapy Agents nitrofurant oin monohydrate /macrocryst als 100 mg capsule 2-13 00:00: 00 11-01 23:59 :00 No [id number] 1 capsule TWICE A DAY FOR UTI FOR 10 DAYS 1 capsule TWICE A DAY FOR UTI FOR 10 DAYS (route: oral) Med Classific ation: Genitouri nary Therapy metformin 1,000 mg tablet - 00:00: 00 01-20 23:59 :00 No [id number] 1 tablet TWICE A DAY DIRECTED 1 tablet TWICE A DAY DIRECTED (route: oral) Med Classific ation: Endocrine amlodipine 10 mg tablet 11-15 00:00: 00 01-20 23:59 :00 No [id number] 1 tablet DAILY 1 tablet DAILY (route: oral) Med Classific ation: Cardiovas cular Therapy Agents ascorbic acid (vitamin C) 1,000 mg capsule 11-15 00:00: 00 01-20 23:59 :00 No [id number] 1 capsule DAILY 1 capsule DAILY (route: oral) Med Classific ation: Electroly te Balance-N utritiona l Products Aspirin Childrens 81 mg chewable tablet 11-15 00:00: 00 01-20 23:59 :00 No [id number] 1 tablet DAILY 1 tablet DAILY (route: oral) Med Classific ation: Hematolog ical Agents carvedilol 25 mg tablet - 00:00: 00 01-20 23:59 :00 No [id number] 1 tablet 2 TIMES DAILY 1 tablet 2 TIMES DAILY (route: oral) Med Classific ation: Cardiovas cular Therapy Agents citalopram 20 mg tablet - 00:00: 00 01-20 23:59 :00 No [id number] 1 tablet DAILY 1 tablet DAILY (route: oral) Med Classific ation: Central Nervous System Agents cyclobenzap rine 5 mg tablet 11-15 00:00: 00 01-20 23:59 :00 No [id number] 1 tablet BEDTIME 1 tablet BEDTIME (route: oral) Med Classific ation: Locomotor System duloxetine 60 mg capsule,del ayed release 11-15 00:00: 00 01-20 23:59 :00 No [id number] 1 capsule DAILY 1 capsule DAILY (route: oral) Med Classific ation: Central Nervous System Agents famotidine 40 mg tablet 11-15 00:00: 00 01-20 23:59 :00 No [id number] 1 tablet BEDTIME 1 tablet BEDTIME (route: oral) Med Classific ation: Gastroint estinal Therapy Agents ferrous sulfate 325 mg (65 mg iron) tablet 11-15 00:00: 00 01-20 23:59 :00 No [id number] 1 tablet DAILY 1 tablet DAILY (route: oral) Med Classific ation: Electroly te Balance-N utritiona l Products furosemide 40 mg tablet 11-15 00:00: 00 12-24 23:59 :00 No [id number] 1 tablet DAILY 1 tablet DAILY (route: oral) Med Classific ation: Cardiovas cular Therapy Agents hydralazine 25 mg tablet 11-15 00:00: 00 12-24 23:59 :00 No [id number] 1 tablet 3 TIMES DAILY 1 tablet 3 TIMES DAILY (route: oral) Med Classific ation: Cardiovas cular Therapy Agents Imbruvica 420 mg tablet 11-15 00:00: 00 01-20 23:59 :00 No [id number] 1 tablet DAILY 1 tablet DAILY (route: oral) Med Classific ation: Antineopl astics Imbruvica 420 mg tablet 11-15 00:00: 00 12-24 00:00 :00 No [id number] 1 tablet DAILY 1 tablet DAILY (route: oral) Med Classific ation: Antineopl astics Januvia 100 mg tablet 11-15 00:00: 00 12-24 23:59 :00 No [id number] 1 tablet DAILY 1 tablet DAILY (route: oral) Med Classific ation: Endocrine pregabalin 150 mg capsule 09 00:00: 00 01-20 23:59 :00 No [id number] 1 capsule 2 TIMES DAILY 1 capsule 2 TIMES DAILY (route: oral) Med Classific ation: Central Nervous System Agents Senna Lax 8.6 mg tablet 11-15 00:00: 00 01-20 23:59 :00 No [id number] 2 tablet BEDTIME 2 tablet BEDTIME (route: oral) Med Classific ation: Gastroint estinal Therapy Agents solifenacin 5 mg tablet 11-15 00:00: 00 01-23 00:00 :00 No [id number] 1 tablet DAILY 1 tablet DAILY (route: oral) Med Classific ation: Genitouri nary Therapy spironolact one 25 mg tablet 11-15 00:00: 00 01-20 23:59 :00 No [id number] 1 tablet DAILY 1 tablet DAILY (route: oral) Med Classific ation: Cardiovas cular Therapy Agents sulindac 150 mg tablet 11-15 00:00: 00 01-23 00:00 :00 No [id number] 1 tablet 2 TIMES DAILY 1 tablet 2 TIMES DAILY (route: oral) Med Classific ation: Analgesic , Anti-infl ammatory or Antipyret ic nitrofurant oin macrocrysta l 100 mg capsule 3-24 00:00: 00 12-24 23:59 :00 No [id number] 1 capsule 2 TIMES DAILY 1 capsule 2 TIMES DAILY (route: oral) Med Classific ation: Genitouri nary Therapy Macrobid 100 mg capsule 4-10 00:00: 00 12-24 23:59 :00 No [id number] 100 mg 2 TIMES DAILY 100 mg 2 TIMES DAILY (route: oral) Med Classific ation: Genitouri nary Therapy cefpodoxime 100 mg tablet 4-16 00:00: 00 12-25 23:59 :00 No [id number] 1 tablet 2 TIMES DAILY 1 tablet 2 TIMES DAILY (route: oral) Med Classific ation: Anti-Infe ctive Agents Citracal-D3 Maximum Plus 325 mg-12.5 mcg-2.75 mg tablet 12-24 00:00: 00 01-20 23:59 :00 No [id number] 1 tablet EVERY AM 1 tablet EVERY AM (route: oral) Med Classific ation: Electroly te Balance-N utritiona l Products magnesium oxide 500 mg capsule 12-24 00:00: 00 01-23 00:00 :00 No [id number] 1 capsule EVERY PM 1 capsule EVERY PM (route: oral) Med Classific ation: Electroly te Balance-N utritiona l Products Multiple Vitamins tablet 12-24 00:00: 00 01-20 23:59 :00 No [id number] 1 tablet EVERY AM 1 tablet EVERY AM (route: oral) Med Classific ation: Electroly te Balance-N utritiona l Products acetaminoph en 325 mg tablet 01-23 00:00: 00 01-20 23:59 :00 No [id number] 2 tablet EVERY 6 HOURS 2 tablet EVERY 6 HOURS (route: oral) Med Classific ation: Analgesic , Anti-infl ammatory or Antipyret ic coenzyme Q10 100 mg capsule 01-23 00:00: 00 01-20 23:59 :00 No [id number] 1 capsule BEDTIME 1 capsule BEDTIME (route: oral) Med Classific ation: Alternati ve Therapy docusate sodium 100 mg capsule 01-22 00:00: 00 01-20 23:59 :00 No [id number] 1 capsule 2 TIMES DAILY 1 capsule 2 TIMES DAILY (route: oral) Med Classific ation: Gastroint estinal Therapy Agents enoxaparin 40 mg/0.4 mL subcutaneou s syringe 01-23 00:00: 00 02-07 23:59 :00 No [id number] 0.4 mL DAILY 0.4 mL DAILY (route: subcutaneo us) Med Classific ation: Hematolog ical Agents furosemide 20 mg tablet 01-22 00:00: 00 01-20 23:59 :00 No [id number] 1 tablet DAILY 1 tablet DAILY (route: oral) Med Classific ation: Cardiovas cular Therapy Agents magnesium oxide 400 mg (241.3 mg magnesium) tablet 01-23 00:00: 00 01-20 23:59 :00 No [id number] 1 tablet BEDTIME 1 tablet BEDTIME (route: oral) Med Classific ation: Electroly te Balance-N utritiona l Products omeprazole 20 mg tablet,sonia yed release 01-22 00:00: 00 01-20 23:59 :00 No [id number] 1 tablet DAILY 1 tablet DAILY (route: oral) Med Classific ation: Gastroint estinal Therapy Agents oxycodone 5 mg tablet 01-22 00:00: 00 01-20 23:59 :00 No [id number] 1 tablet EVERY 4 HOURS 1 tablet EVERY 4 HOURS (route: oral) Med Classific ation: Analgesic , Anti-infl ammatory or Antipyret ic oxycodone ER 10 mg tablet,vanda h resistant,e xtended release 12 hr 01-23 00:00: 00 01-20 23:59 :00 No [id number] 1 tablet EVERY 12 HOURS 1 tablet EVERY 12 HOURS (route: oral) Med Classific ation: Analgesic , Anti-infl ammatory or Antipyret ic polyethylen e glycol 3350 17 gram/dose oral powder 01-22 00:00: 00 01-20 23:59 :00 No [id number] 17 gram DAILY 17 gram DAILY (route: oral) Med Classific ation: Gastroint estinal Therapy Agents fluconazole 150 mg tablet 01-28 00:00: 00 01-20 23:59 :00 No [id number] 1 tablet DIRECTED 1 tablet DIRECTED (route: oral) Med Classific ation: Anti-Infe ctive Agents fluconazole 150 mg tablet 01-16 00:00: 00 02-04 23:59 :00 No [id number] Per instruc tions EVERY 3 DAYS FOR YEAST INFECTION FOR 6 DAYS Per instructio ns EVERY 3 DAYS FOR YEAST INFECTION FOR 6 DAYS (route: oral) Med Classific ation: Anti-Infe ctive Agents duloxetine 60 mg capsule,del ayed release 01-08 00:00: 00 Yes [id number] Per instruc tions EVERY DAY Per instructio ns EVERY DAY (route: oral) Med Classific ation: Central Nervous System Agents pantoprazol e 40 mg tablet,sonia yed release 01-07 00:00: 00 Yes [id number] Per instruc tions TWICE A DAY Per instructio ns TWICE A DAY (route: oral) Med Classific ation: Gastroint estinal Therapy Agents amlodipine 10 mg tablet 01-05 00:00: 00 02-04 23:59 :00 No [id number] Per instruc tions EVERY DAY Per instructio ns EVERY DAY (route: oral) Med Classific ation: Cardiovas cular Therapy Agents metformin 1,000 mg tablet 01-04 00:00: 00 02-04 23:59 :00 No [id number] Per instruc tions TWICE A DAY DIRECTED Per instructio ns TWICE A DAY DIRECTED (route: oral) Med Classific ation: Endocrine pregabalin 150 mg capsule 12-23 00:00: 00 Yes [id number] Per instruc tions 2 (TWO) TIMES A DAY Per instructio ns 2 (TWO) TIMES A DAY (route: oral) Med Classific ation: Central Nervous System Agents acetaminoph en 325 mg tablet 02-04 00:00: 00 Yes [id number] 1 tablet EVERY 6 HOURS 1 tablet EVERY 6 HOURS (route: oral) Med Classific ation: Analgesic , Anti-infl ammatory or Antipyret ic amiodarone 200 mg tablet 02-04 00:00: 00 02-12 23:59 :00 No [id number] 1 tablet 2 TIMES DAILY 1 tablet 2 TIMES DAILY (route: oral) Med Classific ation: Cardiovas cular Therapy Agents amlodipine 5 mg tablet 02-04 00:00: 00 Yes [id number] 1 tablet DAILY 1 tablet DAILY (route: oral) Med Classific ation: Cardiovas cular Therapy Agents ascorbic acid (vitamin C) 500 mg tablet 02-04 00:00: 00 Yes [id number] 1 tablet 2 TIMES DAILY 1 tablet 2 TIMES DAILY (route: oral) Med Classific ation: Electroly te Balance-N utritiona l Products aspirin 81 mg tablet,sonia yed release 02-04 00:00: 00 Yes [id number] 1 tablet DAILY 1 tablet DAILY (route: oral) Med Classific ation: Hematolog ical Agents atorvastati n 80 mg tablet 02-04 00:00: 00 Yes [id number] 1 tablet DIRECTED 1 tablet DIRECTED (route: oral) Med Classific ation: Cardiovas cular Therapy Agents cholecalcif tiera (vitamin D3) 10 mcg (400 unit) capsule 02-04 00:00: 00 Yes [id number] 1 capsule DAILY 1 capsule DAILY (route: oral) Med Classific ation: Electroly te Balance-N utritiona l Products citalopram 20 mg tablet 02-04 00:00: 00 Yes [id number] 1 tablet DAILY 1 tablet DAILY (route: oral) Med Classific ation: Central Nervous System Agents furosemide 40 mg tablet 02-04 00:00: 00 02-12 23:59 :00 No [id number] 1 tablet 2 TIMES DAILY 1 tablet 2 TIMES DAILY (route: oral) Med Classific ation: Cardiovas cular Therapy Agents Humalog KwikPen (U-100) Insulin 100 unit/mL subcutaneou s 02-04 00:00: 00 Yes [id number] Per instruc tions DIRECTED Per instructio ns DIRECTED (route: subcutaneo us) Med Classific ation: Endocrine Imbruvica 140 mg tablet 02-04 00:00: 00 Yes [id number] 1 tablet DAILY 1 tablet DAILY (route: oral) Med Classific ation: Antineopl astics insulin glargine (U-100) 100 unit/mL (3 mL) subcutaneou s pen 02-04 00:00: 00 Yes [id number] 19 unit DIRECTED 19 unit DIRECTED (route: subcutaneo us) Med Classific ation: Endocrine insulin lispro (U-100) 100 unit/mL subcutaneou s pen 02-04 00:00: 00 Yes [id number] 8 unit DIRECTED 8 unit DIRECTED (route: subcutaneo us) Med Classific ation: Endocrine metformin 500 mg tablet 02-04 00:00: 00 Yes [id number] 1 tablet 2 TIMES DAILY 1 tablet 2 TIMES DAILY (route: oral) Med Classific ation: Endocrine metoprolol succinate ER 25 mg tablet,exte nded release 24 hr 02-04 00:00: 00 Yes [id number] Per instruc tions DAILY Per instructio ns DAILY (route: oral) Med Classific ation: Cardiovas cular Therapy Agents Aldactone 25 mg tablet 02-16 00:00: 00 Yes [id number] 25 mg DAILY 25 mg DAILY (route: [...] DRY CLEAN GAUZE, LEAVE OPEN TO AIR. PATIENT/SCREEN ROLLER WILL PERFORM THIS TWICE DAILY BETWEEN NURSING [...] DRY CLEAN GAUZE, LEAVE OPEN TO AIR. PATIENT/SCREEN ROLLER WILL PERFORM THIS TWICE DAILY BETWEEN NURSING [...] BLOCKAGE/LEAKAGE, HEAVY SEDIMENT. 1 - 3 PRN PENITENTIARY VISITS FOR CATHETER CHANGE(S) AND/OR TROUBLESHOOTING. [code = SKILLED NURSE TO INSTRUCT PATIENT/CAREGIVER ON CARE AND MANAGEMENT OF SUPRAPUBIC CATHETER. SKILLED NURSE FOR SUPRAPUBIC CATHETER INSERTION/MAINTENANCE UTILIZING 18 FR 10 ML BALLOON, CHANGE Q 4 WEEKS AND PRN FOR LEAKING OR MALFUNCTIONING. IRRIGATE SUPRAPUBIC CATHETER WITH 30-60CC NORMAL SALINE PRN BLOCKAGE/LEAKAGE, HEAVY SEDIMENT. 1 - 3 PRN PENITENTIARY VISITS FOR CATHETER CHANGE(S) AND/OR TROUBLESHOOTING.] Goal 2024-03-04 Patient Goal - TO FEEL BOBBY R Goal Provider Goal - A PLAN OF CARE WILL BE ESTABLISHED THAT MEETS PATIENT'S PENITENTIARY NEEDS AND INCLUDES PATIENT GOAL FOR HOME [...] End Date/Time Encounter Type Admission Type Attending [facility] Care Department Encounter ID Discharge Date Discharge Status Discharge Condition Discharge Reason Percent Goals Met 2024-02-05 00:00:00 2024-03-04 00:00:00 Outpatient JOSE ROSA [facility] [id number] 2024-03-04 00:00:00 DISCHARGE TO HOME OR SELF CARE INDEPENDEN T IN THE COMMUNITY NO LONGER HOMEBOUND ( ONLY) 47.62
--- OUTSIDE RECORDS SUMMARY | 2024-08-21 19:53 | XMS_ITS | Clinical Summary ---
Author Organization Unknown Care Team Providers Care Stress Engineer Name Role Phone MELANIA RAUSCH, ELLEN Unavailable Unavailable TOMY MC, JOSE Unavailable Unavailable Payers Payer Name Policy Type Policy Number Effective Date Expira tion Date MEDICARE - NGS MA/RI - PDGM [id number] Problems Condition Name Condition Details Condition Category Status Onset Date Resolution Date Last Treatment Date Treating Clinician Comments ENCNTR FOR SURGICAL AFTCR FOLLOWING SURGERY ON THE CIRC SYS Active 02-04 00:00: 00 TYPE 2 DIABETES MELLITUS WITHOUT COMPLICATION S Active 02-04 00:00: 00 PAROXYSMAL ATRIAL FIBRILLATION Active 02-04 00:00: 00 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 02-04 00:00: 00 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 Active 02-04 00:00: 00 MALIGNANT NEOPLASM OF UNSP SITE OF UNSPECIFIED FEMALE BREAST Active 02-04 00:00: 00 ANEMIA IN NEOPLASTIC DISEASE Active 02-04 00:00: 00 ATHSCL HEART DISEASE OF [place] CORONARY ARTERY W/O ANG PCTRS Active 02-04 [...] 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 Active 02-04 00:00: 00 USP (CURRENT) USE OF ASPIRIN Active 02-04 00:00: 00 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 Active [...] 2-17 00:00: 00 01-20 23:59 :00 No [id number] 1 tablet BEDTIME 1 tablet BEDTIME (route: oral) Med Classific ation: Cardiovas cular Therapy Agents pantoprazol e 40 mg tablet,sonia yed release 2- 00:00: 00 01-23 00:00 :00 No [id number] 1 tablet DAILY 1 tablet DAILY (route: oral) Med Classific ation: Gastroint estinal Therapy Agents nitrofurant oin monohydrate /macrocryst als 100 mg capsule 2-13 00:00: 00 11-01 23:59 :00 No [id number] 1 capsule TWICE A DAY FOR UTI FOR 10 DAYS 1 capsule TWICE A DAY FOR UTI FOR 10 DAYS (route: oral) Med Classific ation: Genitouri nary Therapy metformin 1,000 mg tablet - 00:00: 00 01-20 23:59 :00 No [id number] 1 tablet TWICE A DAY DIRECTED 1 tablet TWICE A DAY DIRECTED (route: oral) Med Classific ation: Endocrine amlodipine 10 mg tablet 11-15 00:00: 00 01-20 23:59 :00 No [id number] 1 tablet DAILY 1 tablet DAILY (route: oral) Med Classific ation: Cardiovas cular Therapy Agents ascorbic acid (vitamin C) 1,000 mg capsule 11-15 00:00: 00 01-20 23:59 :00 No [id number] 1 capsule DAILY 1 capsule DAILY (route: oral) Med Classific ation: Electroly te Balance-N utritiona l Products Aspirin Childrens 81 mg chewable tablet 11-15 00:00: 00 01-20 23:59 :00 No [id number] 1 tablet DAILY 1 tablet DAILY (route: oral) Med Classific ation: Hematolog ical Agents carvedilol 25 mg tablet - 00:00: 00 01-20 23:59 :00 No [id number] 1 tablet 2 TIMES DAILY 1 tablet 2 TIMES DAILY (route: oral) Med Classific ation: Cardiovas cular Therapy Agents citalopram 20 mg tablet - 00:00: 00 01-20 23:59 :00 No [id number] 1 tablet DAILY 1 tablet DAILY (route: oral) Med Classific ation: Central Nervous System Agents cyclobenzap rine 5 mg tablet 11-15 00:00: 00 01-20 23:59 :00 No [id number] 1 tablet BEDTIME 1 tablet BEDTIME (route: oral) Med Classific ation: Locomotor System duloxetine 60 mg capsule,del ayed release 11-15 00:00: 00 01-20 23:59 :00 No [id number] 1 capsule DAILY 1 capsule DAILY (route: oral) Med Classific ation: Central Nervous System Agents famotidine 40 mg tablet 11-15 00:00: 00 01-20 23:59 :00 No [id number] 1 tablet BEDTIME 1 tablet BEDTIME (route: oral) Med Classific ation: Gastroint estinal Therapy Agents ferrous sulfate 325 mg (65 mg iron) tablet 11-15 00:00: 00 01-20 23:59 :00 No [id number] 1 tablet DAILY 1 tablet DAILY (route: oral) Med Classific ation: Electroly te Balance-N utritiona l Products furosemide 40 mg tablet 11-15 00:00: 00 12-24 23:59 :00 No [id number] 1 tablet DAILY 1 tablet DAILY (route: oral) Med Classific ation: Cardiovas cular Therapy Agents hydralazine 25 mg tablet 11-15 00:00: 00 12-24 23:59 :00 No [id number] 1 tablet 3 TIMES DAILY 1 tablet 3 TIMES DAILY (route: oral) Med Classific ation: Cardiovas cular Therapy Agents Imbruvica 420 mg tablet 11-15 00:00: 00 01-20 23:59 :00 No [id number] 1 tablet DAILY 1 tablet DAILY (route: oral) Med Classific ation: Antineopl astics Imbruvica 420 mg tablet 11-15 00:00: 00 12-24 00:00 :00 No [id number] 1 tablet DAILY 1 tablet DAILY (route: oral) Med Classific ation: Antineopl astics Januvia 100 mg tablet 11-15 00:00: 00 12-24 23:59 :00 No [id number] 1 tablet DAILY 1 tablet DAILY (route: oral) Med Classific ation: Endocrine pregabalin 150 mg capsule 09 00:00: 00 01-20 23:59 :00 No [id number] 1 capsule 2 TIMES DAILY 1 capsule 2 TIMES DAILY (route: oral) Med Classific ation: Central Nervous System Agents Senna Lax 8.6 mg tablet 11-15 00:00: 00 01-20 23:59 :00 No [id number] 2 tablet BEDTIME 2 tablet BEDTIME (route: oral) Med Classific ation: Gastroint estinal Therapy Agents solifenacin 5 mg tablet 11-15 00:00: 00 01-23 00:00 :00 No [id number] 1 tablet DAILY 1 tablet DAILY (route: oral) Med Classific ation: Genitouri nary Therapy spironolact one 25 mg tablet 11-15 00:00: 00 01-20 23:59 :00 No [id number] 1 tablet DAILY 1 tablet DAILY (route: oral) Med Classific ation: Cardiovas cular Therapy Agents sulindac 150 mg tablet 11-15 00:00: 00 01-23 00:00 :00 No [id number] 1 tablet 2 TIMES DAILY 1 tablet 2 TIMES DAILY (route: oral) Med Classific ation: Analgesic , Anti-infl ammatory or Antipyret ic nitrofurant oin macrocrysta l 100 mg capsule 3-24 00:00: 00 12-24 23:59 :00 No [id number] 1 capsule 2 TIMES DAILY 1 capsule 2 TIMES DAILY (route: oral) Med Classific ation: Genitouri nary Therapy Macrobid 100 mg capsule 4-10 00:00: 00 12-24 23:59 :00 No [id number] 100 mg 2 TIMES DAILY 100 mg 2 TIMES DAILY (route: oral) Med Classific ation: Genitouri nary Therapy cefpodoxime 100 mg tablet 4-16 00:00: 00 12-25 23:59 :00 No [id number] 1 tablet 2 TIMES DAILY 1 tablet 2 TIMES DAILY (route: oral) Med Classific ation: Anti-Infe ctive Agents Citracal-D3 Maximum Plus 325 mg-12.5 mcg-2.75 mg tablet 12-24 00:00: 00 01-20 23:59 :00 No [id number] 1 tablet EVERY AM 1 tablet EVERY AM (route: oral) Med Classific ation: Electroly te Balance-N utritiona l Products magnesium oxide 500 mg capsule 12-24 00:00: 00 01-23 00:00 :00 No [id number] 1 capsule EVERY PM 1 capsule EVERY PM (route: oral) Med Classific ation: Electroly te Balance-N utritiona l Products Multiple Vitamins tablet 12-24 00:00: 00 01-20 23:59 :00 No [id number] 1 tablet EVERY AM 1 tablet EVERY AM (route: oral) Med Classific ation: Electroly te Balance-N utritiona l Products acetaminoph en 325 mg tablet 01-23 00:00: 00 01-20 23:59 :00 No [id number] 2 tablet EVERY 6 HOURS 2 tablet EVERY 6 HOURS (route: oral) Med Classific ation: Analgesic , Anti-infl ammatory or Antipyret ic coenzyme Q10 100 mg capsule 01-23 00:00: 00 01-20 23:59 :00 No [id number] 1 capsule BEDTIME 1 capsule BEDTIME (route: oral) Med Classific ation: Alternati ve Therapy docusate sodium 100 mg capsule 01-22 00:00: 00 01-20 23:59 :00 No [id number] 1 capsule 2 TIMES DAILY 1 capsule 2 TIMES DAILY (route: oral) Med Classific ation: Gastroint estinal Therapy Agents enoxaparin 40 mg/0.4 mL subcutaneou s syringe 01-23 00:00: 00 02-07 23:59 :00 No [id number] 0.4 mL DAILY 0.4 mL DAILY (route: subcutaneo us) Med Classific ation: Hematolog ical Agents furosemide 20 mg tablet 01-22 00:00: 00 01-20 23:59 :00 No [id number] 1 tablet DAILY 1 tablet DAILY (route: oral) Med Classific ation: Cardiovas cular Therapy Agents magnesium oxide 400 mg (241.3 mg magnesium) tablet 01-23 00:00: 00 01-20 23:59 :00 No [id number] 1 tablet BEDTIME 1 tablet BEDTIME (route: oral) Med Classific ation: Electroly te Balance-N utritiona l Products omeprazole 20 mg tablet,[place]ia yed release 01-22 00:00: 00 01-20 23:59 :00 No [id number] 1 tablet DAILY 1 tablet DAILY (route: oral) Med Classific ation: Gastroint estinal Therapy Agents oxycodone 5 mg tablet 01-22 00:00: 00 01-20 23:59 :00 No [id number] 1 tablet EVERY 4 HOURS 1 tablet EVERY 4 HOURS (route: oral) Med Classific ation: Analgesic , Anti-infl ammatory or Antipyret ic oxycodone ER 10 mg tablet,vanda h resistant,e xtended release 12 hr 01-23 00:00: 00 01-20 23:59 :00 No [id number] 1 tablet EVERY 12 HOURS 1 tablet EVERY 12 HOURS (route: oral) Med Classific ation: Analgesic , Anti-infl ammatory or Antipyret ic polyethylen e glycol 3350 17 gram/dose oral powder 01-22 00:00: 00 01-20 23:59 :00 No [id number] 17 gram DAILY 17 gram DAILY (route: oral) Med Classific ation: Gastroint estinal Therapy Agents fluconazole 150 mg tablet 01-28 00:00: 00 01-20 23:59 :00 No [id number] 1 tablet DIRECTED 1 tablet DIRECTED (route: oral) Med Classific ation: Anti-Infe ctive Agents fluconazole 150 mg tablet 01-16 00:00: 00 02-04 23:59 :00 No [id number] Per instruc tions EVERY 3 DAYS FOR YEAST INFECTION FOR 6 DAYS Per instructio ns EVERY 3 DAYS FOR YEAST INFECTION FOR 6 DAYS (route: oral) Med Classific ation: Anti-Infe ctive Agents duloxetine 60 mg capsule,del ayed release 01-08 00:00: 00 Yes [id number] Per instruc tions EVERY DAY Per instructio ns EVERY DAY (route: oral) Med Classific ation: Central Nervous System Agents pantoprazol e 40 mg tablet,[place]ia yed release 01-07 00:00: 00 Yes [id number] Per instruc tions TWICE A DAY Per instructio ns TWICE A DAY (route: oral) Med Classific ation: Gastroint estinal Therapy Agents amlodipine 10 mg tablet 01-05 00:00: 00 02-04 23:59 :00 No [id number] Per instruc tions EVERY DAY Per instructio ns EVERY DAY (route: oral) Med Classific ation: Cardiovas cular Therapy Agents metformin 1,000 mg tablet 01-04 00:00: 00 02-04 23:59 :00 No [id number] Per instruc tions TWICE A DAY DIRECTED Per instructio ns TWICE A DAY DIRECTED (route: oral) Med Classific ation: Endocrine pregabalin 150 mg capsule 12-23 00:00: 00 Yes [id number] Per instruc tions 2 (TWO) TIMES A DAY Per instructio ns 2 (TWO) TIMES A DAY (route: oral) Med Classific ation: Central Nervous System Agents acetaminoph en 325 mg tablet 02-04 00:00: 00 Yes [id number] 1 tablet EVERY 6 HOURS 1 tablet EVERY 6 HOURS (route: oral) Med Classific ation: Analgesic , Anti-infl ammatory or Antipyret ic amiodarone 200 mg tablet 02-04 00:00: 00 02-12 23:59 :00 No [id number] 1 tablet 2 TIMES DAILY 1 tablet 2 TIMES DAILY (route: oral) Med Classific ation: Cardiovas cular Therapy Agents amlodipine 5 mg tablet 02-04 00:00: 00 Yes [id number] 1 tablet DAILY 1 tablet DAILY (route: oral) Med Classific ation: Cardiovas cular Therapy Agents ascorbic acid (vitamin C) 500 mg tablet 02-04 00:00: 00 Yes [id number] 1 tablet 2 TIMES DAILY 1 tablet 2 TIMES DAILY (route: oral) Med Classific ation: Electroly te Balance-N utritiona l Products aspirin 81 mg tablet,sonia yed release 02-04 00:00: 00 Yes [id number] 1 tablet DAILY 1 tablet DAILY (route: oral) Med Classific ation: Hematolog ical Agents atorvastati n 80 mg tablet 02-04 00:00: 00 Yes [id number] 1 tablet DIRECTED 1 tablet DIRECTED (route: oral) Med Classific ation: Cardiovas cular Therapy Agents cholecalcif tiera (vitamin D3) 10 mcg (400 unit) capsule 02-04 00:00: 00 Yes [id number] 1 capsule DAILY 1 capsule DAILY (route: oral) Med Classific ation: Electroly te Balance-N utritiona l Products citalopram 20 mg tablet 02-04 00:00: 00 Yes [id number] 1 tablet DAILY 1 tablet DAILY (route: oral) Med Classific ation: Central Nervous System Agents furosemide 40 mg tablet 02-04 00:00: 00 02-12 23:59 :00 No [id number] 1 tablet 2 TIMES DAILY 1 tablet 2 TIMES DAILY (route: oral) Med Classific ation: Cardiovas cular Therapy Agents Humalog KwikPen (U-100) Insulin 100 unit/mL subcutaneou s 02-04 00:00: 00 Yes [id number] Per instruc tions DIRECTED Per instructio ns DIRECTED (route: subcutaneo us) Med Classific ation: Endocrine Imbruvica 140 mg tablet 02-04 00:00: 00 Yes [id number] 1 tablet DAILY 1 tablet DAILY (route: oral) Med Classific ation: Antineopl astics insulin glargine (U-100) 100 unit/mL (3 mL) subcutaneou s pen 02-04 00:00: 00 Yes [id number] 19 unit DIRECTED 19 unit DIRECTED (route: subcutaneo us) Med Classific ation: Endocrine insulin lispro (U-100) 100 unit/mL subcutaneou s pen 02-04 00:00: 00 Yes [id number] 8 unit DIRECTED 8 unit DIRECTED (route: subcutaneo us) Med Classific ation: Endocrine metformin 500 mg tablet 02-04 00:00: 00 Yes [id number] 1 tablet 2 TIMES DAILY 1 tablet 2 TIMES DAILY (route: oral) Med Classific ation: Endocrine metoprolol succinate ER 25 mg tablet,exte nded release 24 hr 02-04 00:00: 00 Yes [id number] Per instruc tions DAILY Per instructio ns DAILY (route: oral) Med Classific ation: Cardiovas cular Therapy Agents Aldactone 25 mg tablet 02-16 00:00: 00 Yes [id number] 25 mg DAILY 25 mg DAILY (route: [...] DRY CLEAN GAUZE, LEAVE OPEN TO AIR. PATIENT/CANDY FEEDER WILL PERFORM THIS TWICE DAILY BETWEEN NURSING [...] DRY CLEAN GAUZE, LEAVE OPEN TO AIR. PATIENT/CANDY FEEDER WILL PERFORM THIS TWICE DAILY BETWEEN NURSING [...] BLOCKAGE/LEAKAGE, HEAVY SEDIMENT. 1 - 3 PRN [facility] VISITS FOR CATHETER CHANGE(S) AND/OR TROUBLESHOOTING. [code = SKILLED NURSE TO INSTRUCT PATIENT/CAREGIVER ON CARE AND MANAGEMENT OF SUPRAPUBIC CATHETER. SKILLED NURSE FOR SUPRAPUBIC CATHETER INSERTION/MAINTENANCE UTILIZING 18 FR 10 ML BALLOON, CHANGE Q 4 WEEKS AND PRN FOR LEAKING OR MALFUNCTIONING. IRRIGATE SUPRAPUBIC CATHETER WITH 30-60CC NORMAL SALINE PRN BLOCKAGE/LEAKAGE, HEAVY SEDIMENT. 1 - 3 PRN [facility] VISITS FOR CATHETER CHANGE(S) AND/OR TROUBLESHOOTING.] Goal 2024-03-04 Patient Goal - TO FEEL BOBBY R Goal Provider Goal - A PLAN OF CARE WILL BE ESTABLISHED THAT MEETS PATIENT'S [facility] NEEDS AND INCLUDES PATIENT GOAL FOR HOME [...] End Date/Time Encounter Type Admission Type Attending [facility] Care Department Encounter ID Discharge Date Discharge Status Discharge Condition Discharge Reason Percent Goals Met 2024-02-05 00:00:00 2024-03-04 00:00:00 Outpatient JOSE ROSA [facility] [id number] 2024-03-04 00:00:00 DISCHARGE TO HOME OR SELF CARE INDEPENDEN T IN THE COMM[facility] NO LONGER HOMEBOUND ( ONLY) 47.62
[2024-08-21 20:30] VITALS: BP 174/52; PULSE 66; RESP 18; TEMP 36.4; O2SAT 97; BMI 33.5
--- NOTE | 2024-08-21 20:39 | ED.GENADULT ---
HPI - General Adult General Chief complaint: General Medical Stated complaint: ?blood draw/labs Time Seen by Provider: 08/21/24 20:39 Source: patient, RN notes reviewed and old records reviewed Mode of arrival: ambulatory Limitations: no limitations History of Present Illness ED Provider: Jose HPI narrative: 79-year-old female presents for evaluation of ?blood draw for my antibiotic. ? Patient was started on gentamicin earlier this morning. She had labs drawn She was told to return to the ER at 8:00 p.m. for ?blood draw. ? I spoke to the pharmacist, Magdi who reports he is aware of the patient's case and she only needs a gentamicin trough at approximately 8:00 p.m. tonight She needs no other labs drawn. The patient has no other complaints Related Data Home Medications ?Medication ?Instructions ?Recorded ?Confirmed citalopram 20 mg tablet 20 mg PO DAILY 07/21/20 06/30/24 duloxetine 60 mg capsule,delayed 60 mg PO DAILY 07/21/20 06/30/24 release spironolactone 25 mg tablet 25 mg PO DAILY 07/21/20 06/30/24 amlodipine 10 mg tablet 10 mg PO DAILY 03/23/21 06/30/24 metformin 1,000 mg tablet 1,000 mg PO BID 04/19/21 06/30/24 carvedilol 25 mg tablet 25 mg PO BID 05/31/21 06/30/24 blood sugar diagnostic (Accu-Chek #10 ea 09/04/22 06/30/24 Guide test strips) ibrutinib 420 mg tablet (Imbruvica) 420 mg PO DAILY 10/30/22 06/30/24 coenzyme Q10 100 mg capsule 100 mg PO BEDTIME 01/03/23 06/30/24 (CoQ-10) magnesium 250 mg tablet 250 mg PO BEDTIME 01/03/23 06/30/24 multivitamin 1 tab PO DAILY 01/03/23 06/30/24 pregabalin 150 mg capsule 150 mg PO BID 01/03/23 06/30/24 furosemide 20 mg tablet 20 mg PO DAILY 10/31/23 06/30/24 Previous Rx's ?Medication ?Instructions ?Recorded aspirin 81 mg tablet,delayed 81 mg PO DAILY #90 tabs 07/10/21 release (Enteric Coated Aspirin) acetaminophen 325 mg tablet 650 mg (2 x 325 mg) PO Q6H PRN 01/11/23 Pain, Mild (Pain Scale 1-3) 30 days #240 tabs celecoxib 200 mg capsule 200 mg PO BID 30 days #60 caps 01/11/23 ondansetron 4 mg disintegrating 4 mg PO Q6H PRN Nausea #60 tabs 03/04/23 tablet mastectomy bra (bra, mastectomy) #6 ea 06/06/23 atorvastatin 80 mg tablet 80 mg PO QPM #90 tabs 09/17/23 ascorbic acid (vitamin C) 1,000 mg 1,000 mg PO DAILY 90 days #90 tabs 11/14/23 tablet ferrous sulfate 325 mg (65 mg 325 mg PO DAILY #120 tabs 12/16/23 iron) tablet (iron) mastectomy bra (bra, mastectomy) #7 ea 03/30/24 sulfamethoxazole 400 18.6875 ml IV BID 14 days 04/28/24 mg-trimethoprim 80 mg/5 mL intravenous solution famotidine 40 mg tablet 40 mg PO BEDTIME #90 tabs 06/10/24 oxybutynin chloride 5 mg tablet 5 mg PO BID PRN Bladder Spasms #60 06/30/24 tabs ibrutinib 420 mg tablet (Imbruvica) 420 mg PO DAILY #90 tabs 07/27/24 esomeprazole magnesium 40 mg 40 mg PO BID #60 caps 07/31/24 capsule,delayed release (Nexium) fluconazole 150 mg tablet 150 mg PO Q3D 2 doses #2 tabs 08/05/24 Allergies Allergy/AdvReac Type Severity Reaction Status Date / Time amoxicillin [AMOXICILLIN] Allergy Severe stroke, Verified 08/21/24 20:34 blood clots ciprofloxacin [From CIPRO] Allergy Severe ANAPHYLAXIS Verified 08/21/24 20:34 Iodinated Contrast Media Allergy Severe HIVES Verified 08/21/24 20:34 [IV DYE, IODINE CONTAINING CONTRAST ] levofloxacin Allergy Severe Anaphylaxis Verified 08/21/24 20:34 liraglutide Allergy Severe Headache Verified 08/21/24 20:34 Penicillins Allergy Severe stroke, Verified 08/21/24 20:34 blood clots phenazopyridine [Pyridium] Allergy Severe Anaphylaxis Verified 08/21/24 20:34 FREYA Inhibitors Allergy Intermediate Cough Verified 08/21/24 20:34 ARB-Angiotensin Receptor Allergy Intermediate Cough Verified 08/21/24 20:34 Antagonist cefpodoxime Allergy Intermediate Dizziness, Verified 08/21/24 20:34 nausea doxazosin Allergy Intermediate Shortness Verified 08/21/24 20:34 of Breath fluticasone [Advair Diskus] Allergy Intermediate Anxiety Verified 08/21/24 20:34 gabapentin [From Neurontin] Allergy Intermediate Headache Verified 08/21/24 20:34 hydralazine Allergy Intermediate Shortness Verified 08/21/24 20:34 of Breath latex Allergy Intermediate Hives Verified 08/21/24 20:34 linezolid Allergy Intermediate Nausea and Verified 08/21/24 20:34 Vomiting meloxicam Allergy Intermediate Unknown Verified 08/21/24 20:34 salmeterol [Advair Diskus] Allergy Intermediate Anxiety Verified 08/21/24 20:34 Tetanus Vaccines and Toxoid Allergy Intermediate Swelling Verified 08/21/24 20:34 torsemide Allergy Intermediate Shortness Verified 08/21/24 20:34 of Breath cephalexin [Keflex] Allergy Mild Nausea Verified 08/21/24 20:34 Review of Systems Constitutional: Constitutional: Denies chills and Denies fever(s) Eyes: Eyes: Denies blurry vision ENT: Denies vertigo and Denies dizziness Cardiovascular: Cardiovascular: Denies chest pain and Denies dyspnea Respiratory: Respiratory: Denies cough and Denies dyspnea Gastrointestinal: Gastrointestinal: Denies abdominal pain Neurologic: Denies vertigo and Denies dizziness [facility] Past Medical History Medical History (Updated 08/21/24 @ 20:41 by Murali Garcia) Osteoarthritis Morbid obesity Allergy to multiple antibiotics Depression Arthritis of left hip Wears dentures Neurogenic urinary bladder disorder History of blood transfusion History of CVA (cerebrovascular accident) Seasonal allergies History of numbness PONV (postoperative nausea and vomiting) Self-catheterizes urinary bladder Diabetes with neurologic complications Type 2 diabetes mellitus with unspecified complications Anemia CLL (chronic lymphocytic leukemia) Sleep apnea Diabetes mellitus CLL (chronic lymphocytic leukemia) Arthritis Fibromyalgia Hypercholesterolemia Hypertension History of bilateral breast cancer Urinary retention with incomplete bladder emptying Surgical History (Updated 07/31/24 @ 14:27 by Galdino Siddiqui [facility]) History of open heart surgery (~01/31/24) History of total left hip replacement S/P Botox injection History of suprapubic catheter S/P left breast biopsy History of esophagogastroduodenoscopy (EGD) Hx of colonoscopy History of bladder repair surgery History of total hysterectomy S/P breast biopsy, right History of back surgery History of biopsy of bladder Family History Family History Mother Breast cancer Father Heart disease Father Lung cancer Mother Colon cancer Brother Pancreatic cancer Social History Social History Household Members: Spouse Housing: House Are you a primary primary care coordinator to a significant other at home: No Do you presently have visiting nurse or other home services: Yes Alcohol intake: never Comment: patient refused telesiter,removed per pt request Patient Tobacco Use Status: Never used Tobacco Advance Directives: Yes Advance Directives on File: Yes Advance Directives Date on File: 07/30/23 service: No Current occupational status: retired Physical Exam ED Vital Signs: Vital Signs - 24 hr 08/21/24 20:30 08/21/24 20:54 Temperature 97.6 F 97.6 F Pulse Rate 66 66 Respiratory Rate 18 18 Blood Pressure 174/52 H 174/52 H Pulse Oximetry 97 97 Oxygen Delivery Method Room Air Room Air BMI result Body Mass Index 33.5 Const General: healthy appearing, comfortable, no acute distress, alert and awake Nutritional Appearance: well nourished Orientation/consciousness: patient oriented x3 HENMT Head: Yes normocephalic and Yes atraumatic Eyes Eyelids: Yes eyelids normal Conjunctivae: conjunctivae normal Sclerae: sclerae normal Corneas: corneas normal Pupils: Equal, round and reactive pupils present EOM: EOMs intact bilaterally Neck Neck: Yes full ROM Resp Effort & Inspection: normal respiratory effort, able to speak in complete sentences and not labored Skin General skin exam: elasticity normal Neuro General: patient oriented x3 Cranial nerves: Yes CN's II-XII intact bilaterally, Yes Equal, round and reactive pupils present and Yes Bilaterally intact EOM present Cognition (Neuro): normal cognition Extrem Other: Moving all extremities well without any obvious deformities Course Course Course Narrative: Overnight, I received a critical lab value from the lab in regard to the patient who was seen here earlier for a gentamicin trough, the critical value was 9.6. It appears that pharmacy is aware of the situation per the provider's documentation, that they will be following up on the level and adjusting accordingly, she is not due for any additional medication until Saturday. Therefore, I am not calling the patient in the middle of the night. Medical Decision Making Medical Decision Making [facility] Narrative: 71 is male with past medical history significant for recurrent UTIs follow up with Dr. Hayes, paroxysmal atrial fibrillation, CLL presents for evaluation of a blood draw. I did discuss with the pharmacist is aware of the patient and recommends only a gentamicin trough, no other labs are needed. The lab will be drawn and the patient will be discharged to follow-up Differential Diagnosis Differential Diagnoses: The differential diagnosis associated with the presentation includes Gentamicin trough UTI Labs drawn Well visit Labs Chronic kidney disease Discharge Plan Discharge Clinical Impression: Complicated urinary tract infection Patient Disposition: Home, Self-Care Instructions: Urinary Tract Infection in Women (ED) Additional Instructions: You had a gentamicin trough drawn today This was drawn after discussion with the pharmacist They will adjust your future gentamicin doses based on the level today Your next dose is plan for Saturday Follow-up with your primary doctor, return for new or worsening symptoms Prescriptions: No Action atorvastatin 80 mg tablet 80 mg PO QPM Qty: 90 3RF ascorbic acid (vitamin C) 1,000 mg tablet 1,000 mg PO DAILY 90 Days Qty: 90 4RF sulfamethoxazole-trimethoprim 400-80 mg/5 mL solution 18.6875 ml IV BID 14 Days famotidine 40 mg tablet 40 mg PO BEDTIME Qty: 90 1RF fluconazole 150 mg tablet 150 mg PO Q3D Qty: 2 0RF ondansetron 4 mg Tablet,Disintegrating 4 mg PO Q6H PRN (Reason: Nausea) Qty: 60 6RF (DME) bra, mastectomy Crystals Qty: 6 3RF Rx Instructions: As Directed ferrous sulfate [iron] 325 mg (65 mg iron) Tablet 325 mg PO DAILY Qty: 120 9RF (DME) bra, mastectomy Crystals Qty: 7 0RF Rx Instructions: As Directed oxybutynin chloride 5 mg tablet 5 mg PO BID PRN (Reason: Bladder Spasms) Qty: 60 4RF Imbruvica 420 mg Tablet 420 mg PO DAILY Qty: 90 4RF Imbruvica 420 mg Tablet 420 mg PO DAILY pregabalin 150 mg capsule 150 mg PO BID multivitamin Tablet 1 tab PO DAILY magnesium 250 mg Tablet 250 mg PO BEDTIME coenzyme Q10 [CoQ-10] 100 mg Capsule 100 mg PO BEDTIME celecoxib 200 mg Capsule 200 mg PO BID 30 Days Qty: 60 0RF acetaminophen 325 mg Tablet 650 mg PO Q6H PRN (Reason: Pain, Mild (Pain Scale 1-3)) 30 Days Qty: 240 0RF spironolactone 25 mg tablet 25 mg PO DAILY duloxetine 60 mg capsule,delayed release(DR/EC) 60 mg PO DAILY citalopram 20 mg tablet 20 mg PO DAILY metformin 1,000 mg tablet 1,000 mg PO BID carvedilol 25 mg tablet 25 mg PO BID amlodipine 10 mg tablet 10 mg PO DAILY aspirin [Enteric Coated Aspirin] 81 mg tablet,delayed release (DR/EC) 81 mg PO DAILY Qty: 90 4RF (DME) Accu-Chek Guide test strips Strip See Rx Instructions .ROUTE DAILY Qty: 10 Rx Instructions: As directed esomeprazole magnesium [Nexium] 40 mg capsule,delayed release(DR/EC) 40 mg PO BID Qty: 60 5RF furosemide 20 mg tablet 20 mg PO DAILY Interventions: ED Discharge Assessment Last Done: 08/21/24 20:54 Discharge Date/Time: 08/21/24 21:31 Print Language: Tamazight
[2024-08-21 20:54] VITALS: BP 174/52; PULSE 66; RESP 18; TEMP 36.4; O2SAT 97
--- OUTSIDE RECORDS SUMMARY | 2024-08-21 20:54 | XMS_ITS | Clinical Summary ---
Author Organization Unknown Care Team Providers [facility] Receptionist Name Role Phone MELANIA RAUSCH, ELLEN Unavailable Unavailable TOMY MC, JOSE Unavailable Unavailable Payers Payer Name Policy Type Policy Number Effective Date Expira tion Date MEDICARE - NGS [place] - PDGM [id number] Problems Condition Name Condition Details Condition Category Status Onset Date Resolution Date Last Treatment Date Treating Clinician Comments ENCNTR FOR SURGICAL AFTCR FOLLOWING SURGERY ON THE CIRC SYS Active 02-04 00:00: 00 TYPE 2 DIABETES MELLITUS WITHOUT COMPLICATION S Active 02-04 00:00: 00 PAROXYSMAL ATRIAL FIBRILLATION Active 02-04 00:00: 00 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 Active 02-04 00:00: [...] 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 Active 02-04 00:00: 00 ALF (CURRENT) USE OF ASPIRIN Active 02-04 00:00: 00 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 (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) USE OF ORAL HYPOGLYCEMIC DRUGS Active [...] 2-17 00:00: 00 01-20 23:59 :00 No [id number] 1 tablet BEDTIME 1 tablet BEDTIME (route: oral) Med Classific ation: Cardiovas cular Therapy Agents pantoprazol e 40 mg tablet,sonia yed release 2- 00:00: 00 01-23 00:00 :00 No [id number] 1 tablet DAILY 1 tablet DAILY (route: oral) Med Classific ation: Gastroint estinal Therapy Agents nitrofurant oin monohydrate /macrocryst als 100 mg capsule 2-13 00:00: 00 11-01 23:59 :00 No [id number] 1 capsule TWICE A DAY FOR UTI FOR 10 DAYS 1 capsule TWICE A DAY FOR UTI FOR 10 DAYS (route: oral) Med Classific ation: Genitouri nary Therapy metformin 1,000 mg tablet - 00:00: 00 01-20 23:59 :00 No [id number] 1 tablet TWICE A DAY DIRECTED 1 tablet TWICE A DAY DIRECTED (route: oral) Med Classific ation: Endocrine amlodipine 10 mg tablet 11-15 00:00: 00 01-20 23:59 :00 No [id number] 1 tablet DAILY 1 tablet DAILY (route: oral) Med Classific ation: Cardiovas cular Therapy Agents ascorbic acid (vitamin C) 1,000 mg capsule 11-15 00:00: 00 01-20 23:59 :00 No [id number] 1 capsule DAILY 1 capsule DAILY (route: oral) Med Classific ation: Electroly te Balance-N utritiona l Products Aspirin Childrens 81 mg chewable tablet 11-15 00:00: 00 01-20 23:59 :00 No [id number] 1 tablet DAILY 1 tablet DAILY (route: oral) Med Classific ation: Hematolog ical Agents carvedilol 25 mg tablet - 00:00: 00 01-20 23:59 :00 No [id number] 1 tablet 2 TIMES DAILY 1 tablet 2 TIMES DAILY (route: oral) Med Classific ation: Cardiovas cular Therapy Agents citalopram 20 mg tablet - 00:00: 00 01-20 23:59 :00 No [id number] 1 tablet DAILY 1 tablet DAILY (route: oral) Med Classific ation: Central Nervous System Agents cyclobenzap rine 5 mg tablet 11-15 00:00: 00 01-20 23:59 :00 No [id number] 1 tablet BEDTIME 1 tablet BEDTIME (route: oral) Med Classific ation: Locomotor System duloxetine 60 mg capsule,del ayed release 11-15 00:00: 00 01-20 23:59 :00 No [id number] 1 capsule DAILY 1 capsule DAILY (route: oral) Med Classific ation: Central Nervous System Agents famotidine 40 mg tablet 11-15 00:00: 00 01-20 23:59 :00 No [id number] 1 tablet BEDTIME 1 tablet BEDTIME (route: oral) Med Classific ation: Gastroint estinal Therapy Agents ferrous sulfate 325 mg (65 mg iron) tablet 11-15 00:00: 00 01-20 23:59 :00 No [id number] 1 tablet DAILY 1 tablet DAILY (route: oral) Med Classific ation: Electroly te Balance-N utritiona l Products furosemide 40 mg tablet 11-15 00:00: 00 12-24 23:59 :00 No [id number] 1 tablet DAILY 1 tablet DAILY (route: oral) Med Classific ation: Cardiovas cular Therapy Agents hydralazine 25 mg tablet 11-15 00:00: 00 12-24 23:59 :00 No [id number] 1 tablet 3 TIMES DAILY 1 tablet 3 TIMES DAILY (route: oral) Med Classific ation: Cardiovas cular Therapy Agents Imbruvica 420 mg tablet 11-15 00:00: 00 01-20 23:59 :00 No [id number] 1 tablet DAILY 1 tablet DAILY (route: oral) Med Classific ation: Antineopl astics Imbruvica 420 mg tablet 11-15 00:00: 00 12-24 00:00 :00 No [id number] 1 tablet DAILY 1 tablet DAILY (route: oral) Med Classific ation: Antineopl astics Januvia 100 mg tablet 11-15 00:00: 00 12-24 23:59 :00 No [id number] 1 tablet DAILY 1 tablet DAILY (route: oral) Med Classific ation: Endocrine pregabalin 150 mg capsule 09 00:00: 00 01-20 23:59 :00 No [id number] 1 capsule 2 TIMES DAILY 1 capsule 2 TIMES DAILY (route: oral) Med Classific ation: Central Nervous System Agents Senna Lax 8.6 mg tablet 11-15 00:00: 00 01-20 23:59 :00 No [id number] 2 tablet BEDTIME 2 tablet BEDTIME (route: oral) Med Classific ation: Gastroint estinal Therapy Agents solifenacin 5 mg tablet 11-15 00:00: 00 01-23 00:00 :00 No [id number] 1 tablet DAILY 1 tablet DAILY (route: oral) Med Classific ation: Genitouri nary Therapy spironolact one 25 mg tablet 11-15 00:00: 00 01-20 23:59 :00 No [id number] 1 tablet DAILY 1 tablet DAILY (route: oral) Med Classific ation: Cardiovas cular Therapy Agents sulindac 150 mg tablet 11-15 00:00: 00 01-23 00:00 :00 No [id number] 1 tablet 2 TIMES DAILY 1 tablet 2 TIMES DAILY (route: oral) Med Classific ation: Analgesic , Anti-infl ammatory or Antipyret ic nitrofurant oin macrocrysta l 100 mg capsule 3-24 00:00: 00 12-24 23:59 :00 No [id number] 1 capsule 2 TIMES DAILY 1 capsule 2 TIMES DAILY (route: oral) Med Classific ation: Genitouri nary Therapy Macrobid 100 mg capsule 4-10 00:00: 00 12-24 23:59 :00 No [id number] 100 mg 2 TIMES DAILY 100 mg 2 TIMES DAILY (route: oral) Med Classific ation: Genitouri nary Therapy cefpodoxime 100 mg tablet 4-16 00:00: 00 12-25 23:59 :00 No [id number] 1 tablet 2 TIMES DAILY 1 tablet 2 TIMES DAILY (route: oral) Med Classific ation: Anti-Infe ctive Agents Citracal-D3 Maximum Plus 325 mg-12.5 mcg-2.75 mg tablet 12-24 00:00: 00 01-20 23:59 :00 No [id number] 1 tablet EVERY AM 1 tablet EVERY AM (route: oral) Med Classific ation: Electroly te Balance-N utritiona l Products magnesium oxide 500 mg capsule 12-24 00:00: 00 01-23 00:00 :00 No [id number] 1 capsule EVERY PM 1 capsule EVERY PM (route: oral) Med Classific ation: Electroly te Balance-N utritiona l Products Multiple Vitamins tablet 12-24 00:00: 00 01-20 23:59 :00 No [id number] 1 tablet EVERY AM 1 tablet EVERY AM (route: oral) Med Classific ation: Electroly te Balance-N utritiona l Products acetaminoph en 325 mg tablet 01-23 00:00: 00 01-20 23:59 :00 No [id number] 2 tablet EVERY 6 HOURS 2 tablet EVERY 6 HOURS (route: oral) Med Classific ation: Analgesic , Anti-infl ammatory or Antipyret ic coenzyme Q10 100 mg capsule 01-23 00:00: 00 01-20 23:59 :00 No [id number] 1 capsule BEDTIME 1 capsule BEDTIME (route: oral) Med Classific ation: Alternati ve Therapy docusate sodium 100 mg capsule 01-22 00:00: 00 01-20 23:59 :00 No [id number] 1 capsule 2 TIMES DAILY 1 capsule 2 TIMES DAILY (route: oral) Med Classific ation: Gastroint estinal Therapy Agents enoxaparin 40 mg/0.4 mL subcutaneou s syringe 01-23 00:00: 00 02-07 23:59 :00 No [id number] 0.4 mL DAILY 0.4 mL DAILY (route: subcutaneo us) Med Classific ation: Hematolog ical Agents furosemide 20 mg tablet 01-22 00:00: 00 01-20 23:59 :00 No [id number] 1 tablet DAILY 1 tablet DAILY (route: oral) Med Classific ation: Cardiovas cular Therapy Agents magnesium oxide 400 mg (241.3 mg magnesium) tablet 01-23 00:00: 00 01-20 23:59 :00 No [id number] 1 tablet BEDTIME 1 tablet BEDTIME (route: oral) Med Classific ation: Electroly te Balance-N utritiona l Products omeprazole 20 mg tablet,sonia yed release 01-22 00:00: 00 01-20 23:59 :00 No [id number] 1 tablet DAILY 1 tablet DAILY (route: oral) Med Classific ation: Gastroint estinal Therapy Agents oxycodone 5 mg tablet 01-22 00:00: 00 01-20 23:59 :00 No [id number] 1 tablet EVERY 4 HOURS 1 tablet EVERY 4 HOURS (route: oral) Med Classific ation: Analgesic , Anti-infl ammatory or Antipyret ic oxycodone ER 10 mg tablet,vanda h resistant,e xtended release 12 hr 01-23 00:00: 00 01-20 23:59 :00 No [id number] 1 tablet EVERY 12 HOURS 1 tablet EVERY 12 HOURS (route: oral) Med Classific ation: Analgesic , Anti-infl ammatory or Antipyret ic polyethylen e glycol 3350 17 gram/dose oral powder 01-22 00:00: 00 01-20 23:59 :00 No [id number] 17 gram DAILY 17 gram DAILY (route: oral) Med Classific ation: Gastroint estinal Therapy Agents fluconazole 150 mg tablet 01-28 00:00: 00 01-20 23:59 :00 No [id number] 1 tablet DIRECTED 1 tablet DIRECTED (route: oral) Med Classific ation: Anti-Infe ctive Agents fluconazole 150 mg tablet 01-16 00:00: 00 02-04 23:59 :00 No [id number] Per instruc tions EVERY 3 DAYS FOR YEAST INFECTION FOR 6 DAYS Per instructio ns EVERY 3 DAYS FOR YEAST INFECTION FOR 6 DAYS (route: oral) Med Classific ation: Anti-Infe ctive Agents duloxetine 60 mg capsule,del ayed release 01-08 00:00: 00 Yes [id number] Per instruc tions EVERY DAY Per instructio ns EVERY DAY (route: oral) Med Classific ation: Central Nervous System Agents pantoprazol e 40 mg tablet,sonia yed release 01-07 00:00: 00 Yes [id number] Per instruc tions TWICE A DAY Per instructio ns TWICE A DAY (route: oral) Med Classific ation: Gastroint estinal Therapy Agents amlodipine 10 mg tablet 01-05 00:00: 00 02-04 23:59 :00 No [id number] Per instruc tions EVERY DAY Per instructio ns EVERY DAY (route: oral) Med Classific ation: Cardiovas cular Therapy Agents metformin 1,000 mg tablet 01-04 00:00: 00 02-04 23:59 :00 No [id number] Per instruc tions TWICE A DAY DIRECTED Per instructio ns TWICE A DAY DIRECTED (route: oral) Med Classific ation: Endocrine pregabalin 150 mg capsule 12-23 00:00: 00 Yes [id number] Per instruc tions 2 (TWO) TIMES A DAY Per instructio ns 2 (TWO) TIMES A DAY (route: oral) Med Classific ation: Central Nervous System Agents acetaminoph en 325 mg tablet 02-04 00:00: 00 Yes [id number] 1 tablet EVERY 6 HOURS 1 tablet EVERY 6 HOURS (route: oral) Med Classific ation: Analgesic , Anti-infl ammatory or Antipyret ic amiodarone 200 mg tablet 02-04 00:00: 00 02-12 23:59 :00 No [id number] 1 tablet 2 TIMES DAILY 1 tablet 2 TIMES DAILY (route: oral) Med Classific ation: Cardiovas cular Therapy Agents amlodipine 5 mg tablet 02-04 00:00: 00 Yes [id number] 1 tablet DAILY 1 tablet DAILY (route: oral) Med Classific ation: Cardiovas cular Therapy Agents ascorbic acid (vitamin C) 500 mg tablet 02-04 00:00: 00 Yes [id number] 1 tablet 2 TIMES DAILY 1 tablet 2 TIMES DAILY (route: oral) Med Classific ation: Electroly te Balance-N utritiona l Products aspirin 81 mg tablet,sonia yed release 02-04 00:00: 00 Yes [id number] 1 tablet DAILY 1 tablet DAILY (route: oral) Med Classific ation: Hematolog ical Agents atorvastati n 80 mg tablet 02-04 00:00: 00 Yes [id number] 1 tablet DIRECTED 1 tablet DIRECTED (route: oral) Med Classific ation: Cardiovas cular Therapy Agents cholecalcif tiera (vitamin D3) 10 mcg (400 unit) capsule 02-04 00:00: 00 Yes [id number] 1 capsule DAILY 1 capsule DAILY (route: oral) Med Classific ation: Electroly te Balance-N utritiona l Products citalopram 20 mg tablet 02-04 00:00: 00 Yes [id number] 1 tablet DAILY 1 tablet DAILY (route: oral) Med Classific ation: Central Nervous System Agents furosemide 40 mg tablet 02-04 00:00: 00 02-12 23:59 :00 No [id number] 1 tablet 2 TIMES DAILY 1 tablet 2 TIMES DAILY (route: oral) Med Classific ation: Cardiovas cular Therapy Agents Humalog KwikPen (U-100) Insulin 100 unit/mL subcutaneou s 02-04 00:00: 00 Yes [id number] Per instruc tions DIRECTED Per instructio ns DIRECTED (route: subcutaneo us) Med Classific ation: Endocrine Imbruvica 140 mg tablet 02-04 00:00: 00 Yes [id number] 1 tablet DAILY 1 tablet DAILY (route: oral) Med Classific ation: Antineopl astics insulin glargine (U-100) 100 unit/mL (3 mL) subcutaneou s pen 02-04 00:00: 00 Yes [id number] 19 unit DIRECTED 19 unit DIRECTED (route: subcutaneo us) Med Classific ation: Endocrine insulin lispro (U-100) 100 unit/mL subcutaneou s pen 02-04 00:00: 00 Yes [id number] 8 unit DIRECTED 8 unit DIRECTED (route: subcutaneo us) Med Classific ation: Endocrine metformin 500 mg tablet 02-04 00:00: 00 Yes [id number] 1 tablet 2 TIMES DAILY 1 tablet 2 TIMES DAILY (route: oral) Med Classific ation: Endocrine metoprolol succinate ER 25 mg tablet,exte nded release 24 hr 02-04 00:00: 00 Yes [id number] Per instruc tions DAILY Per instructio ns DAILY (route: oral) Med Classific ation: Cardiovas cular Therapy Agents Aldactone 25 mg tablet 02-16 00:00: 00 Yes [id number] 25 mg DAILY 25 mg DAILY (route: [...] DRY CLEAN GAUZE, LEAVE OPEN TO AIR. 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 1 - 3 PRN [facility]PC VISITS FOR CATHETER CHANGE(S) AND/OR TROUBLESHOOTING. [code = SKILLED NURSE TO INSTRUCT PATIENT/CAREGIVER ON CARE AND MANAGEMENT OF SUPRAPUBIC CATHETER. SKILLED NURSE FOR SUPRAPUBIC CATHETER INSERTION/MAINTENANCE UTILIZING 18 FR 10 ML BALLOON, CHANGE Q 4 WEEKS AND PRN FOR LEAKING OR MALFUNCTIONING. IRRIGATE SUPRAPUBIC CATHETER WITH 30-60CC NORMAL SALINE PRN BLOCKAGE/LEAKAGE, HEAVY SEDIMENT. 1 - 3 PRN [facility]PC VISITS FOR CATHETER CHANGE(S) AND/OR TROUBLESHOOTING.] Goal 2024-03-04 Patient Goal - TO FEEL BOBBY R Goal Provider Goal - A PLAN OF CARE WILL BE ESTABLISHED THAT MEETS PATIENT'S FPC NEEDS AND INCLUDES PATIENT GOAL FOR HOME [...] End Date/Time Encounter Type Admission Type Attending [facility] Care Department Encounter ID Discharge Date Discharge Status Discharge Condition Discharge Reason Percent Goals Met 2024-02-05 00:00:00 2024-03-04 00:00:00 Outpatient JOSE ROSA [facility] [id number] 2024-03-04 00:00:00 DISCHARGE TO HOME OR SELF CARE INDEPENDEN T IN THE COMMUNITY NO LONGER HOMEBOUND ( ONLY) 47.62
--- OUTSIDE RECORDS SUMMARY | 2024-08-21 20:54 | XMS_ITS | Continuity of Care Document ---
Author Organization [facility] [address] [place] [address] Phone [phone] Social History Type Date Description Comments Sex [...]
--- OUTSIDE RECORDS SUMMARY | 2024-08-21 20:54 | XMS_ITS | Clinical Summary ---
Author Organization Unknown Care Team Providers Care School Bus Aide Name Role Phone MELANIA RAUSCH, ELLEN Unavailable Unavailable TOMY MC, JOSE Unavailable Unavailable Payers Payer Name Policy Type Policy Number Effective Date Expira tion Date MEDICARE - NGS [place] - PDGM [id number] Problems Condition Name Condition Details Condition Category Status Onset Date Resolution Date Last Treatment Date Treating Clinician Comments ENCNTR FOR SURGICAL AFTCR FOLLOWING SURGERY ON THE CIRC SYS Active 02-04 00:00: 00 TYPE 2 DIABETES MELLITUS WITHOUT COMPLICATION S Active 02-04 00:00: 00 PAROXYSMAL ATRIAL FIBRILLATION Active 02-04 00:00: 00 COMMUNICATIONS PROJECT LEAD (CURRENT) USE OF INSULIN Active 02-04 00:00: 00 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 Active 02-04 00:00: 00 MALIGNANT NEOPLASM OF UNSP SITE OF UNSPECIFIED FEMALE BREAST Active 02-04 00:00: 00 ANEMIA IN NEOPLASTIC DISEASE Active 02-04 00:00: 00 ATHSCL HEART DISEASE OF [place] CORONARY ARTERY W/O ANG PCTRS Active 02-04 [...] 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 Active 02-04 00:00: 00 CORRECTION (CURRENT) USE OF ASPIRIN Active 02-04 00:00: 00 COMMUNICATIONS PROJECT LEAD (CURRENT) USE OF ORAL HYPOGLYCEMIC DRUGS Active [...] 2-17 00:00: 00 01-20 23:59 :00 No [id number] 1 tablet BEDTIME 1 tablet BEDTIME (route: oral) Med Classific ation: Cardiovas cular Therapy Agents pantoprazol e 40 mg tablet,sonia yed release 2- 00:00: 00 01-23 00:00 :00 No [id number] 1 tablet DAILY 1 tablet DAILY (route: oral) Med Classific ation: Gastroint estinal Therapy Agents nitrofurant oin monohydrate /macrocryst als 100 mg capsule 2-13 00:00: 00 11-01 23:59 :00 No [id number] 1 capsule TWICE A DAY FOR UTI FOR 10 DAYS 1 capsule TWICE A DAY FOR UTI FOR 10 DAYS (route: oral) Med Classific ation: Genitouri nary Therapy metformin 1,000 mg tablet - 00:00: 00 01-20 23:59 :00 No [id number] 1 tablet TWICE A DAY DIRECTED 1 tablet TWICE A DAY DIRECTED (route: oral) Med Classific ation: Endocrine amlodipine 10 mg tablet 11-15 00:00: 00 01-20 23:59 :00 No [id number] 1 tablet DAILY 1 tablet DAILY (route: oral) Med Classific ation: Cardiovas cular Therapy Agents ascorbic acid (vitamin C) 1,000 mg capsule 11-15 00:00: 00 01-20 23:59 :00 No [id number] 1 capsule DAILY 1 capsule DAILY (route: oral) Med Classific ation: Electroly te Balance-N utritiona l Products Aspirin Childrens 81 mg chewable tablet 11-15 00:00: 00 01-20 23:59 :00 No [id number] 1 tablet DAILY 1 tablet DAILY (route: oral) Med Classific ation: Hematolog ical Agents carvedilol 25 mg tablet - 00:00: 00 01-20 23:59 :00 No [id number] 1 tablet 2 TIMES DAILY 1 tablet 2 TIMES DAILY (route: oral) Med Classific ation: Cardiovas cular Therapy Agents citalopram 20 mg tablet - 00:00: 00 01-20 23:59 :00 No [id number] 1 tablet DAILY 1 tablet DAILY (route: oral) Med Classific ation: Central Nervous System Agents cyclobenzap rine 5 mg tablet 11-15 00:00: 00 01-20 23:59 :00 No [id number] 1 tablet BEDTIME 1 tablet BEDTIME (route: oral) Med Classific ation: Locomotor System duloxetine 60 mg capsule,del ayed release 11-15 00:00: 00 01-20 23:59 :00 No [id number] 1 capsule DAILY 1 capsule DAILY (route: oral) Med Classific ation: Central Nervous System Agents famotidine 40 mg tablet 11-15 00:00: 00 01-20 23:59 :00 No [id number] 1 tablet BEDTIME 1 tablet BEDTIME (route: oral) Med Classific ation: Gastroint estinal Therapy Agents ferrous sulfate 325 mg (65 mg iron) tablet 11-15 00:00: 00 01-20 23:59 :00 No [id number] 1 tablet DAILY 1 tablet DAILY (route: oral) Med Classific ation: Electroly te Balance-N utritiona l Products furosemide 40 mg tablet 11-15 00:00: 00 12-24 23:59 :00 No [id number] 1 tablet DAILY 1 tablet DAILY (route: oral) Med Classific ation: Cardiovas cular Therapy Agents hydralazine 25 mg tablet 11-15 00:00: 00 12-24 23:59 :00 No [id number] 1 tablet 3 TIMES DAILY 1 tablet 3 TIMES DAILY (route: oral) Med Classific ation: Cardiovas cular Therapy Agents Imbruvica 420 mg tablet 11-15 00:00: 00 01-20 23:59 :00 No [id number] 1 tablet DAILY 1 tablet DAILY (route: oral) Med Classific ation: Antineopl astics Imbruvica 420 mg tablet 11-15 00:00: 00 12-24 00:00 :00 No [id number] 1 tablet DAILY 1 tablet DAILY (route: oral) Med Classific ation: Antineopl astics Januvia 100 mg tablet 11-15 00:00: 00 12-24 23:59 :00 No [id number] 1 tablet DAILY 1 tablet DAILY (route: oral) Med Classific ation: Endocrine pregabalin 150 mg capsule 09 00:00: 00 01-20 23:59 :00 No [id number] 1 capsule 2 TIMES DAILY 1 capsule 2 TIMES DAILY (route: oral) Med Classific ation: Central Nervous System Agents Senna Lax 8.6 mg tablet 11-15 00:00: 00 01-20 23:59 :00 No [id number] 2 tablet BEDTIME 2 tablet BEDTIME (route: oral) Med Classific ation: Gastroint estinal Therapy Agents solifenacin 5 mg tablet 11-15 00:00: 00 01-23 00:00 :00 No [id number] 1 tablet DAILY 1 tablet DAILY (route: oral) Med Classific ation: Genitouri nary Therapy spironolact one 25 mg tablet 11-15 00:00: 00 01-20 23:59 :00 No [id number] 1 tablet DAILY 1 tablet DAILY (route: oral) Med Classific ation: Cardiovas cular Therapy Agents sulindac 150 mg tablet 11-15 00:00: 00 01-23 00:00 :00 No [id number] 1 tablet 2 TIMES DAILY 1 tablet 2 TIMES DAILY (route: oral) Med Classific ation: Analgesic , Anti-infl ammatory or Antipyret ic nitrofurant oin macrocrysta l 100 mg capsule 3-24 00:00: 00 12-24 23:59 :00 No [id number] 1 capsule 2 TIMES DAILY 1 capsule 2 TIMES DAILY (route: oral) Med Classific ation: Genitouri nary Therapy Macrobid 100 mg capsule 4-10 00:00: 00 12-24 23:59 :00 No [id number] 100 mg 2 TIMES DAILY 100 mg 2 TIMES DAILY (route: oral) Med Classific ation: Genitouri nary Therapy cefpodoxime 100 mg tablet 4-16 00:00: 00 12-25 23:59 :00 No [id number] 1 tablet 2 TIMES DAILY 1 tablet 2 TIMES DAILY (route: oral) Med Classific ation: Anti-Infe ctive Agents Citracal-D3 Maximum Plus 325 mg-12.5 mcg-2.75 mg tablet 12-24 00:00: 00 01-20 23:59 :00 No [id number] 1 tablet EVERY AM 1 tablet EVERY AM (route: oral) Med Classific ation: Electroly te Balance-N utritiona l Products magnesium oxide 500 mg capsule 12-24 00:00: 00 01-23 00:00 :00 No [id number] 1 capsule EVERY PM 1 capsule EVERY PM (route: oral) Med Classific ation: Electroly te Balance-N utritiona l Products Multiple Vitamins tablet 12-24 00:00: 00 01-20 23:59 :00 No [id number] 1 tablet EVERY AM 1 tablet EVERY AM (route: oral) Med Classific ation: Electroly te Balance-N utritiona l Products acetaminoph en 325 mg tablet 01-23 00:00: 00 01-20 23:59 :00 No [id number] 2 tablet EVERY 6 HOURS 2 tablet EVERY 6 HOURS (route: oral) Med Classific ation: Analgesic , Anti-infl ammatory or Antipyret ic coenzyme Q10 100 mg capsule 01-23 00:00: 00 01-20 23:59 :00 No [id number] 1 capsule BEDTIME 1 capsule BEDTIME (route: oral) Med Classific ation: Alternati ve Therapy docusate sodium 100 mg capsule 01-22 00:00: 00 01-20 23:59 :00 No [id number] 1 capsule 2 TIMES DAILY 1 capsule 2 TIMES DAILY (route: oral) Med Classific ation: Gastroint estinal Therapy Agents enoxaparin 40 mg/0.4 mL subcutaneou s syringe 01-23 00:00: 00 02-07 23:59 :00 No [id number] 0.4 mL DAILY 0.4 mL DAILY (route: subcutaneo us) Med Classific ation: Hematolog ical Agents furosemide 20 mg tablet 01-22 00:00: 00 01-20 23:59 :00 No [id number] 1 tablet DAILY 1 tablet DAILY (route: oral) Med Classific ation: Cardiovas cular Therapy Agents magnesium oxide 400 mg (241.3 mg magnesium) tablet 01-23 00:00: 00 01-20 23:59 :00 No [id number] 1 tablet BEDTIME 1 tablet BEDTIME (route: oral) Med Classific ation: Electroly te Balance-N utritiona l Products omeprazole 20 mg tablet,sonia yed release 01-22 00:00: 00 01-20 23:59 :00 No [id number] 1 tablet DAILY 1 tablet DAILY (route: oral) Med Classific ation: Gastroint estinal Therapy Agents oxycodone 5 mg tablet 01-22 00:00: 00 01-20 23:59 :00 No [id number] 1 tablet EVERY 4 HOURS 1 tablet EVERY 4 HOURS (route: oral) Med Classific ation: Analgesic , Anti-infl ammatory or Antipyret ic oxycodone ER 10 mg tablet,vanda h resistant,e xtended release 12 hr 01-23 00:00: 00 01-20 23:59 :00 No [id number] 1 tablet EVERY 12 HOURS 1 tablet EVERY 12 HOURS (route: oral) Med Classific ation: Analgesic , Anti-infl ammatory or Antipyret ic polyethylen e glycol 3350 17 gram/dose oral powder 01-22 00:00: 00 01-20 23:59 :00 No [id number] 17 gram DAILY 17 gram DAILY (route: oral) Med Classific ation: Gastroint estinal Therapy Agents fluconazole 150 mg tablet 01-28 00:00: 00 01-20 23:59 :00 No [id number] 1 tablet DIRECTED 1 tablet DIRECTED (route: oral) Med Classific ation: Anti-Infe ctive Agents fluconazole 150 mg tablet 01-16 00:00: 00 02-04 23:59 :00 No [id number] Per instruc tions EVERY 3 DAYS FOR YEAST INFECTION FOR 6 DAYS Per instructio ns EVERY 3 DAYS FOR YEAST INFECTION FOR 6 DAYS (route: oral) Med Classific ation: Anti-Infe ctive Agents duloxetine 60 mg capsule,del ayed release 01-08 00:00: 00 Yes [id number] Per instruc tions EVERY DAY Per instructio ns EVERY DAY (route: oral) Med Classific ation: Central Nervous System Agents pantoprazol e 40 mg tablet,sonia yed release 01-07 00:00: 00 Yes [id number] Per instruc tions TWICE A DAY Per instructio ns TWICE A DAY (route: oral) Med Classific ation: Gastroint estinal Therapy Agents amlodipine 10 mg tablet 01-05 00:00: 00 02-04 23:59 :00 No [id number] Per instruc tions EVERY DAY Per instructio ns EVERY DAY (route: oral) Med Classific ation: Cardiovas cular Therapy Agents metformin 1,000 mg tablet 01-04 00:00: 00 02-04 23:59 :00 No [id number] Per instruc tions TWICE A DAY DIRECTED Per instructio ns TWICE A DAY DIRECTED (route: oral) Med Classific ation: Endocrine pregabalin 150 mg capsule 12-23 00:00: 00 Yes [id number] Per instruc tions 2 (TWO) TIMES A DAY Per instructio ns 2 (TWO) TIMES A DAY (route: oral) Med Classific ation: Central Nervous System Agents acetaminoph en 325 mg tablet 02-04 00:00: 00 Yes [id number] 1 tablet EVERY 6 HOURS 1 tablet EVERY 6 HOURS (route: oral) Med Classific ation: Analgesic , Anti-infl ammatory or Antipyret ic amiodarone 200 mg tablet 02-04 00:00: 00 02-12 23:59 :00 No [id number] 1 tablet 2 TIMES DAILY 1 tablet 2 TIMES DAILY (route: oral) Med Classific ation: Cardiovas cular Therapy Agents amlodipine 5 mg tablet 02-04 00:00: 00 Yes [id number] 1 tablet DAILY 1 tablet DAILY (route: oral) Med Classific ation: Cardiovas cular Therapy Agents ascorbic acid (vitamin C) 500 mg tablet 02-04 00:00: 00 Yes [id number] 1 tablet 2 TIMES DAILY 1 tablet 2 TIMES DAILY (route: oral) Med Classific ation: Electroly te Balance-N utritiona l Products aspirin 81 mg tablet,sonia yed release 02-04 00:00: 00 Yes [id number] 1 tablet DAILY 1 tablet DAILY (route: oral) Med Classific ation: Hematolog ical Agents atorvastati n 80 mg tablet 02-04 00:00: 00 Yes [id number] 1 tablet DIRECTED 1 tablet DIRECTED (route: oral) Med Classific ation: Cardiovas cular Therapy Agents cholecalcif tiera (vitamin D3) 10 mcg (400 unit) capsule 02-04 00:00: 00 Yes [id number] 1 capsule DAILY 1 capsule DAILY (route: oral) Med Classific ation: Electroly te Balance-N utritiona l Products citalopram 20 mg tablet 02-04 00:00: 00 Yes [id number] 1 tablet DAILY 1 tablet DAILY (route: oral) Med Classific ation: Central Nervous System Agents furosemide 40 mg tablet 02-04 00:00: 00 02-12 23:59 :00 No [id number] 1 tablet 2 TIMES DAILY 1 tablet 2 TIMES DAILY (route: oral) Med Classific ation: Cardiovas cular Therapy Agents Humalog KwikPen (U-100) Insulin 100 unit/mL subcutaneou s 02-04 00:00: 00 Yes [id number] Per instruc tions DIRECTED Per instructio ns DIRECTED (route: subcutaneo us) Med Classific ation: Endocrine Imbruvica 140 mg tablet 02-04 00:00: 00 Yes [id number] 1 tablet DAILY 1 tablet DAILY (route: oral) Med Classific ation: Antineopl astics insulin glargine (U-100) 100 unit/mL (3 mL) subcutaneou s pen 02-04 00:00: 00 Yes [id number] 19 unit DIRECTED 19 unit DIRECTED (route: subcutaneo us) Med Classific ation: Endocrine insulin lispro (U-100) 100 unit/mL subcutaneou s pen 02-04 00:00: 00 Yes [id number] 8 unit DIRECTED 8 unit DIRECTED (route: subcutaneo us) Med Classific ation: Endocrine metformin 500 mg tablet 02-04 00:00: 00 Yes [id number] 1 tablet 2 TIMES DAILY 1 tablet 2 TIMES DAILY (route: oral) Med Classific ation: Endocrine metoprolol succinate ER 25 mg tablet,exte nded release 24 hr 02-04 00:00: 00 Yes [id number] Per instruc tions DAILY Per instructio ns DAILY (route: oral) Med Classific ation: Cardiovas cular Therapy Agents Aldactone 25 mg tablet 02-16 00:00: 00 Yes [id number] 25 mg DAILY 25 mg DAILY (route: [...] DRY CLEAN GAUZE, LEAVE OPEN TO AIR. PATIENT/EMBEDDED SOFTWARE DEVELOPER WILL PERFORM THIS TWICE DAILY BETWEEN NURSING [...] DRY CLEAN GAUZE, LEAVE OPEN TO AIR. PATIENT/EMBEDDED SOFTWARE DEVELOPER WILL PERFORM THIS TWICE DAILY BETWEEN NURSING [...] BLOCKAGE/LEAKAGE, HEAVY SEDIMENT. 1 - 3 PRN SENIOR LIVING VISITS FOR CATHETER CHANGE(S) AND/OR TROUBLESHOOTING. [code = SKILLED NURSE TO INSTRUCT PATIENT/CAREGIVER ON CARE AND MANAGEMENT OF SUPRAPUBIC CATHETER. SKILLED NURSE FOR SUPRAPUBIC CATHETER INSERTION/MAINTENANCE UTILIZING 18 FR 10 ML BALLOON, CHANGE Q 4 WEEKS AND PRN FOR LEAKING OR MALFUNCTIONING. IRRIGATE SUPRAPUBIC CATHETER WITH 30-60CC NORMAL SALINE PRN BLOCKAGE/LEAKAGE, HEAVY SEDIMENT. 1 - 3 PRN SENIOR LIVING VISITS FOR CATHETER CHANGE(S) AND/OR TROUBLESHOOTING.] Goal 2024-03-04 Patient Goal - TO FEEL BOBBY R Goal Provider Goal - A PLAN OF CARE WILL BE ESTABLISHED THAT MEETS PATIENT'S SENIOR LIVING NEEDS AND INCLUDES PATIENT GOAL FOR HOME [...] End Date/Time Encounter Type Admission Type [facility]ending [facility] Care Department Encounter ID Discharge Date Discharge Status Discharge Condition Discharge Reason Percent Goals Met 2024-02-05 00:00:00 2024-03-04 00:00:00 Outpatient [facility] [id number] 2024-03-04 00:00:00 DISCHARGE TO HOME OR SELF CARE INDEPENDEN T IN THE COMMUNITY NO LONGER HOMEBOUND ( ONLY) 47.62
[2024-08-23 10:17] LABS: Gentamicin Trough 9.6 ug/mL (0.5-2.0)
== END 2024-08-21 21:31 | disposition home or self-care (01) ==
LOC: HO.ED 20:53
PROVIDERS: Physician Assistant; Emergency Provider Emergency Medicine
DX: N39.0 Urinary tract infection, site not specified (principal); E11.9 Type 2 diabetes mellitus without complications; I10 Essential (primary) hypertension; Z85.6 Personal history of leukemia; Z86.73 Personal history of transient ischemic attack (TIA), and cerebral infarction without residual deficits
CPT/HCPCS: 36415; 80170; 99282; 99283

== ENCOUNTER → 2024-08-26 12:42 | Outpatient (BNVA) | payer MEDICARE, OTHER, SELFPAY | PROVIDERS: PCP Family Medicine; Visit Provider Urology | DX: N31.9 Neuromuscular dysfunction of bladder, unspecified (principal) | CPT/HCPCS: 51705 ==

== ENCOUNTER 2024-08-29 09:29 | Outpatient (REF) | payer MEDICARE, OTHER, SELFPAY ==
--- OUTSIDE RECORDS SUMMARY | 2024-08-29 09:31 | XMS_ITS | Patient Health Record ---
Author Organization [facility] Address [address] [place] [address] Care Team Providers Care Casing Mixer Name Role Phone Jamshid RAUSCH, Ricardo Primary Care Provider Unavailab Sylvia Kirkpatrick Unavailable [phone] Prosper Henson Unavailable [phone] Allergies Allergen (clinical drug ingredient) Drug/Non Drug [...] Status Risk Notes Problem Acquired hallux valgus (98606935) Hallux valgus (acquired), left foot (M20.12) Active confirmed Problem Polyneuropathy due to diabetes mellitus type I (330660550) Type 1 diabetes mellitus with diabetic polyneuropathy (E10.42) Active confirmed Problem Polyneuropathy due to type 2 diabetes mellitus (123727832) Type 2 diabetes mellitus with diabetic polyneuropathy (E11.42) Active confirmed Problem Localized, primary osteoarthritis of the ankle and/or foot (084622563) Primary osteoarthritis, left ankle and foot (M19.072) Active confirmed Problem Acquired hallux rigidus (1335695) Hallux rigidus, left foot (M20.22) Active confirmed Problem Non-pressure chronic ulcer of other part of left foot limited to breakdown of skin (L97.521) Active confirmed Problem Non-pressure chronic ulcer of other part of right foot limited to breakdown of skin (L97.511) Active confirmed Problem Polyneuropathy due to type 2 diabetes mellitus (659020830) Type 2 diabetes mellitus with diabetic polyneuropathy (E11.42) Active confirmed Problem Polyneuropathy due to diabetes mellitus type I (257638504) Type 1 diabetes mellitus with diabetic polyneuropathy (E10.42) Active confirmed Vital Signs Blood pressure diastolic 52 mm Hg 07/16/2024 Height 5 ft 4 in in 07/16/2024 Blood pressure systolic 141 mm Hg 07/16/2024 Weight 195 lbs 07/16/2024 BMI 33.47 kg/m2 07/16/2024 Procedures Procedure Date Ordered Date Performed Result Body Sit e 57376-JVSNWPF NAIL, 6 OR MORE 07/16/2024 N/A 44551-KSVA SKIN LESIONS, 2 TO 4 07/16/2024 N/A Encounters Encounter Location Date Provider Diagnosis [facility] [address] 11/06/2023 ProsperMason Type 2 diabetes mellitus with diabetic polyneuropathy E11.42 ; Tinea unguium B35.1 ; Pain in left foot M79.672 ; Primary osteoarthritis, left ankle and foot M19.072 ; Pain in left toe(s) M79.675 ; Pain in right toe(s) M79.674 ; Hallux rigidus, left foot M20.22 ; Hallux valgus (acquired), left foot M20.12 and Localized edema R60.0 [facility] [address] [address] 04/16/2024 Prosper Henson Type 2 diabetes mellitus with diabetic polyneuropathy E11.42 ; Tinea unguium B35.1 ; Pain in left foot M79.672 ; Primary osteoarthritis, left ankle and foot M19.072 ; Pain in left toe(s) M79.675 ; Pain in right toe(s) M79.674 ; Hallux rigidus, left foot M20.22 ; Hallux valgus (acquired), left foot M20.12 and Localized edema R60.[address] [address] 07/16/2024 Sylvia Nguyễn Type 2 diabetes mellitus with diabetic polyneuropathy E11.42 and Tinea unguium B35.[address] [address] 09/24/[address] [address] 10/08/[address] [address] 01/31/2024 [facility] Assessments Encounter Date Diagnosis (ICD Code) Assessment [...] X ray : Foot, left 3V 03/30/2020 04026-QQGSLBF NAIL, 6 OR MORE 07/16/2024 39334-SYWKVQI NAIL, 1-5 05/05/2018 00416-JPSSLPH NAIL, 1-5 07/21/2018 57568-UATGDLL NAIL, 1-5 10/13/2018 79865, J0702- INJECT or DRAIN, JOINT/BUR SA 05/05/2018 79559-VGZQ SKIN LESIONS, OVER 4 05/05/20 18 78466-ZTUU SKIN LESIONS, OVER 4 07/21/20 18 45340-RPBV SKIN LESIONS, OVER 4 01/13/20 19 93056-XIJN SKIN LESIONS, OVER 4 04/13/20 19 08900-NDSW SKIN LESIONS, OVER 4 10/13/19 19 70722-XURB SKIN LESIONS, OVER 4 12/06/19 21 02284-JMNB SKIN LESIONS, OVER 4 05/08/20 21 93473-VGQS SKIN LESIONS, OVER 4 10/18/19 22 43968-HXUU SKIN LESIONS, OVER 4 08/01/20 20 56554-MSLV SKIN LESIONS, OVER 4 03/30/20 20 91385-FTMG SKIN LESIONS, OVER 4 07/13/20 19 69595-XABB SKIN LESIONS, OVER 4 10/12/19 20 07048-TFRK SKIN LESIONS, 2 TO 4 07/16/20 24 00775-MQZC SKIN LESIONS, 2 TO 4 02/20/20 18 83513, W9136-ILBXN/INJECT, JOINT/BURSA 0 10/13/2018 N7751-RBWOLJLF DYSTROPHIC NAILS ANY # X0995-VVZNSCBZ DYSTROPHIC NAILS ANY # I8633-MZAKZSHS DYSTROPHIC NAILS ANY # D1800-MRYOPMHA DYSTROPHIC NAILS ANY # M3278-VXAJZFJC DYSTROPHIC NAILS ANY # D0400-WFYVFSHC DYSTROPHIC NAILS ANY # F2890-HNSAXMOG DYSTROPHIC NAILS ANY # C7164-ZNVJFSWW DYSTROPHIC NAILS ANY # P6541-BXSXULYK DYSTROPHIC NAILS ANY # 45200- Nail Unit Biopsy 02/19/2018 Next Appt Details Provider Name:Sylvia Zarate aimee, 10/15/2024 02:45:00 PM, [address] [facility], [place], [address], Insurance Providers Payer Name Payer Address Payer Phone Subscriber Number Group Number Insured Name Patient Relationship to Insured Coverage Start Date Coverage End Date Medicare [employer] [address] [facility] [address] [id number] Kaitlin Ortiz Self - patient is the insured [address] [place] [address] [address] [place], [place] [id number] Kaitlin Ortiz Self - patient is the [...]
--- OUTSIDE RECORDS SUMMARY | 2024-08-29 09:31 | XMS_ITS | Clinical Summary ---
Author Organization Unknown Care Team Providers Care [employer] Name Role Phone MELANIA RAUSCH, ELLEN Unavailable Unavailable TOMY MC, JOSE Unavailable Unavailable Payers Payer Name Policy Type Policy Number Effective Date Expira tion Date MEDICARE - NGS [place] - PDGM [id number] Problems Condition Name Condition Details Condition Category Status Onset Date Resolution Date Last Treatment Date Treating Clinician Comments ENCNTR FOR SURGICAL AFTCR FOLLOWING SURGERY ON THE CIRC SYS Active 02-04 00:00: 00 TYPE 2 DIABETES MELLITUS WITHOUT COMPLICATION S Active 02-04 00:00: 00 PAROXYSMAL ATRIAL FIBRILLATION Active 02-04 00:00: 00 C PROGRAMMER (CURRENT) USE OF INSULIN Active 02-04 00:00: 00 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 Active 02-04 00:00: 00 MALIGNANT NEOPLASM OF UNSP SITE OF UNSPECIFIED FEMALE BREAST Active 02-04 00:00: 00 ANEMIA IN NEOPLASTIC DISEASE Active 02-04 00:00: 00 ATHSCL HEART DISEASE OF [place] CORONARY ARTERY W/O ANG PCTRS Active 02-04 [...] 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 Active 02-04 00:00: 00 FDC (CURRENT) USE OF ASPIRIN Active 02-04 00:00: 00 C PROGRAMMER (CURRENT) USE OF ORAL HYPOGLYCEMIC DRUGS Active [...] 2-17 00:00: 00 01-20 23:59 :00 No [id number] 1 tablet BEDTIME 1 tablet BEDTIME (route: oral) Med Classific ation: Cardiovas cular Therapy Agents pantoprazol e 40 mg tablet,sonia yed release 2- 00:00: 00 01-23 00:00 :00 No [id number] 1 tablet DAILY 1 tablet DAILY (route: oral) Med Classific ation: Gastroint estinal Therapy Agents nitrofurant oin monohydrate /macrocryst als 100 mg capsule 2-13 00:00: 00 11-01 23:59 :00 No [id number] 1 capsule TWICE A DAY FOR UTI FOR 10 DAYS 1 capsule TWICE A DAY FOR UTI FOR 10 DAYS (route: oral) Med Classific ation: Genitouri nary Therapy metformin 1,000 mg tablet - 00:00: 00 01-20 23:59 :00 No [id number] 1 tablet TWICE A DAY DIRECTED 1 tablet TWICE A DAY DIRECTED (route: oral) Med Classific ation: Endocrine amlodipine 10 mg tablet 11-15 00:00: 00 01-20 23:59 :00 No [id number] 1 tablet DAILY 1 tablet DAILY (route: oral) Med Classific ation: Cardiovas cular Therapy Agents ascorbic acid (vitamin C) 1,000 mg capsule 11-15 00:00: 00 01-20 23:59 :00 No [id number] 1 capsule DAILY 1 capsule DAILY (route: oral) Med Classific ation: Electroly te Balance-N utritiona l Products Aspirin Childrens 81 mg chewable tablet 11-15 00:00: 00 01-20 23:59 :00 No [id number] 1 tablet DAILY 1 tablet DAILY (route: oral) Med Classific ation: Hematolog ical Agents carvedilol 25 mg tablet - 00:00: 00 01-20 23:59 :00 No [id number] 1 tablet 2 TIMES DAILY 1 tablet 2 TIMES DAILY (route: oral) Med Classific ation: Cardiovas cular Therapy Agents citalopram 20 mg tablet - 00:00: 00 01-20 23:59 :00 No [id number] 1 tablet DAILY 1 tablet DAILY (route: oral) Med Classific ation: Central Nervous System Agents cyclobenzap rine 5 mg tablet 11-15 00:00: 00 01-20 23:59 :00 No [id number] 1 tablet BEDTIME 1 tablet BEDTIME (route: oral) Med Classific ation: Locomotor System duloxetine 60 mg capsule,del ayed release 11-15 00:00: 00 01-20 23:59 :00 No [id number] 1 capsule DAILY 1 capsule DAILY (route: oral) Med Classific ation: Central Nervous System Agents famotidine 40 mg tablet 11-15 00:00: 00 01-20 23:59 :00 No [id number] 1 tablet BEDTIME 1 tablet BEDTIME (route: oral) Med Classific ation: Gastroint estinal Therapy Agents ferrous sulfate 325 mg (65 mg iron) tablet 11-15 00:00: 00 01-20 23:59 :00 No [id number] 1 tablet DAILY 1 tablet DAILY (route: oral) Med Classific ation: Electroly te Balance-N utritiona l Products furosemide 40 mg tablet 11-15 00:00: 00 12-24 23:59 :00 No [id number] 1 tablet DAILY 1 tablet DAILY (route: oral) Med Classific ation: Cardiovas cular Therapy Agents hydralazine 25 mg tablet 11-15 00:00: 00 12-24 23:59 :00 No [id number] 1 tablet 3 TIMES DAILY 1 tablet 3 TIMES DAILY (route: oral) Med Classific ation: Cardiovas cular Therapy Agents Imbruvica 420 mg tablet 11-15 00:00: 00 01-20 23:59 :00 No [id number] 1 tablet DAILY 1 tablet DAILY (route: oral) Med Classific ation: Antineopl astics Imbruvica 420 mg tablet 11-15 00:00: 00 12-24 00:00 :00 No [id number] 1 tablet DAILY 1 tablet DAILY (route: oral) Med Classific ation: Antineopl astics Januvia 100 mg tablet 11-15 00:00: 00 12-24 23:59 :00 No [id number] 1 tablet DAILY 1 tablet DAILY (route: oral) Med Classific ation: Endocrine pregabalin 150 mg capsule 09 00:00: 00 01-20 23:59 :00 No [id number] 1 capsule 2 TIMES DAILY 1 capsule 2 TIMES DAILY (route: oral) Med Classific ation: Central Nervous System Agents Senna Lax 8.6 mg tablet 11-15 00:00: 00 01-20 23:59 :00 No [id number] 2 tablet BEDTIME 2 tablet BEDTIME (route: oral) Med Classific ation: Gastroint estinal Therapy Agents solifenacin 5 mg tablet 11-15 00:00: 00 01-23 00:00 :00 No [id number] 1 tablet DAILY 1 tablet DAILY (route: oral) Med Classific ation: Genitouri nary Therapy spironolact one 25 mg tablet 11-15 00:00: 00 01-20 23:59 :00 No [id number] 1 tablet DAILY 1 tablet DAILY (route: oral) Med Classific ation: Cardiovas cular Therapy Agents sulindac 150 mg tablet 11-15 00:00: 00 01-23 00:00 :00 No [id number] 1 tablet 2 TIMES DAILY 1 tablet 2 TIMES DAILY (route: oral) Med Classific ation: Analgesic , Anti-infl ammatory or Antipyret ic nitrofurant oin macrocrysta l 100 mg capsule 3-24 00:00: 00 12-24 23:59 :00 No [id number] 1 capsule 2 TIMES DAILY 1 capsule 2 TIMES DAILY (route: oral) Med Classific ation: Genitouri nary Therapy Macrobid 100 mg capsule 4-10 00:00: 00 12-24 23:59 :00 No [id number] 100 mg 2 TIMES DAILY 100 mg 2 TIMES DAILY (route: oral) Med Classific ation: Genitouri nary Therapy cefpodoxime 100 mg tablet 4-16 00:00: 00 12-25 23:59 :00 No [id number] 1 tablet 2 TIMES DAILY 1 tablet 2 TIMES DAILY (route: oral) Med Classific ation: Anti-Infe ctive Agents Citracal-D3 Maximum Plus 325 mg-12.5 mcg-2.75 mg tablet 12-24 00:00: 00 01-20 23:59 :00 No [id number] 1 tablet EVERY AM 1 tablet EVERY AM (route: oral) Med Classific ation: Electroly te Balance-N utritiona l Products magnesium oxide 500 mg capsule 12-24 00:00: 00 01-23 00:00 :00 No [id number] 1 capsule EVERY PM 1 capsule EVERY PM (route: oral) Med Classific ation: Electroly te Balance-N utritiona l Products Multiple Vitamins tablet 12-24 00:00: 00 01-20 23:59 :00 No [id number] 1 tablet EVERY AM 1 tablet EVERY AM (route: oral) Med Classific ation: Electroly te Balance-N utritiona l Products acetaminoph en 325 mg tablet 01-23 00:00: 00 01-20 23:59 :00 No [id number] 2 tablet EVERY 6 HOURS 2 tablet EVERY 6 HOURS (route: oral) Med Classific ation: Analgesic , Anti-infl ammatory or Antipyret ic coenzyme Q10 100 mg capsule 01-23 00:00: 00 01-20 23:59 :00 No [id number] 1 capsule BEDTIME 1 capsule BEDTIME (route: oral) Med Classific ation: Alternati ve Therapy docusate sodium 100 mg capsule 01-22 00:00: 00 01-20 23:59 :00 No [id number] 1 capsule 2 TIMES DAILY 1 capsule 2 TIMES DAILY (route: oral) Med Classific ation: Gastroint estinal Therapy Agents enoxaparin 40 mg/0.4 mL subcutaneou s syringe 01-23 00:00: 00 02-07 23:59 :00 No [id number] 0.4 mL DAILY 0.4 mL DAILY (route: subcutaneo us) Med Classific ation: Hematolog ical Agents furosemide 20 mg tablet 01-22 00:00: 00 01-20 23:59 :00 No [id number] 1 tablet DAILY 1 tablet DAILY (route: oral) Med Classific ation: Cardiovas cular Therapy Agents magnesium oxide 400 mg (241.3 mg magnesium) tablet 01-23 00:00: 00 01-20 23:59 :00 No [id number] 1 tablet BEDTIME 1 tablet BEDTIME (route: oral) Med Classific ation: Electroly te Balance-N utritiona l Products omeprazole 20 mg tablet,sonia yed release 01-22 00:00: 00 01-20 23:59 :00 No [id number] 1 tablet DAILY 1 tablet DAILY (route: oral) Med Classific ation: Gastroint estinal Therapy Agents oxycodone 5 mg tablet 01-22 00:00: 00 01-20 23:59 :00 No [id number] 1 tablet EVERY 4 HOURS 1 tablet EVERY 4 HOURS (route: oral) Med Classific ation: Analgesic , Anti-infl ammatory or Antipyret ic oxycodone ER 10 mg tablet,vanda h resistant,e xtended release 12 hr 01-23 00:00: 00 01-20 23:59 :00 No [id number] 1 tablet EVERY 12 HOURS 1 tablet EVERY 12 HOURS (route: oral) Med Classific ation: Analgesic , Anti-infl ammatory or Antipyret ic polyethylen e glycol 3350 17 gram/dose oral powder 01-22 00:00: 00 01-20 23:59 :00 No [id number] 17 gram DAILY 17 gram DAILY (route: oral) Med Classific ation: Gastroint estinal Therapy Agents fluconazole 150 mg tablet 01-28 00:00: 00 01-20 23:59 :00 No [id number] 1 tablet DIRECTED 1 tablet DIRECTED (route: oral) Med Classific ation: Anti-Infe ctive Agents fluconazole 150 mg tablet 01-16 00:00: 00 02-04 23:59 :00 No [id number] Per instruc tions EVERY 3 DAYS FOR YEAST INFECTION FOR 6 DAYS Per instructio ns EVERY 3 DAYS FOR YEAST INFECTION FOR 6 DAYS (route: oral) Med Classific ation: Anti-Infe ctive Agents duloxetine 60 mg capsule,del ayed release 01-08 00:00: 00 Yes [id number] Per instruc tions EVERY DAY Per instructio ns EVERY DAY (route: oral) Med Classific ation: Central Nervous System Agents pantoprazol e 40 mg tablet,sonia yed release 01-07 00:00: 00 Yes [id number] Per instruc tions TWICE A DAY Per instructio ns TWICE A DAY (route: oral) Med Classific ation: Gastroint estinal Therapy Agents amlodipine 10 mg tablet 01-05 00:00: 00 02-04 23:59 :00 No [id number] Per instruc tions EVERY DAY Per instructio ns EVERY DAY (route: oral) Med Classific ation: Cardiovas cular Therapy Agents metformin 1,000 mg tablet 01-04 00:00: 00 02-04 23:59 :00 No [id number] Per instruc tions TWICE A DAY DIRECTED Per instructio ns TWICE A DAY DIRECTED (route: oral) Med Classific ation: Endocrine pregabalin 150 mg capsule 12-23 00:00: 00 Yes [id number] Per instruc tions 2 (TWO) TIMES A DAY Per instructio ns 2 (TWO) TIMES A DAY (route: oral) Med Classific ation: Central Nervous System Agents acetaminoph en 325 mg tablet 02-04 00:00: 00 Yes [id number] 1 tablet EVERY 6 HOURS 1 tablet EVERY 6 HOURS (route: oral) Med Classific ation: Analgesic , Anti-infl ammatory or Antipyret ic amiodarone 200 mg tablet 02-04 00:00: 00 02-12 23:59 :00 No [id number] 1 tablet 2 TIMES DAILY 1 tablet 2 TIMES DAILY (route: oral) Med Classific ation: Cardiovas cular Therapy Agents amlodipine 5 mg tablet 02-04 00:00: 00 Yes [id number] 1 tablet DAILY 1 tablet DAILY (route: oral) Med Classific ation: Cardiovas cular Therapy Agents ascorbic acid (vitamin C) 500 mg tablet 02-04 00:00: 00 Yes [id number] 1 tablet 2 TIMES DAILY 1 tablet 2 TIMES DAILY (route: oral) Med Classific ation: Electroly te Balance-N utritiona l Products aspirin 81 mg tablet,sonia yed release 02-04 00:00: 00 Yes [id number] 1 tablet DAILY 1 tablet DAILY (route: oral) Med Classific ation: Hematolog ical Agents atorvastati n 80 mg tablet 02-04 00:00: 00 Yes [id number] 1 tablet DIRECTED 1 tablet DIRECTED (route: oral) Med Classific ation: Cardiovas cular Therapy Agents cholecalcif tiera (vitamin D3) 10 mcg (400 unit) capsule 02-04 00:00: 00 Yes [id number] 1 capsule DAILY 1 capsule DAILY (route: oral) Med Classific ation: Electroly te Balance-N utritiona l Products citalopram 20 mg tablet 02-04 00:00: 00 Yes [id number] 1 tablet DAILY 1 tablet DAILY (route: oral) Med Classific ation: Central Nervous System Agents furosemide 40 mg tablet 02-04 00:00: 00 02-12 23:59 :00 No [id number] 1 tablet 2 TIMES DAILY 1 tablet 2 TIMES DAILY (route: oral) Med Classific ation: Cardiovas cular Therapy Agents Humalog KwikPen (U-100) Insulin 100 unit/mL subcutaneou s 02-04 00:00: 00 Yes [id number] Per instruc tions DIRECTED Per instructio ns DIRECTED (route: subcutaneo us) Med Classific ation: Endocrine Imbruvica 140 mg tablet 02-04 00:00: 00 Yes [id number] 1 tablet DAILY 1 tablet DAILY (route: oral) Med Classific ation: Antineopl astics insulin glargine (U-100) 100 unit/mL (3 mL) subcutaneou s pen 02-04 00:00: 00 Yes [id number] 19 unit DIRECTED 19 unit DIRECTED (route: subcutaneo us) Med Classific ation: Endocrine insulin lispro (U-100) 100 unit/mL subcutaneou s pen 02-04 00:00: 00 Yes [id number] 8 unit DIRECTED 8 unit DIRECTED (route: subcutaneo us) Med Classific ation: Endocrine metformin 500 mg tablet 02-04 00:00: 00 Yes [id number] 1 tablet 2 TIMES DAILY 1 tablet 2 TIMES DAILY (route: oral) Med Classific ation: Endocrine metoprolol succinate ER 25 mg tablet,exte nded release 24 hr 02-04 00:00: 00 Yes [id number] Per instruc tions DAILY Per instructio ns DAILY (route: oral) Med Classific ation: Cardiovas cular Therapy Agents Aldactone 25 mg tablet 02-16 00:00: 00 Yes [id number] 25 mg DAILY 25 mg DAILY (route: [...] DRY CLEAN GAUZE, LEAVE OPEN TO AIR. PATIENT/ADVERTISING EXECUTIVE WILL PERFORM THIS TWICE DAILY BETWEEN NURSING [...] DRY CLEAN GAUZE, LEAVE OPEN TO AIR. PATIENT/ADVERTISING EXECUTIVE WILL PERFORM THIS TWICE DAILY BETWEEN NURSING [...] End Date/Time Encounter Type Admission Type Attending [facility] [place] Care Department Encounter ID Discharge Date Discharge Status Discharge Condition Discharge Reason Percent Goals Met 2024-02-05 00:00:00 2024-03-04 00:00:00 Outpatient JOSE [facility]A [facility] [id number] 2024-03-04 00:00:00 DISCHARGE TO HOME OR SELF CARE INDEPENDEN T IN THE COMM[facility]ITY NO LONGER HOMEBOUND ( ONLY) 47.62
--- OUTSIDE RECORDS SUMMARY | 2024-08-29 09:31 | XMS_ITS | Continuity of Care Document ---
Author Organization [facility] [address] [place] [address] Phone [phone] Social History Type Date Description Comments Sex [...]
--- OUTSIDE RECORDS SUMMARY | 2024-08-29 09:31 | XMS_ITS | Clinical Summary ---
Author Organization Unknown Care Team Providers Care Visual Merchandising Specialist Name Role Phone MELANIA RAUSCH, ELLEN Unavailable Unavailable TOMY MC, JOSE Unavailable Unavailable Payers Payer Name Policy Type Policy Number Effective Date Expira tion Date MEDICARE - NGS [place] - PDGM [id number] Problems Condition Name Condition Details Condition Category Status Onset Date Resolution Date Last Treatment Date Treating Clinician Comments ENCNTR FOR SURGICAL AFTCR FOLLOWING SURGERY ON THE CIRC SYS Active 02-04 00:00: 00 TYPE 2 DIABETES MELLITUS WITHOUT COMPLICATION S Active 02-04 00:00: 00 PAROXYSMAL ATRIAL FIBRILLATION Active 02-04 00:00: 00 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 Active 02-04 00:00: 00 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 Active 02-04 00:00: 00 MALIGNANT NEOPLASM OF UNSP SITE OF UNSPECIFIED FEMALE BREAST Active 02-04 00:00: 00 ANEMIA IN NEOPLASTIC DISEASE Active 02-04 00:00: 00 ATHSCL HEART DISEASE OF [place] CORONARY ARTERY W/O ANG PCTRS Active 02-04 [...] 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 Active 02-04 00:00: 00 MCC (CURRENT) USE OF ASPIRIN Active 02-04 00:00: 00 ONLINE SERVICES MANAGER (CURRENT) USE OF ORAL HYPOGLYCEMIC DRUGS [...] 2-17 00:00: 00 01-20 23:59 :00 No [id number] 1 tablet BEDTIME 1 tablet BEDTIME (route: oral) Med Classific ation: Cardiovas cular Therapy Agents pantoprazol e 40 mg tablet,sonia yed release 2- 00:00: 00 01-23 00:00 :00 No [id number] 1 tablet DAILY 1 tablet DAILY (route: oral) Med Classific ation: Gastroint estinal Therapy Agents nitrofurant oin monohydrate /macrocryst als 100 mg capsule 2-13 00:00: 00 11-01 23:59 :00 No [id number] 1 capsule TWICE A DAY FOR UTI FOR 10 DAYS 1 capsule TWICE A DAY FOR UTI FOR 10 DAYS (route: oral) Med Classific ation: Genitouri nary Therapy metformin 1,000 mg tablet - 00:00: 00 01-20 23:59 :00 No [id number] 1 tablet TWICE A DAY DIRECTED 1 tablet TWICE A DAY DIRECTED (route: oral) Med Classific ation: Endocrine amlodipine 10 mg tablet 11-15 00:00: 00 01-20 23:59 :00 No [id number] 1 tablet DAILY 1 tablet DAILY (route: oral) Med Classific ation: Cardiovas cular Therapy Agents ascorbic acid (vitamin C) 1,000 mg capsule 11-15 00:00: 00 01-20 23:59 :00 No [id number] 1 capsule DAILY 1 capsule DAILY (route: oral) Med Classific ation: Electroly te Balance-N utritiona l Products Aspirin Childrens 81 mg chewable tablet 11-15 00:00: 00 01-20 23:59 :00 No [id number] 1 tablet DAILY 1 tablet DAILY (route: oral) Med Classific ation: Hematolog ical Agents carvedilol 25 mg tablet - 00:00: 00 01-20 23:59 :00 No [id number] 1 tablet 2 TIMES DAILY 1 tablet 2 TIMES DAILY (route: oral) Med Classific ation: Cardiovas cular Therapy Agents citalopram 20 mg tablet - 00:00: 00 01-20 23:59 :00 No [id number] 1 tablet DAILY 1 tablet DAILY (route: oral) Med Classific ation: Central Nervous System Agents cyclobenzap rine 5 mg tablet 11-15 00:00: 00 01-20 23:59 :00 No [id number] 1 tablet BEDTIME 1 tablet BEDTIME (route: oral) Med Classific ation: Locomotor System duloxetine 60 mg capsule,del ayed release 11-15 00:00: 00 01-20 23:59 :00 No [id number] 1 capsule DAILY 1 capsule DAILY (route: oral) Med Classific ation: Central Nervous System Agents famotidine 40 mg tablet 11-15 00:00: 00 01-20 23:59 :00 No [id number] 1 tablet BEDTIME 1 tablet BEDTIME (route: oral) Med Classific ation: Gastroint estinal Therapy Agents ferrous sulfate 325 mg (65 mg iron) tablet 11-15 00:00: 00 01-20 23:59 :00 No [id number] 1 tablet DAILY 1 tablet DAILY (route: oral) Med Classific ation: Electroly te Balance-N utritiona l Products furosemide 40 mg tablet 11-15 00:00: 00 12-24 23:59 :00 No [id number] 1 tablet DAILY 1 tablet DAILY (route: oral) Med Classific ation: Cardiovas cular Therapy Agents hydralazine 25 mg tablet 11-15 00:00: 00 12-24 23:59 :00 No [id number] 1 tablet 3 TIMES DAILY 1 tablet 3 TIMES DAILY (route: oral) Med Classific ation: Cardiovas cular Therapy Agents Imbruvica 420 mg tablet 11-15 00:00: 00 01-20 23:59 :00 No [id number] 1 tablet DAILY 1 tablet DAILY (route: oral) Med Classific ation: Antineopl astics Imbruvica 420 mg tablet 11-15 00:00: 00 12-24 00:00 :00 No [id number] 1 tablet DAILY 1 tablet DAILY (route: oral) Med Classific ation: Antineopl astics Januvia 100 mg tablet 11-15 00:00: 00 12-24 23:59 :00 No [id number] 1 tablet DAILY 1 tablet DAILY (route: oral) Med Classific ation: Endocrine pregabalin 150 mg capsule 09 00:00: 00 01-20 23:59 :00 No [id number] 1 capsule 2 TIMES DAILY 1 capsule 2 TIMES DAILY (route: oral) Med Classific ation: Central Nervous System Agents Senna Lax 8.6 mg tablet 11-15 00:00: 00 01-20 23:59 :00 No [id number] 2 tablet BEDTIME 2 tablet BEDTIME (route: oral) Med Classific ation: Gastroint estinal Therapy Agents solifenacin 5 mg tablet 11-15 00:00: 00 01-23 00:00 :00 No [id number] 1 tablet DAILY 1 tablet DAILY (route: oral) Med Classific ation: Genitouri nary Therapy spironolact one 25 mg tablet 11-15 00:00: 00 01-20 23:59 :00 No [id number] 1 tablet DAILY 1 tablet DAILY (route: oral) Med Classific ation: Cardiovas cular Therapy Agents sulindac 150 mg tablet 11-15 00:00: 00 01-23 00:00 :00 No [id number] 1 tablet 2 TIMES DAILY 1 tablet 2 TIMES DAILY (route: oral) Med Classific ation: Analgesic , Anti-infl ammatory or Antipyret ic nitrofurant oin macrocrysta l 100 mg capsule 3-24 00:00: 00 12-24 23:59 :00 No [id number] 1 capsule 2 TIMES DAILY 1 capsule 2 TIMES DAILY (route: oral) Med Classific ation: Genitouri nary Therapy Macrobid 100 mg capsule 4-10 00:00: 00 12-24 23:59 :00 No [id number] 100 mg 2 TIMES DAILY 100 mg 2 TIMES DAILY (route: oral) Med Classific ation: Genitouri nary Therapy cefpodoxime 100 mg tablet 4-16 00:00: 00 12-25 23:59 :00 No [id number] 1 tablet 2 TIMES DAILY 1 tablet 2 TIMES DAILY (route: oral) Med Classific ation: Anti-Infe ctive Agents Citracal-D3 Maximum Plus 325 mg-12.5 mcg-2.75 mg tablet 12-24 00:00: 00 01-20 23:59 :00 No [id number] 1 tablet EVERY AM 1 tablet EVERY AM (route: oral) Med Classific ation: Electroly te Balance-N utritiona l Products magnesium oxide 500 mg capsule 12-24 00:00: 00 01-23 00:00 :00 No [id number] 1 capsule EVERY PM 1 capsule EVERY PM (route: oral) Med Classific ation: Electroly te Balance-N utritiona l Products Multiple Vitamins tablet 12-24 00:00: 00 01-20 23:59 :00 No [id number] 1 tablet EVERY AM 1 tablet EVERY AM (route: oral) Med Classific ation: Electroly te Balance-N utritiona l Products acetaminoph en 325 mg tablet 01-23 00:00: 00 01-20 23:59 :00 No [id number] 2 tablet EVERY 6 HOURS 2 tablet EVERY 6 HOURS (route: oral) Med Classific ation: Analgesic , Anti-infl ammatory or Antipyret ic coenzyme Q10 100 mg capsule 01-23 00:00: 00 01-20 23:59 :00 No [id number] 1 capsule BEDTIME 1 capsule BEDTIME (route: oral) Med Classific ation: Alternati ve Therapy docusate sodium 100 mg capsule 01-22 00:00: 00 01-20 23:59 :00 No [id number] 1 capsule 2 TIMES DAILY 1 capsule 2 TIMES DAILY (route: oral) Med Classific ation: Gastroint estinal Therapy Agents enoxaparin 40 mg/0.4 mL subcutaneou s syringe 01-23 00:00: 00 02-07 23:59 :00 No [id number] 0.4 mL DAILY 0.4 mL DAILY (route: subcutaneo us) Med Classific ation: Hematolog ical Agents furosemide 20 mg tablet 01-22 00:00: 00 01-20 23:59 :00 No [id number] 1 tablet DAILY 1 tablet DAILY (route: oral) Med Classific ation: Cardiovas cular Therapy Agents magnesium oxide 400 mg (241.3 mg magnesium) tablet 01-23 00:00: 00 01-20 23:59 :00 No [id number] 1 tablet BEDTIME 1 tablet BEDTIME (route: oral) Med Classific ation: Electroly te Balance-N utritiona l Products omeprazole 20 mg tablet,sonia yed release 01-22 00:00: 00 01-20 23:59 :00 No [id number] 1 tablet DAILY 1 tablet DAILY (route: oral) Med Classific ation: Gastroint estinal Therapy Agents oxycodone 5 mg tablet 01-22 00:00: 00 01-20 23:59 :00 No [id number] 1 tablet EVERY 4 HOURS 1 tablet EVERY 4 HOURS (route: oral) Med Classific ation: Analgesic , Anti-infl ammatory or Antipyret ic oxycodone ER 10 mg tablet,vanda h resistant,e xtended release 12 hr 01-23 00:00: 00 01-20 23:59 :00 No [id number] 1 tablet EVERY 12 HOURS 1 tablet EVERY 12 HOURS (route: oral) Med Classific ation: Analgesic , Anti-infl ammatory or Antipyret ic polyethylen e glycol 3350 17 gram/dose oral powder 01-22 00:00: 00 01-20 23:59 :00 No [id number] 17 gram DAILY 17 gram DAILY (route: oral) Med Classific ation: Gastroint estinal Therapy Agents fluconazole 150 mg tablet 01-28 00:00: 00 01-20 23:59 :00 No [id number] 1 tablet DIRECTED 1 tablet DIRECTED (route: oral) Med Classific ation: Anti-Infe ctive Agents fluconazole 150 mg tablet 01-16 00:00: 00 02-04 23:59 :00 No [id number] Per instruc tions EVERY 3 DAYS FOR YEAST INFECTION FOR 6 DAYS Per instructio ns EVERY 3 DAYS FOR YEAST INFECTION FOR 6 DAYS (route: oral) Med Classific ation: Anti-Infe ctive Agents duloxetine 60 mg capsule,del ayed release 01-08 00:00: 00 Yes [id number] Per instruc tions EVERY DAY Per instructio ns EVERY DAY (route: oral) Med Classific ation: Central Nervous System Agents pantoprazol e 40 mg tablet,sonia yed release 01-07 00:00: 00 Yes [id number] Per instruc tions TWICE A DAY Per instructio ns TWICE A DAY (route: oral) Med Classific ation: Gastroint estinal Therapy Agents amlodipine 10 mg tablet 01-05 00:00: 00 02-04 23:59 :00 No [id number] Per instruc tions EVERY DAY Per instructio ns EVERY DAY (route: oral) Med Classific ation: Cardiovas cular Therapy Agents metformin 1,000 mg tablet 01-04 00:00: 00 02-04 23:59 :00 No [id number] Per instruc tions TWICE A DAY DIRECTED Per instructio ns TWICE A DAY DIRECTED (route: oral) Med Classific ation: Endocrine pregabalin 150 mg capsule 12-23 00:00: 00 Yes [id number] Per instruc tions 2 (TWO) TIMES A DAY Per instructio ns 2 (TWO) TIMES A DAY (route: oral) Med Classific ation: Central Nervous System Agents acetaminoph en 325 mg tablet 02-04 00:00: 00 Yes [id number] 1 tablet EVERY 6 HOURS 1 tablet EVERY 6 HOURS (route: oral) Med Classific ation: Analgesic , Anti-infl ammatory or Antipyret ic amiodarone 200 mg tablet 02-04 00:00: 00 02-12 23:59 :00 No [id number] 1 tablet 2 TIMES DAILY 1 tablet 2 TIMES DAILY (route: oral) Med Classific ation: Cardiovas cular Therapy Agents amlodipine 5 mg tablet 02-04 00:00: 00 Yes [id number] 1 tablet DAILY 1 tablet DAILY (route: oral) Med Classific ation: Cardiovas cular Therapy Agents ascorbic acid (vitamin C) 500 mg tablet 02-04 00:00: 00 Yes [id number] 1 tablet 2 TIMES DAILY 1 tablet 2 TIMES DAILY (route: oral) Med Classific ation: Electroly te Balance-N utritiona l Products aspirin 81 mg tablet,sonia yed release 02-04 00:00: 00 Yes [id number] 1 tablet DAILY 1 tablet DAILY (route: oral) Med Classific ation: Hematolog ical Agents atorvastati n 80 mg tablet 02-04 00:00: 00 Yes [id number] 1 tablet DIRECTED 1 tablet DIRECTED (route: oral) Med Classific ation: Cardiovas cular Therapy Agents cholecalcif tiera (vitamin D3) 10 mcg (400 unit) capsule 02-04 00:00: 00 Yes [id number] 1 capsule DAILY 1 capsule DAILY (route: oral) Med Classific ation: Electroly te Balance-N utritiona l Products citalopram 20 mg tablet 02-04 00:00: 00 Yes [id number] 1 tablet DAILY 1 tablet DAILY (route: oral) Med Classific ation: Central Nervous System Agents furosemide 40 mg tablet 02-04 00:00: 00 02-12 23:59 :00 No [id number] 1 tablet 2 TIMES DAILY 1 tablet 2 TIMES DAILY (route: oral) Med Classific ation: Cardiovas cular Therapy Agents Humalog KwikPen (U-100) Insulin 100 unit/mL subcutaneou s 02-04 00:00: 00 Yes [id number] Per instruc tions DIRECTED Per instructio ns DIRECTED (route: subcutaneo us) Med Classific ation: Endocrine Imbruvica 140 mg tablet 02-04 00:00: 00 Yes [id number] 1 tablet DAILY 1 tablet DAILY (route: oral) Med Classific ation: Antineopl astics insulin glargine (U-100) 100 unit/mL (3 mL) subcutaneou s pen 02-04 00:00: 00 Yes [id number] 19 unit DIRECTED 19 unit DIRECTED (route: subcutaneo us) Med Classific ation: Endocrine insulin lispro (U-100) 100 unit/mL subcutaneou s pen 02-04 00:00: 00 Yes [id number] 8 unit DIRECTED 8 unit DIRECTED (route: subcutaneo us) Med Classific ation: Endocrine metformin 500 mg tablet 02-04 00:00: 00 Yes [id number] 1 tablet 2 TIMES DAILY 1 tablet 2 TIMES DAILY (route: oral) Med Classific ation: Endocrine metoprolol succinate ER 25 mg tablet,exte nded release 24 hr 02-04 00:00: 00 Yes [id number] Per instruc tions DAILY Per instructio ns DAILY (route: oral) Med Classific ation: Cardiovas cular Therapy Agents Aldactone 25 mg tablet 02-16 00:00: 00 Yes [id number] 25 mg DAILY 25 mg DAILY (route: [...] DRY CLEAN GAUZE, LEAVE OPEN TO AIR. PATIENT/BOLT MACHINE OPERATOR WILL PERFORM THIS TWICE DAILY BETWEEN NURSING [...] DRY CLEAN GAUZE, LEAVE OPEN TO AIR. PATIENT/BOLT MACHINE OPERATOR WILL PERFORM THIS TWICE DAILY BETWEEN NURSING [...] BLOCKAGE/LEAKAGE, HEAVY SEDIMENT. 1 - 3 PRN CUSTODIAL VISITS FOR CATHETER CHANGE(S) AND/OR TROUBLESHOOTING. [code = SKILLED NURSE TO INSTRUCT PATIENT/CAREGIVER ON CARE AND MANAGEMENT OF SUPRAPUBIC CATHETER. SKILLED NURSE FOR SUPRAPUBIC CATHETER INSERTION/MAINTENANCE UTILIZING 18 FR 10 ML BALLOON, CHANGE Q 4 WEEKS AND PRN FOR LEAKING OR MALFUNCTIONING. IRRIGATE SUPRAPUBIC CATHETER WITH 30-60CC NORMAL SALINE PRN BLOCKAGE/LEAKAGE, HEAVY SEDIMENT. 1 - 3 PRN CUSTODIAL VISITS FOR CATHETER CHANGE(S) AND/OR TROUBLESHOOTING.] Goal 2024-03-04 Patient Goal - TO FEEL BOBBY R Goal Provider Goal - A PLAN OF CARE WILL BE ESTABLISHED THAT MEETS PATIENT'S CUSTODIAL NEEDS AND INCLUDES PATIENT GOAL FOR HOME [...] End Date/Time Encounter Type Admission Type Attending [facility] Care Department Encounter ID Discharge Date Discharge Status Discharge Condition Discharge Reason Percent Goals Met 2024-02-05 00:00:00 2024-03-04 00:00:00 Outpatient [facility] [id number] 2024-03-04 00:00:00 DISCHARGE TO HOME OR SELF CARE INDEPENDEN T IN THE COMMUNITY NO LONGER HOMEBOUND ( ONLY) 47.62
--- OUTSIDE RECORDS SUMMARY | 2024-08-29 09:31 | XMS_ITS ---
Author Organization [facility] Address [address] [place] [address] Care Team Providers Care Director Integrated Name Role Phone Ricardo Breen MD Primary Care Provider Unavailab Sylvia Kirkpatrick Unavailable [phone] Prosper Henson Unavailable [phone] REASON FOR VISIT Painful nail(s) aggrevated by shoes and causing difficulty standing/walking. Medications Medication SIG (Take, Route, Frequency, Duration) Notes Start Date End Date Status Voltaren 1 % as directed Externally Active Encounters Encounter Location Date Provider Diagnosis [facility] [address] [place] [address] 02/05/2024 Prosper Henson Type 2 diabetes mellitus [...] Provider Name:Sylvia Hernandezclayton yu, 10/15/2024 02:45:00 PM, [address] [place] [address], [phone], Procedure Notes * Category Sub-Category Detail Notes [...] as necessary. Patient chooses, no pharmaceutical tx (23739) Keratoma Treatment Parring or Cutting o f Benign Hyperkeratotic Lesion(s) 94566 ( >4 Lesions) - The Benign hyperkeratotic lesions, as described above were pared, and/or cut utilizing a sterile #15 blade, tissue nippers, and/or dremel Progress Notes * Kaitlin BROWN MDOB:[birth year] (79 yo F)Acc No.[id number]:02/05/2024 Progress Note Patient:?Kaitlin BROWN Provider:?Prosper Henson DPM :1945???Age:78 Y???Sex:Female D ate:02/05/2024 Address:[address] [place] [address] [facility] Pcp:Ricardo Breen, MD Subjective: * Chief Complaints: [...] neuropathy, 1-5 Left foot, T5, T9.?Vascular: ?DP PULSES (B):? 1/4, B/L.?PT PULSES (B):? 1/4, B/L.?CAPILLARY FILL TIME:?3 secs. per digit, B/L.?EDEMA (C):? 3/4, B/L, Ankle(s).?TELANGECTASIA:?absent.?VARICOSITIES:?absent.?Dermatologic: ?SKIN FINDINGS:? Skin exam [...] as necessary. Patient chooses, no pharmaceutical tx (02571).?Keratoma Treatment:?Parring or Cutting of Benign Hyperkeratotic Lesion(s)?51376 ( >4 Lesions) - The Benign hyperkeratotic lesions, as described above were pared, and/or cut utilizing a sterile #15 blade, tissue nippers, and/or dremel.? * Procedure Codes:?03612 DEBRI DE NAIL, 6 OR MORE, Modifiers: XS , 30837 TRIM SKIN LESIONS, OVER 4, Modifiers: XS * Follow Up:?3 Months * Images: * The named appointment provid er may or may not be the originator of this progress note, and it is not deemed complete until electronically signed by the appointment provider. Sign off status: Pending * Provider:?Prosper Henson DPM Date:? 024 Generated for Jeny ball/Chance/Pallavi on:?08/29/2024 09:31 AM EST History and Physical Notes * [...] PULSES (B): 1/4, B/L PT PULSES (B): 09/12, B/L CAPILLARY FILL TIME: 3 secs. per digit, B/L EDEMA (C): /, B/L, Ankle(s) TELANGECTASIA: absent VARICOSITIES: absent Nails NAILS are: Elongated, overg rown, dystrophic, lytic, greater than 3mm thick, discolored and friable with crumbly malodorous subungual debris, with dull to no pain on palpation due to neuropathy, 1-5 Left foot, T5, T9
--- OUTSIDE RECORDS SUMMARY | 2024-08-29 09:31 | XMS_ITS ---
Author Organization [facility] Address [address] [facility] [place] [address] Care Team Providers Care Sales Correspondent Name Role Phone Ricardo Breen MD Primary Care Provider UnavailSylvia Iglesias Unavailable [phone] Allergies Allergen (clinical drug ingredient) Drug/Non Drug [...] Polyneuropathy due to type 2 diabetes mellitus (894541190) Type 2 diabetes mellitus with diabetic polyneuropathy (E11.42) Active confirmed Problem Polyneuropathy due to diabetes mellitus type I (315147580) Type 1 diabetes mellitus with diabetic polyneuropathy (E10.42) Active confirmed Vital Signs Height 5 ft 4 in in 07/16/2024 Weight 195 lbs 07/16/2024 BMI 33.47 kg/m2 07/16/2024 Blood pressure systolic 141 mm Hg 07/16/20 24 Blood pressure diastolic 52 mm Hg 024 Procedures Procedure Date Ordered Date Performed Result Body Sit e 86357-OQUMVAX NAIL, 6 OR MORE 07/16/2024 N/A 30712-UATL SKIN LESIONS, 2 TO 4 07/16/2024 N/A Encounters Encounter Location Date Provider Diagnosis [facility] [address] [address] 07/16/2024 Sylvia Hernandezaker Type 2 diabetes mellitus with diabetic polyneuropathy E11.42 and Tinea unguium B35.1 Assessments Encounter Date Diagnosis (ICD Code) Assessment Notes Treatment Notes Treatment Clinical Notes Section Notes 07/16/2024 Type 2 diabetes mellitus with diabetic polyneuropathy (ICD-10 - E11.42) 07/16/2024 Tinea unguium (ICD-10 - B35.1) Plan Of Treatment Pending Test Test Name Order Date 40893-OEZZWPC NAIL, 6 OR MORE 07/16/2024 17474-BUSJ SKIN LESIONS, 2 TO 4 07/16/20 24 Next Appt Details Follow Up: prn, Reason: Provider Name:Sylvia Zarate aimee, 10/15/2024 02:45:00 PM, [address] [place], [address], Procedure Notes * Category Sub-Category Detail Notes [...] use of a nail nipper and/or dremel-type terrazzo grinder, to a more viable healthy nail plate or bed tissue 6-10. Silver nitrate used for any petechial bleeding as necessary. Definitive antifungal treatment options have been reviewed and discussed with the patient. The patient chooses, no pharmaceutical tx - [address]60 Keratoma Treatment Parring or Cutting o f Benign Hyperkeratotic Lesion(s) (-56) 2-4 Lesions - The Benign hyperkeratotic lesions, as described in exam, were pared, and/or cut utilizing a sterile 15 blade, tissue nippers, and/or dremel - 06935 Progress Notes * Kaitlin BROWN MDOB:[birth year] (79 yo F)Acc No.[id number]:07/16/2024 Progress Note Patient:?Kaitlin Brown Provider:?Sylvia Nguyễn DPM :1945???Age:79 Y???Sex:Female D ate:07/16/2024 Address:[facility] [address] [id number] Pcp:Ricardo Breen MD Subjective: * Chief Complaints: [...] use of a nail nipper and/or dremel-type terrazzo grinder, to a more viable healthy nail plate or bed tissue 6-10. Silver nitrate used for any petechial bleeding as necessary. Definitive antifungal treatment options have been reviewed and discussed with the patient. The patient chooses, no pharmaceutical tx - 16059.?Keratoma Treatment:?Parring or Cutting of Benign Hyperkeratotic Lesion(s)?(-56) 2-4 Lesions - The Benign hyperkeratotic lesions, as described in exam, were pared, and/or cut utilizing a sterile 15 blade, tissue nippers, and/or dremel - 61401.? * Procedure Codes:?28325 DEBRI DE NAIL, 6 OR MORE, Modifiers: XS 11685 TRIM SKIN LESIONS, 2 TO 4, Modifiers: XS * Follow Up:?prn * Images: * Sign off status: Completed true * Provider:?Sylvia Nguyễn DPM Date:?1 09/15/2023 Generated for Jeny ball/Chance/eTransmitting on:?08/29/2024 09:30 AM EST History and Physical Notes * [...] Eye Exam:: no retin opathy Vascular DP PULSES (B): 09/12, B/L PT PULSES (B): 1/4, B/L CAPILLARY FILL TIME: 3 secs. per digit, B/L EDEMA (C): /4, B/L, Ankle(s) TELANGECTASIA: absent VARICOSITIES: absent Nails NAILS are: Elongated, overg rown, dystrophic, lytic, greater than 3mm thick, discolored and friable with crumbly malodorous subungual debris, 1-5 B/L
--- OUTSIDE RECORDS SUMMARY | 2024-08-29 09:31 | XMS_ITS ---
Author Organization [facility] Address [address] [facility] [address] Care Team Providers Care It Intern Name Role Phone Ricardo Breen MD Primary Care Provider Unavailab Sylvia Kirkpatrick Unavailable [phone] Prosper Henson Unavailable [phone] Allergies Allergen (clinical drug ingredient) Drug/Non Drug [...] 024 Encounters Encounter Location Date Provider Diagnosis [facility] [place] [address] [place] [address] 04/16/2024 Prosper Henson Type 2 diabetes mellitus [...] Reason: Provider Name:Sylvia yu, 10/15/2024 02:45:00 PM, [address] [place] [address], [phone], Procedure Notes * Category Sub-Category Detail Notes [...] as necessary. Patient chooses, no pharmaceutical tx (41439) Keratoma Treatment Parring or Cutting o f Benign Hyperkeratotic Lesion(s) 86090 ( >4 Lesions) - The Benign hyperkeratotic lesions, as described above were pared, and/or cut utilizing a sterile #15 blade, tissue nippers, and/or dremel Progress Notes * Kaitlin BROWN MDOB:[birth year] (78 yo F)Acc No.[id number]:04/16/2024 Progress Note Patient:?Kaitlin Brown Noel Provider:?Prosper Henson DPM :1945???Age:78 Y???Sex:Female D ate:04/16/2024 Address:[address] [place], [id number] Pcp:Ricardo Breen MD Subjective: * Chief Complaints: [...] as necessary. Patient chooses, no pharmaceutical tx (29526).?Keratoma Treatment:?Parring or Cutting of Benign Hyperkeratotic Lesion(s)?18104 ( >4 Lesions) - The Benign hyperkeratotic lesions, as described above were pared, and/or cut utilizing a sterile #15 blade, tissue nippers, and/or dremel.? * Procedure Codes:?77919 DEBRI DE NAIL, 6 OR MORE, Modifiers: XS 80740 TRIM SKIN LESIONS, OVER 4, Modifiers: XS * Follow Up:?3 Months * Images: * Sign off status: Completed true * Provider:?Prosper Henson DPM Date:? 024 Generated for Jeny ball/Chance/Pallavi on:?08/29/2024 09:30 AM EST History and Physical [...] no retin opathy Vascular DP PULSES (B): 1/4, B/L PT [...]
== END 2024-08-29 09:30 | disposition home or self-care (01) ==
LOC: HO.MAMMO 09:29
PROVIDERS: PCP Family Medicine; Visit Provider Family Medicine
DX: Z12.31 Encounter for screening mammogram for malignant neoplasm of breast (principal)
CPT/HCPCS: 77063; 77067

== ENCOUNTER → 2024-08-29 09:45 | Outpatient (BNV) | payer MEDICARE, OTHER, SELFPAY | PROVIDERS: PCP Family Medicine; Visit Provider Internal Medicine | DX: Z12.31 Encounter for screening mammogram for malignant neoplasm of breast (principal) | CPT/HCPCS: 77063; 77067 ==

== ENCOUNTER 2024-09-01 10:00 | Outpatient (RCR) | payer MEDICARE, OTHER, SELFPAY ==
[2024-08-21 13:13] VITALS: BMI 33.2
[2024-08-21 13:14] VITALS: BP 172/56; PULSE 57; RESP 18; TEMP 37.6; O2SAT 95
[2024-08-21] MEDS: SODIUM CHLORIDE 0.9% IV (13:45)
[2024-08-21] MEDS: GENTAMICIN SULFATE IV (13:45)
[2024-08-21 14:26] LABS: Creatinine Clr Calc Pharmacy 36.5; Estimated Glomerular Filt Rate 36
[2024-08-21] MEDS: Heparin Sodium,Porcine Flush 50 UNITS, 0.9 % Sodium Chloride Flush 5 ML IVFLUSH (14:56)
[2024-08-23 10:04] VITALS: BP 134/44; PULSE 55; RESP 18; TEMP 36.4; O2SAT 98
[2024-08-23] MEDS: SODIUM CHLORIDE 0.9% IV (10:09)
[2024-08-23] MEDS: GENTAMICIN SULFATE IV (10:09)
[2024-08-23] MEDS: Heparin Sodium,Porcine Flush 50 UNITS, 0.9 % Sodium Chloride Flush 5 ML IVFLUSH (11:40)
[2024-08-25 07:38] VITALS: BP 151/49; PULSE 58; RESP 20; TEMP 35.9; O2SAT 95
[2024-08-25 08:17] LABS: Creatinine Clr Calc Pharmacy 42.6; Estimated Glomerular Filt Rate 43
[2024-08-25] MEDS: Heparin Sodium,Porcine Flush 50 UNITS, 0.9 % Sodium Chloride Flush 5 ML IVFLUSH (10:02)
[2024-08-26 13:21] VITALS: BP 152/60; PULSE 59; RESP 20; TEMP 36.6; O2SAT 96
[2024-08-26] MEDS: Heparin Sodium,Porcine Flush 50 UNITS, 0.9 % Sodium Chloride Flush 5 ML IVFLUSH (14:51)
[2024-08-27 11:11] VITALS: BP 152/42; PULSE 58; RESP 16; TEMP 36.6; O2SAT 97
[2024-08-27] MEDS: Heparin Sodium,Porcine Flush 50 UNITS, 0.9 % Sodium Chloride Flush 5 ML IVFLUSH (12:17)
[2024-08-28 08:10] VITALS: BP 150/51; PULSE 61; RESP 20; TEMP 37.1; O2SAT 97
[2024-08-28 09:01] LABS: Estimated Glomerular Filt Rate 39
[2024-08-28] MEDS: Heparin Sodium,Porcine Flush 50 UNITS, 0.9 % Sodium Chloride Flush 5 ML IVFLUSH (10:52)
[2024-08-29 10:25] VITALS: BP 151/45; PULSE 55; RESP 18; TEMP 36.8; O2SAT 98
[2024-08-29 10:55] VITALS: BMI 33.2
[2024-08-29] MEDS: Heparin Sodium,Porcine Flush 50 UNITS, 0.9 % Sodium Chloride Flush 5 ML IVFLUSH (12:00)
[2024-08-30 10:00] VITALS: BP 164/50; PULSE 61; RESP 16; TEMP 36.6; O2SAT 97
[2024-08-31 11:14] VITALS: BP 162/50; PULSE 59; RESP 16; TEMP 36.3; O2SAT 96
[2024-08-31] MEDS: Heparin Sodium,Porcine Flush 50 UNITS, 0.9 % Sodium Chloride Flush 5 ML IVFLUSH (13:28)
[2024-09-01 09:57] VITALS: BP 143/44; PULSE 65; RESP 18; TEMP 36.7; O2SAT 95
== END 2024-09-01 13:30 | disposition home or self-care (01) ==
LOC: HO.INF 10:00
PROVIDERS: PCP Family Medicine; Visit Provider Urology
DX: N39.0 Urinary tract infection, site not specified (principal); N31.9 Neuromuscular dysfunction of bladder, unspecified
CPT/HCPCS: 36415; 82565; 96365; J1580; J1642

== ENCOUNTER 2024-09-07 11:36 | Outpatient (REF) | payer MEDICARE, OTHER, SELFPAY ==
--- OUTSIDE RECORDS SUMMARY | 2024-09-07 11:39 | XMS_ITS ---
[facility] Address [address] [place] [address] Care Team Providers Care Hydraulics Engineer Name Role Phone Ricardo Breen MD Primary Care Provider UnavailSylvia Iglesias Unavailable [phone] Allergies Allergen (clinical drug ingredient) Drug/Non Drug [...] Polyneuropathy due to type 2 diabetes mellitus (561596022) Type 2 diabetes mellitus with diabetic polyneuropathy (E11.42) Active confirmed Problem Polyneuropathy due to diabetes mellitus type I (816414409) Type 1 diabetes mellitus with diabetic polyneuropathy (E10.42) Active confirmed Vital Signs Height 5 ft 4 in in 07/16/2024 Weight 195 lbs 07/16/2024 BMI 33.47 kg/m2 07/16/2024 Blood pressure systolic 141 mm Hg 07/16/20 24 Blood pressure diastolic 52 mm Hg 024 Procedures Procedure Date Ordered Date Performed Result Body Sit e 10275-LFBAPUG NAIL, 6 OR MORE 07/16/2024 N/A 50212-MQSZ SKIN LESIONS, 2 TO 4 07/16/2024 N/A Encounters Encounter Location Date Provider Diagnosis [facility] [address] [address] 07/16/2024 Sylvia Hernandezaker Type 2 diabetes mellitus with diabetic polyneuropathy E11.42 and Tinea unguium B35.1 Assessments Encounter Date Diagnosis (ICD Code) Assessment Notes Treatment Notes Treatment Clinical Notes Section Notes 07/16/2024 Type 2 diabetes mellitus with diabetic polyneuropathy (ICD-10 - E11.42) 07/16/2024 Tinea unguium (ICD-10 - B35.1) Plan Of Treatment Pending Test Test Name Order Date 39858-IETEREV NAIL, 6 OR MORE 07/16/2024 41773-PFXA SKIN LESIONS, 2 TO 4 07/16/20 24 Next Appt Details Follow Up: prn, Reason: Provider Name:Sylvia Zarate aimee, 10/15/2024 02:45:00 PM, [address] [place], [address], Procedure Notes * Category Sub-Category Detail Notes [...] use of a nail nipper and/or dremel-type tooth grinder, to a more viable healthy nail plate or bed tissue 6-10. Silver nitrate used for any petechial bleeding as necessary. Definitive antifungal treatment options have been reviewed and discussed with the patient. The patient chooses, no pharmaceutical tx - [address]16 Keratoma Treatment Parring or Cutting o f Benign Hyperkeratotic Lesion(s) (-56) 2-4 Lesions - The Benign hyperkeratotic lesions, as described in exam, were pared, and/or cut utilizing a sterile 15 blade, tissue nippers, and/or dremel - 86791 Progress Notes * Kaitlin BROWN MDOB:[birth year] (79 yo F)Acc No.[id number]:07/16/2024 Progress Note Patient:?Kaitlin Brown Provider:?Sylvia Nguyễn DPM :1945???Age:79 Y???Sex:Female D ate:07/16/2024 Address:[facility] [id number] Pcp:Ricardo Breen MD Subjective: * Chief Complaints: [...] use of a nail nipper and/or dremel-type tooth grinder, to a more viable healthy nail plate or bed tissue 6-10. Silver nitrate used for any petechial bleeding as necessary. Definitive antifungal treatment options have been reviewed and discussed with the patient. The patient chooses, no pharmaceutical tx - 83267.?Keratoma Treatment:?Parring or Cutting of Benign Hyperkeratotic Lesion(s)?(-56) 2-4 Lesions - The Benign hyperkeratotic lesions, as described in exam, were pared, and/or cut utilizing a sterile 15 blade, tissue nippers, and/or dremel - 99761.? * Procedure Codes:?16546 DEBRI DE NAIL, 6 OR MORE, Modifiers: XS 16829 TRIM SKIN LESIONS, 2 TO 4, Modifiers: XS * Follow Up:?prn * Images: * Sign off status: Completed true * Provider:?Sylvia Nguyễn DPM Date:?1 09/15/2023 Generated for Jeny ball/Chance/eTransmitting on:?09/07/2024 11:39 AM EST History and Physical Notes * [...]
--- OUTSIDE RECORDS SUMMARY | 2024-09-07 11:40 | XMS_ITS ---
Author Organization [facility] Address [address] [place] [address] Care Team Providers Care Wedding Designer Name Role Phone Ricardo Breen MD Primary Care Provider Unavailab Sylvia Kirkpatrick Unavailable [phone] Prosper Henson Unavailable [phone] REASON FOR VISIT Painful nail(s) aggrevated by shoes and causing difficulty standing/walking. Medications Medication SIG (Take, Route, Frequency, Duration) Notes Start Date End Date Status Voltaren 1 % as directed Externally Active Encounters Encounter Location Date Provider Diagnosis [facility] [address] [place] [address] 02/05/2024 Prosper Henson Type 2 diabetes mellitus [...] Provider Name:Sylvia Hernandezclayton yu, 10/15/2024 02:45:00 PM, [address] [place] [address], [phone], Procedure Notes * Category Sub-Category Detail Notes [...] as necessary. Patient chooses, no pharmaceutical tx (68748) Keratoma Treatment Parring or Cutting o f Benign Hyperkeratotic Lesion(s) 68791 ( >4 Lesions) - The Benign hyperkeratotic lesions, as described above were pared, and/or cut utilizing a sterile #15 blade, tissue nippers, and/or dremel Progress Notes * Kaitlin BROWN MDOB:[birth year] (79 yo F)Acc No.[id number]:02/05/2024 Progress Note Patient:?Kaitlin BROWN Provider:?Prosper Henson DPM :1945???Age:78 Y???Sex:Female D ate:02/05/2024 Address:[address] [place] [address] [facility] Pcp:Ricardo Breen, MD Subjective: * Chief Complaints: [...] as necessary. Patient chooses, no pharmaceutical tx (84655).?Keratoma Treatment:?Parring or Cutting of Benign Hyperkeratotic Lesion(s)?78487 ( >4 Lesions) - The Benign hyperkeratotic lesions, as described above were pared, and/or cut utilizing a sterile #15 blade, tissue nippers, and/or dremel.? * Procedure Codes:?30311 DEBRI DE NAIL, 6 OR MORE, Modifiers: XS , 89097 TRIM SKIN LESIONS, OVER 4, Modifiers: XS * Follow Up:?3 Months * Images: * The named appointment provid er may or may not be the originator of this progress note, and it is not deemed complete until electronically signed by the appointment provider. Sign off status: Pending * Provider:?Prosper Henson DPM Date:? 024 Generated for Jeny ball/Chance/Pallavi on:?09/07/2024 11:40 AM EST History and Physical Notes * [...]
--- OUTSIDE RECORDS SUMMARY | 2024-09-07 11:40 | XMS_ITS | Continuity of Care Document ---
Author Organization [facility] [address] [place] [address] Phone [phone] Social History Type Date Description Comments Sex [...]
--- OUTSIDE RECORDS SUMMARY | 2024-09-07 11:40 | XMS_ITS | Patient Health Record ---
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 Name Role Phone Jamshid RAUSCH, Ricardo Primary Care Provider Unavailab Sylvia Kirkpatrick Unavailable [phone] Prosper Henson Unavailable [phone] Allergies Allergen (clinical drug ingredient) Drug/Non Drug [...] Status Risk Notes Problem Acquired hallux valgus (17838196) Hallux valgus (acquired), left foot (M20.12) Active confirmed Problem Polyneuropathy due to diabetes mellitus type I (196517460) Type 1 diabetes mellitus with diabetic polyneuropathy (E10.42) Active confirmed Problem Polyneuropathy due to type 2 diabetes mellitus (560567010) Type 2 diabetes mellitus with diabetic polyneuropathy (E11.42) Active confirmed Problem Localized, primary osteoarthritis of the ankle and/or foot (109820353) Primary osteoarthritis, left ankle and foot (M19.072) Active confirmed Problem Acquired hallux rigidus (6618376) Hallux rigidus, left foot (M20.22) Active confirmed Problem Non-pressure chronic ulcer of other part of left foot limited to breakdown of skin (L97.521) Active confirmed Problem Non-pressure chronic ulcer of other part of right foot limited to breakdown of skin (L97.511) Active confirmed Problem Polyneuropathy due to type 2 diabetes mellitus (180920946) Type 2 diabetes mellitus with diabetic polyneuropathy (E11.42) Active confirmed Problem Polyneuropathy due to diabetes mellitus type I (418291090) Type 1 diabetes mellitus with diabetic polyneuropathy (E10.42) Active confirmed Vital Signs Blood pressure diastolic 52 mm Hg 07/16/2024 Height 5 ft 4 in in 07/16/2024 Blood pressure systolic 141 mm Hg 07/16/2024 Weight 195 lbs 07/16/2024 BMI 33.47 kg/m2 07/16/2024 Procedures Procedure Date Ordered Date Performed Result Body Sit e 45860-FFSUASF NAIL, 6 OR MORE 07/16/2024 N/A 78454-QOCJ SKIN LESIONS, 2 TO 4 07/16/2024 N/A Encounters Encounter Location Date Provider Diagnosis [facility] [address] 11/06/2023 ProsperMason Type 2 diabetes mellitus with diabetic polyneuropathy E11.42 ; Tinea unguium B35.1 ; Pain in left foot M79.672 ; Primary osteoarthritis, left ankle and foot M19.072 ; Pain in left toe(s) M79.675 ; Pain in right toe(s) M79.674 ; Hallux rigidus, left foot M20.22 ; Hallux valgus (acquired), left foot M20.12 and Localized edema R60.0 [facility] [address] [address] 04/16/2024 Prosper Henson Type 2 diabetes mellitus with diabetic polyneuropathy E11.42 ; Tinea unguium B35.1 ; Pain in left foot M79.672 ; Primary osteoarthritis, left ankle and foot M19.072 ; Pain in left toe(s) M79.675 ; Pain in right toe(s) M79.674 ; Hallux rigidus, left foot M20.22 ; Hallux valgus (acquired), left foot M20.12 and Localized edema R60.[address] [address] 07/16/2024 Sylvia Nguyễn Type 2 diabetes mellitus with diabetic polyneuropathy E11.42 and Tinea unguium B35.[address] [address] 09/24/[address] [address] 10/08/[address] [address] 01/31/2024 [facility] Assessments Encounter Date Diagnosis (ICD Code) Assessment [...] X ray : Foot, left 3V 03/30/2020 73705-OILWTXY NAIL, 6 OR MORE 07/16/2024 43350-DNSHEMW NAIL, 1-5 05/05/2018 53371-BIQNWCA NAIL, 1-5 07/21/2018 98566-ZUXUTGZ NAIL, 1-5 10/13/2018 87250, J0702- INJECT or DRAIN, JOINT/BUR SA 05/05/2018 27266-LSWV SKIN LESIONS, OVER 4 05/05/20 18 72086-KRXW SKIN LESIONS, OVER 4 07/21/20 18 23446-XARZ SKIN LESIONS, OVER 4 01/13/20 19 41007-WJVI SKIN LESIONS, OVER 4 04/13/20 19 74566-TNQY SKIN LESIONS, OVER 4 10/13/19 19 30605-LPIQ SKIN LESIONS, OVER 4 12/06/19 21 82022-EKEV SKIN LESIONS, OVER 4 05/08/20 21 25274-EDRZ SKIN LESIONS, OVER 4 10/18/19 22 21749-INSY SKIN LESIONS, OVER 4 08/01/20 20 14884-MAHJ SKIN LESIONS, OVER 4 03/30/20 20 60675-ADRP SKIN LESIONS, OVER 4 07/13/20 19 39763-MTOD SKIN LESIONS, OVER 4 10/12/19 20 95072-LVSH SKIN LESIONS, 2 TO 4 07/16/20 24 53495-UWRD SKIN LESIONS, 2 TO 4 02/20/20 18 31815, D6072-KUKWI/INJECT, JOINT/BURSA 0 10/13/2018 P3060-MUGDOAIY DYSTROPHIC NAILS ANY # G8574-APSZFCQT DYSTROPHIC NAILS ANY # J6869-GPLULEJZ DYSTROPHIC NAILS ANY # G4681-MJRPDXSQ DYSTROPHIC NAILS ANY # A1822-GTTTUTXV DYSTROPHIC NAILS ANY # N5122-LOWZUMUH DYSTROPHIC NAILS ANY # N5143-QCSSPOCU DYSTROPHIC NAILS ANY # J8861-SCTVCVSJ DYSTROPHIC NAILS ANY # Q3088-EWRKWCAU DYSTROPHIC NAILS ANY # 51499- Nail Unit Biopsy 02/19/2018 Next Appt Details Provider Name:Sylvia Zarate aimee, 10/15/2024 02:45:00 PM, [address] [facility], [place], [address], Insurance Providers Payer Name Payer Address Payer Phone Subscriber Number Group Number Insured Name Patient Relationship to Insured Coverage Start Date Coverage End Date Medicare National [employer] [address] [place] [address] [id number] Kaitlin Ortiz Self - patient is the insured [address] [place] [address] [address] [place], [place] [id number] [phone] [id number] Kaitlin Ortiz Self - patient is the [...]
--- OUTSIDE RECORDS SUMMARY | 2024-09-07 11:40 | XMS_ITS ---
Author Organization [facility] Address [address] [facility] [place] [address] Care Team Providers Care [employer] Name Role Phone Ricardo Breen MD Primary Care Provider Unavailab Sylvia Kirkpatrick Unavailable [phone] Prosper Henson Unavailable [phone] Allergies Allergen (clinical drug ingredient) Drug/Non Drug [...] 024 Encounters Encounter Location Date Provider Diagnosis [facility] [place] [address] [place] [address] 04/16/2024 Prosper Henson Type 2 diabetes mellitus [...] Reason: Provider Name:Sylvia yu, 10/15/2024 02:45:00 PM, [address] [place] [address], [phone], Procedure Notes * Category Sub-Category Detail Notes [...] as necessary. Patient chooses, no pharmaceutical tx (53510) Keratoma Treatment Parring or Cutting o f Benign Hyperkeratotic Lesion(s) 97013 ( >4 Lesions) - The Benign hyperkeratotic lesions, as described above were pared, and/or cut utilizing a sterile #15 blade, tissue nippers, and/or dremel Progress Notes * Kaitlin BROWN MDOB:[birth year] (78 yo F)Acc No.[id number]:04/16/2024 Progress Note Patient:?Kaitlin Brown Noel Provider:?Prosper Henson DPM :1945???Age:78 Y???Sex:Female D ate:04/16/2024 Address:[address] [place], [place] Pcp:Ricardo Breen MD Subjective: * Chief Complaints: [...] as necessary. Patient chooses, no pharmaceutical tx (98487).?Keratoma Treatment:?Parring or Cutting of Benign Hyperkeratotic Lesion(s)?22496 ( >4 Lesions) - The Benign hyperkeratotic lesions, as described above were pared, and/or cut utilizing a sterile #15 blade, tissue nippers, and/or dremel.? * Procedure Codes:?83358 DEBRI DE NAIL, 6 OR MORE, Modifiers: XS 01196 TRIM SKIN LESIONS, OVER 4, Modifiers: XS * Follow Up:?3 Months * Images: * Sign off status: Completed true * Provider:?Prosper Henson DPM Date:? 024 Generated for Jeny ball/Chance/Pallavi on:?09/07/2024 11:39 AM EST History and Physical [...]
--- OUTSIDE RECORDS SUMMARY | 2024-09-07 11:40 | XMS_ITS | Clinical Summary ---
Author Organization Unknown Care Team Providers Care Jute Bag Clipper Name Role Phone MELANIA RAUSCH, ELLEN Unavailable Unavailable TOMY MC, JOSE Unavailable Unavailable Payers Payer Name Policy Type Policy Number Effective Date Expira tion Date MEDICARE - [place] - PDGM [id number] Problems Condition Name Condition Details Condition Category Status Onset Date Resolution Date Last Treatment Date Treating Clinician Comments ENCNTR FOR SURGICAL AFTCR FOLLOWING SURGERY ON THE CIRC SYS Active 02-04 00:00: 00 TYPE 2 DIABETES MELLITUS WITHOUT COMPLICATION S Active 02-04 00:00: 00 PAROXYSMAL ATRIAL FIBRILLATION Active 02-04 00:00: 00 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 Active 02-04 00:00: [...] 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 Active 02-04 00:00: 00 RETIREMENT (CURRENT) USE OF ASPIRIN Active 02-04 00:00: 00 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) USE OF ORAL HYPOGLYCEMIC DRUGS Active [...] 2-17 00:00: 00 01-20 23:59 :00 No [id number] 1 tablet BEDTIME 1 tablet BEDTIME (route: oral) Med Classific ation: Cardiovas cular Therapy Agents pantoprazol e 40 mg tablet,sonia yed release 2- 00:00: 00 01-23 00:00 :00 No [id number] 1 tablet DAILY 1 tablet DAILY (route: oral) Med Classific ation: Gastroint estinal Therapy Agents nitrofurant oin monohydrate /macrocryst als 100 mg capsule 2-13 00:00: 00 11-01 23:59 :00 No [id number] 1 capsule TWICE A DAY FOR UTI FOR 10 DAYS 1 capsule TWICE A DAY FOR UTI FOR 10 DAYS (route: oral) Med Classific ation: Genitouri nary Therapy metformin 1,000 mg tablet - 00:00: 00 01-20 23:59 :00 No [id number] 1 tablet TWICE A DAY DIRECTED 1 tablet TWICE A DAY DIRECTED (route: oral) Med Classific ation: Endocrine amlodipine 10 mg tablet 11-15 00:00: 00 01-20 23:59 :00 No [id number] 1 tablet DAILY 1 tablet DAILY (route: oral) Med Classific ation: Cardiovas cular Therapy Agents ascorbic acid (vitamin C) 1,000 mg capsule 11-15 00:00: 00 01-20 23:59 :00 No [id number] 1 capsule DAILY 1 capsule DAILY (route: oral) Med Classific ation: Electroly te Balance-N utritiona l Products Aspirin Childrens 81 mg chewable tablet 11-15 00:00: 00 01-20 23:59 :00 No [id number] 1 tablet DAILY 1 tablet DAILY (route: oral) Med Classific ation: Hematolog ical Agents carvedilol 25 mg tablet - 00:00: 00 01-20 23:59 :00 No [id number] 1 tablet 2 TIMES DAILY 1 tablet 2 TIMES DAILY (route: oral) Med Classific ation: Cardiovas cular Therapy Agents citalopram 20 mg tablet - 00:00: 00 01-20 23:59 :00 No [id number] 1 tablet DAILY 1 tablet DAILY (route: oral) Med Classific ation: Central Nervous System Agents cyclobenzap rine 5 mg tablet 11-15 00:00: 00 01-20 23:59 :00 No [id number] 1 tablet BEDTIME 1 tablet BEDTIME (route: oral) Med Classific ation: Locomotor System duloxetine 60 mg capsule,del ayed release 11-15 00:00: 00 01-20 23:59 :00 No [id number] 1 capsule DAILY 1 capsule DAILY (route: oral) Med Classific ation: Central Nervous System Agents famotidine 40 mg tablet 11-15 00:00: 00 01-20 23:59 :00 No [id number] 1 tablet BEDTIME 1 tablet BEDTIME (route: oral) Med Classific ation: Gastroint estinal Therapy Agents ferrous sulfate 325 mg (65 mg iron) tablet 11-15 00:00: 00 01-20 23:59 :00 No [id number] 1 tablet DAILY 1 tablet DAILY (route: oral) Med Classific ation: Electroly te Balance-N utritiona l Products furosemide 40 mg tablet 11-15 00:00: 00 12-24 23:59 :00 No [id number] 1 tablet DAILY 1 tablet DAILY (route: oral) Med Classific ation: Cardiovas cular Therapy Agents hydralazine 25 mg tablet 11-15 00:00: 00 12-24 23:59 :00 No [id number] 1 tablet 3 TIMES DAILY 1 tablet 3 TIMES DAILY (route: oral) Med Classific ation: Cardiovas cular Therapy Agents Imbruvica 420 mg tablet 11-15 00:00: 00 01-20 23:59 :00 No [id number] 1 tablet DAILY 1 tablet DAILY (route: oral) Med Classific ation: Antineopl astics Imbruvica 420 mg tablet 11-15 00:00: 00 12-24 00:00 :00 No [id number] 1 tablet DAILY 1 tablet DAILY (route: oral) Med Classific ation: Antineopl astics Januvia 100 mg tablet 11-15 00:00: 00 12-24 23:59 :00 No [id number] 1 tablet DAILY 1 tablet DAILY (route: oral) Med Classific ation: Endocrine pregabalin 150 mg capsule 09 00:00: 00 01-20 23:59 :00 No [id number] 1 capsule 2 TIMES DAILY 1 capsule 2 TIMES DAILY (route: oral) Med Classific ation: Central Nervous System Agents Senna Lax 8.6 mg tablet 11-15 00:00: 00 01-20 23:59 :00 No [id number] 2 tablet BEDTIME 2 tablet BEDTIME (route: oral) Med Classific ation: Gastroint estinal Therapy Agents solifenacin 5 mg tablet 11-15 00:00: 00 01-23 00:00 :00 No [id number] 1 tablet DAILY 1 tablet DAILY (route: oral) Med Classific ation: Genitouri nary Therapy spironolact one 25 mg tablet 11-15 00:00: 00 01-20 23:59 :00 No [id number] 1 tablet DAILY 1 tablet DAILY (route: oral) Med Classific ation: Cardiovas cular Therapy Agents sulindac 150 mg tablet 11-15 00:00: 00 01-23 00:00 :00 No [id number] 1 tablet 2 TIMES DAILY 1 tablet 2 TIMES DAILY (route: oral) Med Classific ation: Analgesic , Anti-infl ammatory or Antipyret ic nitrofurant oin macrocrysta l 100 mg capsule 3-24 00:00: 00 12-24 23:59 :00 No [id number] 1 capsule 2 TIMES DAILY 1 capsule 2 TIMES DAILY (route: oral) Med Classific ation: Genitouri nary Therapy Macrobid 100 mg capsule 4-10 00:00: 00 12-24 23:59 :00 No [id number] 100 mg 2 TIMES DAILY 100 mg 2 TIMES DAILY (route: oral) Med Classific ation: Genitouri nary Therapy cefpodoxime 100 mg tablet 4-16 00:00: 00 12-25 23:59 :00 No [id number] 1 tablet 2 TIMES DAILY 1 tablet 2 TIMES DAILY (route: oral) Med Classific ation: Anti-Infe ctive Agents Citracal-D3 Maximum Plus 325 mg-12.5 mcg-2.75 mg tablet 12-24 00:00: 00 01-20 23:59 :00 No [id number] 1 tablet EVERY AM 1 tablet EVERY AM (route: oral) Med Classific ation: Electroly te Balance-N utritiona l Products magnesium oxide 500 mg capsule 12-24 00:00: 00 01-23 00:00 :00 No [id number] 1 capsule EVERY PM 1 capsule EVERY PM (route: oral) Med Classific ation: Electroly te Balance-N utritiona l Products Multiple Vitamins tablet 12-24 00:00: 00 01-20 23:59 :00 No [id number] 1 tablet EVERY AM 1 tablet EVERY AM (route: oral) Med Classific ation: Electroly te Balance-N utritiona l Products acetaminoph en 325 mg tablet 01-23 00:00: 00 01-20 23:59 :00 No [id number] 2 tablet EVERY 6 HOURS 2 tablet EVERY 6 HOURS (route: oral) Med Classific ation: Analgesic , Anti-infl ammatory or Antipyret ic coenzyme Q10 100 mg capsule 01-23 00:00: 00 01-20 23:59 :00 No [id number] 1 capsule BEDTIME 1 capsule BEDTIME (route: oral) Med Classific ation: Alternati ve Therapy docusate sodium 100 mg capsule 01-22 00:00: 00 01-20 23:59 :00 No [id number] 1 capsule 2 TIMES DAILY 1 capsule 2 TIMES DAILY (route: oral) Med Classific ation: Gastroint estinal Therapy Agents enoxaparin 40 mg/0.4 mL subcutaneou s syringe 01-23 00:00: 00 02-07 23:59 :00 No [id number] 0.4 mL DAILY 0.4 mL DAILY (route: subcutaneo us) Med Classific ation: Hematolog ical Agents furosemide 20 mg tablet 01-22 00:00: 00 01-20 23:59 :00 No [id number] 1 tablet DAILY 1 tablet DAILY (route: oral) Med Classific ation: Cardiovas cular Therapy Agents magnesium oxide 400 mg (241.3 mg magnesium) tablet 01-23 00:00: 00 01-20 23:59 :00 No [id number] 1 tablet BEDTIME 1 tablet BEDTIME (route: oral) Med Classific ation: Electroly te Balance-N utritiona l Products omeprazole 20 mg tablet,sonia yed release 01-22 00:00: 00 01-20 23:59 :00 No [id number] 1 tablet DAILY 1 tablet DAILY (route: oral) Med Classific ation: Gastroint estinal Therapy Agents oxycodone 5 mg tablet 01-22 00:00: 00 01-20 23:59 :00 No [id number] 1 tablet EVERY 4 HOURS 1 tablet EVERY 4 HOURS (route: oral) Med Classific ation: Analgesic , Anti-infl ammatory or Antipyret ic oxycodone ER 10 mg tablet,vanda h resistant,e xtended release 12 hr 01-23 00:00: 00 01-20 23:59 :00 No [id number] 1 tablet EVERY 12 HOURS 1 tablet EVERY 12 HOURS (route: oral) Med Classific ation: Analgesic , Anti-infl ammatory or Antipyret ic polyethylen e glycol 3350 17 gram/dose oral powder 01-22 00:00: 00 01-20 23:59 :00 No [id number] 17 gram DAILY 17 gram DAILY (route: oral) Med Classific ation: Gastroint estinal Therapy Agents fluconazole 150 mg tablet 01-28 00:00: 00 01-20 23:59 :00 No [id number] 1 tablet DIRECTED 1 tablet DIRECTED (route: oral) Med Classific ation: Anti-Infe ctive Agents fluconazole 150 mg tablet 01-16 00:00: 00 02-04 23:59 :00 No [id number] Per instruc tions EVERY 3 DAYS FOR YEAST INFECTION FOR 6 DAYS Per instructio ns EVERY 3 DAYS FOR YEAST INFECTION FOR 6 DAYS (route: oral) Med Classific ation: Anti-Infe ctive Agents duloxetine 60 mg capsule,del ayed release 01-08 00:00: 00 Yes [id number] Per instruc tions EVERY DAY Per instructio ns EVERY DAY (route: oral) Med Classific ation: Central Nervous System Agents pantoprazol e 40 mg tablet,sonia yed release 01-07 00:00: 00 Yes [id number] Per instruc tions TWICE A DAY Per instructio ns TWICE A DAY (route: oral) Med Classific ation: Gastroint estinal Therapy Agents amlodipine 10 mg tablet 01-05 00:00: 00 02-04 23:59 :00 No [id number] Per instruc tions EVERY DAY Per instructio ns EVERY DAY (route: oral) Med Classific ation: Cardiovas cular Therapy Agents metformin 1,000 mg tablet 01-04 00:00: 00 02-04 23:59 :00 No [id number] Per instruc tions TWICE A DAY DIRECTED Per instructio ns TWICE A DAY DIRECTED (route: oral) Med Classific ation: Endocrine pregabalin 150 mg capsule 12-23 00:00: 00 Yes [id number] Per instruc tions 2 (TWO) TIMES A DAY Per instructio ns 2 (TWO) TIMES A DAY (route: oral) Med Classific ation: Central Nervous System Agents acetaminoph en 325 mg tablet 02-04 00:00: 00 Yes [id number] 1 tablet EVERY 6 HOURS 1 tablet EVERY 6 HOURS (route: oral) Med Classific ation: Analgesic , Anti-infl ammatory or Antipyret ic amiodarone 200 mg tablet 02-04 00:00: 00 02-12 23:59 :00 No [id number] 1 tablet 2 TIMES DAILY 1 tablet 2 TIMES DAILY (route: oral) Med Classific ation: Cardiovas cular Therapy Agents amlodipine 5 mg tablet 02-04 00:00: 00 Yes [id number] 1 tablet DAILY 1 tablet DAILY (route: oral) Med Classific ation: Cardiovas cular Therapy Agents ascorbic acid (vitamin C) 500 mg tablet 02-04 00:00: 00 Yes [id number] 1 tablet 2 TIMES DAILY 1 tablet 2 TIMES DAILY (route: oral) Med Classific ation: Electroly te Balance-N utritiona l Products aspirin 81 mg tablet,sonia yed release 02-04 00:00: 00 Yes [id number] 1 tablet DAILY 1 tablet DAILY (route: oral) Med Classific ation: Hematolog ical Agents atorvastati n 80 mg tablet 02-04 00:00: 00 Yes [id number] 1 tablet DIRECTED 1 tablet DIRECTED (route: oral) Med Classific ation: Cardiovas cular Therapy Agents cholecalcif tiera (vitamin D3) 10 mcg (400 unit) capsule 02-04 00:00: 00 Yes [id number] 1 capsule DAILY 1 capsule DAILY (route: oral) Med Classific ation: Electroly te Balance-N utritiona l Products citalopram 20 mg tablet 02-04 00:00: 00 Yes [id number] 1 tablet DAILY 1 tablet DAILY (route: oral) Med Classific ation: Central Nervous System Agents furosemide 40 mg tablet 02-04 00:00: 00 02-12 23:59 :00 No [id number] 1 tablet 2 TIMES DAILY 1 tablet 2 TIMES DAILY (route: oral) Med Classific ation: Cardiovas cular Therapy Agents Humalog KwikPen (U-100) Insulin 100 unit/mL subcutaneou s 02-04 00:00: 00 Yes [id number] Per instruc tions DIRECTED Per instructio ns DIRECTED (route: subcutaneo us) Med Classific ation: Endocrine Imbruvica 140 mg tablet 02-04 00:00: 00 Yes [id number] 1 tablet DAILY 1 tablet DAILY (route: oral) Med Classific ation: Antineopl astics insulin glargine (U-100) 100 unit/mL (3 mL) subcutaneou s pen 02-04 00:00: 00 Yes [id number] 19 unit DIRECTED 19 unit DIRECTED (route: subcutaneo us) Med Classific ation: Endocrine insulin lispro (U-100) 100 unit/mL subcutaneou s pen 02-04 00:00: 00 Yes [id number] 8 unit DIRECTED 8 unit DIRECTED (route: subcutaneo us) Med Classific ation: Endocrine metformin 500 mg tablet 02-04 00:00: 00 Yes [id number] 1 tablet 2 TIMES DAILY 1 tablet 2 TIMES DAILY (route: oral) Med Classific ation: Endocrine metoprolol succinate ER 25 mg tablet,exte nded release 24 hr 02-04 00:00: 00 Yes [id number] Per instruc tions DAILY Per instructio ns DAILY (route: oral) Med Classific ation: Cardiovas cular Therapy Agents Aldactone 25 mg tablet 02-16 00:00: 00 Yes [id number] 25 mg DAILY 25 mg DAILY (route: [...] DRY CLEAN GAUZE, LEAVE OPEN TO AIR. PATIENT/DOCTOR OF NAPRAPATHIC MEDICINE WILL PERFORM THIS TWICE DAILY BETWEEN NURSING [...] DRY CLEAN GAUZE, LEAVE OPEN TO AIR. PATIENT/DOCTOR OF NAPRAPATHIC MEDICINE WILL PERFORM THIS TWICE DAILY BETWEEN NURSING [...] BLOCKAGE/LEAKAGE, HEAVY SEDIMENT. 1 - 3 PRN [facility] VISITS FOR CATHETER CHANGE(S) AND/OR TROUBLESHOOTING. [code = SKILLED NURSE TO INSTRUCT PATIENT/CAREGIVER ON CARE AND MANAGEMENT OF SUPRAPUBIC CATHETER. SKILLED NURSE FOR SUPRAPUBIC CATHETER INSERTION/MAINTENANCE UTILIZING 18 FR 10 ML BALLOON, CHANGE Q 4 WEEKS AND PRN FOR LEAKING OR MALFUNCTIONING. IRRIGATE SUPRAPUBIC CATHETER WITH 30-60CC NORMAL SALINE PRN BLOCKAGE/LEAKAGE, HEAVY SEDIMENT. 1 - 3 PRN [facility] VISITS FOR CATHETER CHANGE(S) AND/OR TROUBLESHOOTING.] Goal 2024-03-04 Patient Goal - TO FEEL BOBBY R Goal Provider Goal - A PLAN OF CARE WILL BE ESTABLISHED THAT MEETS PATIENT'S [facility] NEEDS AND INCLUDES PATIENT GOAL FOR HOME [...] End Date/Time Encounter Type Admission Type [facility]ending [facility] Care Department Encounter ID Discharge Date Discharge Status Discharge Condition Discharge Reason Percent Goals Met 2024-02-05 00:00:00 2024-03-04 00:00:00 Outpatient JOSE ROSA [facility] [id number] 2024-03-04 00:00:00 DISCHARGE TO HOME OR SELF CARE INDEPENDEN T IN THE COMMUNITY NO LONGER HOMEBOUND ( ONLY) 47.62
--- OUTSIDE RECORDS SUMMARY | 2024-09-07 11:40 | XMS_ITS | Clinical Summary ---
Author Organization Unknown Care Team Providers Care Anthropology Department Chair Name Role Phone MELANIA RAUSCH, ELLEN Unavailable Unavailable TOMY MC, JOSE Unavailable Unavailable Payers Payer Name Policy Type Policy Number Effective Date Expira tion Date MEDICARE - NGS MA/RI - PDGM [id number] Problems Condition Name Condition Details Condition Category Status Onset Date Resolution Date Last Treatment Date Treating Clinician Comments ENCNTR FOR SURGICAL AFTCR FOLLOWING SURGERY ON THE CIRC SYS Active 02-04 00:00: 00 TYPE 2 DIABETES MELLITUS WITHOUT COMPLICATION S Active 02-04 00:00: 00 PAROXYSMAL ATRIAL FIBRILLATION Active 02-04 00:00: 00 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 Active 02-04 00:00: 00 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 Active 02-04 00:00: 00 MALIGNANT NEOPLASM OF UNSP SITE OF UNSPECIFIED FEMALE BREAST Active 02-04 00:00: 00 ANEMIA IN NEOPLASTIC DISEASE Active 02-04 00:00: 00 ATHSCL HEART DISEASE OF [place] CORONARY ARTERY W/O ANG PCTRS Active 02-04 [...] 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 Active 02-04 00:00: 00 SKILLED NURSING (CURRENT) USE OF ASPIRIN Active 02-04 00:00: 00 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 SUPERVISOR (CURRENT) USE OF ORAL HYPOGLYCEMIC DRUGS Active [...] 2-17 00:00: 00 01-20 23:59 :00 No [id number] 1 tablet BEDTIME 1 tablet BEDTIME (route: oral) Med Classific ation: Cardiovas cular Therapy Agents pantoprazol e 40 mg tablet,sonia yed release 2- 00:00: 00 01-23 00:00 :00 No [id number] 1 tablet DAILY 1 tablet DAILY (route: oral) Med Classific ation: Gastroint estinal Therapy Agents nitrofurant oin monohydrate /macrocryst als 100 mg capsule 2-13 00:00: 00 11-01 23:59 :00 No [id number] 1 capsule TWICE A DAY FOR UTI FOR 10 DAYS 1 capsule TWICE A DAY FOR UTI FOR 10 DAYS (route: oral) Med Classific ation: Genitouri nary Therapy metformin 1,000 mg tablet - 00:00: 00 01-20 23:59 :00 No [id number] 1 tablet TWICE A DAY DIRECTED 1 tablet TWICE A DAY DIRECTED (route: oral) Med Classific ation: Endocrine amlodipine 10 mg tablet 11-15 00:00: 00 01-20 23:59 :00 No [id number] 1 tablet DAILY 1 tablet DAILY (route: oral) Med Classific ation: Cardiovas cular Therapy Agents ascorbic acid (vitamin C) 1,000 mg capsule 11-15 00:00: 00 01-20 23:59 :00 No [id number] 1 capsule DAILY 1 capsule DAILY (route: oral) Med Classific ation: Electroly te Balance-N utritiona l Products Aspirin Childrens 81 mg chewable tablet 11-15 00:00: 00 01-20 23:59 :00 No [id number] 1 tablet DAILY 1 tablet DAILY (route: oral) Med Classific ation: Hematolog ical Agents carvedilol 25 mg tablet - 00:00: 00 01-20 23:59 :00 No [id number] 1 tablet 2 TIMES DAILY 1 tablet 2 TIMES DAILY (route: oral) Med Classific ation: Cardiovas cular Therapy Agents citalopram 20 mg tablet - 00:00: 00 01-20 23:59 :00 No [id number] 1 tablet DAILY 1 tablet DAILY (route: oral) Med Classific ation: Central Nervous System Agents cyclobenzap rine 5 mg tablet 11-15 00:00: 00 01-20 23:59 :00 No [id number] 1 tablet BEDTIME 1 tablet BEDTIME (route: oral) Med Classific ation: Locomotor System duloxetine 60 mg capsule,del ayed release 11-15 00:00: 00 01-20 23:59 :00 No [id number] 1 capsule DAILY 1 capsule DAILY (route: oral) Med Classific ation: Central Nervous System Agents famotidine 40 mg tablet 11-15 00:00: 00 01-20 23:59 :00 No [id number] 1 tablet BEDTIME 1 tablet BEDTIME (route: oral) Med Classific ation: Gastroint estinal Therapy Agents ferrous sulfate 325 mg (65 mg iron) tablet 11-15 00:00: 00 01-20 23:59 :00 No [id number] 1 tablet DAILY 1 tablet DAILY (route: oral) Med Classific ation: Electroly te Balance-N utritiona l Products furosemide 40 mg tablet 11-15 00:00: 00 12-24 23:59 :00 No [id number] 1 tablet DAILY 1 tablet DAILY (route: oral) Med Classific ation: Cardiovas cular Therapy Agents hydralazine 25 mg tablet 11-15 00:00: 00 12-24 23:59 :00 No [id number] 1 tablet 3 TIMES DAILY 1 tablet 3 TIMES DAILY (route: oral) Med Classific ation: Cardiovas cular Therapy Agents Imbruvica 420 mg tablet 11-15 00:00: 00 01-20 23:59 :00 No [id number] 1 tablet DAILY 1 tablet DAILY (route: oral) Med Classific ation: Antineopl astics Imbruvica 420 mg tablet 11-15 00:00: 00 12-24 00:00 :00 No [id number] 1 tablet DAILY 1 tablet DAILY (route: oral) Med Classific ation: Antineopl astics Januvia 100 mg tablet 11-15 00:00: 00 12-24 23:59 :00 No [id number] 1 tablet DAILY 1 tablet DAILY (route: oral) Med Classific ation: Endocrine pregabalin 150 mg capsule 09 00:00: 00 01-20 23:59 :00 No [id number] 1 capsule 2 TIMES DAILY 1 capsule 2 TIMES DAILY (route: oral) Med Classific ation: Central Nervous System Agents Senna Lax 8.6 mg tablet 11-15 00:00: 00 01-20 23:59 :00 No [id number] 2 tablet BEDTIME 2 tablet BEDTIME (route: oral) Med Classific ation: Gastroint estinal Therapy Agents solifenacin 5 mg tablet 11-15 00:00: 00 01-23 00:00 :00 No [id number] 1 tablet DAILY 1 tablet DAILY (route: oral) Med Classific ation: Genitouri nary Therapy spironolact one 25 mg tablet 11-15 00:00: 00 01-20 23:59 :00 No [id number] 1 tablet DAILY 1 tablet DAILY (route: oral) Med Classific ation: Cardiovas cular Therapy Agents sulindac 150 mg tablet 11-15 00:00: 00 01-23 00:00 :00 No [id number] 1 tablet 2 TIMES DAILY 1 tablet 2 TIMES DAILY (route: oral) Med Classific ation: Analgesic , Anti-infl ammatory or Antipyret ic nitrofurant oin macrocrysta l 100 mg capsule 3-24 00:00: 00 12-24 23:59 :00 No [id number] 1 capsule 2 TIMES DAILY 1 capsule 2 TIMES DAILY (route: oral) Med Classific ation: Genitouri nary Therapy Macrobid 100 mg capsule 4-10 00:00: 00 12-24 23:59 :00 No [id number] 100 mg 2 TIMES DAILY 100 mg 2 TIMES DAILY (route: oral) Med Classific ation: Genitouri nary Therapy cefpodoxime 100 mg tablet 4-16 00:00: 00 12-25 23:59 :00 No [id number] 1 tablet 2 TIMES DAILY 1 tablet 2 TIMES DAILY (route: oral) Med Classific ation: Anti-Infe ctive Agents Citracal-D3 Maximum Plus 325 mg-12.5 mcg-2.75 mg tablet 12-24 00:00: 00 01-20 23:59 :00 No [id number] 1 tablet EVERY AM 1 tablet EVERY AM (route: oral) Med Classific ation: Electroly te Balance-N utritiona l Products magnesium oxide 500 mg capsule 12-24 00:00: 00 01-23 00:00 :00 No [id number] 1 capsule EVERY PM 1 capsule EVERY PM (route: oral) Med Classific ation: Electroly te Balance-N utritiona l Products Multiple Vitamins tablet 12-24 00:00: 00 01-20 23:59 :00 No [id number] 1 tablet EVERY AM 1 tablet EVERY AM (route: oral) Med Classific ation: Electroly te Balance-N utritiona l Products acetaminoph en 325 mg tablet 01-23 00:00: 00 01-20 23:59 :00 No [id number] 2 tablet EVERY 6 HOURS 2 tablet EVERY 6 HOURS (route: oral) Med Classific ation: Analgesic , Anti-infl ammatory or Antipyret ic coenzyme Q10 100 mg capsule 01-23 00:00: 00 01-20 23:59 :00 No [id number] 1 capsule BEDTIME 1 capsule BEDTIME (route: oral) Med Classific ation: Alternati ve Therapy docusate sodium 100 mg capsule 01-22 00:00: 00 01-20 23:59 :00 No [id number] 1 capsule 2 TIMES DAILY 1 capsule 2 TIMES DAILY (route: oral) Med Classific ation: Gastroint estinal Therapy Agents enoxaparin 40 mg/0.4 mL subcutaneou s syringe 01-23 00:00: 00 02-07 23:59 :00 No [id number] 0.4 mL DAILY 0.4 mL DAILY (route: subcutaneo us) Med Classific ation: Hematolog ical Agents furosemide 20 mg tablet 01-22 00:00: 00 01-20 23:59 :00 No [id number] 1 tablet DAILY 1 tablet DAILY (route: oral) Med Classific ation: Cardiovas cular Therapy Agents magnesium oxide 400 mg (241.3 mg magnesium) tablet 01-23 00:00: 00 01-20 23:59 :00 No [id number] 1 tablet BEDTIME 1 tablet BEDTIME (route: oral) Med Classific ation: Electroly te Balance-N utritiona l Products omeprazole 20 mg tablet,sonia yed release 01-22 00:00: 00 01-20 23:59 :00 No [id number] 1 tablet DAILY 1 tablet DAILY (route: oral) Med Classific ation: Gastroint estinal Therapy Agents oxycodone 5 mg tablet 01-22 00:00: 00 01-20 23:59 :00 No [id number] 1 tablet EVERY 4 HOURS 1 tablet EVERY 4 HOURS (route: oral) Med Classific ation: Analgesic , Anti-infl ammatory or Antipyret ic oxycodone ER 10 mg tablet,vanda h resistant,e xtended release 12 hr 01-23 00:00: 00 01-20 23:59 :00 No [id number] 1 tablet EVERY 12 HOURS 1 tablet EVERY 12 HOURS (route: oral) Med Classific ation: Analgesic , Anti-infl ammatory or Antipyret ic polyethylen e glycol 3350 17 gram/dose oral powder 01-22 00:00: 00 01-20 23:59 :00 No [id number] 17 gram DAILY 17 gram DAILY (route: oral) Med Classific ation: Gastroint estinal Therapy Agents fluconazole 150 mg tablet 01-28 00:00: 00 01-20 23:59 :00 No [id number] 1 tablet DIRECTED 1 tablet DIRECTED (route: oral) Med Classific ation: Anti-Infe ctive Agents fluconazole 150 mg tablet 01-16 00:00: 00 02-04 23:59 :00 No [id number] Per instruc tions EVERY 3 DAYS FOR YEAST INFECTION FOR 6 DAYS Per instructio ns EVERY 3 DAYS FOR YEAST INFECTION FOR 6 DAYS (route: oral) Med Classific ation: Anti-Infe ctive Agents duloxetine 60 mg capsule,del ayed release 01-08 00:00: 00 Yes [id number] Per instruc tions EVERY DAY Per instructio ns EVERY DAY (route: oral) Med Classific ation: Central Nervous System Agents pantoprazol e 40 mg tablet,sonia yed release 01-07 00:00: 00 Yes [id number] Per instruc tions TWICE A DAY Per instructio ns TWICE A DAY (route: oral) Med Classific ation: Gastroint estinal Therapy Agents amlodipine 10 mg tablet 01-05 00:00: 00 02-04 23:59 :00 No [id number] Per instruc tions EVERY DAY Per instructio ns EVERY DAY (route: oral) Med Classific ation: Cardiovas cular Therapy Agents metformin 1,000 mg tablet 01-04 00:00: 00 02-04 23:59 :00 No [id number] Per instruc tions TWICE A DAY DIRECTED Per instructio ns TWICE A DAY DIRECTED (route: oral) Med Classific ation: Endocrine pregabalin 150 mg capsule 12-23 00:00: 00 Yes [id number] Per instruc tions 2 (TWO) TIMES A DAY Per instructio ns 2 (TWO) TIMES A DAY (route: oral) Med Classific ation: Central Nervous System Agents acetaminoph en 325 mg tablet 02-04 00:00: 00 Yes [id number] 1 tablet EVERY 6 HOURS 1 tablet EVERY 6 HOURS (route: oral) Med Classific ation: Analgesic , Anti-infl ammatory or Antipyret ic amiodarone 200 mg tablet 02-04 00:00: 00 02-12 23:59 :00 No [id number] 1 tablet 2 TIMES DAILY 1 tablet 2 TIMES DAILY (route: oral) Med Classific ation: Cardiovas cular Therapy Agents amlodipine 5 mg tablet 02-04 00:00: 00 Yes [id number] 1 tablet DAILY 1 tablet DAILY (route: oral) Med Classific ation: Cardiovas cular Therapy Agents ascorbic acid (vitamin C) 500 mg tablet 02-04 00:00: 00 Yes [id number] 1 tablet 2 TIMES DAILY 1 tablet 2 TIMES DAILY (route: oral) Med Classific ation: Electroly te Balance-N utritiona l Products aspirin 81 mg tablet,sonia yed release 02-04 00:00: 00 Yes [id number] 1 tablet DAILY 1 tablet DAILY (route: oral) Med Classific ation: Hematolog ical Agents atorvastati n 80 mg tablet 02-04 00:00: 00 Yes [id number] 1 tablet DIRECTED 1 tablet DIRECTED (route: oral) Med Classific ation: Cardiovas cular Therapy Agents cholecalcif tiera (vitamin D3) 10 mcg (400 unit) capsule 02-04 00:00: 00 Yes [id number] 1 capsule DAILY 1 capsule DAILY (route: oral) Med Classific ation: Electroly te Balance-N utritiona l Products citalopram 20 mg tablet 02-04 00:00: 00 Yes [id number] 1 tablet DAILY 1 tablet DAILY (route: oral) Med Classific ation: Central Nervous System Agents furosemide 40 mg tablet 02-04 00:00: 00 02-12 23:59 :00 No [id number] 1 tablet 2 TIMES DAILY 1 tablet 2 TIMES DAILY (route: oral) Med Classific ation: Cardiovas cular Therapy Agents Humalog KwikPen (U-100) Insulin 100 unit/mL subcutaneou s 02-04 00:00: 00 Yes [id number] Per instruc tions DIRECTED Per instructio ns DIRECTED (route: subcutaneo us) Med Classific ation: Endocrine Imbruvica 140 mg tablet 02-04 00:00: 00 Yes [id number] 1 tablet DAILY 1 tablet DAILY (route: oral) Med Classific ation: Antineopl astics insulin glargine (U-100) 100 unit/mL (3 mL) subcutaneou s pen 02-04 00:00: 00 Yes [id number] 19 unit DIRECTED 19 unit DIRECTED (route: subcutaneo us) Med Classific ation: Endocrine insulin lispro (U-100) 100 unit/mL subcutaneou s pen 02-04 00:00: 00 Yes [id number] 8 unit DIRECTED 8 unit DIRECTED (route: subcutaneo us) Med Classific ation: Endocrine metformin 500 mg tablet 02-04 00:00: 00 Yes [id number] 1 tablet 2 TIMES DAILY 1 tablet 2 TIMES DAILY (route: oral) Med Classific ation: Endocrine metoprolol succinate ER 25 mg tablet,exte nded release 24 hr 02-04 00:00: 00 Yes [id number] Per instruc tions DAILY Per instructio ns DAILY (route: oral) Med Classific ation: Cardiovas cular Therapy Agents Aldactone 25 mg tablet 02-16 00:00: 00 Yes [id number] 25 mg DAILY 25 mg DAILY (route: [...] DRY CLEAN GAUZE, LEAVE OPEN TO AIR. PATIENT/PM HEAD COOK WILL PERFORM THIS TWICE DAILY BETWEEN NURSING [...] DRY CLEAN GAUZE, LEAVE OPEN TO AIR. PATIENT/PM HEAD COOK WILL PERFORM THIS TWICE DAILY BETWEEN NURSING [...] BLOCKAGE/LEAKAGE, HEAVY SEDIMENT. 1 - 3 PRN ALF VISITS FOR CATHETER CHANGE(S) AND/OR TROUBLESHOOTING. [code = SKILLED NURSE TO INSTRUCT PATIENT/CAREGIVER ON CARE AND MANAGEMENT OF SUPRAPUBIC CATHETER. SKILLED NURSE FOR SUPRAPUBIC CATHETER INSERTION/MAINTENANCE UTILIZING 18 FR 10 ML BALLOON, CHANGE Q 4 WEEKS AND PRN FOR LEAKING OR MALFUNCTIONING. IRRIGATE SUPRAPUBIC CATHETER WITH 30-60CC NORMAL SALINE PRN BLOCKAGE/LEAKAGE, HEAVY SEDIMENT. 1 - 3 PRN ALF VISITS FOR CATHETER CHANGE(S) AND/OR TROUBLESHOOTING.] Goal 2024-03-04 Patient Goal - TO FEEL BOBBY R Goal Provider Goal - A PLAN OF CARE WILL BE ESTABLISHED THAT MEETS PATIENT'S ALF NEEDS AND INCLUDES PATIENT GOAL FOR HOME [...] End Date/Time Encounter Type Admission Type Attending [facility] Care Department Encounter ID Discharge Date Discharge Status Discharge Condition Discharge Reason Percent Goals Met 2024-02-05 00:00:00 2024-03-04 00:00:00 Outpatient JOSE ROSA [facility] [id number] 2024-03-04 00:00:00 DISCHARGE TO HOME OR SELF CARE INDEPENDEN T IN THE COMMUNITY NO LONGER HOMEBOUND ( ONLY) 47.62
== END 2024-09-07 11:37 | disposition home or self-care (01) ==
LOC: HO.LNP 11:36
PROVIDERS: Visit Provider Urology
DX: R68.89 Other general symptoms and signs (principal)
CPT/HCPCS: 87086; 87088; 87186

== ENCOUNTER → 2024-09-11 12:45 | Outpatient (BNVA) | payer MEDICARE, OTHER, SELFPAY | PROVIDERS: PCP Family Medicine; Visit Provider Urology | DX: N31.9 Neuromuscular dysfunction of bladder, unspecified (principal); N39.0 Urinary tract infection, site not specified | CPT/HCPCS: 51705 ==

== ENCOUNTER 2024-09-14 14:24 | Outpatient (AMB) | payer MEDICARE, OTHER, SELFPAY ==
[2024-09-14 14:25] VITALS: BP 154/60; PULSE 62; O2SAT 97; BMI 33.2
--- NOTE | 2024-09-14 14:25 | A.OFFVIS_ITS ---
Vital Signs 09/14/24 14:25 Height 5 ft 5 in Weight 199 lb 11.821 oz BMI 33.2 BP 154/60 H Blood Pressure Location Rt brachial Position Sitting Pulse 62 Pulse Source Pulse Oximeter Pulse Oximetry (%) 97 Oxygen Delivery Method Room Air Intake Visit Reasons: 6 week follow up Intake Note: ESTABLISHED PATIENT Reason; 6 week FUV Changes/concerns? No significant changes per pt. Still taking nexium and famotidine w/o difficulty. 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: No Allergies amoxicillin [AMOXICILLIN] Allergy (Severe, Verified 09/14/24 14:25) stroke, blood clots ciprofloxacin [From CIPRO] Allergy (Severe, Verified 09/14/24 14:25) ANAPHYLAXIS Iodinated Contrast Media [IV DYE, IODINE CONTAINING CONTRAST ] Allergy (Severe, Verified 09/14/24 14:25) HIVES levofloxacin Allergy (Severe, Verified 09/14/24 14:25) Anaphylaxis liraglutide Allergy (Severe, Verified 09/14/24 14:25) Headache Penicillins Allergy (Severe, Verified 09/14/24 14:25) stroke, blood clots phenazopyridine [Pyridium] Allergy (Severe, Verified 09/14/24 14:25) Anaphylaxis FREYA Inhibitors Allergy (Intermediate, Verified 09/14/24 14:25) Cough ARB-Angiotensin Receptor Antagonist Allergy (Intermediate, Verified 09/14/24 14:25) Cough cefpodoxime Allergy (Intermediate, Verified 09/14/24 14:25) Dizziness, nausea doxazosin Allergy (Intermediate, Verified 09/14/24 14:25) Shortness of Breath fluticasone [Advair Diskus] Allergy (Intermediate, Verified 09/14/24 14:25) Anxiety gabapentin [From Neurontin] Allergy (Intermediate, Verified 09/14/24 14:25) Headache hydralazine Allergy (Intermediate, Verified 09/14/24 14:25) Shortness of Breath latex Allergy (Intermediate, Verified 09/14/24 14:25) Hives linezolid Allergy (Intermediate, Verified 09/14/24 14:25) Nausea and Vomiting meloxicam Allergy (Intermediate, Verified 09/14/24 14:25) Unknown salmeterol [Advair Diskus] Allergy (Intermediate, Verified 09/14/24 14:25) Anxiety Tetanus Vaccines and Toxoid Allergy (Intermediate, Verified 09/14/24 14:25) Swelling torsemide Allergy (Intermediate, Verified 09/14/24 14:25) Shortness of Breath cephalexin [Keflex] Allergy (Mild, Verified 09/14/24 14:25) Nausea HPI HPI 6 week follow up: Details: LAST VISIT GERD (gastroesophageal reflux disease) IBS (irritable bowel syndrome) Nausea Screen for colon cancer Plan Message sent to surgical schedulers to book procedure for patient. Patient is intermediate risk for procedures. Awaiting to go also for her hip surgery. Currently nausea and epigastric pain postprandially, feels like pantoprazole is not working. Will switch to Nexium daily. Will hold off on taking famotidine at bedtime. Avoid dietary triggers and late night snacking. Staying upright for minimum 3 hours after meals discussed with patient. Patient will take MiraLax daily. Patient can also take fiber with probiotics daily follow-up in the office in 3 months, sooner on as needed basis. She is agreeable to this plan and verbalizes understanding of instructions. She was given the opportunity to ask questions and all questions answered. ? Thank you for allowing me to participate in her care Medications New esomeprazole magnesium (Nexium) 40 mg PO BID 60 caps 5RF K21.9 Discontinued pantoprazole Discontinued Reason: Doctor's Order 40 mg PO BID 180 tabs 2RF K21.9 On Hold famotidine Hold Comment: Doctor's Order 40 mg PO BEDTIME 90 tabs 1RF K21.9 TODAY'S VISIT Patient is here today for follow-up and to discuss the prep. She will be booked for colonoscopy. If patient is unable to be book before October 22 we would have to wait until after she has her hip surgery. Hip surgery scheduled for November 25. Patient reports occasional loose stools but doing better. Patient is taking fiber daily. Her symptoms of acid reflux are suppressed doing better on Nexium. Denies melena, hematochezia, unintentional weight loss or ribbon like stools. Patient denies dyspepsia, dysphagia or odynophagia occasional acid reflux depending on what she eats. [facility] Medical History Osteoarthritis Morbid obesity Allergy to multiple antibiotics Depression Arthritis of left hip Wears dentures Neurogenic urinary bladder disorder History of blood transfusion History of CVA (cerebrovascular accident) Seasonal allergies History of numbness PONV (postoperative nausea and vomiting) Self-catheterizes urinary bladder Diabetes with neurologic complications Type 2 diabetes mellitus with unspecified complications Anemia CLL (chronic lymphocytic leukemia) Sleep apnea Diabetes mellitus CLL (chronic lymphocytic leukemia) Arthritis Fibromyalgia Hypercholesterolemia Hypertension History of bilateral breast cancer Urinary retention with incomplete bladder emptying Surgical History History of open heart surgery (~01/31/24) History of total left hip replacement S/P Botox injection History of suprapubic catheter S/P left breast biopsy History of esophagogastroduodenoscopy (EGD) Hx of colonoscopy History of bladder repair surgery History of total hysterectomy S/P breast biopsy, right History of back surgery History of biopsy of bladder Family History Mother Breast cancer Father Heart disease Father Lung cancer Mother Colon cancer Brother Pancreatic cancer Social History Household Members: Spouse Housing: House Are you a primary respiratory care faculty to a significant other at home: No Do you presently have visiting nurse or other home services: Yes Alcohol intake: never Comment: patient refused telesiter,removed per pt request Patient Tobacco Use Status: Never used Tobacco Advance Directives Date on File: 07/30/23 service: No Current occupational status: retired Female Reproductive History Menstrual Age of Menarche: 15 Review of Systems Const Denies weight gain and Denies weight loss ENT Reports no additional complaints, Denies dysphagia and Denies odynophagia Card Reports no additional complaints Resp Reports no additional complaints GI Denies abdominal pain, Denies belching, Denies melena, Reports bloating, Denies change in bowel habits, Reports constipation (Occasional), Denies dysphagia, Denies excessive flatus, Denies dyspepsia, Reports heartburn, Denies diarrhea, Denies loose stools, Reports nausea (Occasional), Denies odynophagia and Denies vomiting Reports no additional complaints Musc Reports no additional complaints Neuro Reports no additional complaints Psych Reports no additional complaints Endo Reports no additional complaints Physical Exam Vital Signs: Last Vital Signs Pulse 62 09/14/24 14:25 BP 154/60 H 09/14/24 14:25 Pulse Ox 97 09/14/24 14:25 Oxygen Delivery Method Room Air 09/14/24 14:25 BMI result Body Mass Index 33.2 Const Other: Patient ambulating with a wheeled walker General: healthy appearing and no acute distress Nutritional Appearance: obese Orientation/consciousness: patient oriented x3 Resp Effort & Inspection: normal respiratory effort, able to speak in complete sentences, no tracheal deviation and symmetric chest movement Auscultation: clear to auscultation bilaterally Cardio Rate: regular rate GI Inspection: Yes normal to inspection, No distended and Yes obesity Palpation (GI): Soft to palpation, not firm, nontender and No hepatosplenomegaly present Auscultation: normal bowel sounds General: Yes no CVA tenderness Back/Spine/Pelvis Back: no CVA tenderness Skin General skin exam: elasticity normal, turgor normal and dry skin Neuro General: patient oriented x3 Psych Appearance: grossly normal Mental Status: mental status grossly normal Assessment & Plan Assessment & Plan (1) GERD (gastroesophageal reflux disease): Code(s): K21.9 - Gastro-esophageal reflux disease without esophagitis Qualifiers: Esophagitis presence: esophagitis presence not specified Qualified Code(s): K21.9 - Gastro-esophageal reflux disease without esophagitis (2) IBS (irritable bowel syndrome): Code(s): K58.9 - Irritable bowel syndrome, unspecified Qualifiers: Irritable bowel syndrome type: without diarrhea Qualified Code(s): K58.9 - Irritable bowel syndrome, unspecified (3) Nausea: Code(s): R11.0 - Nausea (4) Screen for colon cancer: Code(s): Z12.11 - Encounter for screening for malignant neoplasm of colon Plan Message sent to surgical schedulers last visit to book procedure for patient. Book procedure before October 22. Patient will have hip surgery and should not have any procedure after Oct 22. Patient was cleared by cardiology. Patient is on low-dose aspirin. Denies any cardiac or respiratory symptoms at this time. Discussed with patient good bowel prep and clear liquid diet day before procedure. What to expect before during and after procedure discussed with patient. Stressed the importance of good bowel prep and clear liquid diet day before procedure. I will see patient after the procedure. She is agreeable to this plan and verbalizes understanding of instructions. She was given the opportunity to ask questions and all questions answered. Thank you for allowing me to participate in her care Medications: New bisacodyl (Dulcolax (bisacodyl)) take 4 tabs at noon the day before your colonoscopy 20 mg (4 x 5 mg) PO ONCE 1 day 4 tabs 0RF Z12.11 - Encounter for screening for malignant neoplasm of colon polyethylene glycol 3350 (Miralax) As directed by gastroenterology department at [facility] 238 grams PO ONCE 238 grams 0RF Z12.11 - Encounter for screening for malignant neoplasm of colon Coding Level of Care Code Est Pt Level 3 (26855) Diagnoses Gastroesophageal reflux disease, unspecified whether esophagitis present K21.9 Esophagitis presence: esophagitis presence not specified Irritable bowel syndrome without diarrhea K58.9 Irritable bowel syndrome type: without diarrhea Nausea R11.0 Screen for colon cancer Z12.11 Time Spent (min) 30 Comment 20 minutes spent with patient and additional 10 minutes spent reviewing her records
--- OUTSIDE RECORDS SUMMARY | 2024-09-14 16:39 | XMS_ITS ---
Author Organization [facility] Address [address] [facility] [place] [address] Care Team Providers Care Bead Stringer Name Role Phone Ricardo Breen MD Primary Care Provider Unavailab Sylvia Kirkpatrick Unavailable [phone] Prosper Henson Unavailable [phone] Allergies Allergen (clinical drug ingredient) Drug/Non Drug [...] 024 Encounters Encounter Location Date Provider Diagnosis [facility] [place] [address] [place] [address] 04/16/2024 Prosper Henson Type 2 diabetes mellitus [...] Reason: Provider Name:Sylvia yu, 10/15/2024 02:45:00 PM, [address] [place] [address], [phone], Procedure Notes * Category Sub-Category Detail Notes [...] as necessary. Patient chooses, no pharmaceutical tx (18273) Keratoma Treatment Parring or Cutting o f Benign Hyperkeratotic Lesion(s) 50249 ( >4 Lesions) - The Benign hyperkeratotic lesions, as described above were pared, and/or cut utilizing a sterile #15 blade, tissue nippers, and/or dremel Progress Notes * Kaitlin BROWN MDOB:[birth year] (78 yo F)Acc No.[id number]:04/16/2024 Progress Note Patient:?Kaitlin Brown Noel Provider:?Prosper Henson DPM :1945???Age:78 Y???Sex:Female D ate:04/16/2024 Address:[address] [place], [place] Pcp:Ricardo Breen MD Subjective: * Chief Complaints: [...] as necessary. Patient chooses, no pharmaceutical tx (42437).?Keratoma Treatment:?Parring or Cutting of Benign Hyperkeratotic Lesion(s)?99143 ( >4 Lesions) - The Benign hyperkeratotic lesions, as described above were pared, and/or cut utilizing a sterile #15 blade, tissue nippers, and/or dremel.? * Procedure Codes:?12898 DEBRI DE NAIL, 6 OR MORE, Modifiers: XS 08522 TRIM SKIN LESIONS, OVER 4, Modifiers: XS * Follow Up:?3 Months * Images: * Sign off status: Completed true * Provider:?Prosper Henson DPM Date:? 024 Generated for Jeny ball/Chance/Pallavi on:?09/14/2024 04:39 PM EST History and Physical Notes * [...]
--- OUTSIDE RECORDS SUMMARY | 2024-09-14 16:39 | XMS_ITS ---
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 confirmed Vital Signs Height 5 ft 4 in in 07/16/2024 Weight 195 lbs 07/16/2024 BMI 33.47 kg/m2 07/16/2024 Blood pressure systolic 141 mm Hg 07/16/20 24 Blood pressure diastolic 52 mm Hg 024 Procedures Procedure Date Ordered Date Performed Result Body Sit e 76714-RWLERML NAIL, 6 OR MORE 07/16/2024 N/A 23807-UYCP SKIN LESIONS, 2 TO 4 07/16/2024 N/A Encounters Encounter Location Date Provider Diagnosis [facility] [address] [address] 07/16/2024 Sylvia Hernandezaker Type 2 diabetes mellitus with diabetic polyneuropathy E11.42 and Tinea unguium B35.1 Assessments Encounter Date Diagnosis (ICD Code) Assessment Notes Treatment Notes Treatment Clinical Notes Section Notes 07/16/2024 Type 2 diabetes mellitus with diabetic polyneuropathy (ICD-10 - E11.42) 07/16/2024 Tinea unguium (ICD-10 - B35.1) Plan Of Treatment Pending Test Test Name Order Date 17726-YAROHJW NAIL, 6 OR MORE 07/16/2024 67535-ETNC SKIN LESIONS, 2 TO 4 07/16/20 24 Next Appt Details Follow Up: prn, Reason: Provider Name:Sylvia Zarate aimee, 10/15/2024 02:45:00 PM, [address] [place], [address], Procedure Notes * Category Sub-Category Detail Notes [...] use of a nail nipper and/or dremel-type sapphire stylus grinder, to a more viable healthy nail plate or bed tissue 6-10. Silver nitrate used for any petechial bleeding as necessary. Definitive antifungal treatment options have been reviewed and discussed with the patient. The patient chooses, no pharmaceutical tx - [address] Keratoma Treatment Parring or Cutting o f Benign Hyperkeratotic Lesion(s) (-56) 2-4 Lesions - The Benign hyperkeratotic lesions, as described in exam, were pared, and/or cut utilizing a sterile 15 blade, tissue nippers, and/or dremel - 98219 Progress Notes * Kaitlin BROWN MDOB:[birth year] (79 yo F)Acc No.[id number]:07/16/2024 Progress Note Patient:?Kaitlin Brown Provider:?Sylvia Nguyễn DPM :1945???Age:79 Y???Sex:Female D ate:07/16/2024 Address:[facility] [address] [place] Pcp:Ricardo Breen MD Subjective: * Chief Complaints: [...] use of a nail nipper and/or dremel-type sapphire stylus grinder, to a more viable healthy nail plate or bed tissue 6-10. Silver nitrate used for any petechial bleeding as necessary. Definitive antifungal treatment options have been reviewed and discussed with the patient. The patient chooses, no pharmaceutical tx - 41097.?Keratoma Treatment:?Parring or Cutting of Benign Hyperkeratotic Lesion(s)?(-56) 2-4 Lesions - The Benign hyperkeratotic lesions, as described in exam, were pared, and/or cut utilizing a sterile 15 blade, tissue nippers, and/or dremel - 34230.? * Procedure Codes:?08517 DEBRI DE NAIL, 6 OR MORE, Modifiers: XS 50472 TRIM SKIN LESIONS, 2 TO 4, Modifiers: XS * Follow Up:?prn * Images: * Sign off status: Completed true * Provider:?Sylvia Nguyễn DPM Date:?1 09/15/2023 Generated for Jeny ball/Chance/eTransmitting on:?09/14/2024 04:39 PM EST History and Physical [...]
--- OUTSIDE RECORDS SUMMARY | 2024-09-14 16:40 | XMS_ITS | Continuity of Care Document ---
Author Organization [facility] [address] [place] [address] Phone [phone] Social History Type Date Description Comments Sex [...]
--- OUTSIDE RECORDS SUMMARY | 2024-09-14 16:40 | XMS_ITS ---
Author Organization [facility] Address [address] [place] [address] Care Team Providers Care Dump Truck Driver Off Highway Name Role Phone Ricardo Breen MD Primary Care Provider Unavailab Sylvia Kirkpatrick Unavailable [phone] Prosper Henson Unavailable [phone] REASON FOR VISIT Painful nail(s) aggrevated by shoes and causing difficulty standing/walking. Medications Medication SIG (Take, Route, Frequency, Duration) Notes Start Date End Date Status Voltaren 1 % as directed Externally Active Encounters Encounter Location Date Provider Diagnosis [facility] [address] [place] [address] 02/05/2024 Prosper Henson Type 2 diabetes mellitus [...] Provider Name:Sylvia Hernandezclayton yu, 10/15/2024 02:45:00 PM, [address] [place] [address], [phone], Procedure Notes * Category Sub-Category Detail Notes [...] as necessary. Patient chooses, no pharmaceutical tx (78901) Keratoma Treatment Parring or Cutting o f Benign Hyperkeratotic Lesion(s) 20724 ( >4 Lesions) - The Benign hyperkeratotic lesions, as described above were pared, and/or cut utilizing a sterile #15 blade, tissue nippers, and/or dremel Progress Notes * Kaitlin BROWN MDOB:[birth year] (79 yo F)Acc No.[id number]:02/05/2024 Progress Note Patient:?Kaitlin BROWN Provider:?Prosper Henson DPM :1945???Age:78 Y???Sex:Female D ate:02/05/2024 Address:[address] [place] [address] [facility] Pcp:Ricardo Breen, MD Subjective: * Chief Complaints: [...] as necessary. Patient chooses, no pharmaceutical tx (33977).?Keratoma Treatment:?Parring or Cutting of Benign Hyperkeratotic Lesion(s)?58744 ( >4 Lesions) - The Benign hyperkeratotic lesions, as described above were pared, and/or cut utilizing a sterile #15 blade, tissue nippers, and/or dremel.? * Procedure Codes:?47757 DEBRI DE NAIL, 6 OR MORE, Modifiers: XS , 64653 TRIM SKIN LESIONS, OVER 4, Modifiers: XS [...]
--- OUTSIDE RECORDS SUMMARY | 2024-09-14 16:40 | XMS_ITS | Clinical Summary ---
Author Organization Unknown Care Team Providers Care Production Packager Name Role Phone MELANIA RAUSCH, ELLEN Unavailable Unavailable TOMY MC, JOSE Unavailable Unavailable Payers Payer Name Policy Type Policy Number Effective Date Expira tion Date MEDICARE - [place] - PDGM [id number] Problems Condition Name Condition Details Condition Category Status Onset Date Resolution Date Last Treatment Date Treating Clinician Comments ENCNTR FOR SURGICAL AFTCR FOLLOWING SURGERY ON THE CIRC SYS Active 02-04 00:00: 00 TYPE 2 DIABETES MELLITUS WITHOUT COMPLICATION S Active 02-04 00:00: 00 PAROXYSMAL ATRIAL FIBRILLATION Active 02-04 00:00: 00 ACUPUNCTURE PHYSICIAN (CURRENT) USE OF INSULIN Active 02-04 00:00: 00 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 Active 02-04 00:00: 00 MALIGNANT NEOPLASM OF UNSP SITE OF UNSPECIFIED FEMALE BREAST Active 02-04 00:00: 00 ANEMIA IN NEOPLASTIC DISEASE Active 02-04 00:00: 00 ATHSCL HEART DISEASE OF [place] CORONARY ARTERY W/O ANG PCTRS Active 02-04 [...] 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 Active 02-04 00:00: 00 INTERMEDIATE (CURRENT) USE OF ASPIRIN Active 02-04 00:00: 00 ACUPUNCTURE PHYSICIAN (CURRENT) USE OF ORAL HYPOGLYCEMIC DRUGS Active [...] 2-17 00:00: 00 01-20 23:59 :00 No [id number] 1 tablet BEDTIME 1 tablet BEDTIME (route: oral) Med Classific ation: Cardiovas cular Therapy Agents pantoprazol e 40 mg tablet,sonia yed release 2- 00:00: 00 01-23 00:00 :00 No [id number] 1 tablet DAILY 1 tablet DAILY (route: oral) Med Classific ation: Gastroint estinal Therapy Agents nitrofurant oin monohydrate /macrocryst als 100 mg capsule 2-13 00:00: 00 11-01 23:59 :00 No [id number] 1 capsule TWICE A DAY FOR UTI FOR 10 DAYS 1 capsule TWICE A DAY FOR UTI FOR 10 DAYS (route: oral) Med Classific ation: Genitouri nary Therapy metformin 1,000 mg tablet - 00:00: 00 01-20 23:59 :00 No [id number] 1 tablet TWICE A DAY DIRECTED 1 tablet TWICE A DAY DIRECTED (route: oral) Med Classific ation: Endocrine amlodipine 10 mg tablet 11-15 00:00: 00 01-20 23:59 :00 No [id number] 1 tablet DAILY 1 tablet DAILY (route: oral) Med Classific ation: Cardiovas cular Therapy Agents ascorbic acid (vitamin C) 1,000 mg capsule 11-15 00:00: 00 01-20 23:59 :00 No [id number] 1 capsule DAILY 1 capsule DAILY (route: oral) Med Classific ation: Electroly te Balance-N utritiona l Products Aspirin Childrens 81 mg chewable tablet 11-15 00:00: 00 01-20 23:59 :00 No [id number] 1 tablet DAILY 1 tablet DAILY (route: oral) Med Classific ation: Hematolog ical Agents carvedilol 25 mg tablet - 00:00: 00 01-20 23:59 :00 No [id number] 1 tablet 2 TIMES DAILY 1 tablet 2 TIMES DAILY (route: oral) Med Classific ation: Cardiovas cular Therapy Agents citalopram 20 mg tablet - 00:00: 00 01-20 23:59 :00 No [id number] 1 tablet DAILY 1 tablet DAILY (route: oral) Med Classific ation: Central Nervous System Agents cyclobenzap rine 5 mg tablet 11-15 00:00: 00 01-20 23:59 :00 No [id number] 1 tablet BEDTIME 1 tablet BEDTIME (route: oral) Med Classific ation: Locomotor System duloxetine 60 mg capsule,del ayed release 11-15 00:00: 00 01-20 23:59 :00 No [id number] 1 capsule DAILY 1 capsule DAILY (route: oral) Med Classific ation: Central Nervous System Agents famotidine 40 mg tablet 11-15 00:00: 00 01-20 23:59 :00 No [id number] 1 tablet BEDTIME 1 tablet BEDTIME (route: oral) Med Classific ation: Gastroint estinal Therapy Agents ferrous sulfate 325 mg (65 mg iron) tablet 11-15 00:00: 00 01-20 23:59 :00 No [id number] 1 tablet DAILY 1 tablet DAILY (route: oral) Med Classific ation: Electroly te Balance-N utritiona l Products furosemide 40 mg tablet 11-15 00:00: 00 12-24 23:59 :00 No [id number] 1 tablet DAILY 1 tablet DAILY (route: oral) Med Classific ation: Cardiovas cular Therapy Agents hydralazine 25 mg tablet 11-15 00:00: 00 12-24 23:59 :00 No [id number] 1 tablet 3 TIMES DAILY 1 tablet 3 TIMES DAILY (route: oral) Med Classific ation: Cardiovas cular Therapy Agents Imbruvica 420 mg tablet 11-15 00:00: 00 01-20 23:59 :00 No [id number] 1 tablet DAILY 1 tablet DAILY (route: oral) Med Classific ation: Antineopl astics Imbruvica 420 mg tablet 11-15 00:00: 00 12-24 00:00 :00 No [id number] 1 tablet DAILY 1 tablet DAILY (route: oral) Med Classific ation: Antineopl astics Januvia 100 mg tablet 11-15 00:00: 00 12-24 23:59 :00 No [id number] 1 tablet DAILY 1 tablet DAILY (route: oral) Med Classific ation: Endocrine pregabalin 150 mg capsule 09 00:00: 00 01-20 23:59 :00 No [id number] 1 capsule 2 TIMES DAILY 1 capsule 2 TIMES DAILY (route: oral) Med Classific ation: Central Nervous System Agents Senna Lax 8.6 mg tablet 11-15 00:00: 00 01-20 23:59 :00 No [id number] 2 tablet BEDTIME 2 tablet BEDTIME (route: oral) Med Classific ation: Gastroint estinal Therapy Agents solifenacin 5 mg tablet 11-15 00:00: 00 01-23 00:00 :00 No [id number] 1 tablet DAILY 1 tablet DAILY (route: oral) Med Classific ation: Genitouri nary Therapy spironolact one 25 mg tablet 11-15 00:00: 00 01-20 23:59 :00 No [id number] 1 tablet DAILY 1 tablet DAILY (route: oral) Med Classific ation: Cardiovas cular Therapy Agents sulindac 150 mg tablet 11-15 00:00: 00 01-23 00:00 :00 No [id number] 1 tablet 2 TIMES DAILY 1 tablet 2 TIMES DAILY (route: oral) Med Classific ation: Analgesic , Anti-infl ammatory or Antipyret ic nitrofurant oin macrocrysta l 100 mg capsule 3-24 00:00: 00 12-24 23:59 :00 No [id number] 1 capsule 2 TIMES DAILY 1 capsule 2 TIMES DAILY (route: oral) Med Classific ation: Genitouri nary Therapy Macrobid 100 mg capsule 4-10 00:00: 00 12-24 23:59 :00 No [id number] 100 mg 2 TIMES DAILY 100 mg 2 TIMES DAILY (route: oral) Med Classific ation: Genitouri nary Therapy cefpodoxime 100 mg tablet 4-16 00:00: 00 12-25 23:59 :00 No [id number] 1 tablet 2 TIMES DAILY 1 tablet 2 TIMES DAILY (route: oral) Med Classific ation: Anti-Infe ctive Agents Citracal-D3 Maximum Plus 325 mg-12.5 mcg-2.75 mg tablet 12-24 00:00: 00 01-20 23:59 :00 No [id number] 1 tablet EVERY AM 1 tablet EVERY AM (route: oral) Med Classific ation: Electroly te Balance-N utritiona l Products magnesium oxide 500 mg capsule 12-24 00:00: 00 01-23 00:00 :00 No [id number] 1 capsule EVERY PM 1 capsule EVERY PM (route: oral) Med Classific ation: Electroly te Balance-N utritiona l Products Multiple Vitamins tablet 12-24 00:00: 00 01-20 23:59 :00 No [id number] 1 tablet EVERY AM 1 tablet EVERY AM (route: oral) Med Classific ation: Electroly te Balance-N utritiona l Products acetaminoph en 325 mg tablet 01-23 00:00: 00 01-20 23:59 :00 No [id number] 2 tablet EVERY 6 HOURS 2 tablet EVERY 6 HOURS (route: oral) Med Classific ation: Analgesic , Anti-infl ammatory or Antipyret ic coenzyme Q10 100 mg capsule 01-23 00:00: 00 01-20 23:59 :00 No [id number] 1 capsule BEDTIME 1 capsule BEDTIME (route: oral) Med Classific ation: Alternati ve Therapy docusate sodium 100 mg capsule 01-22 00:00: 00 01-20 23:59 :00 No [id number] 1 capsule 2 TIMES DAILY 1 capsule 2 TIMES DAILY (route: oral) Med Classific ation: Gastroint estinal Therapy Agents enoxaparin 40 mg/0.4 mL subcutaneou s syringe 01-23 00:00: 00 02-07 23:59 :00 No [id number] 0.4 mL DAILY 0.4 mL DAILY (route: subcutaneo us) Med Classific ation: Hematolog ical Agents furosemide 20 mg tablet 01-22 00:00: 00 01-20 23:59 :00 No [id number] 1 tablet DAILY 1 tablet DAILY (route: oral) Med Classific ation: Cardiovas cular Therapy Agents magnesium oxide 400 mg (241.3 mg magnesium) tablet 01-23 00:00: 00 01-20 23:59 :00 No [id number] 1 tablet BEDTIME 1 tablet BEDTIME (route: oral) Med Classific ation: Electroly te Balance-N utritiona l Products omeprazole 20 mg tablet,sonia yed release 01-22 00:00: 00 01-20 23:59 :00 No [id number] 1 tablet DAILY 1 tablet DAILY (route: oral) Med Classific ation: Gastroint estinal Therapy Agents oxycodone 5 mg tablet 01-22 00:00: 00 01-20 23:59 :00 No [id number] 1 tablet EVERY 4 HOURS 1 tablet EVERY 4 HOURS (route: oral) Med Classific ation: Analgesic , Anti-infl ammatory or Antipyret ic oxycodone ER 10 mg tablet,vanda h resistant,e xtended release 12 hr 01-23 00:00: 00 01-20 23:59 :00 No [id number] 1 tablet EVERY 12 HOURS 1 tablet EVERY 12 HOURS (route: oral) Med Classific ation: Analgesic , Anti-infl ammatory or Antipyret ic polyethylen e glycol 3350 17 gram/dose oral powder 01-22 00:00: 00 01-20 23:59 :00 No [id number] 17 gram DAILY 17 gram DAILY (route: oral) Med Classific ation: Gastroint estinal Therapy Agents fluconazole 150 mg tablet 01-28 00:00: 00 01-20 23:59 :00 No [id number] 1 tablet DIRECTED 1 tablet DIRECTED (route: oral) Med Classific ation: Anti-Infe ctive Agents fluconazole 150 mg tablet 01-16 00:00: 00 02-04 23:59 :00 No [id number] Per instruc tions EVERY 3 DAYS FOR YEAST INFECTION FOR 6 DAYS Per instructio ns EVERY 3 DAYS FOR YEAST INFECTION FOR 6 DAYS (route: oral) Med Classific ation: Anti-Infe ctive Agents duloxetine 60 mg capsule,del ayed release 01-08 00:00: 00 Yes [id number] Per instruc tions EVERY DAY Per instructio ns EVERY DAY (route: oral) Med Classific ation: Central Nervous System Agents pantoprazol e 40 mg tablet,sonia yed release 01-07 00:00: 00 Yes [id number] Per instruc tions TWICE A DAY Per instructio ns TWICE A DAY (route: oral) Med Classific ation: Gastroint estinal Therapy Agents amlodipine 10 mg tablet 01-05 00:00: 00 02-04 23:59 :00 No [id number] Per instruc tions EVERY DAY Per instructio ns EVERY DAY (route: oral) Med Classific ation: Cardiovas cular Therapy Agents metformin 1,000 mg tablet 01-04 00:00: 00 02-04 23:59 :00 No [id number] Per instruc tions TWICE A DAY DIRECTED Per instructio ns TWICE A DAY DIRECTED (route: oral) Med Classific ation: Endocrine pregabalin 150 mg capsule 12-23 00:00: 00 Yes [id number] Per instruc tions 2 (TWO) TIMES A DAY Per instructio ns 2 (TWO) TIMES A DAY (route: oral) Med Classific ation: Central Nervous System Agents acetaminoph en 325 mg tablet 02-04 00:00: 00 Yes [id number] 1 tablet EVERY 6 HOURS 1 tablet EVERY 6 HOURS (route: oral) Med Classific ation: Analgesic , Anti-infl ammatory or Antipyret ic amiodarone 200 mg tablet 02-04 00:00: 00 02-12 23:59 :00 No [id number] 1 tablet 2 TIMES DAILY 1 tablet 2 TIMES DAILY (route: oral) Med Classific ation: Cardiovas cular Therapy Agents amlodipine 5 mg tablet 02-04 00:00: 00 Yes [id number] 1 tablet DAILY 1 tablet DAILY (route: oral) Med Classific ation: Cardiovas cular Therapy Agents ascorbic acid (vitamin C) 500 mg tablet 02-04 00:00: 00 Yes [id number] 1 tablet 2 TIMES DAILY 1 tablet 2 TIMES DAILY (route: oral) Med Classific ation: Electroly te Balance-N utritiona l Products aspirin 81 mg tablet,sonia yed release 02-04 00:00: 00 Yes [id number] 1 tablet DAILY 1 tablet DAILY (route: oral) Med Classific ation: Hematolog ical Agents atorvastati n 80 mg tablet 02-04 00:00: 00 Yes [id number] 1 tablet DIRECTED 1 tablet DIRECTED (route: oral) Med Classific ation: Cardiovas cular Therapy Agents cholecalcif tiera (vitamin D3) 10 mcg (400 unit) capsule 02-04 00:00: 00 Yes [id number] 1 capsule DAILY 1 capsule DAILY (route: oral) Med Classific ation: Electroly te Balance-N utritiona l Products citalopram 20 mg tablet 02-04 00:00: 00 Yes [id number] 1 tablet DAILY 1 tablet DAILY (route: oral) Med Classific ation: Central Nervous System Agents furosemide 40 mg tablet 02-04 00:00: 00 02-12 23:59 :00 No [id number] 1 tablet 2 TIMES DAILY 1 tablet 2 TIMES DAILY (route: oral) Med Classific ation: Cardiovas cular Therapy Agents Humalog KwikPen (U-100) Insulin 100 unit/mL subcutaneou s 02-04 00:00: 00 Yes [id number] Per instruc tions DIRECTED Per instructio ns DIRECTED (route: subcutaneo us) Med Classific ation: Endocrine Imbruvica 140 mg tablet 02-04 00:00: 00 Yes [id number] 1 tablet DAILY 1 tablet DAILY (route: oral) Med Classific ation: Antineopl astics insulin glargine (U-100) 100 unit/mL (3 mL) subcutaneou s pen 02-04 00:00: 00 Yes [id number] 19 unit DIRECTED 19 unit DIRECTED (route: subcutaneo us) Med Classific ation: Endocrine insulin lispro (U-100) 100 unit/mL subcutaneou s pen 02-04 00:00: 00 Yes [id number] 8 unit DIRECTED 8 unit DIRECTED (route: subcutaneo us) Med Classific ation: Endocrine metformin 500 mg tablet 02-04 00:00: 00 Yes [id number] 1 tablet 2 TIMES DAILY 1 tablet 2 TIMES DAILY (route: oral) Med Classific ation: Endocrine metoprolol succinate ER 25 mg tablet,exte nded release 24 hr 02-04 00:00: 00 Yes [id number] Per instruc tions DAILY Per instructio ns DAILY (route: oral) Med Classific ation: Cardiovas cular Therapy Agents Aldactone 25 mg tablet 02-16 00:00: 00 Yes [id number] 25 mg DAILY 25 mg DAILY (route: [...] DRY CLEAN GAUZE, LEAVE OPEN TO AIR. PATIENT/RESIDENTIAL APPRAISER WILL PERFORM THIS TWICE DAILY BETWEEN NURSING [...] DRY CLEAN GAUZE, LEAVE OPEN TO AIR. PATIENT/RESIDENTIAL APPRAISER WILL PERFORM THIS TWICE DAILY BETWEEN NURSING [...] BLOCKAGE/LEAKAGE, HEAVY SEDIMENT. 1 - 3 PRN GROUP HOME VISITS FOR CATHETER CHANGE(S) AND/OR TROUBLESHOOTING. [code = SKILLED NURSE TO INSTRUCT PATIENT/CAREGIVER ON CARE AND MANAGEMENT OF SUPRAPUBIC CATHETER. SKILLED NURSE FOR SUPRAPUBIC CATHETER INSERTION/MAINTENANCE UTILIZING 18 FR 10 ML BALLOON, CHANGE Q 4 WEEKS AND PRN FOR LEAKING OR MALFUNCTIONING. IRRIGATE SUPRAPUBIC CATHETER WITH 30-60CC NORMAL SALINE PRN BLOCKAGE/LEAKAGE, HEAVY SEDIMENT. 1 - 3 PRN GROUP HOME VISITS FOR CATHETER CHANGE(S) AND/OR TROUBLESHOOTING.] Goal 2024-03-04 Patient Goal - TO FEEL BOBBY R Goal Provider Goal - A PLAN OF CARE WILL BE ESTABLISHED THAT MEETS PATIENT'S GROUP HOME NEEDS AND INCLUDES PATIENT GOAL FOR [...] End Date/Time Encounter Type Admission Type Attending [facility] Care Department Encounter ID Discharge Date Discharge Status Discharge Condition Discharge Reason Percent Goals Met 2024-02-05 00:00:00 2024-03-04 00:00:00 Outpatient JOSE ROSA [facility] [id number] 2024-03-04 00:00:00 DISCHARGE TO HOME OR SELF CARE INDEPENDEN T IN THE COMMUNITY NO LONGER HOMEBOUND ( ONLY) 47.62
--- OUTSIDE RECORDS SUMMARY | 2024-09-14 16:40 | XMS_ITS | Patient Health Record ---
[facility] Address [address] [place] [address] Care Team Providers Care Space Buyer Name Role Phone Jamshid RAUSCH, Ricardo Primary Care Provider Unavailab Sylvia Kirkpatrick Unavailable [phone] Prosper Henson Unavailable [phone] Allergies Allergen (clinical drug ingredient) Drug/Non Drug [...] Status Risk Notes Problem Acquired hallux valgus (73910850) Hallux valgus (acquired), left foot (M20.12) Active confirmed Problem Polyneuropathy due to diabetes mellitus type I (948992635) Type 1 diabetes mellitus with diabetic polyneuropathy (E10.42) Active confirmed Problem Polyneuropathy due to type 2 diabetes mellitus (798318859) Type 2 diabetes mellitus with diabetic polyneuropathy (E11.42) Active confirmed Problem Localized, primary osteoarthritis of the ankle and/or foot (802380510) Primary osteoarthritis, left ankle and foot (M19.072) Active confirmed Problem Acquired hallux rigidus (5598838) Hallux rigidus, left foot (M20.22) Active confirmed Problem Non-pressure chronic ulcer of other part of left foot limited to breakdown of skin (L97.521) Active confirmed Problem Non-pressure chronic ulcer of other part of right foot limited to breakdown of skin (L97.511) Active confirmed Problem Polyneuropathy due to type 2 diabetes mellitus (279405828) Type 2 diabetes mellitus with diabetic polyneuropathy (E11.42) Active confirmed Problem Polyneuropathy due to diabetes mellitus type I (284654845) Type 1 diabetes mellitus with diabetic polyneuropathy (E10.42) Active confirmed Vital Signs Blood pressure diastolic 52 mm Hg 07/16/2024 Height 5 ft 4 in in 07/16/2024 Blood pressure systolic 141 mm Hg 07/16/2024 Weight 195 lbs 07/16/2024 BMI 33.47 kg/m2 07/16/2024 Procedures Procedure Date Ordered Date Performed Result Body Sit e 29504-OHVPVZH NAIL, 6 OR MORE 07/16/2024 N/A 45503-FVCD SKIN LESIONS, 2 TO 4 07/16/2024 N/A Encounters Encounter Location Date Provider Diagnosis [facility] [address] 11/06/2023 ProsperMason Type 2 diabetes mellitus with diabetic polyneuropathy E11.42 ; Tinea unguium B35.1 ; Pain in left foot M79.672 ; Primary osteoarthritis, left ankle and foot M19.072 ; Pain in left toe(s) M79.675 ; Pain in right toe(s) M79.674 ; Hallux rigidus, left foot M20.22 ; Hallux valgus (acquired), left foot M20.12 and Localized edema R60.0 [facility] [address] [address] 04/16/2024 Prosper Henson Type 2 diabetes mellitus with diabetic polyneuropathy E11.42 ; Tinea unguium B35.1 ; Pain in left foot M79.672 ; Primary osteoarthritis, left ankle and foot M19.072 ; Pain in left toe(s) M79.675 ; Pain in right toe(s) M79.674 ; Hallux rigidus, left foot M20.22 ; Hallux valgus (acquired), left foot M20.12 and Localized edema R60.[address] [address] 07/16/2024 Sylvia Nguyễn Type 2 diabetes mellitus with diabetic polyneuropathy E11.42 and Tinea unguium B35.[address] [address] 09/24/[address] [address] 10/08/[address] [address] 01/31/2024 [facility] Assessments Encounter Date Diagnosis (ICD Code) [...] X ray : Foot, left 3V 03/30/2020 76186-JZKEPTK NAIL, 6 OR MORE 07/16/2024 54967-FLHRZZF NAIL, 1-5 05/05/2018 32795-UKLNDQQ NAIL, 1-5 07/21/2018 16307-ILFMZJE NAIL, 1-5 10/13/2018 44998, J0702- INJECT or DRAIN, JOINT/BUR SA 05/05/2018 12427-TNVF SKIN LESIONS, OVER 4 05/05/20 18 12588-MMTL SKIN LESIONS, OVER 4 07/21/20 18 65009-JWAO SKIN LESIONS, OVER 4 01/13/20 19 59297-GDOR SKIN LESIONS, OVER 4 04/13/20 19 08911-GYQS SKIN LESIONS, OVER 4 10/13/19 19 78086-VHHW SKIN LESIONS, OVER 4 12/06/19 21 26286-UUPB SKIN LESIONS, OVER 4 05/08/20 21 10320-HGIQ SKIN LESIONS, OVER 4 10/18/19 22 70309-KFPQ SKIN LESIONS, OVER 4 08/01/20 20 57747-EBSS SKIN LESIONS, OVER 4 03/30/20 20 02659-RSHO SKIN LESIONS, OVER 4 07/13/20 19 36479-ROGE SKIN LESIONS, OVER 4 10/12/19 20 46368-JYUR SKIN LESIONS, 2 TO 4 07/16/20 24 87174-MVBP SKIN LESIONS, 2 TO 4 02/20/20 18 20999, Y4594-PWTTY/INJECT, JOINT/BURSA 0 10/13/2018 B7040-KGMXYHHU DYSTROPHIC NAILS ANY # G0635-DXNUEVOY DYSTROPHIC NAILS ANY # B1276-SLLSFGST DYSTROPHIC NAILS ANY # Z0528-BMWMXWMS DYSTROPHIC NAILS ANY # P3404-TUMQMDLC DYSTROPHIC NAILS ANY # J3783-NKGQYNTS DYSTROPHIC NAILS ANY # K1550-TNWIDSMV DYSTROPHIC NAILS ANY # D9774-HTDGRUDL DYSTROPHIC NAILS ANY # F6579-ZFCKDYQZ DYSTROPHIC NAILS ANY # 48864- Nail Unit Biopsy 02/19/2018 Next Appt Details Provider Name:Sylvia Zarate aimee, 10/15/2024 02:45:00 PM, [address] [facility], [place], [address], Insurance Providers Payer Name Payer Address Payer Phone Subscriber Number Group Number Insured Name Patient Relationship to Insured Coverage Start Date Coverage End Date Medicare National [employer] [address] [place] [address] [id number] Kaitlin Ortiz Self - patient is the insured [address] [place] [address] [address] [place], [place] [address] [phone] [id number] Kaitlin Ortiz Self - patient is the [...]
--- OUTSIDE RECORDS SUMMARY | 2024-09-14 16:40 | XMS_ITS | Clinical Summary ---
Author Organization Unknown Care Team Providers Care Store Stock Associate Name Role Phone MELANIA RAUSCH, ELLEN Unavailable Unavailable TOMY MC, JOSE Unavailable Unavailable Payers Payer Name Policy Type Policy Number Effective Date Expira tion Date MEDICARE - [place] - PDGM [id number] Problems Condition Name Condition Details Condition Category Status Onset Date Resolution Date Last Treatment Date Treating Clinician Comments ENCNTR FOR SURGICAL AFTCR FOLLOWING SURGERY ON THE CIRC SYS Active 02-04 00:00: 00 TYPE 2 DIABETES MELLITUS WITHOUT COMPLICATION S Active 02-04 00:00: 00 PAROXYSMAL ATRIAL FIBRILLATION Active 02-04 00:00: 00 CUFF MAKER (CURRENT) USE OF INSULIN Active 02-04 00:00: 00 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 Active 02-04 00:00: 00 MALIGNANT NEOPLASM OF UNSP SITE OF UNSPECIFIED FEMALE BREAST Active 02-04 00:00: 00 ANEMIA IN NEOPLASTIC DISEASE Active 02-04 00:00: 00 ATHSCL HEART DISEASE OF [place] CORONARY ARTERY W/O ANG PCTRS Active 02-04 [...] 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 Active 02-04 00:00: 00 GROUP HOME (CURRENT) USE OF ASPIRIN Active 02-04 00:00: 00 CUFF MAKER (CURRENT) USE OF ORAL HYPOGLYCEMIC DRUGS Active [...] 2-17 00:00: 00 01-20 23:59 :00 No [id number] 1 tablet BEDTIME 1 tablet BEDTIME (route: oral) Med Classific ation: Cardiovas cular Therapy Agents pantoprazol e 40 mg tablet,sonia yed release 2- 00:00: 00 01-23 00:00 :00 No [id number] 1 tablet DAILY 1 tablet DAILY (route: oral) Med Classific ation: Gastroint estinal Therapy Agents nitrofurant oin monohydrate /macrocryst als 100 mg capsule 2-13 00:00: 00 11-01 23:59 :00 No [id number] 1 capsule TWICE A DAY FOR UTI FOR 10 DAYS 1 capsule TWICE A DAY FOR UTI FOR 10 DAYS (route: oral) Med Classific ation: Genitouri nary Therapy metformin 1,000 mg tablet - 00:00: 00 01-20 23:59 :00 No [id number] 1 tablet TWICE A DAY DIRECTED 1 tablet TWICE A DAY DIRECTED (route: oral) Med Classific ation: Endocrine amlodipine 10 mg tablet 11-15 00:00: 00 01-20 23:59 :00 No [id number] 1 tablet DAILY 1 tablet DAILY (route: oral) Med Classific ation: Cardiovas cular Therapy Agents ascorbic acid (vitamin C) 1,000 mg capsule 11-15 00:00: 00 01-20 23:59 :00 No [id number] 1 capsule DAILY 1 capsule DAILY (route: oral) Med Classific ation: Electroly te Balance-N utritiona l Products Aspirin Childrens 81 mg chewable tablet 11-15 00:00: 00 01-20 23:59 :00 No [id number] 1 tablet DAILY 1 tablet DAILY (route: oral) Med Classific ation: Hematolog ical Agents carvedilol 25 mg tablet - 00:00: 00 01-20 23:59 :00 No [id number] 1 tablet 2 TIMES DAILY 1 tablet 2 TIMES DAILY (route: oral) Med Classific ation: Cardiovas cular Therapy Agents citalopram 20 mg tablet - 00:00: 00 01-20 23:59 :00 No [id number] 1 tablet DAILY 1 tablet DAILY (route: oral) Med Classific ation: Central Nervous System Agents cyclobenzap rine 5 mg tablet 11-15 00:00: 00 01-20 23:59 :00 No [id number] 1 tablet BEDTIME 1 tablet BEDTIME (route: oral) Med Classific ation: Locomotor System duloxetine 60 mg capsule,del ayed release 11-15 00:00: 00 01-20 23:59 :00 No [id number] 1 capsule DAILY 1 capsule DAILY (route: oral) Med Classific ation: Central Nervous System Agents famotidine 40 mg tablet 11-15 00:00: 00 01-20 23:59 :00 No [id number] 1 tablet BEDTIME 1 tablet BEDTIME (route: oral) Med Classific ation: Gastroint estinal Therapy Agents ferrous sulfate 325 mg (65 mg iron) tablet 11-15 00:00: 00 01-20 23:59 :00 No [id number] 1 tablet DAILY 1 tablet DAILY (route: oral) Med Classific ation: Electroly te Balance-N utritiona l Products furosemide 40 mg tablet 11-15 00:00: 00 12-24 23:59 :00 No [id number] 1 tablet DAILY 1 tablet DAILY (route: oral) Med Classific ation: Cardiovas cular Therapy Agents hydralazine 25 mg tablet 11-15 00:00: 00 12-24 23:59 :00 No [id number] 1 tablet 3 TIMES DAILY 1 tablet 3 TIMES DAILY (route: oral) Med Classific ation: Cardiovas cular Therapy Agents Imbruvica 420 mg tablet 11-15 00:00: 00 01-20 23:59 :00 No [id number] 1 tablet DAILY 1 tablet DAILY (route: oral) Med Classific ation: Antineopl astics Imbruvica 420 mg tablet 11-15 00:00: 00 12-24 00:00 :00 No [id number] 1 tablet DAILY 1 tablet DAILY (route: oral) Med Classific ation: Antineopl astics Januvia 100 mg tablet 11-15 00:00: 00 12-24 23:59 :00 No [id number] 1 tablet DAILY 1 tablet DAILY (route: oral) Med Classific ation: Endocrine pregabalin 150 mg capsule 09 00:00: 00 01-20 23:59 :00 No [id number] 1 capsule 2 TIMES DAILY 1 capsule 2 TIMES DAILY (route: oral) Med Classific ation: Central Nervous System Agents Senna Lax 8.6 mg tablet 11-15 00:00: 00 01-20 23:59 :00 No [id number] 2 tablet BEDTIME 2 tablet BEDTIME (route: oral) Med Classific ation: Gastroint estinal Therapy Agents solifenacin 5 mg tablet 11-15 00:00: 00 01-23 00:00 :00 No [id number] 1 tablet DAILY 1 tablet DAILY (route: oral) Med Classific ation: Genitouri nary Therapy spironolact one 25 mg tablet 11-15 00:00: 00 01-20 23:59 :00 No [id number] 1 tablet DAILY 1 tablet DAILY (route: oral) Med Classific ation: Cardiovas cular Therapy Agents sulindac 150 mg tablet 11-15 00:00: 00 01-23 00:00 :00 No [id number] 1 tablet 2 TIMES DAILY 1 tablet 2 TIMES DAILY (route: oral) Med Classific ation: Analgesic , Anti-infl ammatory or Antipyret ic nitrofurant oin macrocrysta l 100 mg capsule 3-24 00:00: 00 12-24 23:59 :00 No [id number] 1 capsule 2 TIMES DAILY 1 capsule 2 TIMES DAILY (route: oral) Med Classific ation: Genitouri nary Therapy Macrobid 100 mg capsule 4-10 00:00: 00 12-24 23:59 :00 No [id number] 100 mg 2 TIMES DAILY 100 mg 2 TIMES DAILY (route: oral) Med Classific ation: Genitouri nary Therapy cefpodoxime 100 mg tablet 4-16 00:00: 00 12-25 23:59 :00 No [id number] 1 tablet 2 TIMES DAILY 1 tablet 2 TIMES DAILY (route: oral) Med Classific ation: Anti-Infe ctive Agents Citracal-D3 Maximum Plus 325 mg-12.5 mcg-2.75 mg tablet 12-24 00:00: 00 01-20 23:59 :00 No [id number] 1 tablet EVERY AM 1 tablet EVERY AM (route: oral) Med Classific ation: Electroly te Balance-N utritiona l Products magnesium oxide 500 mg capsule 12-24 00:00: 00 01-23 00:00 :00 No [id number] 1 capsule EVERY PM 1 capsule EVERY PM (route: oral) Med Classific ation: Electroly te Balance-N utritiona l Products Multiple Vitamins tablet 12-24 00:00: 00 01-20 23:59 :00 No [id number] 1 tablet EVERY AM 1 tablet EVERY AM (route: oral) Med Classific ation: Electroly te Balance-N utritiona l Products acetaminoph en 325 mg tablet 01-23 00:00: 00 01-20 23:59 :00 No [id number] 2 tablet EVERY 6 HOURS 2 tablet EVERY 6 HOURS (route: oral) Med Classific ation: Analgesic , Anti-infl ammatory or Antipyret ic coenzyme Q10 100 mg capsule 01-23 00:00: 00 01-20 23:59 :00 No [id number] 1 capsule BEDTIME 1 capsule BEDTIME (route: oral) Med Classific ation: Alternati ve Therapy docusate sodium 100 mg capsule 01-22 00:00: 00 01-20 23:59 :00 No [id number] 1 capsule 2 TIMES DAILY 1 capsule 2 TIMES DAILY (route: oral) Med Classific ation: Gastroint estinal Therapy Agents enoxaparin 40 mg/0.4 mL subcutaneou s syringe 01-23 00:00: 00 02-07 23:59 :00 No [id number] 0.4 mL DAILY 0.4 mL DAILY (route: subcutaneo us) Med Classific ation: Hematolog ical Agents furosemide 20 mg tablet 01-22 00:00: 00 01-20 23:59 :00 No [id number] 1 tablet DAILY 1 tablet DAILY (route: oral) Med Classific ation: Cardiovas cular Therapy Agents magnesium oxide 400 mg (241.3 mg magnesium) tablet 01-23 00:00: 00 01-20 23:59 :00 No [id number] 1 tablet BEDTIME 1 tablet BEDTIME (route: oral) Med Classific ation: Electroly te Balance-N utritiona l Products omeprazole 20 mg tablet,sonia yed release 01-22 00:00: 00 01-20 23:59 :00 No [id number] 1 tablet DAILY 1 tablet DAILY (route: oral) Med Classific ation: Gastroint estinal Therapy Agents oxycodone 5 mg tablet 01-22 00:00: 00 01-20 23:59 :00 No [id number] 1 tablet EVERY 4 HOURS 1 tablet EVERY 4 HOURS (route: oral) Med Classific ation: Analgesic , Anti-infl ammatory or Antipyret ic oxycodone ER 10 mg tablet,vanda h resistant,e xtended release 12 hr 01-23 00:00: 00 01-20 23:59 :00 No [id number] 1 tablet EVERY 12 HOURS 1 tablet EVERY 12 HOURS (route: oral) Med Classific ation: Analgesic , Anti-infl ammatory or Antipyret ic polyethylen e glycol 3350 17 gram/dose oral powder 01-22 00:00: 00 01-20 23:59 :00 No [id number] 17 gram DAILY 17 gram DAILY (route: oral) Med Classific ation: Gastroint estinal Therapy Agents fluconazole 150 mg tablet 01-28 00:00: 00 01-20 23:59 :00 No [id number] 1 tablet DIRECTED 1 tablet DIRECTED (route: oral) Med Classific ation: Anti-Infe ctive Agents fluconazole 150 mg tablet 01-16 00:00: 00 02-04 23:59 :00 No [id number] Per instruc tions EVERY 3 DAYS FOR YEAST INFECTION FOR 6 DAYS Per instructio ns EVERY 3 DAYS FOR YEAST INFECTION FOR 6 DAYS (route: oral) Med Classific ation: Anti-Infe ctive Agents duloxetine 60 mg capsule,del ayed release 01-08 00:00: 00 Yes [id number] Per instruc tions EVERY DAY Per instructio ns EVERY DAY (route: oral) Med Classific ation: Central Nervous System Agents pantoprazol e 40 mg tablet,sonia yed release 01-07 00:00: 00 Yes [id number] Per instruc tions TWICE A DAY Per instructio ns TWICE A DAY (route: oral) Med Classific ation: Gastroint estinal Therapy Agents amlodipine 10 mg tablet 01-05 00:00: 00 02-04 23:59 :00 No [id number] Per instruc tions EVERY DAY Per instructio ns EVERY DAY (route: oral) Med Classific ation: Cardiovas cular Therapy Agents metformin 1,000 mg tablet 01-04 00:00: 00 02-04 23:59 :00 No [id number] Per instruc tions TWICE A DAY DIRECTED Per instructio ns TWICE A DAY DIRECTED (route: oral) Med Classific ation: Endocrine pregabalin 150 mg capsule 12-23 00:00: 00 Yes [id number] Per instruc tions 2 (TWO) TIMES A DAY Per instructio ns 2 (TWO) TIMES A DAY (route: oral) Med Classific ation: Central Nervous System Agents acetaminoph en 325 mg tablet 02-04 00:00: 00 Yes [id number] 1 tablet EVERY 6 HOURS 1 tablet EVERY 6 HOURS (route: oral) Med Classific ation: Analgesic , Anti-infl ammatory or Antipyret ic amiodarone 200 mg tablet 02-04 00:00: 00 02-12 23:59 :00 No [id number] 1 tablet 2 TIMES DAILY 1 tablet 2 TIMES DAILY (route: oral) Med Classific ation: Cardiovas cular Therapy Agents amlodipine 5 mg tablet 02-04 00:00: 00 Yes [id number] 1 tablet DAILY 1 tablet DAILY (route: oral) Med Classific ation: Cardiovas cular Therapy Agents ascorbic acid (vitamin C) 500 mg tablet 02-04 00:00: 00 Yes [id number] 1 tablet 2 TIMES DAILY 1 tablet 2 TIMES DAILY (route: oral) Med Classific ation: Electroly te Balance-N utritiona l Products aspirin 81 mg tablet,sonia yed release 02-04 00:00: 00 Yes [id number] 1 tablet DAILY 1 tablet DAILY (route: oral) Med Classific ation: Hematolog ical Agents atorvastati n 80 mg tablet 02-04 00:00: 00 Yes [id number] 1 tablet DIRECTED 1 tablet DIRECTED (route: oral) Med Classific ation: Cardiovas cular Therapy Agents cholecalcif tiera (vitamin D3) 10 mcg (400 unit) capsule 02-04 00:00: 00 Yes [id number] 1 capsule DAILY 1 capsule DAILY (route: oral) Med Classific ation: Electroly te Balance-N utritiona l Products citalopram 20 mg tablet 02-04 00:00: 00 Yes [id number] 1 tablet DAILY 1 tablet DAILY (route: oral) Med Classific ation: Central Nervous System Agents furosemide 40 mg tablet 02-04 00:00: 00 02-12 23:59 :00 No [id number] 1 tablet 2 TIMES DAILY 1 tablet 2 TIMES DAILY (route: oral) Med Classific ation: Cardiovas cular Therapy Agents Humalog KwikPen (U-100) Insulin 100 unit/mL subcutaneou s 02-04 00:00: 00 Yes [id number] Per instruc tions DIRECTED Per instructio ns DIRECTED (route: subcutaneo us) Med Classific ation: Endocrine Imbruvica 140 mg tablet 02-04 00:00: 00 Yes [id number] 1 tablet DAILY 1 tablet DAILY (route: oral) Med Classific ation: Antineopl astics insulin glargine (U-100) 100 unit/mL (3 mL) subcutaneou s pen 02-04 00:00: 00 Yes [id number] 19 unit DIRECTED 19 unit DIRECTED (route: subcutaneo us) Med Classific ation: Endocrine insulin lispro (U-100) 100 unit/mL subcutaneou s pen 02-04 00:00: 00 Yes [id number] 8 unit DIRECTED 8 unit DIRECTED (route: subcutaneo us) Med Classific ation: Endocrine metformin 500 mg tablet 02-04 00:00: 00 Yes [id number] 1 tablet 2 TIMES DAILY 1 tablet 2 TIMES DAILY (route: oral) Med Classific ation: Endocrine metoprolol succinate ER 25 mg tablet,exte nded release 24 hr 02-04 00:00: 00 Yes [id number] Per instruc tions DAILY Per instructio ns DAILY (route: oral) Med Classific ation: Cardiovas cular Therapy Agents Aldactone 25 mg tablet 02-16 00:00: 00 Yes [id number] 25 mg DAILY 25 mg DAILY (route: [...] DRY CLEAN GAUZE, LEAVE OPEN TO AIR. PATIENT/HSE MANAGER WILL PERFORM THIS TWICE DAILY BETWEEN NURSING [...] DRY CLEAN GAUZE, LEAVE OPEN TO AIR. PATIENT/HSE MANAGER WILL PERFORM THIS TWICE DAILY BETWEEN NURSING [...] Date/Time Encounter Type Admission Type Attending [facility] Care Department Encounter ID Discharge Date Discharge Status Discharge Condition Discharge Reason Percent Goals Met 2024-02-05 00:00:00 2024-03-04 00:00:00 Outpatient [facility] [id number] 2024-03-04 00:00:00 DISCHARGE TO HOME OR SELF CARE INDEPENDEN T IN THE COMMUNITY NO LONGER HOMEBOUND ( ONLY) 47.62
== END 2024-09-14 16:51 | disposition home or self-care (01) ==
PROVIDERS: PCP Family Medicine; Visit Provider Nurse Practitioner Family
DX: Z01.818 Encounter for other preprocedural examination (principal); Z12.11 Encounter for screening for malignant neoplasm of colon; K58.9 Irritable bowel syndrome, unspecified; K21.9 Gastro-esophageal reflux disease without esophagitis
CPT/HCPCS: 99024

== ENCOUNTER → 2024-09-14 14:24 | Outpatient (BNVA) | payer MEDICARE, OTHER, SELFPAY | PROVIDERS: PCP Family Medicine; Visit Provider Nurse Practitioner Family | DX: Z12.11 Encounter for screening for malignant neoplasm of colon (principal); K21.9 Gastro-esophageal reflux disease without esophagitis; K58.9 Irritable bowel syndrome, unspecified; R11.0 Nausea | CPT/HCPCS: 99212 ==

== ENCOUNTER 2024-09-15 13:56 | Outpatient (AMB) | payer MEDICARE, OTHER, SELFPAY ==
--- NOTE | 2024-09-15 14:00 | A.OFFVIS_ITS ---
Vital Signs 09/15/24 14:01 Height 5 ft 5 in Weight 200 lb 9.93 oz BMI 33.4 BP 140/56 H Blood Pressure Location Lt brachial Position Sitting Pulse 57 Intake Visit Reasons: 4m follow up/Preop L ANGELICA Revision Loss Prevention Consultant Required: No Accompanied by: Spouse Allergies amoxicillin [AMOXICILLIN] Allergy (Severe, Verified 09/14/24 14:25) stroke, blood clots ciprofloxacin [From CIPRO] Allergy (Severe, Verified 09/14/24 14:25) ANAPHYLAXIS Iodinated Contrast Media [IV DYE, IODINE CONTAINING CONTRAST ] Allergy (Severe, Verified 09/14/24 14:25) HIVES levofloxacin Allergy (Severe, Verified 09/14/24 14:25) Anaphylaxis liraglutide Allergy (Severe, Verified 09/14/24 14:25) Headache Penicillins Allergy (Severe, Verified 09/14/24 14:25) stroke, blood clots phenazopyridine [Pyridium] Allergy (Severe, Verified 09/14/24 14:25) Anaphylaxis FREYA Inhibitors Allergy (Intermediate, Verified 09/14/24 14:25) Cough ARB-Angiotensin Receptor Antagonist Allergy (Intermediate, Verified 09/14/24 14:25) Cough cefpodoxime Allergy (Intermediate, Verified 09/14/24 14:25) Dizziness, nausea doxazosin Allergy (Intermediate, Verified 09/14/24 14:25) Shortness of Breath fluticasone [Advair Diskus] Allergy (Intermediate, Verified 09/14/24 14:25) Anxiety gabapentin [From Neurontin] Allergy (Intermediate, Verified 09/14/24 14:25) Headache hydralazine Allergy (Intermediate, Verified 09/14/24 14:25) Shortness of Breath latex Allergy (Intermediate, Verified 09/14/24 14:25) Hives linezolid Allergy (Intermediate, Verified 09/14/24 14:25) Nausea and Vomiting meloxicam Allergy (Intermediate, Verified 09/14/24 14:25) Unknown salmeterol [Advair Diskus] Allergy (Intermediate, Verified 09/14/24 14:25) Anxiety Tetanus Vaccines and Toxoid Allergy (Intermediate, Verified 09/14/24 14:25) Swelling torsemide Allergy (Intermediate, Verified 09/14/24 14:25) Shortness of Breath cephalexin [Keflex] Allergy (Mild, Verified 09/14/24 14:25) Nausea Medication List - Last Reconciled 09/15/24 by Gerardo Agustin MD acetaminophen 650 mg (2 x 325 mg) PO Q6H PRN 30 days amlodipine 10 mg PO DAILY ascorbic acid (vitamin C) 1,000 mg PO DAILY 90 days aspirin (Enteric Coated Aspirin) 81 mg PO DAILY atorvastatin 80 mg PO QPM bisacodyl (Dulcolax (bisacodyl)) 20 mg (4 x 5 mg) PO ONCE 1 day blood sugar diagnostic (Accu-Chek Guide test strips) As directed carvedilol 25 mg PO BID celecoxib 200 mg PO BID 30 days citalopram 20 mg PO DAILY coenzyme Q10 (CoQ-10) 100 mg PO BEDTIME duloxetine 60 mg PO DAILY esomeprazole magnesium (Nexium) 40 mg PO BID famotidine 40 mg PO BEDTIME ferrous sulfate (iron) 325 mg PO DAILY furosemide 20 mg PO DAILY ibrutinib (Imbruvica) 420 mg PO DAILY magnesium 250 mg PO BEDTIME mastectomy bra (bra, mastectomy) As Directed mastectomy bra (bra, mastectomy) As Directed metformin 1,000 mg PO BID multivitamin 1 tab PO DAILY ondansetron 4 mg PO Q6H PRN oxybutynin chloride 5 mg PO BID PRN polyethylene glycol 3350 (Miralax) 238 grams PO ONCE pregabalin 150 mg PO BID spironolactone 25 mg PO DAILY sulfamethoxazole-trimethoprim 400-80 mg/5 mL 18.6875 mL IV BID 14 days HPI Comments Details: Kaitlin returns for follow-up regarding coronary disease. She has got an extensive risk factor profile including obesity, sedentary lifestyle, diabetes, hypertension, dyslipidemia among others. She also has chronic lymphocytic leukemia on ibrutinib. She was supposed to go for hip surgery. In that context, she underwent further workup leading to a diagnostic catheterization showing multivessel CAD. That led to coronary artery bypass surgery. For the most part, she is doing well. Deconditioning related to her comorbidities but otherwise getting along fine. [facility] Medical History Osteoarthritis Morbid obesity Allergy to multiple antibiotics Depression Arthritis of left hip Wears dentures Neurogenic urinary bladder disorder History of blood transfusion History of CVA (cerebrovascular accident) Seasonal allergies History of numbness PONV (postoperative nausea and vomiting) Self-catheterizes urinary bladder Diabetes with neurologic complications Type 2 diabetes mellitus with unspecified complications Anemia CLL (chronic lymphocytic leukemia) Sleep apnea Diabetes mellitus CLL (chronic lymphocytic leukemia) Arthritis Fibromyalgia Hypercholesterolemia Hypertension History of bilateral breast cancer Urinary retention with incomplete bladder emptying Surgical History History of open heart surgery (~01/31/24) History of total left hip replacement S/P Botox injection History of suprapubic catheter S/P left breast biopsy History of esophagogastroduodenoscopy (EGD) Hx of colonoscopy History of bladder repair surgery History of total hysterectomy S/P breast biopsy, right History of back surgery History of biopsy of bladder Family History Mother Breast cancer Father Heart disease Father Lung cancer Mother Colon cancer Brother Pancreatic cancer Social History Household Members: Spouse Housing: House Are you a primary inpatient care manager rn to a significant other at home: No Do you presently have visiting nurse or other home services: Yes Alcohol intake: never Comment: patient refused telesiter,removed per pt request Patient Tobacco Use Status: Never used Tobacco Advance Directives Date on File: 07/30/23 service: No Current occupational status: retired Female Reproductive History Menstrual Age of Menarche: 15 Review of Systems Const Denies chills, Denies fatigue, Denies fever(s), Denies weight gain and Denies weight loss ENT Denies dizziness Card Denies chest pain, Denies leg edema, Denies lightheadedness, Denies palpitations, Denies dyspnea on exertion, Denies orthopnea and Denies other Resp Denies cough and Denies dyspnea on exertion GI Denies hematochezia and Denies change in stool character Musc Denies abnormal gait, Denies muscle weakness, Denies numbness, Denies radiating pain into limb and Denies tingling Neuro Denies abnormal gait, Denies dizziness, Denies numbness and Denies tingling Endo Denies fatigue and Denies palpitations Physical Exam Vital Signs: Last Vital Signs Pulse 57 09/15/24 14:01 BP 140/56 H 09/15/24 14:01 BMI result Body Mass Index 33.4 Const General: comfortable and no acute distress Orientation/consciousness: patient oriented x3 HEENT Other: Unremarkable Head: Yes normal to inspection Neck Neck: Yes normal visual inspection Chest Chest palpation & inspection: normal inspection of the chest Resp Auscultation: clear to auscultation bilaterally Cardio Palpation: normal PMI Heart sounds: S1 normal heart sound present, S2 normal heart sound present, no gallops, Murmur heart sound present systolic II/ and at the right sternal border and no rubs GI Palpation (GI): Soft to palpation Back/Spine/Pelvis Other: unremarkable Skin General skin exam: no rashes or lesions noted Neuro General: patient oriented x3 Extrem General: Yes normal to inspection Psych Mental Status: mental status grossly normal Office Procedures EKG Details: EKG with sinus bradycardia at 57/Min; leftward axis; nonspecific intraventricular conduction defect; [place] [address]-Nncfcbapoldmrxznn, Complete Assessment & Plan Assessment & Plan (1) Atherosclerotic cardiovascular disease: Code(s): I25.10 - Atherosclerotic heart disease of [place] coronary artery without angina pectoris Category: Medical Plan: Cardiac catheterization with multivessel CAD including ANIMAL CARE SPECIALIST of the dominant right coronary artery. Now status post bypass surgery. Continue aspirin and statins. (2) Status post aorto-coronary artery bypass graft: Code(s): Z95.1 - Presence of aortocoronary bypass graft Category: Surgical Plan: Recovering well. No specific concerns. (3) PAF (paroxysmal atrial fibrillation): Code(s): I48.0 - Paroxysmal atrial fibrillation Category: Medical Plan: Per discharge summary, had postoperative atrial fibrillation after bypass surgery. She was given amiodarone but not on it anymore. In the recent Holter, no evidence of recurrent atrial fibrillation. (4) Non-rheumatic aortic stenosis: Code(s): I35.0 - Nonrheumatic aortic (valve) stenosis Category: Medical Plan: In the recent echocardiogram, mild aortic stenosis/regurgitation. Not hemodynamically significant. Can be followed. (5) Type 2 diabetes mellitus with unspecified complications: Code(s): E11.8 - Type 2 diabetes mellitus with unspecified complications Category: Medical Plan: On metformin. Last hemoglobin A1c 6%. (6) Essential hypertension: Code(s): I10 - Essential (primary) hypertension Category: Medical Plan: Borderline high blood pressure. She may continue the carvedilol and amlodipine. Also on spironolactone. Of note, she also has numerous medication allergies including FREYA inhibitors, ARB, doxazosin, hydralazine. Overall, not too much of options. (7) Hyperlipidemia, unspecified: Code(s): E78.5 - Hyperlipidemia, unspecified Category: Medical Plan: Stable. No changes. Last LDL 66 mg/dL. (8) Preoperative cardiovascular examination: Code(s): Z01.810 - Encounter for preprocedural cardiovascular examination Category: Medical Plan: Per patient, still awaiting hip surgery as well as colonoscopy. Intermediate cardiac risk. Coding Level of Care Code Est Pt Level 4 (44350) Diagnoses Atherosclerotic cardiovascular disease I25.10 Status post aorto-coronary artery bypass graft Z95.1 PAF (paroxysmal atrial fibrillation) I48.0 Non-rheumatic aortic stenosis I35.0 Type 2 diabetes mellitus with unspecified complications E11.8 Essential hypertension I10 Hyperlipidemia, unspecified E78.5 Preoperative cardiovascular examination Z01.810 CPT Codes EKG - CPT: 20080-Rhmcrrftluqtiujsx, Complete ([id number])
[2024-09-15 14:01] VITALS: BP 140/56; PULSE 57; BMI 33.4
== END 2024-09-15 14:31 | disposition home or self-care (01) ==
PROVIDERS: PCP Family Medicine; Visit Provider Internal Medicine
DX: I25.10 Atherosclerotic heart disease of native coronary artery without angina pectoris (principal); Z95.1 Presence of aortocoronary bypass graft; I48.0 Paroxysmal atrial fibrillation; I35.0 Nonrheumatic aortic (valve) stenosis; E11.8 Type 2 diabetes mellitus with unspecified complications; I10 Essential (primary) hypertension; E78.5 Hyperlipidemia, unspecified; Z01.810 Encounter for preprocedural cardiovascular examination
CPT/HCPCS: 93010; 99214

== ENCOUNTER → 2024-09-15 13:56 | Outpatient (BNVA) | payer MEDICARE, OTHER, SELFPAY | PROVIDERS: PCP Family Medicine; Visit Provider Internal Medicine | DX: Z01.810 Encounter for preprocedural cardiovascular examination (principal); E66.9 Obesity, unspecified; I25.10 Atherosclerotic heart disease of native coronary artery without angina pectoris; I48.0 Paroxysmal atrial fibrillation; I35.0 Nonrheumatic aortic (valve) stenosis; E11.8 Type 2 diabetes mellitus with unspecified complications; I10 Essential (primary) hypertension; E78.5 Hyperlipidemia, unspecified; Z95.1 Presence of aortocoronary bypass graft; Z68.33 Body mass index [BMI] 33.0-33.9, adult | CPT/HCPCS: 93005; 99212 ==

== ENCOUNTER 2024-09-23 09:45 | Outpatient (RCR) | payer MEDICARE, OTHER, SELFPAY ==
[2024-09-14 10:08] VITALS: BP 161/50; PULSE 62; RESP 20; TEMP 36.8; O2SAT 97
[2024-09-14] MEDS: Ertapenem Sodium 1 GM VIAL IVPUSH (10:32)
[2024-09-14] MEDS: Heparin Sodium,Porcine Flush 50 UNITS, 0.9 % Sodium Chloride Flush 5 ML IVFLUSH (10:39)
[2024-09-15 10:02] VITALS: BP 168/45; RESP 16; TEMP 36.9; O2SAT 97
[2024-09-15] MEDS: 0.9 % Sodium Chloride Flush 10 ML SYRINGE 5 ML IVFLUSH (10:05)
[2024-09-15] MEDS: Ertapenem Sodium 1 GM VIAL IVPUSH (10:07)
[2024-09-15] MEDS: Heparin Sodium,Porcine Flush 50 UNITS, 0.9 % Sodium Chloride Flush 5 ML IVFLUSH (10:13)
[2024-09-16 10:10] VITALS: BP 155/55; PULSE 58; RESP 16; TEMP 36.6; O2SAT 97
[2024-09-16] MEDS: 0.9 % Sodium Chloride Flush 10 ML SYRINGE 5 ML IVFLUSH (10:12)
[2024-09-16] MEDS: Ertapenem Sodium 1 GM VIAL IVPUSH (10:13)
[2024-09-16] MEDS: Heparin Sodium,Porcine Flush 50 UNITS, 0.9 % Sodium Chloride Flush 5 ML IVFLUSH (10:19)
[2024-09-17 09:59] VITALS: BP 149/54; PULSE 56; RESP 18; TEMP 36.1
[2024-09-17] MEDS: Ertapenem Sodium 1 GM VIAL IVPUSH (10:33)
[2024-09-17] MEDS: Heparin Sodium,Porcine Flush 50 UNITS, 0.9 % Sodium Chloride Flush 5 ML IVFLUSH (10:39)
[2024-09-18 10:28] VITALS: BP 140/49; PULSE 56; RESP 20; TEMP 36.3; O2SAT 97
[2024-09-18] MEDS: Ertapenem Sodium 1 GM VIAL IVPUSH (10:33)
[2024-09-18] MEDS: Heparin Sodium,Porcine Flush 50 UNITS, 0.9 % Sodium Chloride Flush 5 ML IVFLUSH (10:39)
[2024-09-19 10:01] VITALS: BP 167/42; PULSE 59; RESP 16; TEMP 37; O2SAT 96
[2024-09-19 10:05] VITALS: BP 167/42; PULSE 59; RESP 18; TEMP 37.1; O2SAT 99
[2024-09-19] MEDS: Ertapenem Sodium 1 GM VIAL IVPUSH (10:13)
[2024-09-19] MEDS: 0.9 % Sodium Chloride Flush 10 ML SYRINGE 5 ML IVFLUSH (10:20)
[2024-09-19] MEDS: Heparin Sodium,Porcine Flush 50 UNITS, 0.9 % Sodium Chloride Flush 5 ML IVFLUSH (10:21)
[2024-09-20 09:56] VITALS: BP 152/45; PULSE 60; RESP 18; TEMP 36.2; O2SAT 97
[2024-09-20] MEDS: Ertapenem Sodium 1 GM VIAL IVPUSH (10:00)
[2024-09-21 09:59] VITALS: BP 150/47; PULSE 59; RESP 16; TEMP 36.5; O2SAT 98
[2024-09-21] MEDS: Ertapenem Sodium 1 GM VIAL IVPUSH (10:19)
[2024-09-21] MEDS: Heparin Sodium,Porcine Flush 50 UNITS, 0.9 % Sodium Chloride Flush 5 ML IVFLUSH (10:25)
[2024-09-22 10:04] VITALS: BP 158/51; PULSE 59; RESP 16; TEMP 36.4; O2SAT 96
[2024-09-22] MEDS: 0.9 % Sodium Chloride Flush 10 ML SYRINGE 5 ML IVFLUSH (10:11)
[2024-09-22] MEDS: Ertapenem Sodium 1 GM VIAL IVPUSH (10:11)
[2024-09-22] MEDS: Heparin Sodium,Porcine Flush 50 UNITS, 0.9 % Sodium Chloride Flush 5 ML IVFLUSH (10:19)
[2024-09-23 10:02] VITALS: BP 150/40; PULSE 58; RESP 20; TEMP 36.8; O2SAT 97
[2024-09-23] MEDS: 0.9 % Sodium Chloride Flush 10 ML SYRINGE 5 ML IVFLUSH (10:04)
[2024-09-23] MEDS: Ertapenem Sodium 1 GM VIAL IVPUSH (10:06)
== END 2024-09-23 10:21 | disposition home or self-care (01) ==
LOC: HO.INF 09:45
PROVIDERS: PCP Family Medicine; Visit Provider Nurse Practitioner Family
DX: N39.0 Urinary tract infection, site not specified (principal)
CPT/HCPCS: 96374; J1335; J1642

== ENCOUNTER → 2024-10-02 12:59 | Outpatient (BNVA) | payer MEDICARE, OTHER, SELFPAY | PROVIDERS: PCP Family Medicine; Visit Provider Urology | DX: N31.9 Neuromuscular dysfunction of bladder, unspecified (principal) | CPT/HCPCS: 51705 ==

== ENCOUNTER 2024-10-20 12:22 | Outpatient (REF) | payer MEDICARE, OTHER, SELFPAY ==
--- OUTSIDE RECORDS SUMMARY | 2024-10-20 13:34 | XMS_ITS | Clinical Summary ---
Author Organization [facility] Facility Address [address] [address] Care Team Providers Care Ornamental Ironworker Helper Name Role Phone Ricardo Breen MD Primary Care Provider [phone] Medications spironolactone (ALDACTONE) 25 MG tablet TAKE 1 TABLET BY MOUTH EVERY DAY 90 tablet 5 04/19/2021 Active Family History Medical History Relation Comments Gout Child son Cancer Father Heart disease Father Hypertension Father Cancer Mother Hypertension Mother Kidney disease Mother Cancer Sibling brother Relation Status Comments Child Father Mother Sibling Social History Tobacco Use Types Packs/Day Years Used Date Smoking Tobacco: Never Alcohol Use Standard Drinks/Week Comments No 0 (1 standard drink = 0.6 oz pur e alcohol) Comments Unknown Sex and Gender Information Value Date Recorded Sex Assigned at Not on file Legal Sex Female 5:11 PM EST Gender Identity Not on file Sexual Orientation Not on file Plan of Treatment Health Maintenance Due Date Last Done Comments Pneumococcal Vaccine: 65+ Ye ars (2 of 2 - PCV) 11/10/2014 11/10/2013 Influenza Vaccine (#1) 2024 Hepatitis B Vaccine Aged Out No longe r eligible based on patient's age to complete this topic Care Teams Ornamental Ironworker Helper Relationship Specialty Start Date End Date Ricardo Breen MD [address] [place] [address] DR [address] [place], [place] PCP - General 09/19/20
== END 2024-10-20 12:23 | disposition home or self-care (01) ==
LOC: HO.LNP 12:22
PROVIDERS: Visit Provider Urology
DX: R39.9 Unspecified symptoms and signs involving the genitourinary system (principal)
CPT/HCPCS: 87086; 87088; 87186

== ENCOUNTER → 2024-10-23 08:34 | Outpatient (BNVA) | payer MEDICARE, OTHER, SELFPAY | PROVIDERS: PCP Family Medicine | DX: Z43.5 Encounter for attention to cystostomy (principal) | CPT/HCPCS: 51705 ==

== ENCOUNTER 2024-10-27 09:06 | Outpatient (REF) | payer MEDICARE, OTHER, SELFPAY ==
--- OUTSIDE RECORDS SUMMARY | 2024-10-27 09:41 | XMS_ITS ---
Author Organization [facility] Address [address] [place] [address] Care Team Providers Care Health Service Worker Name Role Phone Ricardo Breen MD Primary Care Provider Unavailab Jeanette Bryson Unavailable [phone] Sylvia Nguyễn Unavailable [phone] Allergies Allergen (clinical drug ingredient) Drug/Non Drug [...] Active Encounters Encounter Location Date Provider Diagnosis [facility] [address] [address] 10/15/2024 Sylvia Nguyễn Plan Of Treatment Next Appt Details Provider Name:Jeanette arnold, 01/22/2025 11:15:00 AM, [address] [place] [address], [phone], Progress Notes * Kaitlin BROWN MDOB:[birth year] (79 yo F)Acc No.[id number]:10/15/2024 Progress Note Patient:?STEPHANIE Kaitlin Noel Provider:?Sylvia Nguyễn DPM :1945???Age:79 Y???Sex:Female D ate:10/15/2024 Address:[address] [place], [place] [id number] Pcp:Ricardo Breen MD Subjective: * Chief Complaints: * ???1. Dr Merino. * Medical History:?Arthritis, Asthma, Back,Hip,and Knee pain, Diverticulosis, Fibromyalgia, Hepatitis, Hiatal hernia, High blood pressure, Numbness, Neuropathy, Reflux ( GERD), Sciatica, Stroke, Measles, Mumps, Chicken pox, Transfusions, Chronic Lymphocytic Leukemia, type II diabetes. * Medications:?Taking Pregabal in 150 MG Capsule 1 capsule Orally Once [...] multi-density innersoles for 1 year Dx: * Allergies:?Cipro: anaphylact ic shock, Levaquin: anaphylactic shock, Adhesive Tape: rash, Amoxicillin: SOB, Morphine: vomiting, Iodinated Diagnostic Agents: hives, Penicillin: SOB, Latex: hives. Objective: * Vitals:? Assessment: Plan: * Treatment: * Images: * The named appointment provid er may or may not be the originator of this progress note, and it is not deemed complete until electronically signed by the appointment provider. Sign off status: Pending * Provider:?Sylvia Nguyễn DPM Date:?0 10/15/2024 Generated for Jeny ball/Chance/Pallavi on:?10/27/2024 09:41 AM EST
--- OUTSIDE RECORDS SUMMARY | 2024-10-27 09:42 | XMS_ITS | Patient Health Record ---
[facility] Organization [facility] Address [address] [place] [address] Care Team Providers Care X Ray Inspector Name Role Phone Jamshid RAUSCH, Ricardo Primary Care Provider Unavailab Jeanette Bryson Unavailable [phone] Prosper Henson Unavailable [phone] Sylvia Nguyễn Unavailable [phone] Allergies Allergen (clinical drug ingredient) Drug/Non Drug [...] Lab: Notes/Report: HEMOGLOBIN A1C % (HH) 5.7 HEMOGLOBIN A1C (GLYCOHEMOGLO BIN) Reviewed date:10/23/2024 11:11:56 AM Interpretation: Performing Lab: Notes/Report: HEMOGLOBIN A1C % (HH) 6.8 Reason For Referral No Information Medications Medication SIG (Take, Route, Frequency, Duration) Notes Start Date End Date Status Omeprazole 20 MG 1 capsule Orally Onc e a day Active Spironolactone 25 MG 1 tablet with food Orally Once a day Active Simvastatin 40 MG 1 tablet in the even ing Orally Once a day Active Vitamin D 1000 UNIT 1 tablet Orally Once a day Active Sulindac 150 MG 1 tablet with food Orally Twice a day Active Extra Depth Diabetic Shoes with 3 Pair Custom heat-molded multi-density innersoles for 1 year Dx: 12/05/2020 Active Medrol leyda 4mg as directed orally a s directed for 6 days 10/23/2024 Active Extra Depth Diabetic Shoes with 3 Pair Custom heat-molded multi-density innersoles for 1 year Dx: 04/23/2022 Active Victoza Not-Taking Voltaren 1 % as directed Externally Active Pregabalin 150 MG 1 capsule Orally Onc e a day Active Extra Depth Orthopedic Shoes (1 Pair) with Customized Heat Molded Multidensity Innersoles (3 Pair) as directed Dx: NIDDM/Polyneuropathy (E11.42), Hammertoe Foot Deformity (M20.41,M20.42), Preulcerative Skin Lesion(s) (L85.1 01/12/2019 Not-Taking Avinza Active Extra Depth Diabetic Shoes with 3 Pair Custom heat-molded multi-density innersoles for 1 year Dx: 02/19/2018 Not-Taking Carvedilol 25 MG Orally Act ricarda Calcium Active Extra Depth Orthopedic Shoes (1 Pair) with Customized Heat Molded Multidensity Innersoles (3 Pair) as directed Dx: NIDDM/Polyneuropathy (E11.42), Hammertoe Foot Deformity (M20.41,M20.42), Preulcerative Skin Lesion(s) (L85.1 10/23/2024 Active DULoxetine HCl 30 MG 1 capsule Orally On ce a day Active CeleXA 10 MG 1 tablet Orally Once a day Active Furosemide Active Flexeril Active Lorazepam prn Active Imbruvica Active Nifedical XL Active metFORMIN HCl Active Immunizations Vaccine Route Administration Date Status [...] Status W/U Status Risk Notes Problem Acquired hammer toe of right foot (1969011558368023 ) Other hammer toe(s) (acquired), right foot (M20.41) Active confirmed Problem Acquired hallux valgus (47587656) Hallux valgus (acquired), left foot (M20.12) Active confirmed Problem Acquired hammer toe of left foot (3819375026487271 ) Other hammer toe(s) (acquired), left foot (M20.42) Active confirmed Problem Polyneuropathy due to diabetes mellitus type I (386465628) Type 1 diabetes mellitus with diabetic polyneuropathy (E10.42) Active confirmed Problem Polyneuropathy due to type 2 diabetes mellitus (589780751) Type 2 diabetes mellitus with diabetic polyneuropathy (E11.42) Active confirmed Problem Localized, primary osteoarthritis of the ankle and/or foot (317192361) Primary osteoarthritis, left ankle and foot (M19.072) Active confirmed Problem Acquired hallux rigidus (0018304) Hallux rigidus, left foot (M20.22) Active confirmed Problem Non-pressure chronic ulcer of other part of left foot limited to breakdown of skin (L97.521) Active confirmed Problem Non-pressure chronic ulcer of other part of right foot limited to breakdown of skin (L97.511) Active confirmed Problem Polyneuropathy due to type 2 diabetes mellitus (503480979) Type 2 diabetes mellitus with diabetic polyneuropathy (E11.42) Active confirmed Problem Polyneuropathy due to diabetes mellitus type I (345673629) Type 1 diabetes mellitus with diabetic polyneuropathy (E10.42) Active confirmed Problem Idiopathic gout (66355818) Acute idiopathic gout of right foot (M10.071) Active confirmed Vital Signs Blood pressure diastolic 60 mm Hg 10/23/2024 Height 5 ft 4 in in 10/23/2024 Blood pressure systolic 142 mm Hg 10/23/2024 Weight 195 lbs 10/23/2024 BMI 33.47 kg/m2 10/23/2024 Procedures Procedure Date Ordered Date Performed Result Body Sit e 48974-YSXBEXA NAIL, 6 OR MORE 07/16/2024 N/A 68298-HITA SKIN LESIONS, 2 TO 4 07/16/2024 N/A Encounters Encounter Location Date Provider Diagnosis [address] [address] 11/06/2023 Prosper Henson Type 2 diabetes mellitus with diabetic polyneuropathy E11.42 ; Tinea unguium B35.1 ; Pain in left foot M79.672 ; Primary osteoarthritis, left ankle and foot M19.072 ; Pain in left toe(s) M79.675 ; Pain in right toe(s) M79.674 ; Hallux rigidus, left foot M20.22 ; Hallux valgus (acquired), left foot M20.12 and Localized edema R60.[address] [address] 04/16/2024 Prosper Henson Type 2 diabetes mellitus with diabetic polyneuropathy E11.42 ; Tinea unguium B35.1 ; Pain in left foot M79.672 ; Primary osteoarthritis, left ankle and foot M19.072 ; Pain in left toe(s) M79.675 ; Pain in right toe(s) M79.674 ; Hallux rigidus, left foot M20.22 ; Hallux valgus (acquired), left foot M20.12 and Localized edema R60.[address] [address] 07/16/2024 Sylvia Gopi Type 2 diabetes mellitus with diabetic polyneuropathy E11.42 and Tinea unguium B35.[address] [address] 10/23/2024 Jeanette Messer Type 2 diabetes mellitus with diabetic polyneuropathy E11.42 ; 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 ; Tinea unguium B35.1 ; Pain in right ankle and joints of right foot M25.571 ; Other hammer toe(s) (acquired), right foot M20.41 ; Other hammer toe(s) (acquired), left foot M20.42 and Local edema R60.[address] [address] 01/31/2024 Prosper Henson [address] [address] 10/14/2024 Sylvia Nguyễn Assessments Encounter Date Diagnosis (ICD Code) Assessment Notes Treatment Notes Treatment Clinical Notes Section Notes 11/06/2023 Type 2 diabetes mellitus with diabetic polyneuropathy (ICD-10 - E11.42) 04/16/2024 Type 2 diabetes mellitus with diabetic polyneuropathy (ICD-10 - E11.42) 07/16/2024 Type 2 diabetes mellitus with diabetic polyneuropathy (ICD-10 - E11.42) 07/16/2024 Tinea unguium (ICD-10 - B35.1) 10/23/2024 Type 2 diabetes mellitus with diabetic polyneuropathy (ICD-10 - E11.42) 10/23/2024 Acute idiopathic gout of right foot (ICD-10 - M10.071) Patient Educated with: GOUT.pdf (GOUT.pdf) Patient Educated with: LOW PURINE DIET.pdf (LOW PURINE DIET.pdf) 10/23/2024 Tinea unguium (ICD-10 - B35.1) 04/16/2024 Tinea unguium (ICD-10 - B35.1) 11/06/2023 Tinea unguium (ICD-10 - B35.1) 11/06/2023 Pain in left foot (ICD-10 - M79.672) 04/16/2024 Pain in left foot (ICD-10 - M79.672) 10/23/2024 Pain in right ankle and joints of right foot (ICD-10 - M25.571) 10/23/2024 Other hammer toe(s) (acquired), right foot (ICD-10 - M20.41) Patient Educated with: DIABETIC FOOT CARE INSTRUCTIONS. pdf (DIABETIC FOOT CARE INSTRUCTIONS. pdf) 04/16/2024 Primary osteoarthritis, left ankle and foot (ICD-10 - M19.072) 11/06/2023 Primary osteoarthritis, left ankle and foot (ICD-10 - M19.072) 11/06/2023 Pain in left toe(s) (ICD-10 - M79.675) 10/23/2024 Other hammer toe(s) (acquired), left foot (ICD-10 - M20.42) 04/16/2024 Pain in left toe(s) (ICD-10 - M79.675) 10/23/2024 Local edema (ICD-10 - R60.0) 04/16/2024 Pain in right toe(s) (ICD-10 - [...] Treatment Pending Test Test Name Order Date *Uric Acid, Serum 10/23/2024 *CBC With Differential/Platelet 10/23/19 25 C-Reactive Protein, Quant 10/23/2024 ESR 10/23/2024 X ray : Foot, left 3V 02/19/2018 X ray : Foot, left 3V 03/30/2020 X ray : Foot, right 3V 10/23/2024 67835-PDOCZVM NAIL, 6 OR MORE 07/16/2024 57173-ZDRRNAG NAIL, 1-5 05/05/2018 48868-BEQCSCB NAIL, 1-5 07/21/2018 79697-KANCQDW NAIL, 1-5 10/13/2018 13135, J0702- INJECT or DRAIN, JOINT/BUR SA 05/05/2018 82310-LVLH SKIN LESIONS, OVER 4 05/05/20 18 62426-WLOS SKIN LESIONS, OVER 4 07/21/20 18 92537-RBYF SKIN LESIONS, OVER 4 01/13/20 19 46497-DGPU SKIN LESIONS, OVER 4 04/13/20 19 76929-HBZM SKIN LESIONS, OVER 4 10/13/19 19 45768-TYQI SKIN LESIONS, OVER 4 12/06/19 21 37593-IBHE SKIN LESIONS, OVER 4 05/08/20 21 05310-BIEI SKIN LESIONS, OVER 4 10/18/19 22 91710-CQDO SKIN LESIONS, OVER 4 08/01/20 20 89671-GDUY SKIN LESIONS, OVER 4 03/30/20 20 22568-YEDN SKIN LESIONS, OVER 4 07/13/20 19 71764-RMZO SKIN LESIONS, OVER 4 10/12/19 20 23359-CFBO SKIN LESIONS, 2 TO 4 07/16/20 24 84678-OOJV SKIN LESIONS, 2 TO 4 02/20/20 18 42041, O5801-SCZKZ/INJECT, JOINT/BURSA 0 10/13/2018 E5322-ZLOFVCWM DYSTROPHIC NAILS ANY # T0112-EKVTCWWI DYSTROPHIC NAILS ANY # U8062-EBYSBBIG DYSTROPHIC NAILS ANY # H1603-LDQUXBFS DYSTROPHIC NAILS ANY # F8748-CXIHASWE DYSTROPHIC NAILS ANY # O6040-FIPZYRUC DYSTROPHIC NAILS ANY # F0316-HQVJCIUS DYSTROPHIC NAILS ANY # I1409-ZLYECTAE DYSTROPHIC NAILS ANY # E8047-EMRONAVJ DYSTROPHIC NAILS ANY # 26378- Nail Unit Biopsy 02/19/2018 Next Appt Details Provider Name:Jeanette arnold, 01/22/2025 11:15:00 AM, [address] [facility], [place], [address], Insurance Providers Payer Name Payer Address Payer Phone Subscriber Number Group Number Insured Name Patient Relationship to Insured Coverage Start Date Coverage End Date [employer] [address] [place] [address] [phone] [id number] Kaitlin Ortiz Self - patient is the insured [address] [place] [address] [address] [place] [address] [id number] Kaitlin Ortiz Self - patient is the [...]
--- OUTSIDE RECORDS SUMMARY | 2024-10-27 09:42 | XMS_ITS ---
Author Organization [facility] Address [address] [place] [address] Care Team Providers Care Head Tennis Professional Name Role Phone Ricardo Breen MD Primary Care Provider Unavailab Jeanette Bryson Unavailable [phone] Sylvia Nguyễn Unavailable [phone] REASON FOR VISIT appt Encounters Encounter Location Date Provider Diagnosis [address] [address] 10/14/2024 Sylvia Nguyễn Plan Of Treatment Next Appt Details Provider Name:Jeanette arnold, 01/22/2025 11:15:00 AM, [address] [place] [address], [phone], Progress Notes * Kaitlin BROWN MDOB:[birth year] (79 yo F)Acc No.[id number]:10/14/2024 Patient:?Kaitlin BROWN :1945???Age:79 Y???Sex:Female Address:[address] [place] [address] * true * Date:? Generated for Printi ng/Fataneshag/eTransmitting on:?10/27/2024 09:41 AM EST
--- OUTSIDE RECORDS SUMMARY | 2024-10-27 09:42 | XMS_ITS | Clinical Summary ---
Author Organization [facility] Facility Address [address] [address] Care Team Providers Care Rose Grader Name Role Phone Ricardo Breen MD Primary Care Provider [phone] Medications spironolactone (ALDACTONE) 25 MG tablet TAKE [...] age to complete this topic Care Teams Rose Grader Relationship Specialty Start Date End Date Ricardo Breen MD [address] [place] [address] [address] [place], [place] PCP - General 09/19/20
--- OUTSIDE RECORDS SUMMARY | 2024-10-27 09:42 | XMS_ITS ---
Author Organization [facility] Address [address] [place] [address] Care Team Providers Care Superintendent Overhead Distribution Name Role Phone Ricardo Breen MD Primary Care Provider UnavailJeanette Raman Unavailable [phone] Allergies Allergen (clinical drug ingredient) Drug/Non Drug [...] SOB Drug Allergy Active REASON FOR VISIT At Risk Footcare, Foot pain, Toe Irritation Medications Medication SIG (Take, Route, Frequency, Duration) Notes Start Date End Date Status Extra Depth Diabetic Shoes with 3 Pair Custom heat-molded multi-density innersoles for 1 year Dx: 02/19/2018 Not-Taking Extra Depth Diabetic Shoes with 3 Pair Custom heat-molded multi-density innersoles for 1 year Dx: 12/05/2020 Active Victoza Not-Taking Voltaren 1 % as directed Externally Active Extra Depth Orthopedic Shoes (1 Pair) with Customized Heat Molded Multidensity Innersoles (3 Pair) as directed Dx: NIDDM/Polyneuropathy (E11.42), Hammertoe Foot Deformity (M20.41,M20.42), Preulcerative Skin Lesion(s) (L85.1 01/12/2019 Not-Taking Spironolactone 25 MG 1 tablet with food Orally Once a day Active Extra Depth Orthopedic Shoes (1 Pair) with Customized Heat Molded Multidensity Innersoles (3 Pair) as directed Dx: NIDDM/Polyneuropathy (E11.42), Hammertoe Foot Deformity (M20.41,M20.42), Preulcerative Skin Lesion(s) (L85.1 10/23/2024 Active Vitamin D 1000 UNIT 1 tablet Orally Once a day Active Sulindac 150 MG 1 tablet with food Orally Twice a day Active Extra Depth Diabetic Shoes with 3 Pair Custom heat-molded multi-density innersoles for 1 year Dx: 04/23/2022 Active Omeprazole 20 MG 1 capsule Orally Onc e a day Active Simvastatin 40 MG 1 tablet in the even ing Orally Once a day Active Lorazepam prn Active Nifedical XL Active metFORMIN HCl Active DULoxetine HCl 30 MG 1 capsule Orally On ce a day Active Furosemide Active Medrol leyda 4mg as directed orally a s directed for 6 days 10/23/2024 Active Flexeril Active Imbruvica Active Carvedilol 25 MG Orally Act ricarda Calcium Active CeleXA 10 MG 1 tablet Orally Once a day Active Pregabalin 150 MG 1 capsule Orally Onc e a day Active Avinza Active Social History Tobacco Use: Social History Observation Description Date Details (start date - stop date) Never Smoker NA - NA Tobacco Use/Smoking Question Answer Notes Are you a: nonsmoker Tobacco use other than smoking: Question Answer Notes Are you an other tobacco user? No Problems Problem Type SNOMED Code ICD Code Onset Dates Problem Status W/U Status Risk Notes Problem Idiopathic gout (57693144) Acute idiopathic gout of right foot (M10.071) Active confirmed Problem Acquired hammer toe of right foot (22887070297954 05) Other hammer toe(s) (acquired), right foot (M20.41) Active confirmed Problem Acquired hammer toe of left foot (51689110766766 03) Other hammer toe(s) (acquired), left foot (M20.42) Active confirmed Vital Signs Height 5 ft 4 in in 10/23/2024 Weight 195 lbs 10/23/2024 BMI 33.47 kg/m2 10/23/2024 Blood pressure systolic 142 mm Hg 10/23/19 25 Blood pressure diastolic 60 mm Hg 025 Encounters Encounter Location Date Provider Diagnosis [facility] [address] 10/23/2024 Jeanette Gui Type 2 diabetes mellitus with diabetic polyneuropathy E11.42 ; 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 ; Tinea unguium B35.1 ; Pain in right ankle and joints of right foot M25.571 ; Other hammer toe(s) (acquired), right foot M20.41 ; Other hammer toe(s) (acquired), left foot M20.42 and Local edema R60.0 Assessments Encounter Date Diagnosis (ICD Code) Assessment Notes Treatment Notes Treatment Clinical Notes Section Notes 10/23/2024 Type 2 diabetes mellitus with diabetic polyneuropathy (ICD-10 - E11.42) 10/23/2024 Acute idiopathic gout of right foot (ICD-10 - M10.071) Patient Educated with: GOUT.pdf (GOUT.pdf) Patient Educated with: LOW PURINE DIET.pdf (LOW PURINE DIET.pdf) 10/23/2024 Tinea unguium (ICD-10 - B35.1) 10/23/2024 Pain in right ankle and joints of right foot (ICD-10 - M25.571) 10/23/2024 Other hammer toe(s) (acquired), right foot (ICD-10 - M20.41) Patient Educated with: DIABETIC FOOT CARE INSTRUCTIONS. pdf (DIABETIC FOOT CARE INSTRUCTIONS. pdf) 10/23/2024 Other hammer toe(s) (acquired), left foot (ICD-10 - M20.42) 10/23/2024 Local edema (ICD-10 - R60.0) Plan Of Treatment Medication Medication Name Sig Start Date Stop Date Notes Extra Depth Orthopedic Shoes (1 Pair) with Customized Heat Molded Multidensity Innersoles (3 Pair) as directed Dx: NIDDM/Polyneuropathy (E11.42), Hammertoe Foot Deformity (M20.41,M20.42), Preulcerative Skin Lesion(s) (L85.1 10/23/2024 Medrol leyda 4mg as directed orally a s directed for 6 days 10/23/2024 Treatment Notes Assessment Notes Acute idiopathic gout of right foot [place] ent Educated with: GOUT.pdf (GOUT.pdf) Patient Educated with: LOW PURINE DIET.pdf (LOW PURINE DIET.pdf) Other hammer toe(s) (acquired), right fo ot Patient Educated with: DIABETIC FOOT CARE INSTRUCTIONS.pdf (DIABETIC FOOT CARE INSTRUCTIONS.pdf) Pending Test Test Name Order Date *Uric Acid, Serum 10/23/2024 *CBC With Differential/Platelet 10/23/19 25 C-Reactive Protein, Quant 10/23/2024 ESR 10/23/2024 X ray : Foot, right 3V 10/23/2024 Next Appt Details Follow Up: 3 Months, Reason: Provider Name:Jeanette arnold, 01/22/2025 11:15:00 AM, [address] [place] [address], [phone], Procedure Notes * Category Sub-Category Detail Notes Debride Nail 6-10 Nail debridement Due to the cl inical pathology outlined in the exam findings, performance of this nail treatment is medically necessary as its management by an unskilled/untrained nonprofessional would put this patients foot and overall health at risk. Therefore, debridement to affected nail(s), as described in exam ( TA, T1, T2, T3, T4, T5, T6, T7, T8, T9, ), was performed exclusively by the physician of record to reduce/remove overall nail length, girth, thickness, subungual debris, and necrotic tissue, by manual and/or electrical means through the use of a nail nipper and/or dremel-type facing grinder, to a more viable healthy nail plate or bed tissue 6-10 nails in total. Silver nitrate was used for any petechial bleeding as necessary. Definitive antifungal treatment options, both pharmaceutical and surgical, have been reviewed and discussed with the patient. The patient solely prefers the use of intermittent/as needed professional debridement services for their nail condition and understands the need for additional periodic treatments to maintain effectiveness in symptomatic relief - 93385 Keratoma Treatment Parring or Cutting o f Benign Hyperkeratotic Lesion(s) (-57) More than 4 Lesions - Due to the at risk nature of the patients medical condition as documented in the exam findings, performance of this keratoderma treatment is medically necessary as its management by an unskilled/untrained nonprofessional would put this patients foot and overall health at risk. Therefore, the benign hyperkeratotic lesions, ( 7 ) in total, locations as stated and described in the exam ( medial 1st metatarsal head B/L TA, T5, T9 Heels B/L ), were pared, and/or cut utilizing a sterile 15 blade, tissue nippers, and/or power dremel instrumentation by the physician of record - 11818 Progress Notes * Kaitlin BROWN MDOB:[birth year] (79 yo F)Acc No.[id number]:10/23/2024 Progress Note Patient:?SADERITUPaulettene Noel Provider:?Jeanette Messer DPM :1945???Age:79 Y???Sex:Female D ate:10/23/2024 Address:[address] [place] [address] [place], [id number] Pcp:Ricardo Breen MD Subjective: * Chief Complaints: * ???At Risk FootcareFoot pain Toe Irritation * HPI: ???At Risk footcare:?Pt States Last PCP Visit:?Date?09/09/2024 ???Foot Pain:?Nature:?aching, swelling, tenderness, throbbing.?Location:?Midfoot, RIGHT.?Duration:?several weeks.?Onset:?sudden, unknown, denies trauma.?Course:?worse.?Aggravated:?any pressure, standing, walking, shoes.?Treatments:?rest/alter normal daily activity.?Toe pain:?Location:?B/L feet.?Duration:?several years.?Course:?worse.?Aggravated by:?shoes, any pressure.?Treatments:?change in shoes.? * ROS:?General/Constitutional:?Nausea?denies.?Vomiting?denies.?Hunger Thirst?denies.?Loss appetite?denies.?Chills?denies.?Fatigue?denies.?Fever?denies.?Night Sweats?denies.?Unexplained weight [...] Capsule 1 capsule Orally Once a day Avinza Calcium Carvedilol 25 MG Tablet Orally CeleXA 10 MG Tablet 1 tablet Orally Once a day DULoxetine HCl 30 MG Capsule Delayed Release Particles 1 capsule Orally Once a day Flexeril Furosemide Imbruvica Lorazepam prn metFORMIN HCl Nifedical XL Omeprazole 20 MG Capsule Delayed Release 1 capsule Orally Once a day Simvastatin 40 MG Tablet 1 tablet in the evening Orally Once a day Spironolactone 25 MG Tablet 1 tablet with food Orally Once a day Sulindac 150 MG Tablet 1 tablet with food Orally Twice a day Vitamin D 1000 UNIT Tablet 1 tablet Orally Once a day Extra Depth Diabetic Shoes with 3 Pair Custom heat-molded multi-density innersoles for 1 year Dx: Extra Depth Diabetic Shoes with 3 Pair Custom heat-molded multi-density innersoles for 1 year Dx: Voltaren 1 % Gel as directed Externally Taking Pregabalin 150 MG Capsule 1 capsule Orally Once a day Taking Avinza Taking Calcium Taking Carvedilol 25 MG Tablet Orally Taking CeleXA 10 MG Tablet 1 tablet Orally Once a day Taking DULoxetine HCl 30 MG Capsule Delayed Release Particles 1 capsule Orally Once a day Taking Flexeril Taking Furosemide Taking Imbruvica Taking Lorazepam prn Taking metFORMIN HCl Taking Nifedical XL Taking Omeprazole 20 MG Capsule Delayed Release 1 capsule Orally Once a day Taking Simvastatin 40 MG Tablet 1 tablet in the evening Orally Once a day Taking Spironolactone 25 MG Tablet 1 tablet with food Orally Once a day Taking Sulindac 150 MG Tablet 1 tablet with food Orally Twice a day Taking Vitamin D 1000 UNIT Tablet 1 tablet Orally Once a day Taking Extra Depth Diabetic Shoes with 3 Pair Custom heat-molded multi-density innersoles for 1 year Dx: Taking Extra Depth Diabetic Shoes with 3 Pair Custom heat-molded multi-density innersoles for 1 year Dx: Taking Voltaren 1 % Gel as directed Externally Not-Taking/PRNVictoza Extra Depth Orthopedic Shoes (1 Pair) with Customized Heat Molded Multidensity Innersoles (3 Pair) as directed Dx: NIDDM/Polyneuropathy (E11.42), Hammertoe Foot Deformity (M20.41,M20.42), Preulcerative Skin Lesion(s) (L85.1 Extra Depth Diabetic Shoes with 3 Pair Custom heat-molded multi-density innersoles for 1 year Dx: Medication List reviewed and reconciled with the patientNot-Taking/PRN Victoza Not-Taking/PRN Extra Depth Orthopedic Shoes (1 Pair) with Customized Heat Molded Multidensity Innersoles (3 Pair) as directed Dx: NIDDM/Polyneuropathy (E11.42), Hammertoe Foot Deformity (M20.41,M20.42), Preulcerative Skin Lesion(s) (L85.1 Not-Taking/PRN Extra Depth Diabetic Shoes with 3 Pair Custom heat-molded multi-density innersoles for 1 year Dx: Medication List reviewed and reconciled with the patient * Allergies:?Cipro: anaphylact ic shockLevaquin: anaphylactic shockAdhesive Tape: rashAmoxicillin: SOBMorphine: vomitingIodinated Diagnostic Agents: hivesPenicillin: SOBLatex: hivesyes[Allergies Verified] Objective: * Vitals:?Ht: 5 ft 4 in, Wt: 1 95, BMI: 33.47, Shoe size: 9.5W, BP: 142/60 mm Hg, BS: 110, Wt-k.45 kg. * ???Past Orders: ???Lab:HEMOGLOBIN A1C (GLYCO HEMOGLOBIN) (Order Date - 09/09/2024) (Collection Date & Time - 09/09/2024 11:11 AM) ? Value Reference Range ?HEMOGLOBIN A1C % (HH) 6.8 * Examination: ???Ophthalmology Referral: ?DIABETES EYE EXAM?General Examination: ?GENERAL APPEARANCE:?Reveals a pleasant, alert, well nourished, well- developed, well hydrated individual, who demonstrates proper attention to hygiene/body habitus, and is in no acute distress, Pt serves as own historian for office visit today.?ORIENTED:?person, place, and time.?FOOT EXAM:?Footwear Evaluation?Neurological: ?SENSORY:?Neurological exam demonstrates reduced sharp/dull pin prick discrimination reduced light touch sensation reduced vibration sensation reduced proprioception sensation in a stocking fashion 5.07 monofilament test performed at plantar aspects of 5 varied sites per foot shows sensation plantar aspects absent at Forefoot B/L.?Nails: ?NAILS are:?Elongated, overgrown, dystrophic, lytic, greater than 3mm thick, discolored and friable with crumbly malodorous subungual debris, TA, T1, T2, T3, T4, T5, T6, T7, T8, T9.?Dermatologic: ?SKIN FINDINGS:?Skin exam reveals Keratotic lesion(s) located at medial 1st metatarsal head B/L?TA, T5, T9 Heels B/L , no open wounds or signs of cellulitis right foot.?Vascular: ?DP PULSES (B):?09/12, B/L.?PT PULSES (B):? 09/12, B/L.?CAPILLARY FILL TIME:?3 secs. per digit, B/L.?TROPHIC CONDITION-TEXTURE/ELASTICITY/TURGOR/HAIR GROWTH (B):?decreased.?TEMPERTURE GRADIENT (C):?normal, warm to cool, proximal to distal,LEFT, increased warmth right foot.?PIGMENTATION:?rubrous, Right.?EDEMA (C):? 3/4 right foot and ankle.?TELANGECTASIA:?absent.?VARICOSITIES:?absent.?Orthopedic: ?MUSCLE STRENGTH:?5/5 all groups in a symmetrical fashion, B/L.?GAIT ABNORMALITY:?antalgic.?FOOT MORPHOLOGY:?Prominent, painful dorsal midfoot right.?DIGITAL DEFORMITIES:?Digital contracture, PIPJ, 2-5 B/L, incompl-reducible to push-up test, no over, nor underlapping,?there is?evidence of shoe producing skin irritation.?FOOTWEAR:?worn, non-supportive, shoe gear properties exacerbate patient's foot/toe deformity.?X-Rays - IMAGING REPORT: ?Clinical Indication(s):?Evaluate for Fracture, Evaluate for Osteomyelitis, Evaluate for possible Gout.?Views:?3 views of Foot, RIGHT, AP, LAT, MO, Taken by a trained Podiatric Imcu Specialist ( SF).?Findings:?increase in soft tissue contour and density at the symptomatic site, radiolucent soft tissue gas absent, dorsal degenerative changes of the tarsal joints.?HAV:?there is no Willam sign present in the 1st MTH.?Fracture:?Negative fractures identified.?Signs of Osteomyelitis?Absent.? Assessment: * Assessment: 1.?Type 2 diabetes mellitus with diabetic polyneuropathy - E11.42???2.?Acute idiopathic gout of right foot - M10.071 (Primary)???3.?Tinea unguium - B35.1???4.?Pain in right ankle and joints of right foot - M25.571???5. Other hammer toe(s) (acquired), right foot - M20.41???Specify :Chronic problem, Worse (4),Rx Management (4)???6.?Other hammer toe(s) (acquired), left foot - M20.42???Specify :Chronic problem, Worse (4),Rx Management (4)???7.?Local edema - R60.0??? Plan: * Treatment: 2.?Pain in right ankle and j oints of right foot?Imaging: X ray : Foot, right 3V 3.?Other hammer toe(s) (acqu ired), right foot? Start Extra Depth Orthopedic Shoes (1 Pair) with Customized Heat Molded Multidensity Innersoles (3 Pair), as directed, Dx: NIDDM/Polyneuropathy (E11.42), Hammertoe Foot Deformity (M20.41,M20.42), Preulcerative Skin Lesion(s) (L85.1, 1, Refills 0.?? Notes: Patient Educated with: DIABETIC FOOT CARE INSTRUCTIONS.pdf (DIABETIC FOOT CARE INSTRUCTIONS.pdf)?? * Procedures:?Debride Nail 6-10:?Nail debridement?Due to the clinical pathology outlined in the exam findings, performance of this nail treatment is medically necessary as its management by an unskilled/untrained nonprofessional would put this patients foot and overall health at risk. Therefore, debridement to affected nail(s), as described in exam ( TA, T1, T2, T3, T4, T5, T6, T7, T8, T9, ), was performed exclusively by the physician of record to reduce/remove overall nail length, girth, thickness, subungual debris, and necrotic tissue, by manual and/or electrical means through the use of a nail nipper and/or dremel-type facing grinder, to a more viable healthy nail plate or bed tissue 6- 10 nails in total. Silver nitrate was used for any petechial bleeding as necessary. Definitive antifungal treatment options, both pharmaceutical and surgical, have been reviewed and discussed with the patient. The patient solely prefers the use of intermittent/as needed professional debridement services for their nail condition and understands the need for additional periodic treatments to maintain effectiveness in symptomatic relief - 40722.?Keratoma Treatment:?Parring or Cutting of Benign Hyperkeratotic Lesion(s)?(-57) More than 4 Lesions - Due to the at risk nature of the patients medical condition as documented in the exam findings, performance of this keratoderma treatment is medically necessary as its management by an unskilled/untrained nonprofessional would put this patients foot and overall health at risk. Therefore, the benign hyperkeratotic lesions, ( 7 ) in total, locations as stated and described in the exam (??medial 1st metatarsal head B/L?TA, T5, T9 Heels B/L?), were pared, and/or cut utilizing a sterile 15 blade, tissue nippers, and/or power dremel instrumentation by the physician of record - 55218.? * Procedure Codes:?41630 DEBRI DE NAIL, 6 OR MORE, Modifiers: XS 75783 X-RAY EXAM OF RIGHT FOOT 3V, Modifiers: 26 , [id number] TRIM SKIN LESIONS, OVER 4, Modifiers: XS * Preventive Medicine:? ??Counseling:?Discussion:?-14: Office or other outpatient visit for the evaluation and management of an established patient, which required a medically appropriate history and/or examination and MODERATE level of DECISION MAKING for: 1 OR MORE CHRONIC PROBLEM(S) THATS WORSENING, 2 STABLE CHRONIC PROBLEMS, A NEWLY DIAGNOSED PROBLEM WITH UNCERTAIN PROGNOSIS, AN ACUTE COMPLICATED INJURY WITH MULTIPLE TREATMENT OPTIONS, OR AN ACUTE PROBLEM WITH ACCOMPANYING SYSTEMIC SYMPTOMS, THAT POSE(S) A MODERATE RISK OF MORBIDITY. THIS CONDITION MAY ALSO INCLUDE RX DRUG MANAGEMENT, OR A DECISON FOR MINOR SURGERY. The visit on the day of the encounter encompassed interpreting the data and educating the patient as to the nature of their condition, treatment options available according to their individual PMH, meds, allergies, and overall health/living conditions, as well as any potential risks or complications that may occur from a failure to adhere to, and participate in, the recommended course of therapy. The discussion included a complete verbal, and/or written explanation of the examination results, any x-rays taken, the proposed diagnosis, and outline of the treatment plan. A schedule for future care needs was also explained. The patient verbalized an understanding of the instructions at this time and agreed to be an active participant in their treatment. If the patient should think of any questions or concerns after the visit, I have encouraged the patient to call the office.?Digital Surgery:?Digital surgery was discussed with the patient, We elected to try conservative treatment at the present time, due to the patients medical history and increased asssociated post-operative risks.?Digital Treatment:?HT- I explained to the patient the possible etiologies of Hammertoes, including genetics/foot type/shoegear/activity level/exercise routine and the risks/benefits of all the different treatment options for their pain including: No treatment at all, Rest, Ice, New/supportive/wider/deeper Shoegear, Digital Padding/Strapping/Taping/Bracing/Gel protective sleeves, Foot/Ankle AFO Bracing, Stretching exercises, Deep Tissue Massage, Arch support/shoe inserts with splay metatarsal padding, and Custom orthoses. I insisted that any digital devices be removed daily and not worn overnight for safety. The patient is to carefully examine the toes daily for any skin irritation while using any splinting or padding device. The advantages and disadvantages of each option were discussed and the patients questions re: shoegear, padding, custom vs prefabricated inserts, activity level, and consistency in home treatment regimens for optimal success were answered to their verbally confirmed satisfaction.?Gout:?I explained to the patient the possible etiologies for Gout, including genetic, excess dietary protein, excess dietary sugar, alcohol, diuretic medications, dehydration, and/or previous surgery. An information sheet re: the foods to enjoy as well as avoid was dispensed and detailed at the time of visit. We discussed the risks/benefits of all the different treatment options for Gout including: No treatment at all, Rest, Ice, NSAIDs(only if well tolerated after meals), Oral steroids, Colchicine, New/supportive Shoegear, Foot/Ankle AFO Bracing, Arch support/shoe inserts, Custom orthoses, Topical analgesics including Aspercream/Voltaren gel/Custom compounded combination therapy, and Dietary modification. Advantages and disadvantages of each option were discussed and the patients questions re: shoegear, custom vs prefabricated inserts, activity level, PO vs Topical medications (and their respective potential complications/drug interactions/side effects including the possible interaction with statin medications ), diet, and consistency in home treatment regimens for optimal success were answered to their verbally confirmed satisfaction, Diet modification, Handout given and reviewed, ESR lab ordered, C-Reactive Protein, Quant, Uric acid labs, Medrol Dose Pack.?P.R.I.C.E.:?The patient was counseled on the use of P.R.I.C.E. and NSAIDS (if well tolerated) to aid in the recovery from their painful condition.?Shoe Gear Counseling:?SHOE Rx - The patient was counseled in great detail on their muscoloskeletal foot and toe deformities which coincided with the dermatological presentations visualized on exam. We discussed how their deformities put the integrity of their feet at risk for potential pedal complications which makes the accomidative diabetic shoes and cutomizable inserts medically necessary. We discussed the different shoe and insert treatment types and options, as well as the important advantages for adhering to regularly wearing these accomidative devices daily. The patient was made aware of the fact that a failure to abide by these recommedations may be deleterious to their foot health as they are able to prevent many pedal complications such as skin irritation, skin ulceration, infection, and even loss of toe/foot/leg/or life. Time was also spent with the patient dispensing and discussing proper diabetic footcare techniques including daily skin moisturization, daily foot inspection for any interruption in skin integrity including open lesions, or sign of infection such as redness/malodor/drainage/swelling. Also discussed and recommended were procedures regarding daily shoe inspection for the presence of internal foreign bodies as well as any visualized irregular shoe or insert wear. Patient questions re: shoes, inserts, and self foot inspections were answered to their satisfaction as the patient verbally confirmed a full understanding of the above information. A Rx for Extra Depth Orthopedic Shoes with 3 pair of custom heat-molded inserts was dispensed.?Steriod Injection:?I explained that a steroid and local anesthetic injections are administered to relieve pain and inflammation and thereby meant to improve function. I explained the possible complications including but not limited to signs/symptoms of steroid flare, infection, bruising, atrophy, discoloration of skin, change/deviation in toe position, and that additional injections may be necessary, cortisone post-injection informative educational handout was dispensed to and reviewed with the patient, DM: Discussed the transient elevated effects an injection of cortisone may have on the patients blood sugars.?X-rays:?Discussed and reviewed the X-rays with the patient. We discussed how the findings relate to the patients symptoms/complaints. Answered any and all questions..? ??Screening/Special Tests:?Fall Risk?Screening:?No falls in the past year ?FALLS: Screening for Future Fall Risk?Have you had two or more falls in the past year??No ?Have you had any falls with injury in the past year??No * Follow Up:?3 Months * Images: * Sign off status: Completed true * Provider:?Jeanette Messer DPM Date:? Generated for Jeny ball/Chance/Pallavi on:?10/27/2024 09:41 AM EST History and Physical Notes * HPI (History of Present Illness) Category Sub-Category Detail Notes Category Not es Toe pain Location: B/L feet Duration: several years Course: worse Aggravated by: shoes, any pressure Treatments: change in shoes At Risk footcare Pt States Last PCP Visit: Date: 5 Foot Pain Nature: aching, swelling, tenderness , throbbing Location: Midfoot, RIGHT Duration: several weeks Onset: sudden, unknown, den ies trauma Course: worse Aggravated: any pressure, standi ng, walking, shoes Treatments: rest/alter normal da hakeem activity Examination Category Sub-Category Detail Notes Category Not [...] located at medial 1st metatarsal head B/L TA, T5, T9 Heels B/L , no open wounds or signs of cellulitis right foot Orthopedic GAIT ABNORMALITY: antalgic FOOT MORPHOLOGY: Prominent, painful d orsal midfoot right FOOTWEAR: worn, non-supportive , shoe gear properties exacerbate patient's foot/toe deformity DIGITAL DEFORMITIES: Digital contracture , PIPJ, 2-5 B/L, incompl-reducible to push-up test, no over, nor underlapping, there is evidence of shoe producing skin irritation MUSCLE STRENGTH: 5/5 all groups in a symmetrical fashion, B/L General Examination GENERAL APPEARANCE: Reveals a pleasant, alert, well nourished, well-developed, well hydrated individual, who demonstrates proper attention to hygiene/body habitus, and is in no acute distress, Pt serves as own historian for office visit today FOOT EXAM: Lower Extremity Neurological Exa m performed:: Yes Date Visual exam of foot performed:: Yes Date: 10/23/2024 ORIENTED: person, place, and t vita Footwear Evaluation Footwear Evaluation performe d:: Yes Ophthalmology Referral DIABETES EYE EXAM Procedure Perform ed:: Yes ?Date of Exam Performed: 06/09/2024 Findings of Diabetic Eye Exam:: no retin opathy Vascular DP PULSES (B): 1/4, B/L PT PULSES (B): 1/4, B/L CAPILLARY FILL TIME: 3 secs. per digit, B/L TEMPERTURE GRADIENT (C): normal, warm to cool, proximal to distal,LEFT, increased warmth right foot TROPHIC CONDITION-TEXTURE/ELASTICITY/TURGOR/HAIR GROWTH (B): decreased EDEMA (C): 3/4 right foot and a nkle TELANGECTASIA: absent VARICOSITIES: absent PIGMENTATION: rubrous, Right Nails NAILS are: Elongated, overg rown, dystrophic, lytic, greater than 3mm thick, discolored and friable with crumbly malodorous subungual debris, TA, T1, T2, T3, T4, T5, T6, T7, T8, T9 X-Rays - IMAGING REPORT Findings: increase in soft tissue contour and density at the symptomatic site, radiolucent soft tissue gas absent, dorsal degenerative changes of the tarsal joints Fracture: Negative fractures i dentified Signs of Osteomyelitis Absent HAV: there is no Willam s ign present in the 1st MTH Views: 3 views of Foot, RIG HT, AP, LAT, [place], Taken by a trained Podiatric Imcu Specialist ( SF) Clinical Indication(s): Evaluate for Fra cture, Evaluate for Osteomyelitis, Evaluate for possible Gout
[2024-10-27 09:45] LABS: MANUAL DIFF FLAG NO
[2024-10-27 10:14] LABS: Basophils Absolute Auto 0.1 X10*3/uL (0.0-0.2); Basophils Percent Auto 0.7 % (0-2); Eosinophils Percent Auto 0.4 % (0-4); Hematocrit 33.1 % (37.0-47.0); Hemoglobin 10.4 g/dl (12.0-16.0); Imm Gran Abs Auto 0.45 X10*3/uL (0.00-0.03); Imm Gran Pct Auto 4.2 % (0.0-0.4); Lymphocytes Absolute Auto 2.5 X10*3/uL (1.2-4.9); Lymphocytes Percent Auto 23.1 % (20-40); Mean Corpuscular HGB Conc 31.4 g/dl (31.0-35.0); Mean Corpuscular Hemoglobin 29.8 pg (27.0-33.0); Mean Corpuscular Volume 94.8 fL (80.0-98.0); Mean Platelet Volume 12.1 fL (9.4-12.3); Monocytes Absolute Auto 1.2 X10*3/uL (0.1-1.2); Monocytes Percent Auto 10.9 % (2-11); Neutrophils Absolute Auto 6.6 x10*3/uL (2.0-8.3); Neutrophils Percent Auto 60.7 % (45-73); Platelet Count 133 X10*3/uL (160-400); Red Blood Count 3.49 X10*6/uL (4.20-5.50); Red Cell Distribution Width 13.8 % (11.0-16.0); White Blood Count 10.8 X10*3/uL (4.8-10.8)
[2024-10-27 10:54] LABS: Erythrocyte Sedimentation Rate 23 MM/HR (0-20)
[2024-10-27 10:58] LABS: Alanine Aminotransferase 9 U/L (0-31); Albumin Level 3.9 g/dL (3.5-5.0); Alkaline Phosphatase 62 U/L (39-117); Anion Gap 13 (12-20); Aspartate Amino Transferase 15 U/L (5-31); Bilirubin Total 0.3 mg/dL (0.0-1.0); Blood Urea Nitrogen 39 mg/dL (9-16); Calcium 9.5 mg/dL (8.4-10.2); Carbon Dioxide 27 mmol/L (22-29); Chloride 108 mmol/L (96-108); Estimated Glomerular Filt Rate 33; Glucose Fasting 88 mg/dL (60-99); Potassium 4.9 mmol/L (3.3-5.1); Sodium 143 mmol/L (135-145); Total Protein 6.4 g/dL (6.5-8.0)
[2024-10-27 11:00] LABS: C Reactive Protein 0.27 mg/dL (< or = 0.50); Uric Acid 7.2 mg/dL (2.4-5.7)
== END 2024-10-27 09:07 | disposition home or self-care (01) ==
LOC: HO.LAB 09:06
PROVIDERS: Absent Provider Podiatrist; PCP Family Medicine; Visit Provider Family Medicine
DX: Z13.89 Encounter for screening for other disorder (principal)
CPT/HCPCS: 36415; 80053; 84550; 85025; 85652; 86140

== ENCOUNTER 2024-10-28 12:56 | Inpatient (IN) | payer MEDICARE, OTHER, SELFPAY ==
--- OUTSIDE RECORDS SUMMARY | 2024-10-28 13:13 | XMS_ITS ---
Author Organization [facility] Address [address] [place] [address] Care Team Providers Care Home Health Physical Therapist Name Role Phone Ricardo Breen MD Primary Care Provider UnavailJeanette Raman Unavailable [phone] Allergies Allergen (clinical drug ingredient) Drug/Non Drug [...] W/U Status Risk Notes Problem Idiopathic gout (92046664) Acute idiopathic gout of right foot (M10.071) Active confirmed Problem Acquired hammer toe of right foot (17799338380087 05) Other hammer toe(s) (acquired), right foot (M20.41) Active confirmed Problem Acquired hammer toe of left foot (50087319962562 03) Other hammer toe(s) (acquired), left foot (M20.42) Active confirmed Vital Signs Height 5 ft 4 in in 10/23/2024 Weight 195 lbs 10/23/2024 BMI 33.47 kg/m2 10/23/2024 Blood pressure systolic 142 mm Hg 10/23/19 25 Blood pressure diastolic 60 mm Hg 025 Encounters Encounter Location Date Provider Diagnosis [facility] [address] 10/23/2024 Jeanette Gui Type 2 diabetes mellitus [...] Reason: Provider Name:Jeanette arnold, 01/22/2025 11:15:00 AM, [address] [place] [address], [id number], Procedure Notes * Category Sub-Category Detail Notes [...] use of a nail nipper and/or dremel-type paint grinder stone mill, to a more viable healthy nail plate [...] to maintain effectiveness in symptomatic relief - 29796 Keratoma Treatment Parring or Cutting o f [...] instrumentation by the physician of record - 98877 Progress Notes * Kaitlin BROWN MDOB:[birth year] (79 yo F)Acc No.[id number]:10/23/2024 Progress Note Patient:?SADERITUPaulettene Noel Provider:?Jeanette Messer DPM :1945???Age:79 Y???Sex:Female D ate:10/23/2024 Address:[address] [place] [address] Ev[place], [facility] Pcp:Ricardo Breen MD Subjective: * Chief Complaints: [...] LAT, MO, Taken by a trained Podiatric Corporate Attorney ( SF).?Findings:?increase in soft tissue contour and [...] use of a nail nipper and/or dremel-type paint grinder stone mill, to a more viable healthy nail plate [...] to maintain effectiveness in symptomatic relief - 50772.?Keratoma Treatment:?Parring or Cutting of Benign Hyperkeratotic Lesion(s)?(-57) [...] instrumentation by the physician of record - 51596.? * Procedure Codes:?32881 DEBRI DE NAIL, 6 OR MORE, Modifiers: XS 80168 X-RAY EXAM OF RIGHT FOOT 3V, Modifiers: 26 , [id number] TRIM SKIN LESIONS, OVER 4, Modifiers: XS [...] Messer DPM Date:? Generated for Jeny ball/Chance/Pallavi on:?10/28/2024 01:12 PM EST History and Physical Notes * [...] LAT, MO, Taken by a trained Podiatric Corporate Attorney ( SF) Clinical Indication(s): Evaluate for Fra cture, Evaluate for Osteomyelitis, Evaluate for possible Gout
--- OUTSIDE RECORDS SUMMARY | 2024-10-28 13:13 | XMS_ITS | Continuity of Care Document ---
Author Organization [facility] [address] [place] [address] Phone [phone] Social History Type Date Description Comments Sex [...]
--- OUTSIDE RECORDS SUMMARY | 2024-10-28 13:13 | XMS_ITS ---
Author Organization [facility] Address [address] [place] [address] Care Team Providers Care Engraver Pantograph Name Role Phone Ricardo Breen MD Primary Care Provider Unavailab Jeanette Bryson Unavailable [phone] REASON FOR VISIT Lab Results Encounters Encounter Location Date Provider Diagnosis [address] [address] 10/28/2024 Jeanette Messer Plan Of Treatment Next Appt Details Provider Name:Jeanette arnold, 01/22/2025 11:15:00 AM, [address] [place], [address], Progress Notes * Kaitlin BROWN MDOB:[birth year] (79 yo F)Acc No.[id number]:10/28/2024 Patient:?Paulette BROWNjennifer Cohen :1945???Age:79 Y???Sex:Female Address:[address] [place] [address] * * Date:?
--- OUTSIDE RECORDS SUMMARY | 2024-10-28 13:13 | XMS_ITS ---
Author Organization [facility] Address [address] [facility] [place] [address] Care Team Providers Care User Interface Engineer Name Role Phone Ricardo Breen MD Primary Care Provider Unavailab Jeanette Bryson Unavailable [phone] Sylvia Nguyễn Unavailable [phone] Allergies Allergen (clinical drug ingredient) Drug/Non Drug [...] Active Encounters Encounter Location Date Provider Diagnosis [facility] [address] [address] 10/15/2024 Sylvia Nguyễn Plan Of Treatment Next Appt Details Provider Name:Jeanette arnold, 01/22/2025 11:15:00 AM, [address] [place] [address], [phone], Progress Notes * Kaitlin BRWON MDOB:[birth year] (79 yo F)Acc No.[id number]:10/15/2024 Progress Note Patient:?STEPHANIE Kaitlin Noel Provider:?Sylvia Nguyễn DPM :1945???Age:79 Y???Sex:Female D ate:10/15/2024 Address:[address] [place], [place] [id number] Pcp:Ricardo Breen MD Subjective: * Chief Complaints: [...] DPM Date:?0 10/15/2024 Generated for Jeny ball/Chance/Pallavi on:?10/28/2024 01:12 PM EST
--- OUTSIDE RECORDS SUMMARY | 2024-10-28 13:13 | XMS_ITS | Clinical Summary ---
Author Organization [facility] Address [address] [address] Care Team Providers Care Telecommunications Consultant Name Role Phone Ricardo Breen MD Primary Care Provider [phone] Medications spironolactone (ALDACTONE) 25 MG tablet TAKE [...] age to complete this topic Care Teams Telecommunications Consultant Relationship Specialty Start Date End Date Ricardo Breen MD [address] [place] [address] [address] [place], [place] PCP - General 09/19/20
[2024-10-28 13:31] VITALS: BMI 33.5
[2024-10-28 13:38] VITALS: BP 153/69; PULSE 53; RESP 19; TEMP 36.2; O2SAT 98
[2024-10-28 13:47] LABS: Glucose, Whole Blood 90 mg/dL (60-115)
[2024-10-28 14:09] LABS: MANUAL DIFF FLAG NO
[2024-10-28 14:15] LABS: Appearance Urine Turbid; Color Urine Yellow; Glucose Urine UA Negative (Negative); Leukocyte Esterase Urine Large (3+) (Negative); Nitrite Urine Negative (Negative); PH 6.5 (5.0-9.0); UMIC TRIGGER UA YES; Urine Blood Moderate (2+) (Negative); Urine Ketones Negative (Negative); Urine Protein 100 (2+) mg/dL (Neg-Trace)
[2024-10-28 14:16] LABS: Basophils Absolute Auto 0.1 X10*3/uL (0.0-0.2); Basophils Percent Auto 0.6 % (0-2); Eosinophils Percent Auto 0.3 % (0-4); Hematocrit 32.6 % (37.0-47.0); Hemoglobin 10.7 g/dl (12.0-16.0); Imm Gran Abs Auto 0.51 X10*3/uL (0.00-0.03); Imm Gran Pct Auto 4.3 % (0.0-0.4); Lymphocytes Absolute Auto 3.3 X10*3/uL (1.2-4.9); Lymphocytes Percent Auto 28.1 % (20-40); Mean Corpuscular HGB Conc 32.8 g/dl (31.0-35.0); Mean Corpuscular Hemoglobin 30.7 pg (27.0-33.0); Mean Corpuscular Volume 93.7 fL (80.0-98.0); Mean Platelet Volume 12.2 fL (9.4-12.3); Monocytes Absolute Auto 1.3 X10*3/uL (0.1-1.2); Monocytes Percent Auto 11.3 % (2-11); Neutrophils Absolute Auto 6.6 x10*3/uL (2.0-8.3); Neutrophils Percent Auto 55.4 % (45-73); Platelet Count 140 X10*3/uL (160-400); Red Blood Count 3.48 X10*6/uL (4.20-5.50); Red Cell Distribution Width 13.5 % (11.0-16.0); White Blood Count 11.8 X10*3/uL (4.8-10.8)
[2024-10-28 14:18] LABS: Bacteria Urine 4+ (None Seen); Hyaline Casts Urine 0-2 /LPF (0-2); RBC Urine >20 /HPF (0-2); Squamous Epithelial Cell Urine 0-2 /HPF (0-2); WBC Urine >50 /HPF (0-5)
[2024-10-28 14:24] LABS: Anion Gap 13 (12-20); Blood Urea Nitrogen 37 mg/dL (9-16); Carbon Dioxide 28 mmol/L (22-29); Chloride 105 mmol/L (96-108); Creatinine Clr Calc Pharmacy 31.6; Estimated Glomerular Filt Rate 32; Glucose Random 99 mg/dL (60-115); Potassium 4.9 mmol/L (3.3-5.1); Sodium 141 mmol/L (135-145)
--- NOTE | 2024-10-28 15:02 | PHA.MEDREC ---
Addendum entered by Jose Luis Marks [facility] 10/28/24 15:07: MED REC CHECK BY [facility] Original Note: Pharmacy Consult ? Medication Reconciliation Pharmacy has completed the medication reconciliation. Spoke with patient to confirm medications. She took Imbruvica this morning. She is on day 5 of methylpred taper but did not take it today. She took her morning medications today.
[2024-10-28 16:00] VITALS: BP 162/67; PULSE 56; RESP 18; TEMP 36.6; O2SAT 93
--- NOTE | 2024-10-28 16:03 | PM.HPGS ---
History of Present Illness History of Present Illness Date of Service: 10/28/24 Chief complaint: From Urology Narrative: Kaitlin Ortiz is a 79 year old female Well known to Urology. Prolonged history of complicated UTI, neurogenic bladder with incomplete emptying, multi resistant disease. Has been managed with suprapubic tube for bladder emptying Significant past medical history with diabetes, CLL, immunosuppression Has had complicated recurrent urinary tract infections Only available for IV therapy IV port was placed 6 months ago and has been accessed as outpatient for numerous courses of therapy Admission required for delivery of IV antibiotics more than once per day Infectious disease consult has been requested to manage antibiotic choice and course of therapy Review of Systems Constitutional: Constitutional: Denies chills and Denies fever(s) Cardiovascular: Cardiovascular: Reports no additional cardiovascular complaints and Denies syncope Respiratory: Respiratory: Denies cough Gastrointestinal: Gastrointestinal: Denies abdominal pain and Denies heartburn Genitourinary: Genitourinary: Reports as per HPI and Denies change in libido Neurologic: Denies syncope Psychiatric: Psychiatric: Denies change in libido Endocrine: Endocrine: Denies change in libido [facility] Past Medical History Medical History Osteoarthritis Morbid obesity Allergy to multiple antibiotics Depression Arthritis of left hip Wears dentures Neurogenic urinary bladder disorder History of blood transfusion History of CVA (cerebrovascular accident) Seasonal allergies History of numbness PONV (postoperative nausea and vomiting) Self-catheterizes urinary bladder Diabetes with neurologic complications Type 2 diabetes mellitus with unspecified complications Anemia CLL (chronic lymphocytic leukemia) Sleep apnea Diabetes mellitus CLL (chronic lymphocytic leukemia) Arthritis Fibromyalgia Hypercholesterolemia Hypertension History of bilateral breast cancer Urinary retention with incomplete bladder emptying Family History Family History Mother Breast cancer Father Heart disease Father Lung cancer Mother Colon cancer Brother Pancreatic cancer Surgical History Surgical History History of open heart surgery (~01/31/24) History of total left hip replacement S/P Botox injection History of suprapubic catheter S/P left breast biopsy History of esophagogastroduodenoscopy (EGD) Hx of colonoscopy History of bladder repair surgery History of total hysterectomy S/P breast biopsy, right History of back surgery History of biopsy of bladder Social History Social History Household Members: Spouse Housing: House Housing Other:: has chair lift for second floor access Are you a primary field care coordinator to a significant other at home: No Do you presently have visiting nurse or other home services: No Alcohol intake: never Comment: patient refused telesiter,removed per pt request Patient Tobacco Use Status: Never used Tobacco Use of substances other than those prescribed or required for medical reasons: No Have you been hit, kicked, punched, or otherwise hurt by someone within the past year? If so, by whom?: No Do you feel safe in your current relationship?: Yes Is there a partner from a previous relationship who is making you feel unsafe now?: No Are you made to feel afraid or neglected: No Advance Directives: Yes Advance Directives on File: Yes Advance Directives Date on File: 07/30/23 Do you have a plan to hurt others: No Plan Recently lost weight without trying: No Eating poorly because of decreased appetite: No Nutrition Risks: No Nutritional Risk Patient : No : No Poor oral hygiene: No service: No Current occupational status: retired Meds Allergies Allergy/AdvReac Type Severity Reaction Status Date / Time amoxicillin [AMOXICILLIN] Allergy Severe stroke, Verified 10/23/24 08:46 blood clots ciprofloxacin [From CIPRO] Allergy Severe ANAPHYLAXIS Verified 10/23/24 08:46 Iodinated Contrast Media Allergy Severe HIVES Verified 10/23/24 08:46 [IV DYE, IODINE CONTAINING CONTRAST ] levofloxacin Allergy Severe Anaphylaxis Verified 10/23/24 08:46 liraglutide Allergy Severe Headache Verified 10/23/24 08:46 Penicillins Allergy Severe stroke, Verified 10/23/24 08:46 blood clots FREYA Inhibitors Allergy Intermediate Cough Verified 10/23/24 08:46 ARB-Angiotensin Receptor Allergy Intermediate Cough Verified 10/23/24 08:46 Antagonist cefpodoxime Allergy Intermediate Dizziness, Verified 10/23/24 08:46 nausea doxazosin Allergy Intermediate Shortness Verified 10/23/24 08:46 of Breath fluticasone [Advair Diskus] Allergy Intermediate Anxiety Verified 10/23/24 08:46 gabapentin [From Neurontin] Allergy Intermediate Headache Verified 10/23/24 08:46 hydralazine Allergy Intermediate Shortness Verified 10/23/24 08:46 of Breath latex Allergy Intermediate Hives Verified 10/23/24 08:46 linezolid Allergy Intermediate Nausea and Verified 10/23/24 08:46 Vomiting meloxicam Allergy Intermediate Unknown Verified 10/23/24 08:46 salmeterol [Advair Diskus] Allergy Intermediate Anxiety Verified 10/23/24 08:46 Tetanus Vaccines and Toxoid Allergy Intermediate Swelling Verified 10/23/24 08:46 torsemide Allergy Intermediate Shortness Verified 10/23/24 08:46 of Breath cephalexin [Keflex] Allergy Mild Nausea Verified 10/23/24 08:46 Active Medications: Current Medications Acetaminophen (Acetaminophen 325 Mg Tablet) 650 mg PO Q6H PRN PRN Reason: Pain, Mild 1-3,fever,headache Amlodipine Besylate (Amlodipine Besylate 10 Mg Tablet) 10 mg PO DAILY [facility]; Protocol Ascorbic Acid (Ascorbic Acid 500 Mg Tablet) 1,000 mg PO DAILY [facility] Atorvastatin Calcium (Atorvastatin Calcium 80 Mg Tablet) 80 mg PO BEDTIME [facility] Heparin Sodium (Porcine) 50 (units/ Sodium Chloride 5 ml) 0 units IVFLUSH QSHIFT [facility] Famotidine (Famotidine 20 Mg Tablet) 40 mg PO BEDTIME [facility] Furosemide (Furosemide 20 Mg Tablet) 20 mg PO DAILY PRN; Protocol PRN Reason: Edema Ibuprofen (Ibuprofen 400 Mg Tablet) 400 mg PO Q6H PRN PRN Reason: Fever or Pain, Mild (Pain Scale 1-3) Magnesium Hydroxide (Milk Of Magnesia 30 Ml Oral.Susp) 30 ml PO DAILY PRN PRN Reason: Constipation Melatonin (Melatonin 3 Mg Tablet) 6 mg PO BEDTIME PRN PRN Reason: Insomnia Metformin HCl (Metformin Hcl 1,000 Mg Tablet) 1,000 mg PO BID [facility] Non-Formulary Medication (Ibrutinib [Imbruvica]) 420 mg PO DAILY [facility] Ondansetron HCl (Ondansetron Hcl 4 Mg/2 Ml Vial) 4 mg IVPUSH Q8H PRN PRN Reason: Nausea and Vomiting Sodium Chloride (0.9 % Sodium Chloride Flush 3 Ml Syringe) 3 ml IVFLUSH QSHIFT [facility] Sodium Chloride (0.9 % Sodium Chloride Flush 10 Ml Syringe) 5 ml IVFLUSH QSHIFT [facility] Home Medications ?Medication ?Instructions ?Recorded ?Confirmed ?Last Taken ?Type citalopram 20 mg tablet 20 mg PO DAILY 11/08/2810/28/24 04/16/22 History duloxetine 60 mg capsule,delayed 60 mg PO DAILY 07/21/20 10/28/24 04/16/22 History release spironolactone 25 mg tablet 25 mg PO DAILY 07/21/20 10/28/24 Unknown History amlodipine 10 mg tablet 10 mg PO DAILY 03/23/21 10/28/24 04/16/22 History metformin 1,000 mg tablet 1,000 mg PO BID 04/19/21 10/28/24 Unknown History carvedilol 25 mg tablet 25 mg PO BID 05/31/21 10/28/24 04/16/22 History blood sugar diagnostic (Accu-Chek #10 ea 09/04/22 09/15/24 Unknown History Guide test strips) coenzyme Q10 100 mg capsule 100 mg PO BEDTIME 01/03/23 10/28/24 Unknown History (CoQ-10) magnesium 250 mg tablet 250 mg PO BEDTIME 01/03/23 10/28/24 Unknown History multivitamin 1 tab PO DAILY 01/03/23 10/28/24 Unknown History pregabalin 150 mg capsule 150 mg PO BID 01/03/23 10/28/24 Unknown History furosemide 20 mg tablet 20 mg PO DAILY PRN Edema 10/31/23 10/28/24 Unknown History methylprednisolone 4 mg tablets in See Taper PO DIRECTED 10/28/24 10/28/24 10/27/24 History a dose pack polyethylene glycol 3350 17 17 g PO DAILY PRN Constipation 10/28/24 10/28/24 Unknown History gram/dose oral powder (Miralax) Physical Exam Vital Signs: Vital Signs: Last Vital Signs Temp 97.1 F 10/28/24 13:38 Pulse 53 10/28/24 13:38 Resp 10/28/24 13:38 BP 153/69 H 10/28/24 13:38 Pulse Ox 98 10/28/24 13:38 O2 Del Method Room Air 10/28/24 13:38 BMI result Body Mass Index 33.5 Const: General: cooperative, healthy appearing, comfortable and no acute distress Orientation/consciousness: patient oriented x3 HEENT: Face and sinus: Yes normal facial exam Mouth: moist mucous membranes Neck: Neck: Yes normal visual inspection, Yes full ROM and Yes trachea midline Chest: Chest palpation & inspection: normal inspection of the chest Resp: Effort & Inspection: normal respiratory effort, able to speak in complete sentences and no respiratory distress GI: Inspection: Yes normal to inspection Back/Spine/Pelvis: Cervical Spine: normal cervical lordosis Thoracic/Lumbar Spine: thoracic and lumbar spine normal to inspection Skin: General skin exam: no rashes or lesions noted Neuro: General: patient oriented x3, gait normal, tone normal and moves all extremities Extrem: General: Yes normal to inspection and Yes capillary refill normal Results Results Labs: Short CBC 10/28/24 Range/Units 13:32 WBC 11.8 H (4.8-10.8) X10*3/uL Hgb 10.7 L (12.0-16.0) g/dl Hct 32.6 L (37.0-47.0) % Plt Count 140 L (160-400) X10*3/uL BMP 10/28/24 13:32 Sodium 141 Potassium 4.9 Chloride 105 Carbon Dioxide 28 BUN 37 H Creatinine 1.58 H Calcium 10.0 Urine 10/28/24 Range/Units 14:07 Urine Color Yellow Urine Appearance Turbid Urine pH 6.5 (5.0-9.0) Ur Specific [place] 1.020 (1.005-1.025) Urine Protein 100 (2+) H (Neg-Trace) mg/dL Urine Glucose (UA) Negative (Negative) mg/dL Assessment and Plan (1) Complicated urinary tract infection: Status: Acute (2) Neurogenic urinary bladder disorder: Status: Acute Plan This note is constructed using voice recognition software. While every effort has been made to ensure accuracy service cashier errors may have been included. Imaging studies, laboratory and physical exam results were discussed and reviewed in detail. No major barriers to patient understanding were identified. An opportunity to ask questions regarding the treatment plan was provided. All questions were answered. The patient expressed understanding and agreement with the above treatment plan. The patient is aware they should contact our office by phone for worsening of their current condition or the appearance of new urologic symptoms. Compliance is encouraged with any medications and followup testing that is ordered. It is a privilege to participate in the urologic care of your patient. If you have any questions or concerns regarding treatment for the above conditions, or other urologic issues, please do not hesitate to contact me. The office telephone contact is [phone]. Sincerely, Dr Ceferino Hayes MD, [facility] - Urology Compassionate Specialist Care for the Genitourinary System Quality Stroke Does the patient have a stroke diagnosis?: No VTE Prior VTE?: No VTE Risk Level:: Medical - moderate - high VTE Device Contraindication: Treatment Not Indicated VTE Drug Contraindication: Treatment Not Indicated Procedures Date of Service Date of Service: 10/28/24
[2024-10-28 16:17] LABS: Glucose, Whole Blood 127 mg/dL (60-115)
[2024-10-28] MEDS: 0.9 % Sodium Chloride Flush 3 ML SYRINGE IVFLUSH ×2 (16:36→19:55)
--- NOTE | 2024-10-28 17:22 | W.PM.IDCN ---
History of Present Illness Data of Consult Service Date: 10/28/24 Requesting physician: Ceferino Hayes Primary Care Provider: Ricardo Breen MD HPI Reason for consult: recurrent monthly UTI She presents with bladder spasms and cramps with hematuria last sevne days. She gets symptoms with headache about monthly not related to changing catheter which happens monthly. She has suprapubic catheter. She has Pseudomonas auruginosa more than 100,000 and stenotrophomonas 50,000 to [id number] on 10/20 urine and no bacteremia. She has no fever. She has tried methenamine with no success. She has CVA symptoms x2 with Amoxicillin. She has anaphylaxis with Cipro and dizziness and nausea with cefpodoxime. Linezolid has nausea and vomiting. She has IV port six months ago for antibiotics. She says she is not candidate for cystectomy or bladder antibiotic irrigation as not felt would be helpful. She has CLL and is on ibrutinib. I had seen her in past 11/07/2022 and she received IV Daptomycin for three weeks and then Macrobid for enterococcus sepsis,bacteremia. Review of Systems Review of Systems: Yes all other systems are reviewed and are negative PMFSH Past Medical History Medical History Osteoarthritis Morbid obesity Allergy to multiple antibiotics Depression Arthritis of left hip Wears dentures Neurogenic urinary bladder disorder History of blood transfusion History of CVA (cerebrovascular accident) Seasonal allergies History of numbness PONV (postoperative nausea and vomiting) Self-catheterizes urinary bladder Diabetes with neurologic complications Type 2 diabetes mellitus with unspecified complications Anemia CLL (chronic lymphocytic leukemia) Sleep apnea Diabetes mellitus CLL (chronic lymphocytic leukemia) Arthritis Fibromyalgia Hypercholesterolemia Hypertension History of bilateral breast cancer Urinary retention with incomplete bladder emptying Family History Family History Mother Breast cancer Father Heart disease Father Lung cancer Mother Colon cancer Brother Pancreatic cancer Family history: reviewed and not pertinent Surgical History Surgical History History of open heart surgery (~01/31/24) History of total left hip replacement S/P Botox injection History of suprapubic catheter S/P left breast biopsy History of esophagogastroduodenoscopy (EGD) Hx of colonoscopy History of bladder repair surgery History of total hysterectomy S/P breast biopsy, right History of back surgery History of biopsy of bladder Social History Social History Household Members: Spouse Housing: House Housing Other:: has chair lift for second floor access Are you a primary primary care sales representative to a significant other at home: No Do you presently have visiting nurse or other home services: No Alcohol intake: never Comment: patient refused telesiter,removed per pt request Patient Tobacco Use Status: Never used Tobacco Use of substances other than those prescribed or required for medical reasons: No Currently Displaying Signs/Symptoms of Drug Intoxication Withdrawal: No Have you been hit, kicked, punched, or otherwise hurt by someone within the past year? If so, by whom?: No Do you feel safe in your current relationship?: Yes Is there a partner from a previous relationship who is making you feel unsafe now?: No Are you made to feel afraid or neglected: No Advance Directives: Yes Advance Directives on File: Yes Advance Directives Date on File: 07/30/23 Do you have a plan to hurt others: No Plan Recently lost weight without trying: No Eating poorly because of decreased appetite: No Nutrition Risks: No Nutritional Risk Patient : No : No Poor oral hygiene: No service: No Current occupational status: retired Meds Allergies Allergy/AdvReac Type Severity Reaction Status Date / Time amoxicillin [AMOXICILLIN] Allergy Severe stroke, Verified 10/23/24 08:46 blood clots ciprofloxacin [From CIPRO] Allergy Severe ANAPHYLAXIS Verified 10/23/24 08:46 Iodinated Contrast Media Allergy Severe HIVES Verified 10/23/24 08:46 [IV DYE, IODINE CONTAINING CONTRAST ] levofloxacin Allergy Severe Anaphylaxis Verified 10/23/24 08:46 liraglutide Allergy Severe Headache Verified 10/23/24 08:46 Penicillins Allergy Severe stroke, Verified 10/23/24 08:46 blood clots FREYA Inhibitors Allergy Intermediate Cough Verified 10/23/24 08:46 ARB-Angiotensin Receptor Allergy Intermediate Cough Verified 10/23/24 08:46 Antagonist cefpodoxime Allergy Intermediate Dizziness, Verified 10/23/24 08:46 nausea doxazosin Allergy Intermediate Shortness Verified 10/23/24 08:46 of Breath fluticasone [Advair Diskus] Allergy Intermediate Anxiety Verified 10/23/24 08:46 gabapentin [From Neurontin] Allergy Intermediate Headache Verified 10/23/24 08:46 hydralazine Allergy Intermediate Shortness Verified 10/23/24 08:46 of Breath latex Allergy Intermediate Hives Verified 10/23/24 08:46 linezolid Allergy Intermediate Nausea and Verified 10/23/24 08:46 Vomiting meloxicam Allergy Intermediate Unknown Verified 10/23/24 08:46 salmeterol [Advair Diskus] Allergy Intermediate Anxiety Verified 10/23/24 08:46 Tetanus Vaccines and Toxoid Allergy Intermediate Swelling Verified 10/23/24 08:46 torsemide Allergy Intermediate Shortness Verified 10/23/24 08:46 of Breath cephalexin [Keflex] Allergy Mild Nausea Verified 10/23/24 08:46 Active Medications: Current Medications Acetaminophen (Acetaminophen 325 Mg Tablet) 650 mg PO Q6H PRN PRN Reason: Pain, Mild 1-3,fever,headache Amlodipine Besylate (Amlodipine Besylate 10 Mg Tablet) 10 mg PO DAILY JORGE; Protocol Ascorbic Acid (Ascorbic Acid 500 Mg Tablet) 1,000 mg PO DAILY [facility] Atorvastatin Calcium (Atorvastatin Calcium 80 Mg Tablet) 80 mg PO BEDTIME JORGE Famotidine (Famotidine 20 Mg Tablet) 40 mg PO BEDTIME [facility] Furosemide (Furosemide 20 Mg Tablet) 20 mg PO DAILY PRN; Protocol PRN Reason: Edema Ibuprofen (Ibuprofen 400 Mg Tablet) 400 mg PO Q6H PRN PRN Reason: Fever or Pain, Mild (Pain Scale 1-3) Magnesium Hydroxide (Milk Of Magnesia 30 Ml Oral.Susp) 30 ml PO DAILY PRN PRN Reason: Constipation Melatonin (Melatonin 3 Mg Tablet) 6 mg PO BEDTIME PRN PRN Reason: Insomnia Metformin HCl (Metformin Hcl 1,000 Mg Tablet) 1,000 mg PO BID [facility] Non-Formulary Medication (Ibrutinib [Imbruvica]) 420 mg PO DAILY [facility] Ondansetron HCl (Ondansetron Hcl 4 Mg/2 Ml Vial) 4 mg IVPUSH Q8H PRN PRN Reason: Nausea and Vomiting Sodium Chloride (0.9 % Sodium Chloride Flush 3 Ml Syringe) [facility] Last Admin: 10/28/24 16:36 Dose: 3 ml Sodium Chloride (0.9 % Sodium Chloride Flush 10 Ml Syringe) 5 ml IVFLUSH QSVTFT [facility] Home Medications ?Medication ?Instructions ?Recorded ?Confirmed ?Last Taken ?Type citalopram 20 mg tablet 20 mg PO DAILY 07/21/20 10/28/24 04/16/22 History duloxetine 60 mg capsule,delayed 60 mg PO DAILY 07/21/20 10/28/24 04/16/22 History release spironolactone 25 mg tablet 25 mg PO DAILY 07/21/20 10/28/24 Unknown History amlodipine 10 mg tablet 10 mg PO DAILY 03/23/21 10/28/24 04/16/22 History metformin 1,000 mg tablet 1,000 mg PO BID 04/19/21 10/28/24 Unknown History carvedilol 25 mg tablet 25 mg PO BID 05/31/21 10/28/24 04/16/22 History blood sugar diagnostic (Accu-Chek #10 ea 09/04/22 09/15/24 Unknown History Guide test strips) coenzyme Q10 100 mg capsule 100 mg PO BEDTIME 01/03/23 10/28/24 Unknown History (CoQ-10) magnesium 250 mg tablet 250 mg PO BEDTIME 01/03/23 10/28/24 Unknown History multivitamin 1 tab PO DAILY 01/03/23 10/28/24 Unknown History pregabalin 150 mg capsule 150 mg PO BID 01/03/23 10/28/24 Unknown History furosemide 20 mg tablet 20 mg PO DAILY PRN Edema 10/31/23 10/28/24 Unknown History methylprednisolone 4 mg tablets in See Taper PO DIRECTED 10/28/24 10/28/24 10/27/24 History a dose pack polyethylene glycol 3350 17 17 g PO DAILY PRN Constipation 10/28/24 10/28/24 Unknown History gram/dose oral powder (Miralax) Physical Exam Vital Signs: Vital Signs: Last Vital Signs Temp 97.8 F 10/28/24 16:00 Pulse 56 10/28/24 16:00 Resp 18 10/28/24 16:00 BP 162/67 H 10/28/24 16:00 Pulse Ox 93 10/28/24 16:00 O2 Del Method Room Air 10/28/24 13:38 BMI result Body Mass Index 33.5 Const: General: cooperative HEENT: Head: Yes normal to inspection Face and sinus: Yes normal facial exam Mouth: Normal oral and palatal mucosa present Teeth and gingiva: dentition normal Eyes: General: appearance normal, both eyes and all related structures Pupils: Equal, round and reactive pupils present Resp: Effort & Inspection: normal respiratory effort Cardio: Rate: regular rate Rhythm: regular rhythm GI: Palpation (GI): Soft to palpation and nontender : Other: discomfort over bladder area Skin: General skin exam: no rashes or lesions noted Neuro: General: moves all extremities Cranial nerves: Yes Equal, round and reactive pupils present Extrem: General: Yes normal to inspection Psych: Appearance: grossly normal Results Labs 10/28/24 13:32 10/28/24 13:32 Labs: Short CBC 10/28/24 Range/Units 13:32 WBC 11.8 H (4.8-10.8) X10*3/uL Hgb 10.7 L (12.0-16.0) g/dl Hct 32.6 L (37.0-47.0) % Plt Count 140 L (160-400) X10*3/uL BMP 10/28/24 13:32 Sodium 141 Potassium 4.9 Chloride 105 Carbon Dioxide 28 BUN 37 H Creatinine 1.58 H Calcium 10.0 Urine 10/28/24 Range/Units 14:07 Urine Color Yellow Urine Appearance Turbid Urine pH 6.5 (5.0-9.0) Ur Specific [place] 1.020 (1.005-1.025) Urine Protein 100 (2+) H (Neg-Trace) mg/dL Urine Glucose (UA) Negative (Negative) mg/dL Assessment and Plan (1) Recurrent UTI: Status: Acute Plan She is unfortunately colonized with Pseudomonas and stenotrophomonas which present as acute infections about monthly. She has both CLL and its treatment,ibrutinib, as risk factors for recurrent UTIs. She has had sepsis in past She has intolerance or allergy to many medication so cannot tolerate oral antibiotics. Methenamine acidification of urine didnt work. She has CKD of 30 or less which enables daily IV antibiotics. Would give IV Cefepime 1 g daily for 14 d (d/w Marc Lopez of pharmacy)as the longer duration may help cover any possible pyelonephritis with weekly creatinine and CBC. Would not treat stenotrophomonas at lower level bacteria at this time and sulfa/tmp is more nephrotoxic. Would not do test of cure as will likely remain colonized with those bacteria at high levels chronically and only treat when symptomatic. Eradication is not possible. Will d/w Oncology ?alterative to ibratinib.
[2024-10-28] MEDS: cefEPime HCl 1 GM in 0.9 % Sodium Chloride 50 ML IV (17:55)
[2024-10-28] MEDS: Melatonin 3 MG TABLET 6 MG PO (19:54)
[2024-10-28] MEDS: Atorvastatin Calcium 80 MG TABLET PO (19:54)
[2024-10-28] MEDS: metFORMIN HCl 1,000 MG TABLET 1000 MG PO (19:55)
[2024-10-28] MEDS: Famotidine 20 MG TABLET 40 MG PO (19:55)
[2024-10-28 20:36] LABS: Glucose, Whole Blood 181 mg/dL (60-115)
[2024-10-28 23:59] VITALS: BP 142/70; PULSE 53; RESP 18; TEMP 36.5; O2SAT 96
[2024-10-29 07:08] VITALS: BP 164/58; PULSE 59; RESP 18; TEMP 36.3; O2SAT 94
[2024-10-29 07:32] LABS: Glucose, Whole Blood 114 mg/dL (60-115)
--- NOTE | 2024-10-29 08:23 | P.PNUR_ITS ---
Subjective Subjective Date of Service: 10/29/24 Interval history: Seen by infectious disease Consult note appreciated Will initiate recommendations IV cefepime 1 g q.day for 14 days Will start treatment in hospital Physical Exam 2 Vital Signs: Vital Signs: Last Vital Signs Temp 97.4 F 10/29/24 07:08 Pulse 59 10/29/24 07:08 Resp 18 10/29/24 07:08 BP 164/58 H 10/29/24 07:08 Pulse Ox 94 10/29/24 07:08 O2 Del Method Room Air 10/29/24 07:08 O2 Flow Rate 2 10/28/24 23:59 BMI result Body Mass Index 33.5 Const: General: cooperative, healthy appearing, comfortable and no acute distress Orientation/consciousness: patient oriented x3 HEENT: Face and sinus: Yes normal facial exam Mouth: moist mucous membranes Neck: Neck: Yes normal visual inspection, Yes full ROM and Yes trachea midline Chest: Chest palpation & inspection: normal inspection of the chest Resp: Effort & Inspection: normal respiratory effort, able to speak in complete sentences and no respiratory distress GI: Inspection: Yes normal to inspection Back/Spine/Pelvis: Cervical Spine: normal cervical lordosis Thoracic/Lumbar Spine: thoracic and lumbar spine normal to inspection Skin: General skin exam: no rashes or lesions noted Neuro: General: patient oriented x3, tone normal and moves all extremities Extrem: General: Yes normal to inspection and Yes capillary refill normal Urology Results Labs 10/28/24 13:32 10/28/24 13:32 Labs: Laboratory Results - last 24 hr 10/28/24 10/28/24 10/28/24 13:32 13:43 14:07 WBC 11.8 H RBC 3.48 L Hgb 10.7 L Hct 32.6 L MCV 93.7 MCH 30.7 MCHC 32.8 RDW 13.5 Plt Count 140 L MPV 12.2 Immature Gran % (Auto) 4.3 H Neut % (Auto) 55.4 Lymph % (Auto) 28.1 [place] % (Auto) 11.3 H Eos % (Auto) 0.3 Baso % (Auto) 0.6 Lymph # (Auto) 3.3 [place] # (Auto) 1.3 H Eos # (Auto) 0.0 Baso # (Auto) 0.1 Abs Immat Gran (auto) 0.51 H Absolute Neuts (auto) 6.6 Absolute Nucleated RBC 0.000 Nucleated RBC % (auto) 0.0 Sodium 141 Potassium 4.9 Chloride 105 Carbon Dioxide 28 Anion Gap 13 BUN 37 H Creatinine 1.58 H Estim Creat Clear Calc 31.6 Estimated GFR 32 POC Glucose 90 Random Glucose 99 Calcium 10.0 Urine Color Yellow Urine Appearance Turbid Urine pH 6.5 Ur Specific [place] 1.020 Urine Protein 100 (2+) H Urine Glucose (UA) Negative Urine Ketones Negative Urine Blood Moderate (2+) H Urine Nitrite Negative Ur Leukocyte Esterase Large (3+) H Urine RBC >20 H Urine WBC >50 H Ur Squamous Epith Cells 0-2 Urine Bacteria 4+ Hyaline Casts 0-2 10/28/24 10/28/24 10/29/24 16:01 20:31 07:27 WBC RBC Hgb Hct MCV MCH MCHC RDW Plt Count MPV Immature Gran % (Auto) Neut % (Auto) Lymph % (Auto) [place] % (Auto) Eos % (Auto) Baso % (Auto) Lymph # (Auto) [place] # (Auto) Eos # (Auto) Baso # (Auto) Abs Immat Gran (auto) Absolute Neuts (auto) Absolute Nucleated RBC Nucleated RBC % (auto) Sodium Potassium Chloride Carbon Dioxide Anion Gap BUN Creatinine Estim Creat Clear Calc Estimated GFR POC Glucose 127 H 181 H 114 Random Glucose Calcium Urine Color Urine Appearance Urine pH Ur Specific [place] Urine Protein Urine Glucose (UA) Urine Ketones Urine Blood Urine Nitrite Ur Leukocyte Esterase Urine RBC Urine WBC Ur Squamous Epith Cells Urine Bacteria Hyaline Casts Progress Note: A&P Assessment and plan (1) Neurogenic urinary bladder disorder: Status: Acute (2) Complicated urinary tract infection: Status: Acute Plan Start cefepime Time Spent With Patient Time: Total time managing care of this patient today ____ minutes. Progress Note: Quality Stroke Does the patient have a stroke diagnosis?: No
[2024-10-29 09:21] VITALS: BP 180/70
[2024-10-29] MEDS: amLODIPine Besylate 10 MG TABLET PO (09:21)
[2024-10-29] MEDS: Ascorbic Acid 500 MG TABLET 1000 MG PO (09:21)
[2024-10-29] MEDS: metFORMIN HCl 500 MG TABLET PO ×2 (09:22→21:11)
[2024-10-29] MEDS: Pregabalin 150 MG CAPSULE PO ×2 (10:17→21:10)
[2024-10-29 11:35] LABS: Glucose, Whole Blood 114 mg/dL (60-115)
--- NOTE | 2024-10-29 13:07 | MHC.CM.PN ---
PT REPORTS SHE LIVES WITH HER AND IS INDEPENDENT WITH CARE SHE USES A ROLLATOR FOR DME AND HAS NO SERVICES HCPP ON FILE PCP: ELLEN VELÁZQUEZ IMM DELIVERED PT REPORTS SHE HAS BEEN COMING IN FOR IV ABX FOR A LONG TIME AND HAS ASKED TO HAVE THEM SET UP AT HOME CM EXPLAINED THAT SOMEONE WOULD NEED TO BE ABLE TO ASSIST HER FOR IT TO BE DONE AT HOME SHE SAYS HER CAN HELP PT AND WILL BE PRESENT TOMORROW MORNING FOR A TEACH BY [facility] RN ONCE TEACH IS COMPLETED, CM WILL MEET WITH THEM TO DETERMINE IF IV ABX AT HOME IS A SAFE PLAN WILL TRANSPORT
[2024-10-29 15:29] VITALS: BP 172/72; PULSE 63; RESP 18; TEMP 36.7; O2SAT 94
[2024-10-29 16:28] LABS: Glucose, Whole Blood 131 mg/dL (60-115)
[2024-10-29] MEDS: cefEPime HCl 1 GM in 0.9 % Sodium Chloride 50 ML IV (17:49)
[2024-10-29] MEDS: 0.9 % Sodium Chloride Flush 10 ML SYRINGE 5 ML IVFLUSH ×2 (17:55→21:13)
[2024-10-29 18:43] VITALS: BP 166/73; PULSE 63
--- NOTE | 2024-10-29 18:54 | PC.NURSE ---
Evening BP elevated at 166/73. Patient asymptomatic and resting comfortably in chair. Dr. Hayes notified. Home medication Carvedilol ordered- see MAR for details.
[2024-10-29 19:20] VITALS: BP 182/72; PULSE 66; RESP 18; TEMP 36.2; O2SAT 93
[2024-10-29 20:40] LABS: Glucose, Whole Blood 199 mg/dL (60-115)
[2024-10-29] MEDS: Famotidine 20 MG TABLET 40 MG PO (21:10)
[2024-10-29] MEDS: Melatonin 3 MG TABLET 6 MG PO (21:10)
[2024-10-29] MEDS: Atorvastatin Calcium 80 MG TABLET PO (21:10)
[2024-10-29 21:11] VITALS: BP 182/72; PULSE 66
[2024-10-29] MEDS: carvediloL 25 MG TABLET PO (21:11)
[2024-10-29] MEDS: 0.9 % Sodium Chloride Flush 3 ML SYRINGE IVFLUSH (21:12)
[2024-10-30] VITALS: BP 129/61; PULSE 56; RESP 18; TEMP 36.8; O2SAT 97
[2024-10-30 07:24] VITALS: BP 178/92; PULSE 60; RESP 18; TEMP 36.7; O2SAT 95
[2024-10-30 07:32] LABS: Glucose, Whole Blood 125 mg/dL (60-115)
[2024-10-30 09:35] VITALS: BP 176/75; PULSE 63
[2024-10-30] MEDS: amLODIPine Besylate 10 MG TABLET PO (09:39)
[2024-10-30] MEDS: Pregabalin 150 MG CAPSULE PO ×2 (09:39→21:08)
[2024-10-30] MEDS: metFORMIN HCl 500 MG TABLET PO ×2 (09:39→21:08)
[2024-10-30] MEDS: Ascorbic Acid 500 MG TABLET 1000 MG PO (09:39)
[2024-10-30] MEDS: carvediloL 25 MG TABLET PO ×2 (09:39→21:08)
[2024-10-30] MEDS: 0.9 % Sodium Chloride Flush 10 ML SYRINGE 5 ML IVFLUSH (09:43)
[2024-10-30 11:36] LABS: Glucose, Whole Blood 130 mg/dL (60-115)
--- NOTE | 2024-10-30 12:30 | MHC.CM.PN ---
BEDSIDE TEACH COMPLETED BY [facility] RN, SHE REPORTS BOTH PT AND APPEARED ABLE TO MANAGE THE ABX INFUSIONS AT HOME PER MD, PT WILL STAY UNTIL SATURDAY [facility] IS ABLE TO PROVIDE SOC ON SATURDAY [facility] WILL ARRANGE MED/SUPPLY DELIVERY FOR SATURDAY AFTERNOON VS SATURDAY MORNING WILL TRANSPORT
--- NOTE | 2024-10-30 13:00 | P.PNUR_ITS ---
Subjective Subjective Date of Service: 10/30/24 Interval history: Receiving therapy daily [facility] available Saturday at home Will alter administration time till 13:00 from 18:00 Kaitlin will be able to discharge on Saturday after receiving daily dose Physical Exam 2 Vital Signs: Vital Signs: Last Vital Signs Temp 98.1 F 10/30/24 07:24 Pulse 63 10/30/24 09:35 Resp 18 10/30/24 07:24 BP 176/75 H 10/30/24 09:35 Pulse Ox 95 10/30/24 07:24 O2 Del Method Nasal Cannula 10/30/24 07:24 O2 Flow Rate 2 10/30/24 07:24 BMI result Body Mass Index 33.5 Const: General: cooperative, healthy appearing, comfortable and no acute distress Orientation/consciousness: patient oriented x3 HEENT: Face and sinus: Yes normal facial exam Mouth: moist mucous membranes Neck: Neck: Yes normal visual inspection, Yes full ROM and Yes trachea midline Chest: Chest palpation & inspection: normal inspection of the chest Resp: Effort & Inspection: normal respiratory effort, able to speak in complete sentences and no respiratory distress GI: Inspection: Yes normal to inspection Back/Spine/Pelvis: Cervical Spine: normal cervical lordosis Thoracic/Lumbar Spine: thoracic and lumbar spine normal to inspection Skin: General skin exam: no rashes or lesions noted Neuro: General: patient oriented x3, tone normal and moves all extremities Extrem: General: Yes normal to inspection and Yes capillary refill normal Urology Results Labs 10/28/24 13:32 10/28/24 13:32 Labs: Laboratory Results - last 24 hr 10/29/24 10/29/24 10/30/24 16:15 20:31 07:26 POC Glucose 131 H 199 H 125 H 10/30/24 11:21 POC Glucose 130 H Progress Note: A&P Assessment and plan (1) Complicated urinary tract infection: Status: Acute Plan Daily antibiotics for 14 days Discharge post 1pm on Saturday Time Spent With Patient Time: Total time managing care of this patient today ____ minutes. Progress Note: Quality Stroke Does the patient have a stroke diagnosis?: No
[2024-10-30] MEDS: cefEPime HCl 1 GM in 0.9 % Sodium Chloride 50 ML IV (14:32)
[2024-10-30 16:00] VITALS: BP 132/62; PULSE 62; RESP 16; TEMP 37; O2SAT 94
[2024-10-30 16:38] LABS: Glucose, Whole Blood 158 mg/dL (60-115)
[2024-10-30 20:05] LABS: Glucose, Whole Blood 171 mg/dL (60-115)
[2024-10-30] MEDS: Famotidine 20 MG TABLET 40 MG PO (21:08)
[2024-10-30] MEDS: Atorvastatin Calcium 80 MG TABLET PO (21:08)
[2024-10-30] MEDS: Melatonin 3 MG TABLET 6 MG PO (21:12)
[2024-10-30 23:10] VITALS: BP 151/66; PULSE 56; RESP 16; TEMP 36.2; O2SAT 97
[2024-10-31 06:55] LABS: MANUAL DIFF FLAG NO
[2024-10-31 07:04] LABS: Basophils Absolute Auto 0.1 X10*3/uL (0.0-0.2); Basophils Percent Auto 0.7 % (0-2); Eosinophils Absolute Auto 0.2 X10*3/uL (0.0-0.4); Eosinophils Percent Auto 1.9 % (0-4); Hematocrit 30.6 % (37.0-47.0); Hemoglobin 10.1 g/dl (12.0-16.0); Imm Gran Abs Auto 0.31 X10*3/uL (0.00-0.03); Imm Gran Pct Auto 3.7 % (0.0-0.4); Lymphocytes Absolute Auto 2.5 X10*3/uL (1.2-4.9); Mean Corpuscular Volume 93.9 fL (80.0-98.0); Mean Platelet Volume 11.7 fL (9.4-12.3); Monocytes Absolute Auto 0.9 X10*3/uL (0.1-1.2); Monocytes Percent Auto 10.2 % (2-11); Neutrophils Absolute Auto 4.5 x10*3/uL (2.0-8.3); Neutrophils Percent Auto 53.5 % (45-73); Platelet Count 121 X10*3/uL (160-400); Red Blood Count 3.26 X10*6/uL (4.20-5.50); Red Cell Distribution Width 13.6 % (11.0-16.0); White Blood Count 8.4 X10*3/uL (4.8-10.8)
[2024-10-31 07:13] LABS: Anion Gap 12 (12-20); Blood Urea Nitrogen 31 mg/dL (9-16); Calcium 9.1 mg/dL (8.4-10.2); Carbon Dioxide 25 mmol/L (22-29); Chloride 107 mmol/L (96-108); Creatinine Clr Calc Pharmacy 38.7; Estimated Glomerular Filt Rate 40; Glucose Random 115 mg/dL (60-115); Potassium 4.4 mmol/L (3.3-5.1); Sodium 140 mmol/L (135-145)
[2024-10-31 07:25] VITALS: BP 134/62; PULSE 58; RESP 18; TEMP 36; O2SAT 95
[2024-10-31 07:35] LABS: Glucose, Whole Blood 120 mg/dL (60-115)
[2024-10-31 08:54] VITALS: BP 134/62; PULSE 58
[2024-10-31] MEDS: carvediloL 25 MG TABLET PO ×2 (08:54→21:30)
[2024-10-31 08:55] VITALS: BP 134/62
[2024-10-31] MEDS: Ascorbic Acid 500 MG TABLET 1000 MG PO (08:55)
[2024-10-31] MEDS: amLODIPine Besylate 10 MG TABLET PO (08:55)
[2024-10-31] MEDS: metFORMIN HCl 500 MG TABLET PO ×2 (08:55→21:29)
[2024-10-31] MEDS: Pregabalin 150 MG CAPSULE PO ×2 (08:55→21:29)
[2024-10-31 11:30] LABS: Glucose, Whole Blood 117 mg/dL (60-115)
[2024-10-31] MEDS: cefEPime HCl 1 GM in 0.9 % Sodium Chloride 50 ML IV (13:04)
[2024-10-31] MEDS: 0.9 % Sodium Chloride Flush 3 ML SYRINGE IVFLUSH (14:18)
[2024-10-31] MEDS: 0.9 % Sodium Chloride Flush 10 ML SYRINGE 5 ML IVFLUSH ×2 (14:19→21:30)
[2024-10-31 15:06] VITALS: BP 158/62; PULSE 59; RESP 16; TEMP 36.2; O2SAT 96
--- NOTE | 2024-10-31 15:35 | MHC.CM.PN ---
CURRENT PLAN IS TO DC PT HOME TOMORROW WITH [facility] AND [facility] HI [facility] AND [facility] UPDATED
[2024-10-31 16:05] LABS: Glucose, Whole Blood 126 mg/dL (60-115)
[2024-10-31 19:08] VITALS: BP 148/64; PULSE 66; RESP 16; TEMP 36.3; O2SAT 91
--- NOTE | 2024-10-31 19:29 | W.PM.IDCN ---
History of Present Illness Data of Consult Service Date: 10/31/24 Primary Care Provider: Ricardo Breen MD [facility] Past Medical History Medical History Osteoarthritis Morbid obesity Allergy to multiple antibiotics Depression Arthritis of left hip Wears dentures Neurogenic urinary bladder disorder History of blood transfusion History of CVA (cerebrovascular accident) Seasonal allergies History of numbness PONV (postoperative nausea and vomiting) Self-catheterizes urinary bladder Diabetes with neurologic complications Type 2 diabetes mellitus with unspecified complications Anemia CLL (chronic lymphocytic leukemia) Sleep apnea Diabetes mellitus CLL (chronic lymphocytic leukemia) Arthritis Fibromyalgia Hypercholesterolemia Hypertension History of bilateral breast cancer Urinary retention with incomplete bladder emptying Family History Family History Mother Breast cancer Father Heart disease Father Lung cancer Mother Colon cancer Brother Pancreatic cancer Family history: reviewed and not pertinent Surgical History Surgical History History of open heart surgery (~01/31/24) History of total left hip replacement S/P Botox injection History of suprapubic catheter S/P left breast biopsy History of esophagogastroduodenoscopy (EGD) Hx of colonoscopy History of bladder repair surgery History of total hysterectomy S/P breast biopsy, right History of back surgery History of biopsy of bladder Social History Social History Household Members: Spouse Housing: House Housing Other:: has chair lift for second floor access Are you a primary career technical supervisor to a significant other at home: No Do you presently have visiting nurse or other home services: No Alcohol intake: never Comment: patient refused telesiter,removed per pt request Patient Tobacco Use Status: Never used Tobacco Advance Directives Date on File: 07/30/23 service: No Current occupational status: retired Meds Allergies Allergy/AdvReac Type Severity Reaction Status Date / Time amoxicillin [AMOXICILLIN] Allergy Severe stroke, Verified 10/23/24 08:46 blood clots ciprofloxacin [From CIPRO] Allergy Severe ANAPHYLAXIS Verified 10/23/24 08:46 Iodinated Contrast Media Allergy Severe HIVES Verified 10/23/24 08:46 [IV DYE, IODINE CONTAINING CONTRAST ] levofloxacin Allergy Severe Anaphylaxis Verified 10/23/24 08:46 liraglutide Allergy Severe Headache Verified 10/23/24 08:46 Penicillins Allergy Severe stroke, Verified 10/23/24 08:46 blood clots FREYA Inhibitors Allergy Intermediate Cough Verified 10/23/24 08:46 ARB-Angiotensin Receptor Allergy Intermediate Cough Verified 10/23/24 08:46 Antagonist cefpodoxime Allergy Intermediate Dizziness, Verified 10/23/24 08:46 nausea doxazosin Allergy Intermediate Shortness Verified 10/23/24 08:46 of Breath fluticasone [Advair Diskus] Allergy Intermediate Anxiety Verified 10/23/24 08:46 gabapentin [From Neurontin] Allergy Intermediate Headache Verified 10/23/24 08:46 hydralazine Allergy Intermediate Shortness Verified 10/23/24 08:46 of Breath latex Allergy Intermediate Hives Verified 10/23/24 08:46 linezolid Allergy Intermediate Nausea and Verified 10/23/24 08:46 Vomiting meloxicam Allergy Intermediate Unknown Verified 10/23/24 08:46 salmeterol [Advair Diskus] Allergy Intermediate Anxiety Verified 10/23/24 08:46 Tetanus Vaccines and Toxoid Allergy Intermediate Swelling Verified 10/23/24 08:46 torsemide Allergy Intermediate Shortness Verified 10/23/24 08:46 of Breath cephalexin [Keflex] Allergy Mild Nausea Verified 10/23/24 08:46 Active Medications: Current Medications Acetaminophen (Acetaminophen 325 Mg Tablet) 650 mg PO Q6H PRN PRN Reason: Pain, Mild 1-3,fever,headache Amlodipine Besylate (Amlodipine Besylate 10 Mg Tablet) 10 mg PO DAILY [facility]; Protocol Last Admin: 10/31/24 08:55 Dose: 10 mg Ascorbic Acid (Ascorbic Acid 500 Mg Tablet) 1,000 mg PO DAILY JORGE Last Admin: 10/31/24 08:55 Dose: 1,000 mg Atorvastatin Calcium (Atorvastatin Calcium 80 Mg Tablet) 80 mg PO BEDTIME JORGE Last Admin: 10/30/24 21:08 Dose: 80 mg Carvedilol (Carvedilol 25 Mg Tablet) 25 mg PO BID JORGE; Protocol Last Admin: 10/31/24 08:54 Dose: 25 mg Famotidine (Famotidine 20 Mg Tablet) 40 mg PO BEDTIME JORGE Last Admin: 10/30/24 21:08 Dose: 40 mg Furosemide (Furosemide 20 Mg Tablet) 20 mg PO DAILY PRN; Protocol PRN Reason: Edema Cefepime HCl 1 gm/ Sodium (Chloride) 50 mls @ 100 mls/hr IV Q24H [facility] Last Infusion: 10/31/24 13:57 Dose: Infused Ibuprofen (Ibuprofen 400 Mg Tablet) 400 mg PO Q6H PRN PRN Reason: Fever or Pain, Mild (Pain Scale 1-3) Magnesium Hydroxide (Milk Of Magnesia 30 Ml Oral.Susp) 30 ml PO DAILY PRN PRN Reason: Constipation Melatonin (Melatonin 3 Mg Tablet) 6 mg PO BEDTIME PRN PRN Reason: Insomnia Last Admin: 10/30/24 21:12 Dose: 6 mg Metformin HCl (Metformin Hcl 500 Mg Tablet) 500 mg PO BID [facility] Last Admin: 10/31/24 08:55 Dose: 500 mg Non-Formulary Medication (Ibrutinib [Imbruvica]) 420 mg PO DAILY [facility] Ondansetron HCl (Ondansetron Hcl 4 Mg/2 Ml Vial) 4 mg IVPUSH Q8H PRN PRN Reason: Nausea and Vomiting Pregabalin (Pregabalin 150 Mg Capsule) 150 mg PO BID [facility] Last Admin: 10/31/24 08:55 Dose: 150 mg Sodium Chloride (0.9 % Sodium Chloride Flush 3 Ml Syringe) 3 ml IVFLUSH [facility] Last Admin: 10/31/24 14:18 Dose: 3 ml Sodium Chloride (0.9 % Sodium Chloride Flush 10 Ml Syringe) 5 ml IVFLUSH [facility] Last Admin: 10/31/24 14:19 Dose: 5 ml Home Medications ?Medication ?Instructions ?Recorded ?Confirmed ?Last Taken ?Type citalopram 20 mg tablet 20 mg PO DAILY 07/21/20 10/28/24 04/16/22 History duloxetine 60 mg capsule,delayed 60 mg PO DAILY 07/21/20 10/28/24 04/16/22 History release spironolactone 25 mg tablet 25 mg PO DAILY 07/21/20 10/28/24 Unknown History amlodipine 10 mg tablet 10 mg PO DAILY 03/23/21 10/28/24 04/16/22 History metformin 1,000 mg tablet 1,000 mg PO BID 04/19/21 10/28/24 Unknown History carvedilol 25 mg tablet 25 mg PO BID 05/31/21 10/28/24 04/16/22 History blood sugar diagnostic (Accu-Chek #10 ea 09/04/22 09/15/24 Unknown History Guide test strips) coenzyme Q10 100 mg capsule 100 mg PO BEDTIME 01/03/23 10/28/24 Unknown History (CoQ-10) magnesium 250 mg tablet 250 mg PO BEDTIME 01/03/23 10/28/24 Unknown History multivitamin 1 tab PO DAILY 01/03/23 10/28/24 Unknown History pregabalin 150 mg capsule 150 mg PO BID 01/03/23 10/28/24 Unknown History furosemide 20 mg tablet 20 mg PO DAILY PRN Edema 10/31/23 10/28/24 Unknown History methylprednisolone 4 mg tablets in See Taper PO DIRECTED 10/28/24 10/28/24 10/27/24 History a dose pack polyethylene glycol 3350 17 17 g PO DAILY PRN Constipation 10/28/24 10/28/24 Unknown History gram/dose oral powder (Miralax) Physical Exam Vital Signs: Vital Signs: Last Vital Signs Temp 97.3 F 10/31/24 19:08 Pulse 66 10/31/24 19:08 Resp 16 10/31/24 19:08 BP 148/64 H 10/31/24 19:08 Pulse Ox 91 L 10/31/24 19:08 O2 Del Method Room Air 10/31/24 19:08 O2 Flow Rate 2 10/30/24 23:10 BMI result Body Mass Index 33.5 Results Labs 10/31/24 06:32 10/31/24 06:32 Labs: Short CBC 10/31/24 Range/Units 06:32 WBC 8.4 (4.8-10.8) X10*3/uL Hgb 10.1 L (12.0-16.0) g/dl Hct 30.6 L (37.0-47.0) % Plt Count 121 L (160-400) X10*3/uL BMP 10/31/24 06:32 Sodium 140 Potassium 4.4 Chloride 107 Carbon Dioxide 25 BUN 31 H Creatinine 1.29 Calcium 9.1 D
[2024-10-31 20:18] LABS: Glucose, Whole Blood 176 mg/dL (60-115)
[2024-10-31] MEDS: Famotidine 20 MG TABLET 40 MG PO (21:30)
[2024-10-31] MEDS: Atorvastatin Calcium 80 MG TABLET PO (21:30)
[2024-10-31] MEDS: Melatonin 3 MG TABLET 6 MG PO (21:30)
[2024-10-31 23:14] VITALS: BP 152/69; PULSE 61; RESP 20; TEMP 36.2; O2SAT 96
[2024-11-01 07:20] VITALS: BP 147/68; PULSE 60; RESP 18; TEMP 36; O2SAT 96
[2024-11-01 07:26] LABS: Glucose, Whole Blood 133 mg/dL (60-115)
[2024-11-01] MEDS: carvediloL 25 MG TABLET PO (08:12)
[2024-11-01] MEDS: metFORMIN HCl 500 MG TABLET PO (08:12)
[2024-11-01] MEDS: amLODIPine Besylate 10 MG TABLET PO (08:12)
[2024-11-01] MEDS: Ascorbic Acid 500 MG TABLET 1000 MG PO (08:12)
[2024-11-01] MEDS: Pregabalin 150 MG CAPSULE PO (08:13)
[2024-11-01] MEDS: 0.9 % Sodium Chloride Flush 3 ML SYRINGE IVFLUSH (08:13)
[2024-11-01] MEDS: 0.9 % Sodium Chloride Flush 10 ML SYRINGE 5 ML IVFLUSH (09:37)
[2024-11-01 11:36] LABS: Glucose, Whole Blood 200 mg/dL (60-115)
--- NOTE | 2024-11-01 12:22 | PM.DS ---
DS: Providers Provider Date of Service: 11/01/24 Date of admission: 10/28/24 12:56 Date of discharge: 11/01/24 Primary care physician: Ricardo Breen MD Admitting clinician: Ceferino Hayes Consults: 10/28/24 12:53 Consult to Infectious Diseases Stat Consulting Provider: [facility] Reason for consultation: complicated UTI with IV only Has provider been notified: No Attending physician on discharge: Ceferino Hayes Discharging clinician: Aliyah Smith DS: Diagnosis Discharge Diagnosis (1) Complicated urinary tract infection: Status: Acute DS: Summary Hospital Course Hospital Course: Kaitlin is a 79 year old female with prolonged history of complicated UTI, neurogenic bladder with incomplete emptying, multi resistant disease. Has been managed with suprapubic tube for bladder emptying Significant past medical history with diabetes, CLL, immunosuppression. Has had complicated recurrent urinary tract infections, only available for IV therapy. IV port was placed 6 months ago and has been accessed as outpatient for numerous courses of therapy. Admission required for delivery of IV antibiotics more than once per day. Infectious disease consult has been requested to manage antibiotic choice and course of therapy Status at Discharge Cognitive/behavioral status at discharge: stable Overall status at discharge: patient is back to baseline Time Attestation Total time managing care of this patient today: 33 mintues. Discharge Coordination Time (in mins): 33 minutes Quality: Safe Use of Opioids Does Pt have an Active Cancer Diagnosis on the Problem List?: Yes Opioid Measure Date for [facility] Report: 10/02/24 Opioid Measure Time for [facility] Report: 13:30 Quality: Stroke Does the patient have a stroke diagnosis?: No Physical Exam Vital Signs: Vital Signs: Last Vital Signs Temp 96.8 F 11/01/24 07:20 Pulse 60 11/01/24 07:20 Resp 18 11/01/24 07:20 BP 147/68 H 11/01/24 07:20 Pulse Ox 96 11/01/24 07:20 O2 Del Method Room Air 11/01/24 07:20 O2 Flow Rate 2 10/31/24 23:14 BMI result Body Mass Index 33.5 DS: Data Data Completed and Pending Completed studies during hospitalization [Text1]: Procedures Change Drainage Device in Bladder, External Approach (01/06/23) Insertion of Infusion Device into Right Basilic Vein, Percutaneous Approach (10/30/22) Replacement of Left Hip Joint with Ceramic Synthetic Substitute, Uncemented, Open Approach (01/06/23) Transfusion of Nonautologous Red Blood Cells into Peripheral Vein, Percutaneous Approach (01/06/23) Labs on day of discharge: Laboratory Results - last 24 hr 10/31/24 10/31/24 11/01/24 16:01 20:14 07:22 POC Glucose 126 H 176 H 133 H 11/01/24 11:33 POC Glucose 200 H Discharge Plan Discharge Anticipated Discharge Date/Time: 11/01/24 14:00 Patient Disposition: Home, Self-Care Discharge Diagnosis: complicated UTI Referrals: Ricardo Breen MD [Primary Care Provider] - 1 Week Discharge Medications: New cefepime 1 gram Recon Soln 1 g IV Q24H Qty: 10 0RF Continued ascorbic acid (vitamin C) 1,000 mg tablet 1,000 mg PO DAILY 90 Days Qty: 90 4RF famotidine 40 mg tablet 40 mg PO BEDTIME Qty: 90 1RF atorvastatin 80 mg tablet 80 mg PO QPM Qty: 90 3RF (DME) walker Misc See Rx Instructions .ROUTE .MEDSUPPLY Qty: 1 0RF Rx Instructions: Folding front wheeled walker (DME) walker Misc See Rx Instructions .ROUTE .MEDSUPPLY Qty: 1 0RF Rx Instructions: Folding front wheeled walker ondansetron 4 mg Tablet,Disintegrating 4 mg PO Q6H PRN (Reason: Nausea) Qty: 60 6RF (DME) bra, mastectomy Crystals Qty: 6 3RF Rx Instructions: As Directed ferrous sulfate [iron] 325 mg (65 mg iron) Tablet 325 mg PO DAILY Qty: 120 9RF (DME) bra, mastectomy Crystals Qty: 7 0RF Rx Instructions: As Directed Imbruvica 420 mg Tablet 420 mg PO DAILY Qty: 90 4RF oxybutynin chloride 5 mg tablet 5 mg PO BID PRN (Reason: Bladder Spasms) Qty: 60 4RF pregabalin 150 mg capsule 150 mg PO BID multivitamin Tablet 1 tab PO DAILY magnesium 250 mg Tablet 250 mg PO BEDTIME coenzyme Q10 [CoQ-10] 100 mg Capsule 100 mg PO BEDTIME acetaminophen 325 mg Tablet 650 mg PO Q6H PRN (Reason: Pain, Mild (Pain Scale 1-3)) 30 Days Qty: 240 0RF methylprednisolone 4 mg tablets,dose pack See Taper PO DIRECTED Taper: Prednisone 24 mg daily for 1 Day and 0 Hour 20 mg daily for 1 Day and 0 Hour 16 mg daily for 1 Day and 0 Hour 12 mg daily for 1 Day and 0 Hour 8 mg daily for 1 Day and 0 Hour 4 mg daily for 1 Day and 0 Hour Patient Comments: 10/28: patient reports she is on day 5 (8 mg) and the last tab tomorrow (4 mg). Day 5 was not taken today. polyethylene glycol 3350 [Miralax] 17 gram/dose powder 17 g PO DAILY PRN (Reason: Constipation) Rx Instructions: As directed by gastroenterology department at [facility] spironolactone 25 mg tablet 25 mg PO DAILY duloxetine 60 mg capsule,delayed release(DR/EC) 60 mg PO DAILY citalopram 20 mg tablet 20 mg PO DAILY metformin 1,000 mg tablet 1,000 mg PO BID carvedilol 25 mg tablet 25 mg PO BID amlodipine 10 mg tablet 10 mg PO DAILY aspirin [Enteric Coated Aspirin] 81 mg tablet,delayed release (DR/EC) 81 mg PO DAILY Qty: 90 4RF (DME) Accu-Chek Guide test strips Strip See Rx Instructions .ROUTE DAILY Qty: 10 Rx Instructions: As directed esomeprazole magnesium [Nexium] 40 mg capsule,delayed release(DR/EC) 40 mg PO BID Qty: 60 5RF furosemide 20 mg tablet 20 mg PO DAILY PRN (Reason: Edema) Discharge Orders: Discharge Order (Routine); Ordered 11/01/24 Ordered By: Aliyah Smith Diet: Advance to usual diet Activity on Discharge: As tolerated Stand Alone Forms: Patient Portal Discharge page Print Language: Citizen Of [place] Care Plan Goals: [facility]NA to continue IV abx therapy via port Health Concerns: immunosupressed Plan of Treatment: [facility]NA to cont IV abx therapy, urology fu Assessment: Stable, afebrile
[2024-11-01] MEDS: cefEPime HCl 1 GM in 0.9 % Sodium Chloride 50 ML IV (12:52)
--- NOTE | 2024-11-01 13:41 | MHC.CM.PN ---
PT WILL DC HOME TODAY WITH [facility] SHE CONFIRMS [facility] HAS ALREADY DELIVERED MEDS AND SUPPLIES [facility] WILL PROVIDE SOC TOMORROW [facility] WILL PROVIDE TRANSPORT
[2024-11-01 14:13] VITALS: BP 152/67; PULSE 68; RESP 18; TEMP 36.4; O2SAT 96
--- NOTE | 2024-11-03 09:02 | P.CDIM_ITS ---
PROVIDER RESPONSE TEXT: To clarify, the appropriate diagnosis supported by the clinical indicators: Clinically unable to determine (explain): Patient has base line multiple immunocompromising condition s - treated for CLL on immunosuppressing drugs, has insulin dependent diabetes. The SPT was placed since she had severe recu rrent UTI. With SPT in place she has less frequent UTI but still has them QUERY TEXT: PHYSICIAN'S DOCUMENTATION REQUEST Date of Query: 10/30/2024 08:48 AM EST Patient Name: Kaitlin Ortiz Admit Date: 10/28/2024 Dear Ceferino Hayes MD, A review of the medical record indicates additional documentation may be needed. Please review below and update the documentation accordingly. Documentation includes the conditions of UTI and suprapubic tube. Clinical Indicators: hx complicated UTI, neurogenic bladder with incomplete emptying Seen by ID for antibiotic treatment recommendations Please clarify the relationship between these conditions: Yes, UTI is related to / associated with / due to suprapubic tube No, UTI is not related to / associated with / due to suprapubic tube Other (explain) Clinically unable to determine (explain) Thank you, Anitha Foster RN Use of terms such as suspected, likely, concern for, or probable (associated with a specific diagnosi s that is being evaluated, monitored, or treated as if it exists) are acceptable and can be coded in the inpatient se tting, when documented at the time of discharge. Please use your independent medical judgment in providing your response. THIS QUERY IS PART OF THE PERMANENT MEDICAL RECORD
== END 2024-11-01 14:07 | disposition home or self-care (01) | DRG 690 ==
PROVIDERS: Admitting Provider Urology; PCP Family Medicine; Visit Provider Urology
DX: N39.0 Urinary tract infection, site not specified (principal); C91.10 Chronic lymphocytic leukemia of B-cell type not having achieved remission; D84.821 Immunodeficiency due to drugs; N31.9 Neuromuscular dysfunction of bladder, unspecified; R31.9 Hematuria, unspecified; Z93.59 Other cystostomy status; Z87.440 Personal history of urinary (tract) infections; Z79.69 Long term (current) use of other immunomodulators and immunosuppressants; Z79.82 Long term (current) use of aspirin; Z79.84 Long term (current) use of oral hypoglycemic drugs; Z79.899 Other long term (current) drug therapy
CPT/HCPCS: 36415; 80048; 80053; 81001; 82947; 84550; 85025; 85652; 86140; J0692

== ENCOUNTER → 2024-10-28 12:56 | Outpatient (BNV) | payer MEDICARE, OTHER, SELFPAY | PROVIDERS: Admitting Provider Urology; PCP Family Medicine; Visit Provider Internal Medicine | DX: N39.0 Urinary tract infection, site not specified (principal) | CPT/HCPCS: 99222 ==

== ENCOUNTER → 2024-10-28 12:56 | Outpatient (BNV) | payer MEDICARE, OTHER, SELFPAY | PROVIDERS: Admitting Provider Urology; PCP Family Medicine; Visit Provider Urology | DX: N39.0 Urinary tract infection, site not specified (principal) | CPT/HCPCS: 99222; 99232; 99239 ==

== ENCOUNTER 2024-11-04 11:15 | Outpatient (REF) | payer MEDICARE, OTHER, SELFPAY ==
[2024-11-04 12:10] LABS: MANUAL DIFF FLAG NO
[2024-11-04 12:16] LABS: Basophils Absolute Auto 0.1 X10*3/uL (0.0-0.2); Basophils Percent Auto 0.6 % (0-2); Eosinophils Absolute Auto 0.2 X10*3/uL (0.0-0.4); Eosinophils Percent Auto 1.7 % (0-4); Hemoglobin 10.5 g/dl (12.0-16.0); Imm Gran Abs Auto 0.29 X10*3/uL (0.00-0.03); Imm Gran Pct Auto 2.7 % (0.0-0.4); Lymphocytes Absolute Auto 2.4 X10*3/uL (1.2-4.9); Lymphocytes Percent Auto 22.5 % (20-40); Mean Corpuscular HGB Conc 32.8 g/dl (31.0-35.0); Mean Corpuscular Hemoglobin 30.8 pg (27.0-33.0); Mean Corpuscular Volume 93.8 fL (80.0-98.0); Mean Platelet Volume 12.4 fL (9.4-12.3); Monocytes Absolute Auto 0.9 X10*3/uL (0.1-1.2); Monocytes Percent Auto 8.7 % (2-11); Neutrophils Absolute Auto 6.8 x10*3/uL (2.0-8.3); Neutrophils Percent Auto 63.8 % (45-73); Platelet Count 139 X10*3/uL (160-400); Red Blood Count 3.41 X10*6/uL (4.20-5.50); Red Cell Distribution Width 13.7 % (11.0-16.0); White Blood Count 10.7 X10*3/uL (4.8-10.8)
[2024-11-04 12:54] LABS: Anion Gap 13 (12-20); Blood Urea Nitrogen 30 mg/dL (9-16); Calcium 9.4 mg/dL (8.4-10.2); Carbon Dioxide 25 mmol/L (22-29); Chloride 107 mmol/L (96-108); Estimated Glomerular Filt Rate 35; Glucose Random 126 mg/dL (60-115); Potassium 4.9 mmol/L (3.3-5.1); Sodium 140 mmol/L (135-145)
--- OUTSIDE RECORDS SUMMARY | 2024-11-04 15:05 | XMS_ITS | Clinical Summary ---
Author Organization [facility] Facility Address [address] [address] Care Team Providers Care Hay Rake Operator Name Role Phone Ricardo Breen MD Primary Care Provider [phone] Medications spironolactone (ALDACTONE) 25 MG tablet TAKE [...] age to complete this topic Care Teams Hay Rake Operator Relationship Specialty Start Date End Date Ricardo Breen MD [address] [place] [address] [address] [place], [place] PCP - General 09/19/20
--- OUTSIDE RECORDS SUMMARY | 2024-11-04 15:05 | XMS_ITS ---
Author Organization [facility] Address [address] [place] [address] Care Team Providers Care Syrup Mixer Assistant Name Role Phone Ricardo Breen MD Primary Care Provider Unavailab Jeanette Bryson Unavailable [phone] Sylvia Nguyễn Unavailable [phone] Allergies Allergen (clinical drug ingredient) Drug/Non Drug [...] Active Encounters Encounter Location Date Provider Diagnosis [facility] [address] [address] 10/15/2024 Sylvia Nguyễn Plan Of Treatment Next Appt Details Provider Name:Jeanette arnold, 01/22/2025 11:15:00 AM, [address] [place] [address], [phone], Progress Notes * Kaitlin BROWN MDOB:[birth year] (79 yo F)Acc No.[id number]:10/15/2024 Progress Note Patient:?STEPHANIE Kaitlin Noel Provider:?Sylvia Nguyễn DPM :1945???Age:79 Y???Sex:Female D ate:10/15/2024 Address:[address] [place], [place] [address] Pcp:Ricardo Breen MD Subjective: * Chief Complaints: [...] DPM Date:?0 10/15/2024 Generated for Jeny ball/Chance/Pallavi on:?11/04/2024 03:05 PM EST
--- OUTSIDE RECORDS SUMMARY | 2024-11-04 15:05 | XMS_ITS ---
Continuity of Care Document (CCD) Created on: November 04, 2024 Kaitlin Ortiz External Reference #: [id number] : [id number] Sex: Female Author Organization [facility] [address] [place] [address] Phone [phone] Social History Type Date Description Comments Sex [...]
--- OUTSIDE RECORDS SUMMARY | 2024-11-04 15:06 | XMS_ITS ---
Author Organization [facility] Address [address] [place] [address] Care Team Providers Care Rn Rehab Name Role Phone Ricardo Breen MD Primary Care Provider Unavailab Jeanette Bryson Unavailable [phone] REASON FOR VISIT Lab Results Encounters Encounter Location Date Provider Diagnosis [address] [address] 10/28/2024 Jeanette Messer Plan Of Treatment Next Appt Details Provider Name:Jeanette arnold, 01/22/2025 11:15:00 AM, [address] [place] [address], [phone], Progress Notes * Kaitlin BROWN MDOB:[birth year] (79 yo F)Acc No.[id number]:10/28/2024 Patient:?Kaitlin BROWN Noel :1945???Age:79 Y???Sex:Female Address:[address] [place] [address] * true * Date:? Generated for Printi lizzy/Chance/eTransmitting on:?11/04/2024 03:05 PM EST
--- OUTSIDE RECORDS SUMMARY | 2024-11-04 15:06 | XMS_ITS ---
Author Organization [facility] Address [address] [facility] [place] [address] Care Team Providers Care Blueprinting And Photocopy Supervisor Name Role Phone Ricardo Breen MD Primary Care Provider UnavailJeanette Raman Unavailable [phone] Allergies Allergen (clinical drug ingredient) Drug/Non Drug [...] W/U Status Risk Notes Problem Idiopathic gout (15595837) Acute idiopathic gout of right foot (M10.071) Active confirmed Problem Acquired hammer toe of right foot (14960073899134 05) Other hammer toe(s) (acquired), right foot (M20.41) Active confirmed Problem Acquired hammer toe of left foot (86430900403549 03) Other hammer toe(s) (acquired), left foot (M20.42) Active confirmed Vital Signs Height 5 ft 4 in in 10/23/2024 Weight 195 lbs 10/23/2024 BMI 33.47 kg/m2 10/23/2024 Blood pressure systolic 142 mm Hg 10/23/19 25 Blood pressure diastolic 60 mm Hg 025 Encounters Encounter Location Date Provider Diagnosis [facility] [address] 10/23/2024 Jeanette Gui Type 2 diabetes mellitus [...] Reason: Provider Name:Jeanette arnold, 01/22/2025 11:15:00 AM, [address] [place] [address], [phone], Procedure Notes * Category Sub-Category Detail Notes [...] use of a nail nipper and/or dremel-type ink grinder, to a more viable healthy nail [...] to maintain effectiveness in symptomatic relief - 96105 Keratoma Treatment Parring or Cutting o f [...] instrumentation by the physician of record - 79181 Progress Notes * Kaitlin BROWN MDOB:[birth year] (79 yo F)Acc No.[id number]:10/23/2024 Progress Note Patient:?SADERITUPaulettene Noel Provider:?Jeanette Messer DPM :1945???Age:79 Y???Sex:Female D ate:10/23/2024 Address:[address] [place] [address] [place], [facility] Pcp:Ricardo Breen MD Subjective: * Chief Complaints: [...] 6.8 * Examination: ???Ophthalmology Referral: ?DIABETES EYE EXAM?Procedure Performed:?Yes ?Date of Exam Performed?06/09/2024 ?Findings of Diabetic Eye Exam:?no retinopathy?General Examination: ?GENERAL APPEARANCE:?Reveals a pleasant, alert, well nourished, well- developed, well hydrated individual, who demonstrates proper attention to hygiene/body habitus, and is in no acute distress, Pt serves as own historian for office visit today.?ORIENTED:?person, place, and time.?FOOT EXAM:?Lower Extremity Neurological Exam performed:?Yes Date ?Visual exam of foot performed:?Yes ?Date?10/23/2024 ?Footwear Evaluation?Footwear Evaluation performed:?Yes?Neurological: ?SENSORY:?Neurological exam demonstrates reduced sharp/dull pin prick [...] signs of cellulitis right foot.?Vascular: ?DP PULSES (B):?1/4, B/L.?PT PULSES (B):? 1/4, B/L.?CAPILLARY FILL TIME:?3 secs. per digit, B/L.?TROPHIC [...] LAT, MO, Taken by a trained Podiatric Head Up Operator ( SF).?Findings:?increase in soft tissue contour and [...] use of a nail nipper and/or dremel-type ink grinder, to a more viable healthy nail [...] to maintain effectiveness in symptomatic relief - 54961.?Keratoma Treatment:?Parring or Cutting of Benign Hyperkeratotic Lesion(s)?(-57) [...] instrumentation by the physician of record - 16233.? * Procedure Codes:?13409 DEBRI DE NAIL, 6 OR MORE, Modifiers: XS 38818 X-RAY EXAM OF RIGHT FOOT 3V, Modifiers: 26 , [id number] TRIM SKIN LESIONS, OVER 4, Modifiers: XS [...] Sign off status: Completed true * Provider:?Jeanette Messer, DPM Date:? Generated for Printi ng/Chance/eTmonosmcharles on:?11/04/2024 03:05 PM EST History and Physical Notes * HPI (History of Present Illness) Category Sub-Category Detail Notes Category Not es Toe pain Location: B/L feet Duration: several years Course: worse Aggravated by: shoes, any pressure Treatments: change in shoes At Risk footcare Pt States Last PCP Visit: Date: Foot Pain Nature: aching, swelling, tenderness , [...] LAT, MO, Taken by a trained Podiatric Head Up Operator ( SF) Clinical Indication(s): Evaluate for Fra cture, Evaluate for Osteomyelitis, Evaluate for possible Gout
== END 2024-11-04 11:16 | disposition home or self-care (01) ==
LOC: HO.HVNA 11:15
PROVIDERS: Visit Provider Internal Medicine
DX: N39.0 Urinary tract infection, site not specified (principal); Z79.2 Long term (current) use of antibiotics
CPT/HCPCS: 36415; 80048; 85025

== ENCOUNTER 2024-11-05 09:06 | Outpatient (REF) | payer MEDICARE, OTHER, SELFPAY ==
--- NOTE | ~2024-11-05 | MM_ITS ---
EXAMINATION: DXA BONE DENSITY AXIAL HISTORY: Estrogen deficiency TECHNIQUE: [employer] Dual energy absorptiometry (DEXA) of the lumbar spine, total right hip, and femoral neck was performed. COMPARISON: Comparison is made with the prior examination dated 08/21/2022. FINDINGS: The bone mineral density of the lumbar spine is 1.373 with a T-score of 1.7, and a Z-score of 2.7. This represents a BMD change of -6.1% compared to the prior exam. This is statistically significant. The bone mineral density of the right total hip is 0.767 with a T-score of -1.9, and a Z-score of -0.6. This represents BMD change of -28.0% compared to the prior exam. This is statistically significant. The bone mineral density of the right femoral neck is 0.762 with a T-score of -2.0, and a Z-score of -0.4. This represents BMD change of -24.1% compared to the prior exam. FRACTURE RISK: The FRAX index suggests a ten year probability of major osteoporotic fracture of 13.9%, and of hip fracture 3.8%. MM/XR DEXA axial skeleton IMPRESSION: Based on bone mineral density, and according to World Health Organization (WHO) criteria, the diagnosis is consistent with osteopenia. All bone density values are in grams per centimeter squared (g/cm2). Statistically, 68% of repeat scans fall within 1 SD (+/- 0.010 g/cm2 for AP spine L1-L4) and 1 SD (+/- 0.012 g/cm2 for femur total) FRAX is a trademark of the [employer]'s [place] for Metabolic Bone Disease, a World Health Organization (WHO) Collaborating Center. Electronically signed by: Rivera Rahman MD 11/05/2024 09:55 AM [facility]
--- OUTSIDE RECORDS SUMMARY | 2024-11-05 09:52 | XMS_ITS ---
Author Organization [facility] Address [address] [facility] [place] [address] Care Team Providers Care It Technician Name Role Phone Ricardo Breen MD Primary Care Provider UnavailJeanette Raman Unavailable [phone] Allergies Allergen (clinical drug ingredient) Drug/Non Drug [...] W/U Status Risk Notes Problem Idiopathic gout (88808462) Acute idiopathic gout of right foot (M10.071) Active confirmed Problem Acquired hammer toe of right foot (06906732550212 05) Other hammer toe(s) (acquired), right foot (M20.41) Active confirmed Problem Acquired hammer toe of left foot (10490158540935 03) Other hammer toe(s) (acquired), left foot (M20.42) Active confirmed Vital Signs Height 5 ft 4 in in 10/23/2024 Weight 195 lbs 10/23/2024 BMI 33.47 kg/m2 10/23/2024 Blood pressure systolic 142 mm Hg 10/23/19 25 Blood pressure diastolic 60 mm Hg 025 Encounters Encounter Location Date Provider Diagnosis [facility] [address] 10/23/2024 Jeanette Gui Type 2 diabetes mellitus [...] Reason: Provider Name:Jeanette arnold, 01/22/2025 11:15:00 AM, [address] [place] [address], [phone], Procedure Notes * Category Sub-Category Detail Notes [...] use of a nail nipper and/or dremel-type hull grinder, to a more viable healthy nail [...] to maintain effectiveness in symptomatic relief - 86576 Keratoma Treatment Parring or Cutting o f [...] instrumentation by the physician of record - 48406 Progress Notes * Kaitlin BROWN MDOB:[birth year] (79 yo F)Acc No.[id number]:10/23/2024 Progress Note Patient:?SADERITUPaulettene Noel Provider:?Jeanette Messer DPM :1945???Age:79 Y???Sex:Female D ate:10/23/2024 Address:[address] [place] [address] [place]ie, [facility] Pcp:Ricardo Breen MD Subjective: * Chief Complaints: [...] LAT, MO, Taken by a trained Podiatric Customer Account Specialist ( SF).?Findings:?increase in soft tissue contour [...] use of a nail nipper and/or dremel-type hull grinder, to a more viable healthy nail [...] to maintain effectiveness in symptomatic relief - 97384.?Keratoma Treatment:?Parring or Cutting of Benign Hyperkeratotic Lesion(s)?(-57) [...] instrumentation by the physician of record - 90366.? * Procedure Codes:?68782 DEBRI DE NAIL, 6 OR MORE, Modifiers: XS 85884 X-RAY EXAM OF RIGHT FOOT 3V, Modifiers: 26 , [id number] TRIM SKIN LESIONS, OVER 4, Modifiers: XS [...] Provider:?Jeanette Messer, DPM Date:? Generated for Printi ng/Chance/eTransmitting on:?11/05/2024 09:52 AM EST History and Physical Notes * [...] LAT, MO, Taken by a trained Podiatric Customer Account Specialist ( SF) Clinical Indication(s): Evaluate for Fra cture, Evaluate for Osteomyelitis, Evaluate for possible Gout
--- OUTSIDE RECORDS SUMMARY | 2024-11-05 09:52 | XMS_ITS | Clinical Summary ---
Author Organization [facility] Address [address] [address] Care Team Providers Care Assembly Stock Supervisor Name Role Phone Ricardo Breen MD Primary Care Provider [phone] Medications spironolactone (ALDACTONE) 25 MG tablet TAKE [...] age to complete this topic Care Teams Assembly Stock Supervisor Relationship Specialty Start Date End Date Ricardo Breen MD [address] [place] [address] [address] [place], [place] PCP - General 09/19/20
--- OUTSIDE RECORDS SUMMARY | 2024-11-05 09:52 | XMS_ITS ---
Author Organization [facility] Address [address] [place] [address] Care Team Providers Care Environmental Technical Officer Name Role Phone Ricardo Breen MD Primary Care Provider Unavailab Jeanette Bryson Unavailable [phone] REASON FOR VISIT Lab Results Encounters Encounter Location Date Provider Diagnosis [address] [address] 10/28/2024 Jeanette Messer Plan Of Treatment Next Appt Details Provider Name:Jeanette arnold, 01/22/2025 11:15:00 AM, [address] [place] [address], [phone], Progress Notes * Kaitlin BROWN MDOB:[birth year] (79 yo F)Acc No.[id number]:10/28/2024 Patient:?Kaitlin BROWN Noel :1945???Age:79 Y???Sex:Female Address:[address] [place] [address] * true * Date:? Generated for Printi lizzy/Chance/eTransmitting on:?11/05/2024 09:52 AM EST
--- OUTSIDE RECORDS SUMMARY | 2024-11-05 09:52 | XMS_ITS ---
Author Organization [facility] Address [address] [place] [address] Care Team Providers Care Management Professor Name Role Phone Ricardo Breen MD Primary Care Provider Unavailab Jeanette Bryson Unavailable [phone] Sylvia Nguyễn Unavailable [phone] Allergies Allergen (clinical drug ingredient) Drug/Non Drug [...] Active Encounters Encounter Location Date Provider Diagnosis [facility] [address] [address] 10/15/2024 Sylvia Nguyễn Plan Of Treatment Next Appt Details Provider Name:Jeanette arnold, 01/22/2025 11:15:00 AM, [address] [place] [address], [phone], Progress Notes * Kaitlin BROWN MDOB:[birth year] (79 yo F)Acc No.[id number]:10/15/2024 Progress Note Patient:?STEPHANIE Kaitlin Noel Provider:?Sylvia Nguyễn DPM :1945???Age:79 Y???Sex:Female D ate:10/15/2024 Address:[address] [place], [place] [address] Pcp:Ricardo Breen MD Subjective: * Chief Complaints: [...] DPM Date:?0 10/15/2024 Generated for Jeny ball/Chance/Pallavi on:?11/05/2024 09:51 AM EST
--- OUTSIDE RECORDS SUMMARY | 2024-11-05 09:52 | XMS_ITS | Patient Health Record ---
[facility] Address [address] [place] [address] Care Team Providers Care Clay Stain Mixer Name Role Phone Jamshid RAUSCH, Ricardo Primary Care Provider Unavailab Jeanette Bryson Unavailable [phone] Prosper Henson Unavailable [phone] Sylvia Nguyễn Unavailable [phone] Allergies Allergen (clinical drug ingredient) Drug/Non Drug [...] Problem Acquired hammer toe of right foot (1640793853837965 ) Other hammer toe(s) (acquired), right foot (M20.41) Active confirmed Problem Acquired hallux valgus (96476494) Hallux valgus (acquired), left foot (M20.12) Active confirmed Problem Acquired hammer toe of left foot (3974277848329089 ) Other hammer toe(s) (acquired), left foot (M20.42) Active confirmed Problem Polyneuropathy due to diabetes mellitus type I (041455958) Type 1 diabetes mellitus with diabetic polyneuropathy (E10.42) Active confirmed Problem Polyneuropathy due to type 2 diabetes mellitus (196621031) Type 2 diabetes mellitus with diabetic polyneuropathy (E11.42) Active confirmed Problem Localized, primary osteoarthritis of the ankle and/or foot (041726054) Primary osteoarthritis, left ankle and foot (M19.072) Active confirmed Problem Acquired hallux rigidus (7692153) Hallux rigidus, left foot (M20.22) Active confirmed Problem Non-pressure chronic ulcer of other part of left foot limited to breakdown of skin (L97.521) Active confirmed Problem Non-pressure chronic ulcer of other part of right foot limited to breakdown of skin (L97.511) Active confirmed Problem Polyneuropathy due to type 2 diabetes mellitus (375468896) Type 2 diabetes mellitus with diabetic polyneuropathy (E11.42) Active confirmed Problem Polyneuropathy due to diabetes mellitus type I (779840401) Type 1 diabetes mellitus with diabetic polyneuropathy (E10.42) Active confirmed Problem Idiopathic gout (46876750) Acute idiopathic gout of right foot (M10.071) Active confirmed Vital Signs Blood pressure diastolic 60 mm Hg 10/23/2024 Height 5 ft 4 in in 10/23/2024 Blood pressure systolic 142 mm Hg 10/23/2024 Weight 195 lbs 10/23/2024 BMI 33.47 kg/m2 10/23/2024 Procedures Procedure Date Ordered Date Performed Result Body Sit e 39855-MOAPILI NAIL, 6 OR MORE 07/16/2024 N/A 95109-AUQK SKIN LESIONS, 2 TO 4 07/16/2024 N/A Encounters Encounter Location Date Provider Diagnosis [address] [address] 11/06/2023 Prosper Henson Type 2 diabetes mellitus with diabetic polyneuropathy E11.42 ; Tinea unguium B35.1 ; Pain in left foot M79.672 ; Primary osteoarthritis, left ankle and foot M19.072 ; Pain in left toe(s) M79.675 ; Pain in right toe(s) M79.674 ; Hallux rigidus, left foot M20.22 ; Hallux valgus (acquired), left foot M20.12 and Localized edema R60.[address] [address] 04/16/2024 Prosper Henson Type 2 diabetes mellitus with diabetic polyneuropathy E11.42 ; Tinea unguium B35.1 ; Pain in left foot M79.672 ; Primary osteoarthritis, left ankle and foot M19.072 ; Pain in left toe(s) M79.675 ; Pain in right toe(s) M79.674 ; Hallux rigidus, left foot M20.22 ; Hallux valgus (acquired), left foot M20.12 and Localized edema R60.[address] [address] 07/16/2024 Slyvia Gopi Type 2 diabetes mellitus with diabetic polyneuropathy E11.42 and Tinea unguium B35.[address] [address] 10/23/2024 Jeanette Messer Type 2 diabetes mellitus with diabetic polyneuropathy E11.42 ; 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 ; Tinea unguium B35.1 ; Pain in right ankle and joints of right foot M25.571 ; Other hammer toe(s) (acquired), right foot M20.41 ; Other hammer toe(s) (acquired), left foot M20.42 and Local edema R60.[address] [address] 01/31/2024 Prosper Henson [address] [address] 10/14/2024 Sylvia Nguyễn [facility] [place] [address] [place] [address] 10/28/2024 Jeanette Messer Assessments Encounter Date Diagnosis (ICD Code) Assessment [...] X ray : Foot, right 3V 10/23/2024 95259-QPYPORI NAIL, 6 OR MORE 07/16/2024 31751-CTXLXEK NAIL, 1-5 05/05/2018 69771-IDTADME NAIL, 1-5 07/21/2018 07720-DAMADPN NAIL, 1-5 10/13/2018 61816, J0702- INJECT or DRAIN, JOINT/BUR SA 05/05/2018 77550-UJOX SKIN LESIONS, OVER 4 05/05/20 18 51241-FLNS SKIN LESIONS, OVER 4 07/21/20 18 32079-SFTY SKIN LESIONS, OVER 4 01/13/20 19 12737-RTTB SKIN LESIONS, OVER 4 04/13/20 19 41996-LBBC SKIN LESIONS, OVER 4 10/13/19 19 14992-DNSA SKIN LESIONS, OVER 4 12/06/19 21 61363-WORZ SKIN LESIONS, OVER 4 05/08/20 21 06072-SBNY SKIN LESIONS, OVER 4 10/18/19 22 98913-UQTJ SKIN LESIONS, OVER 4 08/01/20 20 83320-NLVA SKIN LESIONS, OVER 4 03/30/20 20 76003-SRTW SKIN LESIONS, OVER 4 07/13/20 19 71884-LFPX SKIN LESIONS, OVER 4 10/12/19 20 35323-ASJP SKIN LESIONS, 2 TO 4 07/16/20 24 04960-VIJJ SKIN LESIONS, 2 TO 4 02/20/20 18 60499, K0244-HEDUT/INJECT, JOINT/BURSA 0 10/13/2018 T5619-KFMXVITY DYSTROPHIC NAILS ANY # J9876-YALYQSUO DYSTROPHIC NAILS ANY # P5350-VXLTFIQV DYSTROPHIC NAILS ANY # X1876-VCDXVFWD DYSTROPHIC NAILS ANY # L0152-JIWIGFWJ DYSTROPHIC NAILS ANY # E7853-JZXKQRCB DYSTROPHIC NAILS ANY # M2088-RMQNVXRQ DYSTROPHIC NAILS ANY # W5727-ZWKBAUJX DYSTROPHIC NAILS ANY # F8924-CIIPHOGZ DYSTROPHIC NAILS ANY # 71807- Nail Unit Biopsy 02/19/2018 Next Appt Details Provider Name:Jeanette arnold, 01/22/2025 11:15:00 AM, [address] [place], [address], Insurance Providers Payer Name Payer Address Payer Phone Subscriber Number Group Number Insured Name Patient Relationship to Insured Coverage Start Date Coverage End Date Medicare [employer] [address] [place] [address] [id number] Kaitlin Ortiz Self - patient is the insured [address] [place] [address] [address] [place] [id number] Diana Kaitlin Self - patient is the insured Medical [...]
== END 2024-11-05 09:07 | disposition home or self-care (01) ==
LOC: HO.MAMMO 09:06
PROVIDERS: PCP Family Medicine; Visit Provider Internal Medicine Medical Oncology
DX: Z13.820 Encounter for screening for osteoporosis (principal); M85.80 Other specified disorders of bone density and structure, unspecified site; E28.39 Other primary ovarian failure
CPT/HCPCS: 77080

== ENCOUNTER → 2024-11-05 09:15 | Outpatient (BNV) | payer MEDICARE, OTHER, SELFPAY | PROVIDERS: PCP Family Medicine; Visit Provider Radiology Diagnostic Radiology | DX: E28.39 Other primary ovarian failure (principal) | CPT/HCPCS: 77080 ==

== ENCOUNTER 2024-11-10 12:59 | Outpatient (AMB) | payer MEDICARE, OTHER, SELFPAY ==
--- NOTE | 2024-11-10 13:02 | A.OFFVIS_ITS ---
Intake Visit Reasons: ortho pre op clearance/Complicated uti(set) Intake Note: Patient is present for complicated uti Urology Medication:FLUACONZOLE,SULFAMETHOXAZOLE OXYBUTNIN Antibiotic Allergy:AMOXICILLIN,CIPROFLOXACIN,PENICILLIN,LEVOFLOXACIN,DOXAZSIN,CEPHALEXIN Blood Thinner:ASPIRIN Bulk Cooler Installer Required: No Allergies amoxicillin [AMOXICILLIN] Allergy (Severe, Verified 01/05/25 14:29) stroke, blood clots ciprofloxacin [From CIPRO] Allergy (Severe, Verified 01/05/25 14:29) ANAPHYLAXIS Iodinated Contrast Media [IV DYE, IODINE CONTAINING CONTRAST ] Allergy (Severe, Verified 01/05/25 14:29) HIVES levofloxacin Allergy (Severe, Verified 01/05/25 14:29) Anaphylaxis liraglutide Allergy (Severe, Verified 01/05/25 14:29) Headache Penicillins Allergy (Severe, Verified 01/05/25 14:29) stroke, blood clots FREYA Inhibitors Allergy (Intermediate, Verified 01/05/25 14:29) Cough ARB-Angiotensin Receptor Antagonist Allergy (Intermediate, Verified 01/05/25 14:29) Cough cefpodoxime Allergy (Intermediate, Verified 01/05/25 14:29) Dizziness, nausea doxazosin Allergy (Intermediate, Verified 01/05/25 14:29) Shortness of Breath fluticasone [Advair Diskus] Allergy (Intermediate, Verified 01/05/25 14:29) Anxiety gabapentin [From Neurontin] Allergy (Intermediate, Verified 01/05/25 14:29) Headache hydralazine Allergy (Intermediate, Verified 01/05/25 14:29) Shortness of Breath latex Allergy (Intermediate, Verified 01/05/25 14:29) Hives linezolid Allergy (Intermediate, Verified 01/05/25 14:29) Nausea and Vomiting meloxicam Allergy (Intermediate, Verified 01/05/25 14:29) Unknown salmeterol [Advair Diskus] Allergy (Intermediate, Verified 01/05/25 14:29) Anxiety Tetanus Vaccines and Toxoid Allergy (Intermediate, Verified 01/05/25 14:29) Swelling torsemide Allergy (Intermediate, Verified 01/05/25 14:29) Shortness of Breath cephalexin [Keflex] Allergy (Mild, Verified 01/05/25 14:29) Nausea HPI Comments Details: Kaitlin is a very pleasant female. She is a patient of Dr. Tijerina. She is here for the following urologic conditions - neurogenic bladder - recurrent UTI - nephrolithiasis - stress incontinence Continuous drainage Suprapubic tube is rotated every 3 weeks Receiving IV antibiotics for recurrent infection Discussed recent microbiology finding Appears to be sensitive gentamicin Infusion place Urinary retention with incomplete bladder emptying Incomplete emptying Suprapubic tube placed October 2021 Background of diabetes Has CLL and is on chronic immunosuppression which increases risk of infection substantially Nephrolithiasis 11/28 - ultrasound bilateral stones 8 mm left, 5 mm right Urinary Tract Infection: Last UTI - ceftriaxone 1gm daily 5 days They present for recurrent UTI's. Associated constipation - allergies to cipro - did have penicillin desensitization. The frequency of recurrences has been persistent recurrence. Therapy has included - Gentamicin instillation - macrobid - not well tolerated 06/27 Augmentin and 3rd generation all capsules poor in 07/28 Macrobid and 3rd generation careful support. Prior cultures have shown 05/25 - klebsiella sp.- Gentamicin resistant 06/25 - MicroDNA - enteroccus/E.coli 10^4 Bactrim/macrobid/levaquin 12/25 Microgen - 3 species - levaquin/ cefpodoxime 12/26 E.Coli levaquin/macrobid 05/28 E.Coli levaquin/gentamycin 06/27 E.Coli and Enterococcus 09/28 Strep Agalact - tx with 5 days kelfex. Recent testing included 09/28 Bladder biopsy with chronic inflammation - rectocele with incomplete emptying. Relevant medical history diabetes Yes constipation Yes incomplete bladder emptying Yes renal stones No genitourinary surgery Yes association of infections with intercourse No history of vesicoureteral reflux No Therapeutic plan will include suprapubic tube placement [facility] Medical History PAF (paroxysmal atrial fibrillation) Suprapubic catheter Neuropathy Osteoarthritis Morbid obesity Allergy to multiple antibiotics Depression Arthritis of left hip Wears dentures Neurogenic urinary bladder disorder History of blood transfusion History of CVA (cerebrovascular accident) Seasonal allergies PONV (postoperative nausea and vomiting) Diabetes with neurologic complications Type 2 diabetes mellitus with unspecified complications Anemia CLL (chronic lymphocytic leukemia) Sleep apnea Arthritis Fibromyalgia Hypercholesterolemia Hypertension History of bilateral breast cancer Urinary retention with incomplete bladder emptying Surgical History History of cervical discectomy History of open heart surgery (~01/31/24) History of total left hip replacement S/P Botox injection History of suprapubic catheter S/P left breast biopsy History of esophagogastroduodenoscopy (EGD) Hx of colonoscopy History of bladder repair surgery History of total hysterectomy S/P breast biopsy, right History of back surgery History of biopsy of bladder Family History Mother Breast cancer Father Heart disease Father Lung cancer Mother Colon cancer Brother Pancreatic cancer Social History Household Members: Spouse Housing: House Housing Other:: has chair lift for second floor access Are you a primary pharmacy customer care specialist to a significant other at home: No Do you presently have visiting nurse or other home services: Yes (visiting nurse-recent in patient for UTI) Alcohol intake: never Comment: patient refused telesiter,removed per pt request Patient Tobacco Use Status: Never used Tobacco Advance Directives Date on File: 07/30/23 service: No Current occupational status: retired Female Reproductive History Menstrual Age of Menarche: 15 Review of Systems Const Denies chills and Denies fever(s) Card Reports no additional complaints and Denies syncope Resp Denies cough GI Denies abdominal pain and Denies heartburn Reports as per HPI and Denies change in libido Neuro Denies syncope Psych Denies change in libido Endo Denies change in libido Physical Exam Const General: cooperative, healthy appearing, comfortable and no acute distress Orientation/consciousness: patient oriented x3 HEENT Face and sinus: Yes normal facial exam Mouth: moist mucous membranes Neck Neck: Yes normal visual inspection, Yes full ROM and Yes trachea midline Chest Chest palpation & inspection: normal inspection of the chest Resp Effort & Inspection: normal respiratory effort, able to speak in complete sentences and no respiratory distress GI Inspection: Yes normal to inspection Back/Spine/Pelvis Cervical Spine: normal cervical lordosis Thoracic/Lumbar Spine: thoracic and lumbar spine normal to inspection Skin General skin exam: no rashes or lesions noted Neuro General: patient oriented x3, gait normal, tone normal and moves all extremities Extrem General: Yes normal to inspection and Yes capillary refill normal Assessment & Plan Assessment & Plan (1) Complicated urinary tract infection: Code(s): N39.0 - Urinary tract infection, site not specified Category: Medical (2) Neurogenic urinary bladder disorder: Code(s): N31.9 - Neuromuscular dysfunction of bladder, unspecified Category: Medical Plan Continue review every six-month Patient Instructions: This note is constructed using voice recognition software. While every effort has been made to ensure accuracy zipper machine operator errors may have been included. Imaging studies, laboratory and physical exam results were discussed and reviewed in detail. No major barriers to patient understanding were identified. An opportunity to ask questions regarding the treatment plan was provided. All questions were answered. The patient expressed understanding and agreement with the above treatment plan. The patient is aware they should contact our office by phone for worsening of their current condition or the appearance of new urologic symptoms. Compliance is encouraged with any medications and followup testing that is ordered. It is a privilege to participate in the urologic care of your patient. If you have any questions or concerns regarding treatment for the above conditions, or other urologic issues, please do not hesitate to contact me. The office telephone contact is [phone]. Sincerely, Dr Ceferino Hayes MD, [facility] - Urology Compassionate Specialist Care for the Genitourinary System Coding Level of Care Code Est Pt Level 3 (89131) Complex EM visit Add On G2211 Diagnoses Complicated urinary tract infection N39.0 Neurogenic urinary bladder disorder N31.9
--- OUTSIDE RECORDS SUMMARY | 2024-11-10 16:08 | XMS_ITS ---
Author Organization [facility] Address [address] [place] [address] Care Team Providers Care Maintenance And Utilities Supervisor Name Role Phone Ricardo Breen MD Primary Care Provider Unavailab Jeanette Bryson Unavailable [phone] Sylvia Nguyễn Unavailable [phone] Allergies Allergen (clinical drug ingredient) Drug/Non Drug [...] Active Encounters Encounter Location Date Provider Diagnosis [facility] [address] [address] 10/15/2024 Sylvia Nguyễn Plan Of Treatment Next Appt Details Provider Name:Jeanette arnold, 01/22/2025 11:15:00 AM, [address] [place] [address], [address], Progress Notes * Kaitlin BROWN MDOB:[birth year] (79 yo F)Acc No.[id number]:10/15/2024 Progress Note Patient:?STEPHANIE Kaitlin Noel Provider:?Sylvia Nguyễn DPM :1945???Age:79 Y???Sex:Female D ate:10/15/2024 Address:[address] [place], [place] [id number] Pcp:Ricardo Breen MD Subjective: * Chief Complaints: [...] DPM Date:?0 10/15/2024 Generated for Jeny ball/Chance/Pallavi on:?11/10/2024 04:08 PM EST
--- OUTSIDE RECORDS SUMMARY | 2024-11-10 16:08 | XMS_ITS | Clinical Summary ---
Author Organization [facility] Facility Address [address] [address] Care Team Providers Care Hot Tar Roofer Helper Name Role Phone Ricardo Breen MD Primary Care Provider [phone] Medications spironolactone (ALDACTONE) 25 MG tablet TAKE [...] age to complete this topic Care Teams Hot Tar Roofer Helper Relationship Specialty Start Date End Date Ricardo Breen MD [address] [place] [address] [address] [place], [place] PCP - General 09/19/20
--- OUTSIDE RECORDS SUMMARY | 2024-11-10 16:08 | XMS_ITS ---
Author Organization [facility] Address [address] [facility] [place] [address] Care Team Providers Care Audiovisual Production Specialist Name Role Phone Ricardo Breen MD Primary Care Provider UnavailJeanette Raman Unavailable [phone] Allergies Allergen (clinical drug ingredient) Drug/Non Drug [...] W/U Status Risk Notes Problem Idiopathic gout (80060476) Acute idiopathic gout of right foot (M10.071) Active confirmed Problem Acquired hammer toe of right foot (23789060676721 05) Other hammer toe(s) (acquired), right foot (M20.41) Active confirmed Problem Acquired hammer toe of left foot (67476979381241 03) Other hammer toe(s) (acquired), left foot (M20.42) Active confirmed Vital Signs Height 5 ft 4 in in 10/23/2024 Weight 195 lbs 10/23/2024 BMI 33.47 kg/m2 10/23/2024 Blood pressure systolic 142 mm Hg 10/23/19 25 Blood pressure diastolic 60 mm Hg 025 Encounters Encounter Location Date Provider Diagnosis [facility] [address] 10/23/2024 Jeanette Gui Type 2 diabetes mellitus [...] Reason: Provider Name:Jeanette arnold, 01/22/2025 11:15:00 AM, [address] [place] [address], [address], Procedure Notes * Category Sub-Category Detail Notes [...] use of a nail nipper and/or dremel-type internal grinder tender, to a more viable healthy nail plate [...] to maintain effectiveness in symptomatic relief - 82036 Keratoma Treatment Parring or Cutting o f [...] instrumentation by the physician of record - 27124 Progress Notes * Kaitlin BROWN MDOB:[birth year] (79 yo F)Acc No.[id number]:10/23/2024 Progress Note Patient:?SADERITUPaulettene Noel Provider:?Jeanette Messer DPM :1945???Age:79 Y???Sex:Female D ate:10/23/2024 Address:[address] [place] [address] [place], [facility] Pcp:Ricardo Breen MD Subjective: * Chief Complaints: [...] [place], [place], Taken by a trained Podiatric Stogy Roller ( [place]).?Findings:?increase in soft tissue contour and [...] use of a nail nipper and/or dremel-type internal grinder tender, to a more viable healthy nail plate [...] to maintain effectiveness in symptomatic relief - 01121.?Keratoma Treatment:?Parring or Cutting of Benign Hyperkeratotic Lesion(s)?(-57) [...] instrumentation by the physician of record - 82981.? * Procedure Codes:?69105 DEBRI DE NAIL, 6 OR MORE, Modifiers: XS 43875 X-RAY EXAM OF RIGHT FOOT 3V, Modifiers: 26 , [id number] TRIM SKIN LESIONS, OVER 4, Modifiers: XS [...] Messer, DPM Date:? Generated for Printi ng/Chance/eTransmitting on:?11/10/2024 04:08 PM EST History and Physical Notes * [...] [place], [place], Taken by a trained Podiatric Stogy Roller ( [place]) Clinical Indication(s): Evaluate for Fra cture, Evaluate for Osteomyelitis, Evaluate for possible Gout
--- OUTSIDE RECORDS SUMMARY | 2024-11-10 16:09 | XMS_ITS ---
Author Organization [facility] Address [address] [place] [address] Care Team Providers Care Brand Marketing Manager Name Role Phone Ricardo Breen MD Primary Care Provider Unavailab Jeanette Bryson Unavailable [phone] REASON FOR VISIT Lab Results Encounters Encounter Location Date Provider Diagnosis [address] [address] 10/28/2024 Jeanette Messer Plan Of Treatment Next Appt Details Provider Name:Jeanette arnold, 01/22/2025 11:15:00 AM, [address] [place], [address], Progress Notes * Kaitlin BROWN MDOB:[birth year] (79 yo F)Acc No.[id number]:10/28/2024 Patient:?Kaitlin BROWN Noel :1945???Age:79 Y???Sex:Female Address:[address] [place] [address] * true * Date:? Generated for Hoi lizzy/Chance/eTransmitting on:?11/10/2024 04:08 PM EST
== END 2024-11-10 13:36 | disposition home or self-care (01) ==
PROVIDERS: PCP Family Medicine; Visit Provider Urology
DX: N39.0 Urinary tract infection, site not specified (principal); N31.9 Neuromuscular dysfunction of bladder, unspecified
CPT/HCPCS: 99213; G2211

== ENCOUNTER → 2024-11-10 12:59 | Outpatient (BNVA) | payer MEDICARE, OTHER, SELFPAY | PROVIDERS: PCP Family Medicine; Visit Provider Urology | DX: N39.0 Urinary tract infection, site not specified (principal); N31.9 Neuromuscular dysfunction of bladder, unspecified | CPT/HCPCS: 99212 ==

== ENCOUNTER 2024-11-17 16:01 | Outpatient (REF) | payer MEDICARE, OTHER, SELFPAY ==
--- OUTSIDE RECORDS SUMMARY | 2024-11-17 19:17 | XMS_ITS ---
Author Organization [facility] Address [address] [facility] [place] [address] Care Team Providers Care Steamship Agent Name Role Phone Ricardo Breen MD Primary Care Provider Unavailab Jeanette Bryson Unavailable [phone] Sylvia Nguyễn Unavailable [phone] Allergies Allergen (clinical drug ingredient) Drug/Non Drug [...] Active Encounters Encounter Location Date Provider Diagnosis [facility] [address] [address] 10/15/2024 Sylvia Nguyễn Plan Of Treatment Next Appt Details Provider Name:Jeanette arnold, 01/22/2025 11:15:00 AM, [address] [place] [address], [address], Progress Notes * Kaitlin BROWN MDOB:[birth year] (79 yo F)Acc No.[id number]:10/15/2024 Progress Note Patient:?STEPHANIE Kaitlin Noel Provider:?Sylvia Nguyễn DPM :1945???Age:79 Y???Sex:Female D ate:10/15/2024 Address:[address] [place], [place] [id number] Pcp:Ricardo Breen MD Subjective: * Chief Complaints: [...] DPM Date:?0 10/15/2024 Generated for Jeny ball/Chance/Pallavi on:?11/17/2024 07:17 PM EDT
--- OUTSIDE RECORDS SUMMARY | 2024-11-17 19:17 | XMS_ITS | Patient Health Record ---
Author [facility] Address [address] [place] [address] Care Team Providers Care Dietetics Teacher Name Role Phone Jamshid RAUSCH, Ricardo Primary Care Provider Unavailab Jeanette Bryson Unavailable [phone] Prosper Henson Unavailable [phone] Slyvia Nguyễn Unavailable [phone] Allergies Allergen (clinical drug ingredient) Drug/Non Drug [...] Range Notes HEMOGLOBIN A1C (GLYCOHEMOGLO BIN) Reviewed date:10/23/2024 11:11:56 [...] Problem Acquired hammer toe of right foot (9960909993707317 ) Other hammer toe(s) (acquired), right foot (M20.41) Active confirmed Problem Acquired hallux valgus (71417921) Hallux valgus (acquired), left foot (M20.12) Active confirmed Problem Acquired hammer toe of left foot (6701565502513918 ) Other hammer toe(s) (acquired), left foot (M20.42) Active confirmed Problem Polyneuropathy due to diabetes mellitus type I (889279334) Type 1 diabetes mellitus with diabetic polyneuropathy (E10.42) Active confirmed Problem Polyneuropathy due to type 2 diabetes mellitus (937731866) Type 2 diabetes mellitus with diabetic polyneuropathy (E11.42) Active confirmed Problem Localized, primary osteoarthritis of the ankle and/or foot (552761506) Primary osteoarthritis, left ankle and foot (M19.072) Active confirmed Problem Acquired hallux rigidus (4619600) Hallux rigidus, left foot (M20.22) Active confirmed Problem Non-pressure chronic ulcer of other part of left foot limited to breakdown of skin (L97.521) Active confirmed Problem Non-pressure chronic ulcer of other part of right foot limited to breakdown of skin (L97.511) Active confirmed Problem Polyneuropathy due to type 2 diabetes mellitus (604156402) Type 2 diabetes mellitus with diabetic polyneuropathy (E11.42) Active confirmed Problem Polyneuropathy due to diabetes mellitus type I (824731177) Type 1 diabetes mellitus with diabetic polyneuropathy (E10.42) Active confirmed Problem Idiopathic gout (62612483) Acute idiopathic gout of right foot (M10.071) Active confirmed Vital Signs Blood pressure diastolic 60 mm Hg 10/23/2024 Height 5 ft 4 in in 10/23/2024 Blood pressure systolic 142 mm Hg 10/23/2024 Weight 195 lbs 10/23/2024 BMI 33.47 kg/m2 10/23/2024 Procedures Procedure Date Ordered Date Performed Result Body Sit e 70639-YWRWFMF NAIL, 6 OR MORE 07/16/2024 N/A 63956-EQSZ SKIN LESIONS, 2 TO 4 07/16/2024 N/A Encounters Encounter Location Date Provider Diagnosis [facility] [address] [place] [address] 04/16/2024 Prosper Henson Type 2 diabetes mellitus with diabetic polyneuropathy E11.42 ; Tinea unguium B35.1 ; Pain in left foot M79.672 ; Primary osteoarthritis, left ankle and foot M19.072 ; Pain in left toe(s) M79.675 ; Pain in right toe(s) M79.674 ; Hallux rigidus, left foot M20.22 ; Hallux valgus (acquired), left foot M20.12 and Localized edema R60.[address] [facility] [address] 07/16/2024 Sylvia Nguyễn Type 2 diabetes mellitus with diabetic polyneuropathy E11.42 and Tinea unguium B35.[address] [address] 10/23/2024 Jeanette Messer Type 2 diabetes mellitus with diabetic polyneuropathy E11.42 ; 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 ; Tinea unguium B35.1 ; Pain in right ankle and joints of right foot M25.571 ; Other hammer toe(s) (acquired), right foot M20.41 ; Other hammer toe(s) (acquired), left foot M20.42 and Local edema R60.[address] [address] 01/31/2024 Prosper Henson [address] [address] 10/14/2024 Sylvia Nguyễn [address] [address] 10/28/2024 Jeanette Messer Assessments Encounter Date Diagnosis [...] B35.1) 04/16/2024 Tinea unguium (ICD-10 - B35.1) 04/16/2024 Pain in left foot (ICD-10 - M79.672) 10/23/2024 Pain in right ankle and joints of right foot (ICD-10 - M25.571) 10/23/2024 Other hammer toe(s) (acquired), right foot (ICD-10 - M20.41) Patient Educated with: DIABETIC FOOT CARE INSTRUCTIONS. pdf (DIABETIC FOOT CARE INSTRUCTIONS. pdf) 04/16/2024 Primary osteoarthritis, left ankle and foot (ICD-10 - M19.072) 10/23/2024 Other hammer toe(s) (acquired), left foot [...] X ray : Foot, right 3V 10/23/2024 64757-JBKYWLF NAIL, 6 OR MORE 07/16/2024 47209-YASJWWR NAIL, 1-5 05/05/2018 42070-CASRSNE NAIL, 1-5 07/21/2018 12714-IGDRFTC NAIL, 1-5 10/13/201812/201805, J0702- INJECT or DRAIN, JOINT/BUR SA 05/05/2018 18421-WONX SKIN LESIONS, OVER 4 05/05/20 18 56402-ZGDP SKIN LESIONS, OVER 4 07/21/20 18 07999-QQXT SKIN LESIONS, OVER 4 01/13/20 19 82103-EPHA SKIN LESIONS, OVER 4 04/13/20 19 03727-VVUW SKIN LESIONS, OVER 4 10/13/19 19 74468-QLCX SKIN LESIONS, OVER 4 12/06/19 21 98890-TCKE SKIN LESIONS, OVER 4 05/08/20 21 57149-DBGZ SKIN LESIONS, OVER 4 10/18/19 22 99838-GAIU SKIN LESIONS, OVER 4 08/01/20 20 62650-SYJE SKIN LESIONS, OVER 4 03/30/20 20 13322-TUQJ SKIN LESIONS, OVER 4 07/13/20 19 51984-IVSI SKIN LESIONS, OVER 4 10/12/19 20 17723-OZCJ SKIN LESIONS, 2 TO 4 07/16/20 24 74638-HKCP SKIN LESIONS, 2 TO 4 02/20/20 18 93606, C6511-YSFPC/INJECT, JOINT/BURSA 0 10/13/2018 G4863-GPGQVSGA DYSTROPHIC NAILS ANY # O2845-YBLFCLBR DYSTROPHIC NAILS ANY # P5641-GALPEDHE DYSTROPHIC NAILS ANY # I7081-QDIHERMX DYSTROPHIC NAILS ANY # M1238-BLRJYAVK DYSTROPHIC NAILS ANY # M6466-BDDJCIQE DYSTROPHIC NAILS ANY # L7747-VETAWQAH DYSTROPHIC NAILS ANY # B1003-WPAIYHQQ DYSTROPHIC NAILS ANY # R2603-GSNGCVIZ DYSTROPHIC NAILS ANY # 08644- Nail Unit Biopsy 02/19/2018 Next Appt Details Provider Name:Jeanette arnold, 01/22/2025 11:15:00 AM, [address] [facility], [place], [address], Insurance Providers Payer Name Payer Address Payer Phone Subscriber Number Group Number Insured Name Patient Relationship to Insured Coverage Start Date Coverage End Date Medicare National [employer] [address] [place] [address] [phone] [id number] Kaitlin Ortiz Self - patient is the insured [address] [place] [address] [address] [place] [address] [id number] Kaitlin Ortiz Self - patient is the [...]
--- OUTSIDE RECORDS SUMMARY | 2024-11-17 19:17 | XMS_ITS ---
Author Organization [facility] Address [address] [place] [address] Care Team Providers Care Shroudman Name Role Phone Ricardo Breen MD Primary Care Provider Unavailab Jeanette Bryson Unavailable [phone] REASON FOR VISIT Lab Results Encounters Encounter Location Date Provider Diagnosis [address] [address] 10/28/2024 Jeanette Messer Plan Of Treatment Next Appt Details Provider Name:Jeanette arnold, 01/22/2025 11:15:00 AM, [address] [place], [address], Progress Notes * Kaitlin BROWN MDOB:[birth year] (79 yo F)Acc No.[id number]:10/28/2024 Patient:?Kaitlin BROWN Noel :1945???Age:79 Y???Sex:Female Address:[address] [place] [address] * true * Date:? Generated for Printi lizzy/Chance/eTransmitting on:?11/17/2024 07:17 PM EDT
--- OUTSIDE RECORDS SUMMARY | 2024-11-17 19:17 | XMS_ITS | Continuity of Care Document ---
Author Organization [facility] [address] [place] [address] Phone [phone] Social History Type Date Description Comments Sex [...]
--- OUTSIDE RECORDS SUMMARY | 2024-11-17 19:17 | XMS_ITS | Clinical Summary ---
Author Organization [facility] Facility Address [address] [address] Care Team Providers Care Surgical Services Tech Name Role Phone Ricardo Breen MD Primary Care Provider [phone] Medications spironolactone (ALDACTONE) 25 MG tablet TAKE [...] age to complete this topic Care Teams Surgical Services Tech Relationship Specialty Start Date End Date Ricardo Breen MD [address] [place] [address] [address] [place], [place] PCP - General 09/19/20
--- OUTSIDE RECORDS SUMMARY | 2024-11-17 19:17 | XMS_ITS ---
Author Organization [facility] Address [address] [facility] [place] [address] Care Team Providers Care Video Effects Editor Name Role Phone Ricardo Breen MD Primary Care Provider UnavailJeanette Raman Unavailable [phone] Allergies Allergen (clinical drug ingredient) Drug/Non Drug [...] W/U Status Risk Notes Problem Idiopathic gout (97387707) Acute idiopathic gout of right foot (M10.071) Active confirmed Problem Acquired hammer toe of right foot (67746796505946 05) Other hammer toe(s) (acquired), right foot (M20.41) Active confirmed Problem Acquired hammer toe of left foot (59690105995518 03) Other hammer toe(s) (acquired), left foot (M20.42) Active confirmed Vital Signs Height 5 ft 4 in in 10/23/2024 Weight 195 lbs 10/23/2024 BMI 33.47 kg/m2 10/23/2024 Blood pressure systolic 142 mm Hg 10/23/19 25 Blood pressure diastolic 60 mm Hg 025 Encounters Encounter Location Date Provider Diagnosis [facility] [address] 10/23/2024 Jeanette Gui Type 2 diabetes mellitus [...] Reason: Provider Name:Jeanette arnold, 01/22/2025 11:15:00 AM, [address] [place] [address], [phone], Procedure Notes * Category Sub-Category Detail Notes [...] use of a nail nipper and/or dremel-type machine grinder, to a more viable healthy nail [...] to maintain effectiveness in symptomatic relief - 26862 Keratoma Treatment Parring or Cutting o f [...] instrumentation by the physician of record - 21313 Progress Notes * Kaitlin BROWN MDOB:[birth year] (79 yo F)Acc No.[id number]:10/23/2024 Progress Note Patient:?SADERITUPaulettene Noel Provider:?Jeanette Messer DPM :1945???Age:79 Y???Sex:Female D ate:10/23/2024 Address:[address] [place] [address] [place], [facility] Pcp:Ricardo Breen MD Subjective: * Chief Complaints: [...] LAT, MO, Taken by a trained Podiatric Radioactive Waste Disposal Dispatcher ( SF).?Findings:?increase in soft tissue contour and [...] use of a nail nipper and/or dremel-type machine grinder, to a more viable healthy nail [...] to maintain effectiveness in symptomatic relief - 20370.?Keratoma Treatment:?Parring or Cutting of Benign Hyperkeratotic Lesion(s)?(-57) [...] instrumentation by the physician of record - 90826.? * Procedure Codes:?68482 DEBRI DE NAIL, 6 OR MORE, Modifiers: XS 02549 X-RAY EXAM OF RIGHT FOOT 3V, Modifiers: 26 , [id number] TRIM SKIN LESIONS, OVER 4, Modifiers: XS [...] Provider:?Jeanette Messer, DPM Date:? Generated for Printi ng/Fataneshag/eTransmitting on:?11/17/2024 07:17 PM EDT History and Physical Notes * [...] LAT, MO, Taken by a trained Podiatric Radioactive Waste Disposal Dispatcher ( SF) Clinical Indication(s): Evaluate for Fra cture, Evaluate for Osteomyelitis, Evaluate for possible Gout
== END 2024-11-17 16:02 | disposition home or self-care (01) ==
LOC: HO.HOSX 16:01
PROVIDERS: Visit Provider Orthopaedic Surgery
DX: Z13.89 Encounter for screening for other disorder (principal)

== ENCOUNTER 2024-11-19 08:46 | Outpatient (AMB) | payer MEDICARE, OTHER, SELFPAY ==
--- NOTE | 2024-11-19 08:59 | A.OFFVIS_ITS ---
Intake Visit Reasons: Pre-Op: L ANGELICA revision w/NE 11/25/24 Intake Note: Kaitlin is a 79 year old female who presents today for a pre op appointment for her left total hip arthroplasty revision 11/25/24 NE. Patient informed me that she gets nauseous after anaesthesia. Allergies amoxicillin [AMOXICILLIN] Allergy (Severe, Verified 11/19/24 08:59) stroke, blood clots ciprofloxacin [From CIPRO] Allergy (Severe, Verified 11/19/24 08:59) ANAPHYLAXIS Iodinated Contrast Media [IV DYE, IODINE CONTAINING CONTRAST ] Allergy (Severe, Verified 11/19/24 08:59) HIVES levofloxacin Allergy (Severe, Verified 11/19/24 08:59) Anaphylaxis liraglutide Allergy (Severe, Verified 11/19/24 08:59) Headache Penicillins Allergy (Severe, Verified 11/19/24 08:59) stroke, blood clots FREYA Inhibitors Allergy (Intermediate, Verified 11/19/24 08:59) Cough ARB-Angiotensin Receptor Antagonist Allergy (Intermediate, Verified 11/19/24 08:59) Cough cefpodoxime Allergy (Intermediate, Verified 11/19/24 08:59) Dizziness, nausea doxazosin Allergy (Intermediate, Verified 11/19/24 08:59) Shortness of Breath fluticasone [Advair Diskus] Allergy (Intermediate, Verified 11/19/24 08:59) Anxiety gabapentin [From Neurontin] Allergy (Intermediate, Verified 11/19/24 08:59) Headache hydralazine Allergy (Intermediate, Verified 11/19/24 08:59) Shortness of Breath latex Allergy (Intermediate, Verified 11/19/24 08:59) Hives linezolid Allergy (Intermediate, Verified 11/19/24 08:59) Nausea and Vomiting meloxicam Allergy (Intermediate, Verified 11/19/24 08:59) Unknown salmeterol [Advair Diskus] Allergy (Intermediate, Verified 11/19/24 08:59) Anxiety Tetanus Vaccines and Toxoid Allergy (Intermediate, Verified 11/19/24 08:59) Swelling torsemide Allergy (Intermediate, Verified 11/19/24 08:59) Shortness of Breath cephalexin [Keflex] Allergy (Mild, Verified 11/19/24 08:59) Nausea HPI HPI Pre-Op: L ANGELICA revision w/NE 11/25/24: Details: Ms. Ortiz this is a 79-year-old female who presents to the office today for her history and physical preoperative appointment pending left total hip revision with Dr. Rueda scheduled for 11-25-24. [facility] Medical History PAF (paroxysmal atrial fibrillation) Suprapubic catheter Neuropathy Osteoarthritis Morbid obesity Allergy to multiple antibiotics Depression Arthritis of left hip Wears dentures Neurogenic urinary bladder disorder History of blood transfusion History of CVA (cerebrovascular accident) Seasonal allergies PONV (postoperative nausea and vomiting) Diabetes with neurologic complications Type 2 diabetes mellitus with unspecified complications Anemia CLL (chronic lymphocytic leukemia) Sleep apnea Arthritis Fibromyalgia Hypercholesterolemia Hypertension History of bilateral breast cancer Urinary retention with incomplete bladder emptying Surgical History History of cervical discectomy History of open heart surgery (~01/31/24) History of total left hip replacement S/P Botox injection History of suprapubic catheter S/P left breast biopsy History of esophagogastroduodenoscopy (EGD) Hx of colonoscopy History of bladder repair surgery History of total hysterectomy S/P breast biopsy, right History of back surgery History of biopsy of bladder Family History Mother Breast cancer Father Heart disease Father Lung cancer Mother Colon cancer Brother Pancreatic cancer Social History Household Members: Spouse Housing: House Housing Other:: has chair lift for second floor access Are you a primary care tech to a significant other at home: No Do you presently have visiting nurse or other home services: Yes (visiting nurse-recent in patient for UTI) Alcohol intake: never Comment: patient refused telesiter,removed per pt request Patient Tobacco Use Status: Never used Tobacco Advance Directives Date on File: 07/30/23 service: No Current occupational status: retired Female Reproductive History Menstrual Age of Menarche: 15 Review of Systems Const All systems reviewed & are unremarkable except as noted in HPI and below Physical Exam Const General: cooperative, healthy appearing, comfortable, no acute distress, well developed, alert and awake Orientation/consciousness: patient oriented x3 HEENT Head: Yes normal to inspection, Yes normocephalic and Yes atraumatic Eyes General: appearance normal, both eyes and all related structures Neck Neck: Yes normal visual inspection and Yes no lymphadenopathy Resp Effort & Inspection: normal respiratory effort and able to speak in complete sentences Cardio Rate: regular rate Peripheral pulses: Peripheral pulses 2+ throughout GI Inspection: Yes normal to inspection Palpation (GI): Soft to palpation Skin General skin exam: no rashes or lesions noted Neuro General: patient oriented x3 Extrem Other: There is groin pain with hip range of motion. 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 Ortiz this is a 79-year-old female who presents to the office today for her history and physical preoperative appointment pending left total hip revision with Dr. Rueda scheduled for 11/25/24. Patient has a significant past medical history and was seen by several providers for preoperative clearance and recommendations preoperatively and postoperatively: Dr. Breen is the patient's primary care provider and saw the patient on 11/03/2024 and reports that the patient is high risk but stable and cleared for surgery. The patient has a history of recurrent UTIs in which she sees Infectious Disease, Dr. Martinez and Urology, Dr. Novak. The patient has a suprapubic catheter that was placed in October of 2021. Dr. Hayes recommended no urological clearance is needed prior to revision left total hip arthroplasty. Orthopedics will consult Urology if concerns arise while patient is admitted status post surgery. Dr. Martinez last saw the patient on 10/28/2024 for recurrent UTIs and reported that the patient will likely remain colonized by Pseudomonas and stenotrophomonas and to only treat UTIs if symptomatic. Dr. Martinez states that eradication is not possible. UTIs typically present bout monthly for this patient. Roughly 6 months ago a permanent port for antibiotics was placed for patient to administer IV antibiotics at home when a UTIs present. Patient was last treated on 10/28/2024 for a 14 day course of cefepime. Patient also has a significant cardiac history for atherosclerotic cardiovascular disease, aorta coronary bypass graft, cardiac catheterization, AFib, aortic stenosis, type 2 diabetes (last A1c was 6.2), HTN, HLD in which Dr. Agustin has seen him monitor this patient. Dr. Agustin last saw the patient on 09/15/2024 for the history of bypass surgery the patient is on statins and a low-dose aspirin. Patient did have a bout of AFib postoperatively but was given amiodarone. She is no longer taking this as recent Holter monitor revealed that she was in normal sinus rhythm. She did have a recent echocardiogram which revealed mild aortic stenosis and regurgitation but this is not deemed hemodynamically significant. Patient was cleared from a cardiac standpoint and deemed intermediate risk. Lastly, patient has a history of CLL and breast cancer in which she is treated by Oncology with Dr. Worthy. Patient is currently taking Ibrutinib, in which she will hold as stated in the Workload Message on 11/21/24from Dr. Worthy. Per recommendations on DVT ppx standard anticoag protocol can be followed. ESR and CRP was ordered at today's visit: ESR:23 CRP:0.30 Due to the slightly elevated ESR we have decided to move forward with left hip joint aspiration to rule out infection prior to performing revision left total hip arthroplasty. This is scheduled for 11/23/2024 with interventional radiology. A cell count as well as Gram stain will be obtained. I discussed in detail the procedure and what to expect pre and post operatively. We discussed the risks, benefits and alternatives to the surgery as well as the rehabilitation course. The risks; which include, but are not limited to infection, bleeding, nerve injury, ongoing pain, swelling, and stiffness, perioperative risk of injury to bones and soft tissues, and blood clots. I?ve answered all questions and with their understanding they have consented to move forward with revision left total hip arthroplasty with Dr. Rueda. Allergy to: PCN, Cipro, Levofloxacin, Doxazosin, Keflex, Doxazosin and Cefpodoxime Postoperative DVT pp: Lovenox Able to tolerate Celebrex Patient [facility] to [facility] after total hip arthroplasty in 2022. Should she need rehab placement she would like to attend the same facility. Patient's Rom will be in the waiting room on the day of surgery. 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
--- OUTSIDE RECORDS SUMMARY | 2024-11-19 09:31 | XMS_ITS ---
Author Organization [facility] Address [address] [place] [address] Care Team Providers Care Typesetting Supervisor Name Role Phone Ricardo Breen MD Primary Care Provider Unavailab Jeanette Bryson Unavailable [phone] REASON FOR VISIT Lab Results Encounters Encounter Location Date Provider Diagnosis [address] [address] 10/28/2024 Jeanette Messer Plan Of Treatment Next Appt Details Provider Name:Jeanette arnold, 01/22/2025 11:15:00 AM, [address] [place] [address], [phone], Progress Notes * Kaitlin BROWN MDOB:[birth year] (79 yo F)Acc No.[id number]:10/28/2024 Patient:?Kaitlin BROWN Noel :1945???Age:79 Y???Sex:Female Address:[address] [place] [address] * true * Date:? Generated for Printi lizzy/Chance/eTransmitting on:?11/19/2024 09:31 AM EDT
--- OUTSIDE RECORDS SUMMARY | 2024-11-19 09:31 | XMS_ITS | Continuity of Care Document ---
Author Organization [facility] [address] [facility] [address] [place] [address] Phone [phone] Social History Type Date Description Comments Sex [...]
--- OUTSIDE RECORDS SUMMARY | 2024-11-19 09:31 | XMS_ITS | Patient Health Record ---
Author Organization [facility] Address [address] [place] [address] Care Team Providers Care Net C Developer Name Role Phone Jamshid RAUSCH, Ricardo Primary Care Provider Unavailab Jeanette Bryson Unavailable [phone] Prosper Henson Unavailable [phone] Sylvia Nguyễn Unavailable [phone] Allergies Allergen (clinical drug ingredient) Drug/Non Drug [...] Problem Acquired hammer toe of right foot (9482555777978130 ) Other hammer toe(s) (acquired), right foot (M20.41) Active confirmed Problem Acquired hallux valgus (43389319) Hallux valgus (acquired), left foot (M20.12) Active confirmed Problem Acquired hammer toe of left foot (7585371527872437 ) Other hammer toe(s) (acquired), left foot (M20.42) Active confirmed Problem Polyneuropathy due to diabetes mellitus type I (049760514) Type 1 diabetes mellitus with diabetic polyneuropathy (E10.42) Active confirmed Problem Polyneuropathy due to type 2 diabetes mellitus (023414012) Type 2 diabetes mellitus with diabetic polyneuropathy (E11.42) Active confirmed Problem Localized, primary osteoarthritis of the ankle and/or foot (144274269) Primary osteoarthritis, left ankle and foot (M19.072) Active confirmed Problem Acquired hallux rigidus (0026363) Hallux rigidus, left foot (M20.22) Active confirmed Problem Non-pressure chronic ulcer of other part of left foot limited to breakdown of skin (L97.521) Active confirmed Problem Non-pressure chronic ulcer of other part of right foot limited to breakdown of skin (L97.511) Active confirmed Problem Polyneuropathy due to type 2 diabetes mellitus (599878495) Type 2 diabetes mellitus with diabetic polyneuropathy (E11.42) Active confirmed Problem Polyneuropathy due to diabetes mellitus type I (166335204) Type 1 diabetes mellitus with diabetic polyneuropathy (E10.42) Active confirmed Problem Idiopathic gout (58255996) Acute idiopathic gout of right foot (M10.071) Active confirmed Vital Signs Blood pressure diastolic 60 mm Hg 10/23/2024 Height 5 ft 4 in in 10/23/2024 Blood pressure systolic 142 mm Hg 10/23/2024 Weight 195 lbs 10/23/2024 BMI 33.47 kg/m2 10/23/2024 Procedures Procedure Date Ordered Date Performed Result Body Sit e 43700-UBONRYE NAIL, 6 OR MORE 07/16/2024 N/A 07366-JQXQ SKIN LESIONS, 2 TO 4 07/16/2024 N/A Encounters Encounter Location Date Provider Diagnosis [facility] [address] [address] [place] [address] 04/16/2024 Prosper Henson Type 2 diabetes mellitus with diabetic polyneuropathy E11.42 ; Tinea unguium B35.1 ; Pain in left foot M79.672 ; Primary osteoarthritis, left ankle and foot M19.072 ; Pain in left toe(s) M79.675 ; Pain in right toe(s) M79.674 ; Hallux rigidus, left foot M20.22 ; Hallux valgus (acquired), left foot M20.12 and Localized edema R60.[address] [facility] [address] 07/16/2024 Sylvia Nguyễn Type 2 diabetes mellitus with diabetic polyneuropathy E11.42 and Tinea unguium B35.[address] [address] 10/23/2024 Jeanette Messer Type 2 diabetes mellitus with diabetic polyneuropathy E11.42 ; 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 ; Tinea unguium B35.1 ; Pain in right ankle and joints of right foot M25.571 ; Other hammer toe(s) (acquired), right foot M20.41 ; Other hammer toe(s) (acquired), left foot M20.42 and Local edema R60.[address] [address] 01/31/2024 Prosper Henson [address] [address] 10/14/2024 Sylvia Nguyễn [address] [address] 10/28/2024 Jeanette Messer Assessments Encounter Date Diagnosis [...] X ray : Foot, right 3V 10/23/2024 34971-PHNEEBF NAIL, 6 OR MORE 07/16/2024 77455-VYIYUVK NAIL, 1-5 05/05/2018 81119-MLKRSFD NAIL, 1-5 07/21/2018 10738-HCNCQBB NAIL, 1-5 10/13/201812/201805, J0702- INJECT or DRAIN, JOINT/BUR SA 05/05/2018 32908-CLQR SKIN LESIONS, OVER 4 05/05/20 18 14519-BEIK SKIN LESIONS, OVER 4 07/21/20 18 50590-IFXR SKIN LESIONS, OVER 4 01/13/20 19 57375-PQXC SKIN LESIONS, OVER 4 04/13/20 19 00474-EKIF SKIN LESIONS, OVER 4 10/13/19 19 21527-IOSF SKIN LESIONS, OVER 4 12/06/19 21 64570-QHWQ SKIN LESIONS, OVER 4 05/08/20 21 94675-ZFRA SKIN LESIONS, OVER 4 10/18/19 22 18591-WLMZ SKIN LESIONS, OVER 4 08/01/20 20 67028-XOIX SKIN LESIONS, OVER 4 03/30/20 20 31646-WIXZ SKIN LESIONS, OVER 4 07/13/20 19 03627-RRSW SKIN LESIONS, OVER 4 10/12/19 20 92739-JUTX SKIN LESIONS, 2 TO 4 07/16/20 24 91589-GOSF SKIN LESIONS, 2 TO 4 02/20/20 18 67918, R4273-ITRMV/INJECT, JOINT/BURSA 0 10/13/2018 O6049-YVKKTDWR DYSTROPHIC NAILS ANY # B1651-HPDAMMRG DYSTROPHIC NAILS ANY # E5168-LGQJIXRJ DYSTROPHIC NAILS ANY # S6610-KZXVOOQN DYSTROPHIC NAILS ANY # M3631-XHVUDLYR DYSTROPHIC NAILS ANY # T3927-OODUBCGF DYSTROPHIC NAILS ANY # A9938-WKUUJAJW DYSTROPHIC NAILS ANY # W4470-MQELACTI DYSTROPHIC NAILS ANY # G5091-CIVOXOLE DYSTROPHIC NAILS ANY # 65126- Nail Unit Biopsy 02/19/2018 Next Appt Details Provider Name:Jeanette arnold, 01/22/2025 11:15:00 AM, [address] [facility], [place], [address], Insurance Providers Payer Name Payer Address Payer Phone Subscriber Number Group Number Insured Name Patient Relationship to Insured Coverage Start Date Coverage End Date Medicare National [employer]t [employer] [address] [facility] [place] [address] [id number] Kaitlin Ortiz Self - patient is the insured [address] [place] [address] [address] [place] [address] [id number] Kaitlin Ortiz Self - patient is the [...]
--- OUTSIDE RECORDS SUMMARY | 2024-11-19 09:31 | XMS_ITS ---
Author Organization [facility] Address [address] [place] [address] Care Team Providers Care Patent Law Specialist Name Role Phone Ricardo Breen MD Primary Care Provider UnavailJeanette Raman Unavailable [phone] Allergies Allergen (clinical drug ingredient) Drug/Non Drug [...] W/U Status Risk Notes Problem Idiopathic gout (95161196) Acute idiopathic gout of right foot (M10.071) Active confirmed Problem Acquired hammer toe of right foot (30219691050403 05) Other hammer toe(s) (acquired), right foot (M20.41) Active confirmed Problem Acquired hammer toe of left foot (98757539965658 03) Other hammer toe(s) (acquired), left foot (M20.42) Active confirmed Vital Signs Height 5 ft 4 in in 10/23/2024 Weight 195 lbs 10/23/2024 BMI 33.47 kg/m2 10/23/2024 Blood pressure systolic 142 mm Hg 10/23/19 25 Blood pressure diastolic 60 mm Hg 025 Encounters Encounter Location Date Provider Diagnosis [facility] [address] 10/23/2024 Jeanette Gui Type 2 diabetes mellitus [...] Reason: Provider Name:Jeanette arnold, 01/22/2025 11:15:00 AM, [address] [place] [address], [phone], Procedure Notes * Category Sub-Category Detail Notes [...] use of a nail nipper and/or dremel-type perlite grinder, to a more viable healthy nail [...] to maintain effectiveness in symptomatic relief - 51746 Keratoma Treatment Parring or Cutting o f [...] instrumentation by the physician of record - 90564 Progress Notes * Kaitlin BROWN MDOB:[birth year] (79 yo F)Acc No.[id number]:10/23/2024 Progress Note Patient:?SADERITUPaulettene Noel Provider:?Jeanette Messer DPM :1945???Age:79 Y???Sex:Female D ate:10/23/2024 Address:[address] [place] [address] [place], [facility] Pcp:Ricardo Breen MD Subjective: * Chief Complaints: [...] LAT, [place], Taken by a trained Podiatric Art Instructor ( SF).?Findings:?increase in soft tissue contour and [...] use of a nail nipper and/or dremel-type perlite grinder, to a more viable healthy nail [...] to maintain effectiveness in symptomatic relief - 67639.?Keratoma Treatment:?Parring or Cutting of Benign Hyperkeratotic Lesion(s)?(-57) [...] instrumentation by the physician of record - 67636.? * Procedure Codes:?16093 DEBRI DE NAIL, 6 OR MORE, Modifiers: XS 92946 X-RAY EXAM OF RIGHT FOOT 3V, Modifiers: 26 , [id number] TRIM SKIN LESIONS, OVER 4, Modifiers: XS [...] Messer, DPM Date:? Generated for Printi ng/Chance/eTransmitting on:?11/19/2024 09:31 AM EDT History and Physical Notes * HPI [...] LAT, [place], Taken by a trained Podiatric Art Instructor ( SF) Clinical Indication(s): Evaluate for Fra cture, Evaluate for Osteomyelitis, Evaluate for possible Gout
--- OUTSIDE RECORDS SUMMARY | 2024-11-19 09:31 | XMS_ITS ---
Author Organization [facility] Address [address] [place] [address] Care Team Providers Care Biofuels Technology Manager Name Role Phone Ricardo Breen MD Primary Care Provider Unavailab Jeanette Bryson Unavailable [phone] Sylvia Nguyễn Unavailable [phone] Allergies Allergen (clinical drug ingredient) Drug/Non Drug [...] Active Encounters Encounter Location Date Provider Diagnosis [facility] [address] [address] 10/15/2024 Sylvia Nguyễn Plan Of Treatment Next Appt Details Provider Name:Jeanette arnold, 01/22/2025 11:15:00 AM, [address] [place] [address], [phone], Progress Notes * Kaitlin BROWN MDOB:[birth year] (79 yo F)Acc No.[id number]:10/15/2024 Progress Note Patient:?STEPHANIE Kaitlin Noel Provider:?Sylvia Nguyễn DPM :1945???Age:79 Y???Sex:Female D ate:10/15/2024 Address:[address] [place], [place] [id number] Pcp:Ricardo Breen MD Subjective: * Chief Complaints: [...] DPM Date:?0 10/15/2024 Generated for Jeny ball/Chance/Pallavi on:?11/19/2024 09:30 AM EDT
--- OUTSIDE RECORDS SUMMARY | 2024-11-19 09:31 | XMS_ITS | Clinical Summary ---
Author Organization [facility] Address [address] [address] Care Team Providers Care Rotor Casting Machine Setup Operator Name Role Phone Ricardo Breen MD Primary Care Provider [phone] Medications spironolactone (ALDACTONE) 25 MG tablet TAKE [...] age to complete this topic Care Teams Rotor Casting Machine Setup Operator Relationship Specialty Start Date End Date Ricardo Breen MD [address] [place] [address] [address] [place], [place] PCP - General 09/19/20
== END 2024-11-19 09:26 | disposition home or self-care (01) ==
LOC: HO.HOS 08:46
PROVIDERS: PCP Family Medicine; Visit Provider Physician Assistant
DX: T84.031A Mechanical loosening of internal left hip prosthetic joint, initial encounter (principal)
CPT/HCPCS: 99024

== ENCOUNTER → 2024-11-19 08:48 | Outpatient (BNV) | payer MEDICARE, OTHER, SELFPAY | PROVIDERS: Visit Provider Radiology Diagnostic Radiology | DX: M25.552 Pain in left hip (principal) | CPT/HCPCS: 73502 ==

== ENCOUNTER 2024-11-19 09:06 | Outpatient (REF) | payer MEDICARE, OTHER, SELFPAY ==
--- NOTE | ~2024-11-19 | XR_ITS ---
EXAMINATION: XR HIP 2 OR MORE VIEWS LEFT HISTORY: M25.559 - Pain in unspecified hip COMPARISON: Comparison is made with the prior examination dated 06/18/2024. FINDINGS: A single AP view of the pelvis and two views of the left hip are submitted. The patient is again noted to be status post left total hip arthroplasty. Again seen is a fracture of the medial acetabular screw. No new hardware abnormality is identified. There is no osseous fracture. There are vascular calcifications. XR/XR hip LT min 2V IMPRESSION: Status post left total hip arthroplasty without change. Again seen is fracture of the medial acetabular screw. Electronically signed by: Rivera Rahman MD 11/19/2024 09:45 AM EDT
--- OUTSIDE RECORDS SUMMARY | 2024-11-20 09:41 | XMS_ITS ---
Author Organization [facility] Address [address] [facility] [place] [address] Care Team Providers Care Butt Sawyer Name Role Phone Ricardo Breen MD Primary Care Provider Unavailab Jeanette Bryson Unavailable [phone] Sylvia Nguyễn Unavailable [phone] Allergies Allergen (clinical drug ingredient) Drug/Non Drug [...] Active Encounters Encounter Location Date Provider Diagnosis [facility] [address] [address] 10/15/2024 Sylvia Nguyễn Plan Of Treatment Next Appt Details Provider Name:Jeanette arnold, 01/22/2025 11:15:00 AM, [address] [place] [address], [phone], Progress Notes * Kaitlin BROWN MDOB:[birth year] (79 yo F)Acc No.[id number]:10/15/2024 Progress Note Patient:?STEPHANIE Kaitlin Noel Provider:?Sylvia Nguyễn DPM :1945???Age:79 Y???Sex:Female D ate:10/15/2024 Address:[address] [place], [place] [id number] Pcp:Ricardo Breen MD Subjective: * Chief Complaints: [...] DPM Date:?0 10/15/2024 Generated for Jeny ball/Chance/Pallavi on:?11/20/2024 09:41 AM EDT
--- OUTSIDE RECORDS SUMMARY | 2024-11-20 09:41 | XMS_ITS | Clinical Summary ---
Author Organization [facility] Address [address] [address] Care Team Providers Care Half Section Ironer Name Role Phone Ricardo Breen MD Primary Care Provider Medications spironolactone (ALDACTONE) 25 MG tablet TAKE [...] age to complete this topic Care Teams Half Section Ironer Relationship Specialty Start Date End Date Ricardo Breen MD [address] [place] [address] DR [address] [place], [place] PCP - General 09/19/20
--- OUTSIDE RECORDS SUMMARY | 2024-11-20 09:42 | XMS_ITS ---
Author Organization [facility] Address [address] [facility] [place] [place] [address] Care Team Providers Care Art Gilder Name Role Phone Ricardo Breen MD Primary Care Provider UnavailJeanette Raman Unavailable [phone] Allergies Allergen (clinical drug ingredient) Drug/Non Drug [...] W/U Status Risk Notes Problem Idiopathic gout (54471747) Acute idiopathic gout of right foot (M10.071) Active confirmed Problem Acquired hammer toe of right foot (12271514538985 05) Other hammer toe(s) (acquired), right foot (M20.41) Active confirmed Problem Acquired hammer toe of left foot (42172350618612 03) Other hammer toe(s) (acquired), left foot (M20.42) Active confirmed Vital Signs Height 5 ft 4 in in 10/23/2024 Weight 195 lbs 10/23/2024 BMI 33.47 kg/m2 10/23/2024 Blood pressure systolic 142 mm Hg 10/23/19 25 Blood pressure diastolic 60 mm Hg 025 Encounters Encounter Location Date Provider Diagnosis [facility] [address] 10/23/2024 Jeanette Gui Type 2 diabetes mellitus [...] Provider Name:Jeanette arnold, 01/22/2025 11:15:00 AM, [address] [place] [address], [phone], Procedure Notes * Category Sub-Category Detail Notes [...] use of a nail nipper and/or dremel-type disk grinder, to a more viable healthy nail [...] to maintain effectiveness in symptomatic relief - 80612 Keratoma Treatment Parring or Cutting o f [...] instrumentation by the physician of record - 81600 Progress Notes * Kaitlin BROWN MDOB:[birth year] (79 yo F)Acc No.[id number]:10/23/2024 Progress Note Patient:?SADERITUPaulettene Noel Provider:?Jeanette Messer DPM :1945???Age:79 Y???Sex:Female D ate:10/23/2024 Address:[address] [place] [address] [place], [facility] Pcp:Ricardo Breen MD Subjective: * Chief Complaints: [...] [place], [place], Taken by a trained Podiatric Asl Interpreter ( SF).?Findings:?increase in soft tissue contour and [...] use of a nail nipper and/or dremel-type disk grinder, to a more viable healthy nail [...] to maintain effectiveness in symptomatic relief - 12347.?Keratoma Treatment:?Parring or Cutting of Benign Hyperkeratotic Lesion(s)?(-57) [...] instrumentation by the physician of record - 92732.? * Procedure Codes:?09238 DEBRI DE NAIL, 6 OR MORE, Modifiers: XS 14177 X-RAY EXAM OF RIGHT FOOT 3V, Modifiers: 26 , [id number] TRIM SKIN LESIONS, OVER 4, Modifiers: XS [...] * Sign off status: Completed true * Provider:?Jeaentte Messer, DPM Date:? Generated for Printi ng/Fakristine/eTransmitting on:?11/20/2024 09:41 AM EDT History and Physical Notes * [...] [place], [place], Taken by a trained Podiatric Asl Interpreter ( SF) Clinical Indication(s): Evaluate for Fra cture, Evaluate for Osteomyelitis, Evaluate for possible Gout
--- OUTSIDE RECORDS SUMMARY | 2024-11-20 09:42 | XMS_ITS | Patient Health Record ---
[facility] Address [address] [place] [address] Care Team Providers Care Crab Steamer Name Role Phone Jamshid RAUSCH, Ricardo Primary Care Provider Unavailab Jeanette Bryson Unavailable [phone] Prosper Henson Unavailable [phone] Sylvia Nguyễn Unavailable [phone] Allergies Allergen (clinical drug ingredient) Drug/Non Drug [...] Problem Acquired hammer toe of right foot (8667935995432258 ) Other hammer toe(s) (acquired), right foot (M20.41) Active confirmed Problem Acquired hallux valgus (40503392) Hallux valgus (acquired), left foot (M20.12) Active confirmed Problem Acquired hammer toe of left foot (1339913562933200 ) Other hammer toe(s) (acquired), left foot (M20.42) Active confirmed Problem Polyneuropathy due to diabetes mellitus type I (909819273) Type 1 diabetes mellitus with diabetic polyneuropathy (E10.42) Active confirmed Problem Polyneuropathy due to type 2 diabetes mellitus (325569438) Type 2 diabetes mellitus with diabetic polyneuropathy (E11.42) Active confirmed Problem Localized, primary osteoarthritis of the ankle and/or foot (263452612) Primary osteoarthritis, left ankle and foot (M19.072) Active confirmed Problem Acquired hallux rigidus (6157592) Hallux rigidus, left foot (M20.22) Active confirmed Problem Non-pressure chronic ulcer of other part of left foot limited to breakdown of skin (L97.521) Active confirmed Problem Non-pressure chronic ulcer of other part of right foot limited to breakdown of skin (L97.511) Active confirmed Problem Polyneuropathy due to type 2 diabetes mellitus (196211074) Type 2 diabetes mellitus with diabetic polyneuropathy (E11.42) Active confirmed Problem Polyneuropathy due to diabetes mellitus type I (182934452) Type 1 diabetes mellitus with diabetic polyneuropathy (E10.42) Active confirmed Problem Idiopathic gout (85899655) Acute idiopathic gout of right foot (M10.071) Active confirmed Vital Signs Blood pressure diastolic 60 mm Hg 10/23/2024 Height 5 ft 4 in in 10/23/2024 Blood pressure systolic 142 mm Hg 10/23/2024 Weight 195 lbs 10/23/2024 BMI 33.47 kg/m2 10/23/2024 Procedures Procedure Date Ordered Date Performed Result Body Sit e 85843-OOVVYPJ NAIL, 6 OR MORE 07/16/2024 N/A 77372-YPPM SKIN LESIONS, 2 TO 4 07/16/2024 N/A Encounters Encounter Location Date Provider Diagnosis [facility] [address] [place] [address] 04/16/2024 Prosper Henson Type 2 diabetes mellitus with diabetic polyneuropathy E11.42 ; Tinea unguium B35.1 ; Pain in left foot M79.672 ; Primary osteoarthritis, left ankle and foot M19.072 ; Pain in left toe(s) M79.675 ; Pain in right toe(s) M79.674 ; Hallux rigidus, left foot M20.22 ; Hallux valgus (acquired), left foot M20.12 and Localized edema R60.[address] [facility] [address] 07/16/2024 Sylvia Nguyễn Type 2 diabetes mellitus with diabetic polyneuropathy E11.42 and Tinea unguium B35.[address] [address] 10/23/2024 Jeanette Messer Type 2 diabetes mellitus with diabetic polyneuropathy E11.42 ; 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 ; Tinea unguium B35.1 ; Pain in right ankle and joints of right foot M25.571 ; Other hammer toe(s) (acquired), right foot M20.41 ; Other hammer toe(s) (acquired), left foot M20.42 and Local edema R60.[address] [address] 01/31/2024 Prosper Henson [address] [address] 10/14/2024 Sylvia Nguyễn [address] [address] 10/28/2024 Jeanette Messer Assessments Encounter Date Diagnosis [...] X ray : Foot, right 3V 10/23/2024 33478-RJCHZKF NAIL, 6 OR MORE 07/16/2024 08245-LBHCYNA NAIL, 1-5 05/05/2018 79513-STMKQAF NAIL, 1-5 07/21/2018 79367-ZPWMQTP NAIL, 1-5 10/13/201812/201805, J0702- INJECT or DRAIN, JOINT/BUR SA 05/05/2018 60805-UZFC SKIN LESIONS, OVER 4 05/05/20 18 01636-SFLD SKIN LESIONS, OVER 4 07/21/20 18 20723-NPWQ SKIN LESIONS, OVER 4 01/13/20 19 62019-BHWT SKIN LESIONS, OVER 4 04/13/20 19 78797-RVVA SKIN LESIONS, OVER 4 10/13/19 19 69168-BWUE SKIN LESIONS, OVER 4 12/06/19 21 34902-KWYJ SKIN LESIONS, OVER 4 05/08/20 21 30902-ZZRW SKIN LESIONS, OVER 4 10/18/19 22 09625-IXOM SKIN LESIONS, OVER 4 08/01/20 20 65681-CEPO SKIN LESIONS, OVER 4 03/30/20 20 37692-UOAH SKIN LESIONS, OVER 4 07/13/20 19 56244-WQAZ SKIN LESIONS, OVER 4 10/12/19 20 53725-MUIH SKIN LESIONS, 2 TO 4 07/16/20 24 30255-AMUY SKIN LESIONS, 2 TO 4 02/20/20 18 46532, P2085-GHHIJ/INJECT, JOINT/BURSA 0 10/13/2018 N9152-HTGWJFAV DYSTROPHIC NAILS ANY # B7603-NITLBCZT DYSTROPHIC NAILS ANY # K7486-BGARNDVD DYSTROPHIC NAILS ANY # F2546-FOGNZVIJ DYSTROPHIC NAILS ANY # S6822-WVZREDON DYSTROPHIC NAILS ANY # P2471-CTBEPJIZ DYSTROPHIC NAILS ANY # A6123-QRQXQESD DYSTROPHIC NAILS ANY # L3279-IDQVXBNE DYSTROPHIC NAILS ANY # K8138-QXEKKHKU DYSTROPHIC NAILS ANY # 31669- Nail Unit Biopsy 02/19/2018 Next Appt Details Provider Name:Jeanette arnold, 01/22/2025 11:15:00 AM, [address] [facility], [place], [address], Insurance Providers Payer Name Payer Address Payer Phone Subscriber Number Group Number Insured Name Patient Relationship to Insured Coverage Start Date Coverage End Date Medicare National [employer] [address] [facility] [place] [address] [phone] [id number] Kaitlin Ortiz Self - patient is the insured [address] [place] [address] [address] [place] [address] [phone] [id number] Kaitlin Ortiz Self - patient is the [...]
--- OUTSIDE RECORDS SUMMARY | 2024-11-20 09:42 | XMS_ITS ---
Author Organization [facility] Address [address] [place] [address] Care Team Providers Care Crepe Laminator Operator Name Role Phone Ricardo Breen MD Primary Care Provider Unavailab Jeanette Bryson Unavailable [phone] REASON FOR VISIT Lab Results Encounters Encounter Location Date Provider Diagnosis [address] [address] 10/28/2024 Jeanette Messer Plan Of Treatment Next Appt Details Provider Name:Jeanette arnold, 01/22/2025 11:15:00 AM, [address] [place] [address], [phone], Progress Notes * Kaitlin BROWN MDOB:[birth year] (79 yo F)Acc No.[id number]:10/28/2024 Patient:?Kaitlin BROWN Noel :1945???Age:79 Y???Sex:Female Address:[address] [place] [address] * true * Date:? Generated for Printi lizzy/Chance/eTransmitting on:?11/20/2024 09:41 AM EDT
== END 2024-11-19 09:07 | disposition home or self-care (01) ==
LOC: HO.HOSX 09:06
PROVIDERS: Visit Provider Physician Assistant
DX: T84.031A Mechanical loosening of internal left hip prosthetic joint, initial encounter (principal); Z96.642 Presence of left artificial hip joint
CPT/HCPCS: 73502; 99212

== ENCOUNTER 2024-11-23 14:56 | Outpatient (REF) | payer MEDICARE, OTHER, SELFPAY ==
--- NOTE | ~2024-11-23 | FL_ITS ---
EXAMINATION: Ultrasound-guided left hip joint aspiration. CLINICAL INDICATION: Left hip prosthesis with pain. Evaluate for loosening or infection. COMPARISON: Left hip 11/19/2024. TECHNIQUE: Following explaining the left hip joint fluoroscopy aspiration procedure, benefits and risk, a written consent was obtained. The area on the left hip skin was marked under fluoroscopy. The area was prepped and draped in usual sterile manner. 1% local Xylocaine was injected at the marked site. A 20-gauge long spinal needle was advanced from the skin marker in the left hip joint space position medially and laterally along the femoral neck and lateral femoral neck. 1 to 2 mL of pinkish fluid was aspirated. The fluid collection was sent into two test tubes for further evaluation. Postprocedure needle was withdrawn and complete hemostasis achieved at puncture site. Simple Band-Aid applied post procedure. Findings/ FL/FL Guided Asp Inj Major Jt LT impression: There is a total left hip prosthesis in satisfactory alignment. The medial acetabular screw has been severed. It is unchanged to previous exam 11/19/2024. Rest of the left hip prosthesis is unremarkable. Successful left hip joint aspiration performed. Electronically signed by: Cb Mcfadden MD 11/24/2024 03:56 PM EDT
[2024-11-23 16:17] LABS: Source Synovial Fluid Left Hip
[2024-11-23 16:38] LABS: MN% 5.1 %; PMN% 94.9 %; RBC Synovial Fluid 0.026 X10*6/uL
[2024-11-23 19:30] LABS: BF Shift QC OK YES; Lymphocytes Synovial Fluid 4 %; Monocytes Synovial Fluid 4 %; Neutrophils Synovial Fluid 90 %; Other Cells Synovial Fluid 2
== END 2024-11-23 14:57 | disposition home or self-care (01) ==
LOC: HO.XRAY 14:56
PROVIDERS: Visit Provider Physician Assistant
DX: T84.031A Mechanical loosening of internal left hip prosthetic joint, initial encounter (principal); T84.52XA Infection and inflammatory reaction due to internal left hip prosthesis, initial encounter; M00.052 Staphylococcal arthritis, left hip; B95.7 Other staphylococcus as the cause of diseases classified elsewhere
CPT/HCPCS: 20610; 77002; 87070; 87073; 87077; 87186; 87205; 88173; 88305; 89051

== ENCOUNTER → 2024-11-23 15:00 | Outpatient (BNV) | payer MEDICARE, OTHER, SELFPAY | PROVIDERS: Visit Provider Radiology Diagnostic Radiology | DX: M25.552 Pain in left hip (principal) | CPT/HCPCS: 20610; 77002 ==

== ENCOUNTER 2024-11-25 | Outpatient (REF) | payer MEDICARE, OTHER, SELFPAY ==
--- OUTSIDE RECORDS SUMMARY | 2024-09-16 13:45 | XMS_ITS ---
Author Organization [facility] Address [address] [place] [address] Care Team Providers Care Vessel Captain Name Role Phone Ricardo Breen MD Primary Care Provider Unavailab Sylvia Kirkpatrick Unavailable [phone] Prosper Henson Unavailable [phone] REASON FOR VISIT Painful nail(s) aggrevated by shoes and causing difficulty standing/walking. Medications Medication SIG (Take, Route, Frequency, Duration) Notes Start Date End Date Status Voltaren 1 % as directed Externally Active Encounters Encounter Location Date Provider Diagnosis [facility] [address] [place] [address] 02/05/2024 Prosper Henson Type 2 diabetes mellitus [...] Provider Name:Sylvia Hernandezclayton yu, 10/15/2024 02:45:00 PM, [address] [place] [address], [address], Procedure Notes * Category Sub-Category Detail Notes [...] as necessary. Patient chooses, no pharmaceutical tx (63856) Keratoma Treatment Parring or Cutting o f Benign Hyperkeratotic Lesion(s) 09750 ( >4 Lesions) - The Benign hyperkeratotic lesions, as described above were pared, and/or cut utilizing a sterile #15 blade, tissue nippers, and/or dremel Progress Notes * Kaitlin BROWN MDOB:[birth year] (79 yo F)Acc No.[id number]:02/05/2024 Progress Note Patient:?Kaitlin BROWN Provider:?Prosper Henson DPM :1945???Age:78 Y???Sex:Female D ate:02/05/2024 Address:[address] [place] [address] [facility] Pcp:Ricardo Breen, MD Subjective: * Chief Complaints: [...] as necessary. Patient chooses, no pharmaceutical tx (81717).?Keratoma Treatment:?Parring or Cutting of Benign Hyperkeratotic Lesion(s)?45704 ( >4 Lesions) - The Benign hyperkeratotic lesions, as described above were pared, and/or cut utilizing a sterile #15 blade, tissue nippers, and/or dremel.? * Procedure Codes:?05756 DEBRI DE NAIL, 6 OR MORE, Modifiers: XS , 07061 TRIM SKIN LESIONS, OVER 4, Modifiers: XS * Follow Up:?3 Months * Images: * The named appointment provid er may or may not be the originator of this progress note, and it is not deemed complete until electronically signed by the appointment provider. Sign off status: Pending * Provider:?Prosper Henson DPM Date:? 024 Generated for Jeny ball/Chance/Pallavi on:?09/16/2024 01:45 PM EST History and Physical Notes * [...]
--- OUTSIDE RECORDS SUMMARY | 2024-09-16 13:45 | XMS_ITS | Continuity of Care Document ---
Author Organization [facility] [address] [place] [address] Phone [phone] Social History Type Date Description Comments Sex [...]
--- OUTSIDE RECORDS SUMMARY | 2024-09-16 13:45 | XMS_ITS | Patient Health Record ---
[facility] Address [address] [place] [address] Care Team Providers Care Leasing Representative Name Role Phone Jamshid RAUSCH, Ricardo Primary Care Provider Unavailab Sylvia Kirkpatrick Unavailable [phone] Prosper Henson Unavailable [phone] Allergies Allergen (clinical drug ingredient) Drug/Non Drug [...] Status Risk Notes Problem Acquired hallux valgus (40774345) Hallux valgus (acquired), left foot (M20.12) Active confirmed Problem Polyneuropathy due to diabetes mellitus type I (966861472) Type 1 diabetes mellitus with diabetic polyneuropathy (E10.42) Active confirmed Problem Polyneuropathy due to type 2 diabetes mellitus (236431865) Type 2 diabetes mellitus with diabetic polyneuropathy (E11.42) Active confirmed Problem Localized, primary osteoarthritis of the ankle and/or foot (295407742) Primary osteoarthritis, left ankle and foot (M19.072) Active confirmed Problem Acquired hallux rigidus (4092523) Hallux rigidus, left foot (M20.22) Active confirmed Problem Non-pressure chronic ulcer of other part of left foot limited to breakdown of skin (L97.521) Active confirmed Problem Non-pressure chronic ulcer of other part of right foot limited to breakdown of skin (L97.511) Active confirmed Problem Polyneuropathy due to type 2 diabetes mellitus (803641785) Type 2 diabetes mellitus with diabetic polyneuropathy (E11.42) Active confirmed Problem Polyneuropathy due to diabetes mellitus type I (235134243) Type 1 diabetes mellitus with diabetic polyneuropathy (E10.42) Active confirmed Vital Signs Blood pressure diastolic 52 mm Hg 07/16/2024 Height 5 ft 4 in in 07/16/2024 Blood pressure systolic 141 mm Hg 07/16/2024 Weight 195 lbs 07/16/2024 BMI 33.47 kg/m2 07/16/2024 Procedures Procedure Date Ordered Date Performed Result Body Sit e 97913-RLHNTDH NAIL, 6 OR MORE 07/16/2024 N/A 27820-FFTT SKIN LESIONS, 2 TO 4 07/16/2024 N/A Encounters Encounter Location Date Provider Diagnosis [facility] [address] 11/06/2023 ProsperMason Type 2 diabetes mellitus with diabetic polyneuropathy E11.42 ; Tinea unguium B35.1 ; Pain in left foot M79.672 ; Primary osteoarthritis, left ankle and foot M19.072 ; Pain in left toe(s) M79.675 ; Pain in right toe(s) M79.674 ; Hallux rigidus, left foot M20.22 ; Hallux valgus (acquired), left foot M20.12 and Localized edema R60.0 [facility] [address] [address] 04/16/2024 Prosper Henson Type 2 diabetes mellitus with diabetic polyneuropathy E11.42 ; Tinea unguium B35.1 ; Pain in left foot M79.672 ; Primary osteoarthritis, left ankle and foot M19.072 ; Pain in left toe(s) M79.675 ; Pain in right toe(s) M79.674 ; Hallux rigidus, left foot M20.22 ; Hallux valgus (acquired), left foot M20.12 and Localized edema R60.[address] [address] 07/16/2024 Sylvia Nguyễn Type 2 diabetes mellitus with diabetic polyneuropathy E11.42 and Tinea unguium B35.[address] [address] 09/24/[address] [address] 10/08/[address] [address] 01/31/2024 [facility] Assessments Encounter Date Diagnosis (ICD Code) Assessment [...] X ray : Foot, left 3V 03/30/2020 72225-ZWKJSVL NAIL, 6 OR MORE 07/16/2024 14746-XTYNQUH NAIL, 1-5 05/05/2018 22537-YLKVMYA NAIL, 1-5 07/21/2018 75614-REDAAKS NAIL, 1-5 10/13/2018 01028, J0702- INJECT or DRAIN, JOINT/BUR SA 05/05/2018 86036-LLCA SKIN LESIONS, OVER 4 05/05/20 18 02215-WXEW SKIN LESIONS, OVER 4 07/21/20 18 49907-GQWO SKIN LESIONS, OVER 4 01/13/20 19 03936-HTMP SKIN LESIONS, OVER 4 04/13/20 19 47740-YRAT SKIN LESIONS, OVER 4 10/13/19 19 41337-MHRL SKIN LESIONS, OVER 4 12/06/19 21 01423-TPKB SKIN LESIONS, OVER 4 05/08/20 21 21600-BIFM SKIN LESIONS, OVER 4 10/18/19 22 75992-MIID SKIN LESIONS, OVER 4 08/01/20 20 53789-YUSA SKIN LESIONS, OVER 4 03/30/20 20 06718-DDVD SKIN LESIONS, OVER 4 07/13/20 19 82985-OJUS SKIN LESIONS, OVER 4 10/12/19 20 86545-TQCQ SKIN LESIONS, 2 TO 4 07/16/20 24 67904-VOCQ SKIN LESIONS, 2 TO 4 02/20/20 18 28137, R8182-CHWBR/INJECT, JOINT/BURSA 0 10/13/2018 P2241-SLTQDALN DYSTROPHIC NAILS ANY # W5001-ETRRGMCI DYSTROPHIC NAILS ANY # U5566-KJSCGBAV DYSTROPHIC NAILS ANY # P5174-FGCTPJMO DYSTROPHIC NAILS ANY # K1577-CGXXAHBK DYSTROPHIC NAILS ANY # H9490-MQCIJSLV DYSTROPHIC NAILS ANY # J9235-YOZUJLVV DYSTROPHIC NAILS ANY # C8839-ZHDDNPOC DYSTROPHIC NAILS ANY # Z7271-YEGVLKJA DYSTROPHIC NAILS ANY # 66948- Nail Unit Biopsy 02/19/2018 Next Appt Details Provider Name:Sylvia Zarate aimee, 10/15/2024 02:45:00 PM, [address] [facility], [place], [address], Insurance Providers Payer Name Payer Address Payer Phone Subscriber Number Group Number Insured Name Patient Relationship to Insured Coverage Start Date Coverage End Date Medicare National [employer] [address] [facility] [place] [address] [phone] [id number] Kaitlin Ortiz Self - patient is the insured [address] [place] [address] [address] [place], [place] [id number] [phone] [id number] Kaitlin Ortiz Self - patient is the [...]
--- OUTSIDE RECORDS SUMMARY | 2024-09-16 13:45 | XMS_ITS ---
Author [facility] Address [address] [facility] [place] [address] Care Team Providers Care Fringing Machine Operator Name Role Phone Ricardo Breen MD Primary Care Provider UnavailSylvia Iglesias Unavailable [phone] Allergies Allergen (clinical drug ingredient) Drug/Non Drug [...] Polyneuropathy due to type 2 diabetes mellitus (404966599) Type 2 diabetes mellitus with diabetic polyneuropathy (E11.42) Active confirmed Problem Polyneuropathy due to diabetes mellitus type I (940158850) Type 1 diabetes mellitus with diabetic polyneuropathy (E10.42) Active confirmed Vital Signs Height 5 ft 4 in in 07/16/2024 Weight 195 lbs 07/16/2024 BMI 33.47 kg/m2 07/16/2024 Blood pressure systolic 141 mm Hg 07/16/20 24 Blood pressure diastolic 52 mm Hg 024 Procedures Procedure Date Ordered Date Performed Result Body Sit e 10585-OABJPIB NAIL, 6 OR MORE 07/16/2024 N/A 09442-LJRF SKIN LESIONS, 2 TO 4 07/16/2024 N/A Encounters Encounter Location Date Provider Diagnosis [facility] [address] [address] 07/16/2024 Sylvia Hernandezaker Type 2 diabetes mellitus with diabetic polyneuropathy E11.42 and Tinea unguium B35.1 Assessments Encounter Date Diagnosis (ICD Code) Assessment Notes Treatment Notes Treatment Clinical Notes Section Notes 07/16/2024 Type 2 diabetes mellitus with diabetic polyneuropathy (ICD-10 - E11.42) 07/16/2024 Tinea unguium (ICD-10 - B35.1) Plan Of Treatment Pending Test Test Name Order Date 79021-FGKETPG NAIL, 6 OR MORE 07/16/2024 50439-TIGK SKIN LESIONS, 2 TO 4 07/16/20 24 Next Appt Details Follow Up: prn, Reason: Provider Name:Sylvia Zarate aimee, 10/15/2024 02:45:00 PM, [address] [place], [address], Procedure Notes * Category Sub-Category Detail Notes [...] use of a nail nipper and/or dremel-type tool grinder set up operator gear, to a more viable healthy nail plate or bed tissue 6-10. Silver nitrate used for any petechial bleeding as necessary. Definitive antifungal treatment options have been reviewed and discussed with the patient. The patient chooses, no pharmaceutical tx - 80043 Keratoma Treatment Parring or Cutting o f Benign Hyperkeratotic Lesion(s) (-56) 2-4 Lesions - The Benign hyperkeratotic lesions, as described in exam, were pared, and/or cut utilizing a sterile 15 blade, tissue nippers, and/or dremel - 36460 Progress Notes * Kaitlin BROWN MDOB:[birth year] (79 yo F)Acc No.[id number]:07/16/2024 Progress Note Patient:?Kaitlin Brown Provider:?Sylvia Nguyễn DPM :1945???Age:79 Y???Sex:Female D ate:07/16/2024 Address:[facility] [place] Pcp:Ricardo Breen MD Subjective: * Chief Complaints: [...] use of a nail nipper and/or dremel-type tool grinder set up operator gear, to a more viable healthy nail plate or bed tissue 6-10. Silver nitrate used for any petechial bleeding as necessary. Definitive antifungal treatment options have been reviewed and discussed with the patient. The patient chooses, no pharmaceutical tx - 74602.?Keratoma Treatment:?Parring or Cutting of Benign Hyperkeratotic Lesion(s)?(-56) 2-4 Lesions - The Benign hyperkeratotic lesions, as described in exam, were pared, and/or cut utilizing a sterile 15 blade, tissue nippers, and/or dremel - 13516.? * Procedure Codes:?82943 DEBRI DE NAIL, 6 OR MORE, Modifiers: XS 28156 TRIM SKIN LESIONS, 2 TO 4, Modifiers: XS * Follow Up:?prn * Images: * Sign off status: Completed true * Provider:?Sylvia Nguyễn DPM Date:?1 09/15/2023 Generated for Jeny ball/Chance/eTransmitting on:?09/16/2024 01:44 PM EST History and Physical Notes * [...]
--- OUTSIDE RECORDS SUMMARY | 2024-09-16 13:45 | XMS_ITS ---
Author Organization [facility] Address [address] [facility] [address] Care Team Providers Care Target Worker Name Role Phone Ricardo Breen MD Primary Care Provider Unavailab Sylvia Kirkpatrick Unavailable [phone] Prosper Henson Unavailable [phone] Allergies Allergen (clinical drug ingredient) Drug/Non Drug [...] 024 Encounters Encounter Location Date Provider Diagnosis [facility] [place] [address] [place] [address] 04/16/2024 Prosper Henson Type 2 diabetes mellitus [...] Reason: Provider Name:Sylvia yu, 10/15/2024 02:45:00 PM, [address] [place] [address], [address], Procedure Notes * Category Sub-Category Detail Notes [...] as necessary. Patient chooses, no pharmaceutical tx (65004) Keratoma Treatment Parring or Cutting o f Benign Hyperkeratotic Lesion(s) 80285 ( >4 Lesions) - The Benign hyperkeratotic lesions, as described above were pared, and/or cut utilizing a sterile #15 blade, tissue nippers, and/or dremel Progress Notes * Kaitlin BROWN MDOB:[birth year] (78 yo F)Acc No.[id number]:04/16/2024 Progress Note Patient:?Kaitlin Brown Noel Provider:?Prosper Henson DPM :1945???Age:78 Y???Sex:Female D ate:04/16/2024 Address:[address] [place], [place] Pcp:Ricardo Breen MD Subjective: * Chief Complaints: [...] as necessary. Patient chooses, no pharmaceutical tx (80412).?Keratoma Treatment:?Parring or Cutting of Benign Hyperkeratotic Lesion(s)?69132 ( >4 Lesions) - The Benign hyperkeratotic lesions, as described above were pared, and/or cut utilizing a sterile #15 blade, tissue nippers, and/or dremel.? * Procedure Codes:?55965 DEBRI DE NAIL, 6 OR MORE, Modifiers: XS 22448 TRIM SKIN LESIONS, OVER 4, Modifiers: XS [...]
--- OUTSIDE RECORDS SUMMARY | 2024-09-16 13:46 | XMS_ITS | Clinical Summary ---
Author Organization Unknown Care Team Providers Care Survey Research Associate Name Role Phone MELANIA RAUSCH, ELLEN Unavailable Unavailable TOMY MC, JOSE Unavailable Unavailable Payers Payer Name Policy Type Policy Number Effective Date Expira tion Date MEDICARE - NGS MA/RI - PDGM [id number] Problems Condition Name Condition Details Condition Category Status Onset Date Resolution Date Last Treatment Date Treating Clinician Comments ENCNTR FOR SURGICAL AFTCR FOLLOWING SURGERY ON THE CIRC SYS Active 02-04 00:00: 00 TYPE 2 DIABETES MELLITUS WITHOUT COMPLICATION S Active 02-04 00:00: 00 PAROXYSMAL ATRIAL FIBRILLATION Active 02-04 00:00: 00 KAI WHAKARURUHAU (CURRENT) USE OF INSULIN Active 02-04 00:00: 00 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 Active 02-04 00:00: 00 MALIGNANT NEOPLASM OF UNSP SITE OF UNSPECIFIED FEMALE BREAST Active 02-04 00:00: 00 ANEMIA IN NEOPLASTIC DISEASE Active 02-04 00:00: 00 ATHSCL HEART DISEASE OF [place] CORONARY ARTERY W/O ANG PCTRS Active 02-04 [...] 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 Active 02-04 00:00: 00 PRISON (CURRENT) USE OF ASPIRIN Active 02-04 00:00: 00 KAI WHAKARURUHAU (CURRENT) USE OF ORAL HYPOGLYCEMIC DRUGS Active [...] 2-17 00:00: 00 01-20 23:59 :00 No [id number] 1 tablet BEDTIME 1 tablet BEDTIME (route: oral) Med Classific ation: Cardiovas cular Therapy Agents pantoprazol e 40 mg tablet,sonia yed release 2- 00:00: 00 01-23 00:00 :00 No [id number] 1 tablet DAILY 1 tablet DAILY (route: oral) Med Classific ation: Gastroint estinal Therapy Agents nitrofurant oin monohydrate /macrocryst als 100 mg capsule 2-13 00:00: 00 11-01 23:59 :00 No [id number] 1 capsule TWICE A DAY FOR UTI FOR 10 DAYS 1 capsule TWICE A DAY FOR UTI FOR 10 DAYS (route: oral) Med Classific ation: Genitouri nary Therapy metformin 1,000 mg tablet - 00:00: 00 01-20 23:59 :00 No [id number] 1 tablet TWICE A DAY DIRECTED 1 tablet TWICE A DAY DIRECTED (route: oral) Med Classific ation: Endocrine amlodipine 10 mg tablet 11-15 00:00: 00 01-20 23:59 :00 No [id number] 1 tablet DAILY 1 tablet DAILY (route: oral) Med Classific ation: Cardiovas cular Therapy Agents ascorbic acid (vitamin C) 1,000 mg capsule 11-15 00:00: 00 01-20 23:59 :00 No [id number] 1 capsule DAILY 1 capsule DAILY (route: oral) Med Classific ation: Electroly te Balance-N utritiona l Products Aspirin Childrens 81 mg chewable tablet 11-15 00:00: 00 01-20 23:59 :00 No [id number] 1 tablet DAILY 1 tablet DAILY (route: oral) Med Classific ation: Hematolog ical Agents carvedilol 25 mg tablet - 00:00: 00 01-20 23:59 :00 No [id number] 1 tablet 2 TIMES DAILY 1 tablet 2 TIMES DAILY (route: oral) Med Classific ation: Cardiovas cular Therapy Agents citalopram 20 mg tablet - 00:00: 00 01-20 23:59 :00 No [id number] 1 tablet DAILY 1 tablet DAILY (route: oral) Med Classific ation: Central Nervous System Agents cyclobenzap rine 5 mg tablet 11-15 00:00: 00 01-20 23:59 :00 No [id number] 1 tablet BEDTIME 1 tablet BEDTIME (route: oral) Med Classific ation: Locomotor System duloxetine 60 mg capsule,del ayed release 11-15 00:00: 00 01-20 23:59 :00 No [id number] 1 capsule DAILY 1 capsule DAILY (route: oral) Med Classific ation: Central Nervous System Agents famotidine 40 mg tablet 11-15 00:00: 00 01-20 23:59 :00 No [id number] 1 tablet BEDTIME 1 tablet BEDTIME (route: oral) Med Classific ation: Gastroint estinal Therapy Agents ferrous sulfate 325 mg (65 mg iron) tablet 11-15 00:00: 00 01-20 23:59 :00 No [id number] 1 tablet DAILY 1 tablet DAILY (route: oral) Med Classific ation: Electroly te Balance-N utritiona l Products furosemide 40 mg tablet 11-15 00:00: 00 12-24 23:59 :00 No [id number] 1 tablet DAILY 1 tablet DAILY (route: oral) Med Classific ation: Cardiovas cular Therapy Agents hydralazine 25 mg tablet 11-15 00:00: 00 12-24 23:59 :00 No [id number] 1 tablet 3 TIMES DAILY 1 tablet 3 TIMES DAILY (route: oral) Med Classific ation: Cardiovas cular Therapy Agents Imbruvica 420 mg tablet 11-15 00:00: 00 01-20 23:59 :00 No [id number] 1 tablet DAILY 1 tablet DAILY (route: oral) Med Classific ation: Antineopl astics Imbruvica 420 mg tablet 11-15 00:00: 00 12-24 00:00 :00 No [id number] 1 tablet DAILY 1 tablet DAILY (route: oral) Med Classific ation: Antineopl astics Januvia 100 mg tablet 11-15 00:00: 00 12-24 23:59 :00 No [id number] 1 tablet DAILY 1 tablet DAILY (route: oral) Med Classific ation: Endocrine pregabalin 150 mg capsule 09 00:00: 00 01-20 23:59 :00 No [id number] 1 capsule 2 TIMES DAILY 1 capsule 2 TIMES DAILY (route: oral) Med Classific ation: Central Nervous System Agents Senna Lax 8.6 mg tablet 11-15 00:00: 00 01-20 23:59 :00 No [id number] 2 tablet BEDTIME 2 tablet BEDTIME (route: oral) Med Classific ation: Gastroint estinal Therapy Agents solifenacin 5 mg tablet 11-15 00:00: 00 01-23 00:00 :00 No [id number] 1 tablet DAILY 1 tablet DAILY (route: oral) Med Classific ation: Genitouri nary Therapy spironolact one 25 mg tablet 11-15 00:00: 00 01-20 23:59 :00 No [id number] 1 tablet DAILY 1 tablet DAILY (route: oral) Med Classific ation: Cardiovas cular Therapy Agents sulindac 150 mg tablet 11-15 00:00: 00 01-23 00:00 :00 No [id number] 1 tablet 2 TIMES DAILY 1 tablet 2 TIMES DAILY (route: oral) Med Classific ation: Analgesic , Anti-infl ammatory or Antipyret ic nitrofurant oin macrocrysta l 100 mg capsule 3-24 00:00: 00 12-24 23:59 :00 No [id number] 1 capsule 2 TIMES DAILY 1 capsule 2 TIMES DAILY (route: oral) Med Classific ation: Genitouri nary Therapy Macrobid 100 mg capsule 4-10 00:00: 00 12-24 23:59 :00 No [id number] 100 mg 2 TIMES DAILY 100 mg 2 TIMES DAILY (route: oral) Med Classific ation: Genitouri nary Therapy cefpodoxime 100 mg tablet 4-16 00:00: 00 12-25 23:59 :00 No [id number] 1 tablet 2 TIMES DAILY 1 tablet 2 TIMES DAILY (route: oral) Med Classific ation: Anti-Infe ctive Agents Citracal-D3 Maximum Plus 325 mg-12.5 mcg-2.75 mg tablet 12-24 00:00: 00 01-20 23:59 :00 No [id number] 1 tablet EVERY AM 1 tablet EVERY AM (route: oral) Med Classific ation: Electroly te Balance-N utritiona l Products magnesium oxide 500 mg capsule 12-24 00:00: 00 01-23 00:00 :00 No [id number] 1 capsule EVERY PM 1 capsule EVERY PM (route: oral) Med Classific ation: Electroly te Balance-N utritiona l Products Multiple Vitamins tablet 12-24 00:00: 00 01-20 23:59 :00 No [id number] 1 tablet EVERY AM 1 tablet EVERY AM (route: oral) Med Classific ation: Electroly te Balance-N utritiona l Products acetaminoph en 325 mg tablet 01-23 00:00: 00 01-20 23:59 :00 No [id number] 2 tablet EVERY 6 HOURS 2 tablet EVERY 6 HOURS (route: oral) Med Classific ation: Analgesic , Anti-infl ammatory or Antipyret ic coenzyme Q10 100 mg capsule 01-23 00:00: 00 01-20 23:59 :00 No [id number] 1 capsule BEDTIME 1 capsule BEDTIME (route: oral) Med Classific ation: Alternati ve Therapy docusate sodium 100 mg capsule 01-22 00:00: 00 01-20 23:59 :00 No [id number] 1 capsule 2 TIMES DAILY 1 capsule 2 TIMES DAILY (route: oral) Med Classific ation: Gastroint estinal Therapy Agents enoxaparin 40 mg/0.4 mL subcutaneou s syringe 01-23 00:00: 00 02-07 23:59 :00 No [id number] 0.4 mL DAILY 0.4 mL DAILY (route: subcutaneo us) Med Classific ation: Hematolog ical Agents furosemide 20 mg tablet 01-22 00:00: 00 01-20 23:59 :00 No [id number] 1 tablet DAILY 1 tablet DAILY (route: oral) Med Classific ation: Cardiovas cular Therapy Agents magnesium oxide 400 mg (241.3 mg magnesium) tablet 01-23 00:00: 00 01-20 23:59 :00 No [id number] 1 tablet BEDTIME 1 tablet BEDTIME (route: oral) Med Classific ation: Electroly te Balance-N utritiona l Products omeprazole 20 mg tablet,sonia yed release 01-22 00:00: 00 01-20 23:59 :00 No [id number] 1 tablet DAILY 1 tablet DAILY (route: oral) Med Classific ation: Gastroint estinal Therapy Agents oxycodone 5 mg tablet 01-22 00:00: 00 01-20 23:59 :00 No [id number] 1 tablet EVERY 4 HOURS 1 tablet EVERY 4 HOURS (route: oral) Med Classific ation: Analgesic , Anti-infl ammatory or Antipyret ic oxycodone ER 10 mg tablet,vanda h resistant,e xtended release 12 hr 01-23 00:00: 00 01-20 23:59 :00 No [id number] 1 tablet EVERY 12 HOURS 1 tablet EVERY 12 HOURS (route: oral) Med Classific ation: Analgesic , Anti-infl ammatory or Antipyret ic polyethylen e glycol 3350 17 gram/dose oral powder 01-22 00:00: 00 01-20 23:59 :00 No [id number] 17 gram DAILY 17 gram DAILY (route: oral) Med Classific ation: Gastroint estinal Therapy Agents fluconazole 150 mg tablet 01-28 00:00: 00 01-20 23:59 :00 No [id number] 1 tablet DIRECTED 1 tablet DIRECTED (route: oral) Med Classific ation: Anti-Infe ctive Agents fluconazole 150 mg tablet 01-16 00:00: 00 02-04 23:59 :00 No [id number] Per instruc tions EVERY 3 DAYS FOR YEAST INFECTION FOR 6 DAYS Per instructio ns EVERY 3 DAYS FOR YEAST INFECTION FOR 6 DAYS (route: oral) Med Classific ation: Anti-Infe ctive Agents duloxetine 60 mg capsule,del ayed release 01-08 00:00: 00 Yes [id number] Per instruc tions EVERY DAY Per instructio ns EVERY DAY (route: oral) Med Classific ation: Central Nervous System Agents pantoprazol e 40 mg tablet,sonia yed release 01-07 00:00: 00 Yes [id number] Per instruc tions TWICE A DAY Per instructio ns TWICE A DAY (route: oral) Med Classific ation: Gastroint estinal Therapy Agents amlodipine 10 mg tablet 01-05 00:00: 00 02-04 23:59 :00 No [id number] Per instruc tions EVERY DAY Per instructio ns EVERY DAY (route: oral) Med Classific ation: Cardiovas cular Therapy Agents metformin 1,000 mg tablet 01-04 00:00: 00 02-04 23:59 :00 No [id number] Per instruc tions TWICE A DAY DIRECTED Per instructio ns TWICE A DAY DIRECTED (route: oral) Med Classific ation: Endocrine pregabalin 150 mg capsule 12-23 00:00: 00 Yes [id number] Per instruc tions 2 (TWO) TIMES A DAY Per instructio ns 2 (TWO) TIMES A DAY (route: oral) Med Classific ation: Central Nervous System Agents acetaminoph en 325 mg tablet 02-04 00:00: 00 Yes [id number] 1 tablet EVERY 6 HOURS 1 tablet EVERY 6 HOURS (route: oral) Med Classific ation: Analgesic , Anti-infl ammatory or Antipyret ic amiodarone 200 mg tablet 02-04 00:00: 00 02-12 23:59 :00 No [id number] 1 tablet 2 TIMES DAILY 1 tablet 2 TIMES DAILY (route: oral) Med Classific ation: Cardiovas cular Therapy Agents amlodipine 5 mg tablet 02-04 00:00: 00 Yes [id number] 1 tablet DAILY 1 tablet DAILY (route: oral) Med Classific ation: Cardiovas cular Therapy Agents ascorbic acid (vitamin C) 500 mg tablet 02-04 00:00: 00 Yes [id number] 1 tablet 2 TIMES DAILY 1 tablet 2 TIMES DAILY (route: oral) Med Classific ation: Electroly te Balance-N utritiona l Products aspirin 81 mg tablet,sonia yed release 02-04 00:00: 00 Yes [id number] 1 tablet DAILY 1 tablet DAILY (route: oral) Med Classific ation: Hematolog ical Agents atorvastati n 80 mg tablet 02-04 00:00: 00 Yes [id number] 1 tablet DIRECTED 1 tablet DIRECTED (route: oral) Med Classific ation: Cardiovas cular Therapy Agents cholecalcif tiera (vitamin D3) 10 mcg (400 unit) capsule 02-04 00:00: 00 Yes [id number] 1 capsule DAILY 1 capsule DAILY (route: oral) Med Classific ation: Electroly te Balance-N utritiona l Products citalopram 20 mg tablet 02-04 00:00: 00 Yes [id number] 1 tablet DAILY 1 tablet DAILY (route: oral) Med Classific ation: Central Nervous System Agents furosemide 40 mg tablet 02-04 00:00: 00 02-12 23:59 :00 No [id number] 1 tablet 2 TIMES DAILY 1 tablet 2 TIMES DAILY (route: oral) Med Classific ation: Cardiovas cular Therapy Agents Humalog KwikPen (U-100) Insulin 100 unit/mL subcutaneou s 02-04 00:00: 00 Yes [id number] Per instruc tions DIRECTED Per instructio ns DIRECTED (route: subcutaneo us) Med Classific ation: Endocrine Imbruvica 140 mg tablet 02-04 00:00: 00 Yes [id number] 1 tablet DAILY 1 tablet DAILY (route: oral) Med Classific ation: Antineopl astics insulin glargine (U-100) 100 unit/mL (3 mL) subcutaneou s pen 02-04 00:00: 00 Yes [id number] 19 unit DIRECTED 19 unit DIRECTED (route: subcutaneo us) Med Classific ation: Endocrine insulin lispro (U-100) 100 unit/mL subcutaneou s pen 02-04 00:00: 00 Yes [id number] 8 unit DIRECTED 8 unit DIRECTED (route: subcutaneo us) Med Classific ation: Endocrine metformin 500 mg tablet 02-04 00:00: 00 Yes [id number] 1 tablet 2 TIMES DAILY 1 tablet 2 TIMES DAILY (route: oral) Med Classific ation: Endocrine metoprolol succinate ER 25 mg tablet,exte nded release 24 hr 02-04 00:00: 00 Yes [id number] Per instruc tions DAILY Per instructio ns DAILY (route: oral) Med Classific ation: Cardiovas cular Therapy Agents Aldactone 25 mg tablet 02-16 00:00: 00 Yes [id number] 25 mg DAILY 25 mg DAILY (route: [...] DRY CLEAN GAUZE, LEAVE OPEN TO AIR. PATIENT/GEAR GRINDER WILL PERFORM THIS TWICE DAILY BETWEEN NURSING [...] DRY CLEAN GAUZE, LEAVE OPEN TO AIR. PATIENT/GEAR GRINDER WILL PERFORM THIS TWICE DAILY BETWEEN NURSING [...] BLOCKAGE/LEAKAGE, HEAVY SEDIMENT. 1 - 3 PRN RESIDENTIAL VISITS FOR CATHETER CHANGE(S) AND/OR TROUBLESHOOTING. [code = SKILLED NURSE TO INSTRUCT PATIENT/CAREGIVER ON CARE AND MANAGEMENT OF SUPRAPUBIC CATHETER. SKILLED NURSE FOR SUPRAPUBIC CATHETER INSERTION/MAINTENANCE UTILIZING 18 FR 10 ML BALLOON, CHANGE Q 4 WEEKS AND PRN FOR LEAKING OR MALFUNCTIONING. IRRIGATE SUPRAPUBIC CATHETER WITH 30-60CC NORMAL SALINE PRN BLOCKAGE/LEAKAGE, HEAVY SEDIMENT. 1 - 3 PRN RESIDENTIAL VISITS FOR CATHETER CHANGE(S) AND/OR TROUBLESHOOTING.] Goal 2024-03-04 Patient Goal - TO FEEL BOBBY R Goal Provider Goal - A PLAN OF CARE WILL BE ESTABLISHED THAT MEETS PATIENT'S RESIDENTIAL NEEDS AND INCLUDES PATIENT GOAL FOR HOME [...] 00:00:00 Outpatient JOSE ROSA [facility] [id number] 2024-03-04 00:00:00 DISCHARGE TO HOME OR SELF CARE INDEPENDEN T IN THE COMMUNITY NO LONGER HOMEBOUND ( ONLY) 47.62
--- OUTSIDE RECORDS SUMMARY | 2024-09-16 13:46 | XMS_ITS | Clinical Summary ---
Author Organization Unknown Care Team Providers Care Pond Scaler Name Role Phone MELANIA RAUSCH, ELLEN Unavailable Unavailable TOMY MC, JOSE Unavailable Unavailable Payers Payer Name Policy Type Policy Number Effective Date Expira tion Date MEDICARE - NGS MA/RI - PDGM [id number] Problems Condition Name Condition Details Condition Category Status Onset Date Resolution Date Last Treatment Date Treating Clinician Comments ENCNTR FOR SURGICAL AFTCR FOLLOWING SURGERY ON THE CIRC SYS Active 02-04 00:00: 00 TYPE 2 DIABETES MELLITUS WITHOUT COMPLICATION S Active 02-04 00:00: 00 PAROXYSMAL ATRIAL FIBRILLATION Active 02-04 00:00: 00 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 Active 02-04 00:00: 00 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 Active 02-04 00:00: 00 MALIGNANT NEOPLASM OF UNSP SITE OF UNSPECIFIED FEMALE BREAST Active 02-04 00:00: 00 ANEMIA IN NEOPLASTIC DISEASE Active 02-04 00:00: 00 ATHSCL HEART DISEASE OF [place] CORONARY ARTERY W/O ANG PCTRS Active 02-04 [...] USE OF ASPIRIN Active 02-04 00:00: 00 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 HYPOGLYCEMIC DRUGS Active [...] 2-17 00:00: 00 01-20 23:59 :00 No [id number] 1 tablet BEDTIME 1 tablet BEDTIME (route: oral) Med Classific ation: Cardiovas cular Therapy Agents pantoprazol e 40 mg tablet,sonia yed release 2- 00:00: 00 01-23 00:00 :00 No [id number] 1 tablet DAILY 1 tablet DAILY (route: oral) Med Classific ation: Gastroint estinal Therapy Agents nitrofurant oin monohydrate /macrocryst als 100 mg capsule 2-13 00:00: 00 11-01 23:59 :00 No [id number] 1 capsule TWICE A DAY FOR UTI FOR 10 DAYS 1 capsule TWICE A DAY FOR UTI FOR 10 DAYS (route: oral) Med Classific ation: Genitouri nary Therapy metformin 1,000 mg tablet - 00:00: 00 01-20 23:59 :00 No [id number] 1 tablet TWICE A DAY DIRECTED 1 tablet TWICE A DAY DIRECTED (route: oral) Med Classific ation: Endocrine amlodipine 10 mg tablet 11-15 00:00: 00 01-20 23:59 :00 No [id number] 1 tablet DAILY 1 tablet DAILY (route: oral) Med Classific ation: Cardiovas cular Therapy Agents ascorbic acid (vitamin C) 1,000 mg capsule 11-15 00:00: 00 01-20 23:59 :00 No [id number] 1 capsule DAILY 1 capsule DAILY (route: oral) Med Classific ation: Electroly te Balance-N utritiona l Products Aspirin Childrens 81 mg chewable tablet 11-15 00:00: 00 01-20 23:59 :00 No [id number] 1 tablet DAILY 1 tablet DAILY (route: oral) Med Classific ation: Hematolog ical Agents carvedilol 25 mg tablet - 00:00: 00 01-20 23:59 :00 No [id number] 1 tablet 2 TIMES DAILY 1 tablet 2 TIMES DAILY (route: oral) Med Classific ation: Cardiovas cular Therapy Agents citalopram 20 mg tablet - 00:00: 00 01-20 23:59 :00 No [id number] 1 tablet DAILY 1 tablet DAILY (route: oral) Med Classific ation: Central Nervous System Agents cyclobenzap rine 5 mg tablet 11-15 00:00: 00 01-20 23:59 :00 No [id number] 1 tablet BEDTIME 1 tablet BEDTIME (route: oral) Med Classific ation: Locomotor System duloxetine 60 mg capsule,del ayed release 11-15 00:00: 00 01-20 23:59 :00 No [id number] 1 capsule DAILY 1 capsule DAILY (route: oral) Med Classific ation: Central Nervous System Agents famotidine 40 mg tablet 11-15 00:00: 00 01-20 23:59 :00 No [id number] 1 tablet BEDTIME 1 tablet BEDTIME (route: oral) Med Classific ation: Gastroint estinal Therapy Agents ferrous sulfate 325 mg (65 mg iron) tablet 11-15 00:00: 00 01-20 23:59 :00 No [id number] 1 tablet DAILY 1 tablet DAILY (route: oral) Med Classific ation: Electroly te Balance-N utritiona l Products furosemide 40 mg tablet 11-15 00:00: 00 12-24 23:59 :00 No [id number] 1 tablet DAILY 1 tablet DAILY (route: oral) Med Classific ation: Cardiovas cular Therapy Agents hydralazine 25 mg tablet 11-15 00:00: 00 12-24 23:59 :00 No [id number] 1 tablet 3 TIMES DAILY 1 tablet 3 TIMES DAILY (route: oral) Med Classific ation: Cardiovas cular Therapy Agents Imbruvica 420 mg tablet 11-15 00:00: 00 01-20 23:59 :00 No [id number] 1 tablet DAILY 1 tablet DAILY (route: oral) Med Classific ation: Antineopl astics Imbruvica 420 mg tablet 11-15 00:00: 00 12-24 00:00 :00 No [id number] 1 tablet DAILY 1 tablet DAILY (route: oral) Med Classific ation: Antineopl astics Januvia 100 mg tablet 11-15 00:00: 00 12-24 23:59 :00 No [id number] 1 tablet DAILY 1 tablet DAILY (route: oral) Med Classific ation: Endocrine pregabalin 150 mg capsule 09 00:00: 00 01-20 23:59 :00 No [id number] 1 capsule 2 TIMES DAILY 1 capsule 2 TIMES DAILY (route: oral) Med Classific ation: Central Nervous System Agents Senna Lax 8.6 mg tablet 11-15 00:00: 00 01-20 23:59 :00 No [id number] 2 tablet BEDTIME 2 tablet BEDTIME (route: oral) Med Classific ation: Gastroint estinal Therapy Agents solifenacin 5 mg tablet 11-15 00:00: 00 01-23 00:00 :00 No [id number] 1 tablet DAILY 1 tablet DAILY (route: oral) Med Classific ation: Genitouri nary Therapy spironolact one 25 mg tablet 11-15 00:00: 00 01-20 23:59 :00 No [id number] 1 tablet DAILY 1 tablet DAILY (route: oral) Med Classific ation: Cardiovas cular Therapy Agents sulindac 150 mg tablet 11-15 00:00: 00 01-23 00:00 :00 No [id number] 1 tablet 2 TIMES DAILY 1 tablet 2 TIMES DAILY (route: oral) Med Classific ation: Analgesic , Anti-infl ammatory or Antipyret ic nitrofurant oin macrocrysta l 100 mg capsule 3-24 00:00: 00 12-24 23:59 :00 No [id number] 1 capsule 2 TIMES DAILY 1 capsule 2 TIMES DAILY (route: oral) Med Classific ation: Genitouri nary Therapy Macrobid 100 mg capsule 4-10 00:00: 00 12-24 23:59 :00 No [id number] 100 mg 2 TIMES DAILY 100 mg 2 TIMES DAILY (route: oral) Med Classific ation: Genitouri nary Therapy cefpodoxime 100 mg tablet 4-16 00:00: 00 12-25 23:59 :00 No [id number] 1 tablet 2 TIMES DAILY 1 tablet 2 TIMES DAILY (route: oral) Med Classific ation: Anti-Infe ctive Agents Citracal-D3 Maximum Plus 325 mg-12.5 mcg-2.75 mg tablet 12-24 00:00: 00 01-20 23:59 :00 No [id number] 1 tablet EVERY AM 1 tablet EVERY AM (route: oral) Med Classific ation: Electroly te Balance-N utritiona l Products magnesium oxide 500 mg capsule 12-24 00:00: 00 01-23 00:00 :00 No [id number] 1 capsule EVERY PM 1 capsule EVERY PM (route: oral) Med Classific ation: Electroly te Balance-N utritiona l Products Multiple Vitamins tablet 12-24 00:00: 00 01-20 23:59 :00 No [id number] 1 tablet EVERY AM 1 tablet EVERY AM (route: oral) Med Classific ation: Electroly te Balance-N utritiona l Products acetaminoph en 325 mg tablet 01-23 00:00: 00 01-20 23:59 :00 No [id number] 2 tablet EVERY 6 HOURS 2 tablet EVERY 6 HOURS (route: oral) Med Classific ation: Analgesic , Anti-infl ammatory or Antipyret ic coenzyme Q10 100 mg capsule 01-23 00:00: 00 01-20 23:59 :00 No [id number] 1 capsule BEDTIME 1 capsule BEDTIME (route: oral) Med Classific ation: Alternati ve Therapy docusate sodium 100 mg capsule 01-22 00:00: 00 01-20 23:59 :00 No [id number] 1 capsule 2 TIMES DAILY 1 capsule 2 TIMES DAILY (route: oral) Med Classific ation: Gastroint estinal Therapy Agents enoxaparin 40 mg/0.4 mL subcutaneou s syringe 01-23 00:00: 00 02-07 23:59 :00 No [id number] 0.4 mL DAILY 0.4 mL DAILY (route: subcutaneo us) Med Classific ation: Hematolog ical Agents furosemide 20 mg tablet 01-22 00:00: 00 01-20 23:59 :00 No [id number] 1 tablet DAILY 1 tablet DAILY (route: oral) Med Classific ation: Cardiovas cular Therapy Agents magnesium oxide 400 mg (241.3 mg magnesium) tablet 01-23 00:00: 00 01-20 23:59 :00 No [id number] 1 tablet BEDTIME 1 tablet BEDTIME (route: oral) Med Classific ation: Electroly te Balance-N utritiona l Products omeprazole 20 mg tablet,sonia yed release 01-22 00:00: 00 01-20 23:59 :00 No [id number] 1 tablet DAILY 1 tablet DAILY (route: oral) Med Classific ation: Gastroint estinal Therapy Agents oxycodone 5 mg tablet 01-22 00:00: 00 01-20 23:59 :00 No [id number] 1 tablet EVERY 4 HOURS 1 tablet EVERY 4 HOURS (route: oral) Med Classific ation: Analgesic , Anti-infl ammatory or Antipyret ic oxycodone ER 10 mg tablet,vanda h resistant,e xtended release 12 hr 01-23 00:00: 00 01-20 23:59 :00 No [id number] 1 tablet EVERY 12 HOURS 1 tablet EVERY 12 HOURS (route: oral) Med Classific ation: Analgesic , Anti-infl ammatory or Antipyret ic polyethylen e glycol 3350 17 gram/dose oral powder 01-22 00:00: 00 01-20 23:59 :00 No [id number] 17 gram DAILY 17 gram DAILY (route: oral) Med Classific ation: Gastroint estinal Therapy Agents fluconazole 150 mg tablet 01-28 00:00: 00 01-20 23:59 :00 No [id number] 1 tablet DIRECTED 1 tablet DIRECTED (route: oral) Med Classific ation: Anti-Infe ctive Agents fluconazole 150 mg tablet 01-16 00:00: 00 02-04 23:59 :00 No [id number] Per instruc tions EVERY 3 DAYS FOR YEAST INFECTION FOR 6 DAYS Per instructio ns EVERY 3 DAYS FOR YEAST INFECTION FOR 6 DAYS (route: oral) Med Classific ation: Anti-Infe ctive Agents duloxetine 60 mg capsule,del ayed release 01-08 00:00: 00 Yes [id number] Per instruc tions EVERY DAY Per instructio ns EVERY DAY (route: oral) Med Classific ation: Central Nervous System Agents pantoprazol e 40 mg tablet,sonia yed release 01-07 00:00: 00 Yes [id number] Per instruc tions TWICE A DAY Per instructio ns TWICE A DAY (route: oral) Med Classific ation: Gastroint estinal Therapy Agents amlodipine 10 mg tablet 01-05 00:00: 00 02-04 23:59 :00 No [id number] Per instruc tions EVERY DAY Per instructio ns EVERY DAY (route: oral) Med Classific ation: Cardiovas cular Therapy Agents metformin 1,000 mg tablet 01-04 00:00: 00 02-04 23:59 :00 No [id number] Per instruc tions TWICE A DAY DIRECTED Per instructio ns TWICE A DAY DIRECTED (route: oral) Med Classific ation: Endocrine pregabalin 150 mg capsule 12-23 00:00: 00 Yes [id number] Per instruc tions 2 (TWO) TIMES A DAY Per instructio ns 2 (TWO) TIMES A DAY (route: oral) Med Classific ation: Central Nervous System Agents acetaminoph en 325 mg tablet 02-04 00:00: 00 Yes [id number] 1 tablet EVERY 6 HOURS 1 tablet EVERY 6 HOURS (route: oral) Med Classific ation: Analgesic , Anti-infl ammatory or Antipyret ic amiodarone 200 mg tablet 02-04 00:00: 00 02-12 23:59 :00 No [id number] 1 tablet 2 TIMES DAILY 1 tablet 2 TIMES DAILY (route: oral) Med Classific ation: Cardiovas cular Therapy Agents amlodipine 5 mg tablet 02-04 00:00: 00 Yes [id number] 1 tablet DAILY 1 tablet DAILY (route: oral) Med Classific ation: Cardiovas cular Therapy Agents ascorbic acid (vitamin C) 500 mg tablet 02-04 00:00: 00 Yes [id number] 1 tablet 2 TIMES DAILY 1 tablet 2 TIMES DAILY (route: oral) Med Classific ation: Electroly te Balance-N utritiona l Products aspirin 81 mg tablet,sonia yed release 02-04 00:00: 00 Yes [id number] 1 tablet DAILY 1 tablet DAILY (route: oral) Med Classific ation: Hematolog ical Agents atorvastati n 80 mg tablet 02-04 00:00: 00 Yes [id number] 1 tablet DIRECTED 1 tablet DIRECTED (route: oral) Med Classific ation: Cardiovas cular Therapy Agents cholecalcif tiera (vitamin D3) 10 mcg (400 unit) capsule 02-04 00:00: 00 Yes [id number] 1 capsule DAILY 1 capsule DAILY (route: oral) Med Classific ation: Electroly te Balance-N utritiona l Products citalopram 20 mg tablet 02-04 00:00: 00 Yes [id number] 1 tablet DAILY 1 tablet DAILY (route: oral) Med Classific ation: Central Nervous System Agents furosemide 40 mg tablet 02-04 00:00: 00 02-12 23:59 :00 No [id number] 1 tablet 2 TIMES DAILY 1 tablet 2 TIMES DAILY (route: oral) Med Classific ation: Cardiovas cular Therapy Agents Humalog KwikPen (U-100) Insulin 100 unit/mL subcutaneou s 02-04 00:00: 00 Yes [id number] Per instruc tions DIRECTED Per instructio ns DIRECTED (route: subcutaneo us) Med Classific ation: Endocrine Imbruvica 140 mg tablet 02-04 00:00: 00 Yes [id number] 1 tablet DAILY 1 tablet DAILY (route: oral) Med Classific ation: Antineopl astics insulin glargine (U-100) 100 unit/mL (3 mL) subcutaneou s pen 02-04 00:00: 00 Yes [id number] 19 unit DIRECTED 19 unit DIRECTED (route: subcutaneo us) Med Classific ation: Endocrine insulin lispro (U-100) 100 unit/mL subcutaneou s pen 02-04 00:00: 00 Yes [id number] 8 unit DIRECTED 8 unit DIRECTED (route: subcutaneo us) Med Classific ation: Endocrine metformin 500 mg tablet 02-04 00:00: 00 Yes [id number] 1 tablet 2 TIMES DAILY 1 tablet 2 TIMES DAILY (route: oral) Med Classific ation: Endocrine metoprolol succinate ER 25 mg tablet,exte nded release 24 hr 02-04 00:00: 00 Yes [id number] Per instruc tions DAILY Per instructio ns DAILY (route: oral) Med Classific ation: Cardiovas cular Therapy Agents Aldactone 25 mg tablet 02-16 00:00: 00 Yes [id number] 25 mg DAILY 25 mg DAILY (route: [...] DRY CLEAN GAUZE, LEAVE OPEN TO AIR. 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
[2024-11-04 12:21] VITALS: BP 128/59; PULSE 53; RESP 18; O2SAT 97; BMI 32.8
--- NOTE | 2024-11-04 12:44 | P.CONAN_ITS ---
HPI - Anesthesia Eval Consult details Narrative: Rescheduled d/t UTI 79yo F for Left Hip Replacement Revision Total, 11/25/24 Medically optimized per PCP Cardiac optimized. Follows [facility] Cardiology for CAD (s/p CABG x 3 01/2024), afib (after CABG, no recurrence, asa 81 only) No recent illness No CP/SOB with minimal activity PONV CLL: Followed by [facility] Heme/Onc, on Imbruvica PO Dm: FBS ~ 113 MILDRED: CPAP QHS SPT in situ, chronic recurring UTI managed by Dr Hayes. [facility] admit 10/28-11/01/24 for UTI GERD: controlled by ppi PMFSH Active Problems Active Problems: All Active Problems Pre-op exam (Acute) Non-rheumatic aortic stenosis (Acute) Loosening of prosthesis of left hip joint (Acute) Recurrent UTI (Acute) PAF (paroxysmal atrial fibrillation) (Acute) Status post aorto-coronary artery bypass graft (Acute) Status post total hip replacement, left (Acute) Post laminectomy syndrome (Acute) Lumbar spondylosis (Acute) Lumbar degenerative disc disease (Acute) Spinal stenosis of lumbar region with radiculopathy (Acute) Left hip pain (Acute) Enterococcal bacteremia (Acute) Osteopenia (Acute) Menopause (Acute) Well woman exam (Acute) Varicose veins of left lower extremity with inflammation (Acute) Stress incontinence (Acute) COVID-19 (Acute) Urinary urgency (Acute) Nephrolithiasis (Acute) Atherosclerotic cardiovascular disease (Acute) Abnormal myocardial perfusion study (Acute) Asymmetric septal hypertrophy (Acute) Abnormal nuclear cardiac imaging test (Acute) Hyperlipidemia, unspecified (Acute) Essential hypertension (Acute) Shortness of breath (Acute) Precordial chest pain (Acute) Preoperative cardiovascular examination (Acute) Breast cancer (Acute) Complicated urinary tract infection (Acute) Neurogenic urinary bladder disorder (Acute) Past Medical History Medical History PAF (paroxysmal atrial fibrillation) Suprapubic catheter Neuropathy Osteoarthritis Morbid obesity Allergy to multiple antibiotics Depression Arthritis of left hip Wears dentures Neurogenic urinary bladder disorder History of blood transfusion History of CVA (cerebrovascular accident) Seasonal allergies PONV (postoperative nausea and vomiting) Diabetes with neurologic complications Type 2 diabetes mellitus with unspecified complications Anemia CLL (chronic lymphocytic leukemia) Sleep apnea Arthritis Fibromyalgia Hypercholesterolemia Hypertension History of bilateral breast cancer Urinary retention with incomplete bladder emptying Family History Family History Mother Breast cancer Father Heart disease Father Lung cancer Mother Colon cancer Brother Pancreatic cancer Family history of problems with anesthesia: No Surgical History Surgical History History of cervical discectomy History of open heart surgery (~01/31/24) History of total left hip replacement S/P Botox injection History of suprapubic catheter S/P left breast biopsy History of esophagogastroduodenoscopy (EGD) Hx of colonoscopy History of bladder repair surgery History of total hysterectomy S/P breast biopsy, right History of back surgery History of biopsy of bladder History of Problems with Anesthesia: Yes (PONV) Social History Social History Household Members: Spouse Housing: House Housing Other:: has chair lift for second floor access Are you a primary pet care worker to a significant other at home: No Do you presently have visiting nurse or other home services: Yes (visiting nurse-recent in patient for UTI) Alcohol intake: never Comment: patient refused telesiter,removed per pt request Patient Tobacco Use Status: Never used Tobacco Advance Directives Date on File: 07/30/23 service: No Current occupational status: retired Meds Allergies Allergy/AdvReac Type Severity Reaction Status Date / Time amoxicillin [AMOXICILLIN] Allergy Severe stroke, Verified 01/05/25 14:29 blood clots ciprofloxacin [From CIPRO] Allergy Severe ANAPHYLAXIS Verified 01/05/25 14:29 Iodinated Contrast Media Allergy Severe HIVES Verified 01/05/25 14:29 [IV DYE, IODINE CONTAINING CONTRAST ] levofloxacin Allergy Severe Anaphylaxis Verified 01/05/25 14:29 liraglutide Allergy Severe Headache Verified 01/05/25 14:29 Penicillins Allergy Severe stroke, Verified 01/05/25 14:29 blood clots FREYA Inhibitors Allergy Intermediate Cough Verified 01/05/25 14:29 ARB-Angiotensin Receptor Allergy Intermediate Cough Verified 01/05/25 14:29 Antagonist cefpodoxime Allergy Intermediate Dizziness, Verified 01/05/25 14:29 nausea doxazosin Allergy Intermediate Shortness Verified 01/05/25 14:29 of Breath fluticasone [Advair Diskus] Allergy Intermediate Anxiety Verified 01/05/25 14:29 gabapentin [From Neurontin] Allergy Intermediate Headache Verified 01/05/25 14:29 hydralazine Allergy Intermediate Shortness Verified 01/05/25 14:29 of Breath latex Allergy Intermediate Hives Verified 01/05/25 14:29 linezolid Allergy Intermediate Nausea and Verified 01/05/25 14:29 Vomiting meloxicam Allergy Intermediate Unknown Verified 01/05/25 14:29 salmeterol [Advair Diskus] Allergy Intermediate Anxiety Verified 01/05/25 14:29 Tetanus Vaccines and Toxoid Allergy Intermediate Swelling Verified 01/05/25 14:29 torsemide Allergy Intermediate Shortness Verified 01/05/25 14:29 of Breath cephalexin [Keflex] Allergy Mild Nausea Verified 01/05/25 14:29 Home Medications ?Medication ?Instructions ?Recorded ?Confirmed ?Last Taken ?Type citalopram 20 mg tablet 20 mg PO QAM 07/21/20 01/05/25 04/16/22 History duloxetine 60 mg capsule,delayed 60 mg PO QAM 07/21/20 01/05/25 04/16/22 History release spironolactone 25 mg tablet 25 mg PO QAM 07/21/20 01/05/25 Unknown History amlodipine 10 mg tablet 10 mg PO QAM 03/23/21 01/05/25 04/16/22 History metformin 1,000 mg tablet 1,000 mg PO BID 04/19/21 01/05/25 Unknown History carvedilol 25 mg tablet 25 mg PO BID 05/31/21 01/05/25 04/16/22 History blood sugar diagnostic (Accu-Chek #10 ea 09/04/22 01/05/25 Unknown History Guide test strips) coenzyme Q10 100 mg capsule 100 mg PO BEDTIME 01/03/23 01/05/25 Unknown History (CoQ-10) magnesium 250 mg tablet 250 mg PO BEDTIME 01/03/23 01/05/25 Unknown History multivitamin 1 tab PO QAM 01/03/23 01/05/25 Unknown History pregabalin 150 mg capsule 150 mg PO BID 01/03/23 01/05/25 Unknown History furosemide 20 mg tablet 20 mg PO DAILY PRN Edema 10/31/23 01/05/25 Unknown History polyethylene glycol 3350 17 17 g PO DAILY PRN Constipation 10/28/24 01/05/25 Unknown History gram/dose oral powder (Miralax) aspirin 81 mg tablet,delayed 81 mg PO QAM 11/04/24 01/05/25 Unknown History release (Enteric Coated Aspirin) ferrous sulfate 325 mg (65 mg 325 mg PO QAM 11/04/24 01/05/25 Unknown History iron) tablet (iron) ibrutinib 420 mg tablet (Imbruvica) 420 mg PO QAM 11/04/24 01/05/25 Unknown History Exam Height,Weight and Vital Signs: Height 5 ft 5 in Weight 89.358 kg Last Vital Signs Pulse 53 11/04/24 12:21 Resp 18 11/04/24 12:21 BP 128/59 L 11/04/24 12:21 Pulse Ox 97 11/04/24 12:21 O2 Del Method Room Air 11/04/24 12:21 Pertinent Lab Results Pertinent Lab Results: Laboratory Tests 11/04/24 11:15 WBC 10.7 Hgb 10.5 L Hct 32.0 L Plt Count 139 L Sodium 140 Potassium 4.9 Chloride 107 Carbon Dioxide 25 BUN 30 H Creatinine 1.45 H Narrative Narrative: EKG 09/2024 EKG Details: EKG with sinus bradycardia at 57/Min; leftward axis; nonspecific intraventricular conduction defect; normal ID and corrected QT. ECHO 2023 Conclusions: - 1. Normal LV ejection fraction of 60-65% with impaired relaxation filling pattern with underlying regional wall motion abnormality consistent with coronary artery disease 2. Calcific aortic valve changes noted with mild aortic regurgitation and mild aortic stenosis 3. Upper limits of normal ascending aortic size at 3.5 cm 4. Normal RV systolic pressure 5. Trivial pericardial effusion Airway Mallampati Class: II TM Dist: >3cm Neck ROM: Limited (cspine rebuilt ~ 2000) Denture: Upper and Lower Heart: RRR Lungs: CTAB Assessment and Plan Assessment Anesthesia Assessment: Anesthesia Plan Discussed and PAT Visit Final Anesthetic Review Family History of Problems with Anesthesia: No History of Problems with Anesthesia: Yes (PONV)
[2024-11-04 13:58] LABS: Estimated Average Glucose 131 mg/dL; Hemoglobin A1c % 6.2 % (<6.0)
[2024-11-04 15:33] LABS: MRSA Nasal PCR NEGATIVE (Negative); SA Nasal PCR NEGATIVE (Negative)
[2024-11-19 12:01] LABS: Erythrocyte Sedimentation Rate 23 MM/HR (0-20)
--- OUTSIDE RECORDS SUMMARY | 2025-03-04 13:49 | XMS_ITS | Continuity of Care Document ---
Author Organization [facility] 2 [facility] [address] [place] [address] Phone [phone] Social History Type Date Description Comments Sex Female Sex Unknown Procedures Date Code Description Status 02/01/2023 NSHOWOFF No Show Office Visit Complet ed Medical Devices Description No Information Available Encounters Description No Information Available Assessments Description No Information Available Plan of Treatment No Information Available Functional Status Description No Information Available Mental Status Description No Information Available Referrals Description No Information Available
== END 2024-11-25 00:01 | disposition home or self-care (01) ==
LOC: HO.PAT
PROVIDERS: Nurse Practitioner; Physician Assistant; PCP Family Medicine; Visit Provider Orthopaedic Surgery
DX: T84.031A Mechanical loosening of internal left hip prosthetic joint, initial encounter (principal)
CPT/HCPCS: 36415; 83036; 85652; 86140; 86850; 86900; 86901; 87640; 87641; J3370

== ENCOUNTER 2024-11-26 13:49 | Outpatient (REF) | payer MEDICARE, OTHER, SELFPAY | END 2024-11-26 13:50 | disposition home or self-care (01) | LOC: HO.LNP 13:49 | PROVIDERS: Visit Provider Urology | DX: R39.9 Unspecified symptoms and signs involving the genitourinary system (principal) | CPT/HCPCS: 87086; 87088; 87186 ==

== ENCOUNTER 2024-12-10 13:51 | Outpatient (AMB) | payer MEDICARE, OTHER, SELFPAY ==
--- NOTE | 2024-12-10 14:03 | A.OFFVIS_ITS ---
Intake Visit Reasons: NE Request to Review Results&Plan Intake Note: Kaitlin is a 79 year old female who presents today to review results and construct a plan . Allergies amoxicillin [AMOXICILLIN] Allergy (Severe, Verified 11/19/24 08:59) stroke, blood clots ciprofloxacin [From CIPRO] Allergy (Severe, Verified 11/19/24 08:59) ANAPHYLAXIS Iodinated Contrast Media [IV DYE, IODINE CONTAINING CONTRAST ] Allergy (Severe, Verified 11/19/24 08:59) HIVES levofloxacin Allergy (Severe, Verified 11/19/24 08:59) Anaphylaxis liraglutide Allergy (Severe, Verified 11/19/24 08:59) Headache Penicillins Allergy (Severe, Verified 11/19/24 08:59) stroke, blood clots FREYA Inhibitors Allergy (Intermediate, Verified 11/19/24 08:59) Cough ARB-Angiotensin Receptor Antagonist Allergy (Intermediate, Verified 11/19/24 08:59) Cough cefpodoxime Allergy (Intermediate, Verified 11/19/24 08:59) Dizziness, nausea doxazosin Allergy (Intermediate, Verified 11/19/24 08:59) Shortness of Breath fluticasone [Advair Diskus] Allergy (Intermediate, Verified 11/19/24 08:59) Anxiety gabapentin [From Neurontin] Allergy (Intermediate, Verified 11/19/24 08:59) Headache hydralazine Allergy (Intermediate, Verified 11/19/24 08:59) Shortness of Breath latex Allergy (Intermediate, Verified 11/19/24 08:59) Hives linezolid Allergy (Intermediate, Verified 11/19/24 08:59) Nausea and Vomiting meloxicam Allergy (Intermediate, Verified 11/19/24 08:59) Unknown salmeterol [Advair Diskus] Allergy (Intermediate, Verified 11/19/24 08:59) Anxiety Tetanus Vaccines and Toxoid Allergy (Intermediate, Verified 11/19/24 08:59) Swelling torsemide Allergy (Intermediate, Verified 11/19/24 08:59) Shortness of Breath cephalexin [Keflex] Allergy (Mild, Verified 11/19/24 08:59) Nausea HPI HPI NE Request to Review Results&Plan: Details: Kaitlin is a 79-year-old woman who underwent a left hip replacement in January of 2023. She initially did well but had worsening pain in October of 2021. She came to see me in imaging revealed a broken acetabular screw. At that time her ESR and CRP were normal and so we moved forward with plans for revision arthroplasty with a low index of suspicion for infection but that was postponed due to need for acute cardiac intervention and she followed up to see me in June of 2024 having undergone cardiac surgery. At this time her ESR and CRP were elevated and she had a concomitant UTI which is a chronic issue. We proceeded forward with surgical planning and finally she was scheduled for an aspiration which was positive for staphylococcal infection. Her pain has been [id number]-up-ssqyyhqn but she still has difficulty walking. She has a complicated medical history including neurogenic bladder with chronic UTIs among other medical concerns. She has had enterococcal bacteremia. In conversation Kaitlin is a very pleasant thought for woman who has had a lot of ongoing medical issues apart from the complicated complications associated with her left hip replacement. [facility] Medical History PAF (paroxysmal atrial fibrillation) Suprapubic catheter Neuropathy Osteoarthritis Morbid obesity Allergy to multiple antibiotics Depression Arthritis of left hip Wears dentures Neurogenic urinary bladder disorder History of blood transfusion History of CVA (cerebrovascular accident) Seasonal allergies PONV (postoperative nausea and vomiting) Diabetes with neurologic complications Type 2 diabetes mellitus with unspecified complications Anemia CLL (chronic lymphocytic leukemia) Sleep apnea Arthritis Fibromyalgia Hypercholesterolemia Hypertension History of bilateral breast cancer Urinary retention with incomplete bladder emptying Surgical History History of cervical discectomy History of open heart surgery (~01/31/24) History of total left hip replacement S/P Botox injection History of suprapubic catheter S/P left breast biopsy History of esophagogastroduodenoscopy (EGD) Hx of colonoscopy History of bladder repair surgery History of total hysterectomy S/P breast biopsy, right History of back surgery History of biopsy of bladder Family History Mother Breast cancer Father Heart disease Father Lung cancer Mother Colon cancer Brother Pancreatic cancer Social History Household Members: Spouse Housing: House Housing Other:: has chair lift for second floor access Are you a primary behavioral health care coordinator to a significant other at home: No Do you presently have visiting nurse or other home services: Yes (visiting nurse-recent in patient for UTI) Alcohol intake: never Comment: patient refused telesiter,removed per pt request Patient Tobacco Use Status: Never used Tobacco Advance Directives Date on File: 07/30/23 service: No Current occupational status: retired Female Reproductive History Menstrual Age of Menarche: 15 Results Reviewed Results Reviewed: I personally reviewed relevant radiographs. Left hip with a broken acetabular screw and evidence of rotation of the cup compared to initial postoperative radiographs. Cultures from recent aspiration Gram stain Final 11/24/24 Gram stain results: 4+ polys 2+ red blood cells No organisms seen Anaerobic Culture Final 11/28/24-815 Report No anaerobes isolated. Synovial fluid culture Final 11/28/24-815 Organism 1 Staphylococcus lugdunensis Quantity 1+ Critical COAG NEGATIVE STAPH GROWING IN HIP ASPIRATE CULTURE sent by a secure message and confirmed by Kaitlin LEONARDO on 11/25/24 at 1027 by ATUL. Jayla Crump RX --------- --- Clindamycin >=8 R Erythromycin >=8 R Levofloxacin 0.25 S Oxacillin >=4 R Penicillin-G >=0.5 R Tetracycline >=16 R Trimethoprim/Sulfamethoxazole <=10 S Vancomycin <=0.5 S Assessment & Plan Assessment & Plan (1) Infected prosthesis of left hip: Code(s): T84.52XA - Infection and inflammatory reaction due to internal left hip prosthesis, initial encounter Category: Medical Plan: This is a 79-year-old woman who is 2-1/2 years status post left hip replacement. Six months postop she presented with new onset pain and radiographic evidence of a broken screw. At that point her ESR and CRP were normal and we were discussing revision surgery until she required emergent cardiac surgery and re- presented 6 months later. At this time she continued to have pain and a preoperative aspiration revealed an infected left total hip. Clinically she is being treated for a UTI with antibiotics and she has mild left hip pain although her ambulatory capacity is limited. I do think she would benefit from res ection arthroplasty followed by reimplantation. I discussed that given her medical comorbidities and the difficulty removing the femoral stem that she would be balderas to get a 2nd opinion, at least, and consider surgery at a tertiary care center. I will make a referral and be resource for her as she goes through this process. Coding Level of Care Code Est Pt Level 4 (20683) Diagnoses Infected prosthesis of left hip T84.52XA
--- OUTSIDE RECORDS SUMMARY | 2024-12-10 15:19 | XMS_ITS ---
Author Organization [facility] Address [address] [facility] [address] Care Team Providers Care Supervising Broker Name Role Phone Ricardo Breen MD Primary Care Provider Unavailab Jeanette Bryson Unavailable [phone] Sylvia Nguyễn Unavailable [phone] Allergies Allergen (clinical drug ingredient) Drug/Non Drug [...] Active Encounters Encounter Location Date Provider Diagnosis [facility] [address] [address] 10/15/2024 Sylvia Nguyễn Plan Of Treatment Next Appt Details Provider Name:Jeanette arnold, 01/22/2025 11:15:00 AM, [address] [place] [address], [address], Progress Notes * Kaitlin BROWN MDOB:[birth year] (79 yo F)Acc No.[id number]:10/15/2024 Progress Note Patient:?STEPHANIE Kaitlin Noel Provider:?Sylvia Nguyễn DPM :1945???Age:79 Y???Sex:Female D ate:10/15/2024 Address:[address] [place], [place] [id number] Pcp:Ricardo Breen MD Subjective: * Chief Complaints: [...] DPM Date:?0 10/15/2024 Generated for Jeny ball/Chance/Pallavi on:?12/10/2024 03:19 PM EDT
--- OUTSIDE RECORDS SUMMARY | 2024-12-10 15:19 | XMS_ITS | Continuity of Care Document ---
Author Organization [facility] [address] [facility] [address] [place] [address] Phone [phone] Social History Type Date Description Comments Sex [...]
--- OUTSIDE RECORDS SUMMARY | 2024-12-10 15:19 | XMS_ITS | Patient Health Record ---
[facility] Organization [facility] Address [address] [place] [address] Care Team Providers Care Dictating Machine Transcriber Name Role Phone Jamshid RAUSCH, Ricardo Primary Care Provider Unavailab Jeanette Bryson Unavailable [phone] Prosper Henson Unavailable [phone] Sylvia Nguyễn Unavailable [phone] Allergies Allergen (clinical drug ingredient) Drug/Non Drug Allergy documented on EMR Reaction Allergy Type Onset Date Status amoxicillin Amoxicillin SOB Drug Allergy Act ricarda ciprofloxacin Cipro anaphylactic shock Drug Allergy Active Levaquin anaphylactic shock Drug Allergy Active Adhesive Tape rash Drug Allergy Act ricadra Iodinated contrast media (substance) Iodinated Diagnostic Agents [...] Problem Acquired hammer toe of right foot (8948077831870340 ) Other hammer toe(s) (acquired), right foot (M20.41) Active confirmed Problem Acquired hallux valgus (76099155) Hallux valgus (acquired), left foot (M20.12) Active confirmed Problem Acquired hammer toe of left foot (4450516014204840 ) Other hammer toe(s) (acquired), left foot (M20.42) Active confirmed Problem Polyneuropathy due to diabetes mellitus type I (374774504) Type 1 diabetes mellitus with diabetic polyneuropathy (E10.42) Active confirmed Problem Polyneuropathy due to type 2 diabetes mellitus (398744034) Type 2 diabetes mellitus with diabetic polyneuropathy (E11.42) Active confirmed Problem Localized, primary osteoarthritis of the ankle and/or foot (027171648) Primary osteoarthritis, left ankle and foot (M19.072) Active confirmed Problem Acquired hallux rigidus (1483870) Hallux rigidus, left foot (M20.22) Active confirmed Problem Non-pressure chronic ulcer of other part of left foot limited to breakdown of skin (L97.521) Active confirmed Problem Non-pressure chronic ulcer of other part of right foot limited to breakdown of skin (L97.511) Active confirmed Problem Polyneuropathy due to type 2 diabetes mellitus (741575286) Type 2 diabetes mellitus with diabetic polyneuropathy (E11.42) Active confirmed Problem Polyneuropathy due to diabetes mellitus type I (765977824) Type 1 diabetes mellitus with diabetic polyneuropathy (E10.42) Active confirmed Problem Idiopathic gout (57981652) Acute idiopathic gout of right foot (M10.071) Active confirmed Vital Signs Blood pressure diastolic 60 mm Hg 10/23/2024 Height 5 ft 4 in in 10/23/2024 Blood pressure systolic 142 mm Hg 10/23/2024 Weight 195 lbs 10/23/2024 BMI 33.47 kg/m2 10/23/2024 Procedures Procedure Date Ordered Date Performed Result Body Sit e 65545-SXGGGJB NAIL, 6 OR MORE 07/16/2024 N/A 03555-QMWS SKIN LESIONS, 2 TO 4 07/16/2024 N/A Encounters Encounter Location Date Provider Diagnosis [facility] [address] [place] [address] 04/16/2024 Prosper Henson Type 2 diabetes mellitus with diabetic polyneuropathy E11.42 ; Tinea unguium B35.1 ; Pain in left foot M79.672 ; Primary osteoarthritis, left ankle and foot M19.072 ; Pain in left toe(s) M79.675 ; Pain in right toe(s) M79.674 ; Hallux rigidus, left foot M20.22 ; Hallux valgus (acquired), left foot M20.12 and Localized edema R60.[address] [facility] [address] 07/16/2024 Sylvia Nguyễn Type 2 diabetes mellitus with diabetic polyneuropathy E11.42 and Tinea unguium B35.[address] [address] 10/23/2024 Jeanette Messer Type 2 diabetes mellitus with diabetic polyneuropathy E11.42 ; 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 ; Tinea unguium B35.1 ; Pain in right ankle and joints of right foot M25.571 ; Other hammer toe(s) (acquired), right foot M20.41 ; Other hammer toe(s) (acquired), left foot M20.42 and Local edema R60.[address] [address] 01/31/2024 Prosper Henson [address] [address] 10/14/2024 Sylvia Nguyễn [address] [address] 10/28/2024 Jeanette Messer Assessments Encounter Date Diagnosis [...] X ray : Foot, right 3V 10/23/2024 86150-CXEAMHI NAIL, 6 OR MORE 07/16/2024 27994-IATFHAP NAIL, 1-5 05/05/2018 56706-SIMSXIU NAIL, 1-5 07/21/2018 88879-MTBNIGY NAIL, 1-5 10/13/201812/201805, J0702- INJECT or DRAIN, JOINT/BUR SA 05/05/2018 76149-TAZO SKIN LESIONS, OVER 4 05/05/20 18 56052-MFEM SKIN LESIONS, OVER 4 07/21/20 18 10137-MZFM SKIN LESIONS, OVER 4 01/13/20 19 35625-QRZA SKIN LESIONS, OVER 4 04/13/20 19 40285-QWEH SKIN LESIONS, OVER 4 10/13/19 19 93460-VHOC SKIN LESIONS, OVER 4 12/06/19 21 00006-YEAX SKIN LESIONS, OVER 4 05/08/20 21 67534-NZOC SKIN LESIONS, OVER 4 10/18/19 22 55711-IBOG SKIN LESIONS, OVER 4 08/01/20 20 36432-XWKB SKIN LESIONS, OVER 4 03/30/20 20 17816-VXCD SKIN LESIONS, OVER 4 07/13/20 19 02388-JXZD SKIN LESIONS, OVER 4 10/12/19 20 28911-RQTL SKIN LESIONS, 2 TO 4 07/16/20 24 60205-PUHB SKIN LESIONS, 2 TO 4 02/20/20 18 87897, M1803-ARVPY/INJECT, JOINT/BURSA 0 10/13/2018 V1283-OPYOWQSY DYSTROPHIC NAILS ANY # M8833-BTPCHKPY DYSTROPHIC NAILS ANY # N7595-DQEPDDAZ DYSTROPHIC NAILS ANY # O8099-ZQGQGNQJ DYSTROPHIC NAILS ANY # Y8178-XKDNVGKS DYSTROPHIC NAILS ANY # G0080-NMOSWSLM DYSTROPHIC NAILS ANY # F7147-MIJXKGLL DYSTROPHIC NAILS ANY # D1626-FBXZWJOG DYSTROPHIC NAILS ANY # X4291-MQKJQXZU DYSTROPHIC NAILS ANY # 08032- Nail Unit Biopsy 02/19/2018 Next Appt Details Provider Name:Jeanette arnold, 01/22/2025 11:15:00 AM, [address] [facility], [place], [address], Insurance Providers Payer Name Payer Address Payer Phone Subscriber Number Group Number Insured Name Patient Relationship to Insured Coverage Start Date Coverage End Date Medicare National Govt Svcs Inc [address] [place] [address] [id number] Kaitlin Ortiz Self - patient is the insured [address] [place] [address] [address] [place] [address] [id number] Kaitlin Ortiz Self - patient is the [...]
--- OUTSIDE RECORDS SUMMARY | 2024-12-10 15:19 | XMS_ITS ---
Author Organization [facility] Address [address] [facility] [address] Care Team Providers Care [place] Filler Name Role Phone Ricardo Breen MD Primary Care Provider UnavailJeanette Raman Unavailable [phone] Allergies Allergen (clinical drug ingredient) Drug/Non Drug [...] W/U Status Risk Notes Problem Idiopathic gout (68902286) Acute idiopathic gout of right foot (M10.071) Active confirmed Problem Acquired hammer toe of right foot (94343902300658 05) Other hammer toe(s) (acquired), right foot (M20.41) Active confirmed Problem Acquired hammer toe of left foot (49345522369396 03) Other hammer toe(s) (acquired), left foot (M20.42) Active confirmed Vital Signs Height 5 ft 4 in in 10/23/2024 Weight 195 lbs 10/23/2024 BMI 33.47 kg/m2 10/23/2024 Blood pressure systolic 142 mm Hg 10/23/19 25 Blood pressure diastolic 60 mm Hg 025 Encounters Encounter Location Date Provider Diagnosis [facility] [address] 10/23/2024 Jeanette Gui Type 2 diabetes mellitus [...] Reason: Provider Name:Jeanette arnold, 01/22/2025 11:15:00 AM, [address] [place] [address], [address], Procedure Notes * Category Sub-Category Detail Notes [...] use of a nail nipper and/or dremel-type floor grinder, to a more viable healthy nail [...] to maintain effectiveness in symptomatic relief - 52648 Keratoma Treatment Parring or Cutting o f [...] instrumentation by the physician of record - 87819 Progress Notes * Kaitlin BROWN MDOB:[birth year] (79 yo F)Acc No.[id number]:10/23/2024 Progress Note Patient:?SADERITUPaulettene Noel Provider:?Jeanette Messer DPM :1945???Age:79 Y???Sex:Female D ate:10/23/2024 Address:[address] [place] [address] Evie, [facility] Pcp:Ricardo Breen MD Subjective: * Chief Complaints: [...] [place], [place], Taken by a trained Podiatric Assistant Corporation Counsel ( [place]).?Findings:?increase in soft tissue contour and [...] use of a nail nipper and/or dremel-type floor grinder, to a more viable healthy nail [...] to maintain effectiveness in symptomatic relief - 14546.?Keratoma Treatment:?Parring or Cutting of Benign Hyperkeratotic Lesion(s)?(-57) [...] instrumentation by the physician of record - 14711.? * Procedure Codes:?19672 DEBRI DE NAIL, 6 OR MORE, Modifiers: XS 59657 X-RAY EXAM OF RIGHT FOOT 3V, Modifiers: 26 , CP98160 TRIM SKIN LESIONS, OVER 4, Modifiers: XS [...] Messer, DPM Date:? Generated for Printi ng/Chance/eTransmitting on:?12/10/2024 03:19 PM EDT History and Physical Notes * [...] MORPHOLOGY: Prominent, painful d orsal midfoot right FOOTWEAR EVALUATION: worn, non-supportiv e, shoe gear properties exacerbate patient's foot/toe deformity [...] [place], [place], Taken by a trained Podiatric Assistant Corporation Counsel ( [place]) Clinical Indication(s): Evaluate for Fra cture, Evaluate for Osteomyelitis, Evaluate for possible Gout
--- OUTSIDE RECORDS SUMMARY | 2024-12-10 15:19 | XMS_ITS ---
Author Organization [facility] Address [address] [place] [address] Care Team Providers Care [place] Guide Name Role Phone Ricardo Breen MD Primary Care Provider Unavailab Jeanette Bryson Unavailable [phone] REASON FOR VISIT Lab Results Encounters Encounter Location Date Provider Diagnosis [address] [address] 10/28/2024 Jeanette Messer Plan Of Treatment Next Appt Details Provider Name:Jeanette arnold, 01/22/2025 11:15:00 AM, [address] [place], [address], Progress Notes * Kaitlin BROWN MDOB:[birth year] (79 yo F)Acc No.[id number]:10/28/2024 Patient:?Kaitlin BROWN Noel :1945???Age:79 Y???Sex:Female Address:[address] [place] [address] * true * Date:? Generated for Printi lizzy/Chance/eTransmitting on:?12/10/2024 03:19 PM EDT
--- OUTSIDE RECORDS SUMMARY | 2024-12-10 15:19 | XMS_ITS | Clinical Summary ---
Author Organization [facility] Address [address] [address] Care Team Providers Care Junior Engineer Name Role Phone Ricardo Breen MD Primary Care Provider [phone] Medications spironolactone (ALDACTONE) 25 MG tablet TAKE [...] age to complete this topic Care Teams Junior Engineer Relationship Specialty Start Date End Date Ricardo Breen MD [address] [place] [address] DR [address] [place], [place] PCP - General 09/19/20
== END 2024-12-10 14:19 | disposition home or self-care (01) ==
LOC: HO.HOS 13:52
PROVIDERS: Visit Provider Orthopaedic Surgery
DX: T84.52XA Infection and inflammatory reaction due to internal left hip prosthesis, initial encounter (principal)
CPT/HCPCS: 99214

== ENCOUNTER → 2024-12-10 13:51 | Outpatient (BNVA) | payer MEDICARE, OTHER, SELFPAY | PROVIDERS: Visit Provider Orthopaedic Surgery | DX: T84.52XA Infection and inflammatory reaction due to internal left hip prosthesis, initial encounter (principal); N39.0 Urinary tract infection, site not specified; X58.XXXA Exposure to other specified factors, initial encounter; Y93.9 Activity, unspecified; Y92.9 Unspecified place or not applicable; Y99.9 Unspecified external cause status | CPT/HCPCS: 99212 ==

== ENCOUNTER 2024-12-12 10:00 | Outpatient (RCR) | payer MEDICARE, OTHER, SELFPAY ==
[2024-12-03 10:13] VITALS: BP 142/60; PULSE 61; RESP 20; TEMP 37.9; O2SAT 98
[2024-12-03 10:51] LABS: Blood Urea Nitrogen 25 mg/dL (9-16); Creatinine Clr Calc Pharmacy 35.4; Estimated Glomerular Filt Rate 36
[2024-12-03] MEDS: vancomycin/NS 2,000 MG/500 ML PLAST..BAG 250 MG IV (11:19)
--- NOTE | 2024-12-03 12:55 | PHA.PROG ---
Admission Date/Time: Indication: OTHER (complicated UTI) Weight in k.5 kg Adjusted body weight in Kg: [place] body weight in Kg: Obesity Dosing Indication % IBW: Serum Creatinine - Last 168 Hours 12/03/24 10:26 Creatinine 1.42 H Estimated CrCl and GFR - Last 168 Hours 12/03/24 10:26 Estim Creat Clear Calc 35.4 Estimated GFR 36 Vancomycin Loading Dose: 2000 mg Current Vancomycin Dosing Regimen: 1000 mg q24h Vancomycin Monitoring using AUC goal of 400 - 600 range with trough as surrogate marker: MZQ=691 TROUGH=15.4 Date and Time for next Vancomycin Level to be drawn: 12/05/24 @1000 Pharmacist Comments on Vancomycin Plan: confirmed with Dr. Hayes that he wants a full vanco consult (pharmacy to follow and ajust dose according to trough and creatinine). Creatinine is ordered for daily and trough before 3rd dose. Vancomycin dosing will take advantage of [employer] as a clinical decision support tool that uses Bayesian modeling to calculate individual patient's pharmacokinetic parameters and forecast the patient's drug concentration time course with the target goal AUC 24 range of 400 - 600 mg/L/hr.
[2024-12-03] MEDS: Heparin Sodium,Porcine Flush 50 UNITS, 0.9 % Sodium Chloride Flush 5 ML IVFLUSH (13:28)
[2024-12-04 10:21] LABS: Creatinine Clr Calc Pharmacy 30.4; Estimated Glomerular Filt Rate 30
[2024-12-04 10:30] VITALS: BP 153/78; PULSE 60; RESP 20; TEMP 37; O2SAT 95
[2024-12-04] MEDS: vancomycin HCL 1,000 MG in 0.9 % Sodium Chloride 250 ML 270 MG IV (10:49)
[2024-12-04] MEDS: Heparin Sodium,Porcine Flush 50 UNITS, 0.9 % Sodium Chloride Flush 5 ML IVFLUSH (11:47)
[2024-12-05 09:46] VITALS: BP 139/45; PULSE 56; RESP 16; TEMP 36.8; O2SAT 95
[2024-12-05 10:13] LABS: Estimated Glomerular Filt Rate 33
[2024-12-05 10:38] LABS: Vancomycin Random 13.7 mcg/mL (15-20)
[2024-12-05] MEDS: vancomycin HCL 1,000 MG in 0.9 % Sodium Chloride 250 ML 270 MG IV (11:04)
[2024-12-05] MEDS: Heparin Sodium,Porcine Flush 50 UNITS, 0.9 % Sodium Chloride Flush 5 ML IVFLUSH (12:01)
[2024-12-06 09:49] VITALS: BP 118/48; PULSE 56; RESP 16; TEMP 36.8; O2SAT 99
[2024-12-06 10:15] LABS: Creatinine Clr Calc Pharmacy 36.1; Estimated Glomerular Filt Rate 37
[2024-12-06] MEDS: vancomycin HCL 1,000 MG in 0.9 % Sodium Chloride 250 ML 270 MG IV (10:24)
[2024-12-06] MEDS: Heparin Sodium,Porcine Flush 50 UNITS, 0.9 % Sodium Chloride Flush 5 ML IVFLUSH (11:29)
[2024-12-07 10:11] VITALS: BP 156/52; PULSE 60; RESP 16; TEMP 37; O2SAT 97
[2024-12-07 10:47] LABS: Creatinine Clr Calc Pharmacy 35.9; Estimated Glomerular Filt Rate 36
[2024-12-07 10:52] LABS: Vancomycin Random 13.6 mcg/mL (15-20)
--- NOTE | 2024-12-07 11:02 | HE.PHANOTE ---
Re: vanco Poor but stable renal function. Trough returned at 13.6. Continue current regimen of 1000 mg q24h with predicted AUC 440, predicted trough 13.7. Next trough /2 @ 1000.
[2024-12-07] MEDS: vancomycin HCL 1,000 MG in 0.9 % Sodium Chloride 250 ML 270 MG IV (11:16)
[2024-12-07] MEDS: Heparin Sodium,Porcine Flush 50 UNITS, 0.9 % Sodium Chloride Flush 5 ML IVFLUSH (12:18)
[2024-12-08 09:55] VITALS: BP 167/53; PULSE 63; RESP 16; TEMP 36.9; O2SAT 96
[2024-12-08 11:09] LABS: Creatinine Clr Calc Pharmacy 28.5; Estimated Glomerular Filt Rate 28
[2024-12-08] MEDS: vancomycin HCL 1,000 MG in 0.9 % Sodium Chloride 250 ML 270 MG IV (11:25)
[2024-12-08] MEDS: Heparin Sodium,Porcine Flush 50 UNITS, 0.9 % Sodium Chloride Flush 5 ML IVFLUSH (12:30)
[2024-12-09 09:57] VITALS: BP 151/41; PULSE 61; RESP 16; TEMP 36.5; O2SAT 96
[2024-12-09 10:41] LABS: Vancomycin Trough 15.2 mcg/mL (10.0-20.0)
[2024-12-09 10:44] LABS: Creatinine Clr Calc Pharmacy 30.9; Estimated Glomerular Filt Rate 31
[2024-12-09] MEDS: vancomycin HCL 1,000 MG in 0.9 % Sodium Chloride 250 ML 270 MG IV (11:07)
[2024-12-09] MEDS: Heparin Sodium,Porcine Flush 50 UNITS, 0.9 % Sodium Chloride Flush 5 ML IVFLUSH (12:12)
[2024-12-10 10:09] VITALS: BP 129/45; PULSE 56; RESP 16; TEMP 36.4; O2SAT 98
[2024-12-10 10:43] LABS: Blood Urea Nitrogen 27 mg/dL (9-16); Creatinine Clr Calc Pharmacy 36.9; Estimated Glomerular Filt Rate 38
[2024-12-10] MEDS: vancomycin HCL 1,000 MG in 0.9 % Sodium Chloride 250 ML 270 MG IV (11:06)
[2024-12-10] MEDS: Heparin Sodium,Porcine Flush 50 UNITS, 0.9 % Sodium Chloride Flush 5 ML IVFLUSH (12:09)
[2024-12-11 10:03] VITALS: BP 139/40; PULSE 58; RESP 16; TEMP 36.7; O2SAT 96
[2024-12-11 10:47] LABS: Creatinine Clr Calc Pharmacy 33.9; Estimated Glomerular Filt Rate 34
[2024-12-11] MEDS: vancomycin HCL 1,000 MG in 0.9 % Sodium Chloride 250 ML 270 MG IV (11:07)
[2024-12-11] MEDS: Heparin Sodium,Porcine Flush 50 UNITS, 0.9 % Sodium Chloride Flush 5 ML IVFLUSH (12:12)
[2024-12-12 09:36] VITALS: BP 148/42; PULSE 60; RESP 20; TEMP 36.3; O2SAT 97
[2024-12-12 10:22] LABS: Creatinine Clr Calc Pharmacy 35.4; Estimated Glomerular Filt Rate 36
[2024-12-12] MEDS: vancomycin HCL 1,000 MG in 0.9 % Sodium Chloride 250 ML 270 MG IV (10:35)
--- NOTE | 2024-12-12 10:38 | PC.NURSE ---
Labs returned. Pharmacy Sylvia -pharmacist confirms current Vancomycin dose correct based on lab return. IV antibiotic infusion started. 2664
[2024-12-12 11:36] VITALS: BMI 33.8
== END 2025-01-05 15:07 | disposition home or self-care (01) ==
LOC: HO.INF 10:00
PROVIDERS: Visit Provider Urology
DX: N39.0 Urinary tract infection, site not specified (principal)
CPT/HCPCS: 36415; 80202; 82565; 84520; 96365; 96366; 96374; J1642; J3370

== ENCOUNTER 2024-12-30 11:14 | Outpatient (REF) | payer MEDICARE, OTHER, SELFPAY ==
--- OUTSIDE RECORDS SUMMARY | 2024-12-30 13:35 | XMS_ITS ---
Author Organization [facility] Address [address] [place] [address] Care Team Providers Care Remote Sensing Scientist Name Role Phone Ricardo Breen MD Primary Care Provider Unavailab Jeanette Bryson Unavailable [phone] REASON FOR VISIT Changing doctors Encounters Encounter Location Date Provider Diagnosis [address] [address] 12/18/2024 Jeanette Messer Plan Of Treatment Next Appt Details Provider Name:Bishnu Cervantes , 03/23/2025 01:45:00 PM, [address] [place], [address], Progress Notes * Kaitlin BROWN MDOB:[birth year] (79 yo F)Acc No.[id number]:12/18/2024 Patient:?Paulette BROWNjennifer Cohen :1945???Age:79 Y???Sex:Female Address:[address] [place] [address] * true * Date:? Generated for Printi lizzy/Chance/eTransmitting on:?12/30/2024 01:34 PM EDT
--- OUTSIDE RECORDS SUMMARY | 2024-12-30 13:35 | XMS_ITS | Patient Health Record ---
Author Organization [facility] Address [address] [place] [address] Care Team Providers Care Registered Massage Therapist Name Role Phone Jamshid RAUSCH, Ricardo Primary Care Provider Unavailab Jeanette Bryson Unavailable [phone] Prosper Henson Unavailable [phone] Sylvia Nguyễn Unavailable [phone] Allergies Allergen (clinical drug ingredient) Drug/Non Drug [...] Polyneuropathy due to type 2 diabetes mellitus (944709858) Type 2 diabetes mellitus with diabetic polyneuropathy (E11.42) Active confirmed Vital Signs Blood pressure diastolic 60 mm Hg 10/23/2024 Height 5 ft 4 in in 10/23/2024 Blood pressure systolic 142 mm Hg 10/23/2024 Weight 195 lbs 10/23/2024 BMI 33.47 kg/m2 10/23/2024 Procedures Procedure Date Ordered Date Performed Result Body Sit e 14586-GALAPMK NAIL, 6 OR MORE 07/16/2024 N/A 36211-XZMD SKIN LESIONS, 2 TO 4 07/16/2024 N/A Encounters Encounter Location Date Provider Diagnosis [address] [address] 04/16/2024 Prosper Henson Type 2 diabetes mellitus with diabetic polyneuropathy E11.42 ; Tinea unguium B35.1 ; Pain in left foot M79.672 ; Primary osteoarthritis, left ankle and foot M19.072 ; Pain in left toe(s) M79.675 ; Pain in right toe(s) M79.674 ; Hallux rigidus, left foot M20.22 ; Hallux valgus (acquired), left foot M20.12 and Localized edema R60.[address] [address] 07/16/2024 Sylvia Nguyễn Type 2 diabetes mellitus with diabetic polyneuropathy E11.42 and Tinea unguium B35.[address] [address] 10/23/2024 Jeanette Messer Type 2 diabetes mellitus with diabetic polyneuropathy E11.42 ; 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 ; Tinea unguium B35.1 ; Pain in right ankle and joints of right foot M25.571 ; Other hammer toe(s) (acquired), right foot M20.41 ; Other hammer toe(s) (acquired), left foot M20.42 and Local edema R60.[address] [address] 01/31/2024 Prosper Henson [address] [address] 10/14/2024 Sylvia Nguyễn [facility] [address] [place] [address] 10/28/2024 Jeanette Messer [facility] [address] [place] [address] 12/18/2024 Jeanette Messer [facility] [address] [place] [address] 12/18/2024 Jeanette Messer Assessments Encounter Date Diagnosis (ICD [...] X ray : Foot, right 3V 10/23/2024 17537-WSAKOFV NAIL, 6 OR MORE 07/16/2024 67830-EUNXQLQ NAIL, 1-5 05/05/2018 15800-DHGCLYR NAIL, 1-5 07/21/2018 00437-XTXZNZX NAIL, 1-5 10/13/2018 31931, J0702- INJECT or DRAIN, JOINT/BUR SA 05/05/2018 05373-RKNT SKIN LESIONS, OVER 4 05/05/20 18 77330-GFOW SKIN LESIONS, OVER 4 07/21/20 18 05342-KAOS SKIN LESIONS, OVER 4 01/13/20 19 28581-OUNW SKIN LESIONS, OVER 4 04/13/20 19 11762-FRFA SKIN LESIONS, OVER 4 10/13/19 19 40712-JMPO SKIN LESIONS, OVER 4 12/06/19 21 01190-RJZM SKIN LESIONS, OVER 4 05/08/20 21 91272-NNND SKIN LESIONS, OVER 4 10/18/19 22 17739-KZYD SKIN LESIONS, OVER 4 08/01/20 20 37363-YIZY SKIN LESIONS, OVER 4 03/30/20 20 75350-UQBJ SKIN LESIONS, OVER 4 07/13/20 19 39820-PVHJ SKIN LESIONS, OVER 4 10/12/19 20 24826-TDYW SKIN LESIONS, 2 TO 4 07/16/20 24 26919-PQLM SKIN LESIONS, 2 TO 4 02/20/20 18 25543, F1674-IBJHB/INJECT, JOINT/BURSA 0 10/13/2018 P2232-IFABZQDM DYSTROPHIC NAILS ANY # H2248-GSXSQDUP DYSTROPHIC NAILS ANY # N9909-CTICGIXS DYSTROPHIC NAILS ANY # J5626-PLTABUKH DYSTROPHIC NAILS ANY # F4691-QBNEQQEY DYSTROPHIC NAILS ANY # V7226-LPUCSKOW DYSTROPHIC NAILS ANY # N3291-KTZDWWNJ DYSTROPHIC NAILS ANY # H1173-HYKDLWQL DYSTROPHIC NAILS ANY # F9178-XUHFZQUA DYSTROPHIC NAILS ANY # 29733- Nail Unit Biopsy 02/19/2018 Next Appt Details Provider Name:Bishnu Cervantes , 03/23/2025 01:45:00 PM, [address] [facility], [place], [address], Insurance Providers Payer Name Payer Address Payer Phone Subscriber Number Group Number Insured Name Patient Relationship to Insured Coverage Start Date Coverage End Date Medicare National Govt Svcs Inc [address] [place] [address] [phone] [id number] Kaitlin Ortiz Self - patient is the insured [address] [place] [address] [address] [place], [place] [id number] Kaitlin Ortiz Self - patient is the [...]
--- OUTSIDE RECORDS SUMMARY | 2024-12-30 13:35 | XMS_ITS | Continuity of Care Document ---
Author Organization [facility] [address] [facility] [address] [place] [address] Phone [phone] Social History Type Date Description Comments Sex [...]
--- OUTSIDE RECORDS SUMMARY | 2024-12-30 13:35 | XMS_ITS | Clinical Summary ---
Author Organization [facility] Facility Address [address] [address] Care Team Providers Care Eap Counselor Name Role Phone Ricardo Breen MD Primary [...] Due Date Last Done Comments Pneumococcal Vaccine: 50+ Ye ars (2 of 2 - PCV) 11/10/2014 11/10/2013 Influenza Vaccine (Season Ended) 2025 Pneumococcal Vaccine: Peds ( 0 to 5 Years) and At-Risk Patients (6 to 49 Years) Discontinued 11/10/2013 Hepatitis B Vaccine Aged Out No longe r eligible based on patient's age to complete this topic Care Teams Eap Counselor Relationship Specialty Start Date End Date Ricardo Breen MD [address] [place] [address] DR [address] [place], [place] PCP - General 09/19/20
--- OUTSIDE RECORDS SUMMARY | 2024-12-30 13:35 | XMS_ITS ---
Author Organization [facility] Address [address] [place] [address] Care Team Providers Care Stroke Belt Sander Operator Name Role Phone Ricardo Breen MD Primary Care Provider Unavailab Jeanette Bryson Unavailable [phone] REASON FOR VISIT Lab Results Encounters Encounter Location Date Provider Diagnosis [address] [address] 10/28/2024 Jeanette Messer Plan Of Treatment Next Appt Details Provider Name:Bishnu Cervantes , 03/23/2025 01:45:00 PM, [address] [place], [address], Progress Notes * Kaitlin BROWN MDOB:[birth year] (79 yo F)Acc No.[id number]:10/28/2024 Patient:?Paulette BROWNjennifer Cohen :1945???Age:79 Y???Sex:Female Address:[address] [place] [address] * true * Date:? Generated for Printi lizzy/Chance/eTransmitting on:?12/30/2024 01:34 PM EDT
--- OUTSIDE RECORDS SUMMARY | 2024-12-30 13:36 | XMS_ITS ---
Author Organization [facility] Address [address] [place] [address] Care Team Providers Care Multimedia Editor Name Role Phone Ricardo Breen MD Primary Care Provider Unavailab Jeanette Bryson Unavailable [phone] REASON FOR VISIT rs from 01/22/25 Encounters Encounter Location Date Provider Diagnosis [address] [address] 12/18/2024 Jeanette Messer Plan Of Treatment Next Appt Details Provider Name:Bishnu Cervantes , 03/23/2025 01:45:00 PM, [address] [place], [address], Progress Notes * Kaitlin BROWN MDOB:[birth year] (79 yo F)Acc No.[id number]:12/18/2024 Patient:?Paultete BROWNjennifer Cohen :1945???Age:79 Y???Sex:Female Address:[address] [place] [address] * true * Date:? Generated for Printi lizzy/Fataneshag/eTransmitting on:?12/30/2024 01:35 PM EDT
== END 2024-12-30 11:15 | disposition home or self-care (01) ==
LOC: HO.LNP 11:14
PROVIDERS: Visit Provider Urology
DX: R39.9 Unspecified symptoms and signs involving the genitourinary system (principal)
CPT/HCPCS: 87086; 87088; 87186

== ENCOUNTER → 2025-01-01 10:29 | Outpatient (BNVA) | payer MEDICARE, OTHER, SELFPAY | PROVIDERS: PCP Family Medicine; Visit Provider Urology | DX: N31.9 Neuromuscular dysfunction of bladder, unspecified (principal); Z46.6 Encounter for fitting and adjustment of urinary device; Z93.50 Unspecified cystostomy status | CPT/HCPCS: 51705 ==

== ENCOUNTER 2025-01-15 12:30 | Outpatient (RCR) | payer MEDICARE, OTHER, SELFPAY ==
[2025-01-06 10:05] VITALS: BP 143/40; PULSE 59; RESP 16; TEMP 36.6; O2SAT 95
[2025-01-06] MEDS: Meropenem 1 GM VIAL IVPUSH (10:18)
[2025-01-06] MEDS: Heparin Sodium,Porcine Flush 50 UNITS, 0.9 % Sodium Chloride Flush 5 ML IVFLUSH (10:26)
[2025-01-07 09:59] VITALS: BP 119/50; PULSE 54; RESP 16; TEMP 36.6; O2SAT 97
[2025-01-07] MEDS: Meropenem 1 GM VIAL IVPUSH (10:06)
[2025-01-07] MEDS: Heparin Sodium,Porcine Flush 50 UNITS, 0.9 % Sodium Chloride Flush 5 ML IVFLUSH (10:10)
[2025-01-08 12:12] VITALS: BP 146/64; PULSE 54; RESP 16; TEMP 36.1; O2SAT 98
[2025-01-08] MEDS: Meropenem 1 GM VIAL IVPUSH (12:16)
[2025-01-08] MEDS: Heparin Sodium,Porcine Flush 50 UNITS, 0.9 % Sodium Chloride Flush 5 ML IVFLUSH (12:26)
[2025-01-09 10:10] VITALS: BP 144/46; PULSE 57; RESP 20; TEMP 36.9; O2SAT 95
[2025-01-09] MEDS: Meropenem 1 GM VIAL IVPUSH (10:19)
[2025-01-09] MEDS: Heparin Sodium,Porcine Flush 50 UNITS, 0.9 % Sodium Chloride Flush 5 ML IVFLUSH (10:21)
[2025-01-10 10:08] VITALS: BP 144/46; PULSE 55; RESP 16; TEMP 36.7; O2SAT 96
[2025-01-10] MEDS: Meropenem 1 GM VIAL IVPUSH (10:15)
[2025-01-11 11:21] VITALS: BP 132/45; PULSE 56; RESP 16; TEMP 36.8; O2SAT 95
[2025-01-11] MEDS: Meropenem 1 GM VIAL IVPUSH (11:41)
[2025-01-11] MEDS: Heparin Sodium,Porcine Flush 50 UNITS, 0.9 % Sodium Chloride Flush 5 ML IVFLUSH (11:47)
[2025-01-12 11:12] VITALS: BP 127/41; PULSE 51; RESP 16; TEMP 36.6; O2SAT 98
[2025-01-12] MEDS: Meropenem 1 GM VIAL IVPUSH (11:16)
[2025-01-12] MEDS: Heparin Sodium,Porcine Flush 50 UNITS, 0.9 % Sodium Chloride Flush 5 ML IVFLUSH (11:22)
[2025-01-13 09:53] VITALS: BP 149/40; PULSE 51; RESP 16; TEMP 36.7; O2SAT 98
[2025-01-13] MEDS: Meropenem 1 GM VIAL IVPUSH (09:59)
[2025-01-13] MEDS: Heparin Sodium,Porcine Flush 50 UNITS, 0.9 % Sodium Chloride Flush 5 ML IVFLUSH (10:03)
[2025-01-14 10:35] VITALS: BP 143/48; PULSE 51; RESP 20; TEMP 36.8; O2SAT 97
[2025-01-14] MEDS: Meropenem 1 GM VIAL IVPUSH (10:51)
[2025-01-14] MEDS: Heparin Sodium,Porcine Flush 50 UNITS, 0.9 % Sodium Chloride Flush 5 ML IVFLUSH (10:55)
[2025-01-15 12:04] VITALS: BP 134/56; PULSE 54; RESP 16; TEMP 36.6; O2SAT 97
[2025-01-15] MEDS: Meropenem 1 GM VIAL IVPUSH (12:06)
== END 2025-01-15 12:39 | disposition home or self-care (01) ==
LOC: HO.INF 12:30
PROVIDERS: Visit Provider Urology
DX: N39.0 Urinary tract infection, site not specified (principal)
CPT/HCPCS: 96374; J1642; J2185

== ENCOUNTER 2025-01-18 07:43 | Outpatient (REF) | payer MEDICARE, OTHER, SELFPAY ==
--- OUTSIDE RECORDS SUMMARY | 2025-01-18 07:46 | XMS_ITS ---
Author Organization [facility] Address [address] [place] [address] Care Team Providers Care Gas Treater Name Role Phone Ricardo Breen MD Primary Care Provider Unavailab Jeanette Bryson Unavailable [phone] REASON FOR VISIT rs from 01/22/25 Encounters Encounter Location Date Provider Diagnosis [address] [address] 12/18/2024 Jeanette Messer Plan Of Treatment Next Appt Details Provider Name:Bishnu Cervantes , 03/23/2025 01:45:00 PM, [address] [place], [address], Progress Notes * Kaitlin BROWN MDOB:[birth year] (79 yo F)Acc No.[id number]:12/18/2024 Patient:?Paulette BROWNjennifer Cohen :1945???Age:79 Y???Sex:Female Address:[address] [place] [address] * true * Date:? Generated for Printi lizzy/Fataneshag/eTransmitting on:?01/18/2025 07:45 AM EDT
--- OUTSIDE RECORDS SUMMARY | 2025-01-18 07:46 | XMS_ITS | Patient Health Record ---
Author [facility] Address [address] [place] [address] Care Team Providers Care Chief Controller Center Name Role Phone Jamshid RAUSCH, Ricardo Primary Care Provider Unavailab Jeanette Bryson Unavailable [phone] Prosper Henson Unavailable [phone] Sylvia Nguyễn Unavailable [phone] Allergies Allergen (clinical drug ingredient) Drug/Non Drug [...] Polyneuropathy due to type 2 diabetes mellitus (921907258) Type 2 diabetes mellitus with diabetic polyneuropathy (E11.42) Active confirmed Vital Signs Blood pressure diastolic 60 mm Hg 10/23/2024 Height 5 ft 4 in in 10/23/2024 Blood pressure systolic 142 mm Hg 10/23/2024 Weight 195 lbs 10/23/2024 BMI 33.47 kg/m2 10/23/2024 Procedures Procedure Date Ordered Date Performed Result Body Sit e 99108-GFJVEFI NAIL, 6 OR MORE 07/16/2024 N/A 29822-WZFV SKIN LESIONS, 2 TO 4 07/16/2024 N/A Encounters Encounter Location Date Provider Diagnosis [address] [address] 04/16/2024 Prosper Henson Type 2 diabetes mellitus with diabetic polyneuropathy E11.42 ; Tinea unguium B35.1 ; Pain in left foot M79.672 ; Primary osteoarthritis, left ankle and foot M19.072 ; Pain in left toe(s) M79.675 ; Pain in right toe(s) M79.674 ; Hallux rigidus, left foot M20.22 ; Hallux valgus (acquired), left foot M20.12 and Localized edema R60.[address] [address] 07/16/2024 Sylvia Nguyễn Type 2 diabetes mellitus with diabetic polyneuropathy E11.42 and Tinea unguium B35.[address] [address] 10/23/2024 Jeanette Messer Type 2 diabetes mellitus with diabetic polyneuropathy E11.42 ; 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 ; Tinea unguium B35.1 ; Pain in right ankle and joints of right foot M25.571 ; Other hammer toe(s) (acquired), right foot M20.41 ; Other hammer toe(s) (acquired), left foot M20.42 and Local edema R60.[address] [address] 01/31/2024 Prosper Henson [address] [address] 10/14/2024 Sylvia Nguyễn [facility] [address] [place] [address] 10/28/2024 Jeanette Messer [facility] [address] [place] [address] 12/18/2024 Jeanette Messer [facility] [address] [place] [address] 12/18/2024 Jeanette Messer Assessments Encounter Date Diagnosis [...] X ray : Foot, right 3V 10/23/2024 95134-THGWSTH NAIL, 6 OR MORE 07/16/2024 36882-FNDSDIN NAIL, 1-5 05/05/2018 90262-TKQFZEN NAIL, 1-5 07/21/2018 27758-JRKEFZZ NAIL, 1-5 10/13/2018 96649, J0702- INJECT or DRAIN, JOINT/BUR SA 05/05/2018 63901-ZKIL SKIN LESIONS, OVER 4 05/05/20 18 99265-DNGM SKIN LESIONS, OVER 4 07/21/20 18 51164-MGJT SKIN LESIONS, OVER 4 01/13/20 19 65359-ZZFD SKIN LESIONS, OVER 4 04/13/20 19 59256-MDNR SKIN LESIONS, OVER 4 10/13/19 19 03265-USFR SKIN LESIONS, OVER 4 12/06/19 21 16003-IHAV SKIN LESIONS, OVER 4 05/08/20 21 30191-KZAG SKIN LESIONS, OVER 4 10/18/19 22 70101-RJQO SKIN LESIONS, OVER 4 08/01/20 20 18813-PHEP SKIN LESIONS, OVER 4 03/30/20 20 13439-HVAF SKIN LESIONS, OVER 4 07/13/20 19 05514-CVHK SKIN LESIONS, OVER 4 10/12/19 20 49630-YDPK SKIN LESIONS, 2 TO 4 07/16/20 24 42383-BMZA SKIN LESIONS, 2 TO 4 02/20/20 18 73390, K1622-FZHOA/INJECT, JOINT/BURSA 0 10/13/2018 N8305-NQAQNNTS DYSTROPHIC NAILS ANY # G3757-EJDWVPIA DYSTROPHIC NAILS ANY # X2256-FWQXCMTT DYSTROPHIC NAILS ANY # Y4636-QNWQSQOO DYSTROPHIC NAILS ANY # F8020-OCWTNFBX DYSTROPHIC NAILS ANY # Y8118-SJNQEDGZ DYSTROPHIC NAILS ANY # O0581-FBFBSNLR DYSTROPHIC NAILS ANY # X8445-BOIRANNM DYSTROPHIC NAILS ANY # V2837-MBKJRHTH DYSTROPHIC NAILS ANY # 61973- Nail Unit Biopsy 02/19/2018 Next Appt Details Provider Name:Bishnu Cervantes , 03/23/2025 01:45:00 PM, [address] [facility], [place], [address], Insurance Providers Payer Name Payer Address Payer Phone Subscriber Number Group Number Insured Name Patient Relationship to Insured Coverage Start Date Coverage End Date Medicare National Govt Svcs Inc [address] [place] [address] [id number] Kaitlin Ortiz Self - patient is the insured [address] [place] [address] [address] [place], [place] [id number] [phone] [id number] Kaitlin Ortiz Self - patient is the [...]
--- OUTSIDE RECORDS SUMMARY | 2025-01-18 07:46 | XMS_ITS ---
Author Organization [facility] Address [address] [place] [address] Care Team Providers Care Dairy Grazer Name Role Phone Ricardo Breen MD Primary Care Provider Unavailab Jeanette Bryson Unavailable [phone] REASON FOR VISIT Changing doctors Encounters Encounter Location Date Provider Diagnosis [address] [address] 12/18/2024 Jeanette Messer Plan Of Treatment Next Appt Details Provider Name:Bishnu Cervantes , 03/23/2025 01:45:00 PM, [address] [place], [address], Progress Notes * Kaitlin BROWN MDOB:[birth year] (79 yo F)Acc No.[id number]:12/18/2024 Patient:?Kaitlin BROWN Noel :1945???Age:79 Y???Sex:Female Address:[address] [place] [address] * true * Date:? Generated for Printi lizzy/Chance/eTransmitting on:?01/18/2025 07:46 AM EDT
--- OUTSIDE RECORDS SUMMARY | 2025-01-18 07:46 | XMS_ITS | Clinical Summary ---
Author Organization [facility] Facility Address [address] [address] Care Team Providers Care Thin Film Technician Name Role Phone Ricardo Breen MD Primary Care Provider [phone] Medications spironolactone (ALDACTONE) 25 MG tablet TAKE [...] age to complete this topic Care Teams Thin Film Technician Relationship Specialty Start Date End Date Ricardo Breen MD [address] [place] [address] DR [address] [place], [place] PCP - General 09/19/20
--- OUTSIDE RECORDS SUMMARY | 2025-01-18 07:46 | XMS_ITS ---
Author Organization [facility] Address [address] [place] [address] Care Team Providers Care Clinical Analyst Name Role Phone Ricardo Breen MD Primary Care Provider Unavailab Jeanette Bryson Unavailable [phone] REASON FOR VISIT Lab Results Encounters Encounter Location Date Provider Diagnosis [address] [address] 10/28/2024 Jeanette Messer Plan Of Treatment Next Appt Details Provider Name:Bishnu Cervantes , 03/23/2025 01:45:00 PM, [address] [place], [address], Progress Notes * Kaitlin BROWN MDOB:[birth year] (79 yo F)Acc No.[id number]:10/28/2024 Patient:?Paulette BROWNjennifer Cohen :1945???Age:79 Y???Sex:Female Address:[address] [place] [address] * true * Date:? Generated for Printi lizzy/Chance/eTransmitting on:?01/18/2025 07:46 AM EDT
--- OUTSIDE RECORDS SUMMARY | 2025-01-18 07:46 | XMS_ITS | Continuity of Care Document ---
Author Organization [facility] [address] [facility] [address] [place] [address] Phone [phone] Social History Type Date Description Comments Sex [...]
[2025-01-18 09:09] VITALS: BP 158/67; PULSE 53; RESP 16; TEMP 36.2; O2SAT 96; BMI 33.8
== END 2025-01-18 07:44 | disposition home or self-care (01) ==
LOC: HO.MS 07:43
PROVIDERS: PCP Family Medicine; Visit Provider Ophthalmology
PROC: (CPT 66821; principal; 2025-01-18 11:00)
DX: H26.491 Other secondary cataract, right eye (principal)
CPT/HCPCS: 66821

== ENCOUNTER → 2025-01-21 13:03 | Outpatient (BNVA) | payer MEDICARE, OTHER, SELFPAY | PROVIDERS: PCP Family Medicine; Visit Provider Urology | DX: N31.9 Neuromuscular dysfunction of bladder, unspecified (principal); Z46.6 Encounter for fitting and adjustment of urinary device; Z93.50 Unspecified cystostomy status | CPT/HCPCS: 51705 ==

== ENCOUNTER 2025-02-22 11:40 | Outpatient (REF) | payer MEDICARE, OTHER, SELFPAY ==
--- OUTSIDE RECORDS SUMMARY | 2025-02-22 13:16 | XMS_ITS ---
Author Organization [facility] Address [address] [facility] [address] Care Team Providers Care Graphic Engineer Name Role Phone Ricardo Breen MD Primary Care Provider Unavailab Jeanette Bryson Unavailable [phone] Sylvia Nguyễn Unavailable [phone] Allergies Allergen (clinical drug ingredient) Drug/Non Drug [...] Active Encounters Encounter Location Date Provider Diagnosis [facility] [address] [address] 10/15/2024 Sylvia Nguyễn Plan Of Treatment Next Appt Details Provider Name:Bishnu Cervantes , 03/23/2025 01:45:00 PM, [address] [place] [address], [address], Progress Notes * Kaitlin BROWN MDOB:[birth year] (79 yo F)Acc No.[id number]:10/15/2024 Progress Note Patient:?Paulette BROWNne Noel Provider:?Sylvia Nguyễn DPM :1945???Age:79 Y???Sex:Female D ate:10/15/2024 Address:[address] [place], [place] [id number] Pcp:Ricardo Breen MD Subjective: * Chief Complaints: [...] DPM Date:?0 10/15/2024 Generated for Jeny ball/Chance/Pallavi on:?02/22/2025 01:15 PM EDT
== END 2025-02-22 11:41 | disposition home or self-care (01) ==
LOC: HO.LNP 11:40
PROVIDERS: Visit Provider Urology
DX: M25.559 Pain in unspecified hip (principal)
CPT/HCPCS: 87086; 87088; 87186

== ENCOUNTER 2025-03-01 12:30 | Outpatient (REF) | payer MEDICARE, OTHER, SELFPAY ==
[2025-03-01 13:08] LABS: MANUAL DIFF FLAG NO
[2025-03-01 13:18] LABS: Basophils Absolute Auto 0.1 X10*3/uL (0.0-0.2); Basophils Percent Auto 0.6 % (0-2); Eosinophils Absolute Auto 0.1 X10*3/uL (0.0-0.4); Eosinophils Percent Auto 1.7 % (0-4); Hematocrit 29.8 % (37.0-47.0); Hemoglobin 9.2 g/dl (12.0-16.0); Imm Gran Abs Auto 0.16 X10*3/uL (0.00-0.03); Lymphocytes Percent Auto 24.8 % (20-40); Mean Corpuscular HGB Conc 30.9 g/dl (31.0-35.0); Mean Corpuscular Hemoglobin 29.3 pg (27.0-33.0); Mean Corpuscular Volume 94.9 fL (80.0-98.0); Mean Platelet Volume 12.3 fL (9.4-12.3); Monocytes Absolute Auto 0.6 X10*3/uL (0.1-1.2); Monocytes Percent Auto 7.9 % (2-11); Neutrophils Absolute Auto 5.1 x10*3/uL (2.0-8.3); Platelet Count 140 X10*3/uL (160-400); Red Blood Count 3.14 X10*6/uL (4.20-5.50); Red Cell Distribution Width 16.2 % (11.0-16.0); White Blood Count 8.1 X10*3/uL (4.8-10.8)
[2025-03-01 13:24] LABS: Anion Gap 11 (12-20); Blood Urea Nitrogen 26 mg/dL (9-16); Carbon Dioxide 29 mmol/L (22-29); Chloride 105 mmol/L (96-108); Estimated Glomerular Filt Rate 35; Potassium 4.9 mmol/L (3.3-5.1); Sodium 140 mmol/L (135-145)
--- OUTSIDE RECORDS SUMMARY | 2025-03-01 13:51 | XMS_ITS | Clinical Summary ---
Author Organization [facility] Facility Address [address] [address] Care Team Providers Care Winchman/Crane Operator Name Role Phone Ricardo Breen MD Primary Care Provider [phone] Medications spironolactone (ALDACTONE) 25 MG tablet TAKE [...] age to complete this topic Care Teams Winchman/Crane Operator Relationship Specialty Start Date End Date Ricardo Breen MD [address] [place] [address] [address] [place], [place] PCP - General 09/19/20
== END 2025-03-01 12:31 | disposition home or self-care (01) ==
LOC: HO.10HDL 12:30
PROVIDERS: Visit Provider Family Medicine
DX: I10 Essential (primary) hypertension (principal); D64.9 Anemia, unspecified
CPT/HCPCS: 36415; 80051; 82565; 84520; 85025

== ENCOUNTER → 2025-03-02 13:29 | Outpatient (BNVA) | payer MEDICARE, OTHER, SELFPAY | PROVIDERS: PCP Family Medicine; Visit Provider Urology | DX: Z46.6 Encounter for fitting and adjustment of urinary device (principal); N31.9 Neuromuscular dysfunction of bladder, unspecified | CPT/HCPCS: 51705 ==

== ENCOUNTER 2025-03-09 13:30 | Outpatient (RCR) | payer MEDICARE, OTHER, SELFPAY ==
[2025-02-19 09:24] VITALS: BP 154/43; PULSE 56; RESP 16; TEMP 36.6; O2SAT 97
[2025-02-19 09:33] VITALS: BMI 33.5
--- NOTE | 2025-02-19 09:59 | HO.INF ---
[facility] in [place] called. per nurse, last vanco trough was done on 02/15 with a result of 18.2. vanco trough and creatinine level ordered and drawn; awaiting result before starting vanco infusion.
[2025-02-19 10:05] LABS: Creatinine Clr Calc Pharmacy 32.1; Estimated Glomerular Filt Rate 32
--- NOTE | 2025-02-19 10:39 | HO.INF ---
pharmacy aware of critical vanco trough result. pt made aware she will likely not be receiving her vanco dose today d/t result; verbalizes understanding and agreeable. pharmacy will call back shortly regarding plan for next dose.
--- NOTE | 2025-02-19 11:34 | HO.INF ---
pt not dosed today d/t vanco trough results. per pharmacy, pt will have vanco level redrawn tomorrow to reassess. intern product marketing manager humble made aware of plan for weekend.
[2025-02-20 09:46] VITALS: BP 123/40; PULSE 100; RESP 14; TEMP 36.4; O2SAT 100; BMI 33.5
--- NOTE | 2025-02-20 11:26 | HE.PHANOTE ---
Addendum entered by Loretta Lopez [facility] 02/20/25 11:48: Just spoke to Jacquelyn MC in PACU. Provider called Jacquelyn and gave her a telephone order to place a vancomycin consult. Jacquelyn MC is unable to put in the consult thus this [facility] will put it in on her behalf. Consult is in patients best interest as dose does need to be adjusted. Original Note: RE CAROLYN Patient is currently in PACU. PRIMER INSPECTOR called pharmacy regarding patients vancomycin dosing. Patient is here over the weekend to receive vancomycin. Level was 26 yesterday, today it is 16. Last dose was 1250 mg two days ago. Dose was held on 02/19 due to high level. Currently waiting on Scr. Dr Ricardo Breen placed an infusion center order as well as completed a paper prescription for 1250 mg Q24H. However provider did not include a vancomycin consult which is needed for pharmacy to be able to intervene with doses under p&t. is not on tigertext and office is closed. I have contacted the marketing operations analyst provider however have not heard back. The dose of 1250 mg is no appropriate fir the patient at this time, this will most definitely result with a supra therapeutic level.
[2025-02-20 11:53] LABS: Creatinine Clr Calc Pharmacy 34.9; Estimated Glomerular Filt Rate 35
[2025-02-20] MEDS: Heparin Sodium,Porcine Flush 50 UNITS, 0.9 % Sodium Chloride Flush 5 ML IVFLUSH (13:09)
[2025-02-20 13:13] VITALS: BP 122/78; PULSE 67; RESP 20; TEMP 36.1; O2SAT 99
[2025-02-21 09:50] VITALS: BP 146/37; PULSE 55; RESP 18; TEMP 36.2; O2SAT 97
[2025-02-21 10:34] LABS: Creatinine Clr Calc Pharmacy 35.1; Estimated Glomerular Filt Rate 36
[2025-02-21] MEDS: Heparin Sodium,Porcine Flush 50 UNITS, 0.9 % Sodium Chloride Flush 5 ML IVFLUSH (12:48)
[2025-02-21 12:54] VITALS: BP 123/79; PULSE 76; RESP 20; TEMP 36.6; O2SAT 98
[2025-02-22 12:12] VITALS: BP 132/48; PULSE 55; RESP 18; TEMP 37.1; O2SAT 96
[2025-02-22 12:21] LABS: Creatinine Clr Calc Pharmacy 33.9; Estimated Glomerular Filt Rate 34
--- NOTE | 2025-02-22 12:36 | HE.PHANOTE ---
VANCO DOSE ADJUSTMENT BASED ON SCR DOSE CONTINUED AT 750 Q 24H. NEXT LEVEL BEFORE DOSE ON 02/23. TROUGH ADDED 02/23 @ 1000
[2025-02-22] MEDS: Heparin Sodium,Porcine Flush 50 UNITS, 0.9 % Sodium Chloride Flush 5 ML IVFLUSH (14:14)
[2025-02-23 10:15] VITALS: BP 147/50; PULSE 55; RESP 16; TEMP 36.6; O2SAT 97
[2025-02-23 10:43] LABS: Creatinine Clr Calc Pharmacy 35.4; Estimated Glomerular Filt Rate 36
[2025-02-23] MEDS: Heparin Sodium,Porcine Flush 50 UNITS, 0.9 % Sodium Chloride Flush 5 ML IVFLUSH (12:31)
[2025-02-24 12:08] VITALS: BP 143/49; PULSE 55; RESP 16; TEMP 36.7; O2SAT 98
[2025-02-24 12:35] LABS: Creatinine Clr Calc Pharmacy 35.1; Estimated Glomerular Filt Rate 36
[2025-02-24] MEDS: Heparin Sodium,Porcine Flush 50 UNITS, 0.9 % Sodium Chloride Flush 5 ML IVFLUSH (14:15)
[2025-02-25 10:23] VITALS: BP 132/40; PULSE 54; RESP 18; TEMP 36.6; O2SAT 97
[2025-02-25 10:49] LABS: Creatinine Clr Calc Pharmacy 33.1; Estimated Glomerular Filt Rate 33
[2025-02-25] MEDS: Heparin Sodium,Porcine Flush 50 UNITS, 0.9 % Sodium Chloride Flush 5 ML IVFLUSH (12:12)
[2025-02-26 07:00] VITALS: BP 140/37; PULSE 56; RESP 16; TEMP 36.6; O2SAT 94
[2025-02-26 07:46] LABS: Creatinine Clr Calc Pharmacy 33.1; Estimated Glomerular Filt Rate 33
[2025-02-26 07:51] LABS: Creatinine Clr Calc Pharmacy 33.5; Estimated Glomerular Filt Rate 34
[2025-02-26] MEDS: Heparin Sodium,Porcine Flush 50 UNITS, 0.9 % Sodium Chloride Flush 5 ML IVFLUSH (09:05)
[2025-02-27 09:36] VITALS: BP 153/43; PULSE 60; RESP 17; TEMP 36.4; O2SAT 98
[2025-02-27 10:02] LABS: Creatinine Clr Calc Pharmacy 31.4; Estimated Glomerular Filt Rate 31
[2025-02-27] MEDS: Heparin Sodium,Porcine Flush 50 UNITS, 0.9 % Sodium Chloride Flush 5 ML IVFLUSH (11:45)
[2025-02-27 11:49] VITALS: BP 138/42; PULSE 58; RESP 16; TEMP 36.9; O2SAT 97
[2025-02-28 09:41] VITALS: BP 137/44; PULSE 56; RESP 16; TEMP 37.4; O2SAT 97
[2025-02-28 10:17] LABS: Creatinine Clr Calc Pharmacy 33.9; Estimated Glomerular Filt Rate 34
[2025-02-28] MEDS: Heparin Sodium,Porcine Flush 50 UNITS, 0.9 % Sodium Chloride Flush 5 ML IVFLUSH (12:03)
[2025-03-01 07:27] VITALS: BP 140/40; PULSE 54; RESP 16; TEMP 36.6; O2SAT 95
[2025-03-01 08:03] LABS: Creatinine Clr Calc Pharmacy 35.6; Estimated Glomerular Filt Rate 36
[2025-03-01] MEDS: Heparin Sodium,Porcine Flush 50 UNITS, 0.9 % Sodium Chloride Flush 5 ML IVFLUSH (10:17)
[2025-03-02 10:07] VITALS: BP 149/37; PULSE 60; RESP 18; TEMP 36.7; O2SAT 97
[2025-03-02 10:48] LABS: Creatinine Clr Calc Pharmacy 37.5; Estimated Glomerular Filt Rate 39
[2025-03-02] MEDS: Heparin Sodium,Porcine Flush 50 UNITS, 0.9 % Sodium Chloride Flush 5 ML IVFLUSH (12:08)
[2025-03-03 10:48] VITALS: BP 137/43; PULSE 55; RESP 16; TEMP 36.7; O2SAT 96
[2025-03-03 11:15] LABS: Creatinine Clr Calc Pharmacy 34.2; Estimated Glomerular Filt Rate 35
[2025-03-03] MEDS: Heparin Sodium,Porcine Flush 50 UNITS, 0.9 % Sodium Chloride Flush 5 ML IVFLUSH (12:55)
[2025-03-04 09:15] VITALS: BP 132/45; PULSE 60; RESP 16; TEMP 36.4; O2SAT 96
[2025-03-04 09:42] LABS: Creatinine Clr Calc Pharmacy 33.2; Estimated Glomerular Filt Rate 34
[2025-03-04] MEDS: Heparin Sodium,Porcine Flush 50 UNITS, 0.9 % Sodium Chloride Flush 5 ML IVFLUSH (11:16)
[2025-03-05 11:57] VITALS: BP 131/47; PULSE 52; RESP 16; TEMP 36.6; O2SAT 99
[2025-03-05 12:24] LABS: Creatinine Clr Calc Pharmacy 35.4; Estimated Glomerular Filt Rate 36
[2025-03-05] MEDS: Heparin Sodium,Porcine Flush 50 UNITS, 0.9 % Sodium Chloride Flush 5 ML IVFLUSH (13:48)
[2025-03-06 09:35] VITALS: BP 151/47; PULSE 59; RESP 20; TEMP 36.7; O2SAT 96
[2025-03-06 10:52] LABS: Creatinine Clr Calc Pharmacy 31.4; Estimated Glomerular Filt Rate 31
[2025-03-07 09:48] VITALS: BP 135/43; PULSE 55; RESP 18; TEMP 36.7; O2SAT 93
[2025-03-07 10:27] LABS: Creatinine Clr Calc Pharmacy 33.9; Estimated Glomerular Filt Rate 34
[2025-03-07] MEDS: Heparin Sodium,Porcine Flush 50 UNITS, 0.9 % Sodium Chloride Flush 5 ML IVFLUSH (11:42)
[2025-03-07 11:48] VITALS: BP 142/56; PULSE 57; RESP 18; TEMP 36.8; O2SAT 95
[2025-03-08 12:25] VITALS: BP 143/44; PULSE 53; RESP 16; TEMP 36.7; O2SAT 97
[2025-03-08 12:55] LABS: Creatinine Clr Calc Pharmacy 52.5; Estimated Glomerular Filt Rate 57
[2025-03-08] MEDS: Heparin Sodium,Porcine Flush 50 UNITS, 0.9 % Sodium Chloride Flush 5 ML IVFLUSH (14:56)
[2025-03-09 13:12] VITALS: BP 144/81; PULSE 56; RESP 18; TEMP 36.1; O2SAT 97
[2025-03-09 13:36] LABS: Creatinine Clr Calc Pharmacy 38.1; Estimated Glomerular Filt Rate 39
== END 2025-03-09 16:00 | disposition home or self-care (01) ==
LOC: HO.INF 13:30
PROVIDERS: Visit Provider Family Medicine
DX: T84.52XD Infection and inflammatory reaction due to internal left hip prosthesis, subsequent encounter (principal)
CPT/HCPCS: 36415; 80202; 82565; 96365; 96366; 96374; J1642; J3370; J3371; J3373

== ENCOUNTER → 2025-03-10 13:19 | Outpatient (REF) | payer MEDICARE, OTHER, SELFPAY ==
--- OUTSIDE RECORDS SUMMARY | 2025-03-10 13:55 | XMS_ITS | Encounter Summary ---
Author Organization [facility] Address [address] [place] [address] Care Team Providers Care Director Of Architecture Name Role Phone Ricardo Breen Primary Care Provider [phone] Encounter Details Date Type Department Care Team (Late st Contact Info) Description 01/25/2025 Results Follow-Up [facility] [address] [facility] 3rd [place] [address] William Hernandez PA [address] [facility] [place] [address] Social History Tobacco Use Types Packs/Day Years Used Date Smoking Tobacco: Never Smokeless Tobacco: Never Alcohol Use Standard Drinks/Week Comments Never 0 (1 standard drink = 0.6 oz pur e alcohol) [facility] Utilities Answer Date Recorded In the past 12 months has e electric, gas, oil, or water company threatened to shut off services in your home? No 01/26/2025 Hunger Vital Sign Answer Date Recorded Within the past 12 months, y ou worried that your food would run out before you got the money to buy more. Never true 01/27/20 25 Within the past 12 months, t he food you bought just didn't last and you didn't have money to get more. Never true 01/26/2025 Transportation Answer Date Recorded In the past 12 months, has l ack of reliable transportation kept you from medical appointments, meetings, work or from getting things needed for daily living? No 01/26/2025 Housing Answer Date Recorded Housing Risk Low 2 01/26/2025 Housing Risk Medium Not on file 01/26/2025 Housing Risk High Not on file 01/26/2025 What is your living situation today? LSSTEADY 01/26/2025 Comments Unknown Sex and Gender Information Value Date Recorded Sex Assigned at Female 01/21/2025 7:55 AM EDT Legal Sex Female 4:43 PM EST Gender Identity Female 01/25/2025 11:49 AM EDT Sexual Orientation Straight 01/25/2025 11 :49 AM EDT documented as of this encounter Plan of Treatment Upcoming Encounters Date Type Department Care Team (Late st Contact Info) Description 04/12/2025 1:30 PM EDT Follow-Up [facility] [address] [place] [address] Murali Hooker MD [address] [place] [address] documented as of this encounter Goals Goal Patient Goal Type Associated Problems Recent Progress Patient-Stated? Author Autogenera gaby Goal Care Plan Autogenerated Problem Rachel Hammonds documented as of this encounter Visit Diagnoses Not on filedocumented in this encounter Additional Health Concerns Active Problems Noted Date Diagnosed Date Autogenerated Problem 01/20/2025 documented as of this encounter Care Teams Director Of Architecture Relationship Specialty Start Date End Date Ricardo Breen [address] [place] [address] [place] [address] PCP - General Internal Medicine 01/26/25 documented as of this encounter
--- OUTSIDE RECORDS SUMMARY | 2025-03-10 13:55 | XMS_ITS | Clinical Summary ---
Author Organization [facility] Facility Address [address] [address] Care Team Providers Care Wood Science Professor Name Role Phone Ricardo Breen MD Primary Care Provider [phone] Medications spironolactone (ALDACTONE) 25 MG tablet TAKE [...] age to complete this topic Care Teams Wood Science Professor Relationship Specialty Start Date End Date Ricardo Breen MD [address] [place] [address] [address] [place], [place] PCP - General 09/19/20
--- OUTSIDE RECORDS SUMMARY | 2025-03-10 13:55 | XMS_ITS | Continuity of Care Document ---
Author Organization [facility] 2 [facility] [address] [place] [address] Phone [phone] Social History Type Date Description Comments Sex [...]
== END ==
LOC: HO.CARD 13:19
PROVIDERS: PCP Internal Medicine; Visit Provider Internal Medicine
DX: I48.0 Paroxysmal atrial fibrillation (principal)
CPT/HCPCS: 93246

== ENCOUNTER → 2025-03-10 13:30 | Outpatient (BNV) | payer MEDICARE, OTHER, SELFPAY | PROVIDERS: PCP Internal Medicine; Visit Provider Internal Medicine | DX: I47.10 Supraventricular tachycardia, unspecified (principal); I49.3 Ventricular premature depolarization | CPT/HCPCS: 93248 ==

== ENCOUNTER 2025-03-15 15:43 | Outpatient (REF) | payer MEDICARE, OTHER, SELFPAY ==
--- OUTSIDE RECORDS SUMMARY | 2024-10-15 10:45 | XMS_ITS ---
Author Organization [facility] Address [address] [facility] [place] [address] Care Team Providers Care Sr. Vendor Management Associate Name Role Phone Ricardo Breen MD Primary Care Provider Unavailab Jeanette Bryson Unavailable [phone] Sylvia Nguyễn Unavailable [phone] Allergies Allergen (clinical drug ingredient) Drug/Non Drug [...] Active Encounters Encounter Location Date Provider Diagnosis [facility] [address] [address] 10/15/2024 Sylvia Nguyễn Plan Of Treatment Next Appt Details Provider Name:Bishnu Cervantes , 03/23/2025 01:45:00 PM, [address] [place] [address], [phone], Progress Notes * Kaitlin BROWN MDOB:[birth year] (79 yo F)Acc No.[id number]:10/15/2024 Progress Note Patient: Kaitlin URIBE Provider: Sid Nguyễn DPM :1945 A ge:79 Y S ex:Female Date:10/15/2024 Address:[address] [place] [address] [place], [place] [phone] Pcp:Ricardo Breen MD Subjective: * Chief Complaints: * 1 . [...] 0 10/15/2024 Generated for Jeny Trent/Pallavi on: 03/15/2025 03:51 PM EDT
--- OUTSIDE RECORDS SUMMARY | 2025-03-15 15:51 | XMS_ITS | Continuity of Care Document ---
Author Organization [facility] [address] [facility] [address] [place] [address] Phone [phone] Social History Type Date Description Comments Sex [...]
--- OUTSIDE RECORDS SUMMARY | 2025-03-15 15:51 | XMS_ITS | Encounter Summary ---
Author Organization [facility] Address [address] [place] [address] Care Team Providers Care Registered Route Associate Name Role Phone Ricardo Breen Primary Care Provider [phone] Encounter Details Date Type Department Care Team (Late st Contact Info) Description 01/25/2025 Results Follow-Up [facility] [address] [facility] 3rd [place] [address] William Hernandez PA [address] [facility] [place] [address] Social History Tobacco Use Types Packs/Day Years Used Date Smoking Tobacco: Never Smokeless Tobacco: Never Alcohol Use Standard Drinks/Week Comments Never 0 (1 standard drink = 0.6 oz pur e alcohol) [facility] Utilities Answer Date Recorded In the past [...] Info) Description 04/12/2025 1:30 PM EDT Follow-Up [facility] [address] [place] [address] Murali Hooker MD [address] [place] [address] documented as of this encounter Goals Goal Patient Goal Type Associated Problems Recent Progress Patient-Stated? Author Autogenera gaby Goal Care Plan Autogenerated Problem Rachel Hammonds documented as of this encounter Visit Diagnoses Not on filedocumented in this encounter Additional Health Concerns Active Problems Noted Date Diagnosed Date Autogenerated Problem 01/20/2025 documented as of this encounter Care Teams Registered Route Associate Relationship Specialty Start Date End Date Ricardo Breen [address] [place] [address] [place] [address] PCP - General Internal Medicine 01/26/25 documented as of this encounter
--- OUTSIDE RECORDS SUMMARY | 2025-03-15 15:51 | XMS_ITS | Clinical Summary ---
Author Organization [facility] Facility Address [address] [address] Care Team Providers Care Game Producer Name Role Phone Ricardo Breen MD Primary Care Provider [phone] Medications spironolactone (ALDACTONE) 25 MG tablet TAKE [...] - PCV) 11/10/2014 11/10/2013 Influenza Vaccine (#1) 2025 Pneumococcal Vaccine: Peds ( 0 to 5 Years) and At-Risk Patients (6 to 49 Years) Discontinued 11/10/2013 Hepatitis B Vaccine Aged Out No longe r eligible based on patient's age to complete this topic Care Teams Game Producer Relationship Specialty Start Date End Date Ricardo Breen MD [address] [place] [address] [address] [place], [place] PCP - General 09/19/20
== END 2025-03-15 15:44 | disposition home or self-care (01) ==
LOC: HO.LNP 15:43
PROVIDERS: Visit Provider Urology
DX: R33.9 Retention of urine, unspecified (principal)
CPT/HCPCS: 87086; 87088; 87186

== ENCOUNTER → 2025-03-25 12:50 | Outpatient (BNVA) | payer MEDICARE, OTHER, SELFPAY | PROVIDERS: PCP Family Medicine; Visit Provider Urology | DX: Z46.6 Encounter for fitting and adjustment of urinary device (principal); N31.9 Neuromuscular dysfunction of bladder, unspecified | CPT/HCPCS: 51705 ==

== ENCOUNTER → 2025-04-14 13:13 | Outpatient (BNVA) | payer MEDICARE, OTHER, SELFPAY | PROVIDERS: PCP Family Medicine; Visit Provider Urology | DX: Z46.6 Encounter for fitting and adjustment of urinary device (principal); N31.9 Neuromuscular dysfunction of bladder, unspecified | CPT/HCPCS: 51705 ==

== ENCOUNTER 2025-04-15 10:47 | Outpatient (AMB) | payer MEDICARE, OTHER, SELFPAY ==
--- NOTE | 2025-04-15 10:50 | MHC.PC.OV ---
Vital Signs 04/15/25 11:03 04/15/25 11:05 04/15/25 11:05 Height 5 ft 4 in Weight 204 lb BP 148/58 H Blood Pressure Location Lt brachial Position Sitting Pulse 50 Pulse Source Pulse Oximeter Temp 97.2 F Temp Source Temporal Artery Scan Pulse Oximetry (%) 95 Oxygen Delivery Method Room Air Intake Visit Reasons: 3 MO F/UP -VELÁZQUEZ PT - NEEDS DR LUNA Smt Machine Operator Required: No Accompanied by: Self / Same As Patient Allergies amoxicillin (AMOXICILLIN) Allergy (Severe, Verified 04/15/25 10:50) stroke, blood clots ciprofloxacin (From CIPRO) Allergy (Severe, Verified 04/15/25 10:50) ANAPHYLAXIS Iodinated Contrast Media (IV DYE, IODINE CONTAINING CONTRAST ) Allergy (Severe, Verified 04/15/25 10:50) HIVES levofloxacin Allergy (Severe, Verified 04/15/25 10:50) Anaphylaxis liraglutide Allergy (Severe, Verified 04/15/25 10:50) Headache Penicillins Allergy (Severe, Verified 04/15/25 10:50) stroke, blood clots FREYA Inhibitors Allergy (Intermediate, Verified 04/15/25 10:50) Cough ARB-Angiotensin Receptor Antagonist Allergy (Intermediate, Verified 04/15/25 10:50) Cough cefpodoxime Allergy (Intermediate, Verified 04/15/25 10:50) Dizziness, nausea doxazosin Allergy (Intermediate, Verified 04/15/25 10:50) Shortness of Breath fluticasone (Advair Diskus) Allergy (Intermediate, Verified 04/15/25 10:50) Anxiety gabapentin (From Neurontin) Allergy (Intermediate, Verified 04/15/25 10:50) Headache hydralazine Allergy (Intermediate, Verified 04/15/25 10:50) Shortness of Breath latex Allergy (Intermediate, Verified 04/15/25 10:50) Hives linezolid Allergy (Intermediate, Verified 04/15/25 10:50) Nausea and Vomiting meloxicam Allergy (Intermediate, Verified 04/15/25 10:50) Unknown salmeterol (Advair Diskus) Allergy (Intermediate, Verified 04/15/25 10:50) Anxiety Tetanus Vaccines and Toxoid Allergy (Intermediate, Verified 04/15/25 10:50) Swelling torsemide Allergy (Intermediate, Verified 04/15/25 10:50) Shortness of Breath cephalexin (Keflex) Allergy (Mild, Verified 04/15/25 10:50) Nausea Tobacco use date assessed: 04/15/25 HPI HPI Comments History of Present Illness Details Kaitlin is a 79 year old female with a past medical history of diabetes, hypertension, dyslipidemia, CAD s/p CABG, OAB, CLL, h/o CVA, MILDRED presenting to [facility] Recently hospitalized for left hip prosthesis infection-[place] Required administrative services specialist antibiotics. Diabetes: On metformin 1000mg twice daily. Last A1C at goal. She is due CV: Follows with Dr Agustin. GI: Follows with [facility] Urology: Follows with urology Heme/Onc: Follows with Dr Worthy. CLL. MSK: s/p left hip knee replacement complicated by infection Patient has been having issues with difficulty walking. She has vertigo with frequent movement. Endorses bilateral LE numbness. No increased back pain. Ongoing. Mammo scheduled for Dec Colonoscopy will be scheduled through GI ROS CONSTITUTIONAL: Denies weight loss, fever and chills. HEENT: Denies changes in vision and hearing. RESPIRATORY: Denies SOB and cough. CV: Denies palpitations and CP GI: Denies abdominal pain, nausea, vomiting and diarrhea. : Denies dysuria and urinary frequency. MSK: Denies new myalgia and joint pain. SKIN: Denies rash and pruritus. NEUROLOGICAL: Denies headache PSYCHIATRIC: Denies recent changes in mood. PHYSICAL EXAM: GENERAL: Alert and oriented x 3. NAD EYES: EOMI. Anicteric. HENT: Moist mucous membranes. No scleral icterus. No cervical lymphadenopathy. LUNGS: Clear to auscultation bilaterally. CARDIOVASCULAR: Regular rate and rhythm. No murmur. No JVD. ABDOMEN: Soft, non-tender +bs EXTREMITIES: No edema. Non-tender. SKIN: No rashes or lesions. Warm. NEUROLOGIC: No focal neurological deficits. CN II-XII grossly intact PSYCHIATRIC: Cooperative. Appropriate mood and affect [facility] Medical History PAF (paroxysmal atrial fibrillation) Suprapubic catheter Neuropathy Osteoarthritis Morbid obesity Allergy to multiple antibiotics Depression Arthritis of left hip Wears dentures Neurogenic urinary bladder disorder History of blood transfusion History of CVA (cerebrovascular accident) Seasonal allergies PONV (postoperative nausea and vomiting) Diabetes with neurologic complications Type 2 diabetes mellitus with unspecified complications Anemia CLL (chronic lymphocytic leukemia) Sleep apnea Arthritis Fibromyalgia Hypercholesterolemia Hypertension History of bilateral breast cancer Urinary retention with incomplete bladder emptying Surgical History History of cervical discectomy History of open heart surgery (~01/31/24) History of total left hip replacement S/P Botox injection History of suprapubic catheter S/P left breast biopsy History of esophagogastroduodenoscopy (EGD) Hx of colonoscopy History of bladder repair surgery History of total hysterectomy S/P breast biopsy, right History of back surgery History of biopsy of bladder Family History Mother Breast cancer Father Heart disease Father Lung cancer Mother Colon cancer Brother Pancreatic cancer Social History Household Members: Spouse Housing: House Housing Other:: has chair lift for second floor access Are you a primary healthcare associate to a significant other at home: No Do you presently have visiting nurse or other home services: Yes (visiting nurse-recent in patient for UTI) Alcohol intake: never Comment: patient refused telesiter,removed per pt request Patient Tobacco Use Status: Never used Tobacco e-Cigarette/Vaping Use: Never Used Advance Directives Date on File: 07/30/23 service: No Current occupational status: retired Female Reproductive History Menstrual Age of Menarche: 15 Questionnaire Thrive Questionnaire Date Thrive assessed: 10/29/24 Physical exam (Primary Care) Vital Signs: Last Vital Signs Temp 97.2 F 04/15/25 11:03 Pulse 50 04/15/25 11:03 BP 148/58 H 04/15/25 11:05 Pulse Ox 95 04/15/25 11:03 Oxygen Delivery Method Room Air 04/15/25 11:03 Tobacco/Smoking Status: Tobacco use Status Tobacco use date assessed 04/15/25 04/15/25 10:52 Patient Tobacco Use Status Never used Tobacco 04/15/25 10:52 e-Cigarette/Vaping Use Never Used 04/15/25 10:52 Thrive Assessment: Date of Thrive Assessment Date Thrive assessed 10/29/24 04/15/25 10:52 Coding Level of Care Code New Pt Level 4 (81697) Complex EM visit Add On G2211 Diagnoses Essential hypertension I10 Atherosclerotic cardiovascular disease I25.10 PAF (paroxysmal atrial fibrillation) I48.0 Type 2 diabetes mellitus with other circulatory complication, without long-term current use of insulin E11.59 Diabetes mellitus type: type 2 Diabetes mellitus halfway insulin use: without halfway use Diabetes mellitus complication status: with circulatory complication Diabetes mellitus complication detail: with other circulatory complications 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, sequela T84.52XS Encounter type: sequela Assessment & Plan Assessment & Plan (1) Essential hypertension: Code(s): I10 - Essential (primary) hypertension Category: Medical (2) Atherosclerotic cardiovascular disease: Code(s): I25.10 - Atherosclerotic heart disease of [place] coronary artery without angina pectoris Category: Medical (3) PAF (paroxysmal atrial fibrillation): Code(s): I48.0 - Paroxysmal atrial fibrillation Category: Medical (4) Diabetes: Code(s): E11.9 - Type 2 diabetes mellitus without complications Category: Medical Qualifiers: Diabetes mellitus type: type 2 Diabetes mellitus administrative services specialist insulin use: without administrative services specialist use Diabetes mellitus complication status: with circulatory complication Diabetes mellitus complication detail: with other circulatory complications Qualified Code(s): E11.59 - Type 2 diabetes mellitus with other circulatory complications (5) Infected prosthesis of left hip: Code(s): T84.52XA - Infection and inflammatory reaction due to internal left hip prosthesis, initial encounter Category: Medical Qualifiers: Encounter type: sequela Qualified Code(s): T84.52XS - Infection and inflammatory reaction due to internal left hip prosthesis, sequela Plan 79 y/o to establish care past medical, surgical, social reviewed vertigo, balance issues-PT for strength and gait training, PT for vestibular therapy neuropathy, diabetes-update labs Orders: Orders PT Evaluation and Treatment 04/15/25 R26.89 - Other abnormalities of gait and mobility Hemoglobin A1c 04/15/25 E11.9 - Type 2 diabetes mellitus without complications TSH reflex Free T4 04/15/25 E11.9 - Type 2 diabetes mellitus without complications Comprehensive Met. Panel 04/15/25 E11.9 - Type 2 diabetes mellitus without complications PT Evaluation and Treatment 04/15/25 H81.10 - Benign paroxysmal vertigo, unspecified ear Vitamin B12 and Folate 04/15/25 E11.9 - Type 2 diabetes mellitus without complications
[2025-04-15 11:03] VITALS: PULSE 50; TEMP 36.2; O2SAT 95
[2025-04-15 11:05] VITALS: BP 148/58
--- OUTSIDE RECORDS SUMMARY | 2025-04-15 11:28 | XMS_ITS | Clinical Summary ---
Author Organization [facility] Facility Address [address] [address] Care Team Providers Care Power Plant Engineer Name Role Phone Ricardo Breen MD Primary Care Provider [phone] Medications spironolactone (ALDACTONE) 25 MG tablet TAKE [...] age to complete this topic Care Teams Power Plant Engineer Relationship Specialty Start Date End Date Ricardo Breen MD [address] [place] [address] [address] [place], [place] PCP - General 09/19/20
--- OUTSIDE RECORDS SUMMARY | 2025-04-15 11:28 | XMS_ITS | Encounter Summary ---
Author Organization [facility] Address [address] [place] [address] Phone Care Team Providers Care Coil Strapper Name Role Phone Kathy Connor Primary Care Provider [phone] Ricardo Breen MD Primary Care Provider [phone] Encounter Details Date Type Department Care Team (Late st Contact Info) Description 03/11/2018 Procedure [facility], [address] [address] Social History Tobacco Use Types Packs/Day Years Used Date Smoking Tobacco: Never Assessed Comments Unknown Sex and Gender Information Value Date Recorded Sex Assigned at Not on file Legal Sex Female 10:07 PM EDT Gender Identity Not on file Sexual Orientation Not on file documented as of this encounter Last Filed Vital Signs Vital Sign Reading Time Taken Comments Blood Pressure - - Pulse - - Temperature - - Respiratory Rate - - Oxygen Saturation - - Inhaled Oxygen Concentration - - Weight 90.7 kg (200 lb) 03/13/2018 6:17 PM EDT Height 165.1 cm (5' 5 ) 03/13/2018 6:17 PM EDT Body Mass Index 33.28 03/13/2018 6:17 PM EDT documented in this encounter Plan of Treatment Not on file documented as of this encounter Visit Diagnoses Not on filedocumented in this encounter Care Teams Coil Strapper Relationship Specialty Start Date End Date Kathy Connor PA [email or web address] PCP - General 03/11/18 04/07/18 Ricardo Breen MD [address] [place] [address] [address] [place], [place] [id number] PCP - General Internal Medicine 04/08/18 documented as of this encounter Additional Source Comments The information contained in this document represents components of the legal health record. It is not the complete legal health record.[facility]
--- OUTSIDE RECORDS SUMMARY | 2025-04-15 11:28 | XMS_ITS | Continuity of Care Document ---
Author Organization [facility] [address] [place] [address] Phone [phone] Social History Type Date Description Comments Sex [...]
--- OUTSIDE RECORDS SUMMARY | 2025-04-15 11:28 | XMS_ITS | Encounter Summary ---
Author Organization [facility] Address [address] [place] [address] Care Team Providers Care Network Security Engineer Name Role Phone Jamshid Ricardo Jayla Primary Care Provider Encounter Details Date Type Department Care Team (Late st Contact Info) Description 02/10/2025 Documentation [facility] [address] [place] [address] Rachel Anaya Social History Tobacco Use Types Packs/Day Years Used Date Smoking Tobacco: Never Smokeless Tobacco: Never Alcohol Use Standard Drinks/Week Comments Never 0 (1 standard drink = 0.6 oz pur e alcohol) [facility] Utilities Answer Date Recorded In the past 12 months has th e electric, gas, oil, or water company [...] Care Team (Late st Contact Info) Description 07/14/2025 3:00 PM EST Follow-Up [facility] [address] [place] [address] Murali Hooker MD [address] [place] [address] documented as of this encounter Goals Goal Patient Goal Type Associated Problems Recent Progress Patient-Stated? Author Autogenera gaby Goal Care Plan Autogenerated Problem Bhakti Villatoro Rachel documented as of this encounter Visit Diagnoses Not on filedocumented in this encounter Additional Health Concerns Active Problems Noted Date Diagnosed Date Autogenerated Problem 01/20/2025 documented as of this encounter Care Teams Network Security Engineer Relationship Specialty Start Date End Date Ricardo Breen [address] [place] [address] [place] [address] PCP - General Internal Medicine 01/26/25 documented as of this encounter
--- OUTSIDE RECORDS SUMMARY | 2025-04-15 11:28 | XMS_ITS | Patient Health Record ---
Author Organization [facility] Address [address] [place] [address] Care Team Providers Care Ferry Engineer Name Role Phone Cristina Damon Primary Care Provider UnavailJeanette Santoro Unavailable [phone] Prosper Henson Unavailable [phone] Bishnu Cervantes Unavailable [phone] Sylvia Nguyễn Unavailable [phone] Allergies Allergen (clinical drug ingredient) Drug/Non Drug [...] Lab: Notes/Report: HEMOGLOBIN A1C % (HH) 6.8 HEMOGLOBIN A1C (GLYCOHEMOGLO BIN) Reviewed date:03/23/2025 01:45:26 PM Interpretation: Performing Lab: Notes/Report: HEMOGLOBIN A1C % (HH) 6.8 Reason For Referral No Information Medications Medication SIG (Take, Route, Frequency, Duration) Notes Start Date End Date Status Imbruvica Active Furosemide Active Victoza Not-Taking Flexeril Active Vitamin D 1000 UNIT 1 tablet Orally Once a day Active Avinza Active Omeprazole 20 MG 1 capsule Orally Onc e a day Active Pregabalin 150 MG 1 capsule Orally Onc e a day Active Nifedical XL Active Extra Depth Orthopedic Shoes (1 Pair) with Customized Heat Molded Multidensity Innersoles (3 Pair) Dx: NIDDM/Polyneuropathy (E11.42), Hammertoe Foot Deformity (M20.41,M20.42), Preulcerative Skin Lesion(s) (L85.1); Duration: 365 days 03/23/2025 Active metFORMIN HCl Active Lorazepam prn Active DULoxetine HCl 30 MG 1 capsule Orally On ce a day Active CeleXA 10 MG 1 tablet Orally Once a day Active Sulindac 150 MG 1 tablet with food Orally Twice a day Active Carvedilol 25 MG Orally Act ricarda Spironolactone 25 MG 1 tablet with food Orally Once a day Active Calcium Active Simvastatin 40 MG 1 tablet in the even ing Orally Once a day Active Immunizations Vaccine Route Administration Date Status Comme nts Influenza Unknown 05/12/2018 Administered Influenza Unknown 05/10/2021 Administered Influenza Unknown 06/09/2023 Administered Influenza Unknown 06/09/2024 Administered COVID-19 Moderna Vaccine Unknown 05/19/2021 Administered 1st 10/19/2020 2nd 11/24/2020 Social History Tobacco Use: Social History Observation Description Date Details (start date - stop date) Never Smoker NA - NA Tobacco use other than smoking: Question Answer Notes Are you an other tobacco user? No Tobacco Control (Standard) Question Answer Notes Tobacco use: Nonsmoker Additional Findings: Tobacco non-user Current no nsmoker AUDIT-C (Standard) Question Answer Notes Did you have a drink containing alcohol in the p ast year? No Points 0 Interpretation Negative Problems Problem Type SNOMED Code ICD Code Onset Dates Problem Status W/U Status Risk Notes Problem Acquired hammer toe of right foot (5127273275556255 ) Other hammer toe(s) (acquired), right foot (M20.41) Active confirmed Problem Acquired hammer toe of left foot (9835904941471094 ) Other hammer toe(s) (acquired), left foot (M20.42) Active confirmed Problem Polyneuropathy due to type 2 diabetes mellitus (700956238) Type 2 diabetes mellitus with diabetic polyneuropathy (E11.42) Active confirmed Vital Signs Blood pressure diastolic 60 mm Hg 03/23/2025 Height 5 ft 4 in in 03/23/2025 Blood pressure systolic 140 mm Hg 03/23/2025 Weight 195 lbs 03/23/2025 BMI 33.47 kg/m2 03/23/2025 Procedures Procedure Date Ordered Date Performed Result Body Sit e 79386-SWYLTWJ NAIL, 6 OR MORE 07/16/2024 N/A 00514-DZTE SKIN LESIONS, 2 TO 4 07/16/2024 N/A 94388-GXMRUFB NAIL, 6 OR MORE 03/23/2025 N/A 47207-XPNN SKIN LESIONS, 2 TO 4 03/23/2025 N/A Encounters Encounter Location Date Provider Diagnosis [address] [address] 04/16/2024 Prosper Henson Type 2 diabetes mellitus with diabetic polyneuropathy E11.42 ; Tinea unguium B35.1 ; Pain in left foot M79.672 ; Primary osteoarthritis, left ankle and foot M19.072 ; Pain in left toe(s) M79.675 ; Pain in right toe(s) M79.674 ; Hallux rigidus, left foot M20.22 ; Hallux valgus (acquired), left foot M20.12 and Localized edema R60.[address] [address] 07/16/2024 Sylvia Nguyễn Type 2 diabetes mellitus with diabetic polyneuropathy E11.42 and Tinea unguium B35.[address] [address] 10/23/2024 Jeanette Messer Type 2 diabetes mellitus with diabetic polyneuropathy E11.42 ; 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 ; Tinea unguium B35.1 ; Pain in right ankle and joints of right foot M25.571 ; Other hammer toe(s) (acquired), right foot M20.41 ; Other hammer toe(s) (acquired), left foot M20.42 and Local edema R60.[address] [address] 03/23/2025 Bishnu Cervantes Type 2 diabetes mellitus with diabetic polyneuropathy E11.42 ; Tinea unguium B35.1 ; Other hammer toe(s) (acquired), right foot M20.41 and Other hammer toe(s) (acquired), left foot M20.42 [facility] [place] [address] [place] [address] 10/14/2024 [facility] [address] [place] [address] 10/28/2024 Jeanette Messer [facility] [address] 12/18/2024 Jeanette Perica [facility] [address] 12/18/2024 Jeanette Chenga [facility] [address] 03/23/2025 Jeanette Messer Assessments Encounter Date Diagnosis (ICD [...] with: LOW PURINE DIET.pdf (LOW PURINE DIET.pdf) 03/23/2025 Type 2 diabetes mellitus with diabetic polyneuropathy (ICD-10 - E11.42) 03/23/2025 Tinea unguium (ICD-10 - B35.1) 03/23/2025 Other hammer toe(s) (acquired), right foot (ICD-10 - M20.41) Patient Educated with: DIABETIC FOOT CARE INSTRUCTIONS. pdf (DIABETIC FOOT CARE INSTRUCTIONS. pdf) 10/23/2024 Tinea unguium (ICD-10 - B35.1) 04/16/2024 Tinea unguium (ICD-10 - B35.1) 04/16/2024 Pain in left foot (ICD-10 - M79.672) 10/23/2024 Pain in right ankle and joints of right foot (ICD-10 - M25.571) 03/23/2025 Other hammer toe(s) (acquired), left foot (ICD-10 - M20.42) 10/23/2024 Other hammer toe(s) (acquired), right foot [...] X ray : Foot, right 3V 10/23/2024 02657-ZRPTRYD NAIL, 6 OR MORE 07/16/2024 90519-YPFDZYD NAIL, 6 OR MORE 03/23/2025 78970-CPENQHU NAIL, 1-5 05/05/2018 80861-HBIKJFH NAIL, 1-5 07/21/2018 98916-MXWMQLP NAIL, 1-5 10/13/2018 78081, J0702- INJECT or DRAIN, JOINT/BUR SA 05/05/2018 30539-FROR SKIN LESIONS, OVER 4 05/05/20 18 11182-UYNS SKIN LESIONS, OVER 4 07/21/20 18 30288-JYEV SKIN LESIONS, OVER 4 01/13/20 19 94879-PXFS SKIN LESIONS, OVER 4 04/13/20 19 34466-ICII SKIN LESIONS, OVER 4 10/13/19 19 42455-EVMJ SKIN LESIONS, OVER 4 12/06/19 21 53984-TIWW SKIN LESIONS, OVER 4 05/08/20 21 47292-XRWY SKIN LESIONS, OVER 4 10/18/19 22 31961-MYAQ SKIN LESIONS, OVER 4 08/01/20 20 56379-KOAX SKIN LESIONS, OVER 4 03/30/20 20 41986-UIJM SKIN LESIONS, OVER 4 07/13/20 19 25751-YXMK SKIN LESIONS, OVER 4 10/12/19 20 22919-WLVU SKIN LESIONS, 2 TO 4 07/16/20 24 72759-DBDB SKIN LESIONS, 2 TO 4 02/20/20 18 58354-LUYU SKIN LESIONS, 2 TO 4 03/23/20 25 02618, J8921-RKULB/INJECT, JOINT/BURSA 0 10/13/2018 I4018-XEVOQMDV DYSTROPHIC NAILS ANY # K1848-XOWXCWOM DYSTROPHIC NAILS ANY # E3664-OMPHSNUQ DYSTROPHIC NAILS ANY # E0131-WCBEPPOH DYSTROPHIC NAILS ANY # O8148-ZODTMHVA DYSTROPHIC NAILS ANY # S6936-XDYZZDFE DYSTROPHIC NAILS ANY # C7581-ZIFTBJFY DYSTROPHIC NAILS ANY # F5150-WASWVSYL DYSTROPHIC NAILS ANY # Q7584-SLUBQNSW DYSTROPHIC NAILS ANY # 68444- Nail Unit Biopsy 02/19/2018 Next Appt Details Provider Name:Bishnu Valente Helen , 06/18/2025 11:15:00 AM, [address] [facility], [place], [address], Insurance Providers Payer Name Payer Address Payer Phone Subscriber Number Group Number Insured Name Patient Relationship to Insured Coverage Start Date Coverage End Date Medicare [employer] [address] [place] [address] [id number] Kaitlin Ortiz Self - patient is the insured [address] [place] [address] [address] Karenmelody [id number] [phone] [id number] Kaitlin Ortiz Self - patient is the [...]
== END 2025-04-15 11:47 | disposition home or self-care (01) ==
LOC: HO.HMCHD 10:48
PROVIDERS: PCP Family Medicine; Visit Provider Internal Medicine
DX: I10 Essential (primary) hypertension (principal); I25.10 Atherosclerotic heart disease of native coronary artery without angina pectoris; I48.0 Paroxysmal atrial fibrillation; E11.59 Type 2 diabetes mellitus with other circulatory complications; T84.52XS Infection and inflammatory reaction due to internal left hip prosthesis, sequela

== ENCOUNTER → 2025-04-15 10:47 | Outpatient (BNVA) | payer MEDICARE, OTHER, SELFPAY | PROVIDERS: PCP Family Medicine; Visit Provider Internal Medicine | DX: Z76.89 Persons encountering health services in other specified circumstances (principal); I10 Essential (primary) hypertension; I25.10 Atherosclerotic heart disease of native coronary artery without angina pectoris; I48.0 Paroxysmal atrial fibrillation; E11.59 Type 2 diabetes mellitus with other circulatory complications; R26.2 Difficulty in walking, not elsewhere classified; R20.0 Anesthesia of skin; T84.52XS Infection and inflammatory reaction due to internal left hip prosthesis, sequela; C91.10 Chronic lymphocytic leukemia of B-cell type not having achieved remission; Z79.84 Long term (current) use of oral hypoglycemic drugs; Z95.1 Presence of aortocoronary bypass graft | CPT/HCPCS: 99202 ==

== ENCOUNTER 2025-05-05 13:15 | Outpatient (AMB) | payer MEDICARE, OTHER, SELFPAY ==
--- NOTE | 2025-05-05 13:22 | MHC.OFFVIS ---
Vital Signs 05/05/25 13:23 Height 5 ft 4 in Weight 200 lb 9.93 oz BMI 34.4 BP 124/68 Blood Pressure Location Lt brachial Position Sitting Pulse 52 Pulse Source Pulse Oximeter Intake Visit Reasons: 2 month f/up holter Allergies amoxicillin (AMOXICILLIN) Allergy (Severe, Verified 04/26/25 10:32) stroke, blood clots ciprofloxacin (From CIPRO) Allergy (Severe, Verified 04/26/25 10:32) ANAPHYLAXIS Iodinated Contrast Media (IV DYE, IODINE CONTAINING CONTRAST ) Allergy (Severe, Verified 04/26/25 10:32) HIVES levofloxacin Allergy (Severe, Verified 04/26/25 10:32) Anaphylaxis liraglutide Allergy (Severe, Verified 04/26/25 10:32) Headache Penicillins Allergy (Severe, Verified 04/26/25 10:32) stroke, blood clots FREYA Inhibitors Allergy (Intermediate, Verified 04/26/25 10:32) Cough ARB-Angiotensin Receptor Antagonist Allergy (Intermediate, Verified 04/26/25 10:32) Cough cefpodoxime Allergy (Intermediate, Verified 04/26/25 10:32) Dizziness, nausea doxazosin Allergy (Intermediate, Verified 04/26/25 10:32) Shortness of Breath fluticasone (Advair Diskus) Allergy (Intermediate, Verified 04/26/25 10:32) Anxiety gabapentin (From Neurontin) Allergy (Intermediate, Verified 04/26/25 10:32) Headache hydralazine Allergy (Intermediate, Verified 04/26/25 10:32) Shortness of Breath latex Allergy (Intermediate, Verified 04/26/25 10:32) Hives linezolid Allergy (Intermediate, Verified 04/26/25 10:32) Nausea and Vomiting meloxicam Allergy (Intermediate, Verified 04/26/25 10:32) Unknown salmeterol (Advair Diskus) Allergy (Intermediate, Verified 04/26/25 10:32) Anxiety Tetanus Vaccines and Toxoid Allergy (Intermediate, Verified 04/26/25 10:32) Swelling torsemide Allergy (Intermediate, Verified 04/26/25 10:32) Shortness of Breath cephalexin (Keflex) Allergy (Mild, Verified 04/26/25 10:32) Nausea Medication List - Last Reconciled 05/05/25 by Gerardo gAustin MD acetaminophen 650 mg (2 x 325 mg) PO Q6H PRN 30 days amlodipine 10 mg PO QAM ascorbic acid (vitamin C) 1,000 mg PO QAM 90 days aspirin (Enteric Coated Aspirin) 81 mg PO QAM atorvastatin 80 mg PO QPM blood sugar diagnostic (Accu-Chek Guide test strips) As directed carvedilol 25 mg PO BID citalopram 20 mg PO QAM coenzyme Q10 (CoQ-10) 100 mg PO BEDTIME duloxetine 60 mg PO QAM esomeprazole magnesium 40 mg PO BID famotidine 40 mg PO BEDTIME ferrous sulfate (iron) 325 mg PO QAM furosemide 40 mg PO DAILY PRN ibrutinib (Imbruvica) 420 mg PO QAM lancets (FreeStyle Lancets) As directed magnesium 250 mg PO BEDTIME mastectomy bra (bra, mastectomy) As Directed mastectomy bra (bra, mastectomy) As Directed mastectomy bra (bra, mastectomy) As Directed meropenem 1 g IV Q24H 10 days metformin 1,000 mg PO BID multivitamin 1 tab PO QAM oxybutynin chloride 5 mg PO BID PRN phenazopyridine 200 mg PO Q8H 5 days polyethylene glycol 3350 (Miralax) 17 grams PO DAILY PRN pregabalin 150 mg PO BID spironolactone 25 mg PO QAM walker Folding front wheeled walker walker Folding front wheeled walker HPI Comments Details: Kaitlin returns for follow-up regarding coronary disease. She has got an extensive risk factor profile including obesity, sedentary lifestyle, diabetes, hypertension, dyslipidemia among others. She also has chronic lymphocytic leukemia on ibrutinib. She was supposed to go for hip surgery. In that context, she underwent further workup leading to a diagnostic catheterization showing multivessel CAD. That led to coronary artery bypass surgery. Since last seen, she states that she is generally doing well. No new concerns. She has had chronic shortness of breath which could be related to deconditioning and that is unchanged. Off and on leg swelling. [facility] Medical History PAF (paroxysmal atrial fibrillation) Suprapubic catheter Neuropathy Osteoarthritis Morbid obesity Allergy to multiple antibiotics Depression Arthritis of left hip Wears dentures Neurogenic urinary bladder disorder History of blood transfusion History of CVA (cerebrovascular accident) Seasonal allergies PONV (postoperative nausea and vomiting) Diabetes with neurologic complications Type 2 diabetes mellitus with unspecified complications Anemia CLL (chronic lymphocytic leukemia) Sleep apnea Arthritis Fibromyalgia Hypercholesterolemia Hypertension History of bilateral breast cancer Urinary retention with incomplete bladder emptying Surgical History History of cervical discectomy History of open heart surgery (~01/31/24) History of total left hip replacement S/P Botox injection History of suprapubic catheter S/P left breast biopsy History of esophagogastroduodenoscopy (EGD) Hx of colonoscopy History of bladder repair surgery History of total hysterectomy S/P breast biopsy, right History of back surgery History of biopsy of bladder Family History Mother Breast cancer Father Heart disease Father Lung cancer Mother Colon cancer Brother Pancreatic cancer Social History Household Members: Spouse Housing: House Housing Other:: has chair lift for second floor access Are you a primary home care chaplain to a significant other at home: No Do you presently have visiting nurse or other home services: Yes (visiting nurse-recent in patient for UTI) Alcohol intake: never Comment: patient refused telesiter,removed per pt request Patient Tobacco Use Status: Never used Tobacco e-Cigarette/Vaping Use: Never Used Advance Directives Date on File: 07/30/23 service: No Current occupational status: retired Female Reproductive History Menstrual Age of Menarche: 15 Review of Systems Const Denies weakness ENT Denies dizziness Card Denies chest pain, Denies chest pain with activity, Denies syncope, Denies rapid heart rate, Denies pedal edema, Denies edema, Denies leg edema, Denies lightheadedness, Denies palpitations, Denies dyspnea, Denies dyspnea on exertion and Denies orthopnea Resp Denies cough, Denies dyspnea and Denies dyspnea on exertion GI Denies hematochezia and Denies change in stool character Musc Denies abnormal gait, Denies muscle cramps, Denies muscle weakness, Denies numbness, Denies radiating pain into limb and Denies tingling Neuro Denies abnormal gait, Denies dizziness, Denies syncope, Denies numbness, Denies tingling and Denies weakness Endo Denies palpitations Physical Exam Vital Signs: Last Vital Signs Pulse 52 08/27/25 13:23 BP 124/68 05/05/25 13:23 BMI result Body Mass Index 34.4 Const General: comfortable and no acute distress Orientation/consciousness: patient oriented x3 HEENT Other: Unremarkable Head: Yes normal to inspection Neck Neck: Yes normal visual inspection Chest Chest palpation & inspection: normal inspection of the chest Resp Auscultation: clear to auscultation bilaterally Cardio Palpation: normal PMI Heart sounds: S1 normal heart sound present, S2 normal heart sound present, no gallops, Murmur heart sound present systolic II/ and at the right sternal border and no rubs GI Palpation (GI): Soft to palpation Back/Spine/Pelvis Other: unremarkable Skin General skin exam: no rashes or lesions noted Neuro General: patient oriented x3 Extrem Other: 1+ leg swelling General: Yes normal to inspection Psych Mental Status: mental status grossly normal Assessment & Plan Assessment & Plan (1) Atherosclerotic cardiovascular disease: Code(s): I25.10 - Atherosclerotic heart disease of [place] coronary artery without angina pectoris Category: Medical Plan: Cardiac catheterization with multivessel CAD including PHY THERAPIST of the dominant right coronary artery. Now status post bypass surgery. Continue aspirin and statins. (2) Status post aorto-coronary artery bypass graft: Code(s): Z95.1 - Presence of aortocoronary bypass graft Category: Surgical Plan: Recovering well. No specific concerns. (3) PAF (paroxysmal atrial fibrillation): Code(s): I48.0 - Paroxysmal atrial fibrillation Category: Medical Plan: Per discharge summary, had postoperative atrial fibrillation after bypass surgery. She was given amiodarone but not on it anymore. In the recent Holter, no evidence of recurrent atrial fibrillation. (4) Non-rheumatic aortic stenosis: Code(s): I35.0 - Nonrheumatic aortic (valve) stenosis Category: Medical Plan: In the last echocardiogram, mild aortic stenosis/regurgitation. Not hemodynamically significant. Can be followed. (5) Essential hypertension: Code(s): I10 - Essential (primary) hypertension Category: Medical Plan: Variable blood pressures at different times. Today, within range. On carvedilol, amlodipine, spironolactone. Of note, she also has numerous medication allergies including FREYA inhibitors, ARB, doxazosin, hydralazine. Overall, not many options. (6) Hyperlipidemia, unspecified: Code(s): E78.5 - Hyperlipidemia, unspecified Category: Medical Plan: Stable. No changes. Last LDL 66 mg/dL. (7) CKD (chronic kidney disease): Code(s): N18.9 - Chronic kidney disease, unspecified Category: Medical Plan: Most recent creatinine 1.97. Coding Level of Care Code Est Pt Level 4 (09320) Complex EM visit Add On G2211 Diagnoses Atherosclerotic cardiovascular disease I25.10 Status post aorto-coronary artery bypass graft Z95.1 PAF (paroxysmal atrial fibrillation) I48.0 Non-rheumatic aortic stenosis I35.0 Essential hypertension I10 Hyperlipidemia, unspecified E78.5 CKD (chronic kidney disease) N18.9
[2025-05-05 13:23] VITALS: BP 124/68; PULSE 52; BMI 34.4
--- OUTSIDE RECORDS SUMMARY | 2025-05-05 13:57 | XMS_ITS | Encounter Summary ---
Author Organization [facility] Address [address] [facility] [address] [place], [place] [id number] Phone Care Team Providers Care Irrigation Technician Name Role Phone Ricardo Breen MD Primary Care Provider Encounter Details Date Type Department Care Team (Late st Contact Info) Description 04/08/2018 Ancillary Orders [facility], X-Ray - [address] [address] Brannon Perea MD [address] [place] [id number] [email or web address] Cervical spondylosis without myelopathy Social History Tobacco Use Types Packs/Day Years Used Date Smoking Tobacco: Never Assessed Comments Unknown Sex and Gender Information Value Date Recorded Sex Assigned at Not on file Legal Sex Female 10:07 PM EDT Gender Identity Not on file Sexual Orientation Not on file documented as of this encounter Plan of Treatment Not on file documented as of this encounter Results * XR CERVICAL SPINE 2-3 VIEWS (04/08/2018 11:48 AM EDT) Anatomical Region Laterality Modality C-spine Radiographic Brenna ging 04/08/2018 11:5 3 AM EDT Impressions 04/08/2018 12:02 PM EDT Minimal retrolisthesis of C4 and C5 with very slight improvement in extension. POS [id number] Narrative 04/08/2018 12:02 PM EDT Lateral cervical spine, 3 views in neutral, flexion and extension Compare to MRI 03/19/2018. In the neutral position there is about 3 mm of retrolisthesis of C4 on C5 which does not change appreciably in flexion but reduces very slightly down to about 1 mm in extension. The other vertebral bodies are well-aligned in all 3 positions. Severe disc narrowing at all levels from C4 through T1 has not changed since the recent MRI. Procedure Note Leo Quick MD - 04/08/2018 Lateral cervical spine, 3 views in neutral, flexion and extension Compare to MRI 03/19/2018. In the neutral position there is about 3 mm of retrolisthesis of C4 on C2rzabo does not change appreciably in flexion but reduces very slightlydown to about 1 mm in extension. The other vertebral bodies are well-aligned in all 3 positions. Severe disc narrowing at all levels from C4 through T1 has not changedsince the recent MRI. IMPRESSION: Minimal retrolisthesis of C4 and C5 with very slight improvement inextension. POS [id number] Brannon Perea MD IMG XR SPINE Final Res ult documented in this encounter Visit Diagnoses Diagnosis Cervical spondylosis without myelopathy Cervical spondylosis without myelopathy documented in this encounter Care Teams Irrigation Technician Relationship Specialty Start Date End Date Ricardo Breen MD [address] [place] [address] Dr [place], EBEN [id number] PCP - General Internal Medicine 04/08/18 documented as of this encounter Additional Source Comments The information contained in this document represents components of the legal health record. It is not the complete legal health record.[facility]
--- OUTSIDE RECORDS SUMMARY | 2025-05-05 13:57 | XMS_ITS | Clinical Summary ---
Author Organization [facility] Address [address] [place] [address] Care Team Providers Care Promotions Director Name Role Phone Ricardo Breen Primary Care Provider [phone] Allergies Active Allergy Reactions Criticality Noted Date Comments Adhesive Tape-Silicones Rash 01/21/2025 Amoxicillin Hemorrhagic stroke 09/13/2017 Celecoxib Hives 09/13/2017 Ciprofloxacin Anaphylaxis High 09/13/2017 Iodinated Contrast Media Hives 09/13/2017 Latex Rash 01/21/2025 Levofloxacin Nausea 01/21/2025 Morphine Nausea 01/21/2025 Penicillins Anaphylaxis High 09/13/2017 Medications amLODIPine (NORVASC) 10 mg tablet SMARTSI Tablet(s) By Mouth Daily 01/11/20 25 Active ascorbic acid, vitamin C, (VITAMIN C) 1,000 mg tablet SMARTSI Tablet(s) By Mouth Every Morning 11/13/19 25 Active atorvastatin (LIPITOR) 80 mg tablet SMARTSI Tablet(s) By Mouth Every Evening 12/15/19 25 Active Freestyle Lite test strips SMARTSI Strip(s) Via Meter Daily 03/13/20 24 Active FreeStyle Lite Meter meter SMARTSIG:Daily 03/13/20 24 Active carvediloL (COREG) 25 mg tablet SMARTSI Tablet(s) By Mouth Twice Daily 10/29/19 25 Active citalopram (CeleXA) 20 mg tablet SMARTSI Tablet(s) By Mouth Daily 10/29/[address] (CYMBALTA) 60 mg capsule SMARTSI Capsule(s) Every Morning 10/18/19 25 Active famotidine (PEPCID) 40 mg tablet SMARTSI Tablet(s) By Mouth Every Night 12/15/19 25 Active Freestyle lancets 28 gauge SMARTSI Lancet(s) Topical Daily 03/13/20 24 Active metFORMIN (GLUCOPHAGE) 1,000 mg tablet SMARTSI Tablet(s) By Mouth Twice Daily 01/06/20 25 Active oxybutynin (DITROPAN) 5 mg tablet SMARTSI Tablet(s) By Mouth Twice Daily PRN 10/01/19 25 Active pregabalin (LYRICA) 150 mg capsule SMARTSI Capsule(s) By Mouth Twice Daily 10/16/19 25 Active spironolacton e (ALDACTONE) 25 mg tablet SMARTSI Tablet(s) By Mouth Daily 10/30/19 25 Active polyethylene glycol 3350 (MIRALAX ORAL) Take by mouth. Activ e furosemide (LASIX) 40 mg tablet Take 40 mg by mouth once a day. As needed 02/03/20 24 Active omeprazole (PriLOSEC) 20 mg capsule Take 20 mg by mouth once a day. Active esomeprazole (NexIUM) 40 mg capsule Take 40 mg by mouth every morning before breakfast. 10/29/19 25 Active Laxative, bisacodyl, 5 mg EC tablet Take 5 mg by mouth daily as needed. 09/14/19 25 Active calcium carbonate (Super Calcium) 600 mg calcium (1,500 mg) tablet Take 600 mg by mouth once a day. Active apixaban (ELIQUIS) 2.5 mg tablet Take 1 tablet (2.5 mg total) by mouth every 12 hours. For 30 days 02/05/20 25 Active senna (SENOKOT) 8.6 mg tablet Take 2 tablets (17.2 mg total) by mouth nightly. 02/05/20 25 Active acetaminophen (TYLENOL) 325 mg tablet Take 2 tablets (650 mg total) by mouth every 6 hours. 02/05/20 25 Active aspirin 81 mg EC tablet Take 1 tablet (81 mg total) by mouth once a day. May resume when eliquis stopped 02/05/20 25 Active ibrutinib (IMBRUVICA) 140 mg capsule Take 3 capsules (420 mg total) by mouth once a day. May resume when family can provide to facility 02/05/20 Active sodium chloride 0.9% injection Infuse 10 mL intravenously every 12 hours. And after every use 02/05/20 Active Additional Information Patient not taking.Reported on 04/12/2025 sodium chloride 0.9% injection Infuse 10 mL intravenously once a day. 02/06/20 Active 0.9% NaCl parenteral solution 500 mL with vancomycin 5 gram recon soln 1,250 mg Infuse 1,250 mg intravenously every 24 hours. Anticipated 6 weeks. Goal trough 15-20. ID to determine final duration 02/06/20 Active hydrocortison e (CORTEF) 5 mg tablet Take 5 mg by mouth once a day. Active lidocaine (LIDODERM) 5% patch Apply 1 patch topically to the affected area once a day. Remove and discard patch within 12 hours or as directed. Active multivitamin (THERAGRAN) tablet Take 1 tablet by mouth once a day. Active phenazopyridi ne (PYRIDIUM) 200 mg tablet SMARTSI Tablet(s) By Mouth Every 8 Hours 02/26/20 Active sulfamethoxaz ole-trimethop rim (BACTRIM SS) 400-80 mg tabletIndicat ions:Suppress ricarda therapy Take 1 tablet by mouth 2 times a day Indications: Suppressive therapy. 60 tablet 04/27/20 25 2024 Active sod.chlorid-p otassium chloride 287-180-15 mg tablet Take 1 1 DS tablet by mouth. 2024 Discontinued(D iscontinued by Patient) sulfamethoxaz ole-trimethop rim (BACTRIM DS) 800-160 mg tabletIndicat ions:PJI c/b hardware Take 1 tablet by mouth once a day for 14 days Indications: PJI c/b hardware. 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, initial encounter 01/26/2025 Encounters Date Type Department Care Team Description 04/27/2025 Telephone [facility] [address] [place] [address] Gear Lapper: Adeola Ernandez NP 04/20/2025 Telephone [facility] [address] [place] [phone] Gear Lapper: Edda Santos Telephone Intake, Staff PAC Patient Request Call Back 04/12/2025 1:30 PM EDT Follow-Up [facility] [address] [place] [phone] Murali Hooker MD 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, subsequent encounter (Primary Dx) 03/24/2025 Telephone [facility] [address] [place] [id number] Gear Lapper: Edda Ya, Referring PAC Patient Request Call Back; PAC Appt Request - Established Adeola Miller NP 03/24/2025 Telephone [facility] [address] [place] [phone] Gear Lapper: Adeola Ernandez NP 03/08/2025 4:00 PM EDT Telehealth [facility] [address] [place] [phone] Gear Lapper: Adeola Ernandez NP 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, initial encounter (HCC) (Primary Dx); Staphylococcal infection 02/17/2025 1:30 PM EDT Follow-Up [facility] [address] [place] [id number] Gear Lapper: Adeola Ernandez NP 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, subsequent encounter (Primary Dx); Staphylococcal infection; Chronic UTI 02/12/2025 1:00 PM EDT Follow-Up [facility] [address] [place] [phone] Alejo Davis PA 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, subsequent encounter (Primary Dx); 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 02/12/2025 12:12 PM EDT - 02/12/2025 11:59 PM EDT Hospital Encounter [facility] Xray [address] [place] [address] Murali Hooker MD 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 Discharge Disposition: Home or Self Care (01) 02/10/2025 Documentation [facility] [address] [place] [address] Rachel Anaya 01/26/2025 5:06 AM EDT - 02/05/2025 12:15 PM EDT Hospital Encounter [facility] [address] [place] [address] Murali Hooker MD 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, initial encounter () Discharge Disposition: Retirement Facility (03) from Last 3 Months Family History Medical History Relation Name Comments Pancreatic cancer Brother Lung cancer Father Cancer Mother Colon cancer Mother Relation Name Status Comments Brother Father Mother Social History Tobacco Use Types Packs/Day Years Used Date Smoking Tobacco: Never Smokeless Tobacco: Never Tobacco Cessation:Counseling Given: Not Answered Alcohol Use Standard Drinks/Week Comments Never 0 (1 standard drink = 0.6 oz pur e alcohol) [facility] Utilities Answer Date Recorded In the [...] Orientation Straight 01/25/2025 11 :49 AM EDT Last Filed Vital Signs Vital Sign Reading Time Taken Comments Blood Pressure 124/52 02/17/2025 1:02 PM EDT Pulse 59 02/17/2025 1:02 PM EDT Temperature 36.4 C (97.5 F) 02/17/2025 1:02 PM EDT Respiratory Rate 18 02/17/2025 1:02 PM EDT Oxygen Saturation 97% 02/17/2025 1:02 PM EDT Inhaled Oxygen Concentration - - Weight 88.5 kg (195 lb) 03/08/2025 3:46 PM EDT Height 165.1 cm (5' 5 ) 03/08/2025 3:46 PM EDT Body Mass Index 32.45 03/08/2025 3:46 PM EDT Plan of Treatment Upcoming Encounters Date Type Department Care Team (Late st Contact Info) Description 07/14/2025 3:00 PM EST Follow-Up [facility] [address] [place], [place] [phone] Murali Hooker MD [address] [place], [place] [phone] Health Maintenance Due Date Last Done Comments 25 Hydroxy / Vitamin D 1946 CKD: Referral to Nephrology 1945 Hepatitis C Screening 1945 PTH 1946 Phosphorus 1946 Medicare AWV 1947 Urine Microalbumin 1956 DTaP,Tdap,and Td Vaccines (1 - Tdap) 1968 Osteoporosis Screening 1996 Zoster Vaccines (1 of 2) 1996 RSV Vaccine (60+ years old and patients) (1 - 1-dose 75+ series) 2021 COVID-19 Vaccine ( - season) 2024 11/17/2021, 05/19/2021, 04/24/2021, Additional history exists Alcohol/Substance Use Screening 09/09/2024 Depression Screening and Follow-Up 09/09/2024 Health Care Proxy Review 09/09/2024 Influenza Vaccine (#1) 2025 , 06/09/2024, 06/25/2023, Additional history exists Basic Metabolic Panel 08/23/2025 04/23/2025 , 02/05/2025, 02/02/2025, Additional history exists Social Drivers of Health Annual Screening 01/26/2026 01/26/2025 Hemoglobin 04/23/2026 04/23/2025, 01/09, 02/03/2025, Additional history exists Pneumococcal Vaccine: 50+ Years Completed 05/26/2016, 04/29/2014 Hepatitis B Vaccines Aged Out No long er eligible based on patient's age to complete this topic Goals Goal Patient Goal Type Associated Problems Recent Progress Patient-Stated? Author Autogenera gaby Goal Care Plan Autogenerated Problem No Rachel Villatoro Medical Devices Implanted Type Area Nuclear Reactor Operator Device Identifier Shelf Expiration Date Model / Serial / Lot Cement Radiopaque Full Dose 40gr Simplex P - [id number] Implanted:Qty: 2 on 01/26/2025 by Murali Hooker MD at [facility] Implant Left: Hip JACLYN 07/09/2026 [id number] / / [id number] Insert Acetabular Eccentric 36mm 10 Degree Trident X3 - [id number] Implanted:Qty: 1 on 01/26/2025 by Murali Hooker MD at [facility] Implant Left: Hip JACLYN 04/15/2029 [id number] / / [id number] Head Femoral Anatomic V40 Vitallium Cocr Plus [id number] - [id number] Implanted:Qty: 1 on 01/26/2025 by Murali Hooker MD at [facility] Implant Left: Hip JACLYN 02/07/2028 [id number] / / [id number] Procedures * Due to [place] state law, this organization might not be sharing negative HIV tests. 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 POCT GLUCOSE Routine 02/05/2025 10:59 AM EDT VANCOMYCIN, TROUGH Timed 02/05/2025 8: 24 AM EDT POCT GLUCOSE Routine 02/05/2025 7:43 AM EDT CBC AUTO DIFFERENTIAL Routine 02/05/2025 5:54 AM EDT BASIC METABOLIC PANEL Routine 02/05/2025 5:54 AM EDT POCT GLUCOSE Routine 02/04/2025 8:23 PM EDT POCT GLUCOSE Routine 02/04/2025 4:47 PM EDT POCT GLUCOSE Routine 02/04/2025 11:32 AM EDT POCT GLUCOSE Routine 02/04/2025 7:57 AM EDT POCT GLUCOSE Routine 02/03/2025 8:11 PM EDT POCT GLUCOSE Routine 02/03/2025 4:18 PM EDT POCT GLUCOSE Routine 02/03/2025 11:28 AM EDT POCT GLUCOSE Routine 02/03/2025 7:53 AM EDT CBC Routine 02/03/2025 2:50 AM EDT POCT GLUCOSE Routine 02/02/2025 8:21 PM EDT POCT GLUCOSE Routine 02/02/2025 5:01 PM EDT POCT GLUCOSE Routine 02/02/2025 11:46 AM EDT VANCOMYCIN, TROUGH Timed 02/02/2025 9: 58 AM EDT POCT GLUCOSE Routine 02/02/2025 7:52 AM EDT BASIC METABOLIC PANEL Timed 02/02/2025 5:55 AM EDT CBC Timed 02/02/2025 5:55 AM EDT from Last 3 Months Results * Due to [place] state law, this organization might not be sharing negative HIV tests. * (ABNORMAL) CBC Auto Differential (04/23/2025 11:28 AM EDT) Only the most recent of2 resultswithin the time period is included. Pathologist [facility] White Blood Cell Count 9.0 3.8 - 10.8 Thousand/ uL 04/24/2025 5:59 AM EDT [facility] Red Blood Cell Count 3.59(L) 3.80 - 5.10 Million/u L 04/24/2025 5:59 AM EDT [facility] Hemoglobin 10.7(L) 11.7 - 15.5 g/dL 04/24/2025 5:59 AM EDT [facility] Hematocrit 34.1(L) 35.0 - 45.0 % 04/24/2025 5:59 AM EDT [facility] MCV 95.0 80.0 - 100.0 fL 04/24/2025 5:59 AM EDT [facility] MCH 29.8 27.0 - 33.0 pg 04/24/2025 5:59 AM EDT [facility] MCHC 31.4(L) 32.0 - 36.0 g/dL 04/24/2025 5:59 AM EDT [facility] Comment: For adults, a slight decrease in the calculated MCHC value (in the range of 30 to 32 g/dL) is most likely not clinically significant; however, it should be interpreted with caution in correlation with other red cell parameters and the patient's clinical condition. RDW 14.4 11.0 - 15.0 % 04/24/2025 5:59 AM EDT [facility] Platelet Count 128(L) 140 - 400 Thousand/ uL 04/24/2025 5:59 AM EDT [facility] MPV 12.4 7.5 - 12.5 fL 04/24/2025 5:59 AM EDT [employer] Absolute Neutrophils 5,184 1,500 - 7,800 cells/uL 04/24/2025 5:59 AM EDT [employer] Absolute Lymphocytes 2,817 850 - 3,900 cells/uL 04/24/2025 5:59 AM EDT [facility] Absolute Monocytes 783 200 - 950 cells/uL 04/24/2025 5:59 AM EDT [facility] Absolute Eosinophils 153 15 - 500 cells/uL 04/24/2025 5:59 AM EDT [facility] Absolute Basophils 63 0 - 200 cells/uL 04/24/2025 5:59 AM EDT [facility] Neutrophils 57.6 % 04/24/2025 5:59 AM EDT [facility] Lymphocytes 31.3 % 04/24/2025 5:59 AM EDT [facility] Monocytes 8.7 % 04/24/2025 5:59 AM EDT [facility] Eosinophils 1.7 % 04/24/2025 5:59 AM EDT [facility] Basophils 0.7 % 04/24/2025 5:59 AM EDT [facility] Blood Structure of peripheral vein / Unknown 04/23/2025 11:28 AM EDT 04/24/2025 4:58 AM EDT Narrative [facility] - 04/24/2025 10:34 AM EDT FASTING:NO us Adeola Miller RIM FIRE PRIMING OPERATOR LAB BLOOD ORDERABLES Final Res ult [facility] [address] [facility] [address], [place] [address], [facility] [address] [place] [address] * (ABNORMAL) Comprehensive Metabolic Panel (04/23/2025 11:28 AM EDT) [facility] Glucose 81 65 - 139 mg/dL 04/24/2025 10:29 AM [facility] Comment: Non-fasting reference interval BUN 38(H) 7 - 25 mg/dL 04/24/2025 10:29 AM [facility] Creatinine 2.08(H) 0.60 - 1.00 mg/dL 04/24/2025 10:29 AM [facility] eGFR 24(L) > OR = 60 mL/min/1. 73m2 04/24/2025 10:29 AM [facility] Bun/Creatinine Ratio 18 6 - 22 (calc) 04/24/2025 10:29 AM [facility] Sodium 139 135 - 146 mmol/L 04/24/2025 10:29 AM [facility] Potassium 5.4(H) 3.5 - 5.3 mmol/L 04/24/2025 10:29 AM [facility] Chloride 103 98 - 110 mmol/L 04/24/2025 10:29 AM [facility] Carbon Dioxide 26 20 - 32 mmol/L 04/24/2025 10:29 AM [facility] Calcium 9.7 8.6 - 10.4 mg/dL 04/24/2025 10:29 AM [facility] Protein, Total 6.2 6.1 - 8.1 g/dL 04/24/2025 10:29 AM [facility] Albumin 4.2 3.6 - 5.1 g/dL 04/24/2025 10:29 AM [facility] Globulin 2.0 1.9 - 3.7 g/dL (calc) 04/24/2025 10:29 AM [facility] Albumin/Globuli n Ratio 2.1 1.0 - 2.5 (calc) 04/24/2025 10:29 AM [facility] Bilirubin, Total 0.3 0.2 - 1.2 mg/dL 04/24/2025 10:29 AM [facility] Alkaline Phosphatase 57 37 - 153 U/L 04/24/2025 10:29 AM EDT [facility] AST 15 10 - 35 U/L 04/24/2025 10:29 AM EDT [facility] ALT 11 6 - 29 U/L 04/24/2025 10:29 AM EDT [facility] Blood Structure of peripheral vein / Unknown 04/23/2025 11:28 AM EDT 04/24/2025 7:43 AM EDT Narrative [facility] - 04/24/2025 10:34 AM EDT FASTING:NO us Adeola Ave Miller RIM FIRE PRIMING OPERATOR LAB BLOOD ORDERABLES Final Res ult [facility] [address] [facility] [address], [place] [address], [facility] [address] [place] [address] * XR Hip Left 2 Views And 1 View Pelvis (02/12/2025 12:52 PM EDT) Anatomical Region Laterality Modality Body, Pelvis, Hip Left Computed Radio graphy 02/12/2025 5:42 PM EDT Impressions 02/12/2025 6:15 PM EDT Prior revision left total hip arthroplasty with similar alignment. No evidence of acute fracture or erosion. Similar dystrophic calcification adjacent to the right greater trochanter consistent with calcific tendinosis. Diffuse osteopenia. Mild degenerative changes of the symphysis pubis and sacroiliac joints. Mild to moderate calcified atherosclerotic changes. If this radiology report contains a blank impression section, it is an incomplete radiology report. Please contact the interpreting radiologist or applicable radiology division as soon as possible to obtain the completed interpretation. Workstation ID: [id number] Narrative 02/12/2025 6:15 PM EDT COMPARISON: 01/26/2025 FINDINGS AND Resulting Agency Comment [id number] Procedure Note William Muse DO - 02/12/2025 COMPARISON: 01/26/2025 FINDINGS AND IMPRESSION: Prior revision left total hip arthroplasty with similar alignment. Noevidence of acute fracture or erosion. Similar dystrophic calcificationadjacent to the right greater trochanter consistent with calcifictendinosis. Diffuse osteopenia. Mild degenerative changes of the symphysispubis and sacroiliac joints. Mild to moderate calcified atheroscleroticchanges. If this radiology report contains a blank impression section, it is anincomplete radiology report. Please contact the interpreting radiologistor applicable radiology division as soon as possible to obtain thecompleted interpretation. Workstation ID: [id number] us Murali Hooker MD IMG XR PROCEDURES Final Res ult * (ABNORMAL) POCT Glucose, interfaced (02/05/2025 10:59 AM EDT) Only the most recent of14 resultswithin the time period is included. [facility] Glucose, POCT 284(H) 70 - 99 mg/dL 02/05/2025 11:00 AM EDT [facility] Comment: The security trainer has not determined the efficacy of this test in Critically ill patients. [facility] defines Critically ill patients for the purpose of blood glucose monitoring (BGM) by glucometer, as patients meeting one or more of the following criteria: Hypotension- non-ICU patients (systolic blood pressure Less than 90 mmHg) due to shock Hypotension -ICU patients (Mean Arterial Pressure (MAP) <60 mmHg or systolic blood pressure < 90 mmHg due to shock Patients receiving Vasopressors (phenylephrine, vasopressin or norepinephrine) Anasarca In all locations, BGM test results should not be relied upon in the above situations, unless these results confirmed with lab-based glucose values. Blood 02/05/2025 10:5 9 AM EDT 02/05/2025 11:00 AM EDT us Murali Hooker MD LAB POCT ORDERABLES - DEVIC E Final Result [facility] [address] [place] [address], [place] * (ABNORMAL) Vancomycin, Trough (02/05/2025 8:24 AM EDT) Only the most recent of2 resultswithin the time period is included. Vancomycin Trough 23.5(H) 10.0 - 20.0 ug/mL 02/05/2025 9:17 AM EDT [facility] Comment: Before interpreting a drug level, check the time the dose was given in the MAR to ensure the level was drawn appropriately. 10-15 ug/mL: Empiric/Mild infections 15-20 ug/mL: Severe MRSA infection (pneumonia, meningitis, endocarditis) Blood Structure of peripheral vein / Unknown Venipuncture / Unknown 02/05/2025 8:24 AM EDT 02/05/2025 8:27 AM EDT us Murali Hooker MD LAB BLOOD ORDERABLES Final Result [facility] [address] [place] [id number], [place] * (ABNORMAL) Basic Metabolic Panel (02/05/2025 5:54 AM EDT) Only the most recent of2 resultswithin the time period is included. NA 139 135 - 145 mmol/L 02/05/2025 7:08 AM EDT [facility] K 4.1 3.5 - 5.3 mmol/L 02/05/2025 7:08 AM EDT [facility] Cl 103 98 - 107 mmol/L 02/05/2025 7:08 AM EDT [facility] CO2 25 22 - 32 mmol/L 02/05/2025 7:08 AM EDT [facility] BUN 18 7 - 23 mg/dL 02/05/2025 7:08 AM EDT [facility] Creatinine 1.32(H) 0.50 - 1.20 mg/dL 02/05/2025 7:08 AM EDT [facility] Glucose 179(H) 65 - 99 mg/dL 02/05/2025 7:08 AM EDT [facility] Calcium 9.2 8.6 - 10.5 mg/dL 02/05/2025 7:08 AM EDT [facility] Anion Gap 11 5 - 15 02/05/2025 7:08 AM EDT [facility] eGFR 41(L) >=60 mL/min/1 .73m2 02/05/2025 7:08 AM EDT [facility] Comment:The estimated glomer ular filtration rate (eGFR) is calculated using a new formula developed by the NKF-ASN task force to eliminate race-based correction factors. The new formula uses serum/plasma creatinine, age, and gender to determine eGFR. A value below 60mls/min might indicate kidney disease and will be flagged. For additional information, see Melissa et al, Am J Kidney Dis. 2021;79(2):268- 288, A Unifying Approach for GFR estimation: Recommendations of the NKF-ASN Task Force on Reassessing the Inclusion of Race in Diagnosing Kidney Disease . Blood Structure of peripheral vein / Unknown Venipuncture / Unknown 02/05/2025 5:54 AM EDT 02/05/2025 5:59 AM EDT us Jeanne Jones NP LAB BLOOD ORDERABLES Final Resu lt [facility] [address] [place] [address], [place] * (ABNORMAL) CBC (02/03/2025 2:50 AM EDT) Only the most recent of2 resultswithin the time period is included. WBC 8.8 3.8 - 10.8 10*3/uL 02/03/2025 3:02 AM EDT [facility] RBC 2.75(L) 3.80 - 5.10 10*6/uL 02/03/2025 3:02 AM EDT [facility] Hemoglobin 8.0(L) 11.7 - 15.5 g/dL 02/03/2025 3:02 AM EDT [facility] Hematocrit 25.4(L) 35.0 - 45.0 % 02/03/2025 3:02 AM EDT [facility] MCV 92.4 80.0 - 100.0 fL 02/03/2025 3:02 AM EDT [facility] MCH 29.1 27.0 - 33.0 pg 02/03/2025 3:02 AM EDT [facility] MCHC 31.5(L) 32.0 - 36.0 g/dL 02/03/2025 3:02 AM EDT [facility] RDW 13.9 11.0 - 15.0 % 02/03/2025 3:02 AM EDT [facility] Platelets 147 140 - 400 10*3/uL 02/03/2025 3:02 AM EDT [facility] MPV 11.5 7.5 - 12.5 fL 02/03/2025 3:02 AM EDT [facility] Blood Structure of peripheral vein / Unknown Venipuncture / Unknown 02/03/2025 2:50 AM EDT 02/03/2025 2:55 AM EDT us Murali Hooker MD LAB BLOOD ORDERABLES Final Result Performing Organization Address City/State/[facility] de Phone Number [facility] [address] [place] [address], from Last 3 Months Additional Health Concerns Active Problems Noted Date Diagnosed Date Autogenerated Problem 01/20/2025 Insurance MEDICARE Member Subscriber Plan / Payer (Ef fective 2013-Present) Name:Jeri Brown Member ID:[id number] Relation to Subscriber:Self Name:Jeri Brown Subscriber ID:[id number] Payer ID:[id number] Group ID:Not on file Type:Not on file Address: [address] * Guarantor: JERI BROWN Account Type Relation to Patient Date of Phone Billing Address Personal/Family MEDICARE Member Subscriber Plan / Payer ( fective 2013-Present) Name:Jeri Brown Member ID:[id number] Relation to Subscriber:Self Name:Jeri Brown Subscriber ID:[id number] Payer ID:[id number] Group ID:Not on file Type:Not on file Address: [address] Advance Directives * Full Code (Latest Code Status on File) Date Activated Date Inactivated Comments 01/26/2025 10:59 AM 02/05/2025 3:20 PM * Full Code Date Activated Date Inactivated Comments 01/26/2025 5:58 AM 01/26/2025 10:59 AM Care Teams Promotions Director Relationship Specialty Start Date End Date Ricardo Breen [address] [place] [address] [place] [address] PCP - General Internal Medicine 01/26/25
--- OUTSIDE RECORDS SUMMARY | 2025-05-05 13:57 | XMS_ITS | Clinical Summary ---
Author Organization [facility] Facility Address [address] [address] Care Team Providers Care Dispute Coordinator Name Role Phone Ricardo Breen MD Primary Care Provider [phone] Medications spironolactone (ALDACTONE) 25 MG tablet TAKE [...] age to complete this topic Care Teams Dispute Coordinator Relationship Specialty Start Date End Date Ricardo Breen MD [address] [place] [address] [address] [place], [place] PCP - General 09/19/20
--- OUTSIDE RECORDS SUMMARY | 2025-05-05 13:57 | XMS_ITS | Encounter Summary ---
Author Organization [facility] Address [address] [place] [address] Care Team Providers Care Mirror Polisher Name Role Phone Jamshid Ricardo S Primary Care Provider [phone] Reason for Visit * Reason Onset Date Comments PAC Patient Request Call Back 04/20/2025 Encounter Details Date Type Department Care Team (Late st Contact Info) Description 04/20/2025 Telephone [facility] [address] [place], [place] [id number] Allergist Immunologist: Edda Santos Telephone Intake, Staff PAC Patient Request Call Back Social History Tobacco Use Types Packs/Day Years Used Date Smoking Tobacco: Never Smokeless Tobacco: Never Alcohol Use Standard Drinks/Week Comments Never 0 (1 standard drink = 0.6 oz pur e alcohol) [facility] Utilities Answer Date Recorded In the past 12 months has th e electric, gas, oil, or water company threatened to shut off services in your home? No 01/26/2025 Hunger Vital Sign Answer Date Recorded Within the past 12 months, y ou worried that your food would run out before you got the money to buy more. Never true 01/27/20 Within the past 12 months, t he [...] AM EDT documented as of this encounter Miscellaneous Notes * Telephone Encounter - Sury Ribeiro - 04/20/2025 10:32 AM EDT Patient requesting a call back to discuss the medication that was prescribed 2 weeks ago and patient is almost out Medication: Bactrim Patient also unsure if additional labs are needed since she had labs done a couple of weeks ago andthey were supposed to be faxed to Tiesha Miller from [facility]. Patient declined an in person appt and would like a telephone call instead if possible. Please advise. documented in this encounter Plan of Treatment Upcoming Encounters Date Type Department Care Team (Late st Contact Info) Description 07/14/2025 3:00 PM EST Follow-Up [facility] [address] [place] [address] Murali Hooker MD [address] [place] [address] documented as of this encounter Goals Goal Patient Goal Type Associated Problems Recent Progress Patient-Stated? Author Autogenera gaby Goal Care Plan Autogenerated Problem No Rachel Villatoro documented as of this encounter Visit Diagnoses Not on filedocumented in this encounter Additional Health Concerns Active Problems Noted Date Diagnosed Date Autogenerated Problem 01/20/2025 documented as of this encounter Care Teams Mirror Polisher Relationship Specialty Start Date End Date Ricardo Breen [address] [place] [address] [place] [address] PCP - General Internal Medicine 01/26/25 documented as of this encounter
--- OUTSIDE RECORDS SUMMARY | 2025-05-05 13:57 | XMS_ITS | Encounter Summary ---
Author Organization [facility] Address [address] [place] [address] Phone Care Team Providers Care News Library Director Name Role Phone Ricardo Breen MD Primary Care Provider Encounter Details Date Type Department Care Team (Late st Contact Info) Description 06/29/2021 Procedure Pass [facility], [address] [address] Social History Tobacco Use Types Packs/Day Years [...] on filedocumented in this encounter Care Teams News Library Director Relationship Specialty Start Date End Date Ricardo Breen MD [address] [place] [address] Dr CONNOR [address] [place] [address] PCP - General Internal Medicine 04/08/18 documented as of this encounter Additional Source Comments The information contained in this document represents components of the legal health record. It is not the complete legal health record.[facility]
--- OUTSIDE RECORDS SUMMARY | 2025-05-05 13:57 | XMS_ITS | Encounter Summary ---
Author Organization [facility] Address [address] [place] [address] [place] [address] Phone Care Team Providers Care Metal Furniture Assembler Name Role Phone Kathy Connor Primary Care Provider [phone] Ellen Breen MD Primary Care Provider [phone] Reason for Referral * MRI/CAT Scan - Closed Specialty Diagnoses / Procedures Referred By Contiveth t Referred To Contact Radiology Diagnoses Cervical spinal stenosis Procedures MRI Cervical Spine Kathy Connor PA Phone: tel: fax: mailto:[email or web address] Referral ID Status Reason Start Date Expiration Date Visits Re quested Visits Authorized [id number] Closed 03/11/2018 03/11/2019 1 1 Encounter Details Date Type Department Care Team (Late st Contact Info) Description 03/11/2018 Ancillary Orders Virtual Department [address] [place] [address] Kathy Connor PA [address] [place] [address] [email or web address] Cervical spinal stenosis Social History Tobacco Use Types Packs/Day Years Used Date Smoking Tobacco: Never Assessed Comments Unknown Sex and Gender Information Value Date Recorded Sex Assigned at Not on file Legal Sex Female 10:07 PM EDT Gender Identity Not on file Sexual Orientation Not on file documented as of this encounter Plan of Treatment Not on file documented as of this encounter Results * MRI CERVICAL SPINE (BONE) WITHOUT CONTRAST (03/19/2018 3:49 PM EDT) Anatomical Region Laterality Modality C-spine Magnetic Resonan ce 03/19/2018 3:55 PM EDT Impressions 03/19/2018 4:08 PM EDT Decrease in size of the C5-6 and C6-7 disc osteophyte complexes with decrease in the minimal canal stenosis at C5-6. Progressive mild right C2-3 facet arthropathy causing mild neural foraminal stenosis. Otherwise stable multilevel advanced degenerative changes as outlined. POS - [id number] Narrative 03/19/2018 4:08 PM EDT COMPARISON: 03/03/2015. TECHNIQUE: Exam performed on a 1.5 Mariza high-field MRI scanner. Sagittal T1, T2 and STIR, axial T2* gradient echo and 3-D bright fluid sequences were obtained. MRI CERVICAL SPINE FINDINGS: Stable reversal lordosis with moderate multilevel disc space narrowing and endplate osteophytes from C4-5 to C6-7. No compression deformities or malalignment. Stable mild patchy diffuse hyperintense STIR signal throughout the cervical spine from C4 to the upper thoracic spine at T3-4 which may represent edema from degenerative disc disease. No focal suspicious marrow signal abnormally. No cerebellar tonsil herniation or spinal cord signal abnormality. Stable posterior midline neck soft tissue scarring with susceptibility artifact throughout the mid and lower cervical spine. No fluid collection. C2-3: Stable mild left and progressive mild right facet arthropathy with uncovertebral spurring causing mild neural foraminal stenosis. No disc herniation or canal stenosis. C3-4: Stable small broad-based central disc protrusion with moderate left and mild right facet arthropathy and uncovertebral spurring. Stable moderate left neural foraminal stenosis. No canal stenosis. C4-5: Stable moderate bilateral facet arthropathy and uncovertebral spurring with mild bilateral neural foraminal stenosis. No canal stenosis or disc herniation. C5-6: Decrease in size of the disc osteophyte complex. Decrease in minimal canal stenosis. Stable moderate facet arthropathy and uncovertebral spurring causing mild bilateral neural foraminal stenosis. C6-7: Decrease in size of the disc osteophyte complex. Stable mild facet arthropathy. Neural foramina are patent. No canal stenosis. C7-T1: Stable mild facet arthropathy. T1-2: Stable disc osteophyte complex and mild facet arthropathy. No canal or neural foraminal stenosis. T2-3: Stable disc bulging. T3-4: Not imaged previously. There is a small right paracentral disc protrusion. Procedure Note Ellen Redmond MD - 03/19/2018 COMPARISON: 03/03/2015. TECHNIQUE: Exam performed on a 1.5 Mariza high-field MRI scanner. SagittalT1, T2 and STIR, axial T2* gradient echo and 3-D bright fluid sequenceswere obtained. MRI CERVICAL SPINE FINDINGS: Stable reversal lordosis with moderate multilevel disc space narrowing andendplate osteophytes from C4-5 to C6-7. No compression deformities ormalalignment. Stable mild patchy diffuse hyperintense STIR signalthroughout the cervical spine from C4 to the upper thoracic spine at T3-4which may represent edema from degenerative disc disease. No focalsuspicious marrow signal abnormally. No cerebellar tonsil herniation orspinal cord signal abnormality. Stable posterior midline neck soft tissuescarring with susceptibility artifact throughout the mid and lowercervical spine. No fluid collection. C2-3: Stable mild left and progressive mild right facet arthropathy withuncovertebral spurring causing mild neural foraminal stenosis. No discherniation or canal stenosis. C3-4: Stable small broad-based central disc protrusion with moderate leftand mild right facet arthropathy and uncovertebral spurring. Stablemoderate left neural foraminal stenosis. No canal stenosis. C4-5: Stable moderate bilateral facet arthropathy and uncovertebralspurring with mild bilateral neural foraminal stenosis. No canal stenosisor disc herniation. C5-6: Decrease in size of the disc osteophyte complex. Decrease inminimal canal stenosis. Stable moderate facet arthropathy anduncovertebral spurring causing mild bilateral neural foraminal stenosis. C6-7: Decrease in size of the disc osteophyte complex. Stable mild facetarthropathy. Neural foramina are patent. No canal stenosis. C7-T1: Stable mild facet arthropathy. T1-2: Stable disc osteophyte complex and mild facet arthropathy. No canalor neural foraminal stenosis. T2-3: Stable disc bulging. T3-4: Not imaged previously. There is a small right paracentral discprotrusion. IMPRESSION: Decrease in size of the C5-6 and C6-7 disc osteophyte complexes withdecrease in the minimal canal stenosis at C5-6. Progressive mild rightC2-3 facet arthropathy causing mild neural foraminal stenosis. Otherwisestable multilevel advanced degenerative changes as outlined. POS - [id number] Kathy LEONARDO IMG MR XSPECIALTY Final Res ult documented in this encounter Visit Diagnoses Diagnosis Cervical spinal stenosis Spinal stenosis in cervical region Cervical spinal stenosis Spinal stenosis in cervical region documented in this encounter Care Teams Metal Furniture Assembler Relationship Specialty Start Date End Date Kathy Connor PA [email or web address] PCP - General 03/11/18 04/07/18 Ellen Breen MD [address] [place] [address] [place] [address] PCP - General Internal Medicine 04/08/18 documented as of this encounter Additional Source Comments The information contained in this document represents components of the legal health record. It is not the complete legal health record.[facility]
--- OUTSIDE RECORDS SUMMARY | 2025-05-05 13:57 | XMS_ITS | Encounter Summary ---
Author Organization [facility] Address [address] [place] [address] Phone Care Team Providers Care Eyeglass Fitter Name Role Phone Kathy Connor Primary Care Provider [phone] Ricardo Breen MD Primary Care Provider [phone] Encounter Details Date Type Department Care Team (Late st Contact Info) Description 03/11/2018 Procedure Pass [facility], [address] [address] Social History Tobacco Use Types Packs/Day Years [...] on filedocumented in this encounter Care Teams Eyeglass Fitter Relationship Specialty Start Date End Date Kathy Connor PA [email or web address] PCP - General 03/11/18 04/07/18 Ricardo Breen MD [address] [place] [address] [address] [place], [place] [id number] PCP - General Internal Medicine 04/08/18 documented as of this encounter Additional Source Comments The information contained in this document represents components of the legal health record. It is not the complete legal health record.[facility]
--- OUTSIDE RECORDS SUMMARY | 2025-05-05 13:57 | XMS_ITS | Encounter Summary ---
Author Organization [facility] Address [address] [place] [address] [place] [address] Phone Care Team Providers Care Block Cleaner Name Role Phone Ricardo Breen MD Primary Care Provider Reason for Referral * MRI/CAT Scan - Closed Specialty Diagnoses / Procedures Referred By Yasir t Referred To Contact Radiology Diagnoses Lumbar radiculopathy Procedures MRI Lumbar Spine Rolando Tomas DO Phone: tel: fax: mailto:[email or web address] Referral ID Status Reason Start Date Expiration Date Visits Re quested Visits Authorized [id number] Closed 06/29/2021 06/29/2022 1 1 Encounter Details Date Type Department Care Team (Latest Contact Info) Description 06/29/2021 Ancillary Orders Virtual Department [address] [place] [address] Rolando Tomas DO [address] [place] [address] [email or web address] Lumbar radiculopathy Social History Tobacco Use Types Packs/Day Years Used Date Smoking Tobacco: Never Assessed Comments Unknown Sex and Gender Information Value Date Recorded Sex Assigned at Not on file Legal Sex Female 10:07 PM EDT Gender Identity Not on file Sexual Orientation Not on file documented as of this encounter Plan of Treatment Not on file documented as of this encounter Results * MRI LUMBAR SPINE (NEURO) WITHOUT CONTRAST (07/12/2021 8:25 PM EDT) Anatomical Region Laterality Modality L-spine Magnetic Resonan ce 07/13/2021 7:59 AM EDT Impressions 07/13/2021 8:26 AM EDT 1. Severe multilevel degenerative disc and endplate changes. Scoliosis. 2. At least moderate central canal stenosis at L2-L3 secondary to broad-based disc-osteophyte complex and severe facet arthropathy with thickening of the ligamentum flavum. Mild central canal stenosis at L1-L2. 3. Multilevel moderate neuroforaminal narrowing. 4. Grade 1 spondylolisthesis of L4 and L5 and L5 on S1 probably due to facet arthropathy. 5. Evidence of multilevel post-surgical changes. 6. 2.5 cm left suprarenal mass, likely arising from the adrenal gland. This could be an adenoma. MRI of the adrenals (abdomen) without contrast recommended. 7. Partial imaging of an exophytic T2 hyperintense mass within the medial aspect of the left kidney, probably a cyst. Ultrasound could be performed for further evaluation. POS - [id number] Narrative 07/13/2021 8:26 AM EDT HISTORY: Chronic lower back and left leg pain, numbness left leg. No other history provided. COMPARISON: None. TECHNIQUE: Exam performed on a 1.5 Mariza high-field MRI scanner. Sagittal T1, T2 and STIR, axial T1 and T2 sequences were obtained. FINDINGS: Conus medullaris: Normal. Vertebrae: Prominent curvature of the thoracolumbar spine with convexity to the left. No evidence of compression fractures. 1.1 cm T2, STIR hyperintense, T1 hypointense lesion within the posterior body of L2. Lower thoracic spine and T12-L1: Prominent disc space narrowing. Moderate to severe degenerative endplate changes at T11-T12, T12-L1 and, to a slightly lesser extent T10-T11. Broad-based disc-osteophyte complexes and facet arthropathy at these levels but no central canal stenosis. Moderate neuroforaminal narrowing at T11-T12 and T12-L1 on the right. L1-L2: Mild retrolisthesis of L1 on L2. Moderate to severe disc space narrowing and degenerative endplate changes. Broad-based small disc protrusion and associated posterior osteophytes. Moderate bilateral facet arthropathy and thickening of the ligamentum flavum and mild central canal stenosis. Moderate neuroforaminal narrowing on the right. L2-L3: Severe disc space narrowing and degenerative endplate changes. Broad- based disc-osteophyte complex. Severe bilateral facet arthropathy and associated thickening of the ligamentum flavum. At least moderate central canal stenosis. Moderate bilateral neuroforaminal narrowing. L3-L4: Moderate-severe disc space narrowing and moderate degenerative endplate changes. Small broad-based disc-osteophyte complex. Bilateral facet arthropathy. Evidence of laminectomy defect. No central canal stenosis. Moderate neuroforaminal narrowing on the left. Mild neuroforaminal narrowing on the right. Evidence of bony fusion of the posterior elements. L4-L5: Approximately 5 mm of spondylolisthesis of L4 on L5. Evidence of a laminectomy defect. Tiny broad-based disc protrusion. No central canal stenosis. Moderate- severe narrowing of the left neuroforamen. Mild-moderate narrowing of the right neuroforamen. Evidence of bony fusion of the posterior elements. L5-S1: Approximate 4 mm of spondylolisthesis of L5 on S1. Tiny broad-based disc protrusion. No central canal stenosis. Mild neuroforaminal narrowing. Evidence of bony fusion of the posterior elements. Soft tissues: No evidence of paravertebral masses. Diffuse atrophy of the paraspinous musculature. Other: 2.5 cm T1, T2 intermediate signal mass within the left suprarenal region probably arising from the adrenal gland. Partial imaging of a large T2 hyperintense mass in the medial aspect of the left kidney measuring at least 5.7 cm in maximal diameter. 10 mm T2 hyperintense mass within the anterior aspect of the upper pole of the right kidney, likely a cyst. Procedure Note Zafar Borrego MD - 07/13/2021 HISTORY: Chronic lower back and left leg pain, numbness left leg. No otherhistory provided. COMPARISON: None. TECHNIQUE: Exam performed on a 1.5 Mariza high-field MRI scanner. SagittalT1, T2 and STIR, axial T1 and T2 sequences were obtained. FINDINGS: Conus medullaris: Normal. Vertebrae: Prominent curvature of the thoracolumbar spine with convexityto the left. No evidence of compression fractures. 1.1 cm T2, STIRhyperintense, T1 hypointense lesion within the posterior body of L2. Lower thoracic spine and T12-L1: Prominent disc space narrowing. Moderateto severe degenerative endplate changes at T11-T12, T12-L1 and, to aslightly lesser extent T10-T11. Broad-based disc-osteophyte complexes andfacet arthropathy at these levels but no central canal stenosis. Moderateneuroforaminal narrowing at T11-T12 and T12-L1 on the right. L1-L2: Mild retrolisthesis of L1 on L2. Moderate to severe disc spacenarrowing and degenerative endplate changes. Broad-based small discprotrusion and associated posterior osteophytes. Moderate bilateral facetarthropathy and thickening of the ligamentum flavum and mild central canalstenosis. Moderate neuroforaminal narrowing on the right. L2-L3: Severe disc space narrowing and degenerative endplate changes.Broad-based disc-osteophyte complex. Severe bilateral facet arthropathyand associated thickening of the ligamentum flavum. At least moderatecentral canal stenosis. Moderate bilateral neuroforaminal narrowing. L3-L4: Moderate-severe disc space narrowing and moderate degenerativeendplate changes. Small broad-based disc-osteophyte complex. Bilateralfacet arthropathy. Evidence of laminectomy defect. No central canalstenosis. Moderate neuroforaminal narrowing on the left. Mildneuroforaminal narrowing on the right. Evidence of bony fusion of theposterior elements. L4-L5: Approximately 5 mm of spondylolisthesis of L4 on L5. Evidence of alaminectomy defect. Tiny broad-based disc protrusion. No central canalstenosis. Moderate- severe narrowing of the left neuroforamen.Mild-moderate narrowing of the right neuroforamen. Evidence of bony fusionof the posterior elements. L5-S1: Approximate 4 mm of spondylolisthesis of L5 on S1. Tiny broad-baseddisc protrusion. No central canal stenosis. Mild neuroforaminal narrowing.Evidence of bony fusion of the posterior elements. Soft tissues: No evidence of paravertebral masses. Diffuse atrophy of theparaspinous musculature. Other: 2.5 cm T1, T2 intermediate signal mass within the left suprarenalregion probably arising from the adrenal gland. Partial imaging of a largeT2 hyperintense mass in the medial aspect of the left kidney measuring atleast 5.7 cm in maximal diameter. 10 mm T2 hyperintense mass within theanterior aspect of the upper pole of the right kidney, likely a cyst. IMPRESSION: 1. Severe multilevel degenerative disc and endplate changes. Scoliosis. 2. At least moderate central canal stenosis at L2-L3 secondary tobroad-based disc-osteophyte complex and severe facet arthropathy withthickening of the ligamentum flavum. Mild central canal stenosis atL1-L2. 3. Multilevel moderate neuroforaminal narrowing. 4. Grade 1 spondylolisthesis of L4 and L5 and L5 on S1 probably due tofacet arthropathy. 5. Evidence of multilevel post-surgical changes. 6. 2.5 cm left suprarenal mass, likely arising from the adrenal gland.This could be an adenoma. MRI of the adrenals (abdomen) without contrastrecommended. 7. Partial imaging of an exophytic T2 hyperintense mass within the medialaspect of the left kidney, probably a cyst. Ultrasound could be performedfor further evaluation. POS - [id number] us Rolando Tomas DO IMG MR XSPECIALTY Final Resu lt documented in this encounter Visit Diagnoses Diagnosis Lumbar radiculopathy Thoracic or lumbosacral neuritis or radiculitis, unspecified Lumbar radiculopathy Thoracic or lumbosacral neuritis or radiculitis, unspecified documented in this encounter Care Teams Block Cleaner Relationship Specialty Start Date End Date Ricardo Breen MD [address] [place] [address] [place] [address] PCP - General Internal Medicine 04/08/18 documented as of this encounter Additional Source Comments The information contained in this document represents components of the legal health record. It is not the complete legal health record.[facility]
--- OUTSIDE RECORDS SUMMARY | 2025-05-05 13:57 | XMS_ITS | Clinical Summary ---
Author Organization [facility] Address [address] [address] Phone Care Team Providers Care Corporate Development Analyst Name Role Phone Ricardo Breen MD Primary Care Provider Encounters Date Type Department Care Team Description 02/02/2025 Orders Only [facility] [address] [place], [place] [phone] Homehealth, Interface ProviderMD from Last 3 Months Social History Tobacco Use Types Packs/Day Years Used Date Smoking Tobacco: Never Assessed Education Answer Date Recorded Are you interested in more education? Not on john e 01/04/2023 Are you concerned about learning? Not on file 01/04/2023 No 01/04/2023 No 01/04/2023 Digital Access Answer Date Recorded No 02/04/2023 No 02/04/2023 No 02/04/2023 Reliable internet access at home? Not on file 02/04/2023 Device with a working camera? Not on file Comments Unknown Sex and Gender Information Value Date Recorded Sex Assigned at Not on file Legal Sex Female 10:07 PM EDT Gender Identity Not on file Sexual Orientation Not on file Last Filed Vital Signs Vital Sign Reading Time Taken Comments Blood Pressure - - Pulse - - Temperature - - Respiratory Rate - - Oxygen Saturation - - Inhaled Oxygen Concentration - - Weight 98.9 kg (218 lb) 06/24/2022 9:07 AM EDT Height 162.6 cm (5' 4 ) 06/24/2022 9:07 AM EDT Body Mass Index 37.42 06/24/2022 9:07 AM EDT Plan of Treatment Not on file Medical Devices Not on file Insurance MEDICARE PART A & B Member Subscriber Plan / Payer (Ef fective 2008-Present) Name:Jeri Brown Member ID:[id number] Relation to Subscriber:Self Name:Jeri Brown Subscriber ID:[id number] Payer ID:[id number] Group ID:Not on file Type:Medicare Address: [employer] [address] MEDICARE SUPPLEMENT MEDICARE PART A & B Member Subscriber Plan / Payer (Ef fective 2008-Present) Name:Jeri Brown Member ID:[id number] Relation to Subscriber:Self Name:Jeir Brown Subscriber ID:[id number] Payer ID:[id number] Group ID:Not on file Type:Medicare Address: [employer] [address] [place] [address] [place] [address] MEDICARE SUPPLEMENT MEDIC[place] [phone] [facility] MEDICARE SUPPLEMENT MEDICARE PART A & B [facility] MEDICARE SUPPLEMENT MEDICARE PART A & B [facility] MEDICARE SUPPLEMENT MEDICARE PART A & B [facility] MEDICARE SUPPLEMENT MEDICARE PART A & B [facility] MEDICARE SUPPLEMENT MEDICARE PART A & B [facility] MEDICARE SUPPLEMENT MEDICARE PART A & B [facility] MEDICARE SUPPLEMENT Care Teams Corporate Development Analyst Relationship Specialty Start Date End Date Ricardo Breen MD [address] [place] [address] PCP - General Internal Medicine 04/08/18 Additional Source Comments The information contained in this document represents components of the legal health record. It is not the complete legal health record.[facility]
--- OUTSIDE RECORDS SUMMARY | 2025-05-05 13:57 | XMS_ITS | Encounter Summary ---
Author Organization [facility] Address [address] [place] [address] Care Team Providers Care Ceiling Cleaner Name Role Phone Jamshid Ricardo Jayla Primary Care Provider [phone] Encounter Details Date Type Department Care Team (Late st Contact Info) Description 02/10/2025 Documentation [facility] Case Management Department [address] [place] [address] Rachel Anaya Social History Tobacco Use Types Packs/Day Years Used Date Smoking Tobacco: Never Smokeless Tobacco: Never Alcohol Use Standard Drinks/Week Comments Never 0 (1 standard drink = 0.6 oz pur e alcohol) [facility] Utilities Answer Date Recorded In the [...] Info) Description 07/14/2025 3:00 PM EST Follow-Up [facility] [address] [place] [address] Murali Hooker MD [address] [place] [address] documented as of this encounter Goals Goal Patient Goal Type Associated Problems Recent Progress Patient-Stated? Author Autogenera gaby Goal Care Plan Autogenerated Problem Bhakti Villatoro Rachel documented as of this encounter Visit Diagnoses Not on filedocumented in this encounter Additional Health Concerns Active Problems Noted Date Diagnosed Date Autogenerated Problem 01/20/2025 documented as of this encounter Care Teams Ceiling Cleaner Relationship Specialty Start Date End Date Ricardo Breen [address] [place] [address] [place] [address] PCP - General Internal Medicine 01/26/25 documented as of this encounter
--- OUTSIDE RECORDS SUMMARY | 2025-05-05 13:57 | XMS_ITS | Continuity of Care Document ---
Author Organization [facility] [address] [place] [address] Phone [phone] Social History Type Date Description Comments Sex [...]
--- OUTSIDE RECORDS SUMMARY | 2025-05-05 13:57 | XMS_ITS | Encounter Summary ---
Author Organization [facility] Address [address] [place] [address] Phone Care Team Providers Care Magnetic Locater Name Role Phone Ricardo Breen MD Primary Care Provider [phone] Encounter Details Date Type Department Care Team (Late st Contact Info) Description 06/05/2022 Procedure Pass [facility], [address] [address] Social History Tobacco Use Types Packs/Day Years [...] on filedocumented in this encounter Care Teams Magnetic Locater Relationship Specialty Start Date End Date Ricardo Breen MD [address] [place] [address] Dr CONNOR [address] [place] [address] PCP - General Internal Medicine 04/08/18 documented as of this encounter Additional Source Comments The information contained in this document represents components of the legal health record. It is not the complete legal health record.[facility]
--- OUTSIDE RECORDS SUMMARY | 2025-05-05 13:57 | XMS_ITS | Encounter Summary ---
Author Organization [facility] Address [address] [place] [address] Phone Care Team Providers Care Librarian Special Library Name Role Phone Ricardo Breen MD Primary Care Provider Reason for Referral * MRI/CAT Scan - Closed Specialty Diagnoses / Procedures Referred By Yasir t Referred To Contact Radiology Diagnoses Post laminectomy syndrome Procedures MRI Lumbar Spine Rolando Tomas DO Phone: tel: fax: mailto:[email or web address] Referral ID Status Reason Start Date Expiration Date Visits Re quested Visits Authorized [id number] Closed 06/05/2022 06/05/2023 1 1 Encounter Details Date Type Department Care Team (Latest Contact Info) Description 06/05/2022 Transcribe Orders Virtual Department [address] [place] [address] Rolando Tomas DO [address] [place] [address] [email or web address] Post laminectomy syndrome (Primary Dx) Social History Tobacco Use Types Packs/Day Years [...] * MRI LUMBAR SPINE (NEURO) WITHOUT CONTRAST (06/25/2022 1:19 PM EDT) Anatomical Region Laterality Modality L-spine Magnetic Resonan ce 06/26/2022 4:04 PM EDT Impressions 06/26/2022 4:20 PM EDT 1.Dextroconvex scoliosis. 2.L4-L5 and L5-S1 anterolisthesis, unchanged. 3.Extensive degenerative disc changes and facet arthropathy in the lower thoracic spine and lumbar spine with canal stenosis, severe at L2-L3, unchanged. 4.Multilevel foramina stenosis, as above. 5. Left adrenal gland nodule, unchanged. Other findings as above, unchanged. Narrative 06/26/2022 4:20 PM EDT MRI LUMBAR SPINE (NEURO) WITHOUT CONTRAST TECHNIQUE: MRI LUMBAR SPINE (NEURO) WITHOUT CONTRAST Multi-sequence, multi-planar MRI of the lumbar spine was performed without intravenous contrast. COMPARISON: Lumbar spine MRI from July 12, 2021. FINDINGS: LUMBAR SPINE: Alignment and Vertebrae: There is a dextroconvex scoliosis of the spine, unchanged. 1 anterolisthesis seen at L4-L5 and L5-S1, unchanged. Vertebral body height is normal. No compression fracture. Marrow: No bone marrow replacing lesion. Discs and Endplates: Loss of intervertebral disc height noted at every level as seen on previous exam, unchanged. Sclerotic changes noted in the L2-L3 level anteriorly, unchanged. Conus: The tip of the conus ends at L1-L2. Soft Tissues: No prevertebral edema. There is atrophy of the paraspinous muscles. Other Findings: A large T2 hyperintensity is seen in the left retroperitoneum, likely a renal cyst, measuring 6 cm. There is a nodule in the left adrenal gland measuring 2.1 cm, grossly stable. No acute abnormality otherwise detected in the visualized retroperitoneum. Findings by level: T11-T12: Disc osteophyte complex seen. Mild facet joint arthropathy. Mild spinal canal stenosis. Moderate right foramina stenosis, unchanged. T12-L1: Disc/osteophyte complex and facet joint arthropathy, grossly stable. There is mild to moderate encroachment of the spinal canal. There is a possible tiny central extrusion. Moderate right foraminal stenosis. L1-L2: Disc/osteophyte complex. Central disc extrusion seen with caudal migration, stable. Facet joint hypertrophy. Mild to moderate canal stenosis, unchanged. Moderate right and mild left foraminal stenosis. L2-L3: Disc osteophyte complex again seen, unchanged. Facet joint hypertrophy. There is severe spinal canal stenosis with effacement of the CSF. Moderate to severe left and moderate right foraminal stenosis. L3-L4: Disc osteophyte complex again identified. No significant spinal canal stenosis. Moderate left and mild right foraminal stenosis. L4-L5: Disc bulge/osteophyte complex. No significant spinal canal stenosis. Moderate left and mild right foraminal stenosis. L5-S1: Disc ossified complex and facet joint arthropathy. Mild spinal canal stenosis. Mild right foraminal stenosis. Procedure Note Moraima Shelton MD - 06/26/2022 MRI LUMBAR SPINE (NEURO) WITHOUT CONTRAST TECHNIQUE: MRI LUMBAR SPINE (NEURO) WITHOUT CONTRAST Multi-sequence, multi-planar MRI of the lumbar spine was performed withoutintravenous contrast. COMPARISON: Lumbar spine MRI from July 12, 2021. FINDINGS: LUMBAR SPINE: Alignment and Vertebrae: There is a dextroconvex scoliosis of the spine,unchanged. 1 anterolisthesis seen at L4-L5 and L5-S1, unchanged. Vertebralbody height is normal. No compression fracture. Marrow: No bone marrow replacing lesion. Discs and Endplates: Loss of intervertebral disc height noted at everylevel as seen on previous exam, unchanged. Sclerotic changes noted in theL2-L3 level anteriorly, unchanged. Conus: The tip of the conus ends at L1-L2. Soft Tissues: No prevertebral edema. There is atrophy of the paraspinousmuscles. Other Findings: A large T2 hyperintensity is seen in the leftretroperitoneum, likely a renal cyst, measuring 6 cm. There is a nodule inthe left adrenal gland measuring 2.1 cm, grossly stable. No acuteabnormality otherwise detected in the visualized retroperitoneum. Findings by level: T11-T12: Disc osteophyte complex seen. Mild facet joint arthropathy. Mildspinal canal stenosis. Moderate right foramina stenosis, unchanged. T12-L1: Disc/osteophyte complex and facet joint arthropathy, grosslystable. There is mild to moderate encroachment of the spinal canal. Thereis a possible tiny central extrusion. Moderate right foraminal stenosis. L1-L2: Disc/osteophyte complex. Central disc extrusion seen with caudalmigration, stable. Facet joint hypertrophy. Mild to moderate canalstenosis, unchanged. Moderate right and mild left foraminal stenosis. L2-L3: Disc osteophyte complex again seen, unchanged. Facet jointhypertrophy. There is severe spinal canal stenosis with effacement of theCSF. Moderate to severe left and moderate right foraminal stenosis. L3-L4: Disc osteophyte complex again identified. No significant spinalcanal stenosis. Moderate left and mild right foraminal stenosis. L4-L5: Disc bulge/osteophyte complex. No significant spinal canalstenosis. Moderate left and mild right foraminal stenosis. L5-S1: Disc ossified complex and facet joint arthropathy. Mild spinalcanal stenosis. Mild right foraminal stenosis. IMPRESSION: 1.Dextroconvex scoliosis. 2.L4-L5 and L5-S1 anterolisthesis, unchanged. 3.Extensive degenerative disc changes and facet arthropathy in the lowerthoracic spine and lumbar spine with canal stenosis, severe at L2-L3,unchanged. 4.Multilevel foramina stenosis, as above. 5. Left adrenal gland nodule, unchanged. Other findings as above,unchanged. Rolando Tomas DO IMG MR XSPECIALTY Final Resu lt documented in this encounter Visit Diagnoses Diagnosis Post laminectomy syndrome- Primary Postlaminectomy syndrome, unspecified region Post laminectomy syndrome Postlaminectomy syndrome, unspecified region documented in this encounter Care Teams Librarian Special Library Relationship Specialty Start Date End Date Ricardo Breen MD [address] [place] [address] [place], EBEN [address] PCP - General Internal Medicine 04/08/18 documented as of this encounter Additional Source Comments The information contained in this document represents components of the legal health record. It is not the complete legal health record.[facility]
== END 2025-05-05 13:43 | disposition home or self-care (01) ==
LOC: HO.HCS 13:16
PROVIDERS: PCP Family Medicine; Visit Provider Internal Medicine
DX: I25.10 Atherosclerotic heart disease of native coronary artery without angina pectoris (principal); Z95.1 Presence of aortocoronary bypass graft; I48.0 Paroxysmal atrial fibrillation; I35.0 Nonrheumatic aortic (valve) stenosis; I12.9 Hypertensive chronic kidney disease with stage 1 through stage 4 chronic kidney disease, or unspecified chronic kidney disease; E78.5 Hyperlipidemia, unspecified; N18.9 Chronic kidney disease, unspecified
CPT/HCPCS: 99214; G2211

== ENCOUNTER → 2025-05-05 13:15 | Outpatient (BNVA) | payer MEDICARE, OTHER, SELFPAY | PROVIDERS: PCP Family Medicine; Visit Provider Internal Medicine | DX: I25.10 Atherosclerotic heart disease of native coronary artery without angina pectoris (principal); Z95.1 Presence of aortocoronary bypass graft; I48.0 Paroxysmal atrial fibrillation; I35.0 Nonrheumatic aortic (valve) stenosis; I12.9 Hypertensive chronic kidney disease with stage 1 through stage 4 chronic kidney disease, or unspecified chronic kidney disease; E78.5 Hyperlipidemia, unspecified; N18.9 Chronic kidney disease, unspecified | CPT/HCPCS: 99212 ==

== ENCOUNTER → 2025-05-07 12:53 | Outpatient (BNVA) | payer MEDICARE, OTHER, SELFPAY | PROVIDERS: Visit Provider Urology | DX: Z46.6 Encounter for fitting and adjustment of urinary device (principal); N39.0 Urinary tract infection, site not specified | CPT/HCPCS: 51705 ==

== ENCOUNTER 2025-05-13 12:13 | Outpatient (REF) | payer MEDICARE, OTHER, SELFPAY ==
--- OUTSIDE RECORDS SUMMARY | 2024-10-15 10:45 | XMS_ITS ---
Author Organization [facility] Address [address] [facility] [place] [address] Care Team Providers Care Unit Operator Name Role Phone NelsonCristina edmondson Primary Care Provider Jeanette De Leon Unavailable [phone] Sylvia Nguyễn Unavailable [phone] Allergies Allergen (clinical drug ingredient) Drug/Non Drug [...] Active Encounters Encounter Location Date Provider Diagnosis [facility] [address] [address] 10/15/2024 Sylvia Nguyễn Plan Of Treatment Next Appt Details Provider Name:Bishnu Cervantes , 06/18/2025 11:15:00 AM, [address] [place] [address], [phone], Progress Notes * Kaitlin BROWN MDOB:[birth year] (79 yo F)Acc No.[id number]:10/15/2024 Progress Note Patient: Paulette URIBEne Noel Provider: Sid Nguyễn DPM :1945 A ge:79 Y S ex:Female Date:10/15/2024 Address:[address] [place], [place] [id number] Pcp:Cristina Damon Subjective: * Chief Complaints: * [...] 0 10/15/2024 Generated for Jeny ball/Chance/Pallavi on: 05/13/2025 01:40 PM EDT
--- OUTSIDE RECORDS SUMMARY | 2025-01-22 07:15 | XMS_ITS ---
Author Organization [facility] Address [address] [place] [address] Care Team Providers Care Manager Customer Service Name Role Phone Cristina Damon Primary Care Provider Jeanette De Leon Unavailable [phone] Encounters Encounter Location Date Provider Diagnosis [address] [address] 01/22/2025 Jeanette Messer Plan Of Treatment Next Appt Details Provider Name:Bishnu Evansier , 06/18/2025 11:15:00 AM, [address] [place], [address], Progress Notes * Kaitlin BROWN MDOB:[birth year] (79 yo F)Acc No.[id number]:01/22/2025 Progress Note Patient: Kaitlin URIBE Provider: Miguel Messer DPM :1945 A ge:79 Y S ex:Female Date:01/22/2025 Address:[facility] [address] [place] Pcp:Cristina Damon Subjective: * Chief Complaints: * [...] 0 01/22/2025 Generated for Jeny ball/Chance/Pallavi on: 0 05/13/2025 01:40 PM EDT
--- OUTSIDE RECORDS SUMMARY | 2025-05-13 13:40 | XMS_ITS | Encounter Summary ---
Author Organization [facility] Address [address] [place] [address] Phone Care Team Providers Care Lead Caregiver Name Role Phone Ricardo Breen MD Primary Care Provider [phone] Encounter Details Date Type Department Care Team (Late st Contact Info) Description 06/05/2022 Procedure Pass [facility], [address] [address] Social History Tobacco Use Types Packs/Day Years [...] on filedocumented in this encounter Care Teams Lead Caregiver Relationship Specialty Start Date End Date Ricardo Breen MD [address] [place] [address] Dr CONNOR [address] [place] [address] PCP - General Internal Medicine 04/08/18 documented as of this encounter Additional Source Comments The information contained in this document represents components of the legal health record. It is not the complete legal health record.[facility]
--- OUTSIDE RECORDS SUMMARY | 2025-05-13 13:40 | XMS_ITS | Encounter Summary ---
Author Organization [facility] Address [address] [place] [address] Phone Care Team Providers Care Research Spec Name Role Phone Kathy Connor Primary Care Provider [phone] Ricardo Breen MD Primary Care Provider [phone] Encounter Details Date Type Department Care Team (Late st Contact Info) Description 03/11/2018 Procedure Pass [facility], [address] [address] Social History Tobacco Use Types Packs/Day Years [...] on filedocumented in this encounter Care Teams Research Spec Relationship Specialty Start Date End Date Kathy Connor PA [email or web address] PCP - General 03/11/18 04/07/18 Ricardo Breen MD [address] [place] [address] Dr BARNETT [place], [place] [id number] PCP - General Internal Medicine 04/08/18 documented as of this encounter Additional Source Comments The information contained in this document represents components of the legal health record. It is not the complete legal health record.[facility]
--- OUTSIDE RECORDS SUMMARY | 2025-05-13 13:40 | XMS_ITS | Encounter Summary ---
Author Organization [facility] Address [address] [place] [address] Phone Care Team Providers Care Tube Fitter Name Role Phone Ricardo Breen MD Primary Care Provider [phone] Reason for Referral * MRI/CAT Scan - Closed Specialty Diagnoses / Procedures Referred By Yasir t Referred To Contact Radiology Diagnoses Post laminectomy syndrome Procedures MRI Lumbar Spine Rolando Tomas DO Phone: tel: fax: mailto:[email or web address] Referral ID Status Reason Start Date Expiration Date Visits Re quested Visits Authorized [id number] Closed 06/05/2022 06/05/2023 1 1 Encounter Details Date Type Department Care Team (Latest Contact Info) Description 06/05/2022 Transcribe Orders Virtual Department [address] [place] [address] Rolando Tomas DO [address] [place] [address] [email or web address] Post laminectomy syndrome (Primary Dx) Social History [...] region documented in this encounter Care Teams Tube Fitter Relationship Specialty Start Date End Date Ricardo Breen MD [address] [place] [address] [place], [place] [address] PCP - General Internal Medicine 04/08/18 documented as of this encounter Additional Source Comments The information contained in this document represents components of the legal health record. It is not the complete legal health record.[facility]
--- OUTSIDE RECORDS SUMMARY | 2025-05-13 13:40 | XMS_ITS | Encounter Summary ---
Author Organization [facility] Address [address] [place] [address] Phone Care Team Providers Care Slot Floor Attendant Name Role Phone Ricardo Breen MD Primary Care Provider [phone] Encounter Details Date Type Department Care Team (Late st Contact Info) Description 06/29/2021 Procedure Pass [facility], [address] [address] Social History Tobacco Use Types Packs/Day Years [...] on filedocumented in this encounter Care Teams Slot Floor Attendant Relationship Specialty Start Date End Date Ricardo Breen MD [address] [place] [address] Dr CONNOR [address] [place] [address] PCP - General Internal Medicine 04/08/18 documented as of this encounter Additional Source Comments The information contained in this document represents components of the legal health record. It is not the complete legal health record.[facility]
--- OUTSIDE RECORDS SUMMARY | 2025-05-13 13:40 | XMS_ITS | Encounter Summary ---
Author Organization [facility] Address [address] [place] [address] Care Team Providers Care Client Renewal Specialist Name Role Phone Jamshid Ricardo Jayla Primary Care Provider [phone] Encounter Details Date Type Department Care Team (Late st Contact Info) Description 02/10/2025 Documentation [facility] Case Management Department [address] [place] [address] Rachel Anaya Social History Tobacco Use Types Packs/Day Years Used Date Smoking Tobacco: Never Smokeless Tobacco: Never Alcohol Use Standard Drinks/Week Comments Never 0 (1 standard drink = 0.6 oz pur e alcohol) [facility] Utilities Answer Date Recorded In the past [...] Info) Description 07/14/2025 3:00 PM EST Follow-Up [facility] [address] [place] [address] Murali Hooker MD [address] [place] [address] documented as of this encounter Goals Goal Patient Goal Type Associated Problems Recent Progress Patient-Stated? Author Autogenera gaby Goal Care Plan Autogenerated Problem Bhakti Villatoro Rachel documented as of this encounter Visit Diagnoses Not on filedocumented in this encounter Additional Health Concerns Active Problems Noted Date Diagnosed Date Autogenerated Problem 01/20/2025 documented as of this encounter Care Teams Client Renewal Specialist Relationship Specialty Start Date End Date Ricardo Breen [address] [place] [address] [place] [address] PCP - General Internal Medicine 01/26/25 documented as of this encounter
--- OUTSIDE RECORDS SUMMARY | 2025-05-13 13:40 | XMS_ITS | Encounter Summary ---
Author Organization [facility] Address [address] [place] [address] [place] [address] Phone Care Team Providers Care Test Skein Winder Name Role Phone Kathy Connor Primary Care Provider [phone] Ellen Breen MD Primary Care Provider [phone] Reason for Referral * MRI/CAT Scan - Closed Specialty Diagnoses / Procedures Referred By Contiveth t Referred To Contact Radiology Diagnoses Cervical spinal stenosis Procedures MRI Cervical Spine Kathy Connor PA Phone: tel: fax: mailto:[email or web address] Referral ID Status Reason Start Date Expiration Date Visits Re quested Visits Authorized [id number] Closed 03/11/2018 03/11/2019 1 1 Encounter Details Date Type Department Care Team (Late st Contact Info) Description 03/11/2018 Ancillary Orders Virtual Department [address] [place] [address] Kathy Connor PA [address] [place] [address] [email or web address] Cervical spinal stenosis Social History Tobacco Use [...] advanced degenerative changes as outlined. POS - [id number] Narrative 03/19/2018 4:08 PM EDT COMPARISON: 03/03/2015. [...] advanced degenerative changes as outlined. POS - [id number] Kathy LEONARDO IMG MR XSPECIALTY Final Res ult documented in this encounter Visit Diagnoses Diagnosis Cervical spinal stenosis Spinal stenosis in cervical region Cervical spinal stenosis Spinal stenosis in cervical region documented in this encounter Care Teams Test Skein Winder Relationship Specialty Start Date End Date Kathy Connor PA [email or web address] PCP - General 03/11/18 04/07/18 Ellen Breen MD [address] [place] [address] [place] [address] PCP - General Internal Medicine 04/08/18 documented as of this encounter Additional Source Comments The information contained in this document represents components of the legal health record. It is not the complete legal health record.[facility]
--- OUTSIDE RECORDS SUMMARY | 2025-05-13 13:40 | XMS_ITS | Clinical Summary ---
Author Organization [facility] Address [address] [place] [address] Phone Care Team Providers Care Power Plant Electrician Name Role Phone Ricardo Breen MD Primary Care Provider Social History Tobacco Use Types Packs/Day Years [...] file Insurance MEDICARE PART A & B [facility] MEDICARE SUPPLEMENT MEDICARE PART A & B [facility] MEDICARE SUPPLEMENT MEDICARE PART A & B Member Subscriber Plan / Payer (Ef fective 2008-Present) Name:Jeri Brown Member ID:[id number] Relation to Subscriber:Self Name:Jeri Brown Subscriber ID:[id number] Payer ID:[id number] Group ID:Not on file Type:Medicare Address: [facility] [employer] [place] [id number] MEDICARE SUPPLEMENT MEDICARE PART A & B [facility] MEDICARE SUPPLEMENT MEDICARE PART A & B [facility] MEDICARE SUPPLEMENT MEDICARE PART A & B MEDICARE SUPPLEMENT MEDICARE PART A & B [facility] MEDICARE SUPPLEMENT MEDICARE PART A [place] [id number] [facility] MEDICARE SUPPLEMENT MEDICARE PART A & B [facility] MEDICARE SUPPLEMENT Care Teams Power Plant Electrician Relationship Specialty Start Date End Date Ricardo Breen MD [address] [place] [address] PCP - General Internal Medicine 04/08/18 Additional Source Comments The information contained in this document represents components of the legal health record. It is not the complete legal health record.[facility]
--- OUTSIDE RECORDS SUMMARY | 2025-05-13 13:40 | XMS_ITS | Clinical Summary ---
Author Organization [facility] Address [address] [address] Care Team Providers Care Camp Manager Name Role Phone Ricardo Breen MD Primary Care Provider [phone] Medications spironolactone (ALDACTONE) 25 MG tablet TAKE [...] age to complete this topic Care Teams Camp Manager Relationship Specialty Start Date End Date Ricardo Breen MD [address] [place] [address] [address] [place], [place] PCP - General 09/19/20
--- OUTSIDE RECORDS SUMMARY | 2025-05-13 13:40 | XMS_ITS | Encounter Summary ---
Author Organization [facility] Address [address] [facility] [address] [place], [place] [id number] Phone Care Team Providers Care Senior Policy Advisor Name Role Phone Ricardo Breen MD Primary Care Provider Encounter Details Date Type Department Care Team (Late st Contact Info) Description 04/08/2018 Ancillary Orders [facility], X-Ray - [address] [address] Brannon Perea MD [address] [place] [address] [email or web address] Cervical spondylosis without myelopathy Social History Tobacco [...] 3 mm of retrolisthesis of C4 on J0hbayk does not change appreciably in flexion but [...] myelopathy documented in this encounter Care Teams Senior Policy Advisor Relationship Specialty Start Date End Date Ricardo Breen MD [address] [place] [address] Dr [place], EBEN [address] PCP - General Internal Medicine 04/08/18 documented as of this encounter Additional Source Comments The information contained in this document represents components of the legal health record. It is not the complete legal health record.[facility]
--- OUTSIDE RECORDS SUMMARY | 2025-05-13 13:40 | XMS_ITS | Encounter Summary ---
Author Organization [facility] Address [address] [place] [address] Care Team Providers Care Grades 7 And 8 Teacher Name Role Phone Jamshid Ricardo S Primary Care Provider [phone] Reason for Visit * Reason Onset Date Comments PAC Patient Request Call Back 04/20/2025 Encounter Details Date Type Department Care Team (Late st Contact Info) Description 04/20/2025 Telephone [facility] [address] [place], [place] [phone] Fur Scraper: Edda Santos Telephone Intake, Staff PAC Patient Request Call Back Social History Tobacco Use Types Packs/Day Years Used Date Smoking Tobacco: Never Smokeless Tobacco: Never Alcohol Use Standard Drinks/Week Comments Never 0 (1 standard drink = 0.6 oz pur e alcohol) [place] Utilities Answer Date Recorded In the past [...] to be faxed to Tiesha Miller from [facility]. Patient declined an in person appt and would like a telephone call instead if possible. Please advise. documented in this encounter Plan of Treatment Upcoming Encounters Date Type Department Care Team (Late st Contact Info) Description 07/14/2025 3:00 PM EST Follow-Up [facility] [address] [place] [address] Murali Hooker MD [address] [place] [address] documented as of this encounter Goals Goal Patient Goal Type Associated Problems Recent Progress Patient-Stated? Author Autogenera gaby Goal Care Plan Autogenerated Problem No Rachel Villatoro documented as of this encounter Visit Diagnoses Not on filedocumented in this encounter Additional Health Concerns Active Problems Noted Date Diagnosed Date Autogenerated Problem 01/20/2025 documented as of this encounter Care Teams Grades 7 And 8 Teacher Relationship Specialty Start Date End Date Ricardo Breen [address] [place] [address] [place] [address] PCP - General Internal Medicine 01/26/25 documented as of this encounter
--- OUTSIDE RECORDS SUMMARY | 2025-05-13 13:41 | XMS_ITS | Encounter Summary ---
Author Organization [facility] Address [address] [place] [address] [place] [address] Phone Care Team Providers Care Drive Man Name Role Phone Ricardo Breen MD Primary Care Provider [phone] Reason for Referral * MRI/CAT Scan - Closed Specialty Diagnoses / Procedures Referred By Yasir t Referred To Contact Radiology Diagnoses Lumbar radiculopathy Procedures MRI Lumbar Spine Rolando Tomas DO Phone: tel: fax: [email or web address] Referral ID Status Reason Start Date Expiration Date Visits Re quested Visits Authorized [id number] Closed 06/29/2021 06/29/2022 1 1 Encounter Details Date Type Department Care Team (Latest Contact Info) Description 06/29/2021 Ancillary Orders Virtual Department [address] [place] [address] Rolando Tomas DO [address] [place] [address] [email or web address] Lumbar radiculopathy Social History Tobacco Use Types [...] be performed for further evaluation. POS - [id number] Narrative 07/13/2021 8:26 AM EDT HISTORY: Chronic [...] could be performedfor further evaluation. POS - [id number] us Rolando Tomas DO IMG MR XSPECIALTY Final Resu lt documented in this encounter Visit Diagnoses Diagnosis Lumbar radiculopathy Thoracic or lumbosacral neuritis or radiculitis, unspecified Lumbar radiculopathy Thoracic or lumbosacral neuritis or radiculitis, unspecified documented in this encounter Care Teams Drive Man Relationship Specialty Start Date End Date Ricardo Breen MD [address] [place] [address] [place] [address] PCP - General Internal Medicine 04/08/18 documented as of this encounter Additional Source Comments The information contained in this document represents components of the legal health record. It is not the complete legal health record.[facility]
--- OUTSIDE RECORDS SUMMARY | 2025-05-13 13:41 | XMS_ITS | Continuity of Care Document ---
Author Organization [facility] [address] [facility] [address] [place] [address] Phone [phone] Social History Type Date Description Comments Sex [...]
--- OUTSIDE RECORDS SUMMARY | 2025-05-13 13:41 | XMS_ITS | Clinical Summary ---
Author Organization [facility] Address [address] [place] [address] Care Team Providers Care Welfare Director Name Role Phone Ricardo Breen Primary Care Provider [phone] Allergies Active Allergy Reactions Criticality Noted Date [...] Type Department Care Team Description 04/27/2025 Telephone [facility] [address] [place] [address] Pickling Operator: Adeola Ernandez NP 04/20/2025 Telephone [facility] [address] [place] [address] Pickling Operator: Edda Santos Telephone Intake, Staff PAC Patient Request Call Back 04/12/2025 1:30 PM EDT Follow-Up [facility] [address] [place] [address] Murali Hooker MD 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, subsequent encounter (Primary Dx) 03/24/2025 Telephone [facility] [address] [place] [address] Pickling Operator: Edda Ya, Referring PAC Patient Request Call Back; PAC Appt Request - Established Adeola Miller NP 03/24/2025 Telephone [facility] [address] [place] [address] Pickling Operator: Adeola Ernandez NP 03/08/2025 4:00 PM EDT Telehealth [facility] [address] [place] [address] Pickling Operator: Adeola Ernandez NP 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, initial encounter (HCC) (Primary Dx); Staphylococcal infection 02/17/2025 1:30 PM EDT Follow-Up [facility] [address] [place] [address] Pickling Operator: Adeola Ernandez NP 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, subsequent encounter (Primary Dx); Staphylococcal infection; Chronic UTI 02/12/2025 1:00 PM EDT Follow-Up [facility] [address] [place] [address] Alejo Davis PA 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, subsequent encounter (Primary Dx); 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 02/12/2025 12:12 PM EDT - 02/12/2025 11:59 PM EDT Hospital Encounter [facility] Xray [address] [place] [address] Murali Hooker MD 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 Discharge Disposition: Home or Self Care () 02/10/2025 Documentation [facility] Case Management Department [address] [place] [address] Rachel Anaya from Last 3 Months Family History Medical [...] drink = 0.6 oz pur e alcohol) [facility] Utilities Answer Date Recorded In [...] Info) Description 07/14/2025 3:00 PM EST Follow-Up [facility] [address] [place] [address] Murali Hooker MD [address] [place], [place] [id number] Health Maintenance Due Date Last Done Comments 25 Hydroxy / Vitamin D 1946 CKD: Referral to Nephrology 1945 Hepatitis C Screening 1945 PTH 1946 Phosphorus 1946 Medicare AWV 1947 Urine Microalbumin 1956 DTaP,Tdap,and Td Vaccines (1 - Tdap) 1968 Osteoporosis Screening 1996 Zoster Vaccines (1 of 2) 1996 RSV Vaccine (60+ years old and patients) (1 - 1-dose 75+ series) 2021 Alcohol/Substance Use Screening 09/09/2024 Depression Screening and Follow-Up 09/09/2024 Health Care Proxy Review 09/09/2024 COVID-19 Vaccine ( season) 2025 11/17/2021, 05/19/2021, 04/24/2021, Additional history exists Influenza Vaccine (#1) 2025 , 06/09/2024, 06/25/2023, Additional history exists Basic Metabolic Panel 09/04/2025 05/05/2025 , 04/23/2025, 02/05/2025, Additional history exists Social Drivers of Health Annual Screening 01/26/2026 01/26/2025 Hemoglobin 05/05/2026 05/05/2025, 04/09, 02/05/2025, Additional history exists Pneumococcal Vaccine: 50+ Years Completed 05/26/2016, 04/29/2014 Hepatitis B Vaccines Aged Out No long er eligible based on patient's age to complete this topic Goals Goal Patient Goal Type Associated Problems Recent Progress Patient-Stated? Author Autogenera gaby Goal Care Plan Autogenerated Problem No Rachel Villatoro Medical Devices Implanted Type Area Weigher Alloy Device Identifier Shelf Expiration Date Model / Serial / Lot Cement Radiopaque Full Dose 40gr Simplex P - [id number] Implanted:Qty: 2 on 01/26/2025 by Murali Hooker MD at [facility] Implant Left: Hip JACLYN 07/09/2026 [id number] / / [id number] Insert Acetabular Eccentric 36mm 10 Degree Trident X3 - [id number] Implanted:Qty: 1 on 01/26/2025 by Murali Hooker MD at [facility] Implant Left: Hip JACLYN 04/15/2029 [id number] / / [id number] Head Femoral Anatomic V40 Vitallium Cocr Plus [id number] Lfit - [id number] Implanted:Qty: 1 on 01/26/2025 by Murali Hooker MD at [facility] Implant Left: Hip JACLYN 02/07/2028 [id number] / / [id number] Procedures * Due to [place] state law, this organization might not be sharing negative HIV tests. 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, subsequent encounter SEDIMENTATION RATE, AUTOMATED Routine 05/05/2025 2:41 PM EDT 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, initial encounter (HCC) Staphylococcal infection 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, subsequent encounter C-REACTIVE PROTEIN Routine 05/05/2025 2: 41 PM EDT 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, initial encounter (HCC) Staphylococcal infection 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 * (ABNORMAL) CBC Auto Differential (05/05/2025 2:41 PM EDT) Only the most recent of2 resultswithin the time period is included. White Blood Cell Count 8.8 3.8 - 10.8 Thousand/ uL 05/06/2025 4:23 AM EDT [facility] Red Blood Cell Count 3.73(L) 3.80 - 5.10 Million/u L 05/06/2025 4:23 AM EDT [facility] Hemoglobin 11.4(L) 11.7 - 15.5 g/dL 05/06/2025 4:23 AM EDT [facility] Hematocrit 35.3 35.0 - 45.0 % 05/06/2025 4:23 AM EDT [facility] MCV 94.6 80.0 - 100.0 fL 05/06/2025 4:23 AM EDT [facility] MCH 30.6 27.0 - 33.0 pg 05/06/2025 4:23 AM EDT [facility] MCHC 32.3 32.0 - 36.0 g/dL 05/06/2025 4:23 AM [facility] Comment: For adults, a slight decrease in the calculated MCHC value (in the range of 30 to 32 g/dL) is most likely not clinically significant; however, it should be interpreted with caution in correlation with other red cell parameters and the patient's clinical condition. RDW 14.4 11.0 - 15.0 % 05/06/2025 4:23 AM EDT [facility] Platelet Count 137(L) 140 - 400 Thousand/ uL 05/06/2025 4:23 AM [facility] MPV 12.6(H) 7.5 - 12.5 fL 05/06/2025 4:23 AM EDT [facility] Neutrophils 4,866 1,500 - 7,800 cells/uL 05/06/2025 4:23 AM [facility] Absolute Lymphocytes 2,966 850 - 3,900 cells/uL 05/06/2025 4:23 AM [facility] Absolute Monocytes 739 200 - 950 cells/uL 05/06/2025 4:23 AM [facility] Eosinophils 167 15 - 500 cells/uL 05/06/2025 4:23 AM [employer] Absolute Basophils 62 0 - 200 cells/uL 05/06/2025 4:23 AM [employer] Neutrophils 55.3 % 05/06/2025 4:23 AM [facility] Lymphocytes 33.7 % 05/06/2025 4:23 AM [employer] Monocytes 8.4 % 05/06/2025 4:23 AM [facility] Eosinophils 1.9 % 05/06/2025 4:23 AM [facility] Basophils 0.7 % 05/06/2025 4:23 AM [employer] Blood Structure of peripheral vein / Unknown 05/05/2025 2:41 PM EDT 05/06/2025 2:36 AM EDT Narrative [facility] - 05/06/2025 5:40 AM EDT FASTING:NO us Adeola Miller NP LAB BLOOD ORDERABLES Final Res ult [facility] [address], [place] [address], [place] [phone] [facility] [address] [address] * Sedimentation Rate (05/05/2025 2:41 PM EDT) Sed Rate By Modified Westergren 6 0 - 30 mm/h 05/06/2025 5:38 AM EDT [employer] [facility] Blood Structure of peripheral vein / Unknown 05/05/2025 2:41 PM EDT 05/06/2025 2:28 AM EDT Narrative [facility] - 05/06/2025 5:40 AM EDT FASTING:NO us Adeola Miller MEDICAL SUPERVISOR LAB BLOOD ORDERABLES Final Res ult [facility] [address], [facility] [place] [address], [place] [phone] [facility] [address] [address] * C-Reactive Protein (05/05/2025 2:41 PM EDT) C-Reactive Protein <3.0 <8.0 mg/L 05/06/2025 5:40 AM EDT [employer] [facility] Blood Structure of peripheral vein / Unknown 05/05/2025 2:41 PM EDT 05/06/2025 3:22 AM EDT Narrative [facility] - 05/06/2025 5:40 AM EDT FASTING:NO us Adeola Miller MEDICAL SUPERVISOR LAB BLOOD ORDERABLES Final Res ult [facility] [address], [facility] [place] [address], [place] [phone] [facility] [address] [address] * (ABNORMAL) Comprehensive Metabolic Panel (05/05/2025 2:41 PM EDT) Only the most recent of2 resultswithin the time period is included. [facility] Glucose 102 65 - 139 mg/dL 05/06/2025 4:40 AM [employer] [facility] Comment: Non-fasting reference interval BUN 32(H) 7 - 25 mg/dL 05/06/2025 4:40 AM [employer] [facility] Creatinine 1.82(H) 0.60 - 1.00 mg/dL 05/06/2025 4:40 AM [facility] eGFR 28(L) > OR = 60 mL/min/1. 73m2 05/06/2025 4:40 AM [employer] [facility] Bun/Creatinine Ratio 18 6 - 22 (calc) 05/06/2025 4:40 AM [facility] Sodium 139 135 - 146 mmol/L 05/06/2025 4:40 AM [facility] Potassium 5.6(H) 3.5 - 5.3 mmol/L 05/06/2025 4:40 AM [facility] Chloride 105 98 - 110 mmol/L 05/06/2025 4:40 AM [employer] Carbon Dioxide 27 20 - 32 mmol/L 05/06/2025 4:40 AM [employer] Calcium 9.4 8.6 - 10.4 mg/dL 05/06/2025 4:40 AM [employer] Protein, Total 6.1 6.1 - 8.1 g/dL 05/06/2025 4:40 AM [employer] Albumin 4.1 3.6 - 5.1 g/dL 05/06/2025 4:40 AM [employer] Globulin 2.0 1.9 - 3.7 g/dL (calc) 05/06/2025 4:40 AM [facility] Albumin/Globuli n Ratio 2.1 1.0 - 2.5 (calc) 05/06/2025 4:40 AM [facility] Bilirubin, Total 0.4 0.2 - 1.2 mg/dL 05/06/2025 4:40 AM [facility] Alkaline Phosphatase 52 37 - 153 U/L 05/06/2025 4:40 AM [employer] AST 15 10 - 35 U/L 05/06/2025 4:40 AM EDT [employer] [facility] ALT 12 6 - 29 U/L 05/06/2025 4:40 AM EDT [employer] [facility] Blood Structure of peripheral vein / Unknown 05/05/2025 2:41 PM EDT 05/06/2025 3:22 AM EDT Narrative [facility] - 05/06/2025 5:40 AM EDT FASTING:NO us Adeola Miller MEDICAL SUPERVISOR LAB BLOOD ORDERABLES Final Res ult [facility] [address] [place] [address] [address] Floor, [place] [address], [facility] [address] [place] [address] * XR Hip Left 2 Views And [...] to obtain the completed interpretation. Workstation ID: [id number] Narrative 02/12/2025 6:15 PM EDT COMPARISON: 01/26/2025 FINDINGS AND Resulting Agency Comment [id number] Procedure Note William Muse DO - 02/12/2025 [...] possible to obtain thecompleted interpretation. Workstation ID: [id number] us Murali Hooker MD IMG XR PROCEDURES Final Res ult from Last 3 Months Additional Health Concerns Active Problems Noted Date Diagnosed Date Autogenerated Problem 01/20/2025 Insurance MEDICARE [facility] * Guarantor: JERI BROWN Account Type Relation to Patient Date of Phone Billing Address Personal/Family MEDICARE [facility] SUPP Advance Directives * Full Code (Latest Code Status on File) Date Activated Date Inactivated Comments 01/26/2025 10:59 AM 02/05/2025 3:20 PM * Full Code Date Activated Date Inactivated Comments 01/26/2025 5:58 AM 01/26/2025 10:59 AM Care Teams Welfare Director Relationship Specialty Start Date End Date Ricardo Breen [address] [place] [address] [place] [id number] PCP - General Internal Medicine 01/26/25
--- OUTSIDE RECORDS SUMMARY | 2025-05-13 13:41 | XMS_ITS | Patient Health Record ---
Author Organization [facility] Address [address] [place] [address] Care Team Providers Care Silk Screen Operator Name Role Phone Cristina Damon Primary Care Provider UnavailJeanette Santoro Unavailable [phone] Bishnu Cervantes Unavailable [phone] Sylvia Nguyễn Unavailable [phone] Allergies Allergen (clinical drug ingredient) Drug/Non Drug [...] Problem Acquired hammer toe of right foot (9871304125681351 ) Other hammer toe(s) (acquired), right foot (M20.41) Active confirmed Problem Acquired hammer toe of left foot (1970595466192183 ) Other hammer toe(s) (acquired), left foot (M20.42) Active confirmed Problem Polyneuropathy due to type 2 diabetes mellitus (759098523) Type 2 diabetes mellitus with diabetic polyneuropathy (E11.42) Active confirmed Vital Signs Blood pressure diastolic 60 mm Hg 03/23/2025 Height 5 ft 4 in in 03/23/2025 Blood pressure systolic 140 mm Hg 03/23/2025 Weight 195 lbs 03/23/2025 BMI 33.47 kg/m2 03/23/2025 Procedures Procedure Date Ordered Date Performed Result Body Sit e 30873-XMHQWJA NAIL, 6 OR MORE 07/16/2024 N/A 58199-OUMP SKIN LESIONS, 2 TO 4 07/16/2024 N/A 96120-BCDWCDS NAIL, 6 OR MORE 03/23/2025 N/A 91253-DRYU SKIN LESIONS, 2 TO 4 03/23/2025 N/A Encounters Encounter Location Date Provider Diagnosis [address] [address] 07/16/2024 Sylvia Nguyễn Type 2 diabetes mellitus with diabetic polyneuropathy E11.42 and Tinea unguium B35.[address] [address] 10/23/2024 Jeanette Messer Type 2 diabetes mellitus with diabetic polyneuropathy E11.42 ; 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 ; Tinea unguium B35.1 ; Pain in right ankle and joints of right foot M25.571 ; Other hammer toe(s) (acquired), right foot M20.41 ; Other hammer toe(s) (acquired), left foot M20.42 and Local edema R60.[address] [address] 03/23/2025 [place] Type 2 diabetes mellitus with diabetic polyneuropathy E11.42 ; Tinea unguium B35.1 ; Other hammer toe(s) (acquired), right foot M20.41 and Other hammer toe(s) (acquired), left foot M20.[address] [address] 10/14/2024 Sylvia Nguyễn [address] [address] 10/28/2024 Jeanette Messer [address] [address] 12/18/2024 Jeanette Messer [address] [address] 12/18/2024 Jeanette Messer [facility] [place] [address] [place] [address] 03/23/2025 Jeanette Messer Assessments Encounter Date Diagnosis [...] pdf) 10/23/2024 Tinea unguium (ICD-10 - B35.1) 10/23/2024 [...] X ray : Foot, right 3V 10/23/2024 77228-TOMLCUY NAIL, 6 OR MORE 07/16/2024 77624-XIDDHVP NAIL, 6 OR MORE 03/23/2025 06887-ETSOYUF NAIL, 1-5 05/05/2018 97359-EESQGXZ NAIL, 1-5 07/21/2018 20306-BPCSYPP NAIL, 1-5 10/13/2018 74922, J0702- INJECT or DRAIN, JOINT/BUR SA 05/05/2018 76264-USQQ SKIN LESIONS, OVER 4 05/05/20 18 18090-HUEB SKIN LESIONS, OVER 4 07/21/20 18 06555-YGIP SKIN LESIONS, OVER 4 01/13/20 19 53078-IOLM SKIN LESIONS, OVER 4 04/13/20 19 47934-BOAL SKIN LESIONS, OVER 4 10/13/19 19 90946-HSFI SKIN LESIONS, OVER 4 12/06/19 21 42793-FSUB SKIN LESIONS, OVER 4 05/08/20 21 89186-GNRD SKIN LESIONS, OVER 4 10/18/19 22 09759-GPKX SKIN LESIONS, OVER 4 08/01/20 20 34714-FQOR SKIN LESIONS, OVER 4 03/30/20 20 39349-ZEQM SKIN LESIONS, OVER 4 07/13/20 19 64337-HDSQ SKIN LESIONS, OVER 4 10/12/19 20 90592-EJKC SKIN LESIONS, 2 TO 4 07/16/20 24 74301-CQZV SKIN LESIONS, 2 TO 4 02/20/20 18 01398-PKGK SKIN LESIONS, 2 TO 4 03/23/20 25 34149, M8042-ZMJUU/INJECT, JOINT/BURSA 0 10/13/2018 H0489-GGACMAUS DYSTROPHIC NAILS ANY # H4065-OBDMDRLC DYSTROPHIC NAILS ANY # J4798-SQCPMMJG DYSTROPHIC NAILS ANY # P4536-PUYMDECQ DYSTROPHIC NAILS ANY # L8481-QOEBELPK DYSTROPHIC NAILS ANY # C6665-FHMUQNZS DYSTROPHIC NAILS ANY # Y5747-UOXEVIZJ DYSTROPHIC NAILS ANY # L6328-WONMQVMK DYSTROPHIC NAILS ANY # B1763-TKVNHCLG DYSTROPHIC NAILS ANY # 72180- Nail Unit Biopsy 02/19/2018 Next Appt Details Provider Name:Bishnu Cervantes , 06/18/2025 11:15:00 AM, [address] [facility], [place], [address], Insurance Providers Payer Name Payer Address Payer Phone Subscriber Number Group Number Insured Name Patient Relationship to Insured Coverage Start Date Coverage End Date Medicare National [employer] [address] [place] [address] [id number] Kaitlin Ortiz Self - patient is the insured [address] [place] [address] [address] [place] [address] [phone] [id number] Kaitlin Ortiz Self - patient is the [...]
== END 2025-05-13 12:14 | disposition home or self-care (01) ==
LOC: HO.LNP 12:13
PROVIDERS: Visit Provider Urology
DX: R39.9 Unspecified symptoms and signs involving the genitourinary system (principal)
CPT/HCPCS: 87086; 87088; 87186

== ENCOUNTER 2025-05-14 13:03 | Outpatient (AMB) | payer MEDICARE, OTHER, SELFPAY ==
--- NOTE | 2025-05-14 13:05 | A.OFFVIS_ITS ---
Intake Visit Reasons: 6M follow up Intake Note: Patient is present for 6 mo follow up for UTI Urology Medication:VIT-C, OXYBUTNIN Antibiotic Allergy:AMOXICILLIN,CIPROFLOXACIN,PENICILLIN,LEVOFLOXACIN,DOXAZSIN,CEPHALEXIN Blood Thinner:ASPIRIN Net Mvc Developer Required: No Accompanied by: Self / Same As Patient Allergies amoxicillin (AMOXICILLIN) Allergy (Severe, Verified 05/14/25 13:07) stroke, blood clots ciprofloxacin (From CIPRO) Allergy (Severe, Verified 05/14/25 13:07) ANAPHYLAXIS Iodinated Contrast Media (IV DYE, IODINE CONTAINING CONTRAST ) Allergy (Severe, Verified 05/14/25 13:07) HIVES levofloxacin Allergy (Severe, Verified 05/14/25 13:07) Anaphylaxis liraglutide Allergy (Severe, Verified 05/14/25 13:07) Headache Penicillins Allergy (Severe, Verified 05/14/25 13:07) stroke, blood clots FREYA Inhibitors Allergy (Intermediate, Verified 05/14/25 13:07) Cough ARB-Angiotensin Receptor Antagonist Allergy (Intermediate, Verified 05/14/25 13:07) Cough cefpodoxime Allergy (Intermediate, Verified 05/14/25 13:07) Dizziness, nausea doxazosin Allergy (Intermediate, Verified 05/14/25 13:07) Shortness of Breath fluticasone (Advair Diskus) Allergy (Intermediate, Verified 05/14/25 13:07) Anxiety gabapentin (From Neurontin) Allergy (Intermediate, Verified 05/14/25 13:07) Headache hydralazine Allergy (Intermediate, Verified 05/14/25 13:07) Shortness of Breath latex Allergy (Intermediate, Verified 05/14/25 13:07) Hives linezolid Allergy (Intermediate, Verified 05/14/25 13:07) Nausea and Vomiting meloxicam Allergy (Intermediate, Verified 05/14/25 13:07) Unknown salmeterol (Advair Diskus) Allergy (Intermediate, Verified 05/14/25 13:07) Anxiety Tetanus Vaccines and Toxoid Allergy (Intermediate, Verified 05/14/25 13:07) Swelling torsemide Allergy (Intermediate, Verified 05/14/25 13:07) Shortness of Breath cephalexin (Keflex) Allergy (Mild, Verified 05/14/25 13:07) Nausea HPI Comments Details: Kaitlin is a very pleasant female. She is a patient of Dr. Tijerina. She is here for the following urologic conditions - neurogenic bladder - recurrent UTI - nephrolithiasis - stress incontinence Continuous drainage Suprapubic tube is rotated every 3 weeks Receives IV antibiotics for recurrent infection Cardiac bypass 2023 Urinary retention with incomplete bladder emptying Incomplete emptying Suprapubic tube placed October 2021 Background of diabetes Has CLL and is on chronic immunosuppression which increases risk of infection substantially Nephrolithiasis 11/28 - ultrasound bilateral stones 8 mm left, 5 mm right Urinary Tract Infection: Last UTI - ceftriaxone 1gm daily 5 days They present for recurrent UTI's. Associated constipation - allergies to cipro - did have penicillin desensitization. The frequency of recurrences has been persistent recurrence. Therapy has included - Gentamicin instillation - macrobid - not well tolerated 06/27 Augmentin and 3rd generation all capsules poor in 07/28 Macrobid and 3rd generation careful support. Prior cultures have shown 05/25 - klebsiella sp.- Gentamicin resistant 06/25 - MicroDNA - enteroccus/E.coli 10^4 Bactrim/macrobid/levaquin 12/25 Microgen - 3 species - levaquin/ cefpodoxime 12/26 E.Coli levaquin/macrobid 05/28 E.Coli levaquin/gentamycin 06/27 E.Coli and Enterococcus 09/28 Strep Agalact - tx with 5 days kelfex. Recent testing included 09/28 Bladder biopsy with chronic inflammation - rectocele with incomplete emptying. Relevant medical history diabetes Yes constipation Yes incomplete bladder emptying Yes renal stones No genitourinary surgery Yes association of infections with intercourse No history of vesicoureteral reflux No Therapeutic plan will include suprapubic tube placement [facility] Medical History (Updated 05/14/25 @ 13:24 by Ceferino Hayes MD) PAF (paroxysmal atrial fibrillation) Suprapubic catheter Neuropathy Osteoarthritis Morbid obesity Allergy to multiple antibiotics Depression Arthritis of left hip Wears dentures Neurogenic urinary bladder disorder History of blood transfusion History of CVA (cerebrovascular accident) Seasonal allergies PONV (postoperative nausea and vomiting) Diabetes with neurologic complications Type 2 diabetes mellitus with unspecified complications Anemia CLL (chronic lymphocytic leukemia) Sleep apnea Arthritis Fibromyalgia Hypercholesterolemia Hypertension History of bilateral breast cancer Urinary retention with incomplete bladder emptying Surgical History History of cervical discectomy History of open heart surgery (~01/31/24) History of total left hip replacement S/P Botox injection History of suprapubic catheter S/P left breast biopsy History of esophagogastroduodenoscopy (EGD) Hx of colonoscopy History of bladder repair surgery History of total hysterectomy S/P breast biopsy, right History of back surgery History of biopsy of bladder Family History Mother Breast cancer Father Heart disease Father Lung cancer Mother Colon cancer Brother Pancreatic cancer Social History Household Members: Spouse Housing: House Housing Other:: has chair lift for second floor access Are you a primary customer care associate to a significant other at home: No Do you presently have visiting nurse or other home services: Yes (visiting nurse-recent in patient for UTI) Alcohol intake: never Comment: patient refused telesiter,removed per pt request Patient Tobacco Use Status: Never used Tobacco e-Cigarette/Vaping Use: Never Used Advance Directives Date on File: 07/30/23 service: No Current occupational status: retired Female Reproductive History Menstrual Age of Menarche: 15 Review of Systems Const Denies chills and Denies fever(s) Card Reports no additional complaints and Denies syncope Resp Denies cough GI Denies abdominal pain and Denies heartburn Reports as per HPI and Denies change in libido Neuro Denies syncope Psych Denies change in libido Endo Denies change in libido Physical Exam Const General: cooperative, healthy appearing, comfortable and no acute distress Orientation/consciousness: patient oriented x3 HEENT Face and sinus: Yes normal facial exam Mouth: moist mucous membranes Neck Neck: Yes normal visual inspection, Yes full ROM and Yes trachea midline Chest Chest palpation & inspection: normal inspection of the chest Resp Effort & Inspection: normal respiratory effort, able to speak in complete sentences and no respiratory distress GI Inspection: Yes normal to inspection Back/Spine/Pelvis Cervical Spine: normal cervical lordosis Thoracic/Lumbar Spine: thoracic and lumbar spine normal to inspection Skin General skin exam: no rashes or lesions noted Neuro General: patient oriented x3, gait normal, tone normal and moves all extremities Extrem General: Yes normal to inspection and Yes capillary refill normal Assessment & Plan Assessment & Plan (1) Complicated urinary tract infection: Code(s): N39.0 - Urinary tract infection, site not specified Category: Medical (2) Suprapubic catheter: Code(s): Z93.59 - Other cystostomy status Category: Medical Plan Six-month follow-up Patient Instructions: This note is constructed using voice recognition software. While every effort has been made to ensure accuracy roof bolter errors may have been included. Imaging studies, laboratory and physical exam results were discussed and reviewed in detail. No major barriers to patient understanding were identified. An opportunity to ask questions regarding the treatment plan was provided. All questions were answered. The patient expressed understanding and agreement with the above treatment plan. The patient is aware they should contact our office by phone for worsening of their current condition or the appearance of new urologic symptoms. Compliance is encouraged with any medications and followup testing that is ordered. It is a privilege to participate in the urologic care of your patient. If you have any questions or concerns regarding treatment for the above conditions, or other urologic issues, please do not hesitate to contact me. The office telephone contact is [phone]. Sincerely, Dr Ceferino Hayes MD, [facility] - Urology Compassionate Specialist Care for the Genitourinary System Coding Level of Care Code Est Pt Level 3 (96034) Complex EM visit Add On G2211 Diagnoses Complicated urinary tract infection N39.0 Suprapubic catheter Z93.59
--- OUTSIDE RECORDS SUMMARY | 2025-05-14 13:14 | XMS_ITS | Clinical Summary ---
Author Organization [facility] Address [address] [place], [place] [id number] Phone Care Team Providers Care Oracle Ebs Consultant Name Role Phone Ricardo Breen MD [...] file Insurance MEDICARE PART A & B [facility] MEDICARE SUPPLEMENT MEDICARE PART A & B [facility] MEDICARE SUPPLEMENT MEDICARE PART A & B Member Subscriber Plan / Payer (Ef fective 2008-Present) Name:Jeri Brown Member ID:[id number] Relation to Subscriber:Self Name:Jeri Brown Subscriber ID:[id number] Payer ID:[id number] Group ID:Not on file Type:Medicare Address: [facility] [place] [id number] MEDICARE SUPPLEMENT MEDICARE PART A & B [facility] MEDICARE SUPPLEMENT MEDICARE PART A & B [facility] MEDICARE SUPPLEMENT MEDICARE PART A & B MEDICARE SUPPLEMENT MEDICARE PART A & B [facility] MEDICARE SUPPLEMENT MEDICARE PART A & [place] [id number] [facility] MEDICARE SUPPLEMENT MEDICARE PART A & B [facility] MEDICARE SUPPLEMENT Care Teams Oracle Ebs Consultant Relationship Specialty Start Date End Date Ricardo Breen MD [address] [place] [id number] PCP - General Internal Medicine 04/08/18 Additional Source Comments The information contained in this document represents components of the legal health record. It is not the complete legal health record.[facility]
--- OUTSIDE RECORDS SUMMARY | 2025-05-14 13:14 | XMS_ITS | Clinical Summary ---
Author Organization [facility] Facility Address [address] [address] Care Team Providers Care Ditch Repairer Name Role Phone Ricardo Breen MD Primary Care Provider [phone] Medications spironolactone (ALDACTONE) 25 MG tablet TAKE [...] age to complete this topic Care Teams Ditch Repairer Relationship Specialty Start Date End Date Ricardo Breen MD [address] [place] [address] [address] [place], [place] PCP - General 09/19/20
--- OUTSIDE RECORDS SUMMARY | 2025-05-14 13:14 | XMS_ITS | Encounter Summary ---
Author Organization [facility] Address [address] [place] [address] Phone Care Team Providers Care Ostomy Care Nurse Name Role Phone Ricardo Breen MD Primary Care Provider Encounter Details Date Type Department Care Team (Late st Contact Info) Description 06/29/2021 Procedure Pass [facility], [address] [address] Social History Tobacco Use Types Packs/Day Years [...] on filedocumented in this encounter Care Teams Ostomy Care Nurse Relationship Specialty Start Date End Date Ricardo Breen MD [address] [place] [address] Dr [address] [place] [address] PCP - General Internal Medicine 04/08/18 documented as of this encounter Additional Source Comments The information contained in this document represents components of the legal health record. It is not the complete legal health record.[facility]
--- OUTSIDE RECORDS SUMMARY | 2025-05-14 13:14 | XMS_ITS | Encounter Summary ---
Author Organization [facility] Address [address] [place] [address] Phone Care Team Providers Care Multifocal Lens Assembler Name Role Phone Kathy Connor Primary Care Provider [phone] Ricardo Breen MD Primary Care Provider [phone] Encounter Details Date Type Department Care Team (Late st Contact Info) Description 03/11/2018 Procedure Pass [facility], [address] [address] Social History Tobacco Use Types Packs/Day Years [...] on filedocumented in this encounter Care Teams Multifocal Lens Assembler Relationship Specialty Start Date End Date Kathy Connor PA [email or web address] PCP - General 03/11/18 04/07/18 Ricardo Breen MD [address] [place] [address] [address] [place], [place] [id number] PCP - General Internal Medicine 04/08/18 documented as of this encounter Additional Source Comments The information contained in this document represents components of the legal health record. It is not the complete legal health record.[facility]
--- OUTSIDE RECORDS SUMMARY | 2025-05-14 13:14 | XMS_ITS | Encounter Summary ---
Author Organization [facility] Address [address] [place] [address] Phone Care Team Providers Care Assistant Designer Name Role Phone Ricardo Breen MD Primary Care Provider [phone] Encounter Details Date Type Department Care Team (Late st Contact Info) Description 06/05/2022 Procedure Pass [facility], [address] [address] Social History Tobacco Use Types Packs/Day Years [...] on filedocumented in this encounter Care Teams Assistant Designer Relationship Specialty Start Date End Date Ricardo Breen MD [address] [place] [address] Dr [address] [place] [id number] PCP - General Internal Medicine 04/08/18 documented as of this encounter Additional Source Comments The information contained in this document represents components of the legal health record. It is not the complete legal health record.[facility]
--- OUTSIDE RECORDS SUMMARY | 2025-05-14 13:14 | XMS_ITS | Encounter Summary ---
Author Organization [facility] Address [address] [place] [address] Care Team Providers Care Roving Technician Name Role Phone Jamshid Ricardo Jayla Primary Care Provider [phone] Encounter Details Date Type Department Care Team (Late st Contact Info) Description 02/10/2025 Documentation [facility] Case Management Department [address] [place] [address] Rachel Anaya Social History Tobacco Use Types Packs/Day Years Used Date Smoking Tobacco: Never Smokeless Tobacco: Never Alcohol Use Standard Drinks/Week Comments Never 0 (1 standard drink = 0.6 oz pur e alcohol) [facility] Utilities Answer Date Recorded In the [...] Info) Description 07/14/2025 3:00 PM EST Follow-Up [facility] [address] [place] [address] Murali Hooker MD [address] [place] [address] documented as of this encounter Goals Goal Patient Goal Type Associated Problems Recent Progress Patient-Stated? Author Autogenera gaby Goal Care Plan Autogenerated Problem Bhakti Villatoro Archel documented as of this encounter Visit Diagnoses Not on filedocumented in this encounter Additional Health Concerns Active Problems Noted Date Diagnosed Date Autogenerated Problem 01/20/2025 documented as of this encounter Care Teams Roving Technician Relationship Specialty Start Date End Date Ricardo Breen [address] [place] [address] [place] [address] PCP - General Internal Medicine 01/26/25 documented as of this encounter
--- OUTSIDE RECORDS SUMMARY | 2025-05-14 13:14 | XMS_ITS | Encounter Summary ---
Author Organization [facility] Address [address] [place] [address] [place] [address] Phone Care Team Providers Care Payroll Supervisor Name Role Phone Kathy Connor Primary Care Provider [phone] Ellen Breen MD Primary Care Provider [phone] Reason for Referral * MRI/CAT Scan - Closed Specialty Diagnoses / Procedures Referred By Contiveth t Referred To Contact Radiology Diagnoses Cervical spinal stenosis Procedures MRI Cervical Spine Kathy Connor PA Phone: tel: fax: [email or web address] Referral ID Status Reason Start Date Expiration Date Visits Re quested Visits Authorized [id number] Closed 03/11/2018 03/11/2019 1 1 Encounter Details Date Type Department Care Team (Late st Contact Info) Description 03/11/2018 Ancillary Orders Virtual Department [address] [place] [address] Kathy Connor PA [address] [place] [address] [email or web address] Cervical spinal stenosis Social History Tobacco Use [...] advanced degenerative changes as outlined. POS - [id number] Narrative 03/19/2018 4:08 PM EDT COMPARISON: 03/03/2015. [...] advanced degenerative changes as outlined. POS - [id number] Kathy LEONARDO IMG MR XSPECIALTY Final Res ult documented in this encounter Visit Diagnoses Diagnosis Cervical spinal stenosis Spinal stenosis in cervical region Cervical spinal stenosis Spinal stenosis in cervical region documented in this encounter Care Teams Payroll Supervisor Relationship Specialty Start Date End Date Kathy Connor PA [email or web address] PCP - General 03/11/18 04/07/18 Ellen Breen MD [address] [place] [address] [place] [address] PCP - General Internal Medicine 04/08/18 documented as of this encounter Additional Source Comments The information contained in this document represents components of the legal health record. It is not the complete legal health record.[facility]
--- OUTSIDE RECORDS SUMMARY | 2025-05-14 13:14 | XMS_ITS | Clinical Summary ---
Author Organization [facility] Address [address] [place] [address] Care Team Providers Care Compounder Name Role Phone Ricardo Breen Primary Care Provider [phone] Allergies Active Allergy Reactions Criticality Noted Date [...] Type Department Care Team Description 04/27/2025 Telephone [facility] [address] [place] [address] Forest Economics Professor: Adeola Ernandez NP 04/20/2025 Telephone [facility] [address] [place] [address] Forest Economics Professor: Edda Santos Telephone Intake, Staff PAC Patient Request Call Back 04/12/2025 1:30 PM EDT Follow-Up [facility] [address] [place] [address] Murali Hooker MD 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, subsequent encounter (Primary Dx) 03/24/2025 Telephone [facility] [address] [place] [address] Forest Economics Professor: Edda aY, Referring PAC Patient Request Call Back; PAC Appt Request - Established Adeola Miller NP 03/24/2025 Telephone [facility] [address] [place] [address] Forest Economics Professor: Adeola Ernandez NP 03/08/2025 4:00 PM EDT Telehealth [facility] [address] [place] [address] Forest Economics Professor: Adeola Ernandez NP 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, initial encounter (HCC) (Primary Dx); Staphylococcal infection 02/17/2025 1:30 PM EDT Follow-Up [facility] [address] [place] [address] Forest Economics Professor: Adeola Ernandez NP 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, subsequent encounter (Primary Dx); Staphylococcal infection; Chronic UTI 02/12/2025 1:00 PM EDT Follow-Up [facility] [address] [place] [address] Alejo Davis PA 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 Utilities Answer Date Recorded In the [...] Info) Description 07/14/2025 3:00 PM EST Follow-Up [facility] [address] [place], [place] [id number] Murali Hooker MD [address] [place] [address] [phone] Health Maintenance Due Date Last Done Comments [...] Type Associated Problems Recent Progress Patient-Stated? Author Oksana griffin Goal Care Plan Autogenerated Problem No Persian, Rachel Medical Devices Implanted Type Area Foam Cutting Supervisor Device Identifier Shelf Expiration Date Model / Serial / Lot Cement Radiopaque Full Dose 40gr Simplex P - [id number] Implanted:Qty: 2 on 01/26/2025 by Murali Hooker MD at [facility] Implant Left: Hip JACLYN 07/09/2026 [id number] / / [id number] Insert Acetabular Eccentric 36mm 10 Degree Trident X3 - [id number] Implanted:Qty: 1 on 01/26/2025 by Murali Hooker MD at [facility] Implant Left: Hip JACLYN 04/15/2029 [id number] / / [id number] Head Femoral Anatomic V40 Vitallium Cocr Plus [id number] Lfit - [id number] Implanted:Qty: 1 on 01/26/2025 by Murali Hooker MD at [facility] Implant Left: Hip JACLYN 02/07/2028 [id number] / / [id number] Procedures * Due to [place] state law, this organization might not be [...] Last 3 Months Results * Due to [place] state law, this organization might not be sharing negative HIV tests. * (ABNORMAL) CBC Auto Differential (05/05/2025 2:41 PM EDT) Only the most recent of2 resultswithin the time period is included. White Blood Cell Count 8.8 3.8 - 10.8 Thousand/ uL 05/06/2025 4:23 AM [facility] Red Blood Cell Count 3.73(L) 3.80 - 5.10 Million/u L 05/06/2025 4:23 AM [facility] Hemoglobin 11.4(L) 11.7 - 15.5 g/dL 05/06/2025 4:23 AM [facility] Hematocrit 35.3 35.0 - 45.0 % 05/06/2025 4:23 AM [facility] MCV 94.6 80.0 - 100.0 fL 05/06/2025 4:23 AM EDT [facility] MCH 30.6 27.0 - 33.0 pg 05/06/2025 4:23 AM EDT [facility] MCHC 32.3 32.0 - 36.0 g/dL 05/06/2025 4:23 AM EDT [facility] Comment: For adults, a slight decrease in the calculated MCHC value (in the range of 30 to 32 g/dL) is most likely not clinically significant; however, it should be interpreted with caution in correlation with other red cell parameters and the patient's clinical condition. RDW 14.4 11.0 - 15.0 % 05/06/2025 4:23 AM EDT [facility] Platelet Count 137(L) 140 - 400 Thousand/ uL 05/06/2025 4:23 AM EDT [facility] MPV 12.6(H) 7.5 - 12.5 fL 05/06/2025 4:23 AM EDT [facility] Absolute Neutrophils 4,866 1,500 - 7,800 cells/uL 05/06/2025 4:23 AM EDT [facility] Absolute Lymphocytes 2,966 850 - 3,900 cells/uL 05/06/2025 4:23 AM [facility] Absolute Monocytes 739 200 - 950 cells/uL 05/06/2025 4:23 AM EDT [facility] Absolute Eosinophils 167 15 - 500 cells/uL 05/06/2025 4:23 AM EDT [facility] Absolute Basophils 62 0 - 200 cells/uL 05/06/2025 4:23 AM EDT [facility] Neutrophils 55.3 % 05/06/2025 4:23 AM EDT [facility] Lymphocytes 33.7 % 05/06/2025 4:23 AM [facility] Monocytes 8.4 % 05/06/2025 4:23 AM [facility] Eosinophils 1.9 % 05/06/2025 4:23 AM [facility] Basophils 0.7 % 05/06/2025 4:23 AM [facility] Blood Structure of peripheral vein / Unknown 05/05/2025 2:41 PM EDT 05/06/2025 2:36 AM EDT Narrative [facility] - 05/06/2025 5:40 AM EDT FASTING:NO us Adeola Miller NP LAB BLOOD ORDERABLES Final Res ult [facility] [address] [facility] [address] Floor, [place] [address], [facility] [address] [address] * Sedimentation Rate (05/05/2025 2:41 PM EDT) Pathologist [facility] Sed Rate By Modified Westergren 6 0 - 30 mm/h 05/06/2025 5:38 AM EDT [facility] Blood Structure of peripheral vein / Unknown 05/05/2025 2:41 PM EDT 05/06/2025 2:28 AM EDT Narrative [facility] - 05/06/2025 5:40 AM EDT FASTING:NO Adeola Miller PHYSICAL INSTRUCTOR LAB BLOOD ORDERABLES Final Res ult [facility] [address], [place] [address], [place] [phone] [facility] [address] [address] * C-Reactive Protein (05/05/2025 2:41 PM EDT) [facility] C-Reactive Protein <3.0 <8.0 mg/L 05/06/2025 5:40 AM EDT [facility] Blood Structure of peripheral vein / Unknown 05/05/2025 2:41 PM EDT 05/06/2025 3:22 AM EDT Narrative [facility] - 05/06/2025 5:40 AM EDT FASTING:NO Adeola Miller PHYSICAL INSTRUCTOR LAB BLOOD ORDERABLES Final Res ult [facility] [address], [place] [address], [place] [phone] [facility] [address] [address] * (ABNORMAL) Comprehensive Metabolic Panel (05/05/2025 2:41 PM EDT) Only the most recent of2 resultswithin the time period is included. [facility] Glucose 102 65 - 139 mg/dL 05/06/2025 4:40 AM [facility] Comment: Non-fasting reference interval BUN 32(H) 7 - 25 mg/dL 05/06/2025 4:40 AM [facility] Creatinine 1.82(H) 0.60 - 1.00 mg/dL 05/06/2025 4:40 AM [facility] eGFR 28(L) > OR = 60 mL/min/1. 73m2 05/06/2025 4:40 AM [facility] Bun/Creatinine Ratio 18 6 - 22 (calc) 05/06/2025 4:40 AM [facility] Sodium 139 135 - 146 mmol/L 05/06/2025 4:40 AM [facility] Potassium 5.6(H) 3.5 - 5.3 mmol/L 05/06/2025 4:40 AM [facility] Chloride 105 98 - 110 mmol/L 05/06/2025 4:40 AM [facility] Carbon Dioxide 27 20 - 32 mmol/L 05/06/2025 4:40 AM [facility] Calcium 9.4 8.6 - 10.4 mg/dL 05/06/2025 4:40 AM [facility] Protein, Total 6.1 6.1 - 8.1 g/dL 05/06/2025 4:40 AM [facility] Albumin 4.1 3.6 - 5.1 g/dL 05/06/2025 4:40 AM [facility] Globulin 2.0 1.9 - 3.7 g/dL (calc) 05/06/2025 4:40 AM [facility] Albumin/Globuli n Ratio 2.1 1.0 - 2.5 (calc) 05/06/2025 4:40 AM [facility] Bilirubin, Total 0.4 0.2 - 1.2 mg/dL 05/06/2025 4:40 AM [facility] Alkaline Phosphatase 52 37 - 153 U/L 05/06/2025 4:40 AM [facility] AST 15 10 - 35 U/L 05/06/2025 4:40 AM [facility] ALT 12 6 - 29 U/L 05/06/2025 4:40 AM [facility] Blood Structure of peripheral vein / Unknown 05/05/2025 2:41 PM EDT 05/06/2025 3:22 AM EDT Narrative [facility] - 05/06/2025 5:40 AM EDT FASTING:NO us Adeola Miller PHYSICAL INSTRUCTOR LAB BLOOD ORDERABLES Final Res ult [facility] [address] [facility] [address], [place] [address], [place] [phone] [facility] [address] [place] [address] * XR Hip Left 2 Views And [...] to obtain the completed interpretation. Workstation ID: [id number] Narrative 02/12/2025 6:15 PM EDT COMPARISON: 01/26/2025 FINDINGS AND Resulting Agency Comment [id number] Procedure Note William Muse, - 02/12/2025 COMPARISON: 01/26/2025 FINDINGS AND IMPRESSION: [...] possible to obtain thecompleted interpretation. Workstation ID: [id number] us Murali Hooker MD IMG XR PROCEDURES Final Res ult from Last 3 Months Additional Health Concerns Active Problems Noted Date Diagnosed Date Autogenerated Problem 01/20/2025 Insurance MEDICARE [facility] * Guarantor: JERI BROWN Account Type Relation to Patient Date of Phone Billing Address Personal/Family MEDICARE [facility] Advance Directives * Full Code (Latest Code Status on File) Date Activated Date Inactivated Comments 01/26/2025 10:59 AM 02/05/2025 3:20 PM * Full Code Date Activated Date Inactivated Comments 01/26/2025 5:58 AM 01/26/2025 10:59 AM Care Teams Compounder Relationship Specialty Start Date End Date Ricardo Breen [address] [place] [address] [place] [address] PCP - General Internal Medicine 01/26/25
--- OUTSIDE RECORDS SUMMARY | 2025-05-14 13:14 | XMS_ITS | Encounter Summary ---
Author Organization [facility] Address [address] [place] [address] Care Team Providers Care Apprentice Painter Hand Name Role Phone Jamshid Ricardo S Primary Care Provider [phone] Reason for Visit * Reason Onset Date Comments PAC Patient Request Call Back 04/20/2025 Encounter Details Date Type Department Care Team (Late st Contact Info) Description 04/20/2025 Telephone [facility] [address] [place], [place] [phone] Human Service Technician: Edda Santos Telephone Intake, Staff PAC Patient Request Call Back Social History Tobacco Use Types Packs/Day Years Used Date Smoking Tobacco: Never Smokeless Tobacco: Never Alcohol Use Standard Drinks/Week Comments Never 0 (1 standard drink = 0.6 oz pur e alcohol) [facility] Utilities Answer Date Recorded In the [...] to be faxed to Tiesha Miller from [facility]. Patient declined an in person appt and would like a telephone call instead if possible. Please advise. documented in this encounter Plan of Treatment Upcoming Encounters Date Type Department Care Team (Late st Contact Info) Description 07/14/2025 3:00 PM EST Follow-Up [facility] [address] [place] [address] Murali Hooker MD [address] [place] [address] documented as of this encounter Goals Goal Patient Goal Type Associated Problems Recent Progress Patient-Stated? Author Autogenera gaby Goal Care Plan Autogenerated Problem No Rachel Villatoro documented as of this encounter Visit Diagnoses Not on filedocumented in this encounter Additional Health Concerns Active Problems Noted Date Diagnosed Date Autogenerated Problem 01/20/2025 documented as of this encounter Care Teams Apprentice Painter Hand Relationship Specialty Start Date End Date Ricardo Breen [address] [place] [address] [place] [address] PCP - General Internal Medicine 01/26/25 documented as of this encounter
--- OUTSIDE RECORDS SUMMARY | 2025-05-14 13:14 | XMS_ITS | Encounter Summary ---
Author Organization [facility] Address [address] [place] [address] Phone Care Team Providers Care Hand Thermal Cutter Name Role Phone Ricardo Breen MD Primary Care Provider Reason for Referral * MRI/CAT Scan - Closed Specialty Diagnoses / Procedures Referred By Yasir t Referred To Contact Radiology Diagnoses Post laminectomy syndrome Procedures MRI Lumbar Spine Rolando Tomas DO Phone: tel: fax: [email or web address] Referral ID Status Reason Start Date Expiration Date Visits Re quested Visits Authorized [id number] Closed 06/05/2022 06/05/2023 1 1 Encounter Details Date Type Department Care Team (Latest Contact Info) Description 06/05/2022 Transcribe Orders Virtual Department [address] [place] [address] Rolando Tomas DO [address] [place] [address] [email or web address] Post laminectomy syndrome (Primary Dx) Social History [...] region documented in this encounter Care Teams Hand Thermal Cutter Relationship Specialty Start Date End Date Ricardo Breen MD [address] [place] [address] [place], [place] [address] PCP - General Internal Medicine 04/08/18 documented as of this encounter Additional Source Comments The information contained in this document represents components of the legal health record. It is not the complete legal health record.[facility]
--- OUTSIDE RECORDS SUMMARY | 2025-05-14 13:14 | XMS_ITS | Encounter Summary ---
Author Organization [facility] Address [address] [place] [address] [place] [address] Phone Care Team Providers Care Manufacturing Engineering Intern Name Role Phone Ricardo Breen MD Primary Care Provider Reason for Referral * MRI/CAT Scan - Closed Specialty Diagnoses / Procedures Referred By Yasir t Referred To Contact Radiology Diagnoses Lumbar radiculopathy Procedures MRI Lumbar Spine Rolando Tomas DO Phone: tel: fax: mailto:[email or web address] Referral ID Status Reason Start Date Expiration Date Visits Re quested Visits Authorized [id number] Closed 06/29/2021 06/29/2022 1 1 Encounter Details Date Type Department Care Team (Latest Contact Info) Description 06/29/2021 Ancillary Orders Virtual Department [address] [place] [address] Rolando Tomas DO [address] [place] [address] [email or web address] Lumbar radiculopathy Social History Tobacco Use Types [...] be performed for further evaluation. POS - [id number] Narrative 07/13/2021 8:26 AM EDT HISTORY: Chronic [...] could be performedfor further evaluation. POS - [id number] us Rolando Tomas DO IMG MR XSPECIALTY Final Resu lt documented in this encounter Visit Diagnoses Diagnosis Lumbar radiculopathy Thoracic or lumbosacral neuritis or radiculitis, unspecified Lumbar radiculopathy Thoracic or lumbosacral neuritis or radiculitis, unspecified documented in this encounter Care Teams Manufacturing Engineering Intern Relationship Specialty Start Date End Date Ricardo Breen MD [address] [place] [address] [place] [address] PCP - General Internal Medicine 04/08/18 documented as of this encounter Additional Source Comments The information contained in this document represents components of the legal health record. It is not the complete legal health record.[facility]
--- OUTSIDE RECORDS SUMMARY | 2025-05-14 13:14 | XMS_ITS | Encounter Summary ---
Author Organization [facility] Address [address] [facility] [address] [place], [place] [phone] Phone Care Team Providers Care Battery Charger Tester Name Role Phone Ricardo Breen MD Primary Care Provider [phone] Encounter Details Date Type Department Care Team (Late st Contact Info) Description 04/08/2018 Ancillary Orders [facility], X-Ray - [address] [address] Brannon Perea MD [address] [place] [address] [email or web address] Cervical spondylosis without myelopathy Social [...] 3 mm of retrolisthesis of C4 on [id number] does not change appreciably in flexion but [...] myelopathy documented in this encounter Care Teams Battery Charger Tester Relationship Specialty Start Date End Date Ricardo Breen MD [address] [place] [address] [place], [place] [address] PCP - General Internal Medicine 04/08/18 documented as of this encounter Additional Source Comments The information contained in this document represents components of the legal health record. It is not the complete legal health record.[facility]
== END 2025-05-14 13:26 | disposition home or self-care (01) ==
LOC: HO.HUSH 13:03
PROVIDERS: PCP Family Medicine; Visit Provider Urology
DX: N39.0 Urinary tract infection, site not specified (principal); Z93.59 Other cystostomy status
CPT/HCPCS: 99213; G2211

== ENCOUNTER → 2025-05-14 13:03 | Outpatient (BNVA) | payer MEDICARE, OTHER, SELFPAY | PROVIDERS: PCP Family Medicine; Visit Provider Urology | DX: N39.0 Urinary tract infection, site not specified (principal); Z87.442 Personal history of urinary calculi; Z93.59 Other cystostomy status; Z79.82 Long term (current) use of aspirin | CPT/HCPCS: 99212 ==

== ENCOUNTER 2025-05-19 14:56 | Outpatient (REF) | payer MEDICARE, OTHER, SELFPAY ==
[2025-05-19 17:22] LABS: Hemoglobin A1C 117.8495 umol/L
[2025-05-19 17:50] LABS: Alanine Aminotransferase 11 U/L (0-31); Albumin Level 4.1 g/dL (3.5-5.0); Alkaline Phosphatase 61 U/L (39-117); Anion Gap 15 (12-20); Aspartate Amino Transferase 18 U/L (5-31); Blood Urea Nitrogen 29 mg/dL (9-16); Calcium 9.6 mg/dL (8.4-10.2); Carbon Dioxide 27 mmol/L (22-29); Chloride 106 mmol/L (96-108); Estimated Glomerular Filt Rate 25; Potassium 5.5 mmol/L (3.3-5.1); Sodium 142 mmol/L (135-145); Total Protein 6.2 g/dL (6.5-8.0)
[2025-05-19 18:19] LABS: Folate 14.0 ng/mL (> or = 4.0); Vitamin B12 424 pg/mL (200-900)
== END 2025-05-19 14:57 | disposition home or self-care (01) ==
LOC: HO.LAB 14:56
PROVIDERS: Internal Medicine; Absent Provider Urology; PCP Physician Assistant; Visit Provider Physician Assistant
DX: E11.9 Type 2 diabetes mellitus without complications (principal); B37.2 Candidiasis of skin and nail
CPT/HCPCS: 36415; 80053; 82607; 82746; 83036; 84443; 99212

== ENCOUNTER 2025-05-19 14:56 | Outpatient (AMB) | payer MEDICARE, OTHER, SELFPAY ==
--- OUTSIDE RECORDS SUMMARY | 2024-10-15 10:45 | XMS_ITS ---
Author Organization [facility] Address [address] [facility] [place] [address] Care Team Providers Care Farmer Cash Grain Name Role Phone NelsonCristina edmondson Primary Care Provider Jeanette De Leon Unavailable [phone] Sylvia Nguyễn Unavailable [phone] Allergies Allergen (clinical drug ingredient) Drug/Non Drug [...] Active Encounters Encounter Location Date Provider Diagnosis [facility] [address] [address] 10/15/2024 Sylvia Nguyễn Plan Of Treatment Next Appt Details Provider Name:Bishnu Cervantes , 06/18/2025 11:15:00 AM, [address] [place] [address], [phone], Progress Notes * Kaitlin BROWN MDOB:[birth year] (79 yo F)Acc No.[id number]:10/15/2024 Progress Note Patient: Paulette URIBEne Noel Provider: Sid Nguyễn DPM :1945 A ge:79 Y S ex:Female Date:10/15/2024 Address:[address] [place], [place] [id number] Pcp:Cristina Damon Subjective: * Chief Complaints: * [...] Pending * Provider: Sid Nguyễn DPM Date: 10/15/2024 Generated for Jeny ball/Chance/Pallavi on: 05/19/2025 06:05 PM EDT
--- OUTSIDE RECORDS SUMMARY | 2025-01-22 07:15 | XMS_ITS ---
Author Organization [facility] Address [address] [place] [address] Care Team Providers Care Utility System Repairer Name Role Phone Cristina Damon Primary Care Provider Jeanette De Leon Unavailable [phone] Encounters Encounter Location Date Provider Diagnosis [address] [address] 01/22/2025 Jeanette Messer Plan Of Treatment Next Appt Details Provider Name:Bishnu Evansier , 06/18/2025 11:15:00 AM, [address] [place], [address], Progress Notes * Kaitlin BROWN MDOB:[birth year] (79 yo F)Acc No.[id number]:01/22/2025 Progress Note Patient: Kaitlin URIBE Provider: Miguel Messer DPM :1945 A ge:79 Y S ex:Female Date:01/22/2025 Address:[facility] [address] [place] Pcp:Cristina Damon Subjective: * Chief Complaints: * [...] 01/22/2025 Generated for Jeny ball/Chance/Pallavi on: 0 05/19/2025 06:05 PM EDT
--- NOTE | 2025-05-19 14:59 | A.OFFPC_ITS ---
Vital Signs 05/19/25 15:05 Height 5 ft 4 in Weight 92.986 kg BMI 35.2 BP 146/60 H Respiration 18 Pulse 59 Pulse Source Pulse Oximeter Temp 97.8 F Temp Source Temporal Artery Scan Pulse Oximetry (%) 92 Oxygen Delivery Method Room Air Intake Visit Reasons: Rash Head Transfer Clerk Required: No Accompanied by: Self / Same As Patient Allergies amoxicillin (AMOXICILLIN) Allergy (Severe, Verified 05/19/25 14:59) stroke, blood clots ciprofloxacin (From CIPRO) Allergy (Severe, Verified 05/19/25 14:59) ANAPHYLAXIS Iodinated Contrast Media (IV DYE, IODINE CONTAINING CONTRAST ) Allergy (Severe, Verified 05/19/25 14:59) HIVES levofloxacin Allergy (Severe, Verified 05/19/25 14:59) Anaphylaxis liraglutide Allergy (Severe, Verified 05/19/25 14:59) Headache Penicillins Allergy (Severe, Verified 05/19/25 14:59) stroke, blood clots FREYA Inhibitors Allergy (Intermediate, Verified 05/19/25 14:59) Cough ARB-Angiotensin Receptor Antagonist Allergy (Intermediate, Verified 05/19/25 14:59) Cough cefpodoxime Allergy (Intermediate, Verified 05/19/25 14:59) Dizziness, nausea doxazosin Allergy (Intermediate, Verified 05/19/25 14:59) Shortness of Breath fluticasone (Advair Diskus) Allergy (Intermediate, Verified 05/19/25 14:59) Anxiety gabapentin (From Neurontin) Allergy (Intermediate, Verified 05/19/25 14:59) Headache hydralazine Allergy (Intermediate, Verified 05/19/25 14:59) Shortness of Breath latex Allergy (Intermediate, Verified 05/19/25 14:59) Hives linezolid Allergy (Intermediate, Verified 05/19/25 14:59) Nausea and Vomiting meloxicam Allergy (Intermediate, Verified 05/19/25 14:59) Unknown salmeterol (Advair Diskus) Allergy (Intermediate, Verified 05/19/25 14:59) Anxiety Tetanus Vaccines and Toxoid Allergy (Intermediate, Verified 05/19/25 14:59) Swelling torsemide Allergy (Intermediate, Verified 05/19/25 14:59) Shortness of Breath cephalexin (Keflex) Allergy (Mild, Verified 05/19/25 14:59) Nausea Tobacco use date assessed: 04/15/25 HPI HPI Comments History of Present Illness Details 79-year-old female with history of CLL, CKD stage 3, hyperlipidemia, neurogenic urinary bladder disorder with recurrent UTI, history of Enterobacter bacteremia due to infected prosthesis of left hip among others presents to the office today for evaluation of a rash. She has been on multiple antibiotics for the past few months due to infected right hip prosthetic. She was previously on Mirapex item followed by gentamicin. She was then transitioned to Bactrim about 1.5 weeks ago, dose was subsequently lowered due to worsening renal function. Due to the rash that developed in her groin she stopped taking this several days ago. She has been taking a probiotic. She is diabetic but her glucose levels have been well-controlled. The rash has been growing and is now affecting the vulva. There is occasional pruritus and bleeding she has been using A&D ointment as well as zinc oxide ROS: see hpi EXAM: Constitutional - Awake and Alert, No apparent distress Eyes - PERRL Cardiovascular - S1S2, RRR, No edema Respiratory - Normal lung expansion, Normal respiratory effort, No respiratory distress, CTA bilaterally Extremities - no calf tenderness bilaterally, no swelling Skin - Warm/Dry. Moist erythematous rash the intertriginous area of the groin extending into the outer labia Neurological - Alert & oriented x3 Psychological - Appropriate affect PENDING SALE TO [facility] Medical History (Updated 05/21/25 @ 13:11 by MALISSA Bustillos) PAF (paroxysmal atrial fibrillation) Suprapubic catheter Neuropathy Osteoarthritis Morbid obesity Allergy to multiple antibiotics Depression Arthritis of left hip Wears dentures Neurogenic urinary bladder disorder History of blood transfusion History of CVA (cerebrovascular accident) Seasonal allergies PONV (postoperative nausea and vomiting) Diabetes with neurologic complications Type 2 diabetes mellitus with unspecified complications Anemia CLL (chronic lymphocytic leukemia) Sleep apnea Arthritis Fibromyalgia Hypercholesterolemia Hypertension History of bilateral breast cancer Urinary retention with incomplete bladder emptying Surgical History History of cervical discectomy History of open heart surgery (~01/31/24) History of total left hip replacement S/P Botox injection History of suprapubic catheter S/P left breast biopsy History of esophagogastroduodenoscopy (EGD) Hx of colonoscopy History of bladder repair surgery History of total hysterectomy S/P breast biopsy, right History of back surgery History of biopsy of bladder Family History Mother Breast cancer Father Heart disease Father Lung cancer Mother Colon cancer Brother Pancreatic cancer Social History Household Members: Spouse Housing: House Housing Other:: has chair lift for second floor access Are you a primary home health care respiratory therapist to a significant other at home: No Do you presently have visiting nurse or other home services: Yes (visiting nurse-recent in patient for UTI) Alcohol intake: never Comment: patient refused telesiter,removed per pt request Patient Tobacco Use Status: Never used Tobacco e-Cigarette/Vaping Use: Never Used Advance Directives Date on File: 07/30/23 service: No Current occupational status: retired Female Reproductive History Menstrual Age of Menarche: 15 Questionnaire Thrive Questionnaire Date Thrive assessed: 10/29/24 Physical exam (Primary Care) Vital Signs: Last Vital Signs Temp 97.8 F 05/19/25 15:05 Pulse 59 05/19/25 15:05 Resp 18 05/19/25 15:05 BP 146/60 H 05/19/25 15:05 Pulse Ox 92 05/19/25 15:05 Oxygen Delivery Method Room Air 05/19/25 15:05 BMI result Body Mass Index 35.2 Tobacco/Smoking Status: Tobacco use Status Tobacco use date assessed 04/15/25 05/19/25 15:02 Patient Tobacco Use Status Never used Tobacco 05/19/25 15:02 e-Cigarette/Vaping Use Never Used 05/19/25 15:02 Thrive Assessment: Date of Thrive Assessment Date Thrive assessed 10/29/24 05/19/25 15:02 Coding Level of Care Code Est Pt Level 3 (93455) Complex EM visit Add On G2211 Diagnoses Intertriginous candidiasis B37.2 Assessment & Plan Assessment & Plan (1) Intertriginous candidiasis: Code(s): B37.2 - Candidiasis of skin and nail Category: Medical Plan: Flow infection likely related to long-term antibiotic use. She is advised to take probiotic as well as eating yogurt. Nystatin cream t.i.d. prescribed. Do not feel rashes extensive enough at this time to warrant systemic antifungal, however can consider if symptoms are not improving. Plan Follow-up in the office in 6 months with labs completed prior to visit Orders: Orders Basic Metabolic Panel Today E11.59 - Type 2 diabetes mellitus with other circulatory complications, I10 - Essential (primary) hypertension, I48.0 - Paroxysmal atrial fibrillation, N18.9 - Chronic kidney disease, unspecified Lipid Panel Today E11.59 - Type 2 diabetes mellitus with other circulatory complications, I10 - Essential (primary) hypertension, I48.0 - Paroxysmal atrial fibrillation, N18.9 - Chronic kidney disease, unspecified Liver Panel Today E11.59 - Type 2 diabetes mellitus with other circulatory complications, I10 - Essential (primary) hypertension, I48.0 - Paroxysmal atrial fibrillation, N18.9 - Chronic kidney disease, unspecified Hemoglobin A1c Today E11.59 - Type 2 diabetes mellitus with other circulatory complications, I10 - Essential (primary) hypertension, I48.0 - Paroxysmal atrial fibrillation, N18.9 - Chronic kidney disease, unspecified Medications: New nystatin 1 appl topical TID PRN 30 grams 2RF fungal infec
[2025-05-19 15:05] VITALS: BP 146/60; PULSE 59; RESP 18; TEMP 36.6; O2SAT 92; BMI 35.2
--- OUTSIDE RECORDS SUMMARY | 2025-05-19 18:05 | XMS_ITS | Clinical Summary ---
Author Organization [facility] Facility Address [address] [address] Care Team Providers Care Residential Assistant Name Role Phone Ricardo Breen MD Primary Care Provider [phone] Medications spironolactone (ALDACTONE) 25 MG tablet TAKE [...] age to complete this topic Care Teams Residential Assistant Relationship Specialty Start Date End Date Ricardo Breen MD [address] [place] [address] [address] [place], [place] PCP - General 09/19/20
--- OUTSIDE RECORDS SUMMARY | 2025-05-19 18:05 | XMS_ITS | Continuity of Care Document ---
Author Organization [facility] [address] [place] [address] Phone [phone] Social History Type Date Description Comments Sex [...]
--- OUTSIDE RECORDS SUMMARY | 2025-05-19 18:05 | XMS_ITS | Encounter Summary ---
Author Organization [facility] Address [address] [place] [address] Phone Care Team Providers Care Assistant Men'S Lacrosse Coach Name Role Phone Ricardo Breen MD Primary Care Provider Reason for Referral * MRI/CAT Scan - Closed Specialty Diagnoses / Procedures Referred By Yasir t Referred To Contact Radiology Diagnoses Post laminectomy syndrome Procedures MRI Lumbar Spine Rolando Tomas DO Phone: tel: fax: mailto:[email or web address] Referral ID Status Reason Start Date Expiration Date Visits Re quested Visits Authorized [id number] Closed 06/05/2022 06/05/2023 1 1 Encounter Details Date Type Department Care Team (Latest Contact Info) Description 06/05/2022 Transcribe Orders Virtual Department [address] [place] [address] Rolando Tomas DO [address] [place] [address] [email or web address] Post laminectomy syndrome (Primary Dx) Social History [...] nodule, unchanged. Other findings as above,unchanged. Rolando Toams DO IMG MR XSPECIALTY Final Resu lt documented in this encounter Visit Diagnoses Diagnosis Post laminectomy syndrome- Primary Postlaminectomy syndrome, unspecified region Post laminectomy syndrome Postlaminectomy syndrome, unspecified region documented in this encounter Care Teams Assistant Men'S Lacrosse Coach Relationship Specialty Start Date End Date Ricardo Breen MD [address] [place] [address] [address] [place], [place] [address] PCP - General Internal Medicine 04/08/18 documented as of this encounter Additional Source Comments The information contained in this document represents components of the legal health record. It is not the complete legal health record.[facility]
--- OUTSIDE RECORDS SUMMARY | 2025-05-19 18:05 | XMS_ITS | Clinical Summary ---
Author Organization [facility] Address [address] [place] [address] Phone Care Team Providers Care Reservoir Engineering Manager Name Role Phone Ricardo Breen MD [...] file Insurance MEDICARE PART A & B [facility] MEDICARE SUPPLEMENT MEDICARE PART A & B [facility] MEDICARE SUPPLEMENT MEDICARE PART A & B Member Subscriber Plan / Payer (Ef fective 2008-Present) Name:Jeri Brown Member ID:[id number] Relation to Subscriber:Self Name:Jeri Brown Subscriber ID:[id number] Payer ID:[id number] Group ID:Not on file Type:Medicare Address: [facility] [place] [id number] MEDICARE SUPPLEMENT MEDICARE PART A & B [facility] MEDICARE SUPPLEMENT MEDICARE PART A & B [facility] MEDICARE SUPPLEMENT MEDICARE PART A & B MEDICARE SUPPLEMENT MEDICARE PART A & B [facility] MEDICARE SUPPLEMENT MEDICARE PART A & [place] [id number] [facility] MEDICARE SUPPLEMENT MEDICARE PART A & B [facility] MEDICARE SUPPLEMENT Care Teams Reservoir Engineering Manager Relationship Specialty Start Date End Date Ricardo Breen MD [address] [place] [address] PCP - General Internal Medicine 04/08/18 Additional Source Comments The information contained in this document represents components of the legal health record. It is not the complete legal health record.[facility]
--- OUTSIDE RECORDS SUMMARY | 2025-05-19 18:05 | XMS_ITS | Encounter Summary ---
Author Organization [facility] Address [address] [place] [address] Care Team Providers Care Purchasing Internship Name Role Phone Jamshid Ricardo Jayla Primary Care Provider [phone] Encounter Details Date Type Department Care Team (Late st Contact Info) Description 02/10/2025 Documentation [facility] Case Management Department [address] [place] [address] Rachel Anaya Social History Tobacco Use Types Packs/Day Years Used Date Smoking Tobacco: Never Smokeless Tobacco: Never Alcohol Use Standard Drinks/Week Comments Never 0 (1 standard drink = 0.6 oz pur e alcohol) [facility] Utilities Answer Date Recorded In the past [...] Info) Description 07/14/2025 3:00 PM EST Follow-Up [facility] [address] [place] [address] Murali Hooker MD [address] [place] [address] documented as of this encounter Goals Goal Patient Goal Type Associated Problems Recent Progress Patient-Stated? Author Autogenera gaby Goal Care Plan Autogenerated Problem Bhakti Villatoro Rachel documented as of this encounter Visit Diagnoses Not on filedocumented in this encounter Additional Health Concerns Active Problems Noted Date Diagnosed Date Autogenerated Problem 01/20/2025 documented as of this encounter Care Teams Purchasing Internship Relationship Specialty Start Date End Date Ricardo Breen [address] [place] [address] [place] [address] PCP - General Internal Medicine 01/26/25 documented as of this encounter
--- OUTSIDE RECORDS SUMMARY | 2025-05-19 18:05 | XMS_ITS | Encounter Summary ---
Author Organization [facility] Address [address] [place] [address] Phone Care Team Providers Care Rubber Stamps And Dies Supervisor Name Role Phone Ricardo Breen MD Primary Care Provider Encounter Details Date Type Department Care Team (Late st Contact Info) Description 06/29/2021 Procedure Pass [facility], [address] [address] Social History Tobacco Use Types Packs/Day Years [...] on filedocumented in this encounter Care Teams Rubber Stamps And Dies Supervisor Relationship Specialty Start Date End Date Ricardo Breen MD [address] [place] [address] Dr [address] [place] [address] PCP - General Internal Medicine 04/08/18 documented as of this encounter Additional Source Comments The information contained in this document represents components of the legal health record. It is not the complete legal health record.[facility]
--- OUTSIDE RECORDS SUMMARY | 2025-05-19 18:05 | XMS_ITS | Encounter Summary ---
Author Organization [facility] Address [address] [facility] [address] [place], [place] [id number] Phone Care Team Providers Care Retail Asset Protection Specialist Name Role Phone Ricardo Breen MD Primary Care Provider Encounter Details Date Type Department Care Team (Late st Contact Info) Description 04/08/2018 Ancillary Orders [facility], X-Ray - [address] [address] Brannon Perea MD [address] [place] [address] [email or web address] Cervical spondylosis without myelopathy Social History [...] 3 mm of retrolisthesis of C4 on [id number] does not change appreciably in flexion but [...] myelopathy documented in this encounter Care Teams Retail Asset Protection Specialist Relationship Specialty Start Date End Date Ricardo Breen MD [address] [place] [address] [place], [place] [address] PCP - General Internal Medicine 04/08/18 documented as of this encounter Additional Source Comments The information contained in this document represents components of the legal health record. It is not the complete legal health record.[facility]
--- OUTSIDE RECORDS SUMMARY | 2025-05-19 18:05 | XMS_ITS | Encounter Summary ---
Author Organization [facility] Address [address] [place] [address] [place] [address] Phone Care Team Providers Care Plant Control Aide Name Role Phone Ricardo Breen MD Primary Care Provider [phone] Reason for Referral * MRI/CAT Scan - Closed Specialty Diagnoses / Procedures Referred By Yasir t Referred To Contact Radiology Diagnoses Lumbar radiculopathy Procedures MRI Lumbar Spine Rolando Tomas DO Phone: tel: fax: mailto:[email or web address] Referral ID Status Reason Start Date Expiration Date Visits Re quested Visits Authorized [id number] Closed 06/29/2021 06/29/2022 1 1 Encounter Details Date Type Department Care Team (Latest Contact Info) Description 06/29/2021 Ancillary Orders Virtual Department [address] [place] [address] Rolando Tomas DO [address] [place] [address] [email or web address] Lumbar radiculopathy Social History Tobacco Use Types [...] be performed for further evaluation. POS - [id number] Narrative 07/13/2021 8:26 AM EDT HISTORY: Chronic [...] could be performedfor further evaluation. POS - [id number] us Rolando Tomas DO IMG MR XSPECIALTY Final Resu lt documented in this encounter Visit Diagnoses Diagnosis Lumbar radiculopathy Thoracic or lumbosacral neuritis or radiculitis, unspecified Lumbar radiculopathy Thoracic or lumbosacral neuritis or radiculitis, unspecified documented in this encounter Care Teams Plant Control Aide Relationship Specialty Start Date End Date Ricardo Breen MD [address] [place] [address] [place] [address] PCP - General Internal Medicine 04/08/18 documented as of this encounter Additional Source Comments The information contained in this document represents components of the legal health record. It is not the complete legal health record.[facility]
--- OUTSIDE RECORDS SUMMARY | 2025-05-19 18:05 | XMS_ITS | Clinical Summary ---
Author Organization [facility] Address [address] [place] [address] Care Team Providers Care Single Needle Operator Name Role Phone Ricardo Breen Primary Care Provider [phone] Allergies Active Allergy Reactions Criticality Noted Date [...] Type Department Care Team Description 04/27/2025 Telephone [facility] [address] [place] [address] Lounge Car Attendant: Adeola Ernandez NP 04/20/2025 Telephone [facility] [address] [place] [address] Lounge Car Attendant: Edda Santos Telephone Intake, Staff PAC Patient Request Call Back 04/12/2025 1:30 PM EDT Follow-Up [facility] [address] [place] [address] Murali Hooker MD 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, subsequent encounter (Primary Dx) 03/24/2025 Telephone [facility] [address] [place] [address] Lounge Car Attendant: Edda Ya, Referring PAC Patient Request Call Back; PAC Appt Request - Established Adeola Miller NP 03/24/2025 Telephone [facility] [address] [place] [address] Lounge Car Attendant: Adeola Ernandez NP 03/08/2025 4:00 PM EDT Telehealth [facility] [address] [place] [address] Lounge Car Attendant: Adeola Ernandez NP 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, initial encounter ([facility]) (Primary Dx); Staphylococcal infection 02/17/2025 1:30 PM EDT Follow-Up [facility] [address] [place] [address] Lounge Car Attendant: Adeola Ernandez NP 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, subsequent encounter (Primary Dx); Staphylococcal infection; Chronic UTI from Last 3 Months Family History Medical [...] = 0.6 oz pur e alcohol) [facility] Utilities Answer Date Recorded In the past 12 months has th e electric, gas, oil, or water [employer] threatened to shut off services in your [...] Info) Description 07/14/2025 3:00 PM EST Follow-Up [facility] [address] [place] [address] Murali Hooker MD [address] [place] [address] Health Maintenance Due Date Last Done Comments [...] Rachel Villatoro Medical Devices Implanted Type Area Gaming Floor Supervisor Device Identifier Shelf Expiration Date Model / Serial / Lot Cement Radiopaque Full Dose 40gr Simplex P - [id number] Implanted:Qty: 2 on 01/26/2025 by Murali Hooker MD at [facility] Implant Left: Hip JACLYN 07/09/2026 [id number] / / [id number] Insert Acetabular Eccentric 36mm 10 Degree Trident X3 - [id number] Implanted:Qty: 1 on 01/26/2025 by Murali Hooker MD at [facility] Implant Left: Hip JACLYN 04/15/2029 [id number] / / [id number] Head Femoral Anatomic V40 Vitallium Cocr Plus [id number] Lfit - [id number] Implanted:Qty: 1 on 01/26/2025 by Murali Hooker MD at [facility] Implant Left: Hip JACLYN 02/07/2028 [id number] / / [id number] Procedures * Due to [place] Fairphone law, this organization might not be sharing [...] hip prosthesis, initial encounter (HCC) Staphylococcal infection from Last 3 Months Results * Due to [place] state law, this organization might not be sharing negative HIV tests. * (ABNORMAL) CBC Auto Differential (05/05/2025 2:41 PM EDT) Only the most recent of2 resultswithin the time period is included. White Blood Cell Count 8.8 3.8 - 10.8 Thousand/ uL 05/06/2025 4:23 AM [facility] Red Blood Cell Count 3.73(L) 3.80 - 5.10 Million/u L 05/06/2025 4:23 AM [facility] Hemoglobin 11.4(L) 11.7 - 15.5 g/dL 05/06/2025 4:23 AM [facility] Hematocrit 35.3 35.0 - 45.0 % 05/06/2025 4:23 AM [facility] MCV 94.6 80.0 - 100.0 fL 05/06/2025 4:23 AM [facility] MCH 30.6 27.0 - 33.0 pg 05/06/2025 4:23 AM [facility] MCHC 32.3 32.0 - 36.0 g/dL 05/06/2025 4:23 AM [facility] Comment: For adults, a slight decrease in the calculated MCHC value (in the range of 30 to 32 g/dL) is most likely not clinically significant; however, it should be interpreted with caution in correlation with other red cell parameters and the patient's clinical condition. RDW 14.4 11.0 - 15.0 % 05/06/2025 4:23 AM [facility] Platelet Count 137(L) 140 - 400 Thousand/ uL 05/06/2025 4:23 AM [employer](INOR) [facility] MPV 12.6(H) 7.5 - 12.5 fL 05/06/2025 4:23 AM [facility] Absolute Neutrophils 4,866 1,500 - 7,800 cells/uL 05/06/2025 4:23 AM [facility] Absolute Lymphocytes 2,966 850 - 3,900 cells/uL 05/06/2025 4:23 AM [facility] Absolute Monocytes 739 200 - 950 cells/uL 05/06/2025 4:23 AM EDT Maintenance Assistant [facility] Absolute Eosinophils 167 15 - 500 cells/uL 05/06/2025 4:23 AM EDT Maintenance Assistant [facility] Absolute Basophils 62 0 - 200 cells/uL 05/06/2025 4:23 AM EDT Maintenance Assistant [facility] Neutrophils 55.3 % 05/06/2025 4:23 AM EDT Maintenance Assistant [facility] Lymphocytes 33.7 % 05/06/2025 4:23 AM EDT Maintenance Assistant [facility] Monocytes 8.4 % 05/06/2025 4:23 AM EDT Maintenance Assistant [facility] Eosinophils 1.9 % 05/06/2025 4:23 AM EDT Maintenance Assistant [facility] Basophils 0.7 % 05/06/2025 4:23 AM EDT Maintenance Assistant [facility] Blood Structure of peripheral vein / Unknown 05/05/2025 2:41 PM EDT 05/06/2025 2:36 AM EDT Narrative [facility] - 05/06/2025 5:40 AM EDT FASTING:NO Adeola Miller TAPE EDGE MACHINE OPERATOR LAB BLOOD ORDERABLES Final Res ult Performing Organization Address City/[facility]/ZIP Co de Phone Number [facility] [address], [facility] [place] [address], [place] [phone] [facility] [address] [place] [address] * Sedimentation Rate (05/05/2025 2:41 PM EDT) Sed Rate By Modified Sheyla 6 0 - 30 mm/h 05/06/2025 5:38 AM EDT Maintenance Assistant [facility] Blood Structure of peripheral vein / Unknown 05/05/2025 2:41 PM EDT 05/06/2025 2:28 AM EDT Narrative [facility] - 05/06/2025 5:40 AM EDT FASTING:NO Adeola Miller TAPE EDGE MACHINE OPERATOR LAB BLOOD ORDERABLES Final Res ult [facility] [address], [place] [address], [place] [phone] [facility] [address] [place] [address] * C-Reactive Protein (05/05/2025 2:41 PM EDT) [facility] C-Reactive Protein <3.0 <8.0 mg/L 05/06/2025 5:40 AM EDT [facility] Blood Structure of peripheral vein / Unknown 05/05/2025 2:41 PM EDT 05/06/2025 3:22 AM EDT Narrative [facility] - 05/06/2025 5:40 AM EDT FASTING:NO us Adeola Miller TAPE EDGE MACHINE OPERATOR LAB BLOOD ORDERABLES Final Res ult [facility] 200 [facility] 3rd Floor, [place] [address], Maintenance Assistant [facility] [address] [place] [address] * (ABNORMAL) Comprehensive Metabolic Panel (05/05/2025 2:41 PM EDT) Only the most recent of2 resultswithin the time period is included. [facility] Glucose 102 65 - 139 mg/dL 05/06/2025 4:40 AM EDT Maintenance Assistant [facility] Comment: Non-fasting reference interval BUN 32(H) 7 - 25 mg/dL 05/06/2025 4:40 AM EDT Maintenance Assistant [facility] Creatinine 1.82(H) 0.60 - 1.00 mg/dL 05/06/2025 4:40 AM EDT Maintenance Assistant [facility] eGFR 28(L) > OR = 60 mL/min/1. 73m2 05/06/2025 4:40 AM [email or web address] [facility] Bun/Creatinine Ratio 18 6 - 22 (calc) 05/06/2025 4:40 AM EDT Maintenance Assistant [facility] Sodium 139 135 - 146 mmol/L 05/06/2025 4:40 AM EDT Maintenance Assistant [facility] Potassium 5.6(H) 3.5 - 5.3 mmol/L 05/06/2025 4:40 AM EDT Maintenance Assistant [facility] Chloride 105 98 - 110 mmol/L 05/06/2025 4:40 AM EDT Maintenance Assistant [facility] Carbon Dioxide 27 20 - 32 mmol/L 05/06/2025 4:40 AM EDT Maintenance Assistant [facility] Calcium 9.4 8.6 - 10.4 mg/dL 05/06/2025 4:40 AM EDT Maintenance Assistant [facility] Protein, Total 6.1 6.1 - 8.1 g/dL 05/06/2025 4:40 AM EDT Maintenance Assistant [facility] Albumin 4.1 3.6 - 5.1 g/dL 05/06/2025 4:40 AM EDT Maintenance Assistant [facility] Globulin 2.0 1.9 - 3.7 g/dL (calc) 05/06/2025 4:40 AM EDT Maintenance Assistant [facility] Albumin/Globuli n Ratio 2.1 1.0 - 2.5 (calc) 05/06/2025 4:40 AM EDT Maintenance Assistant [facility] Bilirubin, Total 0.4 0.2 - 1.2 mg/dL 05/06/2025 4:40 AM EDT Maintenance Assistant [facility] Alkaline Phosphatase 52 37 - 153 U/L 05/06/2025 4:40 AM EDT Maintenance Assistant [facility] AST 15 10 - 35 U/L 05/06/2025 4:40 AM [email or web address] [facility] ALT 12 6 - 29 U/L 05/06/2025 4:40 AM [employer](INOR) [facility] Blood Structure of peripheral vein / Unknown 05/05/2025 2:41 PM EDT 05/06/2025 3:22 AM EDT Narrative [facility] - 05/06/2025 5:40 AM EDT FASTING:NO us Adeola Miller NP LAB BLOOD ORDERABLES Final Res ult [facility] 200 [facility] 3rd Floor, [place] [address], [facility] [address] [place] [address] from Last 3 Months Additional Health Concerns Active Problems Noted Date Diagnosed Date Autogenerated Problem 01/20/[address] [address] [place] [address] * Guarantor: JERI BROWN Account Type Relation to Patient Date of Phone Billing Address Personal/Family MEDICARE Member Subscriber Plan / Payer (Ef fective 2013-Present) Name:Jeri Brown Member ID:[id number] Relation to Subscriber:Self Name:Jeri Brown Subscriber ID:[id number] Payer ID:[id number] Group ID:Not on file Type:Not on file Address: [address] [facility] Advance Directives * Full Code (Latest Code Status on File) Date Activated Date Inactivated Comments 01/26/2025 10:59 AM 02/05/2025 3:20 PM * Full Code Date Activated Date Inactivated Comments 01/26/2025 5:58 AM 01/26/2025 10:59 AM Care Teams Single Needle Operator Relationship Specialty Start Date End Date Ricardo Breen [address] [place] [address] [place] [address] PCP - General Internal Medicine 01/26/25
--- OUTSIDE RECORDS SUMMARY | 2025-05-19 18:05 | XMS_ITS | Encounter Summary ---
Author Organization [facility] Address [address] [place] [address] Care Team Providers Care Forestry Support Specialist Name Role Phone Jamshid Ricardo S Primary Care Provider [phone] Reason for Visit * Reason Onset Date Comments PAC Patient Request Call Back 04/20/2025 Encounter Details Date Type Department Care Team (Late st Contact Info) Description 04/20/2025 Telephone [facility] [address] [place], [place] [id number] Massotherapist: Edda Santos Telephone Intake, Staff PAC Patient Request Call Back Social History Tobacco Use Types Packs/Day Years Used Date Smoking Tobacco: Never Smokeless Tobacco: Never Alcohol Use Standard Drinks/Week Comments Never 0 (1 standard drink = 0.6 oz pur e alcohol) [facility] Utilities Answer Date Recorded In [...] to be faxed to Tiesha Miller from [facility]. Patient declined an in person appt and would like a telephone call instead if possible. Please advise. documented in this encounter Plan of Treatment Upcoming Encounters Date Type Department Care Team (Late st Contact Info) Description 07/14/2025 3:00 PM EST Follow-Up [facility] [address] [place] [address] Murali Hooker MD [address] [place] [address] documented as of this encounter Goals Goal Patient Goal Type Associated Problems Recent Progress Patient-Stated? Author Autogenera gaby Goal Care Plan Autogenerated Problem No Rachel Villatoro documented as of this encounter Visit Diagnoses Not on filedocumented in this encounter Additional Health Concerns Active Problems Noted Date Diagnosed Date Autogenerated Problem 01/20/2025 documented as of this encounter Care Teams Forestry Support Specialist Relationship Specialty Start Date End Date Ricardo Breen [address] [place] [address] [place] [address] PCP - General Internal Medicine 01/26/25 documented as of this encounter
--- OUTSIDE RECORDS SUMMARY | 2025-05-19 18:05 | XMS_ITS | Encounter Summary ---
Author Organization [facility] Address [address] [place] [address] Phone Care Team Providers Care Waiter/Waitress Counter Name Role Phone Kathy Connor Primary Care Provider [phone] Ricardo Breen MD Primary Care Provider [phone] Encounter Details Date Type Department Care Team (Late st Contact Info) Description 03/11/2018 Procedure Pass [facility], [address] [address] Social History Tobacco Use Types Packs/Day Years [...] on filedocumented in this encounter Care Teams Waiter/Waitress Counter Relationship Specialty Start Date End Date Kathy Connor PA [email or web address] PCP - General 03/11/18 04/07/18 Ricardo Breen MD [address] [place] [address] Dr [place], [place] [phone] PCP - General Internal Medicine 04/08/18 documented as of this encounter Additional Source Comments The information contained in this document represents components of the legal health record. It is not the complete legal health record.[facility]
--- OUTSIDE RECORDS SUMMARY | 2025-05-19 18:05 | XMS_ITS | Encounter Summary ---
Author Organization [facility] Address [address] [place] [address] Phone Care Team Providers Care Rodent Control Worker Name Role Phone Ricardo Breen MD Primary Care Provider Encounter Details Date Type Department Care Team (Late st Contact Info) Description 06/05/2022 Procedure Pass [facility], [address] [address] Social History Tobacco Use Types Packs/Day Years [...] on filedocumented in this encounter Care Teams Rodent Control Worker Relationship Specialty Start Date End Date Ricardo Breen MD [address] [place] [address] Dr CONNOR [address] [place] [address] PCP - General Internal Medicine 04/08/18 documented as of this encounter Additional Source Comments The information contained in this document represents components of the legal health record. It is not the complete legal health record.[facility]
--- OUTSIDE RECORDS SUMMARY | 2025-05-19 18:05 | XMS_ITS | Encounter Summary ---
Author Organization [facility] Address [address] [place] [address] [place] [address] Phone Care Team Providers Care Fine Unhairer Name Role Phone Kathy Connor Primary Care Provider [phone] Ellen Breen MD Primary Care Provider [phone] Reason for Referral * MRI/CAT Scan - Closed Specialty Diagnoses / Procedures Referred By Contiveth t Referred To Contact Radiology Diagnoses Cervical spinal stenosis Procedures MRI Cervical Spine Kathy Connor PA Phone: tel: fax: [email or web address] Referral ID Status Reason Start Date Expiration Date Visits Re quested Visits Authorized [id number] Closed 03/11/2018 03/11/2019 1 1 Encounter Details Date Type Department Care Team (Late st Contact Info) Description 03/11/2018 Ancillary Orders Virtual Department [address] [place] [address] Kathy Connor PA [address] [place] [address] [email or web address] Cervical spinal stenosis Social History Tobacco Use [...] advanced degenerative changes as outlined. POS - [id number] Narrative 03/19/2018 4:08 PM EDT COMPARISON: 03/03/2015. [...] advanced degenerative changes as outlined. POS - [id number] Kathy LEONARDO IMG MR XSPECIALTY Final Res ult documented in this encounter Visit Diagnoses Diagnosis Cervical spinal stenosis Spinal stenosis in cervical region Cervical spinal stenosis Spinal stenosis in cervical region documented in this encounter Care Teams Fine Unhairer Relationship Specialty Start Date End Date Kathy Connor PA [email or web address] PCP - General 03/11/18 04/07/18 Ellen Breen MD [address] [place] [address] [place] [address] PCP - General Internal Medicine 04/08/18 documented as of this encounter Additional Source Comments The information contained in this document represents components of the legal health record. It is not the complete legal health record.[facility]
--- OUTSIDE RECORDS SUMMARY | 2025-05-19 18:05 | XMS_ITS | Patient Health Record ---
Author Organization [facility] Address [address] [place] [address] Care Team Providers Care Instrument Lens Grinder Name Role Phone Cristina Damon Primary Care Provider UnavailJeanette Santoro Unavailable [phone] Bishnu Cervantes Unavailable [phone] Sylvia Nguyễn Unavailable [phone] Allergies Allergen (clinical drug ingredient) Drug/Non Drug [...] Problem Acquired hammer toe of right foot (3438917093960957 ) Other hammer toe(s) (acquired), right foot (M20.41) Active confirmed Problem Acquired hammer toe of left foot (1797419747674760 ) Other hammer toe(s) (acquired), left foot (M20.42) Active confirmed Problem Polyneuropathy due to type 2 diabetes mellitus (221718647) Type 2 diabetes mellitus with diabetic polyneuropathy (E11.42) Active confirmed Vital Signs Blood pressure diastolic 60 mm Hg 03/23/2025 Height 5 ft 4 in in 03/23/2025 Blood pressure systolic 140 mm Hg 03/23/2025 Weight 195 lbs 03/23/2025 BMI 33.47 kg/m2 03/23/2025 Procedures Procedure Date Ordered Date Performed Result Body Sit e 90800-QZYULUF NAIL, 6 OR MORE 07/16/2024 N/A 21618-CWWN SKIN LESIONS, 2 TO 4 07/16/2024 N/A 00116-EDQGHUY NAIL, 6 OR MORE 03/23/2025 N/A 07353-YNLZ SKIN LESIONS, 2 TO 4 03/23/2025 N/A Encounters Encounter Location Date Provider Diagnosis [address] [address] 07/16/2024 Sylvia Nguyễn Type 2 diabetes mellitus with diabetic polyneuropathy E11.42 and Tinea unguium B35.[address] [address] 10/23/2024 Jeanette Messer Type 2 diabetes mellitus with diabetic polyneuropathy E11.42 ; 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 ; Tinea unguium B35.1 ; Pain in right ankle and joints of right foot M25.571 ; Other hammer toe(s) (acquired), right foot M20.41 ; Other hammer toe(s) (acquired), left foot M20.42 and Local edema R60.[address] [address] 03/23/2025 Bishnucici De LeónHelen Type 2 diabetes mellitus with diabetic polyneuropathy E11.42 ; Tinea unguium B35.1 ; Other hammer toe(s) (acquired), right foot M20.41 and Other hammer toe(s) (acquired), left foot M20.[address] [address] 10/14/2024 Sylvia Nguyễn [address] [address] 10/28/2024 Jeanette Messer [address] [address] 12/18/2024 Jeanette Messer [address] [address] 12/18/2024 Jeanette Messer [facility] [place] [address] [place] [address] 03/23/2025 Jeanette Messer Assessments Encounter Date Diagnosis [...] X ray : Foot, right 3V 10/23/2024 58780-NFZDKGA NAIL, 6 OR MORE 07/16/2024 36810-TURXREN NAIL, 6 OR MORE 03/23/2025 60370-KOKMIVT NAIL, 1-5 05/05/2018 90313-EQAOTFG NAIL, 1-5 07/21/2018 40920-TDROLRT NAIL, 1-5 10/13/2018 53189, J0702- INJECT or DRAIN, JOINT/BUR SA 05/05/2018 49677-WQXA SKIN LESIONS, OVER 4 05/05/20 18 41957-ZCGH SKIN LESIONS, OVER 4 07/21/20 18 27855-BIBG SKIN LESIONS, OVER 4 01/13/20 19 47620-QFEL SKIN LESIONS, OVER 4 04/13/20 19 39265-CZDA SKIN LESIONS, OVER 4 10/13/19 19 37732-HCHR SKIN LESIONS, OVER 4 12/06/19 21 38405-NFPO SKIN LESIONS, OVER 4 05/08/20 21 57847-ENTO SKIN LESIONS, OVER 4 10/18/19 22 89615-XDEZ SKIN LESIONS, OVER 4 08/01/20 20 79441-JKLP SKIN LESIONS, OVER 4 03/30/20 20 61096-QKKY SKIN LESIONS, OVER 4 07/13/20 19 17206-ZNBK SKIN LESIONS, OVER 4 10/12/19 20 16259-SKJO SKIN LESIONS, 2 TO 4 07/16/20 24 18233-QLSB SKIN LESIONS, 2 TO 4 02/20/20 18 99914-EMUI SKIN LESIONS, 2 TO 4 03/23/20 25 97224, R9754-RBMHF/INJECT, JOINT/BURSA 0 10/13/2018 W6775-XSFYFJMW DYSTROPHIC NAILS ANY # J7055-TRKCZZOA DYSTROPHIC NAILS ANY # V7312-TFXLNQBB DYSTROPHIC NAILS ANY # F5936-QNFQLIJG DYSTROPHIC NAILS ANY # I3158-RPAQBNZP DYSTROPHIC NAILS ANY # N5641-JDSGPROG DYSTROPHIC NAILS ANY # T5227-HRFZXSDR DYSTROPHIC NAILS ANY # P7584-UZXPCYST DYSTROPHIC NAILS ANY # E9782-MSSWCAOP DYSTROPHIC NAILS ANY # 02516- Nail Unit Biopsy 02/19/2018 Next Appt Details Provider Name:Bishnu Cervantes , 06/18/2025 11:15:00 AM, [address] [facility], [place], [address], Insurance Providers Payer Name Payer Address Payer Phone Subscriber Number Group Number Insured Name Patient Relationship to Insured Coverage Start Date Coverage End Date Medicare National [employer] [address] [facility] [place] [address] [id number] Kaitlin Ortiz Self - patient is the insured [address] [place] [address] [address] [place] [address] [id number] Kaitlin Ortiz Self - patient is the [...]
== END 2025-05-19 15:46 | disposition home or self-care (01) ==
LOC: HO.HMCHD 14:56
PROVIDERS: PCP Physician Assistant; Visit Provider Physician Assistant
DX: B37.2 Candidiasis of skin and nail (principal)

== ENCOUNTER 2025-05-27 09:15 | Outpatient (RCR) | payer MEDICARE, OTHER, SELFPAY ==
[2025-05-19 08:07] VITALS: BP 155/42; PULSE 51; RESP 20; TEMP 36.6; O2SAT 99; BMI 35.6
[2025-05-19 08:44] LABS: Blood Urea Nitrogen 29 mg/dL (9-16); Creatinine Clr Calc Pharmacy 29.9; Estimated Glomerular Filt Rate 29
[2025-05-19] MEDS: Heparin Sodium,Porcine Flush 50 UNITS, 0.9 % Sodium Chloride Flush 5 ML IVFLUSH (10:40)
[2025-05-20 07:22] LABS: Gentamicin Trough 8.6 ug/mL (0.5-2.0)
[2025-05-21 07:23] VITALS: BP 157/48; PULSE 55; RESP 16; TEMP 36.7; O2SAT 96
[2025-05-21 08:11] LABS: Blood Urea Nitrogen 37 mg/dL (9-16); Creatinine Clr Calc Pharmacy 28.1; Estimated Glomerular Filt Rate 27
[2025-05-21] MEDS: Heparin Sodium,Porcine Flush 50 UNITS, 0.9 % Sodium Chloride Flush 5 ML IVFLUSH (09:14)
--- NOTE | 2025-05-21 14:35 | HE.PHANOTE ---
RE: GENTAMICIN Spoke to Vivienne Duvall (nurse of Dr. Hayes) who confirmed the indication is UTI and total of 5 DOSES (aware of q48h dosing).
[2025-05-23 09:28] VITALS: BP 146/42; PULSE 55; RESP 18; TEMP 36.1; O2SAT 95
[2025-05-23 10:41] VITALS: BP 140/45; PULSE 53; RESP 17; TEMP 36.6; O2SAT 95
[2025-05-24 07:26] LABS: Gentamicin Trough 0.9 mg/L (0.5-2.0)
[2025-05-25 11:28] VITALS: BP 160/44; PULSE 53; RESP 16; TEMP 36.3; O2SAT 97
[2025-05-25 12:10] LABS: Creatinine Clr Calc Pharmacy 28.6; Estimated Glomerular Filt Rate 27
[2025-05-25] MEDS: Heparin Sodium,Porcine Flush 50 UNITS, 0.9 % Sodium Chloride Flush 5 ML IVFLUSH (13:29)
[2025-05-27 09:18] VITALS: BP 171/66; PULSE 57; RESP 18; TEMP 36.1; O2SAT 95
== END 2025-05-27 11:15 | disposition home or self-care (01) ==
LOC: HO.INF 09:15
PROVIDERS: PCP Physician Assistant; Visit Provider Urology
DX: N39.0 Urinary tract infection, site not specified (principal)
CPT/HCPCS: 36415; 80170; 82565; 84520; 96365; J1580; J1642

== ENCOUNTER → 2025-05-28 12:53 | Outpatient (BNVA) | payer MEDICARE, OTHER, SELFPAY | PROVIDERS: PCP Family Medicine; Visit Provider Urology | DX: Z46.6 Encounter for fitting and adjustment of urinary device (principal); N31.9 Neuromuscular dysfunction of bladder, unspecified; Z93.50 Unspecified cystostomy status | CPT/HCPCS: 51705 ==

== ENCOUNTER 2025-06-10 20:33 | Inpatient (IN) | payer MEDICARE, OTHER, SELFPAY ==
--- NOTE | ~2025-06-10 | CT_ITS ---
CLINICAL HISTORY: fall CT cervical spine without contrast Comparison: None provided Findings: No acute fracture or dislocation. Posterior alignment is normal. Severe degenerative change. Multilevel left laminectomy. Multilevel bony fusion. Right jugular central line. Impression: No acute processes This document has been electronically signed by: Joshua Reid MD on 06/10/2025 22:05:36
--- NOTE | ~2025-06-10 | XR_ITS ---
CLINICAL HISTORY: fall Pelvis and left hip two views Comparison: 11/19/2024 Findings: Nondisplaced fracture through left greater trochanter. No other acute bony abnormality noted. Degenerative change in right hip joint Left hip prosthesis demonstrates normal alignment. There is no evidence for component loosening. Impression: Left greater trochanter fracture This document has been electronically signed by: Joshua Reid MD on 06/10/2025 22:10:10
--- NOTE | ~2025-06-10 | CT_ITS ---
CLINICAL HISTORY: fall CT head without contrast Comparison: None provided Findings: No intracranial mass, midline shift, hydrocephalus, or acute hemorrhage. Mild chronic ischemic white matter disease with volume loss. No acute process in sinuses or mastoids. No acute bony abnormality. Impression: No acute intracranial process This document has been electronically signed by: Joshua Reid MD on 06/10/2025 22:03:52
--- NOTE | ~2025-06-10 | XR_ITS ---
EXAMINATION: XR CHEST CLINICAL INFORMATION: congestion COMPARISON: Previous chest x-ray most recently October 2022 TECHNIQUE: Frontal view of the chest was obtained. FINDINGS: Right jugular Port-A-Cath with tip projecting over the right atrium. Low lung volumes. Slight elevation of the right hemidiaphragm unchanged. Lungs are clear. No consolidation or pulmonary edema. No pleural effusion or pneumothorax. Stable enlargement of the cardiac silhouette. Calcified thoracic aorta. Degenerative changes of the spine and right shoulder. Median sternotomy. Postsurgical changes to the lower cervical spine. XR/XR chest 1V IMPRESSION: No evidence for acute disease in the chest. Low lung volumes and slight elevation of the right hemidiaphragm similar to prior exams. Electronically signed by: Mady Ellis MD 06/14/2025 09:54 AM EDT
[2025-06-10 20:55] VITALS: BP 165/61; PULSE 57; RESP 16; TEMP 36.6; O2SAT 97
[2025-06-10 20:58] VITALS: BP 165/61; BP 180/100; PULSE 57; PULSE 61; RESP 16; TEMP 36.6; O2SAT 96; O2SAT 97; BMI 36.4
--- NOTE | 2025-06-10 21:03 | ECG_ITS ---
Test Reason : FALL Blood Pressure : */* mmHG Vent. Rate : 61 BPM Atrial Rate : 61 BPM P-R Int : 156 ms QRS Dur : 132 ms QT Int : 490 ms P-R-T Axes : 67 -42 80 degrees QTcB Int : 493 ms Sinus rhythm with occasional Premature ventricular complexes Left axis deviation Left ventricular hypertrophy with QRS widening ( R in aVL , Melvin product ) T wave abnormality, consider lateral ischemia Abnormal ECG When compared with ECG of 29-Jan-2023 12:36, Premature ventricular complexes are now Present QRS duration has increased Non-specific change in ST segment in Anterior leads Referred By: Generic ED Physician Electronically Signed By: ITA DAILEY
[2025-06-10 22:25] VITALS: BP 168/135; PULSE 61; RESP 16; TEMP 36.9; O2SAT 96
--- NOTE | 2025-06-10 23:24 | ED.FALL ---
HPI - Fall General Chief Complaint: Fall Stated Complaint: FALL Time Seen by Provider: 06/10/25 22:46 History of Present Illness HPI Narrative: Patient is a 79-year-old female tripped and fell on the left side. Positive head strike. Complaining of pain to the left hip area. 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 Complicated by having revision done in January this year at [facility]. No fever no chills. The fall was completely mechanical. Patient tripped over a carpet. No loss of consciousness no nausea no vomiting no chest pain or abdominal pain. Baseline uses a walker. Has a long history of hypertension and atrial fibrillation. Not on thinners. Related Data Home Medications ?Medication ?Instructions ?Recorded ?Confirmed citalopram 20 mg tablet 20 mg PO QAM 07/21/20 05/05/25 duloxetine 60 mg capsule,delayed 60 mg PO QAM 07/21/20 05/05/25 release amlodipine 10 mg tablet 10 mg PO QAM 03/23/21 05/05/25 metformin 1,000 mg tablet 1,000 mg PO BID 04/19/21 05/05/25 carvedilol 25 mg tablet 25 mg PO BID 05/31/21 05/05/25 blood sugar diagnostic (Accu-Chek #10 ea 09/04/22 05/05/25 Guide test strips) coenzyme Q10 100 mg capsule 100 mg PO BEDTIME 01/03/23 05/05/25 (CoQ-10) magnesium 250 mg tablet 250 mg PO BEDTIME 01/03/23 05/05/25 multivitamin 1 tab PO QAM 01/03/23 05/05/25 pregabalin 150 mg capsule 150 mg PO BID 01/03/23 05/05/25 polyethylene glycol 3350 17 17 g PO DAILY PRN Constipation 10/28/24 05/05/25 gram/dose oral powder (Miralax) aspirin 81 mg tablet,delayed 81 mg PO QAM 11/04/24 05/05/25 release (Enteric Coated Aspirin) ferrous sulfate 325 mg (65 mg 325 mg PO QAM 11/04/24 05/05/25 iron) tablet (iron) ibrutinib 420 mg tablet (Imbruvica) 420 mg PO QAM 11/04/24 05/05/25 furosemide 20 mg tablet 40 mg PO DAILY PRN Edema 04/15/25 05/05/25 lancets 28 gauge (FreeStyle #100 ea 04/15/25 05/05/25 Lancets) Previous Rx's ?Medication ?Instructions ?Recorded acetaminophen 325 mg tablet 650 mg (2 x 325 mg) PO Q6H PRN 01/11/23 Pain, Mild (Pain Scale 1-3) 30 days #240 tabs mastectomy bra (bra, mastectomy) #6 ea 06/06/23 mastectomy bra (bra, mastectomy) #7 ea 03/30/24 atorvastatin 80 mg tablet 80 mg PO QPM #90 tabs 09/08/24 walker #1 ea 09/16/24 walker #1 ea 09/16/24 oxybutynin chloride 5 mg tablet 5 mg PO BID PRN Bladder Spasms #60 10/01/24 tabs ascorbic acid (vitamin C) 1,000 mg 1,000 mg PO QAM 90 days #90 tabs 11/12/24 tablet meropenem 1 gram intravenous 1 g IV Q24H UTI 10 days 01/05/25 solution esomeprazole magnesium 40 mg 40 mg PO BID #180 caps 02/02/25 capsule,delayed release phenazopyridine 200 mg tablet 200 mg PO Q8H 5 days #15 tabs 02/25/25 famotidine 40 mg tablet 40 mg PO BEDTIME #90 tabs 03/22/25 mastectomy bra (bra, mastectomy) #3 ea 04/26/25 nystatin 100,000 unit/gram topical 1 appl topical TID PRN fungal 05/19/25 cream infec #30 grams Allergies Allergy/AdvReac Type Severity Reaction Status Date / Time amoxicillin (AMOXICILLIN) Allergy Severe stroke, Verified 06/10/25 21:01 blood clots ciprofloxacin (From CIPRO) Allergy Severe ANAPHYLAXIS Verified 06/10/25 21:01 Iodinated Contrast Media (IV Allergy Severe HIVES Verified 06/10/25 21:01 DYE, IODINE CONTAINING CONTRAST ) levofloxacin Allergy Severe Anaphylaxis Verified 06/10/25 21:01 liraglutide Allergy Severe Headache Verified 06/10/25 21:01 Penicillins Allergy Severe stroke, Verified 06/10/25 21:01 blood clots FREYA Inhibitors Allergy Intermediate Cough Verified 06/10/25 21:01 ARB-Angiotensin Receptor Allergy Intermediate Cough Verified 06/10/25 21:01 Antagonist cefpodoxime Allergy Intermediate Dizziness, Verified 06/10/25 21:01 nausea doxazosin Allergy Intermediate Shortness Verified 06/10/25 21:01 of Breath fluticasone (Advair Diskus) Allergy Intermediate Anxiety Verified 06/10/25 21:01 gabapentin (From Neurontin) Allergy Intermediate Headache Verified 06/10/25 21:01 hydralazine Allergy Intermediate Shortness Verified 06/10/25 21:01 of Breath latex Allergy Intermediate Hives Verified 06/10/25 21:01 linezolid Allergy Intermediate Nausea and Verified 06/10/25 21:01 Vomiting meloxicam Allergy Intermediate Unknown Verified 06/10/25 21:01 salmeterol (Advair Diskus) Allergy Intermediate Anxiety Verified 06/10/25 21:01 Tetanus Vaccines and Toxoid Allergy Intermediate Swelling Verified 06/10/25 21:01 torsemide Allergy Intermediate Shortness Verified 06/10/25 21:01 of Breath cephalexin (Keflex) Allergy Mild Nausea Verified 06/10/25 21:01 Review of Systems Review of Systems: Positive head injury positive fall Yes all other systems are reviewed and are negative PMFSH Past Medical History Attestation statement: The following information was validated with the patient. Medical History PAF (paroxysmal atrial fibrillation) Suprapubic catheter Neuropathy Osteoarthritis Morbid obesity Allergy to multiple antibiotics Depression Arthritis of left hip Wears dentures Neurogenic urinary bladder disorder History of blood transfusion History of CVA (cerebrovascular accident) Seasonal allergies PONV (postoperative nausea and vomiting) Diabetes with neurologic complications Type 2 diabetes mellitus with unspecified complications Anemia CLL (chronic lymphocytic leukemia) Sleep apnea Arthritis Fibromyalgia Hypercholesterolemia Hypertension History of bilateral breast cancer Urinary retention with incomplete bladder emptying Surgical History History of cervical discectomy History of open heart surgery (~01/31/24) History of total left hip replacement S/P Botox injection History of suprapubic catheter S/P left breast biopsy History of esophagogastroduodenoscopy (EGD) Hx of colonoscopy History of bladder repair surgery History of total hysterectomy S/P breast biopsy, right History of back surgery History of biopsy of bladder Family History Family History Mother Breast cancer Father Heart disease Father Lung cancer Mother Colon cancer Brother Pancreatic cancer Social History Social History Household Members: Spouse Housing: House Housing Other:: has chair lift for second floor access Are you a primary hospice care transitions coordinator to a significant other at home: No Do you presently have visiting nurse or other home services: Yes (visiting nurse-recent in patient for UTI) Alcohol intake: never Comment: patient refused telesiter,removed per pt request Patient Tobacco Use Status: Never used Tobacco e-Cigarette/Vaping Use: Never Used Advance Directives: Yes Advance Directives on File: Yes Advance Directives Date on File: 07/30/23 Do you have a plan to hurt others: No Plan service: No Current occupational status: retired Physical Exam Exam: Exam: Appearance: Alert. Oriented X3. No acute distress. Eyes: Pupils equal, round and reactive to light. ENT: Pharynx normal. Neck: Normal inspection. Neck supple. No lymph nodes noted. No crepitus CVS: Normal heart rate and rhythm. Pulses normal. Normal S1 and S2 Respiratory: No respiratory distress. Breath sounds normal. No Wheezing. No rales Abdomen: Soft and nontender. No rigidity. No distention. good BS x4 Skin: Skin warm and dry. Normal skin color. Normal skin turgor. Extremities: No lower extremity edema. Neurovascular intact to all extremities. No Lacerations. No Rash Neuro: Oriented X 3. Pain on movement of the left hip. There is no gross deformity noted. Sensation over the lower extremity intact. Pulses 2+ at dorsalis pedis. Movement of the toes intact. No tenderness on palpation of the knee, ankle, foot. Vital Signs: Vital Signs: Last Vital Signs Temp 98.2 F 06/11/25 00:19 Pulse 61 06/11/25 00:19 Resp 18 06/11/25 00:19 BP 181/64 H 06/11/25 00:19 Pulse Ox 96 06/11/25 00:19 O2 Del Method Room Air 06/11/25 00:19 BMI result Body Mass Index 36.4 Medical Decision Making Medical Decision Making MDM Narrative: Patient presented today status post fall. My interpretation patient's CT head was grossly negative for bleed. I reviewed radiology's reading of the CT head CT C-spine both were negative. X-ray of the left hip was done. The left hip x-ray showed evidence for greater trochanteric fracture. In the setting of having a prosthesis. The finding was discussed with orthopedics. Agreed this is a conservative management. Patient was given pain medication. Had some generalized malaise. Urine was checked. Patient's urine is grossly infected. Reviewed patient's previous culture results positive for having Pseudomonas and E coli. The Pseudomonas is sensitive to meropenem the E coli has multiple resistance. Likely sensitive to meropenem. Currently in stable condition. Will admit for further evaluation hospitalist team was consulted. Differential Diagnosis Differential Diagnoses: The differential diagnosis associated with the presentation includes UTI, greater trochanteric fracture, hypertension, intracranial bleed Admission/Observation Consideration of admission/observation: Escalation of care including admission/observation considered Consult Healthcare Provider Management of the patient was discussed with: Hospitalist and Gauger Chief (Orthopedics) Lab Data MDM Lab Attestation statement: I reviewed the patient's lab results. 06/10/25 23:40 06/10/25 23:40 Labs: Lab Results 06/10/25 Range/Units 23:40 WBC 7.8 (4.8-10.8) X10*3/uL RBC 3.42 L (4.20-5.50) X10*6/uL Hgb 10.5 L (12.0-16.0) g/dl Hct 31.0 L (37.0-47.0) % MCV 90.6 (80.0-98.0) fL MCH 30.7 (27.0-33.0) pg MCHC 33.9 (31.0-35.0) g/dl RDW 14.2 (11.0-16.0) % Plt Count 121 L (160-400) X10*3/uL MPV 11.2 (9.4-12.3) fL Immature Gran % (Auto) 3.2 H (0.0-0.4) % Neut % (Auto) 64.1 (45-73) % Lymph % (Auto) 21.8 (20-40) % [place] % (Auto) 8.7 (2-11) % Eos % (Auto) 1.7 (0-4) % Baso % (Auto) 0.5 (0-2) % Lymph # (Auto) 1.7 (1.2-4.9) X10*3/uL [place] # (Auto) 0.7 (0.1-1.2) X10*3/uL Eos # (Auto) 0.1 (0.0-0.4) X10*3/uL Baso # (Auto) 0.0 (0.0-0.2) X10*3/uL Abs Immat Gran (auto) 0.25 H (0.00-0.03) X10*3/uL Absolute Neuts (auto) 5.0 (2.0-8.3) x10*3/uL Absolute Nucleated RBC 0.000 (0.0-0.012) X10*3/uL Nucleated RBC % (auto) 0.0 (0.0-0.2) /100WBC PT 11.9 (10.9-12.4) SEC INR 1.0 (0.9-1.1) Sodium 141 (135-145) mmol/L Potassium 4.6 (3.3-5.1) mmol/L Chloride 108 (96-108) mmol/L Carbon Dioxide 25 (22-29) mmol/L Anion Gap 13 (12-20) BUN 28 H (9-16) mg/dL Creatinine 1.67 H (0.5-1.4) mg/dL Estim Creat Clear Calc 31.2 Estimated GFR 30 Random Glucose 219 H (60-115) mg/dL Calcium 9.3 (8.4-10.2) mg/dL Total Bilirubin 0.3 (0.0-1.0) mg/dL AST 19 (5-31) U/L ALT 8 (0-31) U/L Alkaline Phosphatase 70 (39-117) U/L Total Protein 5.6 L (6.5-8.0) g/dL Albumin 3.9 (3.5-5.0) g/dL Urine Color Yellow Urine Appearance Clear Urine pH 6.5 (5.0-9.0) Ur Specific [place] 1.015 (1.005-1.025) Urine Protein 30 (1+) H (Neg-Trace) mg/dL Urine Glucose (UA) Negative (Negative) mg/dL Urine Ketones Negative (Negative) mg/dL Urine Blood Small (1+) H (Negative) Urine Nitrite Negative (Negative) Ur Leukocyte Esterase Moderate (2+) H (Negative) Urine RBC >20 H (0-2) /HPF Urine WBC 21-50 H (0-5) /HPF Ur Squamous Epith Cells 0-2 (0-2) /HPF Urine Bacteria 4+ (None Seen) Hyaline Casts 0-2 (0-2) /LPF Independent Interpretation I performed an independent interpretation of an: Plain X-Ray (Greater trochanter fracture left hip) and CT Scan (CT head negative) Radiology Impression Discussion of test interpretation with radiology: I have reviewed the radiologist's reading. External Record Review External record reviewed: Inpatient record Previous culture result reviewed Prescription Management I considered prescription management with: Antibiotic Chronic Conditions History of complicated UTI Social Determinants Patient?s care significantly limited by Social Determinants of Health including: Problems related to primary support group Discharge Plan Discharge Clinical Impression: Closed hip fracture, Urinary tract infection Prescriptions: No Action atorvastatin 80 mg tablet 80 mg PO QPM Qty: 90 3RF (DME) walker Misc See Rx Instructions .ROUTE .MEDSUPPLY Qty: 1 0RF Rx Instructions: Folding front wheeled walker (DME) walker Misc See Rx Instructions .ROUTE .MEDSUPPLY Qty: 1 0RF Rx Instructions: Folding front wheeled walker ascorbic acid (vitamin C) 1,000 mg tablet 1,000 mg PO QAM 90 Days Qty: 90 3RF meropenem 1 gram recon soln 1 g IV Q24H 10 Days esomeprazole magnesium 40 mg capsule,delayed release(DR/EC) 40 mg PO BID Qty: 180 1RF phenazopyridine 200 mg tablet 200 mg PO Q8H 5 Days Qty: 15 0RF famotidine 40 mg tablet 40 mg PO BEDTIME Qty: 90 1RF (DME) bra, mastectomy Crystals Qty: 6 3RF Rx Instructions: As Directed (DME) bra, mastectomy Crystals Qty: 7 0RF Rx Instructions: As Directed oxybutynin chloride 5 mg tablet 5 mg PO BID PRN (Reason: Bladder Spasms) Qty: 60 4RF (DME) bra, mastectomy Crystals Qty: 3 3RF Rx Instructions: As Directed pregabalin 150 mg capsule 150 mg PO BID multivitamin Tablet 1 tab PO QAM magnesium 250 mg Tablet 250 mg PO BEDTIME coenzyme Q10 [CoQ-10] 100 mg Capsule 100 mg PO BEDTIME acetaminophen 325 mg Tablet 650 mg PO Q6H PRN (Reason: Pain, Mild (Pain Scale 1-3)) 30 Days Qty: 240 0RF aspirin [Enteric Coated Aspirin] 81 mg tablet,delayed release (DR/EC) 81 mg PO QAM ferrous sulfate [iron] 325 mg (65 mg iron) tablet 325 mg PO QAM Imbruvica 420 mg tablet 420 mg PO QAM polyethylene glycol 3350 [Miralax] 17 gram/dose powder 17 g PO DAILY PRN (Reason: Constipation) Rx Instructions: As directed by gastroenterology department at [facility] duloxetine 60 mg capsule,delayed release(DR/EC) 60 mg PO QAM citalopram 20 mg tablet 20 mg PO QAM metformin 1,000 mg tablet 1,000 mg PO BID carvedilol 25 mg tablet 25 mg PO BID amlodipine 10 mg tablet 10 mg PO QAM (DME) Accu-Chek Guide test strips Strip See Rx Instructions .ROUTE DAILY Qty: 10 Rx Instructions: As directed (DME) lancets [FreeStyle Lancets] 28 gauge misc See Rx Instructions .ROUTE DAILY Qty: 100 Rx Instructions: As directed nystatin 100,000 unit/gram cream 1 appl topical TID PRN (Reason: fungal infec) Qty: 30 2RF furosemide 20 mg tablet 40 mg PO DAILY PRN (Reason: Edema) Print Language: Frisian
[2025-06-10 23:46] LABS: MANUAL DIFF FLAG NO
[2025-06-10 23:48] LABS: Appearance Urine Clear; Glucose Urine UA Negative (Negative); PH 6.5 (5.0-9.0); Specific Gravity - Urine 1.015 (1.005-1.025); UMIC TRIGGER UACC YES
[2025-06-10 23:49] LABS: Hematocrit 31.0 % (37.0-47.0); Hemoglobin 10.5 g/dl (12.0-16.0); Imm Gran Abs Auto 0.25 X10*3/uL (0.00-0.03); Imm Gran Pct Auto 3.2 % (0.0-0.4); Lymphocytes Absolute Auto 1.7 X10*3/uL (1.2-4.9); Mean Corpuscular HGB Conc 33.9 g/dl (31.0-35.0); Mean Corpuscular Hemoglobin 30.7 pg (27.0-33.0); Mean Corpuscular Volume 90.6 fL (80.0-98.0); NRBC Abs Auto 0.000 X10*3/uL (0.0-0.012); NRBC Pct Auto 0.0 /100WBC (0.0-0.2); Platelet Count 121 X10*3/uL (160-400); Red Blood Count 3.42 X10*6/uL (4.20-5.50); White Blood Count 7.8 X10*3/uL (4.8-10.8)
[2025-06-10 23:53] LABS: UACC Culture Trigger YES
[2025-06-10 23:57] LABS: INTERNATIONAL NORM RATIO 1.0 (0.9-1.1); Prothrombin Time 11.9 SEC (10.9-12.4)
[2025-06-11] VITALS (8 sets, daily range): BP systolic 139–192; BP diastolic 62–78; PULSE 54–63; RESP 16–20; TEMP 36.2–36.8; O2SAT 90–96
[2025-06-11 00:03] LABS: Alanine Aminotransferase 8 U/L (0-31); Albumin Level 3.9 g/dL (3.5-5.0); Alkaline Phosphatase 70 U/L (39-117); Anion Gap 13 (12-20); Aspartate Amino Transferase 19 U/L (5-31); Blood Urea Nitrogen 28 mg/dL (9-16); Calcium 9.3 mg/dL (8.4-10.2); Carbon Dioxide 25 mmol/L (22-29); Chloride 108 mmol/L (96-108); Creatinine Clr Calc Pharmacy 31.2; Estimated Glomerular Filt Rate 30; Potassium 4.6 mmol/L (3.3-5.1); Sodium 141 mmol/L (135-145); Total Protein 5.6 g/dL (6.5-8.0)
--- NOTE | 2025-06-11 00:51 | PM.IMHP ---
History of Present Illness Date of Service: 06/11/25 Attending physician on admission: Jase Morris Chief Complaint: Fall, left hip pain Gissel Ortiz is a very pleasant 79 years old woman with past medical history significant for left hip multiple orthopedic surgeries, suprapubic catheter, hyperlipidemia, CKD, multiple UTIs, type 2 diabetes mellitus, COPD, essential hypertension, MILDRED on CPAP and leukemia was brought to the ED via EMS after she has sustained a fall after tripping with a rock. She landed on her left hip and also hit the back of her head. She denied any symptoms such as loss of consciousness, dizziness, chest pain or palpitations. She did report some shortness on breath which has been with for her COPD. She also reported some tenderness to the lower aspect of her abdomen. She denied tobacco smoking, alcohol abuse or illicit drug use. In the ED, she was found to have stable vital signs. Last blood pressure is 181/64. Blood workup showed no leukocytosis. Hemoglobin is 10.5 and platelet 121. INR is 1.0. There are no significant electrolyte imbalances. BUN is 28 and creatinine 1.67. Glucose is 219. LFTs are unremarkable. Head CT scan showed no acute intracranial, C-spine CT scan showed no acute process. Pelvic and hip x-ray showed left greater trochanter fracture. ECG showed normal sinus rhythm, heart rate 60 beats per minutes and occasional PVCs. Urinalysis consistent with UTI and microscopic hematuria. ED Tx: Acetaminophen 975 mg p.o., hydromorphone 0.5 mg IV and meropenem 1 g IV Review of Systems Review of Systems: All 12 systems were reviewed and normal except as noted in HPI. [facility] Medical History PAF (paroxysmal atrial fibrillation) Suprapubic catheter Neuropathy Osteoarthritis Morbid obesity Allergy to multiple antibiotics Depression Arthritis of left hip Wears dentures Neurogenic urinary bladder disorder History of blood transfusion History of CVA (cerebrovascular accident) Seasonal allergies PONV (postoperative nausea and vomiting) Diabetes with neurologic complications Type 2 diabetes mellitus with unspecified complications Anemia CLL (chronic lymphocytic leukemia) Sleep apnea Arthritis Fibromyalgia Hypercholesterolemia Hypertension History of bilateral breast cancer Urinary retention with incomplete bladder emptying Family History Mother Breast cancer Father Heart disease Father Lung cancer Mother Colon cancer Brother Pancreatic cancer Surgical History History of cervical discectomy History of open heart surgery (~01/31/24) History of total left hip replacement S/P Botox injection History of suprapubic catheter S/P left breast biopsy History of esophagogastroduodenoscopy (EGD) Hx of colonoscopy History of bladder repair surgery History of total hysterectomy S/P breast biopsy, right History of back surgery History of biopsy of bladder Social History Household Members: Spouse Housing: House Housing Other:: has chair lift for second floor access Are you a primary healthcare translator to a significant other at home: No Do you presently have visiting nurse or other home services: Yes (visiting nurse-recent in patient for UTI) Alcohol intake: never Comment: patient refused telesiter,removed per pt request Patient Tobacco Use Status: Never used Tobacco e-Cigarette/Vaping Use: Never Used Advance Directives: Yes Advance Directives on File: Yes Advance Directives Date on File: 07/30/23 Do you have a plan to hurt others: No Plan service: No Current occupational status: retired Meds Allergies Allergy/AdvReac Type Severity Reaction Status Date / Time amoxicillin (AMOXICILLIN) Allergy Severe stroke, Verified 06/10/25 21:01 blood clots ciprofloxacin (From CIPRO) Allergy Severe ANAPHYLAXIS Verified 06/10/25 21:01 Iodinated Contrast Media (IV Allergy Severe HIVES Verified 06/10/25 21:01 DYE, IODINE CONTAINING CONTRAST ) levofloxacin Allergy Severe Anaphylaxis Verified 06/10/25 21:01 liraglutide Allergy Severe Headache Verified 06/10/25 21:01 Penicillins Allergy Severe stroke, Verified 06/10/25 21:01 blood clots FREYA Inhibitors Allergy Intermediate Cough Verified 06/10/25 21:01 ARB-Angiotensin Receptor Allergy Intermediate Cough Verified 06/10/25 21:01 Antagonist cefpodoxime Allergy Intermediate Dizziness, Verified 06/10/25 21:01 nausea doxazosin Allergy Intermediate Shortness Verified 06/10/25 21:01 of Breath fluticasone (Advair Diskus) Allergy Intermediate Anxiety Verified 06/10/25 21:01 gabapentin (From Neurontin) Allergy Intermediate Headache Verified 06/10/25 21:01 hydralazine Allergy Intermediate Shortness Verified 06/10/25 21:01 of Breath latex Allergy Intermediate Hives Verified 06/10/25 21:01 linezolid Allergy Intermediate Nausea and Verified 06/10/25 21:01 Vomiting meloxicam Allergy Intermediate Unknown Verified 06/10/25 21:01 salmeterol (Advair Diskus) Allergy Intermediate Anxiety Verified 06/10/25 21:01 Tetanus Vaccines and Toxoid Allergy Intermediate Swelling Verified 06/10/25 21:01 torsemide Allergy Intermediate Shortness Verified 06/10/25 21:01 of Breath cephalexin (Keflex) Allergy Mild Nausea Verified 06/10/25 21:01 Active Medications: Current Medications Acetaminophen (Acetaminophen 325 Mg Tablet) 975 mg PO Q6H JORGE Stop: 06/11/25 18:46 Calcium Carbonate (Calcium Carbonate 750 Mg Tab.Chew) 750 mg PO Q4H PRN PRN Reason: Heartburn Enoxaparin Sodium (Enoxaparin Sodium 40 Mg/0.4 Ml Syringe) 40 mg SUBCUT Q24H JORGE Hydromorphone HCl (Hydromorphone Hcl 1 Mg/Ml Syringe) 0.5 mg IVPUSH Q4H PRN; Protocol PRN Reason: Pain, Severe (Pain Scale 7-10) Magnesium Hydroxide (Milk Of Magnesia 30 Ml Oral.Susp) 30 ml PO DAILY PRN PRN Reason: Constipation Melatonin (Melatonin 3 Mg Tablet) 6 mg PO BEDTIME PRN PRN Reason: Insomnia Sodium Chloride (0.9 % Sodium Chloride Flush 3 Ml Syringe) 3 ml IVFLUSH QSHIFT [facility] Home Medications ?Medication ?Instructions ?Recorded ?Confirmed ?Last Taken ?Type citalopram 20 mg tablet 20 mg PO QAM 07/21/20 05/05/25 04/16/22 History duloxetine 60 mg capsule,delayed 60 mg PO QAM 07/21/20 05/05/25 04/16/22 History release amlodipine 10 mg tablet 10 mg PO QAM 03/23/21 05/05/25 04/16/22 History metformin 1,000 mg tablet 1,000 mg PO BID 04/19/21 05/05/25 Unknown History carvedilol 25 mg tablet 25 mg PO BID 05/31/21 05/05/25 04/16/22 History blood sugar diagnostic (Accu-Chek #10 ea 09/04/22 05/05/25 Unknown History Guide test strips) coenzyme Q10 100 mg capsule 100 mg PO BEDTIME 01/03/23 05/05/25 Unknown History (CoQ-10) magnesium 250 mg tablet 250 mg PO BEDTIME 01/03/23 05/05/25 Unknown History multivitamin 1 tab PO QAM 01/03/23 05/05/25 Unknown History pregabalin 150 mg capsule 150 mg PO BID 01/03/23 05/05/25 Unknown History polyethylene glycol 3350 17 17 g PO DAILY PRN Constipation 10/28/24 05/05/25 Unknown History gram/dose oral powder (Miralax) aspirin 81 mg tablet,delayed 81 mg PO QAM 11/04/24 05/05/25 Unknown History release (Enteric Coated Aspirin) ferrous sulfate 325 mg (65 mg 325 mg PO QAM 11/04/24 05/05/25 Unknown History iron) tablet (iron) ibrutinib 420 mg tablet (Imbruvica) 420 mg PO QAM 11/04/24 05/05/25 Unknown History furosemide 20 mg tablet 40 mg PO DAILY PRN Edema 04/15/25 05/05/25 Unknown History lancets 28 gauge (FreeStyle #100 ea 04/15/25 05/05/25 Unknown History Lancets) Physical Exam Vital Signs and Narrative: Vital Signs: Last Vital Signs Temp 98.2 F 06/11/25 00:19 Pulse 61 06/11/25 00:19 Resp 18 06/11/25 00:19 BP 181/64 H 06/11/25 00:19 Pulse Ox 96 06/11/25 00:19 O2 Del Method Room Air 06/11/25 00:19 BMI result Body Mass Index 36.4 Constitutional - Awake and Alert, No apparent distress. Obese. HEENT - PER, EOMI Heart - S1S2, RRR, No edema Lungs - Normal lung expansion, Normal respiratory effort, No respiratory distress, CTA bilaterally Abdomen - suprapubic catheter in place + minimal quantity of blood, normal bowel sounds, nondistended, pelvic tenderness to palpation without rebound or guarding. Extremities - no calf tenderness bilaterally, no swelling. Left hip: Tenderness to palpation. Limited ROM. Musculoskeletal - Normal inspection, normal ROM Skin - Warm/Dry Neurological - Alert & oriented x3. No gross focal weakness. Normal speech. Psychological - Appropriate affect Results Labs 06/10/25 23:40 06/10/25 23:40 Labs: Laboratory Results - last 24 hr 06/10/25 23:40 MCV 90.6 MCH 30.7 MCHC 33.9 RDW 14.2 Plt Count 121 L MPV 11.2 Immature Gran % (Auto) 3.2 H Neut % (Auto) 64.1 Lymph % (Auto) 21.8 [place] % (Auto) 8.7 Eos % (Auto) 1.7 Baso % (Auto) 0.5 Lymph # (Auto) 1.7 [place] # (Auto) 0.7 Eos # (Auto) 0.1 Baso # (Auto) 0.0 Abs Immat Gran (auto) 0.25 H Absolute Neuts (auto) 5.0 Absolute Nucleated RBC 0.000 Nucleated RBC % (auto) 0.0 PT 11.9 INR 1.0 Anion Gap 13 Estim Creat Clear Calc 31.2 Estimated GFR 30 Random Glucose 219 H Calcium 9.3 Total Bilirubin 0.3 AST 19 ALT 8 Alkaline Phosphatase 70 Total Protein 5.6 L Albumin 3.9 Urine Color Yellow Urine Appearance Clear Urine pH 6.5 Ur Specific [place] 1.015 Urine Protein 30 (1+) H Urine Glucose (UA) Negative Urine Ketones Negative Urine Blood Small (1+) H Urine Nitrite Negative Ur Leukocyte Esterase Moderate (2+) H Urine RBC >20 H Urine WBC 21-50 H Ur Squamous Epith Cells 0-2 Urine Bacteria 4+ Hyaline Casts 0-2 Assessment and Plan (1) Closed left hip fracture: Qualifiers: Encounter type: initial encounter Qualified Code(s): S72.002A - Fracture of unspecified part of neck of left femur, initial encounter for closed fracture Status: Acute (2) Catheter-associated urinary tract infection: Qualifiers: Indwelling urinary catheter type: cystostomy catheter Encounter type: subsequent encounter Qualified Code(s): T83.510D - Infection and inflammatory reaction due to cystostomy catheter, subsequent encounter; N39.0 - Urinary tract infection, site not specified Status: Acute Plan Gissel Ortiz is a 79 y/o woman with a PMHx significant for left hip multiple orthopedic surgeries and recurrent UTI due to Pseudomonas, E.coli, Klebsiella pneumoniae and other organisms (colonized with Pseudomonas and stenotrophomonas) who presents with: Left greater trochanteric fracture, closed. Admit under hospitalist. Pain control. Orthopedic surgery consult -ED contacted Dr. Garrido. Catheter-associated UTI/suprapubic due to neurogenic bladder associated microscopic hematuria; complains of pelvic pain. Continue meropenem. Urine culture obtained -we will follow results. Type 2 diabetes mellitus. BG checks before meals at bedtime. Hold metformin. Insulin sliding scale. Diabetic diet. Paroxysmal atrial fibrillation. Continue Coreg. On aspirin. History of CVA. Continue aspirin and statin. CAD s/p CABG x3. Continue aspirin and statin. Hyperlipidemia. Continue statin. Essential hypertension. Continue amlodipine and carvedilol. Neuropathy/fibromyalgia. Continue pregabalin. CKD state 3B. Avoid nephrotoxic agents. Continue to monitor renal function. GERD. Continue famotidine and PPI. MILDRED. Nocturnal CPAP. Depression. Continue citalopram. CLL. On Imbruvica. Chronic thrombocytopenia. Platelets 121 tonight. Continue to monitor. History of bilateral breast cancer. Code status: Full DVT prophylaxis: Lovenox Patient will need hospitalization for at least 2 midnights for left greater trochanteric fracture treatment with IV pain meds and evaluation by Orthopedic surgery; she will also need therapy with IV antibiotics for UTI in the setting of suprapubic catheter. Quality Stroke Does the patient have a stroke diagnosis?: No VTE Prior VTE?: No VTE Risk Level:: Medical - moderate - high VTE Device Contraindication: N/A - Device Ordered VTE Drug Contraindication: N/A - Med Ordered
--- NOTE | 2025-06-11 01:32 | PC.NURSE ---
PT medicated as per MAR
[2025-06-11 01:39] LABS: Glucose, Whole Blood 199 mg/dL (60-115)
[2025-06-11 06:15] LABS: MANUAL DIFF FLAG NO
[2025-06-11 06:22] LABS: Hematocrit 29.5 % (37.0-47.0); Hemoglobin 9.8 g/dl (12.0-16.0); Imm Gran Abs Auto 0.15 X10*3/uL (0.00-0.03); Imm Gran Pct Auto 2.0 % (0.0-0.4); Lymphocytes Absolute Auto 1.9 X10*3/uL (1.2-4.9); Mean Corpuscular HGB Conc 33.2 g/dl (31.0-35.0); Mean Corpuscular Hemoglobin 30.2 pg (27.0-33.0); Mean Corpuscular Volume 91.0 fL (80.0-98.0); NRBC Abs Auto 0.000 X10*3/uL (0.0-0.012); NRBC Pct Auto 0.0 /100WBC (0.0-0.2); Platelet Count 119 X10*3/uL (160-400); Red Blood Count 3.24 X10*6/uL (4.20-5.50); White Blood Count 7.6 X10*3/uL (4.8-10.8)
[2025-06-11 06:40] LABS: Anion Gap 12 (12-20); Blood Urea Nitrogen 24 mg/dL (9-16); Calcium 8.9 mg/dL (8.4-10.2); Carbon Dioxide 27 mmol/L (22-29); Chloride 108 mmol/L (96-108); Creatinine Clr Calc Pharmacy 32.6; Estimated Glomerular Filt Rate 31; Potassium 4.8 mmol/L (3.3-5.1); Sodium 142 mmol/L (135-145)
--- NOTE | 2025-06-11 06:41 | PC.NURSE ---
Pt medicated as per nov. reporting pain of 2/10. Plan of care ongoing
[2025-06-11 07:42] LABS: Glucose, Whole Blood 113 mg/dL (60-115)
--- NOTE | 2025-06-11 08:33 | PHA.MEDREC ---
Pharmacy Consult ? Medication Reconciliation Pharmacy has completed the medication reconciliation. Spoke to patient to confirm med list. Patient confirmed she is taking furosemide 40 mg daily prn edema, oxybutynin 5 mg bid prn bladder spasms and miralax 17 g daily prn constipation. She confirmed she no longer takes meropenem, nystatin cream, phenazopyridine, spironolactone nor bactrim SS. Last dose of medications was taken yesterday morning 06/10/25.
--- NOTE | 2025-06-11 09:00 | PM.CNOR ---
History of Present Illness HPI Consult date: 06/11/25 Chief complaint: left greater trochanteric fracture Narrative: 79-year-old female presented to the emergency department after sustaining a fall at home after tripping over a rock. She landed on her left side and hit the back of her head. She denies loss of consciousness. She recently had a left revision total hip arthroplasty at [facility] in January of this year. X-rays obtained in the emergency department showed a greater trochanteric periprosthetic fracture of the left femur. Orthopedics was consulted for further recommendations. Review of Systems Review of Systems: Yes all other systems are reviewed and are negative [facility] Past Medical History Medical History PAF (paroxysmal atrial fibrillation) Suprapubic catheter Neuropathy Osteoarthritis Morbid obesity Allergy to multiple antibiotics Depression Arthritis of left hip Wears dentures Neurogenic urinary bladder disorder History of blood transfusion History of CVA (cerebrovascular accident) Seasonal allergies PONV (postoperative nausea and vomiting) Diabetes with neurologic complications Type 2 diabetes mellitus with unspecified complications Anemia CLL (chronic lymphocytic leukemia) Sleep apnea Arthritis Fibromyalgia Hypercholesterolemia Hypertension History of bilateral breast cancer Urinary retention with incomplete bladder emptying Family History Family History Mother Breast cancer Father Heart disease Father Lung cancer Mother Colon cancer Brother Pancreatic cancer Surgical History Surgical History History of cervical discectomy History of open heart surgery (~01/31/24) History of total left hip replacement S/P Botox injection History of suprapubic catheter S/P left breast biopsy History of esophagogastroduodenoscopy (EGD) Hx of colonoscopy History of bladder repair surgery History of total hysterectomy S/P breast biopsy, right History of back surgery History of biopsy of bladder Social History Social History Household Members: Spouse Housing: House Housing Other:: has chair lift for second floor access Are you a primary health care coach to a significant other at home: No Do you presently have visiting nurse or other home services: Yes (visiting nurse-recent in patient for UTI) Alcohol intake: never Comment: patient refused telesiter,removed per pt request Patient Tobacco Use Status: Never used Tobacco e-Cigarette/Vaping Use: Never Used Advance Directives: Yes Advance Directives on File: Yes Advance Directives Date on File: 07/30/23 Do you have a plan to hurt others: No Plan service: No Current occupational status: retired Meds Allergies Allergy/AdvReac Type Severity Reaction Status Date / Time amoxicillin (AMOXICILLIN) Allergy Severe stroke, Verified 06/10/25 21:01 blood clots ciprofloxacin (From CIPRO) Allergy Severe ANAPHYLAXIS Verified 06/10/25 21:01 Iodinated Contrast Media (IV Allergy Severe HIVES Verified 06/10/25 21:01 DYE, IODINE CONTAINING CONTRAST ) levofloxacin Allergy Severe Anaphylaxis Verified 06/10/25 21:01 liraglutide Allergy Severe Headache Verified 06/10/25 21:01 Penicillins Allergy Severe stroke, Verified 06/10/25 21:01 blood clots FREYA Inhibitors Allergy Intermediate Cough Verified 06/10/25 21:01 ARB-Angiotensin Receptor Allergy Intermediate Cough Verified 06/10/25 21:01 Antagonist cefpodoxime Allergy Intermediate Dizziness, Verified 06/10/25 21:01 nausea doxazosin Allergy Intermediate Shortness Verified 06/10/25 21:01 of Breath fluticasone (Advair Diskus) Allergy Intermediate Anxiety Verified 06/10/25 21:01 gabapentin (From Neurontin) Allergy Intermediate Headache Verified 06/10/25 21:01 hydralazine Allergy Intermediate Shortness Verified 06/10/25 21:01 of Breath latex Allergy Intermediate Hives Verified 06/10/25 21:01 linezolid Allergy Intermediate Nausea and Verified 06/10/25 21:01 Vomiting meloxicam Allergy Intermediate Unknown Verified 06/10/25 21:01 salmeterol (Advair Diskus) Allergy Intermediate Anxiety Verified 06/10/25 21:01 Tetanus Vaccines and Toxoid Allergy Intermediate Swelling Verified 06/10/25 21:01 torsemide Allergy Intermediate Shortness Verified 06/10/25 21:01 of Breath cephalexin (Keflex) Allergy Mild Nausea Verified 06/10/25 21:01 Active Medications: Current Medications Acetaminophen (Acetaminophen 325 Mg Tablet) 975 mg PO Q6H JORGE Stop: 06/11/25 18:46 Last Admin: 06/11/25 06:33 Dose: 975 mg Calcium Carbonate (Calcium Carbonate 750 Mg Tab.Chew) 750 mg PO Q4H PRN PRN Reason: Heartburn Dextrose (Dextrose 50 % 25 Gm/50 Ml Syringe) 25 gm IVPUSH Q15M PRN; Protocol PRN Reason: per Hypoglycemia Standing Ord. Enoxaparin Sodium (Enoxaparin Sodium 40 Mg/0.4 Ml Syringe) 40 mg SUBCUT Q24H [facility] Glucose (Glucose Gel 15 Gm Gel..Gram.) 15 gm PO Q15M PRN; Protocol PRN Reason: per Hypoglycemia Standing Ord. Hydromorphone HCl (Hydromorphone Hcl 1 Mg/Ml Syringe) 0.5 mg IVPUSH Q4H PRN; Protocol PRN Reason: Pain, Severe (Pain Scale 7-10) Insulin Human Lispro (Insulin Lispro 100 Unit/Ml 3 Ml Vial) 0 unit SUBCUT QIDACHS [facility]; Protocol Last Admin: 06/11/25 07:43 Dose: Not Given Magnesium Hydroxide (Milk Of Magnesia 30 Ml Oral.Susp) 30 ml PO DAILY PRN PRN Reason: Constipation Melatonin (Melatonin 3 Mg Tablet) 6 mg PO BEDTIME PRN PRN Reason: Insomnia Meropenem (Meropenem 1 Gm Vial) 1 gm IVPUSH Q12H [facility] Sodium Chloride (0.9 % Sodium Chloride Flush 3 Ml Syringe) 3 ml IVFLUSH QSHIFT [facility] Last Admin: 06/11/25 07:44 Dose: Not Given Home Medications ?Medication ?Instructions ?Recorded ?Confirmed ?Last Taken ?Type citalopram 20 mg tablet 20 mg PO DAILY 07/21/20 06/11/25 06/10/25 History duloxetine 60 mg capsule,delayed 60 mg PO DAILY 07/21/20 06/11/25 06/10/25 History release amlodipine 10 mg tablet 10 mg PO DAILY 03/23/21 06/11/25 06/10/25 History metformin 1,000 mg tablet 1,000 mg PO BID 04/19/21 06/11/25 06/10/25 History carvedilol 25 mg tablet 25 mg PO BID 05/31/21 06/11/25 06/10/25 History blood sugar diagnostic (Accu-Chek #10 ea 09/04/22 05/05/25 Unknown History Guide test strips) coenzyme Q10 100 mg capsule 100 mg PO BEDTIME 01/03/23 06/11/25 06/09/25 History (CoQ-10) magnesium 250 mg tablet 250 mg PO BEDTIME 01/03/23 06/11/25 06/09/25 History multivitamin 1 tab PO DAILY 01/03/23 06/11/25 06/10/25 History pregabalin 150 mg capsule 150 mg PO BID 01/03/23 06/11/25 06/10/25 History polyethylene glycol 3350 17 17 g PO DAILY PRN Constipation 10/28/24 06/11/25 Unknown History gram/dose oral powder (Miralax) aspirin 81 mg tablet,delayed 81 mg PO DAILY 11/04/24 06/11/25 Unknown History release (Enteric Coated Aspirin) ferrous sulfate 325 mg (65 mg 325 mg PO DAILY 11/04/24 06/11/25 06/10/25 History iron) tablet (iron) ibrutinib 420 mg tablet (Imbruvica) 420 mg PO DAILY 11/04/24 06/11/25 06/10/25 History furosemide 20 mg tablet 40 mg PO DAILY PRN Edema 04/15/25 06/11/25 Unknown History lancets 28 gauge (FreeStyle #100 ea 04/15/25 05/05/25 Unknown History Lancets) ascorbic acid (vitamin C) 1,000 mg 1,000 mg PO DAILY 06/11/25 06/11/25 06/10/25 History tablet atorvastatin 80 mg tablet 80 mg PO BEDTIME 06/11/25 06/11/25 06/09/25 History Physical Exam Vital Signs: Vital Signs: Last Vital Signs Temp 98.2 F 06/11/25 07:40 Pulse 59 06/11/25 07:40 Resp 16 06/11/25 07:40 BP 166/62 H 06/11/25 07:40 Pulse Ox 95 06/11/25 07:40 O2 Del Method Room Air 06/11/25 07:40 BMI result Body Mass Index 36.4 Const: General: cooperative and no acute distress Orientation/consciousness: patient oriented x3 Resp: Effort & Inspection: normal respiratory effort and able to speak in complete sentences Cardio: Peripheral pulses: Peripheral pulses 2+ throughout Neuro: General: patient oriented x3 Extrem: Other: Left hip is normal to inspection. Incision well healed. She can perform a straight leg raise. She is able to plantar and dorsiflex the foot and has good sensation and pulses are present. Results Labs 06/11/25 05:20 06/11/25 05:20 Labs: Abnormal lab results 06/10/25 06/11/25 06/11/25 Range/Units 23:40 01:35 05:20 RBC 3.42 L 3.24 L (4.20-5.50) X10*6/uL Hgb 10.5 L 9.8 L (12.0-16.0) g/dl Hct 31.0 L 29.5 L (37.0-47.0) % Plt Count 121 L 119 L (160-400) X10*3/uL Immature Gran % (Auto) 3.2 H 2.0 H (0.0-0.4) % Abs Immat Gran (auto) 0.25 H 0.15 H (0.00-0.03) X10*3/uL BUN 28 H 24 H (9-16) mg/dL Creatinine 1.67 H 1.60 H (0.5-1.4) mg/dL POC Glucose 199 H (60-115) mg/dL Random Glucose 219 H (60-115) mg/dL Total Protein 5.6 L (6.5-8.0) g/dL Urine Protein 30 (1+) H (Neg-Trace) mg/dL Urine Blood Small (1+) H (Negative) Ur Leukocyte Esterase Moderate (2+) H (Negative) Urine RBC >20 H (0-2) /HPF Urine WBC 21-50 H (0-5) /HPF H & H 06/10/25 06/11/25 Range/Units 23:40 05:20 Hgb 10.5 L 9.8 L (12.0-16.0) g/dl Hct 31.0 L 29.5 L (37.0-47.0) % Coagulation 06/10/25 Range/Units 23:40 INR 1.0 (0.9-1.1) All other labs normal. Diagnostic results Hip x-ray: image reviewed (X-rays of the left hip obtained in the emergency department significant for greater trochanteric fracture without evidence of femoral stem loosening) Assessment and Plan (1) Fracture of greater trochanter of left femur: Status: Acute (2) Periprosthetic fracture around internal prosthetic hip joint: Status: Acute Plan I discussed the extent of the injury with the patient and explained while the stem does appear stable we want to prevent it from subsiding. In that case we will limit her weight-bearing status on the left to toe-touch weight-bearing with transfers. I encouraged her to follow up with her surgeon in [facility] sooner than later as her next appointment is not until August. They should continue to monitor this injury which the patient is content with. No further orthopedic intervention warranted at this time. Procedures Date of Service Date of Service: 06/11/25
[2025-06-11 11:54] LABS: Glucose, Whole Blood 128 mg/dL (60-115)
[2025-06-11] MEDS: Aspirin Enteric Coated 81 MG TABLET.DR PO (12:26)
--- NOTE | 2025-06-11 12:53 | MHC.CM.PN ---
pt lives with had no services will need rehab dc plan str
--- NOTE | 2025-06-11 14:23 | PM.EVENT ---
Event Note Date of Service: 06/11/25 Event Note: Chart reviewed patient examined. Agree with assessment and H&P as outlined Time Spent With Patient Time: Total time managing care of this patient today ____ minutes.
[2025-06-11 16:37] LABS: Glucose, Whole Blood 132 mg/dL (60-115)
[2025-06-11] MEDS: oxyCODONE HCl Immed Release 5 MG TABLET PO (18:04)
[2025-06-11 20:31] LABS: Glucose, Whole Blood 119 mg/dL (60-115)
[2025-06-11] MEDS: 0.9 % Sodium Chloride Flush 3 ML SYRINGE IVFLUSH (21:52)
[2025-06-12 08:00] VITALS: BP 144/67; PULSE 84; RESP 19; TEMP 36.1; O2SAT 92
[2025-06-12 08:00] LABS: Glucose, Whole Blood 152 mg/dL (60-115)
[2025-06-12] MEDS: Aspirin Enteric Coated 81 MG TABLET.DR PO (08:40)
[2025-06-12] MEDS: 0.9 % Sodium Chloride Flush 3 ML SYRINGE IVFLUSH ×3 (09:46→19:55)
--- NOTE | 2025-06-12 10:09 | PC.NURSE ---
Port Access Pt port was accessed this AM by ED nurse Cristian. Noted that this port is not a power port.
[2025-06-12 10:57] LABS: Glucose, Whole Blood 138 mg/dL (60-115)
[2025-06-12 11:58] VITALS: O2SAT 92
--- NOTE | 2025-06-12 12:16 | P.PNIM_ITS ---
Subjective Subjective Date of Service: 06/12/25 Interval History: No acute issues overnight. Did have some scant bleeding around suprapubic line however self-limiting Review of Systems Denies chest pain Denies shortness of breath Denies nausea vomiting diarrhea Denies fever chills Physical Exam 2 Vital Signs: Vital Signs: Last Vital Signs Temp 97.0 F 06/12/25 08:00 Pulse 84 06/12/25 08:00 Resp 19 06/12/25 08:00 BP 144/67 H 06/12/25 08:00 Pulse Ox 92 06/12/25 11:58 O2 Del Method Room Air 06/12/25 11:58 BMI result Body Mass Index 36.4 Const: Other: Awake alert no acute distress Resp: Other: Clear to auscultation bilaterally no rales rhonchi or wheezes Cardio: Other: No S4; positive S1-S2; no S3 murmurs rubs or gallops GI: Other: Soft nontender nondistended normoactive bowel sounds Extrem: Other: No edema bilaterally Objective Data Active Medications Acetaminophen (Acetaminophen 325 Mg Tablet) 650 mg PO Q6H PRN PRN Reason: Pain, Mild (Pain Scale 1-3) Amlodipine Besylate (Amlodipine Besylate 10 Mg Tablet) 10 mg PO DAILY [facility]; Protocol Last Admin: 06/12/25 08:40 Dose: 10 mg Documented By: JESS Ascorbic Acid (Ascorbic Acid 500 Mg Tablet) 1,000 mg PO DAILY [facility] Last Admin: 06/12/25 08:41 Dose: 1,000 mg Documented By: JESS Aspirin (Aspirin Enteric Coated 81 Mg Tablet.) 81 mg PO DAILY [facility] Last Admin: 06/12/25 08:40 Dose: 81 mg Documented By: JESS Atorvastatin Calcium (Atorvastatin Calcium 80 Mg Tablet) 80 mg PO BEDTIME [facility] Last Admin: 06/11/25 21:51 Dose: 80 mg Documented By: LUIS Calcium Carbonate (Calcium Carbonate 750 Mg Tab.Chew) 750 mg PO Q4H PRN PRN Reason: Heartburn Carvedilol (Carvedilol 25 Mg Tablet) 25 mg PO BID [facility]; Protocol Last Admin: 06/12/25 08:40 Dose: 25 mg Documented By: JESS Dextrose (Dextrose 50 % 25 Gm/50 Ml Syringe) 25 gm IVPUSH Q15M PRN; Protocol PRN Reason: per Hypoglycemia Standing Ord. Duloxetine HCl (Duloxetine Hcl 60 Mg Capsule.) 60 mg PO DAILY [facility] Last Admin: 06/12/25 08:40 Dose: 60 mg Documented By: JESS Enoxaparin Sodium (Enoxaparin Sodium 40 Mg/0.4 Ml Syringe) 40 mg SUBCUT Q24H [facility] Last Admin: 06/12/25 08:39 Dose: 40 mg Documented By: JESS Escitalopram Oxalate (Escitalopram Oxalate 10 Mg Tablet) 10 mg PO DAILY [facility] Famotidine (Famotidine 20 Mg Tablet) 40 mg PO Q48H JORGE Furosemide (Furosemide 40 Mg Tablet) 40 mg PO DAILY PRN; Protocol PRN Reason: Edema Glucose (Glucose Gel 15 Gm Gel..Gram.) 15 gm PO Q15M PRN; Protocol PRN Reason: per Hypoglycemia Standing Ord. Hydromorphone HCl (Hydromorphone Hcl 1 Mg/Ml Syringe) 0.5 mg IVPUSH Q4H PRN; Protocol PRN Reason: Pain, Severe (Pain Scale 7-10) Insulin Human Lispro (Insulin Lispro 100 Unit/Ml 3 Ml Vial) 0 unit SUBCUT QIDACHS [facility]; Protocol Last Admin: 06/12/25 11:10 Dose: Not Given Documented By: JESS Non-Admin Reason: No Insulin Coverage Magnesium Hydroxide (Milk Of Magnesia 30 Ml Oral.Susp) 30 ml PO DAILY PRN PRN Reason: Constipation Melatonin (Melatonin 3 Mg Tablet) 6 mg PO BEDTIME PRN PRN Reason: Insomnia Meropenem (Meropenem 1 Gm Vial) 1 gm IVPUSH Q12H [facility] Last Admin: 06/12/25 09:38 Dose: 1 gm Documented By: JESS Metformin HCl (Metformin Hcl 500 Mg Tablet) 500 mg PO BID [facility] Last Admin: 06/12/25 08:43 Dose: 500 mg Documented By: JESS Multivitamins/Vitamin C (Multivitamin Tablet) 1 tab PO DAILY [facility] Last Admin: 06/12/25 08:40 Dose: 1 tab Documented By: JESS Non-Formulary Medication (Ibrutinib [Imbruvica]) 420 mg PO DAILY [facility] Omeprazole (Omeprazole 20 Mg Capsule.) 20 mg PO BID@0630,1630 [facility] Last Admin: 06/12/25 06:09 Dose: 20 mg Documented By: LUIS Oxybutynin Chloride (Oxybutynin Chloride 5 Mg Tablet) 5 mg PO BID PRN PRN Reason: Bladder Spasms Oxycodone HCl (Oxycodone Hcl Immed Release 5 Mg Tablet) 5 mg PO Q4H PRN PRN Reason: Pain, Moderate(Pain Scale 4-6) Last Admin: 06/11/25 18:04 Dose: 5 mg Documented By: HECTOR Polyethylene Glycol (Polyethylene Glycol 3350 17 Gm Powd.Pack) 17 gm PO DAILY PRN PRN Reason: Constipation Pregabalin (Pregabalin 150 Mg Capsule) 150 mg PO BID [facility] Last Admin: 06/12/25 08:40 Dose: 150 mg Documented By: JESS Sodium Chloride (0.9 % Sodium Chloride Flush 3 Ml Syringe) 3 ml IVFLUSH QSHIFT [facility] Last Admin: 06/12/25 09:46 Dose: 3 ml Documented By: JESS Labs 06/11/25 05:20 06/11/25 05:20 Labs: Laboratory Results - last 24 hr 06/11/25 06/11/25 06/12/25 16:34 20:27 07:56 POC Glucose 132 H 119 H 152 H 06/12/25 10:50 POC Glucose 138 H Microbiology Microbiology Results: Microbiology 06/11/25 00:47 Blood Culture - Preliminary Blood - Venous No growth after 24 hours. 06/11/25 00:27 Blood Culture - Preliminary Blood - Venous No growth after 24 hours. Assessment and Plan (1) Periprosthetic fracture around internal prosthetic hip joint: Status: Acute (2) Recurrent UTI: Status: Acute (3) Neurogenic urinary bladder disorder: Status: Acute (4) Diabetes: Status: Acute (5) PAF (paroxysmal atrial fibrillation): Status: Acute Plan Gissel Ortiz is a 79 y/o woman with a PMHx significant for left hip multiple orthopedic surgeries and recurrent UTI due to Pseudomonas, E.coli, Klebsiella pneumoniae and other organisms (colonized with Pseudomonas and stenotrophomonas) who presents with: 1.Left greater trochanteric fracture, closed. -pain control adequate -ortho recommends PT and follow up with orthopedist at [facility] -PT recommends acute rehab. . . Awaiting authorization 2.Catheter-associated UTI/suprapubic due to neurogenic bladder associated microscopic hematuria -continue meropenem(2) -further plans based on culture results 3.Type 2 diabetes mellitus. -acceptable control on current therapies -lispro correctional scale -adjust as indicated 4.Paroxysmal atrial fibrillation. -examines in sinus rhythm -continue current therapies 5.CKD 3 -stable well compensated -follow renals/divalents 6.CLL. -Imbruvica. Code status: Full DVT prophylaxis: Lovenox Patient requires ongoing hospitalization secondary to the need for acute rehab placement Quality Stroke Does the patient have a stroke diagnosis?: No VTE Prior VTE?: No VTE Risk Level:: Medical - moderate - high VTE Device Contraindication: N/A - Device Ordered VTE Drug Contraindication: N/A - Med Ordered
[2025-06-12 15:16] VITALS: BP 138/65; PULSE 64; RESP 18; TEMP 36.4; O2SAT 63
[2025-06-12 16:05] LABS: Glucose, Whole Blood 159 mg/dL (60-115)
[2025-06-12 19:14] VITALS: BP 185/79; PULSE 64; RESP 18; TEMP 37.1; O2SAT 95
[2025-06-12 19:38] LABS: Glucose, Whole Blood 160 mg/dL (60-115)
[2025-06-12] MEDS: oxyCODONE HCl Immed Release 5 MG TABLET PO (19:55)
[2025-06-13 03:46] VITALS: BP 135/64; PULSE 61; RESP 18; TEMP 36.1; O2SAT 93
[2025-06-13 07:15] LABS: MANUAL DIFF FLAG NO
[2025-06-13 07:31] LABS: Hematocrit 29.4 % (37.0-47.0); Hemoglobin 9.8 g/dl (12.0-16.0); Imm Gran Abs Auto 0.13 X10*3/uL (0.00-0.03); Imm Gran Pct Auto 1.7 % (0.0-0.4); Lymphocytes Absolute Auto 1.8 X10*3/uL (1.2-4.9); Mean Corpuscular HGB Conc 33.3 g/dl (31.0-35.0); Mean Corpuscular Hemoglobin 30.6 pg (27.0-33.0); Mean Corpuscular Volume 91.9 fL (80.0-98.0); NRBC Abs Auto 0.000 X10*3/uL (0.0-0.012); NRBC Pct Auto 0.0 /100WBC (0.0-0.2); Platelet Count 116 X10*3/uL (160-400); Red Blood Count 3.20 X10*6/uL (4.20-5.50); White Blood Count 7.8 X10*3/uL (4.8-10.8)
[2025-06-13 07:34] LABS: Glucose, Whole Blood 130 mg/dL (60-115)
[2025-06-13 07:53] VITALS: BP 159/70; PULSE 62; RESP 12; TEMP 36.1; O2SAT 95
[2025-06-13 07:53] LABS: Alanine Aminotransferase < 6 U/L (0-31); Albumin Level 3.5 g/dL (3.5-5.0); Anion Gap 11 (12-20); Aspartate Amino Transferase 14 U/L (5-31); Blood Urea Nitrogen 21 mg/dL (9-16); Calcium 9.1 mg/dL (8.4-10.2); Carbon Dioxide 27 mmol/L (22-29); Chloride 105 mmol/L (96-108); Creatinine Clr Calc Pharmacy 33.0; Estimated Glomerular Filt Rate 32; Potassium 4.4 mmol/L (3.3-5.1); Sodium 139 mmol/L (135-145); Total Protein 5.5 g/dL (6.5-8.0)
[2025-06-13] MEDS: Aspirin Enteric Coated 81 MG TABLET.DR PO (08:00)
[2025-06-13] MEDS: 0.9 % Sodium Chloride Flush 3 ML SYRINGE IVFLUSH ×3 (08:01→20:33)
[2025-06-13 08:06] LABS: Alkaline Phosphatase 45 U/L (39-117)
--- NOTE | 2025-06-13 09:25 | PC.NURSE ---
Md [place] made aware pt has expiratory wheezing throughout and a productive cough, pt is not SOB, maintaining o2 saturation, no S&S of distress noted. No new orders at this time, per MD monitor for SOB.
--- NOTE | 2025-06-13 10:18 | P.PNIM_ITS ---
Subjective Subjective Date of Service: 06/13/25 Interval History: has some wheezing but no sob pain is weel controlled. Physical Exam 2 Vital Signs: Vital Signs: Last Vital Signs Temp 96.9 F 06/13/25 07:53 Pulse 62 06/13/25 07:53 Resp 12 06/13/25 07:53 BP 159/70 H 06/13/25 07:53 Pulse Ox 95 06/13/25 07:53 O2 Del Method Room Air 06/13/25 07:53 BMI result Body Mass Index 36.4 Const: Other: Awake alert no acute distress Resp: Other: Clear to auscultation bilaterally no rales rhonchi or wheezes Cardio: Other: No S4; positive S1-S2; no S3 murmurs rubs or gallops GI: Other: Soft nontender nondistended normoactive bowel sounds Extrem: Other: No edema bilaterally Objective Data Active Medications Acetaminophen (Acetaminophen 325 Mg Tablet) 650 mg PO Q6H PRN PRN Reason: Pain, Mild (Pain Scale 1-3) Amlodipine Besylate (Amlodipine Besylate 10 Mg Tablet) 10 mg PO DAILY [facility]; Protocol Last Admin: 06/13/25 08:00 Dose: 10 mg Documented By: JESS Ascorbic Acid (Ascorbic Acid 500 Mg Tablet) 1,000 mg PO DAILY [facility] Last Admin: 06/13/25 08:01 Dose: 1,000 mg Documented By: JESS Aspirin (Aspirin Enteric Coated 81 Mg Tablet.) 81 mg PO DAILY [facility] Last Admin: 06/13/25 08:00 Dose: 81 mg Documented By: JESS Atorvastatin Calcium (Atorvastatin Calcium 80 Mg Tablet) 80 mg PO BEDTIME [facility] Last Admin: 06/12/25 19:53 Dose: 80 mg Documented By: LUIS Calcium Carbonate (Calcium Carbonate 750 Mg Tab.Chew) 750 mg PO Q4H PRN PRN Reason: Heartburn Carvedilol (Carvedilol 25 Mg Tablet) 25 mg PO BID [facility]; Protocol Last Admin: 06/13/25 08:01 Dose: 25 mg Documented By: JESS Dextrose (Dextrose 50 % 25 Gm/50 Ml Syringe) 25 gm IVPUSH Q15M PRN; Protocol PRN Reason: per Hypoglycemia Standing Ord. Duloxetine HCl (Duloxetine Hcl 60 Mg Capsule.) 60 mg PO DAILY [facility] Last Admin: 06/13/25 08:00 Dose: 60 mg Documented By: JESS Enoxaparin Sodium (Enoxaparin Sodium 40 Mg/0.4 Ml Syringe) 40 mg SUBCUT Q24H [facility] Last Admin: 06/13/25 08:01 Dose: 40 mg Documented By: JESS Escitalopram Oxalate (Escitalopram Oxalate 10 Mg Tablet) 10 mg PO DAILY [facility] Last Admin: 06/13/25 08:00 Dose: 10 mg Documented By: JESS Famotidine (Famotidine 20 Mg Tablet) 40 mg PO Q48H JORGE Furosemide (Furosemide 40 Mg Tablet) 40 mg PO DAILY PRN; Protocol PRN Reason: Edema Glucose (Glucose Gel 15 Gm Gel..Gram.) 15 gm PO Q15M PRN; Protocol PRN Reason: per Hypoglycemia Standing Ord. Hydromorphone HCl (Hydromorphone Hcl 1 Mg/Ml Syringe) 0.5 mg IVPUSH Q4H PRN; Protocol PRN Reason: Pain, Severe (Pain Scale 7-10) Insulin Human Lispro (Insulin Lispro 100 Unit/Ml 3 Ml Vial) 0 unit SUBCUT QIDACHS [facility]; Protocol Last Admin: 06/13/25 07:35 Dose: Not Given Documented By: JESS Non-Admin Reason: No Insulin Coverage Magnesium Hydroxide (Milk Of Magnesia 30 Ml Oral.Susp) 30 ml PO DAILY PRN PRN Reason: Constipation Melatonin (Melatonin 3 Mg Tablet) 6 mg PO BEDTIME PRN PRN Reason: Insomnia Meropenem (Meropenem 1 Gm Vial) 1 gm IVPUSH Q12H [facility] Last Admin: 06/13/25 08:01 Dose: 1 gm Documented By: JESS Metformin HCl (Metformin Hcl 500 Mg Tablet) 500 mg PO BID [facility] Last Admin: 06/13/25 08:00 Dose: 500 mg Documented By: JESS Multivitamins/Vitamin C (Multivitamin Tablet) 1 tab PO DAILY [facility] Last Admin: 06/13/25 08:01 Dose: 1 tab Documented By: JESS Non-Formulary Medication (Ibrutinib [Imbruvica]) 420 mg PO DAILY [facility] Omeprazole (Omeprazole 20 Mg Capsule.) 20 mg PO BID@0630,1630 [facility] Last Admin: 06/13/25 05:56 Dose: 20 mg Documented By: LUIS Oxybutynin Chloride (Oxybutynin Chloride 5 Mg Tablet) 5 mg PO BID PRN PRN Reason: Bladder Spasms Oxycodone HCl (Oxycodone Hcl Immed Release 5 Mg Tablet) 5 mg PO Q4H PRN PRN Reason: Pain, Moderate(Pain Scale 4-6) Last Admin: 06/12/25 19:55 Dose: 5 mg Documented By: LUIS Polyethylene Glycol (Polyethylene Glycol 3350 17 Gm Powd.Pack) 17 gm PO DAILY PRN PRN Reason: Constipation Pregabalin (Pregabalin 150 Mg Capsule) 150 mg PO BID [facility] Last Admin: 06/13/25 08:01 Dose: 150 mg Documented By: JESS Sodium Chloride (0.9 % Sodium Chloride Flush 3 Ml Syringe) 3 ml IVFLUSH [facility] Last Admin: 06/13/25 08:01 Dose: 3 ml Documented By: JESS Labs 06/13/25 05:54 06/13/25 05:54 Labs: Laboratory Results - last 24 hr 06/12/25 06/12/25 06/12/25 10:50 15:59 19:17 MCV MCH MCHC RDW Plt Count MPV Immature Gran % (Auto) Neut % (Auto) Lymph % (Auto) [place] % (Auto) Eos % (Auto) Baso % (Auto) Lymph # (Auto) [place] # (Auto) Eos # (Auto) Baso # (Auto) Abs Immat Gran (auto) Absolute Neuts (auto) Absolute Nucleated RBC Nucleated RBC % (auto) Anion Gap Estim Creat Clear Calc Estimated GFR POC Glucose 138 H 159 H 160 H Fasting Glucose Calcium Total Bilirubin AST ALT Alkaline Phosphatase Total Protein Albumin 06/13/25 06/13/25 05:54 07:26 MCV 91.9 MCH 30.6 MCHC 33.3 RDW 14.5 Plt Count 116 L MPV 12.2 Immature Gran % (Auto) 1.7 H Neut % (Auto) 61.5 Lymph % (Auto) 23.5 [place] % (Auto) 11.0 Eos % (Auto) 1.9 Baso % (Auto) 0.4 Lymph # (Auto) 1.8 [place] # (Auto) 0.9 Eos # (Auto) 0.2 Baso # (Auto) 0.0 Abs Immat Gran (auto) 0.13 H Absolute Neuts (auto) 4.8 Absolute Nucleated RBC 0.000 Nucleated RBC % (auto) 0.0 Anion Gap 11 L Estim Creat Clear Calc 33.0 Estimated GFR 32 POC Glucose 130 H Fasting Glucose 108 H Calcium 9.1 Total Bilirubin 0.4 AST 14 ALT < 6 Alkaline Phosphatase 45 Total Protein 5.5 L Albumin 3.5 Microbiology Microbiology Results: Microbiology 06/10/25 Unknown Urine Culture - Final Urine clean catch - Clean Catch Midstream Pseudomonas aeruginosa 06/11/25 00:47 Blood Culture - Preliminary Blood - Venous No growth after 48 hours. 06/11/25 00:27 Blood Culture - Preliminary Blood - Venous No growth after 48 hours. Assessment and Plan (1) Periprosthetic fracture around internal prosthetic hip joint: Status: Acute (2) Recurrent UTI: Status: Acute (3) Neurogenic urinary bladder disorder: Status: Acute (4) Diabetes: Status: Acute (5) PAF (paroxysmal atrial fibrillation): Status: Acute Plan Gissel Ortiz is a 79 y/o woman with a PMHx significant for left hip multiple orthopedic surgeries and recurrent UTI due to Pseudomonas, E.coli, Klebsiella pneumoniae and other organisms (colonized with Pseudomonas and stenotrophomonas) who presents with: Left greater trochanteric periprosthetic fracture, closed. pain control adequate ortho recommends PT and follow up with orthopedist at [facility] PT recommends acute rehab. . . Awaiting authorization Catheter-associated UTI/suprapubic due to neurogenic bladder associated microscopic hematuria continue meropenem started 06/11, culture = pseudomonas A. sentitive to cipro Type 2 diabetes mellitus. Acceptable control on current therapies SSI, diabetic diet Paroxysmal atrial fibrillation, not on AC, in sinus, CKD 3, stable CLL. Imbruvica. Code status: Full DVT prophylaxis: Lovenox Patient requires ongoing hospitalization secondary to the need for acute rehab placement Quality Stroke Does the patient have a stroke diagnosis?: No VTE Prior VTE?: No VTE Risk Level:: Medical - moderate - high VTE Device Contraindication: N/A - Device Ordered VTE Drug Contraindication: N/A - Med Ordered
[2025-06-13 11:37] LABS: Glucose, Whole Blood 142 mg/dL (60-115)
[2025-06-13] MEDS: Ferrous Sulfate 324 MG TABLET.DR PO (11:39)
[2025-06-13 15:13] VITALS: BP 156/68; PULSE 65; RESP 18; TEMP 36.3; O2SAT 90
[2025-06-13 16:00] LABS: Glucose, Whole Blood 134 mg/dL (60-115)
[2025-06-13 19:36] VITALS: BP 181/74; PULSE 66; RESP 18; TEMP 36.1; O2SAT 93
[2025-06-13 19:48] LABS: Glucose, Whole Blood 138 mg/dL (60-115)
[2025-06-13] MEDS: oxyCODONE HCl Immed Release 5 MG TABLET PO (20:33)
[2025-06-14 03:59] VITALS: BP 145/70; PULSE 61; RESP 18; TEMP 36.3; O2SAT 93
[2025-06-14 07:10] VITALS: BP 158/60; PULSE 62; RESP 16; TEMP 36.9; O2SAT 92
[2025-06-14 07:21] LABS: Glucose, Whole Blood 117 mg/dL (60-115)
[2025-06-14] MEDS: Ferrous Sulfate 324 MG TABLET.DR PO (08:35)
[2025-06-14] MEDS: Aspirin Enteric Coated 81 MG TABLET.DR PO (08:35)
[2025-06-14] MEDS: 0.9 % Sodium Chloride Flush 3 ML SYRINGE IVFLUSH ×2 (08:36→16:02)
--- NOTE | 2025-06-14 09:13 | HO.PM.IMPN ---
Subjective Subjective Date of Service: 06/14/25 Interval History: feel congested, some cough no sob pain is controlled Physical Exam Vital Signs: Vital Signs: Last Vital Signs Temp 98.4 F 06/14/25 07:10 Pulse 62 06/14/25 07:10 Resp 16 06/14/25 07:10 BP 158/60 H 06/14/25 07:10 Pulse Ox 92 06/14/25 07:10 O2 Del Method Room Air 06/14/25 07:10 BMI result Body Mass Index 36.4 Objective Data Active Medications Acetaminophen (Acetaminophen 325 Mg Tablet) 650 mg PO Q6H PRN PRN Reason: Pain, Mild (Pain Scale 1-3) Amlodipine Besylate (Amlodipine Besylate 10 Mg Tablet) 10 mg PO DAILY [facility]; Protocol Last Admin: 06/14/25 08:36 Dose: 10 mg Documented By: HECTOR Ascorbic Acid (Ascorbic Acid 500 Mg Tablet) 1,000 mg PO DAILY [facility] Last Admin: 06/14/25 08:35 Dose: 1,000 mg Documented By: HECTOR Aspirin (Aspirin Enteric Coated 81 Mg Tablet.) 81 mg PO DAILY [facility] Last Admin: 06/14/25 08:35 Dose: 81 mg Documented By: HECTOR Atorvastatin Calcium (Atorvastatin Calcium 80 Mg Tablet) 80 mg PO BEDTIME [facility] Last Admin: 06/13/25 20:33 Dose: 80 mg Documented By: LIANNA Calcium Carbonate (Calcium Carbonate 750 Mg Tab.Chew) 750 mg PO Q4H PRN PRN Reason: Heartburn Carvedilol (Carvedilol 25 Mg Tablet) 25 mg PO BID [facility]; Protocol Last Admin: 06/14/25 08:35 Dose: 25 mg Documented By: HECTOR Dextrose (Dextrose 50 % 25 Gm/50 Ml Syringe) 25 gm IVPUSH Q15M PRN; Protocol PRN Reason: per Hypoglycemia Standing Ord. Duloxetine HCl (Duloxetine Hcl 60 Mg Capsule.) 60 mg PO DAILY [facility] Last Admin: 06/14/25 08:35 Dose: 60 mg Documented By: HECTOR Enoxaparin Sodium (Enoxaparin Sodium 40 Mg/0.4 Ml Syringe) 40 mg SUBCUT Q24H [facility] Last Admin: 06/14/25 08:38 Dose: 40 mg Documented By: HECTOR Escitalopram Oxalate (Escitalopram Oxalate 10 Mg Tablet) 10 mg PO DAILY [facility] Last Admin: 06/14/25 08:36 Dose: 10 mg Documented By: HECTOR Famotidine (Famotidine 20 Mg Tablet) 40 mg PO Q48H [facility] Last Admin: 06/13/25 20:32 Dose: 40 mg Documented By: LIANNA Ferrous Sulfate (Ferrous Sulfate 324 Mg Tablet.) 324 mg PO DAILY [facility] Last Admin: 06/14/25 08:35 Dose: 324 mg Documented By: HECTOR Furosemide (Furosemide 40 Mg Tablet) 40 mg PO DAILY PRN; Protocol PRN Reason: Edema Glucose (Glucose Gel 15 Gm Gel..Gram.) 15 gm PO Q15M PRN; Protocol PRN Reason: per Hypoglycemia Standing Ord. Hydromorphone HCl (Hydromorphone Hcl 1 Mg/Ml Syringe) 0.5 mg IVPUSH Q4H PRN; Protocol PRN Reason: Pain, Severe (Pain Scale 7-10) Insulin Human Lispro (Insulin Lispro 100 Unit/Ml 3 Ml Vial) 0 unit SUBCUT QIDACHS [facility]; Protocol Last Admin: 06/14/25 07:26 Dose: Not Given Documented By: HECTOR Non-Admin Reason: No Insulin Coverage Magnesium Hydroxide (Milk Of Magnesia 30 Ml Oral.Susp) 30 ml PO DAILY PRN PRN Reason: Constipation Melatonin (Melatonin 3 Mg Tablet) 6 mg PO BEDTIME PRN PRN Reason: Insomnia Meropenem (Meropenem 1 Gm Vial) 1 gm IVPUSH Q12H [facility] Last Admin: 06/14/25 08:35 Dose: 1 gm Documented By: HECTOR Metformin HCl (Metformin Hcl 500 Mg Tablet) 500 mg PO BID [facility] Last Admin: 06/14/25 08:35 Dose: 500 mg Documented By: HECTOR Multivitamins/Vitamin C (Multivitamin Tablet) 1 tab PO DAILY [facility] Last Admin: 06/14/25 08:35 Dose: 1 tab Documented By: HECTOR Non-Formulary Medication (Ibrutinib [Imbruvica]) 420 mg PO DAILY [facility] Omeprazole (Omeprazole 20 Mg Capsule.) 20 mg PO BID@0630,1630 [facility] Last Admin: 06/14/25 05:33 Dose: 20 mg Documented By: GIANLUCA Oxybutynin Chloride (Oxybutynin Chloride 5 Mg Tablet) 5 mg PO BID PRN PRN Reason: Bladder Spasms Oxycodone HCl (Oxycodone Hcl Immed Release 5 Mg Tablet) 5 mg PO Q4H PRN PRN Reason: Pain, Moderate(Pain Scale 4-6) Last Admin: 06/13/25 20:33 Dose: 5 mg Documented By: LIANNA Polyethylene Glycol (Polyethylene Glycol 3350 17 Gm Powd.Pack) 17 gm PO DAILY PRN PRN Reason: Constipation Pregabalin (Pregabalin 150 Mg Capsule) 150 mg PO BID [facility] Last Admin: 06/14/25 08:36 Dose: 150 mg Documented By: HECTOR Sodium Chloride (0.9 % Sodium Chloride Flush 3 Ml Syringe) 3 ml IVFLUSH QSHIFT [facility] Last Admin: 06/14/25 08:36 Dose: 3 ml Documented By: HECTOR Labs 06/13/25 05:54 06/13/25 05:54 Labs: Laboratory Results - last 24 hr 06/13/25 06/13/25 06/13/25 11:33 15:56 19:41 POC Glucose 142 H 134 H 138 H 06/14/25 07:15 POC Glucose 117 H Microbiology Microbiology Results: Microbiology 06/10/25 Unknown Urine Culture - Final Urine clean catch - Clean Catch Midstream Pseudomonas aeruginosa Assessment and Plan (1) Periprosthetic fracture around internal prosthetic hip joint: Status: Acute (2) Recurrent UTI: Status: Acute (3) Neurogenic urinary bladder disorder: Status: Acute (4) Diabetes: Status: Acute (5) PAF (paroxysmal atrial fibrillation): Status: Acute Plan Gissel Ortiz is a 79 y/o woman with a PMHx significant for left hip multiple orthopedic surgeries and recurrent UTI due to Pseudomonas, E.coli, Klebsiella pneumoniae and other organisms (colonized with Pseudomonas and stenotrophomonas) who presents with: Left greater trochanteric periprosthetic fracture, closed. pain control adequate ortho recommends PT and follow up with orthopedist at [facility] PT recommends acute rehab. . . Awaiting authorization Catheter-associated UTI/suprapubic due to neurogenic bladder associated microscopic hematuria continue meropenem started 06/11, culture = pseudomonas A. sentitive to cipro Type 2 diabetes mellitus. Acceptable control on current therapies SSI, diabetic diet Paroxysmal atrial fibrillation, not on AC, in sinus, Chest congestion CXR, mucinex, breathing treatment CKD 3, stable CLL. Imbruvica. Code status: Full DVT prophylaxis: Lovenox Patient requires ongoing hospitalization secondary to the need for acute rehab placement Quality Stroke Does the patient have a stroke diagnosis?: No VTE Prior VTE?: No VTE Risk Level:: Medical - moderate - high VTE Device Contraindication: N/A - Device Ordered VTE Drug Contraindication: N/A - Med Ordered
[2025-06-14] MEDS: guaiFENesin LA 600 MG TAB.ER.12H PO (10:14)
--- NOTE | 2025-06-14 10:20 | PM.DS ---
DS: Providers Provider Date of Service: 06/14/25 Date of admission: 06/11/25 00:42 Date of discharge: 06/14/25 Primary care physician: Unknown Physician Consults: 06/11/25 00:47 Consult to Orthopedics Routine Consulting Provider: [facility] Reason for consultation: Left greater intertrochanteric fracture Has provider been notified: Yes DS: Diagnosis Discharge Diagnosis (1) Periprosthetic fracture around internal prosthetic hip joint: Status: Acute (2) Recurrent UTI: Status: Acute (3) Neurogenic urinary bladder disorder: Status: Acute (4) Diabetes: Status: Acute (5) PAF (paroxysmal atrial fibrillation): Status: Acute DS: Summary Hospital Course Hospital Course: Admission hpi Chief Complaint: Fall, left hip pain Gissel Ortiz is a very pleasant 79 years old woman with past medical history significant for left hip multiple orthopedic surgeries, suprapubic catheter, hyperlipidemia, CKD, multiple UTIs, type 2 diabetes mellitus, COPD, essential hypertension, MILDRED on CPAP and leukemia was brought to the ED via EMS after she has sustained a fall after tripping with a rock. She landed on her left hip and also hit the back of her head. She denied any symptoms such as loss of consciousness, dizziness, chest pain or palpitations. She did report some shortness on breath which has been with for her COPD. She also reported some tenderness to the lower aspect of her abdomen. She denied tobacco smoking, alcohol abuse or illicit drug use. In the ED, she was found to have stable vital signs. Last blood pressure is 181/64. Blood workup showed no leukocytosis. Hemoglobin is 10.5 and platelet 121. INR is 1.0. There are no significant electrolyte imbalances. BUN is 28 and creatinine 1.67. Glucose is 219. LFTs are unremarkable. Head CT scan showed no acute intracranial, C-spine CT scan showed no acute process. Pelvic and hip x-ray showed left greater trochanter fracture. ECG showed normal sinus rhythm, heart rate 60 beats per minutes and occasional PVCs. Urinalysis consistent with UTI and microscopic hematuria. ED Tx: Acetaminophen 975 mg p.o., hydromorphone 0.5 mg IV and meropenem 1 g IV Hospital Course: The patient is a 79-year-old woman with a history of multiple left hip orthopedic surgeries and recurrent UTIs (colonized with Pseudomonas and Stenotrophomonas), who presented after a fall and was found to have a closed left greater trochanteric fracture without evidence of femoral stem loosening). Orthopedics evaluated and recommended conservative management with physical therapy and outpatient follow-up; no surgical intervention is planned at this time. weight-bearing status on the left to toe-touch weight-bearing with transfers. Pain has been well controlled.She was also found to have a catheter-associated UTI due to Pseudomonas (suprapubic catheter, neurogenic bladder) with associated microscopic hematuria. She was started on meropenem (06/11) and treated for 3 days. However, she is assymptomatic and Pseudomonas in her urine is colonization and therefore will not treat any further. Her hospital course was further complicated by chest congestion; infectious workup including CXR was negative for pneumonia, and she was managed symptomatically with Mucinex and breathing treatments as needed.Her type 2 diabetes mellitus was managed with her home regimen, and paroxysmal atrial fibrillation remained in sinus rhythm without anticoagulation. Physical therapy evaluated the patient and recommends acute rehabilitation for further functional improvement. Discharge Medications: home medications a Mucinex and inhaled bronchodilators as needed for chest congestion Discharge Condition: Stable, pain controlled, ambulating with assistance, no acute distress. Follow-Up: Outpatient orthopedics Primary care provider Acute rehabilitation facility Time Attestation Discharge Coordination Time (in mins): 45 Quality: Safe Use of Opioids Does Pt have an Active Cancer Diagnosis on the Problem List?: No Quality: Stroke Does the patient have a stroke diagnosis?: No Physical Exam Vital Signs: Vital Signs: Last Vital Signs Temp 98.4 F 06/14/25 07:10 Pulse 62 06/14/25 07:10 Resp 16 06/14/25 07:10 BP 158/60 H 06/14/25 07:10 Pulse Ox 92 06/14/25 07:10 O2 Del Method Room Air 06/14/25 07:10 BMI result Body Mass Index 36.4 DS: Data Data Completed and Pending Completed studies during hospitalization [Text1]: Procedures Change Drainage Device in Bladder, External Approach (01/06/23) Insertion of Infusion Device into Right Basilic Vein, Percutaneous Approach (10/30/22) Replacement of Left Hip Joint with Ceramic Synthetic Substitute, Uncemented, Open Approach (01/06/23) Transfusion of Nonautologous Red Blood Cells into Peripheral Vein, Percutaneous Approach (01/06/23) Labs on day of discharge: Laboratory Results - last 24 hr 06/13/25 06/13/25 06/13/25 11:33 15:56 19:41 POC Glucose 142 H 134 H 138 H 06/14/25 07:15 POC Glucose 117 H Preliminary micro results at discharge 06/11/25 00:47 Blood Culture - Preliminary Blood - Venous No growth after 48 hours. 06/11/25 00:27 Blood Culture - Preliminary Blood - Venous No growth after 48 hours. Discharge Plan Discharge Anticipated Discharge Date/Time: 06/14/25 15:38 Patient Disposition: Xfer SNF Discharge Diagnosis: Periprosthetic hip fracture, UTI Referrals: Physician,Unknown J [Primary Care Provider, Medical] - 1 Week Discharge Medications: New oxycodone 5 mg Tablet 5 mg PO Q4H PRN (Reason: Pain, Moderate(Pain Scale 4-6)) Qty: 20 0RF Rx Instructions: Partial Fill upon patient request. guaifenesin [Mucinex] 600 mg Tablet Extended Release 12hr 600 mg PO BID PRN (Reason: congestion) Qty: 14 0RF Continued (DME) walker Misc See Rx Instructions .ROUTE .MEDSUPPLY Qty: 1 0RF Rx Instructions: Folding front wheeled walker (DME) walker Misc See Rx Instructions .ROUTE .MEDSUPPLY Qty: 1 0RF Rx Instructions: Folding front wheeled walker esomeprazole magnesium 40 mg capsule,delayed release(DR/EC) 40 mg PO BID Qty: 180 1RF famotidine 40 mg tablet 40 mg PO BEDTIME Qty: 90 1RF (DME) bra, mastectomy Crystals Qty: 6 3RF Rx Instructions: As Directed (DME) bra, mastectomy Crystals Qty: 7 0RF Rx Instructions: As Directed oxybutynin chloride 5 mg tablet 5 mg PO BID PRN (Reason: Bladder Spasms) Qty: 60 4RF (DME) bra, mastectomy Crystals Qty: 3 3RF Rx Instructions: As Directed pregabalin 150 mg capsule 150 mg PO BID multivitamin Tablet 1 tab PO DAILY magnesium 250 mg Tablet 250 mg PO BEDTIME coenzyme Q10 [CoQ-10] 100 mg Capsule 100 mg PO BEDTIME acetaminophen 325 mg Tablet 650 mg PO Q6H PRN (Reason: Pain, Mild (Pain Scale 1-3)) 30 Days Qty: 240 0RF aspirin [Enteric Coated Aspirin] 81 mg tablet,delayed release (DR/EC) 81 mg PO DAILY ferrous sulfate [iron] 325 mg (65 mg iron) tablet 325 mg PO DAILY Imbruvica 420 mg tablet 420 mg PO DAILY polyethylene glycol 3350 [Miralax] 17 gram/dose powder 17 g PO DAILY PRN (Reason: Constipation) Rx Instructions: As directed by gastroenterology department at [facility] atorvastatin 80 mg tablet 80 mg PO BEDTIME ascorbic acid (vitamin C) 1,000 mg tablet 1,000 mg PO DAILY duloxetine 60 mg capsule,delayed release(DR/EC) 60 mg PO DAILY citalopram 20 mg tablet 20 mg PO DAILY metformin 1,000 mg tablet 1,000 mg PO BID carvedilol 25 mg tablet 25 mg PO BID amlodipine 10 mg tablet 10 mg PO DAILY (DME) Accu-Chek Guide test strips Strip See Rx Instructions .ROUTE DAILY Qty: 10 Rx Instructions: As directed (DME) lancets [FreeStyle Lancets] 28 gauge misc See Rx Instructions .ROUTE DAILY Qty: 100 Rx Instructions: As directed furosemide 20 mg tablet 40 mg PO DAILY PRN (Reason: Edema) Discharge Orders: Discharge Order (Routine); Ordered 06/14/25 Ordered By: Sha Reno Diet: Advance to usual diet Activity on Discharge: As tolerated Stand Alone Forms: Patient Portal Discharge page Print Language: French Care Plan Goals: recovery from uti and hip fracture weight-bearing status on the left to toe-touch weight-bearing with transfers. Health Concerns: greater trochanteric fracture Plan of Treatment: to short term rehab follow up with ortho on outpatient basis at [facility] [place] before august scheduled appointment, recommend 2 weeks Assessment: see above
[2025-06-14 10:43] LABS: Resp Syncy Virus RNA Qual PCR NEGATIVE (Negative); SARS COV2 PCR INHOUSE NEGATIVE (Negative)
[2025-06-14 11:12] LABS: Glucose, Whole Blood 118 mg/dL (60-115)
[2025-06-14] MEDS: Milk of Magnesia 30 ML ORAL.SUSP PO (13:50)
--- NOTE | 2025-06-14 14:05 | MHC.CM.PN ---
Patient medically cleared for dc. Accepted AR bed at [place]. BLS transport scheduled for 5pm. , RN, patient and aware.
[2025-06-14 15:27] VITALS: BP 136/62; PULSE 59; RESP 18; TEMP 36.7; O2SAT 93
[2025-06-14 16:24] LABS: Glucose, Whole Blood 125 mg/dL (60-115)
--- NOTE | 2025-06-14 17:19 | PC.NURSE ---
Nurse to Nurse attempted at [phone]. No answer.
[2025-06-14 17:41] VITALS: BP 145/68; PULSE 60; RESP 18; TEMP 36.9; O2SAT 93
[2025-06-14] MEDS: Heparin Sodium,Porcine Flush 500 UNIT/5 ML SYRINGE IVFLUSH (17:48)
== END 2025-06-14 18:01 | disposition skilled nursing facility (03) | DRG 536 ==
LOC: HO.ED 22:46 → HO.EDOVER 06-11 00:46 → HO.S3 06-11 10:07
PROVIDERS: Hospitalist; Admitting Provider Internal Medicine; Emergency Provider Emergency Medicine Emergency Medical Services; Visit Provider Internal Medicine
DX: S72.112A Displaced fracture of greater trochanter of left femur, initial encounter for closed fracture (principal); T83.518A Infection and inflammatory reaction due to other urinary catheter, initial encounter; N39.0 Urinary tract infection, site not specified; M97.02XA Periprosthetic fracture around internal prosthetic left hip joint, initial encounter; C91.10 Chronic lymphocytic leukemia of B-cell type not having achieved remission; W19.XXXA Unspecified fall, initial encounter; N18.32 Chronic kidney disease, stage 3b; J44.9 Chronic obstructive pulmonary disease, unspecified; N31.9 Neuromuscular dysfunction of bladder, unspecified; E11.22 Type 2 diabetes mellitus with diabetic chronic kidney disease; R31.29 Other microscopic hematuria; I25.10 Atherosclerotic heart disease of native coronary artery without angina pectoris; Z95.1 Presence of aortocoronary bypass graft; E11.40 Type 2 diabetes mellitus with diabetic neuropathy, unspecified; I48.0 Paroxysmal atrial fibrillation; E78.5 Hyperlipidemia, unspecified; G47.33 Obstructive sleep apnea (adult) (pediatric); D69.6 Thrombocytopenia, unspecified; I12.9 Hypertensive chronic kidney disease with stage 1 through stage 4 chronic kidney disease, or unspecified chronic kidney disease; B96.5 Pseudomonas (aeruginosa) (mallei) (pseudomallei) as the cause of diseases classified elsewhere; K21.9 Gastro-esophageal reflux disease without esophagitis; Z20.822 Contact with and (suspected) exposure to COVID-19; Z86.73 Personal history of transient ischemic attack (TIA), and cerebral infarction without residual deficits; Z87.440 Personal history of urinary (tract) infections; Z85.3 Personal history of malignant neoplasm of breast; Z79.82 Long term (current) use of aspirin; Z79.84 Long term (current) use of oral hypoglycemic drugs; Z79.899 Other long term (current) drug therapy
CPT/HCPCS: 36415; 70450; 71045; 72125; 73502; 80048; 80053; 81001; 82550; 82947; 83605; 85025; 85610; 87040; 87086; 87088; 87186; 87637; 93005; 97162; 97530; 99285; J1171; J1642; J1650; J2185

== ENCOUNTER → 2025-06-10 21:03 | Outpatient (BNV) | payer MEDICARE, OTHER, SELFPAY | PROVIDERS: Admitting Provider Internal Medicine; Emergency Provider Emergency Medicine Emergency Medical Services; Visit Provider Internal Medicine | DX: I49.3 Ventricular premature depolarization (principal); I51.7 Cardiomegaly | CPT/HCPCS: 93010 ==

== ENCOUNTER → 2025-06-10 21:45 | Outpatient (BNV) | payer MEDICARE, OTHER, SELFPAY | PROVIDERS: Emergency Provider Emergency Medicine Emergency Medical Services; Visit Provider Radiology Diagnostic Radiology | DX: Z04.3 Encounter for examination and observation following other accident (principal); S72.115A Nondisplaced fracture of greater trochanter of left femur, initial encounter for closed fracture; S09.90XA Unspecified injury of head, initial encounter; W01.0XXA Fall on same level from slipping, tripping and stumbling without subsequent striking against object, initial encounter | CPT/HCPCS: 70450; 72125; 73502 ==

== ENCOUNTER 2025-06-11 00:42 | Outpatient (BNV) | payer MEDICARE, OTHER, SELFPAY | END 2025-06-14 09:23 | PROVIDERS: Admitting Provider Internal Medicine; Emergency Provider Emergency Medicine Emergency Medical Services; Visit Provider Radiology Diagnostic Radiology | DX: J98.4 Other disorders of lung (principal); J98.6 Disorders of diaphragm | CPT/HCPCS: 71045 ==

== ENCOUNTER → 2025-06-11 00:42 | Outpatient (BNV) | payer MEDICARE, OTHER, SELFPAY | PROVIDERS: Admitting Provider Internal Medicine; Emergency Provider Emergency Medicine Emergency Medical Services; Visit Provider Physician Assistant | DX: S72.112A Displaced fracture of greater trochanter of left femur, initial encounter for closed fracture (principal); M97.8XXA Periprosthetic fracture around other internal prosthetic joint, initial encounter; Z96.649 Presence of unspecified artificial hip joint | CPT/HCPCS: 99222 ==

== ENCOUNTER → 2025-06-11 00:42 | Outpatient (BNV) | payer MEDICARE, OTHER, SELFPAY | PROVIDERS: Admitting Provider Internal Medicine; Emergency Provider Emergency Medicine Emergency Medical Services; Visit Provider Internal Medicine | DX: S72.002A Fracture of unspecified part of neck of left femur, initial encounter for closed fracture (principal); T83.510D Infection and inflammatory reaction due to cystostomy catheter, subsequent encounter; N39.0 Urinary tract infection, site not specified | CPT/HCPCS: 99223; 99232; 99239; 99499 ==

== ENCOUNTER → 2025-06-24 13:35 | Outpatient (BNVA) | payer MEDICARE, OTHER, SELFPAY | PROVIDERS: PCP Physician Assistant; Visit Provider Urology | DX: Z46.6 Encounter for fitting and adjustment of urinary device (principal); Z93.59 Other cystostomy status | CPT/HCPCS: 51705 ==

== ENCOUNTER 2025-07-06 10:58 | Outpatient (AMB) | payer MEDICARE, OTHER, SELFPAY ==
--- NOTE | 2025-07-06 10:15 | MHC.PC.OV ---
Vital Signs 07/06/25 11:07 Weight 88.451 kg BMI Reason not done Patient refused/unable BP 146/50 H Blood Pressure Location Lt brachial Position Sitting Respiration 18 Pulse 56 Pulse Source Pulse Oximeter Temp 98.1 F Temp Source Temporal Artery Scan Pulse Oximetry (%) 93 Oxygen Delivery Method Room Air Intake [place] [facility] [place] [facility]ing Patroller Required: No Allergies amoxicillin (AMOXICILLIN) Allergy (Severe, Verified 07/06/25 10:16) stroke, blood clots ciprofloxacin (From CIPRO) Allergy (Severe, Verified 07/06/25 10:16) ANAPHYLAXIS Iodinated Contrast Media (IV DYE, IODINE CONTAINING CONTRAST ) Allergy (Severe, Verified 07/06/25 10:16) HIVES levofloxacin Allergy (Severe, Verified 07/06/25 10:16) Anaphylaxis liraglutide Allergy (Severe, Verified 07/06/25 10:16) Headache Penicillins Allergy (Severe, Verified 07/06/25 10:16) stroke, blood clots FREYA Inhibitors Allergy (Intermediate, Verified 07/06/25 10:16) Cough ARB-Angiotensin Receptor Antagonist Allergy (Intermediate, Verified 07/06/25 10:16) Cough cefpodoxime Allergy (Intermediate, Verified 07/06/25 10:16) Dizziness, nausea doxazosin Allergy (Intermediate, Verified 07/06/25 10:16) Shortness of Breath fluticasone (Advair Diskus) Allergy (Intermediate, Verified 07/06/25 10:16) Anxiety gabapentin (From Neurontin) Allergy (Intermediate, Verified 07/06/25 10:16) Headache hydralazine Allergy (Intermediate, Verified 07/06/25 10:16) Shortness of Breath latex Allergy (Intermediate, Verified 07/06/25 10:16) Hives linezolid Allergy (Intermediate, Verified 07/06/25 10:16) Nausea and Vomiting meloxicam Allergy (Intermediate, Verified 07/06/25 10:16) Unknown salmeterol (Advair Diskus) Allergy (Intermediate, Verified 07/06/25 10:16) Anxiety Tetanus Vaccines and Toxoid Allergy (Intermediate, Verified 07/06/25 10:16) Swelling torsemide Allergy (Intermediate, Verified 07/06/25 10:16) Shortness of Breath cephalexin (Keflex) Allergy (Mild, Verified 07/06/25 10:16) Nausea Tobacco use date assessed: 04/15/25 HPI HPI Comments History of Present Illness Details 79-year-old female with history of CLL, CKD stage 3, hyperlipidemia, neurogenic urinary bladder disorder with recurrent UTI, history of Enterobacter 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 Diabetes: On metformin 1000mg twice daily. Last A1C at goal. She is due CV: Follows with Dr Agustin. GI: [place] [facility] [place] Urology: Follows with urology. Chronic Henao with history of Pseudomonas UTI Heme/Onc: Follows with Dr Worthy. CLL. MSK: s/p left hip knee replacement complicated by septic joint and bacteremia. Follows with [facility] infectious disease. Had been on Mirapex in but was discontinued in favor of Bactrim. However had adverse side effects with Bactrim and was taken off of all antibiotics. History of multiple surgeries of the left hip, follows with [facility] Orthopedics. Concerns: Admitted to [facility] medicine team from 06/11-06/14. She had sustained a mechanical fall while walking up a hill and tripping on a rock. Landed directly on the left hip and hit the back of her head. Denies any prodrome. Hematology studies have been unremarkable except for a chronic anemia and thrombocytopenia which were at baseline. Renal function was baseline. Head CT negative for any acute intracranial abnormality and CT of the cervical spine negative for an acute osseous abnormality. EKG NSR, rate 60 with occasional PVCs, no ST/T-wave abnormality. Urinalysis consistent with UTI and urine culture ultimately grew Pseudomonas. She was treated for 3 days with Mirapex item. However, given the absence of symptoms, thought to be colonization and antibiotic therapy was discontinued. She was evaluated by orthopedics recommending conservative management with physical therapy and she was discharged to acute rehab. She was advised to follow-up with her orthopedic team at [facility]. She has been wheelchair-bound, nonweightbearing status. Discharge with oxycodone She was also reporting chest congestion while in the hospital. Chest x-ray negative for pneumonia. He was discontinued with guaifenesin. She does continue to report dry cough with wheezing. No known history of chronic lung disease. No fevers or chills. Does report sore throat. Also continues with intertriginous rash of the groin and vulvar vaginal area. Previously has been prescribed nystatin cream and powder but reports the cream made her bleed and she has difficulty with the powder. This has been ongoing for months. Has also been using zinc oxide and A&D ointment. Does have diabetes but glucose levels have been well-controlled. of a rash. She has been on multiple antibiotics for the past few months due to infected right hip prosthetic. She was previously on Mirapex item followed by gentamicin. She was then transitioned to Bactrim about 1.5 weeks ago, dose was subsequently lowered due to worsening renal function. Due to the rash that developed in her groin she stopped taking this several days ago. She has been taking a probiotic. She is diabetic but her glucose levels have been well-controlled. The rash has been growing and is now affecting the vulva. There is occasional pruritus and bleeding she has been using A&D ointment as well as zinc oxide ROS: see hpi EXAM: Constitutional - Awake and Alert, No apparent distress Eyes - PERRL Cardiovascular - S1S2, RRR, No edema Respiratory - Normal lung expansion, Normal respiratory effort, No respiratory distress, CTA bilaterally Extremities - no calf tenderness bilaterally, no swelling Skin - Warm/Dry. Moist erythematous rash the intertriginous area of the groin extending into the outer labia Neurological - Alert & oriented x3 Psychological - Appropriate affect [facility] Medical History (Updated 07/06/25 @ 12:31 by MALISSA Bustillos) Type 2 diabetes mellitus with unspecified complications Diabetes PAF (paroxysmal atrial fibrillation) PAF (paroxysmal atrial fibrillation) Suprapubic catheter Neuropathy Osteoarthritis Morbid obesity Allergy to multiple antibiotics Depression Arthritis of left hip Wears dentures Neurogenic urinary bladder disorder History of blood transfusion History of CVA (cerebrovascular accident) Seasonal allergies PONV (postoperative nausea and vomiting) Diabetes with neurologic complications Anemia CLL (chronic lymphocytic leukemia) Sleep apnea Arthritis Fibromyalgia Hypercholesterolemia Hypertension History of bilateral breast cancer Urinary retention with incomplete bladder emptying Surgical History (Updated 06/22/25 @ 00:02 by Laura Diaz) History of cervical discectomy History of open heart surgery (~01/31/24) History of total left hip replacement S/P Botox injection History of suprapubic catheter S/P left breast biopsy History of esophagogastroduodenoscopy (EGD) Hx of colonoscopy (~09/04/21) History of bladder repair surgery History of total hysterectomy S/P breast biopsy, right History of back surgery History of biopsy of bladder Family History Mother Breast cancer Father Heart disease Father Lung cancer Mother Colon cancer Brother Pancreatic cancer Social History Household Members: Spouse Housing: House Housing Other:: has chair lift for second floor access Are you a primary neonatal critical care nurse to a significant other at home: No Do you presently have visiting nurse or other home services: No Alcohol intake: never Comment: patient refused telesiter,removed per pt request Patient Tobacco Use Status: Never used Tobacco e-Cigarette/Vaping Use: Never Used Advance Directives Date on File: 07/30/23 service: No Current occupational status: retired Female Reproductive History Menstrual Age of Menarche: 15 Questionnaire Thrive Questionnaire Date Thrive assessed: 06/11/25 Physical exam (Primary Care) Vital Signs: Last Vital Signs Temp 98.1 F 07/06/25 11:07 Pulse 56 07/06/25 11:07 Resp 18 07/06/25 11:07 BP 146/50 H 07/06/25 11:07 Pulse Ox 93 07/06/25 11:07 Oxygen Delivery Method Room Air 07/06/25 11:07 Tobacco/Smoking Status: Tobacco use Status Tobacco use date assessed 04/15/25 07/06/25 10:16 Patient Tobacco Use Status Never used Tobacco 07/06/25 10:16 e-Cigarette/Vaping Use Never Used 07/06/25 10:16 Thrive Assessment: Date of Thrive Assessment Date Thrive assessed 06/11/25 07/06/25 10:16 Coding Level of Care Code Est Pt Level 5 (11318) Complex EM visit Add On G2211 Diagnoses Hospital discharge follow-up Z09 Periprosthetic fracture around internal prosthetic hip joint M97.8XXA; Z96.649 Intertriginous candidiasis B37.2 Type 2 diabetes mellitus with unspecified complications E11.8 Recurrent UTI N39.0 Wheezing R06.2 Oral candidiasis B37.0 Assessment & Plan Assessment & Plan (1) Hospital discharge follow-up: Code(s): Z09 - Encounter for follow-up examination after completed treatment for conditions other than malignant neoplasm Plan: Hospital discharge medicines reviewed and reconciled. Reviewed discharge summary, H&P, hip/pelvis x-ray, Orthopedic consult note. Plan as below (2) Periprosthetic fracture around internal prosthetic hip joint: Code(s): M97.8XXA - Periprosthetic fracture around other internal prosthetic joint, initial encounter; Z96.649 - Presence of unspecified artificial hip joint Category: Medical Plan: Continue with nonweightbearing status as advised. Follow-up with Orthopedic surgery at [facility] as scheduled. Oxycodone only as needed for severe pain. Continue with physical therapy at home (3) Intertriginous candidiasis: Code(s): B37.2 - Candidiasis of skin and nail Category: Medical Plan: Refractory to multiple topical therapies. Renal adjusted fluconazole daily times 28 days. Baseline labs ordered. Check liver panel and BMP weekly (4) Type 2 diabetes mellitus with unspecified complications: Comment: type 2-glucose usually ~ 113 Code(s): E11.8 - Type 2 diabetes mellitus with unspecified complications Category: Medical Plan: Controlled. Continue current therapies and monitor glucose levels closely (5) Recurrent UTI: Code(s): N39.0 - Urinary tract infection, site not specified Category: Medical Plan: Follow-up with urology. Awaiting results of pending UA. History of recurrent pseudomonal infection, possibly consolidation. Follow-up with Infectious Disease (6) Wheezing: Code(s): R06.2 - Wheezing Category: Medical Plan: CXR ordered for further eval. Plan to be adjusted as appropriate (7) Oral candidiasis: Code(s): B37.0 - Candidal stomatitis Category: Medical Plan: See above Plan Follow-up in 1 month. Labs as ordered Orders: Orders NT Pro B Type Natriuretic Pept Today R06.2 - Wheezing Liver Panel 3 Weeks Z51.81 - Encounter for therapeutic drug level monitoring Basic Metabolic Panel 3 Weeks Z51.81 - Encounter for therapeutic drug level monitoring Basic Metabolic Panel 4 Weeks Z51.81 - Encounter for therapeutic drug level monitoring XR chest 2V Today J02.9 - Acute pharyngitis, unspecified, R05.9 - Cough, unspecified, R06.2 - Wheezing Basic Metabolic Panel Today J02.9 - Acute pharyngitis, unspecified, R05.9 - Cough, unspecified, R06.2 - Wheezing Liver Panel Today J02.9 - Acute pharyngitis, unspecified, R05.9 - Cough, unspecified, R06.2 - Wheezing Liver Panel 2 Weeks Z51.81 - Encounter for therapeutic drug level monitoring Liver Panel 4 Weeks Z51.81 - Encounter for therapeutic drug level monitoring Liver Panel 1 Week Z51.81 - Encounter for therapeutic drug level monitoring Basic Metabolic Panel 1 Week Z51.81 - Encounter for therapeutic drug level monitoring Basic Metabolic Panel 2 Weeks Z51.81 - Encounter for therapeutic drug level monitoring Referrals Infectious Disease Referral B37.2 - Candidiasis of skin and nail Medications: New fluconazole 150 mg PO DAILY 28 tabs 0RF fluconazole GFR 32 75 mg (1/2 x 150 mg) PO DAILY 14 tabs 0RF
[2025-07-06 11:07] VITALS: BP 146/50; PULSE 56; RESP 18; TEMP 36.7; O2SAT 93
== END 2025-07-06 11:44 | disposition home or self-care (01) ==
PROVIDERS: PCP Physician Assistant; Visit Provider Physician Assistant
DX: E11.8 Type 2 diabetes mellitus with unspecified complications (principal); Z09 Encounter for follow-up examination after completed treatment for conditions other than malignant neoplasm; M97.8XXA Periprosthetic fracture around other internal prosthetic joint, initial encounter; Z96.649 Presence of unspecified artificial hip joint; B37.2 Candidiasis of skin and nail; N39.0 Urinary tract infection, site not specified; R06.2 Wheezing; B37.0 Candidal stomatitis

== ENCOUNTER 2025-07-06 10:58 | Outpatient (REF) | payer MEDICARE, OTHER, SELFPAY ==
--- OUTSIDE RECORDS SUMMARY | 2024-02-05 09:15 | XMS_ITS ---
Author Organization [facility] Address [address] [place] [address] Care Team Providers Care Pipe Smoking Machine Operator Name Role Phone NelsonCristina edmondson Primary Care Provider Jeanette De Leon Unavailable [phone] Prosper Cantu Unavailable [phone] REASON FOR VISIT Painful nail(s) aggrevated by shoes and causing difficulty standing/walking. Medications Medication SIG (Take, Route, Frequency, Duration) Notes Start Date End Date Status Voltaren 1 % as directed Externally Active Encounters Encounter Location Date Provider Diagnosis [facility] [address] [place] [address] 02/05/2024 Prosper Cantu Type 2 diabetes mellitus [...] as necessary. Patient chooses, no pharmaceutical tx (69521) Keratoma Treatment Parring or Cutting o f Benign Hyperkeratotic Lesion(s) 33073 ( >4 Lesions) - The Benign hyperkeratotic lesions, as described above were pared, and/or cut utilizing a sterile #15 blade, tissue nippers, and/or dremel Progress Notes * Kaitlin BROWN MDOB:[birth year] (80 yo F)Acc No.[id number]:02/05/2024 Progress Note Patient: Kaitlin URIBE Provider: Parvin Henson DPM :1945 A ge:78 Y S ex:Female Date:02/05/2024 Address:[facility] [place] Pcp:Cristina Damon Subjective: * Chief Complaints: * [...] enies. C ardiovascular: Pacemaker d enies. M COP d enies. W PW d enies. C [...] as necessary. Patient chooses, no pharmaceutical tx (50002). K eratoma Treatment: Parring or Cutting of Benign Hyperkeratotic Lesion(s) 1 1057 ( >4 Lesions) - The Benign hyperkeratotic lesions, as described above were pared, and/or cut utilizing a sterile #15 blade, tissue nippers, and/or dremel. * Procedure Codes: 1 1721 DEBRIDE NAIL, 6 OR MORE, Modifiers: XS , 24884 TRIM SKIN LESIONS, OVER 4, Modifiers: XS * Follow Up: 3 Months * Images: * The named appointment provid er may or may not be the originator of this progress note, and it is not deemed complete until electronically signed by the appointment provider. Sign off status: Pending * Provider: Parvin Henson DPM Date: 0 02/05/2024 Generated for Jeny ball/Chance/Pallavi on: 03:27 PM EDT History and Physical Notes * HPI (History [...]
--- OUTSIDE RECORDS SUMMARY | 2024-10-15 10:45 | XMS_ITS ---
Author Organization [facility] Address [address] [place] [address] Care Team Providers Care Career Education Teacher Name Role Phone NelsonCristina edmondson Primary Care Provider Jeanette De Leon Unavailable [phone] Sylvia Nguyễn Unavailable [phone] Allergies Allergen (clinical drug ingredient) Drug/Non Drug [...] Active Encounters Encounter Location Date Provider Diagnosis [facility] [address] [address] 10/15/2024 Sylvia Nguyễn Plan Of Treatment No Information Progress Notes * Kaitlin BROWN MDOB:[birth year] (80 yo F)Acc No.[id number]:10/15/2024 Progress Note Patient: Miguel LAKSHMIROMA Kaitlin Cohen Provider: Sid Nguyễn DPM :1945 A ge:79 Y S ex:Female Date:10/15/2024 Address:[address] [place], [place] [id number] Pcp:Cristina Damon Subjective: * Chief Complaints: * [...] 0 10/15/2024 Generated for Jeny ball/Chance/Pallavi on: 03:27 PM EDT
--- OUTSIDE RECORDS SUMMARY | 2025-01-22 07:15 | XMS_ITS ---
Author Organization [facility] Address [address] [place] [address] Care Team Providers Care Crop Supervisor Name Role Phone Cristina Damon Primary Care Provider Jeanette De Leon [phone] Encounters Encounter Location Date Provider Diagnosis [facility] [address] [place] [address] 01/22/2025 Jeanette Messer Plan Of Treatment No Information Progress Notes * Kaitlin BROWN MDOB:[birth year] (80 yo F)Acc No.[id number]:01/22/2025 Progress Note Patient: Kaitlin URIBE Provider: Miguel Messer DPM :1945 A ge:79 Y S ex:Female Date:01/22/2025 Address:[facility] [address] [place] Pcp:Cristina Damon Subjective: * Chief Complaints: * * Medical History: Objective: * Vitals: Assessment: Plan: * Treatment: * Images: * The named appointment provid er may or may not be the originator of this progress note, and it is not deemed complete until electronically signed by the appointment provider. Sign off status: Pending * Provider: Miguel Messer DPM Date: 0 01/22/2025 Generated for Printi ng/Faxing/eTransmitting on: 03:28 PM EDT
--- OUTSIDE RECORDS SUMMARY | 2025-06-18 06:45 | XMS_ITS ---
Author Organization [facility] Address [address] [place] [address] Care Team Providers Care Decorator Store Name Role Phone NelsonCristina edmondson Primary Care Provider Jeanette De Leon Unavailable [phone] Jose Francisco Dietz Unavailable [phone] Medications Medication SIG (Take, Route, Frequency, Duration) [...] Active Encounters Encounter Location Date Provider Diagnosis [facility] [address] [place] [address] 06/18/2025 Jose Francisco Dietz Plan Of Treatment No Information Progress Notes * Kaitlin BROWN OB:[birth year] (80 yo F)Acc No.[id number]:06/18/2025 Progress Note Patient: Kaitlin URIBE Provider: Sid Dietz DPM :1945 A ge:79 Y S ex:Female Date:06/18/2025 Address:[address] [place] [address], [facility] Pcp:Cristina Damon Subjective: * Chief Complaints: * [...] DPM Date: Generated for Jeny ball/Chance/Pallavi on: 03:28 PM EDT
--- OUTSIDE RECORDS SUMMARY | 2025-06-18 07:15 | XMS_ITS ---
Author Organization [facility] Address [address] [place] [address] Care Team Providers Care Senior Pl Sql Developer Name Role Phone Cristina Damon Primary Care Provider Unavailabl Jeanette Weinberg Unavailable [phone] Bishnu Cervantes Unavailable [phone] Merino Encounters Encounter Location Date Provider Diagnosis [facility] [address] [place] [address] 06/18/2025 Bishnu Cervantes Plan Of Treatment No Information Progress Notes * Kaitlin BROWN MDOB:[birth year] (80 yo F)Acc No.[id number]:06/18/2025 Progress Note Patient: Kaitlin URIBE Provider: Kj Cervantes DPM :1945 A ge:79 Y S ex:Female Date:06/18/2025 Address:[facility] [address] [place] Pcp:Cristina Damon Subjective: * Chief Complaints: * [...] Kj Cervantes DPM Date: Generated for Printi ng/Faxing/eTransmitting on: 1 03:28 PM EDT
--- NOTE | ~2025-07-06 | XR_ITS ---
EXAMINATION: XR CHEST CLINICAL INFORMATION: R06.2 - Wheezing COMPARISON: Previous chest x-ray most recent June 14, 2025 TECHNIQUE: 2 views of the chest were obtained. FINDINGS: Right jugular port with tip projecting over the cavoatrial junction. Low lung volumes. Slight elevation of right hemidiaphragm. The lungs are clear. No consolidation or evidence of pulmonary edema. Stable enlargement of the cardiac silhouette. Post CABG changes. No pleural effusion or pneumothorax. Degenerative changes of the spine and shoulders. There may be a lower thoracic vertebral body compression fracture seen on the lateral view. Median sternotomy wires. Postsurgical changes to the cervical spine. XR/XR chest 2V IMPRESSION: No evidence for acute disease in the chest. Low lung volumes, slightly elevated right hemidiaphragm and enlarged cardiac silhouette similar to prior exams. Electronically signed by: Mady Ellis MD 07/06/2025 12:52 PM EDT
[2025-07-06 14:54] LABS: NT Pro B Type Natriuretic Pept 121.0 pg/mL (<300)
[2025-07-06 14:59] LABS: Alanine Aminotransferase 8 U/L (0-31); Albumin Level 3.6 g/dL (3.5-5.0); Alkaline Phosphatase 87 U/L (39-117); Anion Gap 12 (12-20); Aspartate Amino Transferase 15 U/L (5-31); Blood Urea Nitrogen 23 mg/dL (9-16); Calcium 9.4 mg/dL (8.4-10.2); Carbon Dioxide 31 mmol/L (22-29); Chloride 105 mmol/L (96-108); Estimated Glomerular Filt Rate 30; Potassium 5.0 mmol/L (3.3-5.1); Sodium 143 mmol/L (135-145); Total Protein 5.8 g/dL (6.5-8.0)
--- OUTSIDE RECORDS SUMMARY | 2025-07-06 15:27 | XMS_ITS | Encounter Summary ---
Author Organization [facility] Address [address] [place] [phone] Phone Care Team Providers Care Electrical And Radio Mock Up Mechanic Name Role Phone Kathy Connor Primary Care Provider [phone] Ricardo Breen MD Primary Care Provider [phone] Encounter Details Date Type Department Care Team (Late st Contact Info) Description 03/11/2018 Procedure Pass [facility], [address] [address] Social History Tobacco Use Types Packs/Day Years [...] on filedocumented in this encounter Care Teams Electrical And Radio Mock Up Mechanic Relationship Specialty Start Date End Date Kathy Connor PA [email or web address] PCP - General 03/11/18 04/07/18 Ricardo Breen MD [address] [place] [address] [address] [place], [place] [id number] PCP - General Internal Medicine 04/08/18 documented as of this encounter Additional Source Comments The information contained in this document represents components of the legal health record. It is not the complete legal health record.[facility]
--- OUTSIDE RECORDS SUMMARY | 2025-07-06 15:27 | XMS_ITS | Clinical Summary ---
Author Organization [facility] Address [address] [address] Care Team Providers Care Advisory Services Associate Name Role Phone Ricardo Breen MD Primary Care Provider [phone] Medications spironolactone (ALDACTONE) 25 MG tablet TAKE [...] age to complete this topic Care Teams Advisory Services Associate Relationship Specialty Start Date End Date Ricardo Breen MD [address] [place] [address] [address] [place], [place] PCP - General 09/19/20
--- OUTSIDE RECORDS SUMMARY | 2025-07-06 15:27 | XMS_ITS | Clinical Summary ---
Author Organization [facility] Address [address] [place] [address] Phone Care Team Providers Care Chargeback Specialist Name Role Phone Ricardo Breen MD [...] file Insurance MEDICARE PART A & B [facility] MEDICARE SUPPLEMENT MEDICARE PART A & B [facility] MEDICARE SUPPLEMENT MEDICARE PART A & B Member Subscriber Plan / Payer (Ef fective 2008-Present) Name:Jeri Brown Member ID:[id number] Relation to Subscriber:Self Name:Jeri Brown Subscriber ID:[id number] Payer ID:[id number] Group ID:Not on file Type:Medicare Address: [facility] [place] [id number] MEDICARE SUPPLEMENT MEDICARE PART A & B [facility] MEDICARE SUPPLEMENT MEDICARE PART A & B [facility] MEDICARE SUPPLEMENT MEDICARE PART A & B MEDICARE SUPPLEMENT MEDICARE PART A & B [facility] MEDICARE SUPPLEMENT MEDICARE PART A [place] [id number] [facility] MEDICARE SUPPLEMENT MEDICARE PART A & B [facility] MEDICARE SUPPLEMENT Care Teams Chargeback Specialist Relationship Specialty Start Date End Date Ricardo Breen MD [address] [place] [address] PCP - General Internal Medicine 04/08/18 Additional Source Comments The information contained in this document represents components of the legal health record. It is not the complete legal health record.[facility]
--- OUTSIDE RECORDS SUMMARY | 2025-07-06 15:27 | XMS_ITS | Encounter Summary ---
Author Organization [facility] Address [address] [place] [address] [place] [address] Phone Care Team Providers Care Electrotype Servicer Name Role Phone Kathy Connor Primary Care Provider [phone] Ellen Breen MD Primary Care Provider [phone] Reason for Referral * MRI/CAT Scan - Closed Specialty Diagnoses / Procedures Referred By Contiveth t Referred To Contact Radiology Diagnoses Cervical spinal stenosis Procedures MRI Cervical Spine Kathy Connor PA Phone: tel: fax: [email or web address] Referral ID Status Reason Start Date Expiration Date Visits Re quested Visits Authorized [id number] Closed 03/11/2018 03/11/2019 1 1 Encounter Details Date Type Department Care Team (Late st Contact Info) Description 03/11/2018 Ancillary Orders Virtual Department [address] [place] [address] Kathy Connor PA [address] [place] [phone] [email or web address] Cervical spinal stenosis Social History Tobacco Use [...] advanced degenerative changes as outlined. POS - [id number] Narrative 03/19/2018 4:08 PM EDT COMPARISON: 03/03/2015. [...] advanced degenerative changes as outlined. POS - [id number] Kathy LEONARDO IMG MR XSPECIALTY Final Res ult documented in this encounter Visit Diagnoses Diagnosis Cervical spinal stenosis Spinal stenosis in cervical region Cervical spinal stenosis Spinal stenosis in cervical region documented in this encounter Care Teams Electrotype Servicer Relationship Specialty Start Date End Date Kathy Connor PA [email or web address] PCP - General 03/11/18 04/07/18 Ellen Breen MD [address] [place] [address] [place] [id number] PCP - General Internal Medicine 04/08/18 documented as of this encounter Additional Source Comments The information contained in this document represents components of the legal health record. It is not the complete legal health record.[facility]
--- OUTSIDE RECORDS SUMMARY | 2025-07-06 15:27 | XMS_ITS | Encounter Summary ---
Author Organization [facility] Address [address] [place], [place] [id number] Phone Care Team Providers Care Developer Support Engineer Name Role Phone Ricardo Breen MD Primary Care Provider Encounter Details Date Type Department Care Team (Late st Contact Info) Description 04/08/2018 Ancillary Orders [facility], X-Ray - [address] [address] Brannon Perea MD [address] [place] [phone] [email or web address] Cervical spondylosis without myelopathy Social History Tobacco [...] 3 mm of retrolisthesis of C4 on [id number] does not change appreciably in flexion but [...] myelopathy documented in this encounter Care Teams Developer Support Engineer Relationship Specialty Start Date End Date Ricardo Breen MD [address] [place] [address] Dr [place], EB[place] [address] PCP - General Internal Medicine 04/08/18 documented as of this encounter Additional Source Comments The information contained in this document represents components of the legal health record. It is not the complete legal health record.[facility]
--- OUTSIDE RECORDS SUMMARY | 2025-07-06 15:28 | XMS_ITS | Encounter Summary ---
Author Organization [facility] Address [address] [place] [address] Phone Care Team Providers Care Watch Mechanic Name Role Phone Ricardo Breen MD Primary Care Provider Encounter Details Date Type Department Care Team (Late st Contact Info) Description 06/29/[address] [facility], [address] [address] Social History Tobacco Use Types Packs/Day Years [...] on filedocumented in this encounter Care Teams Watch Mechanic Relationship Specialty Start Date End Date Ricardo Breen MD [address] [place] [address] Dr CONNOR [address] [place] [id number] PCP - General Internal Medicine 04/08/18 documented as of this encounter Additional Source Comments The information contained in this document represents components of the legal health record. It is not the complete legal health record.[facility]
--- OUTSIDE RECORDS SUMMARY | 2025-07-06 15:28 | XMS_ITS | Clinical Summary ---
Author Organization [facility] Address [address] [place] [address] Care Team Providers Care Film Numberer Name Role Phone Ricardo Breen Primary Care Provider [phone] Allergies Active Allergy Reactions Criticality Noted Date Comments Adhesive Tape-Silicones Rash 01/21/2025 Amoxicillin Hemorrhagic stroke 09/13/2017 Celecoxib Hives 09/13/2017 Ciprofloxacin Anaphylaxis High 09/13/2017 Iodinated Contrast Media Hives 09/13/2017 Latex Rash 01/21/2025 Levofloxacin Nausea 01/21/2025 Morphine Nausea 01/21/2025 Penicillins Anaphylaxis High 09/13/2017 Medications amLODIPine (NORVASC) 10 mg tablet SMARTSI Tablet(s) By Mouth Daily 5 Active ascorbic acid, vitamin C, (VITAMIN C) 1,000 mg tablet SMARTSI Tablet(s) By Mouth Every Morning 5 Active atorvastatin (LIPITOR) 80 mg tablet SMARTSI Tablet(s) By Mouth Every Evening 5 Active Freestyle Lite test strips SMARTSI Strip(s) Via Meter Daily 4 Active FreeStyle Lite Meter meter SMARTSIG:Daily 4 Active carvediloL (COREG) 25 mg tablet SMARTSI Tablet(s) By Mouth Twice Daily 5 Active citalopram (CeleXA) 20 mg tablet SMARTSI Tablet(s) By Mouth Daily [address] (CYMBALTA) 60 mg capsule SMARTSI Capsule(s) Every Morning 5 Active famotidine (PEPCID) 40 mg tablet SMARTSI Tablet(s) By Mouth Every Night 5 Active Freestyle lancets 28 gauge SMARTSI Lancet(s) Topical Daily 4 Active metFORMIN (GLUCOPHAGE) 1,000 mg tablet SMARTSI Tablet(s) By Mouth Twice Daily 5 Active oxybutynin (DITROPAN) 5 mg tablet SMARTSI Tablet(s) By Mouth Twice Daily PRN 5 Active pregabalin (LYRICA) 150 mg capsule SMARTSI Capsule(s) By Mouth Twice Daily 5 Active spironolactone (ALDACTONE) 25 mg tablet SMARTSI Tablet(s) By Mouth Daily 5 Active polyethylene glycol 3350 (MIRALAX ORAL) Take by mouth. Active furosemide (LASIX) 40 mg tablet Take 40 mg by mouth once a day. As needed 4 Active omeprazole (PriLOSEC) 20 mg capsule Take 20 mg by mouth once a day. Active esomeprazole (NexIUM) 40 mg capsule Take 40 mg by mouth every morning before breakfast. 5 Active Laxative, bisacodyl, 5 mg EC tablet Take 5 mg by mouth daily as needed. 5 Active calcium carbonate (Super Calcium) 600 mg calcium (1,500 mg) tablet Take 600 mg by mouth once a day. Active apixaban (ELIQUIS) 2.5 mg tablet Take 1 tablet (2.5 mg total) by mouth every 12 hours. For 30 days 5 Active senna (SENOKOT) 8.6 mg tablet Take 2 tablets (17.2 mg total) by mouth nightly. 5 Active Additional Information Patient not taking.Reported on 06/28/2025 acetaminophen (TYLENOL) 325 mg tablet Take 2 tablets (650 mg total) by mouth every 6 hours. 5 Active aspirin 81 mg EC tablet Take 1 tablet (81 mg total) by mouth once a day. May resume when eliquis stopped 5 Active ibrutinib (IMBRUVICA) 140 mg capsule Take 3 capsules (420 mg total) by mouth once a day. May resume when family can provide to facility Active sodium chloride 0.9% injection Infuse 10 mL intravenously every 12 hours. And after every use Active sodium chloride 0.9% injection Infuse 10 mL intravenously once a day. Active Additional Information Patient not taking.Reported on 06/28/2025 0.9% NaCl parenteral solution 500 mL with vancomycin 5 gram recon soln 1,250 mg Infuse 1,250 mg intravenously every 24 hours. Anticipated 6 weeks. Goal trough 15-20. ID to determine final duration Active Additional Information Patient not taking.Reported on 06/28/2025 hydrocortisone (CORTEF) 5 mg tablet Take 5 mg by mouth once a day. Active lidocaine (LIDODERM) 5% patch Apply 1 patch topically to the affected area once a day. Remove and discard patch within 12 hours or as directed. Active multivitamin (THERAGRAN) tablet Take 1 tablet by mouth once a day. Active phenazopyridin e (PYRIDIUM) 200 mg tablet SMARTSI Tablet(s) By Mouth Every 8 Hours Active sulfamethoxazo le-trimethopri m (BACTRIM SS) 400-80 mg tabletIndicati ons:Suppressiv e therapy Take 1 tablet by mouth 2 times a day Indications: Suppressive therapy. 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 [address] [place] [address] Arlyn, MALISSA Carrion Left hip pain (Primary Dx) 06/04/2025 Orders Only 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 [address] [place] [address] Freight Associate: Adeola Ernandez NP 05/25/2025 Telephone [facility] [address] [place] [address] Freight Associate: Adeola Ernandez NP 04/27/2025 Telephone [facility] [place] [address] Freight Associate: Adeola Ernandez NP 04/20/2025 Telephone [facility] [address] [place] [address] Freight Associate: Edda Santos Telephone Intake, Staff PAC Patient Request Call Back 04/12/2025 1:30 PM EDT Follow-Up 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 [address] [place] [id number] Murali Hooker MD [address] [place] [id number] 08/09/2025 10:00 AM EST Follow-Up [facility] [address] [place] [phone] Murali Hooker MD [address] [place] [id number] Health Maintenance Due Date Last Done Comments [...] 2025 11/17/2021, 05/19/2021, 04/24/2021, Additional history exists Basic Metabolic Panel 10/01/2025 06/01/2025 , 05/05/2025, 04/23/2025, Additional history exists Social Drivers of Health Annual Screening 01/26/2026 01/26/2025 Hemoglobin 06/01/2026 06/01/2025, 04/10, 04/23/2025, Additional history exists Pneumococcal Vaccine: 50+ Years Completed 05/26/2016, 04/29/2014 Influenza Vaccine Completed 06/09/2025, , 06/09/2024, Additional history exists Hepatitis B Vaccines Aged Out No long er eligible based on patient's age to complete this topic Goals Goal Patient Goal Type Associated Problems Recent Progress Patient-Stated? Author Autogene gaby Goal Care Plan Autogenerated Problem No Rachel Villatoro Medical Devices Implanted Type Area Recruiting Assistant Device Identifier Shelf Expiration Date Model / Serial / Lot Cement Radiopaque Full Dose 40gr Simplex P - [id number] Implanted:Qty: 2 on 01/26/2025 by Murali Hooker MD at [facility] Implant Left: Hip JACLYN 07/09/2026 [id number] / / [id number] Insert Acetabular Eccentric 36mm 10 Degree Trident X3 - [id number] Implanted:Qty: 1 on 01/26/2025 by Murali Hooker MD at [facility] Implant Left: Hip JACLYN 04/15/2029 [id number] / / [id number] Head Femoral Anatomic V40 Vitallium Cocr Plus [id number] Lfit - [id number] Implanted:Qty: 1 on 01/26/2025 by Murali Hooker MD at [facility] Implant Left: Hip JACLYN 02/07/2028 [id number] / / [id number] Procedures * Due to [place] state law, this organization might not be sharing negative HIV tests. 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, initial encounter C-REACTIVE PROTEIN Routine 06/01/2025 1: 38 PM EDT 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, initial encounter COMPREHENSIVE METABOLIC PANEL Routine 05/05/2025 2:41 PM EDT 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, initial encounter Staphylococcal infection 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, subsequent encounter CBC AUTO DIFFERENTIAL Routine 05/05/2025 2:41 PM EDT 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, initial encounter Staphylococcal infection 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, subsequent encounter SEDIMENTATION RATE, AUTOMATED Routine 05/05/2025 2:41 PM EDT 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, initial encounter Staphylococcal infection 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, subsequent encounter C-REACTIVE PROTEIN Routine 05/05/2025 2: 41 PM EDT 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 There is new/increased lucency along the acetabular cement-bone interface, which could reflect loosening. No radiographic evidence of periprosthetic fracture. Moderate right hip osteoarthritis. Degenerative changes of the pubic symphysis. Osseous structures appear demineralized. The sacrum is obscured by overlying soft tissue structures. Foci of calcium hydroxyapatite project over the right greater trochanter. Vascular atherosclerotic calcifications. If this radiology report contains a blank impression section, it is an incomplete radiology report. Please contact the interpreting radiologist or applicable radiology division as soon as possible to obtain the completed interpretation. Workstation ID: [id number] Narrative 06/28/2025 11:03 AM EDT COMPARISON: 02/12/2025. FINDINGS AND Resulting Agency Comment [id number] Procedure Note Jose A Luong MD - 06/28/2025 COMPARISON: 02/12/2025. FINDINGS AND IMPRESSION: Prior revision left total hip arthroplasty with cemented radiolucentacetabular prosthetic component. There is new/increased lucency along theacetabular cement- bone interface, which could reflect loosening. Noradiographic evidence of periprosthetic fracture. Moderate right hip osteoarthritis. Degenerative changes of the pubicsymphysis. Osseous structures appear demineralized. The sacrum is obscuredby overlying soft tissue structures. Foci of calcium hydroxyapatiteproject over the right greater trochanter. Vascular atheroscleroticcalcifications. If this radiology report contains a blank impression section, it is anincomplete radiology report. Please contact the interpreting radiologistor applicable radiology division as soon as possible to obtain thecompleted interpretation. Workstation ID: [id number] us Murali Hooker MD IMG XR PROCEDURES Final Res ult * (ABNORMAL) CBC Auto Differential (06/01/2025 1:38 PM EDT) Only the most recent of3 resultswithin the time period is included. White Blood Cell Count 7.8 3.8 - 10.8 Thousand/ uL 06/02/2025 4:58 AM [email or web address] Red Blood Cell Count 3.71(L) 3.80 - 5.10 Million/u L 06/02/2025 4:58 AM [email or web address] Hemoglobin 11.2(L) 11.7 - 15.5 g/dL 06/02/2025 4:58 AM [email or web address] Hematocrit 35.9 35.0 - 45.0 % 06/02/2025 4:58 AM [email or web address] MCV 96.8 80.0 - 100.0 fL 06/02/2025 4:58 AM [email or web address] MCH 30.2 27.0 - 33.0 pg 06/02/2025 4:58 AM [email or web address] MCHC 31.2(L) 32.0 - 36.0 g/dL 06/02/2025 4:58 AM [email or web address] Comment: For adults, a slight decrease in the calculated MCHC value (in the range of 30 to 32 g/dL) is most likely not clinically significant; however, it should be interpreted with caution in correlation with other red cell parameters and the patient's clinical condition. RDW 14.3 11.0 - 15.0 % 06/02/2025 4:58 AM EDT [facility] Platelet Count 114(L) 140 - 400 Thousand/ uL 06/02/2025 4:58 AM EDT [facility] MPV 12.2 7.5 - 12.5 fL 06/02/2025 4:58 AM EDT [facility] Absolute Neutrophils 4,774 1,500 - 7,800 cells/uL 06/02/2025 4:58 AM EDT [facility] Absolute Lymphocytes 2,059 850 - 3,900 cells/uL 06/02/2025 4:58 AM EDT [facility] Absolute Monocytes 866 200 - 950 cells/uL 06/02/2025 4:58 AM EDT [facility] Absolute Eosinophils 62 15 - 500 cells/uL 06/02/2025 4:58 AM EDT [facility] Absolute Basophils 39 0 - 200 cells/uL 06/02/2025 4:58 AM EDT [facility] Neutrophils 61.2 % 06/02/2025 4:58 AM EDT [facility] Lymphocytes 26.4 % 06/02/2025 4:58 AM EDT [facility] Monocytes 11.1 % 06/02/2025 4:58 AM EDT [facility] Eosinophils 0.8 % 06/02/2025 4:58 AM EDT [facility] Basophils 0.5 % 06/02/2025 4:58 AM [facility] Blood Structure of peripheral vein / Unknown 06/01/2025 1:38 PM EDT 06/02/2025 3:22 AM EDT Narrative [facility] - 06/02/2025 5:42 AM EDT FASTING:NO us Adeola Miller NP LAB BLOOD ORDERABLES Final Res ult [facility] [address] [facility] [address], [place] [address], [facility] [address] [place] [address] * Sedimentation Rate (06/01/2025 1:38 PM EDT) Only the most recent of2 resultswithin the time period is included. Sed Rate By Modified Westergren 25 0 - 30 mm/h 06/02/2025 4:51 AM EDT [facility] Blood Structure of peripheral vein / Unknown 06/01/2025 1:38 PM EDT 06/02/2025 3:54 AM EDT Narrative [facility] - 06/02/2025 5:42 AM EDT FASTING:NO [facility] Paul ACADEMIC HOSPITALIST LAB BLOOD ORDERABLES Final Res ult Performing Organization Address [facility] Co de Phone Number [facility] [address] [place] [phone], [place] [phone] [facility] [address] [address] * C-Reactive Protein (06/01/2025 1:38 PM EDT) Only the most recent of2 resultswithin the time period is included. C-Reactive Protein 6.6 <8.0 mg/L 06/02/2025 4:10 AM EDT [facility] Blood Structure of peripheral vein / Unknown 06/01/2025 1:38 PM EDT 06/02/2025 2:42 AM EDT Narrative [facility] - 06/02/2025 5:42 AM EDT FASTING:NO [facility]ITAL[facility] LAB BLOOD ORDERABLES Final Res ult Performing Organization Address [facility]/ZIP Co de Phone Number [address], [place] [address], [place] [phone] [facility] [address] [address] * (ABNORMAL) Comprehensive Metabolic Panel (06/01/2025 1:38 PM EDT) Only the most recent of3 resultswithin the time period is included. Glucose 148(H) 65 - 139 mg/dL 06/02/2025 5:40 AM [facility] Comment: Non-fasting reference interval BUN 28(H) 7 - 25 mg/dL 06/02/2025 5:40 AM [facility] Creatinine 1.80(H) 0.60 - 1.00 mg/dL 06/02/2025 5:40 AM [facility] eGFR 28(L) > OR = 60 mL/min/1. 73m2 06/02/2025 5:40 AM [facility] Bun/Creatinine Ratio 16 6 - 22 (calc) 06/02/2025 5:40 AM [facility] Sodium 138 135 - 146 mmol/L 06/02/2025 5:40 AM [facility] Potassium 4.9 3.5 - 5.3 mmol/L 06/02/2025 5:40 AM [facility] Chloride 101 98 - 110 mmol/L 06/02/2025 5:40 AM [facility] Carbon Dioxide 28 20 - 32 mmol/L 06/02/2025 5:40 AM [facility] Calcium 9.4 8.6 - 10.4 mg/dL 06/02/2025 5:40 AM [facility] Protein, Total 5.9(L) 6.1 - 8.1 g/dL 06/02/2025 5:40 AM [facility] Albumin 4.0 3.6 - 5.1 g/dL 06/02/2025 5:40 AM [facility] Globulin 1.9 1.9 - 3.7 g/dL (calc) 06/02/2025 5:40 AM [facility] Albumin/Globuli n Ratio 2.1 1.0 - 2.5 (calc) 06/02/2025 5:40 AM [facility] Bilirubin, Total 0.5 0.2 - 1.2 mg/dL 06/02/2025 5:40 AM [facility] Alkaline Phosphatase 56 37 - 153 U/L 06/02/2025 5:40 AM [facility] AST 14 10 - 35 U/L 06/02/2025 5:40 AM [facility] ALT 11 6 - 29 U/L 06/02/2025 5:40 AM EDT [facility] Blood Structure of peripheral vein / Unknown 06/01/2025 1:38 PM EDT 06/02/2025 2:42 AM EDT Narrative [facility] - 06/02/2025 5:42 AM EDT FASTING:NO us Adeola Miller ACADEMIC HOSPITALIST LAB BLOOD ORDERABLES Final Res ult [facility] [address] [facility] [address], [place] [address], [place] [phone] [facility] [address] [place] [address] from Last 3 Months Additional Health Concerns Active Problems Noted Date Diagnosed Date Autogenerated Problem 01/20/2025 Insurance MEDICARE [facility] * Guarantor: KAITLIN BROWN Account Type Relation to Patient Date of Phone Billing Address Personal/Family MEDICARE [facility] SUPP Advance Directives * Full Code (Latest Code Status on File) Date Activated Date Inactivated Comments 01/26/2025 10:59 AM 02/05/2025 3:20 PM * Full Code Date Activated Date Inactivated Comments 01/26/2025 5:58 AM 01/26/2025 10:59 AM Care Teams Film Numberer Relationship Specialty Start Date End Date Ricardo Breen [address] [place] [address] [place] [address] PCP - General Internal Medicine 01/26/25
--- OUTSIDE RECORDS SUMMARY | 2025-07-06 15:28 | XMS_ITS | Patient Health Record ---
Author Organization [facility] Address [address] [place] [address] Care Team Providers Care Environmental Control Administrator Name Role Phone Cristina Damon Primary Care Provider UnavailJeanette Santoro Unavailable [phone] Bishnu Cervantes Unavailable [phone] Sylvia Nguyễn Unavailable [phone] Jose Francisco Dietz Unavailable Allergies Allergen (clinical drug ingredient) Drug/Non Drug [...] (HH) 6.8 HEMOGLOBIN A1C (GLYCOHEMOGLO BIN) Reviewed date:06/18/2025 09:41:35 AM Interpretation: Performing Lab: Notes/Report: HEMOGLOBIN A1C % (HH) 6.0 Reason For Referral No Information Medications Medication SIG (Take, Route, Frequency, Duration) Notes Start Date End Date Status Furosemide Active Extra Depth Orthopedic Shoes (1 Pair) with Customized Heat Molded Multidensity Innersoles (3 Pair) Dx: NIDDM/Polyneuropathy (E11.42), Hammertoe Foot Deformity (M20.41,M20.42), Preulcerative Skin Lesion(s) (L85.1); Duration: 365 days 03/23/2025 Active DULoxetine HCl 30 MG 1 capsule Orally On ce a day Active Vitamin D 1000 UNIT 1 tablet Orally Once a day Active Flexeril Active Victoza Not-Taking Carvedilol 25 MG Orally Act ricarda Spironolactone 25 MG 1 tablet with food Orally Once a day Active CeleXA 10 MG 1 tablet Orally Once a day Active Sulindac 150 MG 1 tablet with food Orally Twice a day Active Avinza Active Omeprazole 20 MG 1 capsule Orally Onc e a day Active Calcium Active Simvastatin 40 MG 1 tablet in the even ing Orally Once a day Active metFORMIN HCl Active Pregabalin 150 MG 1 capsule Orally Onc e a day Active Nifedical XL Active Imbruvica Active Lorazepam prn Active Immunizations Vaccine Route Administration Date Status Comme nts COVID-19 Moderna Vaccine Unknown 05/19/2021 Administered 1st 10/19/2020 2nd 11/24/2020 Influenza Unknown 05/12/2018 Administered Influenza Unknown 05/10/2021 Administered Influenza Unknown 06/09/2023 Administered Influenza Unknown 06/09/2024 Administered Social History Tobacco Use: Social History [...] Problem Acquired hammer toe of right foot (5309710307672999 ) Other hammer toe(s) (acquired), right foot (M20.41) Active confirmed Problem Acquired hammer toe of left foot (6311351075219103 ) Other hammer toe(s) (acquired), left foot (M20.42) Active confirmed Problem Polyneuropathy due to type 2 diabetes mellitus (844357435) Type 2 diabetes mellitus with diabetic polyneuropathy (E11.42) Active confirmed Vital Signs Blood pressure diastolic 60 mm Hg 03/23/2025 Height 5 ft 4 in in 03/23/2025 Blood pressure systolic 140 mm Hg 03/23/2025 Weight 195 lbs 03/23/2025 BMI 33.47 kg/m2 03/23/2025 Procedures Procedure Date Ordered Date Performed Result Body Sit e 06612-WJDJZBS NAIL, 6 OR MORE 07/16/2024 N/A 91831-WUZW SKIN LESIONS, 2 TO 4 07/16/2024 N/A 66064-KNDXAZU NAIL, 6 OR MORE 03/23/2025 N/A 29302-RXOE SKIN LESIONS, 2 TO 4 03/23/2025 N/A Encounters Encounter Location Date Provider Diagnosis [address] [address] 07/16/2024 Sylvia Nguyễn Type 2 diabetes mellitus with diabetic polyneuropathy E11.42 and Tinea unguium B35.[address] [address] 10/23/2024 Jeanette Messer Type 2 diabetes mellitus with diabetic polyneuropathy E11.42 ; 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 ; Tinea unguium B35.1 ; Pain in right ankle and joints of right foot M25.571 ; Other hammer toe(s) (acquired), right foot M20.41 ; Other hammer toe(s) (acquired), left foot M20.42 and Local edema R60.[address] [address] 03/23/2025 Bishnu Cervantes Type 2 diabetes mellitus with diabetic polyneuropathy E11.42 ; Tinea unguium B35.1 ; Other hammer toe(s) (acquired), right foot M20.41 and Other hammer toe(s) (acquired), left foot M20.[address] [address] 10/14/2024 Sylvia Nguyễn [address] [address] 10/28/2024 Jeanette Messer [address] [place] [address] 12/18/2024 Jeanette Messer [facility] [address] [address] 12/18/2024 Jeanette Chenga [facility] [place] [address] [place] [address] 03/23/2025 Jeanette Chenga [facility] [address] [address] 06/18/2025 Jeanette Messer [facility] Encounter Date Diagnosis (ICD Code) Assessment Notes [...] X ray : Foot, right 3V 10/23/2024 54973-NSXWMJH NAIL, 6 OR MORE 07/16/2024 58192-VTZBHFF NAIL, 6 OR MORE 03/23/2025 02169-ZHRJFZD NAIL, 1-5 05/05/2018 96159-GURSIWH NAIL, 1-5 07/21/2018 57991-TGMYWWT NAIL, 1-5 10/13/2018 35051, J0702- INJECT or DRAIN, JOINT/BUR SA 05/05/2018 94221-UGPN SKIN LESIONS, OVER 4 05/05/20 18 29902-HOVP SKIN LESIONS, OVER 4 07/21/20 18 02002-CZYI SKIN LESIONS, OVER 4 01/13/20 19 94056-EUYI SKIN LESIONS, OVER 4 04/13/20 19 85550-ZSAQ SKIN LESIONS, OVER 4 10/13/19 19 15336-EUSZ SKIN LESIONS, OVER 4 12/06/19 21 32589-CCQZ SKIN LESIONS, OVER 4 05/08/20 21 88534-XYDA SKIN LESIONS, OVER 4 10/18/19 22 28530-MBCW SKIN LESIONS, OVER 4 08/01/20 20 19441-NWHS SKIN LESIONS, OVER 4 03/30/20 20 21112-YTZA SKIN LESIONS, OVER 4 07/13/20 19 15482-SKBE SKIN LESIONS, OVER 4 10/12/19 20 53489-XYUQ SKIN LESIONS, 2 TO 4 07/16/20 24 41506-HRUJ SKIN LESIONS, 2 TO 4 02/20/20 18 56049-RQWN SKIN LESIONS, 2 TO 4 03/23/20 25 36233, D2358-TDHYE/INJECT, JOINT/BURSA 0 10/13/2018 L6755-GNTPIZFZ DYSTROPHIC NAILS ANY # E6558-GYQOFVLI DYSTROPHIC NAILS ANY # P3358-DYLXPCIZ DYSTROPHIC NAILS ANY # L0085-PEUZZBPD DYSTROPHIC NAILS ANY # B6725-ENNPMLSS DYSTROPHIC NAILS ANY # G2688-IIDLMBPN DYSTROPHIC NAILS ANY # Q0276-PJVQDUHM DYSTROPHIC NAILS ANY # M5253-TTRWXYPN DYSTROPHIC NAILS ANY # L8037-WZXKVNNZ DYSTROPHIC NAILS ANY # 41268- Nail Unit Biopsy 02/19/2018 Insurance Providers Payer Name Payer Address Payer Phone Subscriber Number Group Number Insured Name Patient Relationship to Insured Coverage Start Date Coverage End Date Medicare [employer] [address] [place] [address] [id number] Kaitlin Ortiz Self - patient is the insured [address] [place] [address] [address] [place] [address] [phone] [id number] Kaitlin Ortiz Self - patient is the [...]
--- OUTSIDE RECORDS SUMMARY | 2025-07-06 15:28 | XMS_ITS | Encounter Summary ---
Author Organization [facility] Address [address] [place] [address] Phone Care Team Providers Care Certified Ethical Hacker Name Role Phone Ricardo Breen MD Primary Care Provider Reason for Referral * MRI/CAT Scan - Closed Specialty Diagnoses / Procedures Referred By Yasir t Referred To Contact Radiology Diagnoses Post laminectomy syndrome Procedures MRI Lumbar Spine Rolando Tomas DO Phone: tel: fax: mailto:[email or web address] Referral ID Status Reason Start Date Expiration Date Visits Re quested Visits Authorized [id number] Closed 06/05/2022 06/05/2023 1 1 Encounter Details Date Type Department Care Team (Latest Contact Info) Description 06/05/2022 Transcribe Orders Virtual Department [address] [place] [address] Rolando Tomas DO [address] [place] [address] [email or web address] Post laminectomy syndrome (Primary Dx) Social History [...] region documented in this encounter Care Teams Certified Ethical Hacker Relationship Specialty Start Date End Date Ricardo Breen MD [address] [place] [address] [place], [place] [address] PCP - General Internal Medicine 04/08/18 documented as of this encounter Additional Source Comments The information contained in this document represents components of the legal health record. It is not the complete legal health record.[facility]
--- OUTSIDE RECORDS SUMMARY | 2025-07-06 15:28 | XMS_ITS | Continuity of Care Document ---
Author Organization [facility] [address] [facility] [place] [address] Phone [phone] Social History Type Date Description Comments Sex [...]
--- OUTSIDE RECORDS SUMMARY | 2025-07-06 15:28 | XMS_ITS | Encounter Summary ---
Author Organization [facility] Address [address] [place] [address] Care Team Providers Care Wood [employer] Products Factory Worker Name Role Phone Jamshid Ricardo Jayla Primary Care Provider [phone] Encounter Details Date Type Department Care Team (Late st Contact Info) Description 02/10/2025 Documentation [facility] Case Management Department [address] [place] [address] Rachel Anaya Social History Tobacco Use Types Packs/Day Years Used Date Smoking Tobacco: Never Smokeless Tobacco: Never Alcohol Use Standard Drinks/Week Comments Never 0 (1 standard drink = 0.6 oz pur e alcohol) [facility] Utilities Answer Date Recorded In [...] Info) Description 07/12/2025 9:15 AM EST Follow-Up [facility] [address] [place] [address] Murali Hooker MD [address] [place] [address] 08/09/2025 10:00 AM EST Follow-Up [facility] [address] [place] [address] Murali Hooker MD [address] [place] [address] documented as of this encounter Goals Goal Patient Goal Type Associated Problems Recent Progress Patient-Stated? Author Autogenera gaby Goal Care Plan Autogenerated Problem Rachel Hammonds documented as of this encounter Visit Diagnoses Not on filedocumented in this encounter Additional Health Concerns Active Problems Noted Date Diagnosed Date Autogenerated Problem 01/20/2025 documented as of this encounter Care Teams Wood [employer] Factory Worker Relationship Specialty Start Date End Date Ricardo Breen [address] [place] [address] [place] [address] PCP - General Internal Medicine 01/26/25 documented as of this encounter
--- OUTSIDE RECORDS SUMMARY | 2025-07-06 15:28 | XMS_ITS | Encounter Summary ---
Author Organization [facility] Address [address] [place] [address] [place] [address] Phone Care Team Providers Care Safety Administrator Name Role Phone Ricardo Breen MD Primary Care Provider [phone] Reason for Referral * MRI/CAT Scan - Closed Specialty Diagnoses / Procedures Referred By Yasir t Referred To Contact Radiology Diagnoses Lumbar radiculopathy Procedures MRI Lumbar Spine Rolando Tomas DO Phone: tel: fax: mailto:[email or web address] Referral ID Status Reason Start Date Expiration Date Visits Re quested Visits Authorized [id number] Closed 06/29/2021 06/29/2022 1 1 Encounter Details Date Type Department Care Team (Latest Contact Info) Description 06/29/2021 Ancillary Orders Virtual Department [address] [place] [address] Rolando Tomas DO [address] [place] [address] [email or web address] Lumbar radiculopathy Social History Tobacco Use Types [...] be performed for further evaluation. POS - [id number] Narrative 07/13/2021 8:26 AM EDT HISTORY: Chronic [...] could be performedfor further evaluation. POS - [id number] us Rolando Tomas DO IMG MR XSPECIALTY Final Resu lt documented in this encounter Visit Diagnoses Diagnosis Lumbar radiculopathy Thoracic or lumbosacral neuritis or radiculitis, unspecified Lumbar radiculopathy Thoracic or lumbosacral neuritis or radiculitis, unspecified documented in this encounter Care Teams Safety Administrator Relationship Specialty Start Date End Date Ricardo Breen MD [address] [place] [address] [place] [address] PCP - General Internal Medicine 04/08/18 documented as of this encounter Additional Source Comments The information contained in this document represents components of the legal health record. It is not the complete legal health record.[facility]
--- OUTSIDE RECORDS SUMMARY | 2025-07-06 15:28 | XMS_ITS | Encounter Summary ---
Author Organization [facility] Address [address] [place] [address] Phone Care Team Providers Care Diesel Instructor Name Role Phone Ricardo Breen MD Primary Care Provider Encounter Details Date Type Department Care Team (Late st Contact Info) Description 06/05/2022 Procedure Pass [facility], [address] [address] Social History Tobacco Use Types Packs/Day Years [...] on filedocumented in this encounter Care Teams Diesel Instructor Relationship Specialty Start Date End Date Ricardo Breen MD [address] [place] [address] Dr CONNOR [address] [place] [address] PCP - General Internal Medicine 04/08/18 documented as of this encounter Additional Source Comments The information contained in this document represents components of the legal health record. It is not the complete legal health record.[facility]
== END 2025-07-06 10:59 | disposition home or self-care (01) ==
LOC: HO.LAB 10:58
PROVIDERS: PCP Physician Assistant; Visit Provider Physician Assistant
DX: R06.2 Wheezing (principal); R05.9 Cough, unspecified; J02.9 Acute pharyngitis, unspecified; N18.30 Chronic kidney disease, stage 3 unspecified; E78.5 Hyperlipidemia, unspecified; E11.22 Type 2 diabetes mellitus with diabetic chronic kidney disease; B37.2 Candidiasis of skin and nail; N39.0 Urinary tract infection, site not specified; B37.0 Candidal stomatitis; Z09 Encounter for follow-up examination after completed treatment for conditions other than malignant neoplasm; Z79.84 Long term (current) use of oral hypoglycemic drugs; M97.8XXD Periprosthetic fracture around other internal prosthetic joint, subsequent encounter; Z96.649 Presence of unspecified artificial hip joint
CPT/HCPCS: 36415; 71046; 80048; 80076; 83880; 87086; 87088; 87186; 99212

== ENCOUNTER → 2025-07-06 12:26 | Outpatient (BNV) | payer MEDICARE, OTHER, SELFPAY | PROVIDERS: PCP Physician Assistant; Visit Provider Radiology Diagnostic Radiology | DX: J98.4 Other disorders of lung (principal); J98.6 Disorders of diaphragm; I51.7 Cardiomegaly | CPT/HCPCS: 71046 ==

== ENCOUNTER 2025-07-13 11:24 | Outpatient (AMB) | payer MEDICARE, OTHER, SELFPAY ==
--- OUTSIDE RECORDS SUMMARY | 2024-02-05 08:15 | XMS_ITS ---
Author Organization [facility] Address [address] [place] [address] Care Team Providers Care Bilingual Manager Name Role Phone NelsonCristina edmondson Primary Care Provider Jeanette De Leon Unavailable [phone] Prosper Cantu Unavailable [phone] REASON FOR VISIT Painful nail(s) aggrevated by shoes and causing difficulty standing/walking. Medications Medication SIG (Take, Route, Frequency, Duration) Notes Start Date End Date Status Voltaren 1 % as directed Externally Active Encounters Encounter Location Date Provider Diagnosis [facility] [address] [place] [address] 02/05/2024 Prosper Cantu Type 2 diabetes mellitus with diabetic polyneuropathy E11.42 ; Tinea unguium B35.1 ; Pain in left foot M79.672 ; Primary osteoarthritis, left ankle and foot M19.072 ; Pain in left toe(s) M79.675 ; Pain in right toe(s) M79.674 ; Hallux rigidus, left foot M20.22 ; Hallux valgus (acquired), left foot M20.12 and Localized edema R60.0 Assessments Encounter Date Diagnosis (ICD Code) Assessment Notes Treatment Notes Treatment Clinical Notes Section Notes 02/05/2024 Type 2 diabetes mellitus with diabetic polyneuropathy (ICD-10 - E11.42) 02/05/2024 Tinea unguium (ICD-10 - B35.1) 02/05/2024 Pain in left foot (ICD-10 - M79.672) 02/05/2024 Primary osteoarthritis, left ankle and foot (ICD-10 - M19.072) 02/05/2024 Pain in left toe(s) (ICD-10 - M79.675) 02/05/2024 Pain in right toe(s) (ICD-10 - M79.674) 02/05/2024 Hallux rigidus, left foot (ICD-10 - M20.22) 02/05/2024 Hallux valgus (acquired), left foot (ICD-10 - M20.12) 02/05/2024 Localized edema (ICD-10 - R60.0) Plan Of Treatment Medication Medication Name Sig Start Date Stop Date Notes Voltaren 1 % as directed Externally Next Appt Details Follow Up: 3 Months, Reason: Procedure Notes * Category Sub-Category Detail Notes Debride Nail 6-10 Nail debridement Nail debridem ent performed extensively to reduce/remove overall nail length and girth, subungual debris, and necrotic tissue, by manual and electrical means with use of a nail nipper and/or dremel, to more viable healthy nail plate or bed tissue 6-10. Silver nitrate used for any petechial bleeding as necessary. Patient chooses, no pharmaceutical tx (20388) Keratoma Treatment Parring or Cutting o f Benign Hyperkeratotic Lesion(s) 62603 ( >4 Lesions) - The Benign hyperkeratotic lesions, as described above were pared, and/or cut utilizing a sterile #15 blade, tissue nippers, and/or dremel Progress Notes * Kaitlin BROWN MDOB:[birth year] (80 yo F)Acc No.[id number]:02/05/2024 Progress Note Patient: Kaitlin URIBE Provider: Parvin Henson DPM :1945 A ge:78 Y S ex:Female Date:02/05/2024 Address:[facility] [address] [place] Pcp:Cristina Damon Subjective: * Chief Complaints: * 1 . Painful nail(s) aggrevated by shoes and causing difficulty standing/walking.. * HPI: P ainful Nails: Pt States Last PCP Visit: D ate: 0 04/09/2023 F oot Pain: Nature: b rusing , numbness. Location T op, Great toe joint, Right . Onset/Cause: u nknown, denies trauma. Aggrevated: a ny pressure, shoes. Treatments: U SE OF WALKER AND dm shoes. * ROS: G eneral/Constitutional: Nausea d enies. V omiting d enies. H cosme Thirst d enies. L oss appetite d enies. C hills d enies. F atigue d enies.?Fever d enies. N ight Sweats d enies. U nexplained weight loss d enies. U nexplained weight gain d enies. H EENTM: Dentures d enies. D izziness d enies. G lasses/contacts a dmits. R etinopathy d enies. B lurred/double vision d enies. T MJ?denies. D ischarge/drainage d enies. I mplants d enies. S ore throat d enies. D ental implants d enies. H corey of hearing d enies. D ifficulty chewing/swallowing/speaking d enies. N ose bleeds d enies. S ore mouth d enies. ? R espiratory: On Oxygen d enies. P neumonia/pleurisy d enies.?Bronchitis d enies. E mphysema d enies. C oughing d enies. C ough blood?denies. S hortness of breath d enies. W heezing d enies. C ardiovascular: Pacemaker d enies. M GUN MECHANIC d enies. W PW d enies. C HF d enies. H eart attack d enies. S eptal defect d enies. R apid beat d enies. C hest pain d enies. A trial Fib. d enies. M urmur/Palpitations d enies. G astrointestinal: Hemorrhoids d enies. S tomach/Abdominal pain d enies. D ark blood stool d enies. I rritable bowel d enies. C onstipation d enies. D iarrhea d enies. H ematology: Swelling a dmits. C lots d enies. V aricose Veins d enies. B ruising d enies. B leeding problem d enies. G enitourinary: Blood urine d enies. F requent/Painfu/urination/bladder control d enies. K idney stones d enies. I nfection (UTI) d enies. N ephropathy d enies. s ex trans dis (STD) d enies. P rostate d enies. M usculoskeletal: Hammertoes d enies. B unions d enies. B ack Pain d enies. M uscle Cramps/ Resting d enies. M uscle cramps / walking d enies.?Generalized aches and pains a dmits. W eakness d enies. I nteg.: Goldstein d enies. S cars d enies. C orns/calluses?denies. I ngrown nails d enies. P ainful nails d enies. O pen Sores d enies. R ashes d enies. N eurologic: Difficulty sleeping d enies. B rain disorder d enies. N umbness d enies. B alance trouble d enies. C onfusion d enies. F ainting/blackouts d enies. T ingling d enies. T remors d enies. * Medical History: Objective: * Vitals: * Examination: G eneral Examination: GENERAL APPEARANCE: p leasant, alert, well nourished, well developed, well hydrated, with good attention to hygene/body habitus, and in no acute distress. ORIENTED: p erson,place, and time. FOOT EXAM: L ower Extremity Neurological Exam performed:?Yes V isual exam of foot performed: Y es D ate 0 10/18/2021 S ensory testing performed: s ensations diminished P edal pulse taking performed: 1 + N eurological: SENSORY: N eurological exam demonstrates, 5.07 monofilament test performed at plantar aspects of 5 varied sites per foot shows sensation, reduced , B/L, Neurological exam demonstrates pop dorsum right first mtpj. TINEL'S COMPRESSION: N egative tarsal tunnel, estephanie pedis, and medial calcaneal nerves B/L. BABINSKI REFLEX: a bsent. N euroma Pain: PALPATION: N o interspace pain noted on palpation. ? N ails: NAILS are: E longated, overgrown, dystrophic, lytic, greater than 3mm thick, discolored and friable with crumbly malodorous subungual debris, with dull to no pain on palpation due to neuropathy, 1-5 Left foot, T5, T9. V ascular: DP PULSES (B): 1/4, B/L. PT PULSES (B): 1/4, B/L. CAPILLARY FILL TIME: 3 secs. per digit, B/L. EDEMA (C): 3/4, B/L, Ankle(s). TELANGECTASIA: a bsent. VARICOSITIES: a bsent. D ermatologic: SKIN FINDINGS: Skin exam reveals Keratotic lesion(s) located at, Plantar, Heel(s), B/L , Skin exam reveals Keratotic lesion(s) located at, Medial plantar, IPJ, TA, T5, SUB MTH (s), 1, B/L . O rthopedic: MUSCLE STRENGTH: 5 /5 all groups in a symmetrical fashion , B/L. GAIT ABNORMALITY: p ronated, abducted, B/L. BUNION: Medially prominent 1st MPJ, Dorsally prominent 1st MPJ, (+) Pain on palpation, LEFT, Lateral tracking 1st MPJ incompletely reducable. ? O phthalmology Referral: DIABETES EYE EXAM D iabetic Retinopathy Screening: Y es Assessment: * Assessment: 1. T ype 2 diabetes mellitus with diabetic polyneuropathy - E11.42 (Primary) 2 . T inea unguium - B35.1 3 . P ain in left foot - M79.672 4 . P rimary osteoarthritis, left ankle and foot - M19.072 5 . P ain in left toe(s) - M79.675 6 . P ain in right toe(s) - M79.674 7 . H allux rigidus, left foot - M20.22 8 . H allux valgus (acquired), left foot - M20.12 9 . L ocalized edema - R60.0 Plan: * Treatment: * Procedures: D ebride Nail 6-10: Nail debridement N ail debridement performed extensively to reduce/remove overall nail length and girth, subungual debris, and necrotic tissue, by manual and electrical means with use of a nail nipper and/or dremel, to more viable healthy nail plate or bed tissue 6-10. Silver nitrate used for any petechial bleeding as necessary. Patient chooses, no pharmaceutical tx (00157). K eratoma Treatment: Parring or Cutting of Benign Hyperkeratotic Lesion(s) 1 1057 ( >4 Lesions) - The Benign hyperkeratotic lesions, as described above were pared, and/or cut utilizing a sterile #15 blade, tissue nippers, and/or dremel. * Procedure Codes: 1 1721 DEBRIDE NAIL, 6 OR MORE, Modifiers: XS , 36025 TRIM SKIN LESIONS, OVER 4, Modifiers: XS * Follow Up: 3 Months * Images: * The named appointment provid er may or may not be the originator of this progress note, and it is not deemed complete until electronically signed by the appointment provider. Sign off status: Pending * Provider: Parvin Henosn DPM Date: 0 02/05/2024 Generated for Jeny ball/Chance/Pallavi on: 09/12/2024 02:01 PM EST History and Physical Notes * HPI (History of Present Illness) Category Sub-Category Detail Notes Category Not es Painful Nails Pt States Last PCP Visit: Date:: 04/09/2023 Foot Pain Aggrevated: any pressure, shoes Onset/Cause: unknown, denies thierry charles Nature: brusing , numbness Treatments: USE OF WALKER AND dm shoes Location Top, Great toe joint , Right Examination Category Sub-Category Detail Notes Category Not es Neuroma Pain PALPATION: No interspace pain noted on palpation Neurological SENSORY: Neurological exa m demonstrates, 5.07 monofilament test performed at plantar aspects of 5 varied sites per foot shows sensation, reduced , B/L, Neurological exam demonstrates pop dorsum right first mtpj BABINSKI REFLEX: absent TINEL'S COMPRESSION: Negative tarsal genevieve shahla, estephanie pedis, and medial calcaneal nerves B/L Dermatologic SKIN FINDINGS: Skin exam reveal s Keratotic lesion(s) located at, Plantar, Heel(s), B/L , Skin exam reveals Keratotic lesion(s) located at, Medial plantar, IPJ, TA, T5, SUB MTH (s), 1, B/L Orthopedic GAIT ABNORMALITY: pronated, abducted, B/L BUNION: Medially prominent 1 st MPJ, Dorsally prominent 1st MPJ , (+) Pain on palpation, LEFT, Lateral tracking 1st MPJ incompletely reducable MUSCLE STRENGTH: 5/5 all groups in a symmetrical fashion , B/L General Examination GENERAL APPEARANCE: pleasant , alert, well nourished, well developed, well hydrated, with good attention to hygene/body habitus, and in no acute distress FOOT EXAM: Lower Extremity Neurological Exa m performed:: Yes Visual exam of foot performed:: Yes Date: 10/18/2021 Sensory testing performed:: sensations d iminished Pedal pulse taking performed:: 1+ ORIENTED: person,place, and ti me Ophthalmology Referral DIABETES EYE EXAM Diabetic Retinopa thy Screening:: Yes Vascular DP PULSES (B): 1/4, B/L PT PULSES (B): 1/4, B/L CAPILLARY FILL TIME: 3 secs. per digit, B/L EDEMA (C): 3/4, B/L, Ankle(s) TELANGECTASIA: absent VARICOSITIES: absent Nails NAILS are: Elongated, overg rown, dystrophic, lytic, greater than 3mm thick, discolored and friable with crumbly malodorous subungual debris, with dull to no pain on palpation due to neuropathy, 1-5 Left foot, T5, T9
--- OUTSIDE RECORDS SUMMARY | 2024-10-15 09:45 | XMS_ITS ---
Author Organization [facility] Address [address] [place] [address] Care Team Providers Care Medical Records Supervisor Name Role Phone NelsonCristina edmondson Primary Care Provider Jeanette De Leon Unavailable [phone] Sylvia Nguyễn Unavailable [phone] Allergies Allergen (clinical drug ingredient) Drug/Non Drug [...] SOB Drug Allergy Active REASON FOR VISIT Dr Merino Medications Medication SIG (Take, Route, Frequency, Duration) [...] innersoles for 1 year Dx: 12/05/2020 Active Spironolactone 25 MG 1 tablet with food Orally Once a day Active Simvastatin 40 MG 1 tablet in the even ing Orally Once a day Active Extra Depth Diabetic Shoes with 3 Pair Custom heat-molded multi-density innersoles for 1 year Dx: 04/23/2022 Active Sulindac 150 MG 1 tablet with food Orally Twice a day Active Vitamin D 1000 UNIT 1 tablet Orally Once a day Active Omeprazole 20 MG 1 capsule Orally Onc e a day Active metFORMIN HCl Active Nifedical XL Active Imbruvica Active Lorazepam prn Active Carvedilol 25 MG Orally Act ricarda CeleXA 10 MG 1 tablet Orally Once a day Active Flexeril Active Furosemide Active DULoxetine HCl 30 MG 1 capsule Orally On ce a day Active Avinza Active Calcium Active Pregabalin 150 MG 1 capsule Orally Onc e a day Active Encounters Encounter Location Date Provider Diagnosis [facility] [address] [address] 10/15/2024 Sylvia Nguyễn Plan Of Treatment No Information Progress Notes * Kaitlin BROWN MDOB:[birth year] (80 yo F)Acc No.[id number]:10/15/2024 Progress Note Patient: Miguel LAKSHMIROMA Kaitlin Cohen Provider: Sid Nguyễn DPM :1945 A ge:79 Y S ex:Female Date:10/15/2024 Address:[address] [place], [place] [id number] Pcp:Cristina Damon Subjective: * Chief Complaints: * [address] Merino. * Medical History: A rthritis, Asthma, Back,Hip,and Knee pain, Diverticulosis, Fibromyalgia, Hepatitis, Hiatal hernia, High blood pressure, Numbness, Neuropathy, Reflux ( GERD), Sciatica, Stroke, Measles, Mumps, Chicken pox, Transfusions, Chronic Lymphocytic Leukemia, type II diabetes. * Medications: T aking Pregabalin 150 MG Capsule 1 capsule Orally Once a day , Taking Avinza , Taking Calcium , Taking Carvedilol 25 MG Tablet Orally , Taking CeleXA 10 MG Tablet 1 tablet Orally Once a day , Taking DULoxetine HCl 30 MG Capsule Delayed Release Particles 1 capsule Orally Once a day , Taking Flexeril , Taking Furosemide , Taking Imbruvica , Taking Lorazepam prn , Taking metFORMIN HCl , Taking Nifedical XL , Taking Omeprazole 20 MG Capsule Delayed Release 1 capsule Orally Once a day , Taking Simvastatin 40 MG Tablet 1 tablet in the evening Orally Once a day , Taking Spironolactone 25 MG Tablet 1 tablet with food Orally Once a day , Taking Sulindac 150 MG Tablet 1 tablet with food Orally Twice a day , Taking Vitamin D 1000 UNIT Tablet 1 tablet Orally Once a day , Taking Extra Depth Diabetic Shoes with 3 Pair Custom heat-molded multi- density innersoles for 1 year Dx: , Taking Extra Depth Diabetic Shoes with 3 Pair Custom heat-molded multi-density innersoles for 1 year Dx: , Taking Voltaren 1 % Gel as directed Externally , Not-Taking/PRN Victoza , Not-Taking/PRN Extra Depth Orthopedic Shoes (1 Pair) with Customized Heat Molded Multidensity Innersoles (3 Pair) as directed Dx: NIDDM/Polyneuropathy (E11.42), Hammertoe Foot Deformity (M20.41,M20.42), Preulcerative Skin Lesion(s) (L85.1 , Not-Taking/PRN Extra Depth Diabetic Shoes with 3 Pair Custom heat-molded multi-density innersoles for 1 year Dx: * Allergies: C ipro: anaphylactic shock, Levaquin: anaphylactic shock, Adhesive Tape: rash, Amoxicillin: SOB, Morphine: vomiting, Iodinated Diagnostic Agents: hives, Penicillin: SOB, Latex: hives. Objective: * Vitals: Assessment: Plan: * Treatment: * Images: * The named appointment provid er may or may not be the originator of this progress note, and it is not deemed complete until electronically signed by the appointment provider. Sign off status: Pending * Provider: Sid Nguyễn DPM Date: 0 10/15/2024 Generated for Jeny ball/Chance/Pallavi on: 09/12/2024 02:00 PM EST
--- OUTSIDE RECORDS SUMMARY | 2025-01-22 06:15 | XMS_ITS ---
Author Organization [facility] Address [address] [place] [address] Care Team Providers Care Quarter Lining Smoother Name Role Phone Cristina Damon Primary Care Provider Jeanette De Leon [phone] Encounters Encounter Location Date Provider Diagnosis [facility] [address] [place] [address] 01/22/2025 Jeanette Messer Plan Of Treatment No Information Progress Notes * Kaitlin BROWN MDOB:[birth year] (80 yo F)Acc No.[id number]:01/22/2025 Progress Note Patient: Kaitlin URIBE Provider: Miguel Messer DPM :1945 A ge:79 Y S ex:Female Date:01/22/2025 Address:[facility] [address] [place] Pcp:Cristina Damon Subjective: * Chief Complaints: * [...] DPM Date: 0 01/22/2025 Generated for Hoi lizzy/Fataneshag/eTransmitting on: 09/12/2024 02:00 PM EST
--- OUTSIDE RECORDS SUMMARY | 2025-06-18 05:45 | XMS_ITS ---
Author Organization [facility] Address [address] [place] [address] Care Team Providers Care Sr Solutions Consultant Name Role Phone Cristina Damon Primary Care Provider Jeanette De Leon Unavailable [phone] Jose Francisco Dietz Unavailable [phone] Medications Medication SIG (Take, Route, Frequency, Duration) [...] Active Encounters Encounter Location Date Provider Diagnosis [facility] [address] [place] [address] 06/18/2025 Jose Francisco Dietz Plan Of Treatment No Information Progress Notes * Kaitlin BROWN OB:[birth year] (80 yo F)Acc No.[id number]:06/18/2025 Progress Note Patient: Kaitlin URIBE Provider: Sid Dietz DPM :1945 A ge:79 Y S ex:Female Date:06/18/2025 Address:[address] [place] [address], [facility] Pcp:Cristina Damon Subjective: * Chief Complaints: * [...] Sid Dietz DPM Date: Generated for Jeny Trent/Pallavi on: 09/12/2024 02:01 PM EST
--- OUTSIDE RECORDS SUMMARY | 2025-06-18 06:15 | XMS_ITS ---
Author Organization [facility] Address [address] [place] [address] Care Team Providers Care Ampoule Inspector Name Role Phone Cristina Damon Primary Care Provider Unavailabl Jeanette Weinberg Unavailable [phone] Bishnu Cervantes Unavailable [phone] Merino Encounters Encounter Location Date Provider Diagnosis [facility] [address] [place] [address] 06/18/2025 Bishnu Cervantes Plan Of Treatment No Information Progress Notes * Kaitlin BROWN MDOB:[birth year] (80 yo F)Acc No.[id number]:06/18/2025 Progress Note Patient: Kaitlin URIBE Provider: Kj Cervantes DPM :1945 A ge:79 Y S ex:Female Date:06/18/2025 Address:[facility] [address] [place] [place] Pcp:Cristina Damon Subjective: * Chief Complaints: * [address] Merino. * Medical History: Objective: * Vitals: Assessment: Plan: * Treatment: * Images: * The named appointment provid er may or may not be the originator of this progress note, and it is not deemed complete until electronically signed by the appointment provider. Sign off status: Pending * Provider: Kj Cervantes DPM Date: Generated for Printi ng/Fataneshag/eTransmitting on: 09/12/2024 02:01 PM EST
--- OUTSIDE RECORDS SUMMARY | 2025-07-12 09:15 | XMS_ITS | Encounter Summary ---
Author Organization [facility] Address [address] [place] [address] Care Team Providers Care Parts Puller Name Role Phone Ricardo Breen Primary Care Provider [phone] Reason for Referral * Consultation (Routine) - Pending Review Specialty Diagnoses / Procedures Referred By Yasir morel Referred To Contact Home Health Services Diagnoses 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 Murali Hooker MD [address] [place] [address] Phone: tel: fax: Referral ID Status Reason Start Date Expiration Date V isits Requested Visits Authorized [id number] Pending Review 07/12/2025 08/11/2026 6 6 Reason for Visit * Reason Comments Follow-up * Orthopedic (Routine) - Authorized Specialty Diagnoses / Procedures Referred By Yasir morel Referred To Contact Orthopedic Surgery / Orthopaedic Surgery Diagnoses N left hip trauma LT REVISION 01/26/25 Procedures FOLLOW UP Murali Hooker MD [address] [place] [address] Phone: tel: fax: Referral ID Status Reason Start Date Expiration Date V isits Requested Visits Authorized [id number] Authorized 07/12/2025 01/11/2027 6 6 Encounter Details Date Type Department Care Team (Late st Contact Info) Description 07/12/2025 9:15 AM EST Follow-Up [facility] [address] [place] [address] Murali Hooker MD [address] [place] [address] 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 (Primary Dx) Social History Tobacco Use Types Packs/Day Years Used Date Smoking Tobacco: Never Smokeless Tobacco: Never Alcohol Use Standard Drinks/Week Comments Never 0 (1 standard drink = 0.6 oz pur e alcohol) [facility] Utilities Answer Date Recorded In the past 12 months has th e electric, gas, oil, or water [employer] threatened to shut off services in your [...] AM EDT documented as of this encounter Progress Notes * Murali Hooker MD - 07/12/2025 9:19 AM EST Subjective: Patient ID: Kaitlin Ortiz is a 80 y.o. female. Reason for Visit Patient presents with Left Hip - Follow-up HPI: Kaitlin returns to clinic 5-1/2 months status post left hip revision for infection. She had a fall about a month ago, she was seen at [facility] where she was told she had a fracture of theleft hip. She was made nonweightbearing at that point. She has been in a wheelchair since then, prior to the fall, she was using a walker. She does not really have much pain in the left hip, she is looking forward to putting weight on this left hip again says that she does not get weaker. Objective: There were no vitals taken for this visit. Pain Score: 3 Ortho Exam General: Overweight appearing female, no acute distress Musculoskeletal examination of left lower extremity reveals minimal discomfort with rotation of theleft leg. She has minimal discomfort with axial load of the left leg. Radiology: X-rays of the left hip taken on 06/28/2025 are reviewed by myself today. These x-rays reveal unchanged alignment of the articulating antibiotic spacer on the acetabular side, unchanged alignment of the press-fit stem. I do not see any signs of fracture or change in component position. Assessment: 1. 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 Plan: Kaitlin is a 80-year-old lady status post left hip revision, who does not have any obvious evidence that I can see of a fracture around her hip replacement. I think at this point, there is higher risk of keeping her nonweightbearing that there would be to let her weight-bear as tolerated. She needs to be able to continue to work the muscles in this left leg for her mobility and her overall health. She can be weightbearing as tolerated at this point, no precautions. I provided a new prescription for home health to have her work with PT on this. Follow-up: 6 weeks Imaging at next visit: Three-view left hip Orders Placed This Encounter Procedures Ambulatory referral to Home Health Standing Status: Future Expected Date: 07/12/2025 Expiration Date: 08/11/2026 Referral Priority: Routine Referral Type: Home Health Requested Specialty: Home Health Services Number of Visits Requested: 6 Expiration Date: 08/11/2026 Portions of this note were created with voice recognition software. As such, please excuse any wordselection errors, misspellings, or grammatical errors. Efforts were made to proofread and correct this note prior to signing. If there are any questions, please don't hesitate to contact the office. documented in this encounter Plan of Treatment Upcoming Encounters Date Type Department Care Team (Late st Contact Info) Description 08/25/2025 9:15 AM EST Follow-Up [facility] [address] [place] [address] Murali Hooker MD [address] [place] [address] Scheduled Referrals Name Type Priority Associated Diagnoses Orde r Schedule Ambulatory referral to Home Health Outpatient Referral Routine 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 Expected: 07/12/2025, Expires: 08/11/2026 documented as of this encounter Goals Goal Patient Goal Type Associated Problems Recent Progress Patient-Stated? Author Autogenera gaby Goal Care Plan Autogenerated Problem No Rachel Villatoro documented as of this encounter Visit Diagnoses Diagnosis 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- Primary documented in this encounter Additional Health Concerns Active Problems Noted Date Diagnosed Date Autogenerated Problem 01/20/2025 documented as of this encounter Care Teams Parts Puller Relationship Specialty Start Date End Date Ricardo Breen [address] [place] [address] [place] [address] PCP - General Internal Medicine 01/26/25 documented as of this encounter
[2025-07-13 11:24] VITALS: BP 140/58; PULSE 57; O2SAT 94; BMI 35.2
--- NOTE | 2025-07-13 11:24 | HO.NEPHOV_ITS ---
Vital Signs 07/13/25 11:24 Height 5 ft 4 in Weight 205 lb BMI 35.2 BP 140/58 H Blood Pressure Location Lt brachial Position Sitting Pulse 57 Pulse Source Pulse Oximeter Pulse Oximetry (%) 94 Oxygen Delivery Method Room Air Intake Visit Reasons: INP:Chronic kidney disease, r/s 06/14 conf. Stem Processing Machine Operator Required: No Accompanied by: Spouse Allergies amoxicillin (AMOXICILLIN) Allergy (Severe, Verified 08/03/25 13:24) stroke, blood clots ciprofloxacin (From CIPRO) Allergy (Severe, Verified 08/03/25 13:24) ANAPHYLAXIS Iodinated Contrast Media (IV DYE, IODINE CONTAINING CONTRAST ) Allergy (Severe, Verified 08/03/25 13:24) HIVES levofloxacin Allergy (Severe, Verified 08/03/25 13:24) Anaphylaxis liraglutide Allergy (Severe, Verified 08/03/25 13:24) Headache Penicillins Allergy (Severe, Verified 08/03/25 13:24) stroke, blood clots FREYA Inhibitors Allergy (Intermediate, Verified 08/03/25 13:24) Cough ARB-Angiotensin Receptor Antagonist Allergy (Intermediate, Verified 08/03/25 13:24) Cough cefpodoxime Allergy (Intermediate, Verified 08/03/25 13:24) Dizziness, nausea doxazosin Allergy (Intermediate, Verified 08/03/25 13:24) Shortness of Breath fluticasone (Advair Diskus) Allergy (Intermediate, Verified 08/03/25 13:24) Anxiety gabapentin (From Neurontin) Allergy (Intermediate, Verified 08/03/25 13:24) Headache hydralazine Allergy (Intermediate, Verified 08/03/25 13:24) Shortness of Breath latex Allergy (Intermediate, Verified 08/03/25 13:24) Hives linezolid Allergy (Intermediate, Verified 08/03/25 13:24) Nausea and Vomiting meloxicam Allergy (Intermediate, Verified 08/03/25 13:24) Unknown salmeterol (Advair Diskus) Allergy (Intermediate, Verified 08/03/25 13:24) Anxiety Tetanus Vaccines and Toxoid Allergy (Intermediate, Verified 08/03/25 13:24) Swelling torsemide Allergy (Intermediate, Verified 08/03/25 13:24) Shortness of Breath cephalexin (Keflex) Allergy (Mild, Verified 08/03/25 13:24) Nausea Medication List - Last Reconciled 07/13/25 by Mike Briscoe MD acetaminophen 650 mg (2 x 325 mg) PO Q6H PRN 30 days amlodipine 5 mg PO DAILY ascorbic acid (vitamin C) 1,000 mg PO DAILY aspirin 325 mg PO DAILY atorvastatin 80 mg PO BEDTIME blood sugar diagnostic (Accu-Chek Guide test strips) As directed carvedilol 25 mg PO BID chair, wheel (Wheel chair) Transfer chair citalopram 20 mg PO DAILY coenzyme Q10 (CoQ-10) 100 mg PO BEDTIME duloxetine 60 mg PO DAILY esomeprazole magnesium 40 mg PO BID famotidine 40 mg PO BEDTIME ferrous sulfate (iron) 325 mg PO DAILY fluconazole 75 mg (1/2 x 150 mg) PO DAILY furosemide 40 mg PO DAILY PRN guaifenesin ER (Mucinex) 600 mg PO BID PRN ibrutinib (Imbruvica) 420 mg PO DAILY lancets (FreeStyle Lancets) As directed magnesium 250 mg PO BEDTIME mastectomy bra (bra, mastectomy) As Directed mastectomy bra (bra, mastectomy) As Directed mastectomy bra (bra, mastectomy) As Directed metformin 1,000 mg PO BID multivitamin 1 tab PO DAILY oxybutynin chloride 5 mg PO BID PRN oxycodone 5 mg PO Q4H PRN polyethylene glycol 3350 (Miralax) 17 grams PO DAILY PRN pregabalin 150 mg PO BID walker Folding front wheeled walker walker Folding front wheeled walker HPI Comments Details: The patient is a 80-year-old female presenting with chronic kidney disease management. Chronic kidney disease has been a concern, with serum creatinine levels fluctuating between 1.3 and 1.9 mg/dL over the past few months, indicating variable kidney function. The patient has experienced multiple episodes of acute kidney injury in the last two years, likely exacerbated by recurrent urinary tract infections and medication use. The patient has a history of recurrent urinary tract infections, occurring monthly, and is managed with a suprapubic tube, which is changed every three weeks. She has been on various antibiotics, including Bactrim, which is now advised against due to its potential nephrotoxic effects. The patient has chronic lymphocytic leukemia, managed with Imbruvica for the past six years. She also has a history of breast cancer, status post mastectomy. Hypertension and coronary artery disease are part of her medical history, with current management including carvedilol and amlodipine. Peripheral edema has been noted, possibly related to amlodipine use, and a dose reduction is planned. The patient reports constipation managed with MiraLax and persistent nausea. She experiences dyspnea on exertion, limiting her physical activity. Medication management issues were identified, with the patient taking both esomeprazole and famotidine, which are similar in action. Adjustments to her medication regimen are being considered to optimize kidney function and reduce unnecessary medication use. ON LICENSE OF [facility] Medical History (Updated 08/03/25 @ 13:48 by MALISSA Bustillos) Type 2 diabetes mellitus with unspecified complications Diabetes PAF (paroxysmal atrial fibrillation) PAF (paroxysmal atrial fibrillation) Suprapubic catheter Neuropathy Osteoarthritis Morbid obesity Allergy to multiple antibiotics Depression Arthritis of left hip Wears dentures Neurogenic urinary bladder disorder History of blood transfusion History of CVA (cerebrovascular accident) Seasonal allergies PONV (postoperative nausea and vomiting) Diabetes with neurologic complications Anemia CLL (chronic lymphocytic leukemia) Sleep apnea Arthritis Fibromyalgia Hypercholesterolemia Hypertension History of bilateral breast cancer Urinary retention with incomplete bladder emptying Surgical History History of cervical discectomy History of open heart surgery (~01/31/24) History of total left hip replacement S/P Botox injection History of suprapubic catheter S/P left breast biopsy History of esophagogastroduodenoscopy (EGD) Hx of colonoscopy (~09/04/21) History of bladder repair surgery History of total hysterectomy S/P breast biopsy, right History of back surgery History of biopsy of bladder Family History Mother Breast cancer Father Heart disease Father Lung cancer Mother Colon cancer Brother Pancreatic cancer Social History Household Members: Spouse Housing: House Housing Other:: has chair lift for second floor access Are you a primary career guidance technician to a significant other at home: No Do you presently have visiting nurse or other home services: No Alcohol intake: never Comment: patient refused telesiter,removed per pt request Patient Tobacco Use Status: Never used Tobacco e-Cigarette/Vaping Use: Never Used Advance Directives Date on File: 07/30/23 service: No Current occupational status: retired Female Reproductive History Menstrual Age of Menarche: 15 Review of Systems Const Denies fever(s) and Denies weight loss Card Denies chest pain Resp Denies cough and Denies hemoptysis GI Denies abdominal pain, Denies diarrhea and Denies nausea Musc Denies back pain Neuro Denies focal weakness Physical Exam Vital Signs: Last Vital Signs Pulse 57 07/13/25 11:24 BP 140/58 H 07/13/25 11:24 Pulse Ox 94 07/13/25 11:24 Oxygen Delivery Method Room Air 07/13/25 11:24 BMI result Body Mass Index 35.2 Comfortable Neck supple no JVD. Lungs entry equal no rales. Heart S1-S2 heard no gallop or rub. Abdomen soft nontender. Neuro alert awake oriented. No asterixis. Extremities no edema. Results Reviewed Nephrology Results: Hgb, (12.0-16.0) 9.9 g/dl L 07/27/25 WBC, (4.8-10.8) 11.4 X10*3/uL H 07/27/25 Plt Count, (160-400) 113 X10*3/uL L 07/27/25 Sodium, (135-145) 144 mmol/L 08/02/25 Potassium, (3.3-5.1) 4.8 mmol/L 08/02/25 Chloride, (96-108) 108 mmol/L 08/02/25 Carbon Dioxide, (22-29) 27 mmol/L 08/02/25 BUN, (9-16) 27 mg/dL H 08/02/25 Creatinine, (0.5-1.4) 1.61 mg/dL H 08/02/25 Calcium, (8.4-10.2) 9.4 mg/dL 08/02/25 Renal US 12/19/21 Assessment & Plan Assessment & Plan (1) Essential hypertension: Code(s): I10 - Essential (primary) hypertension Category: Medical (2) CKD (chronic kidney disease): Code(s): N18.9 - Chronic kidney disease, unspecified Category: Medical Plan 1. Chronic Kidney Disease Baseline creatinine has been around 1.4-1.6 mg/dL. 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 - Monitor kidney function with regular blood tests, including serum creatinine levels. - Avoid nephrotoxic medications such as Bactrim, Aleve, Advil, and Motrin. - Schedule an ultrasound to assess kidney structure and function. 2. Recurrent Urinary Tract Infections - Continue management with suprapubic tube, changed every three weeks. - Review antibiotic regimen to avoid nephrotoxic agents. 3. Hypertension - Reduce amlodipine dose from 10 mg to 5 mg to manage peripheral edema. - Continue carvedilol to maintain blood pressure control. Can titrate dose of carvedilol as needed. Unable to add FREYA inhibitors or ARB due to cough. She is currently on spironolactone and is able to tolerate without any significant side effects. 4. Other - Discontinue either esomeprazole or famotidine to avoid duplication of therapy. - Review all medications to ensure appropriate dosing and avoid nephrotoxic effects. Orders: Orders Basic Metabolic Panel 4 Weeks N18.9 - Chronic kidney disease, unspecified, N20.0 - Calculus of kidney US renal BI 07/13/25 N18.9 - Chronic kidney disease, unspecified, N20.0 - Calculus of kidney Coding Level of Care Code New Pt Level 4 (76814) Diagnoses Essential hypertension I10 CKD (chronic kidney disease) N18.9
--- OUTSIDE RECORDS SUMMARY | 2025-07-13 14:00 | XMS_ITS | Encounter Summary ---
Author Organization [facility] Address [address] [place] [phone] Phone Care Team Providers Care Billing Typist Name Role Phone Kathy Connor Primary Care Provider [phone] Ricardo Breen MD Primary Care Provider [phone] Encounter Details Date Type Department Care Team (Late st Contact Info) Description 03/11/2018 Procedure Pass [facility], [address] [address] Social History Tobacco Use Types Packs/Day Years [...] on filedocumented in this encounter Care Teams Billing Typist Relationship Specialty Start Date End Date Kathy Connor PA [email or web address] PCP - General 03/11/18 04/07/18 Ricardo Breen MD [address] [place] [address] Dr [place], [place] [phone] PCP - General Internal Medicine 04/08/18 documented as of this encounter Additional Source Comments The information contained in this document represents components of the legal health record. It is not the complete legal health record.[facility]
--- OUTSIDE RECORDS SUMMARY | 2025-07-13 14:00 | XMS_ITS | Encounter Summary ---
Author Organization [facility] Address [address] [place] [address] [place] [address] Phone Care Team Providers Care Non Licensed Nuclear Plant Operator Name Role Phone Kathy Connor Primary Care Provider [phone] Ellen Breen MD Primary Care Provider [phone] Reason for Referral * MRI/CAT Scan - Closed Specialty Diagnoses / Procedures Referred By Contiveth t Referred To Contact Radiology Diagnoses Cervical spinal stenosis Procedures MRI Cervical Spine Kathy Connor PA Phone: tel: fax: [email or web address] Referral ID Status Reason Start Date Expiration Date Visits Re quested Visits Authorized [id number] Closed 03/11/2018 03/11/2019 1 1 Encounter Details Date Type Department Care Team (Late st Contact Info) Description 03/11/2018 Ancillary Orders Virtual Department [address] [place] [address] Kathy Connor PA [address] [place] [phone] [email or web address] Cervical spinal stenosis Social History Tobacco Use [...] advanced degenerative changes as outlined. POS - [id number] Narrative 03/19/2018 4:08 PM EDT COMPARISON: 03/03/2015. [...] advanced degenerative changes as outlined. POS - [id number] Kathy LEONARDO IMG MR XSPECIALTY Final Res ult documented in this encounter Visit Diagnoses Diagnosis Cervical spinal stenosis Spinal stenosis in cervical region Cervical spinal stenosis Spinal stenosis in cervical region documented in this encounter Care Teams Non Licensed Nuclear Plant Operator Relationship Specialty Start Date End Date Kathy Connor PA [email or web address] PCP - General 03/11/18 04/07/18 Ellen Breen MD [address] [place] [address] [place] [address] PCP - General Internal Medicine 04/08/18 documented as of this encounter Additional Source Comments The information contained in this document represents components of the legal health record. It is not the complete legal health record.[facility]
--- OUTSIDE RECORDS SUMMARY | 2025-07-13 14:00 | XMS_ITS | Encounter Summary ---
Author Organization [facility] Address [address] [place] [address] Care Team Providers Care Carpenters Supervisor Name Role Phone Jamshid Ricardo Jayla Primary Care Provider [phone] Encounter Details Date Type Department Care Team (Late st Contact Info) Description 02/10/2025 Documentation [facility] Case Management Department [address] [place] [address] Rachel Anaya Social History Tobacco Use Types Packs/Day Years Used Date Smoking Tobacco: Never Smokeless Tobacco: Never Alcohol Use Standard Drinks/Week Comments Never 0 (1 standard drink = 0.6 oz pur e alcohol) [facility] Utilities Answer Date Recorded In the [...] Info) Description 08/25/2025 9:15 AM EST Follow-Up [facility] [address] [place] [id number] Murali Hooker MD [address] [place] [phone] documented as of this encounter Goals Goal Patient Goal Type Associated Problems Recent Progress Patient-Stated? Author Autogenera gaby Goal Care Plan Autogenerated Problem Rachel Hammonds documented as of this encounter Visit Diagnoses Not on filedocumented in this encounter Additional Health Concerns Active Problems Noted Date Diagnosed Date Autogenerated Problem 01/20/2025 documented as of this encounter Care Teams Carpenters Supervisor Relationship Specialty Start Date End Date Ricardo Breen [address] [place] [address] [place] [address] PCP - General Internal Medicine 01/26/25 documented as of this encounter
--- OUTSIDE RECORDS SUMMARY | 2025-07-13 14:00 | XMS_ITS | Encounter Summary ---
Author Organization [facility] Address [address] [place] [phone] Phone Care Team Providers Care Strategic Debriefing Officer Name Role Phone Ricardo Breen MD Primary Care Provider Encounter Details Date Type Department Care Team (Late st Contact Info) Description 06/05/2022 Procedure Pass [facility], [address] [address] Social History Tobacco Use Types Packs/Day Years [...] on filedocumented in this encounter Care Teams Strategic Debriefing Officer Relationship Specialty Start Date End Date Ricardo Breen MD [address] [place] [address] Dr CONNOR [address] [place] [phone] PCP - General Internal Medicine 04/08/18 documented as of this encounter Additional Source Comments The information contained in this document represents components of the legal health record. It is not the complete legal health record.[facility]
--- OUTSIDE RECORDS SUMMARY | 2025-07-13 14:00 | XMS_ITS | Encounter Summary ---
Author Organization [facility] Address [address] [place] [address] Phone Care Team Providers Care Perch Mender Name Role Phone Ricardo Breen MD Primary Care Provider [phone] Reason for Referral * MRI/CAT Scan - Closed Specialty Diagnoses / Procedures Referred By Yasir t Referred To Contact Radiology Diagnoses Post laminectomy syndrome Procedures MRI Lumbar Spine Rolando Tomas DO Phone: tel: fax: mailto:[email or web address] Referral ID Status Reason Start Date Expiration Date Visits Re quested Visits Authorized [id number] Closed 06/05/2022 06/05/2023 1 1 Encounter Details Date Type Department Care Team (Latest Contact Info) Description 06/05/2022 Transcribe Orders Virtual Department [address] [place] [address] Rolando Tomas DO [address] [place] [address] Post laminectomy syndrome (Primary Dx) Social History [...] stenosis. Mild right foraminal stenosis. Procedure Note Moriama Shelton MD - 06/26/2022 MRI LUMBAR SPINE [...] region documented in this encounter Care Teams Perch Mender Relationship Specialty Start Date End Date Ricardo Breen MD [address] [place] [address] Dr [place], EB[place] [address] PCP - General Internal Medicine 04/08/18 documented as of this encounter Additional Source Comments The information contained in this document represents components of the legal health record. It is not the complete legal health record.[facility]
--- OUTSIDE RECORDS SUMMARY | 2025-07-13 14:00 | XMS_ITS | Clinical Summary ---
Author Organization [facility] Address [address] [place] [address] Phone Care Team Providers Care Bushing Press Operator Name Role Phone Ricardo Breen MD [...] MEDICARE PART A & B [facility] MEDICARE SUPPLEMENT MEDICARE PART A & B [facility] MEDICARE SUPPLEMENT MEDICARE PART A & B Member Subscriber Plan / Payer (Ef fective 2008-Present) Name:Jeri Brown Member ID:[id number] Relation to Subscriber:Self Name:Jeri Brown Subscriber ID:[id number] Payer ID:[id number] Group ID:Not on file Type:Medicare Address: [facility] [employer] [place] [id number] MEDICARE SUPPLEMENT MEDICARE PART A & B [facility] MEDICARE SUPPLEMENT MEDICARE PART A & B [facility] MEDICARE SUPPLEMENT MEDICARE PART A & B MEDICARE SUPPLEMENT MEDICARE PART A & B [facility] MEDICARE SUPPLEMENT MEDICARE PART A & [place] [id number] [facility] MEDICARE SUPPLEMENT MEDICARE PART A & B [facility] MEDICARE SUPPLEMENT Care Teams Bushing Press Operator Relationship Specialty Start Date End Date Ricardo Breen MD [address] [place] [phone] PCP - General Internal Medicine 04/08/18 Additional Source Comments The information contained in this document represents components of the legal health record. It is not the complete legal health record.[facility]
--- OUTSIDE RECORDS SUMMARY | 2025-07-13 14:00 | XMS_ITS | Encounter Summary ---
Author Organization [facility] Address [address] [facility] [address] [place], [place] [id number] Phone Care Team Providers Care Gradall Operator Name Role Phone Ricardo Breen MD Primary Care Provider Encounter Details Date Type Department Care Team (Late st Contact Info) Description 04/08/2018 Ancillary Orders [facility], X-Ray - [address] [address] Brannon Perea MD [address] [place] [id number] [email or web address] Cervical spondylosis without myelopathy Social History [...] 3 mm of retrolisthesis of C4 on M4hertv does not change appreciably in flexion but [...] myelopathy documented in this encounter Care Teams Gradall Operator Relationship Specialty Start Date End Date Ricardo Breen MD [address] [place] [address] [place], [place] [address] PCP - General Internal Medicine 04/08/18 documented as of this encounter Additional Source Comments The information contained in this document represents components of the legal health record. It is not the complete legal health record.[facility]
--- OUTSIDE RECORDS SUMMARY | 2025-07-13 14:01 | XMS_ITS | Clinical Summary ---
Author Organization [facility] Address [address] [place] [address] Care Team Providers Care Helper Animal Laboratory Name Role Phone Ricardo Breen Primary Care Provider [phone] Allergies Active Allergy Reactions Criticality Noted Date [...] 12 hours. For 30 days 5 Active Additional Information Patient not taking.Reported on 07/12/2025 senna (SENOKOT) 8.6 mg tablet Take 2 tablets (17.2 mg total) by mouth nightly. 5 Active Additional Information Patient not taking.Reported on 07/12/2025 acetaminophen (TYLENOL) 325 mg tablet Take 2 tablets (650 mg total) by mouth every 6 hours. 5 Active aspirin 81 mg EC tablet Take 1 tablet (81 mg total) by mouth once a day. May resume when eliquis stopped 5 Active Additional Information Patient not taking.Reported on 07/12/2025 ibrutinib (IMBRUVICA) 140 mg capsule Take 3 capsules (420 mg total) by mouth once a day. May resume when family can provide to facility 5 Active sodium chloride 0.9% injection Infuse 10 mL intravenously every 12 hours. And after every use Active Additional Information Patient not taking.Reported on 07/12/2025 sodium chloride 0.9% injection Infuse 10 mL intravenously once a day. 5 Active Additional Information Patient not taking.Reported on 07/12/2025 0.9% NaCl parenteral solution 500 mL with vancomycin 5 gram recon soln 1,250 mg Infuse 1,250 mg intravenously every 24 hours. Anticipated 6 weeks. Goal trough 15-20. ID to determine final duration Active hydrocortisone (CORTEF) 5 mg tablet Take 5 [...] SMARTSI Tablet(s) By Mouth Every 8 Hours 5 Active sulfamethoxazo le-trimethopri m (BACTRIM SS) 400-80 mg tabletIndicati ons:Suppressiv e therapy Take 1 tablet by mouth 2 times a day Indications: Suppressive therapy. 60 tablet 5 Active aspirin 325 mg EC tablet Take 325 mg by mouth once a day. 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, initial encounter 01/26/2025 Encounters Date Type Department Care Team Description 07/12/2025 9:15 AM EST Follow-Up [facility] [address] [place] [address] [id number] Murali Hooker MD 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 (Primary Dx) 06/28/2025 8:58 AM EDT - 06/28/2025 11:59 PM EDT Hospital Encounter [facility] Xray [address] [place], [place] [id number] 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; Left hip pain Discharge Disposition: Home or Self Care (01) 06/28/2025 8:45 AM EDT Follow-Up [facility] [address] [place] [address] ArlynMurali PA Left hip pain (Primary Dx) 06/04/2025 Orders Only [facility] [address] [place] [address] Graduate Internship: Adeola Ernandez NP 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, initial encounter (Primary Dx); Staphylococcal infection 05/25/2025 Telephone [facility] [address] [place] [address] Graduate Internship: Adeola Ernandez NP 05/25/2025 Telephone [facility] [address] [place] [address] Graduate Internship: Adeola Ernandez NP 04/27/2025 Telephone [facility] [address] [place] [address] Graduate Internship: Adeola Ernandez NP 04/20/2025 Telephone [facility] [address] [place] [address] Graduate Internship: Edda Santos Telephone Intake, Staff PAC Patient Request Call Back 04/12/2025 1:30 PM EDT Follow-Up [facility] [address] [place] [address] Murali Hooker MD Infection associated with internal [...] 0.6 oz pur e alcohol) [facility] Utilities Answer Date Recorded In the [...] Info) Description 08/25/2025 9:15 AM EST Follow-Up [facility] [address] [place] [address] Murali Hooker MD [address] [place] [address] Health Maintenance Due Date Last Done Comments [...] Type Associated Problems Recent Progress Patient-Stated? Author Autojulio griffin Goal Care Plan Autogenerated Problem No Korean, Rachel Medical Devices Implanted Type Area Golf Course Keeper Device Identifier Shelf Expiration Date Model / Serial / Lot Cement Radiopaque Full Dose 40gr Simplex P - [id number] Implanted:Qty: 2 on 01/26/2025 by Murali Hooker MD at [facility] Implant Left: Hip JACLYN 07/09/2026 [id number] / / [id number] Insert Acetabular Eccentric 36mm 10 Degree Trident X3 - [id number] Implanted:Qty: 1 on 01/26/2025 by Murali Hooker MD at [facility] Implant Left: Hip JACLYN 04/15/2029 [id number] / / [id number] Head Femoral Anatomic V40 Vitallium Cocr Plus [id number] Lfit - [id number] Implanted:Qty: 1 on 01/26/2025 by Murali Hooker MD at [facility] Implant Left: Hip JACLYN 02/07/2028 [id number] / / [id number] Procedures * Due to [place] state law, this organization might not be [...] Last 3 Months Results * Due to [place] state law, this organization might not be [...] to obtain the completed interpretation. Workstation ID: [id number] Narrative 06/28/2025 11:03 AM EDT COMPARISON: 02/12/2025. FINDINGS AND Resulting Agency Comment [id number] Procedure Note Jose A Luong MD - [...] possible to obtain thecompleted interpretation. Workstation ID: [id number] us Murali Hooker MD IMG XR PROCEDURES Final Res ult * (ABNORMAL) CBC Auto Differential (06/01/2025 1:38 PM EDT) Only the most recent of3 resultswithin the time period is included. White Blood Cell Count 7.8 3.8 - 10.8 Thousand/ uL 06/02/2025 4:58 AM [facility] Red Blood Cell Count 3.71(L) 3.80 - 5.10 Million/u L 06/02/2025 4:58 AM [facility] Hemoglobin 11.2(L) 11.7 - 15.5 g/dL 06/02/2025 4:58 AM [facility] Hematocrit 35.9 35.0 - 45.0 % 06/02/2025 4:58 AM [facility] MCV 96.8 80.0 - 100.0 fL 06/02/2025 4:58 AM [facility] MCH 30.2 27.0 - 33.0 pg 06/02/2025 4:58 AM [facility] MCHC 31.2(L) 32.0 - 36.0 g/dL 06/02/2025 4:58 AM [facility] Comment: For adults, a slight decrease in the calculated MCHC value (in the range of 30 to 32 g/dL) is most likely not clinically significant; however, it should be interpreted with caution in correlation with other red cell parameters and the patient's clinical condition. RDW 14.3 11.0 - 15.0 % 06/02/2025 4:58 AM EDT [facility] Platelet Count 114(L) 140 - 400 Thousand/ uL 06/02/2025 4:58 AM EDT [facility] MPV 12.2 7.5 - 12.5 fL 06/02/2025 4:58 AM EDT [facility] Absolute Neutrophils 4,774 1,500 - 7,800 cells/uL 06/02/2025 4:58 AM [facility] Absolute Lymphocytes 2,059 850 - 3,900 cells/uL 06/02/2025 4:58 AM [facility] Absolute Monocytes 866 200 - 950 cells/uL 06/02/2025 4:58 AM [facility] Absolute Eosinophils 62 15 - 500 cells/uL 06/02/2025 4:58 AM [facility] Absolute Basophils 39 0 - 200 cells/uL 06/02/2025 4:58 AM [facility] Neutrophils 61.2 % 06/02/2025 4:58 AM EDT [facility] Lymphocytes 26.4 % 06/02/2025 4:58 AM [employer] Monocytes 11.1 % 06/02/2025 4:58 AM [facility] Eosinophils 0.8 % 06/02/2025 4:58 AM [facility] Basophils 0.5 % 06/02/2025 4:58 AM [facility] Blood Structure of peripheral vein / Unknown 06/01/2025 1:38 PM EDT 06/02/2025 3:22 AM EDT Narrative [facility] - 06/02/2025 5:42 AM EDT FASTING:NO us Adeola Miller SUPERVISOR [facility] BLOOD ORDERABLES Final Res ult [facility] [address] [facility] [address] Floor, [place] [address], [place] [phone] [address] [address] * Sedimentation Rate (06/01/2025 1:38 PM EDT) Only the most recent of2 resultswithin the time period is included. Sed Rate By Modified Emmanuelergren 25 0 - 30 mm/h 06/02/2025 4:51 AM EDT [facility] Blood Structure of peripheral vein / Unknown 06/01/2025 1:38 PM EDT 06/02/2025 3:54 AM EDT Narrative [facility] - 06/02/2025 5:42 AM EDT FASTING:NO Adeola Miller SUPERVISOR [facility] BLOOD ORDERABLES Final Res ult Performing Organization Address City/[facility]/ZIP Co de Phone Number [facility] [address], [place] [address], [place] [phone] [facility] [address] [address] * C-Reactive Protein (06/01/2025 1:38 PM EDT) Only the most recent of2 resultswithin the time period is included. C-Reactive Protein 6.6 <8.0 mg/L 06/02/2025 4:10 AM EDT [facility] Blood Structure of peripheral vein / Unknown 06/01/2025 1:38 PM EDT 06/02/2025 2:42 AM EDT Narrative [facility] - 06/02/2025 5:42 AM EDT FASTING:NO Adeola Miller SUPERVISOR [facility] BLOOD ORDERABLES Final Res ult [facility] [address], [place] [address], [place] [phone] [facility] [address] [address] * (ABNORMAL) Comprehensive Metabolic Panel (06/01/2025 1:38 PM EDT) Only the most recent of3 resultswithin the time period is included. [facility] Glucose 148(H) 65 - 139 mg/dL 06/02/2025 5:40 AM [facility] Comment: Non-fasting reference interval BUN 28(H) 7 - 25 mg/dL 06/02/2025 5:40 AM [facility] Creatinine 1.80(H) 0.60 - 1.00 mg/dL 06/02/2025 5:40 AM [facility] eGFR 28(L) > OR = 60 mL/min/1. 73m2 06/02/2025 5:40 AM [facility] Bun/Creatinine Ratio 16 6 - 22 (calc) 06/02/2025 5:40 AM [facility] Sodium 138 135 - 146 mmol/L 06/02/2025 5:40 AM [facility] Potassium 4.9 3.5 - 5.3 mmol/L 06/02/2025 5:40 AM [facility] Chloride 101 98 - 110 mmol/L 06/02/2025 5:40 AM [facility] Carbon Dioxide 28 20 - 32 mmol/L 06/02/2025 5:40 AM [facility] Calcium 9.4 8.6 - 10.4 mg/dL 06/02/2025 5:40 AM [facility] Protein, Total 5.9(L) 6.1 - 8.1 g/dL 06/02/2025 5:40 AM [facility] Albumin 4.0 3.6 - 5.1 g/dL 06/02/2025 5:40 AM [facility] Globulin 1.9 1.9 - 3.7 g/dL (calc) 06/02/2025 5:40 AM [facility] Albumin/Globuli n Ratio 2.1 1.0 - 2.5 (calc) 06/02/2025 5:40 AM [facility] Bilirubin, Total 0.5 0.2 - 1.2 mg/dL 06/02/2025 5:40 AM [facility] Alkaline Phosphatase 56 37 - 153 U/L 06/02/2025 5:40 AM [facility] AST 14 10 - 35 U/L 06/02/2025 5:40 AM EDT [facility] ALT 11 6 - 29 U/L 06/02/2025 5:40 AM EDT [facility] Blood Structure of peripheral vein / Unknown 06/01/2025 1:38 PM EDT 06/02/2025 2:42 AM EDT Narrative [facility] - 06/02/2025 5:42 AM EDT FASTING:NO us Adeola Miller SUPER[facility] BLOOD ORDERABLES Final Res ult [facility] [address] [facility] [address], [place] [address], [facility] [address] [place] [address] from Last 3 Months Additional Health Concerns Active Problems Noted Date Diagnosed Date Autogenerated Problem 01/20/2025 Insurance MEDICARE [facility] * Guarantor: JERI BROWN Account Type Relation to Patient Date of Phone Billing Address Personal/Family MEDICARE [facility] Advance Directives * Full Code (Latest Code Status on File) Date Activated Date Inactivated Comments 01/26/2025 10:59 AM 02/05/2025 3:20 PM * Full Code Date Activated Date Inactivated Comments 01/26/2025 5:58 AM 01/26/2025 10:59 AM Care Teams Helper Animal Laboratory Relationship Specialty Start Date End Date Ricardo Breen [address] [place] [address] [place] [address] PCP - General Internal Medicine 01/26/25
--- OUTSIDE RECORDS SUMMARY | 2025-07-13 14:01 | XMS_ITS | Encounter Summary ---
Author Organization [facility] Address [address] [place] [address] Phone Care Team Providers Care Demo Coordinator Name Role Phone Ricardo Breen MD Primary Care Provider Encounter Details Date Type Department Care Team (Late st Contact Info) Description 06/29/2021 Procedure Pass [facility], [address] [address] Social History Tobacco Use Types Packs/Day Years [...] on filedocumented in this encounter Care Teams Demo Coordinator Relationship Specialty Start Date End Date Ricardo Breen MD [address] [place] [address] Dr CONNOR [address] [place] [address] PCP - General Internal Medicine 04/08/18 documented as of this encounter Additional Source Comments The information contained in this document represents components of the legal health record. It is not the complete legal health record.[facility]
--- OUTSIDE RECORDS SUMMARY | 2025-07-13 14:01 | XMS_ITS | Continuity of Care Document ---
Author Organization [facility] [address] [place] [address] Phone [phone] Social History Type Date Description Comments Sex [...]
--- OUTSIDE RECORDS SUMMARY | 2025-07-13 14:01 | XMS_ITS | Encounter Summary ---
Author Organization [facility] Address [address] [place] [address] [place] [address] Phone Care Team Providers Care Baggage Porter Name Role Phone Ricardo Breen MD Primary Care Provider Reason for Referral * MRI/CAT Scan - Closed Specialty Diagnoses / Procedures Referred By Yasir t Referred To Contact Radiology Diagnoses Lumbar radiculopathy Procedures MRI Lumbar Spine Rolando Tomas DO Phone: tel: fax: mailto:[email or web address] Referral ID Status Reason Start Date Expiration Date Visits Re quested Visits Authorized [id number] Closed 06/29/2021 06/29/2022 1 1 Encounter Details Date Type Department Care Team (Latest Contact Info) Description 06/29/2021 Ancillary Orders Virtual Department [address] [place] [address] Rolando Tomas DO [address] [place] [address] [email or web address] Lumbar radiculopathy Social History Tobacco Use Types [...] be performed for further evaluation. POS - [id number] Narrative 07/13/2021 8:26 AM EDT HISTORY: Chronic [...] could be performedfor further evaluation. POS - [id number] us Rolando Tomas DO IMG MR XSPECIALTY Final Resu lt documented in this encounter Visit Diagnoses Diagnosis Lumbar radiculopathy Thoracic or lumbosacral neuritis or radiculitis, unspecified Lumbar radiculopathy Thoracic or lumbosacral neuritis or radiculitis, unspecified documented in this encounter Care Teams Baggage Porter Relationship Specialty Start Date End Date Ricardo Breen MD [address] [place] [address] [place] [address] PCP - General Internal Medicine 04/08/18 documented as of this encounter Additional Source Comments The information contained in this document represents components of the legal health record. It is not the complete legal health record.[facility]
--- OUTSIDE RECORDS SUMMARY | 2025-07-13 14:02 | XMS_ITS | Patient Health Record ---
Author Organization [facility] Address [address] [place] [address] Care Team Providers Care Pallet Repairer Name Role Phone Cristina Damon Primary Care Provider UnavailJeanette Santoro Unavailable [phone] Bishnu Cervantes Unavailable [phone] Sylvia Nguyễn Unavailable [phone] Jose Francisco Dietz Unavailable [phone] Allergies Allergen (clinical drug ingredient) Drug/Non Drug [...] Problem Acquired hammer toe of right foot (4070500179264520 ) Other hammer toe(s) (acquired), right foot (M20.41) Active confirmed Problem Acquired hammer toe of left foot (9638371606798792 ) Other hammer toe(s) (acquired), left foot (M20.42) Active confirmed Problem Polyneuropathy due to type 2 diabetes mellitus (899955568) Type 2 diabetes mellitus with diabetic polyneuropathy (E11.42) Active confirmed Vital Signs Blood pressure diastolic 60 mm Hg 03/23/2025 Height 5 ft 4 in in 03/23/2025 Blood pressure systolic 140 mm Hg 03/23/2025 Weight 195 lbs 03/23/2025 BMI 33.47 kg/m2 03/23/2025 Procedures Procedure Date Ordered Date Performed Result Body Sit e 54861-YMJLSLB NAIL, 6 OR MORE 07/16/2024 N/A 31288-SQKJ SKIN LESIONS, 2 TO 4 07/16/2024 N/A 02916-QMFYQAJ NAIL, 6 OR MORE 03/23/2025 N/A 55509-DWGG SKIN LESIONS, 2 TO 4 03/23/2025 N/A Encounters Encounter Location Date Provider Diagnosis [address] [address] 07/16/2024 Sylvia Nguyễn Type 2 diabetes mellitus with diabetic polyneuropathy E11.42 and Tinea unguium B35.[address] [address] 10/23/2024 Jeanette Messer Type 2 diabetes mellitus with diabetic polyneuropathy E11.42 ; 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 ; Tinea unguium B35.1 ; Pain in right ankle and joints of right foot M25.571 ; Other hammer toe(s) (acquired), right foot M20.41 ; Other hammer toe(s) (acquired), left foot M20.42 and Local edema R60.[address] [address] 03/23/2025 Bishnu Cervantes Type 2 diabetes mellitus with diabetic polyneuropathy E11.42 ; Tinea unguium B35.1 ; Other hammer toe(s) (acquired), right foot M20.41 and Other hammer toe(s) (acquired), left foot M20.[address] [address] 10/14/2024 Sylvia Nguyễn [address] [address] 10/28/2024 Jeanette Messer [address] [place] [address] 12/18/2024 Jeanette Messer [facility] [address] [address] 12/18/2024 Jeanette Chenga [facility] [employer] [address] [place] [address] 03/23/2025 Jeanette Chenga [facility] [address] [address] 06/18/2025 Jeanette Messer Assessments Encounter Date Diagnosis (ICD [...] X ray : Foot, right 3V 10/23/2024 21112-IVWIWZK NAIL, 6 OR MORE 07/16/2024 78677-NDWTDRR NAIL, 6 OR MORE 03/23/2025 47046-ZBUPHJC NAIL, 1-5 05/05/2018 00206-TZITEES NAIL, 1-5 07/21/2018 05644-IKJRKDS NAIL, 1-5 10/13/2018 58670, J0702- INJECT or DRAIN, JOINT/BUR SA 05/05/2018 60302-YXHY SKIN LESIONS, OVER 4 05/05/20 18 46227-JYCD SKIN LESIONS, OVER 4 07/21/20 18 76125-QMYK SKIN LESIONS, OVER 4 01/13/20 19 45315-WQYX SKIN LESIONS, OVER 4 04/13/20 19 03771-VOUF SKIN LESIONS, OVER 4 10/13/19 19 78998-LZQX SKIN LESIONS, OVER 4 12/06/19 21 01702-LDUF SKIN LESIONS, OVER 4 05/08/20 21 60110-WDEY SKIN LESIONS, OVER 4 10/18/19 22 36138-VUZV SKIN LESIONS, OVER 4 08/01/20 20 58839-MHNZ SKIN LESIONS, OVER 4 03/30/20 20 55844-JSVF SKIN LESIONS, OVER 4 07/13/20 19 18213-FLQH SKIN LESIONS, OVER 4 10/12/19 20 56405-YEZG SKIN LESIONS, 2 TO 4 07/16/20 24 52237-FBAV SKIN LESIONS, 2 TO 4 02/20/20 18 79476-UOMP SKIN LESIONS, 2 TO 4 03/23/20 25 68300, W2166-XVMMG/INJECT, JOINT/BURSA 0 10/13/2018 T6794-EYYIKAJP DYSTROPHIC NAILS ANY # X9277-HTGAPUPA DYSTROPHIC NAILS ANY # S4753-BGYKUTON DYSTROPHIC NAILS ANY # O5184-BETSAPUF DYSTROPHIC NAILS ANY # N9927-AUMMQGYX DYSTROPHIC NAILS ANY # P7511-ADWCLFWD DYSTROPHIC NAILS ANY # X3132-BHXQHPQU DYSTROPHIC NAILS ANY # G6519-TKREPPNI DYSTROPHIC NAILS ANY # Q6023-KWNRLVGZ DYSTROPHIC NAILS ANY # 83055- Nail Unit Biopsy 02/19/2018 Insurance Providers Payer Name Payer Address Payer Phone Subscriber Number Group Number Insured Name Patient Relationship to Insured Coverage Start Date Coverage End Date Medicare National [employer] [address] [place] [address] [id number] Kaitlin Ortiz Self - patient is the insured [address] [place] [address] [address] [place] [address] [phone] [id number] Kaitlin Ortiz Self - patient is the [...]
== END 2025-07-13 11:55 | disposition home or self-care (01) ==
LOC: HO.HKA 11:24
PROVIDERS: PCP Physician Assistant; Visit Provider Internal Medicine Hypertension Specialist
DX: I12.9 Hypertensive chronic kidney disease with stage 1 through stage 4 chronic kidney disease, or unspecified chronic kidney disease (principal); N18.9 Chronic kidney disease, unspecified
CPT/HCPCS: 99204

== ENCOUNTER 2025-07-13 11:24 | Outpatient (REF) | payer MEDICARE, OTHER, SELFPAY ==
[2025-07-13 13:47] LABS: Alanine Aminotransferase 8 U/L (0-31); Albumin Level 3.6 g/dL (3.5-5.0); Alkaline Phosphatase 74 U/L (39-117); Anion Gap 13 (12-20); Aspartate Amino Transferase 26 U/L (5-31); Blood Urea Nitrogen 30 mg/dL (9-16); Calcium 9.0 mg/dL (8.4-10.2); Carbon Dioxide 25 mmol/L (22-29); Chloride 106 mmol/L (96-108); Cholesterol 124 mg/dL (<200); Estimated Glomerular Filt Rate 29; HDL Cholesterol 29 mg/dL (>40); Potassium 4.8 mmol/L (3.3-5.1); Sodium 139 mmol/L (135-145); Total Protein 5.7 g/dL (6.5-8.0); Triglycerides 182 mg/dL (<150)
== END 2025-07-13 11:25 | disposition home or self-care (01) ==
LOC: HO.LAB 11:24
PROVIDERS: Absent Provider Physician Assistant; PCP Physician Assistant; Visit Provider Internal Medicine Hypertension Specialist
DX: I12.9 Hypertensive chronic kidney disease with stage 1 through stage 4 chronic kidney disease, or unspecified chronic kidney disease (principal); E11.22 Type 2 diabetes mellitus with diabetic chronic kidney disease; E11.59 Type 2 diabetes mellitus with other circulatory complications; N18.9 Chronic kidney disease, unspecified; I48.0 Paroxysmal atrial fibrillation
CPT/HCPCS: 36415; 80048; 80061; 80076; 83036; 99202

== ENCOUNTER 2025-07-20 12:39 | Outpatient (REF) | payer MEDICARE, OTHER, SELFPAY ==
--- OUTSIDE RECORDS SUMMARY | 2024-02-05 08:15 | XMS_ITS ---
Author Organization [facility] Address [address] [place] [address] Care Team Providers Care Sugar Trucker Name Role Phone NelsonCristina edmondson Primary Care Provider Jeanette De Leon Unavailable [phone] Prosper Cantu Unavailable [phone] REASON FOR VISIT Painful nail(s) aggrevated by shoes and causing difficulty standing/walking. Medications Medication SIG (Take, Route, Frequency, Duration) Notes Start Date End Date Status Voltaren 1 % as directed Externally Active Encounters Encounter Location Date Provider Diagnosis [facility] [address] [place] [address] 02/05/2024 Prosper Cantu Type 2 diabetes mellitus [...] as necessary. Patient chooses, no pharmaceutical tx (82255) Keratoma Treatment Parring or Cutting o f Benign Hyperkeratotic Lesion(s) 47779 ( >4 Lesions) - The Benign hyperkeratotic lesions, as described above were pared, and/or cut utilizing a sterile #15 blade, tissue nippers, and/or dremel Progress Notes * Kaitlin BROWN MDOB:[birth year] (80 yo F)Acc No.[id number]:02/05/2024 Progress Note Patient: Kaitlin URIBE Provider: Parvin Henson DPM :1945 A ge:78 Y S ex:Female Date:02/05/2024 Address:[facility] [place] Pcp:Cristina Damon Subjective: * Chief Complaints: * [...] enies. C ardiovascular: Pacemaker d enies. 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 W PW d enies. C [...] as necessary. Patient chooses, no pharmaceutical tx (21790). K eratoma Treatment: Parring or Cutting of Benign Hyperkeratotic Lesion(s) 1 1057 ( >4 Lesions) - The Benign hyperkeratotic lesions, as described above were pared, and/or cut utilizing a sterile #15 blade, tissue nippers, and/or dremel. * Procedure Codes: 1 1721 DEBRIDE NAIL, 6 OR MORE, Modifiers: XS , 20965 TRIM SKIN LESIONS, OVER 4, Modifiers: XS * Follow Up: 3 Months * Images: * The named appointment provid er may or may not be the originator of this progress note, and it is not deemed complete until electronically signed by the appointment provider. Sign off status: Pending * Provider: Parvin Henson DPM Date: 0 02/05/2024 Generated for Jeny ball/Chance/Pallavi on: 09/19/2024 02:26 PM EST History and Physical Notes * [...]
--- OUTSIDE RECORDS SUMMARY | 2024-10-15 09:45 | XMS_ITS ---
Author Organization [facility] Address [address] [facility] [place] [address] Care Team Providers Care Commercial Coordinator Name Role Phone NelsonCristina edmondson Primary Care Provider Jeanette De Leon Unavailable [phone] Sylvia Nguyễn Unavailable [phone] Allergies Allergen (clinical drug ingredient) Drug/Non Drug [...] Active Encounters Encounter Location Date Provider Diagnosis [facility] [address] [address] 10/15/2024 Sylvia Nguyễn Plan Of Treatment No Information Progress Notes * Kaitlin BROWN MDOB:[birth year] (80 yo F)Acc No.[id number]:10/15/2024 Progress Note Patient: Miguel LAKSHMIROMA Kaitlin Cohen Provider: Sdi Nguyễn DPM :1945 A ge:79 Y S ex:Female Date:10/15/2024 Address:[address] [place], [place] [id number] Pcp:Cristina Damon Subjective: * Chief Complaints: * [...] 0 10/15/2024 Generated for Jeny ball/Chance/Pallavi on: 09/19/2024 02:25 PM EST
--- OUTSIDE RECORDS SUMMARY | 2025-01-22 06:15 | XMS_ITS ---
Author Organization [facility] Address [address] [place] [address] Care Team Providers Care Ethylene Plant Operator Name Role Phone Cristina Damon Primary Care Provider Jeanette De Leon [phone] Encounters Encounter Location Date Provider Diagnosis [facility] [address] [place] [address] 01/22/2025 Jeanette Messer Plan Of Treatment No Information Progress Notes * Kaitlin BROWN MDOB:[birth year] (80 yo F)Acc No.[id number]:01/22/2025 Progress Note Patient: Kaitlin URIBE Provider: Miguel Messer DPM :1945 A ge:79 Y S ex:Female Date:01/22/2025 Address:[facility] [address] [place] Pcp:Cristina Damon Subjective: * Chief Complaints: * * Medical History: Objective: * Vitals: Assessment: Plan: * Treatment: * Images: * The named appointment provid er may or may not be the originator of this progress note, and it is not deemed complete until electronically signed by the appointment provider. Sign off status: Pending * Provider: Miguel Messer DPM Date: 0 01/22/2025 Generated for Hoi ng/Fataneshag/eTransmitting on: 1 09/19/2024 02:26 PM EST
--- OUTSIDE RECORDS SUMMARY | 2025-06-18 05:45 | XMS_ITS ---
Author Organization [facility] Address [address] [place] [address] Care Team Providers Care Steel Detailer Name Role Phone Cristina Damon Primary Care Provider Jeanette De Leon Unavailable [phone] Jose Francisco Dietz Unavailable [phone] Medications Medication SIG (Take, Route, Frequency, Duration) Notes Start Date End Date Status Avinza Active Calcium Active Pregabalin 150 MG 1 capsule Orally Onc e a day Active Extra Depth Orthopedic Shoes (1 Pair) with Customized Heat Molded Multidensity Innersoles (3 Pair) Dx: NIDDM/Polyneuropathy (E11.42), Hammertoe Foot Deformity (M20.41,M20.42), Preulcerative Skin Lesion(s) (L85.1); Duration: 365 days 03/23/2025 Active Victoza Not-Taking Spironolactone 25 MG 1 tablet with food Orally Once a day Active Sulindac 150 MG 1 tablet with food Orally Twice a day Active Omeprazole 20 MG 1 capsule Orally Onc e a day Active Simvastatin 40 MG 1 tablet in the even ing Orally Once a day Active Vitamin D 1000 UNIT 1 tablet Orally Once a day Active metFORMIN HCl Active Nifedical XL Active Imbruvica Active Lorazepam prn Active Furosemide Active Carvedilol 25 MG Orally Act ricarda CeleXA 10 MG 1 tablet Orally Once a day Active DULoxetine HCl 30 MG 1 capsule Orally On ce a day Active Flexeril Active Encounters Encounter Location Date Provider Diagnosis [facility] [address] [place] [address] 06/18/2025 Jose Francisco Dietz Plan Of Treatment No Information Progress Notes * Kaitlin BROWN OB:[birth year] (80 yo F)Acc No.[id number]:06/18/2025 Progress Note Patient: Kaitlin URIBE Provider: Sid Dietz DPM :1945 A ge:79 Y S ex:Female Date:06/18/2025 Address:[address] [place] [address], [facility] Pcp:Cristina Damon Subjective: * Chief Complaints: * * Medical History: * Medications: T aking Pregabalin 150 MG [...] Once a day , Taking Extra Depth Orthopedic Shoes (1 Pair) with Customized Heat Molded Multidensity Innersoles (3 Pair) Dx: NIDDM/Polyneuropathy (E11.42), Hammertoe Foot Deformity (M20.41,M20.42), Preulcerative Skin Lesion(s) (L85.1) , Not-Taking/PRN Victoza Objective: * Vitals: * P ast Orders: L ab:HEMOGLOBIN A1C (GLYCOHEMOGLOBIN) (Order Date - 05/19/2025) (Collection Date & Time - 06/18/2025 09:41 AM) Value Reference Range HEMOGLOBIN A1C % (HH) 6.0 Assessment: Plan: * Treatment: * Images: * The named appointment provid er may or may not be the originator of this progress note, and it is not deemed complete until electronically signed by the appointment provider. Sign off status: Pending * Provider: Sid Dietz, ERNST Date: Generated for Jeny Trent/Pallavi on: 09/19/2024 02:26 PM EST
--- OUTSIDE RECORDS SUMMARY | 2025-06-18 06:15 | XMS_ITS ---
Author Organization [facility] Address [address] [place] [address] Care Team Providers Care Production Support Specialist Name Role Phone Cristina Damon Primary Care Provider Unavailabl Jeanette Weinberg Unavailable [phone] Bishnu Cervantes Unavailable [phone] Merino Encounters Encounter Location Date Provider Diagnosis [facility] [address] [place] [address] 06/18/2025 Bishnu Cervantes Plan Of Treatment No Information Progress Notes * Kaitlin BROWN MDOB:[birth year] (80 yo F)Acc No.[id number]:06/18/2025 Progress Note Patient: Kaitlin URIBE Provider: Kj Cervantes DPM :1945 A ge:79 Y S ex:Female Date:06/18/2025 Address:[facility] [id number] Pcp:Cristina Damon Subjective: * Chief Complaints: * [...] DPM Date: Generated for Printi ng/Fataneshag/eTransmitting on: 1 09/19/2024 02:26 PM EST
--- OUTSIDE RECORDS SUMMARY | 2025-07-20 14:25 | XMS_ITS | Encounter Summary ---
Author Organization [facility] Address [address] [place] [address] Phone Care Team Providers Care Chemistry Instructor Name Role Phone Kathy Connor Primary Care Provider [phone] Ricardo Breen MD Primary Care Provider [phone] Encounter Details Date Type Department Care Team (Late st Contact Info) Description 03/11/2018 Procedure Pass [facility], [address] [address] Social History Tobacco Use Types Packs/Day Years [...] on filedocumented in this encounter Care Teams Chemistry Instructor Relationship Specialty Start Date End Date Kathy Connor PA [email or web address] PCP - General 03/11/18 04/07/18 Ricardo Breen MD [address] [place] [address] Dr [place], [place] [id number] PCP - General Internal Medicine 04/08/18 documented as of this encounter Additional Source Comments The information contained in this document represents components of the legal health record. It is not the complete legal health record.[facility]
--- OUTSIDE RECORDS SUMMARY | 2025-07-20 14:25 | XMS_ITS | Encounter Summary ---
Author Organization [facility] Address [address] [place] [address] [place] [address] Phone Care Team Providers Care Plastic Boat Patcher Name Role Phone Kathy Connor Primary Care Provider [phone] Ellen Breen MD Primary Care Provider [phone] Reason for Referral * MRI/CAT Scan - Closed Specialty Diagnoses / Procedures Referred By Contiveth t Referred To Contact Radiology Diagnoses Cervical spinal stenosis Procedures MRI Cervical Spine Kathy Connor PA Phone: tel: fax: mailto:[email or web address] Referral ID Status Reason Start Date Expiration Date Visits Re quested Visits Authorized [id number] Closed 03/11/2018 03/11/2019 1 1 Encounter Details Date Type Department Care Team (Late st Contact Info) Description 03/11/2018 Ancillary Orders Virtual Department [address] [place] [address] Kathy Connor PA [address] [place] [address] [email or web address] Cervical spinal stenosis Social History Tobacco Use [...] advanced degenerative changes as outlined. POS - [id number] Narrative 03/19/2018 4:08 PM EDT COMPARISON: 03/03/2015. [...] advanced degenerative changes as outlined. POS - [id number] Kathy LEONARDO IMG MR XSPECIALTY Final Res ult documented in this encounter Visit Diagnoses Diagnosis Cervical spinal stenosis Spinal stenosis in cervical region Cervical spinal stenosis Spinal stenosis in cervical region documented in this encounter Care Teams Plastic Boat Patcher Relationship Specialty Start Date End Date Kathy Connor PA [email or web address] PCP - General 03/11/18 04/07/18 Ellen Breen MD [address] [place] [address] [place] [address] PCP - General Internal Medicine 04/08/18 documented as of this encounter Additional Source Comments The information contained in this document represents components of the legal health record. It is not the complete legal health record.[facility]
--- OUTSIDE RECORDS SUMMARY | 2025-07-20 14:26 | XMS_ITS | Encounter Summary ---
Author Organization [facility] Address [address] [place] [address] Phone Care Team Providers Care Dean Of Chapel Name Role Phone Ricardo Breen MD Primary Care Provider [phone] Encounter Details Date Type Department Care Team (Late st Contact Info) Description 06/29/[address] [facility], [address] [address] Social History Tobacco Use Types Packs/Day Years [...] on filedocumented in this encounter Care Teams Dean Of Chapel Relationship Specialty Start Date End Date Ricardo Breen MD [address] [place] [address] Dr CONNOR [address] [place] [address] PCP - General Internal Medicine 04/08/18 documented as of this encounter Additional Source Comments The information contained in this document represents components of the legal health record. It is not the complete legal health record.[facility]
--- OUTSIDE RECORDS SUMMARY | 2025-07-20 14:26 | XMS_ITS | Encounter Summary ---
Author Organization [facility] Address [address] [place] [address] [place] [address] Phone Care Team Providers Care Perch Mender Name Role Phone Ricardo Breen MD Primary Care Provider Reason for Referral * MRI/CAT Scan - Closed Specialty Diagnoses / Procedures Referred By Yasir t Referred To Contact Radiology Diagnoses Lumbar radiculopathy Procedures MRI Lumbar Spine Rolando Tomas DO Phone: tel: fax: mailto:[email or web address] Referral ID Status Reason Start Date Expiration Date Visits Re quested Visits Authorized [id number] Closed 06/29/2021 06/29/2022 1 1 Encounter Details Date Type Department Care Team (Latest Contact Info) Description 06/29/2021 Ancillary Orders Virtual Department [address] [place] [address] Rolando Tomas DO [address] [place] [address] [email or web address] Lumbar radiculopathy Social History Tobacco Use Types [...] be performed for further evaluation. POS - [id number] Narrative 07/13/2021 8:26 AM EDT HISTORY: Chronic [...] could be performedfor further evaluation. POS - [id number] us Rolando Tomas DO IMG MR XSPECIALTY Final Resu lt documented in this encounter Visit Diagnoses Diagnosis Lumbar radiculopathy Thoracic or lumbosacral neuritis or radiculitis, unspecified Lumbar radiculopathy Thoracic or lumbosacral neuritis or radiculitis, unspecified documented in this encounter Care Teams Perch Mender Relationship Specialty Start Date End Date Ricardo Breen MD [address] [place] [address] [place] [address] PCP - General Internal Medicine 04/08/18 documented as of this encounter Additional Source Comments The information contained in this document represents components of the legal health record. It is not the complete legal health record.[facility]
--- OUTSIDE RECORDS SUMMARY | 2025-07-20 14:26 | XMS_ITS | Encounter Summary ---
Author Organization [facility] Address [address] [place] [address] Care Team Providers Care Coin Box Inspector Name Role Phone Jamshid Ricardo Jayla Primary Care Provider [phone] Encounter Details Date Type Department Care Team (Late st Contact Info) Description 02/10/2025 Documentation [facility] Case Management Department [address] [place] [address] Rachel Anaya Social History Tobacco Use Types Packs/Day Years Used Date Smoking Tobacco: Never Smokeless Tobacco: Never Alcohol Use Standard Drinks/Week Comments Never 0 (1 standard drink = 0.6 oz pur e alcohol) [facility] Utilities Answer Date Recorded In the [...] Info) Description 08/25/2025 9:15 AM EST Follow-Up [facility] [address] [place] [address] Murali Hooker MD [address] [place] [address] documented as of this encounter Goals Goal Patient Goal Type Associated Problems Recent Progress Patient-Stated? Author Autogenera gaby Goal Care Plan Autogenerated Problem Rachel Hammonds documented as of this encounter Visit Diagnoses Not on filedocumented in this encounter Additional Health Concerns Active Problems Noted Date Diagnosed Date Autogenerated Problem 01/20/2025 documented as of this encounter Care Teams Coin Box Inspector Relationship Specialty Start Date End Date Ricardo Breen [address] [place] [address] [place] [address] PCP - General Internal Medicine 01/26/25 documented as of this encounter
--- OUTSIDE RECORDS SUMMARY | 2025-07-20 14:26 | XMS_ITS | Clinical Summary ---
Author Organization [facility] Address [address] [place] [address] Phone Care Team Providers Care Judicial Assistant Name Role Phone Ricardo Breen MD [...] file Insurance MEDICARE PART A & B [facility] MEDICARE SUPPLEMENT MEDICARE PART A & B [facility] MEDICARE SUPPLEMENT MEDICARE PART A & B Member Subscriber Plan / Payer (Ef fective 2008-Present) Name:Jeri Brown Member ID:[id number] Relation to Subscriber:Self Name:Jeri Brown Subscriber ID:[id number] Payer ID:[id number] Group ID:Not on file Type:Medicare Address: [facility] [employer] [place] [id number] MEDICARE SUPPLEMENT MEDICARE PART A & B [facility] MEDICARE SUPPLEMENT MEDICARE PART A & B [facility] MEDICARE SUPPLEMENT MEDICARE PART A & B MEDICARE SUPPLEMENT MEDICARE PART A & B [facility] MEDICARE SUPPLEMENT MEDICARE PART A & [place] [id number] [facility] MEDICARE SUPPLEMENT MEDICARE PART A & B [facility] MEDICARE SUPPLEMENT Care Teams Judicial Assistant Relationship Specialty Start Date End Date Ricardo Breen MD [address] [place] [address] PCP - General Internal Medicine 04/08/18 Additional Source Comments The information contained in this document represents components of the legal health record. It is not the complete legal health record.[facility]
--- OUTSIDE RECORDS SUMMARY | 2025-07-20 14:26 | XMS_ITS | Patient Health Record ---
Author Organization [facility] Address [address] [place] [address] Care Team Providers Care Crib Attendant Name Role Phone Cristina Damno Primary Care Provider UnavailJeanette Santoro Unavailable [phone] Bishnu Cervantes Unavailable [phone] Sylvia Nguyễn Unavailable [phone] Jose Francisco Dietz Unavailable [phone] Allergies Allergen (clinical drug ingredient) Drug/Non Drug [...] Problem Acquired hammer toe of right foot (9852607842130716 ) Other hammer toe(s) (acquired), right foot (M20.41) Active confirmed Problem Acquired hammer toe of left foot (5835841603596289 ) Other hammer toe(s) (acquired), left foot (M20.42) Active confirmed Problem Polyneuropathy due to type 2 diabetes mellitus (448189633) Type 2 diabetes mellitus with diabetic polyneuropathy (E11.42) Active confirmed Vital Signs Blood pressure diastolic 60 mm Hg 03/23/2025 Height 5 ft 4 in in 03/23/2025 Blood pressure systolic 140 mm Hg 03/23/2025 Weight 195 lbs 03/23/2025 BMI 33.47 kg/m2 03/23/2025 Procedures Procedure Date Ordered Date Performed Result Body Sit e 31200-TZRGGBX NAIL, 6 OR MORE 03/23/2025 N/A 02327-PYGP SKIN LESIONS, 2 TO 4 03/23/2025 N/A Encounters Encounter Location Date Provider Diagnosis [address] [address] 10/23/2024 Jeanette Messer Type 2 diabetes mellitus with diabetic polyneuropathy E11.42 ; 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 ; Tinea unguium B35.1 ; Pain in right ankle and joints of right foot M25.571 ; Other hammer toe(s) (acquired), right foot M20.41 ; Other hammer toe(s) (acquired), left foot M20.42 and Local edema R60.[address] [address] 03/23/2025 Bishnu Cervantes Type 2 diabetes mellitus with diabetic polyneuropathy E11.42 ; Tinea unguium B35.1 ; Other hammer toe(s) (acquired), right foot M20.41 and Other hammer toe(s) (acquired), left foot M20.[address] [address] 10/14/2024 Sylvia Nguyễn [address] [address] 10/28/2024 Jeanette Messer [address] [address] 12/18/2024 Jeanette Messer [address] [address] 12/18/2024 Jeanette Messer [address] [address] 03/23/2025 Jeanette Messer [place] [address] [place] [address] 06/18/2025 Jeanette Messer Assessments Encounter Date Diagnosis [...] X ray : Foot, right 3V 10/23/2024 26924-TWFAHXK NAIL, 6 OR MORE 07/16/2024 08756-KCNBQHG NAIL, 6 OR MORE 03/23/2025 29743-TYTZUGW NAIL, 1-5 05/05/2018 01815-OXTAYJP NAIL, 1-5 07/21/2018 70900-LNRKTAF NAIL, 1-5 10/13/2018 49863, J0702- INJECT or DRAIN, JOINT/BUR SA 05/05/2018 57728-PSTV SKIN LESIONS, OVER 4 05/05/20 18 05091-EQHT SKIN LESIONS, OVER 4 07/21/20 18 09083-MRXW SKIN LESIONS, OVER 4 01/13/20 19 10639-YHOV SKIN LESIONS, OVER 4 04/13/20 19 49326-IGGR SKIN LESIONS, OVER 4 10/13/19 19 16087-BEHI SKIN LESIONS, OVER 4 12/06/19 21 95868-MLLF SKIN LESIONS, OVER 4 05/08/20 21 69994-RNCQ SKIN LESIONS, OVER 4 10/18/19 22 21591-CFPK SKIN LESIONS, OVER 4 08/01/20 20 04742-VZGZ SKIN LESIONS, OVER 4 03/30/20 20 91245-VIRY SKIN LESIONS, OVER 4 07/13/20 19 06601-TYVQ SKIN LESIONS, OVER 4 10/12/19 20 60054-QAEV SKIN LESIONS, 2 TO 4 07/16/20 24 23846-EVWX SKIN LESIONS, 2 TO 4 02/20/20 18 37108-KFBS SKIN LESIONS, 2 TO 4 03/23/20 25 47833, N4735-XCMCR/INJECT, JOINT/BURSA 0 10/13/2018 J0550-BVLOVGAJ DYSTROPHIC NAILS ANY # W1014-YPGFFAXY DYSTROPHIC NAILS ANY # E5957-JFIMNJRS DYSTROPHIC NAILS ANY # P0533-QRGYGGUE DYSTROPHIC NAILS ANY # J7271-RSVJAPXD DYSTROPHIC NAILS ANY # A4236-BVDPQOQD DYSTROPHIC NAILS ANY # S3340-BLYVPFBS DYSTROPHIC NAILS ANY # X4286-SFVPUPTR DYSTROPHIC NAILS ANY # D7274-JSNZMLHF DYSTROPHIC NAILS ANY # 95571- Nail Unit Biopsy 02/19/2018 Insurance Providers Payer Name Payer Address Payer Phone Subscriber Number Group Number Insured Name Patient Relationship to Insured Coverage Start Date Coverage End Date Medicare National [employer] [address] [place] [address] [id number] Kaitlin Ortiz Self - patient is the insured [address] [place] [address] [address] [place] [address] [id number] Kaitlin Ortiz Self - patient is the [...]
--- OUTSIDE RECORDS SUMMARY | 2025-07-20 14:26 | XMS_ITS | Encounter Summary ---
Author Organization [facility] Address [address] [facility] [address] [place], [place] [id number] Phone Care Team Providers Care Salesforce Developer Name Role Phone Ricardo Breen MD Primary Care Provider Encounter Details Date Type Department Care Team (Late st Contact Info) Description 04/08/2018 Ancillary Orders [facility], X-Ray - [address] [address] Brannon Perea MD [address] [place] [address] [email or web address] Cervical spondylosis without myelopathy Social History Tobacco [...] 3 mm of retrolisthesis of C4 on O7eejji does not change appreciably in flexion but [...] myelopathy documented in this encounter Care Teams Salesforce Developer Relationship Specialty Start Date End Date Ricardo Breen MD [address] [place] [address] Dr [place], [place] [address] PCP - General Internal Medicine 04/08/18 documented as of this encounter Additional Source Comments The information contained in this document represents components of the legal health record. It is not the complete legal health record.[facility]
--- OUTSIDE RECORDS SUMMARY | 2025-07-20 14:26 | XMS_ITS | Encounter Summary ---
Author Organization [facility] Address [address] [place] [address] Phone Care Team Providers Care Casino Floor Supervisor Name Role Phone Ricardo Breen MD Primary Care Provider Encounter Details Date Type Department Care Team (Late st Contact Info) Description 06/05/2022 Procedure Pass [facility], [address] [address] Social History Tobacco Use Types Packs/Day Years [...] on filedocumented in this encounter Care Teams Casino Floor Supervisor Relationship Specialty Start Date End Date Ricardo Breen MD [address] [place] [address] Dr CONNOR [address] [place] [address] PCP - General Internal Medicine 04/08/18 documented as of this encounter Additional Source Comments The information contained in this document represents components of the legal health record. It is not the complete legal health record.[facility]
--- OUTSIDE RECORDS SUMMARY | 2025-07-20 14:26 | XMS_ITS | Encounter Summary ---
Author Organization [facility] Address [address] [place] [address] Phone Care Team Providers Care Applications Development Consultant Name Role Phone Ricardo Breen MD Primary Care Provider [phone] Reason for Referral * MRI/CAT Scan - Closed Specialty Diagnoses / Procedures Referred By Yasir t Referred To Contact Radiology Diagnoses Post laminectomy syndrome Procedures MRI Lumbar Spine Rolando Tomas DO Phone: tel: fax: [email or web address]:[email or web address] Referral ID Status Reason Start Date Expiration Date Visits Re quested Visits Authorized [id number] Closed 06/05/2022 06/05/2023 1 1 Encounter Details Date Type Department Care Team (Latest Contact Info) Description 06/05/2022 Transcribe Orders Virtual Department [address] [place] [address] Rolando Tomas DO [address] [place] [address] [email or web address] Post laminectomy syndrome (Primary Dx) Social History [...] region documented in this encounter Care Teams Applications Development Consultant Relationship Specialty Start Date End Date Ricardo Breen MD [address] [place] [address] Dr [place], [place] [address] PCP - General Internal Medicine 04/08/18 documented as of this encounter Additional Source Comments The information contained in this document represents components of the legal health record. It is not the complete legal health record.[facility]
--- OUTSIDE RECORDS SUMMARY | 2025-07-20 14:27 | XMS_ITS | Clinical Summary ---
Author Organization [facility] Address [address] [place] [address] Care Team Providers Care Searchlight Operator Name Role Phone Ricardo Breen Primary Care Provider [phone] Allergies Active Allergy Reactions Criticality Noted Date [...] Team Description 07/12/2025 9:15 AM EST Follow-Up [facility] [address] [place] [phone] Murali Hooker MD 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 (Primary Dx) 06/28/2025 8:58 AM EDT - 06/28/2025 11:59 PM EDT Hospital Encounter [facility] Xray [address] [place], [place] [id number] 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; Left hip pain Discharge Disposition: Home or Self Care (01) 06/28/2025 8:45 AM EDT Follow-Up [facility] [address] [place] [address] ArlynMurali PA Left hip pain (Primary Dx) 06/04/2025 Orders Only [facility] [address] [place] [address] Form Tamper: Adeola Ernandez NP 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, initial encounter (Primary Dx); Staphylococcal infection 05/25/2025 Telephone [facility] [address] [place] [address] Form Tamper: Adeola Ernandez NP 05/25/2025 Telephone [facility] [address] [place] [address] Form Tamper: Adeola Ernandez NP 04/27/2025 Telephone [facility] [address] [place] [address] Form Tamper: Adeola Ernandez NP 04/20/2025 Telephone [facility] [address] [place] [address] Form Tamper: Edda Santos Telephone Intake, Staff PAC Patient Request Call Back from Last 3 Months Family History Medical [...] drink = 0.6 oz pur e alcohol) [facility] Utilities Answer Date Recorded In the past 12 months has [employer], gas, oil, or water [employer] threatened to shut off services in your [...] Info) Description 08/25/2025 9:15 AM EST Follow-Up [facility] [address] [place] [address] Murali Hooker MD [address] [place] [address] Health Maintenance Due Date Last Done Comments [...] Drivers of Health Annual Screening 01/26/2026 01/26/2025 Fall Risk Screening 03/08/2026 03/08/2025 Hemoglobin 06/01/2026 06/01/2025, 0803/2025, 04/23/2025, Additional history exists Pneumococcal Vaccine: 50+ Years Completed 05/26/2016, 04/29/2014 Influenza Vaccine Completed 06/09/2025, , 06/09/2024, Additional history exists Hepatitis B Vaccines Aged Out No long er eligible based on patient's age to complete this topic Goals Goal Patient Goal Type Associated Problems Recent Progress Patient-Stated? Author Autogenera gaby Goal Care Plan Autogenerated Problem No Rachel Villatoro Medical Devices Implanted Type Area Manager Mail Device Identifier Shelf Expiration Date Model / Serial / Lot Cement Radiopaque Full Dose 40gr Simplex P - [id number] Implanted:Qty: 2 on 01/26/2025 by Murali Hooker MD at [facility] Implant Left: Hip JACLYN 07/09/2026 [id number] / / [id number] Insert Acetabular Eccentric 36mm 10 Degree Trident X3 - [id number] Implanted:Qty: 1 on 01/26/2025 by Murali Hooker MD at [facility] Implant Left: Hip JACLYN 04/15/2029 [id number] / / [id number] Head Femoral Anatomic V40 Vitallium Cocr Plus [id number] Lfit - [id number] Implanted:Qty: 1 on 01/26/2025 by Murali Hooker MD at [facility] Implant Left: Hip JACLYN 02/07/2028 [id number] / / [id number] Procedures * Due to [place] state law, this organization might not be [...] Last 3 Months Results * Due to [place] state law, this organization might not be [...] to obtain the completed interpretation. Workstation ID: [id number] Narrative 06/28/2025 11:03 AM EDT COMPARISON: 02/12/2025. FINDINGS AND Resulting Agency Comment [id number] Procedure Note Jose A Luong MD - [...] possible to obtain thecompleted interpretation. Workstation ID: [id number] us Murali Hooker MD IMG XR PROCEDURES Final Res ult * (ABNORMAL) CBC Auto Differential (06/01/2025 1:38 PM EDT) Only the most recent of3 resultswithin the time period is included. White Blood Cell Count 7.8 3.8 - 10.8 Thousand/ uL 06/02/2025 4:58 AM [facility] Red Blood Cell Count 3.71(L) 3.80 - 5.10 Million/u L 06/02/2025 4:58 AM [facility] Hemoglobin 11.2(L) 11.7 - 15.5 g/dL 06/02/2025 4:58 AM [facility] Hematocrit 35.9 35.0 - 45.0 % 06/02/2025 4:58 AM [facility] MCV 96.8 80.0 - 100.0 fL 06/02/2025 4:58 AM [facility] MCH 30.2 27.0 - 33.0 pg 06/02/2025 4:58 AM [facility] MCHC 31.2(L) 32.0 - 36.0 g/dL 06/02/2025 4:58 AM [facility] Comment: For adults, a slight decrease in the calculated MCHC value (in the range of 30 to 32 g/dL) is most likely not clinically significant; however, it should be interpreted with caution in correlation with other red cell parameters and the patient's clinical condition. RDW 14.3 11.0 - 15.0 % 06/02/2025 4:58 AM EDT [facility] Platelet Count 114(L) 140 - 400 Thousand/ uL 06/02/2025 4:58 AM EDT [facility] MPV 12.2 7.5 - 12.5 fL 06/02/2025 4:58 AM EDT [facility] Absolute Neutrophils 4,774 1,500 - 7,800 cells/uL 06/02/2025 4:58 AM EDT [facility] Absolute Lymphocytes 2,059 850 - 3,900 cells/uL 06/02/2025 4:58 AM EDT [facility] Absolute Monocytes 866 200 - 950 cells/uL 06/02/2025 4:58 AM EDT [facility] Absolute Eosinophils 62 15 - 500 cells/uL 06/02/2025 4:58 AM EDT [facility] Absolute Basophils 39 0 - 200 cells/uL 06/02/2025 4:58 AM EDT [facility] Neutrophils 61.2 % 06/02/2025 4:58 AM EDT [facility] Lymphocytes 26.4 % 06/02/2025 4:58 AM EDT [facility] Monocytes 11.1 % 06/02/2025 4:58 AM EDT [facility] Eosinophils 0.8 % 06/02/2025 4:58 AM EDT [facility] Basophils 0.5 % 06/02/2025 4:58 AM EDT [facility] Blood Structure of peripheral vein / Unknown 06/01/2025 1:38 PM EDT 06/02/2025 3:22 AM EDT Narrative [facility] - 06/02/2025 5:42 AM EDT FASTING:NO us Adeola Miller PRODUCT ARCHITECT LAB BLOOD ORDERABLES Final Res ult [facility] [address] [place] [address] 3rd Floor, [place] [address], [facility] [address] [address] * Sedimentation Rate (06/01/2025 1:38 PM EDT) Only the most recent of2 resultswithin the time period is included. Sed Rate By Modified Westergren 25 0 - 30 mm/h 06/02/2025 4:51 AM EDT [facility] Blood Structure of peripheral vein / Unknown 06/01/2025 1:38 PM EDT 06/02/2025 3:54 AM EDT Narrative [facility] - 06/02/2025 5:42 AM EDT FASTING:NO Adeola Su Paul PRODUCT ARCHITECT LAB BLOOD ORDERABLES Final Res ult Performing Organization Address City/[facility] Co de Phone Number [facility] [address] [address], [place] [phone] [address] * C-Reactive Protein (06/01/2025 1:38 PM EDT) Only the most recent of2 resultswithin the time period is included. [facility] C-Reactive Protein 6.6 <8.0 mg/L 06/02/2025 4:10 AM EDT [facility] Blood Structure of peripheral vein / Unknown 06/01/2025 1:38 PM EDT 06/02/2025 2:42 AM EDT Narrative [facility] - 06/02/2025 5:42 AM EDT FASTING:NO Adeola Miller PRODUCT ARCHITECT LAB BLOOD ORDERABLES Final Res ult Performing Organization Address [facility] Co de Phone Number [facility] [address] [place] [address], [place] [phone] [address] * (ABNORMAL) Comprehensive Metabolic Panel (06/01/2025 1:38 PM EDT) Only the most recent of3 resultswithin the time period is included. [facility] Glucose 148(H) 65 - 139 mg/dL 06/02/2025 5:40 AM EDT [facility] Comment: Non-fasting reference interval BUN 28(H) 7 - 25 mg/dL 06/02/2025 5:40 AM [facility] Creatinine 1.80(H) 0.60 - 1.00 mg/dL 06/02/2025 5:40 AM [facility] eGFR 28(L) > OR = 60 mL/min/1. 73m2 06/02/2025 5:40 AM [facility] Bun/Creatinine Ratio 16 6 - 22 (calc) 06/02/2025 5:40 AM [facility] Sodium 138 135 - 146 mmol/L 06/02/2025 5:40 AM [facility] Potassium 4.9 3.5 - 5.3 mmol/L 06/02/2025 5:40 AM [facility] Chloride 101 98 - 110 mmol/L 06/02/2025 5:40 AM [facility] Carbon Dioxide 28 20 - 32 mmol/L 06/02/2025 5:40 AM [facility] Calcium 9.4 8.6 - 10.4 mg/dL 06/02/2025 5:40 AM [facility] Protein, Total 5.9(L) 6.1 - 8.1 g/dL 06/02/2025 5:40 AM [facility] Albumin 4.0 3.6 - 5.1 g/dL 06/02/2025 5:40 AM [facility] Globulin 1.9 1.9 - 3.7 g/dL (calc) 06/02/2025 5:40 AM [facility] Albumin/Globuli n Ratio 2.1 1.0 - 2.5 (calc) 06/02/2025 5:40 AM [facility] Bilirubin, Total 0.5 0.2 - 1.2 mg/dL 06/02/2025 5:40 AM [facility] Alkaline Phosphatase 56 37 - 153 U/L 06/02/2025 5:40 AM [facility] AST 14 10 - 35 U/L 06/02/2025 5:40 AM [facility] ALT 11 6 - 29 U/L 06/02/2025 5:40 AM [facility] Blood Structure of peripheral vein / Unknown 06/01/2025 1:38 PM EDT 06/02/2025 2:42 AM EDT Narrative [facility] - 06/02/2025 5:42 AM EDT FASTING:NO us Adeola Miller PRODUCT ARCHITECT LAB BLOOD ORDERABLES Final Res ult [facility] [address] [facility] [address], [place] [address], [employer] [address] [place] [address] from Last 3 Months Additional Health Concerns Active Problems Noted Date Diagnosed Date Autogenerated Problem 01/20/2025 Insurance MEDICARE [facility] * Guarantor: KAITLIN BROWN Account Type Relation to Patient Date of Phone Billing Address Personal/Family MEDICARE [facility] Advance Directives * Full Code (Latest Code Status on File) Date Activated Date Inactivated Comments 01/26/2025 10:59 AM 02/05/2025 3:20 PM * Full Code Date Activated Date Inactivated Comments 01/26/2025 5:58 AM 01/26/2025 10:59 AM Care Teams Searchlight Operator Relationship Specialty Start Date End Date Ricardo Breen [address] [place] [address] [place] [address] PCP - General Internal Medicine 01/26/25
[2025-07-20 14:48] LABS: Alanine Aminotransferase 11 U/L (0-31); Albumin Level 3.8 g/dL (3.5-5.0); Alkaline Phosphatase 81 U/L (39-117); Anion Gap 14 (12-20); Aspartate Amino Transferase 18 U/L (5-31); Blood Urea Nitrogen 27 mg/dL (9-16); Calcium 9.4 mg/dL (8.4-10.2); Carbon Dioxide 25 mmol/L (22-29); Chloride 106 mmol/L (96-108); Estimated Glomerular Filt Rate 33; Potassium 5.0 mmol/L (3.3-5.1); Sodium 140 mmol/L (135-145); Total Protein 6.1 g/dL (6.5-8.0)
== END 2025-07-20 12:40 | disposition home or self-care (01) ==
LOC: HO.LAB 12:39
PROVIDERS: PCP Physician Assistant; Visit Provider Physician Assistant
DX: Z51.81 Encounter for therapeutic drug level monitoring (principal)
CPT/HCPCS: 36415; 80048; 80076

== ENCOUNTER 2025-07-23 10:55 | Outpatient (AMB) | payer MEDICARE, OTHER, SELFPAY ==
--- NOTE | 2025-07-23 11:05 | MHC.OFFVIS ---
Vital Signs 07/23/25 11:11 Pulse 55 Pulse Source Pulse Oximeter Pulse Oximetry (%) 98 Intake Visit Reasons: CASING MIXER ID reff/candidiasis of skin and nail Allergies amoxicillin (AMOXICILLIN) Allergy (Severe, Verified 07/23/25 11:11) stroke, blood clots ciprofloxacin (From CIPRO) Allergy (Severe, Verified 07/23/25 11:11) ANAPHYLAXIS Iodinated Contrast Media (IV DYE, IODINE CONTAINING CONTRAST ) Allergy (Severe, Verified 07/23/25 11:11) HIVES levofloxacin Allergy (Severe, Verified 07/23/25 11:11) Anaphylaxis liraglutide Allergy (Severe, Verified 07/23/25 11:11) Headache Penicillins Allergy (Severe, Verified 07/23/25 11:11) stroke, blood clots FREYA Inhibitors Allergy (Intermediate, Verified 07/23/25 11:11) Cough ARB-Angiotensin Receptor Antagonist Allergy (Intermediate, Verified 07/23/25 11:11) Cough cefpodoxime Allergy (Intermediate, Verified 07/23/25 11:11) Dizziness, nausea doxazosin Allergy (Intermediate, Verified 07/23/25 11:11) Shortness of Breath fluticasone (Advair Diskus) Allergy (Intermediate, Verified 07/23/25 11:11) Anxiety gabapentin (From Neurontin) Allergy (Intermediate, Verified 07/23/25 11:11) Headache hydralazine Allergy (Intermediate, Verified 07/23/25 11:11) Shortness of Breath latex Allergy (Intermediate, Verified 07/23/25 11:11) Hives linezolid Allergy (Intermediate, Verified 07/23/25 11:11) Nausea and Vomiting meloxicam Allergy (Intermediate, Verified 07/23/25 11:11) Unknown salmeterol (Advair Diskus) Allergy (Intermediate, Verified 07/23/25 11:11) Anxiety Tetanus Vaccines and Toxoid Allergy (Intermediate, Verified 07/23/25 11:11) Swelling torsemide Allergy (Intermediate, Verified 07/23/25 11:11) Shortness of Breath cephalexin (Keflex) Allergy (Mild, Verified 07/23/25 11:11) Nausea HPI Comments Details: History of Present Illness The patient is a 80-year-old female presenting with an ongoing groin rash characterized by presumed fungal infection, malodor, itching, and satellite lesions in the groin and vaginal area that has persisted for several months. She was treated with a course of fluconazole for one week to ten days without significant improvement. Her past medical history includes Chronic Lymphocytic Leukemia for which she is on Ibrutinib, oral candidiasis, diabetes mellitus, and a periprosthetic fracture. She has had recurrent urinary infections and currently has a suprapubic catheter due to urine leakage and infection concerns, accompanied by irritation and slight leakage in the suprapubic and urethral area that may aggravate the rash. Review of Systems - Skin: Reports rash with malodor and itching in the groin and vaginal area. - Genitourinary: Reports urinary leakage and irritation around the suprapubic catheter. - General: Denies fever, fatigue, weight loss. - Respiratory: Denies shortness of breath or cough. - Cardiovascular: Denies chest pain or palpitations. Physical Exam - Vital Signs- Stable - HEENT- Oropharynx clear - Respiratory- Lungs clear - Cardiovascular- Heart with straight rhythm - Abdomen- Soft and nontender - Musculoskeletal- Extremities nontender - Neurological- Nonfocal - Skin- Positive for bleeding, itching, soniya-appearing lesions in groin Results Plan Patient was informed and verbally consented to the use of an ambient scribe for clinic note documentation during this visit. 1. Fungal Rash With Malodor And Itching The patient is advised to initiate caspofungin IV treatment for a likely resistant fungal infection. Evaluate improvement after 14 days. Consider dermatology referral for alternative management if symptoms persist. 2. Urinary Infections With Suprapubic Catheter Ongoing management of urinary infection includes ensuring catheter hygiene to prevent additional skin irritation. Follow up to monitor the condition and adjust care as needed. Discussion Notes I explained to the patient that the current groin rash appears to be a resistant fungal infection. The proposed plan is to begin intravenous caspofungin for antifungal therapy, with the understanding that we will reevaluate after 14 days to assess treatment efficacy. Additionally, I discussed the importance of catheter care to minimize further skin irritation and infection risk. Any lack of improvement or worsening symptoms will warrant dermatology referral. Consent was obtained for the outlined treatment, and the patient voiced understanding and agreement with the plan. Medical Decision Making My decision to initiate caspofungin therapy is based on the lack of response to oral fluconazole, suggesting possible resistance in this fungal rash. Given the patient?s medical history, including CLL and immunosuppressive treatment with Ibrutinib, a more aggressive antifungal approach is justified. The aim is to reduce infection and alleviate itching and satellite lesions. Careful monitorization and follow-up are necessary to ensure therapeutic outcomes, with a dermatology consult if improvement is insufficient. She cant take itraconazole or voriconazole due to CYP 450 interaction with ibrutininib causing ibrutinib increased levels. Patient Instructions - Begin caspofungin IV treatment as directed. - Maintain proper hygiene in the groin and catheter area to prevent irritation. - Notify if no improvement within two weeks or if symptoms worsen. - Return for follow-up in three weeks for evaluation of treatment effectiveness.Try topical steroids and if they dont work Dermatology for irritant dermatitis groin. [facility] Medical History (Updated 07/06/25 @ 12:31 by MALISSA Bustillos) Type 2 diabetes mellitus with unspecified complications Diabetes PAF (paroxysmal atrial fibrillation) PAF (paroxysmal atrial fibrillation) Suprapubic catheter Neuropathy Osteoarthritis Morbid obesity Allergy to multiple antibiotics Depression Arthritis of left hip Wears dentures Neurogenic urinary bladder disorder History of blood transfusion History of CVA (cerebrovascular accident) Seasonal allergies PONV (postoperative nausea and vomiting) Diabetes with neurologic complications Anemia CLL (chronic lymphocytic leukemia) Sleep apnea Arthritis Fibromyalgia Hypercholesterolemia Hypertension History of bilateral breast cancer Urinary retention with incomplete bladder emptying Surgical History (Updated 06/22/25 @ 00:02 by Laura Diaz) History of cervical discectomy History of open heart surgery (~01/31/24) History of total left hip replacement S/P Botox injection History of suprapubic catheter S/P left breast biopsy History of esophagogastroduodenoscopy (EGD) Hx of colonoscopy (~09/04/21) History of bladder repair surgery History of total hysterectomy S/P breast biopsy, right History of back surgery History of biopsy of bladder Family History Mother Breast cancer Father Heart disease Father Lung cancer Mother Colon cancer Brother Pancreatic cancer Social History Household Members: Spouse Housing: House Housing Other:: has chair lift for second floor access Are you a primary behavioral health care coordinator to a significant other at home: No Do you presently have visiting nurse or other home services: No Alcohol intake: never Comment: patient refused telesiter,removed per pt request Patient Tobacco Use Status: Never used Tobacco e-Cigarette/Vaping Use: Never Used Advance Directives Date on File: 07/30/23 service: No Current occupational status: retired Female Reproductive History Menstrual Age of Menarche: 15 Physical Exam Vital Signs: Last Vital Signs Pulse 55 07/23/25 11:11 Pulse Ox 98 07/23/25 11:11 Assessment & Plan Assessment & Plan (1) group home (current) use of antibiotics: Code(s): Z79.2 - group home (current) use of antibiotics Category: Medical (2) Oral candidiasis: Code(s): B37.0 - Candidal stomatitis Category: Medical Plan as below Medications: New caspofungin give 70 mg dose IV x1 day and then 50 mg IV daily for 13 days 50 mg IV Q24H resistant soniya groin 13 days caspofungin 50 mg IV Q24H Coding Level of Care Code New Pt Level 3 (20994) Diagnoses group home (current) use of antibiotics Z79.2 Oral candidiasis B37.0
[2025-07-23 11:11] VITALS: PULSE 55; O2SAT 98
== END 2025-07-23 12:48 | disposition home or self-care (01) ==
LOC: HO.HID 10:55
PROVIDERS: PCP Physician Assistant; Visit Provider Internal Medicine
DX: Z79.2 Long term (current) use of antibiotics (principal); B37.0 Candidal stomatitis
CPT/HCPCS: 99213

== ENCOUNTER → 2025-07-23 10:55 | Outpatient (BNVA) | payer MEDICARE, OTHER, SELFPAY | PROVIDERS: PCP Physician Assistant; Visit Provider Internal Medicine | DX: B37.0 Candidal stomatitis (principal); Z79.2 Long term (current) use of antibiotics | CPT/HCPCS: 99212 ==

== ENCOUNTER 2025-08-02 12:31 | Outpatient (REF) | payer MEDICARE, OTHER, SELFPAY ==
[2025-08-02 15:19] LABS: Anion Gap 14 (12-20); Blood Urea Nitrogen 27 mg/dL (9-16); Calcium 9.4 mg/dL (8.4-10.2); Carbon Dioxide 27 mmol/L (22-29); Chloride 108 mmol/L (96-108); Estimated Glomerular Filt Rate 31; Potassium 4.8 mmol/L (3.3-5.1); Sodium 144 mmol/L (135-145)
== END 2025-08-02 12:32 | disposition home or self-care (01) ==
LOC: HO.US 12:31
PROVIDERS: Absent Provider Physician Assistant; PCP Physician Assistant; Visit Provider Internal Medicine Hypertension Specialist
DX: N20.0 Calculus of kidney (principal); N18.9 Chronic kidney disease, unspecified
CPT/HCPCS: 36415; 80048

== ENCOUNTER 2025-08-03 12:53 | Outpatient (AMB) | payer MEDICARE, OTHER, SELFPAY ==
--- OUTSIDE RECORDS SUMMARY | 2024-02-05 08:15 | XMS_ITS ---
Author Organization [facility] Address [address] [place] [address] Care Team Providers Care Silk Presser Name Role Phone NelsonCristina edmondson Primary Care Provider Jeanette De Leon Unavailable [phone] Prosper Cantu Unavailable [phone] REASON FOR VISIT Painful nail(s) aggrevated by shoes and causing difficulty standing/walking. Medications Medication SIG (Take, Route, Frequency, Duration) Notes Start Date End Date Status Voltaren 1 % as directed Externally Active Encounters Encounter Location Date Provider Diagnosis [facility] [address] [place] [address] 02/05/2024 Prosper Cantu Type 2 diabetes mellitus [...] Appt Details Follow Up: 3 Months, Reason: Provider Name:Jeanette arnold, 11/03/2025 11:30:00 AM, [address] [place] [address], [id number], Procedure Notes * Category Sub-Category Detail Notes [...] as necessary. Patient chooses, no pharmaceutical tx (23153) Keratoma Treatment Parring or Cutting o f Benign Hyperkeratotic Lesion(s) 35130 ( >4 Lesions) - The Benign hyperkeratotic lesions, as described above were pared, and/or cut utilizing a sterile #15 blade, tissue nippers, and/or dremel Progress Notes * Kaitlin BROWN MDOB:[birth year] (80 yo F)Acc No.[id number]:02/05/2024 Progress Note Patient: Miguel LAKSHMIROMA Kaitlin Noel Provider: Parvin Henson DPM :1945 A ge:78 Y S ex:Female Date:02/05/2024 Address:[address] [place], [place] [id number] Pcp:Cristina Damon Subjective: * Chief Complaints: * [...] enies. C ardiovascular: Pacemaker d enies. 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 W PW d enies. C [...] as necessary. Patient chooses, no pharmaceutical tx (86098). K eratoma Treatment: Parring or Cutting of Benign Hyperkeratotic Lesion(s) 1 1057 ( >4 Lesions) - The Benign hyperkeratotic lesions, as described above were pared, and/or cut utilizing a sterile #15 blade, tissue nippers, and/or dremel. * Procedure Codes: 1 1721 DEBRIDE NAIL, 6 OR MORE, Modifiers: XS , 04364 TRIM SKIN LESIONS, OVER 4, Modifiers: XS * Follow Up: 3 Months * Images: * The named appointment provid er may or may not be the originator of this progress note, and it is not deemed complete until electronically signed by the appointment provider. Sign off status: Pending * Provider: Parvin Henson DPM Date: 0 02/05/2024 Generated for Jeny ball/Chance/Pallavi on: 1 10/03/2024 04:35 PM EST History and Physical Notes * HPI (History of Present Illness) Category Sub-Category Detail Notes Category Not es Painful Nails Pt States Last PCP Visit: Date:: 04/09/2023 Foot Pain Aggrevated: any pressure, shoes Onset/Cause: unknown, denies trau ma Nature: brusing , numbness Treatments: USE OF [...]
--- OUTSIDE RECORDS SUMMARY | 2024-10-15 09:45 | XMS_ITS ---
Author Organization [facility] Address [address] [place] [address] Care Team Providers Care Sr. Manager Corporate Communications Name Role Phone NelsonCristina edmondson Primary Care Provider Jeanette De Leon Unavailable [phone] Sylvia Nguyễn Unavailable [phone] Allergies Allergen (clinical drug ingredient) Drug/Non Drug [...] Active Encounters Encounter Location Date Provider Diagnosis [facility] [address] [address] 10/15/2024 Sylvia Nguyễn Plan Of Treatment Next Appt Details Provider Name:Jeanette arnold, 11/03/2025 11:30:00 AM, [address] [place] [address], [phone], Progress Notes * Kaitlin BROWN MDOB:[birth year] (80 yo F)Acc No.[id number]:10/15/2024 Progress Note Patient: Miguel PRETTY Kaitlin Noel Provider: Sid Nguyễn DPM :1945 A ge:79 Y S ex:Female Date:10/15/2024 Address:[address] [place], [place] [id number] Pcp:Cristina Damon Subjective: * Chief Complaints: * [...] DPM Date: 0 10/15/2024 Generated for Jeny Trent/Pallavi on: 10/03/2024 04:35 PM EST
--- OUTSIDE RECORDS SUMMARY | 2025-01-22 06:15 | XMS_ITS ---
Author Organization [facility] Address [address] [place] [address] Care Team Providers Care Optician Apprentice Dispensing Name Role Phone Cristina Damon Primary Care Provider Jeanette De Leon [phone] Encounters Encounter Location Date Provider Diagnosis [address] [address] 01/22/2025 Jeanette Messer Plan Of Treatment Next Appt Details Provider Name:Jeanette arnold, 11/03/2025 11:30:00 AM, [address] [place], [address], Progress Notes * Kaitlin BROWN MDOB:[birth year] (80 yo F)Acc No.[id number]:01/22/2025 Progress Note Patient: Kaitlin URIBE Provider: Miguel Messer DPM :1945 A ge:79 Y S ex:Female Date:01/22/2025 Address:[facility] [address] [place] Pcp:Cristina Damon Subjective: * Chief Complaints: * [...] 01/22/2025 Generated for Jeny ball/Chance/Pallavi on: 1 10/03/2024 04:36 PM EST
--- OUTSIDE RECORDS SUMMARY | 2025-06-18 05:45 | XMS_ITS ---
Author Organization [facility] Address [address] [place] [address] Care Team Providers Care Rehab Director Name Role Phone NelsonCristina edmondson Primary Care Provider Jeanette De Leon Unavailable [phone] Jose Francisco Dietz Unavailable Medications Medication SIG (Take, Route, Frequency, Duration) [...] Active Encounters Encounter Location Date Provider Diagnosis [facility] [address] [place] [address] 06/18/2025 Jose Francisco Dietz Plan Of Treatment Next Appt Details Provider Name:Jeanette Arnold Prosper arnold, 11/03/2025 11:30:00 AM, [address] [place], [address], Progress Notes * Kaitlin BROWN MDOB:[birth year] (80 yo F)Acc No.[id number]:06/18/2025 Progress Note Patient: Kaitlin URIBE Provider: Sid Dietz DPM :1945 A ge:79 Y S ex:Female Date:06/18/2025 Address:[address] [place] [address], [place] Pcp:Cristina Damon Subjective: * Chief Complaints: * [...] Sign off status: Pending * Provider: Sid Dietz DPM Date: Generated for Jeny ball/Chance/Pallavi on: 10/03/2024 04:35 PM EST
--- OUTSIDE RECORDS SUMMARY | 2025-06-18 06:15 | XMS_ITS ---
Author Organization [facility] Address [address] [place] [address] Care Team Providers Care Telecom Network Manager Name Role Phone Cristina Damon Primary Care Provider Unavailabl Jeanette Weinberg Unavailable [phone] Bishnu Cervantes Unavailable [phone] Merino Encounters Encounter Location Date Provider Diagnosis [address] [address] 06/18/2025 Bishnu Cervantes Plan Of Treatment Next Appt Details Provider Name:Jeanette arnold, 11/03/2025 11:30:00 AM, [address] [place] [address], [phone], Progress Notes * Kaitlin BROWN MDOB:[birth year] (80 yo F)Acc No.[id number]:06/18/2025 Progress Note Patient: Kaitlin URIBE Provider: Kj Cervantes DPM :1945 A ge:79 Y S ex:Female Date:06/18/2025 Address:[facility] [address] Pcp:Cristina Damon Subjective: * Chief Complaints: * [...] Provider: Kj Cervantes DPM Date: Generated for Jeny Maier on: 10/03/2024 04:36 PM EST
--- NOTE | 2025-08-03 13:24 | MHC.PC.OV ---
Vital Signs 08/03/25 13:35 08/07/25 21:39 Height 5 ft 3.78 in Weight 93.894 kg BMI 35.8 BP 142/58 H 138/86 Blood Pressure Location Rt brachial Position Sitting Respiration 20 Pulse 55 Pulse Source Pulse Oximeter Temp 98.7 F Pulse Oximetry (%) 99 Oxygen Delivery Method Room Air Intake Visit Reasons: 3 month f/u Ham Trimmer Required: No Accompanied by: Spouse Allergies amoxicillin (AMOXICILLIN) Allergy (Severe, Verified 08/03/25 13:24) stroke, blood clots ciprofloxacin (From CIPRO) Allergy (Severe, Verified 08/03/25 13:24) ANAPHYLAXIS Iodinated Contrast Media (IV DYE, IODINE CONTAINING CONTRAST ) Allergy (Severe, Verified 08/03/25 13:24) HIVES levofloxacin Allergy (Severe, Verified 08/03/25 13:24) Anaphylaxis liraglutide Allergy (Severe, Verified 08/03/25 13:24) Headache Penicillins Allergy (Severe, Verified 08/03/25 13:24) stroke, blood clots FREYA Inhibitors Allergy (Intermediate, Verified 08/03/25 13:24) Cough ARB-Angiotensin Receptor Antagonist Allergy (Intermediate, Verified 08/03/25 13:24) Cough cefpodoxime Allergy (Intermediate, Verified 08/03/25 13:24) Dizziness, nausea doxazosin Allergy (Intermediate, Verified 08/03/25 13:24) Shortness of Breath fluticasone (Advair Diskus) Allergy (Intermediate, Verified 08/03/25 13:24) Anxiety gabapentin (From Neurontin) Allergy (Intermediate, Verified 08/03/25 13:24) Headache hydralazine Allergy (Intermediate, Verified 08/03/25 13:24) Shortness of Breath latex Allergy (Intermediate, Verified 08/03/25 13:24) Hives linezolid Allergy (Intermediate, Verified 08/03/25 13:24) Nausea and Vomiting meloxicam Allergy (Intermediate, Verified 08/03/25 13:24) Unknown salmeterol (Advair Diskus) Allergy (Intermediate, Verified 08/03/25 13:24) Anxiety Tetanus Vaccines and Toxoid Allergy (Intermediate, Verified 08/03/25 13:24) Swelling torsemide Allergy (Intermediate, Verified 08/03/25 13:24) Shortness of Breath cephalexin (Keflex) Allergy (Mild, Verified 08/03/25 13:24) Nausea Medication List - Last Reconciled 08/03/25 by MALISSA Bustillos acetaminophen 650 mg (2 x 325 mg) PO Q6H PRN 30 days albuterol sulfate 90 mcg/actuation (Ventolin HFA) 2 puffs inhalation Q6H PRN amlodipine 5 mg PO DAILY ascorbic acid (vitamin C) 1,000 mg PO DAILY aspirin 325 mg PO DAILY atorvastatin 80 mg PO BEDTIME blood sugar diagnostic (Accu-Chek Guide test strips) As directed carvedilol 25 mg PO BID caspofungin 50 mg IV Q24H 13 days caspofungin 50 mg IV Q24H chair, wheel (Wheel chair) Transfer chair citalopram 20 mg PO DAILY coenzyme Q10 (CoQ-10) 100 mg PO BEDTIME doxycycline hyclate 100 mg PO BID duloxetine 60 mg PO DAILY esomeprazole magnesium 40 mg PO BID famotidine 40 mg PO BEDTIME ferrous sulfate (iron) 325 mg PO DAILY fluconazole 75 mg (1/2 x 150 mg) PO DAILY furosemide 40 mg PO DAILY PRN ibrutinib (Imbruvica) 420 mg PO DAILY lancets (FreeStyle Lancets) As directed magnesium 250 mg PO BEDTIME mastectomy bra (bra, mastectomy) As Directed mastectomy bra (bra, mastectomy) As Directed mastectomy bra (bra, mastectomy) As Directed metformin 1,000 mg PO BID multivitamin 1 tab PO DAILY neomycin-polymyxin B-dexameth 3.5 mg/g-10,000 unit/g-0.1 % ophthalmic (eye) oxybutynin chloride 5 mg PO BID PRN oxycodone 5 mg PO Q4H PRN polyethylene glycol 3350 (Miralax) 17 grams PO DAILY PRN pregabalin 150 mg PO BID spironolactone 25 mg PO DAILY walker Folding front wheeled walker walker Folding front wheeled walker Tobacco use date assessed: 04/15/25 HPI HPI Comments History of Present Illness Details 79-year-old female with history of CLL, CKD stage 3, hyperlipidemia, neurogenic urinary bladder disorder with recurrent UTI, history of Enterobacter 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 Diabetes: On metformin 1000mg twice daily. Last A1C 5.9% CKD stage 3-last GFR 31. Follows with Dr. Briscoe Aortic stenosis/atrial fibrillation/CAD-not on anticoagulation. On carvedilol for rate control as well as Lasix. No weight gain, dyspnea on exertion, orthopnea, edema. Last echo 03/2024 showed EF 60-65% with impaired relaxation filling. With underlying regional wall motion abnormality consistent with CAD. Calcific changes of aortic valve noted with mild regurgitation and mild stenosis. Hyperlipidemia-last LDL at goal 59. On atorvastatin 80 mg daily Hypertension-on Coreg 25 mg twice daily, amlodipine 5 mg daily, Lasix Follows with Dr Agustin. GERD/IBS: Follows with [facility] [place] gastroenterology Urology: Follows with urology. Chronic Henao with history of Pseudomonas UTI. On oxybutynin Fibromyalgia-Lyrica. 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 Follows with Dr Worthy. On imbrevica MSK: s/p left hip knee replacement complicated by septic joint and bacteremia. Follows with [facility] infectious disease. Had been on Mirapex in but was discontinued in favor of Bactrim. However had adverse side effects with Bactrim and was taken off of all antibiotics. History of multiple surgeries of the left hip, follows with [facility]. Candidal stomatitis-following long-term use of antibiotics. Following with Dr. Martinez. Unable to get caspofungin approve. Has been on fluconazole for refractory candidiasis. Has not had an EGD Concerns: Rash on the face- x1 week, no contacts with similar rash. Red rash with good crusting. No pain Productive cough- ongoing 1 month, some sob/wheezing. Has chills, fevers. Sore throat- Daily about 2 months. Using cough syrup. Happening every day. Reports difficulty swallowing, globus sensation ROS: see hpi EXAM: Constitutional - Awake and Alert, No apparent distress Eyes - PERRL Cardiovascular - S1S2, RRR, No edema Respiratory - Normal lung expansion, Normal respiratory effort, No respiratory distress, CTA bilaterally Extremities - no calf tenderness bilaterally, no swelling Skin - Warm/Dry. Erythematous crusted lesions along the mouth and nasolabial fold Neurological - Alert & oriented x3 Psychological - Appropriate affect [facility] Medical History (Updated 08/03/25 @ 13:48 by MALISSA Bustillos) Type 2 diabetes mellitus with unspecified complications Diabetes PAF (paroxysmal atrial fibrillation) PAF (paroxysmal atrial fibrillation) Suprapubic catheter Neuropathy Osteoarthritis Morbid obesity Allergy to multiple antibiotics Depression Arthritis of left hip Wears dentures Neurogenic urinary bladder disorder History of blood transfusion History of CVA (cerebrovascular accident) Seasonal allergies PONV (postoperative nausea and vomiting) Diabetes with neurologic complications Anemia CLL (chronic lymphocytic leukemia) Sleep apnea Arthritis Fibromyalgia Hypercholesterolemia Hypertension History of bilateral breast cancer Urinary retention with incomplete bladder emptying Surgical History History of cervical discectomy History of open heart surgery (~01/31/24) History of total left hip replacement S/P Botox injection History of suprapubic catheter S/P left breast biopsy History of esophagogastroduodenoscopy (EGD) Hx of colonoscopy (~09/04/21) History of bladder repair surgery History of total hysterectomy S/P breast biopsy, right History of back surgery History of biopsy of bladder Family History Mother Breast cancer Father Heart disease Father Lung cancer Mother Colon cancer Brother Pancreatic cancer Social History Household Members: Spouse Housing: House Housing Other:: has chair lift for second floor access Are you a primary vehicle care specialist to a significant other at home: No Do you presently have visiting nurse or other home services: No Alcohol intake: never Comment: patient refused telesiter,removed per pt request Patient Tobacco Use Status: Never used Tobacco e-Cigarette/Vaping Use: Never Used Advance Directives Date on File: 07/30/23 service: No Current occupational status: retired Female Reproductive History Menstrual Age of Menarche: 15 Questionnaire Thrive Questionnaire Date Thrive assessed: 06/11/25 Physical exam (Primary Care) Vital Signs: Last Vital Signs Temp 98.7 F 08/03/25 13:35 Pulse 55 08/03/25 13:35 Resp 20 08/03/25 13:35 BP 142/58 H 08/03/25 13:35 Pulse Ox 99 08/03/25 13:35 Oxygen Delivery Method Room Air 08/03/25 13:35 BMI result Body Mass Index 35.8 Tobacco/Smoking Status: Tobacco use Status Tobacco use date assessed 04/15/25 08/03/25 13:28 Patient Tobacco Use Status Never used Tobacco 08/03/25 13:28 e-Cigarette/Vaping Use Never Used 08/03/25 13:28 Thrive Assessment: Date of Thrive Assessment Date Thrive assessed 06/11/25 08/03/25 13:28 Coding Level of Care Code Est Pt Level 4 (16530) Complex visit Add On G2211 Diagnoses Impetigo L01.00 Essential hypertension I10 Type 2 diabetes with nephropathy E11.21 PAF (paroxysmal atrial fibrillation) 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 Does have history of joint infections. Cover for potential MRSA with doxycycline 100 mg twice daily x7 days. Advised that this is contagious (2) Essential hypertension: Code(s): I10 - Essential (primary) hypertension Category: Medical Plan: Continue current therapies (3) Type 2 diabetes with nephropathy: Code(s): E11.21 - Type 2 diabetes mellitus with diabetic nephropathy Category: Medical Plan: Controlled. Updated hemoglobin A1c ordered. Continue with diabetic diet. Annual eye exams and foot exams. Renal function stable, we will continue monitoring. However, given low GFR and well-controlled type 2 diabetes will discontinue metformin altogether. (4) PAF (paroxysmal atrial fibrillation): Comment: X1 years ago-ASA 81 mg only Code(s): I48.0 - Paroxysmal atrial fibrillation Category: Medical Plan: Rate controlled. Continue aspirin as well as Coreg. 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 She will continue following with Infectious Disease. Continue fluconazole as prescribed. We will continue monitoring labs. She is also referred to Dermatology (6) Cough: Code(s): R05.9 - Cough, unspecified Category: Medical Plan: Referred to pulmonology. Trial albuterol inhaler Plan Follow-up in the office as scheduled Orders: Referrals Dermatology Referral B37.2 - Candidiasis of skin and nail, Z79.2 - FPC (current) use of antibiotics Pulmonology Referral R05.8 - Other specified cough Medications: New albuterol sulfate 90 mcg/actuation (Ventolin HFA) 2 puffs inhalation Q6H PRN 8.5 grams 1RF shortness of breath or wheezing doxycycline hyclate 100 mg PO BID 14 caps 0RF
[2025-08-03 13:35] VITALS: BP 142/58; PULSE 55; RESP 20; TEMP 37.1; O2SAT 99; BMI 35.8
--- OUTSIDE RECORDS SUMMARY | 2025-08-03 16:35 | XMS_ITS | Clinical Summary ---
Author Organization [facility] Address [address] [place], [place] [id number] Phone Care Team Providers Care Bowling Ball Marker Name Role Phone Ricardo Breen MD Primary Care Provider [phone] Social History Tobacco Use Types Packs/Day Years [...] file Insurance MEDICARE PART A & B [facility] MEDICARE SUPPLEMENT MEDICARE PART A & B [facility] MEDICARE SUPPLEMENT MEDICARE PART A & B Member Subscriber Plan / Payer (Ef fective 2008-Present) Name:Jeri Brown Member ID:[id number] Relation to Subscriber:Self Name:Jeri Brown Subscriber ID:[id number] Payer ID:[id number] Group ID:Not on file Type:Medicare Address: [facility] [employer] [place] [id number] MEDICARE SUPPLEMENT MEDICARE PART A & B [facility] MEDICARE SUPPLEMENT MEDICARE PART A & B [facility] MEDICARE SUPPLEMENT MEDICARE PART A & B MEDICARE SUPPLEMENT MEDICARE PART A & B [facility] MEDICARE SUPPLEMENT [place] PART A [place] [id number] [facility] MEDICARE SUPPLEMENT MEDICARE PART A & B [facility] [place] MEDICARE SUPPLEMENT Care Teams Bowling Ball Marker Relationship Specialty Start Date End Date Ricardo Breen MD [address] [place] [id number] PCP - General Internal Medicine 04/08/18 Additional Source Comments The information contained in this document represents components of the legal health record. It is not the complete legal health record.[facility]
--- OUTSIDE RECORDS SUMMARY | 2025-08-03 16:35 | XMS_ITS | Encounter Summary ---
Author Organization [facility] Address [address] [place] [address] [place] [address] Phone Care Team Providers Care Application Support Manager Name Role Phone Kathy Connor Primary Care Provider [phone] Ellen Breen MD Primary Care Provider [phone] Reason for Referral * MRI/CAT Scan - Closed Specialty Diagnoses / Procedures Referred By Contiveth t Referred To Contact Radiology Diagnoses Cervical spinal stenosis Procedures MRI Cervical Spine Kathy Connor PA Phone: tel: fax: [email or web address] Referral ID Status Reason Start Date Expiration Date Visits Re quested Visits Authorized [id number] Closed 03/11/2018 03/11/2019 1 1 Encounter Details Date Type Department Care Team (Late st Contact Info) Description 03/11/2018 Ancillary Orders Virtual Department [address] [place] [address] Kathy Connor PA [address] [place] [phone] [email or web address] Cervical spinal stenosis Social History Tobacco Use [...] advanced degenerative changes as outlined. POS - [id number] Narrative 03/19/2018 4:08 PM EDT COMPARISON: 03/03/2015. [...] advanced degenerative changes as outlined. POS - [id number] Kathy LEONARDO IMG MR XSPECIALTY Final Res ult documented in this encounter Visit Diagnoses Diagnosis Cervical spinal stenosis Spinal stenosis in cervical region Cervical spinal stenosis Spinal stenosis in cervical region documented in this encounter Care Teams Application Support Manager Relationship Specialty Start Date End Date Kathy Connor PA [email or web address] PCP - General 03/11/18 04/07/18 Ellen Breen MD [address] [place] [address] [place] [id number] PCP - General Internal Medicine 04/08/18 documented as of this encounter Additional Source Comments The information contained in this document represents components of the legal health record. It is not the complete legal health record.[facility]
--- OUTSIDE RECORDS SUMMARY | 2025-08-03 16:35 | XMS_ITS | Encounter Summary ---
Author Organization [facility] Address [address] [place] [address] Care Team Providers Care Technical Manager Name Role Phone Jamshid Ricardo Jayla Primary Care Provider [phone] Encounter Details Date Type Department Care Team (Late st Contact Info) Description 02/10/2025 Documentation [facility] Case Management Department [address] [place] [address] Rachel Anaya Social History Tobacco Use Types Packs/Day Years Used Date Smoking Tobacco: Never Smokeless Tobacco: Never Alcohol Use Standard Drinks/Week Comments Never 0 (1 standard drink = 0.6 oz pur e alcohol) [facility] Utilities Answer Date Recorded In the [...] Info) Description 08/25/2025 9:15 AM EST Follow-Up [facility] [address] [place] [address] Murali Hooker MD [address] [place] [address] documented as of this encounter Goals Goal Patient Goal Type Associated Problems Recent Progress Patient-Stated? Author Autogenera gaby Goal Care Plan Autogenerated Problem Rachel Hammonds documented as of this encounter Visit Diagnoses Not on filedocumented in this encounter Additional Health Concerns Active Problems Noted Date Diagnosed Date Autogenerated Problem 01/20/2025 documented as of this encounter Care Teams Technical Manager Relationship Specialty Start Date End Date Ricardo Breen [address] [place] [address] [place] [address] PCP - General Internal Medicine 01/26/25 documented as of this encounter
--- OUTSIDE RECORDS SUMMARY | 2025-08-03 16:35 | XMS_ITS | Encounter Summary ---
Author Organization [facility] Address [address] [place] [address] Phone Care Team Providers Care Facing Baster Name Role Phone Ricardo Breen MD Primary Care Provider Reason for Referral * MRI/CAT Scan - Closed Specialty Diagnoses / Procedures Referred By Yasir t Referred To Contact Radiology Diagnoses Post laminectomy syndrome Procedures MRI Lumbar Spine Rolando Tomas DO Phone: tel: fax: mailto:[email or web address] Referral ID Status Reason Start Date Expiration Date Visits Re quested Visits Authorized [id number] Closed 06/05/2022 06/05/2023 1 1 Encounter Details Date Type Department Care Team (Latest Contact Info) Description 06/05/2022 Transcribe Orders Virtual Department [address] [place] [address] Rolando Tomas DO [address] [place] [address] [email or web address] Post laminectomy syndrome (Primary Dx) Social History [...] region documented in this encounter Care Teams Facing Baster Relationship Specialty Start Date End Date Ricardo Breen MD [address] [place] [address] Dr [place], [place] [address] PCP - General Internal Medicine 04/08/18 documented as of this encounter Additional Source Comments The information contained in this document represents components of the legal health record. It is not the complete legal health record.[facility]
--- OUTSIDE RECORDS SUMMARY | 2025-08-03 16:35 | XMS_ITS | Encounter Summary ---
Author Organization [facility] Address [address] [facility] [address] [place], [place] [id number] Phone Care Team Providers Care Time Analysis Clerk Name Role Phone Ricardo Breen MD Primary Care Provider Encounter Details Date Type Department Care Team (Late st Contact Info) Description 04/08/2018 Ancillary Orders [facility], X-Ray - [address] [address] Brannon Perea MD [address] [place] [address] [email or web address] Cervical spondylosis without myelopathy Social History [...] 3 mm of retrolisthesis of C4 on I0itwwc does not change appreciably in flexion but [...] myelopathy documented in this encounter Care Teams Time Analysis Clerk Relationship Specialty Start Date End Date Ricardo Breen MD [address] [place] [address] [place], [place] [address] PCP - General Internal Medicine 04/08/18 documented as of this encounter Additional Source Comments The information contained in this document represents components of the legal health record. It is not the complete legal health record.[facility]
--- OUTSIDE RECORDS SUMMARY | 2025-08-03 16:35 | XMS_ITS | Encounter Summary ---
Author Organization [facility] Address [address] [place] [address] Phone Care Team Providers Care Coat Finisher Name Role Phone Kathy Connor Primary Care Provider [phone] Ricardo Breen MD Primary Care Provider [phone] Encounter Details Date Type Department Care Team (Late st Contact Info) Description 03/11/2018 Procedure [facility], [address] [address] Social History Tobacco Use Types Packs/Day Years [...] on filedocumented in this encounter Care Teams Coat Finisher Relationship Specialty Start Date End Date Kathy Connor PA [email or web address] PCP - General 03/11/18 04/07/18 Ricardo Breen MD [address] [place] [address] Dr [place], [place] [id number] PCP - General Internal Medicine 04/08/18 documented as of this encounter Additional Source Comments The information contained in this document represents components of the legal health record. It is not the complete legal health record.[facility]
--- OUTSIDE RECORDS SUMMARY | 2025-08-03 16:36 | XMS_ITS | Encounter Summary ---
Author Organization [facility] Address [address] [place] [address] [place] [address] Phone Care Team Providers Care Pull Up Hand Name Role Phone Ricardo Breen MD Primary Care Provider Reason for Referral * MRI/CAT Scan - Closed Specialty Diagnoses / Procedures Referred By Yasir t Referred To Contact Radiology Diagnoses Lumbar radiculopathy Procedures MRI Lumbar Spine Rolando Tomas DO Phone: tel: fax: mailto:[email or web address] Referral ID Status Reason Start Date Expiration Date Visits Re quested Visits Authorized [id number] Closed 06/29/2021 06/29/2022 1 1 Encounter Details Date Type Department Care Team (Latest Contact Info) Description 06/29/2021 Ancillary Orders Virtual Department [address] [place] [address] Rolando Tomas DO [address] [place] [address] [email or web address] Lumbar radiculopathy Social History Tobacco Use Types [...] be performed for further evaluation. POS - [id number] Narrative 07/13/2021 8:26 AM EDT HISTORY: Chronic [...] right kidney, likely a cyst. Procedure Note aZfar Borrego MD - 07/13/2021 HISTORY: Chronic lower [...] could be performedfor further evaluation. POS - [id number] us Rolando Tomas DO IMG MR XSPECIALTY Final Resu lt documented in this encounter Visit Diagnoses Diagnosis Lumbar radiculopathy Thoracic or lumbosacral neuritis or radiculitis, unspecified Lumbar radiculopathy Thoracic or lumbosacral neuritis or radiculitis, unspecified documented in this encounter Care Teams Pull Up Hand Relationship Specialty Start Date End Date Ricardo Breen MD [address] [place] [address] [place] [address] PCP - General Internal Medicine 04/08/18 documented as of this encounter Additional Source Comments The information contained in this document represents components of the legal health record. It is not the complete legal health record.[facility]
--- OUTSIDE RECORDS SUMMARY | 2025-08-03 16:36 | XMS_ITS | Clinical Summary ---
Author Organization [facility] Address [address] [place] [address] Care Team Providers Care Medical Receptionist Assistant Name Role Phone Ricardo Breen Primary Care Provider [phone] Allergies Active Allergy Reactions Criticality Noted Date [...] Team Description 07/12/2025 9:15 AM EST Follow-Up [facility] [address] [place] [phone] Murali Hooker MD 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 (Primary Dx) 06/28/2025 8:58 AM EDT - 06/28/2025 11:59 PM EDT Hospital Encounter [facility] Xray [address] [place], [place] [phone] 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; Left hip pain Discharge Disposition: Home or Self Care (01) 06/28/2025 8:45 AM EDT Follow-Up [facility] [address] [place] [address] ArlynMurali PA Left hip pain (Primary Dx) 06/04/2025 Orders Only [facility] [address] [place] [address] [employer] Footballer: Adeola Ernandez NP 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, initial encounter (Primary Dx); Staphylococcal infection 05/25/2025 Telephone [facility] [address] [place] [address] [employer] Footballer: Adeola Ernandez NP 05/25/2025 Telephone [facility] [address] [place] [address] [employer] Footballer: Adeola Ernandez NP from Last 3 Months Family History Medical [...] drink = 0.6 oz pur e alcohol) [facility] Utilities Answer Date Recorded In the past 12 months has e [employer], gas, oil, or water [employer] threatened to shut off services in your [...] Info) Description 08/25/2025 9:15 AM EST Follow-Up [facility] [address] [place] [address] Murali Hooker MD [address] [place] [address] Health Maintenance Due Date Last Done Comments [...] Risk Screening 03/08/2026 03/08/2025 Hemoglobin 06/01/2026 06/01/2025, 04/10, 04/23/2025, Additional history [...] Rachel Villatoro Medical Devices Implanted Type Area Neurosurgical Nurse Practitioner Device Identifier Shelf Expiration Date Model / Serial / Lot Cement Radiopaque Full Dose 40gr Simplex P - [id number] Implanted:Qty: 2 on 01/26/2025 by Murali Hooker MD at [facility] Implant Left: Hip JACLYN 07/09/2026 [id number] / / [id number] Insert Acetabular Eccentric 36mm 10 Degree Trident X3 - [id number] Implanted:Qty: 1 on 01/26/2025 by Murali Hooker MD at [facility] Implant Left: Hip JACLYN 04/15/2029 [id number] / / [id number] Head Femoral Anatomic V40 Vitallium Cocr Plus [id number] Lfit - [id number] Implanted:Qty: 1 on 01/26/2025 by Murali Hooker MD at [facility] Implant Left: Hip JACLYN 02/07/2028 [id number] / [...] with internal left hip prosthesis, subsequent encounter from Last 3 Months Results * Due to [place] Eren[place] law, this organization might not be sharing [...] to obtain the completed interpretation. Workstation ID: [id number] Narrative 06/28/2025 11:03 AM EDT COMPARISON: 02/12/2025. FINDINGS AND Resulting Agency Comment [id number] Procedure Note Jose A Luong MD - [...] possible to obtain thecompleted interpretation. Workstation ID: [id number] us Murali Hooker MD IMG XR PROCEDURES Final Res ult * (ABNORMAL) CBC Auto Differential (06/01/2025 1:38 PM EDT) Only the most recent of2 resultswithin the time period is included. White Blood Cell Count 7.8 3.8 - 10.8 Thousand/ uL 06/02/2025 4:58 AM [employer] Red Blood Cell Count 3.71(L) 3.80 - 5.10 Million/u L 06/02/2025 4:58 AM [facility] Hemoglobin 11.2(L) 11.7 - 15.5 g/dL 06/02/2025 4:58 AM [facility] Hematocrit 35.9 35.0 - 45.0 % 06/02/2025 4:58 AM [facility] MCV 96.8 80.0 - 100.0 fL 06/02/2025 4:58 AM [employer] MCH 30.2 27.0 - 33.0 pg 06/02/2025 4:58 AM [facility] MCHC 31.2(L) 32.0 - 36.0 g/dL 06/02/2025 4:58 AM [facility] Comment: For adults, a slight decrease in the calculated MCHC value (in the range of 30 to 32 g/dL) is most likely not clinically significant; however, it should be interpreted with caution in correlation with other red cell parameters and the patient's clinical condition. RDW 14.3 11.0 - 15.0 % 06/02/2025 4:58 AM [facility] Platelet Count 114(L) 140 - 400 Thousand/ uL 06/02/2025 4:58 AM [facility] MPV 12.2 7.5 - 12.5 fL 06/02/2025 4:58 AM [facility] Absolute Neutrophils 4,774 1,500 - 7,800 cells/uL 06/02/2025 4:58 AM [employer] Absolute Lymphocytes 2,059 850 - 3,900 cells/uL 06/02/2025 4:58 AM [employer] [place] [employer] Absolute Monocytes 866 200 - 950 cells/uL 06/02/2025 4:58 AM [employer] [facility] Absolute Eosinophils 62 15 - 500 cells/uL 06/02/2025 4:58 AM [employer] [facility] Absolute Basophils 39 0 - 200 cells/uL 06/02/2025 4:58 AM EDT [employer] [facility] Neutrophils 61.2 % 06/02/2025 4:58 AM EDT [employer] [facility] Lymphocytes 26.4 % 06/02/2025 4:58 AM EDT [employer] [facility] Monocytes 11.1 % 06/02/2025 4:58 AM EDT [employer] [facility] Eosinophils 0.8 % 06/02/2025 4:58 AM EDT [employer] [facility] Basophils 0.5 % 06/02/2025 4:58 AM EDT [employer] [facility] Blood Structure of peripheral vein / Unknown 06/01/2025 1:38 PM EDT 06/02/2025 3:22 AM EDT Narrative [facility] - 06/02/2025 5:42 AM EDT FASTING:NO us Adeola Miller GUITAR REPAIR TECHNICIAN LAB BLOOD ORDERABLES Final Res ult Performing Organization Address City/[facility] Co de Phone Number [facility] [address], [place] [address], [place] [phone] [employer] [address] [address] * Sedimentation Rate (06/01/2025 1:38 PM EDT) Only the most recent of2 resultswithin the time period is included. Sed Rate By Modified Westergren 25 0 - 30 mm/h 06/02/2025 4:51 AM EDT [employer] [facility] Blood Structure of peripheral vein / Unknown 06/01/2025 1:38 PM EDT 06/02/2025 3:54 AM EDT Narrative [facility] - 06/02/2025 5:42 AM EDT FASTING:NO Adeola Miller GUITAR REPAIR TECHNICIAN LAB BLOOD ORDERABLES Final Res ult Performing Organization Address City/[facility]/ZIP Co de Phone Number [facility] [address], [facility] [place] [address], [place] [phone] [employer] [facility] [address] [place] [address] * C-Reactive Protein (06/01/2025 1:38 PM EDT) Only the most recent of2 resultswithin the time period is included. Pathologist [facility] C-Reactive Protein 6.6 <8.0 mg/L 06/02/2025 4:[address] [facility] Blood Structure of peripheral vein / Unknown 06/01/2025 1:38 PM EDT 06/02/2025 2:42 AM EDT Narrative [facility] - 06/02/2025 5:42 AM EDT FASTING:NO us Adeola Miller GUITAR REPAIR TECHNICIAN LAB BLOOD ORDERABLES Final Res ult [facility] [address] [facility] 3rd Floor, [place] [address], [place] [phone] [address] * (ABNORMAL) Comprehensive Metabolic Panel (06/01/2025 1:38 PM EDT) Only the most recent of2 resultswithin the time period is included. Pathologist [facility] Glucose 148(H) 65 - 139 mg/dL 06/02/2025 5:[address] [facility] Comment: Non-fasting reference interval BUN 28(H) 7 - 25 mg/dL 06/02/2025 5:40 AM [employer] [facility] Creatinine 1.80(H) 0.60 - 1.00 mg/dL 06/02/2025 5:40 AM [employer] [facility] eGFR 28(L) > OR = 60 mL/min/1. 73m2 06/02/2025 5:40 AM [employer] [facility] Bun/Creatinine Ratio 16 6 - 22 (calc) 06/02/2025 5:40 AM [employer] [facility] Sodium 138 135 - 146 mmol/L 06/02/2025 5:40 AM [employer] [facility] Potassium 4.9 3.5 - 5.3 mmol/L 06/02/2025 5:40 AM [employer] [facility] Chloride 101 98 - 110 mmol/L 06/02/2025 5:40 AM [employer] [facility] Carbon Dioxide 28 20 - 32 mmol/L 06/02/2025 5:40 AM EDT [employer] [facility] Calcium 9.4 8.6 - 10.4 mg/dL 06/02/2025 5:40 AM EDT [employer] [facility] Protein, Total 5.9(L) 6.1 - 8.1 g/dL 06/02/2025 5:40 AM EDT [employer] [facility] Albumin 4.0 3.6 - 5.1 g/dL 06/02/2025 5:40 AM EDT [employer] [facility] Globulin 1.9 1.9 - 3.7 g/dL (calc) 06/02/2025 5:40 AM EDT [employer] [facility] Albumin/Globuli n Ratio 2.1 1.0 - 2.5 (calc) 06/02/2025 5:40 AM EDT [employer] [facility] Bilirubin, Total 0.5 0.2 - 1.2 mg/dL 06/02/2025 5:40 AM EDT [employer] [facility] Alkaline Phosphatase 56 37 - 153 U/L 06/02/2025 5:40 AM EDT [employer] [facility] AST 14 10 - 35 U/L 06/02/2025 5:40 AM EDT [employer] [facility] ALT 11 6 - 29 U/L 06/02/2025 5:40 AM EDT [employer] [facility] Blood Structure of peripheral vein / Unknown 06/01/2025 1:38 PM EDT 06/02/2025 2:42 AM EDT Narrative [facility] - 06/02/2025 5:42 AM EDT FASTING:NO us Adeola Miller GUITAR REPAIR TECHNICIAN LAB BLOOD ORDERABLES Final Res ult [facility] [address] [facility] 3rd Floor, [place] [address], [employer] [facility] [address] [place] [address] from Last 3 Months Additional Health Concerns Active Problems Noted Date Diagnosed Date Autogenerated Problem 01/20/2025 Insurance MEDICARE * Guarantor: JERI BROWN Account Type Relation to Patient Date of Phone Billing Address Personal/Family MEDICARE Member Subscriber Plan / Payer ( fective 2013-) Name:Jeri Brown Member ID:[id number] Relation to Subscriber:Self Name:Jeri Brown Subscriber ID:[id number] Payer ID:[id number] Group ID:Not on file Type:Not on file Address: [address] Advance Directives * Full Code (Latest Code Status on File) Date Activated Date Inactivated Comments 01/26/2025 10:59 AM 02/05/2025 3:20 PM * Full Code Date Activated Date Inactivated Comments 01/26/2025 5:58 AM 01/26/2025 10:59 AM Care Teams Medical Receptionist Assistant Relationship Specialty Start Date End Date Ricardo Breen [address] [place] [address] DR [place], EBEN [address] PCP - General Internal Medicine 01/26/25
--- OUTSIDE RECORDS SUMMARY | 2025-08-03 16:36 | XMS_ITS | Patient Health Record ---
Author Organization [facility] Address [address] [facility] [facility] [place] [address] Care Team Providers Care Housekeeper Cleaning Cooking Name Role Phone Cristina Damon Primary Care Provider UnavailJeanette Santoro Unavailable [phone] Bishnu Cervantes Unavailable [phone] Sylvia Nguyễn Unavailable [phone] Jose Francisco Dietz Unavailable Allergies Allergen (clinical [...] Duration) Notes Start Date End Date Status Flexeril Active Extra Depth Orthopedic Shoes (1 Pair) with Customized Heat Molded Multidensity Innersoles (3 Pair) Dx: NIDDM/Polyneuropathy (E11.42), Hammertoe Foot Deformity (M20.41,M20.42), Preulcerative Skin Lesion(s) (L85.1); Duration: 365 days 03/23/2025 Active Furosemide Active Victoza Not-Taking Vitamin D 1000 UNIT 1 tablet Orally Once a day Active Carvedilol 25 MG Orally [...] XL Active Imbruvica Active Lorazepam prn Active DULoxetine HCl 30 MG 1 capsule Orally On ce a day Active Immunizations Vaccine Route Administration Date Status Comme nts Influenza Unknown 05/12/2018 Administered Influenza Unknown 05/10/2021 Administered Influenza Unknown 06/09/2023 Administered Influenza Unknown 06/09/2024 Administered Influenza Unknown 2025 Administered COVID-19 Moderna Vaccine Unknown 05/19/2021 Administered [...] Problem Acquired hammer toe of right foot (9831093962939934 ) Other hammer toe(s) (acquired), right foot (M20.41) Active confirmed Problem Acquired hammer toe of left foot (8836789332965025 ) Other hammer toe(s) (acquired), left foot (M20.42) Active confirmed Problem Polyneuropathy due to type 2 diabetes mellitus (787096289) Type 2 diabetes mellitus with diabetic polyneuropathy (E11.42) Active confirmed Vital Signs Blood pressure diastolic 67 mm Hg 07/28/2025 Height 5 ft 4 in in 07/28/2025 Blood pressure systolic 136 mm Hg 07/28/2025 Weight 199 lbs 07/28/2025 BMI 34.15 kg/m2 07/28/2025 Procedures Procedure Date Ordered Date Performed Result Body Sit e 85046-QVSLGRM NAIL, 6 OR MORE 03/23/2025 N/A 84762-BAGE SKIN LESIONS, 2 TO 4 03/23/2025 N/A Encounters Encounter Location Date Provider Diagnosis [address] [address] 10/23/2024 Jeanette Messer Type 2 diabetes mellitus with diabetic polyneuropathy E11.42 ; 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 ; Tinea unguium B35.1 ; Pain in right ankle and joints of right foot M25.571 ; Other hammer toe(s) (acquired), right foot M20.41 ; Other hammer toe(s) (acquired), left foot M20.42 and Local edema R60.[address] [address] 03/23/2025 Bishnu Cervantes Type 2 diabetes mellitus with diabetic polyneuropathy E11.42 ; Tinea unguium B35.1 ; Other hammer toe(s) (acquired), right foot M20.41 and Other hammer toe(s) (acquired), left foot M20.[address] [address] 07/28/2025 Jeanette Messer Type 2 diabetes mellitus with diabetic polyneuropathy E11.42 ; Contusion of right great toe without damage to nail, initial encounter S90.111A ; Tinea unguium B35.1 and Other hammer toe(s) (acquired), right foot M20.[address] [address] 10/14/2024 Sylvia Nguyễn [address] [address] 10/28/2024 [facility] [address] [place] [address] 12/18/2024 Jeanette Chenga [facility] [address] [address] 12/18/2024 Jeanette Messer [facility] [address] [address] 03/23/2025 Jeanette Messer [facility] [address] [address] 06/18/2025 Jeanette Messer Assessments Encounter Date Diagnosis [...] E11.42) 03/23/2025 Tinea unguium (ICD-10 - B35.1) 07/28/2025 Type 2 diabetes mellitus with diabetic polyneuropathy (ICD-10 - E11.42) 07/28/2025 Contusion of right great toe without damage to nail, initial encounter (ICD-10 - S90.111A) 07/28/2025 Tinea unguium (ICD-10 - B35.1) 03/23/2025 Other hammer toe(s) (acquired), right foot (ICD-10 - M20.41) Patient Educated with: DIABETIC FOOT CARE INSTRUCTIONS. pdf (DIABETIC FOOT CARE INSTRUCTIONS. pdf) 10/23/2024 Tinea unguium (ICD-10 - B35.1) 10/23/2024 Pain in right ankle and joints of right foot (ICD-10 - M25.571) 03/23/2025 Other hammer toe(s) (acquired), left foot (ICD-10 - M20.42) 07/28/2025 Other hammer toe(s) (acquired), right foot (ICD-10 - M20.41) 10/23/2024 Other hammer toe(s) (acquired), right foot [...] X ray : Foot, right 3V 10/23/2024 92053-IGQEMPO NAIL, 6 OR MORE 07/16/2024 66284-SZCMYTB NAIL, 6 OR MORE 03/23/2025 34588-SJGBPSR NAIL, 1-5 05/05/2018 50098-HOBIQIC NAIL, 1-5 07/21/2018 71919-BDKHRPY NAIL, 1-5 10/13/2018 11370, J0702- INJECT or DRAIN, JOINT/BUR SA 05/05/2018 32014-XSMZ SKIN LESIONS, OVER 4 05/05/20 18 52120-GWRO SKIN LESIONS, OVER 4 07/21/20 18 34699-WBFS SKIN LESIONS, OVER 4 01/13/20 19 16488-PYTY SKIN LESIONS, OVER 4 04/13/20 19 13148-NMWG SKIN LESIONS, OVER 4 10/13/19 19 06389-PKLZ SKIN LESIONS, OVER 4 12/06/19 21 25672-NDLJ SKIN LESIONS, OVER 4 05/08/20 21 49148-BNMI SKIN LESIONS, OVER 4 10/18/19 22 31842-XRBY SKIN LESIONS, OVER 4 08/01/20 20 93064-PIZM SKIN LESIONS, OVER 4 03/30/20 20 47267-NQOA SKIN LESIONS, OVER 4 07/13/20 19 03817-DCHY SKIN LESIONS, OVER 4 10/12/19 20 88627-YRNS SKIN LESIONS, 2 TO 4 07/16/20 24 12353-MAOX SKIN LESIONS, 2 TO 4 02/20/20 18 68833-KOQQ SKIN LESIONS, 2 TO 4 03/23/20 09619, K8345-VVRPV/INJECT, JOINT/BURSA 0 10/13/2018 S1997-KRRKOYXD DYSTROPHIC NAILS ANY # I8641-ATFGHFGQ DYSTROPHIC NAILS ANY # H1148-LVMRBBLK DYSTROPHIC NAILS ANY # L9632-BONTNWOF DYSTROPHIC NAILS ANY # O5019-ZWOMIZPA DYSTROPHIC NAILS ANY # O3201-TNDRDIPN DYSTROPHIC NAILS ANY # B6709-VUCJPMEO DYSTROPHIC NAILS ANY # Q1437-DKVAZZPX DYSTROPHIC NAILS ANY # F3924-CSSNSAZS DYSTROPHIC NAILS ANY # 92148- Nail Unit Biopsy 02/19/2018 Next Appt Details Provider Name:Jeanette arnold, 11/03/2025 11:30:00 AM, [address] [facility], [place], [address], Insurance Providers Payer Name Payer Address Payer Phone Subscriber Number Group Number Insured Name Patient Relationship to Insured Coverage Start Date Coverage End Date Medicare National [employer] [address] [place] [id number] Kaitlin Ortiz Self - patient is the insured [address] [place] [address] [address] [place] [address] [id number] Kaitlin Ortiz Self - patient is the [...] Treatment s Monthly Open heart surgery 02/02/24 hip surgery 01/31
--- OUTSIDE RECORDS SUMMARY | 2025-08-03 16:36 | XMS_ITS | Encounter Summary ---
Author Organization [facility] Address [address] [place] [address] Phone Care Team Providers Care Technical Translator Name Role Phone Ricardo Breen MD Primary Care Provider Encounter Details Date Type Department Care Team (Late st Contact Info) Description 06/29/2021 Procedure Pass [facility], [address] [address] Social History Tobacco Use Types Packs/Day Years [...] on filedocumented in this encounter Care Teams Technical Translator Relationship Specialty Start Date End Date Ricardo Breen MD [address] [place] [address] Dr CONNOR [address] [place] [address] PCP - General Internal Medicine 04/08/18 documented as of this encounter Additional Source Comments The information contained in this document represents components of the legal health record. It is not the complete legal health record.[facility]
--- OUTSIDE RECORDS SUMMARY | 2025-08-03 16:36 | XMS_ITS | Encounter Summary ---
Author Organization [facility] Address [address] [place] [address] Phone Care Team Providers Care Color Buffer Name Role Phone Ricardo Breen MD Primary Care Provider Encounter Details Date Type Department Care Team (Late st Contact Info) Description 06/05/2022 Procedure Pass [facility], [address] [address] Social History Tobacco Use Types Packs/Day Years [...] on filedocumented in this encounter Care Teams Color Buffer Relationship Specialty Start Date End Date Ricardo Breen MD [address] [place] [address] Dr CONNOR [address] [place] [address] PCP - General Internal Medicine 04/08/18 documented as of this encounter Additional Source Comments The information contained in this document represents components of the legal health record. It is not the complete legal health record.[facility]
--- OUTSIDE RECORDS SUMMARY | 2025-08-03 16:36 | XMS_ITS | Continuity of Care Document ---
Author Organization [facility] [address] [place] [address] Phone [phone] Social History Type Date Description Comments Sex [...]
[2025-08-07 21:39] VITALS: BP 138/86
== END 2025-08-03 14:11 | disposition home or self-care (01) ==
LOC: HO.HMCHD 12:54
PROVIDERS: PCP Physician Assistant; Visit Provider Physician Assistant
DX: L01.00 Impetigo, unspecified (principal); I10 Essential (primary) hypertension; E11.21 Type 2 diabetes mellitus with diabetic nephropathy; I48.0 Paroxysmal atrial fibrillation; Z79.2 Long term (current) use of antibiotics; R05.9 Cough, unspecified

== ENCOUNTER → 2025-08-03 12:53 | Outpatient (BNVA) | payer MEDICARE, OTHER, SELFPAY | PROVIDERS: PCP Physician Assistant; Visit Provider Physician Assistant | DX: L01.00 Impetigo, unspecified (principal); R05.9 Cough, unspecified; I10 Essential (primary) hypertension; E11.21 Type 2 diabetes mellitus with diabetic nephropathy; I48.0 Paroxysmal atrial fibrillation; Z79.2 Long term (current) use of antibiotics | CPT/HCPCS: 99212 ==

== ENCOUNTER 2025-08-10 12:59 | Outpatient (AMB) | payer MEDICARE, OTHER, SELFPAY ==
--- NOTE | 2025-08-10 13:02 | MHC.OFFVIS ---
Vital Signs 08/10/25 13:11 Height 5 ft 4 in Weight 207 lb BMI 35.5 BP 156/60 H Blood Pressure Location Lt brachial Position Sitting Pulse 56 Pulse Source Pulse Oximeter Pulse Oximetry (%) 96 Oxygen Delivery Method Room Air Intake Visit Reasons: 30 M. Nausea/vomiting Intake Note: Est pt for mgmt of GERD + abd cramping. CC; C/O N+V, GERD, and dysphagia despite current therapies. Pt reports her sx as being more post-prandial in nature, as well as that the esomeprazole seems less effective than it had been previously. Contact Lens Fitter Required: No Accompanied by: Spouse Allergies amoxicillin (AMOXICILLIN) Allergy (Severe, Verified 08/16/25 14:53) stroke, blood clots ciprofloxacin (From CIPRO) Allergy (Severe, Verified 08/16/25 14:53) ANAPHYLAXIS Iodinated Contrast Media (IV DYE, IODINE CONTAINING CONTRAST ) Allergy (Severe, Verified 08/16/25 14:53) HIVES levofloxacin Allergy (Severe, Verified 08/16/25 14:53) Anaphylaxis liraglutide Allergy (Severe, Verified 08/16/25 14:53) Headache Penicillins Allergy (Severe, Verified 08/16/25 14:53) stroke, blood clots FREYA Inhibitors Allergy (Intermediate, Verified 08/16/25 14:53) Cough ARB-Angiotensin Receptor Antagonist Allergy (Intermediate, Verified 08/16/25 14:53) Cough cefpodoxime Allergy (Intermediate, Verified 08/16/25 14:53) Dizziness, nausea doxazosin Allergy (Intermediate, Verified 08/16/25 14:53) Shortness of Breath fluticasone (Advair Diskus) Allergy (Intermediate, Verified 08/16/25 14:53) Anxiety gabapentin (From Neurontin) Allergy (Intermediate, Verified 08/16/25 14:53) Headache hydralazine Allergy (Intermediate, Verified 08/16/25 14:53) Shortness of Breath latex Allergy (Intermediate, Verified 08/16/25 14:53) Hives linezolid Allergy (Intermediate, Verified 08/16/25 14:53) Nausea and Vomiting meloxicam Allergy (Intermediate, Verified 08/16/25 14:53) Unknown salmeterol (Advair Diskus) Allergy (Intermediate, Verified 08/16/25 14:53) Anxiety Tetanus Vaccines and Toxoid Allergy (Intermediate, Verified 08/16/25 14:53) Swelling torsemide Allergy (Intermediate, Verified 08/16/25 14:53) Shortness of Breath cephalexin (Keflex) Allergy (Mild, Verified 08/16/25 14:53) Nausea HPI HPI 31 M. Nausea/vomiting: Details: LAST VISIT: GERD (gastroesophageal reflux disease) IBS (irritable bowel syndrome) Nausea Screen for colon cancer Plan Message sent to surgical schedulers last visit to book procedure for patient. Book procedure before October 22. Patient will have hip surgery and should not have any procedure after Oct 22. Patient was cleared by cardiology. Patient is on low-dose aspirin. Denies any cardiac or respiratory symptoms at this time. Discussed with patient good bowel prep and clear liquid diet day before procedure. What to expect before during and after procedure discussed with patient. Stressed the importance of good bowel prep and clear liquid diet day before procedure. I will see patient after the procedure. She is agreeable to this plan and verbalizes understanding of instructions. She was given the opportunity to ask questions and all questions answered. ? Thank you for allowing me to participate in her care New bisacodyl (Dulcolax (bisacodyl)) take 4 tabs at noon the day before your colonoscopy 20 mg (4 x 5 mg) PO ONCE 1 day 4 tabs 0RF Z12.11 polyethylene glycol 3350 (Miralax) As directed by gastroenterology department at [facility] 238 grams PO ONCE 238 grams 0RF Z12.11 TODAY'S VISIT Patient is here today for requested visit. Patient was able to go for colonoscopy due to health trouble, patient with multiple comorbidities and frequent hospitalizations for UTI, infection of hip prosthesis and Congestive heart failure. Patient on chronic antibiotic therapy for UTI developed severe thrush in her mouth and esophagus. Patient was treated with Diflucan, however she was not improving much. Patient continues to have trouble swallowing. Will ask for clearance for upper endoscopy for possible dilation. Patient is taking Nexium twice a day, denies having acid reflux, however she reports occasional dyspepsia. Patient is trying to stay away from certain food. Patient admits that she is not taking Lasix or spironolactone. She has not taking it for few days. We have discussed that in order for her to have the procedure she needs to take that specially that she will be getting IV infusions of fluids. Patient denies nausea or vomiting. Reports that she is moving her bowels without any issues. Denies melena, hematochezia, unintentional weight loss or ribbon like stools. [facility] Medical History Type 2 diabetes mellitus with unspecified complications Diabetes PAF (paroxysmal atrial fibrillation) PAF (paroxysmal atrial fibrillation) Suprapubic catheter Neuropathy Osteoarthritis Morbid obesity Allergy to multiple antibiotics Depression Arthritis of left hip Wears dentures Neurogenic urinary bladder disorder History of blood transfusion History of CVA (cerebrovascular accident) Seasonal allergies PONV (postoperative nausea and vomiting) Diabetes with neurologic complications Anemia CLL (chronic lymphocytic leukemia) Sleep apnea Arthritis Fibromyalgia Hypercholesterolemia Hypertension History of bilateral breast cancer Urinary retention with incomplete bladder emptying Surgical History History of cervical discectomy History of open heart surgery (~01/31/24) History of total left hip replacement S/P Botox injection History of suprapubic catheter S/P left breast biopsy History of esophagogastroduodenoscopy (EGD) Hx of colonoscopy (~09/04/21) History of bladder repair surgery History of total hysterectomy S/P breast biopsy, right History of back surgery History of biopsy of bladder Family History Mother Breast cancer Father Heart disease Father Lung cancer Mother Colon cancer Brother Pancreatic cancer Social History Household Members: Spouse Housing: House Housing Other:: has chair lift for second floor access Are you a primary animal care technician to a significant other at home: No Do you presently have visiting nurse or other home services: No Alcohol intake: never Comment: patient refused telesiter,removed per pt request Patient Tobacco Use Status: Never used Tobacco e-Cigarette/Vaping Use: Never Used Advance Directives Date on File: 07/30/23 service: No Current occupational status: retired Female Reproductive History Menstrual Age of Menarche: 15 Review of Systems Const Denies weight gain and Denies weight loss ENT Reports no additional complaints, Reports dysphagia and Denies odynophagia Card Reports no additional complaints Resp Reports no additional complaints GI Denies abdominal pain, Denies belching, Denies melena, Reports bloating, Denies change in bowel habits, Reports constipation (Occasional), Reports dysphagia, Denies excessive flatus, Denies dyspepsia, Reports heartburn, Denies diarrhea, Denies loose stools, Reports nausea (Occasional), Denies odynophagia and Denies vomiting Reports no additional complaints Musc Reports no additional complaints Neuro Reports no additional complaints Psych Reports no additional complaints Endo Reports no additional complaints Physical Exam Vital Signs: Last Vital Signs Pulse 56 08/10/25 13:11 BP 156/60 H 08/10/25 13:11 Pulse Ox 96 08/10/25 13:11 Oxygen Delivery Method Room Air 08/10/25 13:11 BMI result Body Mass Index 35.5 Const Other: Patient sitting in a wheelchair General: healthy appearing and no acute distress Nutritional Appearance: obese Orientation/consciousness: patient oriented x3 Resp Effort & Inspection: normal respiratory effort, able to speak in complete sentences, no tracheal deviation and symmetric chest movement Auscultation: clear to auscultation bilaterally Cardio Rate: regular rate GI Inspection: Yes normal to inspection, No distended and Yes obesity Palpation (GI): Soft to palpation, not firm, nontender and No hepatosplenomegaly present Auscultation: normal bowel sounds General: Yes no CVA tenderness Back/Spine/Pelvis Back: no CVA tenderness Skin General skin exam: elasticity normal, turgor normal and dry skin Neuro General: patient oriented x3 Psych Appearance: grossly normal Mental Status: mental status grossly normal Assessment & Plan Assessment & Plan (1) Dysphagia: Code(s): R13.10 - Dysphagia, unspecified Qualifiers: Dysphagia type: esophageal phase Qualified Code(s): R13.19 - Other dysphagia (2) GERD (gastroesophageal reflux disease): Code(s): K21.9 - Gastro-esophageal reflux disease without esophagitis Qualifiers: Esophagitis presence: esophagitis presence not specified Qualified Code(s): K21.9 - Gastro-esophageal reflux disease without esophagitis (3) Irritable bowel syndrome: Code(s): K58.9 - Irritable bowel syndrome, unspecified Qualifiers: Irritable bowel syndrome type: with both diarrhea and constipation Qualified Code(s): K58.2 - Mixed irritable bowel syndrome (4) Nausea: Code(s): R11.0 - Nausea Plan Patient will be sent for upper endoscopy. Patient was encouraged to take her Lasix and spironolactone so she will not go into Congestive heart failure. Will change her therapy and patient can start taking vonoprazan 20 mg daily and sucralfate at bedtime. Avoid dietary triggers. Eat small meals. Follow-up with acid after procedure. Patient is agreeable to this plan and verbalizes understanding of instructions. She was given the opportunity to ask questions and all questions answered. Thank you for allowing me to participate in her care Orders: Referrals GI Procedure Notification R13.10 - Dysphagia, unspecified Medications: New sucralfate Please take it at noon time and at bedtime 10 mL PO BID 400 mL 3RF K21.9 - Gastro-esophageal reflux disease without esophagitis vonoprazan (Voquezna) 20 mg PO DAILY 30 tabs 3RF Coding Level of Care Code Est Pt Level 4 (10044) Add On Problem Visit Only Diagnoses Esophageal dysphagia R13.19 Dysphagia type: esophageal phase Gastroesophageal reflux disease, unspecified whether esophagitis present K21.9 Esophagitis presence: esophagitis presence not specified Irritable bowel syndrome with both constipation and diarrhea K58.2 Irritable bowel syndrome type: with both diarrhea and constipation Nausea R11.0 Time Spent (min) 40 Comment 25 minutes spent with patient and additional 15 minutes spent reviewing her records
[2025-08-10 13:11] VITALS: BP 156/60; PULSE 56; O2SAT 96; BMI 35.5
--- OUTSIDE RECORDS SUMMARY | 2025-08-10 14:55 | XMS_ITS | Encounter Summary ---
Author Organization [facility] Address [address] [place] [address] [place] [address] Phone Care Team Providers Care Leather Cartridge Belt Maker Name Role Phone Ricardo Breen MD Primary Care Provider Reason for Referral * MRI/CAT Scan - Closed Specialty Diagnoses / Procedures Referred By Yasir t Referred To Contact Radiology Diagnoses Lumbar radiculopathy Procedures MRI Lumbar Spine Rolando Tomas DO Phone: tel: fax: mailto:[email or web address] Referral ID Status Reason Start Date Expiration Date Visits Re quested Visits Authorized [id number] Closed 06/29/2021 06/29/2022 1 1 Encounter Details Date Type Department Care Team (Latest Contact Info) Description 06/29/2021 Ancillary Orders Virtual Department [address] [place] [address] Rolando Tomas DO [address] [place] [address] [email or web address] Lumbar radiculopathy Social History Tobacco Use Types [...] be performed for further evaluation. POS - [id number] Narrative 07/13/2021 8:26 AM EDT HISTORY: Chronic [...] could be performedfor further evaluation. POS - [id number] us Rolando Tomas DO IMG MR XSPECIALTY Final Resu lt documented in this encounter Visit Diagnoses Diagnosis Lumbar radiculopathy Thoracic or lumbosacral neuritis or radiculitis, unspecified Lumbar radiculopathy Thoracic or lumbosacral neuritis or radiculitis, unspecified documented in this encounter Care Teams Leather Cartridge Belt Maker Relationship Specialty Start Date End Date Ricardo Breen MD [address] [place] [address] [place] [address] PCP - General Internal Medicine 04/08/18 documented as of this encounter Additional Source Comments The information contained in this document represents components of the legal health record. It is not the complete legal health record.[facility]
--- OUTSIDE RECORDS SUMMARY | 2025-08-10 14:55 | XMS_ITS | Encounter Summary ---
Author Organization [facility] Address [address] [place] [address] Phone Care Team Providers Care Russian Teacher Name Role Phone Ricardo Breen MD Primary Care Provider Reason for Referral * MRI/CAT Scan - Closed Specialty Diagnoses / Procedures Referred By Yasir t Referred To Contact Radiology Diagnoses Post laminectomy syndrome Procedures MRI Lumbar Spine Rolando Tomas DO Phone: tel: fax: mailto: , [email or web address] Referral ID Status Reason Start Date Expiration Date Visits Re quested Visits Authorized [id number] Closed 06/05/2022 06/05/2023 1 1 Encounter Details Date Type Department Care Team (Latest Contact Info) Description 06/05/2022 Transcribe Orders Virtual Department [address] [place] [address] Rolando Tomas DO [address] [place] [address] [email or web address] Post laminectomy syndrome (Primary Dx) Social History [...] region documented in this encounter Care Teams Russian Teacher Relationship Specialty Start Date End Date Ricardo Breen MD [address] [place] [address] [place], EBEN [address] PCP - General Internal Medicine 04/08/18 documented as of this encounter Additional Source Comments The information contained in this document represents components of the legal health record. It is not the complete legal health record.[facility]
--- OUTSIDE RECORDS SUMMARY | 2025-08-10 14:55 | XMS_ITS | Encounter Summary ---
Author Organization [facility] Address [address] [place] [address] Phone Care Team Providers Care Boomswing Operator Name Role Phone Ricardo Breen MD Primary Care Provider Encounter Details Date Type Department Care Team (Late st Contact Info) Description 06/29/2021 Procedure Pass [facility], [address] [address] Social History Tobacco Use Types Packs/Day Years [...] on filedocumented in this encounter Care Teams Boomswing Operator Relationship Specialty Start Date End Date Ricardo Breen MD [address] [place] [address] Dr CONNOR [address] [place] [address] PCP - General Internal Medicine 04/08/18 documented as of this encounter Additional Source Comments The information contained in this document represents components of the legal health record. It is not the complete legal health record.[facility]
--- OUTSIDE RECORDS SUMMARY | 2025-08-10 14:55 | XMS_ITS | Encounter Summary ---
Author Organization [facility] Address [address] [place] [address] Phone Care Team Providers Care Senior Product Analyst Name Role Phone Kathy Connor Primary Care Provider [phone] Ricardo Breen MD Primary Care Provider [phone] Encounter Details Date Type Department Care Team (Late st Contact Info) Description 03/11/2018 Procedure Pass [facility], [address] [address] Social History Tobacco Use Types Packs/Day Years [...] on filedocumented in this encounter Care Teams Senior Product Analyst Relationship Specialty Start Date End Date Kathy Connor PA [email or web address] PCP - General 03/11/18 04/07/18 Ricardo Breen MD [address] [place] [address] Dr BARNETT [place], [place] [phone] PCP - General Internal Medicine 04/08/18 documented as of this encounter Additional Source Comments The information contained in this document represents components of the legal health record. It is not the complete legal health record.[facility]
--- OUTSIDE RECORDS SUMMARY | 2025-08-10 14:55 | XMS_ITS | Encounter Summary ---
Author Organization [facility] Address [address] [place] [address] Care Team Providers Care Towel Folder Name Role Phone Jamshid Ricardo Jayla Primary Care Provider [phone] Encounter Details Date Type Department Care Team (Late st Contact Info) Description 02/10/2025 Documentation [facility] Case Management Department [address] [place] [address] Rachel Anaya Social History Tobacco Use Types Packs/Day Years Used Date Smoking Tobacco: Never Smokeless Tobacco: Never Alcohol Use Standard Drinks/Week Comments Never 0 (1 standard drink = 0.6 oz pur e alcohol) [facility] Utilities Answer Date Recorded In [...] Info) Description 08/25/2025 9:15 AM EST Follow-Up [facility] [address] [place] [address] Murali Hooker MD [address] [place] [address] documented as of this encounter Goals Goal Patient Goal Type Associated Problems Recent Progress Patient-Stated? Author Autogenera gaby Goal Care Plan Autogenerated Problem Rachel Hammonds documented as of this encounter Visit Diagnoses Not on filedocumented in this encounter Additional Health Concerns Active Problems Noted Date Diagnosed Date Autogenerated Problem 01/20/2025 documented as of this encounter Care Teams Towel Folder Relationship Specialty Start Date End Date Ricardo Breen [address] [place] [address] [place] [address] PCP - General Internal Medicine 01/26/25 documented as of this encounter
--- OUTSIDE RECORDS SUMMARY | 2025-08-10 14:55 | XMS_ITS | Encounter Summary ---
Author Organization [facility] Address [address] [facility] [address] [place], [place] [id number] Phone Care Team Providers Care Microbiology Director Name Role Phone Ricardo Breen MD Primary Care Provider Encounter Details Date Type Department Care Team (Late st Contact Info) Description 04/08/2018 Ancillary Orders [facility], X-Ray - [address] [address] Brannon Perea MD [address] [place] [address] [email or web address] Cervical spondylosis without myelopathy Social History Tobacco [...] 3 mm of retrolisthesis of C4 on [id number] does not change appreciably in flexion but [...] myelopathy documented in this encounter Care Teams Microbiology Director Relationship Specialty Start Date End Date Ricardo Breen MD [address] [place] [address] Dr [place], EBEN [address] PCP - General Internal Medicine 04/08/18 documented as of this encounter Additional Source Comments The information contained in this document represents components of the legal health record. It is not the complete legal health record.[facility]
--- OUTSIDE RECORDS SUMMARY | 2025-08-10 14:55 | XMS_ITS | Clinical Summary ---
Author Organization [facility] Address [address] [place] [address] Care Team Providers Care Splicing Machine Operator Name Role Phone Ricardo Breen Primary Care Provider [phone] Allergies Active Allergy Reactions Criticality Noted Date [...] Team Description 07/12/2025 9:15 AM EST Follow-Up [facility] [address] [place] [address] [phone] Murali Hooker MD 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 (Primary Dx) 06/28/2025 8:58 AM EDT - 06/28/2025 11:59 PM EDT Hospital Encounter [facility] Xray [address] [place], [place] [phone] 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; Left hip pain Discharge Disposition: Home or Self Care (01) 06/28/2025 8:45 AM EDT Follow-Up [facility] [address] [place] [address] ArlynMurali PA Left hip pain (Primary Dx) 06/04/2025 Orders Only [facility] [address] [place] [address] [employer]oth Brushing [employer] Sueding Supervisor: Adeola Ernandez NP 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, initial encounter (Primary Dx); Staphylococcal infection 05/25/2025 Telephone [facility] [address] [place] [address] [employer] Supervisor: Adeola Ernandez NP 05/25/2025 Telephone [facility] [address] [place] [address] [employer] Supervisor: Adeola Ernandez NP from Last 3 Months [...] drink = 0.6 oz pur e alcohol) [facility] Utilities Answer Date Recorded In the past 12 months has e [employer], gas, oil, or water [employer] threatened to shut off services in your [...] Info) Description 08/25/2025 9:15 AM EST Follow-Up [facility] [address] [place] [address] Murali Hooker MD [address] [place] [address] Health Maintenance Due Date Last Done Comments [...] Rachel Villatoro Medical Devices Implanted Type Area Chief Transfer And Pumphouse Operator Device Identifier Shelf Expiration Date Model / Serial / Lot Cement Radiopaque Full Dose 40gr Simplex P - [id number] Implanted:Qty: 2 on 01/26/2025 by Murali Hooker MD at [facility] Implant Left: Hip JACLYN 07/09/2026 [id number] / / [id number] Insert Acetabular Eccentric 36mm 10 Degree Trident X3 - [id number] Implanted:Qty: 1 on 01/26/2025 by Murali Hooker MD at [facility] Implant Left: Hip JACLYN 04/15/2029 [id number] / / [id number] Head Femoral Anatomic V40 Vitallium Cocr Plus [id number] Lfit - [id number] Implanted:Qty: 1 on 01/26/2025 by Murali Hooker MD at [facility] Implant Left: Hip JACLYN 02/07/2028 [id number] / / [id number] Procedures * Due to [place] state law, this organization might not be [...] with internal left hip prosthesis, initial encounter from Last 3 Months Results * Due to [place] state law, this organization might not be [...] to obtain the completed interpretation. Workstation ID: [id number] Narrative 06/28/2025 11:03 AM EDT COMPARISON: 02/12/2025. FINDINGS AND Resulting Agency Comment [id number] Procedure Note Jose A Luong MD - [...] possible to obtain thecompleted interpretation. Workstation ID: [id number] us Murali Hooker MD IMG XR PROCEDURES Final Res ult * (ABNORMAL) CBC Auto Differential (06/01/2025 1:38 PM EDT) White Blood Cell Count 7.8 3.8 - 10.8 Thousand/ uL 06/02/2025 4:58 AM EDT Table8 [facility] Red Blood Cell Count 3.71(L) 3.80 - 5.10 Million/u L 06/02/2025 4:58 AM EDT Table8 [facility] Hemoglobin 11.2(L) 11.7 - 15.5 g/dL 06/02/2025 4:58 AM EDT Table8 [facility] Hematocrit 35.9 35.0 - 45.0 % 06/02/2025 4:58 AM EDT Table8 [facility] MCV 96.8 80.0 - 100.0 fL 06/02/2025 4:58 AM EDT Table8 [facility] MCH 30.2 27.0 - 33.0 pg 06/02/2025 4:58 AM EDT Table8 [facility] MCHC 31.2(L) 32.0 - 36.0 g/dL 06/02/2025 4:58 AM EDTittat Comment: For adults, a slight decrease in the calculated MCHC value (in the range of 30 to 32 g/dL) is most likely not clinically significant; however, it should be interpreted with caution in correlation with other red cell parameters and the patient's clinical condition. RDW 14.3 11.0 - 15.0 % 06/02/2025 4:58 AM EDT [employer] Platelet Count 114(L) 140 - 400 Thousand/ uL 06/02/2025 4:58 AM Back& MPV 12.2 7.5 - 12.5 fL 06/02/2025 4:58 AM Back& Absolute Neutrophils 4,774 1,500 - 7,800 cells/uL 06/02/2025 4:58 AM EDTittat Absolute Lymphocytes 2,059 850 - 3,900 cells/uL 06/02/2025 4:58 AM Back& Absolute Monocytes 866 200 - 950 cells/uL 06/02/2025 4:[address] [facility] Absolute Eosinophils 62 15 - 500 cells/uL 06/02/2025 4:58 AM Back& Absolute Basophils 39 0 - 200 cells/uL 06/02/2025 4:58 AM Back& Neutrophils 61.2 % 06/02/2025 4:58 AM EDTittat Lymphocytes 26.4 % 06/02/2025 4:58 AM Back& Monocytes 11.1 % 06/02/2025 4:58 AM Back& Eosinophils 0.8 % 06/02/2025 4:58 AM Back& Basophils 0.5 % 06/02/2025 4:58 AM Back& Blood Structure of peripheral vein / Unknown 06/01/2025 1:38 PM EDT 06/02/2025 3:22 AM EDT [facility] - 06/02/2025 5:42 AM EDT FASTING:NO Adeola Miller NP LAB BLOOD ORDERABLES Final Res ult [facility] [address], [facility] [place] [address], [place] [phone] [address] * Sedimentation Rate (06/01/2025 1:38 PM EDT) [facility] Sed Rate By Modified Westergren 25 0 - 30 mm/h 06/02/2025 4:51 AM EDT Table8 [facility] Blood Structure of peripheral vein / Unknown 06/01/2025 1:38 PM EDT 06/02/2025 3:54 AM EDT Narrative [facility] - 06/02/2025 5:42 AM EDT FASTING:NO us Adeola Miller PIGS FEET FINISHER LAB BLOOD ORDERABLES Final Res ult Performing Organization Address [facility]/ZIP Co de Phone Number [facility] [address], [place] [address], [place] [phone] [address] * C-Reactive Protein (06/01/2025 1:38 PM EDT) [facility] C-Reactive Protein 6.6 <8.0 mg/L 06/02/2025 4:10 AM EDT Table8 [facility] Blood Structure of peripheral vein / Unknown 06/01/2025 1:38 PM EDT 06/02/2025 2:42 AM EDT Narrative [facility] - 06/02/2025 5:42 AM EDT FASTING:NO us Adeola Miller PIGS FEET FINISHER LAB BLOOD ORDERABLES Final Res ult Performing Organization Address City/[facility]/ZIP Co de Phone Number [facility] [address], [facility] [place] [address], [place] [phone] [address] * (ABNORMAL) Comprehensive Metabolic Panel (06/01/2025 1:38 PM EDT) [facility] Glucose 148(H) 65 - 139 mg/dL 06/02/2025 5:40 AM [employer] [facility] Comment: Non-fasting reference interval BUN 28(H) 7 - 25 mg/dL 06/02/2025 5:40 AM [employer] [facility] Creatinine 1.80(H) 0.60 - 1.00 mg/dL 06/02/2025 5:40 AM [employer] [facility] eGFR 28(L) > OR = 60 mL/min/1. 73m2 06/02/2025 5:40 AM [employer] [facility] Bun/Creatinine Ratio 16 6 - 22 (calc) 06/02/2025 5:40 AM [employer] [facility] Sodium 138 135 - 146 mmol/L 06/02/2025 5:40 AM [employer] [facility] Potassium 4.9 3.5 - 5.3 mmol/L 06/02/2025 5:40 AM [employer] [facility] Chloride 101 98 - 110 mmol/L 06/02/2025 5:40 AM [employer] [facility] Carbon Dioxide 28 20 - 32 mmol/L 06/02/2025 5:40 AM [employer] [facility] Calcium 9.4 8.6 - 10.4 mg/dL 06/02/2025 5:40 AM [employer] [facility] Protein, Total 5.9(L) 6.1 - 8.1 g/dL 06/02/2025 5:40 AM [employer] [facility] Albumin 4.0 3.6 - 5.1 g/dL 06/02/2025 5:40 AM [employer] [facility] Globulin 1.9 1.9 - 3.7 g/dL (calc) 06/02/2025 5:40 AM [employer] [facility] Albumin/Globuli n Ratio 2.1 1.0 - 2.5 (calc) 06/02/2025 5:40 AM [employer] [facility] Bilirubin, Total 0.5 0.2 - 1.2 mg/dL 06/02/2025 5:40 AM [employer] [facility] Alkaline Phosphatase 56 37 - 153 U/L 06/02/2025 5:40 AM [employer] [facility] AST 14 10 - 35 U/L 06/02/2025 5:40 AM [employer] [facility] ALT 11 6 - 29 U/L 06/02/2025 5:40 AM EDT Table8 [facility] Blood Structure of peripheral vein / Unknown 06/01/2025 1:38 PM EDT 06/02/2025 2:42 AM EDT Narrative [facility] - 06/02/2025 5:42 AM EDT FASTING:NO us Adeola Miller PIGS FEET FINISHER LAB BLOOD ORDERABLES Final Res ult [facility] [address] [facility] [address], [place] [address], Table8 [facility] [address] [place] [address] from Last 3 Months Additional Health Concerns Active Problems Noted Date Diagnosed Date Autogenerated Problem 01/20/2025 Insurance MEDICARE [facility] * Guarantor: JERI BROWN Account Type Relation to Patient Date of Phone Billing Address Personal/Family MEDICARE [facility] SUPP Advance Directives * Full Code (Latest Code Status on File) Date Activated Date Inactivated Comments 01/26/2025 10:59 AM 02/05/2025 3:20 PM * Full Code Date Activated Date Inactivated Comments 01/26/2025 5:58 AM 01/26/2025 10:59 AM Care Teams Splicing Machine Operator Relationship Specialty Start Date End Date Ricardo Breen [address] [place] [address] [place] [address] PCP - General Internal Medicine 01/26/25
--- OUTSIDE RECORDS SUMMARY | 2025-08-10 14:55 | XMS_ITS | Clinical Summary ---
Author Organization [facility] Address [address] [address] Care Team Providers Care Barrel Polisher Name Role Phone Ricardo Breen MD Primary Care Provider [phone] Medications spironolactone (ALDACTONE) 25 MG tablet TAKE [...] age to complete this topic Care Teams Barrel Polisher Relationship Specialty Start Date End Date Ricardo Breen MD [address] [place] [address] [address] [place] PCP - General 09/19/20
--- OUTSIDE RECORDS SUMMARY | 2025-08-10 14:55 | XMS_ITS | Continuity of Care Document ---
Author Organization [facility] [address] [place] [address] Phone [phone] Social History Type Date Description Comments Sex [...]
--- OUTSIDE RECORDS SUMMARY | 2025-08-10 14:55 | XMS_ITS | Encounter Summary ---
Author Organization [facility] Address [address] [place] [address] [place] [address] Phone Care Team Providers Care Journal Box Inspector Name Role Phone Kathy Connor Primary Care Provider [phone] Ellen Breen MD Primary Care Provider [phone] Reason for Referral * MRI/CAT Scan - Closed Specialty Diagnoses / Procedures Referred By Contiveth t Referred To Contact Radiology Diagnoses Cervical spinal stenosis Procedures MRI Cervical Spine Kathy Connor PA Phone: tel: fax: mailto:[email or web address] Referral ID Status Reason Start Date Expiration Date Visits Re quested Visits Authorized [id number] Closed 03/11/2018 03/11/2019 1 1 Encounter Details Date Type Department Care Team (Late st Contact Info) Description 03/11/2018 Ancillary Orders Virtual Department [address] [place] [address] Kathy Connor PA [address] [place] [phone] [email or web address] Cervical spinal stenosis Social History Tobacco Use [...] advanced degenerative changes as outlined. POS - [id number] Narrative 03/19/2018 4:08 PM EDT COMPARISON: 03/03/2015. [...] advanced degenerative changes as outlined. POS - [id number] Kathy LEONARDO IMG MR XSPECIALTY Final Res ult documented in this encounter Visit Diagnoses Diagnosis Cervical spinal stenosis Spinal stenosis in cervical region Cervical spinal stenosis Spinal stenosis in cervical region documented in this encounter Care Teams Journal Box Inspector Relationship Specialty Start Date End Date Kathy Connor PA [email or web address] PCP - General 03/11/18 04/07/18 Ellen Breen MD [address] [place] [address] [place] [address] PCP - General Internal Medicine 04/08/18 documented as of this encounter Additional Source Comments The information contained in this document represents components of the legal health record. It is not the complete legal health record.[facility]
--- OUTSIDE RECORDS SUMMARY | 2025-08-10 14:55 | XMS_ITS | Encounter Summary ---
Author Organization [facility] Address [address] [place] [address] Phone Care Team Providers Care Wire Technician Name Role Phone Ricardo Breen MD Primary Care Provider Encounter Details Date Type Department Care Team (Late st Contact Info) Description 06/05/2022 Procedure Pass [facility], [address] [address] Social History Tobacco Use Types Packs/Day Years [...] on filedocumented in this encounter Care Teams Wire Technician Relationship Specialty Start Date End Date Ricardo Breen MD [address] [place] [address] Dr CONNOR [address] [place] [address] PCP - General Internal Medicine 04/08/18 documented as of this encounter Additional Source Comments The information contained in this document represents components of the legal health record. It is not the complete legal health record.[facility]
--- OUTSIDE RECORDS SUMMARY | 2025-08-10 14:55 | XMS_ITS | Clinical Summary ---
Author Organization [facility] Address [address] [place] [address] Phone Care Team Providers Care Director Of Sports Medicine Name Role Phone Ricardo Breen MD Primary Care Provider [phone] Social History Tobacco Use Types Packs/Day Years [...] file Insurance MEDICARE PART A & B [facility] MEDICARE SUPPLEMENT MEDICARE PART A & B [facility] MEDICARE SUPPLEMENT MEDICARE PART A & B Member Subscriber Plan / Payer (Ef fective 2008-Present) Name:Jeri Brown Member ID:[id number] Relation to Subscriber:Self Name:Jeri Brown Subscriber ID:[id number] Payer ID:[id number] Group ID:Not on file Type:Medicare Address: [facility] [employer] [place] [id number] MEDICARE SUPPLEMENT MEDICARE PART A & B [facility] MEDICARE SUPPLEMENT MEDICARE PART A & B [facility] MEDICARE SUPPLEMENT MEDICARE PART A & B MEDICARE SUPPLEMENT MEDICARE PART A & B [facility] MEDICARE SUPPLEMENT MEDICARE PART A [place] [id number] [facility] MEDICARE SUPPLEMENT MEDICARE PART A & B [facility] MEDICARE SUPPLEMENT Care Teams Director Of Sports Medicine Relationship Specialty Start Date End Date Ricardo Breen MD [address] [place] [address] PCP - General Internal Medicine 04/08/18 Additional Source Comments The information contained in this document represents components of the legal health record. It is not the complete legal health record.[facility]
== END 2025-08-10 13:44 | disposition home or self-care (01) ==
LOC: HO.HGI 13:00
PROVIDERS: PCP Physician Assistant; Visit Provider Nurse Practitioner Family
DX: R13.19 Other dysphagia (principal); K21.9 Gastro-esophageal reflux disease without esophagitis; K58.2 Mixed irritable bowel syndrome; R11.0 Nausea
CPT/HCPCS: 99214; G2211

== ENCOUNTER → 2025-08-10 12:59 | Outpatient (BNVA) | payer MEDICARE, OTHER, SELFPAY | PROVIDERS: PCP Physician Assistant; Visit Provider Nurse Practitioner Family | DX: K21.9 Gastro-esophageal reflux disease without esophagitis (principal); R13.19 Other dysphagia; R14.0 Abdominal distension (gaseous); K58.2 Mixed irritable bowel syndrome; R11.0 Nausea | CPT/HCPCS: 99212 ==

== ENCOUNTER 2025-08-16 13:51 | Outpatient (REF) | payer MEDICARE, OTHER, SELFPAY ==
[2025-08-16 14:11] LABS: MANUAL DIFF FLAG NO
[2025-08-16 14:18] LABS: Hematocrit 33.4 % (37.0-47.0); Hemoglobin 10.6 g/dl (12.0-16.0); Imm Gran Abs Auto 0.11 X10*3/uL (0.00-0.03); Imm Gran Pct Auto 1.1 % (0.0-0.4); Lymphocytes Absolute Auto 2.7 X10*3/uL (1.2-4.9); Mean Corpuscular HGB Conc 31.7 g/dl (31.0-35.0); Mean Corpuscular Hemoglobin 29.9 pg (27.0-33.0); Mean Corpuscular Volume 94.4 fL (80.0-98.0); NRBC Abs Auto 0.000 X10*3/uL (0.0-0.012); NRBC Pct Auto 0.0 /100WBC (0.0-0.2); Platelet Count 113 X10*3/uL (160-400); Red Blood Count 3.54 X10*6/uL (4.20-5.50); White Blood Count 9.8 X10*3/uL (4.8-10.8)
[2025-08-16 14:32] LABS: Alanine Aminotransferase 10 U/L (0-31); Albumin Level 3.8 g/dL (3.5-5.0); Alkaline Phosphatase 65 U/L (39-117); Anion Gap 15 (12-20); Aspartate Amino Transferase 26 U/L (5-31); Blood Urea Nitrogen 28 mg/dL (9-16); Calcium 9.8 mg/dL (8.4-10.2); Carbon Dioxide 30 mmol/L (22-29); Chloride 100 mmol/L (96-108); Estimated Glomerular Filt Rate 23; Potassium 4.9 mmol/L (3.3-5.1); Sodium 140 mmol/L (135-145); Total Protein 5.9 g/dL (6.5-8.0)
--- OUTSIDE RECORDS SUMMARY | 2025-08-16 22:39 | XMS_ITS ---
Continuity of Care Document (CCD) Created on: August 16, 2025 Kaitlin Ortiz External Reference #: [id number] Sex: Female Author Organization [facility] [address] [place] [address] Phone [phone] Social History Type Date Description Comments Sex [...]
== END 2025-08-16 13:52 | disposition home or self-care (01) ==
LOC: HO.LAB 13:51
PROVIDERS: Internal Medicine Medical Oncology; PCP Physician Assistant; Visit Provider Physician Assistant
DX: C50.919 Malignant neoplasm of unspecified site of unspecified female breast (principal); Z86.19 Personal history of other infectious and parasitic diseases
CPT/HCPCS: 36415; 80053; 83615; 85025; 99212

== ENCOUNTER 2025-08-16 14:33 | Outpatient (AMB) | payer MEDICARE, OTHER, SELFPAY ==
--- OUTSIDE RECORDS SUMMARY | 2025-01-22 06:15 | XMS_ITS ---
Author Organization [facility] Address [address] [place] [address] Care Team Providers Care Long Goods Drier Name Role Phone Cristina Damon Primary Care Provider Jeanette De Leon [phone] Encounters Encounter Location Date Provider Diagnosis [address] [address] 01/22/2025 Jeanette Messer Plan Of Treatment Next Appt Details Provider Name:Jeanette arnold, 11/03/2025 11:30:00 AM, [address] [place], [address], Progress Notes * Kaitlin BROWN MDOB:[birth year] (80 yo F)Acc No.[id number]:01/22/2025 Progress Note Patient: Kaitlin URIBE Provider: Miguel Messer DPM :1945 A ge:79 Y S ex:Female Date:01/22/2025 Address:[facility] [address] [place] Pcp:Cristina Damon Subjective: * Chief Complaints: * * Medical History: Objective: * Vitals: Assessment: Plan: * Treatment: * Images: * The named appointment provid er may or may not be the originator of this progress note, and it is not deemed complete until electronically signed by the appointment provider. Sign off status: Pending * Provider: Miguel Messer DPM Date: 0 01/22/2025 Generated for Jeny ball/Chance/Pallavi on: 1 10/17/2024 11:40 PM EST
--- OUTSIDE RECORDS SUMMARY | 2025-06-18 05:45 | XMS_ITS ---
Author Organization [facility] Address [address] [place] [address] Care Team Providers Care Director Of Retail Merchandising Name Role Phone NelsonCristina edmondson Primary Care Provider Jeanette De Leon Unavailable [phone] Jose Francisco Dietz Unavailable [phone] Medications Medication SIG (Take, Route, Frequency, Duration) [...] Active Encounters Encounter Location Date Provider Diagnosis [facility] [address] [place] [address] 06/18/2025 Jose Francisco Dietz Plan Of Treatment Next Appt Details Provider Name:Jeanette Arnold Prosper arnold, 11/03/2025 11:30:00 AM, [address] [place], [address], Progress Notes * Kaitlin BROWN MDOB:[birth year] (80 yo F)Acc No.[id number]:06/18/2025 Progress Note Patient: Kaitlin URIBE Provider: Sid Dietz DPM :1945 A ge:79 Y S ex:Female Date:06/18/2025 Address:[address] [place] [address], [place] Pcp:Cristina Damon Subjective: * Chief Complaints: * [...] provider. Sign off status: Pending * Provider: Sdi Dietz DPM Date: 1 Generated for Jeny ball/Chance/Pallavi on: 10/17/2024 11:39 PM EST
--- OUTSIDE RECORDS SUMMARY | 2025-06-18 06:15 | XMS_ITS ---
Author Organization [facility] Address [address] [place] [address] Care Team Providers Care Television Analyzer Name Role Phone Cristina Damon Primary Care Provider Unavailabl Jeanette Weinberg Unavailable [phone] Bishnu Cervantes Unavailable [phone] Merino Encounters Encounter Location Date Provider Diagnosis [address] [address] 06/18/2025 Bishnu Cervantes Plan Of Treatment Next Appt Details Provider Name:Jeanette arnold, 11/03/2025 11:30:00 AM, [address] [place] [address], [address], Progress Notes * Kaitlin BROWN MDOB:[birth year] (80 yo F)Acc No.[id number]:06/18/2025 Progress Note Patient: Kaitlin URIBE Provider: Kj Cervantes DPM :1945 A ge:79 Y S ex:Female Date:06/18/2025 Address:[facility] [address] [place] Pcp:Cristina Damon Subjective: * Chief Complaints: * [address] Merino. * Medical History: Objective: * Vitals: Assessment: Plan: * Treatment: * Images: * The named appointment provid er may or may not be the originator of this progress note, and it is not deemed complete until electronically signed by the appointment provider. Sign off status: Pending * Provider: Kj Cervantes DPM Date: 1 Generated for Jeny Maier on: 10/17/2024 11:40 PM EST
--- NOTE | 2025-08-16 14:48 | A.OFFVIS_ITS ---
Vital Signs 08/16/25 14:52 Pulse 60 Pulse Source Pulse Oximeter Pulse Oximetry (%) 93 Oxygen Delivery Method Room Air Intake Visit Reasons: 3 weeks. f/u Allergies amoxicillin (AMOXICILLIN) Allergy (Severe, Verified 08/16/25 14:53) stroke, blood clots ciprofloxacin (From CIPRO) Allergy (Severe, Verified 08/16/25 14:53) ANAPHYLAXIS Iodinated Contrast Media (IV DYE, IODINE CONTAINING CONTRAST ) Allergy (Severe, Verified 08/16/25 14:53) HIVES levofloxacin Allergy (Severe, Verified 08/16/25 14:53) Anaphylaxis liraglutide Allergy (Severe, Verified 08/16/25 14:53) Headache Penicillins Allergy (Severe, Verified 08/16/25 14:53) stroke, blood clots FREYA Inhibitors Allergy (Intermediate, Verified 08/16/25 14:53) Cough ARB-Angiotensin Receptor Antagonist Allergy (Intermediate, Verified 08/16/25 14:53) Cough cefpodoxime Allergy (Intermediate, Verified 08/16/25 14:53) Dizziness, nausea doxazosin Allergy (Intermediate, Verified 08/16/25 14:53) Shortness of Breath fluticasone (Advair Diskus) Allergy (Intermediate, Verified 08/16/25 14:53) Anxiety gabapentin (From Neurontin) Allergy (Intermediate, Verified 08/16/25 14:53) Headache hydralazine Allergy (Intermediate, Verified 08/16/25 14:53) Shortness of Breath latex Allergy (Intermediate, Verified 08/16/25 14:53) Hives linezolid Allergy (Intermediate, Verified 08/16/25 14:53) Nausea and Vomiting meloxicam Allergy (Intermediate, Verified 08/16/25 14:53) Unknown salmeterol (Advair Diskus) Allergy (Intermediate, Verified 08/16/25 14:53) Anxiety Tetanus Vaccines and Toxoid Allergy (Intermediate, Verified 08/16/25 14:53) Swelling torsemide Allergy (Intermediate, Verified 08/16/25 14:53) Shortness of Breath cephalexin (Keflex) Allergy (Mild, Verified 08/16/25 14:53) Nausea HPI HPI 3 weeks. f/u: Details: She feels groin area has cleared [facility] Medical History Type 2 diabetes mellitus with unspecified complications Diabetes PAF (paroxysmal atrial fibrillation) PAF (paroxysmal atrial fibrillation) Suprapubic catheter Neuropathy Osteoarthritis Morbid obesity Allergy to multiple antibiotics Depression Arthritis of left hip Wears dentures Neurogenic urinary bladder disorder History of blood transfusion History of CVA (cerebrovascular accident) Seasonal allergies PONV (postoperative nausea and vomiting) Diabetes with neurologic complications Anemia CLL (chronic lymphocytic leukemia) Sleep apnea Arthritis Fibromyalgia Hypercholesterolemia Hypertension History of bilateral breast cancer Urinary retention with incomplete bladder emptying Surgical History History of cervical discectomy History of open heart surgery (~01/31/24) History of total left hip replacement S/P Botox injection History of suprapubic catheter S/P left breast biopsy History of esophagogastroduodenoscopy (EGD) Hx of colonoscopy (~09/04/21) History of bladder repair surgery History of total hysterectomy S/P breast biopsy, right History of back surgery History of biopsy of bladder Family History Mother Breast cancer Father Heart disease Father Lung cancer Mother Colon cancer Brother Pancreatic cancer Social History Household Members: Spouse Housing: House Housing Other:: has chair lift for second floor access Are you a primary intensive care medicine specialist to a significant other at home: No Do you presently have visiting nurse or other home services: No Alcohol intake: never Comment: patient refused telesiter,removed per pt request Patient Tobacco Use Status: Never used Tobacco e-Cigarette/Vaping Use: Never Used Advance Directives Date on File: 07/30/23 service: No Current occupational status: retired Female Reproductive History Menstrual Age of Menarche: 15 Physical Exam Vital Signs: Last Vital Signs Pulse 60 08/16/25 14:52 Pulse Ox 93 08/16/25 14:52 Oxygen Delivery Method Room Air 08/16/25 14:52 Const General: cooperative HEENT Head: Yes normal to inspection Face and sinus: Yes normal facial exam Mouth: Normal oral and palatal mucosa present Teeth and gingiva: dentition normal Eyes General: appearance normal, both eyes and all related structures Pupils: Equal, round and reactive pupils present Resp Effort & Inspection: normal respiratory effort Cardio Rate: regular rate Rhythm: regular rhythm GI Palpation (GI): Soft to palpation and nontender General: Yes no CVA tenderness Back/Spine/Pelvis Back: no CVA tenderness Skin General skin exam: no rashes or lesions noted Neuro General: moves all extremities Cranial nerves: Yes Equal, round and reactive pupils present Extrem General: Yes normal to inspection Psych Appearance: grossly normal Assessment & Plan Assessment & Plan (1) 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
[2025-08-16 14:52] VITALS: PULSE 60; O2SAT 93
--- OUTSIDE RECORDS SUMMARY | 2025-08-16 23:38 | XMS_ITS | Clinical Summary ---
Author Organization [facility] Address [address] [place] [address] Phone Care Team Providers Care Rope Laying Machine Operator Name Role Phone Ricardo Breen [...] file Insurance MEDICARE PART A & B [facility] MEDICARE SUPPLEMENT MEDICARE PART A & B [facility] MEDICARE SUPPLEMENT MEDICARE PART A & B Member Subscriber Plan / Payer (Ef fective 2008-Present) Name:Jeri Brown Member ID:[id number] Relation to Subscriber:Self Name:Jeri Brown Subscriber ID:[id number] Payer ID:[id number] Group ID:Not on file Type:Medicare Address: [facility] [employer] [place] [id number] MEDICARE SUPPLEMENT MEDICARE PART A & B [facility] MEDICARE SUPPLEMENT MEDICARE PART A & B [facility] MEDICARE SUPPLEMENT MEDICARE PART A & B MEDICARE SUPPLEMENT MEDICARE PART A & B [facility] MEDICARE SUPPLEMENT MEDICARE PART A & [place] [id number] [facility] MEDICARE SUPPLEMENT MEDICARE PART A & B [facility] MEDICARE SUPPLEMENT Care Teams Rope Laying Machine Operator Relationship Specialty Start Date End Date Ricardo Breen MD [address] [place] [id number] PCP - General Internal Medicine 04/08/18 Additional Source Comments The information contained in this document represents components of the legal health record. It is not the complete legal health record.[facility]
--- OUTSIDE RECORDS SUMMARY | 2025-08-16 23:38 | XMS_ITS | Encounter Summary ---
Author Organization [facility] Address [address] [place] [address] Phone Care Team Providers Care Vending Supervisor Name Role Phone Ricardo Breen MD Primary Care Provider Reason for Referral * MRI/CAT Scan - Closed Specialty Diagnoses / Procedures Referred By Yasir t Referred To Contact Radiology Diagnoses Post laminectomy syndrome Procedures MRI Lumbar Spine Rolando Tomas DO Phone: tel: fax: mailto:[email or web address] Referral ID Status Reason Start Date Expiration Date Visits Re quested Visits Authorized [id number] Closed 06/05/2022 06/05/2023 1 1 Encounter Details Date Type Department Care Team (Latest Contact Info) Description 06/05/2022 Transcribe Orders Virtual Department [address] [place] [address] Rolando Tomas DO [address] [place] [address] [email or web address] Post laminectomy syndrome (Primary Dx) Social History [...] region documented in this encounter Care Teams Vending Supervisor Relationship Specialty Start Date End Date Ricardo Breen MD [address] [place] [address] Dr [place], EB[place] [address] PCP - General Internal Medicine 04/08/18 documented as of this encounter Additional Source Comments The information contained in this document represents components of the legal health record. It is not the complete legal health record.[facility]
--- OUTSIDE RECORDS SUMMARY | 2025-08-16 23:38 | XMS_ITS | Encounter Summary ---
Author Organization [facility] Address [address] [place] [address] [place] [address] Phone Care Team Providers Care Paper Steamer Name Role Phone Kathy Connor Primary Care Provider [phone] Ellen Breen MD Primary Care Provider [phone] Reason for Referral * MRI/CAT Scan - Closed Specialty Diagnoses / Procedures Referred By Contiveth t Referred To Contact Radiology Diagnoses Cervical spinal stenosis Procedures MRI Cervical Spine Kathy Connor PA Phone: tel: fax: mailto:[email or web address] Referral ID Status Reason Start Date Expiration Date Visits Re quested Visits Authorized [id number] Closed 03/11/2018 03/11/2019 1 1 Encounter Details Date Type Department Care Team (Late st Contact Info) Description 03/11/2018 Ancillary Orders Virtual Department [address] [place] [address] Kathy Connor PA [address] [place] [phone] [email or web address] Cervical spinal stenosis Social History Tobacco Use [...] advanced degenerative changes as outlined. POS - [id number] Narrative 03/19/2018 4:08 PM EDT COMPARISON: 03/03/2015. [...] advanced degenerative changes as outlined. POS - [id number] Kathy LEONARDO IMG MR XSPECIALTY Final Res ult documented in this encounter Visit Diagnoses Diagnosis Cervical spinal stenosis Spinal stenosis in cervical region Cervical spinal stenosis Spinal stenosis in cervical region documented in this encounter Care Teams Paper Steamer Relationship Specialty Start Date End Date Kathy Connor PA [email or web address] PCP - General 03/11/18 04/07/18 Ellen Breen MD [address] [place] [address] [place] [address] PCP - General Internal Medicine 04/08/18 documented as of this encounter Additional Source Comments The information contained in this document represents components of the legal health record. It is not the complete legal health record.[facility]
--- OUTSIDE RECORDS SUMMARY | 2025-08-16 23:38 | XMS_ITS | Encounter Summary ---
Author Organization [facility] Address [address] [place] [address] Phone Care Team Providers Care Technical Advisor Name Role Phone Ricardo Breen MD Primary Care Provider Encounter Details Date Type Department Care Team (Late st Contact Info) Description 06/05/2022 Procedure Pass [facility], [address] [address] Social History Tobacco Use Types Packs/Day Years [...] filedocumented in this encounter Care Teams Technical Advisor Relationship Specialty Start Date End Date Ricardo Breen MD [address] [place] [address] Dr CONNOR [address] [place] [phone] PCP - General Internal Medicine 04/08/18 documented as of this encounter Additional Source Comments The information contained in this document represents components of the legal health record. It is not the complete legal health record.[facility]
--- OUTSIDE RECORDS SUMMARY | 2025-08-16 23:38 | XMS_ITS | Encounter Summary ---
Author Organization [facility] Address [address] [place] [address] [place] [address] Phone Care Team Providers Care Video Photographer Name Role Phone Ricardo Breen MD Primary Care Provider Reason for Referral * MRI/CAT Scan - Closed Specialty Diagnoses / Procedures Referred By Yasir t Referred To Contact Radiology Diagnoses Lumbar radiculopathy Procedures MRI Lumbar Spine Rolando Tomas DO Phone: tel: fax: mailto:[email or web address] Referral ID Status Reason Start Date Expiration Date Visits Re quested Visits Authorized [id number] Closed 06/29/2021 06/29/2022 1 1 Encounter Details Date Type Department Care Team (Latest Contact Info) Description 06/29/2021 Ancillary Orders Virtual Department [address] [place] [address] Rolando Tomas DO [address] [place] [address] [email or web address] Lumbar radiculopathy Social History Tobacco Use Types [...] be performed for further evaluation. POS - [id number] Narrative 07/13/2021 8:26 AM EDT HISTORY: Chronic [...] could be performedfor further evaluation. POS - [id number] us Rolando Tomas DO IMG MR XSPECIALTY Final Resu lt documented in this encounter Visit Diagnoses Diagnosis Lumbar radiculopathy Thoracic or lumbosacral neuritis or radiculitis, unspecified Lumbar radiculopathy Thoracic or lumbosacral neuritis or radiculitis, unspecified documented in this encounter Care Teams Video Photographer Relationship Specialty Start Date End Date Ricardo Breen MD [address] [place] [address] [place] [address] PCP - General Internal Medicine 04/08/18 documented as of this encounter Additional Source Comments The information contained in this document represents components of the legal health record. It is not the complete legal health record.[facility]
--- OUTSIDE RECORDS SUMMARY | 2025-08-16 23:38 | XMS_ITS | Encounter Summary ---
Author Organization [facility] Address [address] [place] [phone] Phone Care Team Providers Care Milling Machinist Name Role Phone Ricardo Breen MD Primary Care Provider Encounter Details Date Type Department Care Team (Late st Contact Info) Description 06/29/2021 Procedure Pass [facility], [address] [address] Social History Tobacco Use Types Packs/Day Years [...] on filedocumented in this encounter Care Teams Milling Machinist Relationship Specialty Start Date End Date Ricardo Breen MD [address] [place] [address] Dr CONNOR [address] [place] [id number] PCP - General Internal Medicine 04/08/18 documented as of this encounter Additional Source Comments The information contained in this document represents components of the legal health record. It is not the complete legal health record.[facility]
--- OUTSIDE RECORDS SUMMARY | 2025-08-16 23:38 | XMS_ITS | Encounter Summary ---
Author Organization [facility] Address [address] [place] [address] Phone Care Team Providers Care Buttonhole Tacker Name Role Phone Kathy Connor Primary Care Provider [phone] Ricardo Breen MD Primary Care Provider [phone] Encounter Details Date Type Department Care Team (Late st Contact Info) Description 03/11/2018 Procedure Pass [facility], [address] [address] Social History Tobacco Use Types Packs/Day Years [...] on filedocumented in this encounter Care Teams Buttonhole Tacker Relationship Specialty Start Date End Date Kathy Connor PA [email or web address] PCP - General 03/11/18 04/07/18 Ricardo Breen MD [address] [place] [address] Dr [place]T [place], [place] [id number] PCP - General Internal Medicine 04/08/18 documented as of this encounter Additional Source Comments The information contained in this document represents components of the legal health record. It is not the complete legal health record.[facility]
--- OUTSIDE RECORDS SUMMARY | 2025-08-16 23:38 | XMS_ITS | Encounter Summary ---
Author Organization [facility] Address [address] [facility] [address] [place], [place] [id number] Phone Care Team Providers Care Branch General Manager Name Role Phone Ricardo Breen MD Primary Care Provider Encounter Details Date Type Department Care Team (Late st Contact Info) Description 04/08/2018 Ancillary Orders [facility], X-Ray - [address] [address] Brannon Perea MD [address] [place] [address] [email or web address] Cervical spondylosis without myelopathy Social [...] 3 mm of retrolisthesis of C4 on M9zdyhg does not change appreciably in flexion but [...] myelopathy documented in this encounter Care Teams Branch General Manager Relationship Specialty Start Date End Date Ricardo Breen MD [address] [place] [address] Dr [place], [place] [address] PCP - General Internal Medicine 04/08/18 documented as of this encounter Additional Source Comments The information contained in this document represents components of the legal health record. It is not the complete legal health record.[facility]
--- OUTSIDE RECORDS SUMMARY | 2025-08-16 23:38 | XMS_ITS | Encounter Summary ---
Author Organization [facility] Address [address] [place] [address] Care Team Providers Care Client Support Coordinator Name Role Phone Jamshid Ricardo Jayla Primary Care Provider [phone] Encounter Details Date Type Department Care Team (Late st Contact Info) Description 02/10/2025 Documentation [facility] Case Management Department [address] [place] [address] Rachel Anaya Social History Tobacco Use Types Packs/Day Years Used Date Smoking Tobacco: Never Smokeless Tobacco: Never Alcohol Use Standard Drinks/Week Comments Never 0 (1 standard drink = 0.6 oz pur e alcohol) [facility] Utilities Answer Date Recorded [...] Info) Description 08/25/2025 9:15 AM EST Follow-Up [facility] [address] [place] [address] Murali Hooker MD [address] [place] [address] documented as of this encounter Goals Goal Patient Goal Type Associated Problems Recent Progress Patient-Stated? Author Autogenera gaby Goal Care Plan Autogenerated Problem Rachel Hammonds documented as of this encounter Visit Diagnoses Not on filedocumented in this encounter Additional Health Concerns Active Problems Noted Date Diagnosed Date Autogenerated Problem 01/20/2025 documented as of this encounter Care Teams Client Support Coordinator Relationship Specialty Start Date End Date Ricardo Breen [address] [place] [address] [place] [address] PCP - General Internal Medicine 01/26/25 documented as of this encounter
--- OUTSIDE RECORDS SUMMARY | 2025-08-16 23:39 | XMS_ITS | Patient Health Record ---
Author [facility] Address [address] [facility] [place] [address] Care Team Providers Care Fourdrinier Tender Name Role Phone Cristina Damon Primary Care Provider UnavailJeanette Santoro Unavailable [phone] Bishnu Cervantes Unavailable [phone] Sylvia Nguyễn Unavailable [phone] Jose Francisco Dietz Unavailable Allergies Allergen (clinical [...] Problem Acquired hammer toe of right foot (6030312361210595 ) Other hammer toe(s) (acquired), right foot (M20.41) Active confirmed Problem Acquired hammer toe of left foot (7057870346445315 ) Other hammer toe(s) (acquired), left foot (M20.42) Active confirmed Problem Polyneuropathy due to type 2 diabetes mellitus (390066874) Type 2 diabetes mellitus with diabetic polyneuropathy (E11.42) Active confirmed Vital Signs Blood pressure diastolic 67 mm Hg 07/28/2025 Height 5 ft 4 in in 07/28/2025 Blood pressure systolic 136 mm Hg 07/28/2025 Weight 199 lbs 07/28/2025 BMI 34.15 kg/m2 07/28/2025 Procedures Procedure Date Ordered Date Performed Result Body Sit e 46993-RLJVNDN NAIL, 6 OR MORE 03/23/2025 N/A 80006-BUTG SKIN LESIONS, 2 TO 4 03/23/2025 N/A Encounters Encounter Location Date Provider Diagnosis [address] [address] 10/23/2024 Jeanette Messer Type 2 diabetes mellitus with diabetic polyneuropathy E11.42 ; 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 ; Tinea unguium B35.1 ; Pain in right ankle and joints of right foot M25.571 ; Other hammer toe(s) (acquired), right foot M20.41 ; Other hammer toe(s) (acquired), left foot M20.42 and Local edema R60.[address] [address] 03/23/2025 Bishnu Cervantes Type 2 diabetes mellitus with diabetic polyneuropathy E11.42 ; Tinea unguium B35.1 ; Other hammer toe(s) (acquired), right foot M20.41 and Other hammer toe(s) (acquired), left foot M20.[address] [address] 07/28/2025 Jeanette Messer Type 2 diabetes mellitus with diabetic polyneuropathy E11.42 ; Contusion of right great toe without damage to nail, initial encounter S90.111A ; Tinea unguium B35.1 and Other hammer toe(s) (acquired), right foot M20.[address] [address] 10/14/2024 Sylvia Nguyễn [address] [address] 10/28/2024 Jeanette Messer [facility] [address] [place] [address] 12/18/2024 Jeanette Chenga [facility] [address] [address] 12/18/2024 Jeanette Messer [facility] [address] [address] 03/23/2025 Jeanette Messer [facility] [address] [address] 06/18/2025 Jeanette Messer Assessments Encounter Date Diagnosis [...] X ray : Foot, right 3V 10/23/2024 52520-UQYCOIU NAIL, 6 OR MORE 07/16/2024 31477-UEKAZSH NAIL, 6 OR MORE 03/23/2025 11398-SGEFDZT NAIL, 1-5 05/05/2018 89624-WTQZFEN NAIL, 1-5 07/21/2018 87650-HUAEJPA NAIL, 1-5 10/13/2018 46987, J0702- INJECT or DRAIN, JOINT/BUR SA 05/05/2018 23170-CFQG SKIN LESIONS, OVER 4 05/05/20 18 93662-KNJE SKIN LESIONS, OVER 4 07/21/20 18 87684-VNKY SKIN LESIONS, OVER 4 01/13/20 19 01600-FGRN SKIN LESIONS, OVER 4 04/13/20 19 15350-KOHR SKIN LESIONS, OVER 4 10/13/19 19 04688-HEBL SKIN LESIONS, OVER 4 12/06/19 21 86360-XDPB SKIN LESIONS, OVER 4 05/08/20 21 14186-SEJR SKIN LESIONS, OVER 4 10/18/19 22 34868-GBZJ SKIN LESIONS, OVER 4 08/01/20 20 40752-OEFE SKIN LESIONS, OVER 4 03/30/20 20 58551-OHEM SKIN LESIONS, OVER 4 07/13/20 19 74790-VGGU SKIN LESIONS, OVER 4 10/12/19 20 06959-AQVF SKIN LESIONS, 2 TO 4 07/16/20 24 51353-UQDQ SKIN LESIONS, 2 TO 4 02/20/20 18 39828-OMRF SKIN LESIONS, 2 TO 4 03/23/20 21916, B7358-XAXAK/INJECT, JOINT/BURSA 0 10/13/2018 A2439-BLPBBHJC DYSTROPHIC NAILS ANY # A1302-YABYZVIV DYSTROPHIC NAILS ANY # X3286-MCUAYPMT DYSTROPHIC NAILS ANY # O2382-XHOXMWDZ DYSTROPHIC NAILS ANY # D4809-PQYKKTDH DYSTROPHIC NAILS ANY # L6578-EQEZACEB DYSTROPHIC NAILS ANY # K9538-XIVIHQNI DYSTROPHIC NAILS ANY # G0213-JOHPDQSN DYSTROPHIC NAILS ANY # D5896-MYYAJHUN DYSTROPHIC NAILS ANY # 42224- Nail Unit Biopsy 02/19/2018 Next Appt Details Provider Name:Jeanette arnold, 11/03/2025 11:30:00 AM, [address] [facility], [place], [address], Insurance Providers Payer Name Payer Address Payer Phone Subscriber Number Group Number Insured Name Patient Relationship to Insured Coverage Start Date Coverage End Date Medicare National [employer]t [employer] [address] [facility] [place] [phone] [id number] Kaitlin Ortiz Self - patient is the insured [address] [place] [address] [address] [place] [address] [phone] [id number] Kaitlin Ortiz Self - patient is the [...]
--- OUTSIDE RECORDS SUMMARY | 2025-08-16 23:40 | XMS_ITS | Clinical Summary ---
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 (Primary Dx) 06/28/2025 8:58 AM EDT - 06/28/2025 11:59 PM EDT Hospital Encounter [facility] Xray [address] [place], [place] [id number] 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; Left hip pain Discharge Disposition: Home or Self Care (01) 06/28/2025 8:45 AM EDT Follow-Up [facility] [address] [place] [address] ArlynMurali PA Left hip pain (Primary Dx) 06/04/2025 Orders Only [facility] [address] [place] [address] Biotechnician: Adeola Ernandez NP 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, initial encounter (Primary Dx); Staphylococcal infection 05/25/2025 Telephone [facility] [address] [place] [address] Biotechnician: Adeola Ernandez NP 05/25/2025 Telephone [facility] [address] [place] [address] Biotechnician: Adeola Ernandez NP from Last 3 Months [...] oz pur e alcohol) [facility] Utilities Answer Date Recorded In the past 12 months has e [employer], gas, oil, or water [employer] threatened to shut off services in your [...] Info) Description 08/25/2025 9:15 AM EST Follow-Up [facility] [address] [place] [address] Murali Hooker MD [address] [place] [address] Health Maintenance Due Date Last Done Comments [...] Rachel Villatoro Medical Devices Implanted Type Area Violin Repairer Device Identifier Shelf Expiration Date Model / Serial / Lot Cement Radiopaque Full Dose 40gr Simplex P - [id number] Implanted:Qty: 2 on 01/26/2025 by Murali Hooker MD at [facility] Implant Left: Hip JACLYN 07/09/2026 [id number] / / [id number] Insert Acetabular Eccentric 36mm 10 Degree Trident X3 - [id number] Implanted:Qty: 1 on 01/26/2025 by Murali Hooker MD at [facility] Implant Left: Hip JACLYN 04/15/2029 [id number] / / [id number] Head Femoral Anatomic V40 Vitallium Cocr Plus 5gof30ip Lfit - [id number] Implanted:Qty: 1 on 01/26/2025 by Murali Hooker MD at [facility] Implant Left: Hip JACLYN 02/07/2028 [id number] / / [id number] Procedures * Due to [place] state law, this organization might not be [...] Last 3 Months Results * Due to [place] state law, this organization might not be [...] to obtain the completed interpretation. Workstation ID: [id number] Narrative 06/28/2025 11:03 AM EDT COMPARISON: 02/12/2025. FINDINGS AND Resulting Agency Comment [id number] Procedure Note Jose A Luong MD - [...] possible to obtain thecompleted interpretation. Workstation ID: [id number] us Murali Hooker MD IMG XR PROCEDURES Final Res ult * (ABNORMAL) CBC Auto Differential (06/01/2025 1:38 PM EDT) White Blood Cell Count 7.8 3.8 - 10.8 Thousand/ uL 06/02/2025 4:58 AM EDT [employer] [facility] Red Blood Cell Count 3.71(L) 3.80 - 5.10 Million/u L 06/02/2025 4:58 AM EDT [employer] [facility] Hemoglobin 11.2(L) 11.7 - 15.5 g/dL 06/02/2025 4:58 AM EDT [employer] [facility] Hematocrit 35.9 35.0 - 45.0 % 06/02/2025 4:58 AM EDT [employer] [facility] MCV 96.8 80.0 - 100.0 fL 06/02/2025 4:58 AM EDT [employer] [facility] MCH 30.2 27.0 - 33.0 pg 06/02/2025 4:58 AM EDT [employer] [facility] MCHC 31.2(L) 32.0 - 36.0 g/dL 06/02/2025 4:58 AM [employer] Comment: For adults, a slight decrease in the calculated MCHC value (in the range of 30 to 32 g/dL) is most likely not clinically significant; however, it should be interpreted with caution in correlation with other red cell parameters and the patient's clinical condition. RDW 14.3 11.0 - 15.0 % 06/02/2025 4:58 AM EDT [employer] Platelet Count 114(L) 140 - 400 Thousand/ uL 06/02/2025 4:58 AM [employer] MPV 12.2 7.5 - 12.5 fL 06/02/2025 4:58 AM [employer] Absolute Neutrophils 4,774 1,500 - 7,800 cells/uL 06/02/2025 4:58 AM [employer] Absolute Lymphocytes 2,059 850 - 3,900 cells/uL 06/02/2025 4:58 AM [employer] Absolute Monocytes 866 200 - 950 cells/uL 06/02/2025 4:58 AM [employer] [facility] Absolute Eosinophils 62 15 - 500 cells/uL 06/02/2025 4:58 AM [employer] Absolute Basophils 39 0 - 200 cells/uL 06/02/2025 4:58 AM [employer] Neutrophils 61.2 % 06/02/2025 4:58 AM [employer] Lymphocytes 26.4 % 06/02/2025 4:58 AM [employer] Monocytes 11.1 % 06/02/2025 4:58 AM [employer] Eosinophils 0.8 % 06/02/2025 4:58 AM [employer] Basophils 0.5 % 06/02/2025 4:58 AM [employer] Blood Structure of peripheral vein / Unknown 06/01/2025 1:38 PM EDT 06/02/2025 3:22 AM EDT [facility] - 06/02/2025 5:42 AM EDT FASTING:NO Adeola Miller NP LAB BLOOD ORDERABLES Final Res ult [facility] [address], [facility] [place] [address], [place] [phone] [facility] [address] [address] * Sedimentation Rate (06/01/2025 1:38 PM EDT) [facility] Sed Rate By Modified Westergren 25 0 - 30 mm/h 06/02/2025 4:51 AM EDT [facility] Blood Structure of peripheral vein / Unknown 06/01/2025 1:38 PM EDT 06/02/2025 3:54 AM EDT Narrative [facility] - 06/02/2025 5:42 AM EDT FASTING:NO us Adeola Miller HEALTHCARE SCIENCE SPECIALIST LAB BLOOD ORDERABLES Final Res ult Performing Organization Address [facility]/ZIP Co de Phone Number [facility] [address], [place] [address], [place] [phone] [facility] [address] [address] * C-Reactive Protein (06/01/2025 1:38 PM EDT) [facility] C-Reactive Protein 6.6 <8.0 mg/L 06/02/2025 4:10 AM EDT [facility] Blood Structure of peripheral vein / Unknown 06/01/2025 1:38 PM EDT 06/02/2025 2:42 AM EDT Narrative [facility] - 06/02/2025 5:42 AM EDT FASTING:NO us Adeola Miller HEALTHCARE SCIENCE SPECIALIST LAB BLOOD ORDERABLES Final Res ult Performing Organization Address City/[facility]/ZIP Co de Phone Number [facility] [address], [place] [place] [address], [place] [phone] [facility] [address] [address] * (ABNORMAL) Comprehensive Metabolic Panel (06/01/2025 1:38 PM EDT) [facility] Glucose 148(H) 65 - 139 mg/dL 06/02/2025 5:40 AM [facility] Comment: Non-fasting reference interval BUN 28(H) 7 - 25 mg/dL 06/02/2025 5:40 AM [facility] Creatinine 1.80(H) 0.60 - 1.00 mg/dL 06/02/2025 5:40 AM [facility] eGFR 28(L) > OR = 60 mL/min/1. 73m2 06/02/2025 5:40 AM [facility] Bun/Creatinine Ratio 16 6 - 22 (calc) 06/02/2025 5:40 AM [facility] Sodium 138 135 - 146 mmol/L 06/02/2025 5:40 AM [facility] Potassium 4.9 3.5 - 5.3 mmol/L 06/02/2025 5:40 AM [facility] Chloride 101 98 - 110 mmol/L 06/02/2025 5:40 AM [facility] Carbon Dioxide 28 20 - 32 mmol/L 06/02/2025 5:40 AM [facility] Calcium 9.4 8.6 - 10.4 mg/dL 06/02/2025 5:40 AM [facility] Protein, Total 5.9(L) 6.1 - 8.1 g/dL 06/02/2025 5:40 AM [facility] Albumin 4.0 3.6 - 5.1 g/dL 06/02/2025 5:40 AM [facility] Globulin 1.9 1.9 - 3.7 g/dL (calc) 06/02/2025 5:40 AM [facility] Albumin/Globuli n Ratio 2.1 1.0 - 2.5 (calc) 06/02/2025 5:40 AM [facility] Bilirubin, Total 0.5 0.2 - 1.2 mg/dL 06/02/2025 5:40 AM [facility] Alkaline Phosphatase 56 37 - 153 U/L 06/02/2025 5:40 AM [facility] AST 14 10 - 35 U/L 06/02/2025 5:40 AM [facility] ALT 11 6 - 29 U/L 06/02/2025 5:40 AM EDT [facility] Blood Structure of peripheral vein / Unknown 06/01/2025 1:38 PM EDT 06/02/2025 2:42 AM EDT Narrative [facility] - 06/02/2025 5:42 AM EDT FASTING:NO us Adeola Miller HEALTHCARE SCIENCE SPECIALIST LAB BLOOD ORDERABLES Final Res ult [facility] [address] [facility] [address] Floor, [place] [address], [facility] [address] [place] [address] from Last 3 Months Additional Health Concerns Active Problems Noted Date Diagnosed Date Autogenerated Problem 01/20/2025 Insurance MEDICARE [facility] * Guarantor: JERI BROWN Account Type Relation to Patient Date of Phone Billing Address Personal/Family MEDICARE [facility] SUPP Advance Directives * Full Code (Latest Code Status on File) Date Activated Date Inactivated Comments 01/26/2025 10:59 AM 02/05/2025 3:20 PM * Full Code Date Activated Date Inactivated Comments 01/26/2025 5:58 AM 01/26/2025 10:59 AM Care Teams Site Engineer Relationship Specialty Start Date End Date Ricardo Breen [address] [place] [address] [place] [address] PCP - General Internal Medicine 01/26/25
== END 2025-08-16 15:03 | disposition home or self-care (01) ==
LOC: HO.HID 14:33
PROVIDERS: PCP Physician Assistant; Visit Provider Internal Medicine
DX: Z79.2 Long term (current) use of antibiotics (principal); B37.0 Candidal stomatitis
CPT/HCPCS: 99213

== ENCOUNTER → 2025-08-17 06:34 | Day surgery (SDC) | payer MEDICARE, OTHER, SELFPAY ==
--- NOTE | 2025-08-13 11:21 | HO.ANESPROP2 ---
HPI - Anesthesia Eval Consult details Narrative: 80 yr old female for upper endoscopy *EGD cancelled 08/17/25 for wheezing/no air movement on exam, needs pulmo visit Aortic stenosis/atrial fibrillation/CAD-not on anticoagulation. On carvedilol for rate control as well as Lasix. Per PCP note 08/03/25- No weight gain, dyspnea on exertion, orthopnea, edema. See echo below from 2023. 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 Follows with Dr Worthy. On imbrevica Neurogenic bladder disorder: chronic scherer catheter SOB/cough: reported at 08/03/25 PCP visit, pulmo referral in. Pt had wheezing in preop area so EGD was cancelled 08/17/25 PMFSH Active Problems Active Problems: All Active Problems Productive cough (Acute) PAF (paroxysmal atrial fibrillation) (Acute) Type 2 diabetes with nephropathy (Acute) Impetigo (Acute) Oral candidiasis (Acute) Type 2 diabetes mellitus with unspecified complications (Acute) Sore throat (Acute) Cough (Acute) Wheezing (Acute) Periprosthetic fracture around internal prosthetic hip joint (Acute) Fracture of greater trochanter of left femur (Acute) Catheter-associated urinary tract infection (Acute) Closed left hip fracture (Acute) Urinary tract infection (Acute) Closed hip fracture (Acute) assisted (current) use of antibiotics (Acute) Intertriginous candidiasis (Acute) Suprapubic catheter (Acute) CKD (chronic kidney disease) (Acute) Neuropathy (Acute) BPPV (benign paroxysmal positional vertigo) (Acute) Balance disorder (Acute) Infected prosthesis of left hip (Acute) Pre-op exam (Acute) Non-rheumatic aortic stenosis (Acute) Loosening of prosthesis of left hip joint (Acute) Recurrent UTI (Acute) Status post aorto-coronary artery bypass graft (Acute) Status post total hip replacement, left (Acute) Post laminectomy syndrome (Acute) Lumbar spondylosis (Acute) Lumbar degenerative disc disease (Acute) Spinal stenosis of lumbar region with radiculopathy (Acute) Left hip pain (Acute) Enterococcal bacteremia (Acute) Osteopenia (Acute) Menopause (Acute) Well woman exam (Acute) Varicose veins of left lower extremity with inflammation (Acute) Stress incontinence (Acute) COVID-19 (Acute) Urinary urgency (Acute) Nephrolithiasis (Acute) Atherosclerotic cardiovascular disease (Acute) Abnormal myocardial perfusion study (Acute) Asymmetric septal hypertrophy (Acute) Abnormal nuclear cardiac imaging test (Acute) Hyperlipidemia, unspecified (Acute) Essential hypertension (Acute) Shortness of breath (Acute) Precordial chest pain (Acute) Preoperative cardiovascular examination (Acute) Breast cancer (Acute) Complicated urinary tract infection (Acute) Past Medical History Medical History Type 2 diabetes mellitus with unspecified complications Diabetes PAF (paroxysmal atrial fibrillation) PAF (paroxysmal atrial fibrillation) Suprapubic catheter Neuropathy Osteoarthritis Morbid obesity Allergy to multiple antibiotics Depression Arthritis of left hip Wears dentures Neurogenic urinary bladder disorder History of blood transfusion History of CVA (cerebrovascular accident) Seasonal allergies PONV (postoperative nausea and vomiting) Diabetes with neurologic complications Anemia CLL (chronic lymphocytic leukemia) Sleep apnea Arthritis Fibromyalgia Hypercholesterolemia Hypertension History of bilateral breast cancer Urinary retention with incomplete bladder emptying Family History Family History Mother Breast cancer Father Heart disease Father Lung cancer Mother Colon cancer Brother Pancreatic cancer Family history of problems with anesthesia: No Surgical History Surgical History History of cervical discectomy History of open heart surgery (~01/31/24) History of total left hip replacement S/P Botox injection History of suprapubic catheter S/P left breast biopsy History of esophagogastroduodenoscopy (EGD) Hx of colonoscopy (~09/04/21) History of bladder repair surgery History of total hysterectomy S/P breast biopsy, right History of back surgery History of biopsy of bladder History of Problems with Anesthesia: Yes (PONV) Social History Social History Household Members: Spouse Housing: House Housing Other:: has chair lift for second floor access Are you a primary care management specialist to a significant other at home: No Do you presently have visiting nurse or other home services: No Alcohol intake: never Comment: patient refused telesiter,removed per pt request Patient Tobacco Use Status: Never used Tobacco e-Cigarette/Vaping Use: Never Used Advance Directives: No Advance Directives Information Provided: Yes Advance Directives Date on File: 07/30/23 service: No Current occupational status: retired Meds Allergies Allergy/AdvReac Type Severity Reaction Status Date / Time amoxicillin (AMOXICILLIN) Allergy Severe stroke, Verified 08/16/25 14:53 blood clots ciprofloxacin (From CIPRO) Allergy Severe ANAPHYLAXIS Verified 08/16/25 14:53 Iodinated Contrast Media (IV Allergy Severe HIVES Verified 08/16/25 14:53 DYE, IODINE CONTAINING CONTRAST ) levofloxacin Allergy Severe Anaphylaxis Verified 08/16/25 14:53 liraglutide Allergy Severe Headache Verified 08/16/25 14:53 Penicillins Allergy Severe stroke, Verified 08/16/25 14:53 blood clots FREYA Inhibitors Allergy Intermediate Cough Verified 08/16/25 14:53 ARB-Angiotensin Receptor Allergy Intermediate Cough Verified 08/16/25 14:53 Antagonist cefpodoxime Allergy Intermediate Dizziness, Verified 08/16/25 14:53 nausea doxazosin Allergy Intermediate Shortness Verified 08/16/25 14:53 of Breath fluticasone (Advair Diskus) Allergy Intermediate Anxiety Verified 08/16/25 14:53 gabapentin (From Neurontin) Allergy Intermediate Headache Verified 08/16/25 14:53 hydralazine Allergy Intermediate Shortness Verified 08/16/25 14:53 of Breath latex Allergy Intermediate Hives Verified 08/16/25 14:53 linezolid Allergy Intermediate Nausea and Verified 08/16/25 14:53 Vomiting meloxicam Allergy Intermediate Unknown Verified 08/16/25 14:53 salmeterol (Advair Diskus) Allergy Intermediate Anxiety Verified 08/16/25 14:53 Tetanus Vaccines and Toxoid Allergy Intermediate Swelling Verified 08/16/25 14:53 torsemide Allergy Intermediate Shortness Verified 08/16/25 14:53 of Breath cephalexin (Keflex) Allergy Mild Nausea Verified 08/16/25 14:53 Home Medications ?Medication ?Instructions ?Recorded ?Confirmed ?Last Taken ?Type citalopram 20 mg tablet 20 mg PO DAILY 07/21/20 08/03/25 06/10/25 History duloxetine 60 mg capsule,delayed 60 mg PO DAILY 07/21/20 08/03/25 06/10/25 History release metformin 1,000 mg tablet 1,000 mg PO BID 04/19/21 08/03/25 06/10/25 History carvedilol 25 mg tablet 25 mg PO BID 05/31/21 08/03/25 06/10/25 History blood sugar diagnostic (Accu-Chek #10 ea 09/04/22 07/27/25 Unknown History Guide test strips) coenzyme Q10 100 mg capsule 100 mg PO BEDTIME 01/03/23 08/03/25 06/09/25 History (CoQ-10) magnesium 250 mg tablet 250 mg PO BEDTIME 01/03/23 08/03/25 06/09/25 History multivitamin 1 tab PO DAILY 01/03/23 08/03/25 06/10/25 History pregabalin 150 mg capsule 150 mg PO BID 01/03/23 08/03/25 06/10/25 History polyethylene glycol 3350 17 17 g PO DAILY PRN Constipation 10/28/24 08/03/25 Unknown History gram/dose oral powder (Miralax) ferrous sulfate 325 mg (65 mg 325 mg PO DAILY 11/04/24 08/03/25 06/10/25 History iron) tablet (iron) furosemide 20 mg tablet 40 mg PO DAILY PRN Edema 04/15/25 08/03/25 Unknown History lancets 28 gauge (FreeStyle #100 ea 04/15/25 07/27/25 Unknown History Lancets) ascorbic acid (vitamin C) 1,000 mg 1,000 mg PO DAILY 06/11/25 08/03/25 06/10/25 History tablet atorvastatin 80 mg tablet 80 mg PO BEDTIME 06/11/25 08/03/25 06/09/25 History aspirin 325 mg tablet 325 mg PO DAILY 07/06/25 08/03/25 Unknown History amlodipine 10 mg tablet 5 mg PO DAILY 07/13/25 08/03/25 Unknown History neomycin 3.5 mg/g-polymyxin B ophthalmic (eye) 08/03/25 08/03/25 Unknown History 10,000 unit/g-dexameth 0.1 % eye oint spironolactone 25 mg tablet 25 mg PO DAILY 08/03/25 08/03/25 Unknown History fluconazole 150 mg tablet 75 mg PO DAILY 08/10/25 Unknown History Exam Pertinent Lab Results Pertinent Lab Results: Laboratory Tests 07/27/25 08/02/25 13:41 12:41 WBC 11.4 H RBC 3.31 L Hgb 9.9 L Hct 31.8 L Plt Count 113 L Sodium 144 Potassium 4.8 BUN 27 H Creatinine 1.61 H Narrative Narrative: EKG 06/2025 Vent. Rate : 61 BPM Atrial Rate : 61 BPM P-R Int : 156 ms QRS Dur : 132 ms QT Int : 490 ms P-R-T Axes : 67 -42 80 degrees QTcB Int : 493 ms Sinus rhythm with occasional Premature ventricular complexes Left axis deviation Left ventricular hypertrophy with QRS widening ( R in aVL , Melvin product ) T wave abnormality, consider lateral ischemia Abnormal ECG When compared with ECG of 29-Jan-2023 12:36, Premature ventricular complexes are now Present QRS duration has increased Non-specific change in ST segment in Anterior leads ECHO 03/2024 Conclusions: - 1. Normal LV ejection fraction of 60-65% with impaired relaxation filling pattern with underlying regional wall motion abnormality consistent with coronary artery disease 2. Calcific aortic valve changes noted with mild aortic regurgitation and mild aortic stenosis; The mean gradient is 8 mmHg. The aortic valve area is 1.80 cm2. 3. Upper limits of normal ascending aortic size at 3.5 cm 4. Normal RV systolic pressure 5. Trivial pericardial effusion Assessment and Plan Final Anesthetic Review Family History of Problems with Anesthesia: No History of Problems with Anesthesia: Yes (PONV)
--- NOTE | 2025-08-17 07:16 | PC.NURSE ---
Patient stated that she has noted wheezing in the last two weeks with extra movement and her pcp had given her a referral to pulmonology - all per pt. Patient lungs were extremely diminished throughout with light expiratory wheezes noted throughout and dr. smith auscultated as well. Dr. Smith educated patient that it is not safe for an EGD today and that she should f/u with pulmonology as ordered prior to next scheduled egd. No SOB noted with movement today. Sats 95 % RA. 166/50, P 54. R 16. Spouse in waiting room and educated of all above. Both verbalize understanding.
--- NOTE | 2025-08-17 07:23 | PC.NURSE ---
No IV was placed. patient left with all belongings. Dentures had never been removed as patient just arrived.
== END ==
LOC: HO.SSS 06:34
PROVIDERS: PCP Physician Assistant; Visit Provider Internal Medicine Gastroenterology
DX: R13.10 Dysphagia, unspecified (principal); Z53.09 Procedure and treatment not carried out because of other contraindication; R06.2 Wheezing